=== PATIENT | male | born 1960 | race Caucasian/White ===

== ENCOUNTER 2023-04-26 12:12 | Outpatient (OUT) | payer OTHER, MEDICARE, SELFPAY ==
--- NOTE | 2023-04-26 12:19 | PM.CN ---
Consult Note: HPI Data of Consult Patient: known to practice within the last 3 years Consult date: 04/26/23 Primary Care Provider: HERB CHOWDARY Consult Narrative Reason for consult: back pain Narrative: Tariq is here for f/u of back pain. Pain is located left lower back. worse with standing and walking. He had second dx MBB left L4/5, L5/S1 on 04/10/23. He received 100% relief of pain for several hours after procedure. No radiculopathy . No new sensorimotor sx or new bowel or bladder issues. He would like to proceed with RFA. Procedure discussed in detail. He prefers no sedation. He also has right knee pain. He has had steroid injectiond without relief. He states orthopedics told him the gel injection would not work for him. We did discuss the GNB procedure and educational material was given. He would like to possibly proceed with this in several weeks. cc:: CC: AKILA RIVERA NP Review of Systems ROS Status of ROS 10 or more systems reviewed and unremarkable except as noted in history and below Musculoskeletal Reports: back pain and extremity pain Exam Constitutional Documenting provider has reviewed patient's vital signs: yes Common normals: no apparent distress, oriented x3, no limitations, healthy appearing, alert and well nourished General appearance: cooperative, comfortable and well developed Orientation/consciousness: Yes awake, Yes oriented to person, Yes oriented to place and Yes oriented to time HENDE Common normals: normocephalic, nasal mucous membranes and turbinates normal and moist oral mucous membranes Respiratory Common normals: normal respiratory effort, no retractions and no use of accessory muscles Effort & inspection: able to speak in complete sentences and symmetric chest movement Back & Pelvis Lumbar spine/lower back: normal to inspection, ROM limited, lumbar spinal tenderness, paraspinal muscle tenderness, paraspinal muscle spasm, straight leg raise negative bilaterally and other soft tissue findings (positive facet loading left) Other lumbar soft tissue findings laterality: left Other: muscle strength 5/5 bilat with intact sensation bilat LE Extremity Common normals: normal capillary refill and no pedal edema Right lower extremity: knee joint (right medial knee pain worse with ROM) Assessment and Plan Assessment and Plan (1) Knee osteoarthritis: (2) Lumbar spondylosis: Plan thermal RFA lumbar L4/5, L5/S1 left under fluoroscopy without sedation may benefit from future right GNB
== END 2023-04-26 12:13 ==
PROVIDERS: PCP Internal Medicine; Visit Provider Nurse Practitioner
DX: M47.816 Spondylosis without myelopathy or radiculopathy, lumbar region (principal); M17.11 Unilateral primary osteoarthritis, right knee
CPT/HCPCS: G0463

== ENCOUNTER 2023-05-29 11:02 | Outpatient (OUT) | payer OTHER, MEDICARE, SELFPAY ==
[2023-05-30 05:08] LABS: PSA, Free 2.68 ng/mL; Prostate Specific Ag 11.3 ng/mL (0.0-4.0)
== END 2023-05-29 11:03 | disposition home or self-care (01) ==
LOC: LAB 11:04
PROVIDERS: PCP Internal Medicine; Visit Provider Urology
DX: R97.20 Elevated prostate specific antigen [PSA] (principal)
CPT/HCPCS: 36415; 84153; 84154

== ENCOUNTER 2023-06-05 08:26 | Day surgery (SDC) | payer OTHER, MEDICARE, SELFPAY ==
[2023-06-05 08:39] VITALS: BP 158/107; PULSE 74; RESP 16; TEMP 36.8; O2SAT 97
[2023-06-05] MEDS: 0.9 % SODIUM CHLORIDE 500 ML 50 ML IV (08:53)
[2023-06-05] MEDS: METHYLPREDNISOLONE ACETATE 40 MG/ML VIAL INJ (09:37)
[2023-06-05] MEDS: BUPIVACAINE HCL 0.25% PF 25 MG/10 ML VIAL 4 ML INJ (09:37)
[2023-06-05] MEDS: LIDOCAINE HCL 2% 400 MG/20 ML MDV 8 ML INJ (09:37)
[2023-06-05 09:46] VITALS: BP 105/61; PULSE 75; RESP 17; O2SAT 94
[2023-06-05 09:49] VITALS: BP 105/66; PULSE 77; RESP 14; O2SAT 94
--- NOTE | 2023-06-05 10:15 | W.PM.PROCNOT ---
Date of procedure: 06/05/23 Pre-op diagnosis: Lumbar Spondylosis Post-op diagnosis: same Procedure: Left Lumbar 4/5 and 5/S1 Radiofrequency ablation Under fluoroscopic guidance Rhizotomy was created using radio frequency ablation at 80?C for 90 seconds 1 to 2 lesions created at each site. Post lesioning injection of 2 mL each of 0.25% Marcaine and 2% lidocaine with Depo-Medrol 40mg. 0.5 to 1 mL injected at each site IV in place Intravenous fluids: NS at KVO Anesthesia local 2% lidocaine Anesthesia Other: MAC Timeout process compliant After informed consent obtained.Patient brought to the procedure room placed in the prone position skin overlying the area was prepped and draped in a sterile fashion using betadine. 25 gauge needle was used to create a skin wheal over each of the targeted areas utilizing 2% lidocaine. A rhizotomy needle with a 10 mm active tip was inserted over each of the anesthetized areas and directed towards each of the medial branches accomplished under fluoroscopic guidance. after encountering the same we had positive sensory stimulation, negative motor stimulation was noted. lesions were then created. Post lesioning, steroid solution was injected needles removed. Patient was transferred to recovery room in stable condition to be discharged home after meeting criteria. Anesthesia: MAC Surgeon: Svetlana Blount Condition: stable
== END 2023-06-05 10:08 | disposition home or self-care (01) ==
PROVIDERS: PCP Internal Medicine; Visit Provider Anesthesiology Pain Medicine
DX: M47.816 Spondylosis without myelopathy or radiculopathy, lumbar region (principal)
CPT/HCPCS: 64635; 64636; J1030; J2704

== ENCOUNTER 2023-07-04 10:29 | Outpatient (OUT) | payer OTHER, MEDICARE, SELFPAY ==
--- NOTE | 2023-07-04 11:21 | P.CN_ITS ---
Consult Note: HPI Data of Consult Patient: known to practice within the last 3 years Requesting Physician: Michell Kennedy NP Primary Care Provider: Sp Washington DO Consult Narrative Reason for consult: f/u on left L4/5 L5/S1 RFA Narrative: Tariq Real a pleasant 63 year old male presents for follow up on low back pain and right knee pain. Patient had a left sided L4/5 L5/S1 RFA on 06/05/23 and is reporting 90% ongoing pain relief with increase in ROM, ability to stand for longer time, ability to walk further without intense pain since ablation. Patient continues to have right thigh and knee pain, has a history of femur surgery with hardware and has followed with Orthopedics in the past for knee injections without pain relief. Patient was told he is not a candidate for gel injections in that knee and would like to avoid surgery. cc:: CC: Michell Kennedy NP Review of Systems ROS Status of ROS 10 or more systems reviewed and unremarkable except as noted in history and below Musculoskeletal Reports: extremity pain PFSH PFSH Medical History (Updated 05/24/23 @ 13:58 by Herlinda Caba) Surgical History Meds Home Medications and Allergies Home Medications Medication Instructions Recorded Confirmed Type amlodipine 5 mg tablet 5 mg PO DAILY 04/27/23 06/05/23 History baclofen 10 mg tablet 10 mg PO BID 04/27/23 06/05/23 History coQ10 (liposomal ubiquinol) 100 100 mg PO QDAY 04/27/23 06/05/23 History mg/mL oral liquid gabapentin 100 mg capsule 100 mg PO DAILY 04/27/23 06/05/23 History insulin aspart U-100 100 unit/mL 16 unit subcut TID 04/27/23 06/05/23 History (3 mL) subcutaneous pen (Novolog FlexPen U-100 Insulin aspart) insulin glargine 100 unit/mL (3 60 unit subcut QPM 04/27/23 06/05/23 History mL) subcutaneous pen (Basaglar KwikPen U-100 Insulin) losartan 100 mg tablet 100 mg PO DAILY 04/27/23 06/05/23 History melatonin 10 mg tablet 15 mg PO DAILY 04/27/23 06/05/23 History metformin 1,000 mg tablet 1,000 mg PO BID 04/27/23 06/05/23 History multivitamin 1 tab PO DAILY 04/27/23 06/05/23 History pyridostigmine bromide 60 mg tablet 60 mg PO BID 04/27/23 06/05/23 History sertraline 100 mg tablet 100 mg PO DAILY 04/27/23 06/05/23 History tadalafil 10 mg tablet 10 mg PO DAILY PRN sexual activity 04/27/23 06/05/23 H istory Allergies Allergy/AdvReac Type Severity Reaction Status Date / Time morphine Allergy Unknown ITCHING Verified 04/27/23 08:29 pioglitazone [From Actos] Allergy Unknown Rash Verified 04/27/23 08:29 exenatide [From Byetta] AdvReac Intermediate Vomiting Verified 04/27/23 08:29 diazepam [From Valium] AdvReac Vomiting Verified 04/27/23 08:29 Exam Constitutional Documenting provider has reviewed patient's vital signs: yes Common normals: no apparent distress, oriented x3, healthy appearing, alert and well nourished General appearance: cooperative Nutritional appearance: overweight HENMT Common normals: normocephalic Head and scalp: normocephalic Mouth: oral and palatal mucosa normal Eye Common normals: PERRL Pupil: PERRL Neck & C-Spine Common normals: full ROM General: normal visual inspection Chest Common normals: inspection of chest normal Respiratory Common normals: normal respiratory effort, no retractions and no use of accessory muscles Back & Pelvis Thoracic spine/upper back: normal to inspection and thoracic ROM normal Lumbar spine/lower back: normal to inspection, lumbar ROM normal and pain with ROM (mild pain with facet loading manuever) Extremity Common normals: normal to inspection Right lower extremity: knee joint (limited ROM, pain with ROM and weight bearing 5/5 strength) Neuro Common normals: oriented x3, CN's II-XII intact bilaterally, moves all extremities, no focal motor deficits, no sensory deficits noted, deep tendon reflexes 2+ bilaterally and gait normal Sensorium/orientation: alert Motor exam: strength 5/5 throughout and no movement abnormalities noted Psych Common normals: mental status grossly normal, thought process normal, cooperative, affect normal, speech normal and activity/motor behavior normal Speech: normal speech Thought process: normal thought process Assessment and Plan Assessment and Plan (1) Knee osteoarthritis: Assessment and Plan: chronic right knee pain The patient has had over 3 months of moderate to severe right knee pain with functional impairment and inadequate response to conservative care including NSAIDS (unless there are contraindication such as concurrent blood thinners), multiple oral or topical pain medications, and home exercise program/physical therapy.?Patient has completed >6 weeks of guided home exercise program and/or formal physical therapy program without relief of their symptoms.? proceed with right genicular nerve block (2) Lumbar spondylosis: Assessment and Plan: Patient had a left sided L4/5 L5/S1 RFA on 06/05/23 and is reporting 90% ongoing pain relief with increase in ROM, ability to stand for longer time, ability to walk further without intense pain since ablation. -can repeat if beneficial >6 months as discussed with pt
== END 2023-07-04 10:30 | disposition home or self-care (01) ==
LOC: PM 10:30
PROVIDERS: PCP Internal Medicine; Visit Provider Nurse Practitioner
DX: M17.11 Unilateral primary osteoarthritis, right knee (principal); M25.561 Pain in right knee
CPT/HCPCS: G0463

== ENCOUNTER 2023-10-24 11:34 | Outpatient (OUT) | payer OTHER, MEDICARE, SELFPAY | END 2023-10-24 11:35 | disposition home or self-care (01) | LOC: PST 11:35 | PROVIDERS: PCP Internal Medicine; Visit Provider Surgery | DX: Z01.818 Encounter for other preprocedural examination (principal); Z86.010 Personal history of colon polyps; D64.9 Anemia, unspecified; R14.0 Abdominal distension (gaseous) ==

== ENCOUNTER 2023-10-31 07:00 | Day surgery (SDC) | payer OTHER, MEDICARE, SELFPAY ==
--- NOTE | 2023-10-31 | OP_ITS ---
OPERATION DATE: 10/31/2023 PREOPERATIVE DIAGNOSIS: Iron deficiency anemia, personal history of colon polyps. POSTOPERATIVE DIAGNOSIS: Small antral ulceration, as well as polyp at GE junction and ascending colon polyp, 4 mm. PROCEDURE: EGD with biopsy of polyp at GE junction. Colonoscopy to cecum with cold snare polypectomy x1 for a 4 mm ascending colon polyp. SURGEON: Duran Franklin M.D. ANESTHESIA: Monitored anesthesia care. ESTIMATED BLOOD LOSS: Less than 1 mL. INDICATIONS AND CONSENT: Patient is a 63-year-old male with a personal history of colon polyps as well as mild anemia. Indications, risks, benefits, alternatives of proceeding with EGD and colonoscopy were explained extensively to the patient, including the risks of bleeding, aspiration, esophageal/gastric/duodenal or colonic perforation or anesthetic complications. All of his questions were answered. Informed consent was obtained. PROCEDURE: Patient brought to the operating room, placed in the left lateral decubitus position. Monitored anesthesia care was provided. Bite block was placed in the patient?s mouth. Scope was inserted into the oropharynx. Under direct visualization, it was advanced into the esophagus, past the cricopharyngeus, down to the stomach. The stomach was insufflated with air. The pylorus was traversed down to the descending portion of the duodenum. There was no evidence of duodenitis or ulceration. There was no scarring within the pyloric channel. Scope was pulled back into the stomach and retroflexed. There was no significant hiatal hernia. Within the antrum, there was noted to be a small, superficial ulceration with no active bleeding or old blood. The GE junction was noted at approximately 40 cm. There was a polypoid area right at the GE junction. No evidence of Kimbrough?s changes or esophagitis. Biopsy of this was obtained with cold biopsy forceps with good hemostasis. The remainder of the esophagus was unremarkable. The scope was then withdrawn. Patient tolerated procedure well, was then positioned for colonoscopy. Rectal exam was performed, which showed no masses or blood. The scope was then inserted into the anal canal. Under direct visualization, it was advanced. With the aid of abdominal compression, it was advanced to the cecum where cecal markings were clearly identified. There was noted to be a good prep. Upon withdrawal of the scope, mucosal surfaces were carefully examined. Within the ascending colon, there was noted to be a 4 mm sessile polyp that was removed with cold snare with good hemostasis. There were no other mass lesions or polyps. No significant diverticulosis. The scope was retroflexed in the anal canal. There were noted to be some prominent rectal veins, no significant hemorrhoidal disease. The scope was then withdrawn. The patient tolerated procedure well, was sent to recovery room in good condition. Follow up colonoscopy likely in five years, due to the polyp and history of polyps. CC: Dr. Mp SEARS
[2023-10-31 07:05] VITALS: BP 154/99; PULSE 89; RESP 20; TEMP 35.8; O2SAT 98; BMI 32.1
[2023-10-31] MEDS: LACTATED RINGER'S SOLUTION 1,000 ML 50 ML IV (07:30)
[2023-10-31 09:07] VITALS: BP 87/46; PULSE 78; RESP 16; O2SAT 95
[2023-10-31 09:22] VITALS: BP 123/80; PULSE 87; RESP 16; O2SAT 97
[2023-10-31 09:37] VITALS: BP 128/85; PULSE 84; RESP 16; O2SAT 100
== END 2023-10-31 09:37 | disposition home or self-care (01) ==
PROVIDERS: PCP Internal Medicine; Visit Provider Surgery
PROC: (CPT 43239; principal; 2023-10-31 08:25)
DX: Z86.010 Personal history of colon polyps (principal); R14.0 Abdominal distension (gaseous); D50.9 Iron deficiency anemia, unspecified; K25.9 Gastric ulcer, unspecified as acute or chronic, without hemorrhage or perforation; K63.5 Polyp of colon; Z85.51 Personal history of malignant neoplasm of bladder; N40.1 Benign prostatic hyperplasia with lower urinary tract symptoms; N18.9 Chronic kidney disease, unspecified; E11.22 Type 2 diabetes mellitus with diabetic chronic kidney disease; R97.20 Elevated prostate specific antigen [PSA]; N52.9 Male erectile dysfunction, unspecified; R31.0 Gross hematuria; Z87.442 Personal history of urinary calculi; E78.5 Hyperlipidemia, unspecified; G20.A1 Parkinson's disease without dyskinesia, without mention of fluctuations; G47.33 Obstructive sleep apnea (adult) (pediatric); M47.816 Spondylosis without myelopathy or radiculopathy, lumbar region; E66.9 Obesity, unspecified; E11.42 Type 2 diabetes mellitus with diabetic polyneuropathy; R33.9 Retention of urine, unspecified; Z68.33 Body mass index [BMI] 33.0-33.9, adult; Z79.84 Long term (current) use of oral hypoglycemic drugs; Z79.899 Other long term (current) drug therapy; Z79.4 Long term (current) use of insulin
CPT/HCPCS: 43239; 45385; 88305; J2704

== ENCOUNTER 2024-01-26 09:15 | Outpatient (OUT) | payer OTHER, MEDICARE, SELFPAY ==
--- OUTSIDE RECORDS SUMMARY | 2024-01-26 09:19 | XMS_ITS | CCD ---
Author Name Unknown Address [address] [place] [address] Organization [facility] Care Team Providers Care 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 Name Role Phone PROVIDER, UNKNOWN Attending Unavailable PROVIDER, UNKNOWN Admitting Unavailable CARTER GODFREY Referring Unavailable SP CHOWDARY Primary Care Physician Unavailable Primary Care Provider Unavailrigoberto salmon Unavailable Primary Care Provider UnavailNOELLE Montero Attending Unavailable PELON COLES Referring Unavailable Sp Chowdary DO Primary Care Provider NOELLE VEGA Attending Unavailable ROBERTAINI, NOELLE Admitting Unavailable ZAMPINI, NOELLE Referring Unavailable ZAMPINI, NOELLE Referring Unavailable ZAMPINI, NOELLE Referring Unavailable SILVIA, NOELLE Attending Unavailable SP CHOWDARY Primary Care Unavailable Unavailable Primary Care Provider UnavailAlfonzo Read II Unavailable Sp Chowdary Unavailable MITCHSHMIPATHY ., LIANA Attending Britni vanatible ELLIE ., LIANA Admitting Britni DR SP Benítez Primary Care Unavailable Gema Otto Consulting Unavailable LUPEMIPATHY ., LIANA Consulting Britni vanatible EPI, DR SNOWDEN Primary Care Unavailable PAY ., DR WASHINGTON Admitting Unavailable PAY ., DR WASHINGTON Attending Unavailable PAY ., DR WASHINGTON Consulting Unavailable COLES ., DR BRID Admitting Unavailable COLES ., DR BIRD Attending Unavailable EPI, DR SNOWDEN Primary Care Unavailable EPI, DR SNOWDEN Primary Care Unavailable COLES ., DR BIRD Admitting Unavailable COLES ., DR BIRD Attending Unavailable COLES ., DR BIRD Consulting Unavailable WEST, DR JI Smallwood Consulting Unavailable COLES ., DR BIRD Consulting Unavailable COLES ., DR BIRD Attending Unavailable COLES ., DR BIRD Admitting Unavailable EPI, DR SNOWDEN Primary Care Unavailable HALKER ., RADHA Attending Unavailable HALKER ., RADHA Admitting Unavailable BALL, DR SNOWDEN Primary Care Unavailable COLES ., DR BIRD Consulting Unavailable COLES ., DR BIRD Attending Unavailable COLES ., DR BIRD Admtulio Unavailable BALL, DR SNOWDEN Primary Care Unavailable GARCIATAY Consulting Unavailable MCCORNACKGEMA Consulting Unavailable COLES ., DR BIRD Consulting Unavailable MISC, DR WILLIAMSON Admitting Unavailable RUELAS, DR RADHA Salmon Primary Care Unavailable MISC, DR WILLIAMSON Attending Unavailable MISC, DR WILLIAMSON Consulting Unavailable ZiebGema dallas Consulting Unavailable BALL, DR SNOWDEN Primary Care Unavailable COLES ., DR BIRD Consulting Unavailable COLES ., DR BIRD Admitting Unavailable COLES ., DR BIRD Attending Unavailable ZiebGema dallas Consulting Unavailable COLES ., DR BIRD Consulting Unavailable COLES ., DR BIRD Attending Unavailable COLES ., DR BIRD Admitting Unavailable BALL, DR SNOWDEN Primary Care Unavailable ZiebGema dallas Consulting Unavailable BALL, DR SNOWDEN Admitting Unavailable BALL, DR SNOWDEN Attending Unavailable BALL, DR SNOWDEN Consulting Unavailable BALL, DR SNOWDEN Primary Care Unavailable COLES ., DR BIRD Attending Unavailable COLES ., DR BIRD Consulting Unavailable COLES ., DR BIRD Admtulio Unavailable BALL, DR SNOWDEN Primary Care Unavailable JEFFERSON, DR JI Smallwood Consulting Unavailable HALKER ., RADHA Attending Unavailable HALKER ., RADHA Consulting Unavailable BALL, DR SNOWDEN Primary Care Unavailable HALKER ., RADHA Admitting Unavailable LAKSHMIPATHY ., NARENDPARVEEN Attending Britni vailable LAKSHMIPATHY ., NARENDRANATH Consulting Britni vailable LAKSHMIPATHY ., LIANA Admitting Britni vailable BALL, DR SNOWDEN Primary Care Unavailable LAKSHMIPATHY ., NARENDRANATH Attending Britni vailable LAKSHMIPATHY ., NARENDRANATH Consulting Britni vailable LAKSHMIPATHY ., NARENDDANAYATH Admitting Britni vailable BALL, DR SNOWDEN Primary Care Unavailable COLES ., DR BIRD Attending Unavailable COLES ., DR BIRD Consulting Unavailable COLES ., DR BIRD Admtulio Unavailable BALL, DR SNOWDEN Primary Care Unavailable Gema Otto Consulting Unavailable RUELAS, DR RADHA Salmon Admitting Unavailable RUELAS, DR RADHA Salmon Attending Unavailable RUELAS, DR RADHA Salmon Primary Care Unavailable ZiebGema dallas Consulting Unavailable RUELAS, DR RADHA Salmon Consulting Unavailable BALL, DR SNOWDEN Primary Care Unavailable COLES ., DR BIRD Admitting Unavailable COLES ., DR BIRD Attending Unavailable COLES ., DR BIRD Consulting Unavailable WEST, DR JI Smallwood Consulting Unavailable AGUBOSIM, DAT Consulting Unavailable DORKOSKIE, CATRINA Consulting Unavailable BALL, DR SNOWDEN Primary Care Unavailable COLES ., DR BIRD Consulting Unavailable COLES ., DR BIRD Admitting Unavailable COLES ., DR BIRD Attending Unavailable Zieber, Gema Consulting Unavailable DORKOSKIE, CATRINA Consulting Unavailable LANGENBERG, REYNALDO Consulting Unavailable MCCORNACK, GEMA Consulting Unavailable BALL, DR SNOWDEN Primary Care Unavailable COLES ., DR BIRD Consulting Unavailable COLES ., DR BIRD Admtulio Unavailable COLES ., DR BIRD Attending Unavailable WEST, DR JI Smallwood Consulting Unavailable LAKSHMIPATHY ., NARENDRANATH Attending Britni vailable LAKSHMIPATHY ., NARENDRANATH Consulting Britni vailable LAKSHMIPATHY ., NARENDDANAYATH Admitting Britni vailable BALL, DR SNOWDEN Primary Care Unavailable Epi, DO Snowden Primary Care Provider MD Pelon Coles Attending Provider [phone] Sp Chowdary Primary Care Unavailable [place], Alfonzo Adrian Attending Unavailabl e [place], Alfonzo Adrian Admitting Unavailabl e Ball, Sp Primary Care Unavailable [place], Alfonzo Adrian Attending Unavailabl e [place], Alfonzo Adrian Admitting Unavailabl e Coles, Pelon Attending Unavailable Coles, Pelon Admitting Unavailable Ball, Sp Primary Care Unavailable COLES, Pelon Mujica Attending Unavailable COLES, Pelon Mujica Referring Unavailable COLES, Pelon Mujica Admitting Unavailable COLES, Pelon Mujica Attending Unavailable COLES, Pelon Mujica Admitting Unavailable NILL, Duran Mujica Attending Unavailable NILL, Duran Mujica Attending Unavailable NILL, Duran Mujica Attending Unavailable COLES, Pelon Mujica Attending Unavailable COLES, Pelon Mujica Attending Unavailable COLES, Pelon Mujica Attending Unavailable COLES, Pelon Mujica Attending Unavailable COLES, Pelon Mujica Attending Unavailable COLES, Pelon Mujica Attending Unavailable COLES, Pelon R Attending Unavailable COLES, Pelon R Attending Unavailable COLES, Pelon R Attending Unavailable Allergies Allergy Classification Reported Allergen(s) Allergy Type Date of Onset Reaction(s) Facility (20 sources) diazePAM; Translations: [DIAZEPAM] Drug Allergy 7 Vomiting, [facility] ([facility] sources) exenatide; Translations: [BYETTA] Drug Allergy 7 Vomiting [facility] Repository (20 sources) pioglitazone; Translations: [PIOGLITAZONE] Drug Allergy 7 Eruption of skin (disorder), Other, Swelling [facility] Repository (20 sources) exenatide; Translations: [exenatide] Drug Allergy 3 Vomiting [facility] (12 sources) Morphine; Translations: [morphine] Drug Allergy 4 Other (qualifier value), Itching (finding) [facility] (2 sources) diazePAM; Translations: [Valium] Drug Allergy [facility] Repository (1 source) Morphine Drug Allergy [facility] Repository (2 sources) pioglitazone; Translations: [Actos] Drug Allergy [facility] Repository (7 sources) Vancomycin Drug Allergy 4 Unknown, Unknown Reaction [facility] (3 sources) patient allergy list reviewed by nurse or physicia Propensity to adverse reactions 9 Comment:Done [facility] Other (1 source) Unable to Assess Drug allergy (disorder) 2 [facility] Repository (1 source) Byetta Prefilled Pen; Translations: [Byetta Prefilled Pen] Propensity to adverse reactions (disorder) [facility] Repository Medications Current Medications Medication Drug Class(es) Dates Sig (Normalized) Sig (Original) 0.25 MG, 0.5 MG Dose 3 ML semaglutide 0.68 MG/ML Pen Injector [Ozempic] (8 sources) Start: 12-17-2023 Ozempic 2 mg/3 mL (0.25 mg or 0.5 mg dose) subcutaneous solution Refills(s) 0 Start Date: 12/17/23 Status: Ordered Start: 04-24-2023 inject 0.5 mg by sub cutaneous injection every week Ozempic (0.25 or 0.5 MG/DOSE) 2 MG/3ML 0.5mg Subcutaneous weekly for 28 days Apr, Not-Taking Start: 04-24-2023 inject 0.5 mg by sub cutaneous injection every week Ozempic (0.25 or 0.5 MG/DOSE) 2 MG/3ML 0.5mg Subcutaneous weekly for 28 days Apr, Active Start: 04-24-2023 Start: 04-24-2023 Ozempic (0.25 or 0.5 MG/DOSE) 2 MG/3ML 0.25 MG Subcutaneous weekly for 28 days Apr, Active amLODIPine 5 mg oral tablet (20 sources) Dihydropyridine Calcium Channel Nicolasa Start: 01-08-2024 take 5 mg by mouth once daily Amlodipine Active 5 MG PO Daily January 08, 2024 12:00am Start: 11-01-2017 End: 09-26-2022 take 5 mg by mouth once daily amlodipine 5 mg, Oral, D aily, Refills(s) 0, High blood pressure Start Date: 11/01/17 Status: Ordered Start: 11-01-2017 take 2.5 mg by mouth once sade y amlodipine 2.5 mg, Oral, Daily, Refills(s) 0, High blood pressure Start Date: 11/01/17 Status: Ordered Comment on above: Take 5 mg by mouth. Take 5 mg by mouth o nce daily. AMLODIPINE BESYLATE-VALSARTAN ORAL (2 sources) AMLODIPINE BESYLATE-VALSARTAN ORAL Take 2.5 mg by mouth. 0 Active Basaglar KwikPen (8 sources) Start: 12-11-19 Basaglar KwikPen Refills(s) 0 Start Date: 12/11/22 Status: Ordered cephalexin 500 mg oral capsule (1 source) Cephalosporin Antibacterial Start: 09-11-20 End: 09-14-20 take 1 capsule by mouth three times daily cephALEXin (KEFLEX) 500 mg capsule Take 1 capsule by mouth three times daily for 3 days. 9 capsule 0 09/11/2022 09/14/2022 Active Comment on above: Take 1 capsule by [facility] three times daily for 3 days. ciprofloxacin 500 mg oral tablet (4 sources) Quinolone Antimicrobial Start: 10-02-20 End: 10-09-20 Cipro 500 mg Tab 500 mg = 1 tab(s), Oral, q12hr, Start 3 days prior to procedure, X 7 day(s), # 14 tab(s), Refills(s) 0, Pharmacy: [facility]/pharmacy #[id number], 177, cm, 06/12/23 16:16:00 EDT, Height/Length Dosing, 111, kg, 12/18/22 15:22:00 EST, Weight Dosing Start Date: 10/02/23 Stop Date: 10/09/23 Status: Ordered Start: 03-13-2022 take 1 tablet by martha once daily Cipro 500 mg Tab 500 mg = 1 tab(s), Oral, Daily, take 1 day prior to procedure and 1 tab after procedure, # 2 tab(s), Refills(s) 0, Pharmacy: [facility]/pharmacy #[id number], 177, cm, 03/13/22 15:23:00 EDT, Height/Length Dosing, 112, kg, 03/13/22 15:23:00 EDT, Weight Dosing Start Date: 03/13/22 Status: Ordered gabapentin 100 mg oral capsule (20 sources) Anti-epileptic Agent Start: 01-08-2024 take 100 mg by mouth once daily Gabapentin Active 100 MG PO Daily January 08, 2024 12:00am Start: 11-01-2017 take 100 mg by mouth three times daily gabapentin 100 mg, Oral, TID, Refills(s) 0, Pain Start Date: 11/01/17 Status: Ordered take 1 capsule by mo [facility] once daily at bedtime Gabapentin 100 MG TAKE 1 CAPSULE AT BEDTIME Orally Once a day for 90 days Active Comment on above: Take 100 mg by mouth three times daily. 3 ml insulin aspart, human 100 unt/ml pen injector (20 sources) Insulin Analog Start: 01-08-2024 inject 10 [IU] by subcutaneous injection three times daily before mealtime Insulin Aspart (Niacinamide) (Fiasp Flextouch U-100 Insulin) 100 unit/mL (3 mL) insulin pen Active 10 UNIT SUBCUT Three times daily January 08, 2024 12:00am before meals Start: 10-01-2023 NovoLog as dir ected, Refills(s) 0 Start Date: 10/01/23 Status: Ordered Start: 07-20-2023 inject 10 [IU] by torres bcutaneous injection three times daily before mealtime Fiasp FlexTouch 100 UNIT/ML 10 units Subcutaneous AC, three times daily for 90 days Jul, Active Start: 08-14-2022 NOVOLOG FLEXPE N U-100 INSULIN 100 unit/mL (3 mL) Inject 18 Units subcutaneously as directed. 0 08/14/2022 Active NovoLOG Active Comment on above: Inject 18 Units subc utaneously as directed. 3 ml insulin glargine 100 unt/ml pen injector (20 sources) Insulin Analog Start: 01-08-2024 Insulin Glargine (Lantus Solostar U-100 Insulin) 100 unit/mL (3 mL) insulin pen Active 50 UNIT SUBCUT Daily January 08, 2024 12:00am Start: 11-23-2023 Lantus SoloSta r 100 UNIT/ML 50 units Subcutaneous daily for 30 days Nov, Active Start: 08-05-2022 BASAGLAR KWIKP EN U-100 INSULIN 100 unit/mL (3 mL) INJECT 50 UNITS SUBCUTANEOUSLY ONCE A DAY 0 08/05/2022 Active Basaglar KwikPen 100 UNIT/ML as directed Subcutaneous Active insulin glargine (LANTUS SOLOSTAR, BASAGLAR KWIKPEN) 100 unit/mL (3 mL) Basaglar KwikPen U-100 Insulin 100 unit/mL (3 mL) subcutaneous INJECT 55 UNITS SUBCUTANEOUSLY ONCE A DAY 0 Active Comment on above: Basaglar KwikPen U-1 00 Insulin 100 unit/mL (3 mL) subcutaneous INJECT 55 UNITS SUBCUTANEOUSLY ONCE A DAY INJECT 50 UNITS SUBC UTANEOUSLY ONCE A DAY Humalog (7 sources) Insulin Analog Start: 11-01-2017 Humalog SubCutaneous, TIDAC, Refills(s) 0, High blood sugar Start Date: 11/01/17 Status: Ordered Insulin Lispro ( HUMALOG) 100 UNIT/ML SOCT Inject under the skin See admin instructions. Sliding scale 0 Active losartan potassium 100 mg oral tablet (20 sources) Angiotensin 2 Receptor Nicolasa Start: 01-08-2024 take 100 mg by mouth once daily Losartan Active 100 MG PO Daily January 08, 2024 12:00am Start: 11-01-2017 take 100 mg by mouth once sade y losartan 100 mg, Oral, Daily, Refills(s) 0, High blood pressure Start Date: 11/01/17 Status: Ordered Comment on above: Take 100 mg by mouth once daily. Melatonin (20 sources) Start: 03-13-2022 Melatonin Once a day (at bedtime), Refills(s) 0 Start Date: 03/13/22 Status: Ordered Melatonin 10 MG as directed Orally Not-Taking/PRN Melatonin 10 MG as directed Orally Not-Taking melatonin 10 mg tab Take 20 mg by mouth. 0 Active Comment on above: Take 20 mg by mouth. metFORMIN hydrochloride 1000 mg oral tablet (20 sources) Biguanide Start: 01-08-2024 take 1000 mg by mouth twice daily Metformin Active 1000 MG PO Twice daily January 08, 2024 12:00am Start: 11-01-2017 take 1000 mg by mout h once daily metformin 1,000 mg, Oral, Daily, Refills(s) 0, High blood sugar Start Date: 11/01/17 Status: Ordered Start: 11-01-2017 take 1000 mg by mout h twice daily metformin 1,000 mg, Oral, BID, Refills(s) 0, High blood sugar Start Date: 11/01/17 Status: Ordered Comment on above: Take 1,000 mg by martha th twice daily. 24 hr metoprolol succinate 50 mg extended release oral tablet (20 sources) beta-Adrenergic Nicolasa Start: 01-08-2024 take 50 mg by mouth once daily Metoprolol Succinate Active 50 MG PO Daily January 08, 2024 12:00am Start: 12-11-2022 take 1 tablet by martha th once daily metoprolol 50 mg ER Tab 50 mg = 1 tab(s), Oral, Daily, Refills(s) 0 Start Date: 12/11/22 Status: Ordered Start: 11-01-2017 take 25 mg by mouth once daily Lopressor 25 mg, Oral, Daily, Refills(s) 0, High blood pressure Start Date: 11/01/17 Status: Ordered take 1 capsule by mo uth once daily Metoprolol Succinate 50 MG 1 capsule Orally Once a day Active Comment on above: Take 50 mg by mouth once daily. morphine sulfate 15 mg extended release oral tablet (5 sources) Opioid Agonist Start: 11-02-2017 take 1 tablet by mouth every twelve hours morphine 15 mg ER Tab 15 mg = 1 tab(s), Oral, q12hr, Refills(s) 0, Pain Start Date: 11/02/17 Status: Ordered take 1 tablet by martha th every four hours as needed for pain morphine 15 MG tablet Take 15 mg by mout h every 4 hours as needed for Pain. 0 Active Multivitamin (Daily Multi-Vitamin) tablet (1 source) Start: 01-08-2024 take 1 tablet by mouth once daily Multivitamin (Daily Multi-Vitamin) tablet Active 1 TAB PO Daily January 08, 2024 12:00am Multivitamins and Minerals (11 sources) Start: 11-02-2017 take 1 tablet by mouth once daily Multivitamins and Minerals 1 tablet, Oral, Daily, Refill(s) 0, Prophylaxis Start Date: 11/02/17 Status: Ordered pantoprazole 40 mg delayed release oral tablet (4 sources) Proton Pump Inhibitor Start: 11-14-2023 take 1 tablet by mouth once daily Pantoprazole [address] Tab 40 mg = 1 tab(s), Oral, Daily, FOR 8 WEEKS, Refills(s) 0 Start Date: 11/14/23 Status: Ordered phenazopyridine hydrochloride 200 mg oral tablet (1 source) Start: 09-11-2022 End: 09-14-2022 take 1 tablet by mouth every eight hours as needed phenazopyridine (PYRIDIUM) 200 mg tablet Take 1 tablet by mouth three times daily as needed for up to 3 days. 9 tablet 0 09/11/2022 09/14/2022 Active Comment on above: Take 1 tablet by martha three times daily as needed for up to 3 days. pravastatin sodium 40 mg oral tablet (20 sources) HMG-CoA Reductase Inhibitor Start: 01-08-2024 take 40 mg by mouth once daily Pravastatin Active 40 MG PO Daily January 08, 2024 12:00am Start: 11-01-2017 take 40 mg by mouth once daily pravastatin 40 mg, Oral, Daily, Refills(s) 0, High cholesterol Start Date: 11/01/17 Status: Ordered Comment on above: Take 40 mg by mouth once daily. Mestinon (10 sources) Start: 05-02-2021 Mestinon 60 mg , Daily, Refills(s) 0 Start Date: 05/02/21 Status: Ordered Start: 11-01-2017 take 60 mg by mouth three times daily pyridostigmine 60 mg, Oral, TID, myasthenia gravis, Refills(s) 0 Start Date: 11/01/17 Status: Ordered sertraline 100 mg oral tablet (20 sources) Serotonin Reuptake Inhibitor Start: 01-08-2024 take 100 mg by mouth once daily Sertraline Active 100 MG PO Daily January 08, 2024 12:00am Start: 11-01-2017 take 100 mg by mouth twice daily sertraline 100 mg, Oral, BID, Refills(s) 0, Depression Start Date: 11/01/17 Status: Ordered Start: 11-01-2017 take 100 mg by mouth once sade y sertraline 100 mg, Oral, Daily, Refills(s) 0, Depression Start Date: 11/01/17 Status: Ordered Sertraline HCl 1 00 MG TAKE 1 TABLET AT BEDTIME for 90 Active Comment on above: Take 100 mg by mouth once daily. sildenafil 100 mg oral tablet (1 source) Phosphodiesterase 5 Inhibitor Start: 4 Viagra 100 mg Tab 100 mg = 1 tab(s), Oral, As Directed, PRN erectily dysfunction, Take on tab 1 hour before sexual activity, # 30 tab(s), Refills(s) 3, Pharmacy: [facility]/pharmacy #[id number], 177, cm, 12/17/23 11:33:00 EST, Height/Length Dosing, 104, kg, 12/17/23 11:33:00 EST, Weight Dosing Start Date: 12/17/23 Status: Ordered tadalafil 10 mg oral tablet (20 sources) Phosphodiesterase 5 Inhibitor Start: 4 take 10 mg by mouth once daily Tadalafil Active 10 MG PO Daily January 08, 2024 12:00am Start: 08-17-2023 take 1 tablet by martha th every twenty-four hours Cialis 20 mg Tab 20 mg = 1 tab(s), Oral, As Directed, Take 1 tab 1 hour as directed prior to sexual activity. Don't exceed 1 tab in a 24 hour period., # 30 tab(s), Refills(s) 11, Pharmacy: [facility] [id number], 177, cm, 06/12/23 16:16:00 EDT, Height/Length Dosing, 111, kg, 12/18/22 15:22:00 EST, Weight Dosing Start Date: 08/17/23 Status: Ordered Start: 03-13-2022 take 1 tablet by martha th every twenty-four hours Cialis 20 mg Tab 20 mg = 1 tab(s), Oral, As Directed, Take 1 tab 1 hour as directed prior to sexual activity. Don't exceed 1 tab in a 24 hour period., # 30 tab(s), Refills(s) 3, Pharmacy: [facility] [id number], 177, cm, 03/13/22 15:23:00 EDT, Height/Length Dosing,... Start Date: 11/15/22 Status: Ordered Start: 03-13-2022 take 0.5 tablet by m outh once daily Tadalafil (CIALIS) 20 mg tab(s) Take 10 mg by mouth once daily. Patient takes 0.5 tablet once a day 0 03/13/2022 Active Start: 03-23-2017 End: 09-26-2022 take 2 tablets by mouth once daily Tadalafil 5 mg tablet Take 10 mg by mouth once daily. 0 03/23/2017 09/26/2022 Discontinued Start: 03-23-2017 take 1 tablet by mouth once da maria guadalupe Tadalafil 5 mg tablet Take 1 tablet by mouth once daily. 0 03/23/2017 Active take 1 tablet by martha every twenty-four hours Tadalafil 10 MG 1 tablet as needed Orally Once a day Active Comment on above: Take 1 tablet by martha th once daily. Take 10 mg by mouth once daily. Take 10 mg by mouth once daily. Patient takes 0.5 tablet once a day tamsulosin hydrochloride 0.4 mg oral capsule (3 sources) alpha-Adrenergic Nicolasa Start: 12-11-2022 take 1 capsule by mouth once daily Flomax 0.4 mg Cap 0.4 mg = 1 cap(s), Oral, Daily, Refills(s) 0 Start Date: 12/11/22 Status: Ordered Start: 09-11-2022 End: 09-26-2022 take 1 capsule by mouth once daily at bedtime tamsulosin (FLOMAX) 0.4 mg Take 1 capsule by mouth daily at bedtime. 30 capsule 0 09/11/2022 09/26/2022 Discontinued Comment on above: Take 1 capsule by mo [facility] daily at bedtime. Completed/Discontinued Medications Medication Drug Class(es) Dates Sig (Normalized) Sig (Original) acetaminophen 325 mg / oxyCODONE hydrochloride 5 mg oral tablet (2 sources) Opioid Agonist Start: 09-11-2022 End: 09-26-2022 take 1 tablet by mouth every six hours as needed for pain oxyCODONE-acetamin ophen (PERCOCET) 5-325 mg tablet Indications: Acute post-operative pain Take 1 tablet by mouth every 6 hours as needed for pain (for severe pain). This medication can cause constipation. 5 tablet 0 09/11/2022 09/26/2022 Discontinued Comment on above: Take 1 tablet by martha every 6 hours as needed for pain (for severe pain). This medication can cause constipation. CoQ-10 100 MG (2 sources) CoQ-10 100 MG as directed Orally Not-Taking docusate sodium 100 mg oral capsule (2 sources) Start: 09-11-2022 End: 09-26-2022 take 1 capsule by mouth twice daily docusate sodium (COLACE) 100 mg capsule Take 1 capsule by mouth twice daily. 28 capsule 0 09/11/2022 09/26/2022 Discontinued Comment on above: Take 1 capsule by mo [facility] twice daily. K-Effervescent 25 mEq oral tablet, effervescent (6 sources) Start: 12-18-2022 End: 12-13-2023 take 1 tablet by mouth twice daily K-Effervescent 25 mEq oral tablet, effervescent 25 mEq = 1 tab(s), Oral, BID, X 90 day(s), # 180 tab(s), Refills(s) 3, Pharmacy: [facility]/pharmacy #[id number], 177, cm, 12/18/22 15:22:00 EST, Height/Length Dosing, 111, kg, 12/18/22 15:22:00 EST, Weight Dosing Start Date: 12/18/22 Stop Date: 12/13/23 Status: Ordered lidocaine hydrochloride 0.02 mg/mg topical gel (1 source) Antiarrhythmic, Amide Local Anesthetic Start: 09-26-2022 End: 09-26-2022 lidocaine urojet 2 % 11 mL topical gel (XYLOCAINE, GLYDO) meloxicam 15 mg oral tablet (15 sources) Nonsteroidal Anti-inflammatory Drug Start: 12-14-2022 take 1 tablet by mouth every twenty-four hours Meloxicam 15 MG 1 tablet Orally Once a day Nov, Not-Taking/PRN Multi Complete - (14 sources) Multi Complete - as directed Orally Active Multivitamin preparation (8 sources) multivitamin (MULTI-DAY ORAL) Take by mouth. 0 Active Comment on above: Take by mouth. ozempic (0.25 or 0.5 mg/dose) 2 mg/3ml solution pen-injector (2 sources) Start: 04-24-20 inject 0.5 mg by subcutaneous injection every week as needed Ozempic (0.25 or 0.5 MG/DOSE) 2 MG/3ML 0.5mg Subcutaneous weekly for 28 days Apr, Not-Taking/PRN solifenacin succinate 10 mg oral tablet (4 sources) Cholinergic Muscarinic Antagonist Start: 12-11-19 take 1 tablet by mouth once daily solifenacin 10 mg Tab 30 EA, TAKE 1 TABLET BY MOUTH EVERY DAY, Refills(s) 0 Start Date: 12/11/22 Status: Ordered Start: 09-22-2022 solifenacin 10 mg tablet sulfamethoxazole 800 mg / trimethoprim 160 mg oral tablet (1 source) Dihydrofolate Reductase Inhibitor Antibacterial, Sulfonamide Antimicrobial Start: 09-26-2022 End: 09-26-2022 sulfamethoxazole-trimethopri m 800-160 mg 1 tablet (BACTRIM DS,SEPTRA DS) Start: 09-26-2022 End: 09-26-2022 sulfamethoxazole-trimethopri m 800-160 mg 1 tablet (BACTRIM DS,SEPTRA DS) triamcinolone acetonide 40 mg/ml injectable suspension (20 sources) Corticosteroid Start: 12-14-2022 Kenalog-40 Nov, 120 mg Start: 12-14-2022 Start: 09-10-2019 Start: 09-10-2019 Kenalog -40 mg Aug, 40 mg ubidecarenone 100 mg oral ca psule (20 sources) CoQ-10 100 MG as directed Orally Not-Taking/PRN CoQ-10 100 MG as directed Orally Not-Taking Comment on above: Take 100 mg by mouth once daily. Problems Active Problems Problem Classification Problem Date Documented Date Episodic/Chronic Calculus of urinary tract (20 sources) Kidney stone; Translations: [Calculus of kidney and ureter ] Onset: 2 10-29-2019 Episodic Cancer of bladder (20 sources) Malignant neoplasm, overlapping lesion of bladder; Translations: [Malignant tumor of urinary bladder] Onset: 2 10-29-2019 Chronic Cancer of bladder (5 sources) History of malignant neoplasm of bladder; Translations: [Personal history of malignant neoplasm of bladder] Onset: 2 Episodic Cancer of other urinary organs (1 source) Malignant neoplasm of urinary organ; Translations: [Malignant neoplasm of urinary organ, unspecified] Chronic Cancer; other and unspecified primary (11 sources) H/O: malignant neoplasm 08-24-2020 Episodic Cardiac dysrhythmias (6 sources) Postural orthostatic tachycardia syndrome ; Translations: [POTS (postural orthostatic tachycardia syndrome)] Onset: 2 08-24-2022 Chronic Chronic kidney disease (6 sources) Chronic kidney disease 10-01-2023 Chronic Deficiency and other anemia (17 sources) Anemia; Translations: [Anemia, unspecified] Onset: 3 Episodic Diabetes mellitus with complications (20 sources) Polyneuropathy due to type 2 diabetes mellitus; Translations: [Type 2 diabetes mellitus with diabetic polyneuropathy] Onset: 4 Chronic Diabetes mellitus without complication (20 sources) Type 2 diabetes mellitus; Translations: [Type 2 diabetes mellitus without complication] Onset: 7 08-21-2019 Chronic Disorders of lipid metabolism (20 sources) Hyperlipidemia; Translations: [Hyperlipidemia, unspecified] Onset: 8 08-24-2022 Chronic Esophageal disorders (5 sources) Gastro-esophageal reflux disease with esophagitis; Translations: [Gastro-esophageal reflux disease with esophagitis, without bleeding] Onset: 3 Chronic Essential hypertension (20 sources) Hypertensive disorder; Translations: [Essential (primary) hypertension] Onset: 2 10-29-2019 Chronic Fluid and electrolyte disorders (3 sources) Hyperkalemia; Translations: [Hyperkalemia] Onset: 2 Episodic Fracture of lower limb (1 source) Closed fracture of ankle; Translations: [Unspecified closed fracture of ankle] Episodic Gastroduodenal ulcer (except hemorrhage) (5 sources) Gastric ulcer; Translations: [Gastric ulcer, unspecified as acute or chronic, without hemorrhage or perforation] Onset: 3 Chronic Genitourinary symptoms and ill-defined conditions (20 sources) Blood in urine; Translations: [Gross hematuria] Onset: 2 Episodic Hyperplasia of prostate (20 sources) Benign prostatic hypertrophy with outflow obstruction; Translations: [Benign prostatic hyperplasia with lower urinary tract symptoms] Onset: 8 Chronic Immunizations and screening for infectious disease (1 source) Vaccination given; Translations: [Encounter for immunization] Episodic Mood disorders (20 sources) Depressive disorder; Translations: [Recurrent major depression in full remission] Onset: 6 12-11-2022 Chronic Open wounds of extremities (3 sources) Open wound of hand except fingers without complication; Translations: [Puncture wound without foreign body of right hand, initial encounter] Episodic Osteoarthritis (20 sources) Arthritis; Translations: [Arthritis of right knee] Onset: 2 10-29-2019 Chronic Other aftercare (3 sources) intermediate project manager (current) use of insulin; Translations: [Type 2 diabetes mellitus without complication, with long-term current use of insulin (HCC)] Onset: 2 Episodic Other aftercare (1 source) Long-term current use of drug therapy; Translations: [Other remote computer terminal 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 (current) drug therapy] Episodic Other aftercare (3 sources) High risk drug monitoring status; Translations: [intermediate project manager (current) use of opiate analgesic] Episodic Other aftercare (6 sources) Long-term current use of insulin; Translations: [intermediate project manager (current) use of insulin] 01-08-2024 Episodic Other and unspecified benign neoplasm (14 sources) Polyp of descending colon; Translations: [Benign neoplasm of descending colon] Episodic Other and unspecified benign neoplasm (5 sources) Benign neoplasm of colon; Translations: [Polyp of colon] Episodic Other and unspecified benign neoplasm (12 sources) Polyp of colon; Translations: [Polyp of colon] Episodic Other and unspecified benign neoplasm (2 sources) Benign neoplasm of ascending colon Episodic Other and unspecified benign neoplasm (2 sources) Benign neoplasm of descending colon Episodic Other and unspecified benign neoplasm (3 sources) Benign neoplasm of long bones of lower limb; Translations: [Benign neoplasm of long bones of right lower limb] Episodic Other and unspecified benign neoplasm (3 sources) Benign neoplasm of descending colon; Translations: [Benign neoplasm of descending colon] Episodic Other and unspecified benign neoplasm (13 sources) History of polyp of colon; Translations: [Personal history of colonic polyps] Onset: 3 Episodic Other and unspecified benign neoplasm (5 sources) Benign neoplasm of ascending colon; Translations: [Benign neoplasm of ascending colon] Onset: 3 Episodic Other circulatory disease (8 sources) Postural orthostatic tachycardia syndrome 12-11-2022 Episodic Other congenital anomalies (1 source) Congenital anomaly of cartilage; 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 Other connective tissue disease (10 sources) Lateral epicondylitis; Translations: [Lateral epicondylitis, left elbow] Episodic Other connective tissue disease (1 source) Other muscle spasm; Translations: [OTHER MUSCLE SPASM] Onset: 3 Episodic Other diseases of kidney and ureters (1 source) Hyperparathyroidism due to renal insufficiency; Translations: [Secondary hyperparathyroidism of renal origin] Chronic Other diseases of kidney and ureters (1 source) Secondary hyperparathyroidism of renal origin; Translations: [Secondary hyperparathyroidism of renal origin (HCC)] Onset: 2 Chronic Other disorders of stomach and duodenum (17 sources) Gastroparesis syndrome; Translations: [Gastroparesis] Episodic Other endocrine disorders (8 sources) Hyperparathyroidism 12-11-2022 Chronic Other endocrine disorders (1 source) Disorder of adrenal gland; Translations: [Other specified disorders of adrenal gland] Onset: 2 Chronic Other gastrointestinal disorders (1 source) Swollen abdomen; Translations: [Abdominal distension (gaseous)] Onset: 3 Episodic Other gastrointestinal disorders (6 sources) Abdominal bloating 10-05-2023 Episodic Other injuries and conditions due to external causes (1 source) History of fall; Translations: [History of falling] Episodic Other male genital disorders (16 sources) Male erectile dysfunction, unspecified; Translations: [Erectile dysfunction] Onset: 2 Chronic Other nervous system disorders (1 source) Other chronic pain; Translations: [OTHER CHRONIC PAIN] Onset: 3 Chronic Other nervous system disorders (1 source) Other acute postprocedural pain; Translations: [Acute post-operative pain] Onset: 2 Episodic Other non-traumatic joint disorders (11 sources) Arthralgia of the pelvic region and thigh; Translations: [Pain in left hip] Onset: 8 Episodic Other non-traumatic joint disorders (1 source) Shoulder joint pain; Translations: [Pain in left shoulder] Episodic Other nutritional; endocrine; and metabolic disorders (20 sources) Body mass index 30+ - obesity; Translations: [Body mass index (BMI) 34.0-34.9, adult] Onset: 2 Chronic Other nutritional; endocrine; and metabolic disorders (4 sources) Body mass index (BMI) 34.0-34.9, adult; Translations: [BMI 34.0-34.9,adult] Onset: 2 Chronic Other nutritional; endocrine; and metabolic disorders (16 sources) Obesity; Translations: [Other obesity due to excess calories] Onset: 5 10-05-2023 Chronic Other nutritional; endocrine; and metabolic disorders (3 sources) Other obesity due to excess calories Chronic Other nutritional; endocrine; and metabolic disorders (1 source) Morbid obesity; Translations: [Morbid (severe) obesity due to excess calories] Onset: 5 Chronic Other nutritional; endocrine; and metabolic disorders (1 source) Obese class II; Translations: [Body mass index 35.0-35.9, adult] Onset: 5 Chronic Other nutritional; endocrine; and metabolic disorders (4 sources) Obese class I; Translations: [Body mass index 34.0-34.9, adult] Onset: 5 Chronic Other nutritional; endocrine; and metabolic disorders (1 source) Simple obesity ; Translations: [Other obesity due to excess calories] Onset: 5 Chronic Other nutritional; endocrine; and metabolic disorders (1 source) Abnormal weight loss; Translations: [Abnormal weight loss] Episodic Other screening for suspected conditions (not mental disorders or infectious disease) (20 sources) Raised prostate specific antigen; Translations: [Elevated prostate specific antigen [PSA]] Onset: 7 Episodic Parkinson`s disease (9 sources) Parkinson's disease; Translations: [Parkinson's disease] Onset: 7 10-01-2023 Chronic Residual codes; unclassified (20 sources) Obstructive sleep apnea syndrome; Translations: [Obstructive sleep apnea (adult) (pediatric)] Onset: 2 Chronic Residual codes; unclassified (6 sources) Obstructive sleep apnea (adult) (pediatric); Translations: [KUNAL (obstructive sleep apnea)] Onset: 2 Chronic Spondylosis; intervertebral disc disorders; other back problems (20 sources) Lumbar spondylosis; Translations: [Spondylosis without myelopathy or radiculopathy, lumbar region] Onset: 3 Chronic Spondylosis; intervertebral disc disorders; other back problems (2 sources) Low back pain; Translations: [Low back pain, unspecified] Onset: 5 Episodic Sprains and strains (2 sources) Strain of muscle, fascia and tendon of left hip, initial encounter Episodic Superficial injury; contusion (2 sources) Contusion of shoulder region; Translations: [Contusion of shoulder region] Episodic Syncope (1 source) Syncope and collapse; Translations: [Syncope and collapse] Episodic Unclassified (1 source) POTS (postural orthostatic tachycardia syndrome); Translations: [POTS (postural orthostatic tachycardia syndrome)] Onset: 2 Unclassified (1 source) LOW BACK PAIN, UNSPECIFIED; Translations: [LOW BACK PAIN, UNSPECIFIED] Onset: 2 Unclassified (1 source) Long-term current use of drug therapy; Translations: [Long-term (current) use of other medications] Onset: 8 Unclassified (1 source) Unilateral post-traumatic osteoarthritis, right knee; Translations: [Unilateral post-traumatic osteoarthritis, right knee] Onset: 3 Unclassified (1 source) Pain in left hip; Translations: [Pain in left hip] Onset: 3 Past or Other Problems Problem Classification Problem Date Documented Da te Episodic/Chronic Allergic reactions (1 source) Urticaria; Translations: [Unspecified urticaria] Onset: 05-04-2014 Episodic Headache; including migraine (1 source) Headache; Translations: [Headache, unspecified] Onset: 02-25-2014 Episodic Malaise and fatigue (1 source) Malaise and fatigue; Translations: [Other malaise and fatigue] Onset: 11-24-2017 Episodic Mycoses (1 source) Candidal balanitis; Translations: [Candidal balanitis] Resolved: 10-13-2020 Episodic Nausea and vomiting (5 sources) Nausea with vomiting, unspecified; Translations: [Nausea and vomiting] Onset: 06-22-2016 Episodic Neoplasms of unspecified nature or uncertain behavior (1 source) Neoplasm of uncertain behavior of skin; Translations: [Neoplasm of uncertain behavior of skin] Onset: 04-09-2019 Episodic Nonspecific chest pain (2 sources) Chest pain; Translations: [Chest pain, unspecified] Onset: 11-03-2015 Episodic Other aftercare (1 source) Other usp (current) drug therapy; Translations: [OTH PLATE GAUGER CURRENT DRUG THERAPY] Onset: 05-29-2022 Episodic Other aftercare (1 source) prison (current) use of oral hypoglycemic drugs; Translations: [[facility] USE ORAL HYPOGLYCEMIC DX] Onset: 05-08-2022 Episodic Other connective tissue disease (1 source) Trochanteric bursitis of left hip; Translations: [Trochanteric bursitis, left hip] Onset: 04-08-2018 Episodic Other connective tissue disease (1 source) Pain in limb; Translations: [Pain in right upper arm] Onset: 11-03-2015 Episodic Other connective tissue disease (1 source) Pain in right lower limb; Translations: [Pain in right leg] Onset: 07-28-2013 Episodic Other connective tissue disease (1 source) Pain in left lower limb; Translations: [Pain in left leg] Onset: 07-28-2013 Episodic Other diseases of kidney and ureters (1 source) Hydroureter; Translations: [HYDROURETER] Onset: 10-02-2022 Episodic Other nervous system disorders (1 source) Ataxia; Translations: [Ataxia, unspecified] Onset: 02-25-2014 Episodic Other non-traumatic joint disorders (6 sources) Pain in left hip; Translations: [PAIN IN LEFT HIP] Onset: 07-26-2022 Episodic Other non-traumatic joint disorders (3 sources) Pain in right knee; Translations: [Pain in right knee] Onset: 12-14-2022 Episodic Other non-traumatic joint disorders (1 source) Arthralgia of the lower leg; Translations: [Pain in right knee] Onset: 04-10-2016 Episodic Other skin disorders (1 source) Atrophoderma; Translations: [Unspecified hypertrophic and atrophic condition of skin] Onset: 10-31-2018 Episodic Residual codes; unclassified (1 source) Requires influenza virus vaccination; Translations: [Need for prophylactic vaccination and inoculation, Influenza] Onset: 08-31-2017 Episodic Results Test Name Value Interpretation Reference Range Facil ity Ambulatory Visit Summaryon 0 12-17-2023 Ambulatory Visit Summary DAT LOPEZ :1960 [id number] Visit Date:12/17/2023 Ambulatory Visit Instructions Your Diagnosis Elevated PSA BPH with obstruction/lower urinary tract symptoms Kidney stones History of kidney stones Erectile dysfunction History of bladder cancer Tests Performed XR Abdomen 1 View -- Results Pending -- Please visit your patient portal for your results or contact your primary care physician. Your Care Team Attending Physician - Pelon COLES MD Primary Care Physician - SP CHOWDARY DO This Is Your Medications List sildenafil (Viagra 100 mg Tab) Contact prescribing physician if questions or concerns amlodipine gabapentin insulin aspart (NovoLog) insulin glargine (Basaglar KwikPen) losartan metformin metoprolol (metoprolol 50 mg ER Tab) multivitamin with minerals (Multivitamins and Minerals) pantoprazole (Pantoprazole [address] Tab) pravastatin semaglutide (Ozempic 2 mg/3 mL (0.25 mg or 0.5 mg dose) subcutaneous solution) sertraline [Image Removed: STOP]Stop taking these medications tadalafil (Cialis 20 mg Tab) Procedures Performed Transrectal biopsy of prostate using ultrasound guidance (11/27/2023), Colonoscopy (10/31/2023), EGD - esophagogastroduodenoscop y (10/31/2023), Cystoscopy (08/30/2021), Cystoscopy (08/24/2020), Cystoscopy (12/16/2019), Colonoscopy (09/2019), Colonoscopy (10/2017), Biopsy of prostate (2016), bladder tumor (2006), right leg bone tumor (2001), ankle surgery, Lithotripsy, Transurethral water vapour ablation of prostate. Discharge Vitals Heart Rate (Peripheral) 70 Respiratory Rate 16 Blood Pressure 151/100 Height 177 cm Height 70 in Weight 104 kg Weight 228.8 lb BMI 33.2 What to do next Scheduled Follow-Up Appointments Sunday 10:30 AM EST With: Pelon COLES MD Where: [facility] Patient Educationon 12-17-19 24 Patient Education Urology Erectile Dysfunction Erectile dysfunction (ED) is the inability to get or keep an erection in order to have sexual intercourse. ED is considered a symptom of an underlying disorder and is not considered a disease. ED may include: ? Inability to get an erection. ? Lack of enough hardness of the erection to allow penetration. ? Loss of erection before sex is finished. What are the causes? This condition may be caused by: ? Physical causes, such as: ? Artery problems. This may include heart disease, high blood pressure, atherosclerosis, and diabetes. ? Hormonal problems, such as low testosterone. ? Obesity. ? Nerve problems. This may include back or pelvic injuries, multiple sclerosis, Parkinson's disease, spinal cord injury, and stroke. ? Certain medicines, such as: ? Pain relievers. ? Antidepressants. ? Blood pressure medicines and water pills (diuretics). ? Cancer medicines. ? Antihistamines. ? Muscle relaxants. ? Lifestyle factors, such as: ? Use of drugs such as marijuana, cocaine, or opioids. ? Excessive use of alcohol. ? Smoking. ? Lack of physical activity or exercise. ? Psychological causes, such as: ? Anxiety or stress. ? Sadness or depression. ? Exhaustion. ? Fear about sexual performance. ? Guilt. What are the signs or symptoms? Symptoms of this condition include: ? Inability to get an erection. ? Lack of enough hardness of the erection to allow penetration. ? Loss of the erection before sex is finished. ? Sometimes having normal erections, but with frequent unsatisfactory episodes. ? Low sexual satisfaction in either partner due to erection problems. ? A curved penis occurring with erection. The curve may cause pain, or the penis may be too curved to allow for intercourse. ? Never having nighttime or morning erections. How is this diagnosed? This condition is often diagnosed by: ? Performing a physical exam to find other diseases or specific problems with the penis. ? Asking you detailed questions about the problem. ? Doing tests, such as: ? Blood tests to check for diabetes mellitus or high cholesterol, or to measure hormone levels. ? Other tests to check for underlying health conditions. ? An ultrasound exam to check for scarring. ? A test to check blood flow to the penis. ? Doing a sleep study at home to measure nighttime erections. How is this treated? This condition may be treated by: ? Medicines, such as: ? Medicine taken by mouth to help you achieve an erection (oral medicine). ? Hormone replacement therapy to replace low testosterone levels. ? Medicine that is injected into the penis. Your health care provider may instruct you how to give yourself these injections at home. ? Medicine that is delivered with a short applicator tube. The tube is inserted into the opening at the tip of the penis, which is the opening of the urethra. A tiny pellet of medicine is put in the urethra. The pellet dissolves and enhances erectile function. This is also called MUSE (medicated urethral system for erections) therapy. ? Vacuum pump. This is a pump with a ring on it. The pump and ring are placed on the penis and used to create pressure that helps the penis become erect. ? Penile implant surgery. In this procedure, you may receive: ? An inflatable implant. This consists of cylinders, a pump, and a reservoir. The cylinders can be inflated with a fluid that helps to create an erection, and they can be deflated after intercourse. ? A semi-rigid implant. This consists of two silicone rubber rods. The rods provide some rigidity. They are also flexible, so the penis can both curve downward in its normal position and become straight for sexual intercourse. ? Blood vessel surgery to improve blood flow to the penis. During this procedure, a blood vessel from a different part of the body is placed into the penis to allow blood to flow around (bypass) damaged or blocked blood vessels. ? Lifestyle changes, such as exercising more, losing weight, and quitting smoking. Follow these instructions at home: Medicines ? Take [id number] and prescription medicines only as told by your health care provider. Do not increase the dosage without first discussing it with your health care provider. ? If you are using self-injections, do injections as directed by your health care provider. Make sure you avoid any veins that are on the surface of the penis. After giving an injection, apply pressure to the injection site for 5 minutes. ? Talk to your health care provider about how to prevent headaches while taking ED medicines. These medicines may cause a sudden headache due to the increase in blood flow in your body. General instructions ? Exercise regularly, as directed by your health care provider. Work with your health care provider to lose weight, if needed. ? Do not use any products that contain nicotine or tobacco. These products include cig (more content not included)... Normal [facility] Urology Office/Clinic Noteon 12-17-2023 Urology Office/Clinic Note Chief Complaint S/P TRUS/Bx HPI Staff S/P TRUS/Bx 11/27/23 Pt is here today to review results. DX: Elevated PSA, Prostate Nodule, Hx of Kidney Stones, BPH, Hx of Bladder Cancer & ED *Effer-K 25 mEq bid therapy-stopped taking a couple months ago due to interaction w/Ozempic. & Cialis 20mg PRN Denies post op complications. States he passed a kidney stone 1-2wks ago. Denies current flank pain. History of Present Illness Tests reviewed: reviewed path report I have reviewed the previous health record information and history for this patient from Dr. Coles. I have reviewed and verified the staff HPI to be accurate for this encounter. Review of Systems PHQ Score Initial Depression Screen Score: 0 SCORE ROS - Provider Constitutional: denies weight loss, denies hot flashes. Eyes: denies eye problems. Gastrointestinal: denies nausea, denies vomiting. Cardiovascular: denies chest pain or angina. Integumentary: no dryness Musculoskeletal: denies musculoskeletal symptoms. ENMT: denies otolaryngeal symptoms. Respiratory: no shortness of breath. Heme/Lymph: denies easy bleeding tendency, denies easy bruising tendency. Psychiatric: no confusion, no anxiety. Genitourinary: See HPI. Physical Exam Vitals & Measurements HR: 70(Peripheral) RR: 16 BP: 151/100 HT: 70 in HT: 177 cm WT: 104 kg WT: 228.8 lb BMI: 33.2 General Appearance: alert, no distress, well nourished, well developed male. Genitourinary: normal scrotum, normal testes, normal urethra, normal epididymis, normal vas deferens/spermatic cord. Flank Pain: none. Bladder: nonpalpable. Assessment/Plan Pt here with his today. 1. Elevated PSA (R97.20: Elevated prostate specific antigen [PSA]) PSA: 04/15/21 - 12.82 02/18/22 - 13.80 12/05/22 - 10.5 & 28.4%. Neg TRUS/bx 2016. Had neg MRI done 2018 and 04/20/22. JANE 03/13/22: nodule at R mid base MRI of Prostate 09/11/23 - PI-RADS 4, focal area involving the posterior lateral aspect of the Rt peripheral zone at the level of the base measuring 9x4mm, no gross extracapsular extension seen. Prostate volume 140mL. S/p TRUS/bx 11/27/23 - benign. The pathology report was reviewed with the patient in detail today. There is no evidence of malignancy and no further evaluation of the tissue removed is planned. All questions were answered and the report discussed in terms that the patient could understand. Discussed we will continue to monitor PSA level annually. -PSA and JANE in 1 yr 2. BPH with obstruction/lower urinary tract symptoms (N40.1: Benign prostatic hyperplasia with lower urinary tract symptoms) S/p Rezum 12/2019. S/p Cysto 06/12/23 - Moderate prostatic hypertrophy with long lateral lobes. Visually enlarged and nearly touching each other. Part of median lobe protrudes into the bladder. Not currently taking any BPH meds. 3. Kidney stones (N20.0: Calculus of kidney) KUB 02/22/23 - a few tiny stones in the Lt kidney. Was taking Effer-K 25 mEq bid, stopped this a few months ago due to Ozempic likely causing stomach ulcer. States he can restart Effer-K in 1 month. Admits he passed a stone a few weeks ago. Denies current flank pain. Will continue to monitor for stones. -KUB in 1 yr 4. History of kidney stones (Z87.442: Personal history of urinary calculi) S/p cysto/L UD/L ureteroscopy/Holmium laser litho of L ureteral calculus and mult renal calculus/stone basket extraction/stent change done 06/08/22. Perc neph done also. 24 hr urine done 10/19/22: low citric acid, slightly elevated ox, slightly elevated urine Na. 5. Erectile dysfunction (N52.9: Male erectile dysfunction, unspecified) Taking Cialis 20mg PRN. Does not feel this works well. Discussed options for ED, including switching to Viagra, erection pumps, MUSE intraurethral pellet, intracorporal injection therapy, and surgical options. Pt states he would like to try switching to Viagra first. -D/c Cialis -Begin Viagra 100mg prn. Discussed the medication side effects, and the patient will monitor closely for these, as well as for symptom improvement. If severe side effects occur, the medication should be stopped and the office notified. 6. History of bladder cancer (Z85.51: Personal history of malignant neoplasm of bladder) Last TURBT was in 2006. [1] Most recent Cysto/Cytol 06/12/23 - neg. Follow-up With When Contact Information Pelon COLES MD, URL [facility] [address] [place] [address] [phone] Additional Instructions: 1 yr w/ PSA and KUB Patient Education Erectile Dysfunction I, Sahra Daugherty, personally scribed for Dr. Coles on 12/17/2023 12:55:15. . Documentation recorded by the scribe, Sahra Daugherty, accurately reflects the services(s) I performed and decisions made by me. Authenticated by Dr. Coles on 12/17/2023 12:57:24. Problem List/Past Medical History Ongoing Abdominal bloating Anemia Antral ulcer Arthritis Benign n (more content not included)... Normal [facility] Comment on above: Result Comment: Elec tronically Signed By: Pelon COLES MD\.br\Date and Time Signed: 12/17/23 12:57 EST\.br\Electronically Co-Signed By: Sahra Daugherty\.br\Date and Time Co-Signed: 12/17/23 12:55 EST Prostate Histology ([facility]) on 12-07-2023 Prostate Histology Diagnosis Info Invalid Interpretation Code [facility] Comment on above: Result Comment: A:Pr ostate,Left Lateral Base:Needle Biopsy Interpretation - - Benign prostatic tissue (see comment). MicroScopic Description - B:Prostate,Left Lateral Mid:Needle Biopsy Interpretation - - Benign prostatic tissue. MicroScopic Description - C:Prostate,Left Lateral [place]:Needle Biopsy Interpretation - - Benign prostatic tissue. MicroScopic Description - D:Prostate,Left Base:Needle Biopsy Interpretation - - Benign prostatic tissue (see comment). MicroScopic Description - E:Prostate,Left Mid:Needle Biopsy Interpretation - - Benign prostatic tissue (see comment). MicroScopic Description - F:Prostate,Left [place]:Needle Biopsy Interpretation - - Benign prostatic tissue. MicroScopic Description - G:Prostate,Right Base:Needle Biopsy Interpretation - - Benign prostatic tissue with patchy chronic inflammation. MicroScopic Description - H:Prostate,Right Mid:Needle Biopsy Interpretation - - Benign prostatic tissue. MicroScopic Description - I:Prostate,Right [place]:Needle Biopsy Interpretation - - Benign prostatic tissue. MicroScopic Description - J:Prostate,Right Lateral Base:Needle Biopsy Interpretation - - Benign prostatic tissue (see comment). MicroScopic Description - K:Prostate,Right Lateral Mid:Needle Biopsy Interpretation - - Benign prostatic tissue (see comment). MicroScopic Description - L:Prostate,Right Lateral [place]:Needle Biopsy Interpretation - - Benign prostatic tissue. MicroScopic Description - Gross Description Site ID:A color trammell-white fixative Formalin cores 1 units cm Site ID:B color trammell-white fixative Formalin cores 1 units cm Site ID:C color trammell-white fixative Formalin cores 1 units cm Site ID:D color trammell-white fixative Formalin cores 1 units cm Site ID:E color trammell-white fixative Formalin cores 1 units cm Site ID:F color trammell-white fixative Formalin cores 1 units cm Site ID:G color trammell-white fixative Formalin cores 3 units cm Site ID:H color trammell-white fixative Formalin cores 1 units cm Site ID:I color trammell-white fixative Formalin cores 1 units cm Site ID:J color trammell-white fixative Formalin cores 3 units cm Site ID:K color trammell-white fixative Formalin cores 2 units cm Site ID:L color trammell-white fixative Formalin cores 1 units cm A, D, E, J and K: PIN4 reviewed. CPT code: 52196 x 12 26875 x 5 Electronically signed by : on: 12/07/2023 13:49:50 Performed By: #### 1 [id number] ####[id number] [place] [address] Consent for Procedure/Surger yon 11-29-2023 Consent for Procedure/Surgery [id number] Normal [facility] Prostate Histology ([facility]) on 11-28-2023 PH Method of Extraction Needle Biopsy Normal [facility] Comment on above: Performed By: #### 1 [id number] ####[facility] [address] [place] [address] PH Number of Jars 2 Invalid Interpretation Code [facility] Comment on above: Performed By: #### 1 [id number] ####[facility] [address] [place] [address] PH Specimen 1 R Base Prostate Normal [facility] Comment on above: Performed By: #### 1 [id number] ####[facility] [address] [place] [address] PH Specimen 10 L Lat Mid Prost Normal [facility] Comment on above: Performed By: #### 1 [id number] ####[facility] [address] [place] [address] PH Specimen 11 L Apx Prostate Normal [facility] Comment on above: Performed By: #### 1 [id number] ####[facility] [address] [place] [address] PH Specimen 12 L Lat Apx Prost Normal [facility] Comment on above: Performed By: #### 1 [id number] ####[facility] [address] [place] [address] PH Specimen 2 R Lat Bse Prost Normal [facility] Comment on above: Performed By: #### 1 [id number] ####[facility] [address] [place] [address] PH Specimen 3 R Mid Prostate Normal [facility] Comment on above: Performed By: #### 1 [id number] ####[facility] [address] [place] [address] PH Specimen 4 R Lat Mid Prost Normal [facility] Comment on above: Performed By: #### 1 [id number] ####[facility] [address] [place] [address] PH Specimen 5 R Apx Prostate Normal [facility] Comment on above: Performed By: #### 1 [id number] ####[facility] [address] [place] [address] PH Specimen 6 R Lat Apx Prost Normal [facility] Comment on above: Performed By: #### 1 [id number] ####[facility] [address] [place] [address] PH Specimen 7 L Base Prostate Normal [facility] Comment on above: Performed By: #### 1 [id number] ####[facility] [address] [place] [address] PH Specimen 8 L Lat Bse Prost Normal [facility] Comment on above: Performed By: #### 1 [id number] ####[facility] [address] [place] [address] PH Specimen 9 L Mid Prostate Normal [facility] Comment on above: Performed By: #### 1 [id number] ####[facility] [address] [place] [address] PH Type of Service Technical Only Normal [facility] Comment on above: Performed By: #### 1 [id number] ####[facility] [address] [place] [address] Ambulatory Visit Summaryon 0 11-27-2023 Ambulatory Visit Summary DAT LOPEZ :1960 Visit Date:11/27/2023 Ambulatory Visit Instructions Your Diagnosis Elevated PSA Prostate nodule History of kidney stones BPH with obstruction/lower urinary tract symptoms History of bladder cancer Erectile dysfunction Your Care Team Attending Physician - Pelon COLES MD Primary Care Physician - SP CHOWDARY DO This Is Your Medications List potassium bicarbonate (K-Effervescent 25 mEq oral tablet, effervescent) Contact prescribing physician if questions or concerns amlodipine gabapentin insulin aspart (NovoLog) insulin glargine (Basaglar KwikPen) losartan metformin metoprolol (metoprolol 50 mg ER Tab) multivitamin with minerals (Multivitamins and Minerals) pantoprazole (Pantoprazole [address] Tab) pravastatin sertraline tadalafil (Cialis 20 mg Tab) Procedures Performed Transurethral insertion of prostatic urethral lift implant (11/27/2023), Colonoscopy (10/31/2023), EGD - esophagogastroduodenoscop y (10/31/2023), Cystoscopy (08/30/2021), Cystoscopy (08/24/2020), Cystoscopy (12/16/2019), Colonoscopy (09/2019), Colonoscopy (10/2017), Biopsy of prostate (2016), bladder tumor (2006), right leg bone tumor (2002), ankle surgery, Lithotripsy, Transurethral water vapour ablation of prostate. Discharge Vitals Heart Rate (Peripheral) 73 Blood Pressure 149/79 Height 177 cm Height 70 in Weight 104 kg Weight 228.8 lb BMI 33.2 What to do next Scheduled Follow-Up Appointments Sunday 10:30 AM EST With: SANKET PRECIADO, Pelon Mujica Where: [facility] Ciro Normal [facility] Patient Educationon 11-27-19 Patient Education Oncology Transrectal Ultrasound-Guided Prostate Biopsy, Care After The following information offers guidance on how to care for yourself after your procedure. Your health care provider may also give you more specific instructions. If you have problems or questions, contact your health care provider. What can I expect after the procedure? After the procedure, it is common to have: ? Pain and discomfort near your rectum, especially while sitting. ? [place]-colored urine due to small amounts of blood in your urine. ? A burning feeling while urinating. ? Blood in your stool (feces) or bleeding from your rectum. ? Blood in your semen. Follow these instructions at home: Medicines ? Take mlus-ylh-wvbtccf and prescription medicines only as told by your health care provider. ? If you were given a sedative during your procedure, it can affect you for several hours. Do not drive or operate machinery until your health care provider says that it is safe. ? If you were prescribed an antibiotic medicine, take it as told by your health care provider. Do not stop using the antibiotic even if you start to feel better. Activity ? Return to your normal activities as told by your health care provider. Ask your health care provider what activities are safe for you. ? Ask your health care provider when it is okay for you to resume sexual activity. ? You may have to avoid lifting. Ask your health care provider how much you can safely lift. General instructions ? Drink enough fluid to keep your urine pale yellow. ? Watch your urine, stool, and semen for new or increased bleeding. ? Keep all follow-up visits. This is important. Contact a health care provider if: ? You have any of the following: ? Blood clots in your urine or stool. ? Blood in your urine more than 2 weeks after the procedure. ? Blood in your semen more than 2 months after the procedure. ? New or increased bleeding in your urine, stool, or semen. ? Severe pain in your abdomen. ? Your urine smells bad or unusual. ? You have trouble urinating. ? Your lower abdomen feels firm. ? You have problems getting an erection. ? You have nausea or you vomit. Get help right away if: ? You have a fever or chills. This could be a sign of infection. ? You have bright red urine. ? You have severe pain that does not get better with medicine. ? You cannot urinate. Summary ? After this procedure, it is common to have pain and discomfort around your rectum, especially while sitting. ? You may have blood in your urine and stool after the procedure. ? It is common to have blood in your semen after this procedure. ? Get help right away if you have a fever or chills. This could be a sign of infection. This information is not intended to replace advice given to you by your health care provider. Make sure you discuss any questions you have with your health care provider. Document Revised: 05/01/2022 Document Reviewed: 05/01/2022 FREECULTR Patient Education ? 2022 [employer]. [facility] Office/Clinic Noteon 11-27-2023 Urology Office/Clinic Note Chief Complaint TRUS/ bx HPI Staff Trus/bx MRI of prostate 09/11/23 History of Present Illness Tests reviewed: none I have reviewed the previous health record information and history for this patient from Dr. Coles. I have reviewed and verified the staff HPI to be accurate for this encounter. Review of Systems PHQ Score Initial Depression Screen Score: 0 SCORE ROS - Provider Constitutional: denies weight loss, denies hot flashes. Eyes: denies eye problems. Gastrointestinal: denies nausea, denies vomiting. Cardiovascular: denies chest pain or angina. Integumentary: no dryness Musculoskeletal: denies musculoskeletal symptoms. ENMT: denies otolaryngeal symptoms. Respiratory: no shortness of breath. Heme/Lymph: denies easy bleeding tendency, denies easy bruising tendency. Psychiatric: no confusion, no anxiety. Genitourinary: See HPI. Physical Exam Vitals & Measurements HR: 73(Peripheral) BP: 149/79 HT: 70 in HT: 177 cm WT: 104 kg WT: 228.8 lb BMI: 33.2 General Appearance: alert, no distress, well nourished, well developed male. Genitourinary: normal scrotum, normal testes, normal urethra, normal epididymis, normal vas deferens/spermatic cord. Flank Pain: none. Bladder: nonpalpable. Procedure Operative Information Anesthesia Type: Local Procedure: Transrectal Ultrasound and Transrectal Ultrasound-Guided Biopsy of the Prostate Complications: None Surgical risks, benefits, details of the procedure have been explained to the patient. Full informed consent has been obtained. Intraoperative Information Prepped: The patient was brought into the office suite and placed in the modified left lateral [place] position. The patient was draped appropriately. 80 mg Gentamicin IM injection administered. Procedure: Then 2% Xylocaine jelly was used for intrarectal anesthesia. After waiting several minutes, a well lubricated ultrasound probe was introduced per rectum. The prostate was carefully evaluated in the AP and Sagittal views. Volume: 96.3mL Specimens Removed: A total of 16 biopsies were taken, 6 biopsies taken from R base, and sent to pathology. Postoperative Information The patient tolerated the procedure well and was discharged home in satisfactory condition. The patient was instructed to finish antibiotics, avoid strenuous activity, and go to the emergency room for gross bleeding, fever, or chills. Radiology Report Procedure: Transrectal US guided needle biopsy of the prostate Narrative: Ultrasound probe is introduced and performed in the longitudinal and transverse plains. The prostatic capsule and seminal vesicles appear to be within normal limits. Ultrasound guidance was then utilized to obtain 12 biopsies. These were sent to pathology for evaluation. The gland measures: 63.2 MM Length, 65.6 MM Width, 44.4 MM Depth, with a calculated volume of 96.3 CC. The peripheral zone demonstrates: No abnormalities Rest of the prostate demonstrates: No abnormalities Assessment/Plan 1. Elevated PSA (R97.20: Elevated prostate specific antigen [PSA]) PSA: 04/15/21 - 12.82 02/18/22 - 13.80 12/05/22 - 10.5 & 28.4%. Neg TRUS/bx 2016. Had neg MRI done 2018 and 04/20/22. MRI of Prostate 09/11/23 - PI-RADS 4, focal area involving the posterior lateral aspect of the Rt peripheral zone at the level of the base measuring 9x4mm, no gross extracapsular extension seen. Prostate volume 140mL. Pt had IO TRUS/bx today wo complications. Abx taken prior. -F/u scheduled 12/14/23 to review path report 2. Prostate nodule (N40.2: Nodular prostate without lower urinary tract symptoms) Rt mid base per JANE 03/13/22. -See #1 3. History of kidney stones (Z87.442: Personal history of urinary calculi) S/p cysto/L UD/L ureteroscopy/Holmium laser litho of L ureteral calculus and mult renal calculus/stone basket extraction/stent change done 06/08/22. he had perc neph done also. 24 hr urine done 10/19/22: low citric acid, slightly elevated ox, slightly elevated urine Na. KUB 02/22/23 - a few tiny stones in the Lt kidney Taking Effer-K 25 mEq bid. 4. BPH with obstruction/lower urinary tract symptoms (N40.1: Benign prostatic hyperplasia with lower urinary tract symptoms) S/p Rezum 12/2019. S/p Cysto 06/12/23 - Moderate prostatic hypertrophy with long lateral lobes. Visually enlarged and nearly touching each other. Part of median lobe protrudes into the bladder. Not currently taking any BPH meds. 5. History of bladder cancer (Z85.51: Personal history of malignant neoplasm of bladder) Last TURBT was in 2006. 6. Erectile dysfunction (N52.9: Male erectile dysfunction, unspecified) Cialis 10mg PRN. Follow-up With When Contact Information Pelon COLES MD, URL [facility] [address], [place] [address] [phone] Additional Instructions: review path on 12/14/23 Patient Education Transrectal Ultrasound-Guided Prostate Biopsy, Care After ISahra, personally scribed for Dr. Coles on (more content not included)... Normal [facility] Comment on above: Result Comment: Elec tronically Signed By: Pelon COLES MD\.br\Date and Time Signed: 11/27/23 16:43 EST\.br\Electronically Co-Signed By: Sahra Daugherty\.br\Date and Time Co-Signed: 11/27/23 16:39 EST Insurance Correspondenceon 0 11-26-2023 Insurance Correspondence [id number] F [facility] Visit Summaryon 1 01-15-2023 Ambulatory Visit Summary DAT LOPEZ :1960 Visit Date:11/14/2023 Ambulatory Visit Instructions Your Diagnosis Benign neoplasm of ascending colon Antral ulcer GERD with esophagitis Your Care Team Attending Physician - KARLEY PRECIADO, Duran Mujica Primary Care Physician - SP CHOWDARY DO This Is Your Medications List Contact prescribing physician if questions or concerns amlodipine gabapentin insulin aspart (NovoLog) insulin glargine (Basaglar KwikPen) losartan metformin metoprolol (metoprolol 50 mg ER Tab) multivitamin with minerals (Multivitamins and Minerals) pantoprazole (Pantoprazole [address] Tab) potassium bicarbonate (K-Effervescent 25 mEq oral tablet, effervescent) pravastatin sertraline tadalafil (Cialis 20 mg Tab) Procedures Performed Colonoscopy (10/31/2023), EGD - esophagogastroduodenoscop y (10/31/2023), Cystoscopy (08/30/2021), Cystoscopy (08/24/2020), Cystoscopy (12/16/2019), Colonoscopy (09/2019), Colonoscopy (10/2017), Biopsy of prostate (2016), bladder tumor (2006), right leg bone tumor (2001), ankle surgery, Lithotripsy, Transurethral water vapour ablation of prostate. What to do next Scheduled Follow-Up Appointments Sunday 3:30 PM EST With: SANKET PRECIADO, Pelon Mujica Where: [facility] [address] [place] [id number]- \.br\ Medications\.br \ What How Much When Instructions\.b r\ Unchanged amlodipine 5 Milligram By Mouth Every day Contact prescribing physician if questions or concerns \.br\ Unchanged gabapentin 100 Milligram By Mouth 3 times a day Contact prescribing physician if questions or concerns \.br\ Unchanged insulin aspart (NovoLog) as directed Contact prescribing physician if questions or concerns \.br\ Unchanged insulin glargine (Basaglar KwikPen) Contact prescribing physician if questions or concerns \.br\ Unchanged losartan 100 Milligram By Mouth Every day Contact prescribing physician if questions or concerns \.br\ Unchanged metformin 1,000 Milligram By Mouth Every day Contact prescribing physician if questions or concerns \.br\ Unchanged metoprolol (metoprolol 50 mg ER Tab) 1 Tablets By Mouth Every day Contact prescribing physician if questions or concerns \.br\ Unchanged multivitamin with minerals (Multivitamins and Minerals) 1 tablet By Mouth Every day Contact prescribing physician if questions or concerns \.br\ Unchanged pantoprazole (Pantoprazole [address] Tab) 1 Tablets By Mouth Every day FOR 8 WEEKS Contact prescribing physician if questions or concerns \.br\ Unchanged potassium bicarbonate (K-Effervescent 25 mEq oral tablet, effervescent) 1 Tablets By Mouth 2 times a day Duration: 90 Days Contact prescribing physician if questions or concerns \.br\ Unchanged pravastatin 40 Milligram By Mouth Every day Contact prescribing physician if questions or concerns \.br\ Unchanged sertraline 100 Milligram By Mouth 2 times a day Contact prescribing physician if questions or concerns \.br\ Unchanged tadalafil (Cialis 20 mg Tab) 1 Tablets By Mouth As Directed Take 1 tab 1 hour as directed prior to sexual activity. Don't exceed 1 tab in a 24 hour period. Contact prescribing physician if questions or concerns \.br\ Allergies\.br\ Actos (Rash)\.br\ Byetta Prefilled Pen (Nausea and vomiting)\.br\ Valium (Nausea and vomiting)\.br\ morphine (Itchy)\.br\ Problems\.br\ Ongoing - Any problem that you are currently receiving treatment for.\.br\ Abdominal bloating\.br\ Anemia\.br\ Antral ulcer\.br\ Arthritis\.br\ Benign neoplasm of ascending colon\.br\ Bladder cancer\.br\ BMI 33.0-33.9,adult \.br\ BPH with obstruction/low er urinary tract symptoms\.br\ Chronic kidney disease\.br\ Depression\.br\ Diabetes mellitus, type 2\.br\ Elevated PSA\.br\ Erectile dysfunction\.br \ GERD with esophagitis\.br \ Gross hematuria\.br\ History of bladder cancer\.br\ History of colon polyps\.br\ History of kidney stones\.br\ Hyperlipidemia\ .br\ Hyperparathyroi dism\.br\ Hypertension\.b r\ Kidney stones\.br\ Lumbar spondylosis\.br \ Obesity\.br\ KUNAL (obstructive sleep apnea)\.br\ Parkinson's disease\.br\ Personal history of colonic polyps\.br\ Polyneuropathy due to type 2 diabetes mellitus\.br\ POTS (postural orthostatic tachycardia syndrome)\.br\ Prostate nodule\.br\ Urine retention\.br\ Patient Survey\.br\ You may receive a survey via text or e-mail asking about your office visit. Please share your experience with us by completing your survey. We appreciate your feedback and thank you for choosing us for your care.\.br\ \.br\ [facility] General Surgery Office/Clini c Noteon 11-14-2023 General Surgery Office/Clinic Note Chief Complaint post operative follow up HPI Staff 14 day post operative follow up post EGD with esophagus biopsy and colonoscopy with ascending polypectomy. Taking Protonix as prescribed. History of Present Illness 63 yo male s/p EGD and colonoscopy due to mild anemia, personal h/o colon polyps; had small antral ulcer, inflammation at distal esophagus; 4 mm ascending colon polyp, not retrieved; patient placed on Protonix daily; denies abd pain or blood in stools. Review of Systems ROS - Provider Constitutional: no fever, no sweats, no weight loss. Eyes: no glasses, no blurred vision, no visual loss. ENMT: no dentures, no hoarseness, no swallowing difficulties, no hearing loss, no ear infection(s), no nose bleeds. Cardiovascular: normal blood pressure, no chest pain, regular heartbeat, no heart murmur. Respiratory: no shortness of breath, no cough, no asthma, no wheezing. Gastrointestinal: no nausea, no vomiting, no diarrhea, no constipation, no blood in stool, no change in bowel habits, no abdominal pain, no hepatitis. Genitourinary: no kidney stones, no urine infection, no dysuria. Musculoskeletal: no pain, no weakness. Skin: no changing moles, no rash, no skin lumps. Neurologic: no seizures, no epilepsy, no headache. Psychiatric: no emotional or psychiatric problem. Heme/Lymph: no bleeding problems, no anemia, no blood clots, no transfusions. Allergy/Immunologic: no swollen lymph nodes/glands, no IV drug abuse. Other: Additional ROS info: Except as noted in the above Review of Systems and in the History of Present Illness, all other systems have been reviewed and are negative or noncontributory. Assessment/Plan 1. Benign neoplasm of ascending colon (D12.2: Benign neoplasm of ascending colon) not retrieved; recommend surveillance colonoscopy in 5 years, call sooner if problems/questions. 2. Antral ulcer (K25.9: Gastric ulcer, unspecified as acute or chronic, without hemorrhage or perforation) continue PPI 3. GERD with esophagitis (K21.00: Gastro-esophageal reflux disease with esophagitis, without bleeding) see # 2 Follow-up No qualifying data available Problem List/Past Medical History Ongoing Abdominal bloating Anemia Antral ulcer Arthritis Benign neoplasm of ascending colon Bladder cancer BMI 33.0-33.9,adult BPH with obstruction/lower urinary tract symptoms Chronic kidney disease Depression Diabetes mellitus, type 2 Elevated PSA Erectile dysfunction GERD with esophagitis Gross hematuria History of bladder cancer History of colon polyps History of kidney stones Hyperlipidemia Hyperparathyroidism Hypertension Kidney stones Lumbar spondylosis Obesity KUNAL (obstructive sleep apnea) Parkinson's disease Personal history of colonic polyps Polyneuropathy due to type 2 diabetes mellitus POTS (postural orthostatic tachycardia syndrome) Prostate nodule Urine retention Historical No qualifying data Procedure/Surgical History Colonoscopy (10/31/2023), EGD - esophagogastroduodenoscop y (10/31/2023), Cystoscopy (08/30/2021), Cystoscopy (08/24/2020), Cystoscopy (12/16/2019), Colonoscopy (09/2019), Colonoscopy (10/2017), Biopsy of prostate (2016), bladder tumor (2006), right leg bone tumor (2001), ankle surgery, Lithotripsy, Transurethral water vapour ablation of prostate. Medications amlodipine, 5 mg, Oral, Daily Basaglar KwikPen Cialis 20 mg Tab, 20 mg= 1 tab(s), Oral, As Directed, 11 refills gabapentin, 100 mg, Oral, TID K-Effervescent 25 mEq oral tablet, effervescent, 25 mEq= 1 tab(s), Oral, BID, 3 refills losartan, 100 mg, Oral, Daily metformin, 1000 mg, Oral, Daily metoprolol 50 mg ER Tab, 50 mg= 1 tab(s), Oral, Daily Multivitamins and Minerals, 1 tablet, Oral, Daily NovoLog Pantoprazole [address] Tab, 40 mg= 1 tab(s), Oral, Daily pravastatin, 40 mg, Oral, Daily sertraline, 100 mg, Oral, BID Allergies Actos (Rash) Byetta Prefilled Pen (Nausea and vomiting) Valium (Nausea and vomiting) morphine (Itchy) Social History Alcohol - Denies Alcohol Use, 09/19/2019 Substance Abuse - Denies Substance Abuse, 09/19/2019 Tobacco - Denies Tobacco Use, 09/19/2019 Never (less than 100 in lifetime) Tobacco Use:. Never Smokeless Tobacco Use:., 10/05/2023 Family History Arthritis: Father. Hypertension: Mother. Stroke: Father. Immunizations Vaccine Date Status influenza virus vaccine, inactivated 07/2023 Recorded SARS-CoV-2 (COVID-19) [id number] 08/13/2022 Recorded influenza virus vaccine, inactivated 07/26/2022 Recorded SARS-CoV-2 (COVID-19) mRNA BNT-162b2 vax 10/23/2021 Recorded influenza virus vaccine, inactivated 08/10/2021 Recorded SARS-CoV-2 (COVID-19) Ad26 vaccine 04/15/2021 Recorded SARS-CoV-2 (COVID-19) Ad26 vaccine 03/25/2021 Recorded SARS-CoV-2 (COVID-19) mRNA BNT-162b2 vax 02/15/2021 Recorded SARS-CoV-2 (COVID-19) mRNA BNT-162b2 vax 01/25/2021 Recorded influenza virus vaccine, live, trivalent 07/2019 Re (more content not included)... Normal [facility] Comment on above: Result Comment: Elec tronically Signed By: KARLEY PRECIADO, Duran Quiñones\Date and Time Signed: 11/14/23 14:57 EST Reminderson 11-14-2023 Reminders - From: Ifrah Ritter LPN To: N - Clinical; Sent: 11/14/2023 14:53:21 EST Show up: 10/01/2028 07:00:00 EST Subject: colonoscopy recall Due Date/Time: 10/31/2028 07:00:00 EST Reminder/Recall Patient due for surveillance colonoscopy 10/31/2028 due to polyp not retrieved (2022)/history of colon polyps. Normal [facility] Outside Colonoscopyon 2022 Outside Colonoscopy [id number]#[id number] Normal [facility] Pathology Noteon 11-06-2023 Pathology Note [id number]#1.00TIFF Normal [facility] Ambulatory Visit Summaryon 1 12-30-2022 Ambulatory Visit Summary DAT LOPEZ :1960 Visit Date:10/29/2023 Ambulatory Visit Instructions Your Diagnosis History of kidney stones Elevated PSA BPH with obstruction/lower urinary tract symptoms Prostate nodule History of bladder cancer Erectile dysfunction Tests Performed Urnls Dip Stick Auto w/o Microscopy POC 17910 Your Care Team Attending Physician - Pelon COLES MD Primary Care Physician - SP CHOWDARY DO This Is Your Medications List potassium bicarbonate (K-Effervescent 25 mEq oral tablet, effervescent) tadalafil (Cialis 20 mg Tab) Contact prescribing physician if questions or concerns amlodipine gabapentin insulin aspart (NovoLog) insulin glargine (Basaglar KwikPen) losartan metformin metoprolol (metoprolol 50 mg ER Tab) multivitamin with minerals (Multivitamins and Minerals) pravastatin sertraline Procedures Performed Cystoscopy (08/30/2021), Cystoscopy (08/24/2020), Cystoscopy (12/16/2019), Colonoscopy (09/2019), Colonoscopy (10/2017), Biopsy of prostate (2016), bladder tumor (2006), right leg bone tumor (2001), ankle surgery, Lithotripsy, Transurethral water vapour ablation of prostate. Discharge Vitals Heart Rate (Peripheral) 87 Respiratory Rate 16 Blood Pressure 138/88 Height 177 cm Height 70 in Weight 104 kg Weight 228.8 lb BMI 33.2 What to do next Scheduled Follow-Up Appointments Sunday 3:30 PM EST With: SANKET PRECIADO, Pelon Mujica Where: [facility] [address] [facility] [place] [address]- \.br\ You Need to Schedule the Following Appointments\.b r\ Follow Up with SANKET PRECIADO, Pelon Mujica, URL When: \.br\ Comments:\.br\ Scheduled for TRUS/bx on 11/27/23.\.br\ Where:\.br\ [facility] [address]br\ [place] [address]-\.br\ Medications\.br \ What How Much When Instructions\.b r\ Unchanged potassium bicarbonate (K-Effervescent 25 mEq oral tablet, effervescent) 1 Tablets By Mouth 2 times a day Duration: 90 Days\.br\ Unchanged tadalafil (Cialis 20 mg Tab) 1 Tablets By Mouth As Directed Take 1 tab 1 hour as directed prior to sexual activity. Don't exceed 1 tab in a 24 hour period. \.br\ Unchanged amlodipine 5 Milligram By Mouth Every day Contact prescribing physician if questions or concerns \.br\ Unchanged gabapentin 100 Milligram By Mouth 3 times a day Contact prescribing physician if questions or concerns \.br\ Unchanged insulin aspart (NovoLog) as directed Contact prescribing physician if questions or concerns \.br\ Unchanged insulin glargine (Basaglar KwikPen) Contact prescribing physician if questions or concerns \.br\ Unchanged losartan 100 Milligram By Mouth Every day Contact prescribing physician if questions or concerns \.br\ Unchanged metformin 1,000 Milligram By Mouth Every day Contact prescribing physician if questions or concerns \.br\ Unchanged metoprolol (metoprolol 50 mg ER Tab) 1 Tablets By Mouth Every day Contact prescribing physician if questions or concerns \.br\ Unchanged multivitamin with minerals (Multivitamins and Minerals) 1 tablet By Mouth Every day Contact prescribing physician if questions or concerns \.br\ Unchanged pravastatin 40 Milligram By Mouth Every day Contact prescribing physician if questions or concerns \.br\ Unchanged sertraline 100 Milligram By Mouth 2 times a day Contact prescribing physician if questions or concerns \.br\ Test Results\.br\ Urnls Dip Stick Auto w/o Microscopy POC 88519 (10/29/2023)\.b r\ Bilirubin Urine Dipstick - Negative\.br\ Blood Urine Dipstick - Negative\.br\ Glucose Urine Dipstick - Negative\.br\ Ketones Urine Dipstick - Negative\.br\ Leukocytes Urine Dipstick - Negative\.br\ Nitrite Urine Dipstick - Negative\.br\ Protein Urine Dipstick - Trace\.br\ Specific [place] Urine Dipstick - 1.020\.br\ Urine Appearance Urine Dipstick - Clear\.br\ Urine Color Urine Dipstick - Yellow\.br\ Urobilinogen Urine Dipstick - Normal 0.2-1 EU/dl\.br\ pH Urine Dipstick - 6\.br\ Allergies\.br\ Actos (Rash)\.br\ Byetta Prefilled Pen (Nausea and vomiting)\.br\ Valium (Nausea and vomiting)\.br\ morphine (Itchy)\.br\ Problems\.br\ Ongoing - Any problem that you are currently receiving treatment for.\.br\ Abdominal bloating\.br\ Anemia\.br\ Arthritis\.br\ Bladder cancer\.br\ BMI 33.0-33.9,adult \.br\ BPH with obstruction/low er urinary tract symptoms\.br\ Chronic kidney disease\.br\ Depression\.br\ Diabetes mellitus, type 2\.br\ Elevated PSA\.br\ Erectile dysfunction\.br \ Gross hematuria\.br\ History of bladder cancer\.br\ History of colon polyps\.br\ History of kidney stones\.br\ Hyperlipidemia\ .br\ Hyperparathyroi dism\.br\ Hypertension\.b r\ Kidney stones\.br\ Lumbar spondylosis\.br \ Obesity\.br\ KUNAL (obstructive sleep apnea)\.br\ Parkinson's disease\.br\ Personal history of colonic polyps\.br\ Polyneuropathy due to type 2 diabetes mellitus\.br\ POTS (postural orthostatic tachycardia syndrome)\.br\ Prostate nodule\.br\ Urine retention\.br\ Patient Survey\.br\ You may receive a survey via text or e-mail asking about your office visit. Please share your experience with us by completing your survey. We appreciate your feedback and thank you for choosing us for your care.\.br\ \.br\ [facility] Urology Office/Clinic Noteon 10-29-2023 Urology Office/Clinic Note Chief Complaint prostate nodule HPI Staff Pt is here today with questions concerning TRUS Bx vs Fusion Bx. Previous dx of hx of kidney stones, elevated PSA, BPH with obstruction/LUTS (Rezum 12/2019), prostate nodule, hx of bladder cancer (last TURBT 2006) and ED. Effer-k 25mEq BID and Cialis 20mg PRN. Dysuria: no Incomplete bladder emptying: no Hematuria: no Frequency: no Urgency: no Nocturia: no Stream: good steady Leaking: no Post void dripping: no Wearing pads/ Depends: no Urge incontinence: no Stress incontinence: no Incontinence without Sensory Awareness: no Abdominal pain: no Flank pain: no Sexual complaints: no History of Present Illness Tests reviewed: reviewed MRI. I have reviewed the previous health record information and history for this patient from . I have reviewed and verified the staff HPI to be accurate for this encounter. There have been no associated fever, chills, flank pain, or blood in the urine. Denies any urinary infections since last encounter. Review of Systems PHQ Score Initial Depression Screen Score: 0 SCORE ROS - Provider Constitutional: denies weight loss, denies hot flashes. Eyes: denies eye problems. Gastrointestinal: denies nausea, denies vomiting. Cardiovascular: denies chest pain or angina. Integumentary: no dryness Musculoskeletal: denies musculoskeletal symptoms. ENMT: denies otolaryngeal symptoms. Respiratory: no shortness of breath. Heme/Lymph: denies easy bleeding tendency, denies easy bruising tendency. Psychiatric: no confusion, no anxiety. Genitourinary: See HPI. Physical Exam Vitals & Measurements HR: 87(Peripheral) RR: 16 BP: 138/88 HT: 70 in HT: 177 cm WT: 104 kg WT: 228.8 lb BMI: 33.2 General Appearance: alert, no distress, well nourished, well developed male. Assessment/Plan 1. History of kidney stones (Z87.442: Personal history of urinary calculi) S/p cysto/L UD/L ureteroscopy/Holmium laser litho of L ureteral calculus and mult renal calculus/stone basket extraction/stent change done 06/08/22. he had perc neph done also. 24 hr urine done 10/19/22: low citric acid, slightly elevated ox, slightly elevated urine Na. KUB 02/22/23 - a few tiny stones in the Lt kidney Pt is currently taking Effer-K 25 mEq BID. Continue with this med. Pt will call for refills. 2. Elevated PSA (R97.20: Elevated prostate specific antigen [PSA]) PSA: 04/15/21 - 12.82 02/18/22 - 13.80 12/05/22 - 10.5 & 28.4%. neg trus bx and mri. Had neg MRI done 04/20/22. Cysto 06/12/23 - The Prostatic Urethra is: Moderate Hypertrophy, Long lateral lobes. Visually enlarged and nearly touching each other. The Bladder is: Abnormal, Trabeculated (Moderate (2), Diffuse diverticuli. No bladder tumors. Part of median lobe protrudes into the bladder.). MRI of Prostate 09/11/23 - PI-RADS 4, focal area involving the posterior lateral aspect of the Rt peripheral zone at the level of the base measuring 9x4mm, no gross extracapsular extension seen Discussed the difference, risks and benefits between the TP Fusion bx and TRUS/bx. Advised pt and that if he would prefer to get a TP Fusion bx done, we can refer him out to get it done. Pt states that he would like to continue with his scheduled TRUS/bx. Counseled pt and of data of both biopsies. Advised pt that the MRI is not always 100% accurate with showing malignancy. Follow up w/TRUS/bx scheduled on 11/27/23. All questions/concerns were discussed. Pt to call the office if he encounters any issues prior. Pt acknowledges understanding. 3. BPH with obstruction/lower urinary tract symptoms (N40.1: Benign prostatic hyperplasia with lower urinary tract symptoms) S/p Rezum done 12/2019. Patient is not on any BPH meds. Had Negative MRI done 2018 and 04/2022. UA today negative for blood and infection. 4. Prostate nodule (N40.2: Nodular prostate without lower urinary tract symptoms) Rt mid base found at prior OV on 03/13/22. Had neg MRI done 04/20/22. -See #2 5. History of bladder cancer (Z85.51: Personal history of malignant neoplasm of bladder) Last TURBT was in 2006. 6. Erectile dysfunction (N52.9: Male erectile dysfunction, unspecified) Cialis 10mg PRN. Continue medication. Pt will call for refills. Follow-up With When Contact Information Pelon COLES MD, URL [facility] [address], [place] [address]- Additional Instructions: Scheduled for TRUS/bx on 11/27/23. Patient Education I, Va Rivers , personally scribed for Dr. Coles on 10/29/2023 15:42:01. . Documentation recorded by the scribe, Va Rivers, accurately reflects the services(s) I performed and decisions made by me. Problem List/Past Medical History Ongoing Abdominal bloating Anemia Arthritis Bladder cancer BMI 33.0-33.9,adult BPH with obstruction/lower urinary tract symptoms Chronic kidney disease Depression Diabetes (more content not included)... [place] Comment on above: Result Comment: Elec tronically Signed By: Pelon COLES MD\.br\Date and Time Signed: 10/29/23 15:44 EST\.br\Electronically Co-Signed By: Va Rivers\.br\Date and Time Co-Signed: 10/29/23 15:42 EST Consent for Procedure/Surger yon 10-09-2023 Consent for Procedure/Surgery [id number]#1.00TIFF [place] Insurance Correspondenceon 1 12-08-2022 Insurance Correspondence [id number]#1.00TIFF [place] Ambulatory Visit Summaryon 1 12-05-2022 Ambulatory Visit Summary JOHNJOSHUADAT L :1960 Visit Date:10/05/2023 Ambulatory Visit Instructions Your Diagnosis Personal history of colonic polyps Anemia Abdominal bloating Your Care Team Attending Physician - KARLEY PRECIADO, Duran Mujica Primary Care Physician - SP CHOWDARY DO This Is Your Medications List Contact prescribing physician if questions or concerns amlodipine ciprofloxacin (Cipro 500 mg Tab) gabapentin insulin aspart (NovoLog) insulin glargine (Basaglar KwikPen) losartan metformin metoprolol (metoprolol 50 mg ER Tab) multivitamin with minerals (Multivitamins and Minerals) potassium bicarbonate (K-Effervescent 25 mEq oral tablet, effervescent) pravastatin sertraline solifenacin (solifenacin 10 mg Tab) tadalafil (Cialis 20 mg Tab) Procedures Performed Cystoscopy (08/30/2021), Cystoscopy (08/24/2020), Cystoscopy (12/16/2019), Colonoscopy (09/2019), Colonoscopy (10/2017), Biopsy of prostate (2016), bladder tumor (2006), right leg bone tumor (2001), ankle surgery, Lithotripsy, Transurethral water vapour ablation of prostate. Discharge Vitals Heart Rate (Peripheral) 80 Respiratory Rate 16 Blood Pressure 144/82 Height 177 cm Height 70 in Weight 103.6 kg Weight 227.92 lb BMI 33.07 What to do next Scheduled Follow-Up Appointments Sunday 3:30 PM EST With: SANKET PRECIADO, Pelon Mujica Where: [facility] [address] [place] [address] \.br\ Medications\.br \ What How Much When Instructions\.b r\ Unchanged amlodipine 5 Milligram By Mouth Every day Contact prescribing physician if questions or concerns \.br\ Unchanged ciprofloxacin (Cipro 500 mg Tab) 1 Tablets By Mouth Every 12 hours Duration: 7 Days Start 3 days prior to procedure Contact prescribing physician if questions or concerns \.br\ Unchanged gabapentin 100 Milligram By Mouth 3 times a day Contact prescribing physician if questions or concerns \.br\ Unchanged insulin aspart (NovoLog) as directed Contact prescribing physician if questions or concerns \.br\ Unchanged insulin glargine (Basaglar KwikPen) Contact prescribing physician if questions or concerns \.br\ Unchanged losartan 100 Milligram By Mouth Every day Contact prescribing physician if questions or concerns \.br\ Unchanged metformin 1,000 Milligram By Mouth Every day Contact prescribing physician if questions or concerns \.br\ Unchanged metoprolol (metoprolol 50 mg ER Tab) 1 Tablets By Mouth Every day Contact prescribing physician if questions or concerns \.br\ Unchanged multivitamin with minerals (Multivitamins and Minerals) 1 tablet By Mouth Every day Contact prescribing physician if questions or concerns \.br\ Unchanged potassium bicarbonate (K-Effervescent 25 mEq oral tablet, effervescent) 1 Tablets By Mouth 2 times a day Duration: 90 Days Contact prescribing physician if questions or concerns \.br\ Unchanged pravastatin 40 Milligram By Mouth Every day Contact prescribing physician if questions or concerns \.br\ Unchanged sertraline 100 Milligram By Mouth 2 times a day Contact prescribing physician if questions or concerns \.br\ Unchanged solifenacin (solifenacin 10 mg Tab) 30 EA, TAKE 1 TABLET BY MOUTH EVERY DAY Contact prescribing physician if questions or concerns \.br\ Unchanged tadalafil (Cialis 20 mg Tab) 1 Tablets By Mouth As Directed Take 1 tab 1 hour as directed prior to sexual activity. Don't exceed 1 tab in a 24 hour period. Contact prescribing physician if questions or concerns \.br\ Allergies\.br\ Actos (Rash)\.br\ Byetta Prefilled Pen (Nausea and vomiting)\.br\ Valium (Nausea and vomiting)\.br\ morphine (Itchy)\.br\ Problems\.br\ Ongoing - Any problem that you are currently receiving treatment for.\.br\ Abdominal bloating\.br\ Anemia\.br\ Arthritis\.br\ Bladder cancer\.br\ BMI 33.0-33.9,adult \.br\ BPH with obstruction/low er urinary tract symptoms\.br\ Chronic kidney disease\.br\ Depression\.br\ Diabetes mellitus, type 2\.br\ Elevated PSA\.br\ Erectile dysfunction\.br \ Gross hematuria\.br\ History of bladder cancer\.br\ History of colon polyps\.br\ History of kidney stones\.br\ Hyperlipidemia\ .br\ Hyperparathyroi dism\.br\ Hypertension\.b r\ Kidney stones\.br\ Lumbar spondylosis\.br \ Obesity\.br\ KUNAL (obstructive sleep apnea)\.br\ Parkinson's disease\.br\ Personal history of colonic polyps\.br\ Polyneuropathy due to type 2 diabetes mellitus\.br\ POTS (postural orthostatic tachycardia syndrome)\.br\ Prostate nodule\.br\ Urine retention\.br\ Patient Survey\.br\ You may receive a survey via text or e-mail asking about your office visit. Please share your experience with us by completing your survey. We appreciate your feedback and thank you for choosing us for your care.\.br\ \.br\ [facility] RAD - MRI Reporton RAD - MRI Report [id number]#1.00TIFF Normal [facility] Reminderson 09-14-2023 Reminders - From: Nelida Ortiz To: [facility] - Recalls Sanket; Cc: Nelida Ortiz; Sent: 08/09/2023 16:23:35 EDT Show up: 02/18/2024 16:23:00 EDT Subject: MRI of prostate Due Date/Time: 03/10/2024 16:23:00 EDT Reminder/Recall Pt is due for MRI of prostate w/wo in March 2024. pt ended up having it done Aug 2023. see message re: results for PRW plan. Normal [facility] MR prostate wo/w conon 09-11 MR prostate wo/w con [facility] [place] [address] MRI Report Signed Patient: Dat Lopez JR MR#: [id number] : 1960 Acct:[id number] Age/Sex: 63 / M ADM Date: 09/11/23 Loc: Room: Type: [facility] Attending Dr: Pelon Coles MD Copies to: Pelon Coles MD Ordering Provider: Pelon Coles MD Date of Service: 09/11/23 MR/MR prostate wo/w con: R97.20 EXAMINATION: MR prostate wo/w con HISTORY: Elevated PSA COMPARISON: Prostate MRI 04/10/2022 TECHNIQUE: Multiparametric imaging of the prostate gland was performed with IV contrast. FINDINGS: Prostate Dimensions: 5.8 x 5.8 x 8.0 cm Prostate Volume: 140 mL Peripheral Zone: Heterogenous inT2 signal suggestive of prior prostatitis. A focal area of T2 hypointensity is identified involving the posterior lateral aspect of the right peripheral zone at the level of the base measuring 9 x 4 mm with associated restricted diffusion and low ADC value. No gross extracapsular extension is seen. Please see series 4 image 23, series 650 image 23 and series 600 image 23. Central/Transitional Zone: BPH changes. Seminal Vesicles: Unremarkable Neurovascular bundles: Unremarkable. Lymphadenopathy: No evidence of lymphadenopathy. Bladder: No focal lesion. Bowel: Diverticulosis. Peritoneal Cavity: Trace fluid. Bones: No suspicious bony lesion. MR/MR prostate wo/w con IMPRESSION: A focal area of T2 hypointensity is identified involving the posterior lateral aspect of the right peripheral zone at the level of the base measuring 9 x 4 mm with associated restricted diffusion and low ADC value. No gross extracapsular extension is seen. Please see series 4 image 23, series 650 image 23 and series 600 image 23. PI-RADS 4. Targeting of this area on biopsy is recommended. Finding is more conspicuous when compared to the prior study from 04/10/2022. Impression dictated by: Mitul Boston Jr., D.O.09/11/2023 4:28 PM Dictation Location: [place] [address] Transcribed By: [facility] 09/11/23 1628 Dictated By: Mitul Boston Jr, DO 09/11/23 1621 Signed By: 09/11/23 1628 [facility] Insurance Correspondenceon 0 06-26-2023 Insurance Correspondence [id number]#[id number]:1 27 Normal [facility] UroVysion Fish and Urine Cyt o ([facility])on 06-25-2023 UVFISH & UC Diagnosis Info Invalid Interpretation Code [facility] Comment on above: Result Comment: A:Ur ine,Urine:Voided Diagnosis Summary - No evidence of high grade urothelial carcinoma identified. Adequate cellularity for evaluation. Diagnosis Summary - The UroVysion FISH product insert calls for at least 25 urothelial cells to be scored before a result can be rendered. This sample of urine is hypocellular and as such an appropriate UroVyion FISH result can not be reported on this sample. If clinically indicated a repeat UroVysion FISH test, correlation with urine cytology, and continued follow-up are recommended.* CPT 61120, 87254. Microscopic Notes - Microscopic Notes - Abnormal cells 9p21 deletions: Abnormal cells aneploid events: Total cells analyzed: 3 Hematuria: Gross Description Site ID:A color Yellow fixative Alcohol Received 80 mls of clear yellow fluid with the patient's name and, Urine on the vial. Electronically signed by : on: 06/25/2023 10:51:09 Performed By: #### 1 [id number] #### [facility] Laboratory [address] [place] [address] Consent for Procedure/Surger yon 06-12-2023 Consent for Procedure/Surgery [id number]#1.00CD:12 7 Normal [facility] Consent for Treatmenton -2 Consent for Treatment [id number]#1.00CD:12 7 Normal [facility] IntraOperative Documentson 0 06-12-2023 IntraOperative Documents [id number]#1.00CD:12 7 Normal [facility] Main [place] Intraoperative Recor don 06-12-2023 Main OR Intraoperative Record IntraOp Document Type FTURO Summary Primary Physician: Pelon COLES MD Finalized Date/Time: 06/12/23 12:24:53 Pt. Name: JOHN DATWILBER Butterfield./Sex: 1960 Male Med Rec #: [id number] Physician: Pelon COLES MD Financial #: [id number] Pt. Type: O Room/Bed: / Admit/Disch: 06/12/23 11:49:37 - Institution: Case Times FTURO Entry 1 Patient Times In Room 06/12/23 12:10:00 Out Room 06/12/23 12:30:00 Procedure Times Start 06/12/23 12:17:00 Stop 06/12/23 12:25:00 Anesthesia Times Last Modified By: Sandra WHALEY, Jazmyne ZHU 06/12/23 12:23:16 Case Attendance FTURO Entry 1 Entry 2 Entry 3 Case Attendee Pelon COLES MD RN, ALIREZAOR, Tomas KEYES, Malena Samano Role Performed Surgeon - Primary Rewriter - Primary Scrub - Primary Time In 06/12/23 12:10:00 06/12/23 12:10:00 06/12/23 12:10:00 Time Out 06/12/23 12:30:00 06/12/23 12:30:00 06/12/23 12:30:00 Procedure CYSTOSCOPY LOCAL(.) CYSTOSCOPY LOCAL(.) CYSTOSCOPY LOCAL(.) Comments Last Modified By: Sandra WHALEY, CNOR, Sandra WHALEY, ALIREZAOR, Sandra WHALEY, ALIREZAOR, Jazmyne 06/12/23 Jazmyne 06/12/23 Jazmyne 06/12/23 12:23:17 12:23:17 12:23:17 General Comments: a [employer] laboratory technician observing in room Surgical Procedures FTURO Entry 1 Procedure Description Procedure CYSTOSCOPY LOCAL Modifiers . Surgeon Description CYSTO Primary Procedure Yes Primary Surgeon Pelon COLES MD Start 06/12/23 12:17:00 Stop 06/12/23 12:25:00 Anesthesia Type Local Surgical Service Urology Wound Class 2 - Clean-Contaminated Last Modified By: Sandra WHALEY, AUDRA, Jazmyne 06/12/23 12:23:18 General Case Data FTURO Pre-Care Text: Classifies surgical wound, implements aseptic technique, initiates traffic control Entry 1 Case Information OR URO 1 FT Case Level None Wound Class 2 - Clean-Contaminated Specialty Urology Preop Diagnosis HISTORY OF BLADDER Postop Same As Preop No CANCER Postop Diagnosis HISTORY OF BLADDER Outcomes Met? Yes CANCER, clear bladder, elevated PSA, bladder stone Last Modified By: Sandra WHALEY, ALIREZAOR, Jazmyne 06/12/23 12:21:44 Post-Care Text: The patient is free from signs and symptoms of infection EU IntraOp - FTURO Pre-Care Text: Implements protective measures prior to operative or invasive procedure, confirms identity before the operative or invasive procedure, verifies operative procedure, surgical site, and laterality Entry 1 EU Perioperative Protocols Procedure(s) CYSTOSCOPY LOCAL(.) Patient Identity Birthday, ID Band Verified (select at Check, Patient least 2): Participation Consents / H and P HandP, Surgery/Procedure Operative Site N/A Verified Consent Marking Verified Surgical Site Yes Laterality Verified n/a Verified Procedure Verified Yes Correct Patient Yes Position Verified Availability Implant, Medication Time Out Pelon COLES MD, Verified (If Participants Sandra WHALEY, ALIREZAOR, Applicable) Tomas Samano CST, Kimberly A Time Out Complete 06/12/23 12:14:00 Allergies Reviewed? Yes Allergies Reviewed Self/Patient With Body Position Supine Prep Area penis Prep Agents Betadine Solution Skin. Condition Unable to Visualize Additional None Specimens Comment fish done pre-op Specimens Collected Vitals - EU Blood Pressure /150/90 Pulse 77 bpm Respirations 20 br/min SPO2 EBL 0 IandO - EU Total Intake 0 mL Total Output 0 mL Outcomes Met? Yes Last Modified By: AUDRA Flores RN, Ruthann 06/12/23 12:24:49 Post-Care Text: The patient is free from signs and symptoms of injury caused by extraneous objects Sign Out FTURO Entry 1 Before Patient Leaves OR Nurse verbally Yes Nurse verbally n/a confirms with the confirms with the team the name of team that the procedure(s) instrument, sponge, recorded and needle counts are correct (or N/A) Nurse verbally n/a Nurse verbally n/a confirms with the confirms with the team how the team whether there specimen is labeled are any equipment (including patient problems to be name), if applicable addressed Sign Out Complete 06/12/23 12:26:00 Last Modified By: AUDRA Flores RN, Ruthann 06/12/23 12:23:25 Case Comments Finalized By: AUDRA Flores RN, Ruthann Document Signatures Signed By: AUDRA Flores RN, Ruthann 06/12/23 12:24 Normal [facility] Main OR Preoperative Recordo n 06-12-2023 Main OR Preoperative Record Holding Area Document Type FTURO Summary Primary Physician: Pelon COLES MD Finalized Date/Time: 06/12/23 12:21:21 Pt. Name: DAT LOPEZ/Sex: 1960 Male Med Rec #: [id number] Physician: Pelon COLES MD Financial #: [id number] Pt. Type: O Room/Bed: / Admit/Disch: 06/12/23 11:49:37 - Institution: Case Times Holding FTURO Pre-Care Text: Verifies consent for planned procedure, identifies individual values and wishes concerning care, includes family members in perioperative teaching Secures patient's records' belongings, and valuables, maintains patient's dignity and privacy, and maintains patient confidentiality Entry 1 In Holding 06/12/23 12:03:00 Outcomes Met? Yes Last Modified By: Fauzia De Los Santos LPN 06/12/23 12:02:27 Post-Care Text: The patient participates in decisions affecting his or her perioperative plan of care The patient's right to privacy is maintained Surgery Checklist FTURO Entry 1 Patient Birthday, ID Band Procedure Surgical Consent, With Identification: Check, Patient Verification: Patient Participation NPO after Midnight: n/a Date/Time: 06/12/23 12:02:00 Personal Items: Dentures, Glasses, Personal Items glasses, partial plate, Jewelry Comment: watch Limitations: users cane for Complaints of Pain: No ambulation Skin Integrity Intact, [place], Warm, & Dry Vitals - EU Blood Pressure 150/90 Pulse 77 bpm Respirations 20 br/min SPO2 95 % Additional GIN WHALEY Reviewed Yes Specimens Collected Last Modified By: AUDRA Flores RN, Ruthann 06/12/23 12:13:44 General Comments: Temp 37.0 Finalized By: AUDRA Flores RN, Ruthann Document Signatures Signed By: AUDRA Flores RN, Ruthann 06/12/23 12:13 Fauzia De Los Santos LPN 06/12/23 12:08 AUDRA Flores RN, Ruthann 06/12/23 12:21 Normal [facility] Operative Reporton Operative Report Patient: SAMANTHA LOPEZ Age: 63 years Sex: Male : 1960 Associated Diagnoses: None Author: Pelon COLES MD Procedure Operative Information Details: Date/ Time: 06/12/2023 12:28:00. Pre-Op Dx: Hx of Bladder CA - Z85.51, BPH w/ LUTS - N40.1. Post-Op Dx: Same, Tiny bladder calculus. Anesthesia Type: Local. Procedure: Local Cystoscopy. Complications: None. Risks/Benefits/Informed Consent: Surgical risks, benefits, details of the procedure have been explained to the patient, Full informed consent has been obtained. Intraoperative Information Prepped: Patient is brought back to the endoscopy suite, Patient is placed in supine position, Patient prepped in the usual fashion with Betadine solution, 2% Xylocaine Jelly is placed per Urethra, After waiting several minutes the Cystoscope is introduced. The Urethra is: Normal. The Prostatic Urethra is: Moderate Hypertrophy, Long lateral lobes. Visually enlarged and nearly touching each other. The Bladder is: Abnormal, Trabeculated (Moderate (2), Diffuse diverticuli. No bladder tumors. Part of median lobe protrudes into the bladder.). The ureteral orifices: Show efflux of clear urine. Devices Implanted: None. Removal: Cystoscope is removed, The patient tolerated it well. Postoperative Information Discharge: Patient is discharged home with antibiotic coverage, Follow up arranged. Normal [facility] Comment on above: Result Comment: Elec tronically Signed By: SANKET PRECIADO, Pelon Quiñones\Date and Time Signed: 06/12/23 12:31 EDT Outpatient Surgery Discharge Instructionon 06-12-2023 Outpatient Surgery Discharge Instruction [id number]#1.00CD:12 7 Normal [facility] UroVysion Fish and Urine Cyt o ([facility])on 06-12-2023 [facility] Method of Extraction Voided Normal [facility] Comment on above: Performed By: #### 1 [id number] #### [facility] Laboratory [address] [place] [address] [facility] Number of Jars 1 Invalid Interpretation Code [facility] Comment on above: Performed By: #### 1 [id number] #### [facility] Laboratory [address] [place] [address] [facility] Specimen Urine Normal [facility] Comment on above: Performed By: #### 1 [id number] #### [facility] Laboratory [address] [place] [address] [facility] Type of Service Technical Only [place] Comment on above: Performed By: #### 1 [id number] #### [facility] Laboratory [address] [place] [id number] Lab Reportson 06-11-2023 Lab Reports [id number]#1.00CD:12 7 Normal [facility] Reminderson 05-29-2023 Reminders - From: Nelida Ortiz To: EU - Recalls Coles; Cc: Nelida Ortiz; Sent: 05/29/2023 13:20:11 EDT Show up: 04/19/2024 13:20:00 EDT Subject: Cysto/fish/cytol/psa Due Date/Time: 05/05/2024 13:20:00 EDT Reminder/Recall Patient is due in May 2024 for 1 year cysto/fish/cytol/PSA (bt ck) Normal [facility] Pre-Certification Formon Pre-Certification Form [id number]#1.00CD:1 27 Normal [facility] RAD - MISCon 03-05-2023 RAD - MISC [id number]#1.00CD:12 7 Normal [facility] Physician Referralon 023 Physician Referral [id number]#1.00CD:12 7 Normal [facility] XR KUB 1 VIEWon 02-23-2023 XR KUB 1 VIEW EXAMINATION: XR KUB 1 VIEW HISTORY: H/O: urinary stone COMPARISON: XR KUB 07/19/2022 FINDINGS: KIDNEY/URETER - RIGHT: No visible renal or ureteral calcifications. KIDNEY/URETER - LEFT: A few tiny calcifications projecting over left kidney. PELVIS: Stable appearance of a few small pelvic calcifications favoring phleboliths or atherosclerotic disease. BOWEL: No abnormal dilation or deviation. BONES: No acute abnormality. OTHER: Negative. No abnormal gaseous collections. IMPRESSION: 1. Mild left nephrolithiasis. Significant change compared to prior study. Electronically authenticated by: GEMA OTTO Date: 2023-02-23 06:58 Normal [facility] XR LSPINE 2_3 VIEWSon 2022 XR LSPINE 2_3 VIEWS EXAMINATION: XR LSPINE 2_3 VIEWS HISTORY: Lumbar spondylosis COMPARISON: No relevant comparison available. FINDINGS: BONES: Mild grade 1 retrolisthesis of L2 on 3 and of L3 on 4. Mild grade 1 anterior listhesis of L4 on 5. Moderate-marked degenerative facet arthropathy L3-L4 through L5-S1 resulting in bone encroachment on the neural foramen and likely central canal narrowing. DISC SPACES: Mild disc height reduction L2-L3 through L5-S1. PARASPINOUS: Negative. No paraspinous abnormality is seen. OTHER: Negative. IMPRESSION: 1. Multilevel listhesis, degenerative facet arthropathy, and degenerative disc disease. Suspect narrowing of the central canal and foramen. Consider MRI for further evaluation. Electronically authenticated by: GEMA OTTO Date: 2023-02-23 07:03 Normal [facility] CBC AUTO DIFFon 02-22-2023 BASO # 0.0 103/ul Normal 0.0-0.1 [facility] Comment on above: Performed By: #### C BC #### [facility] [address] [place] [address] Dr. Nikky Man Basophils/100 WBC (Bld) 0.3 % Normal 0.2-2.0 [facility] Comment on above: Performed By: #### C BC #### [facility] [address] [address] [address] Nikky Man EO # 0.2 103/ul Normal 0.0-0.7 [facility] Comment on above: Performed By: #### C BC #### [facility] [address] [place] [address] Dr. Nikky Man Eosinophils/100 WBC (Bld) 3.0 % Normal 0.9-7.0 [facility] Comment on above: Performed By: #### C BC #### [facility] [address] [place] [address] Dr. Nikky Man Erythrocyte distribution width (RBC) [Ratio] 14.1 % Normal 11.0-15.0 [facility] Comment on above: Performed By: #### C BC #### [facility] [address] [place] [address] Dr. Nikky Man Hematocrit (Bld) [Volume fraction] 40.4 % Critically low 42.0-54.0 [facility] Comment on above: Performed By: #### C BC #### [facility] [address] [place] [address] Dr. Nikky Man Hemoglobin (Bld) [Mass/Vol] 13.3 g/dL Critically low 14.0-18.0 [facility] Comment on above: Performed By: #### C BC #### [facility] [address] [place] [address] Dr. Nikky Man IG # 0.02 10e3/ul Normal 0.00-0.03 [facility] Comment on above: Performed By: #### C BC #### [facility] [address] [place] [address] Dr. Nikky Man IG % 0.3 % Normal 0.0-0.5 [facility] Comment on above: Performed By: #### C BC #### [facility] [address] [place] [address] Dr. Nikky Man LYMPH # 1.6 103/ul Normal 1.2-3.8 [facility] Comment on above: Performed By: #### C BC #### [facility] [address] [place] [address] Dr. Nikky Man Lymphocytes/100 WBC (Bld) 23.3 % Normal 20.5-60.0 [facility] Comment on above: Performed By: #### C BC #### [facility] [address] [place] [address] Dr. Nikky Man MANUAL DIFF REQ NO Normal [facility] Comment on above: Performed By: #### C BC #### [facility] [address] [place] [address] Dr. Nikky Man MCH (RBC) [Entitic mass] 26.3 pg Normal 25.9-34.0 [facility] Comment on above: Performed By: #### C BC #### [facility] [address] [place] [address] Dr. Nikky Man MCHC (RBC) [Mass/Vol] 32.9 g/dL Normal 29.9-35.2 [facility] Comment on above: Performed By: #### C BC #### [facility] [id number] Nikky Man MCV (RBC) [Entitic vol] 80.0 fL Normal 80.0-94.0 [facility] Comment on above: Performed By: #### C BC #### [facility] [address] [address] [address] Nikky Man MONO # 0.4 103/ul Normal 0.3-0.8 [facility] Comment on above: Performed By: #### C BC #### [facility] [address] [place] [address] Dr. Nikky Man Monocytes/100 WBC (Bld) 5.8 % Normal 1.7-12.0 [facility] Comment on above: Performed By: #### C BC #### [facility] [address] [place] [address] Dr. Nikky Man NEUT # 4.7 103/ul Normal 1.4-6.5 [facility] Comment on above: Performed By: #### C BC #### [facility] [address] [place] [address] Dr. Nikky Man Neutrophils/100 WBC (Bld) 67.3 % Normal 43.0-75.0 [facility] Comment on above: Performed By: #### C BC #### [facility] [address] [place] [address] Dr. Nikky Man Platelet mean volume (Bld) [Entitic vol] 9.0 fL Critically low 9.5-13.5 [facility] Comment on above: Performed By: #### C BC #### [facility] [address] [place] [address] Dr. Nikky Man PLT 154 103/ul Normal 150-450 [facility] Comment on above: Performed By: #### C BC #### [facility] [address] [place] [address] Dr. Nikky Man RBC 5.05 106/ul Normal 4.70-6.10 [facility] Comment on above: Performed By: #### C BC #### [facility] [address] [place] [address] Dr. Nikky Man WBC 6.9 103/ul Normal 4.0-11.0 [facility] Comment on above: Performed By: #### C BC #### [facility] [address] [place] [address] Dr. Nikky Man GLYCOHEMOGLOBIN A1Con 2022 ADA RECOMMENDATION SEE BELOW Normal [facility] Comment on above: Result Comment: ADA RECOMMENDED LIMIT 4.0 - 6.0 ADA THERAPEUTIC TARGET < 7.0 ACTION SUGGESTED > 7.0 Performed By: #### A 1C #### [facility] [address] [place] [address] Dr. Nikky Man Glucose [Mass/Vol] 137 mg/dL Normal [facility] Comment on above: Performed By: #### A 1C #### [facility] [address] [place] [address] Dr. Nikky Man HbA1c (Bld) [Mass fraction] 6.4 % Critically high 4.5-6.2 [facility] Comment on above: Performed By: #### A 1C #### [facility] [address] [place] [address] Dr. Nikky Man LIPID PROFILEon 02-22-2023 CHOL-HDL RATIO NORM SEE BELOW Normal [facility] Comment on above: Result Comment: 3.3 - 4.4 LOW RISK 4.4 - 7.1 AVERAGE RISK 7.1 - 11.0 MODERATE RISK >11.0 HIGH RISK Performed By: #### C MP, LIPID #### [facility] [address] [place] [address] Dr. Nikky Man Cholesterol [Mass/Vol] 135 mg/dL Normal <=200 [facility] Comment on above: Performed By: #### C MP, LIPID #### [facility] [address] [place] [address] Dr. Nikky Man Cholesterol in HDL [Mass/Vol] 30 mg/dL Critically low 40-60 [facility] Comment on above: Performed By: #### C MP, LIPID #### [facility] [address] [place] [address] Dr. Nikky Man Cholesterol in LDL [Mass/Vol] 50.6 mg/dL Normal [facility] Comment on above: Performed By: #### C MP, LIPID #### [facility] [address] [address] [address] Nikky Man Cholesterol.total /Cholesterol in HDL [Mass ratio] 4.5 {ratio} Normal [facility] Comment on above: Performed By: #### C MP, LIPID #### [facility] [address] [place] [address] Dr. Nikky Man HDL NORMAL > or = 60 mg/dl - LO W CARDIOVASCULAR RISK <40 mg/dl - HIGH CARDIOVASCULAR RISK Normal [facility] Comment on above: Performed By: #### C MP, LIPID #### [facility] [address] [place] [address] Dr. Nikky Man LDL CALC NORMAL SEE BELOW Normal [facility] Comment on above: Result Comment: <100 mg/dl OPTIMAL 100 - 129 mg/dl NEAR OR ABOVE OPTIMAL 130 - 159 mg/dl BORDERLINE HIGH 160 - 189 mg/dl HIGH >190 mg/dl VERY HIGH Performed By: #### C MP, LIPID #### [facility] [address] [place] [address] Dr. Nikky Man Triglyceride [Mass/Vol] 272 mg/dL Critically high <=150 [facility] Comment on above: Performed By: #### C MP, LIPID #### [facility] [address] [place] [address] Dr. Nikky Man VLDL CALC 54.4 mg/dL Normal [facility] Comment on above: Performed By: #### C MP, LIPID #### [facility] [address] [place] [address] Dr. Nikky Man MICROALBUMIN, RAND URon 04-0 mALB 13.2 mg/L Normal <=30.0 [facility] Comment on above: Performed By: #### M ALBR #### [facility] [address] [place] [address] Dr. Nikky Man PROF 14(COMP METB)on 023 Albumin [Mass/Vol] 3.9 g/dL Normal 3.4-5.0 [facility] Comment on above: Performed By: #### C MP, LIPID #### [facility] [address] [address] [address] Nikky Man Albumin/Globulin [Mass ratio] 1.2 {ratio} Normal [facility] Comment on above: Performed By: #### C MP, LIPID #### [facility] [address] [address] [address] Nikky Man ALP [Catalytic activity/Vol] 87 U/L Normal 46-116 [facility] Comment on above: Performed By: #### C MP, LIPID #### [facility] [address] [address] [address] Nikky Man ALT [Catalytic activity/Vol] 29 U/L Normal 16-63 [facility] Comment on above: Performed By: #### C MP, LIPID #### [facility] [address] [place] [address] Dr. Nikky Man Anion gap [Moles/Vol] 13.2 mmol/L Normal [facility] Comment on above: Performed By: #### C MP, LIPID #### [facility] [address] [place] [address] Dr. Nikky Man AST [Catalytic activity/Vol] 19 U/L Normal 15-37 [facility] Comment on above: Performed By: #### C MP, LIPID #### [facility] [address] [place] [address] Dr. Nikky Man Bilirubin [Mass/Vol] 0.4 mg/dL Normal 0.2-1.0 [facility] Comment on above: Performed By: #### C MP, LIPID #### [facility] [address] [place] [address] Dr. Nikky Man Calcium [Mass/Vol] 9.3 mg/dL Normal 8.5-10.1 [facility] Comment on above: Performed By: #### C MP, LIPID #### [facility] [address] [place] [address] Dr. Nikky Man Chloride [Moles/Vol] 103 mmol/L Normal 98-107 [facility] Comment on above: Performed By: #### C MP, LIPID #### [facility] [address] [address] [address] Nikky Man CO2 [Moles/Vol] 28.7 mmol/L Normal 21.0-32.0 [facility] Comment on above: Performed By: #### C MP, LIPID #### [facility] [address] [address] [address] Nikky Man Creatinine [Mass/Vol] 1.54 mg/dL Critically high 0.70-1.30 [facility] Comment on above: Performed By: #### C MP, LIPID #### [facility] [address] [address] [address] Nikky Man EGFR-AF NIGERIEN 56 mL/min/1.73m2 Critically low >=60 [facility] Comment on above: Performed By: #### C MP, LIPID #### [facility] [address] [place] [address] Dr. Nikky Man EGFR-NON AF NIGERIEN 46 mL/min/1.73m2 Critically low >=60 [facility] Comment on above: Performed By: #### C MP, LIPID #### [facility] [address] [address] [address] Nikky Man Globulin (S) [Mass/Vol] 3.2 g/dL Normal [facility] Comment on above: Performed By: #### C MP, LIPID #### [facility] [address] [place] [address] Dr. Nikky Man Glucose [Mass/Vol] 179 mg/dL Critically high 74-106 [facility] Comment on above: Performed By: #### C MP, LIPID #### [facility] [address] [address] [address] Nikky Man Potassium [Moles/Vol] 4.9 mmol/L Normal 3.5-5.1 [facility] Comment on above: Performed By: #### C MP, LIPID #### [facility] [address] [address] [address] Nikky Man Protein [Mass/Vol] 7.1 g/dL Normal 6.4-8.2 [facility] Comment on above: Performed By: #### C MP, LIPID #### [facility] [address] [place], [place] [address] Dr. Nkiky Man Sodium [Moles/Vol] 140 mmol/L Normal 136-145 [facility] Comment on above: Performed By: #### C MP, LIPID #### [facility] [address] [place], [place] [address] Dr. Nikky Man Urea nitrogen [Mass/Vol] 20.0 mg/dL Critically high 7.0-18.0 [facility] Comment on above: Performed By: #### C MP, LIPID #### [facility] [address] [place], [place] [address] Dr. Nikky Man Urea nitrogen/Creatini ne [Mass ratio] 13.0 mg/mg Normal [facility] Comment on above: Performed By: #### C MP, LIPID #### [facility] [address] [place], [place] [address] Dr. Nikky Man XR femur RT 2V*on 02-14-2023 XR femur RT 2V* [facility] Main [place] [address] [place] [address] XRay Report Signed Patient: Dat Lopez JR MR#: [id number] : 1960 Acct:[id number] Age/Sex: 62 / M ADM Date: 02/14/23 Loc: [facility] Room: Type: [facility] Attending Dr: Alfonzo Ashford II, MD Copies to: Alfonzo Ashford MD Ordering Provider: Alfonzo Ashford MD Date of Service: 02/14/23 XR/XR femur RT 2V*: Post-traumatic osteoarthritis of right knee Right femur 2 views. Reason for exam: Follow-up ORIF right femur fracture. COMPARISON: Right knee series 12/14/2022 FINDINGS: Hardware fixation is seen involving the mid to distal femur without evidence of hardware complication. No acute fracture line is noted. Residual deformity seen from a prior fracture involving the mid femur. Visualized knee joint demonstrates degenerative change. Right hip joint demonstrates minimal degenerative change. XR/XR femur RT 2V* IMPRESSION: No evidence of hardware complication. No acute fracture line is seen. Impression dictated by: Mitul Boston Jr., D.ODheeraj02/14/2023 4:22 PM Dictation Location: RADIO-PC-12 Transcribed By: [facility] 02/14/23 162 Dictated By: Mitul Boston Jr, DO 02/14/23 162 Signed By: 02/14/23 1622 Normal [place] [facility] XR femur RT 2V* [facility] [employer] Other XR femur RT 2V* [facility] [employer] Other XR femur RT 2V* [address] [place] [address] No [facility] [employer] Other XR femur RT 2V* [place] [address] [address] [facility] [employer] Other XR femur RT 2V* XRay Report [employer] [place] [employer] Other XR femur RT 2V* Signed [employer] Other XR femur RT 2V* Patient: Tk Lopez MR#: [id number] [place] [employer] Other XR femur RT 2V* [id number] [employer] Other XR femur RT 2V* : 1960 Acct:[id number] [place] [employer] Other XR femur RT 2V* Age/Sex: 62 / M ADM Date: 02/14/23 [place] [employer] Other XR femur RT 2V* Loc: SOXD Room: Type : [facility] Other XR femur RT 2V* Attending Dr: Alfonzo Ashford II, MD [facility] Other XR femur RT 2V* Copies to: Alfonzo Ashford MD [facility] Other XR femur RT 2V* Ordering Provider: Sil Ashford MD [facility] Other XR femur RT 2V* Date of Service: 02/14/23 [facility] Other XR femur RT 2V* XR/XR femur RT 2V*: Post-traumatic osteoarthritis of right knee [facility] Other XR femur RT 2V* Right femur 2 views. [facility] Other XR femur RT 2V* Reason for exam: Follow-up ORIF right femur fracture. [facility] Other XR femur RT 2V* COMPARISON: Right kn ee series 12/14/2022 [facility] Other XR femur RT 2V* FINDINGS: Hardware fixation is seen involving the mid to distal femur without evidence of hardware [facility] Other XR femur RT 2V* complication. No acu te fracture line is noted. Residual deformity seen from a prior fracture [facility] Other XR femur RT 2V* involving the mid fe mur. Visualized knee joint demonstrates degenerative change. Right hip joint [facility] Other XR femur RT 2V* demonstrates minimal degenerative change. [facility] Other XR femur RT 2V* X R/XR femur RT 2V* [facility] Other XR femur RT 2V* IMPRESSION: No evide nce of hardware complication. No acute fracture line is seen. [facility] Other XR femur RT 2V* Impression dictated by: Mitul Boston Jr., D.ODheeraj02/14/2023 4:22 PM [facility] Other XR femur RT 2V* Dictation Location: [facility]--12 [facility] Other XR femur RT 2V* Transcribed By: KI 02/14/23 [facility] Other XR femur RT 2V* Dictated By: Mitul Boston Jr, DO 02/14/23 [facility] Other XR femur RT 2V* Signed By: [employer] [facility] [employer] Other XR femur RT 2V* 02/14/23 1622 [facility] Other Ambulatory Visit Summaryon 0 12-18-2022 Ambulatory Visit Summary DAT LOPEZ :1960 Visit Date:12/18/2022 Ambulatory Visit Instructions Your Diagnosis History of kidney stones Elevated PSA BPH with obstruction/lower urinary tract symptoms Prostate nodule History of bladder cancer Erectile dysfunction Tests Performed Urnls Dip Stick Auto w/o Microscopy POC 29199 XR Abdomen 1 View -- Results Pending -- Please visit your patient portal for your results or contact your primary care physician. Your Care Team Attending Physician - Pelon COLES MD Primary Care Physician - SP CHOWDARY DO This Is Your Medications List potassium bicarbonate (K-Effervescent 25 mEq oral tablet, effervescent) tadalafil (Cialis 20 mg Tab) Contact prescribing physician if questions or concerns amlodipine gabapentin insulin glargine (Basaglar KwikPen) insulin lispro (Humalog) losartan melatonin (Melatonin) meloxicam (meloxicam 15 mg Tab) metformin metoprolol (metoprolol 50 mg ER Tab) multivitamin with minerals (Multivitamins and Minerals) pravastatin pyridostigmine sertraline solifenacin (solifenacin 10 mg Tab) Procedures Performed Cystoscopy (08/30/2021), Cystoscopy (08/24/2020), Cystoscopy (12/16/2019), Biopsy of prostate (2016), bladder tumor (2006), right leg bone tumor (2001), ankle surgery, Colonoscopy, Transurethral water vapour ablation of prostate. Discharge Vitals Heart Rate (Peripheral) 68 Respiratory Rate 16 Blood Pressure 127/72 Height 177 cm Height 70 in Weight 111 kg Weight 244.2 lb BMI 35.43 What to do next Scheduled Follow-Up Appointments Sunday 9:45 AM EDT With: Pelon COLES MD Where: [facility] Ciro Normal [facility] Patient Educationon 12-18-19 Patient Education Urology Benign Prostatic Hyperplasia Benign prostatic hyperplasia (BPH) is an enlarged prostate gland that is caused by the normal aging process and not by cancer. The prostate is a walnut-sized gland that is involved in the production of semen. It is located in front of the rectum and below the bladder. The bladder stores urine and the urethra is the tube that carries the urine out of the body. The prostate may get bigger as a man gets older. An enlarged prostate can press on the urethra. This can make it harder to pass urine. The build-up of urine in the bladder can cause infection. Back pressure and infection may progress to bladder damage and kidney (renal) failure. What are the causes? This condition is part of a normal aging process. However, not all men develop problems from this condition. If the prostate enlarges away from the urethra, urine flow will not be blocked. If it enlarges toward the urethra and compresses it, there will be problems passing urine. What increases the risk? This condition is more likely to develop in men over the age of 50 years. What are the signs or symptoms? Symptoms of this condition include: ? Getting up often during the night to urinate. ? Needing to urinate frequently during the day. ? Difficulty starting urine flow. ? Decrease in size and strength of your urine stream. ? Leaking (dribbling) after urinating. ? Inability to pass urine. This needs immediate treatment. ? Inability to completely empty your bladder. ? Pain when you pass urine. This is more common if there is also an infection. ? Urinary tract infection (UTI). How is this diagnosed? This condition is diagnosed based on your medical history, a physical exam, and your symptoms. Tests will also be done, such as: ? A post-void bladder scan. This measures any amount of urine that may remain in your bladder after you finish urinating. ? A digital rectal exam. In a rectal exam, your health care provider checks your prostate by putting a lubricated, gloved finger into your rectum to feel the back of your prostate gland. This exam detects the size of your gland and any abnormal lumps or growths. ? An exam of your urine (urinalysis). ? A prostate specific antigen (PSA) screening. This is a blood test used to screen for prostate cancer. ? An ultrasound. This test uses sound waves to electronically produce a picture of your prostate gland. Your health care provider may refer you to a specialist in kidney and prostate diseases (urologist). How is this treated? Once symptoms begin, your health care provider will monitor your condition (active surveillance or watchful waiting). Treatment for this condition will depend on the severity of your condition. Treatment may include: ? Observation and yearly exams. This may be the only treatment needed if your condition and symptoms are mild. ? Medicines to relieve your symptoms, including: ? Medicines to shrink the prostate. ? Medicines to relax the muscle of the prostate. ? Surgery in severe cases. Surgery may include: ? Prostatectomy. In this procedure, the prostate tissue is removed completely through an open incision or with a laparoscope or robotics. ? Transurethral resection of the prostate (TURP). In this procedure, a tool is inserted through the opening at the tip of the penis (urethra). It is used to cut away tissue of the inner core of the prostate. The pieces are removed through the same opening of the penis. This removes the blockage. ? Transurethral incision (TUIP). In this procedure, small cuts are made in the prostate. This lessens the prostate's pressure on the urethra. ? Transurethral microwave thermotherapy (TUMT). This procedure uses microwaves to create heat. The heat destroys and removes a small amount of prostate tissue. ? Transurethral needle ablation (TUNA). This procedure uses radio frequencies to destroy and remove a small amount of prostate tissue. ? Interstitial laser coagulation (ILC). This procedure uses a laser to destroy and remove a small amount of prostate tissue. ? Transurethral electrovaporization (TUVP). This procedure uses electrodes to destroy and remove a small amount of prostate tissue. ? Prostatic urethral lift. This procedure inserts an implant to push the lobes of the prostate away from the urethra. Follow these instructions at home: ? Take vxjj-yag-[id number] and prescription medicines only as told by your health care provider. ? Monitor your symptoms for any changes. Contact your health care provider with any changes. ? Avoid drinking large amounts of liquid before going to bed or out in public. ? Avoid or reduce how much caffeine or alcohol you drink. ? Give yourself time when you urinate. ? Keep all follow-up visits as told by your health care provider. This is important. Contact a health care provider if: ? You have unexplained back pain. ? Your symptoms do not get better with treatment. ? You d (more content not included)... Normal [facility] Urology Office/Clinic Noteon 12-18-2022 Urology Office/Clinic Note Chief Complaint f/u with metabolic w/u and PSA HPI Staff Pt is here for f/u with metabolic work up and PSA. Previous dx of gross hematuria, elevated PSA, BPH with obstruction/LUTS (Rezum 12/2019), prostate nodule and erectile dysfunction. PSA done 12/05/2022 is 10.5 and 28.4%. Previous PSA done 02/18/22 was 13.80. Dysuria: no Incomplete bladder emptying: no Hematuria: no Frequency: no Urgency: no Nocturia: pt doesn't usually get up Stream: good steady Leaking: no Post void dripping: no Wearing pads/ Depends: no Urge incontinence: no Stress incontinence: no Incontinence without Sensory Awareness: no Abdominal pain: no Flank pain: no Sexual complaints: no History of Present Illness Tests reviewed: reviewed UA, metabolic workup, PSA. I have reviewed the previous health record information and history for this patient from Dr. Coles. I have reviewed and verified the staff HPI to be accurate for this encounter. There have been no associated fever, chills, flank pain, or blood in the urine. Denies any urinary infections since last encounter. Review of Systems PHQ Score Initial Depression Screen Score: 0 ROS - Provider Constitutional: denies weight loss, denies hot flashes. Eyes: denies eye problems. Gastrointestinal: denies nausea, denies vomiting. Cardiovascular: denies chest pain or angina. Integumentary: no dryness Musculoskeletal: denies musculoskeletal symptoms. ENMT: denies otolaryngeal symptoms. Respiratory: no shortness of breath. Heme/Lymph: denies easy bleeding tendency, denies easy bruising tendency. Psychiatric: no confusion, no anxiety. Genitourinary: See HPI. Physical Exam Vitals & Measurements HR: 68(Peripheral) RR: 16 BP: 127/72 HT: 70 in HT: 177 cm WT: 111 kg WT: 244.2 lb BMI: 35.43 General Appearance: alert, no distress, well nourished, well developed male. Genitourinary: normal scrotum, normal testes, normal urethra, normal epididymis, normal vas deferens/spermatic cord. Flank Pain: none. Bladder: nonpalpable. Assessment/Plan 1. History of kidney stones (Z87.442: Personal history of urinary calculi) S/p cysto/L UD/L ureteroscopy/Holmium laser litho of L ureteral calculus and mult renal calculus/stone basket extraction/stent change done 06/08/22. he had perc neph done also. 24 hr urine done 10/19/22: low citric acid, slightly elevated ox, slightly elevated urine Na. Discussed results from 24 hour urine. Oxalate dietary sheet given. Recommended pt. to increase fluid intake to ten to twelve 16oz bottles a day; preferably water, clear pop, and sugar free lemonade. Pt to start Effer-K 25 mEq BID. Rx sent to [facility]. Follow up in 6 mos with KUB or sooner if needed. Pt understands and agrees with plan. -start Effer-K 25 mEq BID 2. Elevated PSA (R97.20: Elevated prostate specific antigen [PSA]) PSA: 04/15/21 - 12.82 02/18/22 - 13.80 12/05/22 - 10.5 & 28.4%. neg trus bx and mri. Had neg MRI done 04/20/22. PSA decreased from prior, hx of fluctuating PSA. 3. BPH with obstruction/lower urinary tract symptoms (N40.1: Benign prostatic hyperplasia with lower urinary tract symptoms) S/p Rezum done 12/2019. Patient is not on any BPH meds. Had Negative MRI done 2018 and 04/2022. UA today negative for blood and infection. 4. Prostate nodule (N40.2: Nodular prostate without lower urinary tract symptoms) Rt mid base found at prior OV on 03/13/22. Had neg MRI done 04/20/22. 5. History of bladder cancer (Z85.51: Personal history of malignant neoplasm of bladder) Last TURBT was in 2006. 6. Erectile dysfunction (N52.9: Male erectile dysfunction, unspecified) Cialis 10mg PRN. Continue medication. Follow-up With When Contact Information SANKET PRECIADO, Pelon Mujica, URL [facility] [address], [place] [address]- Additional Instructions: f/u 6 mos w/KUB Patient Education Benign Prostatic Hyperplasia I, Jocelyne Moore, personally scribed for Dr. Coles on 12/18/2022 16:01:03. . Documentation recorded by the scribe, Jocelyne Moore, accurately reflects the services(s) I performed and decisions made by me. Authenticated by Dr. Coles on 12/18/2022 16:05:03. Problem List/Past Medical History Ongoing Arthritis Bladder cancer BPH with obstruction/lower urinary tract symptoms Depression Diabetes mellitus, type 2 Elevated PSA Erectile dysfunction Gross hematuria History of bladder cancer History of kidney stones Hyperlipidemia Hyperparathyroidism Hypertension Kidney stones KUNAL (obstructive sleep apnea) POTS (postural orthostatic tachycardia syndrome) Prostate nodule Urine retention Historical No qualifying data Procedure/Surgical History Cystoscopy (08/30/2021), Cystoscopy (08/24/2020), Cystoscopy (12/16/2019), Biopsy of prostate (2016), bladder tumor (2006), right leg bone tumor (2001), ankle surgery, Colonoscopy, Transurethral water vapour ablation of pro (more content not included)... Normal [facility] Comment on above: Result Comment: Elec tronically Signed By: Pelon COLES MD\.br\Date and Time Signed: 12/18/22 16:05 EST\.br\Electronically Co-Signed By: Jocelyne Moore\.br\Date and Time Co-Signed: 12/18/22 16:01 EST XR knee RT 4V*on 12-14-2022 XR knee RT 4V* [facility] [address] [place] [address] XRay Report Signed Patient: Dat Lopez JR MR#: [id number] : 1960 Acct:[id number] Age/Sex: 62 / M ADM Date: 12/14/22 Loc: [facility] Room: Type: [facility] Attending Dr: Alfonzo Ashford II, MD Copies to: Alfonzo Ashford MD Ordering Provider: Alfonzo Ashford MD Date of Service: 12/14/22 XR/XR hip LT min 2V(w/wo pelvis)*: Left hip pain ([id number]) XR/XR knee RT 4V*: Acute pain of right knee LEFT HIP - 2 views: Right knee 4 views CLINICAL HISTORY: Left hip pain for months. Groin pain. COMPARISON: None FINDINGS: Left hip: No acute bony process or significant degenerative change of the hips. Right knee: Partially visualized hardware is seen involving the distal femur without evidence of hardware complication. No acute bony process is seen. Small knee joint effusion. Mild Degenerative changes with weightbearing and patellofemoral joint space narrowing. XR/XR hip LT min 2V(w/wo pelvis)* IMPRESSION: MILD DEGENERATIVE CHANGES OF THE RIGHT KNEE WITHOUT ACUTE BONY PROCESS.. Impression dictated by: Mitul Boston Jr., D.ODheeraj12/14/2022 3:37 PM Dictation Location: RADIO-PC-14 Transcribed By: [facility] 12/14/22 1537 Dictated By: Mitul Boston Jr, DO 12/14/22 153 Signed By: 12/14/22 153 [facility] XR knee RT 4V* [facility] [employer] Other XR knee RT 4V* [facility] [employer] Other XR knee RT 4V* [address] [place] [address] [employer] Other XR knee RT 4V* [place] [address] No rt [employer] Other XR knee RT 4V* XRay Report [employer] Other XR knee RT 4V* Signed [employer] Other XR knee RT 4V* Patient: Tk Lopez MR#: [id number] [facility] Other XR knee RT 4V* [id number] [employer] Other XR knee RT 4V* : 1960 Acct:[id number] [facility] Other XR knee RT 4V* Age/Sex: 62 / M ADM Date: 12/14/22 [facility] Other XR knee RT 4V* Loc: SOXD Room: Type : [facility] Other XR knee RT 4V* Attending Dr: Alfonzo Ashford II, MD [facility] Other XR knee RT 4V* Copies to: Alfonzo Ashford MD [facility] Other XR knee RT 4V* Ordering Provider: Sil Ashford MD [facility] Other XR knee RT 4V* Date of Service: 12/14/22 [facility] Other XR knee RT 4V* XR/XR hip LT min 2V(w/wo pelvis)*: Left hip pain [facility] Other XR knee RT 4V* ([id number]) XR/XR knee RT 4V*: Acute pain of right knee [facility] Other XR knee RT 4V* LEFT HIP - 2 views: Right knee 4 views [facility] Other XR knee RT 4V* CLINICAL HISTORY: Le ft hip pain for months. Groin pain. [facility] Other XR knee RT 4V* COMPARISON: None [employer] Other XR knee RT 4V* FINDINGS: Left hip: No acute bony process or significant degenerative change of the hips. [facility] Other XR knee RT 4V* Right knee: Partiall y visualized hardware is seen involving the distal femur without evidence of [facility] Other XR knee RT 4V* hardware complicatio n. No acute bony process is seen. Small knee joint effusion. Mild [facility] Other XR knee RT 4V* Degenerative changes with weightbearing and patellofemoral joint space narrowing. [facility] Other XR knee RT 4V* X R/XR hip LT min 2V(w/wo pelvis)* [facility] Other XR knee RT 4V* IMPRESSION: [employer] Other XR knee RT 4V* MILD DEGENERATIVE CH ANGES OF THE RIGHT KNEE WITHOUT ACUTE BONY PROCESS.. [facility] Other XR knee RT 4V* Impression dictated by: Mitul Boston Jr., D.ODheeraj12/14/2022 3:37 PM [facility] Other XR knee RT 4V* Dictation Location: RADIO-PC-14 [facility] Other XR knee RT 4V* Transcribed By: PWS 12/14/22 1537 [facility] Other XR knee RT 4V* Dictated By: Mitul Boston Jr, DO 12/14/22 1534 [facility] Other XR knee RT 4V* Signed By: [employer] Other XR knee RT 4V* 12/14/22 1537 [employer] Other PSA, FREE AND TOTAL RATIOon 12-06-2022 % Free PSA 28.4 % Normal [facility] Comment on above: Result Comment: The table below lists the probability of prostate cancer for men with non-suspicious JANE results and total PSA between 4 and 10 ng/mL, by patient age (Shahram et al, MAL 1998, 279:1542). % Free PSA 50-64 yr 65-75 yr 0.00-10.00% 56% 55% 10.01-15.00% 24% 35% 15.01-20.00% 17% 23% 20.01-25.00% 10% 20% >25.00% 5% 9% Please note: Shahram et al did not make specific recommendations regarding the use of percent free PSA for any other population of men. Performed By: #### P SAFREE #### [facility] [address] [place] [address] Dr. Nikky Man Prostate specific Ag [Mass/Vol] 10.5 ng/mL Critically high 0.0-4.0 [facility] Comment on above: Result Comment: Roch e ECLIA methodology. . According to the [place] [employer], Serum PSA should decrease and remain at undetectable levels after radical prostatectomy. The AUA defines biochemical recurrence as an initial PSA value 0.2 ng/mL or greater followed by a subsequent confirmatory PSA value 0.2 ng/mL or greater. Values obtained with different assay methods or kits cannot be used interchangeably. Results cannot be interpreted as absolute evidence of the presence or absence of malignant disease. Performed By: #### P SAFREE #### [facility] [address] [place], [place] [address] Dr. Nikky Man PSA, Free 2.98 ng/mL Normal N/A [facility] Comment on above: Result Comment: Inderjit salmon ECLIA methodology. Performed By: #### P SAFREE #### [facility] [address] [place], [place] [address] ABD/PELVIS WO CONon 09-27 CT ABD/PELVIS WO CON EXAMINATION: CT ABD/PELVIS WO CON HISTORY: Kidney stone COMPARISON: CT abdomen pelvis 03/21/2022 TECHNIQUE: Axial, Coronal, and Sagittal images were obtained without and/or with IV contrast as indicated by examination type. Dose reduction techniques were achieved by using automated exposure control and/or adjustment of mA and/or kV according to patient size and/or use of iterative reconstruction technique. FINDINGS: LUNG BASES: No visible pulmonary or pleural disease. LIVER: No enlargement, atrophy, suspicious density, or significant focal lesion. BILIARY: No dilatation or calcification. PANCREAS: No lesion, fluid collection, or abnormal duct dilatation. SPLEEN: No enlargement or focal lesion. ADRENALS: 1.2 cm right adrenal nodule with areas of fat density compatible with a benign adenoma. KIDNEYS: Right kidney contains a nonobstructing 2 mm stone and multiple round hypodensities suspected to represent cysts. Left kidney contains several calcifications, largest is 7 mm likely representing fragmentation of previously seen large stone. Mildly dilated left upper collecting system and ureter with a nonobstructing 3 mm stone proximally and a partially obstructing 6 mm stone at the ureterovesical junction. BOWEL/MESENTERY: No visible mass, obstruction, or bowel wall thickening. Normal appendix. AORTA/VASCULAR: No aneurysm or dissection. RETROPERITONEUM: No mass or adenopathy. LYMPH NODES: No adenopathy. URINARY BLADDER: Contains approximately 5 stones measuring up to 4 mm in diameter. No focal wall thickening or appreciable mass. PELVIC ORGANS: Enlarged prostate markedly protruding into base of bladder. ABDOMINAL WALL: No mass or hernia. BONES: Reversal of normal lordotic curvature of upper lumbar spine. Mild grade 1 retrolisthesis of L3 on 4 and multilevel moderate degenerative facet arthropathy. OTHER: Negative. IMPRESSION: 1. Mild left hydronephrosis and hydroureter secondary to a partially obstructing 6 mm stone at ureterovesical junction. 2. Nonobstructing stones within right and left kidney. Multiple right renal cysts. Complex cyst or mass cannot be completely excluded on this noncontrast study. 3. Multiple stones within urinary bladder. Enlarged prostate markedly protruding into base of bladder. Electronically authenticated by: GEMA OTTO Date: 2022-09-27 15:14 [facility] (URFMOB ) ----- DAT LOPEZ ([id number]) 1960 M Date Time Provider Department 09/26/22 2:30 PM NOELLE VEGA URDENNIS During your visit today, we recorded the following information about you: Noelle Vega MD 09/26/2022 3:57 PM Signed CYSTOSCOPY WITH URETERAL STENT REMOVAL PROCEDURE NOTE: Dat Lopez is a 62 year old male who presents for cystoscopy and stent removal. 09/11/22 S/P LEFT PCNL, Ureteroscopy, laser lithotripsy with stent placement Stone analysis 70% COM and 20% COD Pt ID verified with patient: Yes Procedure verified with patient: Yes Procedure confirmed with physician and shipping support: Yes Sign In: History and Physical Exam reviewed and is unchanged. Primary Diagnosis: Nephrolithiasis Informed Consent Discussed: Yes Sign in Communication: Completed Time Out: Team Confirms the Correct Patient, Correct Procedure; Stent Extraction, Correct Site and Site Marking, Correct Position (if applicable). Affirmation of Time Out: YES Sign Out: Sign Out Discussion: Completed Physician: Noelle Vega MD The benefits, risks, alternatives of the cystoscopy procedure and personnel were discussed with the patient. The verbal consent was obtained and the patient agrees to proceed. Prophylaxis with Bactrim DS was given to the patient prior to the procedure. Procedure: The patient was placed on the procedure table in the supine position and prepped and draped in the usual sterile fashion. 2% Lidocaine Jelly was placed per urethra as an anesthetic in the standard fashion. Once adequate local anesthesia was achieved, the tip of the flexible cystoscope was carefully placed into the urethra under direct visual guidance. The scope was negotiated per urethra with no evidence of stricture into the bladder. The stent was grasped with endoscopic graspers and removed intact At the conclusion of the procedure, the flexible cystoscope was removed atraumatically. The patient tolerated the procedure without complications. Patient was given standard post-procedure instructions ASSESSMENT/PLAN: The patient has been instructed to return to the office in approximately 6 weeks for follow-up imaging, 24 hr urine metabolic studies if indicated. MD Arlene Amaya Ma 09/26/2022 3:01 PM Signed UNIVERSAL PROTOCOL / SAFETY CHECKLIST Procedure to be Performed: stent extractor Sign In: A Moment of CARE was completed. Personnel directly involved with the procedure wore the appropriate PPE (Personal Protective Equipment). Special equipment: cystoscope AND stent extractor Patient/Surrogate Stated/Verified: PATIENT VERIFIED(optional for EMERGENT procedures): Patient name, Date of , Relevant allergies, and The intended procedure Time Out Communication: Intended patient and procedure match the source documents. Consent documented and matches the intended procedure. Relevant labs, photos, and/or imaging studies have been reviewed. Correct side/site marked and visible. Medications required for procedure verified. Fire risk assessed and interventions discussed. No implant(s) inserted. Sign Out: SIGN OUT (optional for EMERGENT procedures): No specimen collected. All instruments, equipment, possible retained foreign bodies accounted for. Post-procedure follow-up management communicated and Plan of Care Visit completed when applicable. Arlene Miguel Ma PRE PROCEDURE ASSESSMENT- Cysto/Stent Extraction Procedure Indication: Stent Extraction Latex Allergy: No Allergies reviewed and updated. Yes Pre-Procedure Vital Signs: BP: 156/86 Pulse: 88 Heart valve replacement: No Joint replacement: No Back Office UA otained: yes PROCEDURE PREP-Cysto Patient ID with two(2)identifiers verified by: Arlene Miguel Ma Pre-Procedure Antibiotics: Bactrim DS 160mg-800mg orally, given during visit @ 1428 , by Arlene Miguel Ma Patient Prep: Betadine Scrub to perineum and placement of Sterile Drape. COMPLETED Anesthetic Given:10 cc 2% Lidocaine jelly and Administered by MD - see Procedure Physician Note. Arlene Miguel Ma UNIVERSAL PROTOCOL / SAFETY CHECKLIST Procedure to be performed: Stent Extraction Sign in Communication: Completed Time Out: Team Confirms the Correct Patient, Correct Procedure, Correct Site and Site Marking, Correct Position (if applicable). Sign Out Discussion: Completed Arlene Miguel Ma POST PROCEDURE NURSE ASSESSMENT Present along with physician during procedure exam. Arlene Miguel Ma Instruction sheet given and reviewed and patient verbalizes understanding: yes Post Procedure Antibiotic: none Current pain intensity is 0 on a 0-10 pain scale. Arlene Miguel Ma AMBULATORY PATIENT EDUCATION THE FOLLOWING WAS EVALUATED Motivation To Learn: Interested Family/Significant Other Support: High - Very involved in pt care C (more content not included)... Normal [facility] UA DIP, URINE (POC)on 2021 BILIRUBIN UA (POCT) Negative Negative [facility] CLARITY UA (POCT) Cloudy [facility] COLOR UA (POCT) Yellow [facility] GLUCOSE UA (POCT) Negative Negative mg/dL [facility] HEMOGLOBIN/BLOOD UA (POCT) Large Abnormal Negative [facility] KETONE UA (POCT) Negative Negative mg/dL [facility] LEUKOCYTES UA (POCT) Small Abnormal Negative [facility] NITRITE UA (POCT) Negative Negative [facility] PH UA (POCT) 5.5 4.5 - 8.0 [facility] Protein Ql (U) 30 mg/dL Abnormal Negative mg/dL [facility] SPECIFIC GRAVITY UA (POCT) 1.020 1.005 - 1.030 [facility] UROBILINOGEN UA (POCT) 0.2 E.U./dL Normal E.U./dL [facility] Basic metabolic 2000 panelon 09-12-2022 Anion gap [Moles/Vol] 9 mmol/L Normal 9-18 [facility] Comment on above: Order Comment: Speci men Type: BLOOD SPECIMENOrdering Facility: [facility] Address: [address] Performed By: #### 2 4321-2 ####[facility] LABORATORYCLIA [id number] [place] [address] [place] Calcium [Mass/Vol] 8.6 mg/dL Normal 8.5-10.2 [facility] Comment on above: Order Comment: Speci men Type: BLOOD SPECIMENOrdering Facility: [facility] Address: [address] [place] [address] Performed By: #### 2 4321-2 ####[facility] LABORATORYCLIA [id number] [place] [address] [place] Chloride [Moles/Vol] 106 mmol/L High 97-105 [facility] Comment on above: Order Comment: Speci men Type: BLOOD SPECIMENOrdering Facility: [facility] Address: [address] [place] [address] Performed By: #### 2 4321-2 ####[facility] LABORATORYIA [id number] [place] [address] [place] CO2 [Moles/Vol] 24 mmol/L Normal 22-30 [facility] ital Comment on above: Order Comment: Speci men Type: BLOOD SPECIMENOrdering Facility: [facility] Address: [address] [place] [address] Performed By: #### 2 4321-2 ####[facility] LABORATORYIA [id number] [place] [id number] [place] Creatinine [Mass/Vol] 1.75 mg/dL High 0.73-1.22 [facility] Comment on above: Order Comment: Speci men Type: BLOOD SPECIMENOrdering Facility: [facility] Address: [address] [place], [place] [address] Performed By: #### 2 4321-2 ####[facility] LABORATORYIA [id number] [place] [address] [place] ESTIMATED GLOMERULAR FILTRATION RATE 44 mL/min/1.73m??? Low >=60 [facility] Comment on above: Order Comment: Speci men Type: BLOOD SPECIMENOrdering Facility: [facility] Address: [address] [place] [address] Result Comment: Carole mated Glomerular Filtration Rate (eGFR) is calculated using the 2020 CKD-EPI creatinine equation. This equation utilizes serum creatinine, sex, and age as parameters. The creatinine assay has traceable calibration to isotope dilution-mass spectrometry. Refer to KDIGO guidelines for clinical interpretation. In patients with unstable renal function, e.g. those with acute kidney injury, the eGFR may not accurately reflect actual GFR. Performed By: #### 2 4321-2 ####[facility] LABORATORYCLIA [id number] [place] [address] [place] Glucose [Mass/Vol] 169 mg/dL High 74-99 [facility] Comment on above: Order Comment: Demar arrington Type: BLOOD SPECIMENOrdering Facility: [facility] Address: [address] [place] [id number] Result Comment: The [place] [employer] (ADA) provides guidance for cutoff values for fasting glucose and random glucose. The ADA defines fasting as no caloric intake for at least 8 hours. Fasting plasma glucose results between 100 to 125 mg/dL indicate increased risk for diabetes (prediabetes). Fasting plasma glucose results greater than or equal to 126 mg/dL meet the criteria for diagnosis of diabetes. In the absence of unequivocal hyperglycemia, results should be confirmed by repeat testing. In a patient with classic symptoms of hyperglycemia or hyperglycemic crisis, random plasma glucose results greater than or equal to 200 mg/dL meet the criteria for diagnosis of diabetes. Reference: Standards of Medical Care in Diabetes 2016, [place] [employer]. Diabetes Care. 2016.39(Suppl 1). Performed By: #### 2 4321-2 ####[facility] LABORATORYCLIA [id number] [place] [address] [place] Potassium [Moles/Vol] 4.7 mmol/L Normal 3.7-5.1 [facility] Comment on above: Order Comment: Demar [facility] Type: BLOOD SPECIMENOrdering Facility: [facility] Address: [address] [place] [address] Performed By: #### 2 4321-2 ####[facility]PITALCLIA [id number] [place] [address] [place] Sodium [Moles/Vol] 139 mmol/L Normal 136-144 [facility] Comment on above: Order Comment: Speci men Type: BLOOD SPECIMENOrdering Facility: [facility] Address: [address] [place] [address] Performed By: #### 2 4321-2 ####[facility] LABORATORYCLIA [id number] [place] [address] [place] Urea nitrogen [Mass/Vol] 26 mg/dL High 9-24 [facility] Comment on above: Order Comment: Speci men Type: BLOOD SPECIMENOrdering Facility: [facility] Address: [address] [place] [address] Performed By: #### 2 4321-2 ####[facility] LABORATORYIA [id number] [address] [place] CBC panel Auto (Bld)on 09-12 Erythrocyte distribution width (RBC) [Ratio] 13.4 % Normal 11.5-15.0 [facility] Comment on above: Order Comment: Speci men Type: BLOOD SPECIMEN [facility] Address: [address] [place] [address] Performed By: #### 5 8410-2 #### [facility] CLIA [id number] [address] [place] [address] [place] Hematocrit (Bld) [Volume fraction] 35.7 % Low 39.0-51.0 [facility] Comment on above: Order Comment: Speci men Type: BLOOD SPECIMEN [facility] Address: [address] [place] [address] Performed By: #### 5 8410-2 #### [facility] CLIA [id number] [address] [place] [address] [place] Hemoglobin (Bld) [Mass/Vol] 11.5 g/dL Low 13.0-17.0 [facility] Comment on above: Order Comment: Speci men Type: BLOOD SPECIMEN [facility] Address: [address] [place] [address] Performed By: #### 5 8410-2 #### [facility] [place] [id number] OF [facility] MCH (RBC) [Entitic mass] 26.2 pg Normal 26.0-34.0 [facility] Comment on above: Order Comment: Speci men Type: BLOOD SPECIMEN [facility] Address: [address] [place] [address] Performed By: #### 5 8410-2 #### [facility] [place] [id number] [address] [place] [address] [place] MCHC (RBC) [Mass/Vol] 32.2 g/dL Normal 30.5-36.0 [facility] Comment on above: Order Comment: Speci men Type: BLOOD SPECIMEN [facility] Address: [address] [place] [address] Performed By: #### 5 8410-2 #### [facility] [place] [id number] [address] [place] [address] [place] MCV (RBC) [Entitic vol] 81.3 fL Normal 80.0-100.0 [facility] Comment on above: Order Comment: Speci men Type: BLOOD SPECIMEN [facility] Address: [address] [place] [address] Performed By: #### 5 8410-2 #### [facility] [place] [id number] [place] Nucleated RBC (Bld) [#/Vol] 10*3/uL Normal <0.01 [facility] Comment on above: Order Comment: Speci men Type: BLOOD SPECIMEN [facility] Address: [address] [place] [address] Performed By: #### 5 8410-2 #### [facility] [place] [id number] [address] [place] [address] [place] [address] [place] Platelet mean volume (Bld) [Entitic vol] 9.3 fL Normal 9.0-12.7 [facility] Comment on above: Order Comment: Speci men Type: BLOOD SPECIMEN [facility] Address: [address] [place] [address] Performed By: #### 5 8410-2 #### [facility] CLIA [id number] [address] [place] [address] [place] Platelets (Bld) [#/Vol] 134 10*3/uL Low 150-400 [facility] Comment on above: Order Comment: Speci men Type: BLOOD SPECIMEN [facility] Address: [address] [place] [address] Performed By: #### 5 8410-2 #### [facility] CLIA [id number] [address] [place] [address] [place] RBC (Bld) [#/Vol] 4.39 10*6/uL Normal 4.20-6.00 [facility] Comment on above: Order Comment: Speci men Type: BLOOD SPECIMEN [facility] Address: [address] [place], [place] [address] Performed By: #### 5 8410-2 #### [facility] CLIA [id number] [address] [place] [id number] [place] WBC (Bld) [#/Vol] 9.95 10*3/uL Normal 3.70-11.00 [facility] Comment on above: Order Comment: Speci men Type: BLOOD SPECIMEN [facility] Address: [address] [place], [place] [address] Performed By: #### 5 8410-2 #### [facility] CLIA [id number] [address] [place] [id number] [facility] CNDSon 09-12-2022 CNDS HNO ID: [id number] Author: Noelle Vega MD Service: Urology Author Type: Physician Type: Discharge Summary Filed: 09/13/2022 1:41 PM Note Text: [facility] [place] [phone] or [phone] [facility] DISCHARGE SUMMARY Patient Name: Dat Lopez Patient Admission Date: 09/11/2022 Discharge Date: 09/12/2022 Attending Physician: Noelle Vega MD Principal Diagnosis: Left nephrolithiasis Secondary Diagnoses Patient Active Hospital Problem List: Kidney stone on left side (09/12/2022) Bladder cancer (HCC) (08/24/2022) Hypertension (08/24/2022) Hyperlipidemia (08/24/2022) Type 2 diabetes mellitus without complication, with long-term current use of insulin (HCC) (08/24/2022) KUNAL (obstructive sleep apnea) (08/28/2022) Left ureteral stone (09/12/2022) Hyperkalemia (09/12/2022) BPH (benign prostatic hyperplasia) () Operations During Hospitalization 1. Left percutaneous nephrolithotomy - mini 2. Cystoscopy Procedures Performed While Hospitalized: Intubation General anesthesia Reason for Hospitalization: The patient is a 62 year old male with PMHx significant for HLD, DM2, KUNAL, BPH, HTN found to have a large branching left kidney stone who was admitted for surgical stone management. Hospital Course: The patient was admitted and underwent the above procedure without complications and postoperatively was taken to the recovery area and subsequently to the regular nursing floor. Pain control was achieved via oral pain medications. Patient had hyperkalemia on post-operative labs for which medicine team was consulted. Patient was given Kayexalate 15 g and losartan was held. On follow up labs the potassium normalized and on day of discharge potassium was noted to be 4.7. The Caputo catheter was bloody on POD#1 but cleared in the morning with gentle traction and increased fluid intake. He also has a history of BPH with a very large prostate and the hematuria was likely in part secondary to the BPH rather than the kidney. The catheter was removed on POD#1 and the patient was able to urinate with low PVR. On postoperative day 1, the patient was tolerating a diet, ambulating, and had good pain control. The patient was discharged in stable condition to home with instructions to follow up as scheduled. Patient Condition at Discharge: Stable Discharge Disposition: Home Information Provided to the Patient: Patient was given a copy of Discharge Instructions Discharge Medications: Current Discharge Medication List START taking these medications oxyCODONE-acetaminophen (PERCOCET) 1 tablet Take 1 tablet by mouth every 6 hours as needed for pain (for severe pain). This medication can cause constipation. Qty: 5 tablet Refills: 0 Associated Diagnoses:Acute post-operative pain docusate sodium (COLACE) 100 mg Take 100 mg by mouth twice daily. Qty: 28 capsule Refills: 0 tamsulosin (FLOMAX) 0.4 mg Take 0.4 mg by mouth daily at bedtime. Qty: 30 capsule Refills: 0 phenazopyridine (PYRIDIUM, GERIDIUM) 200 mg Take 200 mg by mouth three times daily as needed. Qty: 9 tablet Refills: 0 cephALEXin (KEFLEX) 500 mg Take 500 mg by mouth three times daily. Qty: 9 capsule Refills: 0 CONTINUE these medications which have NOT CHANGED metFORMIN (GLUCOPHAGE) 1,000 mg Take 1,000 mg by mouth twice daily. pravastatin (PRAVACHOL) 40 mg Take 40 mg by mouth once daily. metoprolol succinate ER (TOPROL XL) 50 mg Take 50 mg by mouth once daily. amlodipine besylate (AMLODIPINE ORAL) 5 mg Take 5 mg by mouth. gabapentin (NEURONTIN) 100 mg Take 100 mg by mouth three times daily. sertraline (ZOLOFT) 100 mg Take 100 mg by mouth once daily. losartan (COZAAR) 100 mg Take 100 mg by mouth once daily. AMOR MICHELLE U-100 INSULIN 100 unit/mL (3 mL) INJECT 50 UNITS SUBCUTANEOUSLY ONCE A DAY Tadalafil 10 mg Take 10 mg by mouth once daily. coenzyme Q10 (COENZYME Q-10) 100 mg Take 100 mg by mouth once daily. multivitamin (MULTI-DAY ORAL) Take by mouth. melatonin 20 mg Take 20 mg by mouth. No future appointments. Valdo Mcghee MD PGY-5, Urology Pager: [phone] [facility] STAFF PHYSICIAN NOTE OF PERSONAL INVOLVEMENT IN CARE I have reviewed the progress note obtained and documented by the resident and I personally participated in the barnett components. I have discussed the case and management of the patient's care. The following comments revise or confirm relevant barnett components of the note. VSS, no physical signs of active bleeding. Plan for DC with follow up for stent removal in 2 weeks, KIM/KUB ~ 1 month following Noelle Vega MD Associate Staff - Urology September 13, 2022 Normal [facility] HISTORY PHYSICALon HISTORY PHYSICAL HNO ID: [id number] Author: Fani Vallejo APRN.CNP Service: Hospital Medicine Author Type: Nurse Practitioner Type: HANDP Filed: 09/12/2022 2:57 AM Note Text: ----- Attestation signed by Constantine Hutchins MD at 09/12/2022 6:02 AM chart reviewed denies ibd/sbo K 5.7 during perioperative period, ekg no peaked t waves compared to prior hold arb kayexalate resume home dose insulin Constantine Hutchins MD September 12, 2022 6:02 AM ----- [facility] MEDICINE INITIAL CONSULT SERVICE DATE: 09/11/2022 SERVICE TIME: 7:50 PM Primary Care Physician: Sp Chowdary, DO NIGHT AND WEEKEND COVERAGE: JAKE COVERAGE: Days: [phone], please contact via [employer] Nights: [phone] - 3rd floor: please page CC Hospitalist night cover [phone] - 4th floor: please page CC Hospitalist night cover [phone] - 5th floor: please page CC Hospitalist night cover [phone] REASON FOR CONSULT: Hyperkalemia REQUESTING PHYSICIAN: Carmella Rae PA-C Subjective CHIEF COMPLAINT: S/P left mini PCNL and ureteroscopy with stent placement HPI: This is a 62 year old male with past medical history of HTN, KUNAL, bladder cancer, DM II, BPH, and POTS who had a left mini percutaneous nephrolithotomy and ureteroscopy with stent placement done today by Dr. Roman Ornelas. Patient is resting in bed in no apparent distress. He denies pain or discomfort and is anticipating discharge tomorrow. Caputo catheter is draining bloody urine. Reason for consult and plan of care discussed with patient. All questions answered. Denies any chest pain, shortness of breath, palpitations, nausea, or vomiting. Travel Screening Question Response In the last 10 days, have you been in contact with someone who was confirmed or suspected to have Coronavirus/COVID-19? No / Unsure Have you had a COVID-19 viral test in the last 10 days? No Do you have any of the following new or worsening symptoms? None of these Have you traveled internationally or domestically in the last month? No Travel History Travel since 08/13/22 No documented travel since 08/13/22 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 Gross hematuria Nephrolithiasis POTS (postural orthostatic tachycardia syndrome) PAST SURGICAL HISTORY Procedure Laterality Date COLONOSCOPY SCREENING x2 CT CRYOABLATION BONE TUMOR Right 2001 rigth femur CYSTOSCOPY,URETEROSCOPY,L ITHOTRIPSY Left multiple in 2021 CYSTOSCOPY,URETEROSCOPY,L ITHOTRIPSY Right 2003 ESWL Left PAST SURGICAL HISTORY OF Left multiple ankle surgeries FAMILY HISTORY Problem Relation Age of Onset Ovarian cancer Mother Diabetes Mother Prostate Cancer Father other (atrial fibrillation) Father Breast Cancer Sister Social History Tobacco Use Smoking status: Never Passive exposure: Past Smokeless tobacco: Never Vaping Use Vaping Use: Never used Substance Use Topics Alcohol use: Not Currently Drug use: Never PRIOR TO ADMISSION MEDICATIONS: metFORMIN (GLUCOPHAGE) 1,000 mg tablet, Take 1,000 mg by mouth twice daily., Disp: , Rfl: , 09/10/2022 pravastatin (PRAVACHOL) 40 mg tablet, Take 40 mg by mouth once daily., Disp: , Rfl: , 09/10/2022 metoprolol succinate ER (TOPROL XL) 50 mg 24 hr tablet, Take 50 mg by mouth once daily., Disp: , Rfl: , 09/10/2022 amlodipine besylate (AMLODIPINE ORAL), Take 5 mg by mouth., Disp: , Rfl: , 09/10/2022 gabapentin (NEURONTIN) 100 mg capsule, Take 100 mg by mouth three times daily., Disp: , Rfl: , 09/10/2022 sertraline (ZOLOFT) 100 mg tablet, Take 100 mg by mouth once daily., Disp: , Rfl: , 09/10/2022 losartan (COZAAR) 100 mg tablet, Take 100 mg by mouth once daily., Disp: , Rfl: , 09/10/2022 AMOR MICHELLE U-100 INSULIN 100 unit/mL (3 mL), INJECT 50 UNITS SUBCUTANEOUSLY ONCE A DAY, Disp: , Rfl: , 09/10/2022 Tadalafil 5 mg tablet, Take 10 mg by mouth once daily., Disp: , Rfl: , 09/10/2022 coenzyme Q10 (COENZYME Q-10) 100 mg cap capsule, Take 100 mg by mouth once daily., Disp: , Rfl: , 09/10/2022 multivitamin (MULTI-DAY ORAL), Take by mouth., Disp: , Rfl: , 09/10/2022 melatonin 10 mg tab, Take 20 mg by mouth., Disp: , Rfl: , Unknown Current Facility-Administered Medications Medication Dose Route Frequency gabapentin 100 mg cap(s) (NEURONTIN) 100 mg ORAL TID pravastatin 40 mg tab(s) (PRAVACHOL) 40 mg ORAL DAILY metoprolol succinate ER 50 mg tab(s) (TOPROL XL) 50 mg ORAL DAILY amLODIPine 5 mg tab(s) (NORVASC) 5 mg ORAL DAILY sertraline 100 mg tab(s) (ZOLOFT) 100 mg ORAL DAILY sodium chloride 0.9 % (flush) 3-5 mL (BD POSIFLUSH) 3-5 mL INTRAVENOUS q 12 H NaCl 0.9% iv flush bag 20 mL INTRAVENOUS PRN acetaminophen 650 mg tab(s) (TYLENOL) 650 mg ORAL q 4 H P (more content not included)... Normal [facility] NURSING PROGon 09-12-2022 NURSING PROG HNO ID: [id number] Author: Taylor Barr, RN Service: Nursing Author Type: Registered Nurse Type: Nursing Progress Note Filed: 09/12/2022 10:37 PM Note Text: Caputo catheter draining bloody urine with few small clots noted. Fluids encouraged. Abdomen soft, hypoactive bowel sounds x4 quadrants. Left flank dressing with small dime sized old drainage, no new drainage noted. Dry dressing applied. Steri strips intact. 1153-Caputo catheter removed per order,pt aware of bladder scan after each void. 1600-Discharged to home with family, all discharge orders reviewed with pt understanding. Normal [facility] POTASSIUM BLDon 09-12-2022 Potassium [Moles/Vol] 4.9 mmol/L Normal 3.7-5.1 [facility] Comment on above: Order Comment: Speci men Type: BLOOD SPECIMENOrdering Facility: [facility] Address: [address] [place] [address] Performed By: #### K 1 ####[facility] LABORATORYCLIA [id number] [facility] [id number] [place] [facility] ANES POSTPROC EVALon 022 ANES POSTPROC EVAL HNO ID: [id number] Author: Melisa Rangel MD Service: Anesthesiology Author Type: Anesthesiologist Type: Anesthesia Postprocedure Evaluation Filed: 09/11/2022 1:00 PM Note Text: POST ANESTHESIA EVALUATION NOTE : 1960 Procedure Summary Date: 09/11/22 Room / Location: OR01 / AV OR Anesthesia Start: 0732 Anesthesia Stop: 1134 Procedure: PERCUTANEOUS NEPHROLITHOTOMY (Left: Kidney) Diagnosis: Nephrolithiasis (Nephrolithiasis [N20.0]) Surgeons: Noelle Vega MD Responsible Provider: Melisa Rangel MD Anesthesia Type: general ASA Status: 3 Anesthesia Type: general Airway Type: ETT Last Vitals Vitals Value Taken Time BP 137/61 09/11/22 1250 Temp 36.6 ?C (97.9 ?F) 09/11/22 1250 HR SpO2 76 09/11/22 1131 Resp 17 09/11/22 1250 SpO2 96 % 09/11/22 1250 Post Anesthesia Patient Status Patient Evaluation: PACU. PACU/ICU Patient Condition: stable. Anticipated Disposition: phase 2 then home. Neurological Status: aware and responsive. Pulmonary Status: breathing comfortably on room air Airway Control: returned to baseline unsupported. Cardiovascular Status: stable. Pain Management: clinically adequate Postoperative Hydration: acceptable. Intraoperative Events: no significant anesthesia events Post Operative Nausea/Vomiting Status: no significant post operative nausea or vomiting Anesthetic Observations: Recommendation: continue current plan of care. Anesthesia Observations No Documentation SIGNATURE: Melisa Rangel MD PATIENT NAME: Dat Lopez DATE: September 11, 2022 TIME: 1:00 PM CSN: [id number] [facility] ANES PRE-OPon 09-11-2022 ANES PRE-OP HNO ID: [id number] Author: Melisa Rangel MD Service: Anesthesiology Author Type: Anesthesiologist Type: Anesthesia Preprocedure Evaluation Filed: 09/11/2022 7:16 AM Note Text: ANESTHESIOLOGY DAY OF SURGERY NOTE : 1960 Procedure Information Date/Time: 09/11/22729 Procedure: PERCUTANEOUS NEPHROLITHOTOMY (Left: Kidney) Location: AV OR01 / AV OR Surgeons: Noelle Vega MD Estimated body mass index is 34.26 kg/m? as calculated from the following: Height as of 08/28/22: 175.3 cm (5' 9 ). Weight as of 08/28/22: 105.2 kg (232 lb). Most recent hematocrit and potassium results: Hematocrit 40.0 08/28/2022 Potassium 4.7 08/28/2022 Relevant Problems ANESTHESIA (+) KUNAL (obstructive sleep apnea) CARDIO (+) Hypertension ENDO (+) Type 2 diabetes mellitus without complication, with long-term current use of insulin (HCC) PULMONARY (+) KUNAL (obstructive sleep apnea) I - PHYSICAL EVALUATION AIRWAY Patient intubated: No. Tracheostomy tube not present Mallampati: III. TM distance: >3 FB. Neck ROM: full ROM without neurological symptoms. Mouth opening: adequate. Short neck: no. Thick neck: no DENTAL Dental findings: missing tooth/teeth. Additional exam findings: yes. CARDIOVASCULAR Normal cardiovascular observations. Rhythm: regular Rate: normal PULMONARY Normal pulmonary observations. Breath sounds clear to auscultation. II - ANESTHESIA PLAN ASA Score: 3 Anesthetic Plan: general Airway type: ETT NPO Status: adequate Monitoring plan: standard ASA. Postoperative analgesic plan: parenteral or oral opioids. Informed Consent Anesthetic risks, benefits, alternatives, personnel and consent discussed: yes. Patient / Responsible Republican agrees to proceed: yes Patient / Surrogate agrees to blood products: Yes Significant changes in the patient condition since the History and Physical, not otherwise documented in primary service progress note: no. Potential Anesthesia issues that may suggest increased risk of complications or contraindication to planned procedure: none. Vitals Value Taken Time BP 176/86 09/11/22642 Pulse 65 09/11/22642 Resp 16 09/11/22642 Temp 36.3 ?C (97.3 ?F) 09/11/22642 SpO2 97 % 09/11/22642 Facility-Administered Medications as of 09/11/2022 Medication Dose Route Frequency - lidocaine 10 mg/mL (1 %) 1-2 mg injection (XYLOCAINE) 0.1-0.2 mL INTRADERMAL PRN - lactated ringers iv infusion 5-30 mL/hr INTRAVENOUS CONTINUOUS - ceFAZolin iv piggyback 2 g in D5W (iso-osmotic) 100 mL (ANCEF) 2 g INTRAVENOUS Pre-Op Once - acetaminophen 1,000 mg tab(s) (TYLENOL) 1,000 mg ORAL ONCE Outpatient Medications as of 09/11/2022 Medication Sig - metFORMIN (GLUCOPHAGE) 1,000 mg tablet Take 1,000 mg by mouth twice daily. - BASAGLAR KWIKPEN U-100 INSULIN 100 unit/mL (3 mL) INJECT 50 UNITS SUBCUTANEOUSLY ONCE A DAY - Tadalafil 5 mg tablet Take 10 mg by mouth once daily. I have interviewed and examined the patient. I have reviewed the medical record and/or the pre-anesthesia evaluation, pertinent labs, and test results. This contains updated information obtained within 48 hours of Surgery/Procedure. SIGNATURE: Melisa Rangel MD PATIENT NAME: Dat Lopez DATE: September 11, 2022 TIME: 7:15 AM CSN: [id number] [facility]EF OP NOT HNO ID: [id number] Author: Roman Ornelas MD Service: Urology Author Type: Fellow Type: Brief Op Note Filed: 09/11/2022 11:27 AM Note Text: UROLOGY SERVICE BRIEF OPERATIVE NOTE LOG ID: [id number] Surgery/Procedure Date: 09/11/2022 Incision/Procedure Start Time: 8:06 AM Incision Close/Procedure End Time: 11:12 AM Patient Age: [age] year old Surgeon(s)/Proceduralist( s) and Merchant Patroller(s): Surgeon(s) and Role: * Noelle Vega MD - Primary No Additional Staff Anesthesia: General Preop Diagnosis: Left renal and ureteral stones Postop Diagnosis: Same as preoperative diagnosis Procedure: Laterality: left Left stent removal Cystoscopy, left ureteral catheterization Retrograde pyelogram Percutaneous renal access Dilation of access tract Percutaneous nephrolithotomy, > 2 cm Flexible nephroscopy Antegrade flexible ureteroscopy Stone basket extraction Retrograde stent placement, 6F x 26cm Physician time for fluoroscopic imaging and interpretation <1hr Estimated Blood Loss: 50 mls Accidental punctures or Lacerations: None Drains: Indwelling 6F x 26cm JJ left ureteral stent [address] Cultures: None Findings: Bifid collecting system. Large stone burden in upper pole. Upper pole access. Mini PCNL with 18F ClearPetra. Large ureteral stone burden as well. No remaining ureteral stone, no upper pole stones visible on flexible nephroscopy, but some small stone burden potentially remaining on fluoroscopy. Stent placed retrograde. Large prostate. Specimens: ID Type Source Tests Collected by Time Destination 1 : Left Kidney Stones Calculus CALCULI/CALCULUS CALCULI ANALYSIS Noelle Vega MD 09/11/2022 10:02 AM Complications: None SIGNATURE: Roman Ornelas MD PATIENT NAME: Dat Lopez DATE: September 11, 2022 TIME: 11:21 AM PAGER/CONTACT #: [phone] Normal [facility] Basic metabolic 2000 panelon 09-11-2022 Anion gap [Moles/Vol] 9 mmol/L Normal -18 [facility] Comment on above: Order Comment: Speci men Type: BLOOD SPECIMEN Ordering Facility: [facility] Address: [address] [place] [address] [place] [id number] Performed By: #### 5 8410-2 #### [facility] CLIA [id number] [address] [place] [address] [place] Calcium [Mass/Vol] 8.6 mg/dL Normal 8.5-10.2 [facility] Comment on above: Order Comment: Speci men Type: BLOOD SPECIMEN Ordering Facility: [facility] Address: [address] [place] [address] Performed By: #### 5 8410-2 #### [facility] CLIA [id number] [place] [address] [place] Chloride [Moles/Vol] 105 mmol/L Normal 97-105 [facility] Comment on above: Order Comment: Speci men Type: BLOOD SPECIMEN Ordering Facility: [facility] Address: [address] [place] [address] Performed By: #### 5 8410-2 #### [facility] [place] [id number] [address] [place] [address] [place] CO2 [Moles/Vol] 22 mmol/L Normal 22-30 [facility] Comment on above: Order Comment: Speci men Type: BLOOD SPECIMEN Ordering Facility: [facility] Address: [address] [place] [address] Performed By: #### 5 8410-2 #### [facility] IA [id number] [address] [place] [address] [place] Creatinine [Mass/Vol] 1.67 mg/dL High 0.73-1.22 [facility] Comment on above: Order Comment: Speci men Type: BLOOD SPECIMEN Ordering Facility: [facility] Address: [address] [place], [place] [address] Performed By: #### 5 8410-2 #### [facility] [place] [id number] [address] [place] [id number] [place] [address] [place] ESTIMATED GLOMERULAR FILTRATION RATE 47 mL/min/1.73m??? Low >=60 [facility] Comment on above: Order Comment: Speci men Type: BLOOD SPECIMEN Ordering Facility: [facility] Address: [address] [place] [phone] Result Comment: Carole mated Glomerular Filtration Rate (eGFR) is calculated using the 2020 CKD-EPI creatinine equation. This equation utilizes serum creatinine, sex, and age as parameters. The creatinine assay has traceable calibration to isotope dilution-mass spectrometry. Refer to KDIGO guidelines for clinical interpretation. In patients with unstable renal function, e.g. those with acute kidney injury, the eGFR may not accurately reflect actual GFR. Performed By: #### 5 8410-2 #### [facility] CLIA [id number] [address] [place] [address] [place] Glucose [Mass/Vol] 214 mg/dL High 74-99 [facility] Comment on above: Order Comment: Demar arrington Type: BLOOD SPECIMEN Ordering Facility: [facility] Address: [address] [place], [place] [id number] Result Comment: The [place] Diabetes [employer] (ADA) provides guidance for cutoff values for fasting glucose and random glucose. The ADA defines fasting as no caloric intake for at least 8 hours. Fasting plasma glucose results between 100 to 125 mg/dL indicate increased risk for diabetes (prediabetes). Fasting plasma glucose results greater than or equal to 126 mg/dL meet the criteria for diagnosis of diabetes. In the absence of unequivocal hyperglycemia, results should be confirmed by repeat testing. In a patient with classic symptoms of hyperglycemia or hyperglycemic crisis, random plasma glucose results greater than or equal to 200 mg/dL meet the criteria for diagnosis of diabetes. Reference: Standards of Medical Care in Diabetes 2016, [place] [employer]. Diabetes Care. 2016.39(Suppl 1). Performed By: #### 5 8410-2 #### [facility] CLIA [id number] [address] [place] [address] [place] Potassium [Moles/Vol] 5.7 mmol/L High 3.7-5.1 [facility] Comment on above: Order Comment: Demar arrington Type: BLOOD SPECIMEN Ordering Facility: [facility] Address: [address] [place] [phone] Performed By: #### 5 8410-2 #### [facility] CLIA [id number] [address] [place] [address] [place] Sodium [Moles/Vol] 136 mmol/L Normal 136-144 [facility] Comment on above: Order Comment: Speci men Type: BLOOD SPECIMEN Ordering Facility: [facility] Address: [address] [place], [place] [address] Performed By: #### 5 8410-2 #### [facility] CLIA [id number] [address] [place] [address] [place] Urea nitrogen [Mass/Vol] 20 mg/dL Normal 9-24 [facility] Comment on above: Order Comment: Speci men Type: BLOOD SPECIMEN Ordering Facility: [facility] Address: [address] [place], [place] [address] Performed By: #### 5 8410-2 #### [facility] CLIA [id number] [address] [place] [address] [place] CALCULI ANALYSISon 2 Calculus analysis [Interp] Normal [facility] Comment on above: Order Comment: Speci men Type: CALCULUS SPECIMENOrdering Facility: [facility] Address: [address] [place], [place] [address] Result Comment: This test was developed and its performance characteristics determined by [facility]'s Alfonzo JDheeraj [facility] Pathology and Laboratory Medicine [place] (-[facility]). It has not been cleared or approved by the FDA. -[facility] is regulated under CLIA as qualified to perform high-complexity testing. This test is used for clinical purposes. It should not be regarded as investigational or for research. Performed By: #### C SA ####[facility] [id number] [place] [address] [place] CALCULUS COLOR BROWN Normal [facility] Comment on above: Order Comment: Speci men Type: CALCULUS SPECIMENOrdering Facility: [facility] Address: [address] [place], [place] [address] Performed By: #### C SA ####[facility] [id number] [address] [place] CALCULUS COMPOSITION 1 70% Calcium Oxalate Monohydrate Normal [facility] Comment on above: Order Comment: Speci men Type: CALCULUS SPECIMENOrdering Facility: [facility] Address: [address] [place] [address] Performed By: #### C SA ####[facility] [id number] [address] [place] CALCULUS COMPOSITION 2 20% Calcium Oxalate Dihydrate Normal [facility] Comment on above: Order Comment: Speci men Type: CALCULUS SPECIMENOrdering Facility: [facility] Address: [address] [place] [phone] Performed By: #### C SA ####[facility] [id number] [address] [place] CALCULUS COMPOSITION 3 10% Minor Components [facility] Comment on above: Order Comment: Speci men Type: CALCULUS SPECIMENOrdering Facility: [facility] Address: [address] [place] [phone] Performed By: #### C SA ####[facility] [id number] [address] [place] CALCULUS SIZE AND WT Multiple pieces. 2.8188 GRAMS Normal [facility] Comment on above: Order Comment: Speci men Type: CALCULUS SPECIMENOrdering Facility: [facility] Address: [address] [place] [phone] Performed By: #### C SA ####[facility] [id number] [address] [place] CALCULUS TYPE CALCULI/CALCULUS Normal [facility] Comment on above: Order Comment: Speci men Type: CALCULUS SPECIMENOrdering Facility: [facility] Address: [address] [place] [phone] Performed By: #### C SA ####[facility] [id number] [place] [id number] [place] CBC panel Auto (Bld)on 09-11 Erythrocyte distribution width (RBC) [Ratio] 13.8 % Normal 11.5-15.0 [facility] Comment on above: Order Comment: Speci men Type: BLOOD SPECIMEN Ordering Facility: [facility] Address: [address] [place] [address] Performed By: #### 5 8410-2 #### [facility] CLIA [id number] Hematocrit (Bld) [Volume fraction] 40.1 % Normal 39.0-51.0 [facility] Comment on above: Order Comment: Speci men Type: BLOOD SPECIMEN Ordering Facility: [facility] Address: [address] [place] [address] Performed By: #### 5 8410-2 #### [facility] IA [id number] [address] [place] [address] [place] Hemoglobin (Bld) [Mass/Vol] 12.3 g/dL Low 13.0-17.0 [facility] Comment on above: Order Comment: Speci men Type: BLOOD SPECIMEN Ordering Facility: [facility] Address: [address] [place] [address] Performed By: #### 5 8410-2 #### [facility] [place] [id number] [address] [place] MCH (RBC) [Entitic mass] 25.6 pg Low 26.0-34.0 [facility] Comment on above: Order Comment: Speci men Type: BLOOD SPECIMEN Ordering Facility: [facility] Address: [address] [place] [address] Performed By: #### 5 8410-2 #### [facility] CLIA [id number] [address] [place] MCHC (RBC) [Mass/Vol] 30.7 g/dL Normal 30.5-36.0 [facility] Comment on above: Order Comment: Speci men Type: BLOOD SPECIMEN Ordering Facility: [facility] Address: [address] Performed By: #### 5 8410-2 #### [facility] [place] [id number] [place] MCV (RBC) [Entitic vol] 83.5 fL Normal 80.0-100.0 [facility] Comment on above: Order Comment: Speci men Type: BLOOD SPECIMEN Ordering Facility: [facility] Address: [address] [place], [place] [address] Performed By: #### 5 8410-2 #### [facility] [place] [id number] [address] [place] Nucleated RBC (Bld) [#/Vol] 10*3/uL Normal <0.01 [facility] Comment on above: Order Comment: Speci men Type: BLOOD SPECIMEN Ordering Facility: [facility] Address: [address] [place], [place] [address] Performed By: #### 5 8410-2 #### [facility] IA [id number] [address] [place] [address] [place] Platelet mean volume (Bld) [Entitic vol] 9.5 fL Normal 9.0-12.7 [facility] Comment on above: Order Comment: Speci men Type: BLOOD SPECIMEN Ordering Facility: [facility] Address: [address] [place], [place] [address] Performed By: #### 5 8410-2 #### [facility] IA [id number] [address] [place] Platelets (Bld) [#/Vol] 137 10*3/uL Low 150-400 [facility] Comment on above: Order Comment: Speci men Type: BLOOD SPECIMEN Ordering Facility: [facility] Address: [address] [place], [place] [address] Performed By: #### 5 8410-2 #### [facility] IA [id number] [address] [place] RBC (Bld) [#/Vol] 4.80 10*6/uL Normal 4.20-6.00 [facility] Comment on above: Order Comment: Speci men Type: BLOOD SPECIMEN Ordering Facility: [facility] Address: [address] [place], [place] [phone] Performed By: #### 5 8410-2 #### [facility] CLIA [id number] [address] [place] [id number] [facility] WBC (Bld) [#/Vol] 7.34 10*3/uL Normal 3.70-11.00 [facility] Comment on above: Order Comment: Speci men Type: BLOOD SPECIMEN Ordering Facility: [facility] Address: [address] [place] [address] Performed By: #### 5 8410-2 #### [facility] CLIA [id number] [address] ECG COMPLETEon 09-11-2022 ECG COMPLETE Ventricular Rate : 9 0 BPM Atrial Rate : 90 BPM P-R Interval : 175 ms QRS Duration : 92 ms Q-T Interval : 360 ms QTC Calculation(Bazett) : 441 ms Calculated P [place] : 42 degrees Calculated R [place] : -16 degrees Calculated T [place] : 29 degrees Sinus rhythm Borderline left axis deviation Abnormal R-wave progression, early transition Otherwise Normal ECG Confirmed by Rubén CURRIE RAVISANKAR ([id number]) on 09/15/2022 2:00:08 PM NAME : DAT OLPEZ PID : [id number] : 1960 Gender : Male Race : ORD : [id number] Procedure Date : Sep 11 2022 20:12:04 Edit Date : Sep 15 2022 14:00:15 Diagnosis: Sinus rhythm Borderline left axis deviation Abnormal R-wave progression, early transition Otherwise Normal ECG Confirmed by Rubén CURRIE RAVISANKAR ([id number]) on 09/15/2022 2:00:08 PM Test Reason : Other - Specify Location : 300 : EKG 534 Overread By : Rubén CURRIE RAVISANKAR Edited By : Rubén CURRIE RAVISANKAR Referred By : , Acquired by : [id number], [facility] HISTORY PHYSICALon HISTORY PHYSICAL HNO ID: [id number] Author: Noelle Vega MD Service: Urology Author Type: Physician Type: HANDP Filed: 09/11/2022 7:27 AM Note Text: Preoperative HANDP Chief complaint: Patient is here today for management of left kidney and ureter stone burden History, update from last visit: Previous notes, reviewed, no significant new changes, patient is doing well, denies fever, abdominal pain, nausea or vomiting, no new voiding symptoms or constipation. Has seen numerous stones pass. Often with clot. Hx includes, KUNAL, HTN, T2DM, POTS. Hx of UCC, obesity, Ehlos Danlos Negative UCx Examination: Patient is awake and alert , oriented to time, person, place. Chest: unlabored breathing, equal on both sides. Heart: regular rate and rhythm, normal peripheral pulsations. Abdomen: Soft, non tender, non distended All lab results, imaging reviewed and there was no change. Assessment and plan of management: Patient is here today for management of left kidney and ureter stone burden Plan for left PCNL and URS All patient's questions were discussed in details, outline of procedure and recovery discussed. Surgical site : left kidney, ureter and bladder Noelle Vega MD September 11, 2022 7:23 AM [facility] NURSING PROGon 09-11-2022 NURSING PROG HNO ID: [id number] Author: Oanh Mc RN Service: Nursing Author Type: Registered Nurse Type: Nursing Progress Note Filed: 09/11/2022 5:34 PM Note Text: Other: Page sent to surgical pager. K noted to be 5.8. Will await further instructions. LOPEZ 534- Potassium is 5.8 Thanks Oanh [id number] [facility] NURSING PROG HNO ID: [id number] Author: Malena Salvador RN Service: Nursing Author Type: Registered Nurse Type: Nursing Progress Note Filed: 09/11/2022 12:55 PM Note Text: Transfer Note: Patient transferred into room/unit 534 in stable condition. Actions taken: No futher actions taken at this time. Will continue to monitor and check with patient. [facility] NURSING PROG HNO ID: [id number] Author: Radha Rae, JOVANA Service: ? Author Type: Registered Nurse Type: Nursing Progress Note Filed: 09/11/2022 12:30 PM Note Text: Report from Kaushal Norton for coverage. Pt denies pain at this time. VSS. 1210 - Pt tolerating ice chips. 1225 - Pt continues to deny pain. Report called to [address] [place] [address] OPERATIVE NOon 09-11-2022 OPERATIVE NO HNO ID: [id number] Author: Noelle Vega MD Service: Urology Author Type: Physician Type: Operative Report Filed: 09/11/2022 12:07 PM Note Text: OPERATIVE/PROCEDURE REPORT LOG ID: [id number] SURGERY/PROCEDURE DATE: 09/11/2022 INCISION/PROCEDURE START TIME: 8:06 AM INCISION CLOSE/PROCEDURE END TIME: 11:12 AM SURGEON(S)/PROCEDURALIST( S) AND HEDDLER(S): Surgeon(s) and Role: * Noelle Vega MD - Primary * Roman Ornelas MD - Fellow No Additional Staff SURGERY/PROCEDURE(S): Laterality: left Cystoscopy, left ureteral catheterization Left ureteral stent removal Retrograde pyelogram Percutaneous renal access (ultrasound and fluoroscopic) Dilation of access tract 18Fr Percutaneous nephrolithotomy, > 2 cm Flexible nephroscopy Antegrade Flexible ureteroscopy Laser lithotripsy - holmium Stone basket extraction Retrograde stent placement, 6F x 26cm Physician time for fluoroscopic imaging and interpretation <1hr ANESTHESIA: General OPERATIVE FINDINGS: Multiple left ureteral stones Bifid collecting system Large upper pole stone burden No remaining stone visualized in upper pole or ureter endoscopically, but stone fragments seen on fluoroscopy Large prostate Total stone burden is 30-40 mm Anticipated SFR: 50% FOLLOWUP PLAN: Admit for observation. PACU labs/CXR. Plan for TOV in AM. Plan for outpatient CT Flank on day of stent removal (1-2 weeks) to plan follow up (observation vs 2nd look URS). CLINICAL PREAMBLE: Dat Lopez is a 62 year old patient with a PMHx of Ehler's Danlos, UCC, BPH, enchondroma, POTS, HTN, T2DM, and nephrolithiasis. He presents with left renal stone(s), and previously underwent left ESWL and URS, but still has a very large stone burden as well as numerous stones within his ureter. He elected to undergo PCNL after discussion of all surgical options. Stones were located in upper pole an dureter with a preoperative stone burden of 3-4 cm. Signed informed consent was obtained prior to the procedure after a thorough discussion of the risks, benefits and alternatives. Pre-operative urine culture was obtained to rule out UTI.. I discussed specific risks and complications of the procedure in detail including but not limited to: hemorrhage with the potential need for blood transfusion or angiogram, UTI, urosepsis, injury to adjacent structures including pleural violation requiring a chest tube, or colonic injury. I also discussed the post operative nephrotomy tube, and possibility of residual fragments with the need for secondary PCNL or ureteroscopy. SURGERY/PROCEDURE DETAILS: The patient was brought into the operating room and a surgical huddle was performed. General anesthesia was administered via ETT and appropriate perioperative IV antibiotics (Ancef) were given. DVT prophylaxis with SCD and ALLEN stockings was provided. The patient was then positioned in the prone split leg position with all pressure points carefully padded and protected. The back and genitalia was thoroughly prepped and draped. A 17F flexible Olympic cystoscope was introduced per urethra and into the bladder. The left ureteral orifice was identified with a stent in place and a 0.038 Hybrid wire was advanced into the renal pelvis under fluoroscopic guidance. Graspers were then used to remove the indwelling stent on the left. A 8/10 coaxial dilator was used to advance a second 0.038 Glidewire to the renal pelvis to serve as the safety wire. A 16fr. coude catheter was then placed to straight drainage with 10 cc of sterile water in the balloon. A 5fr open ended catheter was advanced over the hybrid wire into the renal pelvis, then contrast was injected to opacify the renal pelvis. On fluoroscopy, it was noted that there were multiple opacities overlying the course of the ureter and in the kidney. Retrograde pyelogram demonstrated a bifid collecting system, and long infundibula with the larger stone burden in the upper pole. Banking Officer images were obtained in 2 planes using the c-arm. A retrograde pyelogram was performed contrast, and an appropriate upper pole, posterior calyx was selected. The BK ultrasound with the curved transducer was used to assess the renal anatomy and identify an upper pole calyx. An 18F Chiba needle was used to gain access into this calyx under ultrasound guidance. On inspection of fluoroscopy, this did not appear to be the ideal calyx with the larger stone burden. We then used multi-plane fluoroscopy to fluoroscopically guide the needle to the posterior desired calyx. At this point, urine was noted to efflux from the needle. A 0.038 Hybrid wire was then used to establish access into the renal collecting system. The wire was then guided into the ureter and down into the bladder, under fluoroscopic guidance. An 8/10 coaxial dilator was placed over the wire, and used to place a second Amplatz super stiff, which was to serve as a working wi (more content not included)... Normal [facility] POTASSIUM [facility] 09-11-2022 Potassium [Moles/Vol] 5.7 mmol/L High 3.7-5.1 [facility] Comment on above: Order Comment: Demar arrington Type: BLOOD SPECIMEN [facility]ing Facility: [facility] Address: [address] [place] [address] Performed By: #### 5 8410-2 #### [facility] CLIA [id number] [address] [place] [address] [place] Potassium [Moles/Vol] 5.8 mmol/L High 3.7-5.1 [facility] Comment on above: Order Comment: Demar arrington Type: BLOOD SPECIMEN Ordering Facility: [facility] Address: [address] [place] [address] Performed By: #### 5 8410-2 #### [facility] CLIA [id number] [address] [place] [address] [place] XR CHEST 1V FRONTAL PORTon 1 XR CHEST 1V FRONTAL PORT * * *Final Report* * * DATE OF EXAM: Sep 11 2022 11:53AM VHX [id number] - XR CHEST 1V FRONTAL PORT / PROCEDURE REASON: Post-operative / post-procedure assessment, asymptomatic * * * * Physician Interpretation * * * * FRONTAL CHEST RADIOGRAPH HISTORY: Post-operative / post-procedure assessment, asymptomatic. TECHNIQUE: Frontal view of the chest was obtained. COMPARISON: No available comparisons. RESULT: Cardiomediastinal silhouette is normal. Bibasilar atelectasis left greater than right. No pleural effusion or pneumothorax. Pulmonary vasculature is unremarkable. IMPRESSION: Bibasilar atelectasis. Associate Professor Of Biology: VITOR Transcribe Date/Time: Sep 11 2022 12:00P Dictated by : CECE GALVIN MD This examination was interpreted and the report reviewed and electronically signed by: CECE GALVIN MD on Sep 11 2022 12:01PM EST [id number] Normal [facility] 25(OH)D3 SerPl-mCncon 2021 25-hydroxyvitamin D3 [Mass/Vol] 42.6 ng/mL Normal 31.0-80.0 [facility] Comment on above: Order Comment: Speci men Type: BLOOD SPECIMENOrdering Facility: [facility] Address: [address] [place], [place] [address] Result Comment: Clas sification of 25 [place] Vitamin D status: Deficiency/Insufficiency: < or = 30 ng/ml. Sufficiency/Optimal Levels: 31-80 ng/mL Toxicity: > 100 ng/mL. Test performed by chemiluminescent immunoassay. Performed By: #### 1 989-3 ####[facility] [id number] [place] [address] [place] Bacteria Ur Culton 2 Bacteria identified Cx Nom (U) CULTURE, URINE: No growth (<1,000 CFU/ml) Normal [facility] Comment on above: Performed By: #### 6 30-4 ####[facility] [id number] [place] [address] [place] CBC W Auto Differential pane l (Bld)on 08-28-2022 Basophils (Bld) [#/Vol] 0.03 10*3/uL Normal <0.11 [facility] Comment on above: Order Comment: Speci men Type: BLOOD SPECIMENOrdering Facility: [facility] Address: [address] [phone] Performed By: #### 5 7021-8 ####[facility] [id number] [place] [address] [place] Basophils/100 WBC (Bld) 0.4 % Normal [facility] Comment on above: Order Comment: Speci men Type: BLOOD SPECIMENOrdering Facility: [facility] Address: [address] [place] [address] Performed By: #### 5 7021-8 ####[facility] [id number] [place] [address] [place] Differential cell count method Nom (Bld) Auto Normal [facility] Comment on above: Order Comment: Speci men Type: BLOOD SPECIMENOrdering Facility: [facility] Address: [address] [place] [address] Performed By: #### 5 7021-8 ####[facility] [id number] [place] [address] [place] Eosinophils (Bld) [#/Vol] 0.31 10*3/uL Normal <0.46 [facility] Comment on above: Order Comment: Speci men Type: BLOOD SPECIMENOrdering Facility: [facility] Address: [address] [place] [address] Performed By: #### 5 7021-8 ####[facility] [id number] [address] [place] Eosinophils/100 WBC (Bld) 4.4 % Normal [facility] Comment on above: Order Comment: Speci men Type: BLOOD SPECIMENOrdering Facility: [facility] Address: [address] [place], [place] [address] Performed By: #### 5 7021-8 ####[facility] [id number] [address] [place] Erythrocyte distribution width (RBC) [Ratio] 13.9 % Normal 11.5-15.0 [facility] Comment on above: Order Comment: Speci men Type: BLOOD SPECIMENOrdering Facility: [facility] Address: [address] [place], [place] [address] Performed By: #### 5 7021-8 ####[facility] [id number] [place], [place] [id number] [place] [address] [place] Hematocrit (Bld) [Volume fraction] 40.0 % Normal 39.0-51.0 [facility] Comment on above: Order Comment: Speci men Type: BLOOD SPECIMENOrdering Facility: [facility] Address: [address] [place] [address] Performed By: #### 5 7021-8 ####[facility] [id number] [place] [address] [place] Hemoglobin (Bld) [Mass/Vol] 13.0 g/dL Normal 13.0-17.0 [facility] Comment on above: Order Comment: Speci men Type: BLOOD SPECIMENOrdering Facility: [facility] Address: [address] [place] [address] Performed By: #### 5 7021-8 ####[facility] [id number] [address] [place] IMMATURE GRAN % 0.4 % Normal [facility] ital Comment on above: Order Comment: Speci men Type: BLOOD SPECIMENOrdering Facility: [facility] Address: [address] [place] [address] Performed By: #### 5 7021-8 ####[facility] [id number] [place] [address] [place] IMMATURE GRAN ABS 0.03 k/uL Normal <0.10 [facility] Comment on above: Order Comment: Speci men Type: BLOOD SPECIMENOrdering Facility: [facility] Address: [address] [place] [address] Performed By: #### 5 7021-8 ####[facility] [id number] [place] [id number] [place] Lymphocytes (Bld) [#/Vol] 2.20 10*3/uL Normal 1.00-4.00 [facility] Comment on above: Order Comment: Speci men Type: BLOOD SPECIMENOrdering Facility: [facility] Address: [address] [place] [address] Performed By: #### 5 7021-8 ####[facility] [id number] [address] [place] Lymphocytes/100 WBC (Bld) 31.2 % Normal [facility] Comment on above: Order Comment: Speci men Type: BLOOD SPECIMENOrdering Facility: [facility] Address: [address] [place] [address] Performed By: #### 5 7021-8 ####[facility] [id number] [address] [place] MCH (RBC) [Entitic mass] 26.5 pg Normal 26.0-34.0 [facility] Comment on above: Order Comment: Speci men Type: BLOOD SPECIMENOrdering Facility: [facility] Address: [address] [place] [address] Performed By: #### 5 7021-8 ####[facility] [id number] [address] [place] MCHC (RBC) [Mass/Vol] 32.5 g/dL Normal 30.5-36.0 [facility] Comment on above: Order Comment: Speci men Type: BLOOD SPECIMENOrdering Facility: [facility] Address: [address] [place], [place] [address] Performed By: #### 5 7021-8 ####[facility] [id number] [address] [place] MCV (RBC) [Entitic vol] 81.5 fL Normal 80.0-100.0 [facility] Comment on above: Order Comment: Speci men Type: BLOOD SPECIMENOrdering Facility: [facility] Address: [address] [place], [place] [address] Performed By: #### 5 7021-8 ####[facility] [id number] [place] [address] [place] Monocytes (Bld) [#/Vol] 0.44 10*3/uL Normal <0.87 [facility] Comment on above: Order Comment: Speci men Type: BLOOD SPECIMENOrdering Facility: [facility] Address: [address] [place] [address] Performed By: #### 5 7021-8 ####[facility]ORYCLIA [id number] [place] [address] [place] Monocytes/100 WBC (Bld) 6.2 % Normal [facility] Comment on above: Order Comment: Speci men Type: BLOOD SPECIMENOrdering Facility: [facility] Address: [address] [place], [place] [address] Performed By: #### 5 7021-8 ####[facility]ORYCLIA [id number] [place] [address] [place] Neutrophils (Bld) [#/Vol] 4.05 10*3/uL Normal 1.45-7.50 [facility] Comment on above: Order Comment: Speci men Type: BLOOD SPECIMENOrdering Facility: [facility] Address: [address] [place], [place] [address] Performed By: #### 5 7021-8 ####[facility] [id number] [place] [address] [place] Neutrophils/100 WBC (Bld) 57.4 % Normal [facility] Comment on above: Order Comment: Speci men Type: BLOOD SPECIMENOrdering Facility: [facility] Address: [address] [place], [place] [address] Performed By: #### 5 7021-8 ####[facility] [id number] [place] [address] [place] Nucleated RBC (Bld) [#/Vol] 10*3/uL Normal <0.01 [facility] Comment on above: Order Comment: Speci men Type: BLOOD SPECIMENOrdering Facility: [facility] Address: [address] [place], [place] [address] Performed By: #### 5 7021-8 ####[facility] [id number] [place] [address] [place] Nucleated RBC/100 WBC (Bld) [Ratio] 0.0 /100 WBC Normal [facility] Comment on above: Order Comment: Speci men Type: BLOOD SPECIMENOrdering Facility: [facility] Address: [address] [place], [place] [address] Performed By: #### 5 7021-8 ####[facility] [id number] [place] [address] [place] Platelet mean volume (Bld) [Entitic vol] 9.7 fL Normal 9.0-12.7 [facility] Comment on above: Order Comment: Speci men Type: BLOOD SPECIMENOrdering Facility: [facility] Address: [address] [place] [address] Performed By: #### 5 7021-8 ####[facility] [id number] [place] [address] [place] Platelets (Bld) [#/Vol] 169 10*3/uL Normal 150-400 [facility] Comment on above: Order Comment: Speci men Type: BLOOD SPECIMENOrdering Facility: [facility] Address: [address] [place], [place] [address] Performed By: #### 5 7021-8 ####[facility] [id number] [place] [id number] [place] RBC (Bld) [#/Vol] 4.91 10*6/uL Normal 4.20-6.00 [facility] Comment on above: Order Comment: Speci men Type: BLOOD SPECIMENOrdering Facility: [facility] Address: [address] [place], [place] [address] Performed By: #### 5 7021-8 ####[facility] [id number] [place] [address] [place] WBC (Bld) [#/Vol] 7.06 10*3/uL Normal 3.70-11.00 [facility] Comment on above: Order Comment: Speci men Type: BLOOD SPECIMENOrdering Facility: [facility] Address: [address] [place] [address] Performed By: #### 5 7021-8 ####[facility]ORYCLIA [id number] [facility] [place] [address] [place] CT FLANK WO IVCONon 08-28-[address] FLANK WO IVCON * * *Final Report* * * DATE OF EXAM: Aug 28 2022 7:10AM [facility] 0529 - CT FLANK WO IVCON / PROCEDURE REASON: Calculus of kidney with calculus of ureter * * * * Physician Interpretation * * * * EXAMINATION: CT ABDOMEN AND PELVIS WITHOUT IV CONTRAST (Renal stone protocol) CLINICAL HISTORY: Calculus of kidney with calculus of ureter TECHNIQUE: Non-contrast imaging of the abdomen and pelvis was performed through the urinary tract. Study performed without intravenous or oral contrast to evaluate for urinary tract calculus. MQ: [id number] Contrast: IV contrast: None Oral contrast: None CT Radiation dose: Integrated dose-length product (DLP) for this visit = 849 mGy*cm. CT Dose Reduction Employed: Automated exposure control (AEC) COMPARISON: Outside hospital radiograph 07/19/2022 RESULT: Urinary Tract: Right kidney and ureter: No hydronephrosis or urolithiasis. 3.4 cm cystic structure upper pole right kidney. Left kidney and ureter: Left-sided double-J ureteral stent in place. Extensive amount of calculi throughout the left ureter. Difficult to accurately measure but at least measuring up to 6 mm. Left intrarenal calculi also present including the largest measuring 1.2 cm. Left-sided perinephric fat stranding and fullness of the left ureter is noted. Bladder: 3 mm layering calculus along the posterior left bladder wall. Abdomen / Pelvis: Liver: No focal hepatic lesions. Spleen: No focal splenic lesion. Pancreas: No focal pancreatic lesions. Adrenals: No mass. Biliary: No bile duct dilation. No gallbladder wall thickening. Vasculature: Abdominal aorta is normal in caliber. GI tract: No bowel obstruction. Colonic diverticulosis without acute diverticulitis. Normal appendix. Small hiatal hernia. Lymph nodes: No lymphadenopathy by CT size criteria. Mesentery/Peritoneum: No ascites, fluid collection, or mass. Pelvis: Prostate gland is enlarged and impresses on the urinary bladder base. Bones/Soft Tissues: No aggressive osseous lesions. Lower thorax: Lower lungs are clear. Banking Officer (topogram) images: Unremarkable. IMPRESSION: Extensive amount of left-sided urolithiasis with left-sided double-J ureteral stent in place. Associate Professor Of Biology: PSCGurpreet Transcribe Date/Time: Aug 28 2022 10:17A Dictated by : CECE GALVIN MD This examination was interpreted and the report reviewed and electronically signed by: CECE GALVIN MD on Aug 28 2022 10:31AM EST [id number] Normal [facility] Comprehensive metabolic 2000 panelon 08-28-2022 Albumin [Mass/Vol] 4.5 g/dL Normal 3.9-4.9 [facility] Comment on above: Order Comment: Speci men Type: BLOOD SPECIMENOrdering Facility: [facility] Address: [address] [place] [address] Performed By: #### 2 4323-8 ####[facility] [id number] [place] [address] [place] ALP [Catalytic activity/Vol] 99 U/L Normal 38-113 [facility] Comment on above: Order Comment: Speci men Type: BLOOD SPECIMENOrdering Facility: [facility] Address: [address] [place] [address] Performed By: #### 2 4323-8 ####[facility] [id number] [place] [address] [place] ALT [Catalytic activity/Vol] 17 U/L Normal 10-54 [facility] Comment on above: Order Comment: Speci men Type: BLOOD SPECIMENOrdering Facility: [facility] Address: [address] [address] Performed By: #### 2 4323-8 ####[facility] [id number] [place] [address] [place] Anion gap [Moles/Vol] 9 mmol/L Normal 9-18 [facility] Comment on above: Order Comment: Speci men Type: BLOOD SPECIMENOrdering Facility: [facility] Address: [address] [place], [place] [address] Performed By: #### 2 4323-8 ####[facility]ORY[facility]IA [id number] [place] [address] [place] AST [Catalytic activity/Vol] 20 U/L Normal 14-40 [facility] Comment on above: Order Comment: Speci men Type: BLOOD SPECIMENOrdering Facility: [facility] Address: [address] [place], [place] [address] Performed By: #### 2 4323-8 ####[facility]ORY[facility]IA [id number] [place] [address] [place] Bilirubin [Mass/Vol] 0.2 mg/dL Normal 0.2-1.3 [facility] Comment on above: Order Comment: Speci men Type: BLOOD SPECIMENOrdering Facility: [facility] Address: [address] [place], [place] [address] Performed By: #### 2 4323-8 ####[facility] [id number] [place] [address] [place] Calcium [Mass/Vol] 9.5 mg/dL Normal 8.5-10.2 [facility] Comment on above: Order Comment: Speci men Type: BLOOD SPECIMENOrdering Facility: [facility] Address: [address] [place], [place] [address] Performed By: #### 2 4323-8 ####[facility]ORYCLIA [id number] [place] [address] [place] Chloride [Moles/Vol] 106 mmol/L High 97-105 [facility] Comment on above: Order Comment: Speci men Type: BLOOD SPECIMENOrdering Facility: [facility] Address: [address] [place], [place] [address] Performed By: #### 2 4323-8 ####[facility]ORY[facility]IA [id number] [place] [address] [place] CO2 [Moles/Vol] 25 mmol/L Normal 22-30 [facility] Comment on above: Order Comment: Speci men Type: BLOOD SPECIMENOrdering Facility: [facility] Address: [address] [place] [address] Performed By: #### 2 4323-8 ####[facility] [id number] [address] [place] Creatinine [Mass/Vol] 1.22 mg/dL Normal 0.73-1.22 [facility] Comment on above: Order Comment: Speci men Type: BLOOD SPECIMENOrdering Facility: [facility] Address: [address] [place] [address] Performed By: #### 2 4323-8 ####[facility] [id number] [address] ESTIMATED GLOMERULAR FILTRATION RATE 68 mL/min/1.73m??? Normal >=60 [facility] Comment on above: Order Comment: Speci men Type: BLOOD SPECIMENOrdering Facility: [facility] Address: [address] [place] [address] Result Comment: Carole mated Glomerular Filtration Rate (eGFR) is calculated using the 2020 CKD-EPI creatinine equation. This equation utilizes serum creatinine, sex, and age as parameters. The creatinine assay has traceable calibration to isotope dilution-mass spectrometry. Refer to KDIGO guidelines for clinical interpretation. In patients with unstable renal function, e.g. those with acute kidney injury, the eGFR may not accurately reflect actual GFR. Performed By: #### 2 4323-8 ####[facility] [id number] [address] [place] Glucose [Mass/Vol] 158 mg/dL High 74-99 [facility] Comment on above: Order Comment: Speci men Type: BLOOD SPECIMENOrdering Facility: [facility] Address: [address] [place] [address] Result Comment: The [place] [employer] (ADA) provides guidance for cutoff values for fasting glucose and random glucose. The ADA defines fasting as no caloric intake for at least 8 hours. Fasting plasma glucose results between 100 to 125 mg/dL indicate increased risk for diabetes (prediabetes). Fasting plasma glucose results greater than or equal to 126 mg/dL meet the criteria for diagnosis of diabetes. In the absence of unequivocal hyperglycemia, results should be confirmed by repeat testing. In a patient with classic symptoms of hyperglycemia or hyperglycemic crisis, random plasma glucose results greater than or equal to 200 mg/dL meet the criteria for diagnosis of diabetes. Reference: Standards of Medical Care in Diabetes 2016, [place] [employer]. Diabetes Care. 2016.39(Suppl 1). Performed By: #### 2 4323-8 ####[facility]ORYCLIA [id number] [place] [address] [place] Potassium [Moles/Vol] 4.7 mmol/L Normal 3.7-5.1 [facility] Comment on above: Order Comment: Shereeni men Type: BLOOD SPECIMENOrdering Facility: [facility] Address: [address] [place] [address] Performed By: #### 2 4323-8 ####[facility] [id number] [place] [address] [place] Protein [Mass/Vol] 6.7 g/dL Normal 6.3-8.0 [facility] Comment on above: Order Comment: Shereeni murphy Type: BLOOD SPECIMENOrdering Facility: [facility] Address: [address] [place] [address] Performed By: #### 2 4323-8 ####[facility]ATORYCLIA [id number] [place] [address] [place] Sodium [Moles/Vol] 140 mmol/L Normal 136-144 [facility] Comment on above: Order Comment: Shereeni men Type: BLOOD SPECIMENOrdering Facility: [facility] Address: [address] [address] Performed By: #### 2 4323-8 ####[facility]ATORYCLIA [id number] [place] [address] [place] Urea nitrogen [Mass/Vol] 23 mg/dL Normal 9-24 [facility] Comment on above: Order Comment: Speci men Type: BLOOD SPECIMENOrdering Facility: [facility] Address: [address] [place] [address] Performed By: #### 2 4323-8 ####[facility]ORATORYCLIA [id number] [facility] [address] [facility] HISTORY PHYSICALon HISTORY PHYSICAL HNO ID: [id number] Author: Mechelle Burnett PA-C Service: ? Author Type: Physician Merchant Patroller Type: HANDP Filed: 08/29/2022 9:43 AM Note Text: HISTORY AND PHYSICAL EXAMINATION SERVICE DATE: 08/28/2022 SERVICE TIME: 9:10 AM PRIMARY CARE PHYSICIAN: No primary care provider on file. REASON FOR VISIT: Dat Lopez is a 62 year old male who is scheduled for LEFT percutaneous nephrolithotomy at the request of Dr. Noelle Vega for consultation. My final recommendation will be communicated back to the requesting physician by way of shared medical record or letter. The patient has the following: ACTIVE PROBLEM LIST Bladder Cancer (Hcc) Hypertension Hyperlipidemia Type 2 Diabetes Mellitus Without Complication, With Long-Term Current Use of Insulin (Hcc) Pots (Postural Orthostatic Tachycardia Syndrome) Kunal (Obstructive Sleep Apnea) Bmi 34.0-34.9,Adult Subjective CHIEF COMPLAINT: Nephrolithiasis HPI: Patient is a 62 year old male presenting to pre-anesthesia consultation. Patient fell in March 2022. Afterwards he noticed hematuria. After further work-up it was found he had many left kidney stones. He has undergone multiple lithotripsies and laser procedures. He continues to have hematuria, but denies any dysuria or increased frequency. He has a history of right kidney stones in 2003 which required lithotripsy, but has not had any issues until now. He has been diagnosed with nephrolithiasis and has been recommended for the above surgery. 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 Gross hematuria Nephrolithiasis POTS (postural orthostatic tachycardia syndrome) PAST SURGICAL HISTORY Procedure Laterality Date COLONOSCOPY SCREENING x2 CT CRYOABLATION BONE TUMOR Right 2001 rigth femur CYSTOSCOPY,URETEROSCOPY,L ITHOTRIPSY Left multiple in 2021 CYSTOSCOPY,URETEROSCOPY,L ITHOTRIPSY Right 2003 ESWL Left PAST SURGICAL HISTORY OF Left multiple ankle surgeries FAMILY HISTORY Problem Relation Age of Onset Ovarian cancer Mother Diabetes Mother Prostate Cancer Father other (atrial fibrillation) Father Breast Cancer Sister SOCIAL HISTORY: Social History Tobacco Use Smoking status: Never Passive exposure: Past Smokeless tobacco: Never Substance Use Topics Alcohol use: Not Currently Drug use: Never MEDICATIONS: Prior to Admission medications as of 08/28/22 0992 Medication Sig Last Dose Taking metFORMIN (GLUCOPHAGE) 1,000 mg tablet Take 1,000 mg by mouth twice daily. Taking Yes pravastatin (PRAVACHOL) 40 mg tablet Take 40 mg by mouth once daily. Taking Yes metoprolol succinate ER (TOPROL XL) 50 mg 24 hr tablet Take 50 mg by mouth once daily. Taking Yes amlodipine besylate (AMLODIPINE ORAL) Take 5 mg by mouth. Taking Yes gabapentin (NEURONTIN) 100 mg capsule Take 100 mg by mouth three times daily. Taking Yes sertraline (ZOLOFT) 100 mg tablet Take 100 mg by mouth once daily. Taking Yes losartan (COZAAR) 100 mg tablet Take 100 mg by mouth once daily. Taking Yes insulin glargine (LANTUS SOLOSTAR, BASAGLAR KWIKPEN) 100 unit/mL (3 mL) Basaglar KwikPen U-100 Insulin 100 unit/mL (3 mL) subcutaneous INJECT 55 UNITS SUBCUTANEOUSLY ONCE A DAY Taking Yes BASAGLAR KWIKPEN U-100 INSULIN 100 unit/mL (3 mL) INJECT 50 UNITS SUBCUTANEOUSLY ONCE A DAY Taking Yes Tadalafil 5 mg tablet Take 10 mg by mouth once daily. Taking Differently Yes coenzyme Q10 (COENZYME Q-10) 100 mg cap capsule Take 100 mg by mouth once daily. Taking Yes multivitamin (MULTI-DAY ORAL) Take by mouth. Taking Yes melatonin 10 mg tab Take 20 mg by mouth. Taking Yes No medication comments found. CURRENT ALLERGIES: ALLERGIES Allergen Reactions Actose [Pioglitazon* Swelling Petechiae Byetta [Exenatide] Vomiting Valium [Diazepam] GI Upset COVID VACCINATION STATUS: Fully vaccinated REVIEW OF SYSTEMS: PAIN ASSESSMENT: General: No weight loss, malaise or fevers. Neuro: No history of TIA's, stroke, DRIER tumor, impaired sensorium, hemiplegia, paraplegia or quadraplegia. No neurological symptoms or problems. Respiratory: No history of current cough or dyspnea, or pneumonia in the past 6 weeks. No history of respiratory/pulmonary symptoms or problems. Cardiovascular: +HTN, HLD, POTS- no recent episodes Negative for Recent NC, Angina, Chest Pain, CHF, DVT/PE GI: No history of GI symptoms or problems. No history of esophageal varices, recent ascites, or ETOH greater than 2 drinks per day. : +BPH See HPI Endocrine: +DMII Denies any history of other endocrine symptoms/problems. Hematology: No history of bleeding or clotting disorder. Pt is not taking anti-coagulation or platelet medications. No history of hematological symptoms or problems. Oncology: +bladder cancer- no chemo or radiation Psych: No history of psychiatric symptoms or problems. Musc (more content not included)... Normal [facility] HbA1c (Bld)on 08-28-2022 Average glucose Estimated from glycated hemoglobin (Bld) [Mass/Vol] 131 mg/dL Normal [facility] Comment on above: Order Comment: Demar arrington Type: BLOOD SPECIMEN [facility] Address: [address] [address] Result Comment: eAG: (Estimated average glucose) is a calculated value from HgbA1c and is inbound call center representative of the average blood glucose level in the last 2-3 month period. Performed By: #### 5 8410-2 #### [facility] CLIA [id number] STATES OF [facility] HbA1c (Bld) [Mass fraction] 6.2 % High 4.3-5.6 [facility] Comment on above: Order Comment: Demar arrington Type: BLOOD SPECIMEN [facility] Address: [address] [address] Result Comment: [place] Diabetes Association guidelines indicate that patients with HgbA1c in the range 5.7-6.4% are at increased risk for development of diabetes, and intervention by lifestyle modification may be beneficial. HgbA1c greater or equal to 6.5% is considered diagnostic of diabetes. Performed By: #### 5 8410-2 #### [facility] CLIA [id number] [place] [address] [place] PT panel Coag (PPP)on 2021 INR Coag (PPP) [Relative time] 1.0 {INR} Normal 0.9-1.3 [facility] Comment on above: Order Comment: Demar arrington Type: BLOOD SPECIMEN [facility] Address: [address] [id number] Result Comment: No min K Antagonist (VKA) Therapeutic Range: INR 2 to 3 (Target INR of 2.5) Note: For patients treated with VKA drugs, such as warfarin, the [place] [employer] 2012 Guideline recommends a therapeutic INR range of 2 to 3 (target INR of 2.5). This recommendation includes high-risk patients with antiphospholipid syndrome with previous arterial or venous thromboembolism, current-generation mechanical or bioprosthetic aortic heart valve replacement. Note: Patients with mechanical aortic valve replacement and additional risk factors for thromboembolic events (atrial fibrillation, previous thromboembolism, LV dysfunction, hypercoagulable conditions) or an older generation mechanical AVR (i.e., ball in-Cage) or any mechanical MVR should have a INR therapeutic range of 2.5 to 3.5 (target INR of 3). Gina GH, et al. Chest 2012, 141:7S-47S Soo RA, et al. [facility] 2017, 70: 252-289 Performed By: #### 5 8410-2 #### [facility] CLIA [id number] [place] [address] [place] PT Coag (PPP) [Time] 10.3 s Normal 9.7-13.0 [facility] Comment on above: Order Comment: Demar arrington Type: BLOOD SPECIMEN [facility] Address: [address] [place] [address] Performed By: #### 5 8410-2 #### [facility] CLIA [id number] [address] [place] [address] [place] PTH-Intact SerPl-ncon 08-19 Parathyrin.intact [Mass/Vol] 26 pg/mL Normal 15-65 [facility] Comment on above: Order Comment: Demar arrington Type: BLOOD SPECIMEN [facility] Address: [address] [place] [address] Performed By: #### 5 8410-2 #### [facility] CLIA [id number] [address] [id number] [facility] TYPE AND SCREEN,30 DAYon ABO O Normal [facility] Comment on above: Order Comment: Speci men Type: BLOOD SPECIMENOrdering Facility: [facility] Address: [address] [place] [address] Performed By: #### T SCR30 ####[facility] [id number] [address] [place] HISTORICAL AB SCR STATUS Negative Normal [facility] Comment on above: Order Comment: Speci men Type: BLOOD SPECIMENOrdering Facility: [facility] Address: [address] [place] [address] Performed By: #### T SCR30 ####[facility] [id number] [place] [address] [place] Rh Nom (Bld) Positive Normal [facility] Comment on above: Order Comment: Speci men Type: BLOOD SPECIMENOrdering Facility: [facility] Address: [address] [place] [address] Performed By: #### T SCR30 ####[place] [facility] [id number] [address] [place] Urinalysis complete panel (U )on 08-28-2022 Bilirubin Ql (U) Negative Normal Negative [facility] Comment on above: Order Comment: Speci men Type: BLOOD SPECIMEN [facility] Address: [address] [place] [address] Performed By: #### 5 8410-2 #### [facility] CLIA [id number] [address] [place] [address] [place] Clarity (Unsp spec) Cloudy Abnormal Clear [facility] Comment on above: Order Comment: Speci men Type: BLOOD SPECIMEN [facility] Address: [address] [place] [address] Performed By: #### 5 8410-2 #### [facility] [place] [id number] [address] [place] [address] [place] Color (U) [employer] Abnormal Yellow [facility] Comment on above: Order Comment: Speci men Type: BLOOD SPECIMEN [facility] Address: [address] [place] [address] Performed By: #### 5 8410-2 #### [facility] [place] [id number] [address] [place] [address] [place] Glucose Test strip (U) [Mass/Vol] Negative Normal Negative [facility] Comment on above: Order Comment: Speci men Type: BLOOD SPECIMEN [facility] Address: [address] [place] [address] Performed By: #### 5 8410-2 #### [facility] [place] [id number] [address] [place] [address] [place] Hemoglobin Ql (U) 3+ Abnormal Negative [facility] Comment on above: Order Comment: Speci men Type: BLOOD SPECIMEN [facility] Address: [address] [place] [address] Performed By: #### 5 8410-2 #### [facility] [place] [id number] [address] [place] [address] [place] Ketones Ql (U) Negative Normal Negative [facility] Comment on above: Order Comment: Speci men Type: BLOOD SPECIMEN [facility] Address: [address] [place] [address] Performed By: #### 5 8410-2 #### [facility] IA [id number] [address] [place] [address] [place] Leukocyte esterase Test strip Ql (U) 1+ Abnormal Negative [facility] Comment on above: Order Comment: Speci men Type: BLOOD SPECIMEN [facility] Address: [address] [address] Performed By: #### 5 8410-2 #### [facility] [place] [id number] [address] [place] [address] [place] Nitrite Ql (U) Negative Normal Negative [facility] Comment on above: Order Comment: Speci men Type: BLOOD SPECIMEN [facility] Address: [address] [place] [address] Performed By: #### 5 8410-2 #### [facility] IA [id number] [address] [place] [address] [place] pH (U) 5.5 [pH] Normal 5.0-8.0 [facility] Comment on above: Order Comment: Speci men Type: BLOOD SPECIMEN [facility] Address: [address] [place] [address] Performed By: #### 5 8410-2 #### [facility] [id number] [address] [place] [address] [place] Protein (U) [Mass/Vol] Normal [facility] Comment on above: Order Comment: Speci men Type: BLOOD SPECIMEN [facility] Address: [address] [place] [address] Result Comment: Visi ble blood causes falsely elevated results for analyte Protein. Due to this limitation, Protein will not be reported for patients whose urine contains visible blood. Performed By: #### 5 8410-2 #### [facility] IA [id number] [address] [place] [address] [place] RBC LM.HPF (Urine sed) [#/Area] 11-25 /HPF Abnormal 0-3 /HPF [facility] Comment on above: Order Comment: Speci men Type: BLOOD SPECIMEN [facility] Address: [address] [place] [address] Performed By: #### 5 8410-2 #### [facility] IA [id number] [address] [place] [address] [place] Specific gravity (U) [Rel density] 1.014 Normal 1.005-1.030 [facility] Comment on above: Order Comment: Speci men Type: BLOOD SPECIMEN [facility] Address: [address] [place] [address] Performed By: #### 5 8410-2 #### [facility] [place] [id number] Urobilinogen Ql (U) 0.2 EU/dL Normal 0.2-1.0 EU/dL [facility] Comment on above: Order Comment: Speci men Type: BLOOD SPECIMEN [facility] Address: [address] [place] [address] Performed By: #### 5 8410-2 #### [facility] IA [id number] [address] [place] [address] WBC LM.HPF (Urine sed) [#/Area] 6-10 /HPF Abnormal 0-5 /HPF [facility] Comment on above: Order Comment: Speci men Type: BLOOD SPECIMEN [facility] Address: [address] [place] [address] Performed By: #### 5 8410-2 #### [facility] [place] [id number] [address] [place] [address] aPTT PPPon 08-28-2022 aPTT Coag (PPP) [Time] 27.0 s Normal 23.0-32.4 [facility] Comment on above: Order Comment: Speci men Type: BLOOD SPECIMEN [facility] Address: [address] [place] [address] Performed By: #### 5 8410-2 #### [facility] IA [id number] [address] [place] [address] CNPAnali 08-25-2022 CNPN Telephone (URFMOB) ----- DAT LOPEZ ([id number]) 1960 M Date Time Provider Department 08/25/22 NOELLE VEGA During your visit today, we recorded the following information about you: Eddie Adam Freed Pss 08/25/2022 4:43 PM Signed Patient is inquiring on the consult to cardiology request for cardiac clearance. Patient states that he does not have a cardiac condition and only sees Dr. Raymond because they have him on medication that makes his blood pressure a little higher because his condition only makes his blood pressure drop when he sits up or gets up. He states he would be would like to discuss with nurse or Dr. Vega to determine what cardiac clearance is needed prior to procedure. Please call. Evelyn Hicks RN 08/28/2022 9:00 AM Signed Called patient and spoke with . Did inform that per Dr. Vega, cardiac clearance is most likely not needed and the PACC appointment should do. Patient currently at his pre-op scheduled appointments, and will call if he has any further questions. Office phone number provided to . Understanding verbalized. Evelyn Hicks RN August 28, 2022 9:00 AM Allergies As of Date: 08/25/2022 Noted Allergy Reaction ACTOSE (PIOGLITAZONE) 11/18/2019 7 - Swelling Comments: Petechiae BYETTA (EXENATIDE) 11/18/2019 11 - Vomiting VALIUM (DIAZEPAM) 11/18/2019 8 - GI Upset Date Reviewed: 08/11/2022 Reviewed by: Noelle Vega MD - Fully Assessed Reason for Visit: Patient Question [8294] Prescriptions as of 08/28/2022 - metFORMIN (GLUCOPHAGE) 1,000 mg tablet Take 1,000 mg by mouth twice daily. - pravastatin (PRAVACHOL) 40 mg tablet Take 40 mg by mouth once daily. - metoprolol succinate ER (TOPROL XL) 50 mg 24 hr tablet Take 50 mg by mouth once daily. - amlodipine besylate (AMLODIPINE ORAL) Take 5 mg by mouth. - gabapentin (NEURONTIN) 100 mg capsule Take 100 mg by mouth three times daily. - sertraline (ZOLOFT) 100 mg tablet Take 100 mg by mouth once daily. - losartan (COZAAR) 100 mg tablet Take 100 mg by mouth once daily. - insulin glargine (LANTUS SOLOSTAR, BASAGLAR KWIKPEN) 100 unit/mL (3 mL) Basaglar KwikPen U-100 Insulin 100 unit/mL (3 mL) subcutaneous INJECT 55 UNITS SUBCUTANEOUSLY ONCE A DAY - BASAGLAR KWIKPEN U-100 INSULIN 100 unit/mL (3 mL) INJECT 50 UNITS SUBCUTANEOUSLY ONCE A DAY - Tadalafil 5 mg tablet Take 1 tablet by mouth once daily. - coenzyme Q10 (COENZYME Q-10) 100 mg cap capsule Take 100 mg by mouth once daily. - multivitamin (MULTI-DAY ORAL) Take by mouth. - melatonin 10 mg tab Take 20 mg by mouth. Problem List As Of Date 08/25/2022 Noted Resolved Bladder cancer (HCC) [C67.9] 08/24/2022 Hypertension [I10] 08/24/2022 Hyperlipidemia [E78.5] 08/24/2022 Type 2 diabetes mellitus without complication, *08/24/2022 POTS (postural orthostatic tachycardia syndrome*08/24/2022 Encounter Status:Closed by EVELYN HICKS on 08/28/22 [facility] Telephone (URThe Pratley CompanyOB) ----- DAT LOPEZ ([id number]) 1960 M Date Time Provider Department 08/24/22 NOELLE VEGA During your visit today, we recorded the following information about you: Eddie Freed [facility] 08/24/2022 3:53 PM Signed Called patient to review preop appts and instructions. Unable to leave message, no vm available. Eddie Freed Pss 08/25/2022 4:36 PM Signed Patient scheduled for surgery on 09/11 at [facility] for PERCUTANEOUS NEPHROLITHOTOMY [0247] - Kidney - Left. Patient will be informed of surgery time the day before surgery between 1pm-4pm. PAT is scheduled for 08/28. Was Urine Culture ordered or done: Yes Does patient have catheter or nephrostomy tube:No If yes was Urology nurse appointment made: No Was lab appointment made: Yes: Date: 08/28/22 Date range patient was told to go to lab: NA Preop instructions provided. Patient verbalized understanding. Allergies As of Date: 08/24/2022 Noted Allergy Reaction ACTOSE (PIOGLITAZONE) 11/18/2019 7 - Swelling Comments: Petechiae BYETTA (EXENATIDE) 11/18/2019 11 - Vomiting VALIUM (DIAZEPAM) 11/18/2019 8 - GI Upset Date Reviewed: 08/11/2022 Reviewed by: Noelle Vega MD - Fully Assessed Reason for Visit: Schedule Surgery [1330] Prescriptions as of 08/25/2022 - metFORMIN (GLUCOPHAGE) 1,000 mg tablet Take 1,000 mg by mouth twice daily. - pravastatin (PRAVACHOL) 40 mg tablet Take 40 mg by mouth once daily. - metoprolol succinate ER (TOPROL XL) 50 mg 24 hr tablet Take 50 mg by mouth once daily. - amlodipine besylate (AMLODIPINE ORAL) Take 5 mg by mouth. - gabapentin (NEURONTIN) 100 mg capsule Take 100 mg by mouth three times daily. - sertraline (ZOLOFT) 100 mg tablet Take 100 mg by mouth once daily. - losartan (COZAAR) 100 mg tablet Take 100 mg by mouth once daily. - insulin glargine (LANTUS SOLOSTAR, BASAGLAR KWIKPEN) 100 unit/mL (3 mL) Basaglar KwikPen U-100 Insulin 100 unit/mL (3 mL) subcutaneous INJECT 55 UNITS SUBCUTANEOUSLY ONCE A DAY - BASAGLAR KWIKPEN U-100 INSULIN 100 unit/mL (3 mL) INJECT 50 UNITS SUBCUTANEOUSLY ONCE A DAY - Tadalafil 5 mg tablet Take 1 tablet by mouth once daily. - coenzyme Q10 (COENZYME Q-10) 100 mg cap capsule Take 100 mg by mouth once daily. - multivitamin (MULTI-DAY ORAL) Take by mouth. - melatonin 10 mg tab Take 20 mg by mouth. Problem List As Of Date 08/24/2022 Noted Resolved Bladder cancer (HCC) [C67.9] 08/24/2022 Hypertension [I10] 08/24/2022 Hyperlipidemia [E78.5] 08/24/2022 Type 2 diabetes mellitus without complication, *08/24/2022 POTS (postural orthostatic tachycardia syndrome*08/24/2022 Encounter Status:Closed by EDDIE MORENO on 08/25/22 [facility] 08-16-2022 CNPN Telephone (UROLAV) ----- DAT LOPEZ ([id number]) 1960 M Date Time Provider Department 08/16/22 NOELLE VEGA During your visit today, we recorded the following information about you: Bienvenido Nehemias Venegas 08/16/2022 5:26 PM Signed Images from cd have been uploaded into patient's chart. I spoke with patient and he does not need the cd back. I am putting it in the admin office to be destroyed. Allergies As of Date: 08/16/2022 Noted Allergy Reaction ACTOSE (PIOGLITAZONE) 11/18/2019 7 - Swelling Comments: Petechiae BYETTA (EXENATIDE) 11/18/2019 11 - Vomiting VALIUM (DIAZEPAM) 11/18/2019 8 - GI Upset Date Reviewed: 08/11/2022 Reviewed by: Noelle Vega MD - Fully Assessed Reason for Visit: Other [Other] Cmt: CD from [facility] XR KUB Prescriptions as of 08/16/2022 - metFORMIN (GLUCOPHAGE) 1,000 mg tablet Take 1,000 mg by mouth twice daily. - pravastatin (PRAVACHOL) 40 mg tablet Take 40 mg by mouth once daily. - metoprolol succinate ER (TOPROL XL) 50 mg 24 hr tablet Take 50 mg by mouth once daily. - amlodipine besylate (AMLODIPINE ORAL) Take 5 mg by mouth. - gabapentin (NEURONTIN) 100 mg capsule Take 100 mg by mouth three times daily. - sertraline (ZOLOFT) 100 mg tablet Take 100 mg by mouth once daily. - losartan (COZAAR) 100 mg tablet Take 100 mg by mouth once daily. - insulin glargine (LANTUS SOLOSTAR, BASAGLAR KWIKPEN) 100 unit/mL (3 mL) Basaglar KwikPen U-100 Insulin 100 unit/mL (3 mL) subcutaneous INJECT 55 UNITS SUBCUTANEOUSLY ONCE A DAY - BASAGLAR KWIKPEN U-100 INSULIN 100 unit/mL (3 mL) INJECT 50 UNITS SUBCUTANEOUSLY ONCE A DAY - Tadalafil 5 mg tablet Take 1 tablet by mouth once daily. - coenzyme Q10 (COENZYME Q-10) 100 mg cap capsule Take 100 mg by mouth once daily. - multivitamin (MULTI-DAY ORAL) Take by mouth. - melatonin 10 mg tab Take 20 mg by mouth. Problem List As Of Date: 08/16/2022 (None) Encounter Status:Closed by BIENVENIDO DEL CID MA on 08/16/22 [facility] [place] 08-11-2022 CNOV Office Visit (UROLAV ) ----- DAT LOPEZ James ([id number]) 1960 M Date Time Provider Department 08/11/22 11:00 AM NOELLE VEGA During your visit today, we recorded the following information about you: Pulse Blood pressure Weight 66/minute 176/89 99.8 kg Noelle Vega MD 08/11/2022 11:28 AM Signed [facility] NEW PATIENT HISTORY AND PHYSICAL EXAM PATIENT INFO: Dat Lopez 62 year old REFERRING M.D.: Pelon Coles [address] [place] [address] PCP: No primary care provider on file. Date of Service: August 11, [address] Lee for an opinion regarding kidney stones and my final recommendations will be communicated back to the requesting physician by way of shared Medical record or letter via [place] mail. CHIEF COMPLAINT: Nephrolithiasis HPI: This is a 62 year old male BPH with LUTS s/p Rezum, prostate nodule, ED, gross hematuria, bladder cancer, T1HG in 2007. . Patient describes falling on his deck in March 2022. Developed tea colored urine. CT was ordered and demonstrated Left NL, multiple stones. ESWL was performed. [facility]. Then URS x 2 and ureteral stent placement. Last procedure and stent placement was in June. Outside CT A/P 07/20/22 demonstrates left NL. KUB 07/20/22, left stones visible on KUB. Left double J stent in place. MRI prostate 07/20/22, not concerning for malignancy. PSA in 2017: 7.62 The patient denies flank pain, fever, shaking chills, gross hematuria, urgency, frequency, dysuria, incontinence, nausea, vomiting, and pain at this time. Passing stone fragments. Unknown if they were analyzed. 1-Duration: 2021 2-Location: urine, kidney 3-Severity: N/A 4-Quality: NA 5-Context: Imaging 6-Timing: intermittently 7-Modifying factors: No treatment prior to referral Hx of Rezum. 8-Associated signs AND symptoms: no additional symptoms LUTS: No Dysuria:No Gross Hematuria: occasional Frequency:No Nocturnal Frequency 1 x/ night Urgency:No Personal or family hx of malignancy. Father with prostate ca. Patient with bladder Ca. Personal hx of stones: yes, prior right NL Family Hx of stones: no. PATHOLOGY: Stone Analysis: none to review Urine Culture None to review LABS: No results found for: CREAT No results found for: PSA URINALYSIS: No results found for: PH, SPGR, UGLUC, UBILI, UKET, UHB, UPROT, UROBIL, NITRITES, UWBC, SSA IMAGING: Imaging Reviewed. Radiology report may be copied below for ease of reference. 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 pravastatin (PRAVACHOL) 40 mg tablet Take 40 mg by mouth once daily. metoprolol succinate ER (TOPROL XL) 50 mg 24 hr tablet Take 50 mg by mouth once daily. amlodipine besylate (AMLODIPINE ORAL) Take 5 mg by mouth. gabapentin (NEURONTIN) 100 mg capsule Take 100 mg by mouth three times daily. sertraline (ZOLOFT) 100 mg tablet Take 100 mg by mouth once daily. losartan (COZAAR) 100 mg tablet Take 100 mg by mouth once daily. insulin glargine (LANTUS SOLOSTAR, BASAGLAR KWIKPEN) 100 unit/mL (3 mL) Basaglar KwikPen U-100 Insulin 100 unit/mL (3 mL) subcutaneous INJECT 55 UNITS SUBCUTANEOUSLY ONCE A DAY BASAGLAR KWIKPEN U-100 INSULIN 100 unit/mL (3 mL) INJECT 50 UNITS SUBCUTANEOUSLY ONCE A DAY Tadalafil 5 mg tablet Take 1 tablet by mouth once daily. coenzyme Q10 (COENZYME Q-10) 100 mg cap capsule Take 100 mg by mouth once daily. multivitamin (MULTI-DAY ORAL) Take by mouth. melatonin 10 mg tab Take 20 mg by mouth. No current facility-administered medications for this visit. REVIEW OF SYSTEMS General: No weight loss, malaise or fevers., SEE HPI ENMT: No earaches, No hearing loss, No nose, sinus problems or snoring, No dry mouth, mouth ulcers or sore throat, No thrush Endocrine: (DM, thyroid) - b Eyes: Not Significant Respiratory: Negative for cough, wheezing or shortness of breath. Cardiovascular: Negative for chest pain, leg swelling or palpitations. Anticoagulation meds - No Gastrointestinal: Negative for abdominal discomfort, blood in stools or black stools or change in bowel habits Cruger (more content not included)... Normal [facility] UA DIP, URINE (POC)on 2021 BILIRUBIN UA (POCT) Negative Negative [facility] CLARITY UA (POCT) Slightly Cloudy [facility] COLOR UA (POCT) Yellow [facility] GLUCOSE UA (POCT) Negative Negative mg/dL [facility] HEMOGLOBIN/BLOOD UA (POCT) Large Abnormal Negative [facility] KETONE UA (POCT) Negative Negative [facility] (POCT) Small Abnormal Negative [facility] NITRITE UA (POCT) Negative [facility] PH UA (POCT) 5.5 4.5 - 8.0 [facility] Protein Ql (U) 30 mg/dL Abnormal Negative mg/dL [facility] SPECIFIC GRAVITY UA (POCT) 1.015 1.005 - 1.030 [facility] UROBILINOGEN UA (POCT) 0.2 E.U./dL Normal E.U./dL [facility] XR KUB 1 VIEWon 07-19-2022 XR KUB 1 VIEW EXAMINATION: XR KUB 1 VIEW HISTORY: Kidney stone COMPARISON: XR KUB 06/28/2022 FINDINGS: KIDNEY/URETER - RIGHT: No visible renal or ureteral calcifications. KIDNEY/URETER - LEFT: Numerous calcifications within the kidney up to 13 mm in size. Numerous calcifications within the proximal and mid ureter up to 6 mm. Left ureteral stent. PELVIS: Incidental phleboliths. BOWEL: No abnormal dilation or deviation. BONES: No acute abnormality. OTHER: Negative. No abnormal gaseous collections. IMPRESSION: 1. Grossly stable marked left nephrolithiasis and numerous left ureteral stones. 2. Stable left ureteral stent. Electronically authenticated by: GEMA OTTO Date: 2022-07-19 11:50 Normal [facility] XR KUB 1 VIEWon 06-29-2022 XR KUB 1 VIEW EXAMINATION: XR KUB 1 VIEW HISTORY: Kidney stone COMPARISON: No relevant comparison available. FINDINGS: KIDNEY/URETER - RIGHT: No visible renal or ureteral calcifications. KIDNEY/URETER - LEFT: Left double-J ureteral stent in normal position. Extensive nephrolithiasis and ureterolithiasis PELVIS: No visible ureteral calcifications. Any visible calcifications favor phleboliths. BOWEL: No abnormal dilation or deviation. BONES: Mild degenerative changes OTHER: Negative. No abnormal gaseous collections. IMPRESSION: Extensive left nephrolithiasis and ureterolithiasis with stable ureteral stent Electronically authenticated by: JI CULLEN Date: 2022-06-29 07:43 Normal [facility] CALCULI, URINARYon 2 2,8 Dihydroxyadenine Normal [facility] Comment on above: Performed By: #### C ALCULI #### [facility] [address] [address] [address] Nikky Man Ammonium Acid Urate Normal [facility] Comment on above: Performed By: #### C ALCULI #### [facility] [address] [address] [address] Nikky Man Bilirubin [facility]l ([facility] Comment on above: Performed By: #### C ALCULI #### [facility] [address] [address] [address] Nikky Man Ca Oxalate Dihydrate 10 % [facility] Comment on above: Performed By: #### C ALCULI #### [facility] [address] [place] [address] Dr. Nikky Man CaHPO4 (Brushite) [facility] Comment on above: Performed By: #### C ALCULI #### [facility] [address] [address] [address] Nikky Man Calcium Bilirubinate [facility] Comment on above: Performed By: #### C ALCULI #### [facility] [address] [place] [address] Dr. Nikky Man Calcium Carbonate [place] [facility] Comment on above: Performed By: #### C ALCULI #### [facility] [address] [address] [address] Nikky Man Calcium Oxalate Monohydrate 90 % [facility] Comment on above: Performed By: #### C ALCULI #### [facility] [address] [place] [address] Dr. Nikky Man Calcium Palmitate [place] [facility] Comment on above: Performed By: #### C ALCULI #### [facility] [address] [place] [address] Dr. Nikky Man Calcium Phosphate [place] [facility] Comment on above: Performed By: #### C ALCULI #### [facility] [address] [address] [address] Nikky Man Calcium Stearate Normal [facility] Comment on above: Performed By: #### C ALCULI #### [facility] [address] [address] [address] Nikky Man Carbonate Apatite Normal [facility] Comment on above: Performed By: #### C ALCULI #### [facility] [address] [address] [address] Nikky Man Cellular Material Normal [facility] Comment on above: Performed By: #### C ALCULI #### [facility] [address] [address] [address] Nikky Man Cholesterol [facility] Comment on above: Performed By: #### C ALCULI #### [facility] [address] [place] [address] Dr. Nikky Man Color (U) Trammell Normal [facility] Comment on above: Performed By: #### C ALCULI #### [facility] [address] [place] [address] Dr. Nikky Man Comment [facility] Comment on above: Performed By: #### C ALCULI #### [facility] [address] [address] [address] Nikky Man Comment Comment Normal [facility] Comment on above: Result Comment: Calc ulus received in liquid. Wet calculi must be dried before analysis, which delays reporting of results. Leaving calculi in liquid (such as water, saline, blood, urine) may lead to changes in composition. Performed By: #### C ALCULI #### [facility] [address] [place] [address] Dr. Nikky Man Comment: Comment Normal [facility] Comment on above: Result Comment: Kaycee valenzuela questions regarding Calculi Analysis contact [facility] at: [phone]. Performed By: #### C ALCULI #### [facility] [address] [place] [address] Dr. Nikky Man Composition Comment Normal [facility] Comment on above: Result Comment: Perc entage (Represents the % composition) Performed By: #### C ALCULI #### [facility] [address] [address] [address] Nikky Man Cystine [facility] Comment on above: Performed By: #### C ALCULI #### [facility] [address] [address] [address] Nikky Man Disclaimer: Comment Normal [facility] Comment on above: Result Comment: This test was developed and its performance characteristics determined by [employer]. It has not been cleared or approved by the Food and Drug Administration. Performed By: #### C ALCULI #### [facility] [address] [address] [address] Nikky Man Dried Blood [facility] Comment on above: Performed By: #### C ALCULI #### [facility] [address] [place] [address] Dr. Nikky Man Drug or Metabolite Normal [facility] Comment on above: Performed By: #### C ALCULI #### [facility] [address] [place] [address] Dr. Nikky Man Hydroxyapatite Normal [facility] Comment on above: Performed By: #### C ALCULI #### [facility] [address] [place] [address] Dr. Nikky Man Mg NH4 PO4 (Struvite) [facility] Comment on above: Performed By: #### C ALCULI #### [facility] [address] [place] [address] Dr. Nikky Man MgHPO4 (Newberyite) [facility] Comment on above: Performed By: #### C ALCULI #### [facility] [address] [address] [address] Nikky Man Other component(s) Normal [facility] Comment on above: Performed By: #### C ALCULI #### [facility] [address] [place] [address] Dr. Nikky Man PDF . Normal [facility] Comment on above: Performed By: #### C ALCULI #### [facility] [address] [place], [place] [id number] Dr. Nikky Man Photo Comment Normal [facility] Comment on above: Result Comment: Phot ograph will follow under a separate cover Performed By: #### C ALCULI #### [facility] [address] [address] [address] Nikky Man Please note: Comment Normal [facility] Comment on above: Result Comment: Calc aishwarya report will follow via computer, mail or reroller hand delivery. Performed By: #### C ALCULI #### [facility] [address] [address] [address] Nikky Man Size 3x2 Normal [facility] Comment on above: Result Comment: Mult iple pieces received. Dimensions of the largest piece reported. Performed By: #### C ALCULI #### [facility] [address] [place] [address] Dr. Nikky Man Sodium Acid Urate Normal [facility] Comment on above: Performed By: #### C ALCULI #### [facility] [address] [address] [address] Nikky Man Source Comment Normal [facility] Comment on above: Result Comment: Left Ureter Performed By: #### C ALCULI #### [facility] [address] [address] [address] Nikky Man Triamterene [facility] Comment on above: Performed By: #### C ALCULI #### [facility] [address] [address] [address] Nikky Man Uric Acid Normal [facility] Comment on above: Performed By: #### C ALCULI #### [facility] [address] [address] [address] Nikky Man Uric Acid Dihydrate Normal [facility] Comment on above: Performed By: #### C ALCULI #### [facility] [address] [address] [address] Nikky Man Weight 4 mg [facility] Comment on above: Performed By: #### C ALCULI #### [facility] [address] [address] [address] Nikky Man Xanthine Normal [facility] Comment on above: Performed By: #### C ALCULI #### [facility] [address] [address] [address] Nikky Man XR KUB 1 VIEWon 06-08-2022 XR KUB 1 VIEW EXAMINATION: XR KUB 1 VIEW HISTORY: Urolithiasis COMPARISON: No relevant comparison available. FINDINGS: KIDNEY/URETER - RIGHT: No visible renal or ureteral calcifications. KIDNEY/URETER - LEFT: Left double-J ureteral stent in normal position. Stable extensive nephrolithiasis and proximal ureterolithiasis PELVIS: No visible ureteral calcifications. Any visible calcifications favor phleboliths. BOWEL: No abnormal dilation or deviation. BONES: No acute abnormality. OTHER: Negative. No abnormal gaseous collections. IMPRESSION: Stable left ureteral stent and nephroureterolithiasis Electronically authenticated by: JI CULLEN Date: 2022-06-08 16:30 Normal [facility] XR KUB 1 VIEWon 06-01-2022 XR KUB 1 VIEW EXAMINATION: XR KUB 1 VIEW HISTORY: Kidney stone COMPARISON: 05/25/2022 FINDINGS: KIDNEY/URETER - RIGHT: No visible renal or ureteral calcifications. KIDNEY/URETER - LEFT: Interval change in extensive left nephrolithiasis consistent with interval lithotripsy. Interval increase in proximal ureterolithiasis. Left double-J ureteral stent PELVIS: No visible ureteral calcifications. Any visible calcifications favor phleboliths. BOWEL: No abnormal dilation or deviation. Moderate stool in the right colon BONES: No acute abnormality. OTHER: Negative. No abnormal gaseous collections. IMPRESSION: Interval lithotripsy with extensive left nephrolithiasis, ureterolithiasis and ureteral stent Electronically authenticated by: JI CULLEN Date: 2022-06-01 21:58 Normal [facility] PROTIMEon 05-25-2022 INR Coag (PPP) [Relative time] 1.01 {INR} Normal [facility] Comment on above: Performed By: #### P TT, PT #### [facility] [address] [place] [address] Dr. Nikky Man INR GUIDELINES SEE BELOW Normal [facility] Comment on above: Result Comment: ELFEGO RED INR: 2.0 - 3.0 CONDITIONS NOT LISTED BELOW 2.5 - 3.5 FOR PROSTHETIC HEART VALVE REPLACEMENT 2.5 - 3.5 RECURRENT THROMBOSIS Performed By: #### P TT, PT #### [facility] [address] [place], [place] [address] Dr. Nikky Man PT Coag (PPP) [Time] 10.9 s Normal 9.0-11.6 [facility] Comment on above: Performed By: #### P TT, PT #### [facility] [address] [place], [place] [address] Dr. Nikky Man PTTon 05-25-2022 aPTT Coag (Bld) [Time] 27.9 s Normal 22.3-36.2 [facility] Comment on above: Performed By: #### P TT, PT #### [facility] [address] [place], [place] [address] Dr. Nikky Man XR KUB 1 VIEWon 05-25-2022 XR KUB 1 VIEW EXAMINATION: XR KUB 1 VIEW HISTORY: Kidney stone COMPARISON: XR KUB 05/16/2022 FINDINGS: KIDNEY/URETER - RIGHT: No visible renal or ureteral calcifications. KIDNEY/URETER - LEFT: Several large stones within kidney. 7 x 5 mm stone projecting over proximal ureter, likely at the ureteropelvic junction. Left ureteral stent appears to be in good position. PELVIS: No visible ureteral calcifications. Any visible calcifications favor phleboliths. BOWEL: No abnormal dilation or deviation. BONES: No acute abnormality. OTHER: Negative. No abnormal gaseous collections. IMPRESSION: 1. Left ureteral stent appearing to be in good position. 2. Marked left nephrolithiasis with persistent stone in proximal ureter. Electronically authenticated by: GEMA OTTO Date: 2022-05-25 17:12 Normal [facility] XR KUB 1 VIEWon 05-17-2022 XR KUB 1 VIEW EXAMINATION: XR KUB 1 VIEW HISTORY: Kidney stone COMPARISON: 05/01/2022 FINDINGS: KIDNEY/URETER - RIGHT: No visible renal or ureteral calcifications. KIDNEY/URETER - LEFT: Interval placement of a double-J ureteral stent in normal position. Multiple left nephrolithiasis and proximal ureterolithiasis PELVIS: No visible ureteral calcifications. Any visible calcifications favor phleboliths. BOWEL: No abnormal dilation or deviation. BONES: No acute abnormality. OTHER: Negative. No abnormal gaseous collections. IMPRESSION: Interval placement of a left ureteral stent with stable urinary tract stones Electronically authenticated by: JI CULLEN Date: 2022-05-17 07:32 Normal [facility] CALCULI, URINARYon 2 2,8 Dihydroxyadenine Normal [facility] Comment on above: Performed By: #### C BC #### [facility] [address] [address] [address] Nikky Man Ammonium Acid Urate Normal [facility] Comment on above: Performed By: #### C BC #### [facility] [address] [address] [address] Nikky Man Bilirubin Ql (U) Normal [facility] Comment on above: Performed By: #### C BC #### [facility] [address] [address] [address] Nikky Man Ca Oxalate Dihydrate 10 % [facility] Comment on above: Performed By: #### C BC #### [facility] [address] [address] [address] Nikky Man CaHPO4 (Brushite) [place] [facility] Comment on above: Performed By: #### C BC #### [facility] [address] [address] [address] Nikky Man Calcium Bilirubinate [facility] Comment on above: Performed By: #### C BC #### [facility] [address] [address] [address] Nikky Man Calcium Carbonate [facility] Comment on above: Performed By: #### C BC #### [facility] [address] [address] [address] Nikky Man Calcium Oxalate Monohydrate 90 % [facility] Comment on above: Performed By: #### C BC #### [facility] [address] [address] [address] Nikky Man Calcium Palmitate [place] [facility] Comment on above: Performed By: #### C BC #### [facility] [address] [address] [address] Nikky Man Calcium Phosphate Normal [facility] Comment on above: Performed By: #### C BC #### [facility] [address] [address] [address] Nikky Man Calcium Stearate Normal [facility] Comment on above: Performed By: #### C BC #### [facility] [address] [address] [address] Nikky Man Carbonate Apatite Normal [facility] Comment on above: Performed By: #### C BC #### [facility] [address] [address] [address] Nikky Man Cellular Material Normal [facility] Comment on above: Performed By: #### C BC #### [facility] [address] [address] [address] Nikky Man Cholesterol [facility] Comment on above: Performed By: #### C BC #### [facility] [address] [address] [address] Nikky Man Color (U) Trammell [facility] Comment on above: Performed By: #### C BC #### [facility] [address] [address] [address] Nikky Man Comment [facility] Comment on above: Performed By: #### C BC #### [facility] [address] [address] [address] Nikky Man Comment Comment [facility] Comment on above: Result Comment: Calc ulus received in liquid. Wet calculi must be dried before analysis, which delays reporting of results. Leaving calculi in liquid (such as water, saline, blood, urine) may lead to changes in composition. Performed By: #### C BC #### [facility] [address] [address] [address] Nikky Man Comment: Comment [facility] Comment on above: Result Comment: Kaycee valenzuela questions regarding Calculi Analysis contact [facility] at: [phone]. Performed By: #### C BC #### [facility] [address] [address] [address] Nikky Man Composition Comment [facility] Comment on above: Result Comment: Perc entage (Represents the % composition) Performed By: #### C BC #### [facility] [address] [address] [address] Nikky Man Cystine [facility] Comment on above: Performed By: #### C BC #### [facility] [address] [address] [address] Nikky Man Disclaimer: Comment Normal [facility] Comment on above: Result Comment: This test was developed and its performance characteristics determined by [facility]. It has not been cleared or approved by the Food and Drug Administration. Performed By: #### C BC #### [facility] [address] [place] [address] Dr. Nikky Man Dried Blood [facility] Comment on above: Performed By: #### C BC #### [facility] [address] [place] [address] Dr. Nikky Man Drug or Metabolite [facility] Comment on above: Performed By: #### C BC #### [facility] [address] [place] [address] Dr. Nikky Man Hydroxyapatite [facility] Comment on above: Performed By: #### C BC #### [facility] [address] [place] [address] Dr. Nikky Man Mg NH4 PO4 (Struvite) [facility] Comment on above: Performed By: #### C BC #### [facility] [address] [place] [address] Dr. Nikky Man MgHPO4 (Newberyite) [facility] Comment on above: Performed By: #### C BC #### [facility] [address] [place] [address] Dr. Nikky Man Other component(s) [facility] Comment on above: Performed By: #### C BC #### [facility] [address] [place] [address] Dr. Nikky Man PDF . Normal [facility] Comment on above: Performed By: #### C BC #### [facility] [address] [place] [address] Dr. Nikky Man Photo Comment [facility] Comment on above: Result Comment: Phot ograph will follow under a separate cover Performed By: #### C BC #### [facility] [address] [address] [address] Nikky Man Please note: Comment Normal [facility] Comment on above: Result Comment: Calc aishwarya report will follow via computer, mail or reroller hand delivery. Performed By: #### C BC #### [facility] [address] [address] [address] Nikky Man Size 4x4 [facility] Comment on above: Result Comment: Mult iple pieces received. Dimensions of the largest piece reported. Performed By: #### C BC #### [facility] [address] [address] [address] Nikky Man Sodium Acid Urate [facility] Comment on above: Performed By: #### C BC #### [facility] [address] [address] [address] Nikky Man Source Comment [facility] Comment on above: Result Comment: Left Ureter Performed By: #### C BC #### [facility] [address] [address] [address] Nikky Man Triamterene [facility] Comment on above: Performed By: #### C BC #### [facility] [address] [address] [address] Nikky Man Uric Acid [facility] Comment on above: Performed By: #### C BC #### [facility] [address] [address] [address] Nikky Man Uric Acid Dihydrate [facility] Comment on above: Performed By: #### C BC #### [facility] [address] [address] [address] Nikky Man Weight 156 mg [facility] Comment on above: Performed By: #### C BC #### [facility] [address] [address] [address] Nikky Man Xanthine [facility] Comment on above: Performed By: #### C BC #### [facility] [address] [address] [address] Nikky Man POINT OF CARE GLUCOSEon 04-19 Glucose [Mass/Vol] 131 mg/dL Critically high 74-106 [facility] Comment on above: Performed By: #### C BC #### [facility] [address] [place] [address] Dr. Nikky Man CBC AUTO DIFFon 05-04-2022 BASO # 0.0 103/ul Normal 0.0-0.1 [facility] Comment on above: Performed By: #### C BC #### [facility] [address] [place] [address] Dr. Nikky Man Basophils/100 WBC (Bld) 0.2 % Normal 0.2-2.0 [facility] Comment on above: Performed By: #### C BC #### [facility] [address] [place] [address] Dr. Nikky Man EO # 0.4 103/ul Normal 0.0-0.7 [facility] Comment on above: Performed By: #### C BC #### [facility] [address] [place] [address] Dr. Nikky Man Eosinophils/100 WBC (Bld) 4.8 % Normal 0.9-7.0 [facility] Comment on above: Performed By: #### C BC #### [facility] [address] [place] [address] Dr. Nikky Man Erythrocyte distribution width (RBC) [Ratio] 13.4 % Normal 11.0-15.0 [facility] Comment on above: Performed By: #### C BC #### [facility] [address] [place] [address] Dr. Nikky Man Hematocrit (Bld) [Volume fraction] 36.9 % Critically low 42.0-54.0 [facility] Comment on above: Performed By: #### C BC #### [facility] [address] [place] [address] Dr. Nikky Man Hemoglobin (Bld) [Mass/Vol] 12.2 g/dL Critically low 14.0-18.0 [facility] Comment on above: Performed By: #### C BC #### [facility] [address] [address] [address] Nikky Man IG # 0.05 10e3/ul Critically high 0.00-0.03 [facility] Comment on above: Performed By: #### C BC #### [facility] [address] [address] [address] Nikky Man IG % 0.6 % Critically high 0.0-0.5 [facility] Comment on above: Performed By: #### C BC #### [facility] [address] [address] [address] Nikky Man LYMPH # 1.8 103/ul Normal 1.2-3.8 [facility] Comment on above: Performed By: #### C BC #### [facility] [address] [place] [address] Dr. Nikky Man Lymphocytes/100 WBC (Bld) 20.3 % Critically low 20.5-60.0 [facility] Comment on above: Performed By: #### C BC #### [facility] [address] [place] [address] Dr. Nikky Man MANUAL DIFF REQ NO Normal [facility] Comment on above: Performed By: #### C BC #### [facility] [address] [place] [address] Dr. Nikky Man MCH (RBC) [Entitic mass] 26.6 pg Normal 25.9-34.0 [facility] Comment on above: Performed By: #### C BC #### [facility] [address] [place] [address] Dr. Nikky Man MCHC (RBC) [Mass/Vol] 33.1 g/dL Normal 29.9-35.2 [facility] Comment on above: Performed By: #### C BC #### [facility] [address] [place] [address] Dr. Nikky Man MCV (RBC) [Entitic vol] 80.6 fL Normal 80.0-94.0 [facility] Comment on above: Performed By: #### C BC #### [facility] [address] [place] [address] Dr. Nikky Man MONO # 0.5 103/ul Normal 0.3-0.8 [facility] Comment on above: Performed By: #### C BC #### [facility] [address] [place] [address] Dr. Nikky Man Monocytes/100 WBC (Bld) 5.2 % Normal 1.7-12.0 [facility] Comment on above: Performed By: #### C BC #### [facility] [address] [place] [address] Dr. Nikky Man NEUT # 6.1 103/ul Normal 1.4-6.5 [facility] Comment on above: Performed By: #### C BC #### [facility] [address] [place] [address] Dr. Nikky Man Neutrophils/100 WBC (Bld) 68.9 % Normal 43.0-75.0 [facility] Comment on above: Performed By: #### C BC #### [facility] [address] [place] [address] Dr. Nikky Man Platelet mean volume (Bld) [Entitic vol] 8.9 fL Critically low 9.5-13.5 [facility] Comment on above: Performed By: #### C BC #### [facility] [address] [place] [address] Dr. Nikky Man PLT 201 103/ul Normal 150-450 [facility] Comment on above: Performed By: #### C BC #### [facility] [address] [place] [address] Dr. Nikky Man RBC 4.58 106/ul Critically low 4.70-6.10 [facility] Comment on above: Performed By: #### C BC #### [facility] [address] [place], [place] [id number] Dr. Nikky Man WBC 8.8 103/ul Normal 4.0-11.0 [facility] Comment on above: Performed By: #### C BC #### [facility] [address] [place] [address] Dr. Nikky Man PROF CHEM 8 (BAS METB)on Anion gap [Moles/Vol] 17.6 mmol/L Normal [facility] Comment on above: Performed By: #### C BC #### [facility] [address] [place] [address] Dr. Nikky Man Calcium [Mass/Vol] 9.0 mg/dL Normal 8.5-10.1 [facility] Comment on above: Performed By: #### C BC #### [facility] [address] [address] [address] Nikky Man Chloride [Moles/Vol] 106 mmol/L Normal 98-107 [facility] Comment on above: Performed By: #### C BC #### [facility] [address] [place] [address] Dr. Nikky Man CO2 [Moles/Vol] 22.5 mmol/L Normal 21.0-32.0 [facility] Comment on above: Performed By: #### C BC #### [facility] [address] [place] [address] Dr. Nikky Man Creatinine [Mass/Vol] 2.34 mg/dL Critically high 0.70-1.30 [facility] Comment on above: Performed By: #### C BC #### [facility] [address] [place] [address] Dr. Nikky Man EGFR-AF NIGERIEN 35 mL/min/1.73m2 Critically low >=60 [facility] Comment on above: Performed By: #### C BC #### [facility] [address] [place] [address] Dr. Nikky Man EGFR-NON AF NIGERIEN 29 mL/min/1.73m2 Critically low >=60 [facility] Comment on above: Performed By: #### C BC #### [facility] [address] [place] [address] Dr. Nikky Man Glucose [Mass/Vol] 123 mg/dL Critically high 74-106 [facility] Comment on above: Performed By: #### C BC #### [facility] [address] [place] [address] Dr. Nikky Man Potassium [Moles/Vol] 5.1 mmol/L Normal 3.5-5.1 [facility] Comment on above: Performed By: #### C BC #### [facility] [address] [address] [address] Nikky Man Sodium [Moles/Vol] 141 mmol/L Normal 136-145 [facility] Comment on above: Performed By: #### C BC #### [facility] [address] [address] [address] Nikky Man Urea nitrogen [Mass/Vol] 27.0 mg/dL Critically high 7.0-18.0 [facility] Comment on above: Performed By: #### C BC #### [facility] [address] [place] [address] Dr. Nikky Man Urea nitrogen/Creatini ne [Mass ratio] 11.5 mg/mg Normal [facility] Comment on above: Performed By: #### C BC #### [facility] [address] [place] [address] Dr. Nikky Man XR KUB 1 VIEWon 05-01-2022 XR KUB 1 VIEW EXAMINATION: XR KUB 1 VIEW HISTORY: Kidney stone COMPARISON: CT abdomen pelvis 03/21/2022 FINDINGS: KIDNEY/URETER - RIGHT: No visible renal or ureteral calcifications. KIDNEY/URETER - LEFT: Numerous large and small calcifications within kidney, renal pelvis, and proximal ureter. PELVIS: Several calcifications within the urinary bladder. BOWEL: No abnormal dilation or deviation. BONES: No acute abnormality. OTHER: Negative. No abnormal gaseous collections. IMPRESSION: 1. Marked left nephrolithiasis and suspected stones within the proximal ureter. 2. Bladder calcifications. Electronically authenticated by: GEMA OTTO Date: 2022-05-01 17:19 Normal [facility] URINE PROFILEon 2 Bilirubin Ql (U) Negative Normal NEGATIVE [facility] Comment on above: Performed By: #### C BC #### [facility] [address] [place], [place] [id number] Dr. Nikky Man Clarity (U) CLEAR Normal CLEAR [facility] Comment on above: Performed By: #### C BC #### [facility] [address] [place] [address] Dr. Nikky Man Color (U) LT. YELLOW Normal YELLOW [facility] Comment on above: Performed By: #### C BC #### [facility] [address] [place] [address] Dr. Nikky WEN A micrscopic examina tion will be performed if indicated. Normal [facility] Comment on above: Performed By: #### C BC #### [facility] [address] [place] [address] Dr. Nikky Man Glucose Ql (U) Negative Normal NEGATIVE [facility] Comment on above: Performed By: #### C BC #### [facility] [address] [place] [address] Dr. Nikky Man Hemoglobin Ql (U) LARGE Abnormal NEGATIVE [facility] Comment on above: Performed By: #### C BC #### [facility] [address] [place] [address] Dr. Nikky Man Ketones Ql (U) Negative Normal NEGATIVE [facility] Comment on above: Performed By: #### C BC #### [facility] [address] [place] [address] Dr. Nikky Man LEUKOCYTES Negative Normal NEGATIVE [facility] Comment on above: Performed By: #### C BC #### [facility] [address] [place] [address] Dr. Nikky Man Nitrite Ql (U) Negative Normal NEGATIVE [facility] Comment on above: Performed By: #### C BC #### [facility] [address] [place] [address] Dr. Nikky Man pH (U) 6.0 [pH] Normal 5-9 [facility] Comment on above: Performed By: #### C BC #### [facility] [address] [place] [address] Dr. Nikky Man SPEC GRAVITY 1.015 Normal 1.005-<=1.025 [facility] Comment on above: Performed By: #### C BC #### [facility] [address] [place] [address] Dr. Nikky Man UA PROTEIN TRACE Normal NEGATIVE/ TRACE [facility] Comment on above: Performed By: #### C BC #### [facility] [address] [place] [address] Dr. Nikky Man UR MICRO IND INDICATED Normal [facility] Comment on above: Performed By: #### C BC #### [facility] [address] [place] [address] Dr. Nikky Man Urobilinogen Qn (U) 0.2 {Chandni'U}/dL Normal 0.2 - 1.0 [facility] Comment on above: Performed By: #### C BC #### [facility] [address] [place] [address] Dr. Nikky Man URINE MICROSCOPIC ONLYon BACTERIA NONE SEEN Normal NONE SEEN [facility] Comment on above: Performed By: #### C BC #### [facility] [address] [place] [address] Dr. Nikky Man Bacteria identified Cx Nom (U) NOT INDICATED Normal [facility] Comment on above: Performed By: #### C BC #### [facility] [address] [place] [address] Dr. Nikky Man CAST NONE SEEN Normal NONE SEEN [facility] Comment on above: Performed By: #### C BC #### [facility] [address] [place] [address] Dr. Nikky Man Crystals LM Nom (Urine sed) NONE SEEN Normal NONE SEEN [facility] Comment on above: Performed By: #### C BC #### [facility] [address] [place] [address] Dr. Nikky Man Epithelial cells LM Ql (Urine sed) RARE Normal NONE SEEN /RARE [facility] Comment on above: Performed By: #### C BC #### [facility] [address] [place] [address] Dr. Nikky Man MUCOUS NONE SEEN Normal NONE SEEN [facility] Comment on above: Performed By: #### C BC #### [facility] [address] [place] [address] Dr. Nikky Man RBC 20-50 Abnormal 0-2 [facility] Comment on above: Performed By: #### C BC #### [facility] [address] [place], [place] [address] Dr. Nikky Mna WBC 0-2 Abnormal NONE SEEN [facility] Comment on above: Performed By: #### C BC #### [facility] [address] [place], [place] [address] Dr. Nikky CORRALES Miscellaneous test 1on 06-05-2019 Miscellaneous Test 1 SEE NOTE Normal [facility] Comment on above: Result Comment: Test name Result Flag Units RefIntvl ---- PCA3 by TMA - Score 5 0-24 PCA3 by TMA - Result Negative A negative result is associated with decreased likelihood of a positive biopsy for prostate cancer. INTERPRETIVE DATA: PCA3 by TMA [employer] PCA3 assay is an in vitro nucleic acid amplification test utilizing target capture, organic chemistry professor-mediated amplification, and a hybridization-protection assay for amplicon detection. PCA3 Score is calculated as the ratio of PCA3 RNA copies to PSA RNA copies, multiplied by 1000. Sensitivity and Specificity: 77.5 percent and 57.1 percent respectively (relative to prostate biopsy outcome), based on a PCA3 score cutoff value of 25. Limitations: This test should not be used for men with a result of Atypical Small Acinar Proliferation (SARA) on their most recent biopsy. Performance has not been established in men who undergo a repeat biopsy less than 3 months or more than 7 years after their most recent negative biopsy. The effect of medications known to influence serum PSA levels or therapeutic and/or diagnostic procedures such as prostatectomy, radiation, or prostate biopsy that may impact the viability of prostatic tissue and PCA3 Score have not been evaluated. Values obtained with different assay methods or kits cannot be used interchangeably. Results should be interpreted in correlation with clinical history and other relevant data. Performed by [facility], [address] [place] [id number] [email or web address], Jae Marquez MD - Lab. Director Performed By: #### [id number] #### [facility] [address] [place] [address] [place] Miscellaneous test 1on 05-29-2019 [employer] Prompt [id number] Normal [facility] Comment on above: Result Comment: Ca ected result; previously reported as pca3 [id number] on 05/28/2019 at 19:45 by V/AUT Performed By: #### [id number] #### [facility] [address] [place] [address] Urinalysis, reflex to micros copicon 11-28-2018 Bilirubin Ql (U) Negative Normal Negative [facility] Clarity (U) Clear Normal Clear [facility] Color (U) Yellow Normal Straw[facility] Glucose Ql (U) >=1000 Abnormal Negative [facility] Hemoglobin Ql (U) Negative Normal Negative [facility] Ketones Ql (U) Negative Normal Negative [facility] Leukocyte esterase Test strip Ql (U) Negative Normal Negative [facility] Nitrite Ql (U) Negative Normal Negative [facility] pH (U) 5.5 [pH] Normal 5.0-9.0 [facility] Protein Ql (U) Negative Normal Negative [facility] Specific gravity (U) [Rel density] 1.031 Normal 1.005-1.03 [facility] Urobilinogen Qn (U) 0.2 {Chandni'U}/dL Normal < 2.0 [facility] Vital Signs Date Time Vital Sign Value Performing Clinician Facility 01-10-2024 08:43-0500 Body height 177.8 cm [facility] 01-10-2024 08:43-0500 Body mass index (BMI) [Ratio] 34.2 kg/m2 [facility] 01-10-2024 08:43-0500 Body weight 108.12 kg [facility] 01-10-2024 08:43-0500 Diastolic blood pressure 76 mm[Hg] [facility] 01-10-2024 08:43-0500 Heart rate 75 /min [facility] 01-10-2024 08:43-0500 Respiratory rate 12 /min [facility] 01-10-2024 08:43-0500 Systolic blood pressure 173 mm[Hg] [facility] 12-17-2023 11:31-0500 Blood Pressure Location Pelon COLES [facility] 12-17-2023 11:31-0500 Diastolic blood pressure 100 mm[Hg] [facility] 12-17-2023 11:31-0500 Heart rate 70 /min [facility] 12-17-2023 11:31-0500 Respiratory rate 16 /min [facility] 12-17-2023 11:31-0500 Systolic blood pressure 151 mm[Hg] [facility] 10-29-2023 14:25-0500 Blood Pressure Location [facility]on COL[facility] 10-29-2023 14:25-0500 Diastolic blood pressure 88 mm[Hg] [facility] 10-29-2023 14:25-0500 Heart rate 87 /min [facility] 10-29-2023 14:25-0500 Respiratory rate 16 /min [facility] 10-29-2023 14:25-0500 Systolic blood pressure 138 mm[Hg] [facility] 10-23-2023 11:30-0500 Body height 177.8 cm Sp Ball Other [facility] 10-23-2023 11:30-0500 Body mass index (BMI) [Ratio] 32.77 kg/m2 Sp Ball Other [facility] [employer] Other 10-23-2023 11:30-0500 Body weight 103.6 kg Sp Ball Other [facility] 10-23-2023 11:30-0500 Diastolic blood pressure 89 mm[Hg] Sp Ball Other [facility] 10-23-2023 11:30-0500 Systolic blood pressure 162 mm[Hg] Sp Ball Other [facility] 10-05-2023 14:15-0500 Blood Pressure Location [facility] [employer] [facility] 10-05-2023 14:15-0500 Diastolic blood pressure 82 mm[Hg] [facility] 10-05-2023 14:15-0500 Heart rate 80 /min Duran NILL [facility] 10-05-2023 14:15-0500 Respiratory rate 16 /min Duran NILL [facility] 10-05-2023 14:15-0500 Systolic blood pressure 144 mm[Hg] [facility]an N[facility] 04-24-2023 11:00-0400 Body height 177.8 cm Sp Ball Other [facility] [employer] Other 04-24-2023 11:00-0400 Body mass index (BMI) [Ratio] 34.38 kg/m2 Sp Ball Other [facility] [employer] Other 04-24-2023 11:00-0400 Body weight 108.68 kg Sp Ball Other [employer] Other 04-24-2023 11:00-0400 Diastolic blood pressure 80 mm[Hg] Sp Ball Other [facility] Other 04-24-2023 11:00-0400 Respiratory rate 12 /min Sp Ball Other [facility] Other 04-24-2023 11:00-0400 Systolic blood pressure 138 mm[Hg] Sp Ball Other [facility] Other 02-14-2023 15:15-0400 Body height 177.8 cm [employer] Other [facility] Other 02-14-2023 15:15-0400 Body mass index (BMI) [Ratio] 35.15 kg/m2 [employer] Other [facility] Other 02-14-2023 15:15-0400 Body weight 111.13 kg [employer] Other [facility] Other 01-22-2023 11:00-0500 Body height 177.8 cm Sp Ball Other [facility] Other 01-22-2023 11:00-0500 Body mass index (BMI) [Ratio] 35.44 kg/m2 Sp Ball Other [facility] Other 01-22-2023 11:00-0500 Body weight 112.04 kg Sp Ball Other [facility] Other 01-22-2023 11:00-0500 Diastolic blood pressure 84 mm[Hg] Sp Ball Other [facility] Other 01-22-2023 11:00-0500 Respiratory rate 12 /min Sp Ball Other [employer] [facility] [employer] Other 01-22-2023 11:00-0500 Systolic blood pressure 136 mm[Hg] Sp Chowdary Other [facility] Other 12-18-2022 15:12-0500 Blood Pressure Location [facility] 12-18-2022 15:12-0500 Diastolic blood pressure 72 mm[Hg] [facility] 12-18-2022 15:12-0500 Heart rate 68 /min [facility] 12-18-2022 15:12-0500 Respiratory rate 16 /min Pelon COL[facility] 12-18-2022 15:12-0500 Systolic blood pressure 127 mm[Hg] [facility] 12-14-2022 15:30-0500 Body height 177.8 cm Alfonzo [place] [employer] Other [employer] [facility] [employer] Other 12-14-2022 15:30-0500 Body mass index (BMI) [Ratio] 34.29 kg/m2 Alfonzo Toussaintle II Other [employer] [facility] [employer] Other 12-14-2022 15:30-0500 Body weight 108.41 kg Alfonzo Becerraisle II Other [facility] Other 08-28-2022 09:20-0400 Diastolic blood pressure 84 mm[Hg] Pacc 2 Work Phone: [facility] 08-28-2022 09:20-0400 Heart rate 72 /min Pacc 2 Work Phone: [facility] 08-28-2022 09:20-0400 Systolic blood pressure 152 mm[Hg] Pacc 2 Work Phone: [facility] 08-28-2022 09:16-0400 Body height 175.3 cm P[employer] 2 Work Phone: [facility] 08-28-2022 09:16-0400 Body temperature 98.49 [degF] Pacc 2 Work Phone: [facility] 08-28-2022 09:16-0400 Body weight 105.23 kg Pacc 2 Work Phone: [facility] 08-28-2022 09:16-0400 Respiratory rate 16 /min Pacc 2 Work Phone: [facility] 08-28-2022 09:16-0400 SaO2% (BldA) [Mass fraction] 98 % Pacc 2 Work Phone: [facility] 08-11-2022 10:49-0400 Body weight 99.79 kg Noelle Vega MD Work Phone: [facility] 08-11-2022 10:49-0400 Diastolic blood pressure 89 mm[Hg] Noelle Vega MD Work Phone: [facility] 08-11-2022 10:49-0400 Heart rate 66 /min Noelle Vega MD Work Phone: [facility] 08-11-2022 10:49-0400 Systolic blood pressure 176 mm[Hg] Noelle Vega MD Work Phone: [facility] 03-13-2022 15:03-0400 Blood Pressure Location [facility] 03-13-2022 15:03-0400 Diastolic blood pressure 87 mm[Hg] [facility] 03-13-2022 15:03-0400 Heart rate 78 /min [facility] 03-13-2022 15:03-0400 Systolic blood pressure 164 mm[Hg] Pelonneela COLES [facility] Encounters Encounter Date Encounter Type Care Provider Facility Start: 12-19-2024 ambulatory Pelon COLES Facili ty:[facility] Start: 01-10-2024 End: 01-10-2024 ambulatory [facility] Work Phone: Start: 01-10-2024 End: 01-10-2024 Patient encounter procedure [facility] Work Phone: Start: 12-19-2023 ambulatory Pelon COLES Facili ty:[facility] [place] Start: 12-17-2023 End: 12-18-2023 ambulatory Pelonneela COLES Facility:[facility] Start: 12-17-2023 End: 12-17-2023 Patient encounter procedure [facility] Start: 12-14-2023 ambulatory Pelon COLES Facili ty:[facility] Start: 11-28-2023 End: 11-29-2023 ambulatory Pelonneela COLES Facility[place] Start: 11-28-2023 End: 11-28-2023 Lab Drop off Pelon COLES [facility] Start: 11-27-2023 End: 11-28-2023 ambulatory Pelon COLES Facility:[facility] [place] Start: 11-27-2023 End: 11-27-2023 Patient encounter procedure Pelon COLES [facility] Meghann Start: 11-23-2023 End: 11-23-2023 ambulatory Sp Chowdary Other [facility] Other Start: 11-23-2023 Telephone encounter Sp JOHNSON [facility] Start: 11-14-2023 End: 11-15-2023 ambulatory Duran R NILL Facility: [facility] Start: 11-14-2023 End: 11-14-2023 Patient encounter procedure Duran R NILL General Surgery Nill/Said [facility] Start: 11-05-2023 ambulatory Pelon COLES Facility : [facility] Start: 11-01-2023 End: 11-01-2023 ambulatory Sp Chowdary Other [facility] Other Start: 11-01-2023 Telephone encounter Sp JOHNSON [facility] Start: 10-31-2023 End: 11-01-2023 ambulatory Duran R DONOVANL Facility:CD:[id number] Start: 10-29-2023 End: 10-30-2023 ambulatory Pelon COLES Facility: [facility] Start: 10-29-2023 End: 10-29-2023 Patient encounter procedure Pelon COLES [facility] Levan Start: 10-23-2023 End: 10-23-2023 ambulatory Sp Chowdary Other [facility] Other Start: 10-23-2023 Office outpatient vi sit 25 minutes Sp Chowdary [facility] Start: 10-23-2023 End: 10-23-2023 Patient encounter procedure [facility] Work Phone: Start: 10-05-2023 End: 10-06-2023 ambulatory Duran R NILL Facility: [facility] Start: 10-05-2023 End: 10-05-2023 Patient encounter procedure Duran R NILL General Surgery Nill/Said [facility] Start: 09-11-2023 End: 09-11-2023 ambulatory Pelon Coles Facility:[facility] Start: 09-11-2023 End: 09-11-2023 ambulatory DO Sp Chowdary Work Phone: [facility] Work Phone: Start: 09-11-2023 End: 09-11-2023 Patient encounter procedure DO Sp Chowdary Work Phone: [facility] [place] Work Phone: Start: 09-02-2023 End: 09-02-2023 ambulatory Sp Chowdary Other [facility] Other Start: 09-02-2023 Telephone encounter Sp Chowdary [facility] Start: 08-08-2023 End: 08-08-2023 ambulatory Sp Chowdary Other [facility] Other Start: 08-08-2023 Nursing evaluation o f patient and report Sp Chowdary [facility] Start: 07-20-2023 End: 07-20-2023 ambulatory Sp Chowdary Other [facility] Other Start: 07-20-2023 Telephone encounter Sp Chowdary ALEX [facility] Start: 06-18-2023 ambulatory Pelon COLES Facili ty:[facility] Start: 06-12-2023 End: 06-13-2023 ambulatory Pelon COLES Facility:[facility] Start: 05-15-2023 End: 05-15-2023 ambulatory Sp Chowdary Other [facility] Other Start: 05-15-2023 Telephone encounter Sp JOHNSON [facility] Start: 04-26-2023 ambulatory RADHA Esqueda Facili ty:[facility] Start: 04-24-2023 End: 04-24-2023 ambulatory Sp Chowdary Other [facility] Other Start: 04-24-2023 Office outpatient vi sit 25 minutes Sp GARCIA [facility] Start: 04-10-2023 ambulatory NARENDRANATH LAKSHMIPATHY . Facility:[facility] Start: 03-23-2023 End: 03-24-2023 ambulatory RADHA RIVERA . Facility:[facility] Start: 03-08-2023 End: 03-08-2023 ambulatory Sp Chowdary Other [facility] Other Start: 03-08-2023 Telephone encounter Sp Marino [employer] Start: 03-06-2023 End: 03-06-2023 ambulatory NARENDRANATH LAKSHMIPATHY . Facility:[facility] Start: 02-26-2023 Encounter for genera l adult medical examination without abnormal findings NARENDRANATH LAKSHMIPATHY . [facility] Start: 02-22-2023 End: 02-23-[address] SP CHOWDARY Facility:[facility] Start: 02-22-2023 End: 02-23-2023 ambulatory NARENDRANATH LAKSHMIPATHY . Facility:[facility] Start: 02-22-2023 End: 02-23-2023 ambulatory NARENDRANATH LAKSHMIPATHY . Facility:[facility] Start: 02-22-2023 End: 02-23-2023 Encounter for general adult medical examination without abnormal findings NARENDRANATH LAKSHMIPATHY . Facility:[facility] Start: 02-14-2023 End: 02-14-2023 ambulatory Sp Chowdary [facility] Other Start: 02-14-2023 Office outpatient vi sit 25 minutes Alfonzo Ashford II [facility] Start: 02-05-2023 End: 02-05-2023 ambulatory Sp Chowdary Other [facility] Other Start: 02-05-2023 Telephone encounter Sp [facility] Start: 01-22-2023 End: 01-22-2023 ambulatory Sp Chowdary Other [facility] Other Start: 01-22-2023 Encounter for genera l adult medical examination without abnormal findings Sp Ball [facility] Start: 01-22-2023 Periodic preventive med est patient 40-64yrs Sp Chowdary [facility] Start: 12-18-2022 End: 12-19-2022 ambulatory Pelon COLES [facility] Start: 12-18-2022 End: 12-18-2022 Patient encounter procedure Pelon COLES [facility] Levan Start: 12-14-2022 End: 12-14-2022 ambulatory Sp Chowdary [facility] [employer] Other Start: 12-14-2022 FQHC visit new patient Alfonzo boo II [facility] Start: 12-12-2022 End: 12-12-2022 Patient encounter procedure Duran CRANDALL General Surgery Nill/Said [facility] Start: 12-05-2022 End: 12-06-[address] PELON COLES . Facility: Start: 11-28-2022 Letter encounter Sarah markel Start: 09-27-2022 End: 09-28-[address] PELON COLES . Facility: Start: 09-26-2022 End: 09-26-2022 ambulatory NOELLE VEGA Facility:[facility] Start: 09-26-2022 End: 09-26-2022 Patient encounter procedure Noelle Vega MD Work Phone: Urology Comment on above: Nephrolithiasis (Estefania jeannie Dx); Calculus of kidney with calculus of ureter Start: 09-12-2022 Orders Only Noelle Matthew Work Phone: Urology Comment on above: Hyperkalemia (Primar y Dx) Start: 09-11-2022 End: 09-12-2022 ambulatory NOELLE VEGA Facility:[facility] Start: 08-28-2022 End: 08-28-2022 ambulatory NOELLE VEGA Facility:[facility] Start: 08-28-2022 End: 08-28-2022 Admission to establishment Pacc Av 2 Work Phone: [facility] Start: 08-28-2022 End: 08-28-2022 Preprocedural examination done [facility] 2 Work Phone: Pre Anesthesia Start: 08-28-2022 Encounter for other [facility]procedural examination [facility] Start: 08-28-2022 End: 08-29-2022 ambulatory NOELLE VEGA Pre Anesthesia Comment on above: Pre-op evaluation (P rimary Dx); Hypertension, unspecified type; POTS (postural orthostatic tachycardia syndrome); Hyperlipidemia, unspecified hyperlipidemia type; Type 2 diabetes mellitus without complication, with long-term current use of insulin (HCC); Malignant neoplasm of urinary bladder, unspecified site (HCC); KUNAL (obstructive sleep apnea); BMI 34.0-34.9,adult Start: 08-28-2022 End: 08-28-2022 Subsequent hospital visit by physician [facility]) Work Phone: [facility] Radiology CT Scan Comment on above: Calculus of kidney w ith calculus of ureter [N20.2] Start: 08-24-2022 Telephone encounter Noelle banuelos MD Work Phone: Urology Comment on above: Schedule Surgery Start: 08-16-2022 Telephone encounter Noelle banuelos MD Work Phone: Urology Comment on above: Other (CD from [facility]) Start: 08-11-2022 End: 08-11-2022 ambulatory Jennifer Singleton RN Urology Start: 08-11-2022 End: 08-11-2022 Patient encounter procedure Noelle Vega MD Work Phone: Urology Comment on above: Screening for genito urinary condition (Primary Dx); Calculus of kidney with calculus of ureter; Staghorn calculus Start: 07-26-2022 End: 07-27-[address] RADHA RUELAS Facility:[facility] Start: 07-19-2022 End: 07-20-[address] PELON COLES . Facility:[facility] Start: 06-28-2022 End: 06-29-[address] PELON COLES . Facility:[facility] Start: 06-08-2022 End: 06-08-[address] SP CHOWDARY Facility:[facility] Start: 06-05-2022 Letter encounter Sarah matos Start: 06-01-2022 End: 06-02-[address] SP CHOWDARY Facility:[facility] Start: 05-25-2022 End: 05-25-[address] SP CHOWDARY Facility:[facility] Start: 05-16-2022 End: 05-17-[address] SP CHOWDARY Facility:[facility] Start: 05-08-2022 Encounter for other preprocedural examination DR PELON COLES . [facility] Start: 05-05-2022 End: 05-05-[address] PELON COLES . Facility:[facility] Start: 05-05-2022 End: 05-05-2022 Patient encounter procedure Pelon COLES [facility] Start: 05-04-2022 End: 05-05-[address] PELON COLES . Facility:[facility] Start: 05-04-2022 End: 05-05-2022 Encounter for other preprocedural examination DR PELON COLES . Facility:[facility] Start: 05-01-2022 End: 05-02-[address] SP CHOWDARY Facility:[facility] Start: 04-21-2022 End: 04-21-[address] SP CHOWDARY Facility:[facility] Start: 03-14-2022 End: 03-14-2022 Patient encounter procedure Pelon COLES [facility] Start: 03-13-2022 End: 03-13-2022 Patient encounter procedure Pelon COLES [facility] Start: 01-19-2022 Adult health examination Rohan Chowdary Other [facility] Other Start: 02-26-2017 End: 02-27-2017 ambulatory UNKNOWN PROVIDER Facility:[facility] Procedures Date Procedure Procedure Detail Performing Clinician Start: 11-27-2023 Transrectal biopsy of prostate using ultrasound guidance Pelon COLES Start: 11-27-2023 Transurethral insertion of prostatic urethral lift implant Pelon SANKET Start: 10-31-2023 Colonoscopy Duran CRANDALL Start: 10-31-2023 Esophagogastroduodenoscopy Duran CRANDALL Start: 09-11-2023 MR prostate wo/w con DO Sp Chowdary Work Phone: Start: 09-26-2022 Urnls dip stick/tablet rgnt auto w/o microscopy Noelle eVga MD Work Phone: Start: 08-28-2022 Antibody screen NOELLE VEGA Comment on above: Order Comment: Specimen Type: BLOOD SPEC IMENOrdering Facility: [facility] Address: [address] [place] [address] Performed By: #### T [id number] ####JAKE BLOOD BANKCLIA [id number] [address] OF [facility] Start: 08-28-2022 Ct abdomen & pelvis w/o contrast material Noelle Vega MD Work Phone: Start: 08-11-2022 Urnls dip stick/tablet rgnt auto w/o microscopy Noelle Vega MD Work Phone: Start: 08-30-2021 Cystoscopy Pelon COLES Start: 08-24-2020 Cystoscopy Pelonneela COLES Start: 12-16-2019 Cystoscopy Pelonneela COLES Start: 09-19-2019 Colonoscopy Duran CRANDALL Start: 10-19-2017 Colonoscopy Duran RCANDALL Start: 02-26-2017 *SPECIMEN FOR SURGICAL PATHOLOGY UNKNOWN PROVIDER Start: 02-12-2017 Pre-surgery evaluation Sp Chowdary Other Start: 02-12-2017 Preoperative cardiovascular examination Sp Chowdary Other Start: 11-19-2016 Biopsy of prostate Pelon COLES Start: 10-02-2016 Screening for malignant neoplasm of colon Sp Chowdary Other Start: 10-02-2016 Screening for malignant neoplasm of prostate Sp Chowdary Other Start: 11-19-2006 bladder tumor Pelon COLES 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 Pelon COLES ankle surgery 1 Pelonneela AYALA Comment on above: x4 (1993, 1996, 1997, 1999) Colonoscopy Pelon COLES Lithotripsy Duran CRANDALL Screening for malign ant neoplasm of prostate Sp Chowdary Other Transurethral water vapor ablation of prostate Pelon COLES Plan of Treatment Date Care Activity Detail Author Start: 02-18-2027 PROSTATE CANCER SCREENING DISCUSSION PROSTATE CANCER SCREENING DISCUSSION [facility] Start: 02-26-2023 Hemoglobin A1c/Hemoglobin.total in Blood HBA1C [facility] Start: 09-19-2022 End: 11-19-2022 Basic metabolic 2000 panel - Serum or Plasma BASIC METABOLIC PNL Lab Routine Hyperkalemia Expected: 09/19/2022 (Approximate), Expires: 11/19/2022 [facility] Work Phone: Comment on above: Expected: 09/19/2022 (Approximate), Expi res: 11/19/2022 Start: 08-28-2022 End: 10-28-2022 aPTT in Platelet poor plasma by Coagulation assay ACTIVATED PTT Lab Routine Nephrolithiasis Gross hematuria Expected: 08/28/2022, Expires: 10/28/2022 [facility] Work Phone: Comment on above: Expected: 08/28/2022, Expires: Start: 08-28-2022 End: 10-28-2022 Bacteria identified in Urine by Culture URINE CULTURE Microbiology Routine Nephrolithiasis Expected: 08/28/2022, Expires: 10/28/2022 [facility] Work Phone: Comment on above: Expected: 08/28/2022, Expires: 2 Start: 08-28-2022 End: 10-28-2022 CBC W Auto Differential panel - Blood CBC + DIFF Lab Routine Nephrolithiasis Expected: 08/28/2022, Expires: 10/28/2022 [facility] Work Phone: Comment on above: Expected: 08/28/2022, Expires: 2 Start: 08-28-2022 End: 10-28-2022 Comprehensive metabolic 2000 panel - Serum or Plasma COMP METABOLIC PANEL Lab Routine Nephrolithiasis Expected: 08/28/2022, Expires: 10/28/2022 [facility] Work Phone: Comment on above: Expected: 08/28/2022, Expires: 2 Start: 08-28-2022 End: 10-28-2022 CONFIRM BLOOD TYPE CONFIRM BLOOD TYPE Blood Bank Routine Pre-op evaluation Expected: 08/28/2022, Expires: 10/28/2022 [facility] Work Phone: Comment on above: Expected: 08/28/2022, Expires: 2 Start: 08-28-2022 End: 10-28-2022 Hemoglobin A1c in Blood [facility] Work Phone: Comment on above: Expected: 08/28/2022, Expires: 2 Start: 08-28-2022 End: 10-28-2022 PT panel - Platelet poor plasma by Coagulation assay PROTHROMBIN TIME/PT Lab Routine Nephrolithiasis Gross hematuria Expected: 08/28/2022, Expires: 10/28/2022 [facility] Work Phone: Comment on above: Expected: 08/28/2022, Expires: 2 Start: 08-28-2022 End: 10-28-2022 TYPE AND SCREEN,30 DAY TYPE AND SCREEN,30 DAY Blood Bank Routine Nephrolithiasis Expected: 08/28/2022, Expires: 10/28/2022 [facility] Work Phone: Comment on above: Expected: 08/28/2022, Expires: 2 Start: 08-19-2022 Influenza vaccination Influenza Vaccine (#1) [facility] Start: 08-11-2022 End: 10-11-2022 25-hydroxyvitamin D3 [Mass/volume] in Serum or Plasma VITAMIN D 25 HYDROXY Lab Routine Nephrolithiasis Secondary hyperparathyroidism of renal origin (HCC) Expected: 08/11/2022, Expires: 10/11/2022 [facility] Work Phone: Comment on above: Expected: 08/11/2022, Expires: 2 Start: 08-11-2022 End: 10-11-2022 Parathyrin.intact [Mass/volume] in Serum or Plasma PTH INTACT BLD Lab Routine Nephrolithiasis Expected: 08/11/2022, Expires: 10/11/2022 [facility] Work Phone: Comment on above: Expected: 08/11/2022, Expires: 2 Start: 08-11-2022 End: 10-11-2022 Urinalysis complete panel - Urine URINALYSIS, WITH MICROSCOPIC Lab Routine Nephrolithiasis Expected: 08/11/2022, Expires: 10/11/2022 [facility] Work Phone: Comment on above: Expected: 08/11/2022, Expires: 2 Start: 11-19-2021 DEPRESSION ASSESSMENT DEPRESSION ASSESSMENT [facility] Start: 11-19-2017 Annual wellness visit Annual Wellness Visit ([id number]) [facility] Start: 2017 PROSTATE CANCER SCREENING DISCUSSION PROSTATE CANCER SCREENING DISCUSSION [facility] Start: 02-22-2012 Measurement of occult blood in single stool specimen [facility] Start: 02-22-2012 Screening for malignant neoplasm of colon [facility] Start: 02-22-2012 Shingles (RZV) Vaccine (1 of 2) Shingles (RZV) Vaccine (1 of 2) [facility] Start: 02-22-2012 SHINGRIX VACCINE (1 of 2) SHINGRIX VACCINE (1 of 2) [facility] Start: 2007 COLOGUARD (FIT-DNA) COLOGUARD (FIT-DNA) [facility] Start: 2007 Colonoscopy COLONOSCOPY [facility] Start: 2007 COLORECTAL CANCER SCREENING COLORECTAL CANCER SCREENING [facility] Start: [address] COLONOGRAPHY [facility] Start: 2007 DIABETES SCREEN DIABETES SCREEN [facility] Start: 2007 FECAL OCCULT BLOOD FECAL OCCULT BLOOD [facility] Start: 2007 SIGMOIDOSCOPY SIGMOIDOSCOPY [facility] Start: 1997 Lipid panel Cholesterol [facility] Start: 1997 LIPID SCREEN LIPID SCREEN [facility] Start: 1981 Urine microalbumin profile DTAP,TDAP,TD (1 - Tdap) [facility] Start: 02-22-1980 ANNUAL PCP TEAM CHRONIC DISEASE VISIT ANNUAL PCP TEAM CHRONIC DISEASE VISIT [facility] Start: 02-22-1980 BP CONTROLLED (<130/80) BP CONTROLLED (<130/80) [facility] Start: 02-22-1980 Hepatitis B surface antibody level LDL CHOLESTEROL [facility] Start: 02-22-1980 Hepatitis C screening Hepatitis C Antibody [facility] Start: 02-22-1980 HEPATITIS C SCREENING HEPATITIS C SCREENING [facility] Start: 02-22-1980 HIV SCREENING HIV SCREENING [facility] Start: 02-22-1980 Tetanus + diphtheria + acellular pertussis vaccine (product) Tdap Booster [facility] Start: 1977 HIV screening HIV Test [facility] Start: 1974 Adult depression screening assessment DEPRESSION SCREENING [facility] Start: 02-22-1972 3 comp foot exam completed DIABETIC FOOT EXAM [facility] Start: 02-22-1972 Hepatitis B screening URINE ALBUMIN:CREATININE RATIO [facility] Start: 02-22-1972 Hepatitis C antibody, confirmatory test DILATED RETINAL EXAM [facility] Start: 02-22-1968 PNEUMOCOCCAL (1 - PCV) PNEUMOCOCCAL (1 - PCV) [facility] Start: 1967 Hemoglobin A1c/Hemoglobin.total in Blood HBA1C [facility] Start: 1962 COVID-19 Vaccine (#1) COVID-19 Vaccine (#1) [facility] Start: 1962 Screening for malignant neoplasm of colon Colonoscopy [facility] End: 09-10-2023 Ct abdomen & pelvis w/o contrast material CT FLANK WO IVCON Radiology Routine Calculus of kidney with calculus of ureter 1 Occurrences starting 08/11/2022 until 09/10/2023 [facility] Work Phone: Comment on above: 1 Occurrences starting 08/11/2022 until 09/10/2023 [facility] Immunizations Immunization Date Immunization Notes Care Provider Fa cility 08-08-2023 influenza, injectabl e, quadrivalent, preservative free Sp Chowdary Other [facility] 07-20-2023 influenza virus vaccine, unspecified formulation Duran CRANDALL [facility] 08-13-2022 SARS-CoV-2 (COVID-19 ) [id number] Duran CRANDALL [facility] 07-26-2022 influenza virus vaccine, split virus (incl. purified surface antigen) Sp Chowdary Other [facility] Other 07-26-2022 influenza virus vaccine, unspecified formulation Duran MANJames [facility] 10-23-2021 COVID-19 Vaccine Pfi zer - Documentation Purposes Only Sp Chowdary Other [facility] 08-11-2021 influenza virus vaccine, split virus (incl. purified surface antigen) Sp Chowdary Other [facility] Other 08-11-2021 influenza virus vaccine, unspecified formulation [facility] 08-10-2021 influenza virus vaccine, unspecified formulation Pelon COLES [facility] 04-15-2021 SARS-CoV-2 (COVID-19 ) Ad26 vaccine, recombinant Pelon COLES [facility] 03-25-2021 SARS-CoV-2 (COVID-19 ) Ad26 vaccine, recombinant Pelon COLES [facility] 02-15-2021 SARS-CoV-2 (COVID-19 ) mRNA BNT-162b2 vax Duran [employer] [facility] [employer] 01-25-2021 SARS-CoV-2 (COVID-19 ) mRNA BNT-162b2 vax Duran [employer] [facility] 01-13-2021 tetanus and diphther ia toxoids, adsorbed, preservative free, for adult use (5 Lf of tetanus toxoid and 2 Lf of diphtheria toxoid) Sp Chowdary Other [facility] 07-20-2020 influenza virus vaccine, split virus (incl. purified surface antigen) Sp Chowdary Other [employer] [facility] [employer] Other 07-20-2020 influenza virus vaccine, unspecified formulation [facility] 08-18-2019 influenza virus vaccine, split virus (incl. purified surface antigen) Sp Chowdary Other [facility] [employer] Other 08-18-2019 influenza virus vaccine, unspecified formulation [facility] 07-20-2019 influenza virus vaccine, live, attenuated, for intranasal use Pelon COLES [facility] 08-26-2018 influenza virus vaccine, split virus (incl. purified surface antigen) Sp Chowdary Other [facility] Other 08-26-2018 influenza virus vaccine, unspecified formulation Pelon COLES [facility] 08-31-2017 influenza virus vaccine, unspecified formulation Pelon COLES [facility] 08-31-2017 tetanus and diphther ia toxoids, adsorbed, preservative free, for adult use (5 Lf of tetanus toxoid and 2 Lf of diphtheria toxoid) Sp Chowdary Other [facility] 10-02-2016 pneumococcal conjuga te vaccine, 13 valent Sp Chowdary Other [facility] 10-02-2016 pneumococcal Conjuga te, unspecified formulation; Translations: [Need for prophylactic vaccination against Streptococcus pneumoniae (pneumococcus)] Sp Chowdary Other [facility] [employer] Other 07-25-2016 tetanus and diphther ia toxoids, adsorbed, preservative free, for adult use (5 Lf of tetanus toxoid and 2 Lf of diphtheria toxoid) Sp Chowdary Other [facility] 07-21-2015 tetanus and diphther ia toxoids, adsorbed, preservative free, for adult use (5 Lf of tetanus toxoid and 2 Lf of diphtheria toxoid) Sp Chowdary Other [facility] 06-21-2015 pneumococcal polysaccharide vaccine, 23 valent Sp Chowdary Other [facility] 07-30-2013 tetanus and diphther ia toxoids, adsorbed, preservative free, for adult use (5 Lf of tetanus toxoid and 2 Lf of diphtheria toxoid) Sp Chowdary Other [facility] 08-01-2012 tetanus and diphther ia toxoids, adsorbed, preservative free, for adult use (5 Lf of tetanus toxoid and 2 Lf of diphtheria toxoid) Sp Chowdary Other [facility] 07-30-2008 diphtheria, tetanus toxoids and acellular pertussis vaccine, unspecified formulation Sp Chowdary Other [facility] 10-02-2001 Td(adult) unspecifie d formulation Pelon COLES [facility] [place] Payers Date Payer Category Payer Self-pay [id number] 2019 Private Health Insurance [facility] CHOICE PLUS [id number] 2019-Present [phone] [address] [place] [address] HMO [id number] 2016 Medicare [id number] 2001 Medicare [id number] 1962 Unknown [id number] 2.16.840.1.981746.3.579. 2.732 1962 Unknown [id number] 2.16.840.1.695935.3.579. 2.593 1962 Unknown [id number] 2.16.840.1.753589.3.579. 2.593 1962 Unknown [id number] 2.16.840.1.889489.3.579. 2.593 1962 Unknown [id number] 2.16.840.1.509168.3.579. 2.593 1962 Unknown [id number] 2.16.840.1.540718.3.579. 2.593 1962 Unknown [id number] 2.16.840.1.737331.3.579. 2.593 1962 Unknown [id number] 2.16.840.1.330295.3.579. 2.593 1962 Unknown [id number] 2.16.840.1.214528.3.579. 2.593 1962 Unknown [id number] 2.16.840.1.401941.3.579. 2.593 1962 Unknown [id number] 2.16.840.1.628866.3.579. 2.593 1962 Unknown [id number] 2.16.840.1.941132.3.579. 2.593 1962 Unknown [id number] 2.16.840.1.636408.3.579. 2.593 1962 Unknown [id number] 2.16.840.1.453368.3.579. 2.593 1962 Unknown [id number] 2.16.840.1.440780.3.579. 2.593 1962 Unknown [id number] 2.16.840.1.481569.3.579. 2.593 1962 Unknown [id number] 2.16.840.1.264794.3.579. 2.593 1962 Unknown [id number] 2.16.840.1.873456.3.579. 2.593 1962 Unknown [id number] 2.16.840.1.356206.3.579. 2.593 1962 Unknown [id number] 2.16.840.1.771937.3.579. 2.593 1962 Unknown [id number] 2.16.840.1.164989.3.579. 2.593 1960 Unknown [id number] 2.16.840.1.091771.3.579. 2.593 1960 Unknown [id number] 2.16.840.1.787594.3.579. 2.727 1960 Unknown [id number] 2.16.840.1.286892.3.579. 2.727 1960 Unknown [id number] 2.16.840.1.816451.3.579. 2.727 1960 Unknown [id number] 2.16.840.1.422542.3.579. 2.7 1960 Unknown [id number] 2.16.840.1.178824.3.579. 2. 1960 Unknown [id number] 2.16.840.1.638466.3.579. 2. 1960 Unknown [id number] 2.16.840.1.573912.3.579. 2. 1960 Unknown [id number] 2.16.840.1.223978.3.579. 2. 1960 Unknown [id number] 2.16.840.1.977675.3.579. 2. 1960 Unknown [id number] 2.16.840.1.693798.3.579. 2. 1960 Unknown [id number] 2.16.840.1.125498.3.579. 2. 1960 Unknown [id number] 2.16.840.1.281815.3.579. 2. 1960 Unknown [id number] 2.16.840.1.612788.3.579. 2. 1960 Unknown [id number] 2.16.840.1.620763.3.579. 2.727 1957 Medicare [id number] 1957 Unknown [id number] Private Health Insurance [facility] [id number] Unknown [employer] [id number] Unknown [id number] 2.16.840.1.432717.3.579. 2.531 Unknown [id number] 2.16.840.1.661998.3.579. 2.531 Unknown [id number] 2.16.840.1.085872.3.579. 2.531 Social History Date Type Detail Facility Start: 03-13-2022 End: 12-17-2023 Tobacco smoking status Never smoked tobacco (finding) [facility] Tobacco smoking status Never [facility] Sex Assigned At Male [facility] Tobacco smoking status NHIS Tobacco smoking consumption unknown [facility] Start: 1960 Sex Assigned At Not on file [facility] Start: 08-04-2022 End: 09-26-2022 Exposure to SARS-CoV-2 (event) Not sure [facility] History of tobacco use Passive smoker [facility] Start: 08-28-2022 Tobacco use and exposure Smokeless tobacco non-user [facility] Start: 08-28-2022 End: 09-11-2022 Alcohol intake Ex-drinker (finding) [facility] Start: 1960 Sex Assigned At Male [facility] Medical Equipment Procedure Code Equipment Code Equipment Origin al Text Equipment Identifier Dates Stent Inlay Opti ma 7r 26cm [id number] Start: 09-11-2022 Insulin U-500 Syringe-Needle (Bd Insulin Syringe U-500) 1/2 mL 31 gauge x 15/64 syringe Start: 01-08-2024 Functional Status Date Assessment Result Facility 12-17-2023 Functional Status N/A [facility] 10-29-2023 Functional Status N/A [facility] 10-05-2023 Functional Status N/A [facility] 12-18-2022 Functional Status N/A [facility] Clinical Notes 03-13-2022 to 12-17-2023 Note Date & Type Note Facility 12-17-2023 Hospital Discharg e instructions Patient Education 12/17/2023 12:45:04 Erectile Dysfunction Erectile Dysfunction Erectile dysfunction (ED) is the inability to get or keep an erection in order to have sexual intercourse. ED is considered a symptom of an underlying disorder and is not considered a disease. ED may include: Inability to get an erection. Lack of enough hardness of the erection to allow penetration. Loss of erection before sex is finished. What are the causes? This condition may be caused by: Physical causes, such as: ?Artery problems. This may include heart disease, high blood pressure, atherosclerosis, and diabetes. ?Hormonal problems, such as low testosterone. ?Obesity. ?Nerve problems. This may include back or pelvic injuries, multiple sclerosis, Parkinson's disease, spinal cord injury, and stroke. Certain medicines, such as: ?Pain relievers. ?Antidepressants. ?Blood pressure medicines and water pills (diuretics). ?Cancer medicines. ?Antihistamines. ?Muscle relaxants. Lifestyle factors, such as: ?Use of drugs such as marijuana, cocaine, or opioids. ?Excessive use of alcohol. ?Smoking. ?Lack of physical activity or exercise. Psychological causes, such as: ?Anxiety or stress. ?Sadness or depression. ?Exhaustion. ?Fear about sexual performance. ?Guilt. What are the signs or symptoms? Symptoms of this condition include: Inability to get an erection. Lack of enough hardness of the erection to allow penetration. Loss of the erection before sex is finished. Sometimes having normal erections, but with frequent unsatisfactory episodes. Low sexual satisfaction in either partner due to erection problems. A curved penis occurring with erection. The curve may cause pain, or the penis may be too curved to allow for intercourse. Never having nighttime or morning erections. How is this diagnosed? This condition is often diagnosed by: Performing a physical exam to find other diseases or specific problems with the penis. Asking you detailed questions about the problem. Doing tests, such as: ?Blood tests to check for diabetes mellitus or high cholesterol, or to measure hormone levels. ?Other tests to check for underlying health conditions. ?An ultrasound exam to check for scarring. ?A test to check blood flow to the penis. Doing a sleep study at home to measure nighttime erections. How is this treated? This condition may be treated by: Medicines, such as: ?Medicine taken by mouth to help you achieve an erection (oral medicine). ?Hormone replacement therapy to replace low testosterone levels. ?Medicine that is injected into the penis. Your health care provider may instruct you how to give yourself these injections at home. ?Medicine that is delivered with a short applicator tube. The tube is inserted into the opening at the tip of the penis, which is the opening of the urethra. A tiny pellet of medicine is put in the urethra. The pellet dissolves and enhances erectile function. This is also called MUSE (medicated urethral system for erections) therapy. Vacuum pump. This is a pump with a ring on it. The pump and ring are placed on the penis and used to create pressure that helps the penis become erect. Penile implant surgery. In this procedure, you may receive: ?An inflatable implant. This consists of cylinders, a pump, and a reservoir. The cylinders can be inflated with a fluid that helps to create an erection, and they can be deflated after intercourse. ?A semi-rigid implant. This consists of two silicone rubber rods. The rods provide some rigidity. They are also flexible, so the penis can both curve downward in its normal position and become straight for sexual intercourse. Blood vessel surgery to improve blood flow to the penis. During this procedure, a blood vessel from a different part of the body is placed into the penis to allow blood to flow around (bypass) damaged or blocked blood vessels. Lifestyle changes, such as exercising more, losing weight, and quitting smoking. Follow these instructions at home: Medicines Take [id number] and prescription medicines only as told by your health care provider. Do not increase the dosage without first discussing it with your health care provider. If you are using self-injections, do injections as directed by your health care provider. Make sure you avoid any veins that are on the surface of the penis. After giving an injection, apply pressure to the injection site for 5 minutes. Talk to your health care provider about how to prevent headaches while taking ED medicines. These medicines may cause a sudden headache due to the increase in blood flow in your body. General instructions Exercise regularly, as directed by your health care provider. Work with your health care provider to lose weight, if needed. Do not use any products that contain nicotine or tobacco. These products include cigarettes, chewing tobacco, and vaping devices, such as e-cigarettes. If you need help quitting, ask your health care provider. Before using a vacuum pump, read the instructions that come with the pump and discuss any questions with your health care provider. Keep all follow-up visits. This is important. Contact a health care provider if: You feel nauseous. You are vomiting. You get sudden headaches while taking ED medicines. You have any concerns about your sexual health. Get help right away if: You are taking oral or injectable medicines and you have an erection that lasts longer than 4 hours. If your health care provider is unavailable, go to the nearest emergency room for evaluation. An erection that lasts much longer than 4 hours can result in permanent damage to your penis. You have severe pain in your groin or abdomen. You develop redness or severe swelling of your penis. You have redness spreading at your groin or lower abdomen. You are unable to urinate. You experience chest pain or a rapid heartbeat (palpitations) after taking oral medicines. These symptoms may represent a serious problem that is an emergency. Do not wait to see if the symptoms will go away. Get medical help right away. Call your local emergency services (911 in the [place] Do not drive yourself to the hospital. Summary Erectile dysfunction (ED) is the inability to get or keep an erection during sexual intercourse. This condition is diagnosed based on a physical exam, your symptoms, and tests to determine the cause. Treatment varies depending on the cause and may include medicines, hormone therapy, surgery, or a vacuum pump. You may need follow-up visits to make sure that you are using your medicines or devices correctly. Get help right away if you are taking or injecting medicines and you have an erection that lasts longer than 4 hours. This information is not intended to replace advice given to you by your health care provider. Make sure you discuss any questions you have with your health care provider. Document Revised: 02/01/2022 Document Reviewed: 02/01/2022 [employer] Patient Education 2022 [employer]. Follow Up Care 12/13/2023 11:10:14 With:SANKET PRECIADO, Pelon Mujica, URL Address: [facility] [address], [place] [address]- [phone] When: Unknown Comments:1 yr w/ PSA and KUB [facility] Ciro 11-23-2023 Evaluation note Encounter Date Diagnosis Assessment Notes Nov, Type 2 diabetes mellitus with hyperglycemia (ICD-10 - E11.65) This patient is following a comprehensive diabetic treatment plan. They are checking their feet daily and scheduling a dilated eye exam yearly. Goals: SBP<130, LDL<100, BS<140 AC, A1C<7% They are checking their BS 3x daily, alternating times. Decreasing Basaglar w/ goal FBS 130 Decrease ISS to avoid hypoglycemic episodes [employer] [facility] [employer] Other 12-14-2023 Evaluation note* Encounter Date Diagnosis Assessment Notes Treatment Notes Treatment Clinical Notes Oct, Type 2 diabetes mellitus with hyperglycemia (ICD-10 - E11.65) [facility] [employer] Other 12-11-2023 Hospital Discharge instructions Follow Up Care 10/29/2023 11:16:58 With:SANKET PRECIADO, Pelon Mujica, URL Address: [facility] [address] , [place] [address]- When: Unknown Comments:Scheduled for TRUS/bx on 11/27/23. [facility] 12-05-2023 Evaluation note* Encounter Date Diagnosis Assessment Notes Treatment Notes Treatment Clinical Notes Oct, Primary hypertension (ICD-10 - I10) This patient is instructed to consume a healthy, low-fat, low-salt diet. They are also encouraged to continue exercise to achieve/maintain a normal BMI. Oct, Hyperlipidemia, mixed (ICD-10 - E78.2) Instructed on diet and exercise with continued statin therapy.Discussed the beneficial effects of lowering cholesterol in reducing the risk for cerebrovascular and cardiovascular disease. Oct, Type 2 diabetes mellitus with hyperglycemia (ICD-10 - E11.65) This patient is following a comprehensive diabetic treatment plan. They are checking their feet daily for calluses and nonhealing ulcers. They are being seen for yearly dilated eye examinations. Goals: SBP less than 130, LDL less than 100, FBS less than 140, A1C less than 7%. They are checking their BS daily, will which are reviewed at the office visit. Continue regular routine monitoring of A1C,] Microalbumin, Dilated eye exam and Foot exam Oct, Type 2 diabetes mellitus with diabetic polyneuropathy (ICD-10 - E11.42) Inspect feet daily for cuts and calluses.Recommend diabetic shoes and inserts to prevent callus formation.Fall precautions. Oct, Obstructive sleep apnea (ICD-10 - G47.33) This patient is aware of the benefits associated with KUNAL: With continued use, the patient reduces the risk for NC, CVA, HTN, cardiac dysrhythmias and sudden cardiac deaths.The patient is also aware of the association between KUNAL and morning headaches, daytime somnolence, fatigue and obesity, which also has been improved with continued use.The patient is compliant with treatment, wearing the equipment every night for greater than 4 hours.The patient is instructed to continue use of the CPAP for KUNAL treatment. Oct, Lumbar spondylosis (ICD-10 - M47.816) The patient is instructed to avoid bending, twisting or lifting. They are to use intermittent heat and ice as needed. They may schedule a massage or gentle manipulation. They may safely use Tylenol as needed. f/u pain clinic Oct, Other obesity due to excess calories (ICD-10 - E66.09) This patient has been instructed on a low-fat, high-fiber diet. They are instructed to reduce calories, portion sizes and snacks. It is recommended that they exercise for 30 minutes, 3-5 times weekly. Oct, Body mass index [BMI] 34.0-34.9, adult (ICD-10 - Z68.34) Oct, Recurrent major depressive disorder, in full remission (ICD-10 - F33.42) Healthy diet, exercise, keep active. 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 Chowdary for anemia/history of colon polyps. Last colonoscopy completed 09/2019 with tubular adenoma x 4. H/H- 13.3/40.4. Reports several week history of abdominal pain and nausea for which he contributes to use of Ozempic. Denies vomiting. No rectal pain or bleeding. Denies change in bowel habits. No unexplained weight loss. No known family history of colon cancer. History of Present Illness 63 yo male with h/o htn, DMII, hyperlipidemia, Parkinson's disease, POTS, CKD, KUNAL, lumbar spondylosis, bph, referred for surveillance colonoscopy and mild anemia, gastroparesis; patient had last colonoscopy 09/2019 with removal of 4 tubular adenomas; had 7 tubular adenomas removed at time of colonoscopy in 2017; no previous abd operations; intermittent bloating and epigastric pain; chronic mild anemia; denies change in bms or blood in stools, no melena; no dysphagia or early satiety; no asa orNSAID use, no SBE prophylaxis; no fmhx of GI malignancy or IBD; no tobacco use. Review of Systems PHQ Score Initial Depression Screen Score: 0 SCORE ROS - Provider Constitutional: no fever, no sweats, no weight loss. Eyes: yes glasses, no blurred vision, no visual loss. ENMT: no dentures, no hoarseness, no swallowing difficulties, no hearing loss, no ear infection(s),no nose bleeds. Cardiovascular: normal blood pressure, no chest pain, regular heartbeat, no heart murmur. Respiratory: no shortness of breath, no cough, no asthma, no wheezing. Gastrointestinal: no nausea, no vomiting, no diarrhea, no constipation, no blood in stool, no change in bowel habits, no abdominal pain, no hepatitis. Genitourinary: no kidney stones, no urine infection, no dysuria. Musculoskeletal: no pain, no weakness. Skin: no changing moles, no rash, no skin lumps. Neurologic: no seizures, no epilepsy, no headache. Psychiatric: no emotional or psychiatric problem. Heme/Lymph: no bleeding problems, no anemia, no blood clots, no transfusions. Allergy/Immunologic: no swollen lymph nodes/glands, no IV drug abuse. Other: Additional ROS info: Except as noted in the above Review of Systems and in the History of Present Illness, all other systems have been reviewed and are negative or noncontributory. Physical Exam Vitals & Measurements HR: 80(Peripheral) RR: 16 BP: 144/82 HT: 70 in HT: 177 cm WT: 103.6 kg WT: 227.92 lb BMI: 33.07 HEENT: normal conjunctiva, sclera clear, no scleral icterus, EOM intact, PERRLA, oral mucosa moist without lesions. Neck: trachea midline, no mass, symmetric, no thyromegaly or nodules, no adenopathy Respiratory: lungs CTA, respirations non labored. Cardiovascular: regular rate and rhythm, no murmur, no pedal edema or varicosities. Gastrointestinal: soft, non distended, no tenderness, no masses, no palpable hernias, diastasis recti no, no hepatosplenomegaly; normal bs Lymphatic: no cervical adenopathy, no supraclavicular adenopathy. Musculoskeletal: normal gait, digits and nails without infection, nodes, cyanosis, clubbing. Skin: no rashes, no lesions, no ulcers, no subcutaneous nodules, induration. Psychiatric/Neuro: oriented to time, place, person, judgement normal, affect appropriate for age, insight intact, no focal deficits. Tests: labs reviewed,review of old records completed , Discussed surgical options, risks, and possible complications with patient. Assessment/Plan 1. Personal history of colonic polyps (Z86.010: Personal history of colonic polyps) plan EGD and colonoscopy under anesthesia, informed consent obtained. 2. Anemia (D64.9: Anemia, unspecified) see # 1 3. Abdominal bloating (R14.0: Abdominal distension (gaseous)) see # 1 Follow-up No qualifying data available Problem List/Past Medical History Ongoing Abdominal bloating Anemia Arthritis Bladder cancer BMI 33.0-33.9,adult BPH with obstruction/lower urinary tract symptoms Chronic kidney disease Depression Diabetes mellitus, type 2 Elevated PSA Erectile dysfunction Gross hematuria History of bladder cancer History of colon polyps History of kidney stones Hyperlipidemia Hyperparathyroidism Hypertension Kidney stones Lumbar spondylosis Obesity KUNAL (obstructive sleep apnea) Parkinson's disease Personal history of colonic polyps Polyneuropathy due to type 2 diabetes mellitus POTS (postural orthostatic tachycardia syndrome) Prostate nodule Urine retention Historical No qualifying data Procedure/Surgical History Cystoscopy (08/30/2021), Cystoscopy (08/24/2020), Cystoscopy (12/16/2019), Colonoscopy (09/2019), Colonoscopy (10/2017), Biopsy of prostate (2016), bladder tumor (2006), right leg bone tumor (2001), ankle surgery, Lithotripsy, Transurethral water vapour ablation of prostate. Medications amlodipine, 5 mg, Oral, Daily Basaglar KwikPen Cialis 20 mg Tab, 20 mg= 1 tab(s), Oral, As Direct (more content not included)...[facility]:Result Comment: Electronically Signed By: KARLEY PRECIADO, Duran Mujica\.maria e\Date and Time Signed: 10/05/23 14:45 [id number] Hospital Discharge instructions Follow Up Care 10/02/2023 11:36:47 With:SANKET PRECIADO, Pelon Mujica, URL Address: [facility] [address] , [place] [address]- [phone] When: Unknown [facility] Meghann 09-01-2023 Evaluation note* Encounter Date Diagnosis Assessment Notes Treatment Notes Treatment Clinical Notes Jul, Controlled type 2 diabetes mellitus with hyperglycemia, without long-term current use of insulin (ICD-10 - E11.65) [facility] Other 07-25-2023 Note [id number] 06-12-2023 NoteCustom Cystoscopy ? Voiding after the procedure: there may be some pain, burning, urgency, frequency and blood tingedurine following the procedure. These symptoms usually resolve within 2-5 days. Drink the amount of fluid it takes to keep the urine pink to yellow or clear in color. Drinking enough water and fluids will help to ease any discomfort after your procedure. ? If you are having problems that seem out of the ordinary, please call. ? If unable to contact your physician and you feel it is an emergency, go to the nearest emergency room or call 911 ? Diet ? you may resume your normal diet. ? Activity ? you may resume your normal activities ? Call if you have a fever over 100 degrees.[facility] 04-24-2023 Evaluation note* Encounter Date Diagnosis Assessment Notes Treatment Notes Treatment Clinical Notes Apr, Primary hypertension (ICD-10 - I10) This patient is instructed to consume a healthy, low-fat, low-salt diet. They are also encouraged to continue exercise to achieve/maintain a normal BMI. Apr, Obstructive sleep apnea (ICD-10 - G47.33) This patient is aware of the benefits associated with KUNAL: With continued use, the patient reduces the risk for NC, CVA, HTN, cardiac dysrhythmias and sudden cardiac deaths.The patient is also aware of the association between KUNAL and morning headaches, daytime somnolence, fatigue and obesity, which also has been improved with continued use.The patient is compliant with treatment, wearing the equipment every night for greater than 4 hours.The patient is instructed to continue use of the CPAP for KUNAL treatment. Apr, Controlled type 2 diabetes mellitus with hyperglycemia, without long-term current use of insulin (ICD-10 - E11.65) This patient is following a comprehensive diabetic treatment plan. They are checking their feet daily for calluses and nonhealing ulcers. They are being seen for yearly dilated eye examinations. Goals: SBP less than 130, LDL less than 100, FBS less than 140, AC and A1C less than 7%. They are checking their BS daily, will which are reviewed at the office visit. Continue regular routine monitoring of A1C,] Microalbumin, Dilated eye exam and Foot exam Apr, Type 2 diabetes mellitus with diabetic polyneuropathy, without long-term current use of insulin (ICD-10 - E11.42) Inspect feet daily for cuts and calluses.Recommend diabetic shoes and inserts to prevent callus formation.Fall precautions. 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 Apr, Lumbar spondylosis (ICD-10 - M47.816) The patient is instructed to avoid bending, twisting or lifting. They are to use intermittent heat and ice as needed. They may schedule a massage or gentle manipulation. They may safely use Tylenol as needed. f/u Pain management Apr, Adenomatous polyp of ascending colon (ICD-10 - D12.2) 3 polypectomy - 2019 Due for colonoscopy this year. Mild anemia present, would add EGD for completeness. Apr, Adenomatous polyp of descending colon (ICD-10 - D12.4) 1 polypectomy - 2019 Apr, Other obesity due to excess calories (ICD-10 - E66.09) This patient has been instructed on a low-fat, high-fiber diet. They are instructed to reduce calories, portion sizes and snacks. It is recommended that they exercise for 30 minutes, 3-5 times weekly. Apr, Body mass index [BMI ] 34.0-34.9, adult (ICD-10 - Z68.34) [facility] Other 04-06-2023 NoteCONSULTATION CONSULTATION DATE: 02/22/2023 TO: Dr. Maya CHIEF COMPLAINT: Includes severe lower back pain on the left side. HISTORY OF PRESENT ILLNESS: Review of systems, past medical/surgical history were obtained and documented on the health questionnaire and is available upon request. He is a 63-year-old male, reports having had sustained a fall approximately one year, falling on his buttock and having pain starting almost immediately in his lower back, on the left side, with burning pain in his left hip and buttock area. He reports the pain generally increased with activities such as standing, walking and performing transitioning maneuvers. He feels most comfortable in the semi-recumbent position. He denied any change in bowel and bladder habits or new sensorimotor changes in his lower extremities. EXAM: Notable for patient having no clinical radiculopathy or myelopathy involving his lower extremities. He had severe pain with lumbar facet loading maneuvers on the left side from L4 through S1 with associated myofascial spasm of the lumbar paravertebral muscles. IMPRESSION: Our impression is patient with chronic pain secondary to lumbosacral spondylosis with facet loading pain clinically and myofascial spasm. RECOMMENDATIONS: I have asked him to trial baclofen 10 mg pills, half to one b. i.d.; aquatic therapy and proceed with a left sided L4-5, L5-S1 facet injection under fluoroscopic guidance. We will also obtain lumbar spine films, PA and lateral views. As part of providing excellent, safe, comprehensive care, the following was completed at our patient's visit: 1. A medication reconciliation and review to ensure accurate knowledge of current/active medications, including asking our patients to inform us about any jlto-esc-lqgyvwb medications or herbal remedies/nutritional supplements/alternative remedies. 2. A review to specifically ensure our patients have had annual screening for: elevated body mass index (BMI, see intake chart for exact total), tobacco use, screening for depression, and screening for unhealthy alcohol use. When screening is concerning, patients are provided with education and the specific recommendation to discuss the concerning health issue and treatment options with their primary care provider.[id number] Evaluation note * Encounter Date Diagnosis Assessment Notes Treatment Notes Treatment Clinical Notes Jan, Post-traumatic osteoarthritis of right knee (ICD-10 - M17.31) Jan, Muscle strain of left gluteal region, initial encounter (ICD-10 - S76.012A) Jan, Left hip pain (ICD-10 - M25.552) Jan, Acute pain of right knee (ICD-10 - M25.561) Jan, Other We had a very l colby conversation regarding his right knee. I explained to him that since he has tried all the conservative options including injections the only other treatment options would be considering a total knee replacement or radiofrequency nerve ablations for further pain management. In regards to the total knee replacement I did discuss this patient in depth with one of my colleagues, Dr. Velazquez, regarding the removal of hardware. We both came to the same conclusion, one that I shared with the patient, all of the hardware would need to be removed to ensure that an appropriate total knee replacement could be performed. As I explained to the patient we may be able to get away with using a CR femur but in the event that we had to go to a PS femur we would have to remove the hardware. I would feel more comfortable making sure the hardware was out completely so that all options would be available to us and arthroplasty surgery. Patient appreciated the honesty and information. At this point time we will think about it and call if he wants to move forward with anything in the future. [facility] Other 03-06-2023 Evaluation note* Encounter Date Diagnosis Assessment Notes Treatment Notes Treatment Clinical Notes Jan, Controlled type 2 diabetes mellitus with hyperglycemia, without long-term current use of insulin (ICD-10 - E11.65) This patient is following a comprehensive diabetic treatment plan. They are checking their feet daily for calluses and nonhealing ulcers. They are being seen for yearly dilated eye examinations. Goals: SBP less than 130, LDL less than 100, FBS less than 140, AC and A1C less than 7%. They are checking their BS daily, will which are reviewed at the office visit. Jan, Wellness examination (ICD-10 - Z00.00) Jan, Type 2 diabetes mellitus with diabetic polyneuropathy, without long-term current use of insulin (ICD-10 - E11.42) Inspect feet daily for cuts and calluses.Recommend diabetic shoes and inserts to prevent callus formation.Fall precautions. Jan, Primary hypertension (ICD-10 - I10) Jan, Hyperlipidemia, mixed (ICD-10 - E78.2) Diet and exercise Jan, Obstructive sleep apnea (ICD-10 - G47.33) Noncompliant Jan, Lumbar spondylosis (ICD-10 - M47.816) The patient is instructed to avoid bending, twisting or lifting. They are to use intermittent heat and ice as needed. They may schedule a massage or gentle manipulation. They may safely use Tylenol as needed. Jan, Frequency of micturition (ICD-10 - R35.0) Jan, Benign prostatic hyperplasia with lower urinary tract symptoms (ICD-10 - N40.1) Symptoms tolerable Continue Cialis daily Jan, Prostate nodule (ICD-10 - N40.2) Active Surveillance - last PSA 10, which is down from 13 - f/u Urology [facility] Other 01-30-2023 Hospital Discharge instructions Patient Education 12/18/2022 08:42:16 Benign Prostatic Hyperplasia Benign Prostatic Hyperplasia Benign prostatic hyperplasia (BPH) is an enlarged prostate gland that is caused by the normal agingprocess and not by cancer. The prostate is a walnut-sized gland that is involved in the production of semen. It is located in front of the rectum and below the bladder. The bladder stores urine and the urethra is the tube that carries the urine out of the body. The prostate may get bigger as a man gets older. An enlarged prostate can press on the urethra. This can make it harder to pass urine. The build-up of urine in the bladder can cause infection. Back pressure and infection may progress to bladder damage and kidney (renal) failure. What are the causes? This condition is part of a normal aging process. However, not all men develop problems from this condition. If the prostate enlarges away from the urethra, urine flow will not be blocked. If it enlarges toward the urethra and compresses it, there will be problems passing urine. What increases the risk? This condition is more likely to develop in men over the age of 50 years. What are the signs or symptoms? Symptoms of this condition include: Getting up often during the night to urinate. Needing to urinate frequently during the day. Difficulty starting urine flow. Decrease in size and strength of your urine stream. Leaking (dribbling) after urinating. Inability to pass urine. This needs immediate treatment. Inability to completely empty your bladder. Pain when you pass urine. This is more common if there is also an infection. Urinary tract infection (UTI). How is this diagnosed? This condition is diagnosed based on your medical history, a physical exam, and your symptoms. Tests will also be done, such as: A post-void bladder scan. This measures any amount of urine that may remain in your bladder after you finish urinating. A digital rectal exam. In a rectal exam, your health care provider checks your prostate by putting a lubricated, gloved finger into your rectum to feel the back of your prostate gland. This exam detects the size of your gland and any abnormal lumps or growths. An exam of your urine (urinalysis). A prostate specific antigen (PSA) screening. This is a blood test used to screen for prostate cancer. An ultrasound. This test uses sound waves to electronically produce a picture of your prostate gland. Your health care provider may refer you to a specialist in kidney and prostate diseases (urologist). How is this treated? Once symptoms begin, your health care provider will monitor your condition (active surveillance or watchful waiting). Treatment for this condition will depend on the severity of your condition. Treatment may include: Observation and yearly exams. This may be the only treatment needed if your condition and symptoms are mild. Medicines to relieve your symptoms, including: ?Medicines to shrink the prostate. ?Medicines to relax the muscle of the prostate. Surgery in severe cases. Surgery may include: ?Prostatectomy. In this procedure, the prostate tissue is removed completely through an open incision or with a laparoscope or robotics. ?Transurethral resection of the prostate (TURP). In this procedure, a tool is inserted through the opening at the tip of the penis (urethra). It is used to cut away tissue of the inner core of the prostate. The pieces are removed through the same opening of the penis. This removes the blockage. ?Transurethral incision (TUIP). In this procedure, small cuts are made in the prostate. This lessens the prostate's pressure on the urethra. ?Transurethral microwave thermotherapy (TUMT). This procedure uses microwaves to create heat. The heat destroys and removes a small amount of prostate tissue. ?Transurethral needle ablation (TUNA). This procedure uses radio frequencies to destroy and remove a small amount of prostate tissue. ?Interstitial laser coagulation (ILC). This procedure uses a laser to destroy and remove a small amount of prostate tissue. ?Transurethral electrovaporization (TUVP). This procedure uses electrodes to destroy and remove a small amount of prostate tissue. ?Prostatic urethral lift. This procedure inserts an implant to push the lobes of the prostate away from the urethra. Follow these instructions at home: Take fgjn-bxu-hkwgxdo and prescription medicines only as told by your health care provider. Monitor your symptoms for any changes. Contact your health care provider with any changes. Avoid drinking large amounts of liquid before going to bed or out in public. Avoid or reduce how much caffeine or alcohol you drink. Give yourself time when you urinate. Keep all follow-up visits as told by your health care provider. This is important. Contact a health care provider if: You have unexplained back pain. Your symptoms do not get better with treatment. You develop side effects from the medicine you are taking. Your urine becomes very dark or has a bad smell. Your lower abdomen becomes distended and you have trouble passing your urine. Get help right away if: You have a fever or chills. You suddenly cannot urinate. You feel lightheaded, or very dizzy, or you faint. There are large amounts of blood or clots in the urine. Your urinary problems become hard to manage. You develop moderate to severe low back or flank pain. The flank is the side of your body between the ribs and the hip. These symptoms may represent a serious problem that is an emergency. Do not wait to see if the symptoms will go away. Get medical help right away. Call your local emergency services (911 in the [place] Do not drive yourself to the hospital. Summary Benign prostatic hyperplasia (BPH) is an enlarged prostate that is caused by the normal aging process and not by cancer. An enlarged prostate can press on the urethra. This can make it hard to pass urine. This condition is part of a normal aging process and is more likely to develop in men over the age of 50 years. Get help right away if you suddenly cannot urinate. This information is not intended to replace advice given to you by your health care provider. Make sure you discuss any questions you have with your health care provider. Document Released: 11/05/2006 Document Revised: 09/30/2019 Document Reviewed: 12/10/2017 [employer] Patient Education 2020 [employer]. Follow Up Care 11/30/2022 15:02:18 With:SANKET PRECIADO, Pelon Mujica, URL Address: [facility] [address], [place] [address]- When: Unknown [facility] 01-26-2023 Evaluation note* Encounter Date Diagnosis Assessment Notes Treatment Notes Treatment Clinical Notes Nov, Post-traumatic osteoarthritis of right knee (ICD-10 - M17.31) Nov, Muscle strain of left gluteal region, initial encounter (ICD-10 - S76.012A) Nov, Left hip pain (ICD-10 - M25.552) Nov, Acute pain of right knee (ICD-10 - M25.561) Nov, Other In regards to t he left hip, I explained to him that overall his x-rays look really good. The way he describes his pain and points to this area to me seems more muscular. As a result, we will get him into physical therapy. In regards to the right knee, I explained to him that he does have some posttraumatic osteoarthritis and is ttpf-mk-pzbj in the medial compartment. He has had good success with steroids in the past and as result I recommended another steroid injection today. I informed the patient that the combination of the medication with their diabetes diagnosis could elevate their blood sugar levels temporarily. If they noticed any elevation of their blood sugar levels over the next several days, I recommended they call their PCP for further blood sugar management guidance. Patient understood and still wished to proceed with the injection. After consent was obtained, the right knee was injected with 3cc Kenalog and 7cc bupivicaine using sterile technique. Patient tolerated the injection well. In addition to the injection, Kay start him on 50 mg of meloxicam daily which hopefully would help his hip as well as the knee. I will plan to see him back in 2 to 3 months to check on his progress. [facility] Other 11-08-2022 NoteHNO ID: [id number] Author: Noelle Vega MD Service: ? Author Type: Physician Type: Progress Notes Filed: 09/26/2022 3:57 PM Note Text: CYSTOSCOPY WITH URETERAL STENT REMOVAL PROCEDURE NOTE: Dat Lopez is a 62 year old male who presents for cystoscopy and stent removal. 09/11/22 S/P LEFT PCNL, Ureteroscopy, laser lithotripsy with stent placement Stone analysis 70% COM and 20% COD Pt ID verified with patient: Yes Procedure verified with patient: Yes Procedure confirmed with physician and shipping support: Yes Sign In: History and Physical Exam reviewed and is unchanged. Primary Diagnosis: Nephrolithiasis Informed Consent Discussed: Yes Sign in Communication: Completed Time Out: Team Confirms the Correct Patient, Correct Procedure; Stent Extraction, Correct Site and Site Marking, Correct Position (if applicable). Affirmation of Time Out: YES Sign Out: Sign Out Discussion: Completed Physician: Noelle Vega MD The benefits, risks, alternatives of the cystoscopy procedure and personnel were discussed with the patient. The verbal consent was obtained and the patient agrees to proceed. Prophylaxis with Bactrim DS was given to the patient prior to the procedure. Procedure: The patient was placed on the procedure table in the supine position and prepped and draped in the usual sterile fashion. 2% Lidocaine Jelly was placed per urethra as an anesthetic in the standard fashion. Once adequate local anesthesia was achieved, the tip of the flexible cystoscope was carefully placed into the urethra under direct visual guidance. The scope was negotiated per urethra with no evidence of stricture into the bladder. The stent was grasped with endoscopic graspers and removed intact At the conclusion of the procedure, the flexible cystoscope was removed atraumatically. The patient tolerated the procedure without complications. Patient was given standard post-procedure instructions ASSESSMENT/PLAN: The patient has been instructed to return to the office in approximately 6 weeks for follow-up imaging, 24 hr urine metabolic studies if indicated. Noelle Vega MDGrover Memorial [id number] Nurse Note* Arlene Miguel Ma - 09/26/2022 2:58 PM EST UNIVERSAL PROTOCOL / SAFETY CHECKLIST Procedure to be Performed: stent extractor Sign In: A Moment of CARE was completed. Personnel directly involved with the procedure wore the appropriate PPE (Personal Protective Equipment). Special equipment: cystoscope & stent extractor Patient/Surrogate Stated/Verified: PATIENT VERIFIED(optional for EMERGENT procedures): Patient name, Date of , Relevant allergies, and The intended procedure Time Out Communication: Intended patient and procedure match the source documents. Consent documented and matches the intended procedure. Relevant labs, photos, and/or imaging studies have been reviewed. Correct side/site marked and visible. Medications required for procedure verified. Fire risk assessed and interventions discussed. No implant(s) inserted. Sign Out: SIGN OUT (optional for EMERGENT procedures): No specimen collected. All instruments, equipment, possible retained foreign bodies accounted for. Post-procedure follow-up management communicated and Plan of Care Visit completed when applicable. Arlene iMguel Ma PRE PROCEDURE ASSESSMENT- Cysto/Stent Extraction Procedure Indication: Stent Extraction Latex Allergy: No Allergies reviewed and updated. Yes Pre-Procedure Vital Signs: BP: 156/86 Pulse: 88 Heart valve replacement: No Joint replacement: No Back Office UA otained: yes PROCEDURE PREP-Cysto Patient ID with two(2)identifiers verified by: Arlene Miguel Ma Pre-Procedure Antibiotics: Bactrim DS 160mg-800mg orally, given during visit @ 1428 , by Arlene Miguel Ma Patient Prep: Betadine Scrub to perineum and placement of Sterile Drape. COMPLETED Anesthetic Given:10 cc 2% Lidocaine jelly and Administered by MD - see Procedure Physician Note. Arlene Miguel Ma UNIVERSAL PROTOCOL / SAFETY CHECKLIST Procedure to be performed: Stent Extraction Sign in Communication: Completed Time Out: Team Confirms the Correct Patient, Correct Procedure, Correct Site and Site Marking, Correct Position (if applicable). Sign Out Discussion: Completed Arlene Miguel Ma POST PROCEDURE NURSE ASSESSMENT Present along with physician during procedure exam. Arlene Miguel Ma Instruction sheet given and reviewed and patient verbalizes understanding: yes Post Procedure Antibiotic: none Current pain intensity is 0 on a 0-10 pain scale. 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 [facility] in [facility]The [facility] History of Present illness Narrative* Noelle Vega MD - 09/26/2022 2:14 PM EST CYSTOSCOPY WITH URETERAL STENT REMOVAL PROCEDURE NOTE: Dat Lopez is a 62 year old male who presents for cystoscopy and stent removal. 09/11/22 S/P LEFT PCNL, Ureteroscopy, laser lithotripsy with stent placement Stone analysis 70% COM and 20% COD Pt ID verified with patient: Yes Procedure verified with patient: Yes Procedure confirmed with physician and shipping support: Yes Sign In: History and Physical Exam reviewed and is unchanged. Primary Diagnosis: Nephrolithiasis Informed Consent Discussed: Yes Sign in Communication: Completed Time Out: Team Confirms the Correct Patient, Correct Procedure; Stent Extraction, Correct Site and Site Marking, Correct Position (if applicable). Affirmation of Time Out: YES Sign Out: Sign Out Discussion: Completed Physician: Noelle Vega MD The benefits, risks, alternatives of the cystoscopy procedure and personnel were discussed with thepatient. The verbal consent was obtained and the patient agrees to proceed. Prophylaxis with Bactrim DS was given to the patient prior to the procedure. Procedure: The patient was placed on the procedure table in the supine position and prepped and draped in the usual sterile fashion. 2% Lidocaine Jelly was placed per urethra as an anesthetic in the standard fashion. Once adequate local anesthesia was achieved, the tip of the flexible cystoscope was carefully placed into the urethra under direct visual guidance. The scope was negotiated per urethra with no evidence of stricture into the bladder. The stent was grasped with endoscopic graspers and removed intact At the conclusion of the procedure, the flexible cystoscope was removed atraumatically. The patienttolerated the procedure without complications. Patient was given standard post-procedure instructions ASSESSMENT/PLAN: The patient has been instructed to return to the office in approximately 6 weeks for follow-up imaging, 24 hr urine metabolic studies if indicated. Noelle Vega MD documented in this encounterThe [facility]10-25-[facility]22 NoteHNO ID: [id number] Author: Flor Sahu PA-C Service: Hospital Medicine Author Type: Physician Merchant Patroller Type: Plan of Care Filed: 09/12/2022 12:58 PM Note Text: Plan of Care: Patient assessed by medicine team this morning for concerns for hyperkalemia s/p stent placement. Repeat potassium on am labs improved to 4.7. Patient medically cleared for discharge. Would recommended follow up BMP on discharge if concern for recurrent hyperkalemia. SIGNATURE: Flor Sahu PA-C PATIENT NAME: Dat Lopez DATE: September 12, 2022 TIME: 12:57 [facility] [id number] NoteHNO ID: [id number] Author: GUERA Granados Service: Care Management Author Type: Neurology Nurse Type: Care Mgt Initial Assessment Filed: 09/12/2022 11:00 AM Note Text: 10:58 AM CARE MANAGEMENT: ASSESSMENT AND DISCHARGE PLAN SERVICE DATE: September 12, 2022 SERVICE TIME: 10:59 AM PRIMARY CARE PHYSICIAN: Sp Chowdary DO Primary Contact: Extended Emergency Contact Information Primary Emergency Contact: Svitlana Lopez [place] Mobile Relation: Spouse ADMISSION STATUS: Extended Recovery Insurance Provider: [facility] CHOICE PLUS NEEDS PRIOR TO DISCHARGE Needs Prior to Discharge: To Be Determined;Pharmacy Bedside Delivery;Discharge Transportation POTENTIAL TRANSITION PLANS Home Based on clinical judgement, Care Management will address the following needs: No transitional/discharge planning needs at this time Patient's perception of need for this admission: kidney stone ADVANCE DIRECTIVES Current Advance Directive: None Ax Survey Worker Attempted to Assist with AD Completion: Yes Action: Patient Unwilling MS/BEHAVIOR Baseline Mental Status Prior to this Illness what was the patient's Baseline Mental Status?: Alert AND Oriented Prior to this illness, has anyone described the patient having any of the following behaviors?: Not Applicable Relationship of the informant to the patient:: Self READMISSION Last Discharge Date: N/A Is this Within the Past 30 days? 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 scores in the EMR?: No Any potential risks related to substance abuse and/or behavioral health?: No Based on clinical judgement, Care Management will address the following needs: No transitional/discharge planning needs at this time CAREGIVER ASSESSMENT Caregiver is ready, willing and able to meet the patient's needs as recommended by the inter-professional team:: No Caregiver needed No medical discharge barriers identified at this time. No social discharge barriers identified at this time. No behavioral/cognitive discharge barriers identified at this time. No functional discharge barriers identified at this time. FREEDOM OF CHOICE EXPLAINED: [place] of Choice Given: No Reason Not Given: No placements necessary Are you interested in bedside delivery of your medications? Yes ASSESSMENT AND PLAN: Mr Lopez reports his will transport him home to [facility] at discharge. He has no anticipated transitional care needs for discharge. SIGNATURE: GUERA Granados PATIENT NAME: Dat Lopez DATE: September 12, 2022 TIME: 10:58 AM CONTACT #: [id number] [id number] NoteHNO ID: [id number] Author: Valdo Mcghee MD Service: Urology Author Type: Resident Type: Progress Notes Filed: 09/12/2022 10:45 AM Note Text: [facility] UROLOGY PROGRESS NOTE Name: Dta Lopez Bed: [id number] Date: 09/12/2022 ASSESSMENT AND PLAN Dat Lopez is a 62 year old male with PMHx of HLD, DM2, KUNAL, BPH, HTN, and nephrolithiasis now POD#1 s/p left miniPCNL w/ stent placement. Update: labs stable, hyperkalemia resolved. Urine cleared significantly w/ traction, can TOV now. Plan for d/c after w/o caputo catheter if patient is emptying well. Please document post void residual in the chart. Discussed w/ Dr. Vega. Valdo Mcghee MD PGY-5, Urology Pager: [phone] 10:45 AM 09/12/2022 Interval/daily plan: Doing well. Denies pain or discomfort. Has been ambulating. Urine bloody this morning, hold off on catheter removal for now, will consider later today if urine starts to clear. Follow up morning labs specifically potassium as patient was hyperkalemic yesterday evening. Plan for discharge later today. #Neuro - Pain control with PO/IV analgesia #CV/Resp - -HDS -Encourage IS #GI - -Diet: CC -Colace, Zofran # - -Scr: stable -UOP: Continue to monitor -Caputo: in place #Activity - OOB to chair and Ambulate with assistance. Stressed importance of getting out of bed #DVT prophylaxis - SCDs, no heparin SQ #ID/Antibiotics - Perioperative antibiotics - Ancef #Secondary Dx/Complications- See active problems below #Discharge teaching - routine #Disposition - d/c today, will check on urine again in later morning to determine with or without catheter. To be discussed with Dr. Vega. Valdo Mcghee MD PGY-5, Urology Pager: [phone] After 1800 and on weekends please page [phone] for assistance. SUBJECTIVE -Patient doing well -Pain: Controlled -N/V: No -Ambulating: Yes Objective Vital Signs BP 156/70 Pulse 84 Temp 36.5 ?C (97.7 ?F) (Oral) Resp 18 SpO2 97% There is no height or weight on file to calculate BMI. Input and Output Intake/Output Summary (Last 24 hours) at 09/12/2022 0644 Last data filed at 09/12/2022 0601 Gross per 24 hour Intake 5530 ml Output 2425 ml Net 3105 ml Urine output 2375cc bloody Drains NA Physical Exam General: Well-appearing, no acute distress CV: Warm and well perfused Lungs: No increased work of breathing on RA Abdomen: soft, non-tender, non-distended Wound: Incision clean, dry, and intact : Caputo catheter present and Urine bloody Extremities: Normal. No cyanosis, clubbing, or edema Recent Labs 09/12/22 0032 09/11/22 1957 09/11/22 1622 09/11/22 1147 WBC -- -- -- 7.34 HB -- -- -- 12.3* HCT -- -- -- 40.1 PLT -- -- -- 137* NA -- -- -- 136 K 4.9 5.7* 5.8* 5.7* CHLOR -- -- -- 105 CO2 -- -- -- 22 BUN -- -- -- 20 CREAT -- -- -- 1.67* GLUC -- -- -- 214* [facility]10-24-2022 NoteHNO ID: [id number] Author: Noelle Vega MD Service: Urology Author Type: Physician Type: Progress Notes Filed: 09/11/2022 4:25 PM Note Text: UROLOGY SERVICE POST OP NOTE PATIENT INFO: Dat Lopez 62 year old DATE: 09/11/2022 Interval History: Feels ok. Pain controlled. 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 Gross hematuria Nephrolithiasis POTS (postural orthostatic tachycardia syndrome) Exam: Patient Vitals for the past 8 hrs: BP Temp Temp src Pulse Resp SpO2 09/11/22 1551 129/58 36.8 ?C (98.2 ?F) Oral 77 18 92 % 09/11/22 1250 137/61 36.6 ?C (97.9 ?F) Axillary 72 17 96 % 09/11/22 1230 141/72 -- -- 63 -- 93 % 09/11/22 1220 147/69 -- -- 67 -- 95 % 09/11/22 1210 147/74 -- -- 69 -- 94 % 09/11/22 1200 144/78 -- -- 69 -- 93 % 09/11/22 1150 110/99 -- -- 68 16 96 % 09/11/22 1140 -- -- -- -- 16 -- 09/11/22 1131 155/75 36.2 ?C (97.1 ?F) Temporal 76 20 98 % Tmax: Temp (24hrs), Av.4 ?C (97.6 ?F), Min:36.2 ?C (97.1 ?F), Max:36.8 ?C (98.2 ?F) Intake/Output Summary (Last 24 hours) at 09/11/2022 1619 Last data filed at 09/11/2022 1551 Gross per 24 hour Intake 2980 ml Output 625 ml Net 2355 ml General: NAD. Well-appearing, Cardiac: RR, Hemodynamically stable Pulm: non labored on RA Abdomen: Soft, non distended : Caputo catheter present and draining clear red urine. Extremities: No edema. Symmetric. SCDs on Labs: Recent Labs 09/11/22 1147 WBC 7.34 HB 12.3* HCT 40.1 PLT 137* NA 136 K 5.7* CHLOR 105 CO2 22 BUN 20 CREAT 1.67* GLUC 214* Current Facility-Administered Medications Medication Dose Route Frequency gabapentin 100 mg cap(s) (NEURONTIN) 100 mg ORAL TID pravastatin 40 mg tab(s) (PRAVACHOL) 40 mg ORAL DAILY losartan 100 mg tab(s) (COZAAR) 100 mg ORAL DAILY [START ON 09/12/2022] metoprolol succinate ER 50 mg tab(s) (TOPROL XL) 50 mg ORAL DAILY [START ON 09/12/2022] amLODIPine 5 mg tab(s) (NORVASC) 5 mg ORAL DAILY sertraline 100 mg tab(s) (ZOLOFT) 100 mg ORAL DAILY sodium chloride 0.9 % (flush) 3-5 mL (BD POSIFLUSH) 3-5 mL INTRAVENOUS q 12 H NaCl 0.9% iv flush bag 20 mL INTRAVENOUS PRN acetaminophen 650 mg tab(s) (TYLENOL) 650 mg ORAL q 4 H PRN HYDROmorphone 0.2 mg injection (DILAUDID) 0.2 mg INTRAVENOUS q 2 H PRN ondansetron (PF) 4 mg injection (ZOFRAN) 4 mg INTRAVENOUS q 6 H PRN docusate sodium 100 mg cap(s) (COLACE) 100 mg ORAL BID ceFAZolin iv piggyback 1 g in D5W (iso-osmotic) 50 mL (ANCEF) 1 g INTRAVENOUS q 8 H keTORolac 30 mg injection (TORADOL) 30 mg INTRAVENOUS q 6 H oxyCODONE IR 5 mg tab(s) (ROXICODONE) 5 mg ORAL q 6 H PRN dextrose 15 gram/32 mL 15 g (TRUEPLUS) 15 g ORAL PRN Or glucagon 1 mg injection 1 mg INTRAMUSCULAR PRN Or dextrose 10% iv bolus 12.5 g INTRAVENOUS PRN insulin lispro injection (rapid acting) (ADMELOG) SUBCUTANEOUS w MEALS insulin lispro injection (rapid acting) (ADMELOG) SUBCUTANEOUS AT BEDTIME NaCl 0.9% iv infusion 100 mL/hr INTRAVENOUS CONTINUOUS phenol 1 [place] (CHLORASEPTIC) 1 [place] MUCOUS MEMBRANE (TOPICAL MOUTH AND THROAT) q 2 H PRN Imaging: CXR Cardiomediastinal silhouette is normal. Bibasilar atelectasis left greater than right. No pleural effusion or pneumothorax. Pulmonary vasculature is unremarkable Imp/Plan: 62 year old POD# 0 s/p left mini PCNL and ureteroscopy with stent placement - CV: HDS, acute post surgical blood loss anemia/ Will monitor - Renal: Good UOP. SCr stable. Will monitor. - Pulm: ISS, ambulate - GI: Diet - GI Soft/regular diet, bowel regimen - : maintain caputo until AM. If urine clearer ok for TOV. And PVR. If PVR is elevated, reinsert coude catheter and discharge with catheter - Activity - Ambulate with assistance - DVT prophylaxis - SCDs, Pharmacologic DVT prophylaxis contraindicated due to bleeding risk - Antibiotics - Perioperative antibiotics - Ancef - Secondary Dx and Complications - HTN - cw/ home meds - HLD - c/w home meds - T2DM - insulin while inpatient - POTS - monitor - KUNAL - home regimen. - Ehrupa's Danlos - careful movement - Discharge teaching - routine teaching - hyperkalemia - repeat potassium and change IVF to NS from LR - elevated SCr - monitor - Disposition - Home pending clinical course and anticipate tomorrow Disease Specificity: Acuity: Acute Anatomic Site: Kidney, Laterality: Left Underlying Condition/Causal Agent: Primary Associated Conditions/Manifestations: N/A Signature: Noelle Vega MD Urology Staff September 11, 2022 4:19 PM PLEASE CONTACT OPERATIONS SCHEDULER OVERNIGHT IF ANY QUESTIONSJordan [facility] [id number] NoteHNO ID: [id number] Author: RT Anisha(Sil) Service: Radiology Author Type: Technologist Type: Progress Notes Filed: 09/11/2022 11:55 AM Note Text: Radiology Service Progress Note PATIENT NAME: Dat Lopez DATE OF SERVICE: September 11, 2022 TIME: 11:55 AM PATIENT IDENTITY VERIFICATION COMPLETED USING TWO (2) IDENTIFIERS: Name and Date of confirmed by patient verbally and Name and Date of confirmed by identification band. FALL SCREENING: Has the patient had 2 falls in the last year or 1 fall with injury or currently using an Ambulatory Assistive Device (Walker, Cane, Wheelchair, Crutches, etc.)? Inpatient: Screened on floor PATIENT GENDER DATA: Male PATIENT RELEVANT IMPLANT DATA REVIEWED: Not Applicable RADIOLOGY DEPARTMENT: General X-ray: Exam(s) Completed: Chest X-Ray PERIPHERAL IV DATA: Not applicable SIGNED BY: MICHELLE Lancaster) September 11, 2022 11:55 [id number] NoteHNO ID: [id number] Author: Caroline Larios APRN.AIRPORT SCREENER Service: ? Author Type: Nurse Circuit Board Repair Technician Type: Anesthesia Procedure Notes Filed: 09/11/2022 7:58 AM Note Text: ANESTHESIOLOGY PROCEDURE NOTE Airway General Information Procedure Start Time/Medication Administration: 09/11/2022 7:40 AM Patient location during procedure: OR Staffing Anesthesiologist: Melisa Rangel MD AIRPORT SCREENER: Caroline Larios APRN.AIRPORT SCREENER Performed by: AIRPORT SCREENER Indications and Patient Condition Indications for airway management: anesthesia Preoxygenated: yes anesthesia circuit Patient position: sniffing Method: asleep Difficult Mask: No Airway Accessory: oral airway Final Airway Details Final airway type: endotracheal airway Final Endotracheal Airway: ETT Cuffed: yes Successful intubation technique: video laryngoscopy Devices used: Kypha Endotracheal tube insertion site: oral Blade size: #4 ETT size (mm): 7.5 Measured from: lips Measurement (cm): 22 Placement verified by: chest auscultation and capnometry Cormack-Lehane Classification: grade I - full view of glottis Number of attempts at approach: 1 Airway not difficult SIGNATURE: Caroline Larios APRN.AIRPORT SCREENER PATIENT NAME: Dat Lopez DATE: September 11, 2022 TIME: 7:57 AM CSN: [id number] NoteHNO ID: [id number] Author: ANASTASIIA Rodriguez Service: Radiology Author Type: Technologist Type: Progress Notes Filed: 08/28/2022 7:11 AM Note Text: Radiology Service Progress Note PATIENT NAME: Dat Lopez DATE OF SERVICE: August 28, 2022 TIME: 7:11 AM PATIENT IDENTITY VERIFICATION COMPLETED USING TWO (2) IDENTIFIERS: Name and Date of confirmed by patient verbally. FALL SCREENING: Has the patient had 2 falls in the last year or 1 fall with injury or currently using an Ambulatory Assistive Device (Walker, Cane, Wheelchair, Crutches, etc.)? No PATIENT GENDER DATA: Male PATIENT RELEVANT IMPLANT DATA REVIEWED: Not Applicable RADIOLOGY DEPARTMENT: CT; Exam(s) Completed: Abdomen/Pelvis PERIPHERAL IV DATA: Not applicable SIGNED BY: ANASTASIIA RODRIGUEZ August 28, 2022 7:11 AMJordan Valley Medical Center [facility] Valley [id number] History and physical note* Mechelle Burnett PA-C - 08/28/2022 8:42 AM EDT Images from the original note were not included. HISTORY AND PHYSICAL EXAMINATION SERVICE DATE: 08/28/2022 SERVICE TIME: 9:10 AM PRIMARY CARE PHYSICIAN: No primary care provider on file. REASON FOR VISIT: Dat Lopez is a 62 year old male who is scheduled for LEFT percutaneous nephrolithotomy at the request of Dr. Noelle Vega for consultation. My final recommendation will be communicated back to the requesting physician by way of shared medical record or letter. The patient has the following: ACTIVE PROBLEM LIST Bladder Cancer (Hcc) Hypertension Hyperlipidemia Type 2 Diabetes Mellitus Without Complication, With Long-Term Current Use of Insulin (Hcc) Pots (Postural Orthostatic Tachycardia Syndrome) Kunal (Obstructive Sleep Apnea) Bmi 34.0-34.9,Adult Subjective CHIEF COMPLAINT: Nephrolithiasis HPI: Patient is a 62 year old male presenting to pre-anesthesia consultation. Patient fell in March 2022. Afterwards he noticed hematuria. After further work-up it was found he had many left kidney stones. He has undergone multiple lithotripsies and laser procedures. He continues to have hematuria, but denies any dysuria or increased frequency. He has a history of right kidney stones in 2003 which required lithotripsy, but has not had any issues until now. He has been diagnosed with nephrolithiasis and has been recommended for the above surgery. 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 Gross hematuria Nephrolithiasis POTS (postural orthostatic tachycardia syndrome) PAST SURGICAL HISTORY Procedure Laterality Date COLONOSCOPY SCREENING x2 CT CRYOABLATION BONE TUMOR Right 2001 rigth femur CYSTOSCOPY,URETEROSCOPY,LITHOTRIPSY Left multiple in 2021 CYSTOSCOPY,URETEROSCOPY,LITHOTRIPSY Right 2003 ESWL Left PAST SURGICAL HISTORY OF Left multiple ankle surgeries FAMILY HISTORY Problem Relation Age of Onset Ovarian cancer Mother Diabetes Mother Prostate Cancer Father other (atrial fibrillation) Father Breast Cancer Sister SOCIAL HISTORY: Social History Tobacco Use Smoking status: Never Passive exposure: Past Smokeless tobacco: Never Substance Use Topics Alcohol use: Not Currently Drug use: Never MEDICATIONS: Prior to Admission medications as of 08/28/22 2087 Medication Sig Last Dose Taking metFORMIN (GLUCOPHAGE) 1,000 mg tablet Take 1,000 mg by mouth twice daily. Taking Yes pravastatin (PRAVACHOL) 40 mg tablet Take 40 mg by mouth once daily. Taking Yes metoprolol succinate ER (TOPROL XL) 50 mg 24 hr tablet Take 50 mg by mouth once daily. Taking Yes amlodipine besylate (AMLODIPINE ORAL) Take 5 mg by mouth. Taking Yes gabapentin (NEURONTIN) 100 mg capsule Take 100 mg by mouth three times daily. Taking Yes sertraline (ZOLOFT) 100 mg tablet Take 100 mg by mouth once daily. Taking Yes losartan (COZAAR) 100 mg tablet Take 100 mg by mouth once daily. Taking Yes insulin glargine (LANTUS SOLOSTAR, BASAGLAR KWIKPEN) 100 unit/mL (3 mL) Basaglar KwikPen U-100 Insulin 100 unit/mL (3 mL) subcutaneous INJECT 55 UNITS SUBCUTANEOUSLY ONCE A DAY Taking Yes BASAGLAR KWIKPEN U-100 INSULIN 100 unit/mL (3 mL) INJECT 50 UNITS SUBCUTANEOUSLY ONCE A DAY Taking Yes Tadalafil 5 mg tablet Take 10 mg by mouth once daily. Taking Differently Yes coenzyme Q10 (COENZYME Q-10) 100 mg cap capsule Take 100 mg by mouth once daily. Taking Yes multivitamin (MULTI-DAY ORAL) Take by mouth. Taking Yes melatonin 10 mg tab Take 20 mg by mouth. Taking Yes No medication comments found. CURRENT ALLERGIES: ALLERGIES Allergen Reactions Actose [Pioglitazon* Swelling Petechiae [place] [Exenatide] Vomiting Valium [Diazepam] GI Upset COVID VACCINATION STATUS: Fully vaccinated REVIEW OF SYSTEMS: PAIN ASSESSMENT: General: No weight loss, malaise or fevers. Neuro: No history of TIA's, stroke, DRIER tumor, impaired sensorium, hemiplegia, paraplegia or quadraplegia. No neurological symptoms or problems. Respiratory: No history of current cough or dyspnea, or pneumonia in the past 6 weeks. No history of respiratory/pulmonary symptoms or problems. Cardiovascular: +HTN, HLD, POTS- no recent episodes Negative for Recent NC, Angina, Chest Pain, CHF, DVT/PE GI: No history of GI symptoms or problems. No history of esophageal varices, recent ascites, or ETOH greater than 2 drinks per day. : +BPH See HPI Endocrine: +DMII Denies any history of other endocrine symptoms/problems. Hematology: No history of bleeding or clotting disorder. Pt is not taking anti- coagulation or platelet medications. No history of hematological symptoms or problems. Oncology: +bladder cancer- no chemo or radiation Psych: No history of psychiatric symptoms or problems. Musculoskeletal: +knee, hip, and back pain. Hx of Ehler's Danlos syndrome Skin: Negative for lesions, rash and itching. Objective PHYSICAL EXAM: VITALS: BP 152/84 Pulse 72 Temp (Src) 98.5 (Oral) Resp 16 Ht 5' 9 (1.75m) Wt 232 lb (105.2kg) SpO2 98% BMI 34.24 kg/(m^2). General: Alert and oriented Skin: Normal color, no rash, no lesions. HEENT: EOM, pupils equal, round and reactive. Cardiovascular: Normal S1 & S2, no rubs, murmurs or gallops. No JVD. Pulse regular. Lungs: Normal breath sounds, no wheezes or crackles. Abdomen: Soft, non-tender, no rigidity. Extremities: No deformity, no edema or tenderness, no joint swelling or clubbing. Neurological: Normal cognition and motor skills. Pulses: Carotid and radial pulses normal +2. Diagnostic tests reviewed for today's visit: Lab Value Units Date High Low HB 13.0 g/dL 08/28/2022 17.0 13.0 HCT 40.0 % 08/28/2022 51.0 39.0 WBC 7.06 k/uL 08/28/2022 11.00 3.70 PLT 169 k/uL 08/28/2022 400 150 NA 140 mmol/L 08/28/2022 144 136 K 4.7 mmol/L 08/28/2022 5.1 3.7 GLUC 158 mg/dL 08/28/2022 99 74 BUN 23 mg/dL 08/28/2022 24 9 CREAT 1.22 mg/dL 08/28/2022 1.22 0.73 PTSEC 10.3 sec 08/28/2022 13.0 9.7 INR 1.0 no uni* 08/28/2022 1.3 0.9 APTT 27.0 sec 08/28/2022 32.4 23.0 ALT 17 U/L 08/28/2022 54 10 AST 20 U/L 08/28/2022 40 14 TBILI 0.2 mg/dL 08/28/2022 1.3 0.2 TSH No results within date range. Lab Value Units Date High Low HCGQT No results within date range. UHCG No results within date range. HCG, BODY* No results within date range. Lab Value Units Date High Low ABORHD No results within date range. ABSCREEN No results within date range. No results found for: HBA1C EKG- 05/04/22- Scanned into Epic Assessment/Plan 1. Pre-op evaluation - CONFIRM BLOOD TYPE; Future - HGB A1C; Future 2. Hypertension, unspecified type 3. POTS (postural orthostatic tachycardia syndrome) BP 152/84. Taking metoprolol (Toprol), amlodipine (Norvasc), and losartan (Cozaar). Denies any CP, dizziness, double vision, or REID. Last POTS episode was years ago. PCP monitoring. 4. Hyperlipidemia, unspecified hyperlipidemia type Taking pravastatin (Pravachol) 5. Type 2 diabetes mellitus without complication, with long-term current use of insulin (HCC) Taking Metformin and Lantus insulin. Fasting BS run in the 130s patient states. Will get A1c today. - HGB A1C; Future 6. Malignant neoplasm of urinary bladder, unspecified site (HCC) S/p surgical resection of tumor during his lithotripsy surgery in 2003. No chemo or radiation. 7. KUNAL (obstructive sleep apnea) Non-compliant with CPAP 8. BMI 34.0-34.9,adult BMI 34.26 METS: Uses cane for ambulation due to imbalance Climb a flight of stairs or walk up a hill (5.50 METs) Patient denies any chest pain or undue shortness of breath with the above physical activity. ASA Class: 3 ANESTHESIA FINDINGS: Intubation History: No history of difficult intubation Significant Anesthesia Considerations: Post op nausea and vomiting with Valium Airway Exam: General: Normal appearance; obese; robin and mustache Mallampati Score is CLASS II ULBT: Class I - Lower incisors can bite the upper lip above the nola line Neck: Normal appearance and function, Distance from hyoid to mentum during neck extension is at least 3 finger breaths Mouth: Large tongue size and Mouth opening greater than 2 finger breaths Dentition: Upper Partial Airway History: No abnormal airway history STOP BANG Score: KUNAL does not use CPAP/BiPAP PLAN This patient is optimally prepared for surgery pending LABS. CONSULTS: Patient does not require consults for optimization at this time. The Following Tests/Procedures Have Been Initiated: Orders Placed This Encounter HGB A1C Standing Status: Future Number of Occurrences: 1 Standing Expiration Date: 10/28/2022 Confirm Blood Type Standing Status: Future Number of Occurrences: 1 Standing Expiration Date: 10/28/2022 Order Specific Question: Did Blood Bank direct you to place this order: Answer: No - Presurgical Workflow, EKG not indicated per [facility] protocol CBC, CMP, PTH, Vit D, PT, PTT, T&S, urine cx ordered by surgeon Planned Anesthetic: General Instructions Given to Patient: Instructions located in the after visit summary. Patient given verbal and written preop instructions and voices comprehension and compliance. SIGNATURE: Mechelle Burnett PA-C PATIENT NAME: Dat Lopez DATE: August 28, 2022 TIME: 9:57 AM documented in this encounterThe [facility]10-10-[facility]22 History of Present illness Narrative* ANASTASIIA Rodriguez - 08/28/2022 7:15 AM EDT Radiology Service Progress Note PATIENT NAME: Dat Lopez DATE OF SERVICE: August 28, 2022 TIME: 7:11 AM PATIENT IDENTITY VERIFICATION COMPLETED USING TWO (2) IDENTIFIERS: Name and Date of confirmedby patient verbally. FALL SCREENING: Has the patient had 2 falls in the last year or 1 fall with injury or currently using an Ambulatory Assistive Device (Walker, Cane, Wheelchair, Crutches, etc.)? No PATIENT GENDER DATA: Male PATIENT RELEVANT IMPLANT DATA REVIEWED: Not Applicable RADIOLOGY DEPARTMENT: CT; Exam(s) Completed: Abdomen/Pelvis PERIPHERAL IV DATA: Not applicable SIGNED BY: ANASTASIIA RODRIGUEZ August 28, 2022 7:11 AM documented in this encounterThe [facility]10-07-2022 Miscellaneous Notes* Telephone Encounter - Eddie Freed [facility] - 08/25/2022 4:35 PM EDT Patient scheduled for [facility] on 09/[facility] at [facility] for PERCUTANEOUS NEPHROLITHOTOMY [2747] - Kidney - Left. Patient will be informed of surgery time the day before surgery between 1pm-4pm. PAT is scheduled for 08/28. Was Urine Culture ordered or done: Yes Does patient have catheter or nephrostomy tube:No If yes was Urology nurse appointment made: No Was lab appointment made: Yes: Date: 08/28/22 Date range patient was told to go to lab: NA Preop instructions provided. Patient verbalized understanding. * Telephone Encounter - Eddie Madrigal - 08/24/2022 3:52 PM EDT Called patient to review preop appts and instructions. Unable to leave message, no vm available. documented in this encounterThe [facility]10-06-2022 Instructions* Patient Instructions* Mechelle Burnett PA-C - 08/24/2022 12:52 PM EDT PATIENT PREOPERATIVE INSTRUCTIONS Noelle Vega MD has scheduled you for your procedure at this surgery center: [facility]: [phone] --[id number] [place] [address]. Please enter through the entrance closest to [facility]. - Your surgeon ordered lab work which should be completed today from Arrival Time for Surgery: - The Surgery Center or hospital where you are having surgery will call the afternoon before surgery (or Sunday for Sunday surgery) with a scheduled arrival time. - If you have not heard by 4 pm, please contact the surgery center above. Please be aware that emergency situations arise, which may delay or change your surgical time. If this happens, we will notify you as soon as possible and regret any inconvenience. Please read below carefully for your personalized instructions. Dietary Restrictions: - No solid food after midnight. - You may have 12 ounces of clear liquids (water, clear juices such as apple juice or gatorade, carbonated beverages, clear tea, black coffee, jello) until 2 hours before scheduled arrival at facility. Medications: Unless instructed differently below, stay on all of your medications until your surgery. Approved medications to take the morning of surgery with a sip of water: pravastatin (Pravachol), metoprolol (Toprol), amlodipine (Norvasc), Gabapentin (Neurontin), Sertraline (Zoloft) DO NOT TAKE YOUR losartan (Cozaar) THE NIGHT BEFORE OR MORNING OF SURGERY - Accucheck day of surgery. - Take full dose of insulin the day before surgery. - Take half dose of long acting insulin (Lantus, NPH) the day of surgery. If you take any medications for erectile dysfunction-Cialis (Tadalafil), Levitra, Staxyn (Vardenafil) Viagra (Sildenenafil please do not take these for 48 hours before surgery. If you start any new medications after today's visit, please contact the surgeon's office. Blood Thinning Medications: - Stop NSAIDS (Ibuprofen, Advil, Aleve, Motrin, Celebrex, Mobic, etc.) 7 days before surgery, as directed by your surgeon. - Stop Aspirin 7 days before surgery, as directed by your surgeon. - Stop Vitamin E, ALL multi-vitamins, herbals and dietary supplements 7 days before surgery. - You may take Tylenol (Acetaminophen) or any of your pain medications that do not contain aspirin or NSAIDS as needed. Important Reminders: - Candy, mints, and tobacco products are NOT permitted the morning of surgery. - Hearing aids, dentures and glasses may be worn the morning of surgery. - NO jewelry, body piercings, makeup, hairpins or contacts are to be worn the day of surgery. If you develop symptoms such as a fever, cold, or flu, or have other changes to your health within TWO DAYS of scheduled surgery or the morning of surgery, please contact the surgery center above. Personal Belongings: -Please have photo ID and insurance cards. -If you do not have a copy of advance directives on file with us, please bring a copy with you on the day of surgery. - Leave ALL valuables and money at home or with family members. For Outpatient Procedures: - YOU MUST HAVE A RESPONSIBLE LOGISTICS PLANNING MANAGER TAKE YOU HOME. A FIRE BEHAVIOR ANALYST OR AMPOULE EXAMINER CANNOT BE MADE A RESPONSIBLE LOGISTICS PLANNING MANAGER. - We recommend that a responsible person stays with you overnight to take care of you. - You cannot stay in a hotel alone after outpatient surgery. You will not be permitted to have yoursurgery, if you do not have someone to take care of you. If you already have an Advance Directive, please fax a copy to [phone] or email to for it to be added to your chart. If you do not have an Advance Directive, you can find the appropriate form and more information at [email or web address]. We recommend that youcomplete the Advance Directive form found on the website and bring it with you the day of your surgery. It can be witnessed and scanned into your chart that day. Mechelle Burnett PA-C documented in this encounterThe [facility]09-28-2022 Miscellaneous Notes* Telephone Encounter - Bienvenido Del Cid Ma - 08/16/2022 5:19 PM EDT Images from cd have been uploaded into patient's chart. I spoke with patient and he does not need the cd back. I am putting it in the admin office to be destroyed. documented in this encounterThe [facility] Of [facility]09-23-2022 NoteHNO ID: [id number] Author: Noelle Vega MD Service: ? Author Type: Physician Type: Progress Notes Filed: 08/11/2022 11:28 AM Note Text: [facility] NEW PATIENT HISTORY AND PHYSICAL EXAM PATIENT INFO: Dat Lopez 62 year old REFERRING M.D.: Pelon Coles [address] [place] [address] PCP: No primary care provider on file. Date of Service: August 11, [address] Lee for an opinion regarding kidney stones and my final recommendations will be communicated back to the requesting physician by way of shared Medical record or letter via US mail. CHIEF COMPLAINT: Nephrolithiasis HPI: This is a 62 year old male BPH with LUTS s/p Rezum, prostate nodule, ED, gross hematuria, bladder cancer, T1HG in 2007. . Patient describes falling on his deck in March 2022. Developed tea colored urine. CT was ordered and demonstrated Left NL, multiple stones. ESWL was performed. [facility]. Then URS x 2 and ureteral stent placement. Last procedure and stent placement was in June. Outside CT A/P 07/20/22 demonstrates left NL. KUB 07/20/22, left stones visible on KUB. Left double J stent in place. MRI prostate 07/20/22, not concerning for malignancy. PSA in 2017: 7.62 The patient denies flank pain, fever, shaking chills, gross hematuria, urgency, frequency, dysuria, incontinence, nausea, vomiting, and pain at this time. Passing stone fragments. Unknown if they were analyzed. 1-Duration: 2021 2-Location: urine, kidney 3-Severity: N/A 4-Quality: NA 5-Context: Imaging 6-Timing: intermittently 7-Modifying factors: No treatment prior to referral Hx of Rezum. 8-Associated signs AND symptoms: no additional symptoms LUTS: No Dysuria:No Gross Hematuria: occasional Frequency:No Nocturnal Frequency 1 x/ night Urgency:No Personal or family hx of malignancy. Father with prostate ca. Patient with bladder Ca. Personal hx of stones: yes, prior right NL Family Hx of stones: no. PATHOLOGY: Stone Analysis: none to review Urine Culture None to review LABS: No results found for: CREAT No results found for: PSA URINALYSIS: No results found for: PH, SPGR, UGLUC, UBILI, UKET, UHB, UPROT, UROBIL, NITRITES, UWBC, SSA IMAGING: Imaging Reviewed. Radiology report may be copied below for ease of reference. 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 pravastatin (PRAVACHOL) 40 mg tablet Take 40 mg by mouth once daily. metoprolol succinate ER (TOPROL XL) 50 mg 24 hr tablet Take 50 mg by mouth once daily. amlodipine besylate (AMLODIPINE ORAL) Take 5 mg by mouth. gabapentin (NEURONTIN) 100 mg capsule Take 100 mg by mouth three times daily. sertraline (ZOLOFT) 100 mg tablet Take 100 mg by mouth once daily. losartan (COZAAR) 100 mg tablet Take 100 mg by mouth once daily. insulin glargine (LANTUS SOLOSTAR, BASAGLAR KWIKPEN) 100 unit/mL (3 mL) Basaglar KwikPen U-100 Insulin 100 unit/mL (3 mL) subcutaneous INJECT 55 UNITS SUBCUTANEOUSLY ONCE A DAY BASAGLAR KWIKPEN U-100 INSULIN 100 unit/mL (3 mL) INJECT 50 UNITS SUBCUTANEOUSLY ONCE A DAY Tadalafil 5 mg tablet Take 1 tablet by mouth once daily. coenzyme Q10 (COENZYME Q-10) 100 mg cap capsule Take 100 mg by mouth once daily. multivitamin (MULTI-DAY ORAL) Take by mouth. melatonin 10 mg tab Take 20 mg by mouth. No current facility-administered medications for this visit. REVIEW OF SYSTEMS General: No weight loss, malaise or fevers., SEE HPI ENMT: No earaches, No hearing loss, No nose, sinus problems or snoring, No dry mouth, mouth ulcers or sore throat, No thrush Endocrine: (DM, thyroid) - b Eyes: Not Significant Respiratory: Negative for cough, wheezing or shortness of breath. Cardiovascular: Negative for chest pain, leg swelling or palpitations. Anticoagulation meds - No Gastrointestinal: Negative for abdominal discomfort, blood in stools or black stools or change in bowel habits Bowel surgery No, IBS No Genitourinary: see HPI Musculoskeletal: Negative for joint pain or swelling, back pain or muscle pain. History of gout No Skin: Negative for lesions, rash, and itching. Neuro: No history of headaches, syncope (more content not included)...[facility]09-23-2022 Instructions* Patient Instructions* Noelle Vega MD - 08/11/2022 11:28 AM EDT Images from the original note were not included. Percutaneous Nephrolithotomy (PCNL) is the best treatment for large stones in the kidney. General anesthesia is needed to do a PCNL. PCNL involves making a half-inch incision (cut) in the back or side, just large enough to allow a rigid telescope (nephroscope) to be passed into the hollow center part of the kidney where the stone is located. Ultrasound lithotripsy is the most common technology utilized to fragment the stones. An instrument passes through the nephroscope breaks up the stone and suctions out the pieces. The ability to suction pieces makes PCNL the best treatment choice for large stones. The procedure is typically a ONE-day inpatient procedure. The PCNL procedure requires general anesthesia and takes approximately 3 hours. Patients are transferred to the logan after awakeningin the recovery room. A ureteral stent is typically placed during the procedure to prevent post operative flank pain. Youwill return to the clinic after about 7 days for suture and stent removal. Alternatively, a tube can be left in the kidney to drain urine into a bag outside of the body. This will allow for drainage of urine and stop any bleeding. The tube is left in overnight or for a few days. Post operative pain is variable and oral medications along with antibiotics will be given prior to discharge. Post-operative pain usually disappears in two weeks. Patients can usually return to work after the back suture is removed. ---A ureteral stent is a temporary, small plastic tube that is placed in your ureter that helps drain urine from your kidney into your bladder by a urologist. A stent may be placed to help unblock your kidney if a stone or obstruction is present. Here is a video with more information on ureteral stents: https://youtu.be/[email or web address] Video on PCNL: [email or web address] If you have any additional questions regarding this procedure, please reach out to our team. Warm regards, Your [facility] documented in this encounterThe [facility]09-23-2022 History of Present illness Narrative* Noelle Vega MD - 08/11/2022 11:00 AM EDT Images from the original note were not included. [facility] NEW PATIENT HISTORY AND PHYSICAL EXAM PATIENT INFO: Dat Lopez 62 year old REFERRING M.D.: Pelon Coles [address] [place] [address] PCP: No primary care provider on file. Date of Service: August 11, [address] Lee for an opinion regarding kidney stones and my final recommendations will be communicated back to the requesting physician by way of shared Medical record or lettervia US mail. CHIEF COMPLAINT: Nephrolithiasis HPI: This is a 62 year old male BPH with LUTS s/p Rezum, prostate nodule, ED, gross hematuria, bladder cancer, T1HG in 2007. . Patient describes falling on his deck in March 2022. Developed tea colored urine. CT was ordered and demonstrated Left NL, multiple stones. ESWL was performed. [facility]. Then URS x 2 and ureteral stent placement. Last procedure and stent placement was in June. Outside CT A/P 07/20/22 demonstrates left NL. KUB 07/20/22, left stones visible on KUB. Left double J stent in place. MRI prostate 07/20/22, not concerning for malignancy. PSA in 2017: 7.62 The patient denies flank pain, fever, shaking chills, gross hematuria, urgency, frequency, dysuria,incontinence, nausea, vomiting, and pain at this time. Passing stone fragments. Unknown if they were analyzed. 1-Duration: 2021 2-Location: urine, kidney 3-Severity: N/A 4-Quality: NA 5-Context: Imaging 6-Timing: intermittently 7-Modifying factors: No treatment prior to referral Hx of Rezum. 8-Associated signs & symptoms: no additional symptoms LUTS: No Dysuria:No Gross Hematuria: occasional Frequency:No Nocturnal Frequency 1 x/ night Urgency:No Personal or family hx of malignancy. Father with prostate ca. Patient with bladder Ca. Personal hx of stones: yes, prior right NL Family Hx of stones: no. PATHOLOGY: Stone Analysis: none to review Urine Culture None to review LABS: No results found for: CREAT No results found for: PSA URINALYSIS: No results found for: PH, SPGR, UGLUC, UBILI, UKET, UHB, UPROT, UROBIL, NITRITES, UWBC, SSA IMAGING: Imaging Reviewed. Radiology report may be copied below for ease of reference. 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 pravastatin (PRAVACHOL) 40 mg tablet Take 40 mg by mouth once daily. metoprolol succinate ER (TOPROL XL) 50 mg 24 hr tablet Take 50 mg by mouth once daily. amlodipine besylate (AMLODIPINE ORAL) Take 5 mg by mouth. gabapentin (NEURONTIN) 100 mg capsule Take 100 mg by mouth three times daily. sertraline (ZOLOFT) 100 mg tablet Take 100 mg by mouth once daily. losartan (COZAAR) 100 mg tablet Take 100 mg by mouth once daily. insulin glargine (LANTUS SOLOSTAR, BASAGLAR KWIKPEN) 100 unit/mL (3 mL) Basaglar KwikPen U-100 Insulin 100 unit/mL (3 mL) subcutaneous INJECT 55 UNITS SUBCUTANEOUSLY ONCE A DAY BASAGLAR KWIKPEN U-100 INSULIN 100 unit/mL (3 mL) INJECT 50 UNITS SUBCUTANEOUSLY ONCE A DAY Tadalafil 5 mg tablet Take 1 tablet by mouth once daily. coenzyme Q10 (COENZYME Q-10) 100 mg cap capsule Take 100 mg by mouth once daily. multivitamin (MULTI-DAY ORAL) Take by mouth. melatonin 10 mg tab Take 20 mg by mouth. No current facility-administered medications for this visit. REVIEW OF SYSTEMS General: No weight loss, malaise or fevers., SEE HPI ENMT: No earaches, No hearing loss, No nose, sinus problems or snoring, No dry mouth, mouth ulcers or sore throat, No thrush Endocrine: (DM, thyroid) - b Eyes: Not Significant Respiratory: Negative for cough, wheezing or shortness of breath. Cardiovascular: Negative for chest pain, leg swelling or palpitations. Anticoagulation meds - No Gastrointestinal: Negative for abdominal discomfort, blood in stools or black stools or change in bowel habits Bowel surgery No, IBS No Genitourinary: see HPI Musculoskeletal: Negative for joint pain or swelling, back pain or muscle pain. History of gout No Skin: Negative for lesions, rash, and itching. Neuro: No history of headaches, syncope, paralysis, seizures or tremors History of CVA -No The remainder of the ROS was reviewed and was negative. PHYSICAL EXAMINATION BP 176/89 Pulse 66 Wt 99.8 kg (220 lb) There is no height or weight on file to calculate BMI. General: No acute distress Eyes: Eyes: Scleral icterus - No, Skin: No obvious suspicious rashes or lesions. Back: No CVA tenderness to palpation/percussion. Visible Spinal anomaly -No ENMT: no masses, lesions. Lymphatic: Neck supple, no lymphadenopathy. Cardiovascular: No Cyanosis, No edema. Respiratory: Non labored breathing, no cough, no use of accessory muscles. Gastrointestinal: Abdomen is Non-distended, soft, nontender. 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 Neurologic: Normal gait. Sensation grossly intact. Alert and Oriented Genitourinary: MALE EXAM: Exam NOT Indicated PROBLEMS & PLAN: 1. Screening for genitourinary condition - ICD9: V81.6, ICD10: Z13.89 (primary diagnosis) 2. Calculus of kidney with calculus of ureter - ICD9: 592.0, 592.1, ICD10: N20.2 3. Staghorn calculus - ICD9: 592.0, ICD10: N20.0 Has a complicated stone history on the left s/p ESWL and URS x 2 with continued stone burden, numerous fragments and ureteral stent placement Needs preop CT since he has had URS since the last CT on Jul 20 Has Ehler's Danlos and enchrondroma of the bone as well as POTS. Would need cardiac clearance and will need post op 24 hour urine test. The bone tumor while benign may be driving excess urinary calcium and stone formation. Hx of BPH s/p Rezum and is asymptomatic Hx of bladder cancer - T1 in 2007 and recurrence free- continue with surveillance. Discussed with the patient possible treatment options for kidney stones. ESWL: Benefits: least invasive, Drawbacks: may need more than one procedure for stone clearance. Additional procedures, risk of bleeding, hematoma, infection.sepsis, steinstrasse, failure to clear the stone. Ureteroscopy: May need multiple procedures for stone clearance, prolonged stent placement, risk of infection and sepsis. Injury to the ureter, stricture formation,.Residual stone and fragments. PCNL: best chance of stone free from one procedure. Risks are : Bleeding, blood transfusion risk approximately 5%. If arterial injury may need angio-embolization by IR. Pneumothorax risk approximately 1%, may need chest tube placed in the OR or postoperatively. Injury to the bowel, adjacent structures. Need to hospitalization, additional procedure, 2nd look, prolonged drainage from nephrostomy tube or ureteral stent. Will review the CT but anticipate left PCNL. Mini vs standard dependent on imaging and will likely be combined with URS. Plan for Sep 11 at [place] The patient decided to proceed with the above plan. The patient was given the opportunity to have all questions answered and appeared to be satisfied with our discussion. Some elements of this note may be copied from previous versions, however, all data and information has been reviewed and verified and is accurate for today August 11, 2022 Noelle Vega MD Associate Staff documented in this encounterThe [facility]09-07-2022 NotePROCEDURE: XR HIP LT 2 3V W PELVIS HISTORY: Pain of left hip joint ; chronic COMPARISON: None. FINDINGS: BONES:Minimal degenerative changes of the hip joints. Femoral leopoldo within the distal right femur. SOFT TISSUES:No visible soft tissue swelling. EFFUSION:None visible. OTHER: Left ureteral stent with 2 stones within the mid ureter. IMPRESSION: 1. No acute bone abnormality. Minimal degenerative joint disease of the left hip. 2. Left ureteral stones and ureteral stent. Electronically authenticated by: GEMA OTTO Date: 2022-07-26 21:53[facility]04-26-2022 Hospital Discharge instructions Patient Education 03/14/2022 10:23:05 EU - Cystoscopy Discharge Instructions (CUSTOM) Cystoscopy Voiding after the procedure: there may be some pain, burning, urgency, frequency and blood tinged urine following the procedure. These symptoms usually resolve within 2-5 days. Drink the amount of fluid it takes to keep the urine pink to yellow or clear in color. Drinking enough water and fluids will help to ease any discomfort after your procedure. If you are having problems that seem out of the ordinary, please call. If unable to contact your physician and you feel it is an emergency, go to the nearest emergency room or call 911 Diet you may resume your normal diet. Activity you may resume your normal activities Call if you have a fever over 100 degrees. Follow Up Care 03/13/2022 16:42:59 With:Pelon COLES Address: [facility] [address], [place] [address]- [facility] (1) When: Unknown Comments:Office will call to schedule follow up [facility]04-25-2022 Hospital Discharge instructions Patient Education 03/13/2022 16:08:43 Hematuria, Adult Hematuria, Adult Hematuria is blood in the urine. Blood may be visible in the urine, or it may be identified with a test. This condition can be caused by infections of the bladder, urethra, kidney, or prostate. Otherpossible causes include: Kidney stones. Cancer of the urinary tract. Too much calcium in the urine. Conditions that are passed from parent to child (inherited conditions). Exercise that requires a lot of energy. Infections can usually be treated with medicine, and a kidney stone usually will pass through your urine. If neither of these is the cause of your hematuria, more tests may be needed to identify the cause of your symptoms. It is very important to tell your health care provider about any blood in your urine, even if it ispainless or the blood stops without treatment. Blood in the urine, when it happens and then stops and then happens again, can be a symptom of a very serious condition, including cancer. There is no pain in the initial stages of many urinary cancers. Follow these instructions at home: Medicines Take wgrh-azz-[id number] and prescription medicines only as told by your health care provider. If you were prescribed an antibiotic medicine, take it as told by your health care provider. Do notstop taking the antibiotic even if you start to feel better. Eating and drinking Drink enough fluid to keep your urine clear or pale yellow. It is recommended that you drink 3 4 quarts (2.8 3.8 L) a day. If you have been diagnosed with an infection, it is recommended that you drink cranberry juice in addition to large amounts of water. Avoid caffeine, tea, and carbonated beverages. These tend to irritate the bladder. Avoid alcohol because it may irritate the prostate (men). General instructions If you have been diagnosed with a kidney stone, follow your health care provider's instructions about straining your urine to catch the stone. Empty your bladder often. Avoid holding urine for long periods of time. If you are female: ?After a bowel movement, wipe from front to back and use each piece of toilet paper only once. ?Empty your bladder before and after sex. Pay attention to any changes in your symptoms. Tell your health care provider about any changes or any new symptoms. It is your responsibility to get your test results. Ask your health care provider, or the department performing the test, when your results will be ready. Keep all follow-up visits as told by your health care provider. This is important. Contact a health care provider if: You develop back pain. You have a fever. You have nausea or vomiting. Your symptoms do not improve after 3 days. Your symptoms get worse. Get help right away if: You develop severe vomiting and are unable take medicine without vomiting. You develop severe pain in your back or abdomen even though you are taking medicine. You pass a large amount of blood in your urine. You pass blood clots in your urine. You feel very weak or like you might faint. You faint. Summary Hematuria is blood in the urine. It has many possible causes. It is very important that you tell your health care provider about any blood in your urine, even ifit is painless or the blood stops without treatment. Take mdyu-avd-uimlcyy and prescription medicines only as told by your health care provider. Drink enough fluid to keep your urine clear or pale yellow. This information is not intended to replace advice given to you by your health care provider. Make sure you discuss any questions you have with your health care provider. Document Released: 11/05/2006 Document Revised: 03/31/2020 Document Reviewed: 12/08/2017 [employer] Patient Education 2020 [employer]. Follow Up Care 03/13/2022 08:09:52 With:Pelon COLES MD, URL Address: [facility] [address], [place] [address]- [phone] When: Unknown [facility] evaluation + Plan note Future Appointments Appointment Date:03/14/2022 10:00:00 AM Scheduled Provider: Location:[facility] Appointment Type:Urology FT Appointment Date:05/05/2022 09:30:00 AM Scheduled Provider:Pelon COLES MD Location:[facility] Appointment Type:URO Office Visit [facility] [place] evaluation + Plan note Future Appointments Appointment Date:05/05/2022 09:30:00 AM Scheduled Provider:Pelon COLES MD Location:[facility] Appointment Type:URO Office Visit Diagnostic Tests Pending * UroVysion Fish and Urine Cyto ([facility]) [facility]ments Appointment Date:12/18/2022 02:30:00 PM Scheduled Provider:Pelon COLES MD Location:[facility] Appointment Type:URO Office Visit General Surgery [facility] Evaluation + Plan note Future Appointments Appointment Date:06/18/2023 09:45:00 AM Scheduled Provider:Pelon COLES MD Location:[facility] Appointment Type:URO Office Visit [facility] evaluation + Plan note Future Appointments Appointment Date:11/27/2023 03:30:00 PM Scheduled Provider:Pelon COLES MD Location:[facility] Appointment Type:URO Procedure 30 min Appointment Date:12/14/2023 10:30:00 AM Scheduled Provider:Pelon COLES MD Location:[facility] Appointment Type:URO Office Visit General Surgery [facility] evaluation + Plan note Future Appointments Appointment Date:12/14/2023 10:30:00 AM Scheduled Provider:Pelon COLES MD Location:[facility] Appointment Type:URO Office Visit [facility] Evaluation + Plan note Future Appointments Appointment Date:12/14/2023 10:30:00 AM Scheduled Provider:Pelon COLES MD Location:[facility] Appointment Type:URO Office Visit Diagnostic Tests Pending * Prostate Histology ([facility]) [facility]ments Appointment Date:12/19/2024 10:30:00 AM Scheduled Provider:Pelon COLES MD Location:[facility] Appointment Type:URO Office Visit Diagnostic Tests Pending * PSA Total 12/17/23 [facility] [place] evaluation note* Diagnosis Screening for genitourinary condition- Primary Screening for other and unspecified genitourinary condition Calculus of kidney with calculus of ureter Calculus of kidney Staghorn calculus Calculus of kidney documented in this encounter [facility] note* Diagnosis Nephrolithiasis- Primary Calculus of kidney Secondary hyperparathyroidism of renal origin (HCC) Secondary hyperparathyroidism (of renal origin) Gross hematuria Gross hematuria Nephrolithiasis Calculus of kidney documented in this encounter [facility] note* Diagnosis Pre-op evaluation- Primary Preoperative examination, unspecified Hypertension, unspecified type POTS (postural orthostatic tachycardia syndrome) Tachycardia, unspecified Hyperlipidemia, unspecified hyperlipidemia type Type 2 diabetes mellitus without complication, with long-term current use of insulin (HCC) Malignant neoplasm of urinary bladder, unspecified site (HCC) KUNAL (obstructive sleep apnea) Obstructive sleep apnea (adult) (pediatric) BMI 34.0-34.9,adult Body Mass Index 34.0-34.9, adult Nephrolithiasis Calculus of kidney documented in this encounter [facility] note* Diagnosis Calculus of kidney with calculus of ureter Calculus of kidney Nephrolithiasis Calculus of kidney documented in this encounter [facility] note* Diagnosis Hyperkalemia- Primary Hyperpotassemia documented in this encounter [facility] note* Diagnosis Nephrolithiasis- Primary Calculus of kidney Calculus of kidney with calculus of ureter Calculus of kidney documented in this encounter [facility] noteNo InformationNort [employer] Other Evaluation note[employer] Other Evaluation noteNo assessment information available [facility] Work Phone: Evaluation note* Diagnosis Onset Date Resolution Status [id number] acute Primary hypertension acute [id number] acute [facility] Work Phone: History general Narrative - Reported* Type Description Date Medical History Diabetes Medical History HTN Medical History MACK Medical History Hypermobility syndrome Medical History Bladder cancer Medical History Osteoenchondromal right femur Medical History ED Medical History Bone spurs neck/degenerative dis c disease Medical History Fused left ankle Medical History OA Right knee Medical History Kidney stones Medical History Dislocated left elbow Surgical History Reconstruction x 4 then fusion left ankle Surgical History Bone tumor removal right femur Surgical History Bladder tumor removal Surgical History Lithotripsy Surgical History polyps removed during colonosco py Surgical History kidney stone Surgical History rezum procedure on prostate Surgical History COLONOSCOPY Hospitalization History see surgeries [facility] Other History general Narrative - Reported* Type Description Date Medical History Diabetes Medical History HTN Medical History MACK Medical History Hypermobility syndrome Medical History Bladder cancer Medical History Osteoenchondromal right femur Medical History ED Medical History Bone spurs neck/degenerative dis c disease Medical History Fused left ankle Medical History OA Right knee Medical History Kidney stones Medical History Dislocated left elbow Medical History Controlled type 2 di abetes mellitus with hyperglycemia, without long-term current use of insulin Medical History Obstructive sleep apnea Medical History Polyp of descending colon Medical History Prostate nodule Medical History Hyperlipidemia, mixed Medical History Recurrent major depressive disor valentine, in full remission Medical History Lumbar spondylosis Medical History Type 2 diabetes patrice itus with diabetic polyneuropathy, without long-term current use of insulin Medical History Left hip pain Medical History Colon polyps Medical History Anemia Medical History Gross hematuria Medical History Epicondylitis, lateral, left Medical History Type 2 diabetes patrice 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, without long-term current use of insulin, macular edema presence unspecified Medical History Elevated PSA, between 10 and les s than 20 ng/ml Medical History TRANSITIONAL CELL CARCINOMA OF B LADDER Surgical History Reconstruction x 4 then fusion left ankle Surgical History Bone tumor removal right femur Surgical History Bladder tumor removal Surgical History Lithotripsy Surgical History polyps removed during colonosco py Surgical History kidney stone Surgical History rezum procedure on prostate Surgical History COLONOSCOPY Hospitalization History see surgeries [facility] Other History general Narrative - ReportedNort [employer] Other Hospital course Narrative No data available for this section [facility] [employer] [facility] Discharge instructions No data available for this section [facility] progress note No data available for this section [facility] [employer] reason for referral (narrative)* Reason *FU 02/13 Referral for low back pain Diagnosis 1 Lumbar spondylosis ( M47.816) Referral Organization [facility] alfred Referring Provider First Name Sp Referring Provider Last Name Epi Referring Provider Specialty Internal Me dicine Referred Organization [facility] Referred Provider Vandana Blount Referred Address [address], [place],[address] Referred Provider Specialty Pain Medicin e Referral Priority Routine General Notes Patient requesting r jazmine for pain management. He had seen pain management for years but his provider moved. He would like to become established with local pain clinic Smita Prasad 02/06/2023 01:53:36 PM >received today Smita Prasad 02/06/2023 01:55:11 PM >attachments made, notes locked, referral faxed Clinical Notes This patient has chr onic low back pain. He has received benefit from previous injections. P: [phone] F: [id number] [facility] Other Summary Purpose Family History Relationship Condition Age at Onset Recorded Date/T jackie father Unknown Not Specified Unknown Advance Directives Advance Directive Response Recorded Date/ Time Advance Directives No July 03, 2019 6:13am Advance Directive Response Recorded Date/ Time Advance Directives No July 03, 2019 5:13am Reason for Referral Specialty Diagnoses / Procedures Referred By Contac t Referred To Contact Cardiology Diagnoses Nephrolithiasis Procedures CONSULT TO CARDIOLOGY OFFICE/OUTPATIENT [facility] 60-[place] [address] [place] [address] Referral ID Status Reason Start Date Expiration Date Visits Requested Visits Authorized [id number] Pending Review PCP Requested Referral 08/11/2022 08/11/2023 1 1 Specialty Diagnoses / Procedures Referred By Contac t Referred To Contact Diagnoses Nephrolithiasis Procedures REFER TO PACC - PRE ANESTHESIA CONSULTATION CLINIC OFFICE/OUTPATIENT [facility] 60-[place] [address] [place] [address] Referral ID Status Reason Start Date Expiration Date Visits Requested Visits Authorized [id number] Pending Review PCP Requested Referral 08/11/2022 08/11/2023 1 1 Specialty Diagnoses / Procedures Referred By Contac t Referred To Contact CT IMAGING Diagnoses Calculus of kidney with calculus of ureter Procedures CT FLANK WO IVCON CT ABD & PEL[place] [address] [place] [address] Ct Imaging Referral ID Status Reason Start Date Expiration Date Visits Requested Visits Authorized [id number] Authorized Auto-Generat ed Referral 08/11/2022 09/10/2023 1 1 Medications Administered Section Inactive Administered Medications - up to 3 most recent administrations Medication Order MAR Action Action Date Dose Rate Site lidocaine urojet 2 % 11 mL topical gel (XYLOCAINE, GLYDO) 11 mL, URETHRAL, ONCE (UP TO 30 DAYS AMB), 1 dose, On Sun09/26/22 at 1430, FOR EXTERNAL USE ONLY APPLY TO: Urethra Given by LIP 09/26/2022 2:38 PM EST 11 mL sulfamethoxazole-trimethoprim 800-160 mg 1 tablet (BACTRIM DS,SEPTRA DS) 1 tablet, ORAL, ONCE, 1 dose, On Sun09/26/22 at 1430, Please document the antimicrobial indication: Empiric Given 09/26/2022 2:28 PM EST 1 tablet Chief Complaint and Reason for Visit Chief Complaint R97.20 Chief Complaint Check Up worsening neuropathy Reason for Visit [id number] Primary hypertension [id number] Additional Source Comments (unrecognized sect ion and content) No Status Records FoundNo Status Records FoundNo Status Records FoundNo Status Records FoundNo Status Records FoundNo Status Records FoundNo Status Records FoundNo Status Records Found INFORMATION SOURCE (unrecogn ized section and content) DATE CREATED AUTHOR 06/05/2019 [facility] DATE CREATED AUTHOR AUTHOR'S ORGANIZ ATION 01/03/2022 [employer] [facility] DATE CREATED AUTHOR AUTHOR'S ORGANIZ ATION 08/21/2022 [facility] DATE CREATED AUTHOR AUTHOR'S ORGANIZ ATION 09/16/2022 [facility] DATE CREATED AUTHOR AUTHOR'S ORGANIZ ATION 09/27/2022 [facility] DATE CREATED AUTHOR AUTHOR'S ORGANIZ ATION 04/04/2023 [facility] DATE CREATED AUTHOR AUTHOR'S ORGANIZ ATION 09/19/2023 [facility] DATE CREATED AUTHOR AUTHOR'S ORGANIZ ATION 12/18/2023 [facility] Care Team (unrecognized sect ion and content) 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 Relationship Specialty Start Date End Date Sp Chowdary, DO [address] [place] [address] PCP - General Internal Medicine 09/07/22 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 Relationship Specialty Start Date End Date Sp Chowdary, DO [address] [facility] [address] PCP - General Internal Medicine 09/07/22 Team Status: Active Member Role Status Dates Sp Chowdary , Primary Care Provider Active Team Status: Inactive Member Role Status Dates Sp Chowdary , Primary Care Provider Active Pelon Coles MD Attending Provider Active Team Status: Inactive Member Role Status Dates Sp Chowdary , Attending Provider Active Sta rt: October 23, 2023 End: October 23, 2023 Team Status: Inactive Member Role Status Dates Sp Chowdary , Primary Care Provide r, Attending Provider Active Start: January 10, 2024 End: January 10, 2024 Source Comments (unrecognize d section and content) In the event this informatio n is protected by the Federal Confidentiality of Alcohol and Drug Abuse Patient Records regulations: The Federal rules restrict any use of the information to criminally investigate or prosecute any alcohol or drug abuse patient.[facility] Center[facility] the event this information is protected by the Federal Confidentiality of Alcohol and Drug Abuse Patient Records regulations: The Federal rules restrict any use of the information to criminally investigate or prosecute any alcohol or drug abuse patient.[facility] the event this information is protected by the Federal Confidentiality of Alcohol and Drug Abuse Patient Records regulations: The Federal rules restrict any use of the information to criminally investigate or prosecute any alcohol or drug abuse patient.[facility] the event this information is protected by the Federal Confidentiality of Alcohol and Drug Abuse Patient Records regulations: The Federal rules restrict any use of the information to criminally investigate or prosecute any alcohol or drug abuse patient.[facility] Center[facility] the event this information is protected by the Federal Confidentiality of Alcohol and Drug Abuse Patient Records regulations: The Federal rules restrict any use of the information to criminally investigate or prosecute any alcohol or drug abuse patient.[facility] the event this information is protected by the Federal Confidentiality of Alcohol and Drug Abuse Patient Records regulations: The Federal rules restrict any use of the information to criminally investigate or prosecute any alcohol or drug abuse patient.[facility] Center[facility] the event this information is protected by the Federal Confidentiality of Alcohol and Drug Abuse Patient Records regulations: The Federal rules restrict any use of the information to criminally investigate or prosecute any alcohol or drug abuse patient.[facility] Center[facility] the event this information is protected by the Federal Confidentiality of Alcohol and Drug Abuse Patient Records regulations: The Federal rules restrict any use of the information to criminally investigate or prosecute any alcohol or drug abuse patient.[facility] Reason for Visit (unrecogniz ed section and content) Reason Comments New Patient Kidney stones Reason Comments Other CD from [facility] XR KUB Reason Comments Schedule Surgery Specialty Diagnoses / Procedures Referred By Elena apple Referred To Contact Diagnoses Nephrolithiasis Procedures REFER TO PACC - PRE ANESTHESIA CONSULTATION CLINIC OFFICE/OUTPATIENT NEW HIGH MDM 60-[place] [address] [place] [address] Referral ID Status Reason Start Date Expiration Date Visits Requested Visits Authorized [id number] Pending Review PCP Requested Referral 08/11/2022 08/11/2023 1 1 Specialty Diagnoses / Procedures Referred By Elena apple Referred To Contact CT IMAGING Diagnoses Calculus of kidney with calculus of ureter Procedures CT FLANK WO IVCON CT ABD & PEL[place] [address] [place] [address] Ct Imaging Referral ID Status Reason Start Date Expiration Date V isits Requested Visits Authorized [id number] Closed Auto-Generate d Referral 08/11/2022 09/10/2023 1 1 Reason Comments Cystoscopy-1 Stent Extraction Goals (unrecognized section and content) Goals may be documented in a n alternate section FOR RECORDS PERTAINING TO PATIENTS WHO ARE OR HAVE BEEN ENROLLED IN A CHEMICAL DEPENDENCY/SUBSTANCEABUSE PROGRAM, SOME INFORMATION MAY BE OMITTED. This clinical summary was aggregated from multiple sources. Caution should be exercised in using it in the provision of clinical care. This summary normalizes information from multiple sources, and as a consequence, information in this document may materially change the coding, format and clinical context of patient data. In addition, data may be omitted in some cases. CLINICAL DECISIONS SHOULD BE BASED ON THE PRIMARY CLINICAL RECORDS. [employer] [facility]. provides no warranty or guarantee of the accuracy or completeness of information in this document.
[2024-01-26 09:55] LABS: Basophils Percent Auto 0.4 % (0.2-2.0); Eosinophils Absolute Auto 0.4 10^3/uL (0.0-0.7); Eosinophils Percent Auto 5.1 % (0.9-7.0); Hematocrit 43.6 % (42.0-54.0); Immature Granulocytes Abs Auto 0.03 10^3/uL (0.00-0.03); Immature Granulocytes Pct Auto 0.4 % (0.0-0.5); Lymphocytes Percent Auto 28.9 % (20.5-60.0); Mean Corpuscular HGB Conc 32.1 g/dL (29.9-35.2); Mean Corpuscular Hemoglobin 26.9 pg (25.9-34.0); Mean Corpuscular Volume 83.7 fL (80.0-94.0); Monocytes Absolute Auto 0.5 10^3/uL (0.3-0.8); Monocytes Percent Auto 7.2 % (1.7-12.0); Platelet Count 175 10^3/uL (150-450); Red Blood Count 5.21 10^6/uL (4.70-6.10); Red Cell Distribution Width 13.6 % (11.0-15.0); White Blood Count 6.8 10^3/uL (4.0-11.0)
[2024-01-26 09:56] LABS: Microalbumin Urine Random 7.8 mg/dL (<=30.0)
[2024-01-26 10:22] LABS: Alanine Aminotransferase 48 U/L (16-63); Albumin Globulin Ratio 1.1; Albumin Level 3.9 g/dL (3.4-5.0); Alkaline Phosphatase 92 U/L (46-116); Anion Gap 14.5; Aspartate Amino Transferase 35 U/L (15-37); BUN Creatinine Ratio 14.1; Bilirubin Total 0.5 mg/dL (0.2-1.0); Calcium 8.9 mg/dL (8.5-10.1); Chloride 104 mmol/L (98-107); Chol HDL Ratio 3.8; Cholesterol 135 mg/dL (<=200); Estimated GFR (African America >60 (>=60); Estimated GFR (Non-African Ame 51 (>=60); Globulin 3.4 g/dL; Glucose 134 mg/dL (74-106); HDL Cholesterol 36 mg/dL (40-60); Potassium 4.5 mmol/L (3.5-5.1); Sodium 139 mmol/L (136-145); Total Protein 7.3 g/dL (6.4-8.2); Triglycerides 139 mg/dL (<=150); VLDL CHOLESTEROL 27.8 mg/dL
[2024-01-26 11:03] LABS: Estimated Average Glucose 131 mg/dL; Glycohemoglobin A1C 6.2 % (4.5-6.2)
== END 2024-01-26 09:16 | disposition home or self-care (01) ==
LOC: LAB 09:15
PROVIDERS: PCP Internal Medicine; Visit Provider Internal Medicine
DX: Z00.00 Encounter for general adult medical examination without abnormal findings (principal)
CPT/HCPCS: 36415; 80053; 80061; 82043; 83036; 85025

== ENCOUNTER 2024-02-22 07:56 | Outpatient (OUT) | payer OTHER, MEDICARE, SELFPAY ==
--- OUTSIDE RECORDS SUMMARY | 2024-02-22 08:13 | XMS_ITS | CCD ---
Author Organization [facility] Care Team Providers Care Fish Boning Machine Feeder Name Role Phone PROVIDER, UNKNOWN Attending Unavailable PROVIDER, UNKNOWN Admitting Unavailable CARTER GODFREY Referring Unavailable SP CHOWDARY Primary Care Physician [phone] Unavailable Primary Care Provider Unavailrigoberto e Unavailable Primary Care Provider NOELLE Mejia Attending Unavailable PELON COLES Referring Unavailable Sp Chowdary DO Primary Care Provider NOELLE VEGA Attending Unavailable SILVIA, NOELLE Admitting Unavailable ZAMPINI, NOELLE Referring Unavailable ZAMPINI, NOELLE Referring Unavailable ZAKRISSYINI, NOELLE Referring Unavailable SILVIA, NOELLE Attending Unavailable SP CHOWDARY Primary Care Unavailable Unavailable Primary Care Provider UnavailAlfonzo Read II Unavailable [phone] Sp Chowdary Unavailable LUPEMIPATHNico ., LIANA Attending Britni vailable ELLIE ., LIANA Admitting Britni vailable EPI, DR SNOWDEN Primary Care Unavailable Gema Otto Consulting Unavailable ELLIE ., LIANA Consulting Britni barbarable EPI, DR SNOWDEN Primary Care Unavailable PAY ., DR WASHINGTON Admitting Unavailable PAY ., DR WASHINGTON Attending Unavailable PAY ., DR WASHINGTON Consulting Unavailable COLES ., DR BIRD Admitting [...] EPI, DR SNOWDEN Primary Care Unavailable HALKER .RADHA Attending Unavailable HALKER ., RADHA Admitting Unavailable EPI, DR SNOWDEN Primary Care Unavailable COLES ., DR BIRD Consulting Unavailable COLES ., DR BIRD Attending Unavailable COLES ., DR BIRD Admtulio Unavailable BALL, DR SNOWDEN Primary Care Unavailable GARCIATAY HONEYCUTT Consulting Unavailable MCCORNACKGEMA Consulting Unavailable COLES ., DR BIRD Consulting Unavailable MISC, DR WILLIAMSON Admitting Unavailable RUELAS, DR RADHA Salmon Primary Care Unavailable MISC, DR WILLIAMSON Attending Unavailable MISC, DR WILLIAMSON Consulting Unavailable Gema Otto Consulting Unavailable BALL, DR SNOWDEN Primary Care Unavailable COLES ., DR BIRD Consulting Unavailable COLES ., DR BIRD Admitting Unavailable COLES ., DR BIRD Attending Unavailable ZieberGema Consulting Unavailable COLES ., DR BIRD Consulting Unavailable COLES ., DR BIRD Attending Unavailable COLES ., DR BIRD Admtulio Unavailable BALL, DR SNOWDEN Primary Care Unavailable Gema Otto Consulting Unavailable BALL, DR SNOWDEN Admitting Unavailable BALL, DR SNOWDEN Attending Unavailable BALL, DR SNOWDEN Consulting Unavailable BALL, DR SNOWDEN Primary Care Unavailable COLES ., DR BIRD Attending Unavailable COLES ., DR BIRD Consulting Unavailable COLES ., DR BIRD Admtulio Unavailable BALL, DR SNOWDEN Primary Care Unavailable MANISTEE, DR IJ Smallwood Consulting Unavailable HALKER ., RADHA Attending Unavailable HALKER ., RADHA Consulting Unavailable BALL, DR SNOWDEN Primary Care Unavailable HALKER ., RADHA Admitting Unavailable LAKSHMIPATHY ., LIANA Attending Britni vailable LAKSHMIPATHY ., CLARARANATH Consulting Britni vailable LAKSHMIPATHY ., YUEATH Admitting Britni vailable EPI, DR SNOWDEN Primary Care Unavailable LAKSHMIPATHY ., LIANA Attending Britni vailable LAKSHMIPATHY ., LIANA Consulting Britni vailable LAKSHMIPATHY ., LIANA Admitting Britni vailable EPI, DR SNOWDEN Primary Care Unavailable COLES ., DR BIRD Attending Unavailable COLES ., DR BIRD Consulting Unavailable COLES ., DR BIRD Admtulio Unavailable BALL, DR SNOWDEN Primary Care Unavailable Gema Otto Consulting Unavailable RUELAS, DR RADHA Salmon Admitting Unavailable RUELAS, DR RADHA Salmon Attending Unavailable RUELAS, DR RADHA Salmon Primary Care Unavailable Gema Otto Consulting Unavailable RUELAS, DR RADHA Salmon Consulting Unavailable BALL, DR SNOWDEN Primary Care Unavailable COLES ., DR BIRD Admtulio Unavailable [...] ., NARENDRANATH Consulting Britni vailable LAKSHMIPATHY ., NARENDRANATH Admitting Britni vailable BALL, DR SNOWDEN Primary Care Unavailable Epi, DO Snowden Primary Care Provider MD Pelon Coles Attending Provider Sp Chowdary Primary Care Unavailable Brule II, Alfonzo Adrian Attending Unavailabl e Brule II, Alfonzo Adrian Admitting Unavailabl e BallSp Primary Care Unavailable Brule II, Alfonzo Adrian Attending Unavailabl e Brule II, Alfonzo Adrian Admitting Unavailabl e Coles, Pelon Attending Unavailable Coles, Pelon Coombsitting Unavailable Ball, Sp Primary Care Unavailable COLES, [...] Drug Allergy 7 Vomiting, GI Upset [facility] Repository (4 sources) exenatide; Translations: [BYETTA] Drug Allergy 7 Vomiting [facility] (20 sources) pioglitazone; Translations: [PIOGLITAZONE] Drug Allergy 7 Eruption of skin (disorder), Other, Swelling [facility] [employer] [facility] Repository (20 sources) exenatide; Translations: [exenatide] Drug Allergy 3 Vomiting [facility] (12 sources) Morphine; Translations: [morphine] Drug Allergy 4 Other (qualifier value), Itching (finding) [facility] (2 sources) diazePAM; Translations: [Valium] Drug Allergy [facility] Repository (1 source) Morphine Drug Allergy [facility] Repository (2 sources) pioglitazone; Translations: [Actos] Drug Allergy [facility] Repository (7 sources) Vancomycin Drug Allergy 4 Unknown, Unknown Reaction [facility] (3 sources) patient allergy list reviewed by nurse or physicia Propensity to adverse reactions 9 Comment:Done [employer] Other (1 source) Unable to Assess Drug allergy (disorder) 2 [facility] Repository (1 source) Byetta Prefilled Pen; Translations: [Byetta Prefilled Pen] Propensity to adverse reactions (disorder) [facility] Repository Medications Current Medications Medication Drug Class(es) [...] Comment on above: Take 1 capsule by [facility] three times daily for 3 days. ciprofloxacin 500 mg oral tablet (4 sources) Quinolone Antimicrobial Start: 10-02-20 End: 10-09-20 Cipro 500 mg Tab 500 mg = 1 tab(s), Oral, q12hr, Start 3 days prior to procedure, X 7 day(s), # 14 tab(s), Refills(s) 0, Pharmacy: [facility]/pharmacy #[id number], 177, cm, 06/12/23 16:16:00 EDT, Height/Length Dosing, 111, kg, 12/18/22 15:22:00 EST, Weight Dosing Start Date: 10/02/23 Stop Date: 10/09/23 Status: Ordered Start: 03-13-2022 take 1 tablet by martha once daily Cipro 500 mg Tab 500 mg = 1 tab(s), Oral, Daily, take 1 day prior to procedure and 1 tab after procedure, # 2 tab(s), Refills(s) 0, Pharmacy: [facility]/pharmacy #[id number], 177, cm, 03/13/22 15:23:00 EDT, [...] Status: Ordered take 1 capsule by [facility] once daily at bedtime Gabapentin 100 [...] Status: Ordered take 1 capsule by [facility] once daily Metoprolol Succinate 50 MG 1 [...] Comment on above: Take 1 tablet by [facility] three times daily as needed for up [...] activity, # 30 tab(s), Refills(s) 3, Pharmacy: [facility]/pharmacy #[id number], 177, cm, 12/17/23 11:33:00 EST, [...] period., # 30 tab(s), Refills(s) 11, Pharmacy: [facility] [id number], 177, cm, 06/12/23 16:16:00 EDT, Height/Length Dosing, [...] period., # 30 tab(s), Refills(s) 3, Pharmacy: [facility] [id number], 177, cm, 03/13/22 15:23:00 EDT, Height/Length Dosing,... [...] 03/23/2017 Active take 1 tablet by martha th every twenty-four hours Tadalafil 10 MG 1 [...] on above: Take 1 capsule by [facility] daily at bedtime. Completed/Discontinued Medications Medication [...] Comment on above: [facility] hours as needed for pain [...] on above: Take 1 capsule by [facility] twice daily. 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; Translations: [Type 2 diabetes mellitus without complication, with long-term current use of insulin (HCC)] Onset: 2 Episodic Other aftercare (1 source) Long-term current use of drug therapy; Translations: [Other prison (current) drug therapy] Episodic Other aftercare (3 sources) High risk drug monitoring status; Translations: [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) use of opiate analgesic] Episodic Other aftercare (6 sources) Long-term current use of insulin; Translations: [FCI (current) use of insulin] 01-08-2024 Episodic Other [...] 11-03-2015 Episodic Other aftercare (1 source) Other prison (current) drug therapy; Translations: [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 Take yvqv-hut-lxvlokq and prescription medicines only as told by [...] include cig (more content not included)... Normal [facility] Urology Office/Clinic Noteon 12-17-2023 Urology Office/Clinic Note [...] 12/05/22 - 10.5 & 28.4%. Neg TRUS/bx 2017. Had neg MRI done 2018 and 04/20/22. [...] URL [facility] [address], [place] [address] [id number] Additional Instructions: 1 yr w/ PSA and KUB Patient Education Erectile Dysfunction Sahra Weems, personally scribed for Dr. Coles on 12/17/2023 12:55:15. . Documentation recorded by the scribe, Sahra Daugherty, accurately reflects the services(s) I performed and decisions made by me. Authenticated by Dr. Coles on 12/17/2023 12:57:24. Problem List/Past Medical History Ongoing Abdominal bloating Anemia Antral ulcer Arthritis Benign n (more content not included)... Normal [facility] Comment on above: Result Comment: Elec tronically Signed By: Pelon COLES MD\.br\Date and Time Signed: 12/17/23 12:57 EST\.br\Electronically Co-Signed By: Sahra Daugherty\.br\Date and Time Co-Signed: 12/17/23 12:55 EST Prostate Histology ([facility]) on 12-07-2023 Prostate Histology Diagnosis Info Invalid Interpretation Code [facility] Comment on above: Result Comment: A:Pr ostate,Left Lateral Base:Needle Biopsy Interpretation - - Benign prostatic tissue (see comment). MicroScopic Description - B:Prostate,Left Lateral Mid:Needle Biopsy Interpretation - - Benign prostatic tissue. MicroScopic Description - C:Prostate,Left Lateral [place]:Needle Biopsy Interpretation - - Benign prostatic tissue. MicroScopic Description - D:Prostate,Left Base:Needle Biopsy Interpretation - - Benign prostatic tissue (see comment). MicroScopic Description - E:Prostate,Left Mid:Needle Biopsy Interpretation - - Benign prostatic tissue (see comment). MicroScopic Description - F:Prostate,Left [place]:Needle Biopsy Interpretation - - Benign prostatic tissue. MicroScopic Description - G:Prostate,Right Base:Needle Biopsy Interpretation - - Benign prostatic tissue with patchy chronic inflammation. MicroScopic Description - H:Prostate,Right Mid:Needle Biopsy Interpretation - - Benign prostatic tissue. MicroScopic Description - I:Prostate,Right [place]:Needle Biopsy Interpretation - - Benign prostatic tissue. MicroScopic Description - J:Prostate,Right Lateral Base:Needle Biopsy Interpretation - - Benign prostatic tissue (see comment). MicroScopic Description - K:Prostate,Right Lateral Mid:Needle Biopsy Interpretation - - Benign prostatic tissue (see comment). MicroScopic Description - L:Prostate,Right Lateral [place]:Needle Biopsy Interpretation - - Benign prostatic tissue. [...] J and K: PIN4 reviewed. CPT code: 04601 x 12 08426 x 5 Electronically signed by : on: 12/07/2023 13:49:50 Performed By: #### 1 [id number] ####[place] [address] [place] [address] Consent for Procedure/Surger yon 11-29-2023 Consent for Procedure/Surgery [id number]#1.00TIFF Normal [facility] Prostate Histology ( Labs) on 11-28-2023 PH Method of Extraction Needle Biopsy Normal [facility] Comment on above: Performed By: #### 1 [id number] ####[facility] [address] [place] [address] PH Number of Jars 2 Invalid Interpretation Code [facility] Comment on above: Performed By: #### 1 [id number] ####[facility] [address] [place] [address] PH Specimen 1 R Base Prostate Normal [facility] Comment on above: Performed By: #### 1 [id number] ####[facility] [address] [place] [address] PH Specimen 10 L Lat Mid Prost Normal [facility] Comment on above: Performed By: #### 1 [id number] ####[facility] [address] [place] [address] PH Specimen 11 L Apx Prostate Normal [facility] Comment on above: Performed By: #### 1 [id number] ####[facility] [address] [place] [address] PH Specimen 12 L Lat Apx Prost Normal [facility] Comment on above: Performed By: #### 1 [id number] ####[facility] [address] [place] [address] PH Specimen 2 R Lat Bse Prost Normal [facility] Comment on above: Performed By: #### 1 [id number] ####[facility] [address] [place] [address] PH Specimen 3 R Mid Prostate Normal [facility] Comment on above: Performed By: #### 1 [id number] ####[facility] [address] [place] [address] PH Specimen 4 R Lat Mid Prost Normal [facility] Comment on above: Performed By: #### 1 [id number] ####[facility] [address] [place] [address] PH Specimen 5 R Apx Prostate Normal [facility] Comment on above: Performed By: #### 1 [id number] ####[facility] [address] [place] [address] PH Specimen 6 R Lat Apx Prost Normal [facility] Comment on above: Performed By: #### 1 [id number] ####[facility] [address] [place] [address] PH Specimen 7 L Base Prostate Normal [facility] Comment on above: Performed By: #### 1 [id number] ####[facility] [address] [place] [address] PH Specimen 8 L Lat Bse Prost Normal [facility] Comment on above: Performed By: #### 1 [id number] ####[facility] [address] [place] [address] PH Specimen 9 L Mid Prostate Normal [facility] Comment on above: Performed By: #### 1 [id number] ####[facility] [address] [place] [address] PH Type of Service Technical Only Normal [facility] Comment on above: Performed By: #### 1 [id number] ####[facility] [address] [place] [address] Ambulatory Visit Summaryon 0 11-27-2023 Ambulatory Visit [...] PRECIADO, Pelon Mujica Where: [facility] [place] [facility] Patient Educationon 11-27-19 Patient Education Oncology Transrectal [...] near your rectum, especially while sitting. ? Keo-colored urine due to small amounts of blood in your urine. ? A burning feeling while urinating. ? Blood in your stool (feces) or bleeding from your rectum. ? Blood in your semen. Follow these instructions at home: Medicines ? Take nleh-smn-fvdpqkh and prescription medicines only as told by [...] provider. Document Revised: 05/01/2022 Document Reviewed: 05/01/2022 [employer] Patient Education ? 2022 [employer] [facility] Urology Office/Clinic Noteon 11-27-2023 Urology Office/Clinic Note [...] 12/05/22 - 10.5 & 28.4%. Neg TRUS/bx 2017. Had neg MRI done 2018 and 04/20/22. [...] 10mg PRN. Follow-up With When Contact Information SANKET PRECIADO, Pelon Mujica, URL [facility] [address] [place] [address] [phone] Additional Instructions: review path on 12/14/23 Patient Education Transrectal Ultrasound-Guided Prostate Biopsy, Care After ISahra, personally scribed for Dr. Coles on (more content not included)... Normal [facility] Comment on above: Result Comment: Elec tronically Signed By: Pelon COLES MD\.br\Date and Time Signed: 11/27/23 16:43 EST\.br\Electronically Co-Signed By: Sahra Daugherty\.br\Date and Time Co-Signed: 11/27/23 16:39 EST Insurance Correspondenceon 0 11-26-2023 Insurance Correspondence [id number]#1.00TIF F [facility] Ambulatory Visit Summaryon 1 01-15-2023 Ambulatory Visit [...] PRECIADO, Pelon Mujica Where: [facility] [place] [id number] \.br\ Medications\.br \ What How Much When [...] for choosing us for your care.\.br\ \.br\ [facility] General Surgery Office/Clini c Noteon 11-14-2023 General [...] virus vaccine, inactivated 07/2023 Recorded SARS-CoV-2 (COVID-19) mRNAMUL.ORD![id number] 08/13/2022 Recorded influenza virus vaccine, inactivated 07/26/2022 Recorded SARS-CoV-2 (COVID-19) mRNA BNT-162b2 vax 10/23/2021 Recorded influenza virus vaccine, inactivated 08/10/2021 Recorded SARS-CoV-2 (COVID-19) Ad26 vaccine 04/15/2021 Recorded SARS-CoV-2 (COVID-19) Ad26 vaccine 03/25/2021 Recorded SARS-CoV-2 (COVID-19) mRNA BNT-162b2 vax 02/15/2021 Recorded SARS-CoV-2 (COVID-19) mRNA BNT-162b2 vax 01/25/2021 Recorded influenza virus vaccine, live, trivalent 07/2019 Re (more content not included)... Normal [facility] Comment on above: Result Comment: Elec tronically [...] not retrieved (2022)/history of colon polyps. Normal [facility] Outside Colonoscopyon 2022 Outside Colonoscopy [id number]#1.00TIFF Normal [facility] Pathology Noteon 11-06-2023 Pathology Note [id number]#1.00TIFF Normal [facility] Ambulatory Visit Summaryon 1 12-30-2022 Ambulatory Visit Summary DAT LOPEZ :1960 Visit Date:10/29/2023 Ambulatory Visit Instructions Your Diagnosis History of kidney stones Elevated PSA BPH with obstruction/lower urinary tract symptoms Prostate nodule History of bladder cancer Erectile dysfunction Tests Performed Urnls Dip Stick Auto w/o Microscopy POC 28125 Your Care Team Attending Physician - Pelon [...] Follow-Up Appointments Sunday 3:30 PM EST With: Pelon COLES MD Where: [facility] [address] [place] [id number]- \.br\ You Need to Schedule the Following Appointments\.b r\ Follow Up with SANKET PRECIADO, Pelon Mujica, URL When: \.br\ Comments:\.br\ Scheduled for TRUS/bx on 11/27/23.\.br\ Where:\.br\ [facility] [address] [place]br\ [place] [address]-\.br\ Medications\.br \ What How Much When Instructions\.b [...] Urnls Dip Stick Auto w/o Microscopy POC 13812 (10/29/2023)\.b r\ Bilirubin Urine Dipstick - Negative\.br\ Blood Urine Dipstick - Negative\.br\ Glucose Urine Dipstick - Negative\.br\ Ketones Urine Dipstick - Negative\.br\ Leukocytes Urine Dipstick - Negative\.br\ Nitrite Urine Dipstick - Negative\.br\ Protein Urine Dipstick - Trace\.br\ Specific [place] Urine Dipstick - 1.020\.br\ Urine Appearance Urine [...] for choosing us for your care.\.br\ \.br\ [facility] Urology Office/Clinic Noteon 10-29-2023 Urology Office/Clinic Note [...] for refills. Follow-up With When Contact Information SANKET PRECIADO, Pelon Mujica, URL [facility] [address], [place] [address]- Additional Instructions: Scheduled for TRUS/bx on 11/27/23. [...] disease Depression Diabetes (more content not included)... [facility] Comment on above: Result Comment: Elec tronically Signed By: Pelon COLES MD\.br\Date and Time Signed: 10/29/23 15:44 EST\.br\Electronically Co-Signed By: Va Rivers\.br\Date and Time Co-Signed: 10/29/23 15:42 EST Consent for Procedure/Surger yon 10-09-2023 Consent for Procedure/Surgery [id number]#1.00TIFF [facility] Insurance Correspondenceon 1 12-08-2022 Insurance Correspondence [id number]#1.00TIFF [facility] Ambulatory Visit Summaryon 1 12-05-2022 Ambulatory Visit Summary JOHN DAT L :1960 Visit Date:10/05/2023 Ambulatory Visit Instructions [...] PRECIADO, Pelon Mujica Where: [facility] [address] [place] [address]- \.br\ Medications\.br \ What How Much When [...] for choosing us for your care.\.br\ \.br\ [facility] RAD - MRI Reporton 3 RAD - MRI Report [id number]#1.00TIFF Normal [facility] Reminderson 09-14-2023 Reminders - From: Nelida Ortiz To: [facility] - Recalls Coles; Cc: Nelida Ortiz; Sent: 08/09/2023 16:23:35 EDT Show up: 02/18/2024 16:23:00 EDT Subject: MRI of prostate Due Date/Time: 03/10/2024 16:23:00 EDT Reminder/Recall Pt is due for MRI of prostate w/wo in March 2024. pt ended up having it done Aug 2023. see message re: results for PRW plan. Normal [facility] MR prostate wo/w conon 09-11 MR prostate wo/w con [facility] [place] [address] MRI Report Signed Patient: Dat Lopez JR MR#: [id number] : 1960 Acct:[id number] Age/Sex: 63 / M ADM Date: 09/11/23 Loc: Room: Type: [facility] Attending Dr: Pelon Coles MD Copies to: [...] Boston Jr., D.O.09/11/2023 4:28 PM Dictation Location: [place] [address] Transcribed By: [facility] 09/11/238 Dictated By: Mitul Boston Jr, DO 09/11/231620 Signed By: 09/11/231627 [facility] Insurance Correspondenceon 0 06-26-2023 Insurance Correspondence [id number]#1.00CD:1 27 Normal [facility] UroVysion Fish and Urine Cyt o ([facility])on 06-25-2023 UVFISH & UC Diagnosis Info Invalid Interpretation Code [facility] Comment on above: Result Comment: A:Ur ine,Urine:Voided [...] cytology, and continued follow-up are recommended.* CPT 04091, 27909. Microscopic Notes - Microscopic Notes - Abnormal cells 9p21 deletions: Abnormal cells aneploid events: Total cells analyzed: 3 Hematuria: Gross Description Site ID:A color Yellow fixative Alcohol Received 80 mls of clear yellow fluid with the patient's name and, Urine on the vial. Electronically signed by : on: 06/25/2023 10:51:09 Performed By: #### 1 [id number] #### [facility] [address] [place] [address] Consent for Procedure/Surger yon 06-12-2023 Consent for Procedure/Surgery [id number]#1.00CD:12 7 Normal [facility] Consent for Treatmenton 05-20 Consent for Treatment [id number]#1.00CD:12 7 Normal [facility] IntraOperative Documentson 0 06-12-2023 IntraOperative Documents [id number]#1.00CD:[address] [facility] Main [place] Intraoperative Recor don 06-12-2023 Main OR Intraoperative Record IntraOp Document Type FTURO Summary Primary Physician: Pelon COLES MD Finalized Date/Time: 06/12/23 12:24:53 Pt. Name: DAT LOPEZ D.O.B./Sex: 1960 Male Med Rec #: [id number] Physician: Pelon COLES MD Financial #: [id number] Pt. 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 Surgeon Description CYSTO Primary Procedure Yes Primary Surgeon Pelon COLES MD Start 06/12/23 12:17:00 Stop 06/12/23 12:25:00 Anesthesia Type Local Surgical Service Urology Wound Class 2 - Clean-Contaminated Last Modified By: Sandra WHALEY, ALIREZAOR, Jazmyne 06/12/23 12:23:18 General Case Data FTURO [...] COLES MD, Verified (If Participants Sandra WHALEY, CNOR, Applicable) Tomas Samano CST, Kimberly A Time [...] By: AUDRA Flores RN, Ruthann 06/12/23 12:[address] [facility] Main OR Preoperative Recordo n 06-12-2023 Main OR Preoperative Record Holding Area Document Type FTURO Summary Primary Physician: Pelon COLES MD Finalized Date/Time: 06/12/23 12:21:21 Pt. Name: DAT LOPEZ/Sex: 1960 Male Med Rec #: [id number] Physician: Pelon COLES MD Financial #: [id number] Pt. Type: O Room/Bed: / Admit/Disch: 06/12/23 [...] of Pain: No ambulation Skin Integrity Intact, Keo, Warm, & Dry Vitals - EU Blood Pressure 150/90 Pulse 77 bpm Respirations 20 br/min SPO2 95 % Additional GIN RN Reviewed Yes Specimens Collected Last Modified By: AUDRA Flores RN, Ruthann 06/12/23 12:13:44 General Comments: Temp 37.0 Finalized By: AUDRA Flores RN, Ruthann Document Signatures Signed By: AUDRA Flores RN, Ruthann 06/12/23 12:13 Fauzia De Los Santos LPN 06/12/23 12:08 AUDRA Flores RN, Ruthann 06/12/23 12:21 Normal [facility] Operative Reporton Operative Report Patient: SAMANTHA LOPEZ [...] with antibiotic coverage, Follow up arranged. Normal [facility] Comment on above: Result Comment: Elec tronically Signed By: SANKET PRECIADO, Pelon Quiñones\Date and Time Signed: 06/12/23 12:31 EDT Outpatient Surgery Discharge Instructionon 06-12-2023 Outpatient Surgery Discharge Instruction [id number]#[id number]:12 7 Normal [facility]roVys[facility] Fish and Urine Cyt o ([facility])on 06-12-2023 [facility] Method of Extraction Voided Normal [facility] Comment on above: Performed By: #### 1 [id number] #### [facility] [address] [place] [address] [facility] Number of Jars 1 Invalid Interpretation Code [facility] Comment on above: Performed By: #### 1 [id number] #### [facility] [address] [place] [address] [facility] Specimen Urine Normal [facility] Comment on above: Performed By: #### 1 [id number] #### [facility] [address] [place] [address] [facility] Type of Service Technical Only Normal [facility] Comment on above: Performed By: #### 1 [id number] #### [facility] [address] [place] [address] Lab Reportson 06-11-2023 Lab Reports [id number]#1.00CD:12 7 Normal [facility] Reminderson 05-29-2023 Reminders - From: Nelida Ortiz To: EU - Recalls Coles; Cc: Nelida Ortiz; Sent: 05/29/2023 13:20:11 EDT Show up: 04/19/2024 13:20:00 EDT Subject: Cysto/fish/cytol/psa Due Date/Time: 05/05/2024 13:20:00 EDT Reminder/Recall Patient is due in May 2024 for 1 year cysto/fish/cytol/PSA (bt ck) Normal [facility] Pre-Certification Formon Pre-Certification Form [id number]#1.00CD:1 27 Normal [facility] RAD - MISCon 03-05-2023 RAD - MISC [id number]#1.00CD:12 7 Normal [facility] Physician Referralon 023 Physician Referral [id number]#1.00CD:12 7 Normal [facility] XR KUB 1 VIEWon 02-23-2023 XR KUB [...] by: GEMA OTTO Date: 2023-02-23 06:58 Normal [facility] XR LSPINE 2_3 VIEWSon 2022 XR LSPINE [...] GEMA OTTO Date: 2023-02-23 07:03 Normal [facility] CBC AUTO DIFFon 02-22-2023 BASO # 0.0 103/ul Normal 0.0-0.1 [facility] Comment on above: Performed By: #### C BC #### [facility] [address] [place] [address] Dr. Nikky Man Basophils/100 WBC (Bld) 0.3 % Normal 0.2-2.0 [facility] Comment on above: Performed By: #### C BC #### [facility] [address] [place] [address] Dr. Nikky Man EO # 0.2 103/ul Normal 0.0-0.7 [facility] Comment on above: Performed By: #### C BC #### [facility] [address] [place] [address] Dr. Nikky Man Eosinophils/100 WBC (Bld) 3.0 % Normal 0.9-7.0 [facility] Comment on above: Performed By: #### C BC #### [facility] [address] [place] [address] Dr. Nikky Man Erythrocyte distribution width (RBC) [Ratio] 14.1 % Normal 11.0-15.0 [facility] Comment on above: Performed By: #### C BC #### [facility] [address] [place] [address] Dr. Nikky Man Hematocrit (Bld) [Volume fraction] 40.4 % Critically low 42.0-54.0 [facility] Comment on above: Performed By: #### C BC #### [facility] [address] [place] [address] Dr. Nikky Man Hemoglobin (Bld) [Mass/Vol] 13.3 g/dL Critically low 14.0-18.0 [facility] Comment on above: Performed By: #### C BC #### [facility] [address] [place] [address] Dr. Nikky Man IG # 0.02 10e3/ul Normal 0.00-0.03 [facility] Comment on above: Performed By: #### C BC #### [facility] [address] [place] [address] Dr. Nikky Man IG % 0.3 % Normal 0.0-0.5 [facility] Comment on above: Performed By: #### C BC #### [facility] [address] [place] [address] Dr. Nikky Man LYMPH # 1.6 103/ul Normal 1.2-3.8 [facility] Comment on above: Performed By: #### C BC #### [facility] [address] [place] [address] Dr. Nikky Man Lymphocytes/100 WBC (Bld) 23.3 % Normal 20.5-60.0 [facility] Comment on above: Performed By: #### C BC #### [facility] [address] [place] [address] Dr. Nikky Man MANUAL DIFF REQ NO Normal [facility] Comment on above: Performed By: #### C BC #### [facility] [address] [place] [address] Dr. Nikky Man MCH (RBC) [Entitic mass] 26.3 pg Normal 25.9-34.0 [facility] Comment on above: Performed By: #### C BC #### [facility] [address] [place] [address] Dr. Nikky Man MCHC (RBC) [Mass/Vol] 32.9 g/dL Normal 29.9-35.2 [facility] Comment on above: Performed By: #### C BC #### [facility] [address] [place] [address] Dr. Nikky Man MCV (RBC) [Entitic vol] 80.0 fL Normal 80.0-94.0 [facility] Comment on above: Performed By: #### C BC #### [facility] [address] [place] [address] Dr. Nikky Man MONO # 0.4 103/ul Normal 0.3-0.8 [facility] Comment on above: Performed By: #### C BC #### [facility] [address] [place] [address] Dr. Nikky Man Monocytes/100 WBC (Bld) 5.8 % Normal 1.7-12.0 [facility] Comment on above: Performed By: #### C BC #### [facility] [address] [place] [address] Dr. Nikky Man NEUT # 4.7 103/ul Normal 1.4-6.5 [facility] Comment on above: Performed By: #### C BC #### [facility] [address] [place] [address] Dr. Nikky Man Neutrophils/100 WBC (Bld) 67.3 % Normal 43.0-75.0 [facility] Comment on above: Performed By: #### C BC #### [facility] [address] [place] [address] Dr. Nikky Man Platelet mean volume (Bld) [Entitic vol] 9.0 fL Critically low 9.5-13.5 [facility] Comment on above: Performed By: #### C BC #### [facility] [address] [place] [address] Dr. Nikky Man PLT 154 103/ul Normal 150-450 [facility] Comment on above: Performed By: #### C BC #### [facility] [address] [place] [address] Dr. Nikky Man RBC 5.05 106/ul Normal 4.70-6.10 [facility] Comment on above: Performed By: #### C BC #### [facility] [address] [place] [address] Dr. Nikky Man WBC 6.9 103/ul Normal 4.0-11.0 [facility] Comment on above: Performed By: #### C BC #### [facility] [address] [place] [address] Dr. Nikky Man GLYCOHEMOGLOBIN A1Con 2022 ADA RECOMMENDATION SEE BELOW Normal [facility] Comment on above: Result Comment: ADA RECOMMENDED LIMIT 4.0 - 6.0 ADA THERAPEUTIC TARGET < 7.0 ACTION SUGGESTED > 7.0 Performed By: #### A 1C #### [facility] [address] [place] [address] Dr. Nikky Man Glucose [Mass/Vol] 137 mg/dL Normal [facility] Comment on above: Performed By: #### A 1C #### [facility] [address] [place] [address] Dr. Nikky Man HbA1c (Bld) [Mass fraction] 6.4 % Critically high 4.5-6.2 [facility] Comment on above: Performed By: #### A 1C #### [facility] [address] [place] [address] Dr. Nikky Man LIPID PROFILEon 02-22-2023 CHOL-HDL RATIO NORM SEE BELOW Normal [facility] Comment on above: Result Comment: 3.3 - 4.4 LOW RISK 4.4 - 7.1 AVERAGE RISK 7.1 - 11.0 MODERATE RISK >11.0 HIGH RISK Performed By: #### C MP, LIPID #### [facility] [address] [place] [address] Dr. Nikky Man Cholesterol [Mass/Vol] 135 mg/dL Normal <=200 [facility] Comment on above: Performed By: #### C MP, LIPID #### [facility] [address] [place] [address] Dr. Nikky Man Cholesterol in HDL [Mass/Vol] 30 mg/dL Critically low 40-60 [facility] Comment on above: Performed By: #### C MP, LIPID #### [facility] [address] [place] [address] Dr. Nikky Man Cholesterol in LDL [Mass/Vol] 50.6 mg/dL Normal [facility] Comment on above: Performed By: #### C MP, LIPID #### [facility] [address] [place] [address] Dr. Nikky Man Cholesterol.total /Cholesterol in HDL [Mass ratio] 4.5 {ratio} Normal [facility] Comment on above: Performed By: #### C MP, LIPID #### [facility] [address] [place] [address] Dr. Nikky Man HDL NORMAL > or = 60 mg/dl - LO W CARDIOVASCULAR RISK <40 mg/dl - HIGH CARDIOVASCULAR RISK Normal [facility] Comment on above: Performed By: #### C MP, LIPID #### [facility] [address] [place] [address] Dr. Nikky Man LDL CALC NORMAL SEE BELOW Normal [facility] Comment on above: Result Comment: <100 mg/dl OPTIMAL 100 - 129 mg/dl NEAR OR ABOVE OPTIMAL 130 - 159 mg/dl BORDERLINE HIGH 160 - 189 mg/dl HIGH >190 mg/dl VERY HIGH Performed By: #### C MP, LIPID #### [facility] [address] [place] [address] Dr. Nikky Man Triglyceride [Mass/Vol] 272 mg/dL Critically high <=150 [facility] Comment on above: Performed By: #### C MP, LIPID #### [facility] [address] [place] [address] Dr. Nikky Man VLDL CALC 54.4 mg/dL Normal [facility] Comment on above: Performed By: #### C MP, LIPID #### [facility] [address] [place] [address] Dr. Nikky Man MICROALBUMIN, RAND URon 04-0 mALB 13.2 mg/L Normal <=30.0 [facility] Comment on above: Performed By: #### M ALBR #### [facility] [address] [place] [address] Dr. Nikky Man PROF 14(COMP METB)on 023 Albumin [Mass/Vol] 3.9 g/dL Normal 3.4-5.0 [facility] Comment on above: Performed By: #### C MP, LIPID #### [facility] [address] [place], [place] [id number] Dr. Nikky Man Albumin/Globulin [Mass ratio] 1.2 {ratio} Normal [facility] Comment on above: Performed By: #### C MP, LIPID #### [facility] [address] [place] [address] Dr. Nikky Man ALP [Catalytic activity/Vol] 87 U/L Normal 46-116 [facility] Comment on above: Performed By: #### C MP, LIPID #### [facility] [address] [place] [address] Dr. Nikky Man ALT [Catalytic activity/Vol] 29 U/L Normal 16-63 [facility] Comment on above: Performed By: #### C MP, LIPID #### [facility] [address] [place] [address] Dr. Nikky Man Anion gap [Moles/Vol] 13.2 mmol/L Normal [facility] Comment on above: Performed By: #### C MP, LIPID #### [facility] [address] [place] [address] Dr. Nikky Man AST [Catalytic activity/Vol] 19 U/L Normal 15-37 [facility] Comment on above: Performed By: #### C MP, LIPID #### [facility] [address] [place] [address] Dr. Nikky Man Bilirubin [Mass/Vol] 0.4 mg/dL Normal 0.2-1.0 [facility] Comment on above: Performed By: #### C MP, LIPID #### [facility] [address] [place] [address] Dr. Nikky Man Calcium [Mass/Vol] 9.3 mg/dL Normal 8.5-10.1 [facility] Comment on above: Performed By: #### C MP, LIPID #### [facility] [address] [place] [address] Dr. Nikky Man Chloride [Moles/Vol] 103 mmol/L Normal 98-107 [facility] Comment on above: Performed By: #### C MP, LIPID #### [facility] [address] [place] [address] Dr. Nikky Man CO2 [Moles/Vol] 28.7 mmol/L Normal 21.0-32.[address] [facility] Comment on above: Performed By: #### C MP, LIPID #### [facility] [address] [address] [address] Nikky Man Creatinine [Mass/Vol] 1.54 mg/dL Critically high 0.70-1.30 [facility] Comment on above: Performed By: #### C MP, LIPID #### [facility] [address] [address] [address] Nikky Man EGFR-AF TAIWANESE 56 mL/min/1.73m2 Critically low >=60 [facility] Comment on above: Performed By: #### C MP, LIPID #### [facility] [address] [place] [address] Dr. Nikky Man EGFR-NON AF TAIWANESE 46 mL/min/1.73m2 Critically low >=60 [facility] Comment on above: Performed By: #### C MP, LIPID #### [facility] [address] [place] [address] Dr. Nikky Man Globulin (S) [Mass/Vol] 3.2 g/dL Normal [facility] Comment on above: Performed By: #### C MP, LIPID #### [facility] [address] [place] [address] Dr. Nikky Man Glucose [Mass/Vol] 179 mg/dL Critically high 74-106 [facility] Comment on above: Performed By: #### C MP, LIPID #### [facility] [address] [place] [address] Dr. Nikky Man Potassium [Moles/Vol] 4.9 mmol/L Normal 3.5-5.1 [facility] Comment on above: Performed By: #### C MP, LIPID #### [facility] [address] [place] [address] Dr. Nikky Man Protein [Mass/Vol] 7.1 g/dL Normal 6.4-8.2 [facility] Comment on above: Performed By: #### C MP, LIPID #### [facility] [address] [place], [place] [id number] Dr. Nikky Man Sodium [Moles/Vol] 140 mmol/L Normal 136-145 [facility] Comment on above: Performed By: #### C MP, LIPID #### [facility] [address] [address] [address] Nikky Man Urea nitrogen [Mass/Vol] 20.0 mg/dL Critically high 7.0-18.0 [facility] Comment on above: Performed By: #### C MP, LIPID #### [facility] [address] [address] [address] Nikky Man Urea nitrogen/Creatini ne [Mass ratio] 13.0 mg/mg Normal [facility] Comment on above: Performed By: #### C MP, LIPID #### [facility] [address] [address] [address] Nikky Man XR femur RT 2V*on 02-14-2023 XR femur RT 2V* [facility] [place] [address] [place] [address] XRay Report Signed Patient: Dat Lopez JR MR#: [id number] : 1960 Acct:[id number] Age/Sex: 62 / M ADM Date: 02/14/23 Loc: [facility] Room: Type: [facility] Attending Dr: Alfonzo Ashford II, MD Copies [...] 4:22 PM Dictation Location: RADIO-PC-12 Transcribed By: PWS 02/14/23 162 Dictated By: Mitul Boston Jr, DO 02/14/23 162 Signed By: 02/14/23 162 Normal [facility] XR femur RT 2V* [facility] [employer] Other XR femur RT 2V* [facility] [place] [facility] [employer] Other XR femur RT 2V* [address] [place] [address] No [facility] [employer] Other XR femur RT 2V* [place] [address] [address] [facility] [employer] Other XR femur RT 2V* XRay Report [facility] [employer] Other XR femur RT 2V* Signed [employer] Other XR femur RT 2V* Patient: Tk Lopez MR#: [id number] [place] [employer] Other XR femur RT 2V* [id number] [place] [employer] Other XR femur RT 2V* : 1960 Acct:[id number] [place] [employer] Other XR femur RT 2V* Age/Sex: 62 / M ADM Date: 02/14/23 [place] [employer] Other XR femur RT 2V* Loc: [facility] Room: Type : [facility] [employer] Other XR femur RT 2V* Attending Dr: Alfonzo Ashford II, MD [employer] Other XR femur RT 2V* Copies to: Alfonzo Ashford MD [employer] Other XR femur RT 2V* Ordering Provider: Sil Ashford MD [employer] Other XR femur RT 2V* Date of Service: 02/14/23 [employer] Other XR femur RT 2V* XR/XR femur RT 2V*: Post-traumatic osteoarthritis of right knee [employer] Other XR femur RT 2V* Right femur 2 views. [employer] Other XR femur RT 2V* Reason for exam: Follow-up ORIF right femur fracture. [employer] Other XR femur RT 2V* COMPARISON: Right kn ee series 12/14/2022 [employer] Other XR femur RT 2V* FINDINGS: Hardware fixation is seen involving the mid to distal femur without evidence of hardware [employer] Other XR femur RT 2V* complication. No acu te fracture line is noted. Residual deformity seen from a prior fracture [employer] Other XR femur RT 2V* involving the mid fe mur. Visualized knee joint demonstrates degenerative change. Right hip joint [employer] Other XR femur RT 2V* demonstrates minimal degenerative change. [employer] Other XR femur RT 2V* X R/XR femur RT 2V* [employer] Other XR femur RT 2V* IMPRESSION: No evide nce of hardware complication. No acute fracture line is seen. [employer] Other XR femur RT 2V* Impression dictated by: Mitul Boston Jr., D.ODheeraj02/14/2023 4:22 PM [employer] Other XR femur RT 2V* Dictation Location: [place] [address] [employer] Other XR femur RT 2V* Transcribed By: KI 02/14/23 [facility] [employer] Other XR femur RT 2V* Dictated By: Mitul Boston Jr, DO 02/14/23 [facility] [employer] Other XR femur RT 2V* Signed By: [employer] [employer] Other XR femur RT 2V* 02/14/23 1622 [employer] Other Ambulatory Visit Summaryon 0 12-18-2022 Ambulatory Visit Summary DAT LOPEZ :1960 Visit Date:12/18/2022 Ambulatory Visit Instructions Your Diagnosis History of kidney stones Elevated PSA BPH with obstruction/lower urinary tract symptoms Prostate nodule History of bladder cancer Erectile dysfunction Tests Performed Urnls Dip Stick Auto w/o Microscopy POC 11092 XR Abdomen 1 View -- Results Pending [...] Pelon COLES MD Where: [facility] Patient Educationon 12-18-19 23 Patient Education Urology Benign Prostatic Hyperplasia Benign [...] Follow these instructions at home: ? Take ifer-nqh-dbufqhx and prescription medicines only as told by [...] You d (more content not included)... Normal [facility] Urology Office/Clinic Noteon 12-18-2022 Urology Office/Clinic Note [...] Effer-K 25 mEq BID. Rx sent to [facility]. Follow up in 6 mos with KUB [...] Pelon Mujica, URL [facility] [address] [place] [address]- Additional Instructions: f/u 6 mos w/KUB Patient [...] of pro (more content not included)... Normal [facility] Comment on above: Result Comment: Elec tronically Signed By: SANKET PRECIADO, Pelon R\.br\Date and Time Signed: 12/18/22 16:05 EST\.br\Electronically Co-Signed By: Jocelyne Moore\.br\Date and Time Co-Signed: 12/18/22 16:01 EST XR knee RT 4V*on 12-14-2022 XR knee RT 4V* [facility] [place] [address] [place] [address] XRay Report Signed Patient: Dat Lopez JR MR#: [id number] : 1960 Acct:[id number] Age/Sex: 62 / M ADM Date: 12/14/22 Loc: [facility] Room: Type: [facility] Attending Dr: Alfonzo Ashford II, MD Copies to: Alfonzo Ashford MD Ordering Provider: Alfonzo Ashford MD Date of Service: 12/14/22 XR/XR hip LT min 2V(w/wo pelvis)*: Left hip pain ([id number]) XR/XR knee RT 4V*: Acute pain of [...] PROCESS.. Impression dictated by: Mitul Boston Jr., D.O.12/14/2022 3:37 PM Dictation Location: RADIO-PC-14 Transcribed By: [facility] 12/14/22 1537 Dictated By: Mitul Boston Jr, DO 12/14/22 1534 Signed By: 12/14/22 1537 Normal [facility] XR knee RT 4V* [facility] [employer] Other XR knee RT 4V* [facility] [employer] Other XR knee RT 4V* [address] [place] [address] [employer] Other XR knee RT 4V* [place] [address] No rt [employer] Other XR knee RT 4V* XRay Report [place] Other XR knee RT 4V* Signed [employer] Other XR knee RT 4V* Patient: Tk Lopez MR#: [id number] [place] [employer] Other XR knee RT 4V* [address] [employer] Other XR knee RT 4V* : 1960 Acct:[id number] [employer] Other XR knee RT 4V* Age/Sex: 62 / M ADM Date: 12/14/22 [employer] Other XR knee RT 4V* Loc: [facility] Room: Type : [facility] [employer] Other XR knee RT 4V* Attending Dr: Alfonzo Ashford II, MD [employer] Other XR knee RT 4V* Copies to: Alfonzo Ashford MD [employer] Other XR knee RT 4V* Ordering Provider: Sil Ashford MD [place] [employer] Other XR knee RT 4V* Date of Service: 12/14/22 [employer] Other XR knee RT 4V* XR/XR hip LT min 2V(w/wo pelvis)*: Left hip pain [employer] Other XR knee RT 4V* ([id number]) XR/XR knee RT 4V*: Acute pain of right knee [employer] Other XR knee RT 4V* LEFT HIP - 2 views: Right knee 4 views [employer] Other XR knee RT 4V* CLINICAL HISTORY: Le ft hip pain for months. Groin pain. [employer] Other XR knee RT 4V* COMPARISON: None [facility] [employer] Other XR knee RT 4V* FINDINGS: Left hip: No acute bony process or significant degenerative change of the hips. [employer] Other XR knee RT 4V* Right knee: Partiall y visualized hardware is seen involving the distal femur without evidence of [employer] Other XR knee RT 4V* hardware complicatio n. No acute bony process is seen. Small knee joint effusion. Mild [employer] Other XR knee RT 4V* Degenerative changes with weightbearing and patellofemoral joint space narrowing. [employer] Other XR knee RT 4V* X R/XR hip LT min 2V(w/wo pelvis)* [employer] Other XR knee RT 4V* IMPRESSION: [facility] [employer] Other XR knee RT 4V* MILD DEGENERATIVE CH ANGES OF THE RIGHT KNEE WITHOUT ACUTE BONY PROCESS.. [employer] Other XR knee RT 4V* Impression dictated by: Mitul Boston Jr., Nadia12/14/2022 3:37 PM [employer] Other XR knee RT 4V* Dictation Location: [facility]- [employer] Other XR knee RT 4V* Transcribed By: PWS 12/14/22 1537 [employer] Other XR knee RT 4V* Dictated By: Mitul Boston Jr, DO 12/14/22 1534 [employer] Other XR knee RT 4V* Signed By: [employer] Other XR knee RT 4V* 12/14/22 1537 [employer] Other PSA, FREE AND TOTAL RATIOon 12-06-2022 % Free PSA 28.4 % Normal [facility] Comment on above: Result Comment: The table [...] men. Performed By: #### P SAFREE #### [facility] [address] [place] [address] Dr. Nikky Man Prostate specific Ag [Mass/Vol] 10.5 ng/mL Critically high 0.0-4.0 [facility] Comment on above: Result Comment: Inderjit LO methodology. . According to the [employer] [employer], Serum PSA should decrease and [...] disease. Performed By: #### P SAFREE #### [facility] [address], [place] [address] Dr. Nikky Man PSA, Free 2.98 ng/mL Normal N/A [facility] Comment on above: Result Comment: Inderjit LO methodology. Performed By: #### P SAFREE #### [facility] [address], [place] [address] ABD/PELVIS WO CONon [...] by: GEMA OTTO Date: 2022-09-27 15:14 Normal [facility] CNOVon 09-26-2022 CNOV Office Visit (URFMOB ) ----- DAT LOPEZ ([id number]) 1960 M Date Time Provider Department 09/26/22 2:30 PM NOELLE VEGA During your visit today, we [...] patient: Yes Procedure confirmed with physician and support analyst: Yes Sign In: History and Physical Exam [...] care C (more content not included)... Normal [facility] UA DIP, URINE (POC)on 2021 BILIRUBIN UA (POCT) Negative Negative [facility] CLARITY UA (POCT) Cloudy [facility] COLOR UA (POCT) Yellow [facility] GLUCOSE UA (POCT) Negative Negative mg/dL [facility] HEMOGLOBIN/BLOOD UA (POCT) Large Abnormal Negative [facility] KETONE UA (POCT) Negative Negative mg/dL [facility] LEUKOCYTES UA (POCT) Small Abnormal Negative [facility] NITRITE UA (POCT) Negative Negative [facility] PH UA (POCT) 5.5 4.5 - 8.[address] [facility] Protein Ql (U) 30 mg/dL Abnormal Negative mg/dL [facility] SPECIFIC GRAVITY UA (POCT) 1.020 1.005 - 1.[address] [facility] UROBILINOGEN UA (POCT) 0.2 E.U./dL Normal E.U./dL [facility] Basic metabolic 2000 panelon 09-12-2022 Anion gap [Moles/Vol] 9 mmol/L Normal - [facility] Comment on above: Order Comment: Speci men Type: BLOOD SPECIMENOrdering Facility: [facility] Address: [address] [place] [address] [place] [address] Performed By: #### 2 4321-2 ####[facility]ORY[facility] [id number] [place] [address] [place] Calcium [Mass/Vol] 8.6 mg/dL Normal 8.5-10.2 [facility] Comment on above: Order Comment: Speci men Type: BLOOD SPECIMENOrdering Facility: [facility] Address: [address] [place] [address] Performed By: #### 2 4321-2 ####[facility]ORYCLIA [id number] [place] [address] [place] Chloride [Moles/Vol] 106 mmol/L High 97-105 [facility] Comment on above: Order Comment: Speci men Type: BLOOD SPECIMENOrdering Facility: [facility] Address: [address] [place] [address] Performed By: #### 2 4321-2 ####[facility] [id number] [place] [address] [place] CO2 [Moles/Vol] 24 mmol/L Normal 22-30 [facility] ital Comment on above: Order Comment: Speci men Type: BLOOD SPECIMENOrdering Facility: [facility] Address: [address] [place] [address] Performed By: #### 2 4321-2 ####[facility] [id number] [place] [address] [place] Creatinine [Mass/Vol] 1.75 mg/dL High 0.73-1.22 [facility] Comment on above: Order Comment: Speci men Type: BLOOD SPECIMENOrdering Facility: [facility] Address: [address] [place] [address] Performed By: #### 2 4321-2 ####[facility] [id number] [place] [address] [place] ESTIMATED GLOMERULAR FILTRATION RATE 44 mL/min/1.73m??? Low >=60 [facility] Comment on above: Order Comment: Speci men Type: BLOOD SPECIMENOrdering Facility: [facility] Address: [address] [phone] Result Comment: Carole mated Glomerular Filtration Rate [...] actual GFR. Performed By: #### 2 4321-2 ####[facility]ATORYCLIA [id number] [place] [address] [place] Glucose [Mass/Vol] 169 mg/dL High 74-99 [facility] Comment on above: Order Comment: Specmarco a arrington Type: BLOOD SPECIMENOrdering Facility: [facility] Address: [address] [address] Result Comment: The [place] Diabetes Association (ADA) provides guidance for cutoff [...] Standards of Medical Care in Diabetes 2016, [place] [employer]. Diabetes Care. 2016.39(Suppl 1). Performed By: #### 2 4321-2 ####[facility]ATORYCLIA [id number] [place] [address] [place] Potassium [Moles/Vol] 4.7 mmol/L Normal 3.7-5.1 [facility] Comment on above: Order Comment: Demar arrington Type: BLOOD SPECIMENOrdering Facility: [facility] Address: [address] [phone] Performed By: #### 2 4321-2 ####[facility]ORATORYCLIA [id number] [place] [address] [facility] [place] Sodium [Moles/Vol] 139 mmol/L Normal 136-144 [facility] Comment on above: Order Comment: Speci men Type: BLOOD SPECIMENOrdering Facility: [facility] Address: [address] [place], [place] [address] Performed By: #### 2 4321-2 ####[facility]ORYCLIA [id number] [place] [address] [place] Urea nitrogen [Mass/Vol] 26 mg/dL High 9-24 [facility] Comment on above: Order Comment: Speci men Type: BLOOD SPECIMENOrdering Facility: [facility] Address: [address] [place], [place] [address] Performed By: #### 2 4321-2 ####[facility]ORATORYCLIA [id number] [address] [place] CBC panel Auto (Bld)on 09-12 Erythrocyte distribution width (RBC) [Ratio] 13.4 % Normal 11.5-15.0 [facility] Comment on above: Order Comment: Speci men Type: BLOOD SPECIMEN [facility] Address: [address] [place], [place] [address] Performed By: #### 5 8410-2 #### [facility] CLIA [id number] [place] Hematocrit (Bld) [Volume fraction] 35.7 % Low 39.0-51.0 [facility] Comment on above: Order Comment: Speci men Type: BLOOD SPECIMEN [facility] Address: [address] [place], [place] [address] Performed By: #### 5 8410-2 #### [facility] CLIA [id number] [place] Hemoglobin (Bld) [Mass/Vol] 11.5 g/dL Low 13.0-17.0 [facility] Comment on above: Order Comment: Speci men Type: BLOOD SPECIMEN [facility] Address: [address] [place], [place] [phone] Performed By: #### 5 8410-2 #### [facility] [place] [id number] MCH (RBC) [Entitic mass] 26.2 pg Normal 26.0-34.0 [facility] Comment on above: Order Comment: Speci men Type: BLOOD SPECIMEN [facility] Address: [address] [place] [address] Performed By: #### 5 8410-2 #### [facility] [place] [id number] [place] MCHC (RBC) [Mass/Vol] 32.2 g/dL Normal 30.5-36.0 [facility] Comment on above: Order Comment: Speci men Type: BLOOD SPECIMEN [facility] Address: [address] [place] [address] Performed By: #### 5 8410-2 #### [facility] [place] [id number] [place] MCV (RBC) [Entitic vol] 81.3 fL Normal 80.0-100.0 [facility] Comment on above: Order Comment: Speci men Type: BLOOD SPECIMEN [facility] Address: [address] [place] [address] Performed By: #### 5 8410-2 #### [facility] [place] [id number] Nucleated RBC (Bld) [#/Vol] 10*3/uL Normal <0.01 [facility] Comment on above: Order Comment: Speci men Type: BLOOD SPECIMEN [facility] Address: [address] [place] [address] Performed By: #### 5 8410-2 #### [facility] [place] [id number] [place] Platelet mean volume (Bld) [Entitic vol] 9.3 fL Normal 9.0-12.7 [facility] Comment on above: Order Comment: Speci men Type: BLOOD SPECIMEN [facility] Address: [address] [place], [place] [address] Performed By: #### 5 8410-2 #### [facility] CLIA [id number] [place] [address] [place] Platelets (Bld) [#/Vol] 134 10*3/uL Low 150-400 [facility] Comment on above: Order Comment: Speci men Type: BLOOD SPECIMEN [facility] Address: [address] [place], [place] [address] Performed By: #### 5 8410-2 #### [facility] CLIA [id number] [place] [address] [place] RBC (Bld) [#/Vol] 4.39 10*6/uL Normal 4.20-6.00 [facility] Comment on above: Order Comment: Speci men Type: BLOOD SPECIMEN [facility] Address: [address] [place], [place] [address] Performed By: #### 5 8410-2 #### [facility] [place] [id number] [id number] [place] WBC (Bld) [#/Vol] 9.95 10*3/uL Normal 3.70-11.00 [facility] Comment on above: Order Comment: Speci men Type: BLOOD SPECIMEN [facility] Address: [address] [place], [place] [address] Performed By: #### 5 8410-2 #### [facility] CLIA [id number] CNDSon 09-12-2022 CNDS HNO ID: [id number] Author: Noelle Vega MD Service: Urology Author Type: Physician Type: Discharge Summary Filed: 09/13/2022 1:41 PM Note Text: [facility] [place] [id number] or ([phone]) [facility] DISCHARGE SUMMARY Patient Name: Dat Lopez Patient [...] Take 100 mg by mouth once daily. BASAGLAR MIGUEL ANGEL U-100 INSULIN 100 unit/mL (3 mL) INJECT 50 UNITS SUBCUTANEOUSLY ONCE A DAY Tadalafil 10 mg Take 10 mg by mouth once daily. coenzyme Q10 (COENZYME Q-10) 100 mg Take 100 mg by mouth once daily. multivitamin (MULTI-DAY ORAL) Take by mouth. melatonin 20 mg Take 20 mg by mouth. No future appointments. Valdo Mcghee MD PGY-5, Urology Pager: [phone] [facility] STAFF PHYSICIAN NOTE OF PERSONAL INVOLVEMENT IN [...] Staff - Urology September 13, 2022 Normal [facility] HISTORY PHYSICALon HISTORY PHYSICAL HNO ID: [id number] Author: Fani Vallejo APRN.CNP Service: Hospital Medicine [...] 12, 2022 6:02 AM ----- DEPARTMENT OF HOSPITAL MEDICINE INITIAL CONSULT SERVICE DATE: 09/11/2022 SERVICE TIME: 7:50 PM Primary Care Physician: Sp Chowdary, NIGHT AND WEEKEND COVERAGE: [place] COVERAGE: Days: [phone], please contact via [employer] Nights: [phone] - 3rd floor: please page Hospitalist night cover [phone] - 4th floor: please page Hospitalist night cover [phone] - 5th floor: please page Hospitalist night cover [phone] REASON FOR CONSULT: Hyperkalemia REQUESTING PHYSICIAN: Carmella [...] once daily., Disp: , Rfl: , 09/10/2022 BASAGLAR KWIKPEN U-100 INSULIN 100 unit/mL (3 mL), INJECT [...] H P (more content not included)... Normal [facility] NURSING PROGon 09-12-2022 NURSING PROG HNO ID: [id number] Author: Taylor Barr RN Service: Nursing Author Type: Registered Nurse [...] discharge orders reviewed with pt understanding. Normal [facility] POTASSIUM BLDon 09-12-2022 Potassium [Moles/Vol] 4.9 mmol/L Normal 3.7-5.1 [facility] Comment on above: Order Comment: Speci men Type: BLOOD SPECIMENOrdering Facility: [facility] Address: [address] [place] [address] Performed By: #### K 1 ####[facility]ORATORYCLIA [id number] [facility] [place] [address] [facility] ANES POSTPROC EVALon 022 ANES POSTPROC EVAL HNO ID: [id number] Author: Melisa Rangel MD Service: Anesthesiology Author [...] September 11, 2022 TIME: 1:00 PM CSN: [id number] [facility] ANES PRE-OPon 09-11-2022 ANES PRE-OP HNO ID: [id number] Author: Melisa Rangel MD Service: Anesthesiology Author [...] and consent discussed: yes. Patient / Responsible [employer] agrees to proceed: yes Patient / Surrogate [...] September 11, 2022 TIME: 7:15 AM CSN: [id number] [facility] BRIEF OP NOTon 09-11-2022 BRIEF OP NOT HNO ID: [id number] Author: Roman Ornelas MD Service: Urology Author Type: Fellow Type: Brief Op Note Filed: 09/11/2022 11:27 AM Note Text: UROLOGY SERVICE BRIEF OPERATIVE NOTE LOG ID: [id number] Surgery/Procedure Date: 09/11/2022 Incision/Procedure Start Time: 8:06 AM Incision Close/Procedure End Time: 11:12 AM Patient Age: [age] year old Surgeon(s)/Proceduralist( s) and Flight Control Specialist(s): Surgeon(s) and Role: * Noelle Vega MD [...] x 26cm JJ left ureteral stent [address] Cultures: None Findings: [...] 11, 2022 TIME: 11:21 AM PAGER/CONTACT #: [phone] Normal [facility] Basic metabolic 2000 panelon 09-11-2022 Anion gap [Moles/Vol] 9 mmol/L Normal -18 [facility] Comment on above: Order Comment: Speci men Type: BLOOD SPECIMEN [facility] Address: [address] [place] [address] Performed By: #### 5 8410-2 #### [facility] CLIA [id number] [address] [place] [address] [place] Calcium [Mass/Vol] 8.6 mg/dL Normal 8.5-10.2 [facility] Comment on above: Order Comment: Speci men Type: BLOOD SPECIMEN [facility] Address: [address] [place], [place] [address] Performed By: #### 5 8410-2 #### [facility] CLIA [id number] [address] [place] [address] [place] Chloride [Moles/Vol] 105 mmol/L Normal 97-105 [facility] Comment on above: Order Comment: Speci men Type: BLOOD SPECIMEN [facility] Address: [address] [place], [place] [address] Performed By: #### 5 8410-2 #### [facility] CLIA [id number] [address] [place] [address] [place] CO2 [Moles/Vol] 22 mmol/L Normal 22-30 [facility] ital Comment on above: Order Comment: Speci men Type: BLOOD SPECIMEN [facility] Address: [address] [place], [place] [address] Performed By: #### 5 8410-2 #### [facility] CLIA [id number] [address] [place] [address] [place] Creatinine [Mass/Vol] 1.67 mg/dL High 0.73-1.22 [facility] Comment on above: Order Comment: Speci men Type: BLOOD SPECIMEN [facility] Address: [address] [place], [place] [address] Performed By: #### 5 8410-2 #### [facility] CLIA [id number] [address] [place] [address] [place] ESTIMATED GLOMERULAR FILTRATION RATE 47 mL/min/1.73m??? Low >=60 [facility] Comment on above: Order Comment: Speci men Type: BLOOD SPECIMEN [facility] Address: [address] [place], [place] [address] Result Comment: Carole mated Glomerular Filtration Rate [...] GFR. Performed By: #### 5 8410-2 #### [facility] CLIA [id number] [address] [place] [address] [place] Glucose [Mass/Vol] 214 mg/dL High 74-99 [facility] Comment on above: Order Comment: Demar arrington Type: BLOOD SPECIMEN [facility] Address: [address] [address] Result Comment: The [place] Diabetes Association (ADA) provides guidance for cutoff [...] Standards of Medical Care in Diabetes 2016, [place] [employer]. Diabetes Care. 2016.39(Suppl 1). Performed By: #### 5 8410-2 #### [facility] CLIA [id number] [place] [address] [place] Potassium [Moles/Vol] 5.7 mmol/L High 3.7-5.1 [facility] Comment on above: Order Comment: Demar arrington Type: BLOOD SPECIMEN [facility] Address: [address] [facility] [phone] Performed By: #### 5 8410-2 #### [facility] CLIA [id number] [address] [place] [address] [place] Sodium [Moles/Vol] 136 mmol/L Normal 136-144 [facility] Comment on above: Order Comment: Speci men Type: BLOOD SPECIMEN [facility] Address: [address] [place], [place] [address] Performed By: #### 5 8410-2 #### [facility] CLIA [id number] [address] [place] [address] [place] Urea nitrogen [Mass/Vol] 20 mg/dL Normal 9-24 [facility] Comment on above: Order Comment: Speci men Type: BLOOD SPECIMEN [facility] Address: [address] [place], [place] [address] Performed By: #### 5 8410-2 #### [facility] CLIA [id number] [address] [place] [address] [facility] [place] CALCULI ANALYSISon 2 Calculus analysis [Interp] Normal [facility] Comment on above: Order Comment: Speci men Type: CALCULUS SPECIMENOrdering Facility: [facility] Address: [address] [place], [place] [address] Result Comment: This test was developed and its performance characteristics determined by [facility]'s [facility] [place] (-[facility]). It has not been cleared or approved by the FDA. -[facility] is regulated under CLIA as qualified to perform high-complexity testing. This test is used for clinical purposes. It should not be regarded as investigational or for research. Performed By: #### C SA ####[facility] LAB[facility] [id number] [place] [address] [place] CALCULUS COLOR BROWN Normal [facility] Comment on above: Order Comment: Speci men Type: CALCULUS SPECIMENOrdering Facility: [facility] Address: [address] [place], [place] [address] Performed By: #### C SA ####[facility] LABCLIA [id number] [address] [place] CALCULUS COMPOSITION 1 70% Calcium Oxalate Monohydrate Normal [facility] Comment on above: Order Comment: Speci men Type: CALCULUS SPECIMENOrdering Facility: [facility] Address: [address] [place], [place] [address] Performed By: #### C SA ####[facility] LAB[facility] [id number] [address] [place] CALCULUS COMPOSITION 2 20% Calcium Oxalate Dihydrate Normal [facility] Comment on above: Order Comment: Speci men Type: CALCULUS SPECIMENOrdering Facility: [facility] Address: [address] [place], [place] [address] Performed By: #### C SA ####[facility] LAB[facility] [id number] [address] [place] CALCULUS COMPOSITION 3 10% Minor Components [facility] Comment on above: Order Comment: Speci men Type: CALCULUS SPECIMENOrdering Facility: [facility] Address: [address] [place], [place] [address] Performed By: #### C SA ####[facility] LAB[facility] [id number] [address] [place] CALCULUS SIZE AND WT Multiple pieces. 2.8188 GRAMS Normal [facility] Comment on above: Order Comment: Speci men Type: CALCULUS SPECIMENOrdering Facility: [facility] Address: [address] [place], [place] [address] Performed By: #### C SA ####[facility] LABCL[facility] [id number] [address] [place] CALCULUS TYPE CALCULI/CALCULUS Normal [facility] Comment on above: Order Comment: Speci men Type: CALCULUS SPECIMENOrdering Facility: [facility] Address: [address] [place] [address] Performed By: #### C SA ####[facility] LABCLIA [id number] [address] [place] CBC panel Auto (Bld)on 09-11 Erythrocyte distribution width (RBC) [Ratio] 13.8 % Normal 11.5-15.0 [facility] Comment on above: Order Comment: Speci men Type: BLOOD SPECIMEN [facility] Address: [address] [place] [address] Performed By: #### 5 8410-2 #### [facility] [place] [id number] [address] [place] Hematocrit (Bld) [Volume fraction] 40.1 % Normal 39.0-51.0 [facility] Comment on above: Order Comment: Speci men Type: BLOOD SPECIMEN [facility] Address: [address] [place] [address] Performed By: #### 5 8410-2 #### [facility] [place] [id number] [address] [place] [address] [place] Hemoglobin (Bld) [Mass/Vol] 12.3 g/dL Low 13.0-17.0 [facility] Comment on above: Order Comment: Speci men Type: BLOOD SPECIMEN [facility] Address: [address] [place] [address] Performed By: #### 5 8410-2 #### [facility] [place] [id number] [address] [place] [address] [place] MCH (RBC) [Entitic mass] 25.6 pg Low 26.0-34.0 [facility] Comment on above: Order Comment: Speci men Type: BLOOD SPECIMEN [facility] Address: [address] [place], [place] [address] Performed By: #### 5 8410-2 #### [facility] [place] [id number] [place] MCHC (RBC) [Mass/Vol] 30.7 g/dL Normal 30.5-36.0 [facility] Comment on above: Order Comment: Speci men Type: BLOOD SPECIMEN [facility] Address: [address] [place] [address] Performed By: #### 5 8410-2 #### [facility] CLIA [id number] OF [facility] MCV (RBC) [Entitic vol] 83.5 fL Normal 80.0-100.0 [facility] Comment on above: Order Comment: Speci men Type: BLOOD SPECIMEN [facility] Address: [address] [place], [place] [address] Performed By: #### 5 8410-2 #### [facility] [place] [id number] [address] [place] Nucleated RBC (Bld) [#/Vol] 10*3/uL Normal <0.01 [facility] Comment on above: Order Comment: Speci men Type: BLOOD SPECIMEN [facility] Address: [address] [place] [address] Performed By: #### 5 8410-2 #### [facility] IA [id number] [address] [place] [address] [place] Platelet mean volume (Bld) [Entitic vol] 9.5 fL Normal 9.0-12.7 [facility] Comment on above: Order Comment: Speci men Type: BLOOD SPECIMEN [facility] Address: [address] [place], [place] [address] Performed By: #### 5 8410-2 #### [facility] [place] [id number] [address] [place] [address] [place] Platelets (Bld) [#/Vol] 137 10*3/uL Low 150-400 [facility] Comment on above: Order Comment: Speci men Type: BLOOD SPECIMEN Ordering Facility: [facility] Address: [address] [place], [place] [address] Performed By: #### 5 8410-2 #### [facility] [place] [id number] [address] [place] [address] [place] RBC (Bld) [#/Vol] 4.80 10*6/uL Normal 4.20-6.00 [facility] Comment on above: Order Comment: Speci men Type: BLOOD SPECIMEN Ordering Facility: [facility] Address: [address] [place] [address] Performed By: #### 5 8410-2 #### [facility] CLIA [id number] [facility] [place], [place] [address] [place] [address] OF [facility] WBC (Bld) [#/Vol] 7.34 10*3/uL Normal 3.70-11.00 [facility] Comment on above: Order Comment: Speci men Type: BLOOD SPECIMEN Ordering Facility: [facility] Address: [address] [place] [address] Performed By: #### 5 8410-2 #### [facility] IA [id number] [address] [place] [address] [facility] ECG COMPLETEon 09-11-2022 ECG COMPLETE Ventricular Rate : 9 0 BPM Atrial Rate : 90 BPM P-R Interval : 175 ms QRS Duration : 92 ms Q-T Interval : 360 ms QTC Calculation(Bazett) : 441 ms Calculated P Wapella : 42 degrees Calculated R Wapella : -16 degrees Calculated T Wapella : 29 degrees Sinus rhythm Borderline left axis deviation Abnormal R-wave progression, early transition Otherwise Normal ECG Confirmed by Rubén CURRIE RAVISANKAR ([id number]) on 09/15/2022 2:00:08 PM NAME : DAT LOPEZ PID : [id number] : 1960 Gender : Male Race : ORD : [id number] Procedure Date : Sep 11 2022 20:12:04 [...] Referred By : , Acquired by : [id number], Normal [facility] HISTORY PHYSICALon HISTORY PHYSICAL HNO ID: [id number] Author: Noelle Vega MD Service: Urology Author [...] Vega MD September 11, 2022 7:23 AM [facility] NURSING PROGon 09-11-2022 NURSING PROG HNO ID: [id number] Author: Oanh Mc RN Service: Nursing Author Type: Registered Nurse Type: Nursing Progress Note Filed: 09/11/2022 5:34 PM Note Text: Other: Page sent to surgical pager. K noted to be 5.8. Will await further instructions. LOPEZ 534- Potassium is 5.8 Thanks Oanh 5570 [facility] NURSING PROG HNO ID: [id number] Author: Malena Salvador RN Service: Nursing Author Type: Registered Nurse Type: Nursing Progress Note Filed: 09/11/2022 12:55 PM Note Text: Transfer Note: Patient transferred into room/unit 534 in stable condition. Actions taken: No futher actions taken at this time. Will continue to monitor and check with patient. [facility] NURSING PROG HNO ID: [id number] Author: Radha Rae RN Service: ? Author Type: Registered Nurse Type: Nursing Progress Note Filed: 09/11/2022 12:30 PM Note Text: Report from Kaushal Norton for coverage. Pt denies pain at this time. VSS. 1210 - Pt tolerating ice chips. 1225 - Pt continues to deny pain. Report called to [address] [place] [address] OPERATIVE NOon 09-11-2022 OPERATIVE NO HNO ID: [id number] Author: Noelle Vega MD Service: Urology Author Type: Physician Type: Operative Report Filed: 09/11/2022 12:07 PM Note Text: OPERATIVE/PROCEDURE REPORT LOG ID: [id number] SURGERY/PROCEDURE DATE: 09/11/2022 INCISION/PROCEDURE START TIME: 8:06 AM INCISION CLOSE/PROCEDURE END TIME: 11:12 AM SURGEON(S)/PROCEDURALIST( S) AND MEDICAL CARE ADMINISTRATOR(S): Surgeon(s) and Role: * Noelle Vega MD [...] larger stone burden in the upper pole. Automatic Equipment Technician images were obtained in 2 planes using [...] working wi (more content not included)... Normal [facility] 09-11-2022 Potassium [Moles/Vol] 5.7 mmol/L High 3.7-5.1 [facility] Comment on above: Order Comment: Speci men Type: BLOOD SPECIMEN Ordering Facility: [facility] Address: [address] [place] [address] Performed By: #### 5 8410-2 #### [facility] CLIA [id number] OF [facility] Potassium [Moles/Vol] 5.8 mmol/L High 3.7-5.1 [facility] Comment on above: Order Comment: Speci men Type: BLOOD SPECIMEN Ordering Facility: [facility] Address: [address] [place] [address] Performed By: #### 5 8410-2 #### [facility] CLIA [id number] STATES OF [facility] XR CHEST 1V FRONTAL PORTon 1 XR [...] Pulmonary vasculature is unremarkable. IMPRESSION: Bibasilar atelectasis. Engine Lathe Tender: PSCGurpreet Transcribe Date/Time: Sep 11 2022 12:00P Dictated by : CECE GALVIN MD This examination was interpreted and the report reviewed and electronically signed by: CECE GALVIN MD on Sep 11 2022 12:01PM EST [id number] Normal [facility] 25(OH)D3 SerPl-mCncon 2021 25-hydroxyvitamin D3 [Mass/Vol] 42.6 ng/mL Normal 31.0-80.0 [facility] Comment on above: Order Comment: Speci men Type: BLOOD SPECIMENOrdering Facility: [facility] Address: [address] [id number] Result Comment: Clas sification of 25 [place] Vitamin D status: Deficiency/Insufficiency: < or = 30 ng/ml. Sufficiency/Optimal Levels: 31-80 ng/mL Toxicity: > 100 ng/mL. Test performed by chemiluminescent immunoassay. Performed By: #### 1 989-3 ####[facility] [id number] [place] [address] [place] Bacteria Ur Culton 2 Bacteria identified Cx Nom (U) CULTURE, URINE: No growth (<1,000 CFU/ml) Normal [facility] Comment on above: Performed By: #### 6 30-4 ####[facility] [id number] [place] [address] [place] CBC W Auto Differential pane l (Bld)on 08-28-2022 Basophils (Bld) [#/Vol] 0.03 10*3/uL Normal <0.11 [facility] Comment on above: Order Comment: Speci men Type: BLOOD SPECIMENOrdering Facility: [facility] Address: [address] [phone] Performed By: #### 5 7021-8 ####[facility] [id number] [facility] [place] [place] [address] [place] Basophils/100 WBC (Bld) 0.4 % Normal [facility] Comment on above: Order Comment: Speci men Type: BLOOD SPECIMENOrdering Facility: [facility] Address: [address] [place] [address] Performed By: #### 5 7021-8 ####[facility] [id number] [place] [address] [place] Differential cell count method Nom (Bld) Auto Normal [facility] Comment on above: Order Comment: Speci men Type: BLOOD SPECIMENOrdering Facility: [facility] Address: [address] [place] [address] Performed By: #### 5 7021-8 ####[facility] [id number] [place] [address] [place] Eosinophils (Bld) [#/Vol] 0.31 10*3/uL Normal <0.46 [facility] Comment on above: Order Comment: Speci men Type: BLOOD SPECIMENOrdering Facility: [facility] Address: [address] [place] [address] Performed By: #### 5 7021-8 ####[facility] [id number] [place] [address] [place] Eosinophils/100 WBC (Bld) 4.4 % Normal [facility] Comment on above: Order Comment: Speci men Type: BLOOD SPECIMENOrdering Facility: [facility] Address: [address] [place] [address] Performed By: #### 5 7021-8 ####[facility] [id number] [place] [address] [place] Erythrocyte distribution width (RBC) [Ratio] 13.9 % Normal 11.5-15.0 [facility] Comment on above: Order Comment: Speci men Type: BLOOD SPECIMENOrdering Facility: [facility] Address: [address] [place] [address] Performed By: #### 5 7021-8 ####[facility] [id number] [address] [place] Hematocrit (Bld) [Volume fraction] 40.0 % Normal 39.0-51.0 [facility] Comment on above: Order Comment: Speci men Type: BLOOD SPECIMENOrdering Facility: [facility] Address: [address] [place] [address] Performed By: #### 5 7021-8 ####[facility] [id number] [address] [place] Hemoglobin (Bld) [Mass/Vol] 13.0 g/dL Normal 13.0-17.0 [facility] Comment on above: Order Comment: Speci men Type: BLOOD SPECIMENOrdering Facility: [facility] Address: [address] [place] [address] Performed By: #### 5 7021-8 ####[facility] [id number] [address] [place] IMMATURE GRAN % 0.4 % Normal [facility] Comment on above: Order Comment: Speci men Type: BLOOD SPECIMENOrdering Facility: [facility] Address: [address] [place] [address] Performed By: #### 5 7021-8 ####[facility] [id number] [address] [place] IMMATURE GRAN ABS 0.03 k/uL Normal <0.10 [facility] Comment on above: Order Comment: Speci men Type: BLOOD SPECIMENOrdering Facility: [facility] Address: [address] [place] [address] Performed By: #### 5 7021-8 ####[facility] [id number] [address] [place] Lymphocytes (Bld) [#/Vol] 2.20 10*3/uL Normal 1.00-4.00 [facility] Comment on above: Order Comment: Speci men Type: BLOOD SPECIMENOrdering Facility: [facility] Address: [address] [place], [place] [id number] Performed By: #### 5 7021-8 ####[facility] [id number] [address] [place] Lymphocytes/100 WBC (Bld) 31.2 % Normal [facility] Comment on above: Order Comment: Speci men Type: BLOOD SPECIMENOrdering Facility: [facility] Address: [address] [place] [address] Performed By: #### 5 7021-8 ####[facility] [id number] [place] [address] [place] MCH (RBC) [Entitic mass] 26.5 pg Normal 26.0-34.0 [facility] Comment on above: Order Comment: Speci men Type: BLOOD SPECIMENOrdering Facility: [facility] Address: [address] [place] [address] Performed By: #### 5 7021-8 ####[facility] [id number] [address] [place] MCHC (RBC) [Mass/Vol] 32.5 g/dL Normal 30.5-36.0 [facility] Comment on above: Order Comment: Speci men Type: BLOOD SPECIMENOrdering Facility: [facility] Address: [address] [place] [address] Performed By: #### 5 7021-8 ####[facility] [id number] [address] [place] MCV (RBC) [Entitic vol] 81.5 fL Normal 80.0-100.0 [facility] Comment on above: Order Comment: Speci men Type: BLOOD SPECIMENOrdering Facility: [facility] Address: [address] [place], [place] [address] Performed By: #### 5 7021-8 ####[facility] [id number] [address] [place] Monocytes (Bld) [#/Vol] 0.44 10*3/uL Normal <0.87 [facility] Comment on above: Order Comment: Speci men Type: BLOOD SPECIMENOrdering Facility: [facility] Address: [address] [place], [place] [address] Performed By: #### 5 7021-8 ####[facility]ORYCLIA [id number] [facility] [place] [place] [address] [place] Monocytes/100 WBC (Bld) 6.2 % Normal [facility] Comment on above: Order Comment: Speci men Type: BLOOD SPECIMENOrdering Facility: [facility] Address: [address] [place], [place] [address] Performed By: #### 5 7021-8 ####[facility]ORYCLIA [id number] [facility] [place] [address] [place] Neutrophils (Bld) [#/Vol] 4.05 10*3/uL Normal 1.45-7.50 [facility] Comment on above: Order Comment: Speci men Type: BLOOD SPECIMENOrdering Facility: [facility] Address: [address] [place] [address] Performed By: #### 5 7021-8 ####[facility] [id number] [facility] [place] [address] [place] Neutrophils/100 WBC (Bld) 57.4 % Normal [facility] Comment on above: Order Comment: Speci men Type: BLOOD SPECIMENOrdering Facility: [facility] Address: [address] [place], [place] [address] Performed By: #### 5 7021-8 ####[facility]ORYCL[facility] [id number] [facility] [place] [place] [address] [place] Nucleated RBC (Bld) [#/Vol] 10*3/uL Normal <0.01 [facility] Comment on above: Order Comment: Speci men Type: BLOOD SPECIMENOrdering Facility: [facility] Address: [address] [place], [place] [address] Performed By: #### 5 7021-8 ####[facility]ORYCLIA [id number] [facility] [place] [address] [place] Nucleated RBC/100 WBC (Bld) [Ratio] 0.0 /100 WBC Normal [facility] Comment on above: Order Comment: Speci men Type: BLOOD SPECIMENOrdering Facility: [facility] Address: [address] [place] [address] Performed By: #### 5 7021-8 ####[facility] [id number] [place] [address] [place] Platelet mean volume (Bld) [Entitic vol] 9.7 fL Normal 9.0-12.7 [facility] Comment on above: Order Comment: Speci men Type: BLOOD SPECIMENOrdering Facility: [facility] Address: [address] [place] [address] Performed By: #### 5 7021-8 ####[facility] [id number] [place] [address] [place] Platelets (Bld) [#/Vol] 169 10*3/uL Normal 150-400 [facility] Comment on above: Order Comment: Speci men Type: BLOOD SPECIMENOrdering Facility: [facility] Address: [address] [place] [address] Performed By: #### 5 7021-8 ####[facility] [id number] [place] [id number] [place] RBC (Bld) [#/Vol] 4.91 10*6/uL Normal 4.20-6.00 [facility] Comment on above: Order Comment: Speci men Type: BLOOD SPECIMENOrdering Facility: [facility] Address: [address] [place] [address] Performed By: #### 5 7021-8 ####[facility] [id number] [place] [address] [place] WBC (Bld) [#/Vol] 7.06 10*3/uL Normal 3.70-11.00 [facility] Comment on above: Order Comment: Speci men Type: BLOOD SPECIMENOrdering Facility: [facility] Address: [address] [place] [address] Performed By: #### 5 7021-8 ####[facility]ORYCLIA [id number] [facility] [place] [address] [place] CT FLANK WO IVCONon 08-28-[address] FLANK WO IVCON * * *Final Report* * * DATE OF EXAM: Aug 28 2022 7:10AM [facility] 0529 - CT FLANK WO IVCON [...] lesions. Lower thorax: Lower lungs are clear. Automatic Equipment Technician (topogram) images: Unremarkable. IMPRESSION: Extensive amount of left-sided urolithiasis with left-sided double-J ureteral stent in place. Engine Lathe Tender: VITOR Transcribe Date/Time: Aug 28 2022 10:17A Dictated by : CECE GALVIN MD This examination was interpreted and the report reviewed and electronically signed by: CECE GALVIN MD on Aug 28 2022 10:31AM EST [id number] Normal [facility] Comprehensive metabolic 2000 panelon 08-28-2022 Albumin [Mass/Vol] 4.5 g/dL Normal 3.9-4.9 [facility] Comment on above: Order Comment: Speci men Type: BLOOD SPECIMENOrdering Facility: [facility] Address: [address] [place] [address] Performed By: #### 2 4323-8 ####[facility]ORYCLIA [id number] [place] [address] [place] ALP [Catalytic activity/Vol] 99 U/L Normal 38-113 [facility] Comment on above: Order Comment: Speci men Type: BLOOD SPECIMENOrdering Facility: [facility] Address: [address] [place] [address] Performed By: #### 2 4323-8 ####[facility]ORYCLIA [id number] [place] [address] [place] ALT [Catalytic activity/Vol] 17 U/L Normal 10-54 [facility] Comment on above: Order Comment: Speci men Type: BLOOD SPECIMENOrdering Facility: [facility] Address: [address] [place] [address] Performed By: #### 2 4323-8 ####[facility]ORYCLIA [id number] [place] [address] [place] Anion gap [Moles/Vol] 9 mmol/L Normal 9-18 [facility] Comment on above: Order Comment: Speci men Type: BLOOD SPECIMENOrdering Facility: [facility] Address: [address] [place] [address] Performed By: #### 2 4323-8 ####[facility] [id number] [place] [address] [place] AST [Catalytic activity/Vol] 20 U/L Normal 14-40 [facility] Comment on above: Order Comment: Speci men Type: BLOOD SPECIMENOrdering Facility: [facility] Address: [address] [place] [address] Performed By: #### 2 4323-8 ####[facility] [id number] [place] [address] [place] Bilirubin [Mass/Vol] 0.2 mg/dL Normal 0.2-1.3 [facility] Comment on above: Order Comment: Speci men Type: BLOOD SPECIMENOrdering Facility: [facility] Address: [address] [place] [address] Performed By: #### 2 4323-8 ####[facility] [id number] [place] [address] [place] Calcium [Mass/Vol] 9.5 mg/dL Normal 8.5-10.2 [facility] Comment on above: Order Comment: Speci men Type: BLOOD SPECIMENOrdering Facility: [facility] Address: [address] [place] [address] Performed By: #### 2 4323-8 ####[facility]ATORYIA [id number] [place] [address] [place] Chloride [Moles/Vol] 106 mmol/L High 97-105 [facility] Comment on above: Order Comment: Speci men Type: BLOOD SPECIMENOrdering Facility: [facility] Address: [address] [place] [address] Performed By: #### 2 4323-8 ####[facility]ORYIA [id number] [place] [address] [place] CO2 [Moles/Vol] 25 mmol/L Normal 22-30 [facility] Comment on above: Order Comment: Speci men Type: BLOOD SPECIMENOrdering Facility: [facility] Address: [address] Performed By: #### 2 4323-8 ####[facility]ATORYCLIA [id number] [place] [address] [place] Creatinine [Mass/Vol] 1.22 mg/dL Normal 0.73-1.22 [facility] Comment on above: Order Comment: Speci men Type: BLOOD SPECIMENOrdering Facility: [facility] Address: [address] Performed By: #### 2 4323-8 ####[facility]ATORYCLIA [id number] [place], [place] [address] [place] [address] OF [facility] ESTIMATED GLOMERULAR FILTRATION RATE 68 mL/min/1.73m??? Normal >=60 [facility] Comment on above: Order Comment: Speci men Type: BLOOD SPECIMENOrdering Facility: [facility] Address: [address] [place] [address] Result Comment: Carole mated Glomerular Filtration Rate [...] actual GFR. Performed By: #### 2 4323-8 ####[facility]ATORYCLIA [id number] [place] [address] [place] Glucose [Mass/Vol] 158 mg/dL High 74-99 [facility] Comment on above: Order Comment: Speci [facility] Type: BLOOD SPECIMENOrdering Facility: [facility] Address: [address] [address] Result Comment: The [place] Diabetes Association (ADA) provides guidance for cutoff [...] Standards of Medical Care in Diabetes 2016, [place] Diabetes Association. Diabetes Care. 2016.39(Suppl 1). Performed By: #### 2 4323-8 ####[facility]ATORYCLIA [id number] [place] [address] [place] Potassium [Moles/Vol] 4.7 mmol/L Normal 3.7-5.1 [facility] Comment on above: Order Comment: Demar arrington Type: BLOOD SPECIMENOrdering Facility: [facility] Address: [address] [place] [address] Performed By: #### 2 4323-8 ####[facility] [id number] [place] [address] [place] Protein [Mass/Vol] 6.7 g/dL Normal 6.3-8.0 [facility] Comment on above: Order Comment: Demar arrington Type: BLOOD SPECIMENOrdering Facility: [facility] Address: [address] [place] [address] Performed By: #### 2 4323-8 ####[facility]ORYCLIA [id number] [place] [address] [place] Sodium [Moles/Vol] 140 mmol/L Normal 136-144 [facility] Comment on above: Order Comment: Demar arrington Type: BLOOD SPECIMENOrdering Facility: [facility] Address: [address] [place] [address] Performed By: #### 2 4323-8 ####[facility]ORYCLIA [id number] [place] [address] [place] Urea nitrogen [Mass/Vol] 23 mg/dL Normal 9-24 [facility] Comment on above: Order Comment: Speci men Type: BLOOD SPECIMENOrdering Facility: [facility] Address: [address], [place] [address] Performed By: #### 2 4323-8 ####[facility]ORATORYCLIA [id number] [facility] [place] [address] [place] HISTORY PHYSICALon HISTORY PHYSICAL HNO ID: [id number] Author: Mechelle Burnett PA-C Service: ? Author Type: Physician Flight Control Specialist Type: HANDP Filed: 08/29/2022 9:43 AM Note [...] Prior to Admission medications as of 08/28/22 0933 Medication Sig Last Dose Taking metFORMIN (GLUCOPHAGE) [...] fevers. Neuro: No history of TIA's, stroke, REMEDIAL PROJECT MANAGER tumor, impaired sensorium, hemiplegia, paraplegia or quadraplegia. No neurological symptoms or problems. Respiratory: No history of current cough or dyspnea, or pneumonia in the past 6 weeks. No history of respiratory/pulmonary symptoms or problems. Cardiovascular: +HTN, HLD, POTS- no recent episodes Negative for Recent AK, Angina, Chest Pain, CHF, DVT/PE GI: No [...] problems. Musc (more content not included)... Normal [facility] HbA1c (Bld)on 08-28-2022 Average glucose Estimated from glycated hemoglobin (Bld) [Mass/Vol] 131 mg/dL Normal [facility] Comment on above: Order Comment: Demar arrington Type: BLOOD SPECIMEN [facility] Address: [address] [place] [address] Result Comment: eAG: (Estimated average glucose) is a calculated value from HgbA1c and is retail service representative of the average blood glucose level in the last 2-3 month period. Performed By: #### 5 8410-2 #### [facility] CLIA [id number] [place] [address] [place] HbA1c (Bld) [Mass fraction] 6.2 % High 4.3-5.6 [facility] Comment on above: Order Comment: Demar arrington Type: BLOOD SPECIMEN [facility] Address: [address] [address] Result Comment: Amer [place] Diabetes Association guidelines indicate that patients with HgbA1c in the range 5.7-6.4% are at increased risk for development of diabetes, and intervention by lifestyle modification may be beneficial. HgbA1c greater or equal to 6.5% is considered diagnostic of diabetes. Performed By: #### 5 8410-2 #### [facility] CLIA [id number] [place] [address] [place] PT panel Coag (PPP)on 2021 INR Coag (PPP) [Relative time] 1.0 {INR} Normal 0.9-1.3 [facility] Comment on above: Order Comment: Demar arrington Type: BLOOD SPECIMEN [facility] Address: [address] [place], [place] [address] Result Comment: No min K Antagonist (VKA) Therapeutic Range: INR 2 to 3 (Target INR of 2.5) Note: For patients treated with VKA drugs, such as warfarin, the [place] [employer] 2012 Guideline recommends [...] to 3.5 (target INR of 3). Gina UP, et al. Chest 2012, 141:7S-47S Soo RA, et al. [facility] 2017, 70: 252-289 Performed By: #### 5 8410-2 #### [facility] CLIA [id number] [place] [address] [place] PT Coag (PPP) [Time] 10.3 s Normal 9.7-13.0 [facility] Comment on above: Order Comment: Demar arrington Type: BLOOD SPECIMEN Ordering Facility: [facility] Address: [address] Performed By: #### 5 8410-2 #### [facility] CLIA [id number] [address] [place] [address] [place] PTH-Intact SerPl-mCncon 10- Parathyrin.intact [Mass/Vol] 26 pg/mL Normal 15-65 [facility] Comment on above: Order Comment: Demar arrington Type: BLOOD SPECIMEN Ordering Facility: [facility] Address: [address] [place] [address] Performed By: #### 5 8410-2 #### [facility] CLIA [id number] [place], [place] [id number] [place] [address] OF [place] TYPE AND SCREEN,30 DAYon ABO O Normal [facility] Comment on above: Order Comment: Speci men Type: BLOOD SPECIMENOrdering Facility: [facility] Address: [address] [place] [address] Performed By: #### T SCR30 ####JOELLE BLOOD BANKIA [id number] [address] [place] HISTORICAL AB SCR STATUS Negative [facility] Comment on above: Order Comment: Speci men Type: BLOOD SPECIMENOrdering Facility: [facility] Address: [address] [place] [address] Performed By: #### T SCR30 ####[facility] [id number] [address] [place] Rh Nom (Bld) Positive Normal [facility] Comment on above: Order Comment: Speci men Type: BLOOD SPECIMENOrdering Facility: [facility] Address: [address] [place] [address] Performed By: #### T SCR30 ####JOELLE BLOOD [facility] [id number] [address] Urinalysis complete panel (U )on 08-28-2022 Bilirubin Ql (U) Negative Normal Negative [facility] Comment on above: Order Comment: Speci men Type: BLOOD SPECIMEN Ordering Facility: [facility] Address: [address] [place] [address] Performed By: #### 5 8410-2 #### [facility] [place] [id number] [place] [address] [place] Clarity (Unsp spec) Cloudy Abnormal Clear [facility] Comment on above: Order Comment: Speci men Type: BLOOD SPECIMEN Ordering Facility: [facility] Address: [address] [place] [address] Performed By: #### 5 8410-2 #### [facility] IA [id number] [address] [place] [address] [place] Color (U) [place] Abnormal Yellow [facility] Comment on above: Order Comment: Speci men Type: BLOOD SPECIMEN Ordering Facility: [facility] Address: [address] [address] Performed By: #### 5 8410-2 #### [facility] IA [id number] [address] [place] [id number] [place] [address] [place] Glucose Test strip (U) [Mass/Vol] Negative Normal Negative [facility] Comment on above: Order Comment: Speci men Type: BLOOD SPECIMEN Ordering Facility: [facility] Address: [address] [place] [address] Performed By: #### 5 8410-2 #### [facility] [id number] [address] [place] [address] [place] Hemoglobin Ql (U) 3+ Abnormal Negative [facility] Comment on above: Order Comment: Speci men Type: BLOOD SPECIMEN Ordering Facility: [facility] Address: [address] [place] [address] Performed By: #### 5 8410-2 #### [facility] [id number] [address] [place] [id number] [place] [address] [place] Ketones Ql (U) Negative Normal Negative [facility] Comment on above: Order Comment: Speci men Type: BLOOD SPECIMEN Ordering Facility: [facility] Address: [address] Performed By: #### 5 8410-2 #### [facility] IA [id number] [address] [place] [address] [place] Leukocyte esterase Test strip Ql (U) 1+ Abnormal Negative [facility] Comment on above: Order Comment: Speci men Type: BLOOD SPECIMEN Ordering Facility: [facility] Address: [address] Performed By: #### 5 8410-2 #### [facility] IA [id number] [address] [place] [address] [place] Nitrite Ql (U) Negative Normal Negative [facility] Comment on above: Order Comment: Speci men Type: BLOOD SPECIMEN Ordering Facility: [facility] Address: [address] [place] [address] Performed By: #### 5 8410-2 #### [facility] IA [id number] [place] [address] [place] pH (U) 5.5 [pH] Normal 5.0-8.0 [facility] Comment on above: Order Comment: Speci men Type: BLOOD SPECIMEN Ordering Facility: [facility] Address: [address] [place] [address] Performed By: #### 5 8410-2 #### [facility] IA [id number] [address] [place] [address] [place] Protein (U) [Mass/Vol] Normal [facility] Comment on above: Order Comment: Speci men Type: BLOOD SPECIMEN Ordering Facility: [facility] Address: [address] [place] [address] Result Comment: Visi ble blood causes falsely elevated results for analyte Protein. Due to this limitation, Protein will not be reported for patients whose urine contains visible blood. Performed By: #### 5 8410-2 #### [facility] IA [id number] [address] [place] [address] [place] RBC LM.HPF (Urine sed) [#/Area] 11-25 /HPF Abnormal 0-3 /HPF [facility] Comment on above: Order Comment: Speci men Type: BLOOD SPECIMEN Ordering Facility: [facility] Address: [address] [place] [address] Performed By: #### 5 8410-2 #### [facility] IA [id number] [place] [address] [place] Specific gravity (U) [Rel density] 1.014 Normal 1.005-1.030 [facility] Comment on above: Order Comment: Speci men Type: BLOOD SPECIMEN Ordering Facility: [facility] Address: [address] [place] [address] Performed By: #### 5 8410-2 #### [facility] IA [id number] [address] Urobilinogen Ql (U) 0.2 EU/dL Normal 0.2-1.0 EU/dL [facility] Comment on above: Order Comment: Speci men Type: BLOOD SPECIMEN Ordering Facility: [facility] Address: [address] [place] [address] Performed By: #### 5 8410-2 #### [facility] IA [id number] WBC LM.HPF (Urine sed) [#/Area] 6-10 /HPF Abnormal 0-5 /HPF [facility] Comment on above: Order Comment: Speci men Type: BLOOD SPECIMEN Ordering Facility: [facility] Address: [address] [place] [address] Performed By: #### 5 8410-2 #### [facility] IA [id number] OF [place] aPTT PPPon 08-28-2022 aPTT Coag (PPP) [Time] 27.0 s Normal 23.0-32.4 [facility] Comment on above: Order Comment: Speci men Type: BLOOD SPECIMEN Ordering Facility: [facility] Address: [address] [place] [address] Performed By: #### 5 8410-2 #### [facility] IA [id number] OF [facility] CNPAnali 08-25-2022 CNPN Telephone (UROB) ----- DAT LOPEZ ([id number]) 1960 M Date Time Provider Department 08/25/22 NOELLE VEGA During your visit today, we recorded the following information about you: Eddie Freed Pss 08/25/2022 4:43 PM Signed Patient [...] Fully Assessed Reason for Visit: Patient Question [8937] Prescriptions as of 08/28/2022 - metFORMIN (GLUCOPHAGE) [...] Encounter Status:Closed by EVELYN HICKS on 08/28/22 [facility] 08-24-2022 [facility] Telephone (URCozyOB) ----- DAT LOPEZ ([id number]) 1960 M Date Time Provider Department 08/24/22 NOELLE VEGAANGELITO During your visit today, we recorded the following information about you: Eddie Freed Pss 08/24/2022 3:53 PM Signed Called patient to review preop appts and instructions. Unable to leave message, no vm available. Eddie Freed Pss 08/25/2022 4:36 PM Signed Patient scheduled for surgery on 09/11 at [facility] for PERCUTANEOUS NEPHROLITHOTOMY [9187] - Kidney - Left. Patient will be [...] (postural orthostatic tachycardia syndrome*08/24/2022 Encounter Status:Closed by TONYA CLANCYEDDIE on 08/25/22 [facility] 08-16-2022 CNPN Telephone (UROLAV) ----- DAT LOPEZ ([id number]) 1960 M Date Time Provider Department 08/16/22 NOELLE VEGA During your visit today, we recorded the following information about you: Bienvenido Del Cid Ma 08/16/2022 5:26 PM Signed Images from cd [...] Visit: Other [Other] Cmt: CD from [facility] XR KUB Prescriptions as of 08/16/2022 [...] by BIENVENIDO DEL CID MA on 08/16/22 [facility] CNOVon 08-11-2022 CNOV Office Visit (UROLAV ) ----- LOPEZDAT Ramirez ([id number]) 1960 M Date Time Provider Department 08/11/22 11:00 AM NOELLE VEGA During your visit today, we recorded the following information about you: Pulse Blood pressure Weight 66/minute 176/89 99.8 kg Noelle Vega MD 08/11/2022 11:28 AM Signed [facility] NEW PATIENT HISTORY AND PHYSICAL EXAM PATIENT INFO: Dat Lopez 62 year old REFERRING M.D.: Pelon Coles [address] [place] [address] PCP: No primary care provider on file. [...] Left NL, multiple stones. ESWL was performed. [facility] Then URS x 2 and ureteral stent [...] black stools or change in bowel habits [place] (more content not included)... [facility] DIP, URINE (POC)on 2021 BILIRUBIN UA (POCT) Negative Negative [facility] CLARITY UA (POCT) Slightly Cloudy Cl [facility] COLOR UA (POCT) Yellow [facility] GLUCOSE UA (POCT) Negative Negative mg/dL [facility] HEMOGLOBIN/BLOOD UA (POCT) Large Abnormal Negative [facility] KETONE UA (POCT) Negative Negative mg/dL [facility] (POCT) Small Abnormal Negative [facility] NITRITE UA (POCT) Negative Negative [facility] PH UA (POCT) 5.5 4.5 - 8.[address] [facility] Protein Ql (U) 30 mg/dL Abnormal Negative mg/dL [facility] SPECIFIC GRAVITY UA (POCT) 1.015 1.005 - 1.[address] [facility] UROBILINOGEN UA (POCT) 0.2 E.U./dL Normal E.U./dL [facility] XR KUB 1 VIEWon 07-19-2022 XR KUB [...] by: GEMA OTTO Date: 2022-07-19 11:50 Normal [facility] XR KUB 1 VIEWon 06-29-2022 XR KUB [...] by: JI CULLEN Date: 2022-06-29 07:43 Normal [facility] CALCULI, URINARYon 2 2,8 Dihydroxyadenine Normal [facility] Comment on above: Performed By: #### C ALCULI #### [facility] [address] [address] [address] Nikky aMn Ammonium Acid Urate Normal [facility] Comment on above: Performed By: #### C ALCULI #### [facility] [address] [address] [address] Nikky Man Bilirubin Ql (U) Normal [facility] Comment on above: Performed By: #### C ALCULI #### [facility] [address] [address] [address] Nikky Man Ca Oxalate Dihydrate 10 % [facility] Comment on above: Performed By: #### C ALCULI #### [facility] [address] [address] [address] Nikky Man CaHPO4 (Brushite) [place] [facility] Comment on above: Performed By: #### C ALCULI #### [facility] [address] [address] [address] Nikky Man Calcium Bilirubinate Normal [facility] Comment on above: Performed By: #### C ALCULI #### [facility] [address] [address] [address] Nikky Man Calcium Carbonate Normal [facility] Comment on above: Performed By: #### C ALCULI #### [facility] [address] [address] [address] Nikky Man Calcium Oxalate Monohydrate 90 % [facility] Comment on above: Performed By: #### C ALCULI #### [facility] [address] [address] [address] Nikky Man Calcium Palmitate Normal [facility] Comment on above: Performed By: #### C ALCULI #### [facility] [address] [place] [address] Dr. Nikky Man Calcium Phosphate [place] [facility] Comment on above: Performed By: #### C ALCULI #### [facility] [address] [address] [address] Nikky Man Calcium Stearate Normal [facility] Comment on above: Performed By: #### C ALCULI #### [facility] [address] [address] [address] Nikky Man Carbonate Apatite Normal [facility] Comment on above: Performed By: #### C ALCULI #### [facility] [address] [address] [address] Nikky Man Cellular Material Normal [facility] Comment on above: Performed By: #### C ALCULI #### [facility] [address] [address] [address] Nikky Man Cholesterol [facility] Comment on above: Performed By: #### C ALCULI #### [facility] [address] [address] [address] Nikky Man Color (U) [place] [facility] Comment on above: Performed By: #### C ALCULI #### [facility] [address] [place] [address] Dr. Nikky Man Comment [facility] Comment on above: Performed By: #### C ALCULI #### [facility] [address] [address] [address] Nikky Man Comment Comment [facility] Comment on above: Result Comment: Calc ulus received in liquid. Wet calculi must be dried before analysis, which delays reporting of results. Leaving calculi in liquid (such as water, saline, blood, urine) may lead to changes in composition. Performed By: #### C ALCULI #### [facility] [address] [place] [address] Dr. Nikky Man Comment: Comment Normal [facility] Comment on above: Result Comment: Phys nicolas questions regarding Calculi Analysis contact [facility] at: [phone]. Performed By: #### C ALCULI #### [facility] [address] [place] [address] Dr. Nikky Man Composition Comment [facility] Comment on above: Result Comment: Perc entage (Represents the % composition) Performed By: #### C ALCULI #### [facility] [address] [address] [address] Nikky Man Cystine Normal [facility] Comment on above: Performed By: #### C ALCULI #### [facility] [address] [address] [address] Nikky Man Disclaimer: Comment Normal [facility] Comment on above: Result Comment: This test was developed and its performance characteristics determined by [facility]. It has not been cleared or approved by the Food and Drug Administration. Performed By: #### C ALCULI #### [facility] [address] [place] [address] Dr. Nikky Man Dried Blood [facility] Comment on above: Performed By: #### C ALCULI #### [facility] [address] [place] [address] Dr. Nikky Man Drug or Metabolite Normal [facility] Comment on above: Performed By: #### C ALCULI #### [facility] [address] [place] [address] Dr. Nikky Man Hydroxyapatite [facility] Comment on above: Performed By: #### C ALCULI #### [facility] [address] [place] [address] Dr. Nikky Man Mg NH4 PO4 (Struvite) [facility] Comment on above: Performed By: #### C ALCULI #### [facility] [address] [place] [address] Dr. Nikky Man MgHPO4 ([place]ite) [facility] Comment on above: Performed By: #### C ALCULI #### [facility] [address] [place] [address] Dr. Nikky Man Other component(s) [facility] Comment on above: Performed By: #### C ALCULI #### [facility] [address] [place] [address] Dr. Nikky Man PDF . Normal [facility] Comment on above: Performed By: #### C ALCULI #### [facility] [address] [place] [address] Dr. Nikky Man Photo Comment Normal [facility] Comment on above: Result Comment: Phot ograph will follow under a separate cover Performed By: #### C ALCULI #### [facility] [address] [address] [address] Nikky Man Please note: Comment Normal [facility] Comment on above: Result Comment: Calc aishwarya report will follow via computer, mail or vaccinator delivery. Performed By: #### C ALCULI #### [facility] [address] [address] [address] Nikky Man Size 3x2 Normal [facility] Comment on above: Result Comment: Mult iple pieces received. Dimensions of the largest piece reported. Performed By: #### C ALCULI #### [facility] [address] [address] [address] Nikky Man Sodium Acid Urate Normal [facility] Comment on above: Performed By: #### C ALCULI #### [facility] [address] [address] [address] Nikky Man Source Comment Normal [facility] Comment on above: Result Comment: Left Ureter Performed By: #### C ALCULI #### [facility] [address] [address] [address] Nikky Man Triamterene [facility] Comment on above: Performed By: #### C ALCULI #### [facility] [address] [address] [address] Nikky Man Uric Acid [facility] Comment on above: Performed By: #### C ALCULI #### [facility] [address] [address] [address] Nikky Man Uric Acid Dihydrate [facility] Comment on above: Performed By: #### C ALCULI #### [facility] [address] [address] [address] Nikky Man Weight 4 mg Normal [facility] Comment on above: Performed By: #### C ALCULI #### [facility] [address] [address] [address] Nikky Man Xanthine [facility] Comment on above: Performed By: #### C ALCULI #### [facility] [address] [address] [address] Nikky Man XR KUB 1 VIEWon [...] by: JI CULLEN Date: 2022-06-08 16:30 Normal [facility] XR KUB 1 VIEWon 06-01-2022 XR KUB [...] by: JI CULLEN Date: 2022-06-01 21:58 Normal [facility] PROTIMEon 05-25-2022 INR Coag (PPP) [Relative time] 1.01 {INR} Normal [facility] Comment on above: Performed By: #### P TT, PT #### [facility] [address] [address] [address] Nikky Man INR GUIDELINES SEE BELOW Normal [facility] Comment on above: Result Comment: ELFEGO RED INR: 2.0 - 3.0 CONDITIONS NOT LISTED BELOW 2.5 - 3.5 FOR PROSTHETIC HEART VALVE REPLACEMENT 2.5 - 3.5 RECURRENT THROMBOSIS Performed By: #### P TT, PT #### [facility] [address] [address] [address] Nikky Man PT Coag (PPP) [Time] 10.9 s Normal 9.0-11.6 [facility] Comment on above: Performed By: #### P TT, PT #### [facility] [address] [place] [address] Dr. Nikky Man PTTon 05-25-2022 aPTT Coag (Bld) [Time] 27.9 s Normal 22.3-36.2 [facility] Comment on above: Performed By: #### P TT, PT #### [facility] [address] [address] [address] Nikky Man XR KUB 1 VIEWon [...] GEMA OTTO Date: 2022-05-25 17:12 Normal [facility] XR KUB 1 VIEWon 05-17-2022 XR [...] by: JI CULLEN Date: 2022-05-17 07:32 Normal [facility] CALCULI, URINARYon 2 2,8 Dihydroxyadenine Normal [facility] Comment on above: Performed By: #### C BC #### [facility] [address] [address] [address] Nikky Man Ammonium Acid Urate Normal [facility] Comment on above: Performed By: #### C BC #### [facility] [address] [address] [address] Nikky Man Bilirubin Ql (U) Normal [facility] Comment on above: Performed By: #### C BC #### [facility] [address] [address] [address] Nikky Man Ca Oxalate Dihydrate 10 % [facility] Comment on above: Performed By: #### C BC #### [facility] [address] [address] [address] Nikky Man CaHPO4 (Brushite) Normal [facility] Comment on above: Performed By: #### C BC #### [facility] [address] [address] [address] Nikky Man Calcium Bilirubinate Normal [facility] Comment on above: Performed By: #### C BC #### [facility] [address] [address] [address] Nikky Man Calcium Carbonate Normal [facility] Comment on above: Performed By: #### C BC #### [facility] [address] [address] [address] Nikky Man Calcium Oxalate Monohydrate 90 % [facility] Comment on above: Performed By: #### C BC #### [facility] [address] [address] [address] Nikky Man Calcium Palmitate Normal [facility] Comment on above: Performed By: #### C BC #### [facility] [address] [address] [address] Nikky Man Calcium Phosphate Normal [facility] Comment on above: Performed By: #### C BC #### [facility] [address] [address] [address] Nikky Man Calcium Stearate [place] [facility] Comment on above: Performed By: #### C BC #### [facility] [address] [address] [address] Nikky Man Carbonate Apatite Normal [facility] Comment on above: Performed By: #### C BC #### [facility] [address] [address] [address] Nikky Man Cellular Material [facility] Comment on above: Performed By: #### C BC #### [facility] [address] [address] [address] Nikky Man Cholesterol [facility] Comment on above: Performed By: #### C BC #### [facility] [address] [address] [address] Nikky Man Color (U) [place] [facility] Comment on above: Performed By: #### C BC #### [facility] [address] [address] [address] Nikky Man Comment [facility] Comment on above: Performed By: #### C BC #### [facility] [address] [place] [address] Dr. Nikky Man Comment Comment [facility] Comment on above: Result Comment: Calc ulus received in liquid. Wet calculi must be dried before analysis, which delays reporting of results. Leaving calculi in liquid (such as water, saline, blood, urine) may lead to changes in composition. Performed By: #### C BC #### [facility] [address] [place] [address] Dr. Nikky Man Comment: Comment Normal [facility] Comment on above: Result Comment: Phys jean-paulan questions regarding Calculi Analysis contact [facility] at: [phone]. Performed By: #### C BC #### [facility] [address] [place] [address] Dr. Nikky Man Composition Comment [facility] Comment on above: Result Comment: Perc entage (Represents the % composition) Performed By: #### C BC #### [facility] [address] [place] [address] Dr. Nikky Man Cystine [facility] Comment on above: Performed By: #### C BC #### [facility] [address] [address] [address] Nikky Man Disclaimer: Comment Normal [facility] Comment on above: Result Comment: This test was developed and its performance characteristics determined by [facility]. It has not been cleared or approved by the Food and Drug Administration. Performed By: #### C BC #### [facility] [address] [place] [address] Dr. Nikky Man Dried Blood [facility] Comment on above: Performed By: #### C BC #### [facility] [address] [place] [address] Dr. Nikky Man Drug or Metabolite [facility] Comment on above: Performed By: #### C BC #### [facility] [address] [place] [address] Dr. Nikky Man Hydroxyapatite Normal [facility] Comment on above: Performed By: #### C BC #### [facility] [address] [place] [address] Dr. Nikky Man Mg NH4 PO4 (Struvite) [facility] Comment on above: Performed By: #### C BC #### [facility] [address] [place] [address] Dr. Nikky Man MgHPO4 (Newberyite) [facility] Comment on above: Performed By: #### C BC #### [facility] [address] [place] [address] Dr. Nikky Man Other component(s) [facility] Comment on above: Performed By: #### C BC #### [facility] [address] [place] [address] Dr. Nikky Man PDF . Normal [facility] Comment on above: Performed By: #### C BC #### [facility] [address] [place] [address] Dr. Nikky Man Photo Comment [facility] Comment on above: Result Comment: Phot ograph will follow under a separate cover Performed By: #### C BC #### [facility] [address] [address] [address] Nikky Man Please note: Comment Normal [facility] Comment on above: Result Comment: Calc aishwarya report will follow via computer, mail or vaccinator delivery. Performed By: #### C BC #### [facility] [address] [address] [address] Nikky Man Size 4x4 Normal [facility] Comment on above: Result Comment: Mult iple pieces received. Dimensions of the largest piece reported. Performed By: #### C BC #### [facility] [address] [address] [address] Nikky Man Sodium Acid Urate [facility] Comment on above: Performed By: #### C BC #### [facility] [address] [address] [address] Nikky Man Source Comment [facility] Comment on above: Result Comment: Left Ureter Performed By: #### C BC #### [facility] [address] [address] [address] Nikky Man Triamterene [facility] Comment on above: Performed By: #### C BC #### [facility] [address] [address] [address] Nikky Man Uric Acid [facility] Comment on above: Performed By: #### C BC #### [facility] [address] [address] [address] Nikky Man Uric Acid Dihydrate [facility] Comment on above: Performed By: #### C BC #### [facility] [address] [address] [address] Nikky Man Weight 156 mg [facility] Comment on above: Performed By: #### C BC #### [facility] [address] [address] [address] Nikky Man Xanthine [facility] Comment on above: Performed By: #### C BC #### [facility] [address] [address] [address] Nikky Man POINT OF CARE GLUCOSEon 04-19 Glucose [Mass/Vol] 131 mg/dL Critically high 74-106 [facility] Comment on above: Performed By: #### C BC #### [facility] [address] [place] [address] Dr. Nikky Man CBC AUTO DIFFon 05-04-2022 BASO # 0.0 103/ul Normal 0.0-0.1 [facility] Comment on above: Performed By: #### C BC #### [facility] [address] [place] [address] Dr. Nikky Man Basophils/100 WBC (Bld) 0.2 % Normal 0.2-2.0 [facility] Comment on above: Performed By: #### C BC #### [facility] [address] [place] [address] Dr. Nikky Man EO # 0.4 103/ul Normal 0.0-0.7 [facility] Comment on above: Performed By: #### C BC #### [facility] [address] [place] [address] Dr. Nikky Man Eosinophils/100 WBC (Bld) 4.8 % Normal 0.9-7.0 [facility] Comment on above: Performed By: #### C BC #### [facility] [address] [place] [address] Dr. Nikky Man Erythrocyte distribution width (RBC) [Ratio] 13.4 % Normal 11.0-15.0 [facility] Comment on above: Performed By: #### C BC #### [facility] [address] [place] [address] Dr. Nikky Man Hematocrit (Bld) [Volume fraction] 36.9 % Critically low 42.0-54.0 [facility] Comment on above: Performed By: #### C BC #### [facility] [address] [place] [address] Dr. Nikky Man Hemoglobin (Bld) [Mass/Vol] 12.2 g/dL Critically low 14.0-18.0 [facility] Comment on above: Performed By: #### C BC #### [facility] [address] [place] [address] Dr. Nikky Man IG # 0.05 10e3/ul Critically high 0.00-0.03 [facility] Comment on above: Performed By: #### C BC #### [facility] [address] [place] [address] Dr. Nikky Man IG % 0.6 % Critically high 0.0-0.5 [facility] Comment on above: Performed By: #### C BC #### [facility] [address] [place] [address] Dr. Nikky Man LYMPH # 1.8 103/ul Normal 1.2-3.8 [facility] Comment on above: Performed By: #### C BC #### [facility] [address] [place] [address] Dr. Nikky Man Lymphocytes/100 WBC (Bld) 20.3 % Critically low 20.5-60.0 [facility] Comment on above: Performed By: #### C BC #### [facility] [address] [place] [address] Dr. Nikky Man MANUAL DIFF REQ NO Normal [facility] Comment on above: Performed By: #### C BC #### [facility] [address] [place] [address] Dr. Nikky Man MCH (RBC) [Entitic mass] 26.6 pg Normal 25.9-34.0 [facility] Comment on above: Performed By: #### C BC #### [facility] [address] [place] [address] Dr. Nikky Man MCHC (RBC) [Mass/Vol] 33.1 g/dL Normal 29.9-35.2 [facility] Comment on above: Performed By: #### C BC #### [facility] [address] [place] [address] Dr. Nikky Man MCV (RBC) [Entitic vol] 80.6 fL Normal 80.0-94.0 [facility] Comment on above: Performed By: #### C BC #### [facility] [address] [place] [address] Dr. Nikky Man MONO # 0.5 103/ul Normal 0.3-0.8 [facility] Comment on above: Performed By: #### C BC #### [facility] [address] [place] [address] Dr. Nikky Man Monocytes/100 WBC (Bld) 5.2 % Normal 1.7-12.0 [facility] Comment on above: Performed By: #### C BC #### [facility] [address] [place] [address] Dr. Nikky Man NEUT # 6.1 103/ul Normal 1.4-6.5 [facility] Comment on above: Performed By: #### C BC #### [facility] [address] [place] [address] Dr. Nikky Man Neutrophils/100 WBC (Bld) 68.9 % Normal 43.0-75.0 [facility] Comment on above: Performed By: #### C BC #### [facility] [address] [place] [address] Dr. Nikky Man Platelet mean volume (Bld) [Entitic vol] 8.9 fL Critically low 9.5-13.5 [facility] Comment on above: Performed By: #### C BC #### [facility] [address] [place] [address] Dr. Nikky Man PLT 201 103/ul Normal 150-450 [facility] Comment on above: Performed By: #### C BC #### [facility] [address] [place] [address] Dr. Nikky Man RBC 4.58 106/ul Critically low 4.70-6.10 [facility] Comment on above: Performed By: #### C BC #### [facility] [address] [place] [address] Dr. Nikky Man WBC 8.8 103/ul Normal 4.0-11.0 [facility] Comment on above: Performed By: #### C BC #### [facility] [address] [place] [address] Dr. Nikky Man PROF CHEM 8 (BAS METB)on Anion gap [Moles/Vol] 17.6 mmol/L Normal [facility] Comment on above: Performed By: #### C BC #### [facility] [address] [address] [address] Nikky Man Calcium [Mass/Vol] 9.0 mg/dL Normal 8.5-10.1 [facility] Comment on above: Performed By: #### C BC #### [facility] [address] [address] [address] Nikky Man Chloride [Moles/Vol] 106 mmol/L Normal 98-107 [facility] Comment on above: Performed By: #### C BC #### [facility] [address] [address] [address] Nikky Man CO2 [Moles/Vol] 22.5 mmol/L Normal 21.0-32.[address] [facility] Comment on above: Performed By: #### C BC #### [facility] [address] [address] [address] Nikky Man Creatinine [Mass/Vol] 2.34 mg/dL Critically high 0.70-1.30 [facility] Comment on above: Performed By: #### C BC #### [facility] [address] [address] [address] Nikky Man EGFR-AF TAIWANESE 35 mL/min/1.73m2 Critically low >=60 [facility] Comment on above: Performed By: #### C BC #### [facility] [address] [address] [address] Nikky Man EGFR-NON AF TAIWANESE 29 mL/min/1.73m2 Critically low >=60 [facility] Comment on above: Performed By: #### C BC #### [facility] [address] [address] [address] Nikky Man Glucose [Mass/Vol] 123 mg/dL Critically high 74-106 [facility] Comment on above: Performed By: #### C BC #### [facility] [address] [place] [address] Dr. Nikky Man Potassium [Moles/Vol] 5.1 mmol/L Normal 3.5-5.1 [facility] Comment on above: Performed By: #### C BC #### [facility] [address] [address] [address] Nikky Man Sodium [Moles/Vol] 141 mmol/L Normal 136-145 [facility] Comment on above: Performed By: #### C BC #### [facility] [address] [place], [place] [address] Dr. Nikky Man Urea nitrogen [Mass/Vol] 27.0 mg/dL Critically high 7.0-18.0 [facility] Comment on above: Performed By: #### C BC #### [facility] [address] [address] [address] Nikky Man Urea nitrogen/Creatini ne [Mass ratio] 11.5 mg/mg Normal [facility] Comment on above: Performed By: #### C BC #### [facility] [address] [address] [address] Nikky Man XR KUB 1 VIEWon [...] GEMA OTTO Date: 2022-05-01 17:19 Normal [facility] URINE PROFILEon 2 Bilirubin Ql (U) Negative Normal NEGATIVE [facility] Comment on above: Performed By: #### C BC #### [facility] [address] [id number] Nikky Man Clarity (U) CLEAR Normal CLEAR [facility] Comment on above: Performed By: #### C BC #### [facility] [address] [address] [address] Nikky Man Color (U) LT. YELLOW Normal YELLOW [facility] Comment on above: Performed By: #### C BC #### [facility] [address] [address] [address] Nikky WEN A micrscopic examina tion will be performed if indicated. Normal [facility] Comment on above: Performed By: #### C BC #### [facility] [address] [address] [address] Nikky Man Glucose Ql (U) Negative Normal NEGATIVE [facility] Comment on above: Performed By: #### C BC #### [facility] [address] [place] [address] Dr. Nikky Man Hemoglobin Ql (U) LARGE Abnormal NEGATIVE [facility] Comment on above: Performed By: #### C BC #### [facility] [address] [place] [address] Dr. Nikky Man Ketones Ql (U) Negative Normal NEGATIVE [facility] Comment on above: Performed By: #### C BC #### [facility] [address] [place] [address] Dr. Nikky Man LEUKOCYTES Negative Normal NEGATIVE [facility] Comment on above: Performed By: #### C BC #### [facility] [address] [address] [address] Nikky Man Nitrite Ql (U) Negative Normal NEGATIVE [facility] Comment on above: Performed By: #### C BC #### [facility] [address] [place] [address] Dr. Nikky Man pH (U) 6.0 [pH] Normal 5-9 [facility] Comment on above: Performed By: #### C BC #### [facility] [address] [address] [address] Nikky Man SPEC GRAVITY 1.015 Normal 1.005-<=1.025 [facility] Comment on above: Performed By: #### C BC #### [facility] [address] [place] [address] Dr. Nikky Man UA PROTEIN TRACE Normal NEGATIVE/ TRACE [facility] Comment on above: Performed By: #### C BC #### [facility] [address] [place] [address] Dr. Nikky Man UR MICRO IND INDICATED Normal [facility] Comment on above: Performed By: #### C BC #### [facility] [address] [place] [address] Dr. Nikky Man Urobilinogen Qn (U) 0.2 {Chandni'U}/dL Normal 0.2 - 1.0 [facility] Comment on above: Performed By: #### C BC #### [facility] [address] [place] [address] Dr. Nikky Man URINE MICROSCOPIC ONLYon BACTERIA NONE SEEN Normal NONE SEEN [facility] Comment on above: Performed By: #### C BC #### [facility] [address] [place] [address] Dr. Nikky Man Bacteria identified Cx Nom (U) NOT INDICATED Normal [facility] Comment on above: Performed By: #### C BC #### [facility] [address] [place] [address] Dr. Nikky Man CAST NONE SEEN Normal NONE SEEN [facility] Comment on above: Performed By: #### C BC #### [facility] [address] [place] [address] Dr. Nikky Man Crystals LM Nom (Urine sed) NONE SEEN Normal NONE SEEN [facility] Comment on above: Performed By: #### C BC #### [facility] [address] [place] [address] Dr. Nikky Man Epithelial cells LM Ql (Urine sed) RARE Normal NONE SEEN /RARE [facility] Comment on above: Performed By: #### C BC #### [facility] [address] [place] [address] Dr. Nikky Man MUCOUS NONE SEEN Normal NONE SEEN [facility] Comment on above: Performed By: #### C BC #### [facility] [address] [place] [address] Dr. Nikky Man RBC 20-50 Abnormal 0-2 [facility] Comment on above: Performed By: #### C BC #### [facility] [address] [place], [place] [address] Dr. Nikky Man WBC 0-2 Abnormal NONE SEEN [facility] Comment on above: Performed By: #### C #### [facility] [address] [place], [place] [address] Dr. Nikky SANON Miscellaneous test 1on 06-05-2019 Miscellaneous Test [address] [facility] Comment on above: Result Comment: Test name Result Flag Units RefIntvl ---- PCA3 by TMA - Score 5 0-24 PCA3 by TMA - Result Negative A negative result is associated with decreased likelihood of a positive biopsy for prostate cancer. INTERPRETIVE DATA: PCA3 by TMA The [employer] PCA3 assay is an in vitro nucleic acid amplification test utilizing target capture, tobacco sorter-mediated amplification, and a hybridization-protection assay for amplicon [...] history and other relevant data. Performed by [facility], [address] [place] [id number] [email or web address], Jae Marquez MD - Lab. Director Performed By: #### [id number] #### [facility] [address] [place] [address] [facility] Miscellaneous test 1on 05-29-2019 [facility] Prompt [id number] Normal [facility] Comment on above: Result Comment: Ca ected result; previously reported as pca3 [id number] on 05/28/2019 at 19:45 by V/AUT Performed By: #### [id number] #### [facility] [address] [place] [address] Urinalysis, reflex to micros copicon 11-28-2018 Bilirubin Ql (U) Negative Normal Negative [facility] Clarity (U) Clear Normal Clear [facility] Color (U) Yellow Normal Straw/[place]idal[facility] Glucose Ql (U) >=[address] [facility] Hemoglobin Ql (U) Negative Normal Negative [facility] Ketones Ql (U) Negative Normal Negative [facility] Leukocyte esterase Test strip Ql (U) Negative Normal Negative [facility] Nitrite Ql (U) Negative Normal Negative [facility] pH (U) 5.5 [pH] Normal 5.0-9.0 [facility] Protein Ql (U) Negative Normal Negative [facility] Specific gravity (U) [Rel density] 1.031 Normal 1.005-1.03 [facility] Urobilinogen Qn (U) 0.2 {Chandni'U}/dL Normal < 2.0 [facility] Vital Signs Date Time Vital Sign Value Performing Clinician Facility 01-10-2024 08:43-0500 Body height 177.8 cm [facility] 01-10-2024 08:43-0500 Body mass index (BMI) [Ratio] 34.2 kg/m2 [facility] 01-10-2024 08:43-0500 Body weight 108.12 kg [facility] 01-10-2024 08:43-0500 Diastolic blood pressure 76 mm[Hg] [facility] 01-10-2024 08:43-0500 Heart rate 75 /min [facility] 01-10-2024 08:43-0500 Respiratory rate 12 /min [facility] 01-10-2024 08:43-0500 Systolic blood pressure 173 mm[Hg] [facility] 12-17-2023 11:31-0500 Blood Pressure Location [facility] 12-17-2023 11:31-0500 Diastolic blood pressure 100 mm[Hg] [facility] 12-17-2023 11:31-0500 Heart rate 70 /min [facility] 12-17-2023 11:31-0500 Respiratory rate 16 /min [facility] 12-17-2023 11:31-0500 Systolic blood pressure 151 mm[Hg] [facility] 10-29-2023 14:25-0500 Blood Pressure Location [facility] 10-29-2023 14:25-0500 Diastolic blood pressure 88 mm[Hg] [facility] 10-29-2023 14:25-0500 Heart rate 87 /min [facility] 10-29-2023 14:25-0500 Respiratory rate 16 /min [facility] 10-29-2023 14:25-0500 Systolic blood pressure 138 mm[Hg] [facility] 10-23-2023 11:30-0500 Body height 177.8 cm Sp Ball Other [facility] 10-23-2023 11:30-0500 Body mass index (BMI) [Ratio] 32.77 kg/m2 Sp [facility] Other [facility] [employer] Other 10-23-2023 11:30-0500 Body weight 103.6 kg Sp Ball Other [facility] 10-23-2023 11:30-0500 Diastolic blood pressure 89 mm[Hg] Sp Ball Other [facility] 10-23-2023 11:30-0500 Systolic blood pressure 162 mm[Hg] Sp Ball Other [facility] 10-05-2023 14:15-0500 Blood Pressure Location [facility] 10-05-2023 14:15-0500 Diastolic blood pressure 82 mm[Hg] [facility] 10-05-2023 14:15-0500 Heart rate 80 /min [facility] 10-05-2023 14:15-0500 Respiratory rate 16 /min [employer] [employer] [facility] 10-05-2023 14:15-0500 Systolic blood pressure 144 mm[Hg] Duran NILL [facility] 04-24-2023 11:00-0400 Body height 177.8 cm Sp Ball Other [facility] [employer] Other 04-24-2023 11:00-0400 Body mass index (BMI) [Ratio] 34.38 kg/m2 Sp Ball Other [employer] Other 04-24-2023 11:00-0400 Body weight 108.68 kg Sp Ball Other [employer] Other 04-24-2023 11:00-0400 Diastolic blood pressure 80 mm[Hg] Sp Ball Other [employer] Other 04-24-2023 11:00-0400 Respiratory rate 12 /min Sp Ball Other [employer] Other 04-24-2023 11:00-0400 Systolic blood pressure 138 mm[Hg] Sp Ball Other [employer] Other 02-14-2023 15:15-0400 Body height 177.8 cm [employer] Other [employer] Other 02-14-2023 15:15-0400 Body mass index (BMI) [Ratio] 35.15 kg/m2 [facility] [employer] Other [employer] Other 02-14-2023 15:15-0400 Body weight 111.13 kg [facility] Other [employer] Other 01-22-2023 11:00-0500 Body height 177.8 cm Sp Ball Other [employer] Other 01-22-2023 11:00-0500 Body mass index (BMI) [Ratio] 35.44 kg/m2 Sp Ball Other [employer] Other 01-22-2023 11:00-0500 Body weight 112.04 kg Sp Ball Other [employer] Other 01-22-2023 11:00-0500 Diastolic blood pressure 84 mm[Hg] Sp Ball Other [employer] Other 01-22-2023 11:00-0500 Respiratory rate 12 /min Sp Ball Other [employer] Other 01-22-2023 11:00-0500 Systolic blood pressure 136 mm[Hg] Sp Chowdary Other [employer] Other 12-18-2022 15:12-0500 Blood Pressure Location [facility] 12-18-2022 15:12-0500 Diastolic blood pressure 72 mm[Hg] Pelon COLES [facility] 12-18-2022 15:12-0500 Heart rate 68 /min Pelon COLES [facility] 12-18-2022 15:12-0500 Respiratory rate 16 /min Pelon COLES [facility] 12-18-2022 15:12-0500 Systolic blood pressure 127 mm[Hg] Pelon COLES [facility] 12-14-2022 15:30-0500 Body height 177.8 cm Alfonzo Ashford II Other [employer] Other 12-14-2022 15:30-0500 Body mass index (BMI) [Ratio] 34.29 kg/m2 Alfonzo Ashford II Other [employer] Other 12-14-2022 15:30-0500 Body weight 108.41 kg Alfonzo Toussaintle II Other [employer] Other 08-28-2022 09:20-0400 Diastolic blood pressure 84 mm[Hg] Pacc 2 Work Phone: [facility] 08-28-2022 09:20-0400 Heart rate 72 /min Pacc 2 Work Phone: [facility] 08-28-2022 09:20-0400 Systolic blood pressure 152 mm[Hg] Pacc 2 Work Phone: [facility] 08-28-2022 09:16-0400 Body height 175.3 cm Pacc 2 Work Phone: [facility] 08-28-2022 09:16-0400 Body temperature 98.49 [degF] Pacc 2 Work Phone: [facility] 08-28-2022 09:16-0400 Body weight 105.23 kg Pacc 2 Work Phone: [facility] 08-28-2022 09:16-0400 Respiratory rate 16 /min Pacc 2 Work Phone: [facility] 08-28-2022 09:16-0400 SaO2% (BldA) [Mass fraction] 98 % Pacc 2 Work Phone: [facility] 08-11-2022 10:49-0400 Body weight 99.79 kg Noelle Vega MD Work Phone: [facility] 08-11-2022 10:49-0400 Diastolic blood pressure 89 mm[Hg] Noelle Vega MD Work Phone: [facility] 08-11-2022 10:49-0400 Heart rate 66 /min Noelle Vega MD Work Phone: [facility] 08-11-2022 10:49-0400 Systolic blood pressure 176 mm[Hg] Noelle Vega MD Work Phone: [facility] 03-13-2022 15:03-0400 Blood Pressure Location Pelon COLES [facility] 03-13-2022 15:03-0400 Diastolic blood pressure 87 mm[Hg] Pelon COLES [facility] 03-13-2022 15:03-0400 Heart rate 78 /min Pelon COLES [facility] 03-13-2022 15:03-0400 Systolic blood pressure 164 mm[Hg] Pelon COLES [facility] Encounters Encounter Date Encounter Type Care Provider Facility Start: 12-19-2024 ambulatory Pelon COLES Facili ty:[facility] [place] Start: 01-10-2024 End: 01-10-2024 ambulatory [facility] Work Phone: Start: 01-10-2024 End: 01-10-2024 Patient encounter procedure [facility] Work Phone: Start: 12-19-2023 ambulatory Pelon COLES Facili ty:[facility] [place] Start: 12-17-2023 End: 12-18-2023 ambulatory Pelon COLES Facility:[facility] [place] Start: 12-17-2023 End: 12-17-2023 Patient encounter procedure Pelon COLES [facility] Start: 12-14-2023 ambulatory Pelon COLES Facili ty:[facility] [place] Start: 11-28-2023 End: 11-29-2023 ambulatory Pelon COLES Facility[facility] Start: 11-28-2023 End: 11-28-2023 Lab Drop off Pelon COLES [facility] Start: 11-27-2023 End: 11-28-2023 ambulatory Pelon COLES Facility:[facility] [place] Start: 11-27-2023 End: 11-27-2023 Patient encounter procedure Pelon COLES [facility] Start: 11-23-2023 End: 11-23-2023 ambulatory pS Chowdary Other [employer] Other Start: 11-23-2023 Telephone encounter Sp JOHNSON [facility] Start: 11-14-2023 End: 11-15-2023 ambulatory Duran R NILL Facility: [place] Start: 11-14-2023 End: 11-14-2023 Patient encounter procedure Duran R NILL General Surgery Nill/Said [place] Start: 11-05-2023 ambulatory Pelon COLES Facility : [place] Start: 11-01-2023 End: 11-01-2023 ambulatory Sp Chowdary Other [employer] Other Start: 11-01-2023 Telephone encounter Sp JOHNSON [facility] Start: 10-31-2023 End: 11-01-2023 ambulatory Duran R DONOVANL Facility:CD:[id number] Start: 10-29-2023 End: 10-30-2023 ambulatory Pelon COLES Facility: [place] Start: 10-29-2023 End: 10-29-2023 Patient encounter procedure Pelon COLES [facility] Start: 10-23-2023 End: 10-23-2023 ambulatory Sp Chowdary Other [employer] Other Start: 10-23-2023 Office outpatient vi sit 25 minutes Sp Chowdary [facility] Start: 10-23-2023 End: 10-23-2023 Patient encounter procedure [facility] Work Phone: Start: 10-05-2023 End: 10-06-2023 ambulatory Duran R NILL Facility: [place] Start: 10-05-2023 End: 10-05-2023 Patient encounter procedure Duran R NILL General Surgery [facility] [place] Start: 09-11-2023 End: 09-11-2023 ambulatory Pelon Coles Facility:[facility] Start: 09-11-2023 End: 09-11-2023 ambulatory DO Sp Chowdary Work Phone: [facility] Work Phone: Start: 09-11-2023 End: 09-11-2023 Patient encounter procedure DO Sp Chowdary Work Phone: [facility] [place] Work Phone: Start: 09-02-2023 End: 09-02-2023 ambulatory Sp Chowdary Other [employer] Other Start: 09-02-2023 Telephone encounter Sp Chowdary [facility] Start: 08-08-2023 End: 08-08-2023 ambulatory Sp Chowdary Other [employer] Other Start: 08-08-2023 Nursing evaluation o f patient and report Sp Chowdary [facility] Start: 07-20-2023 End: 07-20-2023 ambulatory Sp Chowdary Other [employer] Other Start: 07-20-2023 Telephone encounter Sp Chowdary [facility] Start: 06-18-2023 ambulatory Pelon R COLES Facili ty:[facility] [place] Start: 06-12-2023 End: 06-13-2023 ambulatory Pelonneela COLES Facility[facility] Start: 05-15-2023 End: 05-15-2023 ambulatory Sp Chowdary Other [employer] Other Start: 05-15-2023 Telephone encounter Sp Chowdary [facility] Start: 04-26-2023 ambulatory RADHA RIVERA . Facili ty:[facility] Start: 04-24-2023 End: 04-24-2023 ambulatory Sp Chowdary Other [employer] Other Start: 04-24-2023 Office outpatient vi sit 25 minutes Sp Chowdary [facility] Start: 04-10-2023 ambulatory NARENDRANATH LAKSHMIPATHY . Facility:[facility] Start: 03-23-2023 End: 03-24-2023 ambulatory RADHA RIVERA . Facility:[facility] Start: 03-08-2023 End: 03-08-2023 ambulatory Sp Chowdary Other [employer] Other Start: 03-08-2023 Telephone encounter Sp [facility] Start: 03-06-2023 End: 03-06-2023 ambulatory NARENDRANATH LAKSHMIPATHY . Facility:[facility] Start: 02-26-2023 Encounter for genera l adult medical examination without abnormal findings NARENDRANATH LAKSHMIPATHY . [facility] Start: 02-22-2023 End: 02-23-[address] SP CHOWDARY Facility:[facility] Start: 02-22-2023 End: 02-23-2023 ambulatory NARENDRANATH LAKSHMIPATHY . Facility:[facility] Start: 02-22-2023 End: 02-23-2023 ambulatory NARENDRANATH LAKSHMIPATHY . Facility:[facility] Start: 02-22-2023 End: 02-23-2023 Encounter for general adult medical examination without abnormal findings NARENDRANATH LAKSHMIPATHY . Facility:[facility] Start: 02-14-2023 End: 02-14-2023 ambulatory Sp Chowdary [facility] [employer] Other Start: 02-14-2023 Office outpatient vi sit 25 minutes Alfonzo Ashford II [facility] Start: 02-05-2023 End: 02-05-2023 ambulatory Sp Chowdary Other [employer] Other Start: 02-05-2023 Telephone encounter Sp [facility] Start: 01-22-2023 End: 01-22-2023 ambulatory Sp Chowdary Other [employer] Other Start: 01-22-2023 Encounter for genera l adult medical examination without abnormal findings Sp Chowdary [facility] Start: 01-22-2023 Periodic preventive med est patient 40-64yrs Sp Chowdary [facility] Start: 12-18-2022 End: 12-19-2022 ambulatory Pelon COLES Facility:[facility] Start: 12-18-2022 End: 12-18-2022 Patient encounter procedure ePlon COLES [facility] Start: 12-14-2022 End: 12-14-2022 ambulatory Sp Chowdary [facility] [employer] Other Start: 12-14-2022 FQHC visit new patient Alfonzo boo II [facility] Start: 12-12-2022 End: 12-12-2022 Patient encounter procedure Duran CRANDALL General [facility] [place] Start: 12-05-2022 End: 12-06-[address] PELON COLES . Facility: Start: 11-28-2022 Letter encounter Sarah matos Start: 09-27-2022 End: 09-28-[address] PELON COLES . Facility: Start: 09-26-2022 End: 09-26-2022 ambulatory NOELLE VEGA Facility:[facility] Start: 09-26-2022 End: 09-26-2022 Patient encounter procedure Noelle Vega MD Work Phone: Urology Comment on above: Nephrolithiasis (Estefania jeannie Dx); Calculus of kidney with calculus of ureter Start: 09-12-2022 Orders Only Noelle Matthew Work Phone: Urology Comment on above: Hyperkalemia (Primar y Dx) Start: 09-11-2022 End: 09-12-2022 ambulatory NOELLE VEGA Facility:[facility] Start: 08-28-2022 End: 08-28-2022 ambulatory NOELLE VEGA Facility:[facility] Start: 08-28-2022 End: 08-28-2022 Admission to [facility] [address] Work Phone: [facility] Start: 08-28-2022 End: 08-28-2022 Preprocedural examination done Pac 2 Work Phone: Pre Anesthesia Start: 08-28-2022 Encounter for other preprocedural examination [facility] Start: 08-28-2022 End: 08-29-2022 ambulatory NOELLE [...] End: 08-28-2022 Subsequent hospital visit by physician [facility] ([facility]) Work Phone: [facility] Radiology CT Scan Comment on above: Calculus of kidney w ith calculus of ureter [N20.2] Start: 08-24-2022 Telephone encounter Noelle banuelos MD Work Phone: Urology Comment on above: Schedule Surgery Start: 08-16-2022 Telephone encounter Noelle banuelos MD Work Phone: Urology Comment on above: Other (CD from [facility]) Start: 08-11-2022 End: 08-11-2022 ambulatory Jennifer Singleton [...] CHOWDARY Facility:[facility] Start: 06-05-2022 Letter encounter Sarah ealt Start: 06-01-2022 End: 06-02-[address] SP CHOWDARY Facility:[facility] Start: 05-25-2022 End: 05-25-[address] SP CHOWDARY Facility:[facility] Start: 05-16-2022 End: 05-17-[address] SP CHOWDARY Facility:[facility] Start: 05-08-2022 Encounter for other preprocedural examination DR PELON COLES . [facility] Start: 05-05-2022 End: 05-05-[address] PELON COLES . Facility:[facility] Start: 05-05-2022 End: 05-05-2022 Patient encounter procedure Pelon COLES [facility] Start: 05-04-2022 End: 05-05-[address] PELON COLES . Facility:[facility] Start: 05-04-2022 End: 05-05-2022 Encounter for other preprocedural examination DR PELON COLES . Facility:[facility] Start: 05-01-2022 End: 05-02-[address] SP CHOWDARY Facility:[facility] Start: 04-21-2022 End: 04-21-[address] SP CHOWDARY Facility:[facility] Start: 03-14-2022 End: 03-14-2022 Patient encounter procedure Pelon COLES [facility] Start: 03-13-2022 End: 03-13-2022 Patient encounter procedure Pelon COLES [facility] Start: 01-19-2022 Adult health examination Rohan Chowdary Other [place] Other Start: 02-26-2017 End: 02-27-2017 ambulatory UNKNOWN PROVIDER Facility:[facility] Procedures Date Procedure Procedure Detail Performing Clinician Start: 11-27-2023 Transrectal biopsy of prostate using ultrasound guidance Pelon COLES Start: 11-27-2023 Transurethral insertion of prostatic urethral lift implant Pelon COLES Start: 10-31-2023 Colonoscopy Duran MANJames Start: 10-31-2023 Esophagogastroduodenoscopy Duran CRANDALL Start: 09-11-2023 MR prostate wo/w con DO Sp Chowdary Work Phone: Start: 09-26-2022 Urnls dip stick/tablet rgnt auto w/o microscopy Noelle Vega MD Work Phone: Start: 08-28-2022 Antibody screen NOELLE VEGA Comment on above: Order Comment: Specimen Type: BLOOD SPEC IMENOrdering Facility: [facility] Address: [address] [place] [address] Performed By: #### T [id number] ####JOELLE BLOOD BANKCLIA [id number] [address] [place] Start: 08-28-2022 Ct abdomen & pelvis w/o contrast material Noelle Vega MD Work Phone: Start: 08-11-2022 Urnls dip stick/tablet rgnt auto w/o microscopy Noelle Vega MD Work Phone: Start: 08-30-2021 Cystoscopy Pelon COLES Start: 08-24-2020 Cystoscopy Pelon COLES Start: 12-16-2019 Cystoscopy Pelon COLES Start: 09-19-2019 Colonoscopy Duran DONOVANJames Start: 10-19-2017 Colonoscopy Duran CRANDALL Start: 02-26-2017 *SPECIMEN FOR SURGICAL PATHOLOGY UNKNOWN [...] bone tumor Pelon COLES ankle surgery 1 Pelon AYALA Comment on above: x4 (1993, 1996, 1997, 1999) Colonoscopy Pelon COLES Lithotripsy Duran CRANDALL Screening for malign ant neoplasm of prostate Sp Chowdary Other Transurethral water vapor ablation of prostate Pelon COLES Plan of Treatment Date Care Activity Detail Author Start: 02-18-2027 PROSTATE CANCER SCREENING DISCUSSION PROSTATE CANCER SCREENING DISCUSSION [facility] Start: 02-26-2023 Hemoglobin A1c/Hemoglobin.total in Blood HBA1C [facility] Start: 09-19-2022 End: 11-19-2022 Basic metabolic 2000 panel - Serum or Plasma BASIC METABOLIC PNL Lab Routine Hyperkalemia Expected: 09/19/2022 (Approximate), Expires: 11/19/2022 [facility] Work Phone: Comment on above: Expected: 09/19/2022 (Approximate), Expi res: 11/19/2022 Start: 08-28-2022 End: 10-28-2022 aPTT in Platelet poor plasma by Coagulation assay ACTIVATED PTT Lab Routine Nephrolithiasis Gross hematuria Expected: 08/28/2022, Expires: 10/28/2022 [facility] Work Phone: Comment on above: Expected: 08/28/2022, Expires: Start: 08-28-2022 End: 10-28-2022 Bacteria identified in Urine by Culture URINE CULTURE Microbiology Routine Nephrolithiasis Expected: 08/28/2022, Expires: 10/28/2022 [facility] Work Phone: Comment on above: Expected: 08/28/2022, Expires: 2 Start: 08-28-2022 End: 10-28-2022 CBC W Auto Differential panel - Blood CBC + DIFF Lab Routine Nephrolithiasis Expected: 08/28/2022, Expires: 10/28/2022 [facility] Work Phone: Comment on above: Expected: 08/28/2022, Expires: 2 Start: 08-28-2022 End: 10-28-2022 Comprehensive metabolic 2000 panel - Serum or Plasma COMP METABOLIC PANEL Lab Routine Nephrolithiasis Expected: 08/28/2022, Expires: 10/28/2022 [facility] Work Phone: Comment on above: Expected: 08/28/2022, Expires: 2 Start: 08-28-2022 End: 10-28-2022 CONFIRM BLOOD TYPE CONFIRM BLOOD TYPE Blood Bank Routine Pre-op evaluation Expected: 08/28/2022, Expires: 10/28/2022 [facility] Work Phone: Comment on above: Expected: 08/28/2022, Expires: 2 Start: 08-28-2022 End: 10-28-2022 Hemoglobin A1c in Blood [facility] Work Phone: Comment on above: Expected: 08/28/2022, Expires: 2 Start: 08-28-2022 End: 10-28-2022 PT panel - Platelet poor plasma by Coagulation assay PROTHROMBIN TIME/PT Lab Routine Nephrolithiasis Gross hematuria Expected: 08/28/2022, Expires: 10/28/2022 [facility] Work Phone: Comment on above: Expected: 08/28/2022, Expires: 2 Start: 08-28-2022 End: 10-28-2022 TYPE AND SCREEN,30 DAY TYPE AND SCREEN,30 DAY Blood Bank Routine Nephrolithiasis Expected: 08/28/2022, Expires: 10/28/2022 [facility] Work Phone: Comment on above: Expected: 08/28/2022, Expires: 2 Start: 08-19-2022 Influenza vaccination Influenza Vaccine (#1) [facility] Start: 08-11-2022 End: 10-11-2022 25-hydroxyvitamin D3 [Mass/volume] in Serum or Plasma VITAMIN D 25 HYDROXY Lab Routine Nephrolithiasis Secondary hyperparathyroidism of renal origin (HCC) Expected: 08/11/2022, Expires: 10/11/2022 [facility] Work Phone: Comment on above: Expected: 08/11/2022, Expires: 2 Start: 08-11-2022 End: 10-11-2022 Parathyrin.intact [Mass/volume] in Serum or Plasma PTH INTACT BLD Lab Routine Nephrolithiasis Expected: 08/11/2022, Expires: 10/11/2022 [facility] Work Phone: Comment on above: Expected: 08/11/2022, Expires: 2 Start: 08-11-2022 End: 10-11-2022 Urinalysis complete panel - Urine URINALYSIS, WITH MICROSCOPIC Lab Routine Nephrolithiasis Expected: 08/11/2022, Expires: 10/11/2022 [facility] Work Phone: Comment on above: Expected: 08/11/2022, Expires: 2 Start: 11-19-2021 DEPRESSION ASSESSMENT DEPRESSION ASSESSMENT [facility] Start: 11-19-2017 Annual wellness visit Annual Wellness Visit ([id number]) [facility] Start: 2017 PROSTATE CANCER SCREENING DISCUSSION PROSTATE CANCER SCREENING DISCUSSION [facility] Start: 02-22-2012 Measurement of occult blood in single stool specimen FIT [facility] Start: 02-22-2012 Screening for malignant neoplasm of colon CRC Screening [facility] Start: 02-22-2012 Shingles (RZV) Vaccine (1 of 2) Shingles (RZV) Vaccine (1 of 2) [facility] Start: 02-22-2012 SHINGRIX VACCINE (1 of 2) SHINGRIX VACCINE (1 of 2) [facility] Start: 2007 COLOGUARD (FIT-DNA) COLOGUARD (FIT-DNA) [facility] Start: [address] [facility] Start: 2007 COLORECTAL CANCER SCREENING COLORECTAL CANCER SCREENING [facility] Start: [address] COLONOGRAPHY [facility] Start: 2007 DIABETES SCREEN DIABETES SCREEN [facility] Start: 2007 FECAL OCCULT BLOOD FECAL OCCULT BLOOD [facility] Start: [address] [facility] Start: 1997 Lipid panel Cholesterol [facility] Start: 1997 LIPID SCREEN LIPID SCREEN [facility] Start: 1981 Urine microalbumin profile DTAP,TDAP,TD (1 - Tdap) [facility] Start: 02-22-1980 ANNUAL PCP TEAM CHRONIC DISEASE VISIT ANNUAL PCP TEAM CHRONIC DISEASE VISIT [facility] Start: 02-22-1980 BP CONTROLLED (<130/80) BP CONTROLLED (<130/80) [facility] Start: 02-22-1980 Hepatitis B surface antibody level LDL CHOLESTEROL [facility] Start: 02-22-1980 Hepatitis C screening Hepatitis C Antibody [facility] Start: 02-22-1980 HEPATITIS C SCREENING HEPATITIS C SCREENING [facility] Start: 02-22-1980 HIV SCREENING HIV SCREENING [facility] Start: 02-22-1980 Tetanus + diphtheria + acellular pertussis vaccine (product) Tdap Booster [facility] Start: 1977 HIV screening HIV Test [facility] Start: 1974 Adult depression screening assessment DEPRESSION SCREENING [facility] Start: 02-22-1972 3 comp foot exam completed DIABETIC FOOT EXAM [facility] Start: 02-22-1972 Hepatitis B screening URINE ALBUMIN:CREATININE RATIO [facility] Start: 02-22-1972 Hepatitis C antibody, confirmatory test DILATED RETINAL EXAM [facility] Start: 02-22-1968 PNEUMOCOCCAL (1 - PCV) PNEUMOCOCCAL (1 - PCV) [facility] Start: 1967 Hemoglobin A1c/Hemoglobin.total in Blood HBA1C [facility] Start: 1962 COVID-19 Vaccine (#1) COVID-19 Vaccine (#1) [facility] Start: 1962 Screening for malignant neoplasm of colon Colonoscopy [facility] End: 09-10-2023 Ct abdomen & pelvis w/o contrast material CT FLANK WO [facility] Radiology Routine Calculus of kidney with calculus of ureter 1 Occurrences starting 08/11/2022 until 09/10/2023 [facility] Work Phone: Comment on above: 1 Occurrences starting 08/11/2022 until 09/10/2023 [facility] Immunizations Immunization Date Immunization Notes Care Provider Fa cili 08-08-2023 influenza, injectabl e, quadrivalent, preservative free Sp Chowdary Other [facility] 07-20-2023 influenza virus vaccine, unspecified formulation Duran CRANDALL [facility] 08-13-2022 SARS-CoV-2 (COVID-19 ) [id number] Duran CRANDALL [facility] 07-26-2022 influenza virus vaccine, split virus (incl. purified surface antigen) Sp Chowdary Other [employer] Other 07-26-2022 influenza virus vaccine, unspecified formulation Druan CRANDALL [facility] 10-23-2021 COVID-19 Vaccine Pfi zer - Documentation Purposes Only Sp Chowdary Other [facility] 08-11-2021 influenza virus vaccine, split virus (incl. purified surface antigen) Sp Chowdary Other [employer] Other 08-11-2021 influenza virus vaccine, unspecified formulation [facility] 08-10-2021 influenza virus vaccine, unspecified formulation Pelon COLES [facility] 04-15-2021 SARS-CoV-2 (COVID-19 ) Ad26 vaccine, recombinant Pelon COLES [facility] 03-25-2021 SARS-CoV-2 (COVID-19 ) Ad26 vaccine, recombinant Pelon COLES [facility] 02-15-2021 SARS-CoV-2 (COVID-19 ) mRNA BNT-162b2 vax Duran CRANDALL [facility] 01-25-2021 SARS-CoV-2 (COVID-19 ) mRNA BNT-162b2 vax Duran T2 SystemsJames [facility] 01-13-2021 tetanus and diphther ia toxoids, adsorbed, preservative free, for adult use (5 Lf of tetanus toxoid and 2 Lf of diphtheria toxoid) Sp Chowdary Other [facility] 07-20-2020 influenza virus vaccine, split virus (incl. purified surface antigen) Sp Chowdary Other [employer] Other 07-20-2020 influenza virus vaccine, unspecified formulation [facility] 08-18-2019 influenza virus vaccine, split virus (incl. purified surface antigen) Sp Chowdary Other [employer] Other 08-18-2019 influenza virus vaccine, unspecified formulation [facility] 07-20-2019 influenza virus vaccine, live, attenuated, for intranasal use Pelon COLES [facility] 08-26-2018 influenza virus vaccine, split virus (incl. purified surface antigen) Sp Chowdary Other [employer] Other 08-26-2018 influenza virus vaccine, unspecified formulation Pelon COLES [facility] 08-31-2017 influenza virus vaccine, unspecified formulation Pelon COLES [facility] 08-31-2017 tetanus and diphther ia toxoids, adsorbed, preservative free, for adult use (5 Lf of tetanus toxoid and 2 Lf of diphtheria toxoid) Sp Chowdary Other [facility] 10-02-2016 pneumococcal conjuga te vaccine, 13 valent Sp Chowdary Other [facility] 10-02-2016 pneumococcal Conjuga te, unspecified formulation; Translations: [Need for prophylactic vaccination against Streptococcus pneumoniae (pneumococcus)] Sp Chowdary Other [place] [employer] Other 07-25-2016 tetanus and diphther ia toxoids, adsorbed, preservative free, for adult use (5 Lf of tetanus toxoid and 2 Lf of diphtheria toxoid) Sp Chowdary Other [facility] 07-21-2015 tetanus and diphther ia toxoids, adsorbed, preservative free, for adult use (5 Lf of tetanus toxoid and 2 Lf of diphtheria toxoid) Sp Chowdary Other [facility] 06-21-2015 pneumococcal polysaccharide vaccine, 23 valent Sp Chowdary Other [facility] 07-30-2013 tetanus and diphther ia toxoids, adsorbed, preservative free, for adult use (5 Lf of tetanus toxoid and 2 Lf of diphtheria toxoid) Sp Chowdary Other [facility] 08-01-2012 tetanus and diphther ia toxoids, adsorbed, preservative free, for adult use (5 Lf of tetanus toxoid and 2 Lf of diphtheria toxoid) Sp Chowdary Other [facility] 07-30-2008 diphtheria, tetanus toxoids and acellular pertussis vaccine, unspecified formulation Sp Chowdary Other [facility] 10-02-2001 Td(adult) unspecifie d formulation Pelon COLES [facility] Payers Date Payer Category Payer Self-pay [id number] 2019 Private Health Insurance [facility] CHOICE PLUS [id number] 2019-Present [phone] [address] [place] [address] HMO [id number]. [id number] 2016 Medicare [id number] 2001 Medicare [id number]. 1.13.56.2 .7.3.123949.315 1962 Unknown [id number] 2.16.840.1.552582.3.579. 2.732 1962 Unknown [id number] 2.16.840.1.384946.3.579. 2.593 1962 Unknown [id number] 2.16.840.1.228987.3.579. 2.593 1962 Unknown [id number] 2.16.840.1.457878.3.579. 2.593 1962 Unknown [id number] 2.16.840.1.074570.3.579. 2.593 1962 Unknown [id number] 2.16.840.1.821889.3.579. 2.593 1962 Unknown [id number] 2.16.840.1.328203.3.579. 2.593 1962 Unknown [id number] 2.16.840.1.927936.3.579. 2.593 1962 Unknown [id number] 2.16.840.1.890966.3.579. 2.593 1962 Unknown [id number] 2.16.840.1.898812.3.579. 2.593 1962 Unknown [id number] 2.16.840.1.246435.3.579. 2.593 1962 Unknown [id number] 2.16.840.1.919260.3.579. 2.593 1962 Unknown [id number] 2.16.840.1.710367.3.579. 2.593 1962 Unknown [id number] 2.16.840.1.023816.3.579. 2.593 1962 Unknown [id number] 2.16.840.1.391677.3.579. 2.593 1962 Unknown [id number] 2.16.840.1.214927.3.579. 2.593 1962 Unknown [id number] 2.16.840.1.437424.3.579. 2.593 1962 Unknown [id number] 2.16.840.1.462719.3.579. 2.593 1962 Unknown [id number] 2.16.840.1.585550.3.579. 2.593 1962 Unknown [id number] 2.16.840.1.377360.3.579. 2.593 1962 Unknown [id number] 2.16.840.1.652011.3.579. 2.593 1962 Unknown [id number] 2.16.840.1.610272.3.579. 2.593 1962 Unknown [id number] 2.16.840.1.130065.3.579. 2.727 1962 Unknown [id number] 2.16.840.1.444384.3.579. 2.727 1962 Unknown [id number] 2.16.840.1.864930.3.579. 2.727 1962 Unknown [id number] 2.16.840.1.715811.3.579. 2.727 1962 Unknown [id number] 2.16.840.1.998268.3.579. 2. 1962 Unknown [id number] 2.16.840.1.131487.3.579. 2.72 1962 Unknown [id number] 2.16.840.1.954665.3.579. 2. 1962 Unknown [id number] 2.16.840.1.766010.3.579. 2. 1962 Unknown [id number] 2.16.840.1.759008.3.579. 2. 1962 Unknown [id number] 2.16.840.1.836589.3.579. 2. 1962 Unknown [id number] 2.16.840.1.504432.3.579. 2. 1962 Unknown [id number] 2.16.840.1.139669.3.579. 2. 1962 Unknown [id number] 2.16.840.1.711849.3.579. 2. 1962 Unknown [id number] 2.16.840.1.042633.3.579. 2.727 1959 Medicare [id number] 1959 Unknown [id number] Private Health Insurance [facility] [id number] Unknown [employer] [id number] Unknown [id number] 2.16.840.1.957026.3.579. 2.531 Unknown [id number] 2.16.840.1.981453.3.579. 2.531 Unknown [id number] 2.16.840.1.029609.3.579. 2.531 Social History Date Type Detail Facility Start: 03-13-2022 End: 12-17-2023 Tobacco smoking status Never smoked tobacco (finding) [facility] Tobacco smoking status Never [facility] Sex Assigned At Male [facility] Tobacco smoking status NHIS Tobacco smoking consumption unknown [facility] Start: 1960 Sex Assigned At Not on file [facility] Start: 08-04-2022 End: 09-26-2022 Exposure to SARS-CoV-2 (event) Not sure [facility] History of tobacco use Passive smoker [facility] Start: 08-28-2022 Tobacco use and exposure Smokeless tobacco non-user [facility] Start: 08-28-2022 End: 09-11-2022 Alcohol intake Ex-drinker (finding) [facility] Start: 1960 Sex Assigned At Male F [facility] Medical Equipment Procedure Code Equipment Code Equipment Origin al Text Equipment Identifier Dates Stent Inlay Opti ma 7r 26cm [id number] Start: 09-11-2022 Insulin U-500 Syringe-Needle (Bd Insulin Syringe U-500) 1/2 mL 31 gauge x 15/64 syringe Start: 01-08-2024 Functional Status Date Assessment Result Facility 12-17-2023 Functional Status N/A [facility] 10-29-2023 Functional Status N/A [facility] 10-05-2023 Functional Status N/A [facility] Functional Status N/A [facility] Clinical Notes 03-13-2022 to 12-17-2023 Note Date [...] Follow these instructions at home: Medicines Take jtmz-tfw-cjrmsan and prescription medicines only as told by [...] provider. Document Revised: 02/01/2022 Document Reviewed: 02/01/2022 [employer] Patient Education 2022 [employer]. Follow Up Care 12/13/2023 11:10:14 With:SANKET PRECIADO, Pelon Mujica, URL Address: [facility] [address], [place] [phone] When: Unknown Comments:1 yr w/ PSA and JYOTI [facility] 11-23-2023 Evaluation note Encounter Date Diagnosis Assessment [...] 130 Decrease ISS to avoid hypoglycemic episodes [facility] Other 12-14-2023 Evaluation note* Encounter Date Diagnosis Assessment Notes Treatment Notes Treatment Clinical Notes Oct, Type 2 diabetes mellitus with hyperglycemia (ICD-10 - E11.65) [facility] Other 12-11-2023 Hospital Discharge instructions Follow Up Care 10/29/2023 11:16:58 With:SANKET PRECIADO, Pelon Mujica, URL Address: [facility] [address], [place] [address]- When: Unknown Comments:Scheduled for TRUS/bx on 11/27/23. [facility] [place] 12-05-2023 Evaluation note* Encounter Date Diagnosis Assessment [...] use, the patient reduces the risk for AK, CVA, HTN, cardiac dysrhythmias and sudden cardiac [...] active. No change in medical therapy Oct, [facility] (current) use of insulin (ICD-10 - Z79.4) [facility] [facility] Other 11-17-2023 NoteChief Complaint consultation for anemia [...] tab(s), Oral, As Direct (more content not included)...[facility]:Result Comment: Electronically Signed By: KARLEY PRECIADO, Duran Quiñones\Date and Time Signed: 10/05/23 14:45 [id number] Hospital Discharge instructions Follow Up Care 10/02/2023 11:36:47 With:SANKET PRECIADO, Pelon Mujica, URL Address: [facility] [address], [place] [phone] When: Unknown [facility] 09-01-2023 Evaluation note* Encounter Date Diagnosis Assessment Notes Treatment Notes Treatment Clinical Notes Jul, Controlled type 2 diabetes mellitus with hyperglycemia, without long-term current use of insulin (ICD-10 - E11.65) [facility] Other 07-25-2023 Note [id number]:127[facility] 06-12-2023 NoteCustom Cystoscopy ? Voiding after the [...] if you have a fever over 100 degrees.[facility] 04-24-2023 Evaluation note* Encounter Date Diagnosis Assessment [...] use, the patient reduces the risk for AK, CVA, HTN, cardiac dysrhythmias and sudden cardiac [...] E11.3393) Control BS and close f/u w/ blind eyeletter Apr, Hyperlipidemia, mixe d (ICD-10 - E78.2) [...] [BMI ] 34.0-34.9, adult (ICD-10 - Z68.34) [facility] Other 04-06-2023 NoteCONSULTATION CONSULTATION DATE: 02/22/2023 TO: [...] our patients to inform us about any zitu-xtz-ivgnyxi medications or herbal remedies/nutritional supplements/alternative remedies. 2. [...] treatment options with their primary care provider.[facility] HospitalBihngzsj46-57-0098 Evaluation note * Encounter Date Diagnosis Assessment [...] move forward with anything in the future. [facility] [facility] Other 03-06-2023 Evaluation note* Encounter Date Diagnosis [...] is down from 13 - f/u Urology [facility] [facility] Other 01-30-2023 Hospital Discharge instructions Patient Education [...] urethra. Follow these instructions at home: Take ryqy-dst-tllvydh and prescription medicines only as told by [...] 11/05/2006 Document Revised: 09/30/2019 Document Reviewed: 12/10/2017 [employer] Patient Education 2019 [employer]. Follow Up Care 11/30/2022 15:02:18 With:SANKET PRECIADO, Pelon Mujica, URL Address: [facility] [address], [place] [address]- When: Unknown [facility] 01-26-2023 Evaluation note* Encounter Date Diagnosis Assessment [...] does have some posttraumatic osteoarthritis and is xnwz-uo-crob in the medial compartment. He has had [...] 3 months to check on his progress. [employer] Other 11-08-2022 NoteHNO ID: [id number] Author: Noelle Vega MD Service: ? Author [...] patient: Yes Procedure confirmed with physician and support analyst: Yes Sign In: History and Physical Exam [...] urine metabolic studies if indicated. 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 documented in [facility] History of Present illness Narrative* Noelle Vega [...] patient: Yes Procedure confirmed with physician and support analyst: Yes Sign In: History and Physical Exam [...] indicated. Noelle Vega MD documented in this encounterWilson [facility]10-25-2022 NoteHNO ID: [id number] Author: Flor Sahu PA-C Service: Hospital Medicine Author Type: Physician Flight Control Specialist Type: Plan of Care Filed: 09/12/2022 12:58 [...] Lopez DATE: September 12, 2022 TIME: 12:57 [facility] HospitalPbdcbpsj97-79-6638 NoteHNO ID: [id number] Author: GUERA Granados Service: Care Management Author Type: Grease Renderer Type: Care Mgt Initial Assessment Filed: 09/12/2022 11:00 AM Note Text: 10:58 AM CARE MANAGEMENT: ASSESSMENT AND DISCHARGE PLAN SERVICE DATE: September 12, 2022 SERVICE TIME: 10:59 AM PRIMARY CARE PHYSICIAN: Sp Chowdary DO Primary Contact: Extended Emergency Contact Information Primary Emergency Contact: Ayala L[place] [employer] Relation: Spouse ADMISSION STATUS: Extended Recovery Insurance Provider: [facility] CHOICE PLUS NEEDS PRIOR TO DISCHARGE Needs Prior to Discharge: To Be Determined;Pharmacy Bedside Delivery;Discharge Transportation POTENTIAL TRANSITION PLANS Home Based on clinical judgement, Care Management will address the following needs: No transitional/discharge planning needs at this time Patient's perception of need for this admission: kidney stone ADVANCE DIRECTIVES Current Advance Directive: None Health Director Attempted to Assist with AD Completion: Yes [...] discharge within 30 days: No PATIENT SCREEN Patient/Edger Liner Stated Goals: To have reduction in pain;To [...] at this time. FREEDOM OF CHOICE EXPLAINED: [place] of Choice Given: No Reason Not Given: No placements necessary Are you interested in bedside delivery of your medications? Yes ASSESSMENT AND PLAN: Mr Lopez reports his will transport him home to [facility] at discharge. He has no anticipated transitional care needs for discharge. SIGNATURE: GUERA Granados PATIENT NAME: Dat Lopez DATE: September 12, 2022 TIME: 10:58 AM CONTACT #: [id number] [id number] NoteHNO ID: [id number] Author: Valdo Mcghee MD Service: Urology Author Type: Resident Type: Progress Notes Filed: 09/12/2022 10:45 AM Note Text: [facility] UROLOGY PROGRESS NOTE Name: Dat Lopez Bed: AV-5E-534/AV-5E-534 Date: 09/12/2022 ASSESSMENT AND PLAN Dat Lopez is a 62 year old male with PMHx of HLD, DM2, KUNAL, BPH, HTN, and nephrolithiasis now POD#1 s/p left miniPCNL w/ stent placement. Update: labs stable, hyperkalemia resolved. Urine cleared significantly w/ traction, can TOV now. Plan for d/c after w/o captuo catheter if patient is emptying well. Please document post void residual in the chart. Discussed w/ Dr. Vega. Valdo Mcghee MD PGY-5, Urology Pager: [phone] 10:45 AM 09/12/2022 Interval/daily plan: Doing well. [...] Vega. Valdo Mcghee MD PGY-5, Urology Pager: [phone] After 1800 and on weekends please page [phone] for assistance. SUBJECTIVE -Patient doing well -Pain: [...] -- 1.67* GLUC -- -- -- 214* [facility]10-24-2022 NoteHNO ID: [id number] Author: Noelle Vega MD Service: Urology Author [...] infusion 100 mL/hr INTRAVENOUS CONTINUOUS phenol 1 [place] (CHLORASEPTIC) 1 [place] MUCOUS MEMBRANE (TOPICAL MOUTH AND THROAT) q [...] September 11, 2022 4:19 PM PLEASE CONTACT GLYCERIN SUPERVISOR OVERNIGHT IF ANY QUESTIONSLogan Regional HospitalBhzoeszj46-95-2165 NoteHNO ID: [id number] Author: RT Anisha(R) Service: Radiology Author Type: Technologist Type: Progress [...] PERIPHERAL IV DATA: Not applicable SIGNED BY: RT Anisha(Sil) September 11, 2022 11:55 [facility] HospitalUgdgmflz51-04-1631 NoteHNO ID: [id number] Author: Caroline Larios APRN.EDUCATIONAL TECHNOLOGY COORDINATOR Service: ? Author Type: Nurse Court Transcriber Type: Anesthesia Procedure Notes Filed: 09/11/2022 7:58 AM Note Text: ANESTHESIOLOGY PROCEDURE NOTE Airway General Information Procedure Start Time/Medication Administration: 09/11/2022 7:40 AM Patient location during procedure: OR Staffing Anesthesiologist: Melisa Rangel MD EDUCATIONAL TECHNOLOGY COORDINATOR: Caroline Larios APRN.EDUCATIONAL TECHNOLOGY COORDINATOR Performed by: VIJAY Indications and Patient Condition Indications for airway management: anesthesia Preoxygenated: yes anesthesia circuit Patient position: sniffing Method: asleep Difficult Mask: No Airway Accessory: oral airway Final Airway Details Final airway type: endotracheal airway Final Endotracheal Airway: ETT Cuffed: yes Successful intubation technique: video laryngoscopy Devices used: Wynne Endotracheal tube insertion site: oral Blade size: #4 ETT size (mm): 7.5 Measured from: lips Measurement (cm): 22 Placement verified by: chest auscultation and capnometry Cormack-Lehane Classification: grade I - full view of glottis Number of attempts at approach: 1 Airway not difficult SIGNATURE: Caroline Larios APRN.EDUCATIONAL TECHNOLOGY COORDINATOR PATIENT NAME: Dat Lopez DATE: September 11, 2022 TIME: 7:57 AM CSN: [id number] [id number] NoteHNO ID: [id number] Author: ANASTASIIA Rodriguez Service: Radiology Author Type: [...] BY: ANASTASIIA RODRIGUEZ August 28, 2022 7:11 AMLogan [facility] HospitalTsigehae31-71-0732 History and physical note* Mechelle Burnett PA-C [...] Prior to Admission medications as of 08/28/22 0933 Medication Sig Last Dose Taking metFORMIN (GLUCOPHAGE) [...] fevers. Neuro: No history of TIA's, stroke, REMEDIAL PROJECT MANAGER tumor, impaired sensorium, hemiplegia, paraplegia or quadraplegia. No neurological symptoms or problems. Respiratory: No history of current cough or dyspnea, or pneumonia in the past 6 weeks. No history of respiratory/pulmonary symptoms or problems. Cardiovascular: +HTN, HLD, POTS- no recent episodes Negative for Recent AK, Angina, Chest Pain, CHF, DVT/PE GI: No [...] 2022 TIME: 9:57 AM documented in this encounterWilson [facility] Hospital10-10-2022 History of Present illness Narrative* ANASTASIIA Rodriguez - 08/28/2022 7:15 AM EDT Radiology Service Progress Note PATIENT NAME: Dat BUSHN: [id number] DATE OF SERVICE: August 28, 2022 TIME: [...] 28, 2022 7:11 AM documented in [address] encounterWilson [address] Hospital10-07-2022 Miscellaneous Notes* Telephone Encounter - Eddie Freed [facility] - 08/25/2022 4:35 PM EDT Patient scheduled for surgery on 09/11 at [facility] for PERCUTANEOUS NEPHROLITHOTOMY [2747] - Kidney - [...] verbalized understanding. * Telephone Encounter - Eddie Freed [facility] - 08/24/2022 3:52 PM EDT Called patient to review preop appts and instructions. Unable to leave message, no vm available. documented in this encounterWilson Street Hospital10-06-2022 Instructions* Patient Instructions* Mechelle Burnett PA-C - 08/24/2022 12:52 PM EDT PATIENT PREOPERATIVE INSTRUCTIONS Noelle Vega MD has scheduled you for your procedure at this surgery center: [facility]: [phone] --[address] [place] [address]. Please enter through the entrance closest to [...] Procedures: - YOU MUST HAVE A RESPONSIBLE ROLLER HELPER TAKE YOU HOME. A MIX HOUSE OPERATOR OR ACCOUNTING BOOKKEEPER CANNOT BE MADE A RESPONSIBLE ROLLER HELPER. - We recommend that a responsible person stays with you overnight to take care of you. - You cannot stay in a hotel alone after outpatient surgery. You will not be permitted to have yoursurgery, if you do not have someone to take care of you. If you already have an Advance Directive, please fax a copy to [phone] or email to for it to be [...] day. Mechelle Burnett PA-C documented in this encounterWilson Street Hospital09-28-2022 Miscellaneous Notes* Telephone Encounter - Bienvenido Del Cid Ma - 08/16/2022 5:19 PM EDT Images from cd have been uploaded into patient's chart. I spoke with patient and he does not need the cd back. I am putting it in the admin office to be destroyed. documented in this encounterWilson [address] Hospital09-23-2022 NoteHNO ID: [id number] Author: Noelle Vega MD Service: ? Author Type: Physician Type: Progress Notes Filed: 08/11/2022 11:28 AM Note Text: [facility] NEW PATIENT HISTORY AND PHYSICAL EXAM PATIENT INFO: Dat Lopez 62 year old REFERRING M.D.: Pelon Coles [address] [place] [address] PCP: No primary care provider on file. [...] Left NL, multiple stones. ESWL was performed. [facility] Then URS x 2 and ureteral stent [...] history of headaches, syncope (more content not included)...[facility]09-23-2022 Instructions* Patient Instructions* Noelle Vega MD - [...] procedure to prevent post operative flank pain. Yougabriellall return to the clinic after about 7 [...] video with more information on ureteral stents: [email or web address] Video on PCNL: [email or web address] If you have any additional questions regarding this procedure, please reach out to our team. Warm regards, Your [facility] Kidney Stone Team documented in this encounterWilson Street Hospital09-23-2022 History of Present illness Narrative* Noelle Vega MD - 08/11/2022 11:00 AM EDT Images from the original note were not included. [facility] NEW PATIENT HISTORY AND PHYSICAL EXAM PATIENT INFO: Dat Lopez 62 year old REFERRING M.D.: Pelon Coles [address] [place] [address] PCP: No primary care provider on file. [...] Left NL, multiple stones. ESWL was performed. [facility] Then URS x 2 and ureteral stent [...] Abdomen is Non-distended, soft, nontender. Musculoskeletal: Good quarter backer strength. Neurologic: Normal gait. Sensation grossly intact. [...] with URS. Plan for Sep 11 at [place] The patient decided to proceed with the [...] Vega MD Associate Staff documented in this encounterWilson [address] Hospital09-07-2022 NotePROCEDURE: XR HIP LT 2 3V W [...] Electronically authenticated by: GEMA OTTO Date: 2022-07-26 21:53[facility]04-26-2022 Hospital Discharge instructions Patient Education 03/14/2022 10:23:05 [...] With:Pelon COLES Address: [facility] [address] [place] [address]- Business (1) When: Unknown Comments:Office will call to schedule follow up [facility]04-25-2022 Hospital Discharge instructions Patient Education 03/13/2022 16:08:43 [...] Follow these instructions at home: Medicines Take ueet-fkk-elwydsu and prescription medicines only as told by [...] or the blood stops without treatment. Take tgij-gzg-ytfopcf and prescription medicines only as told by your health care provider. Drink enough fluid to keep your urine clear or pale yellow. This information is not intended to replace advice given to you by your health care provider. Make sure you discuss any questions you have with your health care provider. Document Released: 11/05/2006 Document Revised: 03/31/2020 Document Reviewed: 12/08/2017 [employer] Patient Education 2020 [employer]. Follow Up Care 03/13/2022 08:09:52 With:Pelon COLES MD, URL Address: [facility] [address], [place] [phone] When: Unknown [facility] evaluation + Plan note Future Appointments Appointment Date:03/14/2022 10:00:00 AM Scheduled Provider: Location:[facility] Appointment Type:Urology FT Appointment Date:05/05/2022 09:30:00 AM Scheduled Provider:Pelon COLES MD Location:[facility] Appointment Type:URO Office Visit [facility] evaluation + Plan note Future Appointments Appointment Date:05/05/2022 09:30:00 AM Scheduled Provider:Pelon COLES MD [facility] Office Visit Diagnostic Tests Pending * UroVysion Fish and Urine Cyto ([facility]) 03/14/22 [facility] Future Appointments Appointment Date:12/18/2022 02:30:00 PM Scheduled Provider:Pelon COLES MD Location:[facility] Appointment Type:URO Office Visit General Surgery [place] evaluation + Plan note Future Appointments Appointment Date:06/18/2023 09:45:00 AM Scheduled Provider:Pelon COLES MD Location:[facility] Appointment Type:URO Office Visit [facility] evaluation + Plan note Future Appointments Appointment Date:11/27/2023 03:30:00 PM Scheduled Provider:Pelon COLES MD Location:[facility] Appointment Type:URO Procedure 30 min Appointment Date:12/14/2023 10:30:00 AM Scheduled Provider:Pelon COLES MD [facility] Type:[facility]O Office Visit General Surgery [place] evaluation + Plan note Future Appointments Appointment Date:12/14/2023 10:30:00 AM Scheduled Provider:Pelon COLES MD Location:[facility] Appointment Type:URO Office Visit [facility] Evaluation + Plan note Future Appointments Appointment Date:12/14/2023 10:30:00 AM Scheduled Provider:Pelon COLES MD Location:[facility] Appointment Type:URO Office Visit Diagnostic Tests Pending * Prostate Histology ([facility]) 11/28/23 [facility] Future Appointments Appointment Date:12/19/2024 10:30:00 AM Scheduled Provider:Pelon COLES MD Location:[facility] Appointment Type:URO Office Visit Diagnostic Tests Pending * PSA Total 12/17/23 [facility] evaluation note* Diagnosis Screening for genitourinary condition- Primary Screening for other and unspecified genitourinary condition Calculus of kidney with calculus of ureter Calculus of kidney Staghorn calculus Calculus of kidney [facility] this encounter [facility] Diagnosis Nephrolithiasis- Primary Calculus of kidney Secondary hyperparathyroidism of renal origin (HCC) Secondary hyperparathyroidism (of renal origin) Gross hematuria Gross hematuria Nephrolithiasis Calculus of kidney documented in this encounter [facility] note* Diagnosis Pre-op evaluation- Primary Preoperative [...] Calculus of kidney documented in this encounter [facility] note* Diagnosis Calculus of kidney with calculus of ureter Calculus of kidney Nephrolithiasis Calculus of kidney documented in this encounter [facility] note* Diagnosis Hyperkalemia- Primary Hyperpotassemia documented in this encounter [facility] note* Diagnosis Nephrolithiasis- Primary Calculus of kidney Calculus of kidney with calculus of ureter Calculus of kidney documented in this encounter [facility] noteNo InformationNortAskforTask Other Evaluation noteNortAskforTask Other Evaluation noteNo assessment information available [facility] Work Phone: Evalucyfuf note* Diagnosis Onset Date Resolution Status [id number] acute Primary hypertension acute [id number] acute [facility] Work Phone: Hisokjj general Narrative - Reported* Type Description Date [...] Surgical History COLONOSCOPY Hospitalization History see surgeries [employer] Other [facility] general Narrative - Reported* Type Description Date [...] Surgical History COLONOSCOPY Hospitalization History see surgeries [facility] [employer] Other History [facility] - [facility] [employer] Other Hospital course Narrative No data available for this section [facility] Hospital Discharge instructions No data available for this section [facility] progress note No data available for this section [facility] reason for referral (narrative)* Reason *FU 02/13 Referral for low back pain Diagnosis 1 Lumbar spondylosis ( M47.816) Referral Organization [facility] alfred Referring Provider First Name Sp Referring Provider Last Name Epi Referring Provider Specialty Internal Me dicine Referred Organization [facility] Referred Provider Vandana Blount Referred Address [address], [place],[address] Referred Provider Specialty Pain Medicin e Referral Priority Routine General Notes Patient requesting r jazmine for pain management. He had seen pain management for years but his provider moved. He would like to become established with local pain clinic PeterJp dallasya 02/06/2023 01:53:36 PM >received today Johndu Smita 02/06/2023 01:55:11 PM >attachments made, notes locked, referral faxed Clinical Notes This patient has chr onic low back pain. He has received benefit from previous injections. P: [phone] F: [phone] [employer] Other Summary Purpose Family History Relationship Condition Age at Onset Recorded Date/T jackie father Unknown Not Specified Unknown Advance Directives Advance Directive Response Recorded Date/ Time Advance Directives No July 03, 2019 6:13am Advance Directive Response Recorded Date/ Time Advance Directives No July 03, 2019 5:13am Reason for Referral Specialty Diagnoses / Procedures Referred By Elena t Referred To Contact Cardiology Diagnoses Nephrolithiasis Procedures CONSULT TO CARDIOLOGY OFFICE/OUTPATIENT [facility] 60-74 MINUTES [place] [id number] [place] [address] Referral ID Status Reason Start Date Expiration Date Visits Requested Visits Authorized [id number] Pending Review PCP Requested Referral 08/11/2022 08/11/2023 1 1 Specialty Diagnoses / Procedures Referred By Contac t Referred To Contact Diagnoses Nephrolithiasis Procedures REFER TO PACC - PRE ANESTHESIA CONSULTATION CLINIC OFFICE/OUTPATIENT [facility] 60-74 MINUTES [place]elle V[place] [id number] [place] [address] Referral ID Status Reason Start Date Expiration Date Visits Requested Visits Authorized [id number] Pending Review PCP Requested Referral 08/11/2022 08/11/2023 1 1 Specialty Diagnoses / Procedures Referred By Contac t Referred To Contact CT IMAGING Diagnoses Calculus of kidney with calculus of ureter Procedures CT FLANK WO IVCON CT ABD & PELVIS W/O CONTRAST [place]elle Vega [place] [id number] [place] [address] Imaging Referral ID Status Reason Start Date Expiration Date Visits Requested Visits Authorized [id number] Authorized Auto-Generat ed Referral 08/11/2022 09/10/2023 1 [...] Check Up worsening neuropathy Reason for Visit [id number] Primary hypertension [id number] Additional Source Comments (unrecognized sect ion and content) No Status Records FoundNo Status Records FoundNo Status Records FoundNo Status Records FoundNo Status Records FoundNo Status Records FoundNo Status Records FoundNo Status Records Found INFORMATION SOURCE (unrecogn ized section and content) DATE CREATED AUTHOR 06/05/2019 [facility] DATE CREATED AUTHOR AUTHOR'S ORGANIZ ATION 01/03/2022 [facility] DATE CREATED AUTHOR AUTHOR'S ORGANIZ ATION 08/21/2022 [facility] DATE CREATED AUTHOR AUTHOR'S ORGANIZ ATION 09/16/2022 [facility] DATE CREATED AUTHOR AUTHOR'S ORGANIZ ATION 09/27/2022 [facility] DATE CREATED AUTHOR AUTHOR'S ORGANIZ ATION 04/04/2023 [facility] DATE CREATED AUTHOR AUTHOR'S ORGANIZ ATION 09/19/2023 [facility] DATE CREATED AUTHOR AUTHOR'S ORGANIZ ATION 12/18/2023 [facility] Team (unrecognized sect ion and content) [employer] Relationship Specialty Start Date End Date Sp Chowdary, DO [address] [facility] [place] [address] PCP - General Internal Medicine 09/07/22 [employer] Relationship Specialty Start Date End Date Sp Chowdary, [address] [facility] [place] [address] PCP - General Internal Medicine 09/07/22 Team Status: Active Member Role Status Dates Sp Chowdary DO Primary Care Provider Active Team Status: Inactive Member Role Status Dates Sp Chowdary DO Primary Care Provider Active Pelon Coles MD Attending Provider Active Team Status: Inactive Member Role Status Dates Sp Chowdary DO Attending Provider Active Sta rt: October 23, 2023 End: October 23, 2023 Team Status: Inactive Member Role Status Dates Sp Chowdary DO Primary Care Provide r, Attending Provider Active Start: January 10, 2024 End: January 10, 2024 Source Comments (unrecognize d section and content) In the event this informatio n is protected by the Federal Confidentiality of Alcohol and Drug Abuse Patient Records regulations: The Federal rules restrict any use of the information to criminally investigate or prosecute any alcohol or drug abuse patient.[facility] Hospital[facility] the event this information is protected by the Federal Confidentiality of Alcohol and Drug Abuse Patient Records regulations: The Federal rules restrict any use of the information to criminally investigate or prosecute any alcohol or drug abuse patient.[facility] HospitalIn the event this information is protected by the Federal Confidentiality of Alcohol and Drug Abuse Patient Records regulations: The Federal rules restrict any use of the information to criminally investigate or prosecute any alcohol or drug abuse patient.[facility] HospitalIn the event this information is protected by the Federal Confidentiality of Alcohol and Drug Abuse Patient Records regulations: The Federal rules restrict any use of the information to criminally investigate or prosecute any alcohol or drug abuse patient.[facility] HospitalIn the event this information is protected by the Federal Confidentiality of Alcohol and Drug Abuse Patient Records regulations: The Federal rules restrict any use of the information to criminally investigate or prosecute any alcohol or drug abuse patient.[facility] HospitalIn the event this information is protected by the Federal Confidentiality of Alcohol and Drug Abuse Patient Records regulations: The Federal rules restrict any use of the information to criminally investigate or prosecute any alcohol or drug abuse patient.[facility] HospitalIn the event this information is protected by the Federal Confidentiality of Alcohol and Drug Abuse Patient Records regulations: The Federal rules restrict any use of the information to criminally investigate or prosecute any alcohol or drug abuse patient.[facility] HospitalIn the event this information is protected by the Federal Confidentiality of Alcohol and Drug Abuse Patient Records regulations: The Federal rules restrict any use of the information to criminally investigate or prosecute any alcohol or drug abuse patient.[facility] Reason for Visit (unrecogniz ed section and content) Reason Comments New Patient Kidney stones Reason Comments Other CD from [facility] XR KUB Reason Comments Schedule Surgery Specialty Diagnoses / Procedures Referred By Elena apple Referred To Contact Diagnoses Nephrolithiasis Procedures REFER TO PACC - PRE ANESTHESIA CONSULTATION CLINIC OFFICE/OUTPATIENT NEW HIGH MDM 60-[place] [address] [place] [address] Referral ID Status Reason Start Date Expiration Date Visits Requested Visits Authorized [id number] Pending Review PCP Requested Referral 08/11/2022 08/11/2023 1 1 Specialty Diagnoses / Procedures Referred By Elena apple Referred To Contact CT IMAGING Diagnoses Calculus of kidney with calculus of ureter Procedures CT FLANK WO IVCON CT ABD & [place]EL[place] [address] [place] [address] Ct Imaging Referral ID Status Reason Start Date Expiration Date V isits Requested Visits Authorized [id number] Closed Auto-Generate d Referral 08/11/2022 09/10/2023 1 [...] BE BASED ON THE PRIMARY CLINICAL RECORDS. [facility]. provides no warranty or guarantee of the accuracy or completeness of information in this document.
[2024-02-22 08:56] LABS: Anion Gap 14.1; BUN Creatinine Ratio 14.5; Calcium 9.4 mg/dL (8.5-10.1); Chloride 103 mmol/L (98-107); Estimated GFR (African America 49 (>=60); Estimated GFR (Non-African Ame 40 (>=60); Glucose 192 mg/dL (74-106); Potassium 4.1 mmol/L (3.5-5.1); Sodium 140 mmol/L (136-145)
== END 2024-02-22 07:57 | disposition home or self-care (01) ==
LOC: LAB 07:57
PROVIDERS: PCP Internal Medicine; Visit Provider Internal Medicine
DX: I10 Essential (primary) hypertension (principal)
CPT/HCPCS: 36415; 80048

== ENCOUNTER 2024-05-06 07:01 | Outpatient (OUT) | payer OTHER, MEDICARE, SELFPAY | END 2024-05-06 07:02 | disposition home or self-care (01) | LOC: PST 07:02 | PROVIDERS: PCP Internal Medicine; Visit Provider Urology | DX: Z01.818 Encounter for other preprocedural examination (principal); R31.0 Gross hematuria; Z85.51 Personal history of malignant neoplasm of bladder ==

== ENCOUNTER 2024-05-06 10:49 | Day surgery (SDC) | payer OTHER, MEDICARE, SELFPAY ==
[2024-05-06] MEDS: LIDOCAINE 2% JELLY 10 ML UR (11:41)
[2024-05-06 11:48] VITALS: BP 150/85; BP 152/89; PULSE 89; PULSE 93; O2SAT 98; O2SAT 99
--- NOTE | 2024-05-06 12:06 | PM.URSON ---
Urology Surgery Operative Note Operative Note Procedure Date: 05/06/24 Time Out Performed: yes Pre-op Diagnosis: Gross hematuria and clot retention Post-op Diagnosis: same as pre-op Procedures performed: 1. Cystoscopy. 2. Clot evacuation. 3. Placement of 18 Albanian Caputo catheter Anesthesia: local Primary Surgeon: Jono Fish Complications: None Estimated blood loss (mL): 20 Findings: 1. No bladder tumors. 2. Friable prostate #3. Clots within the bladder Specimens: None Drains: 18 Albanian Caputo catheter Indications for Procedures: This gentleman developed gross hematuria and clot retention. A Caputo catheter was placed yesterday. He now presents for cystoscopy and Caputo catheter change. Detailed description of Procedure: The patient was kept on the gurosseo bed and brought to the endoscopy suite. He was in the supine position. Timeout was done by all parties in the room. We all agreed upon the patient's identification and the planned procedures for this patient.2% Xylocaine jelly was passed per urethra after the genitalia were sterilely prepped and draped in the usual fashion. I started by passing a flexible cystoscope per urethra.The anterior urethra was normal. The prostatic urethra was long and near the bladder neck it seemed to be oozing a little bit. There was visual obstruction to the prostate.The patient did have a Rezum done years ago. Panendoscopy in the bladder showed clots. I used a 60 cc syringe and did clot evacuation through the scope. I then could inspect the mucosa. There was no evidence of any tumors or stones.The scope was brought back to the prostatic urethra and I verified 2 areas that were oozing a little bit. The scope was then removed. I then placed a 18 Albanian Caputo catheter in the bladder. 10 cc of fluid was placed in the balloon. I then irrigated through the Caputo numerous times and extracted remaining clots. He was then discharged to home.
== END 2024-05-06 12:13 | disposition home or self-care (01) ==
LOC: SURGOUT 10:50
PROVIDERS: PCP Internal Medicine; Visit Provider Urology
PROC: (CPT 52001; principal; 2024-05-06 09:30)
DX: R31.0 Gross hematuria (principal); R33.8 Other retention of urine; N40.0 Benign prostatic hyperplasia without lower urinary tract symptoms; Z79.899 Other long term (current) drug therapy
CPT/HCPCS: 52001

== ENCOUNTER 2024-05-12 08:44 | Outpatient (OUT) | payer OTHER, MEDICARE, SELFPAY ==
--- OUTSIDE RECORDS SUMMARY | 2024-05-12 08:49 | XMS_ITS | CCD ---
Author Organization [facility] CliniSynj Care Team Providers Care Library Services Assistant Name Role Phone PROVIDER, UNKNOWN Attending Unavailable PROVIDER, UNKNOWN Admitting Unavailable CARTER GODFREY Referring Unavailable SP CHOWDARY Primary Care Physician Unavailable Primary Care Provider Unavailrigoberto e Unavailable Primary Care Provider UnavailNOELLE Montero Attending Unavailable PELON COLES Referring Unavailable Sp Chowdary DO Primary Care Provider NOELLE VEGA Attending Unavailable SILVIA, NOELLE Admitting Unavailable ZAMPINI, NOELLE Referring Unavailable ZAMPINI, NOELLE Referring Unavailable ZAMPINI, NOELLE Referring Unavailable SILVIA, NOELLE Attending Unavailable SP CHOWDARY Primary Care Unavailable Unavailable Primary Care Provider Unavailrigoberto e Alfonzo Ashford II Unavailable Sp Chowdary Unavailable LAKSHMIPATHY ., LIANA Attending Britni vailable LUPEMIJOJO ., LIANA Admitting Britni vailable EPI, DR ESTEVEZ Primary Care Unavailable Gema Otto Consulting Unavailable LUPEMIPATHNico ., LIANA Consulting Britni agueda CHOWDARY, DR ESTEVEZ Primary Care Unavailable PAY ., DR WASHINGTON Admitting Unavailable PAY ., DR WASHINGTON Attending Unavailable PAY ., DR WASHINGTON Consulting Unavailable COLES ., DR BIRD Admitting Unavailable COLES ., DR BIRD Attending Unavailable EPI, DR ESTEVEZ Primary Care Unavailable EPI, DR ESTEVEZ Primary Care Unavailable COLES ., DR BIRD Admitting Unavailable COLES ., DR BIRD Attending Unavailable COLES ., DR BIRD Consulting Unavailable WEST, DR JI Smallwood Consulting Unavailable COLES ., DR BIRD Consulting Unavailable COLES ., DR BIRD Attending Unavailable COLES ., DR BIRD Admitting Unavailable EPI, DR ESTEVEZ Primary Care Unavailable HALKER ., RADHA Attending Unavailable HALKER .RADHA Admitting Unavailable EPI, DR ESTEVEZ Primary Care Unavailable COLES ., DR BIRD Consulting Unavailable COLES ., DR BIRD Attending Unavailable COLES ., DR BIRD Admitting Unavailable BALL, DR ESTEVEZ Primary Care Unavailable GARCIA, TAY Consulting Unavailable MCCORNACK, GEMA Consulting Unavailable COLES ., DR BIRD Consulting Unavailable MISC, DR WILLIAMSON Admitting Unavailable RUELAS, DR RADHA Salmon Primary Care Unavailable MISC, DR WILLIAMSON Attending Unavailable MISC, DR WILLIAMSON Consulting Unavailable ZiGema caicedo Consulting Unavailable BALL, DR ESTEVEZ Primary Care Unavailable COLES ., DR BIRD Consulting Unavailable COLES ., DR BIRD Admitting Unavailable COLES ., DR BIRD Attending Unavailable Zieber, Gema Consulting Unavailable COLES ., DR BIRD Consulting Unavailable COLES ., DR BIRD Attending Unavailable COLES ., DR BIRD Admitting Unavailable BALL, DR ESTEVEZ Primary Care Unavailable ZiebGema dallas Consulting Unavailable BALL, DR ESTEVEZ Admitting Unavailable BALL, DR ESTEVEZ Attending Unavailable BALL, DR ESTEVEZ Consulting Unavailable BALL, DR ESTEVEZ Primary Care Unavailable COLES ., DR BIRD Attending Unavailable COLES ., DR BIRD Consulting Unavailable COLES ., DR BIRD Admtulio Unavailable BALL, DR ESTEVEZ Primary Care Unavailable WEST, DR JI Smallwood Consulting Unavailable HALKER ., RADHA Attending Unavailable HALKER ., RADHA Consulting Unavailable BALL, DR ESTEVEZ Primary Care Unavailable HALKER ., RADHA Admitting Unavailable LAKSHMIPATHY ., NARSANDRAATH Attending Britni vailable LAKSHMIPATHY ., NARENDRANATH Consulting Britni vailable LAKSHMIPATHY ., NARENDDANAYATH Admitting Britni vailable BALL, DR ESTEVEZ Primary Care Unavailable LAKSHMIPATHY ., LIANA Attending Britni vailable LAKSHMIPATHY ., LIANA Consulting Britni vailable LAKSHMIPATHY ., LIANA Admitting Britni vailable BALL, DR ESTEVEZ Primary Care Unavailable COLES ., DR BIRD Attending Unavailable COLES ., DR BIRD Consulting Unavailable COLES ., DR BIRD Admitting Unavailable BALL, DR ESTEVEZ Primary Care Unavailable Gema Otto Consulting Unavailable RUELAS, DR RADHA Salmon Admitting Unavailable RUELAS, DR RADHA Salmon Attending Unavailable RUELAS, DR RADHA Salmon Primary Care Unavailable ZiebGema dallas Consulting Unavailable RUELAS, DR RADHA Salmon Consulting Unavailable BALL, DR ESTEVEZ Primary Care Unavailable COLES ., DR BIRD Admitting Unavailable COLES ., DR BIRD Attending Unavailable COLES ., DR BIRD Consulting Unavailable WEST, DR JI Smallwood Consulting Unavailable AGUBOSIM, DAT Consulting Unavailable DORKOSKIE, CATRINA Consulting Unavailable EPI, DR ESTEVEZ Primary Care Unavailable COLES ., DR BIRD Consulting Unavailable COLES ., DR BIRD Admitting Unavailable COLES ., DR BIRD Attending Unavailable Fabian, Gema Consulting Unavailable DORKOSKIE, CATRINA Consulting Unavailable LANGENBERG, REYNALDO Consulting Unavailable MCCORNACK, GEMA Consulting Unavailable EPI, DR ESTEVEZ Primary Care Unavailable COLES ., DR BIRD Consulting Unavailable COLES ., DR BIRD Admitting Unavailable COLES ., DR BRID Attending Unavailable WEST, DR JI Smallwood Consulting Unavailable LAKSHMIPATHY ., NARENDRANATH Attending Britni vailable LAKSHMIPATHY ., NARENDRANATH Consulting Britni vailable LAKSHMIPATHY ., NARENDRANATH Admitting Britni vailable BALL, DR ESTEVEZ Primary Care Unavailable DO Sp Chowdary Primary Care Provider MD Pelon Coles Attending Provider [phone] Sp Chowdary Primary Care Unavailable Dejon WARNER, Alfonzo Adrian Attending Unavailabl e Dejon II, Alfonzo Adrian Admitting Unavailabl e BallSp Primary Care Unavailable Dejon II, Alfonzo Adrian Attending Unavailabl e Sargent II, Alfonzo Adrian Admitting Unavailabl e Coles, Pelon Attending Unavailable Coles, Pelon Admitting Unavailable BallSp Primary Care Unavailable COLES, Pelon Mujica Attending Unavailable NILL, Duran Mujica Attending Unavailable COLES, Pelon Mujica Attending Unavailable NILL, Duran Mujica Attending Unavailable COLES, Pelon Mujica Attending Unavailable COLES, Pelon Mujica Attending Unavailable COLES, Pelon Mujica Attending Unavailable COLES, Pelon Mujica Attending Unavailable COLES, Pelon Mujica Attending Unavailable COLES, Pelon Mujica Attending Unavailable COLES, Pelon Mujica Attending Unavailable COLES, Pelon Mujica Attending Unavailable COLES, Pelon Mujica Attending Unavailable COLES, Pelon Mujica Attending Unavailable COLES, Pelon R Referring Unavailable COLES, Pelon Mujica Admitting Unavailable COLES, Pelon Mujica Admitting Unavailable COLES, Pelon Mujica Attending Unavailable COLES, Pelon Mujica Attending Unavailable COLES, Pelon Mujica Admitting Unavailable NILL, Duran Mujica Attending Unavailable Allergies Allergy Classification Reported Allergen(s) Allergy Type Date of Onset Reaction(s) Facility Benzodiazepines (1 source) diazePAM; Translations: [diazepam] Drug Allergy Nausea and vomiting [facility] exenatide (1 source) exenatide; Translations: [exenatide] Drug Allergy Nausea and vomiting [facility] Opioid Agonists (1 source) Morphine; Translations: [morphine] Drug Allergy 11-05-20 14 Itching (finding) [facility] Thiazolidinediones (glitazones) (1 source) pioglitazone; Translations: [pioglitazone] Drug Allergy Eruption of skin (disorder) [facility] (20 sources) diazePAM; Translations: [DIAZEPAM] Drug Allergy 02-26-20 17 Vomiting, GI Upset [facility] (4 sources) exenatide; Translations: [BYETTA] Drug Allergy 02-27-[address] [facility] (20 sources) pioglitazone; Translations: [PIOGLITAZONE] Drug Allergy 02-27-20 17 Eruption of skin (disorder), Other, Swelling [facility] (20 sources) exenatide; Translations: [exenatide] Drug Allergy 10-22-20 13 Vomiting [facility] (14 sources) Morphine; Translations: [morphine] Drug Allergy 11-05-20 14 Other (qualifier value), Itching (finding) [facility] (3 sources) diazePAM; Translations: [Valium] Drug Allergy [facility] Repository (1 source) Morphine Drug Allergy [facility] (3 sources) pioglitazone; Translations: [Actos] Drug Allergy [facility] (8 sources) Vancomycin Drug Allergy 01-10-20 24 Unknown, Unknown Reaction [facility] (3 sources) patient allergy list reviewed by nurse or physicia Propensity to adverse reactions 07-08-20 Comment:Done [employer] Other (1 source) Unable to Assess Drug allergy (disorder) 04-10-20 [facility] Repository (2 sources) Byetta Prefilled Pen; Translations: [Byetta Prefilled Pen] Propensity to adverse reactions (disorder) [facility] Repository Medications Current Medications Medication Drug Class(es) [...] Subcutaneous weekly for 28 days Apr, Active 0.5 ML tirzepatide 5 MG/ML Auto-Injector [Mounjaro] (2 sources) Start: 05-05-2024 Mounjaro 2.5 mg/0.5 mL subcutaneous solution Refills(s) 0 Start Date: 05/05/24 Status: Ordered amLODIPine 5 mg oral tablet (20 sources) Dihydropyridine Calcium Channel Nicolasa Start: 01-29-2024 End: 02-26-2024 take 5 mg by mouth twice daily Amlodipine Active 5 MG PO Twice daily 180 90 February 26, 2024 6:08pm Start: 11-01-2017 take 2.5 mg by mouth once daily amlodipine 2.5 mg, Oral, Daily, Refills(s) 0, High blood pressure Start Date: 11/01/17 Status: Ordered Start: 11-01-2017 End: 01-29-2024 take 5 mg by mouth once daily Amlodipine Discontinued 5 MG PO Daily January 08, 2024 1:00am January 29, 2024 8:26pm Comment on above: Take 5 mg by mouth. Take 5 mg by mouth o nce daily. AMLODIPINE BESYLATE-VALSARTAN ORAL (2 sources) AMLODIPINE BESYLATE-VALSARTAN ORAL Take 2.5 mg by mouth. 0 Active Basaglar KwikPen (10 sources) Start: 12-11-19 23 Basaglar KwikPen Refills(s) 0 Start Date: 12/11/22 Status: Ordered carvedilol 6.25 mg oral tablet (3 sources) alpha-Adrenergic Nicolasa, beta-Adrenergic Nicolasa Start: 02-05-20 End: 02-26-20 take 6.25 mg by mouth every twelve hours at mealtime Carvedilol Active 6.25 MG PO Every 12 hours 180 90 February 26, 2024 6:08pm must administer with a meal/food cephalexin 500 mg oral capsule (1 source) Cephalosporin Antibacterial Start: 09-11-20 End: 09-14-20 take 1 capsule by mouth three times daily cephALEXin (KEFLEX) 500 mg capsule Take 1 capsule by mouth three times daily for 3 days. 9 capsule 0 09/11/2022 09/14/2022 Active Comment on above: Take 1 capsule by mo [facility] three times daily for 3 days. ciprofloxacin 500 mg oral tablet (6 sources) Quinolone Antimicrobial Start: 05-05-20 End: 05-19-20 take 1 tablet by mouth every twelve hours Cipro 500 mg Tab 500 mg = 1 tab(s), Oral, q12hr, X 14 day(s), # 28 tab(s), Refills(s) 0, Pharmacy: [facility]/pharmacy #[id number], 177, cm, 05/05/24 11:12:00 EDT, Height/Length Dosing, 102, kg, 05/05/24 11:12:00 EDT, Weight Dosing Start Date: 05/05/24 Stop Date: 05/19/24 Status: Ordered Start: 10-02-2023 End: 10-09-2023 Cipro 500 mg Tab 500 mg = 1 tab(s), Oral, q12hr, Start 3 days prior to procedure, X 7 day(s), # 14 tab(s), Refills(s) 0, Pharmacy: [facility]/pharmacy #[id number], 177, cm, 06/12/23 16:16:00 EDT, Height/Length Dosing, 111, kg, 12/18/22 15:22:00 EST, Weight Dosing Start Date: 10/02/23 Stop Date: 10/09/23 Status: Ordered Start: 03-13-2022 [facility] Cipro 500 mg Tab 500 mg = 1 tab(s), Oral, Daily, take 1 day prior to procedure and 1 tab after procedure, # 2 tab(s), Refills(s) 0, Pharmacy: [facility]/pharmacy #[id number], 177, cm, 03/13/22 15:23:00 EDT, Height/Length Dosing, 112, kg, 03/13/22 15:23:00 EDT, Weight Dosing Start Date: 03/13/22 Status: Ordered gabapentin 100 mg oral capsule (20 sources) Anti-epileptic Agent Start: 01-22-2024 take 100 mg by mouth twice daily Gabapentin Active 100 MG PO Twice daily 180 90 January 22, 2024 12:51pm Start: 01-08-2024 End: 01-22-2024 take 100 mg by mouth once daily Gabapentin Discontinue d 100 MG PO Daily January 08, 2024 1:00am January 22, 2024 12:53pm Start: 11-01-2017 take 100 mg by mouth three times daily gabapentin 100 mg, Oral, TID, Refills(s) 0, Pain Start Date: 11/01/17 Status: Ordered take 1 capsule by [facility] once daily at bedtime Gabapentin 100 MG [...] SUBCUT Three times daily January 08, 2024 1:00am before meals Start: 10-01-2023 NovoLog as dir [...] 50 UNIT SUBCUT Daily January 08, 2024 1:00am Start: 11-23-2023 Lantus SoloSta r 100 UNIT/ML [...] instructions. Sliding scale 0 Active losartan potassium 50 mg oral tablet (20 sources) Angiotensin 2 Receptor Nicolasa Start: 02-05-2024 End: 02-26-2024 take 50 mg by mouth twice daily Losartan Active 50 MG PO Twice daily 180 90 February 26, 2024 6:09pm Start: 11-01-2017 End: 02-26-2024 take 100 mg by mouth once daily Losartan Discontinued 100 MG PO Daily January 08, 2024 1:00am February 26, 2024 6:03pm Comment on above: Take 100 mg by [...] oral tablet (20 sources) Biguanide Start: 01-08-2024 End: 01-22-2024 take 1000 mg by mouth twice daily Metformin Active 1000 MG PO Twice daily 180 90 January 22, 2024 12:51pm Start: 11-01-2017 take 1000 mg by mout h once daily metformin 1,000 mg, Oral, Daily, Refills(s) 0, High blood sugar Start Date: 11/01/17 Status: Ordered Start: 11-01-2017 take 1000 mg by mout h twice daily metformin 1,000 mg, Oral, BID, Refills(s) 0, High blood sugar Start Date: 11/01/17 Status: Ordered Comment on above: Take 1,000 mg by martha th twice daily. morphine sulfate 15 mg extended release [...] Pain. 0 Active Multivitamin (Daily Multi-Vitamin) tablet (2 sources) Start: 01-08-2024 take 1 tablet by mouth once daily Multivitamin (Daily Multi-Vitamin) tablet Active 1 TAB PO Daily January 08, 2024 1:00am Start: 01-08-2024 take 1 tablet by martha th once daily Multivitamin (Daily Multi-Vitamin) tablet Active 1 TAB PO Daily January 08, 2024 12:00am Multivitamins and Minerals (13 sources) Start: 11-02-2017 take 1 tablet by mouth once daily Multivitamins and Minerals 1 tablet, Oral, Daily, Refill(s) 0, Prophylaxis Start Date: 11/02/17 Status: Ordered pantoprazole 40 mg delayed release oral tablet (6 sources) Proton Pump Inhibitor Start: 11-14-2023 take [...] tablet (20 sources) HMG-CoA Reductase Inhibitor Start: 11-01-2017 take 40 mg by mouth once daily Pravastatin Active 40 MG PO Daily January 08, 2024 1:00am Comment on above: Take 40 mg by mouth once daily. Mestinon (10 sources) Start: 05-02-2021 Mestinon 60 mg, Daily, Refills(s) 0 Start Date: 05/02/21 Status: Ordered Start: 11-01-2017 take 60 mg by mouth three times daily pyridostigmine 60 mg, Oral, TID, myasthenia gravis, Refills(s) 0 Start Date: 11/01/17 Status: Ordered sertraline 100 mg oral tablet (20 sources) Serotonin Reuptake Inhibitor Start: 01-08-2024 take 100 mg by mouth once daily Sertraline Active 100 MG PO Daily January 08, 2024 1:00am Start: 11-01-2017 take 100 mg by mouth [...] once daily. sildenafil 100 mg oral tablet (3 sources) Phosphodiesterase 5 Inhibitor Start: 12-17-19 Viagra 100 mg Tab 100 mg = 1 tab(s), Oral, As Directed, PRN erectily dysfunction, Take on tab 1 hour before sexual activity, # 30 tab(s), Refills(s) 3, Pharmacy: [facility]/pharmacy #[id number], 177, cm, 12/17/23 11:33:00 EST, Height/Length Dosing, 104, kg, 12/17/23 11:33:00 EST, Weight Dosing Start Date: 12/17/23 Status: Ordered tamsulosin hydrochloride 0.4 mg oral capsule (3 sources) alpha-Adrenergic Nicolasa Start: 12-11-19 take 1 capsule by mouth once daily [...] on above: Take 1 capsule by mo [facility] daily at bedtime. Tirzepatide (1 source) Start: 03-25-20 Tirzepatide (Mounjaro) 2.5 mg/0.5 mL pen injector Active 2.5 MG SUBCUT every week 01 16March 25, 2024 12:00am vardenafil 10 mg oral tablet (1 source) Phosphodiesterase 5 Inhibitor Start: 01-10-20 take 10 mg by mouth once daily Vardenafil Active 10 MG PO Daily January 10, 2024 1:00am Completed/Discontinued Medications Medication Drug Class(es) Dates Sig (Normalized) Sig (Original) acetaminophen 325 mg / oxyCODONE hydrochloride 5 mg oral tablet (2 sources) Opioid Agonist Start: 2 End: 2 take 1 tablet by mouth every six hours as needed for pain oxyCODONE-acetaminophe n (PERCOCET) 5-325 mg tablet Indications: Acute post-operative pain Take 1 tablet by mouth every 6 hours as needed for pain (for severe pain). This medication can cause constipation. 5 tablet 0 09/11/2022 09/26/2022 Discontinued Comment on above: Take 1 tablet by martha th every 6 hours as needed for pain (for severe pain). This medication can cause constipation. CoQ-10 100 MG (2 sources) CoQ-10 100 MG as directed Orally Not-Taking docusate sodium 100 mg oral capsule (2 sources) Start: 2 End: 2 take 1 capsule by mouth twice daily docusate sodium (COLACE) 100 mg capsule Take 1 capsule by mouth twice daily. 28 capsule 0 09/11/2022 09/26/2022 Discontinued Comment on above: Take 1 capsule by [facility] twice daily. hydrALAZINE hydrochloride 10 mg oral tablet (2 sources) Arteriolar Vasodilator Start: 4 End: 4 take 10 mg by mouth twice daily Hydralazine Discontinued 10 MG PO Twice daily February 26, 2024 6:01pm March 25, 2024 9:17am hydroCHLOROthiazide 25 mg oral tablet (2 sources) Thiazide Diuretic Start: 4 End: 4 take 25 mg by mouth once daily Hydrochlorothiazide Discontinued 25 MG PO Daily February 05, 2024 4:36pm February 26, 2024 6:00pm K-Effervescent 25 mEq oral tablet, effervescent (6 sources) Start: 3 End: 4 take 1 tablet by mouth twice daily K-Effervescent 25 mEq oral tablet, effervescent 25 mEq = 1 tab(s), Oral, BID, X 90 day(s), # 180 tab(s), Refills(s) 3, Pharmacy: [facility]/pharmacy #[id number], 177, cm, 12/18/22 15:22:00 EST, Height/Length Dosing, 111, kg, 12/18/22 15:22:00 EST, Weight Dosing Start Date: 12/18/22 Stop Date: 12/13/23 Status: Ordered lidocaine hydrochloride 0.02 mg/mg topical gel (1 source) Antiarrhythmic, Amide Local Anesthetic Start: 2 End: 2 lidocaine urojet 2 % 11 mL topical gel (XYLOCAINE, GLYDO) meloxicam 15 mg oral tablet (15 sources) Nonsteroidal Anti-inflammator y Drug Start: 3 take 1 tablet by mouth every twenty-four hours Meloxicam 15 MG 1 tablet Orally Once a day Nov, Not-Taking/PRN 24 hr metoprolol succinate 50 mg extended release oral tablet (20 sources) beta-Adrenergic Nicolasa Start: 3 End: 4 take 50 mg by mouth once daily Metoprolol Succinate Discontinued 50 MG PO Daily January 08, 2024 1:00am February 05, 2024 4:07pm Start: 11-01-2017 take 25 mg by mouth once daily Lopressor 25 mg, Oral, Daily, Refills(s) 0, High blood pressure Start Date: 11/01/17 Status: Ordered take 1 capsule by [facility] once daily Metoprolol Succinate 50 MG 1 capsule Orally Once a day Active Comment on above: Take 50 mg by mouth once daily. Multi Complete - (14 sources) Multi Complete [...] 800-160 mg 1 tablet (BACTRIM DS,SEPTRA DS) tadalafil 10 mg oral tablet (20 sources) Phosphodiesterase 5 Inhibitor Start: 01-08-2024 End: 01-10-2024 take 10 mg by mouth once daily Tadalafil Discontinued 10 MG PO Daily January 08, 2024 1:00am January 10, 2024 11:06am Start: 08-17-2023 take 1 tablet by martha th every twenty-four hours Cialis 20 mg Tab 20 mg = 1 tab(s), Oral, As Directed, Take 1 tab 1 hour as directed prior to sexual activity. Don't exceed 1 tab in a 24 hour period., # 30 tab(s), Refills(s) 11, Pharmacy: [facility] [id number], 177, cm, 06/12/23 16:16:00 EDT, Height/Length Dosing, [...] period., # 30 tab(s), Refills(s) 3, Pharmacy: [facility] [id number], 177, cm, 03/13/22 15:23:00 EDT, Height/Length Dosing,... Start Date: 11/15/22 Status: Ordered Start: 03-13-2022 take 0.5 tablet by m out once daily Tadalafil (CIALIS) 20 mg tab(s) [...] Patient takes 0.5 tablet once a day triamcinolone acetonide 40 mg/ml injectable suspension (20 [...] Onset: 2 10-29-2019 Chronic Cancer of bladder (6 sources) History of malignant neoplasm of bladder; Translations: [Personal history of malignant neoplasm of bladder] Onset: 2 Episodic Cancer of other urinary organs (1 source) Malignant neoplasm of urinary organ; Translations: [Malignant neoplasm of urinary organ, unspecified] Chronic Cancer; other and unspecified primary (13 sources) H/O: malignant neoplasm 08-24-2020 Episodic Cardiac dysrhythmias (6 sources) Postural orthostatic tachycardia syndrome ; Translations: [POTS (postural orthostatic tachycardia syndrome)] Onset: 2 08-24-2022 Chronic Chronic kidney disease (10 sources) Chronic kidney disease; Translations: [Chronic kidney disease, unspecified] 10-01-2023 Chronic Deficiency and other anemia (20 sources) Anemia; Translations: [Anemia, unspecified] Onset: 3 Episodic Deficiency and other anemia (1 source) Anemia, unspecified; Translations: [Anemia, unspecified] 01-10-2024 Episodic Diabetes mellitus with complications (20 sources) Polyneuropathy due to type 2 diabetes mellitus; Translations: [Type 2 diabetes mellitus with diabetic polyneuropathy] Onset: 4 Chronic Diabetes mellitus without complication (20 sources) Type 2 diabetes mellitus; Translations: [Type 2 diabetes mellitus without complication] Onset: 7 08-21-2019 Chronic Disorders of lipid metabolism (20 sources) Hyperlipidemia; Translations: [Hyperlipidemia, unspecified] Onset: 8 08-24-2022 Chronic Esophageal disorders (7 sources) Gastro-esophageal reflux disease with esophagitis; Translations: [...] of ankle] Episodic Gastroduodenal ulcer (except hemorrhage) (7 sources) Gastric ulcer; Translations: [Gastric ulcer, unspecified [...] Vaccination given; Translations: [Encounter for immunization] Episodic Inflammatory conditions of male genital organs (3 sources) Acute prostatitis; Translations: [Acute prostatitis] Onset: 4 05-05-2024 Episodic Mood disorders (20 sources) Depressive disorder; Translations: [Recurrent major depression in full remission] Onset: 6 12-11-2022 Chronic Open wounds of extremities (3 sources) Open wound of hand except fingers without complication; Translations: [Puncture wound without foreign body of right hand, initial encounter] Episodic Osteoarthritis (20 sources) Arthritis; Translations: [Arthritis of right knee] Onset: 2 10-29-2019 Chronic Other aftercare (3 sources) nursing home (current) use of insulin; Translations: [Type 2 diabetes mellitus without complication, with long-term current use of insulin (HCC)] Onset: 2 Episodic Other aftercare (1 source) Long-term current use of drug therapy; Translations: [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] Episodic Other aftercare (3 sources) High risk drug monitoring status; Translations: [nursing home (current) use of opiate analgesic] Episodic Other aftercare (7 sources) Long-term current use of insulin; Translations: [nursing home (current) use of insulin] 01-08-2024 Episodic Other [...] colon] Episodic Other and unspecified benign neoplasm (17 sources) History of polyp of colon; Translations: [Personal history of colonic polyps] Onset: 3 Episodic Other and unspecified benign neoplasm (7 sources) Benign neoplasm of ascending colon; Translations: [Benign neoplasm of ascending colon] Onset: 3 Episodic Other circulatory disease (10 sources) Postural orthostatic tachycardia syndrome 12-11-2022 Episodic [...] renal origin (HCC)] Onset: 2 Chronic Other diseases of kidney and ureters (2 sources) Clot retention of urine 05-05-2024 Episodic Other disorders of stomach and duodenum (17 sources) Gastroparesis syndrome; Translations: [Gastroparesis] Episodic Other endocrine disorders (10 sources) Hyperparathyroidism 12-11-2022 Chronic Other endocrine disorders (1 source) Disorder of adrenal gland; Translations: [Other specified disorders of adrenal gland] Onset: 2 Chronic Other gastrointestinal disorders (1 source) Swollen abdomen; Translations: [Abdominal distension (gaseous)] Onset: 3 Episodic Other gastrointestinal disorders (8 sources) Abdominal bloating 10-05-2023 Episodic Other injuries and conditions due to external causes (1 source) History of fall; Translations: [History of falling] Episodic Other male genital disorders (19 sources) Male erectile dysfunction, unspecified; Translations: [Erectile dysfunction] Onset: 2 Chronic Other nervous system disorders (1 source) Other chronic pain; Translations: [OTHER CHRONIC PAIN] Onset: 3 Chronic Other nervous system disorders (1 source) Neuropathy of lower limb; Translations: [Unspecified mononeuropathy of right lower limb] 01-10-2024 Chronic Other nervous system disorders (1 source) Unspecified mononeuropathy of right lower limb; Translations: [Mononeuritis of lower limb, unspecified] 01-10-2024 Chronic Other nervous system disorders (1 source) [...] Chronic Other nutritional; endocrine; and metabolic disorders (18 sources) Obesity; Translations: [Other obesity due to [...] 11-03-2015 Episodic Other aftercare (1 source) Other nursing home (current) drug therapy; Translations: [OTH DETENTION CURRENT DRUG THERAPY] Onset: 05-29-2022 Episodic Other aftercare (1 source) nursing home (current) use of oral hypoglycemic drugs; Translations: [[employer]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] Onset: 05-08-2022 Episodic [...] Name Value Interpretation Reference Range Facil ity Insurance Correspondenceon 0 05-08-2024 Insurance Correspondence [id number] Normal [facility] C Urineon 05-07-2024 Bacteria identified Cx Nom (U) Microbiology PROCEDURE: Urine Culture [R1] SOURCE: U CleanCatch BODY SITE: COLLECTED DATE/TIME: 05/05/2024 12:28 EDT RECEIVED DATE/TIME: 05/05/2024 17:54 EDT START DATE/TIME: 05/05/2024 17:54 EDT FREE TEXT SOURCE: SANKET PRECIADO, Pelon COLES MD, Pelon Mujica FINAL REPORTS Final Report [] Verified Date/Time: 05/07/2024 09:59 EDT 1,000 cfu/ml Mixed skin contaminants Performing Locations R1: This test was performed at: [facility], [address] [place] [address], [id number] , [place], Normal [facility] Comment on above: Performed By: #### 2 [id number] #### [facility] [address] [place] [id number] Consent for Procedure/Surger yon 05-06-2024 Consent for Procedure/Surgery [id number] Normal [facility] Ambulatory Visit Summaryon 0 05-05-2024 Ambulatory Visit Summary DAT LOPEZ :1960 Visit Date:05/05/2024 Ambulatory Visit Instructions Your Diagnosis Clot retention of urine Acute prostatitis with hematuria Elevated PSA BPH with obstruction/lower urinary tract symptoms Kidney stones History of kidney stones Erectile dysfunction History of bladder cancer Tests Performed CT Urogram -- Results Pending -- Please visit your patient portal for your results or contact your primary care physician. Your Care Team Attending Physician - SANKET PRECIADO, Pelon Mujica Primary Care Physician - SP CHOWDARY DO This Is Your Medications List ciprofloxacin (Cipro 500 mg Tab) sildenafil (Viagra 100 mg Tab) Contact prescribing physician if questions or concerns amlodipine gabapentin insulin aspart (NovoLog) insulin glargine (Basaglar KwikPen) losartan metformin metoprolol (metoprolol 50 mg ER Tab) multivitamin with minerals (Multivitamins and Minerals) pantoprazole (Pantoprazole [address] Tab) pravastatin sertraline tirzepatide (Mounjaro 2.5 mg/0.5 mL subcutaneous solution) Procedures Performed Transrectal biopsy of prostate using ultrasound guidance (11/27/2023), Colonoscopy (10/31/2023), EGD - esophagogastroduodenoscop y (10/31/2023), Cystoscopy (08/30/2021), Cystoscopy (08/24/2020), Cystoscopy (12/16/2019), Colonoscopy (09/2019), Colonoscopy (10/2017), Biopsy of prostate (2017), bladder tumor (2006), right leg bone tumor (2001), ankle surgery, Lithotripsy, Transurethral water vapour ablation of prostate. Discharge Vitals Temperature (Temporal Artery) 37 ?C Heart Rate (Peripheral) 85 Respiratory Rate 16 Blood Pressure 139/86 Height 177 cm Height 70 in Weight 102 kg Weight 224.4 lb BMI 32.56 What to do next Scheduled Follow-Up Appointments Sunday 10:30 AM EST With: Pelon COLES MD Where: [facility] Patient Educationon 05-05-20 Patient Education Infectious Disease Prostatitis Prostatitis is swelling or inflammation of the prostate gland, also called the prostate. This gland is about 1.5 inches wide and 1 inch high, and it is involved in making semen. The prostate is located below a man's bladder, in front of the rectum. There are four types of prostatitis: ? Chronic prostatitis (CP), also called chronic pelvic pain syndrome (CPPS). This is the most common type of prostatitis. It is associated with increased muscle tone in the area between the hip bones (pelvic area), around the prostate. This type is also known as a pelvic floor disorder. ? Chronic bacterial prostatitis. This type usually results from an acute bacterial infection in the prostate gland that keeps coming back or has not been treated properly. The symptoms are less severe than those caused by acute bacterial prostatitis, which lasts a shorter time. ? Asymptomatic inflammatory prostatitis. This type does not have symptoms and does not need treatment. This is diagnosed when tests are done for other disorders of the urinary tract or reproductive tract. ? Acute bacterial prostatitis. This type starts quickly and results from an acute bacterial infection in the prostate gland. It is usually associated with a bladder infection, high fever, and chills. This is the least common type of prostatitis. What are the causes? Bacterial prostatitis is caused by an infection from bacteria. Chronic nonbacterial prostatitis may be caused by: ? Factors related to the nervous system. This system includes thebrain, spinal cord, and nerves. ? An autoimmune response. This happens when the body's disease-fighting system attacks healthy tissue in the body by mistake. ? Psychological factors. These have to do with how the mind works. The causes of the other types of prostatitis are usually not known. What are the signs or symptoms? Symptoms of this condition depend on the type of prostatitis you have. Acute bacterial prostatitis Symptoms may include: ? Pain or burning during urination. ? Frequent and sudden urges to urinate. ? Trouble starting to urinate. ? Fever. ? Chills. ? Pain in your muscles or joints, lower back, or lower abdomen. Other types of prostatitis Symptoms may include: ? Sudden urges to urinate, or urinating often. ? Trouble starting to urinate. ? Weak urine stream. ? Dribbling after urination. ? Discharge coming from the penis. ? Pain in the testicles, the penis, or the tip of the penis. ? Pain in the area in front of the rectum and below the scrotum (perineum). ? Pain when ejaculating. How is this diagnosed? This condition may be diagnosed based on: ? A physical and medical exam. ? A digital rectal exam. For this, the health care provider may use a finger to feel the prostate. ? A urine test to check for bacteria. ? A semen sample or blood tests. ? Ultrasound. ? Urodynamic tests to check how your body handles urine. ? Cystoscopy to look inside your bladder or inside the part of your body that drains urine from the bladder (urethra). How is this treated? Treatment for this condition depends on the type of prostatitis. Treatment may involve: ? Medicines to relieve pain or inflammation, or to help relax your muscles. ? Physical therapy. ? Heat therapy. ? Biofeedback. These techniques help you control certain body functions. ? Relaxation exercises. ? Antibiotic medicine, if your condition is caused by bacteria. ? Sitz baths. These warm water baths help to relax your pelvic floor muscles, which helps to relieve pressure on the prostate. Follow these instructions at home: Medicines ? Take imnm-tse-urviodu and prescription medicines only as told by your health care provider. ? If you were prescribed an antibiotic medicine, take it as told by your health care provider. Do not stop using the antibiotic even if you start to feel better. Managing pain and swelling ? Take sitz baths as directed by your health care provider. For a sitz bath, sit in warm water that is deep enough to cover your hips and buttocks. ? If directed, apply heat to the affected area as often as told by your health care provider. Use the heat source that your health care provider recommends, such as a moist heat pack or a heating pad. ? Place a towel between your skin and the heat source. ? Leave the heat on for 20?30 minutes. ? Remove the heat if your skin turns bright red. This is especially important if you are unable to feel pain, heat, or cold. You may have a greater risk of getting burned. General instructions ? Do exercises as told by your health care provider, if you were prescribed physical therapy, biofeedback, or relaxation exercises. ? Keep all follow-up visits as told by your health care provider. This is important. Where to find more information ? [employer]: (more content not included)... Normal [facility] Urology Office/Clinic Noteon 05-05-2024 Urology Office/Clinic Note Chief Complaint gross hematuria HPI Staff Pt is here due to gross hematuria that started this past Sunday evening. States that he was fine and working on a project at home and the next time he urinated it was very dark red. States that he started passing blood clots as well. His PVR today is 532ml. He is not having any pain with this but states that last night he started feeling like his bladder was cramping so he took an Oxybutynin that he had on hand and it seemed to give him relief. Dysuria: no Incomplete bladder emptying: PVR today is 532ml Hematuria: yes since Sunday evening Frequency: yes states that he has to void every 5 -10 minutes Urgency: he states right now he constantly feels he has to void Nocturia: 1x last night Stream: states that he is straining a little and his stream is very weak Leaking: yes Post void dripping: yes Wearing pads/ Depends: no Urge incontinence: no Stress incontinence: no Incontinence without Sensory Awareness: no Abdominal pain: some bladder cramping last night Flank pain: no Sexual complaints: no History of Present Illness Tests reviewed: reviewed UA I have reviewed the previous health record [...] See HPI. Physical Exam Vitals & Measurements T: 37 ?C(Temporal Artery) HR: 85(Peripheral) RR: 16 BP: 139/86 HT: 70 in HT: 177 cm WT: 102 kg WT: 224.4 lb BMI: 32.56 General Appearance: alert, no distress, well nourished, well developed male. Genitourinary: normal scrotum, normal testes, normal urethra, normal epididymis, normal vas deferens/spermatic cord. Flank Pain: none. Bladder: nonpalpable. Assessment/Plan 1. Clot retention of urine (R33.8: Other retention of urine) PVR 532 cc. UA shows large blood and large leuks. Gross hematuria started last Sunday evening, very dark red urine. Was working on a projection at home but wasn't lifting anything very heavy. Then starting passing clots as well. Pt shares he does not have Parkinson's (was on problem list but has been removed) or MS. Pt does have a huge prostate per MRI. Discussed placing cath IO today then cysto tomorrow. -Send urine for cx today. -Schedule CTU. -Start Cipro 500 mg bid x 2 wk. SEs discussed. Rx sent to [facility]. -Will schedule cysto. The risks and benefits for cystoscopy have been discussed. The risks include bleeding, infection, and irritation of the bladder and urinary channel, among others. The patient, after being informed of procedural details and after questions have been answered, wishes to proceed. Full informed consent has been obtained. Will order Local anesthesia. 2. Acute prostatitis with hematuria (N41.0: Acute prostatitis) See #1. 3. Elevated PSA (R97.20: Elevated prostate specific antigen [...] no gross extracapsular extension seen. Prostate volume 140 mL. S/p TRUS/bx 11/27/23 - benign. -PSA and JANE due 11/2024. 4. BPH with obstruction/lower urinary tract symptoms (N40.1: Benign prostatic hyperplasia with lower urinary tract symptoms) S/p Rezum 12/2019. S/p Cysto 06/12/23 - Moderate prostatic hypertrophy with long lateral lobes. Visually enlarged and nearly touching each other. Part of median lobe protrudes into the bladder. Not currently taking any BPH meds. 5. Kidney stones (N20.0: Calculus of kidney) KUB 02/22/23 - A few tiny stones in the L kidney. 6. History of kidney stones (Z87.442: Personal history of urinary calculi) S/p cysto/L UD/L ureteroscopy/Holmium laser litho of L ureteral calculus and mult renal calculus/stone basket extraction/stent change done 06/08/22. Perc neph done also. 24 hr urine done 10/19/22: low citric acid, slightly elevated ox, slightly elevated urine Na. 7. Erectile dysfunction (N52.9: Male erectile dysfunction, unspecified) Stopped Cialis and started Viagra 100 mg prn at prior OV. 8. History of bladder cancer (Z85.51: (more content not included)... Normal [facility] Comment on above: Result Comment: Elec tronically Signed By: Pelon COLES MD\.br\Date and Time Signed: 05/05/24 12:21 EDT\.br\Electronically Co-Signed By: Jocelyne Moore\.br\Date and Time Co-Signed: 05/05/24 12:20 EDT Estimated glomerular filtrat ion rate (GFR) non- Americanon 02-22-2024 GFR/1.73 sq M.predicted among non-blacks MDRD (S/P/Bld) [Vol rate/Area] 40 mL/min/{1.73_m2} >=60 [facility] Laboratory - Chemistry and C hemistry - challengeon 02-22-2024 Calcium [Mass/Vol] 9.4 mg/dL 8.5-10.1 [facility] Chloride [Moles/Vol] 103 mmol/L 98-107 [facility] CO2 [Moles/Vol] 27.0 mmol/L 21.0-32.0 [facility] Creatinine [Mass/Vol] 1.73 mg/dL 0.70-1.30 [facility] GFR/1.73 sq M.predicted MDRD (S/P/Bld) [Vol rate/Area] 49 mL/min/{1.73_m2} >=60 [facility] Glucose [Mass/Vol] 192 mg/dL 74-106 [facility] Potassium [Moles/Vol] 4.1 mmol/L 3.5-5.1 [facility] Sodium [Moles/Vol] 140 mmol/L 136-145 [facility] Urea nitrogen [Mass/Vol] 25.0 mg/dL 7.0-18.0 [facility] Urea nitrogen/Creatini ne [Mass ratio] 14.5 mg/mg [facility] Serum or plasma anion gap de terminationon 02-22-2024 Anion gap [Moles/Vol] 14.1 mmol/L [facility] Basophils Auto (Bld) [#/Vol] on 01-26-2024 Basophils (Bld) [#/Vol] 0.0 10 3/uL 0.0-0.1 [facility] Basophils/100 WBC Auto (Bld) on 01-26-2024 Basophils/100 WBC (Bld) 0.4 % 0.2-2.0 [facility] Cholesterol in LDL Calc [Mas s/Vol]on 01-26-2024 Cholesterol in LDL [Mass/Vol] 72.0 mg/dL [facility] Comment on above: <100 mg/dl [id number] 0-129 mg/dl NEAR OR ABOVE [id number] mg/dl BORDERLINE [id number] mg/dl HIGH>190 mg/dl VERY HIGH Cholesterol in VLDL Calc [Ma ss/Vol]on 01-26-2024 Cholesterol in VLDL [Mass/Vol] 27.8 mg/dL [facility] Eosinophils/100 WBC Auto (Bl d)on 01-26-2024 Eosinophils/100 WBC (Bld) 5.1 % 0.9-7.0 [facility] Erythrocyte distribution wid th Auto (RBC) [Ratio]on 01-26-2024 Erythrocyte distribution width (RBC) [Ratio] 13.6 % 11.0-15.0 [facility] Estimated glomerular filtrat ion rate (GFR) non- Americanon 01-26-2024 GFR/1.73 sq M.predicted among non-blacks MDRD (S/P/Bld) [Vol rate/Area] 51 mL/min/{1.73_m2} >=60 [facility] Globulin Calc (S) [Mass/Vol] on 01-26-2024 Globulin (S) [Mass/Vol] 3.4 g/dL [facility] Glucose mean value [Mass/vol ume] in Blood Estimated from glycated hemoglobinon 01-26-2024 Average glucose Estimated from glycated hemoglobin (Bld) [Mass/Vol] 131 mg/dL [facility] Hematocrit Auto (Bld) [Volum e fraction]on 01-26-2024 Hematocrit (Bld) [Volume fraction] 43.6 % 42.0-54.0 [facility] Hemoglobin [Mass/volume] in Bloodon 01-26-2024 Hemoglobin (Bld) [Mass/Vol] 14.0 g/dL 14.0-18.0 [facility] Laboratory - Chemistry and C hemistry - challengeon 01-26-2024 Albumin [Mass/Vol] 3.9 g/dL 3.4-5.0 [facility] ALP [Catalytic activity/Vol] 92 U/L 46-116 [facility] ALT [Catalytic activity/Vol] 48 U/L 16-63 [facility] AST [Catalytic activity/Vol] 35 U/L 15-37 [facility] Bilirubin [Mass/Vol] 0.5 mg/dL 0.2-1.0 [facility] Calcium [Mass/Vol] 8.9 mg/dL 8.5-10.1 [facility] Chloride [Moles/Vol] 104 mmol/L 98-107 [facility] Cholesterol [Mass/Vol] 135 mg/dL <=200 [facility] Cholesterol in HDL [Mass/Vol] 36 mg/dL 40-60 [facility] Comment on above: > or =60 mg/dl - LOW CARDIOVASCULAR RISK<40 mg/dl - HIGH CARDIOVASCULAR RISK CO2 [Moles/Vol] 25.0 mmol/L 21.0-32.0 [facility] Creatinine [Mass/Vol] 1.42 mg/dL 0.70-1.30 [facility] GFR/1.73 sq M.predicted MDRD (S/P/Bld) [Vol rate/Area] mL/min/{1.73_m2} >=60 [facility] Glucose [Mass/Vol] 134 mg/dL 74-106 [facility] Potassium [Moles/Vol] 4.5 mmol/L 3.5-5.1 [facility] Protein [Mass/Vol] 7.3 g/dL 6.4-8.2 [facility] Sodium [Moles/Vol] 139 mmol/L 136-145 [facility] Triglyceride [Mass/Vol] 139 mg/dL <=150 [facility] Urea nitrogen [Mass/Vol] 20.0 mg/dL 7.0-18.0 [facility] Urea nitrogen/Creatini ne [Mass ratio] 14.1 mg/mg [facility] Laboratory - Hematology and Cell countson 01-26-2024 HbA1c (Bld) [Mass fraction] 6.2 % 4.5-6.2 [facility] Comment on above: ADA RECOMMENDED LIMI T 4.0 - 6.0ADA THERAPEUTIC TARGET < 7.0ACTION SUGGESTED> 7.0 Immature granulocytes/100 WBC (Bld) 0.4 % 0.0-0.5 [facility] Leukocytes [#/volume] correc bhanu for nucleated erythrocytes in Blood by Automated counon 01-26-2024 WBC corrected for nucl RBC Auto (Bld) [#/Vol] 6.8 10 3/uL 4.0-11.0 [facility] Lymphocytes Auto (Bld) [#/Vo l]on 01-26-2024 Lymphocytes (Bld) [#/Vol] 2.0 10 3/uL 1.2-3.8 [facility] Lymphocytes/100 WBC Auto (Bl d)on 01-26-2024 Lymphocytes/100 WBC (Bld) 28.9 % 20.5-60.0 [facility] MCH Auto (RBC) [Entitic mass ]on 01-26-2024 MCH (RBC) [Entitic mass] 26.9 pg 25.9-34.0 [facility] MCHC Auto (RBC) [Mass/Vol]on 01-26-2024 MCHC (RBC) [Mass/Vol] 32.1 g/dL 29.9-35.2 [facility] MCV Auto (RBC) [Entitic vol] on 01-26-2024 MCV (RBC) [Entitic vol] 83.7 fL 80.0-94.0 [facility] Microalbumin [Mass/volume] i n Urineon 01-26-2024 Albumin DL <= 20 mg/L (U) [Mass/Vol] 7.8 mg/dL <=30.0 [facility] Monocytes Auto (Bld) [#/Vol] on 01-26-2024 Monocytes (Bld) [#/Vol] 0.5 10 3/uL 0.3-0.8 [facility] Monocytes/100 WBC Auto (Bld) on 01-26-2024 Monocytes/100 WBC (Bld) 7.2 % 1.7-12.0 [facility] Neutrophils Auto (Bld) [#/Vo l]on 01-26-2024 Neutrophils (Bld) [#/Vol] 4.0 10 3/uL 1.4-6.5 [facility] Neutrophils/100 WBC Auto (Bl d)on 01-26-2024 Neutrophils/100 WBC (Bld) 58.0 % 43.0-75.0 [facility] No Panel Informationon 01-25 Eosinophils # (Auto) 0.4 10 3/uL 0.0-0.7 [facility] Immature Granulocyte # (Auto) 0.03 10 3/uL 0.00-0.03 [facility] Platelet mean volume Auto (B ld) [Entitic vol]on 01-26-2024 Platelet mean volume (Bld) [Entitic vol] 10.0 fL 9.5-13.5 [facility] Platelets Auto (Bld) [#/Vol] on 01-26-2024 Platelets (Bld) [#/Vol] 175 10 3/uL 150-450 [facility] RBC Auto (Bld) [#/Vol]on RBC (Bld) [#/Vol] 5.21 10 6/uL 4.70-6.10 [facility] Serum or plasma albumin/glob ulin mass ratioon 01-26-2024 Albumin/Globulin [Mass ratio] 1.1 {ratio} [facility] Serum or plasma anion gap de terminationon 01-26-2024 Anion gap [Moles/Vol] 14.5 mmol/L [facility] Serum or plasma total choles terol/high density lipoprotein (HDL) cholesterol mass pebbles 01-26-2024 Cholesterol.total /Cholesterol in HDL [Mass ratio] 3.8 {ratio} [facility] Comment on above: 3.3 - 4.4 LOW RISK4. 4 - 7.1 AVERAGE RISK7.1 - 11.0 MODERATE RISK>11.0 HIGH RISK Ambulatory Visit Summaryon 0 12-17-2023 Ambulatory Visit Summary DAT LOPEZ :1960 Visit Date:12/17/2023 Ambulatory Visit Instructions Your Diagnosis Elevated PSA BPH with obstruction/lower urinary tract symptoms Kidney stones History of kidney stones Erectile dysfunction History of bladder cancer Tests Performed XR Abdomen 1 View -- Results Pending -- Please visit your patient portal for your results or contact your primary care physician. Your Care Team Attending Physician - SANKET PRECIADO, Pelon Mujica Primary Care Physician - SP CHOWDARY [...] PRECIADO, Pelon Mujica Where: [facility] Patient Educationon 12-17-19 Patient Education Urology Erectile Dysfunction Erectile dysfunction [...] these instructions at home: Medicines ? Take liid-mqt-amimbha and prescription medicines only as told by [...] include cig (more content not included)... Normal [facility] Urology Office/Clinic Noteon 12-17-2023 Urology Office/Clinic Note [...] - neg. Follow-up With When Contact Information SANKET PRECIADO, Pelon Mujica, URL [facility] [address] [place] [phone] Additional Instructions: 1 yr w/ PSA and [...] Benign n (more content not included)... Normal [facility] Comment on above: Result Comment: Elec tronically Signed By: Pelon COLES MD\.br\Date and Time Signed: 12/17/23 12:57 EST\.br\Electronically Co-Signed By: Sahra Daugherty\.br\Date and Time Co-Signed: 12/17/23 12:55 EST Prostate Histology ([facility]) on 12-07-2023 Prostate Histology Diagnosis Info Invalid Interpretation Code [facility] Comment on above: Result Comment: A:Pr ostate,Left Lateral Base:Needle Biopsy Interpretation - - Benign prostatic tissue (see comment). MicroScopic Description - B:Prostate,Left Lateral Mid:Needle Biopsy Interpretation - - Benign prostatic tissue. MicroScopic Description - C:Prostate,Left Lateral Misenheimer:Needle Biopsy Interpretation - - Benign prostatic tissue. MicroScopic Description - D:Prostate,Left Base:Needle Biopsy Interpretation - - Benign prostatic tissue (see comment). MicroScopic Description - E:Prostate,Left Mid:Needle Biopsy Interpretation - - Benign prostatic tissue (see comment). MicroScopic Description - F:Prostate,Left Misenheimer:Needle Biopsy Interpretation - - Benign prostatic tissue. MicroScopic Description - G:Prostate,Right Base:Needle Biopsy Interpretation - - Benign prostatic tissue with patchy chronic inflammation. MicroScopic Description - H:Prostate,Right Mid:Needle Biopsy Interpretation - - Benign prostatic tissue. MicroScopic Description - I:Prostate,Right Misenheimer:Needle Biopsy Interpretation - - Benign prostatic tissue. MicroScopic Description - J:Prostate,Right Lateral Base:Needle Biopsy Interpretation - - Benign prostatic tissue (see comment). MicroScopic Description - K:Prostate,Right Lateral Mid:Needle Biopsy Interpretation - - Benign prostatic tissue (see comment). MicroScopic Description - L:Prostate,Right Lateral [place]:Needle Biopsy Interpretation - - Benign prostatic tissue. [...] J and K: PIN4 reviewed. CPT code: 31055 x 12 53094 x 5 Electronically signed by : on: 12/07/2023 13:49:50 Performed By: #### 1 [id number] ####[facility] [address] [place] [address] Consent for Procedure/Surger yon 11-29-2023 Consent for Procedure/Surgery [id number]#1.00TIFF Normal [facility] Prostate Histology ([facility]) on 11-28-2023 PH Method of Extraction Needle Biopsy Normal [facility] Comment on above: Performed By: #### 1 [id number] ####[facility] [address] [place] [address] PH Number of Jars 2 Invalid Interpretation Code [facility] Comment on above: Performed By: #### 1 [id number] ####[facility] [address] [place] [address] PH Specimen 1 R Base Prostate Normal [facility] Comment on above: Performed By: #### 1 [id number] ####[facility] [address] [place] [address] PH Specimen 10 L Lat Mid Prost Normal [facility] Comment on above: Performed By: #### 1 [id number] ####[facility] [address] [place] [address] PH Specimen 11 L Apx Prostate Normal [facility] Comment on above: Performed By: #### 1 [id number] ####[facility] [address] [facility] [place] [address] PH Specimen 12 L Lat Apx Prost Normal [facility] Comment on above: Performed By: #### 1 [id number] ####[facility] [address] [place] [address] PH Specimen 2 R Lat Bse Prost Normal [facility] Comment on above: Performed By: #### 1 [id number] ####[facility] [address] [place] [address] PH Specimen 3 R Mid Prostate Normal [facility] Comment on above: Performed By: #### 1 [id number] ####[facility] [address] [place] [address] PH Specimen 4 R Lat Mid Prost Normal [facility] Comment on above: Performed By: #### 1 [id number] ####[facility] [address] [place] [address] PH Specimen 5 R Apx Prostate Normal [facility] Comment on above: Performed By: #### 1 [id number] ####[facility] [address] [place] [address] PH Specimen 6 R Lat Apx Prost Normal [facility] Comment on above: Performed By: #### 1 [id number] ####[facility] [address] [place] [address] PH Specimen 7 L Base Prostate Normal [facility] Comment on above: Performed By: #### 1 [id number] ####[facility] [address] [place] [address] PH Specimen 8 L Lat Bse Prost Normal [facility] Comment on above: Performed By: #### 1 [id number] ####[facility] [address] [place] [address] PH Specimen 9 L Mid Prostate Normal [facility] Comment on above: Performed By: #### 1 [id number] ####[facility] [address] [place] [address] PH Type of Service Technical Only Normal [facility] Comment on above: Performed By: #### 1 [id number] ####[facility] [address] [place] [address] Ambulatory Visit Summaryon 0 11-27-2023 Ambulatory Visit [...] Pelon COLES MD Where: [facility] Patient Educationon 11-27-19 24 Patient Education Oncology Transrectal Ultrasound-Guided Prostate Biopsy, [...] near your rectum, especially while sitting. ? [place]-colored urine due to small amounts of blood in your urine. ? A burning feeling while urinating. ? Blood in your stool (feces) or bleeding from your rectum. ? Blood in your semen. Follow these instructions at home: Medicines ? Take ormf-ruz-igefsfg and prescription medicines only as told by [...] provider. Document Revised: 05/01/2022 Document Reviewed: 05/01/2022 [employer] Patient Education ? 2022 [employer]. Kenneth Novak [facility] Urology Office/Clinic Noteon 11-27-2023 Urology Office/Clinic Note [...] Mujica, URL [facility] [address] [place] [id number] Additional Instructions: review path on 12/14/23 Patient Education Transrectal Ultrasound-Guided Prostate Biopsy, Care After ISahra, personally scribed for Dr. Coles on (more content not included)... [facility] Comment on above: Result Comment: Elec tronically Signed By: Pelon COLES MD\.br\Date and Time Signed: 11/27/23 16:43 EST\.br\Electronically Co-Signed By: Sahra Daugherty\.br\Date and Time Co-Signed: 11/27/23 16:39 EST Insurance Correspondenceon 0 11-26-2023 Insurance Correspondence [id number]#1.00TIF F [facility] Ambulatory Visit Summaryon 1 01-15-2023 Ambulatory [...] PRECIADO, Pelon Mujica Where: [facility] [address] [place] [address] \.br\ Medications\.br \ What How Much When [...] for choosing us for your care.\.br\ \.br\ [facility] General Surgery Office/Clini c Noteon 11-14-2023 [...] virus vaccine, inactivated 07/2023 Recorded SARS-CoV-2 (COVID-19) mRNAMUL.ORD![id number] 08/13/2022 Recorded influenza virus vaccine, inactivated 07/26/2022 Recorded SARS-CoV-2 (COVID-19) mRNA BNT-162b2 vax 10/23/2021 Recorded influenza virus vaccine, inactivated 08/10/2021 Recorded SARS-CoV-2 (COVID-19) Ad26 vaccine 04/15/2021 Recorded SARS-CoV-2 (COVID-19) Ad26 vaccine 03/25/2021 Recorded SARS-CoV-2 (COVID-19) mRNA BNT-162b2 vax 02/15/2021 Recorded SARS-CoV-2 (COVID-19) mRNA BNT-162b2 vax 01/25/2021 Recorded influenza virus vaccine, live, trivalent 07/2019 Re (more content not included)... Normal [facility] Comment on above: Result Comment: Elec [...] not retrieved (2022)/history of colon polyps. Normal [facility] Outside Colonoscopyon 2022 Outside Colonoscopy [id number]#1.00TIFF [facility] Pathology Noteon 11-06-2023 Pathology Note [id number]#1.00TIFF [facility] Ambulatory Visit Summaryon 1 12-30-2022 Ambulatory Visit Summary DAT LOPEZ :1960 Visit Date:10/29/2023 Ambulatory Visit Instructions Your Diagnosis History of kidney stones Elevated PSA BPH with obstruction/lower urinary tract symptoms Prostate nodule History of bladder cancer Erectile dysfunction Tests Performed Urnls Dip Stick Auto w/o Microscopy POC 06415 Your Care Team Attending Physician - Pelon [...] Pelon COLES MD Where: [facility] [address] [facility] [place] [address]- \.br\ You Need to Schedule the Following Appointments\.b r\ Follow Up with Pelon COLES MD, URL When: \.br\ Comments:\.br\ Scheduled for TRUS/bx on 11/27/23.\.br\ Where:\.br\ [facility] [address]br\ [place] [address]-\.br\ Medications\.br \ What How Much When Instructions\.b [...] Urnls Dip Stick Auto w/o Microscopy POC 01691 (10/29/2023)\.b r\ Bilirubin Urine Dipstick - Negative\.br\ Blood Urine Dipstick - Negative\.br\ Glucose Urine Dipstick - Negative\.br\ Ketones Urine Dipstick - Negative\.br\ Leukocytes Urine Dipstick - Negative\.br\ Nitrite Urine Dipstick - Negative\.br\ Protein Urine Dipstick - Trace\.br\ Specific [place] Urine Dipstick - 1.020\.br\ Urine Appearance Urine [...] for choosing us for your care.\.br\ \.br\ [facility] Urology Office/Clinic Noteon 10-29-2023 Urology Office/Clinic Note [...] [facility] [address] [place] [address]- Additional Instructions: Scheduled for TRUS/bx on 11/27/23. [...] disease Depression Diabetes (more content not included)... Normal [facility] Comment on above: Result Comment: Elec tronically Signed By: Pelon COLES MD\.br\Date and Time Signed: 10/29/23 15:44 EST\.br\Electronically Co-Signed By: Va Rivers\.br\Date and Time Co-Signed: 10/29/23 15:42 EST Consent for Procedure/Surger yon 10-09-2023 Consent for Procedure/Surgery [id number]#1.00TIFF [facility] Insurance Correspondenceon 1 12-08-2022 Insurance Correspondence [id number]#1.00TIFF [facility] Ambulatory Visit Summaryon 1 12-05-2022 Ambulatory Visit Summary DAT LOPEZ :1960 Visit Date:10/05/2023 Ambulatory Visit Instructions Your [...] PRECIADO, Pelon Mujica Where: [facility] [address] [place] [address]- \.br\ Medications\.br \ What How Much When [...] for choosing us for your care.\.br\ \.br\ [facility] RAD - MRI Reporton 3 RAD - MRI Report [id number]#1.00TIFF Normal [facility] Reminderson 09-14-2023 Reminders - From: Nelida Ortiz To: EU - Recalls Sanket; Cc: Nelida Ortiz; Sent: 08/09/2023 16:23:35 EDT Show up: 02/18/2024 16:23:00 EDT Subject: MRI of prostate Due Date/Time: 03/10/2024 16:23:00 EDT Reminder/Recall Pt is due for MRI of prostate w/wo in March 2024. pt ended up having it done Aug 2023. see message re: results for PRW plan. Normal [facility] MR prostate wo/w conon 09-11 MR prostate wo/w con [facility] Main [place] [address] [place] [id number] MRI Report Signed Patient: Dat Lopez JR MR#: [id number] : 1960 Acct:[id number] Age/Sex: 63 / M ADM Date: 09/11/23 Loc: MR Room: Type: [facility] Attending Dr: Pelon Coles MD Copies to: [...] Boston Jr., D.O.09/11/2023 4:28 PM Dictation Location: [facility]-14 Transcribed By: [facility] 09/11/231627 Dictated By: Mitul Boston Jr, DO 09/11/231620 Signed By: 09/11/238 Normal [facility] Insurance Correspondenceon 0 06-26-2023 Insurance Correspondence [id number]#1.00CD:1 27 Normal [facility] UroVysion Fish and Urine Cyt o ([facility])on 06-25-2023 UVFISH & UC Diagnosis Info Invalid Interpretation Code [facility] Comment on above: Result Comment: A:Ur ine,Urine:Voided [...] cytology, and continued follow-up are recommended.* CPT 26998, 58369. Microscopic Notes - Microscopic Notes - Abnormal cells 9p21 deletions: Abnormal cells aneploid events: Total cells analyzed: 3 Hematuria: Gross Description Site ID:A color Yellow fixative Alcohol Received 80 mls of clear yellow fluid with the patient's name and, Urine on the vial. Electronically signed by : on: 06/25/2023 10:51:09 Performed By: #### 1 [id number] #### [facility] [address] [place] [address] Consent for Procedure/Surger yon 06-12-2023 Consent for Procedure/Surgery [id number]#1.00CD:12 7 Normal [facility] Consent for Treatmenton 07-2 Consent for Treatment [id number]#1.00CD:12 7 Normal [facility] IntraOperative Documentson 0 06-12-2023 IntraOperative Documents [id number]#1.00CD:12 7 Normal [facility] Main OR Intraoperative Recor don 06-12-2023 Main OR Intraoperative Record IntraOp Document Type FTURO Summary Primary Physician: Pelon COLES MD Finalized Date/Time: 06/12/23 12:24:53 Pt. Name: DAT LOPEZ James Guzman/Sex: 1960 Male Med Rec #: [id number] Physician: Pelon COLES MD Financial #: [id number] Pt. Type: O Room/Bed: / Admit/Disch: 06/12/23 11:49:37 - Institution: Case Times FTURO Entry 1 Patient Times In Room 06/12/23 12:10:00 Out Room 06/12/23 12:30:00 Procedure Times Start 06/12/23 12:17:00 Stop 06/12/23 12:25:00 Anesthesia Times Last Modified By: Sandra WHALEY, AUDRA, Jazmyne 06/12/23 12:23:16 Case Attendance FTURO Entry 1 Entry 2 Entry 3 Case Attendee SANKET PRECIADO, Pelon Flores RN, CNOR, Tomas KEYES, Malena Samano Role Performed Surgeon - Primary Saturator - Primary Scrub - Primary Time In 06/12/23 12:10:00 06/12/23 12:10:00 06/12/23 12:10:00 Time Out 06/12/23 12:30:00 06/12/23 12:30:00 06/12/23 12:30:00 Procedure CYSTOSCOPY LOCAL(.) CYSTOSCOPY LOCAL(.) CYSTOSCOPY LOCAL(.) Comments Last Modified By: Sandra RN, CNOR, Sandra RN, CNOR, Sadnra RN, ALIREZAOR, Jazmyne 06/12/23 Jazmyne 06/12/23 Jazmyne 06/12/23 12:23:17 12:23:17 12:23:17 General Comments: 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 Surgeon Description CYSTO Primary Procedure Yes Primary Surgeon Pelon COLES MD 06/12/23 12:17:00 Stop 06/12/23 12:25:00 Anesthesia Type Local Surgical Service Urology Wound Class 2 - Clean-Contaminated Last Modified By: AUDRA Flores RN, Ruthann 06/12/23 12:23:18 General Case Data FTURO Pre-Care [...] elevated PSA, bladder stone Last Modified By: AUDRA Flores RN, Ruthann 06/12/23 12:21:44 Post-Care Text: The patient is [...] Out Pelon COLES MD, Verified (If Participants ALIREZA Flores RNOR, Applicable) Tomas Samano CST, Kimberly A Time [...] AUDRA Flores RN, Ruthann 06/12/23 12:24 Normal [facility] Main OR Preoperative Recordo n 06-12-2023 Main OR Preoperative Record Holding Area Document Type FTURO Summary Primary Physician: Pelon COLES MD Finalized Date/Time: 06/12/23 12:21:21 Pt. Name: DAT LOPEZ D.O.B./Sex: 1960 Male Med Rec #: [id number] Physician: Pelon COLES MD Financial #: [id number] Pt. Type: O Room/Bed: / Admit/Disch: 06/12/23 [...] of Pain: No ambulation Skin Integrity Intact, [place], Warm, & Dry Vitals - EU Blood Pressure 150/90 Pulse 77 bpm Respirations 20 br/min SPO2 95 % Additional GIN WHALEY Reviewed Yes Specimens Collected Last Modified By: AUDRA Flores RN, Ruthann 06/12/23 12:13:44 General Comments: Temp 37.0 Finalized By: AUDRA Flores RN, Ruthann Document Signatures Signed By: AUDRA Flores RN, Ruthann 06/12/23 12:13 Kluding FILLER SHREDDER HELPER, Fauzia 06/12/23 12:08 AUDRA Flores RN, Ruthann 06/12/23 12:21 Normal [facility] Operative Reporton Operative Report Patient: SAMANTHA LOPEZ [...] with antibiotic coverage, Follow up arranged. Normal [facility] Comment on above: Result Comment: Elec tronically Signed By: Pelon COLES MD\.br\Date and Time Signed: 06/12/23 12:31 EDT Outpatient Surgery Discharge Instructionon 06-12-2023 Outpatient Surgery Discharge Instruction [id number]#1.00CD:12 7 Normal [facility] UroVysion Fish and Urine Cyt o ([facility])on 06-12-2023 [facility] Method of Extraction Voided Normal [facility] Comment on above: Performed By: #### 1 [id number] #### [facility] [address] [place] [address] [facility] Number of Jars 1 Invalid Interpretation Code [facility] Comment on above: Performed By: #### 1 [id number] #### [facility] [address] [place] [address] [facility] Specimen Urine Normal [facility] Comment on above: Performed By: #### 1 [id number] #### [facility] [address] [place] [address] [facility] Type of Service Technical Only Normal [facility] Comment on above: Performed By: #### 1 [id number] #### [facility] [address] [id number] Lab Reportson 06-11-2023 Lab Reports [id number]#1.00CD:12 7 Normal [facility] Reminderson 05-29-2023 Reminders - From: Nelida Ortiz To: EU - Recalls Coles; Cc: Nelida Ortiz; Sent: 05/29/2023 13:20:11 EDT Show up: 04/19/2024 13:20:00 EDT Subject: Cysto/fish/cytol/psa Due Date/Time: 05/05/2024 13:20:00 EDT Reminder/Recall Patient is due in May 2024 for 1 year cysto/fish/cytol/PSA (bt ck) Normal [facility] Pre-Certification Formon Pre-Certification Form [id number]#1.00CD:1 27 Normal [facility] XR KUB 1 VIEWon 02-23-2023 XR KUB [...] by: GEMA OTTO Date: 2023-02-23 06:[address] [facility] XR LSPINE 2_3 VIEWSon 2022 XR [...] GEMA OTTO Date: 2023-02-23 07:03 Normal [facility] CBC AUTO DIFFon 02-22-2023 BASO # 0.0 103/ul Normal 0.0-0.[address] [facility] Comment on above: Performed By: #### C BC #### [facility] [address] [address] [address] Nikky Man Basophils/100 WBC (Bld) 0.3 % Normal 0.2-2.[address] [facility] Comment on above: Performed By: #### C BC #### [facility] [address] [place] [address] Dr. Nikky Man EO # 0.2 103/ul Normal 0.0-0.7 [facility] Comment on above: Performed By: #### C BC #### [facility] [address] [place] [address] Dr. Nikky Man Eosinophils/100 WBC (Bld) 3.0 % Normal 0.9-7.0 [facility] Comment on above: Performed By: #### C BC #### [facility] [address] [place] [address] Dr. Nikky Man Erythrocyte distribution width (RBC) [Ratio] 14.1 % Normal 11.0-15.0 [facility] Comment on above: Performed By: #### C BC #### [facility] [address] [place] [address] Dr. Nikky Man Hematocrit (Bld) [Volume fraction] 40.4 % Critically low 42.0-54.0 [facility] Comment on above: Performed By: #### C BC #### [facility] [address] [place] [address] Dr. Nikky Man Hemoglobin (Bld) [Mass/Vol] 13.3 g/dL Critically low 14.0-18.0 [facility] Comment on above: Performed By: #### C BC #### [facility] [address] [place] [address] Dr. Nikky Man IG # 0.02 10e3/ul Normal 0.00-0.03 [facility] Comment on above: Performed By: #### C BC #### [facility] [address] [place] [address] Dr. Nikky Man IG % 0.3 % Normal 0.0-0.5 [facility] Comment on above: Performed By: #### C BC #### [facility] [address] [place] [address] Dr. Nikky Man LYMPH # 1.6 103/ul Normal 1.2-3.8 [facility] Comment on above: Performed By: #### C BC #### [facility] [address] [place] [address] Dr. Nikky Man Lymphocytes/100 WBC (Bld) 23.3 % Normal 20.5-60.0 [facility] Comment on above: Performed By: #### C BC #### [facility] [address] [place] [address] Dr. Nikky Man MANUAL DIFF REQ NO Normal [facility] Comment on above: Performed By: #### C BC #### [facility] [address] [place] [address] Dr. Nikky Man MCH (RBC) [Entitic mass] 26.3 pg Normal 25.9-34.0 [facility] Comment on above: Performed By: #### C BC #### [facility] [address] [place] [address] Dr. Nikky Man MCHC (RBC) [Mass/Vol] 32.9 g/dL Normal 29.9-35.2 [facility] Comment on above: Performed By: #### C BC #### [facility] [address] [place] [address] Dr. Nikky Man MCV (RBC) [Entitic vol] 80.0 fL Normal 80.0-94.0 [facility] Comment on above: Performed By: #### C BC #### [facility] [address] [place] [address] Dr. Nikky Man MONO # 0.4 103/ul Normal 0.3-0.8 [facility] Comment on above: Performed By: #### C BC #### [facility] [address] [place] [address] Dr. Nikky Man Monocytes/100 WBC (Bld) 5.8 % Normal 1.7-12.0 [facility] Comment on above: Performed By: #### C BC #### [facility] [address] [place] [address] Dr. Nikky Man NEUT # 4.7 103/ul Normal 1.4-6.5 [facility] Comment on above: Performed By: #### C BC #### [facility] [address] [place] [address] Dr. Nikky Man Neutrophils/100 WBC (Bld) 67.3 % Normal 43.0-75.[address] [facility] Comment on above: Performed By: #### C BC #### [facility] [address] [place] [address] Dr. Nikky Man Platelet mean volume (Bld) [Entitic vol] 9.0 fL Critically low 9.5-13.[address] [facility] Comment on above: Performed By: #### C BC #### [facility] [address] [place] [address] Dr. Nikky Man PLT 154 103/ul Normal 150-450 [facility] Comment on above: Performed By: #### C BC #### [facility] [address] [place] [address] Dr. Nikky Man RBC 5.05 106/ul Normal 4.70-6.10 [facility] Comment on above: Performed By: #### C BC #### [facility] [address] [place] [address] Dr. Nikky Man WBC 6.9 103/ul Normal 4.0-11.0 [facility] Comment on above: Performed By: #### C BC #### [facility] [address] [place] [address] Dr. Nikky Man GLYCOHEMOGLOBIN A1Con 2022 ADA RECOMMENDATION SEE BELOW Normal [facility] Comment on above: Result Comment: ADA RECOMMENDED LIMIT 4.0 - 6.0 ADA THERAPEUTIC TARGET < 7.0 ACTION SUGGESTED > 7.0 Performed By: #### A 1C #### [facility] [address] [place] [address] Dr. Nikky Man Glucose [Mass/Vol] 137 mg/dL Normal [facility] Comment on above: Performed By: #### A 1C #### [facility] [address] [place] [address] Dr. Nikky Man HbA1c (Bld) [Mass fraction] 6.4 % Critically high 4.5-6.[address] [facility] Comment on above: Performed By: #### A 1C #### [facility] [address] [place] [address] Dr. Nikky Man LIPID PROFILEon 02-22-2023 CHOL-HDL RATIO NORM SEE BELOW Normal [facility] Comment on above: Result Comment: 3.3 - 4.4 LOW RISK 4.4 - 7.1 AVERAGE RISK 7.1 - 11.0 MODERATE RISK >11.0 HIGH RISK Performed By: #### C MP, LIPID #### [facility] [address] [address] [address] Nikky Man Cholesterol [Mass/Vol] 135 mg/dL Normal <=[address] [facility] Comment on above: Performed By: #### C MP, LIPID #### [facility] [address] [address] [address] Nikky Man Cholesterol in HDL [Mass/Vol] 30 mg/dL Critically low 40-[address] [facility] Comment on above: Performed By: #### C MP, LIPID #### [facility] [address] [address] [address] Nikky Man Cholesterol in LDL [Mass/Vol] 50.6 mg/dL Normal [facility] Comment on above: Performed By: #### C MP, LIPID #### [facility] [address] [address] [address] Nikky Man Cholesterol.total /Cholesterol in HDL [Mass ratio] 4.5 {ratio} Normal [facility] Comment on above: Performed By: #### C MP, LIPID #### [facility] [address] [address] [address] Nikky Man HDL NORMAL > or = 60 mg/dl - LO W CARDIOVASCULAR RISK <40 mg/dl - HIGH CARDIOVASCULAR RISK Normal [facility] Comment on above: Performed By: #### C MP, LIPID #### [facility] [address] [address] [address] Nikky Man LDL CALC NORMAL SEE BELOW Normal [facility] Comment on above: Result Comment: <100 mg/dl OPTIMAL 100 - 129 mg/dl NEAR OR ABOVE OPTIMAL 130 - 159 mg/dl BORDERLINE HIGH 160 - 189 mg/dl HIGH >190 mg/dl VERY HIGH Performed By: #### C MP, LIPID #### [facility] [address] [address] [address] Nikky Man Triglyceride [Mass/Vol] 272 mg/dL Critically high <=150 [facility] Comment on above: Performed By: #### C MP, LIPID #### [facility] [address] [place] [address] Dr. Nikky Man VLDL CALC 54.4 mg/dL Normal [facility] Comment on above: Performed By: #### C MP, LIPID #### [facility] [address] [place] [address] Dr. Nikky Man MICROALBUMIN, RAND URon 04-0 mALB 13.2 mg/L Normal <=30.0 [facility] Comment on above: Performed By: #### M ALBR #### [facility] [address] [place], [place] [address] Dr. Nikky Man PROF 14(COMP METB)on 023 Albumin [Mass/Vol] 3.9 g/dL Normal 3.4-5.[address] [facility] Comment on above: Performed By: #### C MP, LIPID #### [facility] [address] [place] [address] Dr. Nikky Man Albumin/Globulin [Mass ratio] 1.2 {ratio} Normal [facility] Comment on above: Performed By: #### C MP, LIPID #### [facility] [address] [place] [address] Dr. Nikky Man ALP [Catalytic activity/Vol] 87 U/L Normal 46-116 [facility] Comment on above: Performed By: #### C MP, LIPID #### [facility] [address] [place] [address] Dr. Nikky Man ALT [Catalytic activity/Vol] 29 U/L Normal 16-63 [facility] Comment on above: Performed By: #### C MP, LIPID #### [facility] [address] [place] [address] Dr. Nikky Man Anion gap [Moles/Vol] 13.2 mmol/L Normal [facility] Comment on above: Performed By: #### C MP, LIPID #### [facility] [address] [address] [address] Nikky Man AST [Catalytic activity/Vol] 19 U/L Normal 15-37 [facility] Comment on above: Performed By: #### C MP, LIPID #### [facility] [address] [address] [address] Nikky Man Bilirubin [Mass/Vol] 0.4 mg/dL Normal 0.2-1.[address] [facility] Comment on above: Performed By: #### C MP, LIPID #### [facility] [address] [place] [address] Dr. Nikky Man Calcium [Mass/Vol] 9.3 mg/dL Normal 8.5-10.1 [facility] Comment on above: Performed By: #### C MP, LIPID #### [facility] [address] [place] [address] Dr. Nikky Man Chloride [Moles/Vol] 103 mmol/L Normal 98-107 [facility] Comment on above: Performed By: #### C MP, LIPID #### [facility] [address] [place] [address] Dr. Nikky Man CO2 [Moles/Vol] 28.7 mmol/L Normal 21.0-32.0 [facility] Comment on above: Performed By: #### C MP, LIPID #### [facility] [address] [place] [address] Dr. Nikky Man Creatinine [Mass/Vol] 1.54 mg/dL Critically high 0.70-1.30 [facility] Comment on above: Performed By: #### C MP, LIPID #### [facility] [address] [place] [address] Dr. Nikky Man EGFR-AF TANZANIAN 56 mL/min/1.73m2 Critically low >=60 [facility] Comment on above: Performed By: #### C MP, LIPID #### [facility] [address] [place] [address] Dr. Nikky Man EGFR-NON AF TANZANIAN 46 mL/min/1.73m2 Critically low >=60 [facility] Comment on above: Performed By: #### C MP, LIPID #### [facility] [address] [address] [address] Nikky Man Globulin (S) [Mass/Vol] 3.2 g/dL Normal [facility] Comment on above: Performed By: #### C MP, LIPID #### [facility] [address] [address] [address] Nikky Man Glucose [Mass/Vol] 179 mg/dL Critically high 74-[address] [facility] Comment on above: Performed By: #### C MP, LIPID #### [facility] [address] [address] [address] Nikky Man Potassium [Moles/Vol] 4.9 mmol/L Normal 3.5-5.[address] [facility] Comment on above: Performed By: #### C MP, LIPID #### [facility] [address] [address] [address] Nikky Man Protein [Mass/Vol] 7.1 g/dL Normal 6.4-8.2 [facility] Comment on above: Performed By: #### C MP, LIPID #### [facility] [address] [address] [address] Nikky Man Sodium [Moles/Vol] 140 mmol/L Normal 136-[address] [facility] Comment on above: Performed By: #### C MP, LIPID #### [facility] [address] [address] [address] Nikky Man Urea nitrogen [Mass/Vol] 20.0 mg/dL Critically high 7.0-18.[address] [facility] Comment on above: Performed By: #### C MP, LIPID #### [facility] [address] [address] [address] Nikky Man Urea nitrogen/Creatini ne [Mass ratio] 13.0 mg/mg Normal [facility] Comment on above: Performed By: #### C MP, LIPID #### [facility] [address] [address] [address] Nikky Man XR femur RT 2V*on 02-14-2023 XR femur RT 2V* [facility] [place] [address] XRay Report Signed Patient: Dat Lopez JR MR#: [id number] : 1960 Acct:[id number] Age/Sex: 62 / M ADM Date: 02/14/23 Loc: [facility] [place]: Type: [facility] Attending Dr: Alfonzo Ashford II, MD Copies [...] Boston Jr., D.ODheeraj02/14/2023 4:22 PM Dictation Location: [facility]12 Transcribed By: [facility] 02/14/23 1622 Dictated By: Mitul Boston Jr, DO 02/14/23 1621 Signed By: 02/14/23 1622 [facility] XR femur RT 2V* [facility] [employer] Other XR femur RT 2V* [facility] [employer] Other XR femur RT 2V* [address] [place] [address] [email or web address] Other XR femur RT 2V* [place] [address] [facility] [employer] Other XR femur RT 2V* XRay Report [facility] [employer] Other XR femur RT 2V* Signed [facility] [employer] Other XR femur RT 2V* Patient: Tk Lopez JR MR#: [id number] [facility] [employer] Other XR femur RT 2V* [address] [facility] [employer] Other XR femur RT 2V* : 1960 Acct:[id number] [employer] Other XR femur RT 2V* Age/Sex: 62 / M ADM Date: 02/14/23 [employer] Other XR femur RT 2V* Loc: [facility] Room: Type : REG CLI [employer] Other XR femur RT 2V* Attending Dr: Alfonzo Ashford II, MD [employer] Other XR femur RT 2V* Copies to: Alfonzo Ashford MD [employer] Other XR femur RT 2V* Ordering Provider: Sil Ashford MD [employer] Other XR femur RT 2V* Date of Service: 02/14/23 [employer] Other XR femur RT 2V* XR/XR femur RT 2V*: Post-traumatic osteoarthritis of right knee [employer] Other XR femur RT 2V* Right femur 2 views. [employer] Other XR femur RT 2V* Reason for exam: Follow-up ORIF right femur fracture. [employer] Other XR femur RT 2V* COMPARISON: Right kn ee series 12/14/2022 [employer] Other XR femur RT 2V* FINDINGS: Hardware fixation is seen involving the mid to distal femur without evidence of hardware [employer] Other XR femur RT 2V* complication. No acu te fracture line is noted. Residual deformity seen from a prior fracture [employer] Other XR femur RT 2V* involving the mid fe mur. Visualized knee joint demonstrates degenerative change. Right hip joint [employer] Other XR femur RT 2V* demonstrates minimal degenerative change. [employer] Other XR femur RT 2V* X R/XR femur RT 2V* [employer] Other XR femur RT 2V* IMPRESSION: No evide nce of hardware complication. No acute fracture line is seen. [employer] Other XR femur RT 2V* Impression dictated by: Mitul Boston Jr., D.ODheeraj02/14/2023 4:22 PM [employer] Other XR femur RT 2V* Dictation Location: [facility]--12 [employer] Other XR femur RT 2V* Transcribed By: [facility] 02/14/23 [facility] [employer] Other XR femur RT 2V* Dictated By: Mitul Boston Jr, DO 02/14/23 [facility] [employer] Other XR femur RT 2V* Signed By: [facility] [employer] Other XR femur RT 2V* 02/14/23 [facility] [employer] Other XR knee RT 4V*on 12-14-2022 XR knee RT 4V* [facility] [place] [address] [place] [address] XRay Report Signed Patient: Dat Lopez JR MR#: [id number] : 1960 Acct:[id number] Age/Sex: 62 / M ADM Date: 12/14/22 Loc: [facility] [place]: Type: [facility] Attending Dr: Alfonzo Ashford II, MD Copies to: Alfonzo Ashford MD Ordering Provider: Alfonzo Ashford MD Date of Service: 12/14/22 XR/XR hip LT min 2V(w/wo pelvis)*: Left hip pain ([id number]) XR/XR knee RT 4V*: Acute pain of [...] Boston Jr., D.O.12/14/2022 3:37 PM Dictation Location: [facility] Transcribed By: [facility] 12/14/22 153 Dictated By: Mitul Boston Jr DO 12/14/22 153 Signed By: 12/14/22 153 [facility] XR knee RT 4V* [facility] [employer] Other XR knee RT 4V* [facility] [employer] Other XR knee RT 4V* [address] [place] [address] [employer] Other XR knee RT 4V* [place] [address] No rt [email or web address] Other XR knee RT 4V* XRay Report [employer] Other XR knee RT 4V* Signed [employer] Other XR knee RT 4V* Patient: Tk Lopez MR#: [id number] [employer] Other XR knee RT 4V* [address] [employer] Other XR knee RT 4V* : 1960 Acct:[id number] [employer] Other XR knee RT 4V* Age/Sex: 62 / M ADM Date: 12/14/22 [employer] Other XR knee RT 4V* Loc: [facility] [place] Room: Type : [facility] [employer] Other XR knee RT 4V* Attending Dr: Alfonzo Ashford II, MD [place] [email or web address] Other XR knee RT 4V* Copies to: Alfonzo Ashford MD [place] [email or web address] Other XR knee RT 4V* Ordering Provider: Sil Ashford MD [place] [email or web address] Other XR knee RT 4V* Date of Service: 12/14/22 [place] [email or web address] Other XR knee RT 4V* XR/XR hip LT min 2V(w/wo pelvis)*: Left hip pain [employer] Other XR knee RT 4V* ([id number]) XR/XR knee RT 4V*: Acute pain of right knee [employer] Other XR knee RT 4V* LEFT HIP - 2 views: Right knee 4 views [employer] Other XR knee RT 4V* CLINICAL HISTORY: Le ft hip pain for months. Groin pain. [employer] Other XR knee RT 4V* COMPARISON: None [place] [email or web address] Other XR knee RT 4V* FINDINGS: Left hip: No acute bony process or significant degenerative change of the hips. [employer] Other XR knee RT 4V* Right knee: Partiall y visualized hardware is seen involving the distal femur without evidence of [employer] Other XR knee RT 4V* hardware complicatio n. No acute bony process is seen. Small knee joint effusion. Mild [employer] Other XR knee RT 4V* Degenerative changes with weightbearing and patellofemoral joint space narrowing. [employer] Other XR knee RT 4V* X R/XR hip LT min 2V(w/wo pelvis)* [employer] Other XR knee RT 4V* IMPRESSION: [employer] Other XR knee RT 4V* MILD DEGENERATIVE CH ANGES OF THE RIGHT KNEE WITHOUT ACUTE BONY PROCESS.. [employer] Other XR knee RT 4V* Impression dictated by: Mitul Boston Jr., D.ODheeraj12/14/2022 3:37 PM [employer] Other XR knee RT 4V* Dictation Location: [facility]--14 [employer] Other XR knee RT 4V* Transcribed By: [facility] 12/14/22 1537 [employer] Other XR knee RT 4V* Dictated By: Mitul Boston Jr, DO 12/14/22 1534 [employer] Other XR knee RT 4V* Signed By: [employer] Other XR knee RT 4V* 12/14/22 1537 [employer] Other PSA, FREE AND TOTAL RATIOon 12-06-2022 % Free PSA 28.4 % Normal [facility] Comment on above: Result Comment: The [...] men. Performed By: #### P SAFREE #### [facility] [address] [place] [address] Dr. Nikky Man Prostate specific Ag [Mass/Vol] 10.5 ng/mL Critically high 0.0-4.0 [facility] Comment on above: Result Comment: Inderjit LO methodology. . According to the [place] [employer], Serum PSA should decrease and [...] disease. Performed By: #### P SAFREE #### [facility] [address], [place] [address] Dr. Nikky Man PSA, Free 2.98 ng/mL Normal N/A [facility] Comment on above: Result Comment: Inderjit LO methodology. Performed By: #### P SAFREE #### [facility] [address], [place] [address] ABD/PELVIS WO CONon [...] OTTO Date: 2022-09-27 15:14 [facility] [facility] Office Visit (URFMOB ) ----- DAT LOPEZ ([id number]) 1960 M Date Time Provider Department 09/26/22 2:30 PM NOELLE VEGA URFMANGELITO During your visit today, we recorded the [...] patient: Yes Procedure confirmed with physician and logistics support: Yes Sign In: History and Physical [...] care C (more content not included)... Normal [facility] UA DIP, URINE (POC)on 2021 BILIRUBIN UA (POCT) Negative Negative [facility] CLARITY UA (POCT) Cloudy [facility] COLOR UA (POCT) Yellow [facility] GLUCOSE UA (POCT) Negative Negative mg/dL [facility] HEMOGLOBIN/BLOOD UA (POCT) Large Abnormal Negative [facility] KETONE UA (POCT) Negative Negative mg/dL [facility] LEUKOCYTES UA (POCT) Small Abnormal Negative [facility] NITRITE UA (POCT) Negative Negative [facility] PH UA (POCT) 5.5 4.5 - 8.0 [facility] Protein Ql (U) 30 mg/dL Abnormal Negative mg/dL [facility] SPECIFIC GRAVITY UA (POCT) 1.020 1.005 - 1.030 [facility] UROBILINOGEN UA (POCT) 0.2 E.U./dL Normal E.U./dL [facility] Basic metabolic 2000 panelon 09-12-2022 Anion gap [Moles/Vol] 9 mmol/L Normal 9-18 [facility] Comment on above: Order Comment: Speci men Type: BLOOD SPECIMENOrdering Facility: [facility] Address: [address] [place] [address] [place] [address] Performed By: #### 2 4321-2 ####[facility] LABORATORYCLIA [id number] [place] [address] [place] Calcium [Mass/Vol] 8.6 mg/dL Normal 8.5-10.2 [facility] Comment on above: Order Comment: Speci men Type: BLOOD SPECIMENOrdering Facility: [facility] Address: [address] [place] [address] Performed By: #### 2 4321-2 ####[facility]ORATORYCLIA [id number] [place] [address] [place] Chloride [Moles/Vol] 106 mmol/L High 97-105 [facility] Comment on above: Order Comment: Speci men Type: BLOOD SPECIMENOrdering Facility: [facility] Address: [address] [place] [address] Performed By: #### 2 4321-2 ####[facility] LABORATORYIA [id number] [place] [address] [place] CO2 [Moles/Vol] 24 mmol/L Normal 22-30 [facility] ital Comment on above: Order Comment: Speci men Type: BLOOD SPECIMENOrdering Facility: [facility] Address: [address] [place] [address] Performed By: #### 2 4321-2 ####[facility] LABORATORYIA [id number] [place] [address] [place] Creatinine [Mass/Vol] 1.75 mg/dL High 0.73-1.22 [facility] Comment on above: Order Comment: Speci men Type: BLOOD SPECIMENOrdering Facility: [facility] Address: [address] [place] [address] Performed By: #### 2 4321-2 ####[facility] LABORATORYIA [id number] [place] [address] [place] ESTIMATED GLOMERULAR FILTRATION RATE 44 mL/min/1.73m??? Low >=60 [facility] Comment on above: Order Comment: Speci men Type: BLOOD SPECIMENOrdering Facility: [facility] Address: [address] [id number] Result Comment: Carole mated Glomerular Filtration Rate [...] actual GFR. Performed By: #### 2 4321-2 ####[facility] LABORATORYCLIA [id number] [facility] [place] [address] [place] Glucose [Mass/Vol] 169 mg/dL High 74-99 [facility] Comment on above: Order Comment: Demar arrington Type: BLOOD SPECIMENOrdering Facility: [facility] Address: [address] [place], [place] [id number] Result Comment: The [place] Diabetes Association (ADA) provides guidance for cutoff [...] Standards of Medical Care in Diabetes 2016, [place] [employer] Association. Diabetes Care. 2016.39(Suppl 1). Performed By: #### 2 4321-2 ####[facility] LABORATORYCLIA [id number] [facility] [place] [address] [place] Potassium [Moles/Vol] 4.7 mmol/L Normal 3.7-5.1 [facility] Comment on above: Order Comment: Demar arrington Type: BLOOD SPECIMENOrdering Facility: [facility] Address: [address] [phone] Performed By: #### 2 4321-2 ####[facility] LABORATORYCLIA [id number] [place] [address] [place] Sodium [Moles/Vol] 139 mmol/L Normal 136-144 [facility] Comment on above: Order Comment: Speci men Type: BLOOD SPECIMENOrdering Facility: [facility] Address: [address] [place] [address] Performed By: #### 2 4321-2 ####[facility] LABORATORYCLIA [id number] [place] [address] [place] Urea nitrogen [Mass/Vol] 26 mg/dL High 9-24 [facility] Comment on above: Order Comment: Speci men Type: BLOOD SPECIMENOrdering Facility: [facility] Address: [address] [place] [address] Performed By: #### 2 4321-2 ####[facility] LABORATORYIA [id number] [address] [place] CBC panel Auto (Bld)on 09-12 Erythrocyte distribution width (RBC) [Ratio] 13.4 % Normal 11.5-15.0 [facility] Comment on above: Order Comment: Speci men Type: BLOOD SPECIMEN [facility] Address: [address] [place] [address] Performed By: #### 5 8410-2 #### [facility] [place] [id number] [place] [address] [place] Hematocrit (Bld) [Volume fraction] 35.7 % Low 39.0-51.0 [facility] Comment on above: Order Comment: Speci men Type: BLOOD SPECIMEN [facility] Address: [address] [place] [address] Performed By: #### 5 8410-2 #### [facility] [place] [id number] [place] [address] [place] Hemoglobin (Bld) [Mass/Vol] 11.5 g/dL Low 13.0-17.0 [facility] Comment on above: Order Comment: Speci men Type: BLOOD SPECIMEN [facility] Address: [address] [place], [place] [address] Performed By: #### 5 8410-2 #### [facility] [place] [id number] MCH (RBC) [Entitic mass] 26.2 pg Normal 26.0-34.0 [facility] Comment on above: Order Comment: Speci men Type: BLOOD SPECIMEN [facility] Address: [address] [place] [address] Performed By: #### 5 8410-2 #### [facility] [place] [id number] [address] [place] [address] MCHC (RBC) [Mass/Vol] 32.2 g/dL Normal 30.5-36.0 [facility] Comment on above: Order Comment: Speci men Type: BLOOD SPECIMEN [facility] Address: [address] [place] [address] Performed By: #### 5 8410-2 #### [facility] [place] [id number] [address] [place] [address] MCV (RBC) [Entitic vol] 81.3 fL Normal 80.0-100.0 [facility] Comment on above: Order Comment: Speci men Type: BLOOD SPECIMEN [facility] Address: [address] [place], [place] [address] Performed By: #### 5 8410-2 #### [facility] [place] [id number] Nucleated RBC (Bld) [#/Vol] 10*3/uL Normal <0.01 [facility] Comment on above: Order Comment: Speci men Type: BLOOD SPECIMEN [facility] Address: [address] [place] [address] Performed By: #### 5 8410-2 #### [facility] [place] [id number] [address] [place] [address] [place] Platelet mean volume (Bld) [Entitic vol] 9.3 fL Normal 9.0-12.7 [facility] Comment on above: Order Comment: Speci men Type: BLOOD SPECIMEN [facility] Address: [address] [place] [address] Performed By: #### 5 8410-2 #### [facility] CLIA [id number] [address] [place] [address] [place] Platelets (Bld) [#/Vol] 134 10*3/uL Low 150-400 [facility] Comment on above: Order Comment: Speci men Type: BLOOD SPECIMEN [facility] Address: [address] [place], [place] [address] Performed By: #### 5 8410-2 #### [facility] CLIA [id number] [address] [place] [address] [place] RBC (Bld) [#/Vol] 4.39 10*6/uL Normal 4.20-6.00 [facility] Comment on above: Order Comment: Speci men Type: BLOOD SPECIMEN [facility] Address: [address] [place], [place] [address] Performed By: #### 5 8410-2 #### [facility] [place] [id number] [address] [id number] [place] WBC (Bld) [#/Vol] 9.95 10*3/uL Normal 3.70-11.00 [facility] Comment on above: Order Comment: Speci men Type: BLOOD SPECIMEN [facility] Address: [address] [place], [place] [address] Performed By: #### 5 8410-2 #### [facility] [place] [id number] [address] [id number] [facility] CNDSon 09-12-2022 CNDS HNO ID: [id number] Author: Noelle Vega MD Service: Urology Author Type: Physician Type: Discharge Summary Filed: 09/13/2022 1:41 PM Note Text: The [address] [address] or ([phone]) [facility] DISCHARGE SUMMARY Patient Name: Dat Lopez Patient [...] Take 100 mg by mouth once daily. ELIOTAGLSAVANNA MICHELLE U-100 INSULIN 100 unit/mL (3 mL) INJECT 50 UNITS SUBCUTANEOUSLY ONCE A DAY Tadalafil 10 mg Take 10 mg by mouth once daily. coenzyme Q10 (COENZYME Q-10) 100 mg Take 100 mg by mouth once daily. multivitamin (MULTI-DAY ORAL) Take by mouth. melatonin 20 mg Take 20 mg by mouth. No future appointments. Valdo Mcghee MD PGY-5, Urology Pager: [phone] [facility] STAFF PHYSICIAN NOTE OF PERSONAL INVOLVEMENT [...] Staff - Urology September 13, 2022 Normal [facility] HISTORY PHYSICALon HISTORY PHYSICAL HNO ID: [id number] Author: Fani Vallejo APRN.CNP Service: Hospital Medicine [...] 12, 2022 6:02 AM ----- [facility] OF [facility] MEDICINE INITIAL CONSULT SERVICE DATE: 09/11/2022 SERVICE TIME: 7:50 PM Primary Care Physician: Sp Chowdary DO NIGHT AND WEEKEND COVERAGE: JOELLE COVERAGE: Days: [phone], please contact via [employer] Nights: - 3rd floor: please page [facility] Hospitalist night cover [phone] - 4th floor: please page CC Hospitalist night cover [phone] - 5th floor: please page CC Hospitalist night cover [phone] REASON FOR CONSULT: Hyperkalemia REQUESTING PHYSICIAN: Carmella [...] once daily., Disp: , Rfl: , 09/10/2022 BASSTACIA MICHELLE U-100 INSULIN 100 unit/mL (3 mL), [...] H P (more content not included)... Normal [facility] NURSING PROGon 09-12-2022 NURSING PROG HNO ID: [id number] Author: Taylor Barr RN Service: Nursing Author [...] discharge orders reviewed with pt understanding. Normal [facility] POTASSIUM BLDon 09-12-2022 Potassium [Moles/Vol] 4.9 mmol/L Normal 3.7-5.1 [facility] Comment on above: Order Comment: Speci men Type: BLOOD SPECIMENOrdering Facility: [facility] Address: [address] [place] [address] Performed By: #### K 1 ####[facility] LABORATORYCLIA [id number] [facility] [place] [address] [place] ANES POSTPROC EVALon 022 ANES POSTPROC EVAL HNO ID: [id number] Author: Melisa Rangel MD Service: Anesthesiology Author Type: Anesthesiologist Type: Anesthesia Postprocedure Evaluation Filed: 09/11/2022 1:00 PM Note Text: POST ANESTHESIA EVALUATION NOTE : 1960 Procedure Summary Date: 09/11/22 Room / Location: OR01 / AV OR Anesthesia Start: 0732 Anesthesia Stop: 1133 Procedure: PERCUTANEOUS NEPHROLITHOTOMY (Left: Kidney) Diagnosis: Nephrolithiasis [...] September 11, 2022 TIME: 1:00 PM CSN: [id number] [facility] ANES PRE-OPon 09-11-2022 ANES PRE-OP HNO ID: [id number] Author: Melisa Rangel MD Service: Anesthesiology Author [...] and consent discussed: yes. 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 Teacher(s): Surgeon(s) and Role: * Noelle Vega MD [...] x 26cm JJ left ureteral stent [address] Cultures: None Findings: [...] 11, 2022 TIME: 11:21 AM PAGER/CONTACT #: [phone] Normal [facility] Basic metabolic 2000 panelon 09-11-2022 Anion gap [Moles/Vol] 9 mmol/L Normal -18 [facility] Comment on above: Order Comment: Speci men Type: BLOOD SPECIMEN Ordering Facility: [facility] Address: [address] [place], [place] [address] Performed By: #### 5 8410-2 #### [facility] CLIA [id number] [address] [place] [address] [place] Calcium [Mass/Vol] 8.6 mg/dL Normal 8.5-10.2 [facility] Comment on above: Order Comment: Speci men Type: BLOOD SPECIMEN Ordering Facility: [facility] Address: [address] [place] [address] Performed By: #### 5 8410-2 #### [facility] CLIA [id number] [address] [place] [address] [place] Chloride [Moles/Vol] 105 mmol/L Normal 97-105 [facility] Comment on above: Order Comment: Speci men Type: BLOOD SPECIMEN Ordering Facility: [facility] Address: [address] [place] [address] Performed By: #### 5 8410-2 #### [facility] [place] [id number] [address] [place] [address] [place] CO2 [Moles/Vol] 22 mmol/L Normal 22-30 [facility] Comment on above: Order Comment: Speci men Type: BLOOD SPECIMEN Ordering Facility: [facility] Address: [address] [place] [address] Performed By: #### 5 8410-2 #### [facility] IA [id number] [address] [place] [address] [place] Creatinine [Mass/Vol] 1.67 mg/dL High 0.73-1.22 [facility] Comment on above: Order Comment: Speci men Type: BLOOD SPECIMEN Ordering Facility: [facility] Address: [address] [place] [address] Performed By: #### 5 8410-2 #### [facility] IA [id number] [address] [place] [address] [place] ESTIMATED GLOMERULAR FILTRATION RATE 47 mL/min/1.73m??? Low >=60 [facility] Comment on above: Order Comment: Speci men Type: BLOOD SPECIMEN Ordering Facility: [facility] Address: [address] [place] [address] Result Comment: Carole mated Glomerular Filtration Rate [...] GFR. Performed By: #### 5 8410-2 #### [facility] CLIA [id number] [address] [place] [address] [place] Glucose [Mass/Vol] 214 mg/dL High 74-99 [facility] Comment on above: Order Comment: Demar arrington Type: BLOOD SPECIMEN Ordering Facility: [facility] Address: [address] [place] [address] Result Comment: The [place] Diabetes [employer] (ADA) provides guidance for cutoff [...] Standards of Medical Care in Diabetes 2016, [place] [employer]. Diabetes Care. 2016.39(Suppl 1). Performed By: #### 5 8410-2 #### [facility] CLIA [id number] [address] [place] [address] [place] Potassium [Moles/Vol] 5.7 mmol/L High 3.7-5.1 [facility] Comment on above: Order Comment: Demar arrington Type: BLOOD SPECIMEN Ordering Facility: [facility] Address: [address] [place] [address] Performed By: #### 5 8410-2 #### [facility] CLIA [id number] [address] [place] [address] [place] Sodium [Moles/Vol] 136 mmol/L Normal 136-144 [facility] Comment on above: Order Comment: Speci men Type: BLOOD SPECIMEN Ordering Facility: [facility] Address: [address] [place], [place] [address] Performed By: #### 5 8410-2 #### [facility] CLIA [id number] [address] [place] [address] [place] Urea nitrogen [Mass/Vol] 20 mg/dL Normal 9-24 [facility] Comment on above: Order Comment: Speci men Type: BLOOD SPECIMEN Ordering Facility: [facility] Address: [address] [place], [place] [address] Performed By: #### 5 8410-2 #### [facility] CLIA [id number] [address] [place] [address] [facility] [place] CALCULI ANALYSISon 2 Calculus analysis [Interp] Normal [facility] Comment on above: Order Comment: Speci men Type: CALCULUS SPECIMENOrdering Facility: [facility] Address: [address] [place], [place] [address] Result Comment: This test was developed and its performance characteristics determined by [facility] (-PL[facility]). It has not been cleared or approved by the FDA. -[facility] is regulated under CLIA as qualified to perform high-complexity testing. This test is used for clinical purposes. It should not be regarded as investigational or for research. Performed By: #### C SA ####[facility] [id number] [address] [place] CALCULUS COLOR BROWN Normal [facility] Comment on above: Order Comment: Speci men Type: CALCULUS SPECIMENOrdering Facility: [facility] Address: [address] [place], [place] [address] Performed By: #### C SA ####[facility] [id number] [address] [place] CALCULUS COMPOSITION 1 70% Calcium Oxalate Monohydrate Normal [facility] Comment on above: Order Comment: Speci men Type: CALCULUS SPECIMENOrdering Facility: [facility] Address: [facility] [place] [address] Performed By: #### C SA ####[facility] [id number] [place] [address] [place] CALCULUS COMPOSITION 2 20% Calcium Oxalate Dihydrate Normal [facility] Comment on above: Order Comment: Speci men Type: CALCULUS SPECIMENOrdering Facility: [facility] Address: [address] [place], [place] [address] Performed By: #### C SA ####[facility] [id number] [address] [place] CALCULUS COMPOSITION 3 10% Minor Components [facility] Comment on above: Order Comment: Speci men Type: CALCULUS SPECIMENOrdering Facility: [facility] Address: [address] [place] [address] Performed By: #### C SA ####[facility] [id number] [place] [address] [place] CALCULUS SIZE AND WT Multiple pieces. 2.8188 GRAMS Normal [facility] Comment on above: Order Comment: Speci men Type: CALCULUS SPECIMENOrdering Facility: [facility] Address: [address] [place] [address] Performed By: #### C SA ####[facility] [id number] [place] [address] [place] CALCULUS TYPE CALCULI/CALCULUS Normal [facility] Comment on above: Order Comment: Speci men Type: CALCULUS SPECIMENOrdering Facility: [facility] Address: [address] [place] [address] Performed By: #### C SA ####[facility] [id number] [place] AVENUEDESK [id number] CBC panel Auto (Bld)on 09-11 Erythrocyte distribution width (RBC) [Ratio] 13.8 % Normal 11.5-15.0 [facility] Comment on above: Order Comment: Speci men Type: BLOOD SPECIMEN Ordering Facility: [facility] Address: [address] [place] [address] Performed By: #### 5 8410-2 #### [facility] CLIA [id number] Hematocrit (Bld) [Volume fraction] 40.1 % Normal 39.0-51.0 [facility] Comment on above: Order Comment: Speci men Type: BLOOD SPECIMEN Ordering Facility: [facility] Address: [address] [place] [address] Performed By: #### 5 8410-2 #### [facility] CLIA [id number] [place] Hemoglobin (Bld) [Mass/Vol] 12.3 g/dL Low 13.0-17.0 [facility] Comment on above: Order Comment: Speci men Type: BLOOD SPECIMEN Ordering Facility: [facility] Address: [address] [place] [address] Performed By: #### 5 8410-2 #### [facility] CLIA [id number] MCH (RBC) [Entitic mass] 25.6 pg Low 26.0-34.0 [facility] Comment on above: Order Comment: Speci men Type: BLOOD SPECIMEN Ordering Facility: [facility] Address: [address] [place] [address] Performed By: #### 5 8410-2 #### [facility] CLIA [id number] MCHC (RBC) [Mass/Vol] 30.7 g/dL Normal 30.5-36.0 [facility] Comment on above: Order Comment: Speci men Type: BLOOD SPECIMEN Ordering Facility: [facility] Address: [address] [place], [place] [address] Performed By: #### 5 8410-2 #### [facility] IA [id number] [address] [place] [address] [place] MCV (RBC) [Entitic vol] 83.5 fL Normal 80.0-100.0 [facility] Comment on above: Order Comment: Speci men Type: BLOOD SPECIMEN Ordering Facility: [facility] Address: [address] [place], [place] [address] Performed By: #### 5 8410-2 #### [facility] IA [id number] [address] [place] [address] [place] Nucleated RBC (Bld) [#/Vol] 10*3/uL Normal <0.01 [facility] Comment on above: Order Comment: Speci men Type: BLOOD SPECIMEN Ordering Facility: [facility] Address: [address] [place], [place] [address] Performed By: #### 5 8410-2 #### [facility] IA [id number] [address] [place] [address] [place] Platelet mean volume (Bld) [Entitic vol] 9.5 fL Normal 9.0-12.7 [facility] Comment on above: Order Comment: Speci men Type: BLOOD SPECIMEN Ordering Facility: [facility] Address: [address] [place] [address] Performed By: #### 5 8410-2 #### [facility] IA [id number] [address] [place] [address] [place] Platelets (Bld) [#/Vol] 137 10*3/uL Low 150-400 [facility] Comment on above: Order Comment: Speci men Type: BLOOD SPECIMEN Ordering Facility: [facility] Address: [address] [place], [place] [address] Performed By: #### 5 8410-2 #### [facility] IA [id number] [address] [place] [address] [place] RBC (Bld) [#/Vol] 4.80 10*6/uL Normal 4.20-6.00 [facility] Comment on above: Order Comment: Speci men Type: BLOOD SPECIMEN Ordering Facility: [facility] Address: [address] [place] [address] Performed By: #### 5 8410-2 #### [facility] CLIA [id number] WBC (Bld) [#/Vol] 7.34 10*3/uL Normal 3.70-11.00 [facility] Comment on above: Order Comment: Speci men Type: BLOOD SPECIMEN Ordering Facility: [facility] Address: [address] [place] [address] Performed By: #### 5 8410-2 #### [facility] CLIA [id number] ECG COMPLETEon 09-11-2022 ECG COMPLETE Ventricular Rate : 9 0 BPM Atrial Rate : 90 BPM P-R Interval : 175 ms QRS Duration : 92 ms Q-T Interval : 360 ms QTC Calculation(Bazett) : 441 ms Calculated P Mcconnell : 42 degrees Calculated R Mcconnell : -16 degrees Calculated T Mcconnell : 29 degrees Sinus rhythm Borderline left axis deviation Abnormal R-wave progression, early transition Otherwise Normal ECG Confirmed by Rubén CURRIE RAVISANKAR ([id number]) on 09/15/2022 2:00:08 PM NAME : DAT LOPEZ PID : [id number] : 1960 Gender : Male Race : ORD : [id number] Procedure Date : Sep 11 2022 20:12:04 Edit Date : Sep 15 2022 14:00:15 Diagnosis: Sinus rhythm Borderline left axis deviation Abnormal R-wave progression, early transition Otherwise Normal ECG Confirmed by Rubén CURRIE RAVISANKAR ([id number]) on 09/15/2022 2:00:08 PM Test Reason : Other - Specify Location : 300 : EKG 534 Overread By : Rubén CURRIE RAVISANKAR Edited By : BOLLA, M.D.,RAVISANKAR Referred By : , Acquired by : [id number], [facility] HISTORY PHYSICALon HISTORY PHYSICAL HNO ID: [id number] Author: Noelle Vega MD Service: Urology Author [...] Vega MD September 11, 2022 7:23 AM [facility] NURSING PROGon 09-11-2022 NURSING PROG HNO ID: [id number] Author: Oanh Mc RN Service: Nursing Author Type: Registered Nurse Type: Nursing Progress Note Filed: 09/11/2022 5:34 PM Note Text: Other: Page sent to surgical pager. K noted to be 5.8. Will await further instructions. LOPEZ 534- Potassium is 5.8 Thanks Oanh 5570 [facility] NURSING PROG HNO ID: [id number] Author: Malena Salvador RN Service: Nursing Author Type: Registered Nurse Type: Nursing Progress Note Filed: 09/11/2022 12:55 PM Note Text: Transfer Note: Patient transferred into room/unit 534 in stable condition. Actions taken: No futher actions taken at this time. Will continue to monitor and check with patient. [facility] NURSING PROG HNO ID: [id number] Author: Radha Rae RN Service: ? Author Type: Registered Nurse Type: Nursing Progress Note Filed: 09/11/2022 12:30 PM Note Text: Report from Kaushal Norton for coverage. Pt denies pain at this time. VSS. 1210 - Pt tolerating ice chips. 1225 - Pt continues to deny pain. Report called to [address] [place] [address] OPERATIVE NOon 09-11-2022 OPERATIVE NO HNO ID: [id number] Author: Noelle Vega MD Service: Urology Author Type: Physician Type: Operative Report Filed: 09/11/2022 12:07 PM Note Text: OPERATIVE/PROCEDURE REPORT LOG ID: [id number] SURGERY/PROCEDURE DATE: 09/11/2022 INCISION/PROCEDURE START TIME: 8:06 AM INCISION CLOSE/PROCEDURE END TIME: 11:12 AM SURGEON(S)/PROCEDURALIST( S) AND BARMAID(S): Surgeon(s) and Role: * Noelle Vega MD [...] were given. DVT prophylaxis with SCD and BHANU stockings was provided. The patient was then [...] larger stone burden in the upper pole. Crime Data Specialist images were obtained in 2 planes using [...] working wi (more content not included)... Normal [facility] POTASSIUM [facility] 09-11-2022 Potassium [Moles/Vol] 5.7 mmol/L High 3.7-5.1 [facility] Comment on above: Order Comment: Speci men Type: BLOOD SPECIMEN Ordering Facility: [facility] Address: [address] [place] [address] Performed By: #### 5 8410-2 #### [facility] CLIA [id number] STATES OF [facility] Potassium [Moles/Vol] 5.8 mmol/L High 3.7-5.1 [facility] Comment on above: Order Comment: Speci men Type: BLOOD SPECIMEN Ordering Facility: [facility] Address: [address] [place] [address] Performed By: #### 5 8410-2 #### [facility] CLIA [id number] [address] [place] [address] [place] XR CHEST 1V [...] Pulmonary vasculature is unremarkable. IMPRESSION: Bibasilar atelectasis. Principal Examiner: VITOR Transcribe Date/Time: Sep 11 2022 12:00P Dictated by : CECE GALVIN MD This examination was interpreted and the report reviewed and electronically signed by: CECE GALVIN MD on Sep 11 2022 12:01PM EST [id number] Normal [facility] 25(OH)D3 SerPl-mCncon 2021 25-hydroxyvitamin D3 [Mass/Vol] 42.6 ng/mL Normal 31.0-80.0 [facility] Comment on above: Order Comment: Speci men Type: BLOOD SPECIMENOrdering Facility: [facility] Address: [address] [place] [address] Result Comment: Clas sification of 25 [place] Vitamin D status: Deficiency/Insufficiency: < or = 30 ng/ml. Sufficiency/Optimal Levels: 31-80 ng/mL Toxicity: > 100 ng/mL. Test performed by chemiluminescent immunoassay. Performed By: #### 1 989-3 ####[facility] [id number] [place] [address] [place] Bacteria Ur Culton 2 Bacteria identified Cx Nom (U) CULTURE, URINE: No growth (<1,000 CFU/ml) Normal [facility] Comment on above: Performed By: #### 6 30-4 ####[facility] [id number] [place] [address] [place] CBC W Auto Differential pane l (Bld)on 08-28-2022 Basophils (Bld) [#/Vol] 0.03 10*3/uL Normal <0.11 [facility] Comment on above: Order Comment: Speci men Type: BLOOD SPECIMENOrdering Facility: [facility] Address: [address] [place], [place] [address] Performed By: #### 5 7021-8 ####[facility]ORY[facility]IA [id number] [facility] [place] [address] [place] Basophils/100 WBC (Bld) 0.4 % Normal [facility] Comment on above: Order Comment: Speci men Type: BLOOD SPECIMENOrdering Facility: [facility] Address: [address] [place] [address] Performed By: #### 5 7021-8 ####[facility]ORY[facility] [id number] [place] [address] [place] Differential cell count method Nom (Bld) Auto Normal [facility] Comment on above: Order Comment: Speci men Type: BLOOD SPECIMENOrdering Facility: [facility] Address: [address] [place] [address] Performed By: #### 5 7021-8 ####[facility]ORY[facility]IA [id number] [place] [address] [place] Eosinophils (Bld) [#/Vol] 0.31 10*3/uL Normal <0.46 [facility] Comment on above: Order Comment: Speci men Type: BLOOD SPECIMENOrdering Facility: [facility] Address: [address] [place] [address] Performed By: #### 5 7021-8 ####[facility] [id number] [place] [address] [place] Eosinophils/100 WBC (Bld) 4.4 % Normal [facility] Comment on above: Order Comment: Speci men Type: BLOOD SPECIMENOrdering Facility: [facility] Address: [address] [place] [address] Performed By: #### 5 7021-8 ####[facility] [id number] [address] STATES [place] Erythrocyte distribution width (RBC) [Ratio] 13.9 % Normal 11.5-15.0 [facility] Comment on above: Order Comment: Speci men Type: BLOOD SPECIMENOrdering Facility: [facility] Address: [address] [place] [address] Performed By: #### 5 7021-8 ####[facility] [id number] [address] [place] Hematocrit (Bld) [Volume fraction] 40.0 % Normal 39.0-51.0 [facility] Comment on above: Order Comment: Speci men Type: BLOOD SPECIMENOrdering Facility: [facility] Address: [address] [place] [address] Performed By: #### 5 7021-8 ####[facility] [id number] [place] [address] [place] Hemoglobin (Bld) [Mass/Vol] 13.0 g/dL Normal 13.0-17.0 [facility] Comment on above: Order Comment: Speci men Type: BLOOD SPECIMENOrdering Facility: [facility] Address: [address] [place] [address] Performed By: #### 5 7021-8 ####[facility] [id number] [address] [place] IMMATURE GRAN % 0.4 % Normal [facility] Comment on above: Order Comment: Speci men Type: BLOOD SPECIMENOrdering Facility: [facility] Address: [address] [place] [address] Performed By: #### 5 7021-8 ####[facility] [id number] [address] [place] IMMATURE GRAN ABS 0.03 k/uL Normal <0.10 [facility] Comment on above: Order Comment: Speci men Type: BLOOD SPECIMENOrdering Facility: [facility] Address: [address] [place] [address] Performed By: #### 5 7021-8 ####[facility] [id number] [address] [place] Lymphocytes (Bld) [#/Vol] 2.20 10*3/uL Normal 1.00-4.00 [facility] Comment on above: Order Comment: Speci men Type: BLOOD SPECIMENOrdering Facility: [facility] Address: [address] [place] [address] Performed By: #### 5 7021-8 ####[facility] [id number] [address] STATES [facility] Lymphocytes/100 WBC (Bld) 31.2 % Normal [facility] Comment on above: Order Comment: Speci men Type: BLOOD SPECIMENOrdering Facility: [facility] Address: [address] [place] [address] Performed By: #### 5 7021-8 ####[facility] [id number] [place] [address] [place] MCH (RBC) [Entitic mass] 26.5 pg Normal 26.0-34.0 [facility] Comment on above: Order Comment: Speci men Type: BLOOD SPECIMENOrdering Facility: [facility] Address: [address] [place] [address] Performed By: #### 5 7021-8 ####[facility] [id number] [address] [place] MCHC (RBC) [Mass/Vol] 32.5 g/dL Normal 30.5-36.0 [facility] Comment on above: Order Comment: Speci men Type: BLOOD SPECIMENOrdering Facility: [facility] Address: [address] [place] [address] Performed By: #### 5 7021-8 ####[facility] [id number] [address] [place] MCV (RBC) [Entitic vol] 81.5 fL Normal 80.0-100.0 [facility] Comment on above: Order Comment: Speci men Type: BLOOD SPECIMENOrdering Facility: [facility] Address: [address] [place], [place] [address] Performed By: #### 5 7021-8 ####[facility] [id number] [place] [address] [place] Monocytes (Bld) [#/Vol] 0.44 10*3/uL Normal <0.87 [facility] Comment on above: Order Comment: Speci men Type: BLOOD SPECIMENOrdering Facility: [facility] Address: [address] [place], [place] [address] Performed By: #### 5 7021-8 ####[facility]ATORYCLIA [id number] [place] [address] [place] Monocytes/100 WBC (Bld) 6.2 % Normal [facility] Comment on above: Order Comment: Speci men Type: BLOOD SPECIMENOrdering Facility: [facility] Address: [address] [place], [place] [address] Performed By: #### 5 7021-8 ####[facility]ORATORYCLIA [id number] [place] [address] [place] Neutrophils (Bld) [#/Vol] 4.05 10*3/uL Normal 1.45-7.50 [facility] Comment on above: Order Comment: Speci men Type: BLOOD SPECIMENOrdering Facility: [facility] Address: [address] [place] [address] Performed By: #### 5 7021-8 ####[facility] LAB[facility]ATORYIA [id number] [place] [address] [place] Neutrophils/100 WBC (Bld) 57.4 % Normal [facility] Comment on above: Order Comment: Speci men Type: BLOOD SPECIMENOrdering Facility: [facility] Address: [address] [place], [place] [address] Performed By: #### 5 7021-8 ####[facility] LAB[facility]ATORYIA [id number] [place] [address] [place] Nucleated RBC (Bld) [#/Vol] 10*3/uL Normal <0.01 [facility] Comment on above: Order Comment: Speci men Type: BLOOD SPECIMENOrdering Facility: [facility] Address: [address] [place] [address] Performed By: #### 5 7021-8 ####[facility] LABORATORYIA [id number] [place] [address] [place] Nucleated RBC/100 WBC (Bld) [Ratio] 0.0 /100 WBC Normal [facility] Comment on above: Order Comment: Speci men Type: BLOOD SPECIMENOrdering Facility: [facility] Address: [address] [place] [address] Performed By: #### 5 7021-8 ####[facility]ENTER[facility] [id number] [place] [address] [place] Platelet mean volume (Bld) [Entitic vol] 9.7 fL Normal 9.0-12.7 [facility] Comment on above: Order Comment: Speci men Type: BLOOD SPECIMENOrdering Facility: [facility] Address: [address] [place] [address] Performed By: #### 5 7021-8 ####[facility] [id number] [place] [address] [place] Platelets (Bld) [#/Vol] 169 10*3/uL Normal 150-400 [facility] Comment on above: Order Comment: Speci men Type: BLOOD SPECIMENOrdering Facility: [facility] Address: [address] [place] [address] Performed By: #### 5 7021-8 ####[facility] [id number] [place] [address] [place] RBC (Bld) [#/Vol] 4.91 10*6/uL Normal 4.20-6.00 [facility] Comment on above: Order Comment: Speci men Type: BLOOD SPECIMENOrdering Facility: [facility] Address: [address] [place], [place] [address] Performed By: #### 5 7021-8 ####[facility]ATORYIA [id number] [place] [address] [place] WBC (Bld) [#/Vol] 7.06 10*3/uL Normal 3.70-11.00 [facility] Comment on above: Order Comment: Speci men Type: BLOOD SPECIMENOrdering Facility: [facility] Address: [address] [place] [address] Performed By: #### 5 7021-8 ####[facility]ORATORYCLIA [id number] [place] [address] [place] CT FLANK WO IVCONon 08-28-20 CT FLANK WO IVCON * * *Final Report* * * DATE OF EXAM: Aug 28 2022 7:10AM [facility] [id number] - CT FLANK WO IVCON / [...] lesions. Lower thorax: Lower lungs are clear. Crime Data Specialist (topogram) images: Unremarkable. IMPRESSION: Extensive amount of left-sided urolithiasis with left-sided double-J ureteral stent in place. Principal Examiner: PSCB Transcribe Date/Time: Aug 28 2022 10:17A Dictated by : CECE GALVIN MD This examination was interpreted and the report reviewed and electronically signed by: CECE GALVIN MD on Aug 28 2022 10:31AM EST [id number] Normal [facility] Comprehensive metabolic 2000 panelon 08-28-2022 Albumin [Mass/Vol] 4.5 g/dL Normal 3.9-4.9 [facility] Comment on above: Order Comment: Speci men Type: BLOOD SPECIMENOrdering Facility: [facility] Address: [address] [place] [address] Performed By: #### 2 4323-8 ####[facility] [id number] [place] [address] [place] ALP [Catalytic activity/Vol] 99 U/L Normal 38-113 [facility] Comment on above: Order Comment: Speci men Type: BLOOD SPECIMENOrdering Facility: [facility] Address: [address] [address] Performed By: #### 2 4323-8 ####[facility]ORY[facility] [id number] [place] [address] [place] ALT [Catalytic activity/Vol] 17 U/L Normal 10-54 [facility] Comment on above: Order Comment: Speci men Type: BLOOD SPECIMENOrdering Facility: [facility] Address: [address] [address] Performed By: #### 2 4323-8 ####[facility]ORATORYCLIA [id number] [place] [address] [place] Anion gap [Moles/Vol] 9 mmol/L Normal 9-18 [facility] Comment on above: Order Comment: Speci men Type: BLOOD SPECIMENOrdering Facility: [facility] Address: [address] [place], [place] [address] Performed By: #### 2 4323-8 ####[facility]ORYIA [id number] [place] [address] [place] AST [Catalytic activity/Vol] 20 U/L Normal 14-40 [facility] Comment on above: Order Comment: Speci men Type: BLOOD SPECIMENOrdering Facility: [facility] Address: [address] [place], [place] [address] Performed By: #### 2 4323-8 ####[facility] [id number] [place] [address] [place] Bilirubin [Mass/Vol] 0.2 mg/dL Normal 0.2-1.3 [facility] Comment on above: Order Comment: Speci men Type: BLOOD SPECIMENOrdering Facility: [facility] Address: [address] [place], [place] [address] Performed By: #### 2 4323-8 ####[facility] [id number] [place] [address] [place] Calcium [Mass/Vol] 9.5 mg/dL Normal 8.5-10.2 [facility] Comment on above: Order Comment: Speci men Type: BLOOD SPECIMENOrdering Facility: [facility] Address: [address] [place] [address] Performed By: #### 2 4323-8 ####[facility]ORYIA [id number] [place] [address] [place] Chloride [Moles/Vol] 106 mmol/L High 97-105 [facility] Comment on above: Order Comment: Speci men Type: BLOOD SPECIMENOrdering Facility: [facility] Address: [address] [place] [address] Performed By: #### 2 4323-8 ####[facility]ORYIA [id number] [place] [address] [place] CO2 [Moles/Vol] 25 mmol/L Normal 22-30 [facility] Comment on above: Order Comment: Speci men Type: BLOOD SPECIMENOrdering Facility: [facility] Address: [address] [address] Performed By: #### 2 4323-8 ####[facility]ORATORYCLIA [id number] [address] [place] Creatinine [Mass/Vol] 1.22 mg/dL Normal 0.73-1.22 [facility] Comment on above: Order Comment: Speci men Type: BLOOD SPECIMENOrdering Facility: [facility] Address: [address] [place] [address] Performed By: #### 2 4323-8 ####[facility]ORATORYCLIA [id number] [address] OF [facility] ESTIMATED GLOMERULAR FILTRATION RATE 68 mL/min/1.73m??? Normal >=60 [facility] Comment on above: Order Comment: Speci men Type: BLOOD SPECIMENOrdering Facility: [facility] Address: [address] [place] [address] Result Comment: Carole mated Glomerular Filtration Rate [...] actual GFR. Performed By: #### 2 4323-8 ####[facility]ORATORYCLIA [id number] [address] [place] Glucose [Mass/Vol] 158 mg/dL High 74-99 [facility] Comment on above: Order Comment: Speci men Type: BLOOD SPECIMENOrdering Facility: [facility] Address: [address] [place] [address] Result Comment: The [place] Diabetes Association (ADA) provides guidance for cutoff [...] Standards of Medical Care in Diabetes 2016, [place] Diabetes Association. Diabetes Care. 2016.39(Suppl 1). Performed By: #### 2 4323-8 ####[facility]ORYIA [id number] [place] [address] [place] Potassium [Moles/Vol] 4.7 mmol/L Normal 3.7-5.1 [facility] Comment on above: Order Comment: Speci men Type: BLOOD SPECIMENOrdering Facility: [facility] Address: [address] [place] [address] Performed By: #### 2 4323-8 ####[facility] [id number] [address] [address] [place] Protein [Mass/Vol] 6.7 g/dL Normal 6.3-8.0 [facility] Comment on above: Order Comment: Speci men Type: BLOOD SPECIMENOrdering Facility: [facility] Address: [address] [place] [address] Performed By: #### 2 4323-8 ####[facility]ORYIA [id number] [place] [address] [place] Sodium [Moles/Vol] 140 mmol/L Normal 136-144 [facility] Comment on above: Order Comment: Speci men Type: BLOOD SPECIMENOrdering Facility: [facility] Address: [address] [address] Performed By: #### 2 4323-8 ####[facility]ORYIA [id number] [place] [address] [place] Urea nitrogen [Mass/Vol] 23 mg/dL Normal 9-24 [facility] Comment on above: Order Comment: Speci men Type: BLOOD SPECIMENOrdering Facility: [facility] Address: [address] [place] [address] Performed By: #### 2 4323-8 ####[facility]ORATORYCLIA [id number] [facility] [address] [place] [facility] HISTORY PHYSICALon HISTORY PHYSICAL HNO ID: [id number] Author: Mechelle Burnett PA-C Service: ? Author Type: Physician Recreation Therapy Aides Teacher Type: HANDP Filed: 08/29/2022 9:43 AM Note [...] Prior to Admission medications as of 08/28/22 0966 Medication Sig Last Dose Taking metFORMIN (GLUCOPHAGE) [...] fevers. Neuro: No history of TIA's, stroke, PERFORMANCE IMPROVEMENT COORDINATOR tumor, impaired sensorium, hemiplegia, paraplegia or quadraplegia. No neurological symptoms or problems. Respiratory: No history of current cough or dyspnea, or pneumonia in the past 6 weeks. No history of respiratory/pulmonary symptoms or problems. Cardiovascular: +HTN, HLD, POTS- no recent episodes Negative for Recent MS, Angina, Chest Pain, CHF, DVT/PE GI: No [...] problems. Musc (more content not included)... Normal [facility] HbA1c (Bld)on 08-28-2022 Average glucose Estimated from glycated hemoglobin (Bld) [Mass/Vol] 131 mg/dL Normal [facility] Comment on above: Order Comment: Demar arrington Type: BLOOD SPECIMEN [facility] Address: [address] [place] [address] Result Comment: eAG: (Estimated average glucose) is a calculated value from HgbA1c and is in store representative of the average blood glucose level in the last 2-3 month period. Performed By: #### 5 8410-2 #### [facility] CLIA [id number] [facility] OF [facility] HbA1c (Bld) [Mass fraction] 6.2 % High 4.3-5.6 [facility] Comment on above: Order Comment: Demar arrington Type: BLOOD SPECIMEN [facility] Address: [address] [address] Result Comment: [place] Diabetes Association guidelines indicate that patients with HgbA1c in the range 5.7-6.4% are at increased risk for development of diabetes, and intervention by lifestyle modification may be beneficial. HgbA1c greater or equal to 6.5% is considered diagnostic of diabetes. Performed By: #### 5 8410-2 #### [facility] CLIA [id number] [facility]. [address] [place] PT panel Coag (PPP)on 2021 INR Coag (PPP) [Relative time] 1.0 {INR} Normal 0.9-1.3 [facility] Comment on above: Order Comment: Demar arrington Type: BLOOD SPECIMEN [facility] Address: [address] [place] [address] Result Comment: No min K Antagonist (VKA) Therapeutic Range: INR 2 to 3 (Target INR of 2.5) Note: For patients treated with VKA drugs, such as warfarin, the [place] [employer]icians 2012 Guideline recommends [...] Chest 2012, 141:7S-47S Soo RA, et al. [facility] 2017, 70: 252-289 Performed By: #### 5 8410-2 #### [facility] CLIA [id number] [address] [place] [address] [place] PT Coag (PPP) [Time] 10.3 s Normal 9.7-13.0 [facility] Comment on above: Order Comment: Demar arrington Type: BLOOD SPECIMEN [facility] Address: [address] [place] [address] Performed By: #### 5 8410-2 #### [facility] CLIA [id number] [address] [place] [address] [place] PTH-Intact SerPl-ncon 08-19 Parathyrin.intact [Mass/Vol] 26 pg/mL Normal 15-65 [facility] Comment on above: Order Comment: Demar arrington Type: BLOOD SPECIMEN [facility] Address: [address] [place] [address] Performed By: #### 5 8410-2 #### [facility] CLIA [id number] [address] [place], [place] [address] [place] [address] TYPE AND SCREEN,30 DAYon ABO O Normal [facility] Comment on above: Order Comment: Speci men Type: BLOOD SPECIMENOrdering Facility: [facility] Address: [address] [place] [address] Performed By: #### T SCR30 ####[facility] [id number] [address] [place] HISTORICAL AB SCR STATUS Negative [facility] Comment on above: Order Comment: Speci men Type: BLOOD SPECIMENOrdering Facility: [facility] Address: [address] [place] [address] Performed By: #### T SCR30 ####[facility] [id number] [address] [place] Rh Nom (Bld) Positive Normal [facility] Comment on above: Order Comment: Speci men Type: BLOOD SPECIMENOrdering Facility: [facility] Address: [address] [place] [address] Performed By: #### T SCR30 ####[facility] [id number] [address] [place] Urinalysis complete panel (U )on 08-28-2022 Bilirubin Ql (U) Negative Normal Negative [facility] Comment on above: Order Comment: Speci men Type: BLOOD SPECIMEN [facility] Address: [address] [place] [address] Performed By: #### 5 8410-2 #### [facility] CLIA [id number] [address] [place] [address] [place] Clarity (Unsp spec) Cloudy Abnormal Clear [facility] Comment on above: Order Comment: Speci men Type: BLOOD SPECIMEN [facility] Address: [address] [place] [address] Performed By: #### 5 8410-2 #### [facility] IA [id number] [address] [place] [address] [place] Color (U) Marion Abnormal Yellow [facility] Comment on above: Order Comment: Speci men Type: BLOOD SPECIMEN [facility] Address: [address] [place] [address] Performed By: #### 5 8410-2 #### [facility] IA [id number] [place] [address] [place] Glucose Test strip (U) [Mass/Vol] Negative Normal Negative [facility] Comment on above: Order Comment: Speci men Type: BLOOD SPECIMEN [facility] Address: [address] [place] [address] Performed By: #### 5 8410-2 #### [facility] IA [id number] [address] [place] [address] [place] Hemoglobin Ql (U) 3+ Abnormal Negative [facility] Comment on above: Order Comment: Speci men Type: BLOOD SPECIMEN [facility] Address: [address] [place] [address] Performed By: #### 5 8410-2 #### [facility] [id number] [address] [place] [address] [place] Ketones Ql (U) Negative Normal Negative [facility] Comment on above: Order Comment: Speci men Type: BLOOD SPECIMEN [facility] Address: [address] [place] [address] Performed By: #### 5 8410-2 #### [facility] IA [id number] [address] [place] [address] [place] Leukocyte esterase Test strip Ql (U) 1+ Abnormal Negative [facility] Comment on above: Order Comment: Speci men Type: BLOOD SPECIMEN [facility] Address: [address] [place] [address] Performed By: #### 5 8410-2 #### [facility] IA [id number] [address] [place] [address] [place] Nitrite Ql (U) Negative Normal Negative [facility] Comment on above: Order Comment: Speci men Type: BLOOD SPECIMEN [facility] Address: [address] [place] [address] Performed By: #### 5 8410-2 #### [facility] IA [id number] [address] [place] [address] [place] pH (U) 5.5 [pH] Normal 5.0-8.0 [facility] Comment on above: Order Comment: Speci men Type: BLOOD SPECIMEN [facility] Address: [address] [place] [address] Performed By: #### 5 8410-2 #### [facility] [id number] [address] [place] [address] [place] Protein (U) [Mass/Vol] Normal [facility] Comment on above: Order Comment: Speci men Type: BLOOD SPECIMEN [facility] Address: [address] [place] [address] Result Comment: Visi ble blood causes falsely elevated results for analyte Protein. Due to this limitation, Protein will not be reported for patients whose urine contains visible blood. Performed By: #### 5 8410-2 #### [facility] IA [id number] [address] [place] [address] [place] RBC LM.HPF (Urine sed) [#/Area] 11-25 /HPF Abnormal 0-3 /HPF [facility] Comment on above: Order Comment: Speci men Type: BLOOD SPECIMEN [facility] Address: [address] [place] [address] Performed By: #### 5 8410-2 #### [facility] IA [id number] [address] [place] [address] [place] Specific gravity (U) [Rel density] 1.014 Normal 1.005-1.030 [facility] Comment on above: Order Comment: Speci men Type: BLOOD SPECIMEN [facility] Address: [address] [place] [address] Performed By: #### 5 8410-2 #### [facility] IA [id number] [address] [place] [address] Urobilinogen Ql (U) 0.2 EU/dL Normal 0.2-1.0 EU/dL [facility] Comment on above: Order Comment: Speci men Type: BLOOD SPECIMEN [facility] Address: [address] [place] [address] Performed By: #### 5 8410-2 #### [facility] [id number] [address] [place] [address] WBC LM.HPF (Urine sed) [#/Area] 6-10 /HPF Abnormal 0-5 /HPF [facility] Comment on above: Order Comment: Speci men Type: BLOOD SPECIMEN [facility] Address: [address] [place] [address] Performed By: #### 5 8410-2 #### [facility] IA [id number] [address] [place] [address] aPTT PPPon 08-28-2022 aPTT Coag (PPP) [Time] 27.0 s Normal 23.0-32.4 [facility] Comment on above: Order Comment: Speci men Type: BLOOD SPECIMEN [facility] Address: [address] [place] [address] Performed By: #### 5 8410-2 #### [facility] IA [id number] [address] [place] [address] CNPAnali 08-25-2022 CNPN Telephone (URFMOB) ----- DAT LOPEZ ([id number]) 1960 M Date Time Provider Department 08/25/22 [...] Fully Assessed Reason for Visit: Patient Question [6424] Prescriptions as of 08/28/2022 - metFORMIN (GLUCOPHAGE) [...] Encounter Status:Closed by EVELYN HICKS on 08/28/22 [facility] 08-24-2022 BANNER Telephone (URGlobal BioDiagnosticsOB) ----- DAT LOPEZ ([id number]) 1960 M Date Time Provider Department 08/24/22 NOELLE VEGA During your visit today, we recorded the following information about you: Eddie Freed [facility] 08/24/2022 3:53 PM Signed Called patient to review preop appts and instructions. Unable to leave message, no vm available. Eddie Freed Pss 08/25/2022 4:36 PM Signed Patient scheduled for surgery on 09/11 at [facility] for PERCUTANEOUS NEPHROLITHOTOMY [6007] - Kidney - Left. Patient will be [...] Encounter Status:Closed by EDDIE MORENO on 08/25/22 [facility] 08-16-2022 CNPN Telephone (UROLAV) ----- DAT LOPEZ ([id number]) 1960 M Date Time Provider Department 08/16/22 NEOLLE VEGA During your visit today, we recorded [...] Visit: Other [Other] Cmt: CD from [facility] XR KUB Prescriptions as of 08/16/2022 [...] by BIENVENIDO DEL CID MA on 08/16/22 [facility] CNOV[facility] 08-11-2022 CNOV Office Visit (UROLAV ) ----- DAT LOPEZ James ([id number]) 1960 M Date Time Provider Department 08/11/22 11:00 AM NOELLE VEGA During your visit today, we recorded the following information about you: Pulse Blood pressure Weight 66/minute 176/89 99.8 kg Noelle Vega MD 08/11/2022 11:28 AM Signed [facility] NEW PATIENT HISTORY AND PHYSICAL EXAM PATIENT INFO: Dat Lopez 62 year old REFERRING M.D.: Pelon Coles [address] [place] [address] PCP: No primary care provider on file. [...] Left NL, multiple stones. ESWL was performed. [facility]. Then URS x 2 and ureteral stent [...] black stools or change in bowel habits [place] (more content not included)... Normal [facility] UA DIP, URINE (POC)on 2021 BILIRUBIN UA (POCT) Negative Negative [facility] CLARITY UA (POCT) Slightly Cloudy Cl [facility] COLOR UA (POCT) Yellow [facility] GLUCOSE UA (POCT) Negative Negative mg/dL [facility] HEMOGLOBIN/BLOOD UA (POCT) Large Abnormal Negative [facility] KETONE UA (POCT) Negative Negative mg/dL [facility] [place] LEUKOCYTES UA (POCT) Small Abnormal Negative [facility] NITRITE UA (POCT) Negative [facility] ([facility]CT) 5.5 4.5 - 8.0 [facility] Protein Ql (U) 30 mg/dL Abnormal Negative mg/dL [facility] SPECIFIC GRAVITY UA (POCT) 1.015 1.005 - 1.030 [facility] UROBILINOGEN UA (POCT) 0.2 E.U./dL Normal E.U./dL [facility] XR KUB 1 VIEWon 07-19-2022 XR [...] by: GEMA OTTO Date: 2022-07-19 11:[address] [facility] XR KUB 1 VIEWon 06-29-2022 XR [...] JI CULLEN Date: 2022-06-29 07:43 Normal [facility] CALCULI, URINARYon 2 2,8 Dihydroxyadenine Normal [facility] Comment on above: Performed By: #### C ALCULI #### [facility] [address] [place] [address] Dr. Nikky Man Ammonium Acid Urate Normal [facility] Comment on above: Performed By: #### C ALCULI #### [facility] [address] [address] [address] Nikky Man Bilirubin Ql (U) Normal [facility] Comment on above: Performed By: #### C ALCULI #### [facility] [address] [address] [address] Nikky Man Ca Oxalate Dihydrate 10 % [facility] Comment on above: Performed By: #### C ALCULI #### [facility] [address] [address] [address] Nikky Man CaHPO4 (Brushite) [place] [facility] Comment on above: Performed By: #### C ALCULI #### [facility] [address] [address] [address] Nikky Man Calcium Bilirubinate Normal [facility] Comment on above: Performed By: #### C ALCULI #### [facility] [address] [address] [address] Nikky Man Calcium Carbonate Normal [facility] Comment on above: Performed By: #### C ALCULI #### [facility] [address] [address] [address] Nikky Man Calcium Oxalate Monohydrate 90 % Normal [facility] Comment on above: Performed By: #### C ALCULI #### [facility] [address] [address] [address] Nikky Man Calcium Palmitate Normal [facility] Comment on above: Performed By: #### C ALCULI #### [facility] [address] [address] [address] Nikky Man Calcium Phosphate Normal [facility] Comment on above: Performed By: #### C ALCULI #### [facility] [address] [address] [address] Nikky Man Calcium Stearate Normal [facility] Comment on above: Performed By: #### C ALCULI #### [facility] [address] [address] [address] Nikky Man Carbonate Apatite Normal [facility] Comment on above: Performed By: #### C ALCULI #### [facility] [address] [address] [address] Nikky Man Cellular Material Normal [facility] Comment on above: Performed By: #### C ALCULI #### [facility] [address] [address] [address] Nikky Man Cholesterol [facility] Comment on above: Performed By: #### C ALCULI #### [facility] [address] [place] [place] [address] Dr. Nikky Man Color (U) Trammell Normal [facility] Comment on above: Performed By: #### C ALCULI #### [facility] [address] [place] [address] Dr. Nikky Man Comment [facility] Comment on above: Performed By: #### C ALCULI #### [facility] [address] [address] [address] Nikky Man Comment Comment [facility] Comment on above: Result Comment: Calc ulus received in liquid. Wet calculi must be dried before analysis, which delays reporting of results. Leaving calculi in liquid (such as water, saline, blood, urine) may lead to changes in composition. Performed By: #### C ALCULI #### [facility] [address] [address] [address] Nikky Man Comment: Comment Normal [facility] Comment on above: Result Comment: Kaycee valenzuela questions regarding Calculi Analysis contact [facility] at: [phone]. Performed By: #### C ALCULI #### [facility] [address] [place] [address] Dr. Nikky Man Composition Comment [facility] Comment on above: Result Comment: Perc entage (Represents the % composition) Performed By: #### C ALCULI #### [facility] [address] [place] [address] Dr. Nikky Man Cystine [facility] Comment on above: Performed By: #### C ALCULI #### [facility] [address] [place] [address] Dr. Nikky Man Disclaimer: Comment Normal [facility] Comment on above: Result Comment: This test was developed and its performance characteristics determined by [employer]. It has not been cleared or approved by the Food and Drug Administration. Performed By: #### C ALCULI #### [facility] [address] [place] [address] Dr. Nikky Man Dried Blood [facility] Comment on above: Performed By: #### C ALCULI #### [facility] [address] [place] [address] Dr. Nikky Man Drug or Metabolite Normal [facility] Comment on above: Performed By: #### C ALCULI #### [facility] [address] [place] [address] Dr. Nikky Man Hydroxyapatite Normal [facility] Comment on above: Performed By: #### C ALCULI #### [facility] [address] [place] [address] Dr. Nikky Man Mg NH4 PO4 (Struvite) [facility] Comment on above: Performed By: #### C ALCULI #### [facility] [address] [place] [address] Dr. Nikky Man MgHPO4 (Newberyite) [facility] Comment on above: Performed By: #### C ALCULI #### [facility] [address] [place] [address] Dr. Nikky Man Other component(s) [facility] Comment on above: Performed By: #### C ALCULI #### [facility] [address] [place] [address] Dr. Nikky Man PDF . [facility] Comment on above: Performed By: #### C ALCULI #### [facility] [address] [place] [address] Dr. Nikky Man Photo Comment Normal [facility] Comment on above: Result Comment: Phot ograph will follow under a separate cover Performed By: #### C ALCULI #### [facility] [address] [address] [address] Nikky Man Please note: Comment Normal [facility] Comment on above: Result Comment: Calc aishwarya report will follow via computer, mail or release of information clerk delivery. Performed By: #### C ALCULI #### [facility] [address] [address] [address] Nikky Man Size 3x2 [facility] Comment on above: Result Comment: Mult iple pieces received. Dimensions of the largest piece reported. Performed By: #### C ALCULI #### [facility] [address] [place] [address] Dr. Nikky Man Sodium Acid Urate Normal [facility] Comment on above: Performed By: #### C ALCULI #### [facility] [address] [address] [address] Nikky Man Source Comment [facility] Comment on above: Result Comment: Left Ureter Performed By: #### C ALCULI #### [facility] [address] [address] [address] Nikky Man Triamterene [facility] Comment on above: Performed By: #### C ALCULI #### [facility] [address] [address] [address] Nikky Man Uric Acid [facility] Comment on above: Performed By: #### C ALCULI #### [facility] [address] [address] [address] Nikky Man Uric Acid Dihydrate [facility] Comment on above: Performed By: #### C ALCULI #### [facility] [address] [address] [address] Nikky Man Weight 4 mg [facility] Comment on above: Performed By: #### C ALCULI #### [facility] [address] [address] [address] Nikky Man Xanthine [facility] Comment on above: Performed By: #### C ALCULI #### [facility] [address] [address] [address] Nikky Man XR KUB 1 VIEWon [...] by: JI CULLEN Date: 2022-06-08 16:[address] [facility] XR KUB 1 VIEWon 06-01-2022 XR [...] by: JI CULLEN Date: 2022-06-01 21:58 Normal [facility] PROTIMEon 05-25-2022 INR Coag (PPP) [Relative time] 1.01 {INR} Normal [facility] Comment on above: Performed By: #### P TT, PT #### [facility] [address] [address] [address] Nikky Man INR GUIDELINES SEE BELOW Normal [facility] Comment on above: Result Comment: ELFEGO RED INR: 2.0 - 3.0 CONDITIONS NOT LISTED BELOW 2.5 - 3.5 FOR PROSTHETIC HEART VALVE REPLACEMENT 2.5 - 3.5 RECURRENT THROMBOSIS Performed By: #### P TT, PT #### [facility] [address] [place], [place] [address] Dr. Nikky Man PT Coag (PPP) [Time] 10.9 s Normal 9.0-11.[address] [facility] Comment on above: Performed By: #### P TT, PT #### [facility] [address] [place], [place] [address] Dr. Nikky Man PTTon 05-25-2022 aPTT Coag (Bld) [Time] 27.9 s Normal 22.3-36.[address] [facility] Comment on above: Performed By: #### P TT, PT #### [facility] [address] [place], [place] [address] Dr[address] Nikky Man XR KUB 1 VIEWon [...] GEMA OTTO Date: 2022-05-25 17:12 Normal [facility] XR KUB 1 VIEWon 05-17-2022 XR [...] JI CULLEN Date: 2022-05-17 07:32 Normal [facility] CALCULI, URINARYon 2 2,8 Dihydroxyadenine Normal [facility] Comment on above: Performed By: #### C BC #### [facility] [address] [place] [address] Dr. Nikky Man Ammonium Acid Urate Normal [facility] Comment on above: Performed By: #### C BC #### [facility] [address] [address] [address] Nikky Man Bilirubin Ql (U) [facility] Comment on above: Performed By: #### C BC #### [facility] [address] [address] [address] Nikky Man Ca Oxalate Dihydrate 10 % [facility] Comment on above: Performed By: #### C BC #### [facility] [address] [address] [address] Nikky Man CaHPO4 (Brushite) [facility] Comment on above: Performed By: #### C BC #### [facility] [address] [address] [address] Nikky Man Calcium Bilirubinate [facility] Comment on above: Performed By: #### C BC #### [facility] [address] [place] [address] Dr. Nikky Man Calcium Carbonate [facility] Comment on above: Performed By: #### C BC #### [facility] [address] [address] [address] Nikky Man Calcium Oxalate Monohydrate 90 % [facility] Comment on above: Performed By: #### C BC #### [facility] [address] [address] [address] Nikky Man Calcium Palmitate [place] [facility] Comment on above: Performed By: #### C BC #### [facility] [address] [place] [address] Dr. Nikky Man Calcium Phosphate [facility] Comment on above: Performed By: #### C BC #### [facility] [address] [place] [address] Dr. Nikky Man Calcium Stearate Normal [facility] Comment on above: Performed By: #### C BC #### [facility] [address] [place] [address] Dr. Nikky Man Carbonate Apatite Normal [facility] Comment on above: Performed By: #### C BC #### [facility] [address] [address] [address] Nikky Man Cellular Material Normal [facility] Comment on above: Performed By: #### C BC #### [facility] [address] [place] [address] Dr. Nikky Man Cholesterol [facility] Comment on above: Performed By: #### C BC #### [facility] [address] [place] [address] Dr. Nikky Man Color (U) Trammell [facility] Comment on above: Performed By: #### C BC #### [facility] [address] [place] [address] Dr. Nikky Man Comment [facility] Comment on above: Performed By: #### C BC #### [facility] [address] [place] [address] Dr. Nikky Man Comment Comment [facility] Comment on above: Result Comment: Calc ulus received in liquid. Wet calculi must be dried before analysis, which delays reporting of results. Leaving calculi in liquid (such as water, saline, blood, urine) may lead to changes in composition. Performed By: #### C BC #### [facility] [address] [place] [address] Dr. Nikky Man Comment: Comment Normal [facility] Comment on above: Result Comment: Phys nicolas questions regarding Calculi Analysis contact [facility] at: [phone]. Performed By: #### C BC #### [facility] [address] [place] [address] Dr. Nikky Man Composition Comment [facility] Comment on above: Result Comment: Perc entage (Represents the % composition) Performed By: #### C BC #### [facility] [address] [place] [address] Dr. Nikky Man Cystine Normal [facility] Comment on above: Performed By: #### C BC #### [facility] [address] [place] [address] Dr. Nikky Man Disclaimer: Comment Normal [facility] Comment on above: Result Comment: This test was developed and its performance characteristics determined by [facility]. It has not been cleared or approved by the Food and Drug Administration. Performed By: #### C BC #### [facility] [address] [place] [address] Dr. Nikky Man Dried Blood [facility] Comment on above: Performed By: #### C BC #### [facility] [address] [place] [address] Dr. Nikky Man Drug or Metabolite [facility] Comment on above: Performed By: #### C BC #### [facility] [address] [place] [address] Dr. Nikky Man Hydroxyapatite [facility] Comment on above: Performed By: #### C BC #### [facility] [address] [place] [address] Dr. Nikky Man Mg NH4 PO4 (Struvite) [facility] Comment on above: Performed By: #### C BC #### [facility] [address] [place] [address] Dr. Nikky Man MgHPO4 (Newberyite) [facility] Comment on above: Performed By: #### C BC #### [facility] [address] [place] [address] Dr. Nikky Man Other component(s) [facility] Comment on above: Performed By: #### C BC #### [facility] [address] [place] [address] Dr. Nikky Man PDF . Normal [facility] Comment on above: Performed By: #### C BC #### [facility] [address] [place] [address] Dr. Nikky Man Photo Comment Normal [facility] Comment on above: Result Comment: Phot ograph will follow under a separate cover Performed By: #### C BC #### [facility] [address] [address] [address] Nikky Man Please note: Comment Normal [facility] Comment on above: Result Comment: Calc aishwarya report will follow via computer, mail or release of information clerk delivery. Performed By: #### C BC #### [facility] [address] [address] [address] Nikky Man Size 4x[address] [facility] Comment on above: Result Comment: Mult iple pieces received. Dimensions of the largest piece reported. Performed By: #### C BC #### [facility] [address] [address] [address] Nikky Man Sodium Acid Urate Normal [facility] Comment on above: Performed By: #### C BC #### [facility] [address] [address] [address] Nikky Man Source Comment [facility] Comment on above: Result Comment: Left Ureter Performed By: #### C BC #### [facility] [address] [address] [address] Nikky Man Triamterene [facility] Comment on above: Performed By: #### C BC #### [facility] [address] [address] [address] Nikky Man Uric Acid [facility] Comment on above: Performed By: #### C BC #### [facility] [address] [address] [address] Nikky Man Uric Acid Dihydrate [facility] Comment on above: Performed By: #### C BC #### [facility] [address] [address] [address] Nikky Man Weight 156 mg [facility] Comment on above: Performed By: #### C BC #### [facility] [address] [address] [address] Nikky Man Xanthine [facility] Comment on above: Performed By: #### C BC #### [facility] [address] [address] [address] Nikky Man POINT OF CARE GLUCOSEon 04-19 Glucose [Mass/Vol] 131 mg/dL Critically high 74-106 [facility] Comment on above: Performed By: #### C BC #### [facility] [address] [place] [address] Dr. Nikky Man CBC AUTO DIFFon 05-04-2022 BASO # 0.0 103/ul Normal 0.0-0.1 [facility] Comment on above: Performed By: #### C BC #### [facility] [address] [place] [address] Dr. Nikky Man Basophils/100 WBC (Bld) 0.2 % Normal 0.2-2.[address] [facility] Comment on above: Performed By: #### C BC #### [facility] [address] [place] [address] Dr. Nikky Man EO # 0.4 103/ul Normal 0.0-0.7 [facility] Comment on above: Performed By: #### C BC #### [facility] [address] [place] [address] Dr. Nikky Man Eosinophils/100 WBC (Bld) 4.8 % Normal 0.9-7.0 [facility] Comment on above: Performed By: #### C BC #### [facility] [address] [place] [address] Dr. Nikky Man Erythrocyte distribution width (RBC) [Ratio] 13.4 % Normal 11.0-15.0 [facility] Comment on above: Performed By: #### C BC #### [facility] [address] [place] [address] Dr. Nikky Man Hematocrit (Bld) [Volume fraction] 36.9 % Critically low 42.0-54.0 [facility] Comment on above: Performed By: #### C BC #### [facility] [address] [place] [address] Dr. Nikky Man Hemoglobin (Bld) [Mass/Vol] 12.2 g/dL Critically low 14.0-18.0 [facility] Comment on above: Performed By: #### C BC #### [facility] [address] [address] [address] Nikky Man IG # 0.05 10e3/ul Critically high 0.00-0.03 [facility] Comment on above: Performed By: #### C BC #### [facility] [address] [address] [address] Nikky Man IG % 0.6 % Critically high 0.0-0.5 [facility] Comment on above: Performed By: #### C BC #### [facility] [address] [address] [address] Nikky Man LYMPH # 1.8 103/ul Normal 1.2-3.[address] [facility] Comment on above: Performed By: #### C BC #### [facility] [address] [place] [address] Dr. Nikky Man Lymphocytes/100 WBC (Bld) 20.3 % Critically low 20.5-60.[address] [facility] Comment on above: Performed By: #### C BC #### [facility] [address] [place] [address] Dr. Nikky Man MANUAL DIFF REQ NO Normal [facility] Comment on above: Performed By: #### C BC #### [facility] [address] [place] [address] Dr. Nikky Man MCH (RBC) [Entitic mass] 26.6 pg Normal 25.9-34.[address] [facility] Comment on above: Performed By: #### C BC #### [facility] [address] [address] [address] Nikky Man MCHC (RBC) [Mass/Vol] 33.1 g/dL Normal 29.9-35.[address] [facility] Comment on above: Performed By: #### C BC #### [facility] [address] [place] [address] Dr. Nikky Man MCV (RBC) [Entitic vol] 80.6 fL Normal 80.0-94.[address] [facility] Comment on above: Performed By: #### C BC #### [facility] [address] [address] [address] Nikky Man MONO # 0.5 103/ul Normal 0.3-0.[address] [facility] Comment on above: Performed By: #### C BC #### [facility] [address] [place] [address] Dr. Nikky Man Monocytes/100 WBC (Bld) 5.2 % Normal 1.7-12.[address] [facility] Comment on above: Performed By: #### C BC #### [facility] [address] [place] [address] Dr. Nikky Man NEUT # 6.1 103/ul Normal 1.4-6.[address] [facility] Comment on above: Performed By: #### C BC #### [facility] [address] [place] [address] Dr. Nikky Man Neutrophils/100 WBC (Bld) 68.9 % Normal 43.0-75.[address] [facility] Comment on above: Performed By: #### C BC #### [facility] [address] [place] [address] Dr. Nikky Man Platelet mean volume (Bld) [Entitic vol] 8.9 fL Critically low 9.5-13.[address] [facility] Comment on above: Performed By: #### C BC #### [facility] [address] [place] [address] Dr. Nikky Man PLT 201 103/ul Normal 150-450 [facility] Comment on above: Performed By: #### C BC #### [facility] [address] [place] [address] Dr. Nikky Man RBC 4.58 106/ul Critically low 4.70-6.10 [facility] Comment on above: Performed By: #### C BC #### [facility] [address] [place] [address] Dr. Nikky Man WBC 8.8 103/ul Normal 4.0-11.[address] [facility] Comment on above: Performed By: #### C BC #### [facility] [address] [place] [address] Dr. Nikky Man PROF CHEM 8 (BAS METB)on Anion gap [Moles/Vol] 17.6 mmol/L Normal [facility] Comment on above: Performed By: #### C BC #### [facility] [address] [address] [address] Nikky Man Calcium [Mass/Vol] 9.0 mg/dL Normal 8.5-10.[address] [facility] Comment on above: Performed By: #### C BC #### [facility] [address] [address] [address] Nikky Man Chloride [Moles/Vol] 106 mmol/L Normal 98-107 [facility] Comment on above: Performed By: #### C BC #### [facility] [address] [place] [address] Dr. Nikky Man CO2 [Moles/Vol] 22.5 mmol/L Normal 21.0-32.0 [facility] Comment on above: Performed By: #### C BC #### [facility] [address] [address] [address] Nikky Man Creatinine [Mass/Vol] 2.34 mg/dL Critically high 0.70-1.[address] [facility] Comment on above: Performed By: #### C BC #### [facility] [address] [place] [address] Dr. Nikky Man EGFR-AF TANZANIAN 35 mL/min/1.73m2 Critically low >=60 [facility] Comment on above: Performed By: #### C BC #### [facility] [address] [address] [address] Nikky Man EGFR-NON AF TANZANIAN 29 mL/min/1.73m2 Critically low >=60 [facility] Comment on above: Performed By: #### C BC #### [facility] [address] [place] [address] Dr. Nikky Man Glucose [Mass/Vol] 123 mg/dL Critically high 74-106 [facility] Comment on above: Performed By: #### C BC #### [facility] [address] [place] [address] Dr. Nikky Man Potassium [Moles/Vol] 5.1 mmol/L Normal 3.5-5.[address] [facility] Comment on above: Performed By: #### C BC #### [facility] [address] [place] [address] Dr. Nikky Man Sodium [Moles/Vol] 141 mmol/L Normal 136-145 [facility] Comment on above: Performed By: #### C BC #### [facility] [address] [id number] [address] Nikky Man Urea nitrogen [Mass/Vol] 27.0 mg/dL Critically high 7.0-18.[address] [facility] Comment on above: Performed By: #### C BC #### [facility] [address] [place] [address] Dr. Nikky Man Urea nitrogen/Creatini ne [Mass ratio] 11.5 mg/mg Normal [facility] Comment on above: Performed By: #### C BC #### [facility] [address] [place], [place] [id number] Dr. Nikky Man XR KUB 1 VIEWon [...] GEMA OTTO Date: 2022-05-01 17:19 Normal [facility] ER URINE PROFILEon 2 Bilirubin Ql (U) Negative Normal NEGATIVE [facility] Comment on above: Performed By: #### C BC #### [facility] [address] [place], [place] [id number] Dr. Nikky Man Clarity (U) CLEAR Normal CLEAR [facility] Comment on above: Performed By: #### C BC #### [facility] [address] [address] [address] Nikky Man Color (U) LT. YELLOW Normal YELLOW [facility] Comment on above: Performed By: #### C BC #### [facility] [address] [place] [address] Dr. Nikky WEN A micrscopic examina tion will be performed if indicated. Normal [facility] Comment on above: Performed By: #### C BC #### [facility] [address] [place] [address] Dr. Nikky Man Glucose Ql (U) Negative Normal NEGATIVE [facility] Comment on above: Performed By: #### C BC #### [facility] [address] [place] [address] Dr. Nikky Man Hemoglobin Ql (U) LARGE Abnormal NEGATIVE [facility] Comment on above: Performed By: #### C BC #### [facility] [address] [place] [address] Dr. Nikky Man Ketones Ql (U) Negative Normal NEGATIVE [facility] Comment on above: Performed By: #### C BC #### [facility] [address] [place] [address] Dr. Nikky Man LEUKOCYTES Negative Normal NEGATIVE [facility] Comment on above: Performed By: #### C BC #### [facility] [address] [place] [address] Dr. Nikky Man Nitrite Ql (U) Negative Normal NEGATIVE [facility] Comment on above: Performed By: #### C BC #### [facility] [address] [place] [address] Dr. Nikky Man pH (U) 6.0 [pH] Normal 5-9 [facility] Comment on above: Performed By: #### C BC #### [facility] [address] [place] [address] Dr. Nikky Man SPEC GRAVITY 1.015 Normal 1.005-<=1.025 [facility] Comment on above: Performed By: #### C BC #### [facility] [address] [place] [address] Dr. Nikky Man UA PROTEIN TRACE Normal NEGATIVE/ TRACE [facility] Comment on above: Performed By: #### C BC #### [facility] [address] [place] [address] Dr. Nikky Man UR MICRO IND INDICATED Normal [facility] Comment on above: Performed By: #### C BC #### [facility] [address] [place] [address] Dr. Nikky Man Urobilinogen Qn (U) 0.2 {Chandni'U}/dL Normal 0.2 - 1.[address] [facility] Comment on above: Performed By: #### C BC #### [facility] [address] [place] [address] Dr. Nikky Man URINE MICROSCOPIC ONLYon BACTERIA NONE SEEN Normal NONE SEEN [facility] Comment on above: Performed By: #### C BC #### [facility] [address] [place] [address] Dr. Nikky Man Bacteria identified Cx Nom (U) NOT INDICATED Normal [facility] Comment on above: Performed By: #### C BC #### [facility] [address] [place] [address] Dr. Nikky Man CAST NONE SEEN Normal NONE SEEN [facility] Comment on above: Performed By: #### C BC #### [facility] [address] [place] [address] Dr. Nikky Man Crystals LM Nom (Urine sed) NONE SEEN Normal NONE SEEN [facility] Comment on above: Performed By: #### C BC #### [facility] [address] [place] [address] Dr. Nikky Man Epithelial cells LM Ql (Urine sed) RARE Normal NONE SEEN /RARE [facility] Comment on above: Performed By: #### C BC #### [facility] [address] [place] [address] Dr. Nikky Man MUCOUS NONE SEEN Normal NONE SEEN [facility] Comment on above: Performed By: #### C BC #### [facility] [address] [place] [address] Dr. Nikky Man RBC 20-50 Abnormal 0-2 [facility] Comment on above: Performed By: #### C BC #### [facility] [address], [place] [address] Dr. Nikky Man WBC 0-2 Abnormal NONE SEEN [facility] Comment on above: Performed By: #### C BC #### [facility] [address], [place] [address] Dr. Nikky CORRALES Miscellaneous test 1on 06-05-2019 Miscellaneous Test 1 SEE NOTE Normal [facility] Comment on above: Result Comment: Test name Result Flag Units RefIntvl ---- PCA3 by TMA - Score 5 0-24 PCA3 by TMA - Result Negative A negative result is associated with decreased likelihood of a positive biopsy for prostate cancer. INTERPRETIVE DATA: PCA3 by TMA The [employer] PCA3 assay is an in vitro nucleic acid amplification test utilizing target capture, through operator-mediated amplification, and a hybridization-protection assay for amplicon [...] history and other relevant data. Performed by [facility], [address] [place] [id number] [email or web address], Jae Marquez MD - Lab. Director Performed By: #### [id number] #### [facility] [address] [place] [address] ARUP Miscellaneous test 1on 05-29-2019 Whopper Prompt [id number] Normal [facility] Comment on above: Result Comment: Ca ected result; previously reported as pca3 [id number] on 05/28/2019 at 19:45 by V/AUT Performed By: #### [id number] #### [facility] [address] [place] [address] Urinalysis, reflex to micros copicon 11-28-2018 Bilirubin Ql (U) Negative Normal Negative [facility] Clarity (U) Clear Normal Clear [facility] Color (U) Yellow Normal Straw/[place] [facility] Glucose Ql (U) >=1000 Abnormal Negative [facility] Hemoglobin Ql (U) Negative Normal Negative [facility] Ketones Ql (U) Negative Normal Negative [facility] Leukocyte esterase Test strip Ql (U) Negative Normal Negative [facility] Nitrite Ql (U) Negative Normal Negative [facility] pH (U) 5.5 [pH] Normal 5.0-9.0 [facility] Protein Ql (U) Negative Normal Negative [facility] Specific gravity (U) [Rel density] 1.031 Normal 1.005-1.03 [facility] Urobilinogen Qn (U) 0.2 {Chandni'U}/dL Normal < 2.0 [facility] Vital Signs Date Time Vital Sign Value Performing Clinician Facility 05-05-2024 11:07-0400 Blood Pressure Location Pelon COLES [facility] 05-05-2024 11:07-0400 Body temperature 98.6 [degF] Pelon COLES [facility] 05-05-2024 11:07-0400 Diastolic blood pressure 86 mm[Hg] Pelon COLES [facility] 05-05-2024 11:07-0400 Heart rate 85 /min Pelon COLES [facility] 05-05-2024 11:07-0400 Respiratory rate 16 /min Pelon COLES [facility] 05-05-2024 11:07-0400 Systolic blood pressure 139 mm[Hg] Pelon COLES [facility] 03-25-2024 09:00-0400 Body height 177.8 cm [facility] 03-25-2024 09:00-0400 Body mass index (BMI) [Ratio] 34.1 kg/m2 [facility] 03-25-2024 09:00-0400 Body weight 107.95 kg [facility] 03-25-2024 09:00-0400 Diastolic blood pressure 84 mm[Hg] [facility] 03-25-2024 09:00-0400 Heart rate 81 /min [facility] 03-25-2024 09:00-0400 Respiratory rate 12 /min [facility] 03-25-2024 09:00-0400 Systolic blood pressure 158 mm[Hg] [facility] 01-22-2024 11:26-0500 Body height 177.8 cm [facility] 01-22-2024 11:26-0500 Body mass index (BMI) [Ratio] 34.8 kg/m2 [facility] 01-22-2024 11:26-0500 Body weight 110.22 kg [facility] 01-22-2024 11:26-0500 Diastolic blood pressure 77 mm[Hg] [facility] 01-22-2024 11:26-0500 Heart rate 78 /min [facility] 01-22-2024 11:26-0500 Respiratory rate 16 /min [facility] 01-22-2024 11:26-0500 Systolic blood pressure 160 mm[Hg] [facility] 01-10-2024 08:43-0500 Body height 177.8 cm [facility] 01-10-2024 08:43-0500 Body mass index (BMI) [Ratio] 34.2 kg/m2 [facility] 01-10-2024 08:43-0500 Body weight 108.12 kg [facility] 01-10-2024 08:43-0500 Diastolic blood pressure 76 mm[Hg] [facility] 01-10-2024 08:43-0500 Heart rate 75 /min [facility] 01-10-2024 08:43-0500 Respiratory rate 12 /min [facility] 01-10-2024 08:43-0500 Systolic blood pressure 173 mm[Hg] [facility] 12-17-2023 11:31-0500 Blood Pressure Location Pelonneela COLES [facility] 12-17-2023 11:31-0500 Diastolic blood pressure 100 mm[Hg] Pelon COLES [facility] 12-17-2023 11:31-0500 Heart rate 70 /min Pelon COLES [facility] 12-17-2023 11:31-0500 Respiratory rate 16 /min Pelon COLES [facility] 12-17-2023 11:31-0500 Systolic blood pressure 151 mm[Hg] Pelon COLES [facility] 10-29-2023 14:25-0500 Blood Pressure Location Pelon COLES [facility] 10-29-2023 14:25-0500 Diastolic blood pressure 88 mm[Hg] Pelon COLES [facility] 10-29-2023 14:25-0500 Heart rate 87 /min Pelon COLES [facility] 10-29-2023 14:25-0500 Respiratory rate 16 /min Pelon SANKET [facility] 10-29-2023 14:25-0500 Systolic blood pressure 138 mm[Hg] Pelon COLES [facility] 10-23-2023 11:30-0500 Body height 177.8 cm Sp [employer] Other [facility] 10-23-2023 11:30-0500 Body mass index (BMI) [Ratio] 32.77 kg/m2 Sp Ball Other [facility] [employer] Other 10-23-2023 11:30-0500 Body weight 103.6 kg Sp Ball Other [facility] 10-23-2023 11:30-0500 Diastolic blood pressure 89 mm[Hg] Sp Ball Other [facility] 10-23-2023 11:30-0500 Systolic blood pressure 162 mm[Hg] Sp Ball Other [facility] 10-05-2023 14:15-0500 Blood Pressure Location Duran MANL [facility] 10-05-2023 14:15-0500 Diastolic blood pressure 82 mm[Hg] Duran NILL [facility] 10-05-2023 14:15-0500 Heart rate 80 /min Duran NILL [facility] [place] 10-05-2023 14:15-0500 Respiratory rate 16 /min Duran NILL [facility] 10-05-2023 14:15-0500 Systolic blood pressure 144 mm[Hg] Duran MANL [facility] 04-24-2023 11:00-0400 Body height 177.8 cm Sp Ball Other [employer] Other 04-24-2023 11:00-0400 Body mass index (BMI) [Ratio] 34.38 kg/m2 Sp Ball Other [employer] Other 04-24-2023 11:00-0400 Body weight 108.68 kg Sp Ball Other [employer] Other 04-24-2023 11:00-0400 Diastolic blood pressure 80 mm[Hg] Sp Ball Other [employer] Other 04-24-2023 11:00-0400 Respiratory rate 12 /min Sp Ball Other [employer] Other 04-24-2023 11:00-0400 Systolic blood pressure 138 mm[Hg] Sp Ball Other [employer] Other 02-14-2023 15:15-0400 Body height 177.8 cm Alfonzo Sargent II Other [employer] Other 02-14-2023 15:15-0400 Body mass index (BMI) [Ratio] 35.15 kg/m2 Alfonzo Dejon II Other [employer] Other 02-14-2023 15:15-0400 Body weight 111.13 kg Alfonzo Sargent II Other [employer] Other 01-22-2023 11:00-0500 Body height 177.8 cm Sp Ball Other [employer] Other 01-22-2023 11:00-0500 Body mass index (BMI) [Ratio] 35.44 kg/m2 Sp Ball Other [employer] Other 01-22-2023 11:00-0500 Body weight 112.04 kg Sp Ball Other [employer] Other 01-22-2023 11:00-0500 Diastolic blood pressure 84 mm[Hg] Sp Ball Other [employer] Other 01-22-2023 11:00-0500 Respiratory rate 12 /min Sp Ball Other [employer] Other 01-22-2023 11:00-0500 Systolic blood pressure 136 mm[Hg] Sp Ball Other [employer] Other 12-18-2022 15:12-0500 Blood Pressure Location Pelon COLES [facility] 12-18-2022 15:12-0500 Diastolic blood pressure 72 mm[Hg] Pelon COLES [facility] 12-18-2022 15:12-0500 Heart rate 68 /min Pelon COLES [facility] 12-18-2022 15:12-0500 Respiratory rate 16 /min Pelon COLES [facility] 12-18-2022 15:12-0500 Systolic blood pressure 127 mm[Hg] Pelon COLES [facility] 12-14-2022 15:30-0500 Body height 177.8 cm Alfonzo Ashford II Other [employer] Other 12-14-2022 15:30-0500 Body mass index (BMI) [Ratio] 34.29 kg/m2 Alfonzo Ashford II Other [employer] Other 12-14-2022 15:30-0500 Body weight 108.41 kg Alfonzo Ashford II Other [employer] Other 08-28-2022 09:20-0400 Diastolic blood pressure 84 mm[Hg] Pacc 2 Work Phone: [facility] 08-28-2022 09:20-0400 Heart rate 72 /min Pacc 2 Work Phone: [facility] 08-28-2022 09:20-0400 Systolic blood pressure 152 mm[Hg] Pacc 2 Work Phone: [facility] 08-28-2022 09:16-0400 Body height 175.3 cm Pacc 2 Work Phone: [facility] 08-28-2022 09:16-0400 Body temperature 98.49 [degF] Pacc 2 Work Phone: [facility] 08-28-2022 09:16-0400 Body weight 105.23 kg Pacc 2 Work Phone: [facility] 08-28-2022 09:16-0400 Respiratory rate 16 /min Pacc 2 Work Phone: [facility] 08-28-2022 09:16-0400 SaO2% (BldA) [Mass fraction] 98 % Pacc 2 Work Phone: [facility] 08-11-2022 10:49-0400 Body weight 99.79 kg Noelle Vega MD Work Phone: [facility] 08-11-2022 10:49-0400 Diastolic blood pressure 89 mm[Hg] Noelle Vega MD Work Phone: [facility] 08-11-2022 10:49-0400 Heart rate 66 /min Noelle Vega MD Work Phone: [facility] 08-11-2022 10:49-0400 Systolic blood pressure 176 mm[Hg] Noelle Vega MD Work Phone: [facility] 03-13-2022 15:03-0400 Blood Pressure Location Pelon COLES [facility] 03-13-2022 15:03-0400 Diastolic blood pressure 87 mm[Hg] [facility] 03-13-2022 15:03-0400 Heart rate 78 /min Pelonneela COLES [facility] 03-13-2022 15:03-0400 Systolic blood pressure 164 mm[Hg] [facility] COLES [facility] En[facility] Encounter Date Encounter Type Care Provider Facility Start: 12-19-2024 ambulatory Pelon COLES Facili ty:[facility] [place] Start: 05-20-2024 ambulatory Pelon COLES Facili ty:[facility] Start: 05-05-2024 End: 05-05-2024 Lab Drop off Pelon COLES [facility] Start: 05-05-2024 End: 05-05-2024 ambulatory Pelon COLES Facility:CD:[id number] Start: 05-05-2024 End: 05-05-2024 Patient encounter procedure Pelon COLES [facility] Start: 03-25-2024 End: 03-25-2024 ambulatory [facility] Work Phone: Start: 03-25-2024 End: 03-25-2024 [facility] Work Phone: Start: 02-22-2024 Non-patient / Non-visit [facility] Work Phone: Start: 02-01-2024 Non-patient / Non-visit [facility] Work Phone: Start: 01-26-2024 Non-patient / Non-visit [facility] Work Phone: Start: 01-22-2024 End: 01-22-2024 Encounter for general adult medical examination without abnormal findings [facility] Start: 01-22-2024 End: 01-22-2024 Patient encounter procedure [facility] Work Phone: Start: 01-10-2024 End: 01-10-2024 ambulatory [facility] Work Phone: Start: 01-10-2024 End: 01-10-2024 Patient encounter procedure [facility] Work Phone: Start: 12-19-2023 ambulatory Pelon COLES Facili ty:[facility] Start: 12-17-2023 End: 12-17-2023 ambulatory Pelon COLES Facility: [place] Start: 12-17-2023 End: 12-17-2023 Patient encounter procedure Pelon COLES [facility] Start: 12-14-2023 ambulatory Pelon COLES Facili ty:[facility] Start: 11-28-2023 End: 11-28-2023 ambulatory Pelon COLES Facility:[facility] Start: 11-28-2023 End: 11-28-2023 Lab Drop off Pelon COLES [facility] Start: 11-27-2023 End: 11-27-2023 Patient encounter procedure Pelon COLES [facility] Start: 11-27-2023 End: 11-27-2023 ambulatory Pelon COLES Facility:[facility] Start: 11-23-2023 End: 11-23-2023 ambulatory Sp Chowdary Other [employer] Other Start: 11-23-2023 Telephone encounter Sp Chowdary [facility] Start: 11-14-2023 End: 11-14-2023 ambulatory Duran R NILL Facility: [facility] Start: 11-14-2023 End: 11-14-2023 Patient encounter procedure Duran R NILL General Surgery Nill/Said [place] Start: 11-05-2023 ambulatory Duran NILL Facility:[facility] [place] Start: 11-01-2023 End: 11-01-2023 ambulatory Sp Chowdary Other [employer] Other Start: 11-01-2023 Telephone encounter Sp Chowdary [facility] Start: 10-31-2023 End: 10-31-2023 ambulatory Duran R NILL Facility:[id number] Start: 10-29-2023 End: 10-29-2023 ambulatory Pelon COLES Facility:[facility] Start: 10-29-2023 End: 10-29-2023 Patient encounter procedure Pelon COLES [facility] Start: 10-23-2023 End: 10-23-2023 ambulatory Sp Chowdary Other [employer] Other Start: 10-23-2023 Office outpatient vi sit 25 minutes Sp Epi [facility] Start: 10-23-2023 End: 10-23-2023 Patient encounter procedure [facility] Work Phone: Start: 10-05-2023 End: 10-05-2023 ambulatory Duran R NILL Facility:[facility] Start: 10-05-2023 End: 10-05-2023 Patient encounter procedure Duran R NILL General Surgery Nill/[facility] Start: 09-11-2023 End: 09-11-2023 ambulatory Pelon Coles Facility:[facility] Start: 09-11-2023 End: 09-11-2023 ambulatory DO Sp Chowdary Work Phone: [facility] Work Phone: Start: 09-11-2023 End: 09-11-2023 Patient encounter procedure DO Sp Chowdary Work Phone: [facility] [place] Work Phone: Start: 09-02-2023 End: 09-02-2023 ambulatory pS Chowdary Other [employer] Other Start: 09-02-2023 Telephone encounter Sp Chowdary ALEX [facility] Start: 08-08-2023 End: 08-08-2023 ambulatory Sp Chowdary Other [employer] Other Start: 08-08-2023 Nursing evaluation o f patient and report Sp Chowdary [facility] Start: 07-20-2023 End: 07-20-2023 ambulatory Sp Chowdary Other [employer] Other Start: 07-20-2023 Telephone encounter Sp Chowdary FP [facility] Start: 06-18-2023 ambulatory Pelon R COLES Facili ty:[facility] Start: 06-12-2023 End: 06-12-2023 ambulatory Pelonneela COLES Facility:[facility] Start: 05-15-2023 End: 05-15-2023 ambulatory Sp Chowdary Other [employer] Other Start: 05-15-2023 Telephone encounter Sp Chowdary [facility] Start: 04-26-2023 ambulatory RADHA RIVERA . Facili ty:[facility] Start: 04-24-2023 End: 04-24-2023 ambulatory Sp Chowdary Other [employer] Other Start: 04-24-2023 Office outpatient vi sit 25 minutes Sp GARCIA [facility] Start: 04-10-2023 ambulatory NARENDRANATH LAKSHMIPATHY . Facility:[facility] Start: 03-23-2023 End: 03-24-2023 ambulatory RADHA RIVERA . Facility:[facility] Start: 03-08-2023 End: 03-08-2023 ambulatory Sp Chowdary Other [employer] Other Start: 03-08-2023 Telephone encounter Sp Marino [employer] Start: 03-06-2023 End: 03-06-2023 ambulatory NARENDRANATH LAKSHMIPATHY . Facility:[facility] Start: 02-26-2023 Encounter for genera l adult medical examination without abnormal findings NARENDRANATH LAKSHMIPATHY . [facility] Start: 02-22-2023 End: 02-23-[address] SP CHOWDARY Facility:[facility] Start: 02-22-2023 End: 02-23-2023 ambulatory NARENDRANATH LAKSHMIPATHY . Facility:[facility] Start: 02-22-2023 End: 02-23-2023 ambulatory NARENDRANATH LAKSHMIPATHY . Facility:[facility] Start: 02-22-2023 End: 02-23-2023 Encounter for general adult medical examination without abnormal findings NARENDRANATH LAKSHMIPATHY . Facility:[facility] Start: 02-14-2023 End: 02-14-2023 ambulatory Sp Chowdary [email or web address] Other Start: 02-14-2023 Office outpatient vi sit 25 minutes Alfonzo Ashford II [facility] Start: 02-05-2023 End: 02-05-2023 ambulatory Sp Chowdary Other [employer] Other Start: 02-05-2023 Telephone encounter Sp Marino [facility] Start: 01-22-2023 End: 01-22-2023 ambulatory Sp Chowdary Other [employer] Other Start: 01-22-2023 Encounter for genera l adult medical examination without abnormal findings Sp Chowdary [facility] Start: 01-22-2023 Periodic preventive med est patient 40-64yrs Sp Chowdary [facility] Start: 12-18-2022 End: 12-18-2022 Patient encounter procedure Pelon COLES [facility] [place] Start: 12-14-2022 End: 12-14-2022 ambulatory Sp Chowdary [facility] [employer] Other Start: 12-14-2022 FQHC visit new patient Alfonzo boo II [facility] Start: 12-12-2022 End: 12-12-2022 Patient encounter procedure Duran CRANDALL General Surgery Nill/S[facility] Start: 12-05-2022 End: 12-06-[address] PELON COLES . Facility: Start: 11-28-2022 Letter encounter [facility] Start: 09-27-2022 End: 09-28-[address] PELON COLES . Facility: Start: 09-26-2022 End: 09-26-2022 ambulatory NOELLE VEGA Facility:[facility] Start: 09-26-2022 End: 09-26-2022 Patient encounter procedure Noelle Vega MD Work Phone: Urology Comment on above: Nephrolithiasis (Estefania jeannie Dx); Calculus of kidney with calculus of ureter Start: 09-12-2022 Orders Only Noelle Matthew Work Phone: Urology Comment on above: Hyperkalemia (Primar y Dx) Start: 09-11-2022 End: 09-12-2022 ambulatory NOELLE VEGA Facility:[facility] Start: 08-28-2022 End: 08-28-2022 ambulatory NOELLE VEGA Facility:[facility] Start: 08-28-2022 End: 08-28-2022 Admission to establishment Pacc Av 2 Work Phone: [facility] Start: 08-28-2022 End: 08-28-2022 Preprocedural examination done [facility] 2 Work Phone: Pre Anesthesia Start: 08-28-2022 Encounter for other preprocedural examination NOELLE VEGA [facility] Start: 08-28-2022 End: 08-29-2022 ambulatory NOELLE [...] 08-28-2022 Subsequent hospital visit by physician [facility] ([facility]) Work Phone: [facility] Radiology CT Scan Comment on above: Calculus of kidney w ith calculus of ureter [N20.2] Start: 08-24-2022 Telephone encounter Noelle banuelos MD Work Phone: Urology Comment on above: Schedule Surgery Start: 08-16-2022 Telephone encounter Noelle banuelos MD Work Phone: Urology Comment on above: Other (CD from [facility] XR KUB) Start: 08-11-2022 End: 08-11-2022 ambulatory 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 [facility] Start: 05-05-2022 End: 05-05-[address] PELON COLES . Facility:[facility] Start: 05-05-2022 End: 05-05-2022 Patient encounter procedure Pelon COLES [facility] Start: 05-04-2022 End: 05-05-[address] PELON COLES . Facility:[facility] Start: 05-04-2022 End: 05-05-2022 Encounter for other preprocedural examination DR PELON COLES . Facility:[facility] Start: 05-01-2022 End: 05-02-[address] SP CHOWDARY Facility:[facility] Start: 04-21-2022 End: 04-21-[address] SP CHOWDARY Facility:[facility] Start: 03-14-2022 End: 03-14-2022 Patient encounter procedure Pelon COLES [facility] Start: 03-13-2022 End: 03-13-2022 Patient encounter procedure Pelon COLES [facility] Start: 01-19-2022 Adult health examination Rohan Chowdary Other [employer] Other Start: 02-26-2017 End: 02-27-2017 ambulatory UNKNOWN PROVIDER Facility:[facility] Procedures Date Procedure Procedure Detail Performing Clinician Start: 11-27-2023 Transrectal biopsy of prostate using ultrasound guidance Pelon SANKET Start: 11-27-2023 Transurethral insertion of prostatic urethral [...] SPEC IMENOrdering Facility: [facility] Address: [address] [place] [address] Performed By: #### T [id number] ####[facility] [id number] [address] OF [facility] Start: 08-28-2022 Ct abdomen & pelvis w/o contrast material Noelle Vega MD Work Phone: Start: 08-11-2022 Urnls dip stick/tablet rgnt auto w/o microscopy Noelle Vega MD Work Phone: Start: 08-30-2021 [facility] Pelonneela COLES Start: 08-24-2020 Cystoscopy [facility]onne[facility] COLES Start: 12-16-2019 Cystoscopy [facility]onne[facility] COLES Start: 09-19-2019 Colonoscopy Duran CRANDALL Start: 10-19-2017 Colonoscopy Duran CRANDALL Start: 02-26-2017 [...] CANCER SCREENING DISCUSSION PROSTATE CANCER SCREENING DISCUSSION [facility] Start: 02-26-2023 Hemoglobin A1c/Hemoglobin.total in Blood HBA1C [facility] Start: 09-19-2022 End: 11-19-2022 Basic metabolic 2000 panel - Serum or Plasma BASIC METABOLIC PNL Lab Routine Hyperkalemia Expected: 09/19/2022 (Approximate), Expires: 11/19/2022 [facility] Work Phone: Comment on above: Expected: 09/19/2022 (Approximate), Expi res: 11/19/2022 Start: 08-28-2022 End: 10-28-2022 aPTT in Platelet poor plasma by Coagulation assay ACTIVATED PTT Lab Routine Nephrolithiasis Gross hematuria Expected: 08/28/2022, Expires: 10/28/2022 [facility] Work Phone: Comment on above: Expected: 08/28/2022, Expires: Start: 08-28-2022 End: 10-28-2022 Bacteria identified in Urine by Culture URINE CULTURE Microbiology Routine Nephrolithiasis Expected: 08/28/2022, Expires: 10/28/2022 [facility] Work Phone: Comment on above: Expected: 08/28/2022, Expires: 2 Start: 08-28-2022 End: 10-28-2022 CBC W Auto Differential panel - Blood CBC + DIFF Lab Routine Nephrolithiasis Expected: 08/28/2022, Expires: 10/28/2022 [facility] Work Phone: Comment on above: Expected: 08/28/2022, Expires: 2 Start: 08-28-2022 End: 10-28-2022 Comprehensive metabolic 2000 panel - Serum or Plasma COMP METABOLIC PANEL Lab Routine Nephrolithiasis Expected: 08/28/2022, Expires: 10/28/2022 [facility] Work Phone: Comment on above: Expected: 08/28/2022, Expires: 2 Start: 08-28-2022 End: 10-28-2022 CONFIRM BLOOD TYPE CONFIRM BLOOD TYPE Blood Bank Routine Pre-op evaluation Expected: 08/28/2022, Expires: 10/28/2022 [facility] Work Phone: Comment on above: Expected: 08/28/2022, Expires: 2 Start: 08-28-2022 End: 10-28-2022 Hemoglobin A1c in Blood [facility] Work Phone: Comment on above: Expected: 08/28/2022, Expires: 2 Start: 08-28-2022 End: 10-28-2022 PT panel - Platelet poor plasma by Coagulation assay PROTHROMBIN TIME/PT Lab Routine Nephrolithiasis Gross hematuria Expected: 08/28/2022, Expires: 10/28/2022 [facility] Work Phone: Comment on above: Expected: 08/28/2022, Expires: 2 Start: 08-28-2022 End: 10-28-2022 TYPE AND SCREEN,30 DAY TYPE AND SCREEN,30 DAY Blood Bank Routine Nephrolithiasis Expected: 08/28/2022, Expires: 10/28/2022 [facility] Work Phone: Comment on above: Expected: 08/28/2022, Expires: 2 Start: 08-19-2022 Influenza vaccination Influenza Vaccine (#1) [facility] Start: 08-11-2022 End: 10-11-2022 25-hydroxyvitamin D3 [Mass/volume] in Serum or Plasma VITAMIN D 25 HYDROXY Lab Routine Nephrolithiasis Secondary hyperparathyroidism of renal origin (HCC) Expected: 08/11/2022, Expires: 10/11/2022 [facility] Work Phone: Comment on above: Expected: 08/11/2022, Expires: 2 Start: 08-11-2022 End: 10-11-2022 Parathyrin.intact [Mass/volume] in Serum or Plasma PTH INTACT BLD Lab Routine Nephrolithiasis Expected: 08/11/2022, Expires: 10/11/2022 [facility] Work Phone: Comment on above: Expected: 08/11/2022, Expires: 2 Start: 08-11-2022 End: 10-11-2022 Urinalysis complete panel - Urine URINALYSIS, WITH MICROSCOPIC Lab Routine Nephrolithiasis Expected: 08/11/2022, Expires: 10/11/2022 [facility] Work Phone: Comment on above: Expected: 08/11/2022, Expires: 2 Start: 11-19-2021 DEPRESSION ASSESSMENT DEPRESSION ASSESSMENT [facility] Start: 11-19-2017 Annual wellness visit Annual Wellness Visit ([id number]) [facility] Start: 2017 PROSTATE CANCER SCREENING DISCUSSION PROSTATE CANCER SCREENING DISCUSSION [facility] Start: 02-22-2012 Measurement of occult blood in single stool specimen [facility] Start: 02-22-2012 Screening for malignant neoplasm of colon [facility] Start: 02-22-2012 Shingles (RZV) Vaccine (1 of 2) Shingles (RZV) Vaccine (1 of 2) [facility] Start: 02-22-2012 SHINGRIX VACCINE (1 of 2) SHINGRIX VACCINE (1 of 2) [facility] Start: 2007 COLOGUARD (FIT-DNA) COLOGUARD (FIT-DNA) [facility] Start: 2007 Colonoscopy COLONOSCOPY [facility] Start: 2007 COLORECTAL CANCER SCREENING COLORECTAL CANCER SCREENING [facility] Start: [address] COLONOGRAPHY [facility] Start: 2007 DIABETES SCREEN DIABETES SCREEN [facility] Start: 2007 FECAL OCCULT BLOOD FECAL OCCULT BLOOD [facility] Start: 2007 SIGMOIDOSCOPY SIGMOIDOSCOPY [facility] Start: 1997 Lipid panel Cholesterol [facility] Start: 1997 LIPID SCREEN LIPID SCREEN [facility] Start: 1981 Urine microalbumin profile DTAP,TDAP,TD (1 - Tdap) [facility] Start: 02-22-1980 ANNUAL PCP TEAM CHRONIC DISEASE VISIT ANNUAL PCP TEAM CHRONIC DISEASE VISIT [facility] Start: 02-22-1980 BP CONTROLLED (<130/80) BP CONTROLLED (<130/80) [facility] Start: 02-22-1980 Hepatitis B surface antibody level LDL CHOLESTEROL [facility] Start: 02-22-1980 Hepatitis C screening Hepatitis C Antibody [facility] Start: 02-22-1980 HEPATITIS C SCREENING HEPATITIS C SCREENING [facility] Start: 02-22-1980 HIV SCREENING HIV SCREENING [facility] Start: 02-22-1980 Tetanus + diphtheria + acellular pertussis vaccine (product) Tdap Booster [facility] Start: 1977 HIV screening HIV Test [facility] Start: 1974 Adult depression screening assessment DEPRESSION SCREENING [facility] Start: 02-22-1972 3 comp foot exam completed DIABETIC FOOT EXAM [facility] Start: 02-22-1972 Hepatitis B screening URINE ALBUMIN:CREATININE RATIO [facility] Start: 02-22-1972 Hepatitis C antibody, confirmatory test DILATED RETINAL EXAM [facility] Start: 02-22-1968 PNEUMOCOCCAL (1 - PCV) PNEUMOCOCCAL (1 - PCV) [facility] Start: 1967 Hemoglobin A1c/Hemoglobin.total in Blood HBA1C [facility] Start: 1962 COVID-19 Vaccine (#1) COVID-19 Vaccine (#1) [facility] Start: 1962 Screening for malignant neoplasm of colon Colonoscopy [facility] 2000 panel - Serum or Plasma [facility] End: 09-10-2023 Ct abdomen & pelvis w/o contrast material CT FLANK WO IVCON Radiology Routine Calculus of kidney with calculus of ureter 1 Occurrences starting 08/11/2022 until 09/10/2023 [facility] Work Phone: Comment on above: 1 Occurrences starting 08/11/2022 until 09/10/2023 [facility] Immunizations Immunization Date Immunization Notes Care Provider Fa cility 08-08-2023 influenza, injectabl e, quadrivalent, preservative free Sp Chowdary Other [facility] 07-20-2023 influenza virus vaccine, unspecified formulation Duran CRANDALL [facility] 08-13-2022 SARS-CoV-2 (COVID-19 ) [id number] Duran CRANDALL [facility] 07-26-2022 influenza virus vaccine, split virus (incl. purified surface antigen) Sp Chowdary Other [employer] Other 07-26-2022 influenza virus vaccine, unspecified formulation Duran CRANDALL [facility] 10-23-2021 COVID-19 Vaccine Pfi zer - Documentation Purposes Only Sp Chowdary Other [facility] 08-11-2021 influenza virus vaccine, split virus (incl. purified surface antigen) Sp Chowdary Other [employer] Other 08-11-2021 influenza virus vaccine, unspecified formulation [facility] 08-10-2021 influenza virus vaccine, unspecified formulation Pelon COLES [facility] 04-15-2021 SARS-CoV-2 (COVID-19 ) Ad26 vaccine, recombinant Pelon COLES [facility] 03-25-2021 SARS-CoV-2 (COVID-19 ) Ad26 vaccine, recombinant Pelon COLES [facility] 02-15-2021 SARS-CoV-2 (COVID-19 ) mRNA BNT-162b2 vax [employer] [facility] 01-25-2021 SARS-CoV-2 (COVID-19 ) mRNA BNT-162b2 vax [facility] 01-13-2021 tetanus and diphther ia toxoids, adsorbed, preservative free, for adult use (5 Lf of tetanus toxoid and 2 Lf of diphtheria toxoid) Sp Chowdary Other [facility] 07-20-2020 influenza virus vaccine, split virus (incl. purified surface antigen) Sp Chowdary Other [employer] Other 07-20-2020 influenza virus vaccine, unspecified formulation [facility] 08-18-2019 influenza virus vaccine, split virus (incl. purified surface antigen) Sp Chowdary Other [email or web address] Other 08-18-2019 influenza virus vaccine, unspecified formulation [facility] 07-20-2019 influenza virus vaccine, live, attenuated, for intranasal use Pelon COLES [facility] 08-26-2018 influenza virus vaccine, split virus (incl. purified surface antigen) Sp Chowdary Other [employer] Other 08-26-2018 influenza virus vaccine, unspecified formulation Pelon COLES [facility] 08-31-2017 influenza virus vaccine, unspecified formulation Pelon COLES [facility] 08-31-2017 tetanus and diphther ia toxoids, adsorbed, preservative free, for adult use (5 Lf of tetanus toxoid and 2 Lf of diphtheria toxoid) Sp Chowdary Other [facility] 10-02-2016 pneumococcal conjuga te vaccine, 13 valent Sp Chowdary Other [facility] 10-02-2016 pneumococcal Conjuga te, unspecified formulation; Translations: [Need for prophylactic vaccination against Streptococcus pneumoniae (pneumococcus)] Sp Chowdary Other [facility] [employer] Other 07-25-2016 tetanus and diphther ia toxoids, adsorbed, preservative free, for adult use (5 Lf of tetanus toxoid and 2 Lf of diphtheria toxoid) Sp Chowdary Other [facility] 07-21-2015 tetanus and diphther ia toxoids, adsorbed, preservative free, for adult use (5 Lf of tetanus toxoid and 2 Lf of diphtheria toxoid) Sp Chowdary Other [facility] 06-21-2015 pneumococcal polysaccharide vaccine, 23 valent Sp Chowdary Other [facility] 07-30-2013 tetanus and diphther ia toxoids, adsorbed, preservative free, for adult use (5 Lf of tetanus toxoid and 2 Lf of diphtheria toxoid) Sp Chowdary Other [facility] 08-01-2012 tetanus and diphther ia toxoids, adsorbed, preservative free, for adult use (5 Lf of tetanus toxoid and 2 Lf of diphtheria toxoid) Sp Chowdary Other [facility] 07-30-2008 diphtheria, tetanus toxoids and acellular pertussis vaccine, unspecified formulation Sp Chowdary Other [facility] 10-02-2001 Td(adult) unspecifie d formulation Pelon COLES [facility] Payers Date Payer Category Payer Self-pay [id number] 2019 Private Health Insurance [facility] CHOICE PLUS [id number] 2019-Present [phone] [address] [place] [address] HMO [id number] 2016 Medicare [id number] 2001 Medicare [id number] [id number] 1962 Unknown [id number] 2.16.840.1.023848.3.579. 2.732 1962 Unknown [id number] 2.16.840.1.944208.3.579. 2.593 1962 Unknown [id number] 2.16.840.1.463479.3.579. 2.593 1962 Unknown [id number] 2.16.840.1.812747.3.579. 2.593 1962 Unknown [id number] 2.16.840.1.944047.3.579. 2.593 1962 Unknown [id number] 2.16.840.1.294314.3.579. 2.593 1962 Unknown [id number] 2.16.840.1.566047.3.579. 2.593 1962 Unknown [id number] 2.16.840.1.857951.3.579. 2.593 1962 Unknown [id number] 2.16.840.1.637296.3.579. 2.593 1962 Unknown [id number] 2.16.840.1.813381.3.579. 2.593 1962 Unknown [id number] 2.16.840.1.645321.3.579. 2.593 1962 Unknown [id number] 2.16.840.1.526504.3.579. 2.593 1962 Unknown [id number] 2.16.840.1.619047.3.579. 2.593 1962 Unknown [id number] 2.16.840.1.279586.3.579. 2.593 1962 Unknown [id number] 2.16.840.1.805262.3.579. 2.593 1962 Unknown [id number] 2.16.840.1.768742.3.579. 2.593 1962 Unknown [id number] 2.16.840.1.508919.3.579. 2.593 1962 Unknown [id number] 2.16.840.1.714685.3.579. 2.593 1962 Unknown [id number] 2.16.840.1.870752.3.579. 2.593 1962 Unknown [id number] 2.16.840.1.853861.3.579. 2.593 1962 Unknown [id number] 2.16.840.1.915050.3.579. 2.593 1962 Unknown [id number] 2.16.840.1.029689.3.579. 2.593 1962 Unknown [id number] 2.16.840.1.163843.3.579. 2.727 1962 Unknown [id number] 2.16.840.1.865290.3.579. 2.727 1962 Unknown [id number] 2.16.840.1.469169.3.579. 2.727 1962 Unknown [id number] 2.16.840.1.430563.3.579. 2. 1962 Unknown [id number] 2.16.840.1.919633.3.579. 2. 1962 Unknown [id number] 2.16.840.1.412554.3.579. 2. 1962 Unknown [id number] 2.16.840.1.061580.3.579. 2. 1962 Unknown [id number] 2.16.840.1.647161.3.579. 2. 1962 Unknown [id number] 2.16.840.1.667748.3.579. 2. 1962 Unknown [id number] 2.16.840.1.432621.3.579. 2. 1962 Unknown [id number] 2.16.840.1.494050.3.579. 2. 1962 Unknown [id number] 2.16.840.1.017515.3.579. 2. 1962 Unknown [id number] 2.16.840.1.085817.3.579. 2 1962 Unknown [id number] 2.16.840.1.244828.3.579. 2. 1962 Unknown [id number] 2.16.840.1.592945.3.579. 2. 1962 Unknown [id number] 2.16.840.1.943611.3.579. 2.727 1959 Medicare [id number] 1959 Unknown [id number] Private Health Insurance [facility] [id number] Unknown [employer] [id number] Unknown [id number] 2.16.840.1.483457.3.579. 2.531 Unknown [id number] 2.16.840.1.143563.3.579. 2.531 Unknown [id number] 2.16.840.1.732326.3.579. 2.531 Social History Date Type Detail Facility Start: 03-13-2022 End: 05-05-2024 Tobacco smoking status Never smoked tobacco (finding) [facility] Tobacco smoking status Never [facility] Sex Assigned At Male [facility] Tobacco smoking status AKIS Tobacco smoking consumption unknown [facility] Start: 1960 Sex Assigned At [facility] Start: 08-04-2022 End: 09-26-2022 Exposure to SARS-CoV-2 (event) Not sure [facility] History of tobacco use Passive smoker [facility] Start: 08-28-2022 Tobacco use and exposure Smokeless tobacco non-user [facility] Start: 08-28-2022 End: 09-11-2022 Alcohol intake Ex-drinker (finding) [facility] Start: 1960 Sex Assigned At Male F [facility] Medical Equipment Procedure Code Equipment Code Equipment Origin al Text Equipment Identifier Dates Stent Inlay Opti ma 7r [id number] Start: 09-11-2022 Insulin U-500 Syringe-Needle (Bd Insulin Syringe U-500) 1/2 mL 31 gauge x 15/64 syringe Start: 01-08-2024 Insulin U-500 Syringe-Needle (Bd Insulin Syringe U-500) 1/2 mL 31 gauge x 15/64 syringe Start: 01-08-2024 End: 01-10-2024 Insulin U-500 Syringe-Needle (Bd Insulin Syringe U-500) 1/2 mL 31 gauge x 15/64 syringe Start: 01-10-2024 End: 03-25-2024 Functional Status Date Assessment Result Facility 05-05-2024 Functional Status N/A [facility] 12-17-2023 Functional Status N/A [facility] 10-29-2023 Functional Status N/A [facility] 10-05-2023 Functional Status N/A [facility] [place] 12-18-2022 Functional Status N/A [facility] Clinical Notes 03-13-2022 to 05-05-2024 Note Date & Type Note Facility 05-05-2024 Hospital Discharg e instructions Patient Education 05/05/2024 12:19:41 Prostatitis Prostatitis Prostatitis is swelling or inflammation of the prostate gland, also called the prostate. This gland is about 1.5 inches wide and 1 inch high, and it is involved in making semen. The prostate is located below a man's bladder, in front of the rectum. There are four types of prostatitis: Chronic prostatitis (CP), also called chronic pelvic pain syndrome (CPPS). This is the most common type of prostatitis. It is associated with increased muscle tone in the area between the hip bones (pelvic area), around the prostate. This type is also known as a pelvic floor disorder. Chronic bacterial prostatitis. This type usually results from an acute bacterial infection in the prostate gland that keeps coming back or has not been treated properly. The symptoms are less severe than those caused by acute bacterial prostatitis, which lasts a shorter time. Asymptomatic inflammatory prostatitis. This type does not have symptoms and does not need treatment. This is diagnosed when tests are done for other disorders of the urinary tract or reproductive tract. Acute bacterial prostatitis. This type starts quickly and results from an acute bacterial infection in the prostate gland. It is usually associated with a bladder infection, high fever, and chills. This is the least common type of prostatitis. What are the causes? Bacterial prostatitis is caused by an infection from bacteria. Chronic nonbacterial prostatitis may be caused by: Factors related to the nervous system. This system includes thebrain, spinal cord, and nerves. An autoimmune response. This happens when the body's disease-fighting system attacks healthy tissue in the body by mistake. Psychological factors. These have to do with how the mind works. The causes of the other types of prostatitis are usually not known. What are the signs or symptoms? Symptoms of this condition depend on the type of prostatitis you have. Acute bacterial prostatitis Symptoms may include: Pain or burning during urination. Frequent and sudden urges to urinate. Trouble starting to urinate. Fever. Chills. Pain in your muscles or joints, lower back, or lower abdomen. Other types of prostatitis Symptoms may include: Sudden urges to urinate, or urinating often. Trouble starting to urinate. Weak urine stream. Dribbling after urination. Discharge coming from the penis. Pain in the testicles, the penis, or the tip of the penis. Pain in the area in front of the rectum and below the scrotum (perineum). Pain when ejaculating. How is this diagnosed? This condition may be diagnosed based on: A physical and medical exam. A digital rectal exam. For this, the health care provider may use a finger to feel the prostate. A urine test to check for bacteria. A semen sample or blood tests. Ultrasound. Urodynamic tests to check how your body handles urine. Cystoscopy to look inside your bladder or inside the part of your body that drains urine from the bladder (urethra). How is this treated? Treatment for this condition depends on the type of prostatitis. Treatment may involve: Medicines to relieve pain or inflammation, or to help relax your muscles. Physical therapy. Heat therapy. Biofeedback. These techniques help you control certain body functions. Relaxation exercises. Antibiotic medicine, if your condition is caused by bacteria. Sitz baths. These warm water baths help to relax your pelvic floor muscles, which helps to relieve pressure on the prostate. Follow these instructions at home: Medicines Take iloi-flp-amuhtwl and prescription medicines only as told by your health care provider. If you were prescribed an antibiotic medicine, take it as told by your health care provider. Do not stop using the antibiotic even if you start to feel better. Managing pain and swelling Take sitz baths as directed by your health care provider. For a sitz bath, sit in warm water that is deep enough to cover your hips and buttocks. If directed, apply heat to the affected area as often as told by your health care provider. Use the heat source that your health care provider recommends, such as a moist heat pack or a heating pad. ?Place a towel between your skin and the heat source. ?Leave the heat on for 20 30 minutes. ?Remove the heat if your skin turns bright red. This is especially important if you are unable to feel pain, heat, or cold. You may have a greater risk of getting burned. General instructions Do exercises as told by your health care provider, if you were prescribed physical therapy, biofeedback, or relaxation exercises. Keep all follow-up visits as told by your health care provider. This is important. Where to find more information National [employer] of [employer]est[employer] Kid[employer]: https://www.niddk.nih.gov Contact a health care provider if: Your symptoms get worse. You have a fever. Get help right away if: You have chills. You feel light-headed or feel like you may faint. You cannot urinate. You have blood or blood clots in your urine. Summary Prostatitis is swelling or inflammation of the prostate gland. Treatment for this condition depends on the type of prostatitis. Take dqpy-vmk-iazomqb and prescription medicines only as told by your health care provider. Get help right away of you have chills, feel light-headed, feel like you may faint, cannot urinate, or have blood or blood clots in your urine. This information is not intended to replace advice given to you by your health care provider. Make sure you discuss any questions you have with your health care provider. Document Revised: 12/10/2020 Document Reviewed: 12/10/2020 Elsevier Patient Education 2022 [employer]. Follow Up Care 05/05/2024 10:36:21 With:SANKET PRECIADO, Pelon Mujica, URL Address: [facility] [address] , [place] [address]- When: Unknown [facility] 12-17-2023 Hospital Discharg e instructions Patient Education [...] Follow these instructions at home: Medicines Take ykxj-llr-lihvviv and prescription medicines only as told by [...] provider. Document Revised: 02/01/2022 Document Reviewed: 02/01/2022 [employer] Patient Education 2022 [employer]. Follow Up Care 12/13/2023 11:10:14 With:SANKET PRECIADO, Pelon Mujica, URL Address: [facility] [address] , [place] [address] [phone] When: Unknown Comments:1 yr w/ PSA and KUB [facility] 11-23-2023 Evaluation note Encounter Date Diagnosis Assessment [...] 130 Decrease ISS to avoid hypoglycemic episodes [employer] Other 12-14-2023 Evaluation note* Encounter Date Diagnosis Assessment Notes Treatment Notes Treatment Clinical Notes Oct, Type 2 diabetes mellitus with hyperglycemia (ICD-10 - E11.65) [facility] [employer] Other 12-11-2023 Hospital Discharge instructions Follow Up Care 10/29/2023 11:16:58 With:SANKET PRECIADO, Pelon Mujica, URL Address: [facility] [address], [place] [address]- When: Unknown Comments:Scheduled for TRUS/bx on 11/27/23. [facility] 12-05-2023 Evaluation note* Encounter Date Diagnosis [...] use, the patient reduces the risk for MS, CVA, HTN, cardiac dysrhythmias and sudden cardiac [...] active. No change in medical therapy Oct, nursing home (current) use of insulin (ICD-10 - Z79.4) [employer] Other 11-17-2023 NoteChief Complaint consultation for anemia [...] tab(s), Oral, As Direct (more content not included)...[facility] Comment: Electronically Signed By: KARLEY PRECIADO, Duran Quiñones\Date and Time Signed: 10/05/23 14:45 [id number] Hospital Discharge instructions Follow Up Care 10/02/2023 11:36:47 With:SANKET PRECIADO, Pelon Mujica, URL Address: [facility] [address], [place] [address]- [phone] When: Unknown [facility] Meghann 09-01-2023 Evaluation note* Encounter Date Diagnosis Assessment Notes Treatment Notes Treatment Clinical Notes Jul, Controlled type 2 diabetes mellitus with hyperglycemia, without long-term current use of insulin (ICD-10 - E11.65) [employer] Other 07-25-2023 Note [id number]:127[facility] 06-12-2023 NoteCustom Cystoscopy ? Voiding after the [...] if you have a fever over 100 degrees.[facility] 04-24-2023 Evaluation note* Encounter Date Diagnosis Assessment [...] use, the patient reduces the risk for MS, CVA, HTN, cardiac dysrhythmias and sudden cardiac [...] E11.3393) Control BS and close f/u w/ web application dev specialist Apr, Hyperlipidemia, mixe d (ICD-10 - [...] [BMI ] 34.0-34.9, adult (ICD-10 - Z68.34) [employer] Other 04-06-2023 NoteCONSULTATION CONSULTATION DATE: 02/22/2023 TO: [...] our patients to inform us about any tgcg-ril-zbhqqra medications or herbal remedies/nutritional supplements/alternative remedies. 2. [...] treatment options with their primary care provider.[facility] Evaluation note * Encounter Date Diagnosis Assessment [...] move forward with anything in the future. [employer] Other 03-06-2023 Evaluation note* Encounter Date Diagnosis [...] is down from 13 - f/u Urology [employer] Other 01-30-2023 Hospital Discharge instructions Patient Education [...] urethra. Follow these instructions at home: Take uutu-qtd-uvqgidj and prescription medicines only as told by [...] 11/05/2006 Document Revised: 09/30/2019 Document Reviewed: 12/10/2017 iCreate Patient Education 2020 [employer]. Follow Up Care 11/30/2022 15:02:18 With:SANKET PRECIADO, SMITH Newsome Address: [facility] [address], [place] [address]- [facility]: [facility]* Encounter Date Diagnosis [...] does have some posttraumatic osteoarthritis and is gtig-sc-ejuf in the medial compartment. He has had [...] 3 months to check on his progress. [employer] Other 11-08-2022 NoteHNO ID: [id number] Author: Noelle Vega MD Service: ? Author [...] patient: Yes Procedure confirmed with physician and logistics support: Yes Sign In: History and Physical [...] urine metabolic studies if indicated. Noelle Vega MDMedical Center Of Western [id number] Nurse Note* Arlene Miguel Ma - 09/26/2022 [...] Education Session: None Instruction Provided To: Patient Junior Administrative Assistant Present: not applicable Discipline: Nursing Learning Topic: SURVIVAL SKILLS: Complication Prevention Symptom Management Patient Evaluation: Verbalizes understanding: Yes Supplemental Material Given: Written Material Instructed By Arlene Miguel Ma In Department Urology . documented in this encounterPaulding [facility] Hospital11-08-2022 History of Present illness Narrative* Noelle [...] patient: Yes Procedure confirmed with physician and logistics support: Yes Sign In: History and Physical [...] indicated. Noelle Vega MD documented in this encounterPaulding County Hospital10-25-2022 NoteHNO ID: [id number] Author: Flor Sahu PA-C Service: Hospital Medicine Author Type: Physician Recreation Therapy Aides Teacher Type: Plan of Care Filed: 09/12/2022 12:58 [...] Lopez DATE: September 12, 2022 TIME: 12:57 [facility] [id number] NoteHNO ID: [id number] Author: GUERA Granados Service: Care Management Author Type: Time Study Analyst Type: Care Mgt Initial Assessment Filed: 09/12/2022 11:00 AM Note Text: 10:58 AM CARE MANAGEMENT: ASSESSMENT AND DISCHARGE PLAN SERVICE DATE: September 12, 2022 SERVICE TIME: 10:59 AM PRIMARY CARE PHYSICIAN: Sp Chowdary DO Primary Contact: Extended Emergency Contact Information Primary Emergency Contact: Svitlana Lpoez [place] Mobile Relation: Spouse ADMISSION STATUS: Extended Recovery Insurance Provider: [facility] CHOICE PLUS NEEDS PRIOR TO DISCHARGE Needs Prior to Discharge: To Be Determined;Pharmacy Bedside Delivery;Discharge Transportation POTENTIAL TRANSITION PLANS Home Based on clinical judgement, Care Management will address the following needs: No transitional/discharge planning needs at this time Patient's perception of need for this admission: kidney stone ADVANCE DIRECTIVES Current Advance Directive: None Roll Off Driver Attempted to Assist with AD Completion: Yes [...] discharge within 30 days: No PATIENT SCREEN Patient/Financial Services Agent Stated Goals: To have reduction in pain;To [...] at this time. FREEDOM OF CHOICE EXPLAINED: [place] of Choice Given: No Reason Not Given: No placements necessary Are you interested in bedside delivery of your medications? Yes ASSESSMENT AND PLAN: Mr Lopez reports his will transport him home to [facility] at discharge. He has no anticipated transitional care needs for discharge. SIGNATURE: GUERA Granados PATIENT NAME: Dat Lopez DATE: September 12, 2022 TIME: 10:58 AM CONTACT #: [id number] [id number] NoteHNO ID: [id number] Author: Valdo Mcghee MD Service: Urology Author Type: Resident Type: Progress Notes Filed: 09/12/2022 10:45 AM Note Text: [facility] UROLOGY PROGRESS NOTE [...] Vega. Valdo Mcghee MD PGY-5, Urology Pager: [phone] 10:45 AM 09/12/2022 Interval/daily plan: Doing well. [...] Vega. Valdo Mcghee MD PGY-5, Urology Pager: [phone] After 1800 and on weekends please page [phone] for assistance. SUBJECTIVE -Patient doing well -Pain: [...] -- 1.67* GLUC -- -- -- 214* [facility]10-24-2022 NoteHNO ID: [id number] Author: Noelle Vega MD Service: Urology Author [...] infusion 100 mL/hr INTRAVENOUS CONTINUOUS phenol 1 Dawn (CHLORASEPTIC) 1 Dawn MUCOUS MEMBRANE (TOPICAL MOUTH AND THROAT) q [...] monitor - KUNAL - home regimen. - Cali's Danlos - careful movement - Discharge teaching [...] September 11, 2022 4:19 PM PLEASE CONTACT SPANISH SPEAKING NANNY OVERNIGHT IF ANY QUESTIONSCastleview HospitalLhtjgnmb42-09-4376 NoteHNO ID: [id number] Author: RT Anisha(R) Service: Radiology Author Type: [...] IV DATA: Not applicable SIGNED BY: RT Anisha(R) September 11, 2022 11:55 AMCastleview HospitalZhtuucfu08-01-8814 NoteHNO ID: [id number] Author: Caroline Larios APRN.AUTO BODY BUILDER APPRENTICE Service: ? Author Type: Nurse Mate Ship Type: Anesthesia Procedure Notes Filed: 09/11/2022 7:58 AM Note Text: ANESTHESIOLOGY PROCEDURE NOTE Airway General Information Procedure Start Time/Medication Administration: 09/11/2022 7:40 AM Patient location during procedure: OR Staffing Anesthesiologist: Melisa Rangel MD AUTO BODY BUILDER APPRENTICE: Caroline Larios APRN.AUTO BODY BUILDER APPRENTICE Performed by: VIJAY Indications and Patient Condition [...] 1 Airway not difficult SIGNATURE: Caroline Larios APRN.AUTO BODY BUILDER APPRENTICE PATIENT NAME: Dat Lopez DATE: September 11, 2022 TIME: 7:57 AM CSN: [id number] NoteHNO ID: [id number] Author: ANASTASIIA Rodriguez Service: Radiology Author Type: [...] BY: ANASTASIIA RODRIGUEZ August 28, 2022 7:11 AMCastleview HospitalMreczdlr15-21-8795 History and physical note* Mechelle Burnett PA-C [...] Prior to Admission medications as of 08/28/22 0974 Medication Sig Last Dose Taking metFORMIN (GLUCOPHAGE) [...] fevers. Neuro: No history of TIA's, stroke, PERFORMANCE IMPROVEMENT COORDINATOR tumor, impaired sensorium, hemiplegia, paraplegia or quadraplegia. No neurological symptoms or problems. Respiratory: No history of current cough or dyspnea, or pneumonia in the past 6 weeks. No history of respiratory/pulmonary symptoms or problems. Cardiovascular: +HTN, HLD, POTS- no recent episodes Negative for Recent MS, Angina, Chest Pain, CHF, DVT/PE GI: No [...] 2022 TIME: 9:57 AM documented in this encounterPaulding County Hospital10-10-2022 History of Present illness Narrative* ANASTASIIA [...] 28, 2022 7:11 AM documented in this encounterPaulding County Hospital10-07-2022 Miscellaneous Notes* Telephone Encounter - Eddie Freed [facility] - 08/25/2022 4:35 PM EDT Patient scheduled for [facility] for PERCUTANEOUS NEPHROLITHOTOMY [2747] - Kidney [...] understanding. * Telephone Encounter - Eddie Freed [facility] - 08/24/2022 3:52 PM EDT Called patient to review preop appts and instructions. Unable to leave message, no vm available. documented in this [facility]10-06-2022 Instructions* Patient Instructions* Mechelle Burnett PA-C - 08/24/2022 12:52 PM EDT PATIENT PREOPERATIVE INSTRUCTIONS Noelle Vega MD has scheduled you for your procedure at this surgery center: [facility]: [phone] --[address] [place] [address]. Please enter through the entrance closest to [...] Procedures: - YOU MUST HAVE A RESPONSIBLE PLASTIC SURGEON TAKE YOU HOME. A PRODUCT DESIGNER OR WEB CONSULTANT CANNOT BE MADE A RESPONSIBLE PLASTIC SURGEON. - We recommend that a responsible person stays with you overnight to take care of you. - You cannot stay in a hotel alone after outpatient surgery. You will not be permitted to have yoursurgery, if you do not have someone to take care of you. If you already have an Advance Directive, please fax a copy to [phone] or email to for it to be [...] day. Mechelle Burnett PA-C documented in this encounterPaulding County Hospital09-28-2022 Miscellaneous Notes* Telephone Encounter - Bienvenido Del Cid Ma - 08/16/2022 5:19 PM EDT Images from cd have been uploaded into patient's chart. I spoke with patient and he does not need the cd back. I am putting it in the admin office to be destroyed. documented in this encounterPaulding County Hospital09-23-2022 NoteHNO ID: [id number] Author: Noelle Vega MD Service: ? Author Type: Physician Type: Progress Notes Filed: 08/11/2022 11:28 AM Note Text: [facility] KIDNEY STONE CENTER NEW PATIENT HISTORY AND PHYSICAL EXAM PATIENT INFO: Dat Lopez 62 year old REFERRING M.D.: Pelon Coles [address] [place] [address] PCP: No primary care provider on file. [...] Left NL, multiple stones. ESWL was performed. [facility]. Then URS x 2 and ureteral stent [...] history of headaches, syncope (more content not included)...[facility]09-23-2022 Instructions* Patient Instructions* Noelle Vega MD - [...] video with more information on ureteral stents: [email or web address]://[email or web address] Video on PCNL: [email or web address] If you have any additional questions regarding this procedure, please reach out to our team. Warm regards, Your [facility] Team documented in this encounterPaulding County Hospital09-23-2022 History of Present illness Narrative* Noelle Vega MD - 08/11/2022 11:00 AM EDT Images from the original note were not included. [facility] NEW PATIENT HISTORY AND PHYSICAL EXAM PATIENT INFO: Dat Lopez 62 year old REFERRING M.D.: Pelon Coles [address] [place] [address] PCP: No primary care provider on file. [...] Left NL, multiple stones. ESWL was performed. [facility]. Then URS x 2 and ureteral stent [...] Abdomen is Non-distended, soft, nontender. 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 Neurologic: Normal gait. Sensation grossly intact. [...] with URS. Plan for Sep 11 at [place] The patient decided to proceed with the [...] Vega MD Associate Staff documented in this encounterPaulding County Hospital09-07-2022 NotePROCEDURE: XR HIP LT 2 3V [...] Electronically authenticated by: GEMA OTTO Date: 2022-07-26 21:53[facility]04-26-2022 Hospital Discharge instructions Patient Education 03/14/2022 [...] COLES Address: [facility] [address], [place] [address]- Business (1) When: Unknown Comments:Office will call to schedule follow up [facility]04-25-2022 Hospital Discharge instructions Patient Education 03/13/2022 16:08:43 [...] Follow these instructions at home: Medicines Take vzmr-hpk-pcfpjwb and prescription medicines only as told by [...] or the blood stops without treatment. Take hefi-lbt-tzfvrju and prescription medicines only as told by your health care provider. Drink enough fluid to keep your urine clear or pale yellow. This information is not intended to replace advice given to you by your health care provider. Make sure you discuss any questions you have with your health care provider. Document Released: 11/05/2006 Document Revised: 03/31/2020 Document Reviewed: 12/08/2017 iCreate Patient Education 2020 ActiveEon. Follow Up Care 03/13/2022 08:09:52 With:Pelon COLES MD, URL Address: [facility] [address], [place] [phone] When: Unknown [facility] evaluation + Plan note Future Appointments Appointment Date:03/14/2022 10:00:00 AM Scheduled Provider: Location:[facility] Appointment Type:Urology FT Appointment Date:05/05/2022 09:30:00 AM Scheduled Provider:Pelon COLES MD Location:[facility] Appointment Type:URO Office Visit [facility] evaluation + Plan note Future Appointments Appointment Date:05/05/2022 09:30:00 AM Scheduled Provider:Pelon COLES MD Location:[facility] Appointment Type:URO Office Visit Diagnostic Tests Pending * UroVysion Fish and Urine Cyto ([facility]) [facility] App[facility]ments Appointment Date:12/18/2022 02:30:00 PM Scheduled Provider:Pelon COLES MD Location:[facility] Appointment Type:URO Office Visit General Surgery [place] Evaluation + Plan note Future Appointments Appointment Date:06/18/2023 09:45:00 AM Scheduled Provider:Pelon COLES MD Location:[facility] Appointment Type:URO Office Visit [facility] evaluation + Plan note Future Appointments Appointment Date:11/27/2023 03:30:00 PM Scheduled Provider:Pelon COLES MD Location:[facility] Appointment Type:URO Procedure 30 min Appointment Date:12/14/2023 10:30:00 AM Scheduled Provider:Pelon COLES MD Location:[facility] Appointment Type:URO Office Visit General Surgery [place] Evaluation + Plan note Future Appointments Appointment Date:12/14/2023 10:30:00 AM Scheduled Provider:Pelon COLES MD Location:[facility] Appointment Type:URO Office Visit [facility] Evaluation + Plan note Future Appointments Appointment Date:12/14/2023 10:30:00 AM Scheduled Provider:Pelon COLES MD Location:[facility] Appointment Type:URO Office Visit Diagnostic Tests Pending * Prostate Histology ([facility]) [facility]23 [facility] Future App[facility]ments Appointment Date:12/19/2024 10:30:00 AM Scheduled Provider:Pelon COLES MD [facility] Appoint[facility] Type:URO Office Visit Diagnostic Tests Pending * PSA Total 12/17/23 [facility] evaluation + Plan note Future Appointments Appointment Date:12/19/2024 10:30:00 AM Scheduled Provider:Pelon COLES MD [facility] Appointment Type:URO Office Visit Diagnostic Tests Pending * Urine Culture [facility] Future Appointments Appointment Date:12/19/2024 10:30:00 AM Scheduled Provider:Pelon COLES MD Location:[facility] Appointment Type:URO Office Visit Diagnostic Tests Pending * Creatinine 05/05/24 [facility] evaluation note* Diagnosis Screening for genitourinary condition- Primary Screening for other and unspecified genitourinary condition Calculus of kidney with calculus of ureter Calculus of kidney Staghorn calculus Calculus of kidney [facility] Diagnosis Nephrolithiasis- Primary Calculus of kidney Secondary hyperparathyroidism of renal origin (HCC) Secondary hyperparathyroidism (of renal origin) Gross hematuria Gross hematuria Nephrolithiasis Calculus of kidney documented in this encounter [facility]* Diagnosis Pre-op evaluation- Primary Preoperative examination, [...] Calculus of kidney documented in this encounter [facility]* Diagnosis Calculus of kidney with calculus of ureter Calculus of kidney Nephrolithiasis Calculus of kidney documented in this encounter [facility]* Diagnosis Hyperkalemia- Primary Hyperpotassemia documented in this encounter [facility]* Diagnosis Nephrolithiasis- Primary Calculus of kidney Calculus of kidney with calculus of ureter Calculus of kidney documented in this encounter [facility] HospitalEvaluation noteNo InformationNort [email or web address] Other evaluation [email or web address] [email or web address] Other Evaluation noteNo assessment information available [facility] Work Phone: Evaluation note* Diagnosis Onset Date Resolution Status [id number] acute Primary hypertension acute [id number] acute [facility] Work Phone: Evaluation note* Diagnosis Onset Date Resolution Status Anemia acute Neuritis of right lower extremity acute Primary hypertension acute Benign prostatic hyperplasia with lower urinary tract symptoms acute Hyperlipidemia, mixed acute Lumbar spondylosis acute Primary hypertension acute Type 2 diabetes mellitus wit h diabetic polyneuropathy acute Type 2 diabetes mellitus with hyperglycemia acute Wellness examination noneact gilbert Chronic kidney disease acute Lumbar spondylosis acute Primary hypertension acute [facility] Work Phone: History general Narrative - [...] Surgical History COLONOSCOPY Hospitalization History see surgeries [employer] Other Hiscqby general Narrative - Reported* Type Description Date [...] Surgical History COLONOSCOPY Hospitalization History see surgeries [employer] Other History general Narrative - ReportedNortTheDigitel Other Hospital course Narrative No data available for this section [facility] Hospital Discharge instructions No data available for this section [facility] progress note No data available for this section [facility] reason for referral (narrative)* Reason * 02/13 Referral for low back pain Diagnosis 1 Lumbar spondylosis ( M47.816) Referral Organization [facility] Referring Provider First Name Sp Referring Provider Last Name Epi Referring Provider Specialty Internal Me dicine Referred Organization [facility] Referred Provider Vandana Blount Referred Address [address] [place], [place],[address] Referred Provider Specialty Pain Medicin e Referral Priority Routine General Notes Patient requesting r efdamional for pain management. He had seen pain management for years but his provider moved. He would like to become established with local pain clinic Smita Prasad 02/06/2023 01:53:36 PM >received today Smita Prasad 02/06/2023 01:55:11 PM >attachments made, notes locked, referral faxed Clinical Notes This patient has chr onic low back pain. He has received benefit from previous injections. P: [phone] F: [id number] [employer] Other Summary Purpose Family History No Family History Records Found Relationship Condition Age at Onset Recorded Date/T jackie father Unknown Not Specified Unknown Advance Directives No Advanced Directives Records Found Advance Directive Response Recorded Date/ Time Advance Directives No July 03, 2019 6:13am Advance Directive Response Recorded Date/ Time Advance Directives No July 03, 2019 5:13am Reason for Referral Specialty Diagnoses / Procedures Referred By Contac t Referred To Contact Cardiology Diagnoses Nephrolithiasis Procedures CONSULT TO CARDIOLOGY OFFICE[facility] 60-[place] [address] [place] [address] Referral ID Status Reason Start Date Expiration Date Visits Requested Visits Authorized [id number] Pending Review PCP Requested Referral 08/11/2022 08/11/2023 1 1 Specialty Diagnoses / Procedures Referred By Elena t Referred To Contact Diagnoses Nephrolithiasis Procedures REFER TO PACC - PRE ANESTHESIA CONSULTATION CLINIC OFFICE/[facility] 60-[place] [address] [place] [address] Referral ID Status Reason Start Date Expiration Date Visits Requested Visits Authorized [id number] Pending Review PCP Requested Referral 08/11/2022 08/11/2023 1 1 Specialty Diagnoses / Procedures Referred By Elena apple Referred To Contact CT IMAGING Diagnoses Calculus of kidney with calculus of ureter Procedures CT FLANK WO IVCON CT ABD & PELVIS [place] [address] [place] [address] Ct Imaging Referral ID Status Reason Start Date Expiration Date Visits Requested Visits Authorized [id number] Authorized Auto-Generat ed Referral 08/11/2022 09/10/2023 1 [...] Check Up worsening neuropathy Reason for Visit [id number] Primary hypertension [id number] Chief Complaint worsening neuropathy Wellness Amb Documentation 1 month Reason for Visit Anemia Neuritis of right lower extremity Primary hypertension Benign prostatic hyperplasia with lower urinary tract symptoms Hyperlipidemia, mixed Lumbar spondylosis Primary hypertension Type 2 diabetes mellitus with diabetic polyneuropathy Type 2 diabetes mellitus with hyperglycemia Wellness examination Chronic kidney disease Lumbar spondylosis Primary hypertension Additional Source Comments (unrecognized sect ion and content) No Status Records FoundNo Status Records FoundNo Status Records FoundNo Status Records FoundNo Status Records FoundNo Status Records FoundNo Status Records FoundNo Status Records FoundNo Status Records FoundNo Status Records Found INFORMATION SOURCE (unrecogn ized section and content) DATE CREATED AUTHOR 06/05/2019 [facility] DATE CREATED AUTHOR AUTHOR'S ORGANIZ ATION 01/03/2022 [facility] DATE CREATED AUTHOR AUTHOR'S ORGANIZ ATION 08/21/2022 [facility] DATE CREATED AUTHOR AUTHOR'S ORGANIZ ATION 09/16/2022 [facility] DATE CREATED AUTHOR AUTHOR'S ORGANIZ ATION 09/27/2022 [facility] DATE CREATED AUTHOR AUTHOR'S ORGANIZ ATION 04/04/2023 [facility] DATE CREATED AUTHOR AUTHOR'S ORGANIZ ATION 09/19/2023 [facility] DATE CREATED AUTHOR AUTHOR'S ORGANIZ ATION 05/08/2024 [facility] DATE CREATED AUTHOR AUTHOR'S ORGANIZ ATION 05/09/2024 [facility] Care Team (unrecognized sect ion and content) Library Services Assistant Relationship Specialty Start Date End Date Sp Chowdary DO [address] [place] [address] PCP - General Internal Medicine 09/07/22 Library Services Assistant Relationship Specialty Start Date End Date Sp Chowdary DO [address] [id number] PCP - General Internal Medicine 09/07/22 Team [...] Member Role Status Dates Sp Chowdary , DO Primary Care Provide r, Attending Provider Active Start: January 10, 2024 End: January 10, 2024 Team Status: Inactive Member Role Status Dates Sp Chowdary , DO Primary Care Provide r, Attending Provider Active Start: January 22, 2024 End: January 22, 2024 Team Status: Active Member Role Status Dates Sp Chowdary , DO Primary Care Provide r, Attending Provider Active Start: January 26, 2024 Team Status: Active Member Role Status Dates Sp Chowdary , DO Primary Care Provider Active Start: February 01, 2024 YVETTE García Attending Provider Active St art: February 01, 2024 Team Status: Active Member Role Status Dates Sp Chowdary , DO Primary Care Provide r, Attending Provider Active Start: February 22, 2024 Team Status: Inactive Member Role Status Dates Sp Chowdary , DO Primary Care Provide r, Attending Provider Active Start: March 25, 2024 End: March 25, 2024 Source Comments (unrecognize d section and content) In the event this informatio n is protected by the Federal Confidentiality of Alcohol and Drug Abuse Patient Records regulations: The Federal rules restrict any use of the information to criminally investigate or prosecute any alcohol or drug abuse patient.[facility] the event this information is protected by the Federal Confidentiality of Alcohol and Drug Abuse Patient Records regulations: The Federal rules restrict any use of the information to criminally investigate or prosecute any alcohol or drug abuse patient.[facility] the event this information is protected by the Federal Confidentiality of Alcohol and Drug Abuse Patient Records regulations: The Federal rules restrict any use of the information to criminally investigate or prosecute any alcohol or drug abuse patient.[facility] the event this information is protected by the Federal Confidentiality of Alcohol and Drug Abuse Patient Records regulations: The Federal rules restrict any use of the information to criminally investigate or prosecute any alcohol or drug abuse patient.[facility] the event this information is protected by the Federal Confidentiality of Alcohol and Drug Abuse Patient Records regulations: The Federal rules restrict any use of the information to criminally investigate or prosecute any alcohol or drug abuse patient.[facility] the event this information is protected by the Federal Confidentiality of Alcohol and Drug Abuse Patient Records regulations: The Federal rules restrict any use of the information to criminally investigate or prosecute any alcohol or drug abuse patient.[facility] the event this information is protected by the Federal Confidentiality of Alcohol and Drug Abuse Patient Records regulations: The Federal rules restrict any use of the information to criminally investigate or prosecute any alcohol or drug abuse patient.[facility] the event this information is protected by the Federal Confidentiality of Alcohol and Drug Abuse Patient Records regulations: The Federal rules restrict any use of the information to criminally investigate or prosecute any alcohol or drug abuse patient.[facility] Reason for Visit (unrecogniz ed section and content) Reason Comments New Patient Kidney stones Reason Comments Other CD from [facility] XR KUB Reason Comments Schedule Surgery Specialty Diagnoses / Procedures Referred By Elena apple Referred To Contact Diagnoses Nephrolithiasis Procedures REFER TO PACC - PRE ANESTHESIA CONSULTATION CLINIC OFFICE/OUTPATIENT NEW HIGH MDM 60-[place] [address] [place] [address] Referral ID Status Reason Start Date Expiration Date Visits Requested Visits Authorized [id number] Pending Review PCP Requested Referral 08/11/2022 08/11/2023 1 1 Specialty Diagnoses / Procedures Referred By Elena apple Referred To Contact CT IMAGING Diagnoses Calculus of kidney with calculus of ureter Procedures CT FLANK WO IVCON CT ABD & PEL[place] [id number] [place] [address] Ct Imaging Referral ID Status Reason Start Date Expiration Date V isits Requested Visits Authorized [id number] Closed Auto-Generate d Referral 08/11/2022 09/10/2023 1 [...] BE BASED ON THE PRIMARY CLINICAL RECORDS. [employer] provides no warranty or guarantee of the accuracy or completeness of information in this document.
--- NOTE | 2024-05-12 08:55 | CT_ITS ---
[address] [address] Patient Name: DAT LOPEZ MRN: [id number] date: 1960 Sex: M Assigned Patient Location: LAB Current Patient Location: LAB Accession/Order Number: [id number] Exam Date: 05/12/2024 09:50 Report Date: 05/12/2024 13:14 At the request of: PELON COLES Procedure: CT abdomen pelvis wo/w con EXAMINATION: CT abdomen pelvis wo/w con HISTORY: clot retention of urine, history of bladder cancer, N20.0 COMPARISON: 09/27/2022 TECHNIQUE: Axial, Coronal, and Sagittal images were created without and with non-ionic intravenous contrast material. Dose reduction techniques were achieved by using automated exposure control and/or adjustment of mA and/or kV according to patient size and/or use of iterative reconstruction technique. FINDINGS: LUNG BASES: No visible pulmonary or pleural disease. LIVER: No enlargement, atrophy, abnormal density, or significant focal lesion. BILIARY: No dilatation or calcification. PANCREAS: No lesion, fluid collection, ductal dilatation, or atrophy. SPLEEN: No enlargement or focal lesion. ADRENALS: 1.6 cm right adrenal nodule. Normal left KIDNEYS: Multiple bilateral nonenhancing hypodensities likely cysts. Left nephrolithiasis. 3 mm proximal left ureterolith, axial image 71 BOWEL/MESENTERY: Colonic diverticulosis without evidence of acute diverticulitis. Nonobstructive bowel gas pattern. Normal appendix AORTA/VASCULAR: No aortic aneurysm. Mild to moderate atherosclerosis RETROPERITONEUM: No mass or adenopathy. LYMPH NODES: No adenopathy. URINARY BLADDER: Presence of a balloon catheter, normally positioned. Thickened urinary bladder wall measuring up to 9.8 mm PELVIC ORGANS: Enlarged lobular heterogeneous prostate gland deforming the urinary bladder. The prostate gland measures 6.8 x 6.8 cm axial image 140 ABDOMINAL WALL: No mass or hernia. BONES: No bony lesion or fracture. OTHER: Negative. CT/CT abdomen pelvis wo/w con IMPRESSION: Enlarged lobular heterogeneous prostate gland deforming and inseparable from the urinary bladder Urinary bladder wall thickening with no focal mass Electronically authenticated by: JI CULLEN Date: 05/12/2024 13:14
[2024-05-12 09:08] LABS: Estimated GFR (African America >60 (>=60); Estimated GFR (Non-African Ame 55 (>=60)
== END 2024-05-12 08:45 | disposition home or self-care (01) ==
LOC: LAB 08:44
PROVIDERS: PCP Internal Medicine; Visit Provider Urology
DX: N41.0 Acute prostatitis (principal); R33.8 Other retention of urine; Z85.51 Personal history of malignant neoplasm of bladder; N20.0 Calculus of kidney
CPT/HCPCS: 36415; 74178; 82565; Q9967

== ENCOUNTER 2024-05-23 15:13 | Emergency (ER) | payer OTHER, MEDICARE, SELFPAY ==
[2024-05-23 15:16] VITALS: BP 184/98; PULSE 77; TEMP 36.8; O2SAT 100; BMI 32.3
--- OUTSIDE RECORDS SUMMARY | 2024-05-23 15:29 | XMS_ITS | CCD ---
Author Organization [facility] Team Providers Care Anatomical Embalmer Name Role Phone PROVIDER, UNKNOWN Attending Unavailable PROVIDER, UNKNOWN Admitting Unavailable CARTER GODFREY Referring Unavailable SP CHOWDARY Primary Care Physician [phone] Unavailable Primary Care Provider Unavailrigoberto e Unavailable Primary Care Provider UnavailNOELLE Montero Attending Unavailable PELON COLES Referring Unavailable Sp Chowdary DO Primary Care Provider NOELLE VEGA Attending Unavailable SILVIA, NOELLE Admitting Unavailable ZAMPINI, NOELLE Referring Unavailable ZAMPINI, NOELLE Referring Unavailable ROBERTAINI, NOELLE Referring Unavailable NOELLE VEGA Attending Unavailable SP CHOWDARY Primary Care Unavailable Unavailable Primary Care Provider Unavailrigoberto e Alfonzo Ashford II Unavailable Sp Chowdary Unavailable LUPEMIPATHY ., LIANA Attending Britni vailable ELLIE ., LIANA Admitting Britni vailable EPI, DR SNOWDEN Primary Care Unavailable Gema Otto Consulting Unavailable JESUSPATHNico ., LIANA Consulting Britni vailable EPI, DR SNOWDEN Primary Care Unavailable PAY [...] Unavailable ZiGema caicedo Consulting Unavailable BALL, DR SNOWDEN Primary Care [...] Unavailable BALL, DR SNOWDEN Primary Care Unavailable WEST, DR JI Smallwood Consulting Unavailable HALKER ., RADHA Attending Unavailable HALKER ., RADHA Consulting Unavailable BALL, DR SNOWDEN Primary Care Unavailable HALKER ., RADHA Admitting Unavailable LAKSHMIPATHY ., NARENDRANATH Attending Britni vailable LAKSHMIPATHY ., NARENDRANATH Consulting Britni vailable LAKSHMIPATHY ., NARENDRANATH Admitting Britni vailable BALL, DR SNOWDEN Primary Care Unavailable LAKSHMIPATHY ., LIANA Attending Britni vailable LAKSHMIPATHY ., LIANA Consulting Britni vailable LAKSHMIPATHY ., NARENDDANAYATH Admitting [...] Unavailable DORKOSKIE, CATRINA Consulting Unavailable EPI, DR SNOWDEN Primary Care Unavailable [...] Care Provider MD Pelon Coles Attending Provider [phone] Sp Chowdary Primary Care Unavailable Ringgold II, Alfonzo Adrian Attending Unavailabl e Ringgold II, Alfonzo Adrian Admitting Unavailabl e BallSp Primary Care Unavailable Dejon II, Alfonzo Adrian Attending Unavailabl e Ringgold II, Alfonzo Adrian Admitting Unavailabl e Coles, [...] Pelon R Attending Unavailable COLES, Pelon R Admitting Unavailable COLES, Pelon Mujica Referring Unavailable COLES, Pelon Mujica Attending Unavailable COLES, Pelon R Attending Unavailable COLES, Pelon R Admitting Unavailable COLES, Pelon R Admitting Unavailable COLES, Pelon Mujica Attending Unavailable NILL, Duran Mujica Attending Unavailable Allergies Allergy Classification Reported Allergen(s) Allergy Type Date of Onset Reaction(s) Facility Benzodiazepines (3 sources) diazePAM; Translations: [diazepam] Drug Allergy 02-26-20 17 Nausea and vomiting [facility] exenatide (2 sources) exenatide; Translations: [exenatide] Drug Allergy 02-26-20 17 Nausea and vomiting [facility] Opioid Agonists (2 sources) Morphine; Translations: [morphine] Drug Allergy 11-05-20 14 Itching (finding) [facility] Thiazolidinediones (glitazones) (3 sources) pioglitazone; Translations: [pioglitazone] Drug Allergy Eruption of skin (disorder) [facility] Unclassified (2 sources) Byetta Prefilled Pen; Translations: [Byetta Prefilled Pen] Propensity to adverse reactions (disorder) [facility] Repository (20 sources) diazePAM; Translations: [DIAZEPAM] Drug Allergy 02-27-20 17 Vomiting, GI Upset [facility] (4 sources) exenatide; Translations: [BYETTA] Drug Allergy 02-27-20 17 Vomiting [facility] Repository (20 sources) pioglitazone; Translations: [PIOGLITAZONE] Drug Allergy 02-27-20 17 Eruption of skin (disorder), Other, Swelling [facility] (20 sources) exenatide; Translations: [exenatide] Drug Allergy 10-22-20 13 Vomiting [facility] (14 sources) Morphine; Translations: [morphine] Drug Allergy 11-05-20 14 Other (qualifier value), Itching (finding) [facility] (2 sources) diazePAM; Translations: [Valium] Drug Allergy [facility] Repository (1 source) Morphine Drug Allergy [facility] Rep[facility] (2 sources) pioglitazone; Translations: [Actos] Drug Allergy [facility] Repository (8 sources) Vancomycin Drug Allergy 01-10-20 24 Unknown, Unknown Reaction [facility] (3 sources) patient allergy list reviewed by nurse or physicia Propensity to adverse reactions 07-08-20 19 Comment:Done [employer] Other (1 source) Unable to Assess Drug allergy (disorder) 04-10-20 [facility] Repository Medications Current Medications Medication Drug [...] 0.5 ML tirzepatide 5 MG/ML Auto-Injector [Mounjaro] (3 sources) Start: 05-05-2024 Mounjaro 2.5 mg/0.5 mL subcutaneous solution Refills(s) 0 Start Date: 05/05/24 Status: Ordered amLODIPine 5 mg oral tablet (20 sources) Dihydropyridine Calcium Channel Nicolasa Start: 01-29-2024 End: 02-26-2024 take 5 mg by mouth twice daily Amlodipine Active 5 MG PO Twice daily 180 90 February 26, 2024 6:08pm Start: 11-01-2017 End: 01-29-2024 take 5 mg [...] Take 2.5 mg by mouth. 0 Active Basaglnatacha De La CruzPen (11 sources) Start: 12-11-19 Basaglar KwikPen Refills(s) 0 [...] on above: Take 1 capsule by mo [facility] three times daily for 3 days. ciprofloxacin 500 mg oral tablet (6 sources) Quinolone Antimicrobial Start: 05-05-20 End: 05-19-20 take 1 tablet by mouth every twelve hours Cipro 500 mg Tab 500 mg = 1 tab(s), Oral, q12hr, X 14 day(s), # 28 tab(s), Refills(s) 0, Pharmacy: [facility]/pharmacy #[id number], 177, cm, 05/05/24 11:12:00 EDT, Height/Length Dosing, 102, kg, 05/05/24 11:12:00 EDT, Weight Dosing Start Date: 05/05/24 Stop Date: 05/19/24 Status: Ordered Start: 10-02-2023 End: 10-09-2023 Cipro 500 mg Tab 500 mg = 1 tab(s), Oral, q12hr, Start 3 days prior to procedure, X 7 day(s), # 14 tab(s), Refills(s) 0, Pharmacy: [facility]/pharmacy #[id number], 177, cm, 06/12/23 16:16:00 EDT, Height/Length Dosing, 111, kg, 12/18/22 15:22:00 EST, Weight Dosing Start Date: 10/02/23 Stop Date: 10/09/23 Status: Ordered Start: 03-13-2022 take 1 tablet by martha once daily Cipro 500 mg Tab 500 mg = 1 tab(s), Oral, Daily, take 1 day prior to procedure and 1 tab after procedure, # 2 tab(s), Refills(s) 0, Pharmacy: [facility]/pharmacy #[id number], 177, cm, 03/13/22 15:23:00 [...] Status: Ordered take 1 capsule by mo [facility] once daily at bedtime Gabapentin 100 [...] take 100 mg by mouth once daily losartan 100 mg, Oral, Daily, Refills(s) 0, [...] oral tablet (20 sources) beta-Adrenergic Nicolasa Start: 12-11-2022 End: 02-05-2024 take 1 tablet by mouth once daily metoprolol 50 mg ER Tab 50 mg = 1 tab(s), Oral, Daily, Refills(s) 0 Start Date: 12/11/22 Status: Ordered Start: 11-01-2017 take 25 mg by mouth once daily Lopressor 25 mg, Oral, Daily, Refills(s) 0, High blood pressure Start Date: 11/01/17 Status: Ordered take 1 capsule by mo [facility] once daily Metoprolol Succinate 50 MG 1 [...] January 08, 2024 12:00am Multivitamins and Minerals (14 sources) Start: 11-02-2017 take 1 tablet by mouth once daily Multivitamins and Minerals 1 tablet, Oral, Daily, Refill(s) 0, Prophylaxis Start Date: 11/02/17 Status: Ordered pantoprazole 40 mg delayed release oral tablet (7 sources) Proton Pump Inhibitor Start: 11-14-2023 take [...] above: Take 1 tablet by martha th three times daily as needed for up [...] once daily. sildenafil 100 mg oral tablet (4 sources) Phosphodiesterase 5 Inhibitor Start: 12-17-19 Viagra 100 mg Tab 100 mg = 1 tab(s), Oral, As Directed, PRN erectily dysfunction, Take on tab 1 hour before sexual activity, # 30 tab(s), Refills(s) 3, Pharmacy: [facility]/pharmacy #[id number], 177, cm, 12/17/23 11:33:00 [...] on above: Take 1 capsule by mo [facility] daily at bedtime. Tirzepatide (1 source) Start: 03-25-20 Tirzepatide (Mounjaro) 2.5 mg/0.5 mL pen injector Active 2.5 MG SUBCUT every week 2 March 25, 2024 12:00am vardenafil 10 mg oral tablet (1 source) Phosphodiesterase 5 Inhibitor Start: 01-10-20 24 take 10 mg by mouth once daily Vardenafil Active 10 MG PO Daily 18 90 January 10, 2024 1:00am Completed/Discontinued Medications Medication [...] on above: Take 1 capsule by mo [facility] twice daily. hydrALAZINE hydrochloride 10 mg oral tablet (2 sources) Arteriolar Vasodilator Start: 4 End: 4 take 10 mg by mouth twice daily Hydralazine Discontinued 10 MG PO Twice daily 60 February 26, 2024 6:01pm March 25, 2024 [...] # 180 tab(s), Refills(s) 3, Pharmacy: [facility]/pharmacy #[id number], 177, cm, 12/18/22 15:22:00 [...] period., # 30 tab(s), Refills(s) 11, Pharmacy: [facility] [id number], 177, cm, 06/12/23 16:16:00 EDT, Height/Length Dosing, [...] period., # 30 tab(s), Refills(s) 3, Pharmacy: [facility] [id number], 177, cm, 03/13/22 15:23:00 EDT, Height/Length Dosing,... Start Date: 11/15/22 Status: Ordered Start: 03-13-2022 take 0.5 tablet by [facility] once daily Tadalafil (CIALIS) 20 mg tab(s) [...] unspecified] Chronic Cancer; other and unspecified primary (14 sources) H/O: malignant neoplasm 08-24-2020 Episodic Cardiac dysrhythmias (6 sources) Postural orthostatic tachycardia syndrome ; Translations: [POTS (postural orthostatic tachycardia syndrome)] Onset: 2 08-24-2022 Chronic Chronic kidney disease (11 sources) Chronic kidney disease; Translations: [Chronic kidney [...] unspecified] Onset: 8 08-24-2022 Chronic Esophageal disorders (8 sources) Gastro-esophageal reflux disease with esophagitis; Translations: [...] of ankle] Episodic Gastroduodenal ulcer (except hemorrhage) (8 sources) Gastric ulcer; Translations: [Gastric ulcer, unspecified [...] Episodic Inflammatory conditions of male genital organs (4 sources) Acute prostatitis; Translations: [Acute prostatitis] Onset: [...] 2 10-29-2019 Chronic Other aftercare (3 sources) correction (current) use of insulin; Translations: [Type 2 diabetes mellitus without complication, with long-term current use of insulin (HCC)] Onset: 2 Episodic Other aftercare (1 source) Long-term current use of drug therapy; Translations: [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] Episodic Other aftercare (3 sources) High risk drug monitoring status; Translations: [correction (current) use of opiate analgesic] Episodic Other aftercare (7 sources) Long-term current use of insulin; Translations: [correction (current) use of insulin] 01-08-2024 Episodic Other [...] colon] Episodic Other and unspecified benign neoplasm (19 sources) History of polyp of colon; Translations: [Personal history of colonic polyps] Onset: 3 Episodic Other and unspecified benign neoplasm (8 sources) Benign neoplasm of ascending colon; Translations: [Benign neoplasm of ascending colon] Onset: 3 Episodic Other circulatory disease (11 sources) Postural orthostatic tachycardia syndrome 12-11-2022 Episodic [...] Chronic Other diseases of kidney and ureters (3 sources) Clot retention of urine 05-05-2024 Episodic Other disorders of stomach and duodenum (17 sources) Gastroparesis syndrome; Translations: [Gastroparesis] Episodic Other endocrine disorders (11 sources) Hyperparathyroidism 12-11-2022 Chronic Other endocrine disorders (1 source) Disorder of adrenal gland; Translations: [Other specified disorders of adrenal gland] Onset: 2 Chronic Other gastrointestinal disorders (1 source) Swollen abdomen; Translations: [Abdominal distension (gaseous)] Onset: 3 Episodic Other gastrointestinal disorders (9 sources) Abdominal bloating 10-05-2023 Episodic Other injuries and conditions due to external causes (1 source) History of fall; Translations: [History of falling] Episodic Other male genital disorders (20 sources) Male erectile dysfunction, unspecified; Translations: [Erectile [...] Chronic Other nutritional; endocrine; and metabolic disorders (19 sources) Obesity; Translations: [Other obesity due to [...] 11-03-2015 Episodic Other aftercare (1 source) Other intermediate (current) drug therapy; Translations: [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 DRUG 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] Onset: 05-29-2022 Episodic Other aftercare (1 source) correction (current) use of oral hypoglycemic drugs; Translations: [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 USE ORAL HYPOGLYCEMIC DX] Onset: 05-08-2022 Episodic [...] Range Facil ity Ambulatory Visit Summaryon 0 05-20-2024 Ambulatory Visit Summary Ambulatory Visit Summary DAT LOPEZ :1960 Visit Date:05/20/2024 Ambulatory Visit Instructions Your Care Team Attending Physician - SANKET PRECIADO, Pelon Mujica Primary Care Physician - SP CHOWDARY DO This Is Your Medications List amlodipine gabapentin insulin aspart (NovoLog) insulin glargine (Basaglar KwikPen) losartan metformin metoprolol (metoprolol 50 mg ER Tab) multivitamin with minerals (Multivitamins and Minerals) pantoprazole (Pantoprazole [address] Tab) pravastatin sertraline sildenafil (Viagra 100 mg Tab) tirzepatide (Mounjaro 2.5 mg/0.5 mL subcutaneous solution) Procedures Performed Transrectal biopsy of prostate using ultrasound guidance (11/27/2023), Colonoscopy (10/31/2023), EGD - esophagogastroduodenoscop y (10/31/2023), Cystoscopy (08/30/2021), Cystoscopy (08/24/2020), Cystoscopy (12/16/2019), Colonoscopy (09/2019), Colonoscopy (10/2017), Biopsy of prostate (2016), bladder tumor (2006), right leg bone tumor (2001), ankle surgery, Lithotripsy, Transurethral water vapour ablation of prostate. What to do next Scheduled Follow-Up Appointments Sunday 9:00 AM EDT With: Where: [facility] Invalid Interpretation Code [address] [place] [address]- \.br\ Sunday 10:30 AM EST \.br\ With: Pelon COLES MD\.br\ Where: [facility] Coding Summary.on 05-13-2024 Coding Summary. [id number]+PG hlYWQ +HQ7GTGCsH38csOJyrW4mO2TG TElOSywgQVBQTElOSyIgbmFtZ T8iqLZxDGAj IC8+TB7kIQYnHfhugKTyn7X3o DM4K53txn9fQLuprTY5EPEdPf Zcccgzw3piyTd8LJqcCicmNhG t SFEuuR07DVO3tF91Jg47eVHsn KRnt6wjeAd6QwKjEBMwUJY8bI zgZPhaj9FpMHDlE83fiHSqg9I 6 AGRybXckpUPfIiPxeBM3sN9xW Nlcbwpef4whmvkjJri4mm99jO Ijg9C5sBV4Q4XiteF1IRLxwPY g BxhmaYHOhN5pavwka9uzjwqkU xLqJLRaSBa0WEm0TMVobKaxWs FxNR23UNR4WNWyaeInZ0ChCOH s uLstJsE4b4H3Jy6OY5DNSfnqL 1VNTUFSWTwvdGQ+QC55px41O7 TnWzaoLlx2VXAyIGF0eUV0pU0 n FBQhMCjtw4X9oUP4Q9PyhdGho r7ec7gtRVZxEXapN31yfHCdz0 L2DIMvdBB9LGYhlCmbEoKocF9 3 Oyc+YWAehPzev7NaWthfm0rhc 5rzwZr8NsylTOTmqgUrkPcfOZ G1k9AyAg3gGYMtgMI0mGZ2xN9 i ZcEeMuI2MMucB091AlZpiCCkS csyR54dV0XaqSX+QNBsUjo3BT SkqPamZZ8zT9OzQETlmnbjqHK m pBxlUP9lVLBhgxnqTTUetW1kJ VGxZ6t2LiHaJaS2YSfrT1IkGF DfsgijFz68dG6wXgStOrX4NOb u Z9FfolC0SDEztEFgLCfrKQH9H 11yg8R5DWSnJSVzPOD8pKY7kQ 1hbGlnbjogbGVmdDsgdmVydGl j YTmpTPfeJ204RUOcaJxpFkAfY GluZyBEYXRlOiAgMDYvMjUvMj AyNDwvdGQ+URBgTUE0kQzuPRL n sJLiUHumNn0geLysaTluSI8sB LZcfvisYXFqcJ5oKPBggZCzsA moCG5eSVNxegkrs213KhByHXA 0 TODeaQCmA8RksZ4rJxXhZIXaX FUuF3QhyHXuYUjbN556UUpvWa D0IKEmkjLtO6HsUYGnsIhyTwZ 0 s2B1Mm3So1ChkddpD6GmuWAfF yUwIbjhPJs1X3QrTlacxOA+PC 16ZVElTM55EFt8IQF4oXxpGOw i PIXaA5OhvJ1kPqImWLOcMHJjX yc+PHRhYmxlIHdpZHRoPScxMD IlWfTtqNdpNN8oEt3hWGGoGNO v zNqckKMbIzHwe4jfJELvHPyoO R5yiTmsS9CquMU0JBNew7m2Ds 22S31aX7OrvQQ+WVQqxWI5uTC 0 qV0iKyByApV0NQupG883HbYtl WTbOeyri1yxm4bsxRw7OwI2XQ VvnsHzjGbcFTE2e1OcKq91G57 s IHdpZHRoPSIxNSUiIHZhbGlnb u1saX6dLo9+HZDgdSW7uBM2mB 5lJrTfSaK2UDqcC967RuFutUW v Qkbwk9ppd5zehGa9MqVdXIPqs qLnvPosZHI0j8HaMs35B8KaoM jwj3OaWnr9qk68tSYvk1P5xMY 9 M6TsXJVaphmdjDCbdFduQQ0bF YZevsgaQPGncI7fWVEcR9k5Kt MgJkY5BWnpO3JfjiE1VYQifDD g EOJxzLNWfN5pouuvm8gwrlqnX rMnRADzITs0NOm7PIPijMfsMz WfLVO8YeU5RWI8pDBhdN9ijZa n thaalB8jOjh+WXZ4dWJnrCLWL M6kSjvqtLH+QEHfHFZ3rQptOM gtDYVlbI1gXBOmE1n2XgNpZpD 1 NSccS7LptlR8AOCcaJFkSODuw RXUcD5ofutba9jrpjpmQfHhZU TeVRq9IBc4VJQztSdxJcWbCKX 0 UjB3PHE8yUZrsD9uuGndopokq G9wOyc+TkbeiHxjKEX3NRh6U2 QlXly2AURtaQyiTQ9cxFKmLZt u Nz8znMwmwJcxJN9wQKQvyiaka 937TjJlq8fgAIUzoPDxQFubUR Y5G51gv7Y3RJIuDZRlYWH3zEU 4 vG0chLdylgotjQEvcLxrpfNiz UtmRXscPRiwK843NXMwiPasLo PwIEr7J7AsDrl8XZPvlYmbFH9 n nXLdMUxjAf8qoJiuwCzvXG9kD CRbzdzrj532SlSuu4npZVHbtS SsKVdfOWY4E04va2R6EVZfLPI w DSR0oMX5mO9ouMrkbymfmILcq HyhwtQpoMubGJvyEDekH757QO OirSncGdOukZg3E6ZeMnk7MUQ z aHroTZ1nuILwCZoqVd2ntZrvy JgqAY2zUNFynydtk032QeIre3 ueDLUiiBHeTZlhYMA8Y25vv5Q 6 PBAbLKKtNHX7nZV8xC7neZgtp jogbGVmdDsgdmVydGljYWwtYW wlT011DFQnqUjgLfVmeVbnxcK g LHmjPVe1Z9AeIkvyuQP+PC90Y WLlXP66qMUgrVPft5vskMu4Yi IeKBXnMRV7dOcuOVqja9VkLZE t S20qvJVoh5P7TDYbjVzkzUAfN xIjfHT5vF8fBFrskwxkp5wobr dcGheud5xgcc27aI37G16vMLn p TWHjAEHrGVEuCBCqtZhbnb6jr G9wIi8+OQLfsEK6eCX8eM1bAN YoNzQ3QWymE882ChYvcOWoHuh j m1eho9xniGh7SzZ7FXCcchUcz MjaUVF3s2HxRk38B90pAZwdHS VnVZDrUOZiZYZgeHzfxn6xlK7 w Ii8+ZNSrbPH7pYU3oB8jTlUrK bS8FClzO605PyKxbDPuApkdH0 6tN0UtlXM+RCBhBza3ARDsuRc s JR6owCIfAZtsBr4pZEY5XeEoA lQbQJkeU3MmJSEzlkabpenuhI U7VXTyHEGkmP70Mz1ryHjbFKV w nEJSjV7fnoxfw1urjsbgFjHzV CSlIPu8IMb2IDRvyKamAaWlSJ O9QlF5FPU8zTGztK2snXgloyy g gF8xJ5ZqLHEppktyOi00uX6bM sCmUuA4QGqzQhs+QURBTVMsIF EAIDBYFASBNP55QU84oVMjw4L 5 jED8B3KfJXUxeoexyhfmmZS3J PJfNGDmuS44oHFeXHfwJd4mg5 F5d854ZLIkZZByqK43Sd4nmVt g DMRvyEQUmK1njnuuk0upibidT sUiRSFnLTj5ILa3LWHeoWnxKs VbLQJ9KwE4UAY9xNEixU8rgNf n cdsdcT3bThx+MJTnKKAjIIm8Z jwvdGQ+BCQuHPY0zQqqAMdoCI BtqQ3vPPRnX2w7NmPaHaA8NCw u J4GsBGRfelloTv79cB1pWdLoA jY6BSetM6BuhyQ0OJDlhZItHU ohUWH9V15yv4U1UTMpABBfTYW 7 sOB8xF4oaExvjgkezOLspNbgs hSflPgwXZbtWXioU422WFWkhY xbRnRnZLlpDRZoOO57HU77pTN g l3G1tKW4Y7HsCJEqwlqgbmzce GH2TSIlXSDujI02dIHgZYvpDl 5zz2R8z789KXKbBSOosN78Ry2 u eFclUOVzqFMGlE3xvuqss0mlx mouPjCzXBVwWGk2YIf6ZIUoyV xlArOyIRB1FcQ1FYC4nOKnhK4 h kTtvwpjxpB2aOzr+TWFsZTwvd GQ+JGOuILT2cTacJZpoNRTdsY 9tRJZsY6n3ZaGbZeW2EYjgI6C h TBLbpfvcUy24eW4mBkKfUkF3Z PynT2JuvwJ0QQQecHOkARnkYB C6L41hl8A2QYFjNACoTNK6oGF 4 aT0zaJsyeeawySGikMgseoUcx PfoBTtsZSgkW740NDUqrKefRj bbHkANvo8gIE6pTxtijEI+PC9 0 gb12X5AeYdngZft6CZZdYAC2p KF7wB9cULLlQCcke7L1kOL3I2 AzgeMdiq5ce9cjMGJxKWieX76 s dFCjs0K7TJDirPX4DEYnjDxsT jYoeZ35Oyn+QERfnWqes2SdBk zag5tod9wziSz6JhCcOSLewnT s yMmnWWK1h8RvWi21N53hPEwnX MYqHESdGYVmDSFnnEmwuq3ibX 9wIi8+JDOvrGC8sYW8sU7lCqX l XsZ2ITleH539XwBueVUdFzzij 0nsq8kakXr4NfWcYFChhwSczW zrHEL9j7OgBn32P7LahHmyz1P w Ybx3ea65bUTdt6N5dOU3D2QbV ZCzjvzypZLbbJvaDV4lVUTtxl vtMQGzvC8bFLEcN1v7ZkSaAkA 1 QYpuA6BpwaA6HFBykSJdSAPmw ZONxO8vgtphg9wohbjwNbCaUI FcBLr6BEr8OFAfrVeiTrCjBZW 0 PqR4NHX7aXHrbJ5phTpkyfpaf G9wOyc+PKa0y1rycZDcDQ6igU N9HC92WU83iIUnp9G5ePS2F7A h KOIkizbnsmcblER3HFJeGMMso O29Rz9glYiyTv0zTOFrAZP0FK ZwmACmN2CwjM5vZsJxEJByWLT w E7GzcYDoDViyE957CGifGoL7W THniaHrG7DfZBKhkXpxIzY9v9 H1Rf7EXI87BC65JA74zQYvo5J 5 oDH5E0UvCPSevgwnshuduXI1V ZXcPFFwgX50Pc6ocYnkRl8bAC AiAPD2GHCfpZHqL2YthN8ySlZ j CYMeKYDiA8OhzZXgCOruO888M NysVhT2EDJlpqApI3KfOWDqdK sxGkU9d3J6Ld9UOa04BD23ET0 8 eYNry1B2gQY7F7EqHNVlwmfjb eevrYL3WGUpCVHeuB17Zl2grT sgGx0mXEDlNWE7JGBudXYrC5D v gH3wDqJzZQQdMEFaI3XgzPIqW CzhG334EHjbZrQ9BGZygmWuZ9 UeXQRlqEwyUmV4w1N4Qz8DVLb l yqs5G5IyTktnaQR+PQ13IEGvD A13sBQscSJdv1eiiRq2YuJtDQ TgVRK0jWauYWlhi3BcMDElU26 s qGNao4W0EOYku (more content not included)... Normal [facility] RAD - CT Reporton 05-13-2024 RAD - CT Report [id number] [facility] Reminderson 05-12-2024 Reminders - From: Nelida Ortiz To: EU - Recalls Sanket; Cc: Nelida Ortiz; Sent: 05/29/2023 13:20:11 EDT Show up: 04/19/2024 13:20:00 EDT Subject: Cysto/fish/cytol/psa Due Date/Time: 05/05/2024 13:20:00 EDT Reminder/Recall Patient is due in May 2024 for 1 year cysto/fish/cytol/PSA (bt ck) Patient had Cysto on 05/06/24. He is sched for TURP 06/19/24. He will be due in 06/2025 for 1 year cysto/fish/cytol (bt ck) [facility] Insurance Correspondenceon 0 05-08-2024 Insurance Correspondence [id number] [facility] C Urineon 05-07-2024 Bacteria identified Cx [...] Locations R1: This test was performed at: [facility], [address] [place] [address], [address] , , [facility] Comment on above: Performed By: #### 2 [id number] #### [facility] [address] [place] [address] Consent for Procedure/Surger yon 05-06-2024 Consent for Procedure/Surgery [id number]#[id number] [facility] Ambulatory Visit Summaryon 0 05-05-2024 Ambulatory [...] Pelon COLES MD Where: [facility] Patient Educationon 05-05-20 24 Patient Education Infectious Disease Prostatitis Prostatitis is [...] these instructions at home: Medicines ? Take [id number] and prescription medicines only as told by [...] Where to find more information ? [employer] and [employer]estive and Kidney Diseases: (more content not included)... Normal [facility] Urology Office/Clinic Noteon 05-05-2024 Urology Office/Clinic [...] 2 wk. SEs discussed. Rx sent to [facility]. -Will schedule cysto. The risks and benefits [...] cancer (Z85.51: (more content not included)... Normal [facility] Comment on above: Result Comment: Elec tronically Signed By: Pelon COLES MD\.br\Date and Time Signed: 05/05/24 12:21 EDT\.br\Electronically Co-Signed By: Jocelyne Moore\.br\Date and Time Co-Signed: 05/05/24 12:20 EDT Estimated glomerular filtrat ion rate (GFR) non- Americanon 02-22-2024 GFR/1.73 sq M.predicted among non-blacks MDRD (S/P/Bld) [Vol rate/Area] 40 mL/min/{1.73_m2} >=60 [facility] - Chemistry and C hemistry - challengeon 02-22-2024 Calcium [Mass/Vol] 9.4 mg/dL 8.5-10.1 [facility] Chloride [Moles/Vol] 103 mmol/L 98-107 [facility] CO2 [Moles/Vol] 27.0 mmol/L 21.0-32.0 [facility] Creatinine [Mass/Vol] 1.73 mg/dL 0.70-1.30 [facility] GFR/1.73 sq M.predicted MDRD (S/P/Bld) [Vol rate/Area] 49 mL/min/{1.73_m2} >=60 [facility] Glucose [Mass/Vol] 192 mg/dL 74-106 [facility] Potassium [Moles/Vol] 4.1 mmol/L 3.5-5.1 [facility] Sodium [Moles/Vol] 140 mmol/L 136-145 [facility] Urea nitrogen [Mass/Vol] 25.0 mg/dL 7.0-18.0 [facility] Urea nitrogen/Creatini ne [Mass ratio] 14.5 mg/mg [facility] Serum or plasma anion gap de terminationon 02-22-2024 Anion gap [Moles/Vol] 14.1 mmol/L [facility] Basophils Auto (Bld) [#/Vol] on 01-26-2024 Basophils (Bld) [#/Vol] 0.0 10 3/uL 0.0-0.1 [facility] Basophils/100 WBC Auto (Bld) on 01-26-2024 Basophils/100 WBC (Bld) 0.4 % 0.2-2.0 [facility] Cholesterol in LDL Calc [Mas s/Vol]on 01-26-2024 Cholesterol in LDL [Mass/Vol] 72.0 mg/dL [facility] Comment on above: <100 mg/dl [id number] 0-129 mg/dl NEAR OR ABOVE [id number] mg/dl BORDERLINE [id number] mg/dl HIGH>190 mg/dl VERY HIGH Cholesterol in VLDL Calc [Ma ss/Vol]on 01-26-2024 Cholesterol in VLDL [Mass/Vol] 27.8 mg/dL [facility] Eosinophils/100 WBC Auto (Bl d)on 01-26-2024 Eosinophils/100 WBC (Bld) 5.1 % 0.9-7.0 [facility] Erythrocyte distribution wid th Auto (RBC) [Ratio]on 01-26-2024 Erythrocyte distribution width (RBC) [Ratio] 13.6 % 11.0-15.0 [facility] Estimated glomerular filtrat ion rate (GFR) non- Americanon 01-26-2024 GFR/1.73 sq M.predicted among non-blacks MDRD (S/P/Bld) [Vol rate/Area] 51 mL/min/{1.73_m2} >=60 [facility] Globulin Calc (S) [Mass/Vol] on 01-26-2024 Globulin (S) [Mass/Vol] 3.4 g/dL [facility] Glucose mean value [Mass/vol ume] in Blood Estimated from glycated hemoglobinon 01-26-2024 Average glucose Estimated from glycated hemoglobin (Bld) [Mass/Vol] 131 mg/dL [facility] Hematocrit Auto (Bld) [Volum e fraction]on 01-26-2024 Hematocrit (Bld) [Volume fraction] 43.6 % 42.0-54.0 [facility] Hemoglobin [Mass/volume] in Bloodon 01-26-2024 Hemoglobin (Bld) [Mass/Vol] 14.0 g/dL 14.0-18.0 [facility] Laboratory - Chemistry and C hemistry - challengeon 01-26-2024 Albumin [Mass/Vol] 3.9 g/dL 3.4-5.0 [facility] ALP [Catalytic activity/Vol] 92 U/L 46-116 [facility] ALT [Catalytic activity/Vol] 48 U/L 16-63 [facility] AST [Catalytic activity/Vol] 35 U/L 15-37 [facility] Bilirubin [Mass/Vol] 0.5 mg/dL 0.2-1.0 [facility] Calcium [Mass/Vol] 8.9 mg/dL 8.5-10.1 [facility] Chloride [Moles/Vol] 104 mmol/L 98-107 [facility] Cholesterol [Mass/Vol] 135 mg/dL <=200 [facility] Cholesterol in HDL [Mass/Vol] 36 mg/dL 40-60 [facility] Comment on above: > or =60 mg/dl - LOW CARDIOVASCULAR RISK<40 mg/dl - HIGH CARDIOVASCULAR RISK CO2 [Moles/Vol] 25.0 mmol/L 21.0-32.0 [facility] Creatinine [Mass/Vol] 1.42 mg/dL 0.70-1.30 [facility] GFR/1.73 sq M.predicted MDRD (S/P/Bld) [Vol rate/Area] mL/min/{1.73_m2} >=60 [facility] Glucose [Mass/Vol] 134 mg/dL 74-106 [facility] Potassium [Moles/Vol] 4.5 mmol/L 3.5-5.1 [facility] Protein [Mass/Vol] 7.3 g/dL 6.4-8.2 [facility] Sodium [Moles/Vol] 139 mmol/L 136-145 [facility] Triglyceride [Mass/Vol] 139 mg/dL <=150 [facility] Urea nitrogen [Mass/Vol] 20.0 mg/dL 7.0-18.0 [facility] Urea nitrogen/Creatini ne [Mass ratio] 14.1 mg/mg [facility] Laboratory - Hematology and Cell countson 01-26-2024 HbA1c (Bld) [Mass fraction] 6.2 % 4.5-6.2 [facility] Comment on above: ADA RECOMMENDED LIMI T 4.0 - 6.0ADA THERAPEUTIC TARGET < 7.0ACTION SUGGESTED> 7.0 Immature granulocytes/100 WBC (Bld) 0.4 % 0.0-0.5 [facility] Leukocytes [#/volume] correc bhanu for nucleated erythrocytes in Blood by Automated counon 01-26-2024 WBC corrected for nucl RBC Auto (Bld) [#/Vol] 6.8 10 3/uL 4.0-11.0 [facility] Lymphocytes Auto (Bld) [#/Vo l]on 01-26-2024 Lymphocytes (Bld) [#/Vol] 2.0 10 3/uL 1.2-3.8 [facility] Lymphocytes/100 WBC Auto (Bl d)on 01-26-2024 Lymphocytes/100 WBC (Bld) 28.9 % 20.5-60.0 [facility] MCH Auto (RBC) [Entitic mass ]on 01-26-2024 MCH (RBC) [Entitic mass] 26.9 pg 25.9-34.0 [facility] MCHC Auto (RBC) [Mass/Vol]on 01-26-2024 MCHC (RBC) [Mass/Vol] 32.1 g/dL 29.9-35.2 [facility] MCV Auto (RBC) [Entitic vol] on 01-26-2024 MCV (RBC) [Entitic vol] 83.7 fL 80.0-94.0 [facility] Microalbumin [Mass/volume] i n Urineon 01-26-2024 Albumin DL <= 20 mg/L (U) [Mass/Vol] 7.8 mg/dL <=30.0 [facility] Monocytes Auto (Bld) [#/Vol] on 01-26-2024 Monocytes (Bld) [#/Vol] 0.5 10 3/uL 0.3-0.8 [facility] Monocytes/100 WBC Auto (Bld) on 01-26-2024 Monocytes/100 WBC (Bld) 7.2 % 1.7-12.0 [facility] Neutrophils Auto (Bld) [#/Vo l]on 01-26-2024 Neutrophils (Bld) [#/Vol] 4.0 10 3/uL 1.4-6.5 [facility] Neutrophils/100 WBC Auto (Bl d)on 01-26-2024 Neutrophils/100 WBC (Bld) 58.0 % 43.0-75.0 [facility] No Panel Informationon 01-25 Eosinophils # (Auto) 0.4 10 3/uL 0.0-0.7 [facility] Immature Granulocyte # (Auto) 0.03 10 3/uL 0.00-0.03 [facility] Platelet mean volume Auto (B ld) [Entitic vol]on 01-26-2024 Platelet mean volume (Bld) [Entitic vol] 10.0 fL 9.5-13.5 [facility] Platelets Auto (Bld) [#/Vol] on 01-26-2024 Platelets (Bld) [#/Vol] 175 10 3/uL 150-450 [facility] RBC Auto (Bld) [#/Vol]on RBC (Bld) [#/Vol] 5.21 10 6/uL 4.70-6.10 [facility] Serum or plasma albumin/glob ulin mass ratioon 01-26-2024 Albumin/Globulin [Mass ratio] 1.1 {ratio} [facility] Serum or plasma anion gap de terminationon 01-26-2024 Anion gap [Moles/Vol] 14.5 mmol/L [facility] Serum or plasma total choles terol/high density lipoprotein (HDL) cholesterol mass pebbles 01-26-2024 Cholesterol.total /Cholesterol in HDL [Mass ratio] 3.8 {ratio} [facility] Comment on above: 3.3 - 4.4 LOW [...] PRECIADO, Pelon Mujica Primary Care Physician - EPI LAO SP This Is Your Medications List sildenafil (Viagra [...] PRECIADO, Pelon Mujica Where: [facility] Patient Educationon 12-17-19 Patient Education Urology Erectile [...] these instructions at home: Medicines ? Take crfz-zic-mgtnypy and prescription medicines only as told by [...] include cig (more content not included)... Normal [facility] Urology Office/Clinic Noteon 12-17-2023 Urology Office/Clinic [...] URL [facility] [address], [place] [address] [phone] Additional Instructions: 1 yr w/ PSA and [...] Benign n (more content not included)... Normal [facility] Comment on above: Result Comment: Elec tronically Signed By: Pelon COLES MD\.br\Date and Time Signed: 12/17/23 12:57 EST\.br\Electronically Co-Signed By: Sahra Daugherty\.br\Date and Time Co-Signed: 12/17/23 12:55 EST Prostate Histology ([facility]) on 12-07-2023 Prostate Histology Diagnosis Info Invalid Interpretation Code [facility] Comment on above: Result Comment: A:Pr ostate,Left Lateral Base:Needle Biopsy Interpretation - - Benign prostatic tissue (see comment). MicroScopic Description - B:Prostate,Left Lateral Mid:Needle Biopsy Interpretation - - Benign prostatic tissue. MicroScopic Description - C:Prostate,Left Lateral [place]:Needle Biopsy Interpretation - - Benign prostatic tissue. MicroScopic Description - D:Prostate,Left Base:Needle Biopsy Interpretation - - Benign prostatic tissue (see comment). MicroScopic Description - E:Prostate,Left Mid:Needle Biopsy Interpretation - - Benign prostatic tissue (see comment). MicroScopic Description - F:Prostate,Left [place]:Needle Biopsy Interpretation - - Benign prostatic tissue. MicroScopic Description - G:Prostate,Right Base:Needle Biopsy Interpretation - - Benign prostatic tissue with patchy chronic inflammation. MicroScopic Description - H:Prostate,Right Mid:Needle Biopsy Interpretation - - Benign prostatic tissue. MicroScopic Description - I:Prostate,Right [place]:Needle Biopsy Interpretation - - Benign prostatic tissue. MicroScopic Description - J:Prostate,Right Lateral Base:Needle Biopsy Interpretation - - Benign prostatic tissue (see comment). MicroScopic Description - K:Prostate,Right Lateral Mid:Needle Biopsy Interpretation - - Benign prostatic tissue (see comment). MicroScopic Description - L:Prostate,Right Lateral [place]:Needle Biopsy Interpretation - - Benign prostatic tissue. [...] cores 2 units cm Site ID:L color tramemll-white fixative Formalin cores 1 units cm A, D, E, J and K: PIN4 reviewed. CPT code: 94536 x 12 73582 x 5 Electronically signed by : on: 12/07/2023 13:49:50 Performed By: #### 1 [id number] ####[facility] [address] [facility] [place] [address] Consent for Procedure/Surger yon 11-29-2023 Consent for Procedure/Surgery [id number]#1.00TIFF Normal [facility] Prostate Histology ([facility]) on 11-28-2023 PH Method of Extraction Needle Biopsy Normal [facility] Comment on above: Performed By: #### 1 [id number] ####[facility] [address] [place] [address] PH Number of Jars 2 Invalid Interpretation Code [facility] Comment on above: Performed By: #### 1 [id number] ####[facility] [address] [place] [address] PH Specimen 1 R Base Prostate Normal [facility] Comment on above: Performed By: #### 1 [id number] ####[facility] [address] [facility] [place] [address] PH Specimen 10 L Lat Mid Prost Normal [facility] Comment on above: Performed By: #### 1 [id number] ####[facility] [address] [place] [address] PH Specimen 11 L Apx Prostate Normal [facility] Comment on above: Performed By: #### 1 [id number] ####[facility] [address] [place] [address] PH Specimen 12 L Lat Apx Prost Normal [facility] Comment on above: Performed By: #### 1 [id number] ####[facility] [address] [place] [address] PH Specimen 2 R Lat Bse Prost Normal [facility] Comment on above: Performed By: #### 1 [id number] ####[facility] [address] [place] [address] PH Specimen 3 R Mid Prostate Normal [facility] Comment on above: Performed By: #### 1 [id number] ####[facility] [address] [place] [address] PH Specimen 4 R Lat Mid Prost Normal [facility] Comment on above: Performed By: #### 1 [id number] ####[facility] [address] [place] [address] PH Specimen 5 R Apx Prostate Normal [facility] Comment on above: Performed By: #### 1 [id number] ####[facility] [address] [place] [address] PH Specimen 6 R Lat Apx Prost Normal [facility] Comment on above: Performed By: #### 1 [id number] ####[facility] [address] [place] [address] PH Specimen 7 L Base Prostate Normal [facility] Comment on above: Performed By: #### 1 [id number] ####[facility] [address] [place] [address] PH Specimen 8 L Lat Bse Prost Normal [facility] Comment on above: Performed By: #### 1 [id number] ####[facility] [address] [place] [address] PH Specimen 9 L Mid Prostate Normal [facility] Comment on above: Performed By: #### 1 [id number] ####[facility] [address] [place] [address] PH Type of Service Technical Only Normal [facility] Comment on above: Performed By: #### 1 [id number] ####[facility] [address] [place] [address] Ambulatory Visit Summaryon 0 11-27-2023 Ambulatory Visit Summary DAT LOPEZ :1960 Visit Date:11/27/2023 Ambulatory Visit Instructions Your Diagnosis Elevated PSA Prostate nodule History of kidney stones BPH with obstruction/lower urinary tract symptoms History of bladder cancer Erectile dysfunction Your Care Team Attending Physician - SANKET [...] PRECIADO, Pelon Mujica Where: [facility] Patient Educationon 11-27-19 Patient Education Oncology Transrectal [...] near your rectum, especially while sitting. ? [place]-colored urine due to small amounts of blood in your urine. ? A burning feeling while urinating. ? Blood in your stool (feces) or bleeding from your rectum. ? Blood in your semen. Follow these instructions at home: Medicines ? Take pfdo-dmd-fbohmdj and prescription medicines only as told by [...] provider. Document Revised: 05/01/2022 Document Reviewed: 05/01/2022 [employer] Patient Education ? 2022 [employer] Kenneth [facility] Urology Office/Clinic Noteon 11-27-2023 Urology Office/Clinic Note [...] When Contact Information SANKET PRECIADO, Pelon Mujica, URJames [facility] [address], [place] [phone] Additional Instructions: review path on 12/14/23 Patient Education Transrectal Ultrasound-Guided Prostate Biopsy, Care After ISahra, personally scribed for Dr. Coles on (more content not included)... [facility] Comment on above: Result Comment: Elec tronically Signed By: Pelon COLES MD\.br\Date and Time Signed: 11/27/23 16:43 EST\.br\Electronically Co-Signed By: Sahra Daugherty\.br\Date and Time Co-Signed: 11/27/23 16:39 EST Insurance Correspondenceon 0 11-26-2023 Insurance Correspondence [id number]#1.00TIF F [facility] Ambulatory Visit Summaryon 1 01-15-2023 Ambulatory Visit Summary DAT LOPEZ James :1960 Visit Date:11/14/2023 Ambulatory Visit Instructions Your [...] Mujica Where: [facility] [employer] [address] [place] [address] [place] [address]- \.br\ Medications\.br \ What How Much When [...] choosing us for your care.\.br\ \.br\ Kishore [facility] General Surgery Office/Clini c Noteon [...] virus vaccine, inactivated 07/2023 Recorded SARS-CoV-2 (COVID-19) mRNAMUL.ORD![id number] 08/13/2022 Recorded influenza virus vaccine, inactivated 07/26/2022 Recorded SARS-CoV-2 (COVID-19) mRNA BNT-162b2 vax 10/23/2021 Recorded influenza virus vaccine, inactivated 08/10/2021 Recorded SARS-CoV-2 (COVID-19) Ad26 vaccine 04/15/2021 Recorded SARS-CoV-2 (COVID-19) Ad26 vaccine 03/25/2021 Recorded SARS-CoV-2 (COVID-19) mRNA BNT-162b2 vax 02/15/2021 Recorded SARS-CoV-2 (COVID-19) mRNA BNT-162b2 vax 01/25/2021 Recorded influenza virus vaccine, live, trivalent 07/2019 Re (more content not included)... [facility] Comment on above: Result Comment: Elec tronically Signed By: KARLEY PRECIADO, Duran Mujica\andreina\Date and Time Signed: 11/14/23 14:57 EST Reminderson 11-14-2023 Reminders - From: Ifrah Ritter LPN To: N - Clinical; Sent: 11/14/2023 14:53:21 EST Show up: 10/01/2028 07:00:00 EST Subject: colonoscopy recall Due Date/Time: 10/31/2028 07:00:00 EST Reminder/Recall Patient due for surveillance colonoscopy 10/31/2028 due to polyp not retrieved (2022)/history of colon polyps. [facility] Outside Colonoscopyon 2022 Outside Colonoscopy [id number]#1.00TIFF [facility] Pathology Noteon 11-06-2023 Pathology Note [id number]#1.00TIFF [facility] Ambulatory Visit Summaryon 1 12-30-2022 Ambulatory Visit Summary DAT LOPEZ :1960 Visit Date:10/29/2023 Ambulatory Visit Instructions Your Diagnosis History of kidney stones Elevated PSA BPH with obstruction/lower urinary tract symptoms Prostate nodule History of bladder cancer Erectile dysfunction Tests Performed Urnls Dip Stick Auto w/o Microscopy POC 13382 Your Care Team Attending Physician - SANKET [...] Pelon COLES MD Where: [facility] [address] [place] [address] [place] [address]- \.br\ You Need to Schedule the Following Appointments\.b r\ Follow Up with Pelon COLES MD, URL When: \.br\ Comments:\.br\ Scheduled for TRUS/bx on 11/27/23.\.br\ Where:\.br\ [facility] [address]br\ [place] [address]-\.br\ Medications\.br \ What How Much When Instructions\.b [...] Urnls Dip Stick Auto w/o Microscopy POC 95033 (10/29/2023)\.b r\ Bilirubin Urine Dipstick - Negative\.br\ Blood Urine Dipstick - Negative\.br\ Glucose Urine Dipstick - Negative\.br\ Ketones Urine Dipstick - Negative\.br\ Leukocytes Urine Dipstick - Negative\.br\ Nitrite Urine Dipstick - Negative\.br\ Protein Urine Dipstick - Trace\.br\ Specific [place] Urine Dipstick - 1.020\.br\ Urine Appearance Urine [...] for choosing us for your care.\.br\ \.br\ [facility] Urology Office/Clinic Noteon 10-29-2023 Urology Office/Clinic Note Chief Complaint prostate nodule HPI Staff Pt is here today with questions concerning TRUS Bx vs Fusion Bx. Previous dx of hx of kidney stones, elevated PSA, BPH with obstruction/LUTS (Rezu 12/2019), prostate nodule, hx of bladder cancer [...] URL [facility] [address], [place] [address]- Additional Instructions: Scheduled for TRUS/bx on 11/27/23. [...] Depression Diabetes (more content not included)... Normal [facility] Comment on above: Result Comment: Elec tronically Signed By: Pelon COLES MD\.br\Date and Time Signed: 10/29/23 15:44 EST\.br\Electronically Co-Signed By: Va Rivers.br\Date and Time Co-Signed: 10/29/23 15:42 EST Consent for Procedure/Surger yon 10-09-2023 Consent for Procedure/Surgery [id number]#1.00TIFF [facility] Insurance Correspondenceon 1 12-08-2022 Insurance Correspondence [id number]#1.00TIFF [facility] Ambulatory Visit Summaryon 1 12-05-2022 Ambulatory [...] Mujica Where: [facility] [address] [place] [id number]- \.br\ Medications\.br \ What How Much When [...] for choosing us for your care.\.br\ \.br\ [facility] RAD - MRI Reporton RAD - MRI Report [id number]#1.00TIFF Normal [facility] Reminderson 09-14-2023 Reminders - From: Nelida Ortiz To: RUCHI - Johnie Coles; Cc: Nelida Ortiz; Sent: 08/09/2023 16:23:35 EDT Show up: 02/18/2024 16:23:00 EDT Subject: MRI of prostate Due Date/Time: 03/10/2024 16:23:00 EDT Reminder/Recall Pt is due for MRI of prostate w/wo in March 2024. pt ended up having it done Aug 2023. see message re: results for PRW plan. Normal [facility] MR prostate wo/w conon 09-11 MR prostate wo/w con [facility] Main [address] [address] MRI Report Signed Patient: Dat Lopez JR MR#: [id number] : 1960 Acct:[id number] Age/Sex: 63 / M ADM Date: 09/11/23 Loc: MR Room: Type: REG CLI Attending Dr: Pelon Coles MD Copies to: [...] Boston Jr., D.O.09/11/2023 4:28 PM Dictation Location: RADIO-PC-14 Transcribed By: [facility] 09/11/231627 Dictated By: Mitul Boston Jr, DO 09/11/231620 Signed By: 09/11/231627 [facility] Insurance Correspondenceon 0 06-26-2023 Insurance Correspondence [id number]#1.00CD:1 27 [facility] UroVysion Fish and Urine Cyt o ([facility])on 06-25-2023 UVFISH & UC Diagnosis Info Invalid Interpretation Code [facility] Comment on above: Result Comment: A:Ur [...] cytology, and continued follow-up are recommended.* CPT 72415, 49864. Microscopic Notes - Microscopic Notes - Abnormal cells 9p21 deletions: Abnormal cells aneploid events: Total cells analyzed: 3 Hematuria: Gross Description Site ID:A color Yellow fixative Alcohol Received 80 mls of clear yellow fluid with the patient's name and, Urine on the vial. Electronically signed by : on: 06/25/2023 10:51:09 Performed By: #### 1 [id number] ####[facility] [address] [place] [address] Consent for Procedure/Surger yon 06-12-2023 Consent for Procedure/Surgery [id number]#1.00CD:12 7 Normal [facility] Consent for Treatmenton - Consent for Treatment [id number]#1.00CD:12 7 Normal [facility] IntraOperative Documentson 0 06-12-2023 IntraOperative Documents [id number]#1.00CD:12 7 [facility] Main OR Intraoperative Recor don 06-12-2023 Main OR Intraoperative Record IntraOp Document Type FTURO Summary Primary Physician: Pelon COLES MD Finalized Date/Time: 06/12/23 12:24:53 Pt. Name: JOHN DATWILBER Ramirez D.O.B./Sex: 1960 Male Med Rec #: [id number] Physician: Pelon COLES MD Financial #: [id number] Pt. Type: O Room/Bed: / Admit/Disch: 06/12/23 11:49:37 - Institution: Case Times FTURO Entry 1 Patient Times In Room 06/12/23 12:10:00 Out Room 06/12/23 12:30:00 Procedure Times Start 06/12/23 12:17:00 Stop 06/12/23 12:25:00 Anesthesia Times Last Modified By: Sandra WHALEY, ALIREZAOR, Jazmyne 06/12/23 12:23:16 Case Attendance FTURO Entry 1 Entry 2 Entry 3 Case Attendee SANKET PRECIADO, Pelon Flores RN, CNOR, Tomas KEYES, Malena Samano Role Performed Surgeon - Primary Bakery Sales Clerk - Primary Scrub - Primary Time In 06/12/23 12:10:00 06/12/23 12:10:00 06/12/23 12:10:00 Time Out 06/12/23 12:30:00 06/12/23 12:30:00 06/12/23 12:30:00 Procedure CYSTOSCOPY LOCAL(.) CYSTOSCOPY LOCAL(.) CYSTOSCOPY LOCAL(.) Comments Last Modified By: Sandra RN, CNOR, Sandra WHALEY, CNOR, Sandra WHALEY, CNOR, Jazmyne 06/12/23 Jazmyne 06/12/23 Jazmyne 06/12/23 12:23:17 12:23:17 12:23:17 General Comments: a votino radiologic technologist chief observing in room Surgical Procedures FTURO Entry [...] Position Verified Availability Implant, Medication Time Out SANKET PRECIADO, ePlon Mujica, Verified (If Participants AUDRA Flores RN, Applicable) Tomas Samano CST, Malena Partida Time Out Complete 06/12/23 12:14:00 Allergies Reviewed? [...] By: AUDRA Flores RN, Ruthann 06/12/23 12:24 [facility] Main OR Preoperative Recordo n 07-25-2023 Main OR Preoperative Record Holding Area Document Type FTURO Summary Primary Physician: Pelon COLES MD Finalized Date/Time: 06/12/23 12:21:21 Pt. Name: DAT LOPEZ /Sex: 1960 Male Med Rec #: [id number] Physician: Pelon COLES MD Financial #: [id number] Pt. Type: O Room/Bed: / Admit/Disch: 06/12/23 [...] of Pain: No ambulation Skin Integrity Intact, [place]s, Warm, & Dry Vitals - EU Blood [...] AUDRA Flores RN, Ruthann 06/12/23 12:21 Normal [facility] Operative Reporton Operative Report Patient: SAMANTHA [...] with antibiotic coverage, Follow up arranged. Normal [facility] Comment on above: Result Comment: Elec tronically Signed By: Pelon COLES MD\.br\Date and Time Signed: 06/12/23 12:31 EDT Outpatient Surgery Discharge Instructionon 06-12-2023 Outpatient Surgery Discharge Instruction [id number]#1.00CD:12 7 Normal [facility] UroVysion Fish and Urine Cyt o ([facility])on 06-12-2023 [facility] Method of Extraction Voided Normal [facility] Comment on above: Performed By: #### 1 [id number] ####[facility] [address] [place] [address] [facility] Number of Jars 1 Invalid Interpretation Code [facility] Comment on above: Performed By: #### 1 [id number] ####[facility] [address] [place] [address] [facility] Specimen Urine Normal [facility] Comment on above: Performed By: #### 1 [id number] ####[facility] [address] [place] [address] [facility] Type of Service Technical Only Normal [facility] Comment on above: Performed By: #### 1 [id number] ####[facility] [address] [place] [address] Lab Reportson 06-11-2023 Lab Reports [id number]#1.00CD:12 7 Normal [facility] XR KUB 1 VIEWon 02-23-2023 XR [...] by: GEMA OTTO Date: 2023-02-23 06:58 Normal [facility] XR LSPINE 2_3 VIEWSon 2022 [...] for further evaluation. Electronically authenticated by: GEMA PASTORBOBBYSTEF Date: 2023-02-23 07:[address] [facility] CBC AUTO DIFFon 02-22-2023 BASO # 0.0 103/ul Normal 0.0-0.1 [facility] Comment on above: Performed By: #### C BC #### [facility] [address] [address] [address] Nikky Man Basophils/100 WBC (Bld) 0.3 % Normal 0.2-2.0 [facility] Comment on above: Performed By: #### C BC #### [facility] [address] [address] [address] Nikky Man EO # 0.2 103/ul Normal 0.0-0.7 [facility] Comment on above: Performed By: #### C BC #### [facility] [address] [address] [address] Nikky Man Eosinophils/100 WBC (Bld) 3.0 % Normal 0.9-7.0 [facility] Comment on above: Performed By: #### C BC #### [facility] [address] [address] [address] Nikky Man Erythrocyte distribution width (RBC) [Ratio] 14.1 % Normal 11.0-15.0 [facility] Comment on above: Performed By: #### C BC #### [facility] [address] [address] [address] Nikky Man Hematocrit (Bld) [Volume fraction] 40.4 % Critically low 42.0-54.0 [facility] Comment on above: Performed By: #### C BC #### [facility] [address] [address] [address] Nikky Man Hemoglobin (Bld) [Mass/Vol] 13.3 g/dL Critically low 14.0-18.0 [facility] Comment on above: Performed By: #### C BC #### [facility] [address] [address] [address] Nikky Man IG # 0.02 10e3/ul Normal 0.00-0.03 [facility] Comment on above: Performed By: #### C BC #### [facility] [address] [place] [address] Dr. Nikky Man IG % 0.3 % Normal 0.0-0.5 [facility] Comment on above: Performed By: #### C BC #### [facility] [address] [place] [address] Dr. Nikky Man LYMPH # 1.6 103/ul Normal 1.2-3.8 [facility] Comment on above: Performed By: #### C BC #### [facility] [address] [place] [address] Dr. Nikky Man Lymphocytes/100 WBC (Bld) 23.3 % Normal 20.5-60.0 [facility] Comment on above: Performed By: #### C BC #### [facility] [address] [place] [address] Dr. Nikky Man MANUAL DIFF REQ NO Normal [facility] Comment on above: Performed By: #### C BC #### [facility] [address] [place] [address] Dr. Nikky Man MCH (RBC) [Entitic mass] 26.3 pg Normal 25.9-34.0 [facility] Comment on above: Performed By: #### C BC #### [facility] [address] [place] [address] Dr. Nikky Man MCHC (RBC) [Mass/Vol] 32.9 g/dL Normal 29.9-35.2 [facility] Comment on above: Performed By: #### C BC #### [facility] [address] [place] [address] Dr. Nikky Man MCV (RBC) [Entitic vol] 80.0 fL Normal 80.0-94.0 [facility] Comment on above: Performed By: #### C BC #### [facility] [address] [place] [address] Dr. Nikky Man MONO # 0.4 103/ul Normal 0.3-0.8 [facility] Comment on above: Performed By: #### C BC #### [facility] [address] [address] [address] Nikky Man Monocytes/100 WBC (Bld) 5.8 % Normal 1.7-12.0 [facility] Comment on above: Performed By: #### C BC #### [facility] [address] [address] [address] Nikky Man NEUT # 4.7 103/ul Normal 1.4-6.5 [facility] Comment on above: Performed By: #### C BC #### [facility] [address] [place] [address] Dr. Nikky Man Neutrophils/100 WBC (Bld) 67.3 % Normal 43.0-75.0 [facility] Comment on above: Performed By: #### C BC #### [facility] [address] [place] [address] Dr. Nikky Man Platelet mean volume (Bld) [Entitic vol] 9.0 fL Critically low 9.5-13.5 [facility] Comment on above: Performed By: #### C BC #### [facility] [address] [place] [address] Dr. Nikky Man PLT 154 103/ul Normal 150-[address] [facility] Comment on above: Performed By: #### C BC #### [facility] [address] [place] [address] Dr. Nikky Man RBC 5.05 106/ul Normal 4.70-6.[address] [facility] Comment on above: Performed By: #### C BC #### [facility] [address] [place] [address] Dr. Nikky Man WBC 6.9 103/ul Normal 4.0-11.[address] [facility] Comment on above: Performed By: #### C BC #### [facility] [address] [place] [address] Dr. Nikky Man GLYCOHEMOGLOBIN A1Con 2022 ADA RECOMMENDATION SEE BELOW Normal [facility] Comment on above: Result Comment: ADA RECOMMENDED LIMIT 4.0 - 6.0 ADA THERAPEUTIC TARGET < 7.0 ACTION SUGGESTED > 7.0 Performed By: #### A 1C #### [facility] [address] [address] [address] Nikky Mna Glucose [Mass/Vol] 137 mg/dL Normal [facility] Comment on above: Performed By: #### A 1C #### [facility] [address] [place] [address] Dr. Nikky Man HbA1c (Bld) [Mass fraction] 6.4 % Critically high 4.5-6.2 [facility] Comment on above: Performed By: #### A 1C #### [facility] [address] [place] [address] Dr. Nikky Man LIPID PROFILEon 02-22-2023 CHOL-HDL RATIO NORM SEE BELOW Normal [facility] Comment on above: Result Comment: 3.3 - 4.4 LOW RISK 4.4 - 7.1 AVERAGE RISK 7.1 - 11.0 MODERATE RISK >11.0 HIGH RISK Performed By: #### C MP, LIPID #### [facility] [address] [place] [address] Dr. Nikky Man Cholesterol [Mass/Vol] 135 mg/dL Normal <=[address] [facility] Comment on above: Performed By: #### C MP, LIPID #### [facility] [address] [place] [address] Dr. Nikky Man Cholesterol in HDL [Mass/Vol] 30 mg/dL Critically low 40-60 [facility] Comment on above: Performed By: #### C MP, LIPID #### [facility] [address] [place] [address] Dr. Nikky Man Cholesterol in LDL [Mass/Vol] 50.6 mg/dL Normal [facility] Comment on above: Performed By: #### C MP, LIPID #### [facility] [address] [place] [address] Dr. Nikky Man Cholesterol.total /Cholesterol in HDL [Mass ratio] 4.5 {ratio} Normal [facility] Comment on above: Performed By: #### C MP, LIPID #### [facility] [address] [place] [address] Dr. Nikky Man HDL NORMAL > or = 60 mg/dl - LO W CARDIOVASCULAR RISK <40 mg/dl - HIGH CARDIOVASCULAR RISK Normal [facility] Comment on above: Performed By: #### C MP, LIPID #### [facility] [address] [place], [place] [address] Dr. Nikky Man LDL CALC NORMAL SEE BELOW Normal [facility] Comment on above: Result Comment: <100 mg/dl OPTIMAL 100 - 129 mg/dl NEAR OR ABOVE OPTIMAL 130 - 159 mg/dl BORDERLINE HIGH 160 - 189 mg/dl HIGH >190 mg/dl VERY HIGH Performed By: #### C MP, LIPID #### [facility] [address] [place], [place] [address] Dr. Nikky Man Triglyceride [Mass/Vol] 272 mg/dL Critically high <=[address] [facility] Comment on above: Performed By: #### C MP, LIPID #### [facility] [address] [address] [address] Nikky Man VLDL CALC 54.4 mg/dL Normal [facility] Comment on above: Performed By: #### C MP, LIPID #### [facility] [address] [place], [place] [address] Dr. Nikky Man MICROALBUMIN, RAND URon 04-0 mALB 13.2 mg/L Normal <=30.[address] [facility] Comment on above: Performed By: #### M ALBR #### [facility] [address] [place], [place] [address] Dr. Nikky Man PROF 14(COMP METB)on 023 Albumin [Mass/Vol] 3.9 g/dL Normal 3.4-5.0 [facility] Comment on above: Performed By: #### C MP, LIPID #### [facility] [address] [id number] Nikky Man Albumin/Globulin [Mass ratio] 1.2 {ratio} Normal [facility] Comment on above: Performed By: #### C MP, LIPID #### [facility] [address] [place], [place] [address] Dr. Nikky Man ALP [Catalytic activity/Vol] 87 U/L Normal 46-[address] [facility] Comment on above: Performed By: #### C MP, LIPID #### [facility] [address] [address] [address] Nikky Man ALT [Catalytic activity/Vol] 29 U/L Normal 16-63 [facility] Comment on above: Performed By: #### C MP, LIPID #### [facility] [address] [address] [address] Nikky Man Anion gap [Moles/Vol] 13.2 mmol/L Normal [facility] Comment on above: Performed By: #### C MP, LIPID #### [facility] [address] [address] [address] Nikky Man AST [Catalytic activity/Vol] 19 U/L Normal 15-37 [facility] Comment on above: Performed By: #### C MP, LIPID #### [facility] [address] [address] [address] Nikky Man Bilirubin [Mass/Vol] 0.4 mg/dL Normal 0.2-1.0 [facility] Comment on above: Performed By: #### C MP, LIPID #### [facility] [address] [address] [address] Nikky Man Calcium [Mass/Vol] 9.3 mg/dL Normal 8.5-10.[address] [facility] Comment on above: Performed By: #### C MP, LIPID #### [facility] [address] [address] [address] Nikky Man Chloride [Moles/Vol] 103 mmol/L Normal 98-[address] [facility] Comment on above: Performed By: #### C MP, LIPID #### [facility] [address] [address] [address] Nikky Man CO2 [Moles/Vol] 28.7 mmol/L Normal 21.0-32.0 [facility] Comment on above: Performed By: #### C MP, LIPID #### [facility] [address] [address] [address] Nikky Man Creatinine [Mass/Vol] 1.54 mg/dL Critically high 0.70-1.30 [facility] Comment on above: Performed By: #### C MP, LIPID #### [facility] [address] [address] [address] Nikky Man EGFR-AF PALESTINIAN 56 mL/min/1.73m2 Critically low >=60 [facility] Comment on above: Performed By: #### C MP, LIPID #### [facility] [address] [address] [address] Nikky Man EGFR-NON AF PALESTINIAN 46 mL/min/1.73m2 Critically low >=60 [facility] Comment on above: Performed By: #### C MP, LIPID #### [facility] [address] [address] [address] Nikky Man Globulin (S) [Mass/Vol] 3.2 g/dL Normal [facility] Comment on above: Performed By: #### C MP, LIPID #### [facility] [address] [address] [address] Nikky Man Glucose [Mass/Vol] 179 mg/dL Critically high 74-106 [facility] Comment on above: Performed By: #### C MP, LIPID #### [facility] [address] [address] [address] Nikky Man Potassium [Moles/Vol] 4.9 mmol/L Normal 3.5-5.1 [facility] Comment on above: Performed By: #### C MP, LIPID #### [facility] [address] [address] [address] Nikky Man Protein [Mass/Vol] 7.1 g/dL Normal 6.4-8.[address] [facility] Comment on above: Performed By: #### C MP, LIPID #### [facility] [address] [address] [address] Nikky Man Sodium [Moles/Vol] 140 mmol/L Normal 136-[address] [facility] Comment on above: Performed By: #### C MP, LIPID #### [facility] [address] [address] [address] Nikky Man Urea nitrogen [Mass/Vol] 20.0 mg/dL Critically high 7.0-18.0 [facility] Comment on above: Performed By: #### C MP, LIPID #### [facility] [address] [id number] Nikky Man Urea nitrogen/Creatini ne [Mass ratio] 13.0 mg/mg Normal [facility] Comment on above: Performed By: #### C MP, LIPID #### [facility] [address] [address] Nikky Man XR femur RT 2V*on 02-14-2023 XR femur RT 2V* [facility] [place] [address] [place] [address] XRay Report Signed Patient: Dat Lopez JR MR#: [id number] : 1960 Acct:[id number] Age/Sex: 62 / M ADM Date: 02/14/23 Loc: [facility] Room: Type: [facility] Attending Dr: Alfonzo Ashford II, MD Copies [...] seen. Impression dictated by: Mitul Boston Jr., D.O.02/14/2023 4:22 PM Dictation Location: [address] [place] [address] Transcribed By: [facility] 02/14/231621 Dictated By: Mitul Boston Jr, DO 02/14/23 162 Signed By: 02/14/23 162 Normal [facility] XR femur RT 2V* [facility] [employer] Other XR femur RT 2V* [facility] [place] [employer] Other XR femur RT 2V* [address] [facility] No rt [employer] Other XR femur RT 2V* [place] [address] N [facility] [employer] Other XR femur RT 2V* XRay Report [employer] Other XR femur RT 2V* Signed [employer] Other XR femur RT 2V* Patient: Tk Lopez JR MR#: [id number] [employer] Other XR femur RT 2V* [address] [employer] Other XR femur RT 2V* : 1960 Acct:[id number] [employer] Other XR femur RT 2V* Age/Sex: 62 / M ADM Date: 02/14/23 [employer] Other XR femur RT 2V* Loc: [facility] Room: Type : [facility] [employer] Other XR femur RT 2V* Attending Dr: Alfonzo Ashford II, MD [employer] Other XR femur RT 2V* Copies to: Alfonzo Ashford MD [employer] Other XR femur RT 2V* Ordering Provider: Sil Ashford MD [employer] Other XR femur RT 2V* Date of Service: 02/14/23 [employer] Other XR femur RT 2V* XR/XR femur RT 2V*: Post-traumatic osteoarthritis of right knee [employer] Other XR femur RT 2V* Right femur 2 views. [employer] Other XR femur RT 2V* Reason for exam: Follow-up ORIF right femur fracture. [employer] Other XR femur RT 2V* COMPARISON: Right kn ee series 12/14/2022 [employer] Other XR femur RT 2V* FINDINGS: Hardware fixation is seen involving the mid to distal femur without evidence of hardware [employer] Other XR femur RT 2V* complication. No acu te fracture line is noted. Residual deformity seen from a prior fracture [employer] Other XR femur RT 2V* involving the mid fe mur. Visualized knee joint demonstrates degenerative change. Right hip joint [employer] Other XR femur RT 2V* demonstrates minimal degenerative change. [employer] Other XR femur RT 2V* X R/XR femur RT 2V* [employer] Other XR femur RT 2V* IMPRESSION: No evide nce of hardware complication. No acute fracture line is seen. [employer] Other XR femur RT 2V* Impression dictated by: Mitul Boston Jr., D.O.02/14/2023 4:22 PM [employer] Other XR femur RT 2V* Dictation Location: [place] [address] [employer] Other XR femur RT 2V* Transcribed By: PWS 02/14/23 [facility] [employer] Other XR femur RT 2V* Dictated By: Mitul Boston Jr, DO 02/14/23 [facility] [employer] Other XR femur RT 2V* Signed By: [employer] [facility] [place] [employer] Other XR femur RT 2V* 02/14/23 [facility]7 [employer] Other XR knee RT 4V*on 12-14-2022 XR knee RT 4V* [facility] [place] [address] [place] [address] XRay Report Signed Patient: Dat Lopez JR MR#: [id number] : 1960 Acct:[id number] Age/Sex: 62 / M ADM Date: 12/14/22 Loc: [facility] Room: Type: [facility] Attending Dr: Alfonzo Ashford II, MD Copies to: Alfonzo Ashford MD Ordering Provider: Alfonzo Ashford MD Date of Service: 12/14/22 XR/XR hip LT min 2V(w/wo pelvis)*: Left hip pain ([id number]) XR/XR knee RT 4V*: Acute pain of [...] Boston Jr., D.O.12/14/2022 3:37 PM Dictation Location: [place] [address] Transcribed By: [facility] 12/14/22 1537 Dictated By: Mitul Boston Jr, DO 12/14/22 1534 Signed By: 12/14/22 153 [facility] XR knee RT 4V* [facility] [employer] [place] Other XR knee RT 4V* [facility] Main [facility] [employer] Other XR knee RT 4V* [address] [facility] [employer] Other XR knee RT 4V* [place] [address] rt [employer] Other XR knee RT 4V* XRay Report [employer] Other XR knee RT 4V* Signed [employer] Other XR knee RT 4V* Patient: Tk Lopez JR MR#: [id number] [employer] Other XR knee RT 4V* [address] [employer] Other XR knee RT 4V* : 1960 Acct:[id number] [employer] Other XR knee RT 4V* Age/Sex: 62 / M ADM Date: 12/14/22 [employer] Other XR knee RT 4V* Loc: [facility] Room: Type : [facility] [employer] Other XR knee RT 4V* Attending Dr: Alfonzo Ashford II, MD [employer] Other XR knee RT 4V* Copies to: Alfonzo Ashford MD [employer] Other XR knee RT 4V* Ordering Provider: Sil Ashford MD [employer] Other XR knee RT 4V* Date of Service: 12/14/22 [employer] Other XR knee RT 4V* XR/XR hip LT min 2V(w/wo pelvis)*: Left hip pain [employer] Other XR knee RT 4V* ([id number]) XR/XR knee RT 4V*: Acute pain of right knee [employer] Other XR knee RT 4V* LEFT HIP - 2 views: Right knee 4 views [employer] Other XR knee RT 4V* CLINICAL HISTORY: Le ft hip pain for months. Groin pain. [employer] Other XR knee RT 4V* COMPARISON: None [employer] Other XR knee RT 4V* FINDINGS: Left hip: No acute bony process or significant degenerative change of the hips. [employer] Other XR knee RT 4V* Right knee: Partiall y visualized hardware is seen involving the distal femur without evidence of [employer] Other XR knee RT 4V* hardware complicatio n. No acute bony process is seen. Small knee joint effusion. Mild [employer] Other XR knee RT 4V* Degenerative changes with weightbearing and patellofemoral joint space narrowing. [employer] Other XR knee RT 4V* X R/XR hip LT min 2V(w/wo pelvis)* [employer] Other XR knee RT 4V* IMPRESSION: [employer] Other XR knee RT 4V* MILD DEGENERATIVE CH ANGES OF THE RIGHT KNEE WITHOUT ACUTE BONY PROCESS.. [employer] Other XR knee RT 4V* Impression dictated by: Mitul Boston Jr., D.O.12/14/2022 3:37 PM [employer] Other XR knee RT 4V* Dictation Location: [facility] [employer] Other XR knee RT 4V* Transcribed By: KI 12/14/22 [facility] [employer] Other XR knee RT 4V* Dictated By: Mitul Boston Jr DO 12/14/22 [facility] [employer] Other XR knee RT 4V* Signed By: [employer] Other XR knee RT 4V* 12/14/22 1537 [employer] Other PSA, FREE AND TOTAL RATIOon 12-06-2022 % Free PSA 28.4 % Normal [facility] Comment on above: Result Comment: The [...] men. Performed By: #### P SAFREE #### [facility] [address] [address] [address] Nikky Man Prostate specific Ag [Mass/Vol] 10.5 ng/mL Critically high 0.0-4.0 [facility] Comment on above: Result Comment: Inderjit LO methodology. . According to the [place] [employer], Serum PSA should decrease and [...] disease. Performed By: #### P SAFREE #### [facility] [address] [address] [address] Nikky Man PSA, Free 2.98 ng/mL Normal N/A [facility] Comment on above: Result Comment: Inderjit LO methodology. Performed By: #### P SAFREE #### [facility] [address] ABD/PELVIS WO CONon [...] by: GEMA OTTO Date: 2022-09-27 15:14 [facility] Office Visit (URFMOB ) ----- DAT LOPEZ ([id number]) 1960 M Date Time Provider Department 09/26/22 [...] patient: Yes Procedure confirmed with physician and field support specialist: Yes Sign In: History and Physical Exam [...] care C (more content not included)... Normal [facility] UA DIP, URINE (POC)on 2021 BILIRUBIN UA (POCT) Negative Negative [facility] CLARITY UA (POCT) Cloudy [facility] COLOR UA (POCT) Yellow [facility] GLUCOSE UA (POCT) Negative Negative mg/dL [facility] HEMOGLOBIN/BLOOD UA (POCT) Large Abnormal Negative [facility] KETONE UA (POCT) Negative Negative mg/dL [facility] LEUKOCYTES UA (POCT) Small Abnormal Negative [facility] NITRITE UA (POCT) Negative Negative [facility] PH UA (POCT) 5.5 4.5 - 8.0 [facility] Protein Ql (U) 30 mg/dL Abnormal Negative mg/dL [facility] SPECIFIC GRAVITY UA (POCT) 1.020 1.005 - 1.030 [facility] UROBILINOGEN UA (POCT) 0.2 E.U./dL Normal E.U./dL [facility] Basic metabolic 2000 panelon 09-12-2022 Anion gap [Moles/Vol] 9 mmol/L Normal 9-18 [facility] Comment on above: Order Comment: Speci men Type: BLOOD SPECIMENOrdering Facility: [facility] Address: [address] [place] [address] Performed By: #### 2 4321-2 ####[facility] [id number] [place] [address] [place] Calcium [Mass/Vol] 8.6 mg/dL Normal 8.5-10.2 [facility] Comment on above: Order Comment: Speci men Type: BLOOD SPECIMENOrdering Facility: [facility] Address: [address] [place] [address] Performed By: #### 2 4321-2 ####[facility] [id number] [place] [address] [place] Chloride [Moles/Vol] 106 mmol/L High 97-105 [facility] Comment on above: Order Comment: Speci men Type: BLOOD SPECIMENOrdering Facility: [facility] Address: [address] [place], [place] [id number] Performed By: #### 2 4321-2 ####[facility] [id number] [place] [address] [place] CO2 [Moles/Vol] 24 mmol/L Normal 22-30 [facility] Comment on above: Order Comment: Speci men Type: BLOOD SPECIMENOrdering Facility: [facility] Address: [address] [place], [place] [id number] Performed By: #### 2 4321-2 ####[facility] LAB[facility]ATORY[facility] [id number] [place] [address] [place] Creatinine [Mass/Vol] 1.75 mg/dL High 0.73-1.22 [facility] Comment on above: Order Comment: Demar arrington Type: BLOOD SPECIMENOrdering Facility: [facility] Address: [address] [address] Performed By: #### 2 4321-2 ####[facility]ATORYCLIA [id number] [address] [place] ESTIMATED GLOMERULAR FILTRATION RATE 44 mL/min/1.73m??? Low >=60 [facility] Comment on above: Order Comment: Demar arrington Type: BLOOD SPECIMENOrdering Facility: [facility] Address: [address] [place] [address] Result Comment: Carole mated Glomerular Filtration Rate [...] actual GFR. Performed By: #### 2 4321-2 ####[facility]ATORYCLIA [id number] [place] [address] [place] Glucose [Mass/Vol] 169 mg/dL High 74-99 [facility] Comment on above: Order Comment: Demar arrington Type: BLOOD SPECIMENOrdering Facility: [facility] Address: [address] [place] [address] Result Comment: The [place] Diabetes Association (ADA) provides guidance for cutoff [...] Standards of Medical Care in Diabetes 2016, [place] Diabetes Association. Diabetes Care. 2016.39(Suppl 1). Performed By: #### 2 4321-2 ####[facility]ORATORYCLIA [id number] [place] [address] [place] Potassium [Moles/Vol] 4.7 mmol/L Normal 3.7-5.1 [facility] Comment on above: Order Comment: Speci men Type: BLOOD SPECIMENOrdering Facility: [facility] Address: [address] [place] [address] Performed By: #### 2 4321-2 ####[facility] LABORATORYCLIA [id number] [address] [place] Sodium [Moles/Vol] 139 mmol/L Normal 136-144 [facility] Comment on above: Order Comment: Speci men Type: BLOOD SPECIMENOrdering Facility: [facility] Address: [address] [place] [address] Performed By: #### 2 4321-2 ####[facility] LABORATORYCLIA [id number] [place] [address] [place] Urea nitrogen [Mass/Vol] 26 mg/dL High 9-24 [facility] Comment on above: Order Comment: Speci men Type: BLOOD SPECIMENOrdering Facility: [facility] Address: [address] [place] [address] Performed By: #### 2 4321-2 ####[facility] LABORATORYCLIA [id number] [place] [address] [place] CBC panel Auto (Bld)on 09-12 Erythrocyte distribution width (RBC) [Ratio] 13.4 % Normal 11.5-15.0 [facility] Comment on above: Order Comment: Speci men Type: BLOOD SPECIMEN [facility]ing Facility[facility] Address: [address] [place] [address] Performed By: #### 5 8410-2 #### [facility] CLIA [id number] [address] [facility] [address] OF [facility] Hematocrit (Bld) [Volume fraction] 35.7 % Low 39.0-51.0 [facility] Comment on above: Order Comment: Speci men Type: BLOOD SPECIMEN Ordering Facility: [facility] Address: [address] [place] [address] Performed By: #### 5 8410-2 #### [facility] CLIA [id number] [place] Hemoglobin (Bld) [Mass/Vol] 11.5 g/dL Low 13.0-17.0 [facility] Comment on above: Order Comment: Speci men Type: BLOOD SPECIMEN Ordering Facility: [facility] Address: [address] [place] [address] Performed By: #### 5 8410-2 #### [facility] CLIA [id number] [place] [address] [place] OF [facility] MCH (RBC) [Entitic mass] 26.2 pg Normal 26.0-34.0 [facility] Comment on above: Order Comment: Speci men Type: BLOOD SPECIMEN [facility]ing Facility: [facility] Address: [address] [place] [address] Performed By: #### 5 8410-2 #### [facility] CLIA [id number] [place] MCHC (RBC) [Mass/Vol] 32.2 g/dL Normal 30.5-36.0 [facility] Comment on above: Order Comment: Speci men Type: BLOOD SPECIMEN Ordering Facility: [facility] Address: [address] [place] [address] Performed By: #### 5 8410-2 #### [facility] CLIA [id number] OF [facility] MCV (RBC) [Entitic vol] 81.3 fL Normal 80.0-100.0 [facility] Comment on above: Order Comment: Speci men Type: BLOOD SPECIMEN Ordering Facility: [facility] Address: [address] Performed By: #### 5 8410-2 #### [facility] CLIA [id number] [address] [place] [address] [place] Nucleated RBC (Bld) [#/Vol] 10*3/uL Normal <0.01 [facility] Comment on above: Order Comment: Speci men Type: BLOOD SPECIMEN [facility]ing Facility: [facility] Address: [address] [place], [place] [address] Performed By: #### 5 8410-2 #### [facility] CLIA [id number] [address] [place] [address] [place] Platelet mean volume (Bld) [Entitic vol] 9.3 fL Normal 9.0-12.7 [facility] Comment on above: Order Comment: Speci men Type: BLOOD SPECIMEN [facility]ing Facility: [facility] Address: [address] [place], [place] [address] Performed By: #### 5 8410-2 #### [facility] CLIA [id number] [address] [place] [address] [place] Platelets (Bld) [#/Vol] 134 10*3/uL Low 150-400 [facility] Comment on above: Order Comment: Speci men Type: BLOOD SPECIMEN [facility]ing Facility: [facility] Address: [address] [place], [place] [address] Performed By: #### 5 8410-2 #### [facility] CLIA [id number] [address] [place] [address] [place] RBC (Bld) [#/Vol] 4.39 10*6/uL Normal 4.20-6.00 [facility] Comment on above: Order Comment: Speci men Type: BLOOD SPECIMEN [facility]ing Facility: [facility] Address: [address] [place], [place] [address] Performed By: #### 5 8410-2 #### [facility] CLIA [id number] [address] [place] [address] [place] WBC (Bld) [#/Vol] 9.95 10*3/uL Normal 3.70-11.00 [facility] Comment on above: Order Comment: Speci men Type: BLOOD SPECIMEN Ordering Facility: [facility] Address: [address] [place] [address] Performed By: #### 5 8410-2 #### [facility] CLIA [id number] [facility] [place] [address] [facility] CNDSon 09-12-2022 CNDS HNO ID: [id number] Author: Noelle Vega MD Service: Urology Author Type: Physician Type: Discharge Summary Filed: 09/13/2022 1:41 PM Note Text: [facility] [place] [phone] CC-CARE DISCHARGE SUMMARY Patient Name: Dat Lopez Patient [...] appointments. Valdo Mcghee MD PGY-5, Urology Pager: [phone] [facility] STAFF PHYSICIAN NOTE OF PERSONAL INVOLVEMENT [...] Associate Staff - Urology September 13, 2022 [facility] HISTORY PHYSICALon HISTORY PHYSICAL HNO ID: [id number] Author: Fani Vallejo APRN.SALES SERVICE REPRESENTATIVE Service: Hospital Medicine Author Type: Nurse Practitioner Type: HANDP Filed: 09/12/2022 2:57 AM Note Text: ----- Attestation signed by Constantine Hutchins MD at 09/12/2022 6:02 AM chart reviewed denies ibd/sbo K 5.7 during perioperative period, ekg no peaked t waves compared to prior hold arb kayexalate resume home dose insulin Constantine Hutchnis MD September 12, 2022 6:02 AM ----- DEPARTMENT OF HOSPITAL MEDICINE INITIAL CONSULT SERVICE DATE: 09/11/2022 SERVICE TIME: 7:50 PM Primary Care Physician: Sp Chowdary, DO NIGHT AND WEEKEND COVERAGE: [employer] COVERAGE: Days: [phone], please contact via Monaeo Nights: - floor: please page CC Hospitalist night cover [phone] - 4th floor: please page CC Hospitalist night cover [phone] - 5th floor: please page CC Hospitalist night cover [phone] REASON FOR CONSULT: Hyperkalemia REQUESTING PHYSICIAN: Carmella [...] H P (more content not included)... Normal [facility] NURSING PROGon 09-12-2022 NURSING PROG HNO ID: [id number] Author: Taylor Barr RN Service: Nursing Author [...] discharge orders reviewed with pt understanding. Normal [facility] POTASSIUM BLDon 09-12-2022 Potassium [Moles/Vol] 4.9 mmol/L Normal 3.7-5.1 [facility] Comment on above: Order Comment: Speci men Type: BLOOD SPECIMENOrdering Facility: [facility] Address: [address] [place] [address] Performed By: #### K 1 ####[facility] [id number] [facility] [place] [address] [place] ANES POSTPROC EVALon 022 ANES POSTPROC EVAL HNO ID: [id number] Author: Melisa Rangel MD Service: Anesthesiology Author Type: Anesthesiologist Type: Anesthesia Postprocedure Evaluation Filed: 09/11/2022 1:00 PM Note Text: POST ANESTHESIA EVALUATION NOTE : 1960 Procedure Summary Date: 09/11/22 Room / Location: OR01 / AV OR Anesthesia Start: 731 Anesthesia Stop: 4 Procedure: PERCUTANEOUS NEPHROLITHOTOMY (Left: Kidney) Diagnosis: Nephrolithiasis [...] September 11, 2022 TIME: 1:00 PM CSN: [id number] [facility] ANES PRE-OPon 09-11-2022 ANES PRE-OP HNO ID: [id number] Author: Melisa Rangel MD Service: Anesthesiology Author Type: Anesthesiologist Type: Anesthesia Preprocedure Evaluation Filed: 09/11/2022 7:16 AM Note Text: ANESTHESIOLOGY DAY OF SURGERY NOTE : 1960 Procedure Information Date/Time: 09/11/22729 Procedure: PERCUTANEOUS NEPHROLITHOTOMY (Left: Kidney) Location: OR01 / AV OR Surgeons: Noelle Vega [...] and consent discussed: yes. Patient / Responsible Libertarian agrees to proceed: yes Patient / Surrogate agrees to blood products: Yes Significant changes in the patient condition since the History and Physical, not otherwise documented in primary service progress note: no. Potential Anesthesia issues that may suggest increased risk of complications or contraindication to planned procedure: none. Vitals Value Taken Time BP 176/86 09/11/22 0643 Pulse 65 09/11/22 0643 Resp 16 09/11/22642 Temp 36.3 ?C (97.3 ?F) 09/11/22 06 SpO2 97 % 09/11/22 0643 Facility-Administered Medications as of 09/11/2022 Medication Dose [...] September 11, 2022 TIME: 7:15 AM CSN: [id number] [facility] BRIEF OP NOTon 09-11-2022 BRIEF OP NOT HNO ID: [id number] Author: Roman Ornelas MD Service: Urology Author Type: Fellow Type: Brief Op Note Filed: 09/11/2022 11:27 AM Note Text: UROLOGY SERVICE BRIEF OPERATIVE NOTE LOG ID: [id number] Surgery/Procedure Date: 09/11/2022 Incision/Procedure Start Time: 8:06 AM Incision Close/Procedure End Time: 11:12 AM Patient Age: [age] year old Surgeon(s)/Proceduralist( s) and Manager It Training(s): Surgeon(s) and Role: * Noelle Vega MD [...] x 26cm JJ left ureteral stent [address] Cultures: None Findings: [...] 11, 2022 TIME: 11:21 AM PAGER/CONTACT #: [phone] Normal [facility] Basic metabolic 2000 panelon 09-11-2022 Anion gap [Moles/Vol] 9 mmol/L Normal 9-18 [facility] Comment on above: Order Comment: Speci men Type: BLOOD SPECIMEN [facility] Address: [address] [place] [address] Performed By: #### 5 8410-2 #### [facility] CLIA [id number] [address] [place] [address] [place] Calcium [Mass/Vol] 8.6 mg/dL Normal 8.5-10.2 [facility] Comment on above: Order Comment: Speci men Type: BLOOD SPECIMEN Ordering Facility: [facility] Address: [address] [place] [address] Performed By: #### 5 8410-2 #### [facility] CLIA [id number] [address] [place] [address] [place] Chloride [Moles/Vol] 105 mmol/L Normal 97-105 [facility] Comment on above: Order Comment: Speci men Type: BLOOD SPECIMEN Ordering [facility]: [facility] Address: [address] [place] [address] Performed By: #### 5 8410-2 #### [facility] CLIA [id number] [address] [place] [address] [place] CO2 [Moles/Vol] 22 mmol/L Normal 22-30 [facility] Comment on above: Order Comment: Speci men Type: BLOOD SPECIMEN [facility]: [facility] Address: [address] [place] [address] Performed By: #### 5 8410-2 #### [facility] CLIA [id number] [address] [place] [address] [place] Creatinine [Mass/Vol] 1.67 mg/dL High 0.73-1.22 [facility] Comment on above: Order Comment: Demar arrington Type: BLOOD SPECIMEN Order[facility] Facility: [facility] Address: [address] [id number] Performed By: #### 5 8410-2 #### [facility] CLIA [id number] [address] [place] [address] [place] ESTIMATED GLOMERULAR FILTRATION RATE 47 mL/min/1.73m??? Low >=60 [facility] Comment on above: Order Comment: Demar arrington Type: BLOOD SPECIMEN Ordering Facility: [facility] Address: [address] [place], [place] [address] Result Comment: Carole mated Glomerular Filtration Rate [...] GFR. Performed By: #### 5 8410-2 #### [facility] CLIA [id number] [address] [place] [address] [place] Glucose [Mass/Vol] 214 mg/dL High 74-99 [facility] Comment on above: Order Comment: Demar arrington Type: BLOOD SPECIMEN Ordering Facility: [facility] Address: [address] [place] [address] Result Comment: The [place] Diabetes Association (ADA) provides guidance for cutoff [...] Standards of Medical Care in Diabetes 2016, [place] Diabetes Association. Diabetes Care. 2016.39(Suppl 1). Performed By: #### 5 8410-2 #### [facility] CLIA [id number] [address] [place] [address] [place] Potassium [Moles/Vol] 5.7 mmol/L High 3.7-5.1 [facility] Comment on above: Order Comment: Speci men Type: BLOOD SPECIMEN [facility] Address: [address] [place] [address] Performed By: #### 5 8410-2 #### [facility] CLIA [id number] [address] [place] [address] [place] Sodium [Moles/Vol] 136 mmol/L Normal 136-144 [facility] Comment on above: Order Comment: Speci men Type: BLOOD SPECIMEN [facility] Address: [address] [place] [address] Performed By: #### 5 8410-2 #### [facility] CLIA [id number] [address] [place] [address] [place] Urea nitrogen [Mass/Vol] 20 mg/dL Normal 9-24 [facility] Comment on above: Order Comment: Speci men Type: BLOOD SPECIMEN [facility] Address: [address] [place] [address] Performed By: #### 5 8410-2 #### [facility] [place] [id number] [address] [place] [id number] [place] CALCULI ANALYSISon 2 Calculus analysis [Interp] Normal [facility] Comment on above: Order Comment: Speci men Type: CALCULUS SPECIMENOrdering Facility: [facility] Address: [address] [place] [address] Result Comment: This test was developed and its performance characteristics determined by [facility]'s Alfonzo Mindi [facility] Pathology and Laboratory Medicine [place] ([facility]). It has not been cleared or approved by the FDA. -[facility] is regulated under CLIA as qualified to perform high-complexity testing. This test is used for clinical purposes. It should not be regarded as investigational or for research. Performed By: #### C SA ####[facility] [id number] [address] [place] CALCULUS COLOR BROWN Normal [facility] Comment on above: Order Comment: Speci men Type: CALCULUS SPECIMENOrdering Facility: [facility] Address: [address] [place] [address] Performed By: #### C SA ####[facility] [id number] [address] [place] CALCULUS COMPOSITION 1 70% Calcium Oxalate Monohydrate Normal [facility] Comment on above: Order Comment: Speci men Type: CALCULUS SPECIMENOrdering Facility: [facility] Address: [address] [place] [address] Performed By: #### C SA ####[facility] [id number] [address] [place] CALCULUS COMPOSITION 2 20% Calcium Oxalate Dihydrate Normal [facility] Comment on above: Order Comment: Speci men Type: CALCULUS SPECIMENOrdering Facility: [facility] Address: [address] [place] [address] Performed By: #### C SA ####[facility] [id number] [address] CALCULUS COMPOSITION 3 10% Minor Components Normal [facility] Comment on above: Order Comment: Speci men Type: CALCULUS SPECIMENOrdering Facility: [facility] Address: [address] [place], [place] [address] Performed By: #### C SA ####[facility] [id number] [address] [place] CALCULUS SIZE AND WT Multiple pieces. 2.8188 GRAMS Normal [facility] Comment on above: Order Comment: Speci men Type: CALCULUS SPECIMENOrdering Facility: [facility] Address: [address] [place], [place] [address] Performed By: #### C SA ####[facility] [id number] [address] [place] CALCULUS TYPE CALCULI/CALCULUS Normal [facility] Comment on above: Order Comment: Speci men Type: CALCULUS SPECIMENOrdering Facility: [facility] Address: [address] [place], [place] [address] Performed By: #### C SA ####[facility] [id number] [address] [place] CBC panel Auto (Bld)on 09-11 Erythrocyte distribution width (RBC) [Ratio] 13.8 % Normal 11.5-15.0 [facility] Comment on above: Order Comment: Speci men Type: BLOOD SPECIMEN [facility] Address: [address] [place], [place] [address] Performed By: #### 5 8410-2 #### [facility] IA [id number] [address] [place] [address] [place] Hematocrit (Bld) [Volume fraction] 40.1 % Normal 39.0-51.0 [facility] Comment on above: Order Comment: Speci men Type: BLOOD SPECIMEN [facility] Address: [address] [place], [place] [address] Performed By: #### 5 8410-2 #### [facility] CLIA [id number] [address] [place] [address] [place] Hemoglobin (Bld) [Mass/Vol] 12.3 g/dL Low 13.0-17.0 [facility] Comment on above: Order Comment: Speci men Type: BLOOD SPECIMEN [facility] Address: [address] [place], [place] [address] Performed By: #### 5 8410-2 #### [facility] CLIA [id number] [address] [place] [address] [place] MCH (RBC) [Entitic mass] 25.6 pg Low 26.0-34.0 [facility] Comment on above: Order Comment: Speci men Type: BLOOD SPECIMEN [facility] Address: [address] [place] [address] Performed By: #### 5 8410-2 #### [facility] CLIA [id number] [place] MCHC (RBC) [Mass/Vol] 30.7 g/dL Normal 30.5-36.0 [facility] Comment on above: Order Comment: Speci men Type: BLOOD SPECIMEN [facility] Address: [address] [place] [address] Performed By: #### 5 8410-2 #### [facility] IA [id number] [address] [place] [address] [place] MCV (RBC) [Entitic vol] 83.5 fL Normal 80.0-100.0 [facility] Comment on above: Order Comment: Speci men Type: BLOOD SPECIMEN [facility] Address: [address] [place] [address] Performed By: #### 5 8410-2 #### [facility] IA [id number] [address] [place] [address] OF [facility] Nucleated RBC (Bld) [#/Vol] 10*3/uL Normal <0.01 [facility] Comment on above: Order Comment: Speci men Type: BLOOD SPECIMEN [facility] Address: [address] [place], [place] [address] Performed By: #### 5 8410-2 #### [facility] CLIA [id number] [address] [place] [address] [place] Platelet mean volume (Bld) [Entitic vol] 9.5 fL Normal 9.0-12.7 [facility] Comment on above: Order Comment: Speci men Type: BLOOD SPECIMEN [facility] Address: [address] [place] [address] Performed By: #### 5 8410-2 #### [facility] CLIA [id number] [address] [place], [place] [address] [place] [address] OF [facility] Platelets (Bld) [#/Vol] 137 10*3/uL Low 150-400 [facility] Comment on above: Order Comment: Speci men Type: BLOOD SPECIMEN [facility] Address: [address] [place], [place] [address] Performed By: #### 5 8410-2 #### [facility] CLIA [id number] [address] [place] [address] [place] RBC (Bld) [#/Vol] 4.80 10*6/uL Normal 4.20-6.00 [facility] Comment on above: Order Comment: Speci men Type: BLOOD SPECIMEN [facility] Address: [address] [place], [place] [address] Performed By: #### 5 8410-2 #### [facility] CLIA [id number] [address] STATES OF [facility] WBC (Bld) [#/Vol] 7.34 10*3/uL Normal 3.70-11.00 [facility] Comment on above: Order Comment: Speci men Type: BLOOD SPECIMEN [facility] Address: [address] [place], [place] [address] Performed By: #### 5 8410-2 #### [facility] IA [id number] [place] ECG COMPLETEon 09-11-2022 ECG COMPLETE Ventricular Rate : 9 0 BPM Atrial Rate : 90 BPM P-R Interval : 175 ms QRS Duration : 92 ms Q-T Interval : 360 ms QTC Calculation(Bazett) : 441 ms Calculated P [place] : 42 degrees Calculated R [place] : -16 degrees Calculated T [place] : 29 degrees Sinus rhythm Borderline left axis deviation Abnormal R-wave progression, early transition Otherwise Normal ECG Confirmed by Rubén CURRIE RAVISANKAR ([id number]) on 09/15/2022 2:00:08 PM NAME : DAT LOPEZ : [id number] : 1960 Gender : Male Race : ORD : [id number] Procedure Date : Sep 11 2022 20:12:04 [...] Referred By : , Acquired by : [id number], Normal [facility] HISTORY PHYSICALon HISTORY PHYSICAL HNO ID: [id number] Author: Noelle Vega MD Service: Urology Author [...] Vega MD September 11, 2022 7:23 AM [facility] NURSING PROGon 09-11-2022 NURSING PROG HNO ID: [id number] Author: Oanh Mc RN Service: Nursing Author Type: Registered Nurse Type: Nursing Progress Note Filed: 09/11/2022 5:34 PM Note Text: Other: Page sent to surgical pager. K noted to be 5.8. Will await further instructions. JOHN Adames- Potassium is 5.8 Thanks Oanh 8470 [facility] NURSING PROG HNO ID: [id number] Author: Malena Salvador RN Service: Nursing Author Type: Registered Nurse Type: Nursing Progress Note Filed: 09/11/2022 12:55 PM Note Text: Transfer Note: Patient transferred into room/unit 534 in stable condition. Actions taken: No futher actions taken at this time. Will continue to monitor and check with patient. [facility] NURSING PROG HNO ID: [id number] Author: Radha Rae RN Service: ? Author Type: Registered Nurse Type: Nursing Progress Note Filed: 09/11/2022 12:30 PM Note Text: Report from Kaushal Norton for coverage. Pt denies pain at this time. VSS. 1210 - Pt tolerating ice chips. 1225 - Pt continues to deny pain. Report called to 5E [facility] OPERATIVE NOon 09-11-2022 OPERATIVE NO HNO ID: [id number] Author: Noelle Vega MD Service: Urology Author Type: Physician Type: Operative Report Filed: 09/11/2022 12:07 PM Note Text: OPERATIVE/PROCEDURE REPORT LOG ID: [id number] SURGERY/PROCEDURE DATE: 09/11/2022 INCISION/PROCEDURE START TIME: 8:06 AM INCISION CLOSE/PROCEDURE END TIME: 11:12 AM SURGEON(S)/PROCEDURALIST( S) AND SLIP FILLER(S): Surgeon(s) and Role: * Noelle Vega MD [...] larger stone burden in the upper pole. [place] images were obtained in 2 planes using the c-arm. A retrograde pyelogram was performed contrast, and an appropriate upper pole, posterior calyx was selected. The ultrasound with the curved transducer was used [...] working wi (more content not included)... Normal [facility] POTASSIUM Don 09-11-2022 Potassium [Moles/Vol] 5.7 mmol/L High 3.7-5.1 [facility] Comment on above: Order Comment: Speci men Type: BLOOD SPECIMEN [facility] Address: [address] [phone] Performed By: #### 5 8410-2 #### [facility] CLIA [id number] [address] [facility] [place] [address] [place] Potassium [Moles/Vol] 5.8 mmol/L High 3.7-5.1 [facility] Comment on above: Order Comment: Speci men Type: BLOOD SPECIMEN [facility] Address: [address] [place] [address] Performed By: #### 5 8410-2 #### [facility] CLIA [id number] [address] [facility] [place] [place] [address] [place] XR CHEST 1V [...] Pulmonary vasculature is unremarkable. IMPRESSION: Bibasilar atelectasis. Land Leasing Examiner: VITOR Transcribe Date/Time: Sep 11 2022 12:00P Dictated by : CECE GALVIN MD This examination was interpreted and the report reviewed and electronically signed by: CECE GALVIN MD on Sep 11 2022 12:01PM EST [id number] Normal [facility] 25([place])D3 [facility] 25-hydroxyvitamin D3 [Mass/Vol] 42.6 ng/mL Normal 31.0-80.0 [facility] Comment on above: Order Comment: Speci men Type: BLOOD SPECIMENOrdering Facility: [facility] Address: [address] [place] [address] Result Comment: Clas sification of 25 [place] Vitamin D status: Deficiency/Insufficiency: < or = 30 ng/ml. Sufficiency/Optimal Levels: 31-80 ng/mL Toxicity: > 100 ng/mL. Test performed by chemiluminescent immunoassay. Performed By: #### 1 989-3 ####[facility] [id number] [facility] [id number] [address] [place] Bacteria Ur Culton 2 Bacteria identified Cx Nom (U) CULTURE, URINE: No growth (<1,000 CFU/ml) Normal [facility] Comment on above: Performed By: #### 6 30-4 ####[facility] [id number] [id number] [id number] [place] CBC W Auto Differential pane l (Bld)on 08-28-2022 Basophils (Bld) [#/Vol] 0.03 10*3/uL Normal <0.11 [facility] Comment on above: Order Comment: Speci men Type: BLOOD SPECIMENOrdering Facility: [facility] Address: [address] [place] [address] Performed By: #### 5 7021-8 ####[facility] LABORATORYCLIA [id number] [address] [place] Basophils/100 WBC (Bld) 0.4 % Normal [facility] Comment on above: Order Comment: Speci men Type: BLOOD SPECIMENOrdering Facility: [facility] Address: [address] [place] [address] Performed By: #### 5 7021-8 ####[facility] BAKERSFIELDIA [id number] [address] [place] Differential cell count method Nom (Bld) Auto Normal [facility] Comment on above: Order Comment: Speci men Type: BLOOD SPECIMENOrdering Facility: [facility] Address: [address] [place] [address] Performed By: #### 5 7021-8 ####[facility] - BAKERSFIELDIA [id number] [place] [address] [place] Eosinophils (Bld) [#/Vol] 0.31 10*3/uL Normal <0.46 [facility] Comment on above: Order Comment: Speci men Type: BLOOD SPECIMENOrdering Facility: [facility] Address: [address] [place] [address] Performed By: #### 5 7021-8 ####[facility] LABORATORYIA [id number] [place] [address] [place] Eosinophils/100 WBC (Bld) 4.4 % Normal [facility] Comment on above: Order Comment: Speci men Type: BLOOD SPECIMENOrdering Facility: [facility] Address: [address] [place] [address] Performed By: #### 5 7021-8 ####[facility] [id number] [place], [place] [id number] [place] [address] [place] Erythrocyte distribution width (RBC) [Ratio] 13.9 % Normal 11.5-15.0 [facility] Comment on above: Order Comment: Speci men Type: BLOOD SPECIMENOrdering Facility: [facility] Address: [address] [place], [place] [address] Performed By: #### 5 7021-8 ####[facility] [id number] [address] [place] Hematocrit (Bld) [Volume fraction] 40.0 % Normal 39.0-51.0 [facility] Comment on above: Order Comment: Speci men Type: BLOOD SPECIMENOrdering Facility: [facility] Address: [address] [place] [address] Performed By: #### 5 7021-8 ####[facility] [id number] [place] [address] [place] Hemoglobin (Bld) [Mass/Vol] 13.0 g/dL Normal 13.0-17.0 [facility] Comment on above: Order Comment: Speci men Type: BLOOD SPECIMENOrdering Facility: [facility] Address: [address] [place], [place] [address] Performed By: #### 5 7021-8 ####[facility] [id number] [place], [place] [address] [place] [address] [place] IMMATURE GRAN % 0.4 % Normal [facility] Comment on above: Order Comment: Speci men Type: BLOOD SPECIMENOrdering Facility: [facility] Address: [address] [place], [place] [address] Performed By: #### 5 7021-8 ####[facility] LABORATORYIA [id number] [place] [address] [place] IMMATURE GRAN ABS 0.03 k/uL Normal <0.10 [facility] Comment on above: Order Comment: Speci men Type: BLOOD SPECIMENOrdering Facility: [facility] Address: [address] [place] [address] Performed By: #### 5 7021-8 ####[facility] LABORATORYCLIA [id number] [address] [place] Lymphocytes (Bld) [#/Vol] 2.20 10*3/uL Normal 1.00-4.00 [facility] Comment on above: Order Comment: Speci men Type: BLOOD SPECIMENOrdering Facility: [facility] Address: [address] [place] [address] Performed By: #### 5 7021-8 ####[facility]ORATORYCLIA [id number] [address] [place] Lymphocytes/100 WBC (Bld) 31.2 % Normal [facility] Comment on above: Order Comment: Speci men Type: BLOOD SPECIMENOrdering Facility: [facility] Address: [address] [place] [address] Performed By: #### 5 7021-8 ####[facility] LABORATORYIA [id number] [address] [place] MCH (RBC) [Entitic mass] 26.5 pg Normal 26.0-34.0 [facility] Comment on above: Order Comment: Speci men Type: BLOOD SPECIMENOrdering Facility: [facility] Address: [address] [place], [place] [address] Performed By: #### 5 7021-8 ####[facility]ORATORYIA [id number] [address] [place] MCHC (RBC) [Mass/Vol] 32.5 g/dL Normal 30.5-36.0 [facility] Comment on above: Order Comment: Speci men Type: BLOOD SPECIMENOrdering Facility: [facility] Address: [address] [place], [place] [address] Performed By: #### 5 7021-8 ####[facility]ATORYIA [id number] [place] [address] [place] MCV (RBC) [Entitic vol] 81.5 fL Normal 80.0-100.0 [facility] Comment on above: Order Comment: Speci men Type: BLOOD SPECIMENOrdering Facility: [facility] Address: [address] [place] [address] Performed By: #### 5 7021-8 ####[facility] [id number] [place] [address] [place] Monocytes (Bld) [#/Vol] 0.44 10*3/uL Normal <0.87 [facility] Comment on above: Order Comment: Speci men Type: BLOOD SPECIMENOrdering Facility: [facility] Address: [address] [place] [address] Performed By: #### 5 7021-8 ####[facility] [id number] [place] [address] [place] Monocytes/100 WBC (Bld) 6.2 % Normal [facility] Comment on above: Order Comment: Speci men Type: BLOOD SPECIMENOrdering Facility: [facility] Address: [address] [place], [place] [address] Performed By: #### 5 7021-8 ####[facility] [id number] [place] [address] [place] Neutrophils (Bld) [#/Vol] 4.05 10*3/uL Normal 1.45-7.50 [facility] Comment on above: Order Comment: Speci men Type: BLOOD SPECIMENOrdering Facility: [facility] Address: [address] [place], [place] [address] Performed By: #### 5 7021-8 ####[facility] LABORATORYIA [id number] [place] [address] [place] Neutrophils/100 WBC (Bld) 57.4 % Normal [facility] Comment on above: Order Comment: Speci men Type: BLOOD SPECIMENOrdering Facility: [facility] Address: [address] [place], [place] [address] Performed By: #### 5 7021-8 ####[facility]ORATORYIA [id number] [place] [address] [place] Nucleated RBC (Bld) [#/Vol] 10*3/uL Normal <0.01 [facility] Comment on above: Order Comment: Speci men Type: BLOOD SPECIMENOrdering Facility: [facility] Address: [address] [place], [place] [address] Performed By: #### 5 7021-8 ####[facility] [id number] [place] [address] [place] Nucleated RBC/100 WBC (Bld) [Ratio] 0.0 /100 WBC Normal [facility] Comment on above: Order Comment: Speci men Type: BLOOD SPECIMENOrdering Facility: [facility] Address: [address] [place], [place] [address] Performed By: #### 5 7021-8 ####[facility] [id number] [place] [address] [place] Platelet mean volume (Bld) [Entitic vol] 9.7 fL Normal 9.0-12.7 [facility] Comment on above: Order Comment: Speci men Type: BLOOD SPECIMENOrdering Facility: [facility] Address: [address] [place], [place] [address] Performed By: #### 5 7021-8 ####[facility]ATORYIA [id number] [place] [address] [place] Platelets (Bld) [#/Vol] 169 10*3/uL Normal 150-400 [facility] Comment on above: Order Comment: Speci men Type: BLOOD SPECIMENOrdering Facility: [facility] Address: [address] [place], [place] [address] Performed By: #### 5 7021-8 ####[facility]ATORYIA [id number] [place] [address] [place] RBC (Bld) [#/Vol] 4.91 10*6/uL Normal 4.20-6.00 [facility] Comment on above: Order Comment: Speci men Type: BLOOD SPECIMENOrdering Facility: [facility] Address: [address] [place] [address] Performed By: #### 5 7021-8 ####[facility] [id number] [place] [address] [facility] WBC (Bld) [#/Vol] 7.06 10*3/uL Normal 3.70-11.00 [facility] Comment on above: Order Comment: Speci men Type: BLOOD SPECIMENOrdering Facility: [facility] Address: [address] [place] [address] Performed By: #### 5 7021-8 ####[facility] [id number] [place] [address] [facility] CT FLANK WO IVCONon 08-28-[address] FLANK WO IVCON * * *Final Report* * * DATE OF EXAM: Aug 28 2022 7:10AM [facility] 0529 - CT FLANK WO IVCON [...] lesions. Lower thorax: Lower lungs are clear. [place] (topogram) images: Unremarkable. IMPRESSION: Extensive amount of left-sided urolithiasis with left-sided double-J ureteral stent in place. Land Leasing Examiner: VITOR Transcribe Date/Time: Aug 28 2022 10:17A Dictated by : CECE GALVIN MD This examination was interpreted and the report reviewed and electronically signed by: CECE GALVIN MD on Aug 28 2022 10:31AM EST [id number] Normal [facility] Comprehensive metabolic 2000 panelon 08-28-2022 Albumin [Mass/Vol] 4.5 g/dL Normal 3.9-4.9 [facility] Comment on above: Order Comment: Speci men Type: BLOOD SPECIMENOrdering Facility: [facility] Address: [address] [place] [address] Performed By: #### 2 4323-8 ####[facility] LABORATORYCLIA [id number] [facility] [place] [address] [place] ALP [Catalytic activity/Vol] 99 U/L Normal 38-113 [facility] Comment on above: Order Comment: Speci men Type: BLOOD SPECIMENOrdering Facility: [facility] Address: [address] Performed By: #### 2 4323-8 ####[facility]ORATORYCLIA [id number] [place] [address] [place] ALT [Catalytic activity/Vol] 17 U/L Normal 10-54 [facility] Comment on above: Order Comment: Speci men Type: BLOOD SPECIMENOrdering Facility: [facility] Address: [address] [place] [address] Performed By: #### 2 4323-8 ####[facility] LABORATORYCLIA [id number] [place] [address] [place] Anion gap [Moles/Vol] 9 mmol/L Normal 9-18 [facility] Comment on above: Order Comment: Speci men Type: BLOOD SPECIMENOrdering Facility: [facility] Address: [address] [place] [address] Performed By: #### 2 4323-8 ####[facility]ORATORYIA [id number] [address] [place] AST [Catalytic activity/Vol] 20 U/L Normal 14-40 [facility] Comment on above: Order Comment: Speci men Type: BLOOD SPECIMENOrdering Facility: [facility] Address: [address] [place] [address] Performed By: #### 2 4323-8 ####[facility]ATORYIA [id number] [place] [address] [place] Bilirubin [Mass/Vol] 0.2 mg/dL Normal 0.2-1.3 [facility] Comment on above: Order Comment: Speci men Type: BLOOD SPECIMENOrdering Facility: [facility] Address: [address] [place], [place] [address] Performed By: #### 2 4323-8 ####[facility]ATORYIA [id number] [place] [address] [place] Calcium [Mass/Vol] 9.5 mg/dL Normal 8.5-10.2 [facility] Comment on above: Order Comment: Speci men Type: BLOOD SPECIMENOrdering Facility: [facility] Address: [address] [place] [address] Performed By: #### 2 4323-8 ####[facility]ORATORYCLIA [id number] [place] [address] [place] Chloride [Moles/Vol] 106 mmol/L High 97-105 [facility] Comment on above: Order Comment: Speci men Type: BLOOD SPECIMENOrdering Facility: [facility] Address: [address] [place] [address] Performed By: #### 2 4323-8 ####[facility]ORATORYCLIA [id number] [place] [address] [place] CO2 [Moles/Vol] 25 mmol/L Normal 22-30 [facility] Comment on above: Order Comment: Speci men Type: BLOOD SPECIMENOrdering Facility: [facility] Address: [address] [place] [address] Performed By: #### 2 4323-8 ####[facility] [id number] [place] [address] [place] Creatinine [Mass/Vol] 1.22 mg/dL Normal 0.73-1.22 [facility] Comment on above: Order Comment: Speci men Type: BLOOD SPECIMENOrdering Facility: [facility] Address: [address] [place] [address] Performed By: #### 2 4323-8 ####[facility]ATORYIA [id number] [place] [address] [place] ESTIMATED GLOMERULAR FILTRATION RATE 68 mL/min/1.73m??? Normal >=60 [facility] Comment on above: Order Comment: Speci men Type: BLOOD SPECIMENOrdering Facility: [facility] Address: [address] [place] [address] Result Comment: Carloe mated Glomerular Filtration Rate (eGFR) is calculated [...] actual GFR. Performed By: #### 2 4323-8 ####[facility]ORATORYCLIA [id number] [place] [address] [place] Glucose [Mass/Vol] 158 mg/dL High 74-99 [facility] Comment on above: Order Comment: Demar arrington Type: BLOOD SPECIMENOrdering Facility: [facility] Address: [address] [place] [address] Result Comment: The [place] Diabetes Association (ADA) provides guidance for cutoff [...] Standards of Medical Care in Diabetes 2016, [place] Diabetes Association. Diabetes Care. 2016.39(Suppl 1). Performed By: #### 2 4323-8 ####[facility] LABORATORYCLIA [id number] [place] [address] [place] Potassium [Moles/Vol] 4.7 mmol/L Normal 3.7-5.1 [facility] Comment on above: Order Comment: Deamr arrington Type: BLOOD SPECIMENOrdering Facility: [facility] Address: [address] [place] [address] Performed By: #### 2 4323-8 ####[facility]ORATORYCLIA [id number] [place] [address] [place] Protein [Mass/Vol] 6.7 g/dL Normal 6.3-8.0 [facility] Comment on above: Order Comment: Demar arrington Type: BLOOD SPECIMENOrdering Facility: [facility] Address: [address] Performed By: #### 2 4323-8 ####[facility]ORATORYCLIA [id number] [place] [address] [place] Sodium [Moles/Vol] 140 mmol/L Normal 136-144 [facility] Comment on above: Order Comment: Speci men Type: BLOOD SPECIMENOrdering Facility: [facility] Address: [address] [place] [address] Performed By: #### 2 4323-8 ####[facility]ORATORYCLIA [id number] [address] [place] Urea nitrogen [Mass/Vol] 23 mg/dL Normal 9-24 [facility] Comment on above: Order Comment: Speci men Type: BLOOD SPECIMENOrdering Facility: [facility] Address: [address] [place] [address] Performed By: #### 2 4323-8 ####[facility]ATORYIA [id number] [place] [address] [place] HISTORY PHYSICALon HISTORY PHYSICAL HNO ID: [id number] Author: Mechelle Burnett PA-C Service: ? Author Type: Physician Manager It Training Type: HANDP Filed: 08/29/2022 9:43 AM Note [...] fevers. Neuro: No history of TIA's, stroke, QUEBRACHO TANNER tumor, impaired sensorium, hemiplegia, paraplegia or quadraplegia. No neurological symptoms or problems. Respiratory: No history of current cough or dyspnea, or pneumonia in the past 6 weeks. No history of respiratory/pulmonary symptoms or problems. Cardiovascular: +HTN, HLD, POTS- no recent episodes Negative for Recent VT, Angina, Chest Pain, CHF, DVT/PE GI: No [...] problems. Musc (more content not included)... Normal [facility] HbA1c (Bld)on 08-28-2022 Average glucose Estimated from glycated hemoglobin (Bld) [Mass/Vol] 131 mg/dL Normal [facility] Comment on above: Order Comment: Speci men Type: BLOOD SPECIMEN [facility] Address: [address] [place] [address] Result Comment: eAG: (Estimated average glucose) is a calculated value from HgbA1c and is employee representative of the average blood glucose level in the last 2-3 month period. Performed By: #### 5 8410-2 #### [facility] CLIA [id number] [facility] [place] [address] [place] HbA1c (Bld) [Mass fraction] 6.2 % High 4.3-5.6 [facility] Comment on above: Order Comment: Demar murphy Type: BLOOD SPECIMEN [facility] Address: [address] [place] [address] Result Comment: Salvatore ican Diabetes Association guidelines indicate that patients with HgbA1c in the range 5.7-6.4% are at increased risk for development of diabetes, and intervention by lifestyle modification may be beneficial. HgbA1c greater or equal to 6.5% is considered diagnostic of diabetes. Performed By: #### 5 8410-2 #### [facility] CLIA [id number] [facility] [place] [address] [place] PT panel Coag (PPP)on 2021 INR Coag (PPP) [Relative time] 1.0 {INR} Normal 0.9-1.3 [facility] Comment on above: Order Comment: Demar arrington Type: BLOOD SPECIMEN [facility] Address: [address] [place] [address] Result Comment: No min K Antagonist (VKA) Therapeutic Range: INR 2 to 3 (Target INR of 2.5) Note: For patients treated with VKA drugs, such as warfarin, the [place] [employer] 2012 Guideline recommends [...] Chest 2012, 141:7S-47S Soo RA, et al. [facility] 2017, 70: 252-289 Performed By: #### 5 8410-2 #### [facility] CLIA [id number] [facility] [place] [address] [place] PT Coag (PPP) [Time] 10.3 s Normal 9.7-13.0 [facility] Comment on above: Order Comment: Speci men Type: BLOOD SPECIMEN [facility] Address: [address] [place], [place] [address] Performed By: #### 5 8410-2 #### [facility] CLIA [id number] [facility] [place] [address] [place] PTH-Intact SerPl-mCncon 10- Parathyrin.intact [Mass/Vol] 26 pg/mL Normal 15-65 [facility] Comment on above: Order Comment: Speci men Type: BLOOD SPECIMEN [facility] Address: [address] [place], [place] [address] Performed By: #### 5 8410-2 #### [facility] CLIA [id number] [place] [address] [place] TYPE AND SCREEN,30 DAYon ABO O Normal [facility] Comment on above: Order Comment: Speci men Type: BLOOD SPECIMENOrdering Facility: [facility] Address: [address] [place] [address] Performed By: #### T SCR30 ####[place] [facility] [id number] [place] [address] [place] HISTORICAL AB SCR STATUS Negative Normal [facility] Comment on above: Order Comment: Speci men Type: BLOOD SPECIMENOrdering Facility: [facility] Address: [address] [place], [place] [address] Performed By: #### T SCR30 ####[facility] BANKCLIA [id number] [place] [address] [place] Rh Nom (Bld) Positive Normal [facility] Comment on above: Order Comment: Speci men Type: BLOOD SPECIMENOrdering Facility: [facility] Address: [address] [place], [place] [address] Performed By: #### T SCR30 ####[facility] BLOOD BANKCLIA [id number] [facility] [address] [place] Urinalysis complete panel (U )on 08-28-2022 Bilirubin Ql (U) Negative Normal Negative [facility] Comment on above: Order Comment: Speci men Type: BLOOD SPECIMEN [facility] Address: [address] [place] [address] Performed By: #### 5 8410-2 #### [facility] [place] [id number] [address] [place] [address] [place] Clarity (Unsp spec) Cloudy Abnormal Clear [facility] Comment on above: Order Comment: Speci men Type: BLOOD SPECIMEN [facility] Address: [address] [place] [address] Performed By: #### 5 8410-2 #### [facility] [place] [id number] [address] [place] [address] Color (U) Weston Abnormal Yellow [facility] Comment on above: Order Comment: Speci men Type: BLOOD SPECIMEN [facility] Address: [address] [place] [address] Performed By: #### 5 8410-2 #### [facility] [place] [id number] [address] [place] [address] [place] Glucose Test strip (U) [Mass/Vol] Negative Normal Negative [facility] Comment on above: Order Comment: Speci men Type: BLOOD SPECIMEN [facility] Address: [address] [place] [address] Performed By: #### 5 8410-2 #### [facility] [place] [id number] [address] [place] [address] [place] Hemoglobin Ql (U) 3+ Abnormal Negative [facility] Comment on above: Order Comment: Speci men Type: BLOOD SPECIMEN [facility] Address: [address] [place] [address] Performed By: #### 5 8410-2 #### [facility] [place] [id number] [address] [place] [id number] [place] [address] Ketones Ql (U) Negative Normal Negative [facility] Comment on above: Order Comment: Speci men Type: BLOOD SPECIMEN [facility] Address: [address] [place] [address] Performed By: #### 5 8410-2 #### [facility] CLIA [id number] Leukocyte esterase Test strip Ql (U) 1+ Abnormal Negative [facility] Comment on above: Order Comment: Speci men Type: BLOOD SPECIMEN [facility] Address: [address] [place] [address] Performed By: #### 5 8410-2 #### [facility] CLIA [id number] STATES OF [facility] Nitrite Ql (U) Negative Normal Negative [facility] Comment on above: Order Comment: Speci men Type: BLOOD SPECIMEN [facility] Address: [address] [place] [address] Performed By: #### 5 8410-2 #### [facility] CLIA [id number] [place] [address] [place] pH (U) 5.5 [pH] Normal 5.0-8.0 [facility] Comment on above: Order Comment: Speci men Type: BLOOD SPECIMEN Ordering Facility: [facility] Address: [address] [place] [address] Performed By: #### 5 8410-2 #### [facility] CLIA [id number] [place] Protein (U) [Mass/Vol] Normal [facility] Comment on above: Order Comment: Speci men Type: BLOOD SPECIMEN Ordering Facility: [facility] Address: [address] [place] [address] Result Comment: Visi ble blood causes falsely elevated results for analyte Protein. Due to this limitation, Protein will not be reported for patients whose urine contains visible blood. Performed By: #### 5 8410-2 #### [facility] [place] [id number] [place] RBC LM.HPF (Urine sed) [#/Area] 11-25 /HPF Abnormal 0-3 /HPF [facility] Comment on above: Order Comment: Speci men Type: BLOOD SPECIMEN Ordering Facility: [facility] Address: [address] [place] [address] Performed By: #### 5 8410-2 #### [facility] [place] [id number] [address] [place] [address] [place] Specific gravity (U) [Rel density] 1.014 Normal 1.005-1.030 [facility] Comment on above: Order Comment: Speci men Type: BLOOD SPECIMEN Ordering Facility: [facility] Address: [address] [place] [address] Performed By: #### 5 8410-2 #### [facility] [id number] [address] [place] [address] OF [place] Urobilinogen Ql (U) 0.2 EU/dL Normal 0.2-1.0 EU/dL [facility] Comment on above: Order Comment: Speci men Type: BLOOD SPECIMEN Ordering Facility: [facility] Address: [address] [place] [address] Performed By: #### 5 8410-2 #### [facility] [id number] [address] [place] [address] [place] WBC LM.HPF (Urine sed) [#/Area] 6-10 /HPF Abnormal 0-5 /HPF [facility] Comment on above: Order Comment: Speci men Type: BLOOD SPECIMEN Ordering Facility: [facility] Address: [address] [place] [address] Performed By: #### 5 8410-2 #### [facility] [place] [id number] [place] [address] [place] aPTT PPPon 08-28-2022 aPTT Coag (PPP) [Time] 27.0 s Normal 23.0-32.4 [facility] Comment on above: Order Comment: Speci men Type: BLOOD SPECIMEN Ordering Facility: [facility] Address: [address] [place] [address] Performed By: #### 5 8410-2 #### [facility] CLIA [id number] [place] [address] [facility] CNPNon 08-25-2022 CNPN Telephone (URFMOB) ----- DAT LOPEZ ([id number]) 1960 M Date Time Provider Department 08/25/22 [...] Fully Assessed Reason for Visit: Patient Question [9077] Prescriptions as of 08/28/2022 - metFORMIN (GLUCOPHAGE) [...] Encounter Status:Closed by EVELYN HICKS on 08/28/22 [facility] 08-24-[address] [facility] Telephone (URFMOB) ----- DAT LOPEZ ([id number]) 1960 M Date Time Provider Department 08/24/22 NOELLE VEGA During your visit today, we recorded the following information about you: Eddie Freed Pss 08/24/2022 3:53 PM Signed Called patient to review preop appts and instructions. Unable to leave message, no vm available. Eddie Freed Pss 08/25/2022 4:36 PM Signed Patient scheduled for surgery on 09/11 at [facility] for PERCUTANEOUS NEPHROLITHOTOMY [2747] - Kidney - [...] Fully Assessed Reason for Visit: Schedule Surgery [6340] Prescriptions as of 08/25/2022 - metFORMIN (GLUCOPHAGE) [...] Encounter Status:Closed by EDDIE MORENO on 08/25/22 [facility] 08-16-2022 CNPN Telephone (UROLAV) ----- DAT LOPEZ ([id number]) 1960 M Date Time Provider Department 08/16/22 [...] Visit: Other [Other] Cmt: CD from [facility] XR KUB Prescriptions as of 08/16/2022 [...] by BIENVENIDO DEL CID MA on 08/16/[address] [facility] CNOVon 08-11-2022 CNOV Office Visit (UROLAV ) ----- DAT LOPEZ ([id number]) 1960 M Date Time Provider Department 08/11/22 11:00 AM NOELLE VEGA During your visit today, we recorded the following information about you: Pulse Blood pressure Weight 66/minute 176/89 99.8 kg Noelle Vega MD 08/11/2022 11:28 AM Signed [facility] NEW PATIENT HISTORY AND PHYSICAL EXAM PATIENT INFO: Dat Lopez 62 year old REFERRING M.D.: Pelon Coles [address] [place] [address] PCP: No primary care provider on file. [...] Left NL, multiple stones. ESWL was performed. [facility]. Then URS x 2 and ureteral stent [...] black stools or change in bowel habits Dora (more content not included)... Normal [facility] UA DIP, URINE (POC)on 2021 BILIRUBIN UA (POCT) Negative Negative [facility] CLARITY UA (POCT) Slightly Cloudy Cl [facility] COLOR UA (POCT) Yellow [facility] GLUCOSE UA (POCT) Negative Negative mg/dL [facility] HEMOGLOBIN/BLOOD UA (POCT) Large Abnormal Negative [facility] KETONE UA (POCT) Negative Negative mg/dL [facility] LEUKOCYTES UA (POCT) Small Abnormal Negative [facility] NITRITE UA (POCT) Negative Negative [facility] PH UA (POCT) 5.5 4.5 - 8.0 [facility] Protein Ql (U) 30 mg/dL Abnormal Negative mg/dL [facility] SPECIFIC GRAVITY UA (POCT) 1.015 1.005 - 1.030 [facility] UROBILINOGEN UA (POCT) 0.2 E.U./dL Normal E.U./dL [facility] XR KUB 1 VIEWon 07-19-2022 XR KUB [...] left ureteral stent. Electronically authenticated by: GEMA Byers: 2022-07-19 11:[address] [facility] XR KUB 1 VIEWon 06-29-2022 XR [...] JI CULLEN Date: 2022-06-29 07:[address] [facility] CALCULI, URINARYon 2 2,8 Dihydroxyadenine Normal [facility] Comment on above: Performed By: #### C ALCULI #### [facility] [address] [place] [address] Dr. Nikky Man Ammonium Acid Urate Normal [facility] Comment on above: Performed By: #### C ALCULI #### [facility] [address] [address] [address] Nikky Man Bilirubin Ql (U) Normal [facility] Comment on above: Performed By: #### C ALCULI #### [facility] [address] [place] [address] Dr. Nikky Man Ca Oxalate Dihydrate 10 % Normal [facility] Comment on above: Performed By: #### C ALCULI #### [facility] [address] [address] [address] Nikky Man CaHPO4 (Brushite) Normal [facility] Comment on above: Performed By: #### C ALCULI #### [facility] [address] [address] [address] Nikky Man Calcium Bilirubinate Normal [facility] Comment on above: Performed By: #### C ALCULI #### [facility] [address] [place] [address] Dr. Nikky Man Calcium Carbonate Normal [facility] Comment on above: Performed By: #### C ALCULI #### [facility] [address] [address] [address] Nikky Man Calcium Oxalate Monohydrate 90 % Normal [facility] Comment on above: Performed By: #### C ALCULI #### [facility] [address] [address] [address] Nikky Man Calcium Palmitate Normal [facility] Comment on above: Performed By: #### C ALCULI #### [facility] [address] [address] [address] Nikky Man Calcium Phosphate Normal [facility] Comment on above: Performed By: #### C ALCULI #### [facility] [address] [address] [address] Nikky Man Calcium Stearate [facility] Comment on above: Performed By: #### C ALCULI #### [facility] [address] [address] [address] Nikky Man Carbonate Apatite Normal [facility] Comment on above: Performed By: #### C ALCULI #### [facility] [address] [address] [address] Nikky Man Cellular Material Normal [facility] Comment on above: Performed By: #### C ALCULI #### [facility] [address] [address] [address] Nikky Man Cholesterol [facility] Comment on above: Performed By: #### C ALCULI #### [facility] [address] [address] [address] Nikky Man Color (U) Trammell Normal [facility] Comment on above: Performed By: #### C ALCULI #### [facility] [address] [address] [address] Nikky Man Comment [facility] Comment on above: Performed By: #### C ALCULI #### [facility] [address] [address] [address] Nikky Man Comment Comment [facility] Comment on above: Result Comment: Calc ulus received in liquid. Wet calculi must be dried before analysis, which delays reporting of results. Leaving calculi in liquid (such as water, saline, blood, urine) may lead to changes in composition. Performed By: #### C ALCULI #### [facility] [address] [place] [address] Dr. Nikky Man Comment: Comment Normal [facility] Comment on above: Result Comment: Kaycee valenzuela questions regarding Calculi Analysis contact [facility] at: [phone]. Performed By: #### C ALCULI #### [facility] [address] [place] [address] Dr. Nikky Man Composition Comment Normal [facility] Comment on above: Result Comment: Perc entage (Represents the % composition) Performed By: #### C ALCULI #### [facility] [address] [place] [address] Dr. Nikky Man Cystine Normal [facility] Comment on above: Performed By: #### C ALCULI #### [facility] [address] [place] [address] Dr. Nikky Man Disclaimer: Comment Normal [facility] Comment on above: Result Comment: This test was developed and its performance characteristics determined by [facility]. It has not been cleared or approved by the Food and Drug Administration. Performed By: #### C ALCULI #### [facility] [address] [place] [address] Dr. Nikky Man Dried Blood Normal [facility] Comment on above: Performed By: #### C ALCULI #### [facility] [address] [place] [address] Dr. Nikky Man Drug or Metabolite [facility] Comment on above: Performed By: #### C ALCULI #### [facility] [address] [place] [address] Dr. Nikky Man Hydroxyapatite [facility] Comment on above: Performed By: #### C ALCULI #### [facility] [address] [place] [address] Dr. Nikky Man Mg NH4 PO4 (Struvite) [facility] Comment on above: Performed By: #### C ALCULI #### [facility] [address] [place], [place] [id number] Dr. Nikky Man MgHPO4 (Newberyite) [facility] Comment on above: Performed By: #### C ALCULI #### [facility] [address] [address] [address] Nikky Man Other component(s) [facility] Comment on above: Performed By: #### C ALCULI #### [facility] [address] [address] [address] Nikky Man PDF . Normal [facility] Comment on above: Performed By: #### C ALCULI #### [facility] [address] [address] [address] Nikky Man Photo Comment [facility] Comment on above: Result Comment: Phot ograph will follow under a separate cover Performed By: #### C ALCULI #### [facility] [address] [place] [address] Dr. Nikky Man Please note: Comment Normal [facility] Comment on above: Result Comment: Calc aishwarya report will follow via computer, mail or botany professor delivery. Performed By: #### C ALCULI #### [facility] [address] [address] [address] Nikky Man Size 3x2 [facility] Comment on above: Result Comment: Mult iple pieces received. Dimensions of the largest piece reported. Performed By: #### C ALCULI #### [facility] [address] [address] [address] Nikky Man Sodium Acid Urate Normal [facility] Comment on above: Performed By: #### C ALCULI #### [facility] [address] [address] [address] Nikky Man Source Comment [facility] Comment on above: Result Comment: Left Ureter Performed By: #### C ALCULI #### [facility] [address] [address] [address] Nikky Man Triamterene [facility] Comment on above: Performed By: #### C ALCULI #### [facility] [address] [address] [address] Nikky Man Uric Acid Normal [facility] Comment on above: Performed By: #### C ALCULI #### [facility] [address] [address] [address] Nikky Man Uric Acid Dihydrate Normal [facility] Comment on above: Performed By: #### C ALCULI #### [facility] [address] [address] [address] Nikky Man Weight 4 mg Normal [facility] Comment on above: Performed By: #### C ALCULI #### [facility] [address] [address] [address] Nikky Man Xanthine Normal [facility] Comment on above: Performed By: #### C ALCULI #### [facility] [address] [address] [address] Nikky Man XR KUB 1 VIEWon [...] by: JI CULLEN Date: 2022-06-08 16:30 Normal [facility] XR KUB 1 VIEWon 06-01-2022 [...] JI CULLEN Date: 2022-06-01 21:[address] [facility] PROTIMEon 05-25-2022 INR Coag (PPP) [Relative time] 1.01 {INR} Normal [facility] Comment on above: Performed By: #### P TT, PT #### [facility] [address] [place] [address] Dr. Nikky Man INR GUIDELINES SEE BELOW Normal [facility] Comment on above: Result Comment: ELFEGO RED INR: 2.0 - 3.0 CONDITIONS NOT LISTED BELOW 2.5 - 3.5 FOR PROSTHETIC HEART VALVE REPLACEMENT 2.5 - 3.5 RECURRENT THROMBOSIS Performed By: #### P TT, PT #### [facility] [address] [place] [address] Dr. Nikky Man PT Coag (PPP) [Time] 10.9 s Normal 9.0-11.[address] [facility] Comment on above: Performed By: #### P TT, PT #### [facility] [address] [place] [address] Dr. Nikky Man PTTon 05-25-2022 aPTT Coag (Bld) [Time] 27.9 s Normal 22.3-36.[address] [facility] Comment on above: Performed By: #### P TT, PT #### [facility] [address] [place] [address] Dr. Nikky Man XR KUB 1 VIEWon [...] GEMA OTTO Date: 2022-05-25 17:[address] [facility] XR KUB 1 VIEWon 05-17-2022 XR [...] JI CULLEN Date: 2022-05-17 07:[address] [facility] CALCULI, URINARYon 2 2,[address] [facility] Comment on above: Performed By: #### C BC #### [facility] [address] [place] [address] Dr. Nikky Man Ammonium Acid Urate Normal [facility] Comment on above: Performed By: #### C BC #### [facility] [address] [place] [address] Dr. Nikky Man Bilirubin Ql (U) Normal [facility] Comment on above: Performed By: #### C BC #### [facility] [address] [place] [address] Dr. Nikky Man Ca Oxalate Dihydrate 10 % Normal [facility] Comment on above: Performed By: #### C BC #### [facility] [address] [place] [address] Dr. Nikky Man CaHPO4 (Brushite) Normal [facility] Comment on above: Performed By: #### C BC #### [facility] [address] [place] [address] Dr. Nikky Man Calcium Bilirubinate Normal [facility] Comment on above: Performed By: #### C BC #### [facility] [address] [place] [address] Dr. Nikky Man Calcium Carbonate Normal [facility] Comment on above: Performed By: #### C BC #### [facility] [address] [address] [address] Nikky Man Calcium Oxalate Monohydrate 90 % Normal [facility] Comment on above: Performed By: #### C BC #### [facility] [address] [place] [address] Dr. Nikky Man Calcium Palmitate Normal [facility] Comment on above: Performed By: #### C BC #### [facility] [address] [place] [address] Dr. Nikky Man Calcium Phosphate Normal [facility] Comment on above: Performed By: #### C BC #### [facility] [address] [place] [address] Dr. Nikky Man Calcium Stearate [facility] Comment on above: Performed By: #### C BC #### [facility] [address] [place] [address] Dr. Nikyk Man Carbonate Apatite Normal [facility] Comment on above: Performed By: #### C BC #### [facility] [address] [place] [address] Dr. Nikky Man Cellular Material [facility] Comment on above: Performed By: #### C BC #### [facility] [address] [place] [address] Dr. Nikky Man Cholesterol [facility] Comment on above: Performed By: #### C BC #### [facility] [address] [place] [address] Dr. Nikky Man Color (U) Trammell Normal [facility] Comment on above: Performed By: #### C BC #### [facility] [address] [place] [address] Dr. Nikky Man Comment [facility] Comment on above: Performed By: #### C BC #### [facility] [address] [place] [address] Dr. Nikky Man Comment Comment [facility] Comment on above: Result Comment: Calc ulus received in liquid. Wet calculi must be dried before analysis, which delays reporting of results. Leaving calculi in liquid (such as water, saline, blood, urine) may lead to changes in composition. Performed By: #### C BC #### [facility] [address] [address] [address] Nikky Man Comment: Comment Normal [facility] Comment on above: Result Comment: Kaycee valenzuela questions regarding Calculi Analysis contact [facility] at: [phone]. Performed By: #### C BC #### [facility] [address] [place] [address] Dr. Nikky Man Composition Comment Normal [facility] Comment on above: Result Comment: Perc entage (Represents the % composition) Performed By: #### C BC #### [facility] [address] [place] [address] Dr. Nikky Man Cystine [facility] Comment on above: Performed By: #### C BC #### [facility] [address] [place] [address] Dr. Nikky Man Disclaimer: Comment Normal [facility] Comment on above: Result Comment: This test was developed and its performance characteristics [facility]. It has not been cleared or approved by the Food and Drug Administration. Performed By: #### C BC #### [facility] [address] [place] [address] Dr. Nikky Mna Dried Blood [facility] Comment on above: Performed By: #### C BC #### [facility] [address] [place] [address] Dr. Nikky Man Drug or Metabolite [facility] Comment on above: Performed By: #### C BC #### [facility] [address] [place] [address] Dr. Nikky Man Hydroxyapatite [facility] Comment on above: Performed By: #### C BC #### [facility] [address] [place] [address] Dr. Nikky Man Mg NH4 PO4 (Struvite) [facility] Comment on above: Performed By: #### C BC #### [facility] [address] [place] [address] Dr. Nikky Man MgHPO4 (Newberyite) [facility] Comment on above: Performed By: #### C BC #### [facility] [address] [address] [address] Nikky Man Other component(s) [facility] Comment on above: Performed By: #### C BC #### [facility] [address] [address] [address] Nikky Man PDF . Normal [facility] Comment on above: Performed By: #### C BC #### [facility] [address] [address] [address] Nikky Man Photo Comment [facility] Comment on above: Result Comment: Phot ograph will follow under a separate cover Performed By: #### C BC #### [facility] [address] [address] [address] Nikky Man Please note: Comment [facility] Comment on above: Result Comment: Calc aishwarya report will follow via computer, mail or botany professor delivery. Performed By: #### C BC #### [facility] [address] [address] [address] Nikky Man Size 4x4 [facility] Comment on above: Result Comment: Mult iple pieces received. Dimensions of the largest piece reported. Performed By: #### C BC #### [facility] [address] [address] [address] Nikky Man Sodium Acid Urate Normal [facility] Comment on above: Performed By: #### C BC #### [facility] [address] [address] [address] Nikky Man Source Comment [facility] Comment on above: Result Comment: Left Ureter Performed By: #### C BC #### [facility] [address] [address] [address] Nikky Man Triamterene [facility] Comment on above: Performed By: #### C BC #### [facility] [address] [address] [address] Nikky Man Uric Acid [facility] Comment on above: Performed By: #### C BC #### [facility] [address] [place] [address] Dr. Nikky Man Uric Acid Dihydrate Normal [facility] Comment on above: Performed By: #### C BC #### [facility] [address] [place] [address] Dr. Nikky Man Weight 156 mg Normal [facility] Comment on above: Performed By: #### C BC #### [facility] [address] [place] [address] Dr. Nikky Man Xanthine Normal [facility] Comment on above: Performed By: #### C BC #### [facility] [address] [place] [address] Dr. Nikky Man POINT OF CARE GLUCOSEon 04-19 Glucose [Mass/Vol] 131 mg/dL Critically high 74-106 [facility] Comment on above: Performed By: #### C BC #### [facility] [address] [place] [address] Dr. Nikky Man CBC AUTO DIFFon 05-04-2022 BASO # 0.0 103/ul Normal 0.0-0.1 [facility] Comment on above: Performed By: #### C BC #### [facility] [address] [place] [address] Dr. Nikky Man Basophils/100 WBC (Bld) 0.2 % Normal 0.2-2.0 [facility] Comment on above: Performed By: #### C BC #### [facility] [address] [place] [address] Dr. Nikky Man EO # 0.4 103/ul Normal 0.0-0.7 [facility] Comment on above: Performed By: #### C BC #### [facility] [address] [place] [address] Dr. Nikky Man Eosinophils/100 WBC (Bld) 4.8 % Normal 0.9-7.0 [facility] Comment on above: Performed By: #### C BC #### [facility] [address] [place] [address] Dr. Nikky Man Erythrocyte distribution width (RBC) [Ratio] 13.4 % Normal 11.0-15.0 [facility] Comment on above: Performed By: #### C BC #### [facility] [address] [place] [address] Dr. Nikky Man Hematocrit (Bld) [Volume fraction] 36.9 % Critically low 42.0-54.0 [facility] Comment on above: Performed By: #### C BC #### [facility] [address] [place] [address] Dr. Nikky Man Hemoglobin (Bld) [Mass/Vol] 12.2 g/dL Critically low 14.0-18.0 [facility] Comment on above: Performed By: #### C BC #### [facility] [address] [place] [address] Dr. Nikky Man IG # 0.05 10e3/ul Critically high 0.00-0.03 [facility] Comment on above: Performed By: #### C BC #### [facility] [address] [place] [address] Dr. Nikky Man IG % 0.6 % Critically high 0.0-0.5 [facility] Comment on above: Performed By: #### C BC #### [facility] [address] [place] [address] Dr. Nikky Man LYMPH # 1.8 103/ul Normal 1.2-3.8 [facility] Comment on above: Performed By: #### C BC #### [facility] [address] [place] [address] Dr. Nikky Man Lymphocytes/100 WBC (Bld) 20.3 % Critically low 20.5-60.0 [facility] Comment on above: Performed By: #### C BC #### [facility] [address] [place] [address] Dr. Nikky Man MANUAL DIFF REQ NO Normal [facility] Comment on above: Performed By: #### C BC #### [facility] [address] [place] [address] Dr. Nikky Man MCH (RBC) [Entitic mass] 26.6 pg Normal 25.9-34.0 [facility] Comment on above: Performed By: #### C BC #### [facility] [address] [address] [address] Nikky Man MCHC (RBC) [Mass/Vol] 33.1 g/dL Normal 29.9-35.2 [facility] Comment on above: Performed By: #### C BC #### [facility] [address] [address] [address] Nikky Man MCV (RBC) [Entitic vol] 80.6 fL Normal 80.0-94.0 [facility] Comment on above: Performed By: #### C BC #### [facility] [address] [address] [address] Nikky Man MONO # 0.5 103/ul Normal 0.3-0.8 [facility] Comment on above: Performed By: #### C BC #### [facility] [address] [place] [address] Dr. Nikky Man Monocytes/100 WBC (Bld) 5.2 % Normal 1.7-12.0 [facility] Comment on above: Performed By: #### C BC #### [facility] [address] [address] [address] Nikky Man NEUT # 6.1 103/ul Normal 1.4-6.5 [facility] Comment on above: Performed By: #### C BC #### [facility] [address] [place] [address] Dr. Nikky Man Neutrophils/100 WBC (Bld) 68.9 % Normal 43.0-75.[address] [facility] Comment on above: Performed By: #### C BC #### [facility] [address] [address] [address] Nikky Man Platelet mean volume (Bld) [Entitic vol] 8.9 fL Critically low 9.5-13.5 [facility] Comment on above: Performed By: #### C BC #### [facility] [address] [address] [address] Nikky Man PLT 201 103/ul Normal 150-[address] [facility] Comment on above: Performed By: #### C BC #### [facility] [address] [address] [address] Nikky Man RBC 4.58 106/ul Critically low 4.70-6.10 [facility] Comment on above: Performed By: #### C BC #### [facility] [address] [address] [address] Nikky Man WBC 8.8 103/ul Normal 4.0-11.[address] [facility] Comment on above: Performed By: #### C BC #### [facility] [address] [address] [address] Nikky Man PROF CHEM 8 (BAS METB)on Anion gap [Moles/Vol] 17.6 mmol/L Normal [facility] Comment on above: Performed By: #### C BC #### [facility] [address] [place] [address] Dr. Nikky Man Calcium [Mass/Vol] 9.0 mg/dL Normal 8.5-10.1 [facility] Comment on above: Performed By: #### C BC #### [facility] [address] [address] [address] Nikky Man Chloride [Moles/Vol] 106 mmol/L Normal 98-107 [facility] Comment on above: Performed By: #### C BC #### [facility] [address] [place] [address] Dr. Nikky Man CO2 [Moles/Vol] 22.5 mmol/L Normal 21.0-32.0 [facility] Comment on above: Performed By: #### C BC #### [facility] [address] [place] [address] Dr. Nikky Man Creatinine [Mass/Vol] 2.34 mg/dL Critically high 0.70-1.30 [facility] Comment on above: Performed By: #### C BC #### [facility] [address] [address] [address] Nikky Man EGFR-AF PALESTINIAN 35 mL/min/1.73m2 Critically low >=[address] [facility] Comment on above: Performed By: #### C BC #### [facility] [address] [address] [address] Nikky Man EGFR-NON AF PALESTINIAN 29 mL/min/1.73m2 Critically low >=60 [facility] Comment on above: Performed By: #### C BC #### [facility] [address] [address] [address] Nikky Man Glucose [Mass/Vol] 123 mg/dL Critically high 74-106 [facility] Comment on above: Performed By: #### C BC #### [facility] [address] [address] [address] Nikky Man Potassium [Moles/Vol] 5.1 mmol/L Normal 3.5-5.1 [facility] Comment on above: Performed By: #### C BC #### [facility] [address] [address] [address] Nikky Man Sodium [Moles/Vol] 141 mmol/L Normal 136-[address] [facility] Comment on above: Performed By: #### C BC #### [facility] [address] [address] [address] Nikky Man Urea nitrogen [Mass/Vol] 27.0 mg/dL Critically high 7.0-18.0 [facility] Comment on above: Performed By: #### C BC #### [facility] [address] [address] [address] Nikky Man Urea nitrogen/Creatini ne [Mass ratio] 11.5 mg/mg Normal [facility] Comment on above: Performed By: #### C BC #### [facility] [address] [address] [address] Nikky Man XR KUB 1 VIEWon [...] GEMA OTTO Date: 2022-05-01 17:[address] [facility] URINE PROFILEon 2 Bilirubin Ql (U) Negative Normal NEGATIVE [facility] Comment on above: Performed By: #### C BC #### [facility] [address] [place] [address] Dr. Nikky Man Clarity (U) CLEAR Normal CLEAR [facility] Comment on above: Performed By: #### C BC #### [facility] [address] [place] [address] Dr. Nikky Man Color (U) LT. YELLOW Normal YELLOW [facility] Comment on above: Performed By: #### C BC #### [facility] [address] [place] [address] Dr. Nikky Man ERUAHD A micrscopic examina tion will be performed if indicated. Normal [facility] Comment on above: Performed By: #### C BC #### [facility] [address] [place] [address] Dr. Nikky Man Glucose Ql (U) Negative Normal NEGATIVE [facility] Comment on above: Performed By: #### C BC #### [facility] [address] [place] [address] Dr. Nikky Man Hemoglobin Ql (U) LARGE Abnormal NEGATIVE [facility] Comment on above: Performed By: #### C BC #### [facility] [address] [place] [address] Dr. Nikky Man Ketones Ql (U) Negative Normal NEGATIVE [facility] Comment on above: Performed By: #### C BC #### [facility] [address] [place] [address] Dr. Nikky Man LEUKOCYTES Negative Normal NEGATIVE [facility] Comment on above: Performed By: #### C BC #### [facility] [address] [place] [address] Dr. Nikky Man Nitrite Ql (U) Negative Normal NEGATIVE [facility] Comment on above: Performed By: #### C BC #### [facility] [address] [place] [address] Dr. Nikky Man pH (U) 6.0 [pH] Normal 5-[address] [facility] Comment on above: Performed By: #### C BC #### [facility] [address] [place] [address] Dr. Nikky Man SPEC GRAVITY 1.015 Normal 1.005-<=1.025 [facility] Comment on above: Performed By: #### C BC #### [facility] [address] [place] [address] Dr. Nikky Man UA PROTEIN TRACE Normal NEGATIVE/ TRACE [facility] Comment on above: Performed By: #### C BC #### [facility] [address] [place] [address] Dr. Nikky Man UR MICRO IND INDICATED Normal [facility] Comment on above: Performed By: #### C BC #### [facility] [address] [place] [address] Dr. Nikky Man Urobilinogen Qn (U) 0.2 {Chandni'U}/dL Normal 0.2 - 1.0 [facility] Comment on above: Performed By: #### C BC #### [facility] [address] [place] [address] Dr. Nikky Man URINE MICROSCOPIC ONLYon BACTERIA NONE SEEN Normal NONE SEEN [facility] Comment on above: Performed By: #### C BC #### [facility] [address] [place] [address] Dr. Nikky Man Bacteria identified Cx Nom (U) NOT INDICATED Normal [facility] Comment on above: Performed By: #### C BC #### [facility] [address] [place] [address] Dr. Nikky Man CAST NONE SEEN Normal NONE SEEN [facility] Comment on above: Performed By: #### C BC #### [facility] [address] [place] [address] Dr. iNkky Man Crystals LM Nom (Urine sed) NONE SEEN Normal NONE SEEN [facility] Comment on above: Performed By: #### C BC #### [facility] [address] [address] [address] Nikky Man Epithelial cells LM Ql (Urine sed) RARE Normal NONE SEEN /RARE [facility] Comment on above: Performed By: #### C BC #### [facility] [address] [place] [address] Dr. Nikky Man MUCOUS NONE SEEN Normal NONE SEEN [facility] Comment on above: Performed By: #### C BC #### [facility] [address] [place] [address] Dr. Nikky Man RBC 20-50 Abnormal 0-2 [facility] Comment on above: Performed By: #### C BC #### [facility] [address] [place] [address] Dr. Nikky Man WBC 0-2 Abnormal NONE SEEN [facility] Comment on above: Performed By: #### C BC #### [facility] [address] [place] [address] Dr. Nikky Man ARUP Miscellaneous test 1on 06-05-2019 Miscellaneous Test 1 SEE NOTE Normal [facility] Comment on above: Result Comment: Test name Result Flag Units RefIntvl ---- PCA3 by TMA - Score 5 0-24 PCA3 by TMA - Result Negative A negative result is associated with decreased likelihood of a positive biopsy for prostate cancer. INTERPRETIVE DATA: PCA3 by TMA The [employer] PCA3 assay is an in vitro nucleic acid amplification test utilizing target capture, mill beam fitter-mediated amplification, and a hybridization-protection assay for amplicon [...] history and other relevant data. Performed by [employer], [address] [place] [id number] [email or web address], Jae Marquez MD - Lab. Director Performed By: #### [id number] #### [facility] [address] [place] [address] [place] [facility] [place] 1on 05-29-2019 [employer] [id number] Normal [facility] Comment on above: Result Comment: Ca ected result; previously reported as pca3 [id number] on 05/28/2019 at 19:45 by V/AUT Performed By: #### [id number] #### [facility] [address] [place] [address] Urinalysis, reflex to micros copicon 11-28-2018 Bilirubin Ql (U) Negative Normal Negative [facility] Clarity (U) Clear Normal Clear [facility] Color (U) Yellow Normal Straw/Traverse [facility] Glucose Ql (U) >=1000 Abnormal Negative [facility] Hemoglobin Ql (U) Negative Normal Negative [facility] Ketones Ql (U) Negative Normal Negative [facility] Leukocyte esterase Test strip Ql (U) Negative Normal Negative [facility] Nitrite Ql (U) Negative Normal Negative [facility] pH (U) 5.5 [pH] Normal 5.0-9.0 [facility] Protein Ql (U) Negative Normal Negative [facility] Specific gravity (U) [Rel density] 1.031 Normal 1.005-1.03 [facility] Urobilinogen Qn (U) 0.2 {Chandni'U}/dL Normal < 2.0 [facility] Vital Signs Date Time Vital Sign Value Performing Clinician Facility 05-05-2024 11:07-0400 Blood Pressure Location Pelon COLES [facility] 05-05-2024 11:07-0400 Body temperature 98.6 [degF] Pelonneela COLES [facility] 05-05-2024 11:07-0400 Diastolic blood pressure 86 mm[Hg] Pelon COLES [facility] 05-05-2024 11:07-0400 Heart rate 85 /min Pelon COLES [facility] 05-05-2024 11:07-0400 Respiratory rate 16 /min Pelon COLES [facility] 05-05-2024 11:07-0400 Systolic blood pressure 139 mm[Hg] Pelon COLES [facility] 03-25-2024 09:00-0400 Body height 177.8 cm [facility] 03-25-2024 09:00-0400 Body mass index (BMI) [Ratio] 34.1 kg/m2 [facility] 03-25-2024 09:00-0400 Body weight 107.95 kg [facility] 03-25-2024 09:00-0400 Diastolic blood pressure 84 mm[Hg] [facility] 03-25-2024 09:00-0400 Heart rate 81 /min [facility] 03-25-2024 09:00-0400 Respiratory rate 12 /min [facility] 03-25-2024 09:00-0400 Systolic blood pressure 158 mm[Hg] [facility] 01-22-2024 11:26-0500 Body height 177.8 cm [facility] 01-22-2024 11:26-0500 Body mass index (BMI) [Ratio] 34.8 kg/m2 [facility] 01-22-2024 11:26-0500 Body weight 110.22 kg [facility] 01-22-2024 11:26-0500 Diastolic blood pressure 77 mm[Hg] [facility] 01-22-2024 11:26-0500 Heart rate 78 /min [facility] 01-22-2024 11:26-0500 Respiratory rate 16 /min [facility] 01-22-2024 11:26-0500 Systolic blood pressure 160 mm[Hg] [facility] 01-10-2024 08:43-0500 Body height 177.8 cm [facility] 01-10-2024 08:43-0500 Body mass index (BMI) [Ratio] 34.2 kg/m2 [facility] 01-10-2024 08:43-0500 Body weight 108.12 kg [facility] 01-10-2024 08:43-0500 Diastolic blood pressure 76 mm[Hg] [facility] 01-10-2024 08:43-0500 Heart rate 75 /min [facility] 01-10-2024 08:43-0500 Respiratory rate 12 /min [facility] 01-10-2024 08:43-0500 Systolic blood pressure 173 mm[Hg] [facility] 12-17-2023 11:31-0500 Blood Pressure Location Pelon COLES [facility] 12-17-2023 11:31-0500 Diastolic blood pressure 100 mm[Hg] Pelon COLES [facility] 12-17-2023 11:31-0500 Heart rate 70 /min Pelon COLES [facility] 12-17-2023 11:31-0500 Respiratory rate 16 /min Pelon COLES [facility] 12-17-2023 11:31-0500 Systolic blood pressure 151 mm[Hg] Pelon COLES [facility] 10-29-2023 14:25-0500 Blood Pressure Location Pelon COLES [facility] 10-29-2023 14:25-0500 Diastolic blood pressure 88 mm[Hg] Pelon COLES [facility] 10-29-2023 14:25-0500 Heart rate 87 /min Pelon COLES [facility] 10-29-2023 14:25-0500 Respiratory rate 16 /min Pelon COLES [facility] 10-29-2023 14:25-0500 Systolic blood pressure 138 mm[Hg] Pelon COLES [facility] 10-23-2023 11:30-0500 Body height 177.8 cm Sp Ball Other [facility] 10-23-2023 11:30-0500 Body mass index (BMI) [Ratio] 32.77 kg/m2 Sp Ball Other [employer] Other 10-23-2023 11:30-0500 Body weight 103.6 kg Sp Ball Other [facility] 10-23-2023 11:30-0500 Diastolic blood pressure 89 mm[Hg] Sp Ball Other [facility] 10-23-2023 11:30-0500 Systolic blood pressure 162 mm[Hg] Sp Ball Other [facility] 10-05-2023 14:15-0500 Blood Pressure Location Duran CRANDALL [facility] 10-05-2023 14:15-0500 Diastolic blood pressure 82 mm[Hg] Duran MANL [facility] [place] 10-05-2023 14:15-0500 Heart rate 80 /min Duran NILL [facility] 10-05-2023 14:15-0500 Respiratory rate 16 /min Duran NILL [facility] [place] 10-05-2023 14:15-0500 Systolic blood pressure 144 mm[Hg] Duran NILL [facility] [place] 04-24-2023 11:00-0400 Body height 177.8 cm Sp Ball Other [employer] Other 04-24-2023 11:00-0400 Body mass index (BMI) [Ratio] 34.38 kg/m2 Sp Ball Other [employer] Other 04-24-2023 11:00-0400 Body weight 108.68 kg Sp Ball Other [employer] Other 04-24-2023 11:00-0400 Diastolic blood pressure 80 mm[Hg] Sp Ball Other [employer] Other 04-24-2023 11:00-0400 Respiratory rate 12 /min Sp Ball Other [employer] Other 04-24-2023 11:00-0400 Systolic blood pressure 138 mm[Hg] Sp Ball Other [employer] Other 02-14-2023 15:15-0400 Body height 177.8 cm Alfonzo Ashford II Other [employer] Other 02-14-2023 15:15-0400 Body mass index (BMI) [Ratio] 35.15 kg/m2 Alfonzo Toussaintle II Other [facility] Other 02-14-2023 15:15-0400 Body weight 111.13 kg Alfonzo Becerraisle II Other [facility] Other 01-22-2023 11:00-0500 Body height 177.8 cm Sp Ball Other [employer] Other 01-22-2023 11:00-0500 Body mass index (BMI) [Ratio] 35.44 kg/m2 Sp Ball Other [employer] Other 01-22-2023 11:00-0500 Body weight 112.04 kg Sp Ball Other [employer] Other 01-22-2023 11:00-0500 Diastolic blood pressure 84 mm[Hg] Sp Ball Other [employer] Other 01-22-2023 11:00-0500 Respiratory rate 12 /min Sp Ball Other [employer] Other 01-22-2023 11:00-0500 Systolic blood pressure 136 mm[Hg] Sp Ball Other [employer] Other 12-18-2022 15:12-0500 Blood Pressure Location Pelon COLES [facility] 12-18-2022 15:12-0500 Diastolic blood pressure 72 mm[Hg] Pelon COLES [facility] 12-18-2022 15:12-0500 Heart rate 68 /min Pelon COLES [facility] 12-18-2022 15:12-0500 Respiratory rate 16 /min Pelon COLES [facility] 12-18-2022 15:12-0500 Systolic blood pressure 127 mm[Hg] Pelon COLES [facility] 12-14-2022 15:30-0500 Body height 177.8 cm [employer] Other [facility] Other 12-14-2022 15:30-0500 Body mass index (BMI) [Ratio] 34.29 kg/m2 [employer] Other [facility] Other 12-14-2022 15:30-0500 Body weight 108.41 kg [employer] Other [facility] Other 08-28-2022 09:20-0400 Diastolic blood pressure 84 mm[Hg] Pacc 2 Work Phone: [facility] 08-28-2022 09:20-0400 Heart rate 72 /min Pacc 2 Work Phone: [facility] 08-28-2022 09:20-0400 Systolic blood pressure 152 mm[Hg] Pacc 2 Work Phone: [facility] 08-28-2022 09:16-0400 Body height 175.3 cm Pacc 2 Work Phone: [facility] 08-28-2022 09:16-0400 Body temperature 98.49 [degF] Pacc 2 Work Phone: [facility] 08-28-2022 09:16-0400 Body weight 105.23 kg P[facility] 2 Work Phone: [facility] 08-28-2022 09:16-0400 Respiratory rate 16 /min Pacc 2 Work Phone: [facility] 08-28-2022 09:16-0400 SaO2% (BldA) [Mass fraction] 98 % Pacc 2 Work Phone: [facility] 08-11-2022 10:49-0400 Body weight 99.79 kg Noelle Vega MD Work Phone: [facility] 08-11-2022 10:49-0400 Diastolic blood pressure 89 mm[Hg] Noelle Vega MD Work Phone: [facility] 08-11-2022 10:49-0400 Heart rate 66 /min Noelle Vega MD Work Phone: [facility] 08-11-2022 10:49-0400 Systolic blood pressure 176 mm[Hg] Noelle Vega MD Work Phone: [facility] 03-13-2022 15:03-0400 Blood Pressure Location Pelon COLES [facility] 03-13-2022 15:03-0400 Diastolic blood pressure 87 mm[Hg] Pelon COLES [facility] 03-13-2022 15:03-0400 Heart rate 78 /min Pelon COLES [facility] 03-13-2022 15:03-0400 Systolic blood pressure 164 mm[Hg] Pelon COLES [facility] Encounters Encounter Date Encounter Type Care Provider Facility Start: 12-19-2024 ambulatory Pelon Escalonai ty:[facility] Start: 07-07-2024 ambulatory Pelon COLES Facili ty:[facility] Start: 06-26-2024 ambulatory Pelon Escalonai ty:[id number] Start: 06-23-2024 ambulatory Pelon Escalonai ty:[facility] Start: 05-20-2024 End: 05-20-2024 ambulatory Pelon Sil SANKET Facility:[facility] Start: 05-20-2024 End: 05-20-2024 Patient encounter procedure [facility] Start: 05-05-2024 End: 05-05-2024 Lab Drop off Pelon COLES [facility] Start: 05-05-2024 End: 05-05-2024 ambulatory Pelonneela COLES Facility:[id number] Start: 05-05-2024 End: 05-05-2024 Patient encounter procedure Pelon COLES [facility] Start: 03-25-2024 End: 03-25-2024 ambulatory [facility] Work Phone: Start: 03-25-2024 End: 03-25-2024 Patient encounter procedure [facility] Work Phone: Start: 02-22-2024 Non-patient / Non-visit [facility] Work Phone: Start: 02-01-2024 Non-patient / Non-visit [facility] Work Phone: Start: 01-26-2024 Non-patient / Non-visit [facility] Work Phone: Start: 01-22-2024 End: 01-22-2024 Encounter for general adult medical examination without abnormal findings [facility] Start: 01-22-2024 End: 01-22-2024 Patient encounter procedure [facility] Work Phone: Start: 01-10-2024 End: 01-10-2024 ambulatory [facility] Work Phone: Start: 01-10-2024 End: 01-10-2024 Patient encounter procedure [facility] Work Phone: Start: 12-19-2023 ambulatory Pelon COLES Facili ty:[facility] Start: 12-17-2023 End: 12-17-2023 ambulatory Pelon COLES Facility:[facility] [place] Start: 12-17-2023 End: 12-17-2023 Patient encounter procedure Pelon COLES [facility] [place] Start: 12-14-2023 ambulatory Pelon COLES Facili ty:[facility] Start: 11-28-2023 End: 11-28-2023 ambulatory Pelon COLES Facility:[facility] Start: 11-28-2023 End: 11-28-2023 Lab Drop off Pelon COLES [facility] Start: 11-27-2023 End: 11-27-2023 Patient encounter procedure Pelon COLES [facility] Start: 11-27-2023 End: 11-27-2023 ambulatory Pelon COLES Facility:[facility] Start: 11-23-2023 End: 11-23-2023 ambulatory Sp Chowdary Other [facility] [employer] [facility] Other Start: 11-23-2023 Telephone encounter Sp Chowdary [facility] Start: 11-14-2023 End: 11-14-2023 ambulatory Duran R NILL Facility: [facility] Start: 11-14-2023 End: 11-14-2023 Patient encounter procedure Duran R NILL General Surgery Nill/[facility] [place] Start: 11-05-2023 ambulatory Duran NILL Facility:[facility] Start: 11-01-2023 End: 11-01-2023 ambulatory Sp Chowdary Other [employer] Other Start: 11-01-2023 Telephone encounter Sp Chowdary [facility] Start: 10-31-2023 End: 10-31-2023 ambulatory Duran R DONOVANL Facility:CD:[id number] Start: 10-29-2023 End: 10-29-2023 ambulatory Pelon COLES Facility: [facility] Start: 10-29-2023 End: 10-29-2023 Patient encounter procedure Pelon COLES [facility] Start: 10-23-2023 End: 10-23-2023 ambulatory Sp Chowdary Other [facility] [employer] Other Start: 10-23-2023 Office outpatient vi sit 25 minutes Sp Chowdary [facility] Start: 10-23-2023 End: 10-23-2023 Patient encounter procedure [facility] Work Phone: Start: 10-05-2023 End: 10-05-2023 ambulatory Duran R DONOAVNL Facility: [facility] Start: 10-05-2023 End: 10-05-2023 Patient encounter procedure Duran R DONOVANL General Surgery [facility] [place] Start: 09-11-2023 End: 09-11-2023 ambulatory Pelon Coles Facility:[facility] Start: 09-11-2023 End: 09-11-2023 ambulatory DO Sp Chowdary Work Phone: [facility] Work Phone: Start: 09-11-2023 End: 09-11-2023 Patient encounter procedure DO Sp Chowdary Work Phone: [facility] [place] Work Phone: Start: 09-02-2023 End: 09-02-2023 ambulatory Sp Chowdary Other [employer] Other Start: 09-02-2023 Telephone encounter Sp JOHNSON [facility] Start: 08-08-2023 End: 08-08-2023 ambulatory Sp Chowdary Other [employer] Other Start: 08-08-2023 Nursing evaluation o f patient and report Sp Chowdary [facility] Start: 07-20-2023 End: 07-20-2023 ambulatory Sp Chowdary Other [employer] Other Start: 07-20-2023 Telephone encounter Sp JOHNSON [facility] Start: 06-18-2023 ambulatory Pelon COLES Facili ty:[facility] [place] Start: 06-12-2023 End: 06-12-2023 ambulatory Pelon COLES Facility:[facility] Start: 05-15-2023 End: 05-15-2023 ambulatory Sp Chowdary Other [employer] Other Start: 05-15-2023 Telephone encounter Sp JOHNSON [facility] Start: 04-26-2023 ambulatory RADHA RIVERA . Facili ty:[facility] Start: 04-24-2023 End: 04-24-2023 ambulatory Sp Chowdary Other [employer] Other Start: 04-24-2023 Office outpatient vi sit 25 minutes Sp Chowdary [facility] Start: 04-10-2023 ambulatory NARENDRANATH LAKSHMIPATHY . Facility: Start: 03-23-2023 End: 03-24-2023 ambulatory RADHA HALKER . Facility:[facility] Start: 03-08-2023 End: 03-08-2023 ambulatory Sp Chowdary Other [employer] Other Start: 03-08-2023 Telephone encounter Sp JOHNSON [facility] Start: 03-06-2023 End: 03-06-2023 ambulatory NARENDRANATH LAKSHMIPATHY . Facility:[facility] Start: 02-26-2023 Encounter for genera l adult medical examination without abnormal findings NARENDRANATH LAKSHMIPATHY . [facility] Start: 02-22-2023 End: 02-23-[address] SP CHOWDARY Facility:[facility] Start: 02-22-2023 End: 02-23-2023 ambulatory NARENDRANATH LAKSHMIPATHY . Facility:[facility] Start: 02-22-2023 End: 02-23-2023 ambulatory NARENDRANATH LAKSHMIPATHY . Facility:[facility] Start: 02-22-2023 End: 02-23-2023 Encounter for general adult medical examination without abnormal findings NARENDRANATH LAKSHMIPATHY . Facility:[facility] Start: 02-14-2023 End: 02-14-2023 ambulatory Sp Chowdary [employer] Other Start: 02-14-2023 Office outpatient vi sit 25 minutes Alfonzo Becerraisle II [facility] Start: 02-05-2023 End: 02-05-2023 ambulatory Sp Chowdary Other [employer] Other Start: 02-05-2023 Telephone encounter Sp Chowdary FP [facility] Start: 01-22-2023 End: 01-22-2023 ambulatory Sp Chowdary Other [employer] Other Start: 01-22-2023 Encounter for genera l adult medical examination without abnormal findings Sp Chowdary [facility] Start: 01-22-2023 Periodic preventive med est patient 40-64yrs Sp Chowdary [facility] Start: 12-18-2022 End: 12-18-2022 Patient encounter procedure Pelon COLES [facility] Start: 12-14-2022 End: 12-14-2022 ambulatory Sp Chowdary [facility] [employer] Other Start: 12-14-2022 FQ visit new patient Alfonzo Becerrarachael boo II [facility] Start: 12-12-2022 End: 12-12-2022 Patient encounter procedure Duran CRANDALL General Surgery [facility]ill[facility] Start: 12-05-2022 End: 12-06-[address] PELON COLES . Facility: Start: 11-28-2022 Letter encounter Sarah matos Start: 09-27-2022 End: 09-28-[address] PELON COLES . Facility: Start: 09-26-2022 End: 09-26-2022 ambulatory NOELLE VEGA Facility:[facility] Start: 09-26-2022 End: 09-26-2022 Patient encounter procedure Noelle Vega MD Work Phone: Urology Comment on above: Nephrolithiasis (Estefania jeannie Dx); Calculus of kidney with calculus of ureter Start: 09-12-2022 Orders Only Noelle Matthew Work Phone: Urology Comment on above: Hyperkalemia (Primar y Dx) Start: 09-11-2022 End: 09-12-2022 ambulatory NOELLE VEGA Facility:[facility] Start: 08-28-2022 End: 08-28-2022 ambulatory [facility] Facility:[facility] Start: 08-28-2022 End: 08-28-2022 Admission to establishment Pac Av 2 Work Phone: [facility] Start: 08-28-2022 End: 08-28-2022 Preprocedural examination done Pac 2 Work Phone: Pre Anesthesia Start: 08-28-2022 Encounter for other preprocedural examination [facility] Start: 08-28-2022 End: 08-29-2022 ambulatory NOELLE VEGA [...] End: 08-28-2022 Subsequent hospital visit by physician [facility] Work Phone: [facility] Radiology CT Scan Comment on above: Calculus of kidney w ith calculus of ureter [N20.2] Start: 08-24-2022 Telephone encounter Noelle banuelos MD Work Phone: Urology Comment on above: Schedule Surgery Start: 08-16-2022 Telephone encounter Noelle banuelos MD Work Phone: Urology Comment on above: Other (CD from [facility] XR KUB) Start: 08-11-2022 End: 08-11-2022 ambulatory [...] CHOWDARY Facility:[facility] Start: 06-05-2022 Letter encounter Sarah jean baptiste Start: 06-01-2022 End: 06-02-[address] SP CHOWDARY Facility:[facility] Start: 05-25-2022 End: 05-25-[address] SP CHOWDARY Facility:[facility] Start: 05-16-2022 End: 05-17-[address] SP CHOWDARY Facility:[facility] Start: 05-08-2022 Encounter for other preprocedural examination DR PELON COLES . [facility] Start: 05-05-2022 End: 05-05-[address] PELON COLES . Facility:[facility] Start: 05-05-2022 End: 05-05-2022 Patient encounter procedure Pelon COLES [facility] Start: 05-04-2022 End: 05-05-[address] PELON COLES . Facility:[facility] Start: 05-04-2022 End: 05-05-2022 Encounter for other preprocedural examination DR PELON COLES . Facility:[facility] Start: 05-01-2022 End: 05-02-[address] SP CHOWDARY Facility:[facility] Start: 04-21-2022 End: 04-21-[address] SP CHOWDARY Facility:[facility] Start: 03-14-2022 End: 03-14-2022 Patient encounter procedure Pelon COLES [facility] Start: 03-13-2022 End: 03-13-2022 Patient encounter procedure Pelon COLES [facility] Start: 01-19-2022 Adult health examination Rohan Chowdary Other [employer] Other Start: 02-26-2017 End: 02-27-2017 ambulatory UNKNOWN PROVIDER [facility] Procedures Date Procedure Procedure Detail Performing Clinician Start: 11-27-2023 Transrectal biopsy of prostate using ultrasound guidance Pelon COLES Start: 11-27-2023 Transurethral insertion of prostatic urethral lift implant Pelon COLES Start: 10-31-2023 Colonoscopy Duran CRANDALL Start: 10-31-2023 Esophagogastroduodenoscopy Duran CRANDALL Start: 09-11-2023 MR prostate wo/w con DO Sp Chowdary Work Phone: Start: 09-26-2022 Urnls dip stick/tablet rgnt auto w/o microscopy Noelle Vega MD Work Phone: Start: 08-28-2022 Antibody screen NOELLE VEGA Comment on above: Order Comment: Specimen Type: BLOOD SPEC IMENOrdering Facility: [facility] Address: [address] [place] [address] Performed By: #### T [id number] ####JOELLE BLOOD BANKIA [id number] [place] [address] [place] Start: 08-28-2022 Ct abdomen & pelvis w/o contrast material Noelle Vega MD Work Phone: Start: 08-11-2022 Urnls dip stick/tablet rgnt auto w/o microscopy Noelle Vega MD Work Phone: Start: 08-30-2021 Cystoscopy Pelon COLES Start: 08-24-2020 Cystoscopy Pelon COLES Start: 12-16-2019 Cystoscopy Pelon COLES Start: 09-19-2019 Colonoscopy Duran CRANDALL Start: [...] CANCER SCREENING DISCUSSION PROSTATE CANCER SCREENING DISCUSSION [facility] Start: 02-26-2023 Hemoglobin A1c/Hemoglobin.total in Blood HBA1C [facility] Start: 09-19-2022 End: 11-19-2022 Basic metabolic 2000 panel - Serum or Plasma BASIC METABOLIC PNL Lab Routine Hyperkalemia Expected: 09/19/2022 (Approximate), Expires: 11/19/2022 [facility] Work Phone: Comment on above: Expected: 09/19/2022 (Approximate), Expi res: 11/19/2022 Start: 08-28-2022 End: 10-28-2022 aPTT in Platelet poor plasma by Coagulation assay ACTIVATED PTT Lab Routine Nephrolithiasis Gross hematuria Expected: 08/28/2022, Expires: 10/28/2022 [facility] Work Phone: Comment on above: Expected: 08/28/2022, Expires: 2 Start: 08-28-2022 End: 10-28-2022 Bacteria identified in Urine by Culture URINE CULTURE Microbiology Routine Nephrolithiasis Expected: 08/28/2022, Expires: 10/28/2022 [facility] Work Phone: Comment on above: Expected: 08/28/2022, Expires: 2 Start: 08-28-2022 End: 10-28-2022 CBC W Auto Differential panel - Blood CBC + DIFF Lab Routine Nephrolithiasis Expected: 08/28/2022, Expires: 10/28/2022 [facility] Work Phone: Comment on above: Expected: 08/28/2022, Expires: 2 Start: 08-28-2022 End: 10-28-2022 Comprehensive metabolic 2000 panel - Serum or Plasma COMP METABOLIC PANEL Lab Routine Nephrolithiasis Expected: 08/28/2022, Expires: 10/28/2022 [facility] Work Phone: Comment on above: Expected: 08/28/2022, Expires: 2 Start: 08-28-2022 End: 10-28-2022 CONFIRM BLOOD TYPE CONFIRM BLOOD TYPE Blood Bank Routine Pre-op evaluation Expected: 08/28/2022, Expires: 10/28/2022 [facility] Work Phone: Comment on above: Expected: 08/28/2022, Expires: 2 Start: 08-28-2022 End: 10-28-2022 Hemoglobin A1c in Blood [facility] Work Phone: Comment on above: Expected: 08/28/2022, Expires: 2 Start: 08-28-2022 End: 10-28-2022 PT panel - Platelet poor plasma by Coagulation assay PROTHROMBIN TIME/PT Lab Routine Nephrolithiasis Gross hematuria Expected: 08/28/2022, Expires: 10/28/2022 [facility] Work Phone: Comment on above: Expected: 08/28/2022, Expires: 2 Start: 08-28-2022 End: 10-28-2022 TYPE AND SCREEN,30 DAY TYPE AND SCREEN,30 DAY Blood Bank Routine Nephrolithiasis Expected: 08/28/2022, Expires: 10/28/2022 [facility] Work Phone: Comment on above: Expected: 08/28/2022, Expires: 2 Start: 08-19-2022 Influenza vaccination Influenza Vaccine (#[facility]) [facility] Start: 08-11-2022 End: 10-11-2022 25-hydroxyvitamin D3 [Mass/volume] in Serum or Plasma VITAMIN D 25 HYDROXY Lab Routine Nephrolithiasis Secondary hyperparathyroidism of renal origin (HCC) Expected: 08/11/2022, Expires: 10/11/2022 [facility] Work Phone: Comment on above: Expected: 08/11/2022, Expires: 2 Start: 08-11-2022 End: 10-11-2022 Parathyrin.intact [Mass/volume] in Serum or Plasma PTH INTACT BLD Lab Routine Nephrolithiasis Expected: 08/11/2022, Expires: 10/11/2022 [facility] Work Phone: Comment on above: Expected: 08/11/2022, Expires: 2 Start: 08-11-2022 End: 10-11-2022 Urinalysis complete panel - Urine URINALYSIS, WITH MICROSCOPIC Lab Routine Nephrolithiasis Expected: 08/11/2022, Expires: 10/11/2022 [facility] Work Phone: Comment on above: Expected: 08/11/2022, Expires: 2 Start: 11-19-2021 DEPRESSION ASSESSMENT DEPRESSION ASSESSMENT [facility] Start: 11-19-2017 Annual wellness visit Annual Wellness Visit (G0438) [facility] Start: 2017 PROSTATE CANCER SCREENING DISCUSSION PROSTATE CANCER SCREENING DISCUSSION [facility] Start: 02-22-2012 Measurement of occult blood in single stool specimen FIT [facility] Start: 02-22-2012 Screening for malignant neoplasm of colon CRC Screening [facility] Start: 02-22-2012 Shingles (RZV) Vaccine (1 of 2) Shingles (RZV) Vaccine (1 of 2) [facility] Start: 02-22-2012 SHINGRIX VACCINE (1 of 2) SHINGRIX VACCINE (1 of 2) [facility] Start: 2007 COLOGUARD (FIT-DNA) COLOGUARD (FIT-DNA) [facility] Start: 2007 Colonoscopy COLONOSCOPY [facility] Start: 2007 COLORECTAL CANCER SCREENING COLORECTAL CANCER SCREENING [facility] Start: [address] COLONOGRAPHY [facility] Start: 2007 DIABETES SCREEN DIABETES SCREEN [facility] Start: 2007 FECAL OCCULT BLOOD FECAL OCCULT BLOOD [facility] Start: 2007 SIGMOIDOSCOPY SIGMOIDOSCOPY [facility] Start: 1997 Lipid panel Cholesterol [facility] Start: 1997 LIPID SCREEN LIPID SCREEN [facility] Start: 1981 Urine microalbumin profile DTAP,TDAP,TD (1 - Tdap) [facility] Start: 02-22-1980 ANNUAL PCP TEAM CHRONIC DISEASE VISIT ANNUAL PCP TEAM CHRONIC DISEASE VISIT [facility] Start: 02-22-1980 BP CONTROLLED (<130/80) BP CONTROLLED (<130/80) [facility] Start: 02-22-1980 Hepatitis B surface antibody level LDL CHOLESTEROL [facility] Start: 02-22-1980 Hepatitis C screening Hepatitis C Antibody [facility] Start: 02-22-1980 HEPATITIS C SCREENING HEPATITIS C SCREENING [facility] Start: 02-22-1980 HIV SCREENING HIV SCREENING [facility] Start: 02-22-1980 Tetanus + diphtheria + acellular pertussis vaccine (product) Tdap Booster [facility] Start: 1977 HIV screening HIV Test [facility] Start: 1974 Adult depression screening assessment DEPRESSION SCREENING [facility] Start: 02-22-1972 3 comp foot exam completed DIABETIC FOOT EXAM [facility] Start: 02-22-1972 Hepatitis B screening URINE ALBUMIN:CREATININE RATIO [facility] Start: 02-22-1972 Hepatitis C antibody, confirmatory test DILATED RETINAL EXAM [facility] Start: 02-22-1968 PNEUMOCOCCAL (1 - PCV) PNEUMOCOCCAL (1 - PCV) [facility] Start: 1967 Hemoglobin A1c/Hemoglobin.total in Blood HBA1C [facility] Start: 1962 COVID-19 Vaccine (#1) COVID-19 Vaccine (#1) [facility] Start: 1962 Screening for malignant neoplasm of colon Colonoscopy [facility] Comprehensive metabolic 2000 panel - Serum or Plasma [facility] End: 09-10-2023 Ct abdomen & pelvis w/o contrast material CT FLANK WO IVCON Radiology Routine Calculus of kidney with calculus of ureter 1 Occurrences starting 08/11/2022 until 09/10/2023 [facility] Work Phone: Comment on above: 1 Occurrences starting 08/11/2022 until 09[facility]10[facility] Immunizations Immunization Date Immunization Notes Care Provider Kendra garcia 08-08-2023 influenza, injectabl e, quadrivalent, preservative free Sp Chowdary Other [facility] 07-20-2023 influenza virus vaccine, unspecified formulation Duran CRANDALL [facility] [place] 08-13-2022 SARS-CoV-2 (COVID-19 ) [id number] Duran MANJames [facility] 07-26-2022 influenza virus vaccine, split virus (incl. purified surface antigen) Sp Chowdary Other [employer] Other 07-26-2022 influenza virus vaccine, unspecified formulation Duran CRANDALL [facility] 10-23-2021 COVID-19 Vaccine Pfi zer - Documentation Purposes Only Sp Chowdary Other [facility] 08-11-2021 influenza virus vaccine, split virus (incl. purified surface antigen) Sp Chowdary Other [employer] Other 08-11-2021 influenza virus vaccine, unspecified formulation [facility] 08-10-2021 influenza virus vaccine, unspecified formulation [facility]on [employer] [facility] 04-15-2021 SARS-CoV-2 (COVID-19 ) Ad26 vaccine, recombinant Pelon COLES [facility] 03-25-2021 SARS-CoV-2 (COVID-19 ) Ad26 vaccine, recombinant Pelon COLES [facility] 02-15-2021 SARS-CoV-2 (COVID-19 ) mRNA BNT-162b2 vax Duran CRANDALL [facility] 01-25-2021 SARS-CoV-2 (COVID-19 ) mRNA BNT-162b2 vax Duran MANL [facility] 01-13-2021 tetanus and diphther ia toxoids, adsorbed, preservative free, for adult use (5 Lf of tetanus toxoid and 2 Lf of diphtheria toxoid) Sp Chowdary Other [facility] 07-20-2020 influenza virus vaccine, split virus (incl. purified surface antigen) Sp Chowdary Other [facility] [employer] [place] Other 07-20-2020 influenza virus vaccine, unspecified formulation [facility] 08-18-2019 influenza virus vaccine, split virus (incl. purified surface antigen) Sp Chowdary Other [facility] [employer] [place] Other 08-18-2019 influenza virus vaccine, unspecified formulation [facility] 07-20-2019 influenza virus vaccine, live, attenuated, for intranasal use [facility] 08-26-2018 influenza virus vaccine, split virus (incl. purified surface antigen) Sp Chowdary Other [facility] [employer] [place] Other 08-26-2018 influenza virus vaccine, unspecified formulation [facility] [employer] [facility] 08-31-2017 influenza virus vaccine, unspecified formulation [facility] [employer] [facility] 08-31-2017 tetanus and diphther ia toxoids, adsorbed, preservative free, for adult use (5 Lf of tetanus toxoid and 2 Lf of diphtheria toxoid) Sp Chowdary Other [facility] 10-02-2016 pneumococcal conjuga te vaccine, 13 valent Sp Chowdary Other [facility] 10-02-2016 pneumococcal Conjuga te, unspecified formulation; Translations: [Need for prophylactic vaccination against Streptococcus pneumoniae (pneumococcus)] Sp Chowdary Other [facility] [employer] [place] Other 07-25-2016 tetanus and diphther ia toxoids, adsorbed, preservative free, for adult use (5 Lf of tetanus toxoid and 2 Lf of diphtheria toxoid) Sp Chowdary Other [facility] 07-21-2015 tetanus and diphther ia toxoids, adsorbed, preservative free, for adult use (5 Lf of tetanus toxoid and 2 Lf of diphtheria toxoid) Sp Chowdary Other [facility] 06-21-2015 pneumococcal polysaccharide vaccine, 23 valent Sp Epi Other [facility] 07-30-2013 tetanus and diphther ia toxoids, adsorbed, preservative free, for adult use (5 Lf of tetanus toxoid and 2 Lf of diphtheria toxoid) Sp Chowdary Other [facility] 08-01-2012 tetanus and diphther ia toxoids, adsorbed, preservative free, for adult use (5 Lf of tetanus toxoid and 2 Lf of diphtheria toxoid) Sp Chowdary Other [facility] 07-30-2008 diphtheria, tetanus toxoids and acellular pertussis vaccine, unspecified formulation Sp Epi Other [facility] 10-02-2001 Td(adult) unspecifie d formulation Pelon [employer] [facility] Payers Date Payer Category Payer Self-pay [id number] 2019 Private Health Insurance [facility] CHOICE PLUS [id number] 2019-Present [phone] [address] [place] [address] HMO [id number] 2016 Medicare [id number] 2001 Medicare [id number] 1962 Unknown [id number] 2.16.840.1.428219.3.579. 2.732 1962 Unknown [id number] 2.16.840.1.532063.3.579. 2.593 1962 Unknown [id number] 2.16.840.1.708775.3.579. 2.593 1962 Unknown [id number] 2.16.840.1.243211.3.579. 2.593 1962 Unknown [id number] 2.16.840.1.412450.3.579. 2.593 1962 Unknown [id number] 2.16.840.1.706215.3.579. 2.593 1962 Unknown [id number] 2.16.840.1.158038.3.579. 2.593 1962 Unknown [id number] 2.16.840.1.398173.3.579. 2.593 1962 Unknown [id number] 2.16.840.1.882254.3.579. 2.593 1962 Unknown [id number] 2.16.840.1.653589.3.579. 2.593 1962 Unknown [id number] 2.16.840.1.614777.3.579. 2.593 1962 Unknown [id number] 2.16.840.1.992116.3.579. 2.593 1962 Unknown [id number] 2.16.840.1.223922.3.579. 2.593 1962 Unknown [id number] 2.16.840.1.665273.3.579. 2.593 1962 Unknown [id number] 2.16.840.1.748873.3.579. 2.593 1962 Unknown [id number] 2.16.840.1.276006.3.579. 2.593 1962 Unknown [id number] 2.16.840.1.479395.3.579. 2.593 1962 Unknown [id number] 2.16.840.1.792201.3.579. 2.593 1962 Unknown [id number] 2.16.840.1.850522.3.579. 2.593 1962 Unknown [id number] 2.16.840.1.925551.3.579. 2.593 1962 Unknown [id number] 2.16.840.1.318253.3.579. 2.593 1962 Unknown [id number] 2.16.840.1.951431.3.579. 2.593 1962 Unknown [id number] 2.16.840.1.353258.3.579. 2.727 1962 Unknown [id number] 2.16.840.1.327701.3.579. 2.727 1962 Unknown [id number] 2.16.840.1.572936.3.579. 2.727 1962 Unknown [id number] 2.16.840.1.250575.3.579. 2.727 1960 Unknown [id number] 2.16.840.1.422640.3.579. 2.727 1960 Unknown [id number] 2.16.840.1.020924.3.579. 2.727 1962 Unknown [id number] 2.16.840.1.966964.3.579. 2.727 1962 Unknown [id number] 2.16.840.1.460610.3.579. 2.727 1962 Unknown [id number] 2.16.840.1.926562.3.579. 2.727 1962 Unknown [id number] 2.16.840.1.520790.3.579. 2.727 1962 Unknown [id number] 2.16.840.1.332523.3.579. 2.727 1962 Unknown [id number] 2.16.840.1.738172.3.579. 2.727 1962 Unknown [id number] 2.16.840.1.691584.3.579. 2.727 1962 Unknown [id number] 2.16.840.1.007174.3.579. 2.727 1962 Unknown [id number] 2.16.840.1.731019.3.579. 2.727 1962 Unknown [id number] 2.16.840.1.568649.3.579. 2. 1962 Unknown [id number] 2.16.840.1.023259.3.579. 2.727 1962 Unknown [id number] 2.16.840.1.749896.3.579. 2.727 1957 Medicare [id number] 1959 Unknown [id number] Private Health Insurance [facility] [id number] Unknown [employer] [id number] Unknown [id number] 2.16.840.1.310443.3.579. 2.531 Unknown [id number] 2.16.840.1.319794.3.579. 2.531 Unknown [id number] 2.16.840.1.105267.3.579. 2.531 Social History Date Type Detail Facility Start: 03-13-2022 End: 05-05-2024 Tobacco smoking status Never smoked tobacco (finding) [facility] Tobacco smoking status Never [facility] Sex Assigned At Male [facility] Tobacco smoking status NHIS Tobacco smoking consumption unknown [facility] Start: 1960 Sex Assigned At Not on file [facility] Start: 08-04-2022 End: 09-26-2022 Exposure to SARS-CoV-2 (event) Not sure [facility] History of tobacco use Passive smoker [facility] Start: 08-28-2022 Tobacco use and exposure Smokeless tobacco non-user [facility] Start: 08-28-2022 End: 09-11-2022 Alcohol intake Ex-drinker (finding) [facility] Start: 1960 Sex Assigned At Male F [facility] Medical Equipment Procedure Code Equipment Code [...] Facility 05-05-2024 Functional Status N/A [facility] 12-17-2023 Functional Status N/A [facility] 10-29-2023 Functional Status N/A [facility] 10-05-2023 Functional Status N/A [facility] Functional Status N/A [facility] Clinical Notes 03-13-2022 to 05-05-2024 Note [...] Follow these instructions at home: Medicines Take uuev-dkk-okrxjle and prescription medicines only as told by [...] important. Where to find more information National [place] of Diabetes and Digestive and Kidney Diseases: [...] depends on the type of prostatitis. Take fiix-quy-wbkbtvw and prescription medicines only as told by [...] provider. Document Revised: 12/10/2020 Document Reviewed: 12/10/2020 [employer] Patient Education 2022 QponDirect. Follow Up Care 05/05/2024 10:36:21 With:SANKET PRECIADO, Pelon Mujica, URL Address: [facility] [address] , [place] [address]- When: Unknown [facility] 12-17-2023 Hospital Discharg e instructions [...] Follow these instructions at home: Medicines Take zrnj-gwg-hzjfxub and prescription medicines only as told by [...] provider. Document Revised: 02/01/2022 Document Reviewed: 02/01/2022 [employer] Patient Education 2022 QponDirect. Follow Up Care 12/13/2023 11:10:14 With:Pelon COLES MD, URL Address: [facility] [address], [place] [phone] When: Unknown Comments:1 yr w/ PSA and KUB [facility] 11-23-2023 Evaluation note Encounter Date [...] 130 Decrease ISS to avoid hypoglycemic episodes [facility] Other 12-14-2023 Evaluation note* Encounter Date Diagnosis Assessment Notes Treatment Notes Treatment Clinical Notes Oct, Type 2 diabetes mellitus with hyperglycemia (ICD-10 - E11.65) [facility] Other 12-11-2023 Hospital Discharge instructions Follow Up Care 10/29/2023 11:16:58 With:Pelon COLES MD, URL Address: [facility] [address] [place] [address]- When: Unknown Comments:Scheduled for TRUS/bx on 11/27/23. [facility] [place] 12-05-2023 Evaluation note* Encounter [...] use, the patient reduces the risk for VT, CVA, HTN, cardiac dysrhythmias and sudden cardiac [...] active. 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 (ICD-10 - Z79.4) [facility] Other 11-17-2023 NoteChief Complaint consultation for anemia [...] tab(s), Oral, As Direct (more content not included)...[facility] HospitalComment on above:Result Comment: Electronically Signed By: KARLEY PRECIADO, Duran Mujica\.br\Date and Time Signed: 10/05/23 14:45 [id number] Hospital Discharge instructions Follow Up Care 10/02/2023 11:36:47 With:SANKET PRECIADO, Pelon Mujica, URL Address: [facility] [address] , [place] [address]- [phone] When: Unknown [facility] Meghann 09-01-2023 Evaluation note* Encounter Date Diagnosis Assessment Notes Treatment Notes Treatment Clinical Notes Jul, Controlled type 2 diabetes mellitus with hyperglycemia, without long-term current use of insulin (ICD-10 - E11.65) [facility] Other 07-25-2023 Note [id number]:127Kishore [facility] 06-12-2023 NoteCustom Cystoscopy ? Voiding after the [...] if you have a fever over 100 degrees.[facility] 04-24-2023 Evaluation note* Encounter Date Diagnosis [...] use, the patient reduces the risk for VT, CVA, HTN, cardiac dysrhythmias and sudden cardiac [...] E11.3393) Control BS and close f/u w/ recreation specialist Apr, Hyperlipidemia, mixe d (ICD-10 - [...] colon (ICD-10 - D12.2) 3 polypectomy - 2018 Due for colonoscopy this year. Mild anemia [...] [BMI ] 34.0-34.9, adult (ICD-10 - Z68.34) [facility] Other 04-06-2023 NoteCONSULTATION CONSULTATION DATE: 02/22/2023 TO: [...] our patients to inform us about any wfdb-wpk-gsphrbs medications or herbal remedies/nutritional supplements/alternative remedies. 2. [...] treatment options with their primary care provider.[facility]Fcbljvkj81-13-1442 Evaluation note * Encounter Date Diagnosis Assessment [...] move forward with anything in the future. [facility] Other 03-06-2023 Evaluation note* Encounter Date Diagnosis [...] is down from 13 - f/u Urology [facility] Other 01-30-2023 Hospital Discharge instructions Patient Education [...] urethra. Follow these instructions at home: Take ptfm-uwb-ylqkuyf and prescription medicines only as told by [...] 11/05/2006 Document Revised: 09/30/2019 Document Reviewed: 12/10/2017 [employer] Patient Education 2020 QponDirect. Follow Up Care 11/30/2022 15:02:18 With:SANKET PRECIADO, SMITH Newsome Address: [facility] [address] , [place] [address]- When: Unknown [facility]-26-[facility] Evaluation note* Encounter Date Diagnosis Assessment [...] does have some posttraumatic osteoarthritis and is iyhk-wp-lecy in the medial compartment. He has had [...] 3 months to check on his progress. [facility] Other 11-08-2022 NoteHNO ID: [id number] Author: Noelle Vega MD Service: ? Author [...] patient: Yes Procedure confirmed with physician and field support specialist: Yes Sign In: History and Physical Exam [...] urine metabolic studies if indicated. Noelle Vega MDGuardian [id number] Nurse Note* Arlene Miguel Or - 09/26/2022 2:58 PM EST UNIVERSAL PROTOCOL [...] Education Session: None Instruction Provided To: Patient Global Sales Manager Present: not applicable Discipline: Nursing Learning Topic: SURVIVAL SKILLS: Complication Prevention Symptom Management Patient Evaluation: Verbalizes understanding: Yes Supplemental Material Given: Written Material Instructed By Arlene Miguel Ma In Department Urology . documented in this encounterC[facility]11-08-2022 History of Present illness Narrative* Noelle Vega MD - 09/26/2022 2:14 PM EST CYSTOSCOPY WITH URETERAL STENT REMOVAL PROCEDURE NOTE: Dta Lopez is a 62 year old male who presents for cystoscopy and stent removal. 09/11/22 S/P LEFT PCNL, Ureteroscopy, laser lithotripsy with stent placement Stone analysis 70% COM and 20% COD Pt ID verified with patient: Yes Procedure verified with patient: Yes Procedure confirmed with physician and field support specialist: Yes Sign In: History and Physical Exam [...] indicated. Noelle Vega MD documented in this encounterCleveland Clinic [facility]10-25-2022 NoteHNO ID: [id number] Author: Flor Sahu PA-C Service: Hospital Medicine Author Type: Physician Manager It Training Type: Plan of Care Filed: 09/12/2022 12:58 [...] Lopez DATE: September 12, 2022 TIME: 12:57 [facility] CenterEfdggoma78-40-3625 NoteHNO ID: [id number] Author: GUERA Granados Service: Care Management Author Type: Inspector Eyeglass Frames Type: Care Mgt Initial Assessment Filed: 09/12/2022 11:00 AM Note Text: 10:58 AM CARE MANAGEMENT: ASSESSMENT AND DISCHARGE PLAN SERVICE DATE: September 12, 2022 SERVICE TIME: 10:59 AM PRIMARY CARE PHYSICIAN: Sp Chowdary DO Primary Contact: Extended Emergency Contact Information Primary Emergency Contact: JohnSvitlanamarco a [employer] Relation: Spouse ADMISSION STATUS: Extended Recovery Insurance Provider: [facility] CHOICE PLUS NEEDS PRIOR TO DISCHARGE Needs Prior to Discharge: To Be Determined;Pharmacy Bedside Delivery;Discharge Transportation POTENTIAL TRANSITION PLANS Home Based on clinical judgement, Care Management will address the following needs: No transitional/discharge planning needs at this time Patient's perception of need for this admission: kidney stone ADVANCE DIRECTIVES Current Advance Directive: None Grade Teacher Attempted to Assist with AD Completion: Yes [...] discharge within 30 days: No PATIENT SCREEN Patient/Band Manager Stated Goals: To have reduction in pain;To [...] at this time. FREEDOM OF CHOICE EXPLAINED: Mallard of Choice Given: No Reason Not Given: No placements necessary Are you interested in bedside delivery of your medications? Yes ASSESSMENT AND PLAN: Mr Lopez reports his will transport him home to [facility] at discharge. He has no anticipated transitional care needs for discharge. SIGNATURE: GUERA Granados PATIENT NAME: Dat Lopez DATE: September 12, 2022 TIME: 10:58 AM CONTACT #: [id number] [id number] NoteHNO ID: [id number] Author: Valdo Mcghee MD Service: Urology Author Type: Resident Type: Progress Notes Filed: 09/12/2022 10:45 AM Note Text: [facility] UROLOGY PROGRESS NOTE [...] Vega. Valdo Mcghee MD PGY-5, Urology Pager: [phone] 10:45 AM 09/12/2022 Interval/daily plan: Doing well. [...] Vega. Valdo Mcghee MD PGY-5, Urology Pager: [phone] After 1800 and on weekends please page [phone] for assistance. SUBJECTIVE -Patient doing well -Pain: [...] -- 1.67* GLUC -- -- -- 214* [facility]10-24-2022 NoteHNO ID: [id number] Author: Noelle Vega MD Service: Urology Author [...] infusion 100 mL/hr INTRAVENOUS CONTINUOUS phenol 1 [place] (CHLORASEPTIC) 1 [place] MUCOUS MEMBRANE (TOPICAL MOUTH AND THROAT) q [...] monitor - KUNAL - home regimen. - Ehler's Danlos - careful movement - Discharge teaching [...] September 11, 2022 4:19 PM PLEASE CONTACT VICE PROVOST OVERNIGHT IF ANY QUESTIONSMckay-Dee Hospital CenterQeunjgpt50-68-8290 NoteHNO ID: [id number] Author: RT Anisha(R) Service: Radiology Author Type: [...] BY: RT Anisha(R) September 11, 2022 11:55 [facility]ighDmzompdp14-51-1727 NoteHNO ID: [id number] Author: Caroline Larios APRN.SCIENTIFIC DATABASE CURATOR Service: ? Author Type: Nurse General Manager Food Type: Anesthesia Procedure Notes Filed: 09/11/2022 7:58 AM Note Text: ANESTHESIOLOGY PROCEDURE NOTE Airway General Information Procedure Start Time/Medication Administration: 09/11/2022 7:40 AM Patient location during procedure: OR Staffing Anesthesiologist: Melisa Rangel MD SCIENTIFIC DATABASE CURATOR: Caroline Larios APRN.SCIENTIFIC DATABASE CURATOR Performed by: SCIENTIFIC DATABASE CURATOR Indications and Patient Condition Indications for airway [...] 1 Airway not difficult SIGNATURE: Caroline Larios APRN.SCIENTIFIC DATABASE CURATOR PATIENT NAME: Dat Lopez DATE: September 11, 2022 TIME: 7:57 AM CSN: [id number] [id number] NoteHNO ID: [id number] Author: ANASTASIIA Rodriguez Service: Radiology Author Type: [...] BY: ANASTASIIA RODRIGUEZ August 28, 2022 7:11 [facility]ighXbsthfjd31-69-6189 History and physical note* Mechelle Burnett PA-C [...] fevers. Neuro: No history of TIA's, stroke, QUEBRACHO TANNER tumor, impaired sensorium, hemiplegia, paraplegia or quadraplegia. No neurological symptoms or problems. Respiratory: No history of current cough or dyspnea, or pneumonia in the past 6 weeks. No history of respiratory/pulmonary symptoms or problems. Cardiovascular: +HTN, HLD, POTS- no recent episodes Negative for Recent VT, Angina, Chest Pain, CHF, DVT/PE GI: No [...] 2022 TIME: 9:57 AM documented in this encounterC[facility]10-10-2022 History of Present illness Narrative* ANASTASIIA Rodriguez [...] 28, 2022 7:11 AM documented in this encounterCleveland Clinic [facility]10-07-2022 Miscellaneous Notes* Telephone Encounter - Eddie Freed Pss - 08/25/2022 4:35 PM EDT Patient scheduled for [facility] 09[facility] for PERCUTANEOUS NEPHROLITHOTOMY [[id number]] - Kidney - [...] understanding. * Telephone Encounter - Eddie Freed Pss - 08/24/2022 3:52 PM EDT Called patient to review preop appts and instructions. Unable to leave message, no vm available. documented in this encounterCleveland Clinic [facility]10-06-2022 Instructions* Patient Instructions* Mechelle Burnett PA-C - 08/24/2022 12:52 PM EDT PATIENT PREOPERATIVE INSTRUCTIONS Noelle Vega MD has scheduled you for your procedure at this surgery center: [facility]: [phone] --[phone] [place] [address]. Please enter through the entrance closest to [...] Procedures: - YOU MUST HAVE A RESPONSIBLE CENTRIFUGAL STATION OPERATOR TAKE YOU HOME. A PAPER SPOOLER OR COUNSELOR MANAGER CANNOT BE MADE A RESPONSIBLE CENTRIFUGAL STATION OPERATOR. - We recommend that a responsible person stays with you overnight to take care of you. - You cannot stay in a hotel alone after outpatient surgery. You will not be permitted to have yoursurgery, if you do not have someone to take care of you. If you already have an Advance Directive, please fax a copy to [phone] or email to for it to be [...] day. Mechelle Burnett PA-C documented in this encounterCleveland Clinic [facility]09-28-2022 Miscellaneous Notes* Telephone Encounter - Bienvenido Del Cid Ma - 08/16/2022 5:19 PM EDT Images from cd have been uploaded into patient's chart. I spoke with patient and he does not need the cd back. I am putting it in the admin office to be destroyed. documented in this encounterCleveland Clinic [facility]09-23-2022 NoteHNO ID: [id number] Author: Noelle Vega MD Service: ? Author Type: Physician Type: Progress Notes Filed: 08/11/2022 11:28 AM Note Text: [facility] NEW PATIENT HISTORY AND PHYSICAL EXAM PATIENT INFO: Dat Lopez 62 year old REFERRING M.D.: Pelon Coles [address] [place] [address] PCP: No primary care provider on file. [...] Left NL, multiple stones. ESWL was performed. [facility]. Then URS x 2 and ureteral stent [...] history of headaches, syncope (more content not included)...[facility]09-23-[facility] Instructions* Patient Instructions* Noelle Vega [...] video with more information on ureteral stents: [email or web address] Video on PCNL: [email or web address] If you have any additional questions regarding this procedure, please reach out to our team. Warm regards, Your [facility] Kidney Stone Team documented in this encounterCleveland Clinic [facility]09-23-2022 History of Present illness Narrative* Noelle Vega MD - 08/11/2022 11:00 AM EDT Images from the original note were not included. [facility] NEW PATIENT HISTORY AND PHYSICAL EXAM PATIENT INFO: Dat Lopez 62 year old REFERRING M.D.: Pelon Coles [address] [place] [address] PCP: No primary care provider on file. [...] Left NL, multiple stones. ESWL was performed. [facility]. Then URS x 2 and ureteral stent [...] Abdomen is Non-distended, soft, nontender. Musculoskeletal: Good chain splitter strength. Neurologic: Normal gait. Sensation grossly intact. [...] with URS. Plan for Sep 11 at [facility] The patient decided to proceed with the [...] Vega MD Associate Staff documented in this encounterCleveland Clinic [facility]09-07-2022 NotePROCEDURE: XR HIP LT 2 3V W [...] Electronically authenticated by: GEMA OTTO Date: 2022-07-26 21:53[facility]04-26-2022 Hospital Discharge instructions Patient Education [...] COLES Address: [facility] [address] [facility] [place] [address]- Business (1) When: Unknown Comments:Office will call to schedule follow up [facility]04-25-2022 Hospital Discharge instructions Patient Education 03/13/2022 16:08:43 [...] Follow these instructions at home: Medicines Take bswl-win-toirjwa and prescription medicines only as told by [...] or the blood stops without treatment. Take dbge-czo-wxgeote and prescription medicines only as told by your health care provider. Drink enough fluid to keep your urine clear or pale yellow. This information is not intended to replace advice given to you by your health care provider. Make sure you discuss any questions you have with your health care provider. Document Released: 11/05/2006 Document Revised: 03/31/2020 Document Reviewed: 12/08/2017 [employer] Patient Education 2020 QponDirect. Follow Up Care 03/13/2022 08:09:52 With:Pelon COLES MD, URL Address: [facility] [address], [place] [address]- [phone] When: Unknown [facility] evaluation + Plan note Future Appointments Appointment Date:03/14/2022 10:00:00 AM Scheduled Provider: Location:[facility] Appointment Type:Urology FT Appointment Date:05/05/2022 09:30:00 AM Scheduled Provider:Pelon COLES MD Location:[facility] Appointment Type:URO Office Visit [facility] evaluation + Plan note Future Appointments Appointment Date:05/05/2022 09:30:00 AM Scheduled Provider:Pelon COLES MD Location:[facility] Appointment Type:URO Office Visit Diagnostic Tests Pending * UroVysion Fish and Urine Cyto ([facility]) [facility] App[facility]ments Appointment Date:12/18/2022 02:30:00 PM Scheduled Provider:Pelon COLES MD Location:[facility] Appointment Type:URO Office Visit General Surgery [place] Evaluation + Plan note Future Appointments Appointment Date:06/18/2023 09:45:00 AM Scheduled Provider:Pelon COLES MD Location:[facility] Appointment Type:URO Office Visit [facility] evaluation + Plan note Future Appointments Appointment Date:11/27/2023 03:30:00 PM Scheduled Provider:Pelon COLES MD Location:[facility] Appointment Type:URO Procedure 30 min Appointment Date:12/14/2023 10:30:00 AM Scheduled Provider:Pelon COLES MD Location:[facility] Appointment Type:URO Office Visit General Surgery [place] Evaluation + Plan note Future Appointments Appointment Date:12/14/2023 10:30:00 AM Scheduled Provider:Pelon COLES MD Location:[facility] Appointment Type:URO Office Visit [facility] Evaluation + Plan note Future Appointments Appointment Date:12/14/2023 10:30:00 AM Scheduled Provider:Pelon COLES MD Location:[facility] Appointment Type:URO Office Visit Diagnostic Tests Pending * Prostate Histology ([facility]) [facility] App[facility]ments Appointment Date:12/19/2024 10:30:00 AM Scheduled Provider:Pelon COLES MD Location:[facility] Appointment Type:URO Office Visit Diagnostic Tests Pending * PSA Total 12/17/23 [facility] evaluation + Plan note Future Appointments Appointment Date:12/19/2024 10:30:00 AM Scheduled Provider:[facility] Office Visit Diagnostic Tests Pending * Urine Culture [facility] Future Appointments Appointment Date:12/19/2024 10:30:00 AM Scheduled Provider:Pelon COLES MD Location:[facility] Appointment Type:URO Office Visit Diagnostic Tests Pending * Creatinine 05/05/24 [facility] evaluation + Plan note Future Appointments Appointment Date:06/23/2024 09:00:00 AM Scheduled Provider: Location:[facility] Appointment Type:URO Nurse Visit Appointment Date:07/07/2024 12:30:00 PM Scheduled Provider:Pelon COLES MD [facility] Type:URO Office Visit Appointment Date:12/19/2024 10:30:00 AM Scheduled Provider:Pelon COLES MD Location:[facility] Appointment Type:URO Office Visit [facility] evaluation note* Diagnosis Screening for genitourinary condition- Primary Screening for other and unspecified genitourinary condition Calculus of kidney with calculus of ureter Calculus of kidney Staghorn calculus Calculus of kidney documented in this encounter [facility]* Diagnosis Nephrolithiasis- Primary Calculus of kidney Secondary hyperparathyroidism of renal origin (HCC) Secondary hyperparathyroidism (of renal origin) Gross hematuria Gross hematuria Nephrolithiasis Calculus of kidney documented in this encounter [facility]* Diagnosis Pre-op evaluation- Primary Preoperative examination, [...] Calculus of kidney documented in this encounter [facility]* Diagnosis Calculus of kidney with calculus of ureter Calculus of kidney Nephrolithiasis Calculus of kidney documented in this encounter [facility]* Diagnosis Hyperkalemia- Primary Hyperpotassemia documented in this encounter [facility]* Diagnosis Nephrolithiasis- Primary Calculus of kidney Calculus of kidney with calculus of ureter Calculus of kidney documented in this encounter [facility] noteNo InformationNort [employer] Other Evaluation noteNoCrowdWorks Other Evaluation noteNo assessment information available [facility] Work Phone: Evaluation note* Diagnosis Onset Date Resolution Status [id number] acute Primary hypertension acute [id number] acute [facility] Work Phone: Evaluation note* Diagnosis Onset [...] acute Lumbar spondylosis acute Primary hypertension acute [facility] Work Phone: [facility] general Narrative - Reported* Type Description Date [...] prostate Surgical History COLONOSCOPY Hospitalization History see [facility] Other [facility] general Narrative - Reported* Type Description Date [...] prostate Surgical History COLONOSCOPY Hospitalization History see [facility] Other [facility] [employer] [place] Other Hospital course Narrative No data available for this section [facility] [employer] [facility] Discharge instructions No data available for this section [facility] progress note No data available for this section [facility] reason for referral (narrative)* Reason * 02/13 Referral for low back pain Diagnosis 1 Lumbar spondylosis ( M47.816) Referral Organization [facility] alfred Referring Provider First Name Sp Referring Provider Last Name Epi Referring Provider Specialty Internal Me dicine Referred Organization [facility] Referred Provider Vandana Blount Referred Address [address] [place] [id number] Referred Provider Specialty Pain Medicin e Referral Priority Routine General Notes Patient requesting r bradfordmatt for pain management. He had seen pain management for years but his provider moved. He would like to become established with local pain clinic Smita Prasad 02/06/2023 01:53:36 PM >received today Smita Prasad 02/06/2023 01:55:11 PM >attachments made, notes locked, referral faxed Clinical Notes This patient has chr onic low back pain. He has received benefit from previous injections. P: [phone] F: [phone] [facility] [employer] [place] Other Summary Purpose Family History No Family [...] Referred By Elena apple Referred To Contact Cardiology Diagnoses Nephrolithiasis Procedures CONSULT TO CARDIOLOGY OFFICE/OUTPATIENT [facility] 60-[place] [address] [place] [address] Referral ID Status Reason Start Date Expiration Date Visits Requested Visits Authorized [id number] Pending Review PCP Requested Referral 08/11/2022 08/11/2023 1 1 Specialty Diagnoses / Procedures Referred By Elena t Referred To Contact Diagnoses Nephrolithiasis Procedures REFER TO PACC - PRE ANESTHESIA CONSULTATION CLINIC OFFICE/OUTPATIENT [facility] HIGH MDM 60-[place] [address] [place] [address] Referral ID Status Reason Start Date Expiration Date Visits Requested Visits Authorized [id number] Pending Review PCP Requested Referral 08/11/2022 08/11/2023 1 1 Specialty Diagnoses / Procedures Referred By Elena apple Referred To Contact CT IMAGING Diagnoses Calculus of kidney with calculus of ureter Procedures CT FLANK WO IVCON CT ABD & PEL[place] [address] [place] [address] Ct Imaging Referral ID Status Reason Start Date Expiration Date Visits Requested Visits Authorized [id number] Authorized Auto-Generat ed Referral 08/11/2022 09/10/2023 1 [...] Check Up worsening neuropathy Reason for Visit [id number] Primary hypertension [id number] Chief Complaint worsening neuropathy Wellness Amb Documentation [...] CREATED AUTHOR AUTHOR'S ORGANIZ ATION 01/03/2022 [facility] DATE CREATED AUTHOR AUTHOR'S ORGANIZ ATION 08/21/2022 [facility] DATE CREATED AUTHOR AUTHOR'S ORGANIZ ATION 09/16/2022 [facility] DATE CREATED AUTHOR AUTHOR'S ORGANIZ ATION 09/27/2022 [facility] DATE CREATED AUTHOR AUTHOR'S ORGANIZ ATION 04/04/2023 [facility] DATE CREATED AUTHOR AUTHOR'S ORGANIZ ATION 09/19/2023 [facility] DATE CREATED AUTHOR AUTHOR'S ORGANIZ ATION 05/08/2024 [facility] DATE CREATED AUTHOR AUTHOR'S ORGANIZ ATION 05/21/2024 [facility] Care Team (unrecognized sect ion and content) Anatomical Embalmer Relationship Specialty Start Date End Date Sp Chowdary DO [address] [id number] PCP - General Internal Medicine 09/07/22 Anatomical Embalmer Relationship Specialty Start Date End Date Sp Chowdary DO [address] [place] [address] PCP - General Internal Medicine 09/07/22 Team [...] or prosecute any alcohol or drug abuse patient.[facility] RehabilitationIn the event this information is protected by the Federal Confidentiality of Alcohol and Drug Abuse Patient Records regulations: The Federal rules restrict any use of the information to criminally investigate or prosecute any alcohol or drug abuse patient.[facility] RehabilitationIn the event this information is protected by the Federal Confidentiality of Alcohol and Drug Abuse Patient Records regulations: The Federal rules restrict any use of the information to criminally investigate or prosecute any alcohol or drug abuse patient.[facility] RehabilitationIn the event this information is protected by the Federal Confidentiality of Alcohol and Drug Abuse Patient Records regulations: The Federal rules restrict any use of the information to criminally investigate or prosecute any alcohol or drug abuse patient.[facility] RehabilitationIn the event this information is protected by the Federal Confidentiality of Alcohol and Drug Abuse Patient Records regulations: The Federal rules restrict any use of the information to criminally investigate or prosecute any alcohol or drug abuse patient.[facility] RehabilitationIn the event this information is protected by the Federal Confidentiality of Alcohol and Drug Abuse Patient Records regulations: The Federal rules restrict any use of the information to criminally investigate or prosecute any alcohol or drug abuse patient.[facility] RehabilitationIn the event this information is protected by the Federal Confidentiality of Alcohol and Drug Abuse Patient Records regulations: The Federal rules restrict any use of the information to criminally investigate or prosecute any alcohol or drug abuse patient.[facility] RehabilitationIn the event this information is protected by the Federal Confidentiality of Alcohol and Drug Abuse Patient Records regulations: The Federal rules restrict any use of the information to criminally investigate or prosecute any alcohol or drug abuse patient.[facility] Reason for Visit (unrecogniz ed section and content) Reason Comments New Patient Kidney stones Reason Comments Other CD from [facility] XR KUB Reason Comments Schedule Surgery Specialty Diagnoses / Procedures Referred By Elena apple Referred To Contact Diagnoses Nephrolithiasis Procedures REFER TO PACC - PRE ANESTHESIA CONSULTATION CLINIC OFFICE/OUTPATIENT NEW HIGH MDM 60-[place] [address] [place] [address] Referral ID Status Reason Start Date Expiration Date Visits Requested Visits Authorized [id number] Pending Review PCP Requested Referral 08/11/2022 08/11/2023 1 1 Specialty Diagnoses / Procedures Referred By Elena t Referred To Contact CT IMAGING Diagnoses Calculus of kidney with calculus of ureter Procedures CT FLANK WO IVCON CT ABD & PELVIS W/[place] [address] [place] [address] Ct Imaging Referral ID Status Reason Start Date Expiration Date V isits Requested Visits Authorized [id number] Closed Auto-Generate d Referral 08/11/2022 09/10/2023 1 [...] BE BASED ON THE PRIMARY CLINICAL RECORDS. [facility] [employer] [facility]. provides no warranty or guarantee of the accuracy or completeness of information in this document.
--- NOTE | 2024-05-23 15:36 | ED.GENADUL1 ---
HPI HPI - General Adult General Chief complaint: Urogenital-Male Stated complaint: HEMATURIA Time Seen by Provider: 05/23/24 15:17 Source: patient Mode of arrival: walk-in Limitations: no limitations History of Present Illness HPI narrative: Patient is a 64-year-old male who presents to the emergency department for the evaluation of hematuria that began today. He had cystoscopy with Caputo catheter placement for gross hematuria on 05/06/2024. Caputo catheter was removed 2 days ago. He states he has been urinating well until today when he had a return of hematuria. He has no abdominal pain, flank pain, fevers or chills. He states he was told on the cystoscopy that he had an infection in his prostate. He took 2 weeks of antibiotics. He denies any burning with urination. No medications taken prior to arrival. He is not anticoagulated. He tried to call Dr. Fish office and they were not in today due to the holiday weekend, his PCP Dr. Washington referred him to the ER. He does feel as though he is able to pass urine without difficulty, he has not seen any blood clots in his urine. Related Data Home Medications ?Medication ?Instructions ?Recorded ?Confirmed amlodipine 5 mg tablet 5 mg PO BID 04/27/23 05/06/24 coQ10 (liposomal ubiquinol) 100 100 mg PO QDAY 04/27/23 05/06/24 mg/mL oral liquid gabapentin 100 mg capsule 100 mg PO Q12H 04/27/23 05/06/24 losartan 100 mg tablet 50 mg PO BID 04/27/23 05/06/24 melatonin 10 mg tablet 15 mg PO DAILY 04/27/23 05/06/24 metformin 1,000 mg tablet 1,000 mg PO BID 04/27/23 05/06/24 multivitamin 1 tab PO DAILY 04/27/23 05/06/24 pyridostigmine bromide 60 mg tablet 60 mg PO BID 04/27/23 05/05/24 sertraline 100 mg tablet 100 mg PO BID 04/27/23 05/06/24 tadalafil 10 mg tablet 20 mg PO DAILY PRN sexual activity 04/27/23 05/05/24 metoprolol succinate 50 mg 50 mg PO DAILY 10/19/23 05/06/24 tablet,extended release 24 hr potassium bicarbonate-citric acid 25 meq PO TID 10/19/23 05/06/24 25 mEq effervescent tablet (Effer-K) pravastatin 40 mg tablet 40 mg PO DAILY 10/19/23 05/06/24 insulin aspart 1 sliding scale dose subcut 05/05/24 05/05/24 (niacinamide)(U-100) 100 unit/mL(3 USEASDIRECTD mL) subcutaneous pen (Fiasp FlexTouch U-100 Insulin) tirzepatide 2.5 mg/0.5 mL 2.5 mg subcut QWEEK 05/05/24 05/06/24 subcutaneous pen injector (Mounjaro) Allergies Allergy/AdvReac Type Severity Reaction Status Date / Time morphine Allergy Unknown ITCHING Verified 04/27/23 08:29 pioglitazone [From Actos] Allergy Unknown Rash Verified 04/27/23 08:29 exenatide [From Byetta] AdvReac Intermediate Vomiting Verified 04/27/23 08:29 diazepam [From Valium] AdvReac Vomiting Verified 04/27/23 08:29 Opioid HPI Opioid Management Most Recent Opioid Data: No Data to Display Review of Systems ROS Constitutional Denies: fever or chills Ears, nose, mouth, and throat Denies: throat pain or nasal congestion Cardiovascular Denies: chest pain Respiratory Denies: shortness of breath or cough Gastrointestinal Denies: abdominal pain, nausea or vomiting Genitourinary Reports: blood in urine Integumentary/Breast Denies: rash Neurological Denies: headache Hematologic/Lymphatic Denies: easy bruising or easy bleeding PFSH PFS Medical History (Updated 05/23/24 @ 18:07 by SUSAN Avila) Bone tumor ?D49.2 - Neoplasm of unspecified behavior of bone, soft tissue, and skin (ICD-10) Colonoscopy planned Urine retention ?R33.9 - Retention of urine, unspecified (ICD-10) Prostate nodule ?N40.2 - Nodular prostate without lower urinary tract symptoms (ICD-10) Polyneuropathy ?G62.9 - Polyneuropathy, unspecified (ICD-10) Hyperparathyroidism ?E21.3 - Hyperparathyroidism, unspecified (ICD-10) Kidney stones ?N20.0 - Calculus of kidney (ICD-10) Colon polyps ?K63.5 - Polyp of colon (ICD-10) Gross hematuria ?R31.0 - Gross hematuria (ICD-10) Erectile dysfunction ?N52.9 - Male erectile dysfunction, unspecified (ICD-10) Elevated PSA ?R97.20 - Elevated prostate specific antigen [PSA] (ICD-10) Chronic kidney disease ?N18.9 - Chronic kidney disease, unspecified (ICD-10) BPH with obstruction/lower urinary tract symptoms ?N40.1 - Benign prostatic hyperplasia with lower urinary tract symptoms (ICD-10) ?N13.8 - Other obstructive and reflux uropathy (ICD-10) Adult BMI 33.0-33.9 kg/sq m ?Z68.33 - Body mass index [BMI] 33.0-33.9, adult (ICD-10) Arthritis ?M19.90 - Unspecified osteoarthritis, unspecified site (ICD-10) Anemia ?D64.9 - Anemia, unspecified (ICD-10) Abdominal bloating ?R14.0 - Abdominal distension (gaseous) (ICD-10) Bladder cancer ?C67.9 - Malignant neoplasm of bladder, unspecified (ICD-10) Hx of nephrolithotomy with removal of calculi ?Z98.890 - Other specified postprocedural states (ICD-10) ?Z87.442 - Personal history of urinary calculi (ICD-10) Low back pain ?M54.50 - Low back pain, unspecified (ICD-10) Osteoarthritis ?M19.90 - Unspecified osteoarthritis, unspecified site (ICD-10) Numbness and tingling ?R20.0 - Anesthesia of skin (ICD-10) ?R20.2 - Paresthesia of skin (ICD-10) Depression ?F32.A - Depression, unspecified (ICD-10) Hearing deficit ?H91.90 - Unspecified hearing loss, unspecified ear (ICD-10) Anxiety ?F41.9 - Anxiety disorder, unspecified (ICD-10) Obesity ?E66.9 - Obesity, unspecified (ICD-10) Diabetes ?E11.9 - Type 2 diabetes mellitus without complications (ICD-10) H/O renal calculi ?Z87.442 - Personal history of urinary calculi (ICD-10) Enlarged prostate ?N40.0 - Benign prostatic hyperplasia without lower urinary tract symptoms (ICD-10) Sleep apnea ?G47.30 - Sleep apnea, unspecified (ICD-10) 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) Hypertension ?I10 - Essential (primary) hypertension (ICD-10) High cholesterol ?E78.00 - Pure hypercholesterolemia, unspecified (ICD-10) Surgical History (Updated 10/19/23 @ 15:17 by Heather Solis) H/O lithotripsy ?Z98.890 - Other specified postprocedural states (ICD-10) History of cystoscopy ?Z98.890 - Other specified postprocedural states (ICD-10) H/O rectal polypectomy ?Z98.890 - Other specified postprocedural states (ICD-10) ?Z87.19 - Personal history of other diseases of the digestive system (ICD-10) H/O transurethral resection of bladder tumor (TURBT) ?Z98.890 - Other specified postprocedural states (ICD-10) ?Z86.03 - Personal history of neoplasm of uncertain behavior (ICD-10) H/O ankle fusion ?Z98.1 - Arthrodesis status (ICD-10) History of cryosurgery ?Z98.890 - Other specified postprocedural states (ICD-10) Family History (Updated 10/19/23 @ 15:30 by Heather Solis) Father Arthritis Family history of stroke Mother Family history of hypertension Social History Within the past year, how often did you have a drink containing alcohol: never Score interpretation: A score less than 4 is consistent with normal alcohol consumption. Smoking status: Never smoker Second hand tobacco smoke exposure: No Non-prescribed substance use: denies use Previous occupational history: Disability Known occupational exposures/hazards: No Highest level of school completed/degree received: some college, no degree Exam Narrative Exam Narrative: Gen.: Awake, alert, in no distress Head: Normocephalic, atraumatic ENT: Moist mucous membranes Respiratory: No respiratory distress Gastrointestinal: Abdomen is soft, nondistended and nontender to palpation Extremities: Moves extremities equally Psych: Normal mood and affect Neuro: No focal neuro deficit Skin: Warm, dry, intact Constitutional Vital Signs, click to edit/add: Last Vital Signs Temp 98.2 F 05/23/24 15:16 Pulse 77 05/23/24 15:16 Resp 18 05/23/24 15:16 BP 184/98 H 05/23/24 15:16 Pulse Ox 100 05/23/24 15:16 O2 Del Method Room Air 05/23/24 15:16 Course Vital Signs Vital signs: Vital Signs Temperature 98.2 F 05/23/24 15:16 Pulse Rate 77 05/23/24 15:16 Respiratory Rate 18 05/23/24 15:16 Blood Pressure 184/98 H 05/23/24 15:16 Pulse Oximetry 100 05/23/24 15:16 Oxygen Delivery Method Room Air 05/23/24 15:16 Temperature 98.2 F 05/23/24 15:16 Pulse Rate 77 05/23/24 15:16 Respiratory Rate 18 05/23/24 15:16 Blood Pressure 184/98 H 05/23/24 15:16 Pulse Oximetry 100 05/23/24 15:16 Oxygen Delivery Method Room Air 05/23/24 15:16 Medical Decision Making MDM Narrative Medical decision making narrative: Urine specimen was obtained without difficulty, patient with 84 mL in the bladder on bladder scan. CT scan was performed on 05/12/24. Urine specimen shows the patient has hematuria with no urinary tract infection. The remainder of the labs are unremarkable, bladder scan shows no significant postvoid residual. I discussed the case with Dr. Ann for urology. She recommended three-way Caputo catheter placement for bladder irrigation, if the patient's urine clears, he can be discharged home. If he continues to have hematuria, he should be admitted for CBI. Patient is agreeable to treatment plan. Three-way Caputo catheter was placed by nursing staff. Patient was irrigated with 3000 mL, urine is now clear and he is appropriate for discharge home. He should follow-up closely with urology. Return to the emergency department if symptoms change or worsen. SUPERVISED APC VISIT, PHYSICIAN ATTESTATION: Based on the medical record the care appears appropriate. ? Medical Records Medical records reviewed: Yes I reviewed the patient's medical records Lab Data Lab results reviewed: Yes I reviewed the patient's lab results Labs: Lab Results 05/23/24 05/23/24 Range/Units 15:25 15:46 WBC 7.0 (4.0-11.0) 10^3/uL RBC 4.68 L (4.70-6.10) 10^6/uL Hgb 12.6 L (14.0-18.0) g/dL Hct 38.2 L (42.0-54.0) % MCV 81.6 (80.0-94.0) fL MCH 26.9 (25.9-34.0) pg MCHC 33.0 (29.9-35.2) g/dL RDW 13.7 (11.0-15.0) % Plt Count 198 (150-450) 10^3/uL MPV 9.5 (9.5-13.5) fL Neut % (Auto) 61.0 (43.0-75.0) % Lymph % (Auto) 26.7 (20.5-60.0) % [place] % (Auto) 5.7 (1.7-12.0) % Eos % (Auto) 5.9 (0.9-7.0) % Baso % (Auto) 0.4 (0.2-2.0) % Neut # (Auto) 4.3 (1.4-6.5) 10^3/uL Lymph # (Auto) 1.9 (1.2-3.8) 10^3/uL [place] # (Auto) 0.4 (0.3-0.8) 10^3/uL Eos # (Auto) 0.4 (0.0-0.7) 10^3/uL Baso # (Auto) 0.0 (0.0-0.1) 10^3/uL Abs Immat Gran (auto) 0.02 (0.00-0.03) 10^3/uL Imm/Tot Granulo (auto) 0.3 (0.0-0.5) % PT 10.8 (9.0-11.6) sec INR 1.02 Sodium 137 (136-145) mmol/L Potassium 4.3 (3.5-5.1) mmol/L Chloride 101 (98-107) mmol/L Carbon Dioxide 24.0 (21.0-32.0) mmol/L Anion Gap 16.3 BUN 26.0 H (7.0-18.0) mg/dL Creatinine 1.49 H (0.70-1.30) mg/dL Est GFR ( Amer) 58 L (>=60) Est GFR (Non-Af Amer) 48 L (>=60) BUN/Creatinine Ratio 17.4 Glucose 243 H (74-106) mg/dL Calcium 8.5 (8.5-10.1) mg/dL Urine Color Dk. red (YELLOW) Urine Clarity Turbid A (CLEAR) Urine pH Color interference A (5.0-9.0) Ur Specific [place] >=1.030 A (1.005-1.025) Urine Protein Color interference A (NEG/TRACE) mg/dL Urine Glucose (UA) Color interference A (NEGATIVE) mg/dL Urine Ketones Color interference A (NEGATIVE) mg/dL Urine Occult Blood Color interference A (NEGATIVE) Urine Nitrite Color interference A (NEGATIVE) Urine Bilirubin Color interference A (NEGATIVE) Urine Urobilinogen Color interference A (0.2-1.0) EU/dL Ur Leukocyte Esterase Color interference A (NEGATIVE) Urine RBC >100 A (0-2) #/HPF Urine WBC 0-2 A (NONE SEEN) #/HPF Ur Squamous Epith Cells None seen (NONE/RARE) #/LPF Urine Crystals None seen (None Seen) #/HPF Urine Bacteria None seen (NONE SEEN) #/HPF Urine Casts None seen (NONE SEEN) #/LPF Urine Mucus None seen (NONE SEEN) Ur Culture Indicated? No Discharge Plan Discharge Stand Alone Forms: Portal Instructions Chief Complaint: Urogenital-Male Clinical Impression: Hematuria Patient Disposition: Home, Self-Care Time of Disposition Decision: 18:06 Condition: Good Prescriptions / Home Meds: No Action gabapentin 100 mg capsule 100 mg PO Q12H losartan 100 mg tablet 50 mg PO BID melatonin 10 mg tablet 15 mg PO DAILY multivitamin Tablet 1 tab PO DAILY pyridostigmine bromide 60 mg tablet 60 mg PO BID coQ10 (liposomal ubiquinol) 100 mg/mL liquid 100 mg PO QDAY amlodipine 5 mg tablet 5 mg PO BID metformin 1,000 mg tablet 1,000 mg PO BID sertraline 100 mg tablet 100 mg PO BID tadalafil 10 mg tablet 20 mg PO DAILY PRN (Reason: sexual activity) Rx Instructions: administer approximately 30min before sexual activity; do not use more than 1 dose per 24hrs Effer-K 25 mEq tablet, effervescent 25 meq PO TID metoprolol succinate 50 mg tablet extended release 24 hr 50 mg PO DAILY pravastatin 40 mg tablet 40 mg PO DAILY Mounjaro 2.5 mg/0.5 mL pen injector 2.5 mg subcut QWEEK Fiasp FlexTouch U-100 Insulin 100 unit/mL (3 mL) insulin pen 1 sliding scale dose subcut USEASDIRECTD Print Language: Romanian Instructions: Hematuria (ED) Additional Instructions: Contact urology office on Sunday for follow up Referrals: Sp Washington DO [Primary Care Provider] - 1 week
[2024-05-23 15:53] LABS: Basophils Percent Auto 0.4 % (0.2-2.0); Eosinophils Absolute Auto 0.4 10^3/uL (0.0-0.7); Eosinophils Percent Auto 5.9 % (0.9-7.0); Hematocrit 38.2 % (42.0-54.0); Hemoglobin 12.6 g/dL (14.0-18.0); Immature Granulocytes Abs Auto 0.02 10^3/uL (0.00-0.03); Immature Granulocytes Pct Auto 0.3 % (0.0-0.5); Lymphocytes Absolute Auto 1.9 10^3/uL (1.2-3.8); Lymphocytes Percent Auto 26.7 % (20.5-60.0); Mean Corpuscular Hemoglobin 26.9 pg (25.9-34.0); Mean Corpuscular Volume 81.6 fL (80.0-94.0); Mean Platelet Volume 9.5 fL (9.5-13.5); Monocytes Absolute Auto 0.4 10^3/uL (0.3-0.8); Monocytes Percent Auto 5.7 % (1.7-12.0); Neutrophils Absolute Auto 4.3 10^3/uL (1.4-6.5); Platelet Count 198 10^3/uL (150-450); Red Blood Count 4.68 10^6/uL (4.70-6.10); Red Cell Distribution Width 13.7 % (11.0-15.0)
[2024-05-23 16:07] LABS: INR 1.02; Prothrombin Time 10.8 sec (9.0-11.6)
[2024-05-23 16:16] LABS: Anion Gap 16.3; BUN Creatinine Ratio 17.4; Calcium 8.5 mg/dL (8.5-10.1); Chloride 101 mmol/L (98-107); Estimated GFR (African America 58 (>=60); Estimated GFR (Non-African Ame 48 (>=60); Glucose 243 mg/dL (74-106); Potassium 4.3 mmol/L (3.5-5.1); Sodium 137 mmol/L (136-145)
[2024-05-23 16:26] LABS: Color Urine DK. RED (YELLOW); Specific Gravity Urine >=1.030 (1.005-1.025)
[2024-05-23 16:31] LABS: Bilirubin Urine COLOR INTERFERENCE (NEGATIVE); Blood Urine COLOR INTERFERENCE (NEGATIVE); Glucose Urine UA COLOR INTERFERENCE mg/dL (NEGATIVE); Ketones Urine COLOR INTERFERENCE mg/dL (NEGATIVE); Leukocyte Esterase Urine COLOR INTERFERENCE (NEGATIVE); Nitrite Urine COLOR INTERFERENCE (NEGATIVE); Protein Urine COLOR INTERFERENCE mg/dL (NEG/TRACE); Urine Microscopic Indicated YES; Urobilinogen Urine COLOR INTERFERENCE EU/dL (0.2-1.0); pH Urine COLOR INTERFERENCE (5.0-9.0)
[2024-05-23 16:32] LABS: Clarity Urine TURBID (CLEAR)
[2024-05-23 16:33] LABS: Bacteria Urine NONE SEEN #/HPF (NONE SEEN); RBC Urine >100 #/HPF (0-2); WBC Urine 0-2 #/HPF (NONE SEEN)
[2024-05-23 16:35] LABS: Cast Seen? NONE SEEN #/LPF (NONE SEEN); Crystals Seen? None Seen #/HPF (None Seen); Mucus Urine NONE SEEN (NONE SEEN); Squamous Epithelial Cell Urine NONE SEEN #/LPF (NONE/RARE); Urine Culture Indicated NO
[2024-05-23] MEDS: SODIUM CHLORIDE 0.9% IRRIG SOLUTION 1,000 ML BOTTLE 3000 ML IRR (17:15)
[2024-05-23 18:41] VITALS: BP 140/80; PULSE 72; O2SAT 98
== END 2024-05-23 18:43 | disposition home or self-care (01) ==
PROVIDERS: Physician Assistant; Emergency Provider Emergency Medicine Emergency Medical Services; PCP Internal Medicine
DX: F31.9 Bipolar disorder, unspecified (principal)
CPT/HCPCS: 36415; 51702; 51798; 80048; 81001; 85025; 85610; 99284

== ENCOUNTER 2024-06-10 12:13 | Outpatient (OUT) | payer OTHER, MEDICARE, SELFPAY ==
--- NOTE | 2024-06-10 12:22 | ECG_ITS ---
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
--- OUTSIDE RECORDS SUMMARY | 2024-06-10 12:23 | XMS_ITS | CCD ---
Author Organization [facility] Care Team Providers Care Order Taker Name Role Phone PROVIDER, UNKNOWN Attending Unavailable PROVIDER, UNKNOWN Admitting Unavailable CARTER GODFREY Referring Unavailable SP CHOWDARY Primary Care Physician [phone] Unavailable Primary Care Provider Unavailrigoberto e Unavailable Primary Care Provider NOELLE Mejia Attending Unavailable PELON COLES Referring Unavailable Sp Chowdary DO Primary Care Provider NOELLE VEGA Attending Unavailable SILIVA, NOELLE Admitting Unavailable ZAMPINI, NOELLE Referring Unavailable ZAKRISSYINI, NOELLE Referring Unavailable ZAKRISSYINI, NOELLE Referring Unavailable NOELLE VEGA Attending Unavailable SP CHOWDARY Primary Care Unavailable Unavailable Primary Care Provider UnavailAlfonzo Read II Unavailable Sp Chowdary Unavailable LUPEMIPATHY ., LIANA Attending Britni vailable ELLIE ., LIANA Admitting Britni vailable EPI, DR ESTEVEZ Primary Care Unavailable eGma Otto Consulting Unavailable LUPEMIPATHNico ., LIANA Consulting [...] Unavailable BALL, DR ESTEVEZ Primary Care Unavailable GARCIATAY HONEYCUTT Consulting Unavailable MCCORNACKGEMA Consulting Unavailable COLES ., DR BIRD Consulting Unavailable MISC, DR WILLIAMSON Admitting Unavailable RUELAS, DR RADHA Salmon Primary Care Unavailable MISC, DR WILLIAMSON Attending Unavailable MISC, DR WILLIAMSON Consulting Unavailable Gema Otto Consulting Unavailable BALL, DR ESTEVEZ Primary Care [...] HALKER ., RADHA Admitting Unavailable LAKSHMIPATHY ., CLARARANATH Attending Britni vailable LAKSHMIPATHY ., CLARARANANNIE Consulting Britni vailable LAKSHMIPATHY ., NARSANDRAATH Admitting Britni vailable BALL, DR ESTEVEZ Primary [...] RUELAS, DR RADHA Salmon Primary Care Unavailable Ziebcelena, Gema Consulting Unavailable RUELAS, DR RADHA Salmon Consulting [...] Attending Provider Sp Chowdary Primary Care Unavailable Dejon WARNER, Alfonzo Adrian Attending Unavailabl e Dejon II, Alfonzo Adrian Admitting Unavailabl e BallSp Primary Care Unavailable Dejon II, Alfonzo Adrian Attending Unavailabl e Dejon II, Alfonzo Adrian Admitting Unavailabl e Coles, Pelon Attending Unavailable Coles, Pelon Admitting Unavailable BallSp Primary Care Unavailable NILL, Duran Mujica Attending Unavailable COLES, [...] Pelon R Admitting Unavailable COLES, Pelon R Referring Unavailable COLES, Pelon Mujica Attending Unavailable COLES, Pelon R Attending Unavailable COLES, Pelon R Admitting Unavailable COLES, Pelon Mujica Admitting Unavailable COLES, Pelon Mujica Attending Unavailable NILL, Duran Mujica Attending Unavailable COLES, Pelon Mujica Attending Unavailable COLES, Pelon R Attending Unavailable COLES, Pelon R Attending Unavailable COLES, Pelon R Attending Unavailable Allergies Allergy Classification Reported Allergen(s) Allergy Type Date of Onset Reaction(s) Facility Benzodiazepines (1 source) diazePAM; Translations: [diazepam] Drug Allergy Nausea and vomiting [facility] exenatide (1 source) exenatide; Translations: [exenatide] Drug Allergy Nausea and vomiting [facility] Opioid Agonists (1 source) Morphine; Translations: [morphine] Drug Allergy 11-05-20 14 Itching (finding) [facility] Thiazolidinediones (glitazones) (1 source) pioglitazone; Translations: [pioglitazone] Drug Allergy Eruption of skin (disorder) [facility] (20 sources) diazePAM; Translations: [DIAZEPAM] Drug Allergy 02-26-20 17 Vomiting, GI Upset [facility] (4 sources) exenatide; Translations: [BYETTA] Drug Allergy 02-27-20 17 Vomiting [facility] Rep[facility] (20 sources) pioglitazone; Translations: [PIOGLITAZONE] Drug Allergy 02-27-20 17 Eruption of skin (disorder), Other, Swelling [facility] Rep[facility] (20 sources) exenatide; Translations: [exenatide] Drug Allergy 10-22-20 13 Vomiting [facility] (15 sources) Morphine; Translations: [morphine] Drug Allergy 11-05-20 14 Other (qualifier value), Itching (finding) [facility] (3 sources) diazePAM; Translations: [Valium] Drug Allergy [facility] Rep[facility] (1 source) Morphine Drug Allergy [facility] (3 sources) pioglitazone; Translations: [Actos] Drug Allergy [facility] (9 sources) Vancomycin Drug Allergy 01-10-20 24 Unknown, Unknown Reaction [facility] (3 sources) patient allergy list reviewed by nurse or physicia Propensity to adverse reactions 07-08-20 Comment:Done Validity Sensors Other (1 source) Unable to Assess Drug allergy (disorder) 04-10-20 [facility] Repository (2 sources) Byetta Prefilled Pen; Translations: [Byetta Prefilled Pen] Propensity to adverse reactions (disorder) [facility] Repository Medications Current Medications Medication Drug Class(es) [...] mg by mouth. 0 Active Basaglar KwikPen (11 sources) Start: 12-11-19 Basaglar KwikPen Refills(s) [...] on above: Take 1 capsule by mo [facility] three times daily for 3 days. ciprofloxacin 500 mg oral tablet (6 sources) Quinolone Antimicrobial Start: 05-05-20 End: 05-19-20 take 1 tablet by mouth every twelve hours Cipro 500 mg Tab 500 mg = 1 tab(s), Oral, q12hr, X 14 day(s), # 28 tab(s), Refills(s) 0, Pharmacy: [facility]/pharmacy #[id number], 177, cm, 05/05/24 11:12:00 EDT, Height/Length Dosing, 102, kg, 05/05/24 11:12:00 EDT, Weight Dosing Start Date: 05/05/24 Stop Date: 05/19/24 Status: Ordered Start: 10-02-2023 End: 10-09-2023 Cipro 500 mg Tab 500 mg = 1 tab(s), Oral, q12hr, Start 3 days prior to procedure, X 7 day(s), # 14 tab(s), Refills(s) 0, Pharmacy: [facility]/pharmacy #[id number], 177, cm, 06/12/23 16:16:00 EDT, Height/Length Dosing, 111, kg, 12/18/22 15:22:00 EST, Weight Dosing Start Date: 10/02/23 Stop Date: 10/09/23 Status: Ordered Start: 03-13-2022 take 1 tablet by [facility] once daily Cipro 500 mg Tab 500 mg = 1 tab(s), Oral, Daily, take 1 day prior to procedure and 1 tab after procedure, # 2 tab(s), Refills(s) 0, Pharmacy: [facility]/pharmacy #[id number], 177, cm, 03/13/22 15:23:00 EDT, Height/Length [...] 11/01/17 Status: Ordered take 1 capsule by [facility] once daily at [...] See admin instructions. Sliding scale 0 Active Melatonin (20 sources) Start: 03-13-2022 Melatonin Once [...] Pain. 0 Active Multivitamin (Daily Multi-Vitamin) tablet (3 sources) Start: 01-08-2024 take 1 tablet by [...] tablet (20 sources) Serotonin Reuptake Inhibitor Start: 05-04-2024 Sertraline Active 0 .ROUTE .COMPLEX 90 May 04, 2024 6:22pm TAKE 1 TABLET ONCE DAILY ATBEDTIME Start: 01-08-2024 End: 05-04-2024 take 100 mg by mouth once daily Sertraline Discontinued 100 MG PO Daily January 08, 2024 1:00am May 04, 2024 6:22pm Start: 11-01-2017 take 100 mg by mouth twice daily sertraline 100 mg, Oral, BID, Refills(s) 0, Depression Start Date: 11/01/17 Status: Ordered Start: 11-01-2017 take 100 mg by mouth once daily sertraline 100 mg, Oral, Daily, Refills(s) 0, [...] activity, # 30 tab(s), Refills(s) 3, Pharmacy: [facility]/pharmacy #[id number], 177, cm, 12/17/23 11:33:00 EST, Height/Length [...] on above: Take 1 capsule by mo [facility] daily at bedtime. Tirzepatide (3 sources) Start: inject 5 mg by subcutaneous injection every week Tirzepatide Active 5 MG SUBCUT every week 01 16May 27, 2024 11:52am Start: 04-21-2024 End: 04-29-2024 inject 5 mg by subcutaneous injection every week Tirzepatide Discontinued 5 MG SUBCUT every week 2 April 21, 2024 3:51pm April 29, 2024 12:47pm Start: 04-20-2024 End: 04-21-2024 inject 5 mg by subcutaneous injection every week Tirzepatide Discontinued 5 MG SUBCUT every week 01 16April 20, 2024 8:35am April 21, 2024 3:51pm vardenafil 10 mg oral tablet (2 sources) Phosphodiesterase 5 Inhibitor Start: 01-10-2024 take 10 mg by mouth once [...] severe pain). This medication can cause constipation. carvedilol 6.25 mg oral tablet (6 sources) alpha-Adrenergi c Nicolasa, beta-Adrenergic Nicolasa Start: 4 End: 4 take 6.25 mg by mouth every twelve hours at mealtime Carvedilol Discontinued 6.25 MG PO Every 12 hours 60 February 05, 2024 4:36pm February 26, 2024 6:09pm must administer with a meal/food cloNIDine hydrochloride 0.1 mg oral tablet (2 sources) Central alpha-2 Adrenergic Agonist Start: 4 End: 4 take 0.1 mg by mouth twice daily Clonidine Hcl Discontinued 0.1 MG PO Twice daily 60 April 15, 2024 11:45am May 27, 2024 11:47am CoQ-10 100 MG (2 sources) CoQ-10 100 MG as directed Orally Not-Taking docusate sodium 100 mg oral capsule (2 sources) Start: 2 End: 2 take 1 capsule by mouth twice daily docusate sodium (COLACE) 100 mg capsule Take 1 capsule by mouth twice daily. 28 capsule 0 09/11/2022 09/26/2022 Discontinued Comment on above: Take 1 capsule by [facility] twice daily. hydrALAZINE hydrochloride 10 mg oral tablet (4 sources) Arteriolar Vasodilator Start: 4 End: 4 take 10 mg by mouth twice daily Hydralazine Discontinued 10 MG PO Twice daily 60 February 26, 2024 6:01pm March 25, 2024 9:17am hydroCHLOROthiazide 25 mg oral tablet (4 sources) Thiazide Diuretic Start: 4 End: 4 take 25 mg by mouth once daily Hydrochlorothiazide Discontinued 25 MG PO Daily 30 February 05, 2024 4:36pm February 26, 2024 6:00pm K-Effervescent 25 mEq oral tablet, effervescent (6 sources) Start: 3 End: 4 take 1 tablet by mouth twice daily K-Effervescent 25 mEq oral tablet, effervescent 25 mEq = 1 tab(s), Oral, BID, X 90 day(s), # 180 tab(s), Refills(s) 3, Pharmacy: [facility]/pharmacy #[id number], 177, cm, 12/18/22 15:22:00 EST, Height/Length Dosing, 111, kg, 12/18/22 15:22:00 EST, Weight Dosing Start Date: 12/18/22 Stop Date: 12/13/23 Status: Ordered lidocaine hydrochloride 0.02 mg/mg topical gel (1 source) Antiarrhythmic, Amide Local Anesthetic Start: 2 End: 2 lidocaine urojet 2 % 11 mL topical gel (XYLOCAINE, GLYDO) losartan potassium 50 mg oral tablet (20 sources) Angiotensin 2 Receptor Nicolasa Start: 4 End: 4 take 50 mg by mouth twice daily Losartan Discontinued 50 MG PO Twice daily 60 30 February 05, 2024 4:36pm February 26, 2024 6:09pm Start: 11-01-2017 End: 02-26-2024 take 100 mg by mouth once daily Losartan Discontinued 100 MG PO Daily January 08, 2024 1:00am February 26, 2024 6:03pm Comment on above: Take 100 mg by mouth once daily. meloxicam 15 mg oral tablet (15 sources) Nonsteroidal Anti-inflammatory Drug Start: 3 take 1 tablet by [...] 11/01/17 Status: Ordered take 1 capsule by [facility] once daily Metoprolol Succinate 50 MG [...] # 30 tab(s), Refills(s) 11, Pharmacy: [facility] [id number], 177, cm, 06/12/23 16:16:00 EDT, Height/Length Dosing, [...] # 30 tab(s), Refills(s) 3, Pharmacy: [facility] [id number], 177, cm, 03/13/22 15:23:00 EDT, Height/Length Dosing,... [...] 1 tablet by mouth once da maria ugadalupe Tadalafil 5 mg tablet Take 1 tablet [...] Patient takes 0.5 tablet once a day Tirzepatide (3 sources) Start: 4 End: 4 inject 2.5 mg by subcutaneous injection every week Tirzepatide Discontinued 2.5 MG SUBCUT every week 01 16April 29, 2024 12:47pm May 27, 2024 11:53am Start: 03-25-2024 End: 04-20-2024 Tirzepatide (Mounjaro) 2.5 m g/0.5 mL pen injector Discontinued 2.5 MG SUBCUT every week 01 16March 25, 2024 12:00am April 20, 2024 8:35am Start: 03-25-2024 Tirzepatide (M ounjaro) 2.5 mg/0.5 mL pen injector Active 2.5 MG SUBCUT every week 01 16March 25, 2024 12:00am triamcinolone acetonide 40 mg/ml injectable suspension (20 [...] Onset: 2 08-24-2022 Chronic Chronic kidney disease (14 sources) Chronic kidney disease; Translations: [Chronic kidney disease, unspecified] 10-01-2023 Chronic Deficiency and other anemia (20 sources) Anemia; Translations: [Anemia, unspecified] Onset: 3 Episodic Deficiency and other anemia (2 sources) Anemia, unspecified; Translations: [Anemia, unspecified] 01-10-2024 Episodic [...] 2 10-29-2019 Chronic Other aftercare (3 sources) senior care (current) use of insulin; Translations: [Type 2 diabetes mellitus without complication, with long-term current use of insulin (HCC)] Onset: 2 Episodic Other aftercare (1 source) Long-term current use of drug therapy; Translations: [Other penitentiary (current) drug therapy] Episodic Other aftercare (3 sources) High risk drug monitoring status; Translations: [senior care (current) use of opiate analgesic] Episodic Other aftercare (8 sources) Long-term current use of insulin; Translations: [senior care (current) use of insulin] 01-08-2024 Episodic Other [...] Onset: 3 Chronic Other nervous system disorders (2 sources) Neuropathy of lower limb; Translations: [Unspecified mononeuropathy [...] 11-03-2015 Episodic Other aftercare (1 source) Other corporate recruiter (current) drug therapy; Translations: [OTH RESIDENTIAL CURRENT DRUG THERAPY] Onset: 05-29-2022 Episodic Other aftercare (1 source) television parts tester (current) use of oral hypoglycemic drugs; Translations: [MANAGER ENTERPRISE CONTENT MANAGEMENT USE ORAL HYPOGLYCEMIC DX] Onset: 05-08-2022 Episodic [...] Name Value Interpretation Reference Range Facil ity Basophils Auto (Bld) [#/Vol] on 05-23-2024 Basophils (Bld) [#/Vol] 0.0 10 3/uL 0.0-0.1 [facility] Basophils/100 WBC Auto (Bld) on 05-23-2024 Basophils/100 WBC (Bld) 0.4 % 0.2-2.0 [facility] Eosinophils/100 WBC Auto (Bl d)on 05-23-2024 Eosinophils/100 WBC (Bld) 5.9 % 0.9-7.0 [facility] Erythrocyte distribution wid th Auto (RBC) [Ratio]on 05-23-2024 Erythrocyte distribution width (RBC) [Ratio] 13.7 % 11.0-15.0 [facility] Estimated glomerular filtrat ion rate (GFR) non- Americanon 05-23-2024 GFR/1.73 sq M.predicted among non-blacks MDRD (S/P/Bld) [Vol rate/Area] 48 mL/min/{1.73_m2} Low >=60 [facility] Hematocrit Auto (Bld) [Volum e fraction]on 05-23-2024 Hematocrit (Bld) [Volume fraction] 38.2 % Low 42.0-54.0 [facility] Hemoglobin [Mass/volume] in Bloodon 05-23-2024 Hemoglobin (Bld) [Mass/Vol] 12.6 g/dL Low 14.0-18.0 [facility] INR in Platelet poor plasma by Coagulation assayon 05-23-2024 INR Coag (PPP) [Relative time] 1.02 {INR} [facility] Comment on above: DESIRED INR:2.0-3.0 CONDITIONS NOT LISTED BELOW2.5-3.5 FOR PROSTHETIC HEART VALVE REPLACEMENT2.5-3.5 RECURRENT THROMBOSIS Laboratory - Chemistry and C hemistry - challengeon 05-23-2024 Calcium [Mass/Vol] 8.5 mg/dL 8.5-10.1 [facility] Chloride [Moles/Vol] 101 mmol/L 98-107 [facility] CO2 [Moles/Vol] 24.0 mmol/L 21.0-32.0 [facility] Creatinine [Mass/Vol] 1.49 mg/dL High 0.70-1.30 [facility] GFR/1.73 sq M.predicted MDRD (S/P/Bld) [Vol rate/Area] 58 mL/min/{1.73_m2} Low >=60 [facility] Glucose [Mass/Vol] 243 mg/dL High 74-106 [facility] Potassium [Moles/Vol] 4.3 mmol/L 3.5-5.1 [facility] Sodium [Moles/Vol] 137 mmol/L 136-145 [facility] Urea nitrogen [Mass/Vol] 26.0 mg/dL High 7.0-18.0 [facility] Urea nitrogen/Creatini ne [Mass ratio] 17.4 mg/mg [facility] Bilirubin Ql (U) COLOR INTERFERENCE Abnormal NEGATIVE [facility] Ketones Ql (U) COLOR INTERFERENCE mg/dL Abnormal NEGATIV E [facility] Specific gravity (U) [Rel density] >=1.030 Abnormal 1.005-1.025 [facility] Laboratory - Hematology and Cell countson 05-23-2024 Immature granulocytes/100 WBC (Bld) 0.3 % 0.0-0.5 [facility] Laboratory - Specimen inform ationon 05-23-2024 Appearance (U) TURBID Abnormal CLEAR [facility] Comment on above: Clotted Color (U) DK. RED YELLOW [facility] Laboratory - Urinalysison Leukocyte esterase Test strip Ql (U) COLOR INTERFERENCE Abnormal NEGATIVE [facility] Mucus Ql (Urine sed) NONE SEEN NONE SEEN [facility] Nitrite Ql (U) COLOR INTERFERENCE [facility] Protein Ql (U) COLOR INTERFERENCE mg/dL Abnormal NEG/TRA CE [facility] Leukocytes [#/volume] correc bhanu for nucleated erythrocytes in Blood by Automated counon 05-23-2024 WBC corrected for nucl RBC Auto (Bld) [#/Vol] 7.0 10 3/uL 4.0-11.0 [facility] Lymphocytes Auto (Bld) [#/Vo l]on 05-23-2024 Lymphocytes (Bld) [#/Vol] 1.9 10 3/uL 1.2-3.8 [facility] Lymphocytes/100 WBC Auto (Bl d)on 05-23-2024 Lymphocytes/100 WBC (Bld) 26.7 % 20.5-60.0 [facility] MCH Auto (RBC) [Entitic mass ]on 05-23-2024 MCH (RBC) [Entitic mass] 26.9 pg 25.9-34.0 [facility] MCHC Auto (RBC) [Mass/Vol]on 05-23-2024 MCHC (RBC) [Mass/Vol] 33.0 g/dL 29.9-35.2 [facility] MCV Auto (RBC) [Entitic vol] on 05-23-2024 MCV (RBC) [Entitic vol] 81.6 fL 80.0-94.0 [facility] Monocytes Auto (Bld) [#/Vol] on 05-23-2024 Monocytes (Bld) [#/Vol] 0.4 10 3/uL 0.3-0.8 [facility] Monocytes/100 WBC Auto (Bld) on 05-23-2024 Monocytes/100 WBC (Bld) 5.7 % 1.7-12.0 [facility] Neutrophils Auto (Bld) [#/Vo l]on 05-23-2024 Neutrophils (Bld) [#/Vol] 4.3 10 3/uL 1.4-6.5 [facility] Neutrophils/100 WBC Auto (Bl d)on 05-23-2024 Neutrophils/100 WBC (Bld) 61.0 % 43.0-75.0 [facility] No Panel Informationon 05-23 Eosinophils # (Auto) 0.4 10 3/uL 0.0-0.7 [facility] Immature Granulocyte # (Auto) 0.02 10 3/uL 0.00-0.03 [facility] Urine Bacteria NONE SEEN #/HPF NONE SEEN [facility] Urine Culture Reflexed NO [facility] Urine Glucose (UA) COLOR INTERFERENCE mg/dL Abnormal NEGATIVE [facility] Urine Microscopic Review YES [facility] Urine Occult Blood COLOR INTERFERENCE Abnormal NEGATIVE [facility] Urine Other Casts NONE SEEN #/LPF NONE SEEN [facility] Urine Other Crystals None Seen #/HPF None Seen [facility] Urine pH COLOR INTERFERENCE Abnormal 5.0-9.0 [facility] Urine RBC >100 #/HPF Abnormal 0-2 [facility] Urine Squamous Epithelial Cells NONE SEEN #/LPF NONE/RARE [facility] Urine Urobilinogen COLOR INTERFERENCE EU/dL Abnormal 0.2-1.0 [facility] Urine WBC 0-2 #/HPF Abnormal NONE SEEN [facility] Platelet mean volume Auto (B ld) [Entitic vol]on 05-23-2024 Platelet mean volume (Bld) [Entitic vol] 9.5 fL 9.5-13.5 [facility] Platelets Auto (Bld) [#/Vol] on 05-23-2024 Platelets (Bld) [#/Vol] 198 10 3/uL 150-450 [facility] Prothrombin time (PT)on PT Coag (PPP) [Time] 10.8 s 9.0-11.6 [facility] RBC Auto (Bld) [#/Vol]on RBC (Bld) [#/Vol] 4.68 10 6/uL Low 4.70-6.10 [facility] Serum or plasma anion gap de terminationon 05-23-2024 Anion gap [Moles/Vol] 16.3 mmol/L [facility] Ambulatory Visit Summaryon 0 05-20-2024 Ambulatory Visit [...] AM EDT With: Where: [facility] Invalid Interpretation Code [address] [place] [address] [place] [address]- \.br\ Sunday 10:30 AM EST \.br\ With: SANKET PRECIADO, Pelon Mujica\.br\ Where: [facility] Coding Summary.on 05-13-2024 Coding Summary. [id number]+PG hlYWQ +[id number] TElOSywgQVBQTElOSyIgbmFtZ O2yqSXdEWVs IC8+FK6jYILnMdzhmWMbr5S2c KW4W80mhn2gJImmyGQ4UKUbOk Aqinvjs0sarAl5TKkuJgmqWgN t DUDpzF14BLI9mS25Db25jMPen MAom5niyBz6MvSmHYZqZEO2tI arDZvzh7XtZRGaP97hxVPhw2U 6 AXIdoEcrqYRtXiYtoZZ2zE8wT Ntbfgtdx3ivjvclDah7bj07wC Ywq6B1zHV8C8LvovE9GROrmBC g VcitbJCHgW4zgmzit4irjuwyU cCmUMHxGTr7IPe3GOTjkVfjGu OmCC49FPC9HLQogaDoA2WfIYK s dWyzBnB5p7P3Uc4MS0AEHllvJ 1VNTUFSWTwvdGQ+AE93xr37H8 BiLwaxQux1XVXqCUP6iBW8dG5 n VNFnWBonn5G7dTY7S8FieuHxp g5ql5ttWITzWQglD23aqWArz2 M6BETmhYD9DVYseHakZrGycI6 3 Oyc+HXSfeIdlz8MtEdywi0bug 2gylOy7RoddMFSsviVihGhmMP M4m9QjYo2fUFLalVR1fNW5wF4 i OgNdDpN1DEipD923XhLodJOsL ftxS32fW6XmmUR+VMUlKxn3RF PifZrvJU5jV8VmVFOrcrmzfVY m nBkzUD1pAHMdzurzUIZrtI5qU XQjA9o5SaCgDaG7FRbcR3BgVX RiebydNf77mS5wRxOpPxP4HQt u M2JuruC5IXQbpKCoSHsaRXY3W 36hp1V0CHPyYYScMAM5fNN9yD 1hbGlnbjogbGVmdDsgdmVydGl j NJlgVChjI124FBUerYqkQrUmW GluZyBEYXRlOiAgMDYvMjUvMj AyNDwvdGQ+QNLfRNX5vYjqAXG n nKMoYPthIy1qgHmlpOxtSZ2hL KRxpefpALAgmD6hIHBztORajZ kyNC6xJASoghjwi891PcJnMFI 0 IGUtgHCiU3PdoO3ySuJwTTUrS GYeX2MooIZxADkeB522NYmlPj C7QXRigwLaF7OoIWChsNtrUbO 0 i7R4At9Ld0QsaswjK2WnhJOmH nXlMlvdDDq7K6PhDwhikWR+PC 46TEZuLT36BKo2WCV7uGcfDMx i PUXdF5IekE9wDcQcNGCcJCYvP yc+PHRhYmxlIHdpZHRoPScxMD RwKbNzxJviVX7tKh3cVJCaMKR v wKfxbAYuMvDaz5tnIONdPKtiY T1doUrsI4MycTS1NWAgz0q9Dr 14G82kC8OrcLW+VKDpdNQ2gXX 0 eU2jMwOqKcN9LMhvE108OmKvg UJtAqcyr2kxi8nmzMk3WkM5UB LxtoMeuBbvMOJ9u8CjTl32U65 s IHdpZHRoPSIxNSUiIHZhbGlnb e4uoU5nJi0+DBWghHR3gXV0eI 7hReGkJeX9PUzjG496QpUzwDB v Jqxqk3vcf0pfbWj8BjHwVDCwh rDcvNhiSOA5w3OtIy79V3KheB sfq0EzOee2zy49vKTdq4G5iFM 9 T2UlHNYwxzmxlWKtpOcnOJ7yO MSqiwwhEKDycK0oPPFdC3l9Em AlEqO3QHbjY5YhwdX2MKTjnJI g UMDlwLQWyY9itohxu7kduquuE uHjDOCsAOb5VPo7TTLinNtoPm AyOKD2FaO1VIF6jZKsxZ7vdKs n fjmcvP7iRse+WXE4oMHchAYYZ G5iGyomqBL+NQNsUFQ3hKlpXL stKCFljM6lVEHaT7a7FfCmYuC 1 NIydQ2SipnV6YQLseDDqBKFrh KJHeV5dwrpom8mqqyxiOlMsPY HfUQz3ASw0PDGphYpzSfTjFIX 0 NoX0VLI2fCCqpQ7wqFyvxigfr G9wOyc+ZtrclDktIHH3QUz2Q8 RdOyy5HKHgcUqdTX4laHTlSUg u Az7zmYtogBhnMO2vOOBbcqmuk 594UzRvu6jaURGcoVXnBUxnNQ D8Q32rq7N8QAZiPEQeTEM0qKP 4 iM5txOuqrheqoWIcqAepsgSul IfqSUszDUawH673CMEtoNlnYk DoVVz2K1YtHsx5YCJrkAmnVE1 n sDAgJTqvNb0wfRfxyPtgEY8mE DLkvwglj074IfGfk3dlWEPtbM RhLSdkZAK6P75bg3Y1KABrULX w NZP6eNS0bT4otWafzbyddSEaj DrbgyQouZsiRUqaEDbrK835GJ UkuImrCjPsxRd3J0VfJqj6ZDH z xPrkHM6fnAHkEYlmSu0chWfcr JveIM4yAQIzyyfea906TsFwr9 bkCBLguBEiTUhpFIR4Z22ke4R 6 JNBpWBDvHLX8bLI8wP8xgXryc jogbGVmdDsgdmVydGljYWwtYW szJ031VZXkaRdrFyTsjPqbwgA g RUydEUy1X2UkTquspTL+PC90Y OItNN87uLKlaJNth3mokUd6Dg PlLQIoHIO1dJktAVemu5PkHZK t T22nlYVja8E7UVFbgWxskERtX wNwoJZ3xM0cDFqxiscvo2nwkq rkYryvu2tims62eR16E66wREj p ULNkQHXxWJKqHWOwtEbtqm6vv G9wIi8+DLAovZN5zUZ2yL6zKA ZjRnU6EPelJ491WpTemWBlVdw j p1wuo1altNe0OfQ4CUGchmAmv AlfGTL8l8XnOf29I93nDOsjKO FrTSTbGTPhOPLkuNnwfv7kcL4 w Ii8+FAIcxAQ9jRU0bS6nBfNoV yU7XPujB192CrHboHAtBnmxT6 3iA1YjoTY+AFNoMpp3JUCpaAz s LI8ttTGwBSriXs0qFYW8ScWaO mIwUGhmH4FdZIOqaclcnxjjqI L9PALhVUSwfN77Kt4hdEhzEFI w aQHEuF0rowcgt7ysmegoVoZuW FFuFYd7ETx0OYXsiPifIyAyTZ L0PaX7NPS2mEUkfQ5voAshlel g yX2gC4WcPOAjuvpeUj02gF1xJ jUyGzG9KGysZvh+QURBTVMsIF ENFREGTYYPMY42AG41hTFts5G 5 kER7Z5NhJJAfkfbxhwcnaSV0Q BPeTZXznB87hWGiKUofKe3ib9 H2e127MXMdDEPoiV03Uu9noDu g NLGmnOKLsV7qzbvoc1bkkqcaQ zYtUNTuHSf0FJk9DPFjiDeiAb FmXYE7IuK7XOV2iPJfwF1vzTj n pavtfS3nEaz+YGAmTYFhZVg1A jwvdGQ+SAYtZHZ1lRbgQFmhYD XoqS7hVZCwW2p3UwLhWgD8TJe u M2XtBARbkffsPm32gA8eTlDqM aP0IIpvV9UpshJ6GRCtzFWfKZ uoMNR2N88is7H6SMHcRQAiCVP 7 pCA5kT6ekOtwqgiunQUgfMqys cRolNwyRKvqHThiK489VUTveH caPiKpSFboLBMxWQ60ZW01qCC g s9Z0gEI4Q4SwBKGeordijnjir LJ8CKUyIHKwqD66vWOtYGesHl 6bf7S1q357OQYjAJPvxY37Hs7 u qTgaATKgpCIVqS0lqmpor0fdx dibJmIpUAIeRQr9UVy9MSWgjH tnXhWwTUL4YhP2CWL8hKWrfK6 h iLtrvbshxS9dCac+TWFsZTwvd GQ+EOVgFIT8kRorCNhaEYSuoI 8dPKNeS7n0CbKsRtZ1DKseK4U h KQBgcmiiLs55nQ9lEwLiYeS8Q EziP2UymmY6QFEolNFgOWucYN Z2O12vv1Z2DVJpVVQzJUC3rBR 4 lF1fkOysbnilgKZsfNmdcoLqq JxeYUtnQVztL113BOXqzDwmSa zwMpPSig1nPV0yNilqaRL+PC9 0 vo16I9QmStgiSjx0GLZlCRL7w BM5uM9cGXVbXOani4W0iLM1A2 LimlHujd5lw9vyTXYwJDmiG42 s eMFwc7M8XLNxgWL9WLWxzPvvC gYloS21Rrt+JDLzqZmte0YnKw lmk9lss4okfYy3InImGPDzpvZ s rMajFMP2p2GiKo54Y75bGZmfI ZVgHKHyGTEwUYMfwRibos4olY 9wIi8+BAPleBJ2oLG7tU1iTmK l RvQ9TZkpR851HxKqgIJfEvfoq 3wxw6nvpXp9YaLvTXAoxfTazR bnUCW8n8QaHl81G4ZvnScsh8B w Tmy5dp00yIJwg3W3bJZ5R1GxB FUnyviigWQysLtoTP0nODEpkx fuABBxlV0vUTHpO4p2FsHzYeE 1 KSinK0LxozQ1XILdrZToGHYxe BLPzV6omjpmw0maygbqWlFnQC FgNZr7FHo6EFCpxSozMfCxFRT 0 MqY3NDB4zOAxsQ3opSjnkjdiq G9wOyc+CSn7b3utvMGhOA9wbB F3NQ02NM86wOGhq7R1fOZ8L2B h HMEychsnshskhTK7AHMsEXIse B14Rs3lpTwrXr5bJMQvLUU2XN SstSBqU4JxjD5rGyNtQZBmXZM w P4SrcANcOOcbB985WAdcLfP0D XKrtaScP8ZwYPDydHtfVgS3a5 V6Nj4JIF31OA11FW69tYHxr8D 5 pQJ0W6QxVREsxjozsjhxqKM5Z ERvSMCywJ33Ys7udRyvKm8gPY TePDN7JLUulUVpL2MscB1nVcS j YUAhMTAoC6BjyGNrUUxsI033A CwfLoS3JVNixyVeL5MdQGYybE fuQmF2s9O7Dp0YYd46IR13QS5 8 kBRge8P6fOR2A1IvJPUsexfvb lvnmGH9PREgLSIveY60Wv4klI paQt8oGRLaJFZ7NHOvbJMvQ4T v yC0gUkDrAEVwOKObS3VplLCsS RdgJ863CLceEsF2VJKjioMtU1 WbUHAloZjdSrN6z9F4Mg3KMBj l dcc8G9PbKxraeWK+IZ76SONkO S80pBJejWJvv7htkKt0TnJnKG IuXUM2iAgzRTuff8TqDWRsG80 s vXIlz2C9OOPvn (more content not included)... Normal [facility] RAD - CT Reporton 05-13-2024 RAD - CT Report [id number]#1.00TIFF Normal [facility] Estimated glomerular filtrat ion rate (GFR) non- Americanon 05-12-2024 GFR/1.73 sq M.predicted among non-blacks MDRD (S/P/Bld) [Vol rate/Area] 55 mL/min/{1.73_m2} Low >=60 [facility] Laboratory - Chemistry and C hemistry - challengeon 05-12-2024 Creatinine [Mass/Vol] 1.32 mg/dL High 0.70-1.30 [facility] GFR/1.73 sq M.predicted MDRD (S/P/Bld) [Vol rate/Area] mL/min/{1.73_m2} >=60 [facility] Reminderson 05-12-2024 Reminders - From: Nelida [...] 06/2025 for 1 year cysto/fish/cytol (bt ck) Normal [facility] Insurance Correspondenceon 0 05-08-2024 Insurance Correspondence [id number]#1.00TIFF [facility] C Urineon 05-07-2024 Bacteria identified [...] Locations R1: This test was performed at: [facility], [address] [place] [address], [facility] , , [facility] Comment on above: Performed By: #### 2 [id number] #### [facility] [address] [place] [address] Consent for Procedure/Surger yon 05-06-2024 Consent for Procedure/Surgery [id number]#1.00TIFF [facility] Ambulatory Visit Summaryon 0 05-05-2024 Ambulatory Visit Summary DAT LOPEZ James :1960 Visit Date:05/05/2024 Ambulatory Visit Instructions Your [...] COLES MD Where: [facility] Patient Educationon 05-05-20 24 Patient [...] these instructions at home: Medicines ? Take nbgf-syw-luseibu and prescription medicines only as told by [...] Where to find more information ? National [place] [employer] Diabetes and Digestive and Kidney Diseases: (more content not included)... Normal [facility] Urology Office/Clinic Noteon 05-05-2024 Urology Office/Clinic Note [...] 2 wk. SEs discussed. Rx sent to [facility]. -Will schedule cysto. The risks [...] cancer (Z85.51: (more content not included)... Normal [facility] Comment on above: Result Comment: Elec tronically Signed By: SANKET PRECIADO, Pelon Mujica\.br\Date and Time Signed: 05/05/24 12:21 EDT\.br\Electronically Co-Signed By: Jocelyne Moore\.br\Date and Time Co-Signed: 05/05/24 12:20 EDT Estimated glomerular filtrat ion rate (GFR) non- Americanon 02-22-2024 GFR/1.73 sq M.predicted among non-blacks MDRD (S/P/Bld) [Vol rate/Area] 40 mL/min/{1.73_m2} >=60 [facility] Laboratory - Chemistry and C hemistry - challengeon 02-22-2024 Calcium [Mass/Vol] 9.4 mg/dL 8.5-10.1 [facility] Chloride [Moles/Vol] 103 mmol/L 98-107 [facility] CO2 [Moles/Vol] 27.0 mmol/L 21.0-32.0 [facility] Creatinine [Mass/Vol] 1.73 mg/dL 0.70-1.30 [facility] GFR/1.73 sq M.predicted MDRD (S/P/Bld) [Vol rate/Area] 49 mL/min/{1.73_m2} >=60 [facility] Glucose [Mass/Vol] 192 mg/dL 74-106 [facility] Potassium [Moles/Vol] 4.1 mmol/L 3.5-5.1 [facility] Sodium [Moles/Vol] 140 mmol/L 136-145 [facility] Urea nitrogen [Mass/Vol] 25.0 mg/dL 7.0-18.0 [facility] Urea nitrogen/Creatini ne [Mass ratio] 14.5 mg/mg [facility] Serum or plasma anion gap de terminationon 02-22-2024 Anion gap [Moles/Vol] 14.1 mmol/L [facility] Basophils Auto (Bld) [#/Vol] on 01-26-2024 Basophils (Bld) [#/Vol] 0.0 10 3/uL 0.0-0.1 [facility] Basophils/100 WBC Auto (Bld) on 01-26-2024 Basophils/100 WBC (Bld) 0.4 % 0.2-2.0 [facility] Cholesterol in LDL Calc [Mas s/Vol]on 01-26-2024 Cholesterol in LDL [Mass/Vol] 72.0 mg/dL [facility] Comment on above: <100 mg/dl QZDNBFU97 0-129 mg/dl NEAR OR ABOVE PWTNITB709-862 mg/dl BORDERLINE PNRC809-356 mg/dl HIGH>190 mg/dl VERY HIGH Cholesterol in VLDL Calc [Ma ss/Vol]on 01-26-2024 Cholesterol in VLDL [Mass/Vol] 27.8 mg/dL [facility] Eosinophils/100 WBC Auto (Bl d)on 01-26-2024 Eosinophils/100 WBC (Bld) 5.1 % 0.9-7.0 [facility] Erythrocyte distribution wid th Auto (RBC) [Ratio]on 01-26-2024 Erythrocyte distribution width (RBC) [Ratio] 13.6 % 11.0-15.0 [facility] Estimated glomerular filtrat ion rate (GFR) non- Americanon 01-26-2024 GFR/1.73 sq M.predicted among non-blacks MDRD (S/P/Bld) [Vol rate/Area] 51 mL/min/{1.73_m2} >=60 [facility] Globulin Calc (S) [Mass/Vol] on 01-26-2024 Globulin (S) [Mass/Vol] 3.4 g/dL [facility] Glucose mean value [Mass/vol ume] in Blood Estimated from glycated hemoglobinon 01-26-2024 Average glucose Estimated from glycated hemoglobin (Bld) [Mass/Vol] 131 mg/dL [facility] Hematocrit Auto (Bld) [Volum e fraction]on 01-26-2024 Hematocrit (Bld) [Volume fraction] 43.6 % 42.0-54.0 [facility] Hemoglobin [Mass/volume] in Bloodon 01-26-2024 Hemoglobin (Bld) [Mass/Vol] 14.0 g/dL 14.0-18.0 [facility] Laboratory - Chemistry and C hemistry - challengeon 01-26-2024 Albumin [Mass/Vol] 3.9 g/dL 3.4-5.0 [facility] ALP [Catalytic activity/Vol] 92 U/L 46-116 [facility] ALT [Catalytic activity/Vol] 48 U/L 16-63 [facility] AST [Catalytic activity/Vol] 35 U/L 15-37 [facility] Bilirubin [Mass/Vol] 0.5 mg/dL 0.2-1.0 [facility] Calcium [Mass/Vol] 8.9 mg/dL 8.5-10.1 [facility] Chloride [Moles/Vol] 104 mmol/L 98-107 [facility] Cholesterol [Mass/Vol] 135 mg/dL <=200 [facility] Cholesterol in HDL [Mass/Vol] 36 mg/dL 40-60 [facility] Comment on above: > or =60 mg/dl - LOW CARDIOVASCULAR RISK<40 mg/dl - HIGH CARDIOVASCULAR RISK CO2 [Moles/Vol] 25.0 mmol/L 21.0-32.0 [facility] Creatinine [Mass/Vol] 1.42 mg/dL 0.70-1.30 [facility] GFR/1.73 sq M.predicted MDRD (S/P/Bld) [Vol rate/Area] mL/min/{1.73_m2} >=60 [facility] Glucose [Mass/Vol] 134 mg/dL 74-106 [facility] Potassium [Moles/Vol] 4.5 mmol/L 3.5-5.1 [facility] Protein [Mass/Vol] 7.3 g/dL 6.4-8.2 [facility] Sodium [Moles/Vol] 139 mmol/L 136-145 [facility] Triglyceride [Mass/Vol] 139 mg/dL <=150 [facility] Urea nitrogen [Mass/Vol] 20.0 mg/dL 7.0-18.0 [facility] Urea nitrogen/Creatini ne [Mass ratio] 14.1 mg/mg [facility] Laboratory - Hematology and Cell countson 01-26-2024 HbA1c (Bld) [Mass fraction] 6.2 % 4.5-6.2 [facility] Comment on above: ADA RECOMMENDED LIMI T 4.0 - 6.0ADA THERAPEUTIC TARGET < 7.0ACTION SUGGESTED> 7.0 Immature granulocytes/100 WBC (Bld) 0.4 % 0.0-0.5 [facility] Leukocytes [#/volume] correc bhanu for nucleated erythrocytes in Blood by Automated counon 01-26-2024 WBC corrected for nucl RBC Auto (Bld) [#/Vol] 6.8 10 3/uL 4.0-11.0 [facility] Lymphocytes Auto (Bld) [#/Vo l]on 01-26-2024 Lymphocytes (Bld) [#/Vol] 2.0 10 3/uL 1.2-3.8 [facility] Lymphocytes/100 WBC Auto (Bl d)on 01-26-2024 Lymphocytes/100 WBC (Bld) 28.9 % 20.5-60.0 [facility] MCH Auto (RBC) [Entitic mass ]on 01-26-2024 MCH (RBC) [Entitic mass] 26.9 pg 25.9-34.0 [facility] MCHC Auto (RBC) [Mass/Vol]on 01-26-2024 MCHC (RBC) [Mass/Vol] 32.1 g/dL 29.9-35.2 [facility] MCV Auto (RBC) [Entitic vol] on 01-26-2024 MCV (RBC) [Entitic vol] 83.7 fL 80.0-94.0 [facility] Microalbumin [Mass/volume] i n Urineon 01-26-2024 Albumin DL <= 20 mg/L (U) [Mass/Vol] 7.8 mg/dL <=30.0 [facility] Monocytes Auto (Bld) [#/Vol] on 01-26-2024 Monocytes (Bld) [#/Vol] 0.5 10 3/uL 0.3-0.8 [facility] Monocytes/100 WBC Auto (Bld) on 01-26-2024 Monocytes/100 WBC (Bld) 7.2 % 1.7-12.0 [facility] Neutrophils Auto (Bld) [#/Vo l]on 01-26-2024 Neutrophils (Bld) [#/Vol] 4.0 10 3/uL 1.4-6.5 [facility] Neutrophils/100 WBC Auto (Bl d)on 01-26-2024 Neutrophils/100 WBC (Bld) 58.0 % 43.0-75.0 [facility] No Panel Informationon 01-25 Eosinophils # (Auto) 0.4 10 3/uL 0.0-0.7 [facility] Immature Granulocyte # (Auto) 0.03 10 3/uL 0.00-0.03 [facility] Platelet mean volume Auto (B ld) [Entitic vol]on 01-26-2024 Platelet mean volume (Bld) [Entitic vol] 10.0 fL 9.5-13.5 [facility] Platelets Auto (Bld) [#/Vol] on 01-26-2024 Platelets (Bld) [#/Vol] 175 10 3/uL 150-450 [facility] RBC Auto (Bld) [#/Vol]on RBC (Bld) [#/Vol] 5.21 10 6/uL 4.70-6.10 [facility] Serum or plasma albumin/glob ulin mass ratioon 01-26-2024 Albumin/Globulin [Mass ratio] 1.1 {ratio} [facility] Serum or plasma anion gap de terminationon 01-26-2024 Anion gap [Moles/Vol] 14.5 mmol/L [facility] Serum or plasma total choles terol/high density lipoprotein (HDL) cholesterol mass pebbles 01-26-2024 Cholesterol.total /Cholesterol in HDL [Mass ratio] 3.8 {ratio} [facility] Comment on above: 3.3 - 4.4 LOW RISK4. 4 - 7.1 AVERAGE RISK7.1 - 11.0 MODERATE RISK>11.0 HIGH RISK Ambulatory Visit Summaryon 0 1-29-2024 Ambulatory Visit Summary DAT LOPEZ :1960 Visit [...] COLES MD Where: [facility] Patient Educationon 12-17-19 24 Patient Education Urology [...] these instructions at home: Medicines ? Take azdg-hif-xxucptu and prescription medicines only as told by [...] include cig (more content not included)... Normal [facility] Urology Office/Clinic Noteon 12-17-2023 Urology Office/Clinic Note [...] COLES MD, URL [facility] [address] [place] [address]- [phone] Additional Instructions: 1 yr w/ PSA and KUB Patient Education Erectile Dysfunction I, Sahra Daugherty, personally scribed for Dr. Coles on 12/17/2023 12:55:15. . Documentation recorded by the scribeSahra, accurately reflects the services(s) I performed and decisions made by me. Authenticated by Dr. Coles on 12/17/2023 12:57:24. Problem List/Past Medical History Ongoing Abdominal bloating Anemia Antral ulcer Arthritis Benign n (more content not included)... Normal [facility] Comment on above: Result Comment: Elec tronically Signed By: Pelon COLES MD\.br\Date and Time Signed: 12/17/23 12:57 EST\.br\Electronically Co-Signed By: Sahra Daugherty\.br\Date and Time Co-Signed: 12/17/23 12:55 EST Prostate Histology ([facility]) on 12-07-2023 Prostate Histology Diagnosis Info Invalid Interpretation Code [facility] Comment on above: Result Comment: A:Pr ostate,Left Lateral Base:Needle Biopsy Interpretation - - Benign prostatic tissue (see comment). MicroScopic Description - B:Prostate,Left Lateral Mid:Needle Biopsy Interpretation - - Benign prostatic tissue. MicroScopic Description - C:Prostate,Left Lateral Trevor:Needle Biopsy Interpretation - - Benign prostatic tissue. MicroScopic Description - D:Prostate,Left Base:Needle Biopsy Interpretation - - Benign prostatic tissue (see comment). MicroScopic Description - E:Prostate,Left Mid:Needle Biopsy Interpretation - - Benign prostatic tissue (see comment). MicroScopic Description - F:Prostate,Left Trevor:Needle Biopsy Interpretation - - Benign prostatic tissue. MicroScopic Description - G:Prostate,Right Base:Needle Biopsy Interpretation - - Benign prostatic tissue with patchy chronic inflammation. MicroScopic Description - H:Prostate,Right Mid:Needle Biopsy Interpretation - - Benign prostatic tissue. MicroScopic Description - I:Prostate,Right Trevor:Needle Biopsy Interpretation - - Benign prostatic tissue. MicroScopic Description - J:Prostate,Right Lateral Base:Needle Biopsy Interpretation - - Benign prostatic tissue (see comment). MicroScopic Description - K:Prostate,Right Lateral Mid:Needle Biopsy Interpretation - - Benign prostatic tissue (see comment). MicroScopic Description - L:Prostate,Right Lateral Trevor:Needle Biopsy Interpretation - - Benign prostatic tissue. [...] J and K: PIN4 reviewed. CPT code: 63434 x 12 68956 x 5 Electronically signed by : on: 12/07/2023 13:49:50 Performed By: #### 1 [id number] ####[facility] [address] [place] [address] Consent for Procedure/Surger yon 11-29-2023 Consent for Procedure/Surgery [id number]#1.00TIFF Normal [facility] Prostate Histology ([facility]) on 11-28-2023 PH Method of Extraction Needle Biopsy Normal [facility] Comment on above: Performed By: #### 1 [id number] ####[facility] [address] [place] [address] PH Number of Jars 2 Invalid Interpretation Code [facility] Comment on above: Performed By: #### 1 [id number] ####[facility] [address] [place] [address] PH Specimen 1 R Base Prostate Normal [facility] Comment on above: Performed By: #### 1 [id number] ####[facility] [address] [place] [address] PH Specimen 10 L Lat Mid Prost Normal [facility] Comment on above: Performed By: #### 1 [id number] ####[facility] [address] [place] [address] PH Specimen 11 L Apx Prostate Normal [facility] Comment on above: Performed By: #### 1 [id number] ####[facility] [address] [place] [address] PH Specimen 12 L Lat Apx Prost Normal [facility] Comment on above: Performed By: #### 1 [id number] ####[facility] [address] [place] [address] PH Specimen 2 R Lat Bse Prost Normal [facility] Comment on above: Performed By: #### 1 [id number] ####[facility] [address] [place] [address] PH Specimen 3 R Mid Prostate Normal [facility] Comment on above: Performed By: #### 1 [id number] ####[facility] [address] [place] [address] PH Specimen 4 R Lat Mid Prost Normal [facility] Comment on above: Performed By: #### 1 [id number] ####[facility] [address] [place] [address] PH Specimen 5 R Apx Prostate Normal [facility] Comment on above: Performed By: #### 1 [id number] ####[facility] [address] [place] [address] PH Specimen 6 R Lat Apx Prost Normal [facility] Comment on above: Performed By: #### 1 [id number] ####[facility] [address] [place] [address] PH Specimen 7 L Base Prostate Normal [facility] Comment on above: Performed By: #### 1 [id number] ####[facility] [address] [place] [address] PH Specimen 8 L Lat Bse Prost Normal [facility] Comment on above: Performed By: #### 1 [id number] ####[facility] [address] [place] [address] PH Specimen 9 L Mid Prostate Normal [facility] Comment on above: Performed By: #### 1 [id number] ####[facility] [address] [place] [address] PH Type of Service Technical Only Normal [facility] Comment on above: Performed By: #### 1 [id number] ####[facility] [address] [place] [address] Ambulatory Visit Summaryon 0 11-27-2023 Ambulatory Visit Summary DAT LOPEZ James :1960 Visit Date:11/27/2023 Ambulatory Visit Instructions Your [...] (10/2017), Biopsy of prostate (2017), bladder tumor (2007), right leg bone tumor (2001), ankle surgery, Lithotripsy, Transurethral water vapour ablation of prostate. Discharge Vitals Heart Rate (Peripheral) 73 Blood Pressure 149/79 Height 177 cm Height 70 in Weight 104 kg Weight 228.8 lb BMI 33.2 What to do next Scheduled Follow-Up Appointments Sunday 10:30 AM EST With: SANKET PRECIADO, Pelon Mujica Where: [facility] Patient Educationon 11-27-19 Patient Education [...] near your rectum, especially while sitting. ? [place]-colored urine due to small amounts of blood in your urine. ? A burning feeling while urinating. ? Blood in your stool (feces) or bleeding from your rectum. ? Blood in your semen. Follow these instructions at home: Medicines ? Take rjrz-oko-aohkone and prescription medicines only as told by [...] provider. Document Revised: 05/01/2022 Document Reviewed: 05/01/2022 [employer] Patient Education ? 2022 [email or web address]. [facility] Urology Office/Clinic Noteon 11-27-2023 Urology Office/Clinic Note [...] COLES MD, URL [facility] [address] [place] [phone] Additional Instructions: review path on 12/14/23 Patient Education Transrectal Ultrasound-Guided Prostate Biopsy, Care After ISahra, personally scribed for Dr. Coles on (more content not included)... Normal [facility] Comment on above: Result Comment: Elec tronically Signed By: Pelon COLES MD\.br\Date and Time Signed: 11/27/23 16:43 EST\.br\Electronically Co-Signed By: Sahra Daugherty\.br\Date and Time Co-Signed: 11/27/23 16:39 EST Insurance Correspondenceon 0 11-26-2023 Insurance Correspondence [id number]#1.00TIF Frankie Cooper [facility] Ambulatory Visit Summaryon 1 01-15-2023 Ambulatory Visit [...] PRECIADO, Pelon Mujica Where: [facility] [address] [place] [address]- \.br\ Medications\.br \ What How Much When [...] for choosing us for your care.\.br\ \.br\ [facility] General Surgery Office/Clini c Noteon 11-14-2023 General [...] virus vaccine, inactivated 07/2023 Recorded SARS-CoV-2 (COVID-19) mRNAMUL.ORD!k87963 08/13/2022 Recorded influenza virus vaccine, inactivated 07/26/2022 Recorded SARS-CoV-2 (COVID-19) mRNA BNT-162b2 vax 10/23/2021 Recorded influenza virus vaccine, inactivated 08/10/2021 Recorded SARS-CoV-2 (COVID-19) Ad26 vaccine 04/15/2021 Recorded SARS-CoV-2 (COVID-19) Ad26 vaccine 03/25/2021 Recorded SARS-CoV-2 (COVID-19) mRNA BNT-162b2 vax 02/15/2021 Recorded SARS-CoV-2 (COVID-19) mRNA BNT-162b2 vax 01/25/2021 Recorded influenza virus vaccine, live, trivalent 07/2019 Re (more content not included)... Normal [facility] Comment on above: Result Comment: Elec tronically [...] not retrieved (2022)/history of colon polyps. Normal [facility] Outside Colonoscopyon 2022 Outside Colonoscopy [id number]#1.00TIFF Normal [facility] Pathology Noteon 11-06-2023 Pathology Note [id number]#1.00TIFF Normal [facility] Ambulatory Visit Summaryon 1 12-30-2022 Ambulatory Visit Summary DAT LOPEZ :1960 Visit Date:10/29/2023 Ambulatory Visit Instructions Your Diagnosis History of kidney stones Elevated PSA BPH with obstruction/lower urinary tract symptoms Prostate nodule History of bladder cancer Erectile dysfunction Tests Performed Urnls Dip Stick Auto w/o Microscopy POC 27621 Your Care Team Attending Physician - SANKET [...] Pelon COLES MD Where: [facility] Meghann Normal [address] [place] [address]- \.br\ You Need to Schedule the Following Appointments\.b r\ Follow Up with Pelon COLES MD, URL When: \.br\ Comments:\.br\ Scheduled for TRUS/bx on 11/27/23.\.br\ Where:\.br\ [facility] [address], [place]\.br\ [place] [address].br\ Medications\.br \ What How Much When Instructions\.b [...] Urnls Dip Stick Auto w/o Microscopy POC 96786 (10/29/2023)\.b r\ Bilirubin Urine Dipstick - Negative\.br\ Blood Urine Dipstick - Negative\.br\ Glucose Urine Dipstick - Negative\.br\ Ketones Urine Dipstick - Negative\.br\ Leukocytes Urine Dipstick - Negative\.br\ Nitrite Urine Dipstick - Negative\.br\ Protein Urine Dipstick - Trace\.br\ Specific [place] Urine Dipstick - 1.020\.br\ Urine Appearance Urine [...] for choosing us for your care.\.br\ \.br\ [facility] Urology Office/Clinic Noteon 10-29-2023 Urology Office/Clinic Note [...] refills. Follow-up With When Contact Information Pelon CLOES MD, URL [facility] [address], [place] [address]- Additional Instructions: Scheduled for TRUS/bx on 11/27/23. [...] disease Depression Diabetes (more content not included)... [facility] Comment on above: Result Comment: Elec tronically Signed By: Pelon COLES MD\.br\Date and Time Signed: 10/29/23 15:44 EST\.br\Electronically Co-Signed By: Va Rivers\.br\Date and Time Co-Signed: 10/29/23 15:42 EST Consent for Procedure/Surger yon 10-09-2023 Consent for Procedure/Surgery [id number]#1.00TIFF [facility] Insurance Correspondenceon 1 12-08-2022 Insurance Correspondence [id number]#1.00TIFF [facility] Ambulatory Visit Summaryon 1 12-05-2022 Ambulatory Visit Summary DAT LOPEZ James :1960 Visit Date:10/05/2023 Ambulatory Visit Instructions Your [...] PRECIADO, Pelon Mujica Where: [facility] [place] [address] [place] [id number] \.br\ Medications\.br \ What How Much When [...] for choosing us for your care.\.br\ \.br\ [facility] RAD - MRI Reporton RAD - MRI Report [id number]#1.00TIFF Normal [facility] Reminderson 09-14-2023 Reminders - From: Nelida Ortiz To: [facility] - Recalls Sanket; Cc: Nelida Ortiz; Sent: 08/09/2023 16:23:35 EDT Show up: 02/18/2024 16:23:00 EDT Subject: MRI of prostate Due Date/Time: 03/10/2024 16:23:00 EDT Reminder/Recall Pt is due for MRI of prostate w/wo in March 2024. pt ended up having it done Aug 2023. see message re: results for PRW plan. Normal [facility] MR prostate wo/w conon 09-11 MR prostate wo/w con [facility] [place] [address] MRI Report Signed Patient: Dat Lopez JR MR#: [id number] : 1960 Acct:[id number] Age/Sex: 63 / M ADM Date: 09/11/23 Loc: Room: Type: [facility] Attending Dr: Pelon Coles MD [...] Boston Jr., D.O.09/11/2023 4:28 PM Dictation Location: [place] [address] Transcribed By: [facility] 09/11/23 1628 Dictated By: Mitul Boston Jr, DO 09/11/23 1621 Signed By: 09/11/23 1628 [employer] Insurance Correspondenceon 0 06-26-2023 Insurance Correspondence [id number]#1.00CD:1 27 Normal [facility] [employer] Fish and Urine Cyt o ([facility])on 06-25-2023 [facility] UC Diagnosis Info Invalid Interpretation Code [facility] [facility] Comment on above: Result Comment: A:Ur ine,Urine:Voided [...] cytology, and continued follow-up are recommended.* CPT 47671, 36000. Microscopic Notes - Microscopic Notes - Abnormal cells 9p21 deletions: Abnormal cells aneploid events: Total cells analyzed: 3 Hematuria: Gross Description Site ID:A color Yellow fixative Alcohol Received 80 mls of clear yellow fluid with the patient's name and, Urine on the vial. Electronically signed by : on: 06/25/2023 10:51:09 Performed By: #### 1 [id number] ####[facility] [id number] [place] [address] Consent for Procedure/Surger yon 06-12-2023 Consent for Procedure/Surgery [id number]#[id number]:12 7 Normal [facility] Consent for Treatmenton 05-20 Consent for Treatment [id number]#1.00CD:12 7 Normal [facility] IntraOperative Documentson 0 06-12-2023 IntraOperative Documents [id number]#1.00CD:12 7 Normal [facility] Main OR Intraoperative Recor don 06-12-2023 Main OR Intraoperative Record IntraOp Document Type FTURO Summary Primary Physician: Pelon COLES MD Finalized Date/Time: 06/12/23 12:24:53 Pt. Name: DAT LOPEZ James Guzman/Sex: 1960 Male Med Rec #: [id number] Physician: Pelon COLES MD Financial #: [id number] Pt. 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 Name: DAT LOPEZ/Sex: 1960 Male Med Rec #: [id number] Physician: Pelon COLES MD Financial #: [id number] Pt. Type: O Room/Bed: / Admit/Disch: 06/12/23 [...] of Pain: No ambulation Skin Integrity Intact, [place], Warm, & Dry Vitals - EU Blood [...] AUDRA Flores RN, Ruthann 06/12/23 12:21 Normal [facility] Operative Reporton Operative Report Patient: SAMANTHA LOPEZ [...] with antibiotic coverage, Follow up arranged. Normal [facility] Comment on above: Result Comment: Elec tronically Signed By: SANKET PRECIADO, Pelon Heller.br\Date and Time Signed: 06/12/23 12:31 EDT Outpatient Surgery Discharge Instructionon 06-12-2023 Outpatient Surgery Discharge Instruction [id number]#[id number]:12 7 Normal [facility] UroVysion Fish and Urine Cyt o ([facility])on 06-12-2023 [facility] Method of Extraction Voided Normal [facility] Comment on above: Performed By: #### 1 [id number] ####[facility] [address] [place] [address] [facility] Number of Jars 1 Invalid Interpretation Code [facility] Comment on above: Performed By: #### 1 [id number] ####[facility] [id number] [place] [address] [facility] Specimen Urine Normal [facility] Comment on above: Performed By: #### 1 [id number] ####[facility] [address] [place] [address] [facility] Type of Service Technical Only Normal [facility] Comment on above: Performed By: #### 1 [id number] ####[facility] [id number] [place] [address] Lab Reportson 06-11-2023 Lab Reports [id number]:12 7 Normal [facility] XR KUB 1 VIEWon 02-23-2023 XR KUB [...] by: GEMA OTTO Date: 2023-02-23 06:58 Normal [facility] XR LSPINE 2_3 VIEWSon 2022 XR [...] GEMA OTTO Date: 2023-02-23 07:03 Normal [facility] CBC AUTO DIFFon 02-22-2023 BASO # 0.0 103/ul Normal 0.0-0.1 [facility] Comment on above: Performed By: #### C BC #### [facility] [address] [address] [address] Nikky Man Basophils/100 WBC (Bld) 0.3 % Normal 0.2-2.0 [facility] Comment on above: Performed By: #### C BC #### [facility] [address] [place] [address] Dr. Nikky Man EO # 0.2 103/ul Normal 0.0-0.7 [facility] Comment on above: Performed By: #### C BC #### [facility] [address] [place] [address] Dr. Nikky Man Eosinophils/100 WBC (Bld) 3.0 % Normal 0.9-7.0 [facility] Comment on above: Performed By: #### C BC #### [facility] [address] [place] [address] Dr. Nikky Man Erythrocyte distribution width (RBC) [Ratio] 14.1 % Normal 11.0-15.0 [facility] Comment on above: Performed By: #### C BC #### [facility] [address] [place] [address] Dr. Nikky Man Hematocrit (Bld) [Volume fraction] 40.4 % Critically low 42.0-54.0 [facility] Comment on above: Performed By: #### C BC #### [facility] [address] [place] [address] Dr. Nikky Man Hemoglobin (Bld) [Mass/Vol] 13.3 g/dL Critically low 14.0-18.0 [facility] Comment on above: Performed By: #### C BC #### [facility] [address] [place] [address] Dr. Nikky Man IG # 0.02 10e3/ul Normal 0.00-0.03 [facility] Comment on above: Performed By: #### C BC #### [facility] [address] [place] [address] Dr. Nikky Man IG % 0.3 % Normal 0.0-0.5 [facility] Comment on above: Performed By: #### C BC #### [facility] [address] [place] [address] Dr. Nikky Man LYMPH # 1.6 103/ul Normal 1.2-3.8 [facility] Comment on above: Performed By: #### C BC #### [facility] [address] [place] [address] Dr. Nikky Man Lymphocytes/100 WBC (Bld) 23.3 % Normal 20.5-60.0 [facility] Comment on above: Performed By: #### C BC #### [facility] [address] [place] [address] Dr. Nikky Man MANUAL DIFF REQ NO Normal [facility] Comment on above: Performed By: #### C BC #### [facility] [address] [place] [address] Dr. Nikky Man MCH (RBC) [Entitic mass] 26.3 pg Normal 25.9-34.0 [facility] Comment on above: Performed By: #### C BC #### [facility] [address] [place] [address] Dr. Nikky Man MCHC (RBC) [Mass/Vol] 32.9 g/dL Normal 29.9-35.2 [facility] Comment on above: Performed By: #### C BC #### [facility] [address] [place] [address] Dr. Nikky Man MCV (RBC) [Entitic vol] 80.0 fL Normal 80.0-94.0 [facility] Comment on above: Performed By: #### C BC #### [facility] [address] [place] [address] Dr. Nikky Man MONO # 0.4 103/ul Normal 0.3-0.8 [facility] Comment on above: Performed By: #### C BC #### [facility] [address] [place] [address] Dr. Nikky Man Monocytes/100 WBC (Bld) 5.8 % Normal 1.7-12.0 [facility] Comment on above: Performed By: #### C BC #### [facility] [address] [place] [address] Dr. Nikky Man NEUT # 4.7 103/ul Normal 1.4-6.5 [facility] Comment on above: Performed By: #### C BC #### [facility] [address] [place] [address] Dr. Nikky Man Neutrophils/100 WBC (Bld) 67.3 % Normal 43.0-75.0 [facility] Comment on above: Performed By: #### C BC #### [facility] [address] [place] [address] Dr. Nikky Man Platelet mean volume (Bld) [Entitic vol] 9.0 fL Critically low 9.5-13.5 [facility] Comment on above: Performed By: #### C BC #### [facility] [address] [place] [address] Dr. Nikky Man PLT 154 103/ul Normal 150-450 [facility] Comment on above: Performed By: #### C BC #### [facility] [address] [place] [address] Dr. Nikky Man RBC 5.05 106/ul Normal 4.70-6.10 [facility] Comment on above: Performed By: #### C BC #### [facility] [address] [place] [address] Dr. Nikky Man WBC 6.9 103/ul Normal 4.0-11.0 [facility] Comment on above: Performed By: #### C BC #### [facility] [address] [place] [address] Dr. Nikky Man GLYCOHEMOGLOBIN A1Con 2022 ADA RECOMMENDATION SEE BELOW Normal [facility] Comment on above: Result Comment: ADA RECOMMENDED LIMIT 4.0 - 6.0 ADA THERAPEUTIC TARGET < 7.0 ACTION SUGGESTED > 7.0 Performed By: #### A 1C #### [facility] [address] [place] [address] Dr. Nikky Man Glucose [Mass/Vol] 137 mg/dL Normal [facility] Comment on above: Performed By: #### A 1C #### [facility] [address] [place] [address] Dr. Nikky Man HbA1c (Bld) [Mass fraction] 6.4 % Critically high 4.5-6.2 [facility] Comment on above: Performed By: #### A 1C #### [facility] [address] [place] [address] Dr. Nikky Man LIPID PROFILEon 02-22-2023 CHOL-HDL RATIO NORM SEE BELOW Normal [facility] Comment on above: Result Comment: 3.3 - 4.4 LOW RISK 4.4 - 7.1 AVERAGE RISK 7.1 - 11.0 MODERATE RISK >11.0 HIGH RISK Performed By: #### C MP, LIPID #### [facility] [address] [address] [address] Nikky Man Cholesterol [Mass/Vol] 135 mg/dL Normal <=200 [facility] Comment on above: Performed By: #### C MP, LIPID #### [facility] [address] [address] [address] Nikky Man Cholesterol in HDL [Mass/Vol] 30 mg/dL Critically low 40-60 [facility] Comment on above: Performed By: #### C MP, LIPID #### [facility] [address] [address] [address] Nikky Man Cholesterol in LDL [Mass/Vol] 50.6 mg/dL Normal [facility] Comment on above: Performed By: #### C MP, LIPID #### [facility] [address] [address] [address] Nikky Man Cholesterol.total /Cholesterol in HDL [Mass ratio] 4.5 {ratio} Normal [facility] Comment on above: Performed By: #### C MP, LIPID #### [facility] [address] [address] [address] Nikky Man HDL NORMAL > or = 60 mg/dl - LO W CARDIOVASCULAR RISK <40 mg/dl - HIGH CARDIOVASCULAR RISK Normal [facility] Comment on above: Performed By: #### C MP, LIPID #### [facility] [address] [address] [address] Nikky Man LDL CALC NORMAL SEE BELOW Normal [facility] Comment on above: Result Comment: <100 mg/dl OPTIMAL 100 - 129 mg/dl NEAR OR ABOVE OPTIMAL 130 - 159 mg/dl BORDERLINE HIGH 160 - 189 mg/dl HIGH >190 mg/dl VERY HIGH Performed By: #### C MP, LIPID #### [facility] [address] [place] [address] Dr. Nikky Man Triglyceride [Mass/Vol] 272 mg/dL Critically high <=150 [facility] Comment on above: Performed By: #### C MP, LIPID #### [facility] [address] [place] [address] Dr. Nikky Man VLDL CALC 54.4 mg/dL Normal [facility] Comment on above: Performed By: #### C MP, LIPID #### [facility] [address] [place] [address] Dr. Nikky Man MICROALBUMIN, RAND URon 04-0 mALB 13.2 mg/L Normal <=30.0 [facility] Comment on above: Performed By: #### M ALBR #### [facility] [address] [place] [address] Dr. Nikky Man PROF 14(COMP METB)on 023 Albumin [Mass/Vol] 3.9 g/dL Normal 3.4-5.0 [facility] Comment on above: Performed By: #### C MP, LIPID #### [facility] [address] [place] [address] Dr. Nikky Man Albumin/Globulin [Mass ratio] 1.2 {ratio} Normal [facility] Comment on above: Performed By: #### C MP, LIPID #### [facility] [address] [place] [address] Dr. Nikky Man ALP [Catalytic activity/Vol] 87 U/L Normal 46-116 [facility] Comment on above: Performed By: #### C MP, LIPID #### [facility] [address] [place] [address] Dr. Nikky Man ALT [Catalytic activity/Vol] 29 U/L Normal 16-63 [facility] Comment on above: Performed By: #### C MP, LIPID #### [facility] [address] [place] [address] Dr. Nikky Man Anion gap [Moles/Vol] 13.2 mmol/L Normal [facility] Comment on above: Performed By: #### C MP, LIPID #### [facility] [address] [address] [address] Nikky Man AST [Catalytic activity/Vol] 19 U/L Normal 15-37 [facility] Comment on above: Performed By: #### C MP, LIPID #### [facility] [address] [address] [address] Nikky Man Bilirubin [Mass/Vol] 0.4 mg/dL Normal 0.2-1.0 [facility] Comment on above: Performed By: #### C MP, LIPID #### [facility] [address] [address] [address] Nikky Man Calcium [Mass/Vol] 9.3 mg/dL Normal 8.5-10.1 [facility] Comment on above: Performed By: #### C MP, LIPID #### [facility] [address] [place] [address] Dr. Nikky Man Chloride [Moles/Vol] 103 mmol/L Normal 98-107 [facility] Comment on above: Performed By: #### C MP, LIPID #### [facility] [address] [place] [address] Dr. Nikky Man CO2 [Moles/Vol] 28.7 mmol/L Normal 21.0-32.0 [facility] Comment on above: Performed By: #### C MP, LIPID #### [facility] [address] [place] [address] Dr. Nikky Man Creatinine [Mass/Vol] 1.54 mg/dL Critically high 0.70-1.30 [facility] Comment on above: Performed By: #### C MP, LIPID #### [facility] [address] [place] [address] Dr. Nikky Man EGFR-AF VENEZUELAN 56 mL/min/1.73m2 Critically low >=60 [facility] Comment on above: Performed By: #### C MP, LIPID #### [facility] [address] [address] [address] Nikky Man EGFR-NON AF VENEZUELAN 46 mL/min/1.73m2 Critically low >=60 [facility] Comment on above: Performed By: #### C MP, LIPID #### [facility] [address] [address] [address] Nikky Man Globulin (S) [Mass/Vol] 3.2 g/dL Normal [facility] Comment on above: Performed By: #### C MP, LIPID #### [facility] [address] [address] [address] Nikky Man Glucose [Mass/Vol] 179 mg/dL Critically high 74-106 [facility] Comment on above: Performed By: #### C MP, LIPID #### [facility] [address] [address] [address] Nikky Man Potassium [Moles/Vol] 4.9 mmol/L Normal 3.5-5.1 [facility] Comment on above: Performed By: #### C MP, LIPID #### [facility] [address] [address] [address] Nikky Man Protein [Mass/Vol] 7.1 g/dL Normal 6.4-8.2 [facility] Comment on above: Performed By: #### C MP, LIPID #### [facility] [address] [address] [address] Nikky Man Sodium [Moles/Vol] 140 mmol/L Normal 136-145 [facility] Comment on above: Performed By: #### C MP, LIPID #### [facility] [address] [address] [address] Nikky Man Urea nitrogen [Mass/Vol] 20.0 mg/dL Critically high 7.0-18.0 [facility] Comment on above: Performed By: #### C MP, LIPID #### [facility] [address] [address] [address] Nikky Man Urea nitrogen/Creatini ne [Mass ratio] 13.0 mg/mg Normal [facility] Comment on above: Performed By: #### C MP, LIPID #### [facility] [address] [address] [address] Nikky Man XR femur RT 2V*on 02-14-2023 XR femur RT 2V* [place] [address] XRay Report Signed Patient: Dat Lopez JR MR#: [id number] : 1960 Acct:[id number] Age/Sex: 62 / M ADM Date: 02/14/23 Loc: [facility] Room: Type: [facility] Attending Dr: Alfonzo Ashford II, [...] Boston Jr., D.O.02/14/2023 4:22 PM Dictation Location: [facility]--12 Transcribed By: [facility] 02/14/23 1622 Dictated By: Mitul Boston Jr, DO 02/14/23 1621 Signed By: 02/14/23 1622 Normal [facility] XR femur RT 2V* [facility] [employer] Other XR femur RT 2V* [facility] [employer] Other XR femur RT 2V* [address] [place] [address] [employer] Other XR femur RT 2V* [place] [address] [facility] [employer] Other XR femur RT 2V* XRay Report [facility] [employer] Other XR femur RT 2V* Signed [facility] [employer] Other XR femur RT 2V* Patient: Tk Lopez JR MR#: [id number] [facility] [employer] Other XR femur RT 2V* [id number] [employer] [facility] [employer] Other XR femur RT 2V* : 1960 Acct:[id number] [employer] Other XR femur RT 2V* Age/Sex: 62 / M ADM Date: 02/14/23 [employer] Other XR femur RT 2V* Loc: SOXD Room: Type : REG CLI [employer] Other XR femur RT 2V* Attending Dr: Alfonzo Ashford II, MD [employer] Other XR femur RT 2V* Copies to: Alfonzo Ashford MD [employer] Other XR femur RT 2V* Ordering Provider: Sil Ashford MD [employer] Other XR femur RT 2V* Date of Service: 02/14/23 [employer] Other XR femur RT 2V* XR/XR femur RT 2V*: Post-traumatic osteoarthritis of right knee [employer] Other XR femur RT 2V* Right femur 2 views. [employer] Other XR femur RT 2V* Reason for exam: Follow-up ORIF right femur fracture. [employer] Other XR femur RT 2V* COMPARISON: Right kn ee series 12/14/2022 [employer] Other XR femur RT 2V* FINDINGS: Hardware fixation is seen involving the mid to distal femur without evidence of hardware [employer] Other XR femur RT 2V* complication. No acu te fracture line is noted. Residual deformity seen from a prior fracture [employer] Other XR femur RT 2V* involving the mid fe mur. Visualized knee joint demonstrates degenerative change. Right hip joint [employer] Other XR femur RT 2V* demonstrates minimal degenerative change. [employer] Other XR femur RT 2V* X R/XR femur RT 2V* [employer] Other XR femur RT 2V* IMPRESSION: No evide nce of hardware complication. No acute fracture line is seen. [employer] Other XR femur RT 2V* Impression dictated by: Mitul Boston Jr., D.ODheeraj02/14/2023 4:22 PM [employer] Other XR femur RT 2V* Dictation Location: [facility]-- [employer] Other XR femur RT 2V* Transcribed By: [facility] 02/14/23 [facility] [employer] Other XR femur RT 2V* Dictated By: Mitul Boston Jr, DO 02/14/23 [facility] [employer] Other XR femur RT 2V* Signed By: [facility] [employer] Other XR femur RT 2V* 02/14/23 [facility] [employer] Other XR knee RT 4V*on 12-14-2022 XR knee RT 4V* [facility] Main [place] [address] [place] [address] XRay Report Signed Patient: Dat Lopez JR MR#: [id number] : 1960 Acct:[id number] Age/Sex: 62 / M ADM Date: 12/14/22 Loc: [facility] Room: Type: [facility] Attending Dr: Alfonzo Ashford II, MD Copies to: Alfonzo Ashford MD Ordering Provider: Alfonzo Ashford MD Date of Service: 12/14/22 XR/XR hip LT min 2V(w/wo pelvis)*: Left hip pain ([id number]) XR/XR knee RT 4V*: Acute pain of [...] 3:37 PM Dictation Location: [facility]-14 Transcribed By: [facility] 12/14/22 153 Dictated By: Mitul Boston Jr, DO 12/14/22 153 Signed By: 12/14/22 153 [facility] XR knee RT 4V* [facility] [employer] Other XR knee RT 4V* [facility] [employer] Other XR knee RT 4V* [address] [place] [address] [employer] Other XR knee RT 4V* [place] [address] No rt [employer] Other XR knee RT 4V* XRay Report [employer] Other XR knee RT 4V* Signed [employer] Other XR knee RT 4V* Patient: Tk Lopez MR#: [id number] [employer] Other XR knee RT 4V* [id number] [employer] Other XR knee RT 4V* : 1960 Acct:[id number] [employer] Other XR knee RT 4V* Age/Sex: 62 / M ADM Date: 12/14/22 [employer] Other XR knee RT 4V* Loc: SOXD Room: Type : [facility] [employer] Other XR knee RT 4V* Attending Dr: Alfonzo Ashford II, MD [employer] Other XR knee RT 4V* Copies to: Alfonzo Ashford MD [employer] Other XR knee RT 4V* Ordering Provider: Sil Ashford MD [employer] Other XR knee RT 4V* Date of Service: 12/14/22 [employer] Other XR knee RT 4V* XR/XR hip LT min 2V(w/wo pelvis)*: Left hip pain [employer] Other XR knee RT 4V* ([id number]) XR/XR knee RT 4V*: Acute pain of right knee [employer] Other XR knee RT 4V* LEFT HIP - 2 views: Right knee 4 views [employer] Other XR knee RT 4V* CLINICAL HISTORY: Le ft hip pain for months. Groin pain. [employer] Other XR knee RT 4V* COMPARISON: None [employer] Other XR knee RT 4V* FINDINGS: Left hip: No acute bony process or significant degenerative change of the hips. [employer] Other XR knee RT 4V* Right knee: Partiall y visualized hardware is seen involving the distal femur without evidence of [employer] Other XR knee RT 4V* hardware complicatio n. No acute bony process is seen. Small knee joint effusion. Mild [employer] Other XR knee RT 4V* Degenerative changes with weightbearing and patellofemoral joint space narrowing. [employer] Other XR knee RT 4V* X R/XR hip LT min 2V(w/wo pelvis)* [employer] Other XR knee RT 4V* IMPRESSION: [employer] Other XR knee RT 4V* MILD DEGENERATIVE CH ANGES OF THE RIGHT KNEE WITHOUT ACUTE BONY PROCESS.. [employer] Other XR knee RT 4V* Impression dictated by: Mitul Boston Jr., DDheerajODheeraj12/14/2022 3:37 PM [employer] Other XR knee RT 4V* Dictation Location: RADIO-PC-14 [employer] Sensors Other XR knee RT 4V* Transcribed By: PWS 12/14/22 1537 [employer] Other XR knee RT 4V* Dictated By: Mitul Boston Jr, DO 12/14/22 1534 [employer] Other XR knee RT 4V* Signed By: Switchboard Other XR knee RT 4V* 12/14/22 1537 TeamPatent Other PSA, FREE AND TOTAL RATIOon 12-06-2022 % Free PSA 28.4 % Normal [facility] Comment on above: Result Comment: The [...] men. Performed By: #### P SAFREE #### [facility] [address] [place] [address] Dr. Nikky Man Prostate specific Ag [Mass/Vol] 10.5 ng/mL Critically high 0.0-4.0 [facility] Comment on above: Result Comment: Roch e ECLIA methodology. . According to the [employer] U[employer] Association, Serum PSA should decrease and [...] disease. Performed By: #### P SAFREE #### [facility] [address] [place], [place] [address] Dr. Nikky Man PSA, Free 2.98 ng/mL Normal N/A [facility] Comment on above: Result Comment: Inderjit salmon ECLRANDOLPH methodology. Performed By: #### P SAFREE #### [facility] [address] [place], [place] [address] ABD/PELVIS WO CONon [...] by: GEMA OTTO Date: 2022-09-27 15:14 [facility] Office Visit (URFMOB ) ----- DAT LOPEZ ([id number]) 1960 M Date Time Provider Department 09/26/22 [...] patient: Yes Procedure confirmed with physician and student support advisor: Yes Sign In: History and Physical Exam [...] care C (more content not included)... Normal [facility] UA DIP, URINE (POC)on 2021 BILIRUBIN UA (POCT) Negative Negative [facility] CLARITY UA (POCT) Cloudy [facility] COLOR UA (POCT) Yellow [facility] GLUCOSE UA (POCT) Negative Negative mg/dL [facility] HEMOGLOBIN/BLOOD UA (POCT) Large Abnormal Negative [facility] KETONE UA (POCT) Negative Negative mg/dL [facility] LEUKOCYTES UA (POCT) Small Abnormal Negative [facility] NITRITE UA (POCT) Negative Negative [facility] PH UA (POCT) 5.5 4.5 - 8.0 [facility] Protein Ql (U) 30 mg/dL Abnormal Negative mg/dL [facility] SPECIFIC GRAVITY UA (POCT) 1.020 1.005 - 1.030 [facility] UROBILINOGEN UA (POCT) 0.2 E.U./dL Normal E.U./dL [facility] Basic metabolic 2000 panelon 09-12-2022 Anion gap [Moles/Vol] 9 mmol/L Normal 9-18 [facility] Comment on above: Order Comment: Speci men Type: BLOOD SPECIMENOrdering Facility: [facility] Address: [address], [place] [address] Performed By: #### 2 4321-2 ####[facility]ORYCLIA [id number] [place] [address] [place] Calcium [Mass/Vol] 8.6 mg/dL Normal 8.5-10.2 [facility] Comment on above: Order Comment: Speci men Type: BLOOD SPECIMENOrdering Facility: [facility] Address: [address] [place] [address] Performed By: #### 2 4321-2 ####[facility]ORYCLIA [id number] [place] [address] [place] Chloride [Moles/Vol] 106 mmol/L High 97-105 [facility] Comment on above: Order Comment: Speci men Type: BLOOD SPECIMENOrdering Facility: [facility] Address: [address] [place] [address] Performed By: #### 2 4321-2 ####[facility] LABORATORYIA [id number] [place] [address] [place] CO2 [Moles/Vol] 24 mmol/L Normal 22-30 [facility] ital Comment on above: Order Comment: Speci men Type: BLOOD SPECIMENOrdering Facility: [facility] Address: [address] [place] [address] Performed By: #### 2 4321-2 ####[facility] LABORATORYIA [id number] [place] [address] [place] Creatinine [Mass/Vol] 1.75 mg/dL High 0.73-1.22 [facility] Comment on above: Order Comment: Speci men Type: BLOOD SPECIMENOrdering Facility: [facility] Address: [address] [place], [place] [address] Performed By: #### 2 4321-2 ####[facility]ATORYIA [id number] [place] [address] [place] ESTIMATED GLOMERULAR FILTRATION RATE 44 mL/min/1.73m??? Low >=60 [facility] Comment on above: Order Comment: Speci men Type: BLOOD SPECIMENOrdering Facility: [facility] Address: [address] [place] [address] Result Comment: Carole mated Glomerular Filtration Rate [...] actual GFR. Performed By: #### 2 4321-2 ####[facility]ATORYCLIA [id number] [facility] [place] [address] [place] Glucose [Mass/Vol] 169 mg/dL High 74-99 [facility] Comment on above: Order Comment: Demar arrington Type: BLOOD SPECIMENOrdering Facility: [facility] Address: [address] [place] [phone] Result Comment: The [place] Diabetes Association (ADA) provides guidance for cutoff [...] Standards of Medical Care in Diabetes 2016, [place] Diabetes Association. Diabetes Care. 2016.39(Suppl 1). Performed By: #### 2 4321-2 ####[facility]ORYCLIA [id number] [facility] [place] [address] [place] Potassium [Moles/Vol] 4.7 mmol/L Normal 3.7-5.1 [facility] Comment on above: Order Comment: Demar arrington Type: BLOOD SPECIMENOrdering Facility: [facility] Address: [address] [place] [address] Performed By: #### 2 4321-2 ####[facility]ATORYCLIA [id number] [place] [address] [place] Sodium [Moles/Vol] 139 mmol/L Normal 136-144 [facility] Comment on above: Order Comment: Speci men Type: BLOOD SPECIMENOrdering Facility: [facility] Address: [address] [place] [address] Performed By: #### 2 4321-2 ####[facility]ORATORYCLIA [id number] [place] [address] [place] Urea nitrogen [Mass/Vol] 26 mg/dL High 9-24 [facility] Comment on above: Order Comment: Speci men Type: BLOOD SPECIMENOrdering Facility: [facility] Address: [address] [place] [address] Performed By: #### 2 4321-2 ####[facility] LABORATORYIA [id number] [address] [place] CBC panel Auto (Bld)on 09-12 Erythrocyte distribution width (RBC) [Ratio] 13.4 % Normal 11.5-15.0 [facility] Comment on above: Order Comment: Speci men Type: BLOOD SPECIMEN Ordering Facility: [facility] Address: [address] [place] [address] Performed By: #### 5 8410-2 #### [facility] CLIA [id number] [place] Hematocrit (Bld) [Volume fraction] 35.7 % Low 39.0-51.0 [facility] Comment on above: Order Comment: Speci men Type: BLOOD SPECIMEN Ordering Facility: [facility] Address: [address] [place] [address] Performed By: #### 5 8410-2 #### [facility] CLIA [id number] [place] [address] [place] Hemoglobin (Bld) [Mass/Vol] 11.5 g/dL Low 13.0-17.0 [facility] Comment on above: Order Comment: Speci men Type: BLOOD SPECIMEN Ordering Facility: [facility] Address: [address] [place] [address] Performed By: #### 5 8410-2 #### [facility] [place] [id number] [address] MCH (RBC) [Entitic mass] 26.2 pg Normal 26.0-34.0 [facility] Comment on above: Order Comment: Speci men Type: BLOOD SPECIMEN Ordering Facility: [facility] Address: [address] [place] [address] Performed By: #### 5 8410-2 #### [facility] [place] [id number] [address] [place] [address] [place] MCHC (RBC) [Mass/Vol] 32.2 g/dL Normal 30.5-36.0 [facility] Comment on above: Order Comment: Speci men Type: BLOOD SPECIMEN Ordering Facility: [facility] Address: [address] [place] [address] Performed By: #### 5 8410-2 #### [facility] [place] [id number] [address] [place] [address] [place] MCV (RBC) [Entitic vol] 81.3 fL Normal 80.0-100.0 [facility] Comment on above: Order Comment: Speci men Type: BLOOD SPECIMEN Ordering Facility: [facility] Address: [address] [place] [address] Performed By: #### 5 8410-2 #### [facility] [place] [id number] [place] Nucleated RBC (Bld) [#/Vol] 10*3/uL Normal <0.01 [facility] Comment on above: Order Comment: Speci men Type: BLOOD SPECIMEN Ordering Facility: [facility] Address: [address] [place] [address] Performed By: #### 5 8410-2 #### [facility] [place] [id number] [address] [place] [address] [place] Platelet mean volume (Bld) [Entitic vol] 9.3 fL Normal 9.0-12.7 [facility] Comment on above: Order Comment: Speci men Type: BLOOD SPECIMEN Ordering Facility: [facility] Address: [address] [place] [address] Performed By: #### 5 8410-2 #### [facility] CLIA [id number] [address] [place] [address] [place] Platelets (Bld) [#/Vol] 134 10*3/uL Low 150-400 [facility] Comment on above: Order Comment: Speci men Type: BLOOD SPECIMEN Ordering Facility: [facility] Address: [address] [place] [address] Performed By: #### 5 8410-2 #### [facility] CLIA [id number] [place] [address] [place] RBC (Bld) [#/Vol] 4.39 10*6/uL Normal 4.20-6.00 [facility] Comment on above: Order Comment: Speci men Type: BLOOD SPECIMEN Ordering Facility: [facility] Address: [address] [place], [place] [address] Performed By: #### 5 8410-2 #### [facility] CLIA [id number] [place] [address] [place] WBC (Bld) [#/Vol] 9.95 10*3/uL Normal 3.70-11.00 [facility] Comment on above: Order Comment: Speci men Type: BLOOD SPECIMEN Ordering Facility: [facility] Address: [address] [place], [place] [address] Performed By: #### 5 8410-2 #### [facility] CLIA [id number] [address] [place] [id number] [facility] CNDSon 09-12-2022 CNDS HNO ID: [id number] Author: Noelle Vega MD Service: Urology Author Type: Physician Type: Discharge Summary Filed: 09/13/2022 1:41 PM Note Text: The [place] [phone] or [phone]) [facility] DISCHARGE SUMMARY Patient Name: Dat Lopez [...] appointments. Valdo Mcghee MD PGY-5, Urology Pager: [phone] [facility] STAFF PHYSICIAN NOTE OF PERSONAL INVOLVEMENT [...] Staff - Urology September 13, 2022 Normal [facility] HISTORY PHYSICALon HISTORY PHYSICAL HNO ID: [id number] Author: Fani Vallejo APRN.CNP Service: Hospital Medicine [...] 12, 2022 6:02 AM ----- [facility] MEDICINE INITIAL CONSULT SERVICE DATE: 09/11/2022 SERVICE TIME: 7:50 PM Primary Care Physician: Sp Chowdary, NIGHT AND WEEKEND COVERAGE: JOELLE COVERAGE: Days: [phone], please contact via [employer] Nights: [phone] - 3rd floor: please page CC Hospitalist night cover [phone] - 4th floor: please page CC Hospitalist night cover [phone] - 5th floor: please page CC Hospitalist night cover [phone] REASON FOR CONSULT: Hyperkalemia REQUESTING PHYSICIAN: Carmella [...] H P (more content not included)... Normal [facility] NURSING PROGon 09-12-2022 NURSING PROG HNO ID: [id number] Author: Tayolr Barr, RN Service: Nursing Author Type: Registered [...] discharge orders reviewed with pt understanding. Normal [facility] POTASSIUM BLDon 09-12-2022 Potassium [Moles/Vol] 4.9 mmol/L Normal 3.7-5.1 [facility] Comment on above: Order Comment: Speci men Type: BLOOD SPECIMENOrdering Facility: [facility] Address: [address] [place] [address] Performed By: #### K 1 ####[facility] LABORATORYCLIA [id number] [facility].[address] [place] ANES POSTPROC EVALon 022 ANES POSTPROC EVAL HNO ID: [id number] Author: Melisa Rangel MD Service: Anesthesiology Author Type: Anesthesiologist Type: Anesthesia Postprocedure Evaluation Filed: 09/11/2022 1:00 PM Note Text: POST ANESTHESIA EVALUATION NOTE : 1960 Procedure Summary Date: 09/11/22 Room / Location: OR01 / AV OR Anesthesia Start: 0732 Anesthesia Stop: 4 Procedure: PERCUTANEOUS NEPHROLITHOTOMY (Left: [...] September 11, 2022 TIME: 1:00 PM CSN: [id number] [facility] ANES PRE-OPon 09-11-2022 ANES PRE-OP HNO ID: [id number] Author: Melisa Rangel MD Service: Anesthesiology Author [...] September 11, 2022 TIME: 7:15 AM CSN: [id number] [facility] BRIEF OP NOTon 09-11-2022 BRIEF OP NOT HNO ID: [id number] Author: Roman Ornelas MD Service: Urology Author Type: Fellow Type: Brief Op Note Filed: 09/11/2022 11:27 AM Note Text: UROLOGY SERVICE BRIEF OPERATIVE NOTE LOG ID: [id number] Surgery/Procedure Date: 09/11/2022 Incision/Procedure Start Time: 8:06 AM Incision Close/Procedure End Time: 11:12 AM Patient Age: [age] year old Surgeon(s)/Proceduralist( s) and Nursing Attendant(s): Surgeon(s) and Role: * Noelle Vega MD [...] x 26cm JJ left ureteral stent [address] Cultures: None Findings: [...] 11, 2022 TIME: 11:21 AM PAGER/CONTACT #: [phone] Normal [facility] Basic metabolic 2000 panelon 09-11-2022 Anion gap [Moles/Vol] 9 mmol/L Normal -18 [facility] Comment on above: Order Comment: Speci men Type: BLOOD SPECIMEN Ordering Facility: [facility] Address: [address] [place] [address] [place] [id number] Performed By: #### 5 8410-2 #### [facility] CLIA [id number] [place] [address] [place] Calcium [Mass/Vol] 8.6 mg/dL Normal 8.5-10.2 [facility] Comment on above: Order Comment: Speci men Type: BLOOD SPECIMEN Ordering Facility: [facility] Address: [address] [place] [address] Performed By: #### 5 8410-2 #### [facility] CLIA [id number] [place] [address] [place] Chloride [Moles/Vol] 105 mmol/L Normal 97-105 [facility] Comment on above: Order Comment: Speci men Type: BLOOD SPECIMEN Ordering Facility: [facility] Address: [address] [place] [address] Performed By: #### 5 8410-2 #### [facility] [place] [id number] [address] [place] [address] [place] CO2 [Moles/Vol] 22 mmol/L Normal 22-30 [facility] ital Comment on above: Order Comment: Speci men Type: BLOOD SPECIMEN Ordering Facility: [facility] Address: [address] [place] [address] Performed By: #### 5 8410-2 #### [facility] IA [id number] [address] [place] [address] [place] Creatinine [Mass/Vol] 1.67 mg/dL High 0.73-1.22 [facility] Comment on above: Order Comment: Speci men Type: BLOOD SPECIMEN Ordering Facility: [facility] Address: [address] [place] [address] Performed By: #### 5 8410-2 #### [facility] [place] [id number] [address] [place] [address] [place] ESTIMATED GLOMERULAR FILTRATION RATE 47 mL/min/1.73m??? Low >=60 [facility] Comment on above: Order Comment: Speci men Type: BLOOD SPECIMEN Ordering Facility: [facility] Address: [address] [place] [phone] Result Comment: Carole mated Glomerular Filtration Rate [...] GFR. Performed By: #### 5 8410-2 #### [facility] CLIA [id number] [place] [address] [place] Glucose [Mass/Vol] 214 mg/dL High 74-99 [facility] Comment on above: Order Comment: Demar arrington Type: BLOOD SPECIMEN Ordering Facility: [facility] Address: [address] [place] [address] Result Comment: The [place] Diabetes Association (ADA) provides guidance for cutoff [...] Standards of Medical Care in Diabetes 2016, [place] [employer] Association. Diabetes Care. 2016.39(Suppl 1). Performed By: #### 5 8410-2 #### [facility] CLIA [id number] [address] [place] [address] [place] Potassium [Moles/Vol] 5.7 mmol/L High 3.7-5.1 [facility] Comment on above: Order Comment: Demar arrington Type: BLOOD SPECIMEN Ordering Facility: [facility] Address: [address] [place] [phone] Performed By: #### 5 8410-2 #### [facility] CLIA [id number] [address] [place] [address] [place] Sodium [Moles/Vol] 136 mmol/L Normal 136-144 [facility] Comment on above: Order Comment: Speci men Type: BLOOD SPECIMEN Ordering Facility: [facility] Address: [address] [place], [place] [address] Performed By: #### 5 8410-2 #### [facility] CLIA [id number] [address] [place] [address] [place] Urea nitrogen [Mass/Vol] 20 mg/dL Normal 9-24 [facility] Comment on above: Order Comment: Speci men Type: BLOOD SPECIMEN Ordering Facility: [facility] Address: [address] [place] [address] Performed By: #### 5 8410-2 #### [facility] CLIA [id number] [address] [place] [address] [facility] [place] CALCULI ANALYSISon 2 Calculus analysis [Interp] Normal [facility] Comment on above: Order Comment: Speci men Type: CALCULUS SPECIMENOrdering Facility: [facility] Address: [address] [place] [address] Result Comment: This test was developed and its performance characteristics determined by [facility] Path[facility] [place] (-[facility]). It has not been cleared or approved by the FDA. -[facility] is regulated under CLIA as qualified to perform high-complexity testing. This test is used for clinical purposes. It should not be regarded as investigational or for research. Performed By: #### C SA ####[facility] LABCLIA [id number] [place] [address] [place] CALCULUS COLOR BROWN Normal [facility] Comment on above: Order Comment: Speci men Type: CALCULUS SPECIMENOrdering Facility: [facility] Address: [address] [place], [place] [address] Performed By: #### C SA ####[facility] LABCLIA [id number] [address] [place] CALCULUS COMPOSITION 1 70% Calcium Oxalate Monohydrate Normal [facility] Comment on above: Order Comment: Speci men Type: CALCULUS SPECIMENOrdering Facility: [facility] Address: [address] [place] [address] Performed By: #### C SA ####[facility] LABCLIA [id number] [address] [place] CALCULUS COMPOSITION 2 20% Calcium Oxalate Dihydrate Normal [facility] Comment on above: Order Comment: Speci men Type: CALCULUS SPECIMENOrdering Facility: [facility] Address: [address] [place] [address] Performed By: #### C SA ####[facility] LABCLIA [id number] [address] [place] CALCULUS COMPOSITION 3 10% Minor Components [facility] Comment on above: Order Comment: Speci men Type: CALCULUS SPECIMENOrdering Facility: [facility] Address: [address] [place] [address] Performed By: #### C SA ####[facility] LABCLIA [id number] [address] [place] CALCULUS SIZE AND WT Multiple pieces. 2.8188 GRAMS Normal [facility] Comment on above: Order Comment: Speci men Type: CALCULUS SPECIMENOrdering Facility: [facility] Address: [address] [place] [address] Performed By: #### C SA ####[facility] LABCLIA [id number] [address] [place] CALCULUS TYPE CALCULI/CALCULUS Normal [facility] Comment on above: Order Comment: Speci men Type: CALCULUS SPECIMENOrdering Facility: [facility] Address: [address] [place] [phone] Performed By: #### C SA ####[facility] LABCLIA [id number] [place] [address] [place] CBC panel Auto (Bld)on 09-11 Erythrocyte distribution width (RBC) [Ratio] 13.8 % Normal 11.5-15.0 [facility] Comment on above: Order Comment: Speci men Type: BLOOD SPECIMEN Ordering Facility: [facility] Address: [address] [place] [address] Performed By: #### 5 8410-2 #### [facility] CLIA [id number] Hematocrit (Bld) [Volume fraction] 40.1 % Normal 39.0-51.0 [facility] Comment on above: Order Comment: Speci men Type: BLOOD SPECIMEN Ordering Facility: [facility] Address: [address] [place] [address] Performed By: #### 5 8410-2 #### [facility] CLIA [id number] [place] Hemoglobin (Bld) [Mass/Vol] 12.3 g/dL Low 13.0-17.0 [facility] Comment on above: Order Comment: Speci men Type: BLOOD SPECIMEN Ordering Facility: [facility] Address: [address] [place] [address] Performed By: #### 5 8410-2 #### [facility] [place] [id number] MCH (RBC) [Entitic mass] 25.6 pg Low 26.0-34.0 [facility] Comment on above: Order Comment: Speci men Type: BLOOD SPECIMEN Ordering Facility: [facility] Address: [address] [place] [address] Performed By: #### 5 8410-2 #### [facility] CLIA [id number] [place] MCHC (RBC) [Mass/Vol] 30.7 g/dL Normal 30.5-36.0 [facility] Comment on above: Order Comment: Speci men Type: BLOOD SPECIMEN Ordering Facility: [facility] Address: [address] [place], [place] [address] Performed By: #### 5 8410-2 #### [facility] [place] [id number] [address] OF [facility] MCV (RBC) [Entitic vol] 83.5 fL Normal 80.0-100.0 [facility] Comment on above: Order Comment: Speci men Type: BLOOD SPECIMEN Ordering Facility: [facility] Address: [address] [place], [place] [address] Performed By: #### 5 8410-2 #### [facility] [place] [id number] [place] Nucleated RBC (Bld) [#/Vol] 10*3/uL Normal <0.01 [facility] [facility] Comment on above: Order Comment: Speci men Type: BLOOD SPECIMEN Ordering Facility: [facility] Address: [address] [place], [place] [address] Performed By: #### 5 8410-2 #### [facility] [place] [id number] [place] [address] [place] Platelet mean volume (Bld) [Entitic vol] 9.5 fL Normal 9.0-12.7 [facility] Comment on above: Order Comment: Speci men Type: BLOOD SPECIMEN Ordering Facility: [facility] Address: [address] [place], [place] [address] Performed By: #### 5 8410-2 #### [facility] [place] [id number] [place] Platelets (Bld) [#/Vol] 137 10*3/uL Low 150-400 [facility] Comment on above: Order Comment: Speci men Type: BLOOD SPECIMEN Ordering Facility: [facility] Address: [address] [place] [address] Performed By: #### 5 8410-2 #### [facility] [place] [id number] [address] [place] [address] [place] RBC (Bld) [#/Vol] 4.80 10*6/uL Normal 4.20-6.00 [facility] Comment on above: Order Comment: Speci men Type: BLOOD SPECIMEN Ordering Facility: [facility] Address: [address] [place] [address] Performed By: #### 5 8410-2 #### [facility] CLIA [id number] [id number] [facility] WBC (Bld) [#/Vol] 7.34 10*3/uL Normal 3.70-11.00 [facility] Comment on above: Order Comment: Speci men Type: BLOOD SPECIMEN Ordering Facility: [facility] Address: [address] [place] [address] Performed By: #### 5 8410-2 #### [facility] CLIA [id number] ECG COMPLETEon 09-11-2022 ECG COMPLETE Ventricular Rate : 9 0 BPM Atrial Rate : 90 BPM P-R Interval : 175 ms QRS Duration : 92 ms Q-T Interval : 360 ms QTC Calculation(Bazett) : 441 ms Calculated P [place] : 42 degrees Calculated R [place] : -16 degrees Calculated T [place] : 29 degrees Sinus rhythm Borderline left axis deviation Abnormal R-wave progression, early transition Otherwise Normal ECG Confirmed by Rubén CURRIE RAVISANKAR ([id number]) on 09/15/2022 2:00:08 PM NAME : DAT LOPEZ PID : [id number] : 1960 Gender : Male Race : ORD : [id number] Procedure Date : Sep 11 2022 20:12:04 [...] Referred By : , Acquired by : [id number], [facility] HISTORY PHYSICALon HISTORY PHYSICAL HNO ID: [id number] Author: Noelle Vega MD Service: Urology Author [...] Vega MD September 11, 2022 7:23 AM [facility] NURSING PROGon 09-11-2022 NURSING PROG HNO ID: [id number] Author: Oanh Mc RN Service: Nursing Author Type: Registered Nurse Type: Nursing Progress Note Filed: 09/11/2022 5:34 PM Note Text: Other: Page sent to surgical pager. K noted to be 5.8. Will await further instructions. LOPEZ 534- Potassium is 5.8 Thanks Oanh 5570 [facility] NURSING PROG HNO ID: [id number] Author: Malena Salvador RN Service: Nursing Author Type: Registered Nurse Type: Nursing Progress Note Filed: 09/11/2022 12:55 PM Note Text: Transfer Note: Patient transferred into room/unit 534 in stable condition. Actions taken: No futher actions taken at this time. Will continue to monitor and check with patient. [facility] NURSING PROG HNO ID: [id number] Author: Radha Rae, RN Service: ? Author Type: Registered Nurse Type: Nursing Progress Note Filed: 09/11/2022 12:30 PM Note Text: Report from Kaushal Norton for coverage. Pt denies pain at this time. VSS. 1210 - Pt tolerating ice chips. 1225 - Pt continues to deny pain. Report called to [address] [place] [address] OPERATIVE NOon 09-11-2022 OPERATIVE NO HNO ID: [id number] Author: Noelle Vega MD Service: Urology Author Type: Physician Type: Operative Report Filed: 09/11/2022 12:07 PM Note Text: OPERATIVE/PROCEDURE REPORT LOG ID: [id number] SURGERY/PROCEDURE DATE: 09/11/2022 INCISION/PROCEDURE START TIME: 8:06 AM INCISION CLOSE/PROCEDURE END TIME: 11:12 AM SURGEON(S)/PROCEDURALIST( S) AND DIRECTOR OF ROOMS(S): Surgeon(s) and Role: * Noelle Vega MD [...] larger stone burden in the upper pole. Sales Floor Team Member images were obtained in 2 planes using [...] working wi (more content not included)... Normal [facility] POTASSIUM Don 09-11-2022 Potassium [Moles/Vol] 5.7 mmol/L High 3.7-5.1 [facility] Comment on above: Order Comment: Demar arrington Type: BLOOD SPECIMEN Ordering Facility: [facility] Address: [address] [place] [address] Performed By: #### 5 8410-2 #### [facility] CLIA [id number] [place] [address] [place] Potassium [Moles/Vol] 5.8 mmol/L High 3.7-5.1 [facility] Comment on above: Order Comment: Demar arrington Type: BLOOD SPECIMEN Ordering Facility: [facility] Address: [address] [place] [address] Performed By: #### 5 8410-2 #### [facility] CLIA [id number] [address] [place] [address] [place] XR CHEST 1V [...] Pulmonary vasculature is unremarkable. IMPRESSION: Bibasilar atelectasis. Application Release Manager: VITOR Transcribe Date/Time: Sep 11 2022 12:00P Dictated by : CECE GALVIN MD This examination was interpreted and the report reviewed and electronically signed by: CECE GALVIN MD on Sep 11 2022 12:01PM EST [id number] Normal [facility] 25(OH)D3 SerPl-mCncon 2021 25-hydroxyvitamin D3 [Mass/Vol] 42.6 ng/mL Normal 31.0-80.0 [facility] Comment on above: Order Comment: Speci men Type: BLOOD SPECIMENOrdering Facility: [facility] Address: [address] [place], [place] [address] Result Comment: Clas sification of 25 [place] Vitamin D status: Deficiency/Insufficiency: < or = 30 ng/ml. Sufficiency/Optimal Levels: 31-80 ng/mL Toxicity: > 100 ng/mL. Test performed by chemiluminescent immunoassay. Performed By: #### 1 989-3 ####[facility] [id number] [place] [address] [place] Bacteria Ur Culton 2 Bacteria identified Cx Nom (U) CULTURE, URINE: No growth (<1,000 CFU/ml) Normal [facility] Comment on above: Performed By: #### 6 30-4 ####[facility]CLIA [id number] [place] [address] [place] CBC W Auto Differential pane l (Bld)on 08-28-2022 Basophils (Bld) [#/Vol] 0.03 10*3/uL Normal <0.11 [facility] Comment on above: Order Comment: Speci men Type: BLOOD SPECIMENOrdering Facility: [facility] Address: [address] [id number] Performed By: #### 5 7021-8 ####[facility] [id number] [facility] [place] [address] [place] Basophils/100 WBC (Bld) 0.4 % Normal [facility] Comment on above: Order Comment: Speci men Type: BLOOD SPECIMENOrdering Facility: [facility] Address: [address] [place] [address] Performed By: #### 5 7021-8 ####[facility] [id number] [place] [address] [place] Differential cell count method Nom (Bld) Auto Normal [facility] Comment on above: Order Comment: Speci men Type: BLOOD SPECIMENOrdering Facility: [facility] Address: [address] [place] [address] Performed By: #### 5 7021-8 ####[facility] [id number] [place] [address] [place] Eosinophils (Bld) [#/Vol] 0.31 10*3/uL Normal <0.46 [facility] Comment on above: Order Comment: Speci men Type: BLOOD SPECIMENOrdering Facility: [facility] Address: [address] [place] [address] Performed By: #### 5 7021-8 ####[facility] [id number] [place] [address] [place] Eosinophils/100 WBC (Bld) 4.4 % Normal [facility] Comment on above: Order Comment: Speci men Type: BLOOD SPECIMENOrdering Facility: [facility] Address: [address] [place] [address] Performed By: #### 5 7021-8 ####[facility] [id number] [address] [place] Erythrocyte distribution width (RBC) [Ratio] 13.9 % Normal 11.5-15.0 [facility] Comment on above: Order Comment: Speci men Type: BLOOD SPECIMENOrdering Facility: [facility] Address: [address] [place] [address] Performed By: #### 5 7021-8 ####[facility] [id number] [address] [place] Hematocrit (Bld) [Volume fraction] 40.0 % Normal 39.0-51.0 [facility] Comment on above: Order Comment: Speci men Type: BLOOD SPECIMENOrdering Facility: [facility] Address: [address] [place] [address] Performed By: #### 5 7021-8 ####[facility] [id number] [place] [address] [place] Hemoglobin (Bld) [Mass/Vol] 13.0 g/dL Normal 13.0-17.0 [facility] Comment on above: Order Comment: Speci men Type: BLOOD SPECIMENOrdering Facility: [facility] Address: [address] [place] [address] Performed By: #### 5 7021-8 ####[facility] [id number] [place] [address] [place] IMMATURE GRAN % 0.4 % Normal [facility] Comment on above: Order Comment: Speci men Type: BLOOD SPECIMENOrdering Facility: [facility] Address: [address] [place] [address] Performed By: #### 5 7021-8 ####[facility] [id number] [place] [address] [place] IMMATURE GRAN ABS 0.03 k/uL Normal <0.10 [facility] Comment on above: Order Comment: Speci men Type: BLOOD SPECIMENOrdering Facility: [facility] Address: [address] [place] [address] Performed By: #### 5 7021-8 ####[facility] [id number] [place] [address] [place] Lymphocytes (Bld) [#/Vol] 2.20 10*3/uL Normal 1.00-4.00 [facility] Comment on above: Order Comment: Speci men Type: BLOOD SPECIMENOrdering Facility: [facility] Address: [address] [place] [address] Performed By: #### 5 7021-8 ####[facility] [id number] [address] [place] Lymphocytes/100 WBC (Bld) 31.2 % Normal [facility] Comment on above: Order Comment: Speci men Type: BLOOD SPECIMENOrdering Facility: [facility] Address: [address] [place] [address] Performed By: #### 5 7021-8 ####[facility] [id number] [address] [place] MCH (RBC) [Entitic mass] 26.5 pg Normal 26.0-34.0 [facility] Comment on above: Order Comment: Speci men Type: BLOOD SPECIMENOrdering Facility: [facility] Address: [address] [place] [address] Performed By: #### 5 7021-8 ####[facility] [id number] [address] [place] MCHC (RBC) [Mass/Vol] 32.5 g/dL Normal 30.5-36.0 [facility] Comment on above: Order Comment: Speci men Type: BLOOD SPECIMENOrdering Facility: [facility] Address: [address] [place] [address] Performed By: #### 5 7021-8 ####[facility] [id number] [address] [place] MCV (RBC) [Entitic vol] 81.5 fL Normal 80.0-100.0 [facility] Comment on above: Order Comment: Speci men Type: BLOOD SPECIMENOrdering Facility: [facility] Address: [address] [place] [address] Performed By: #### 5 7021-8 ####[facility] [id number] [place] [address] [place] Monocytes (Bld) [#/Vol] 0.44 10*3/uL Normal <0.87 [facility] Comment on above: Order Comment: Speci men Type: BLOOD SPECIMENOrdering Facility: [facility] Address: [address] [place] [address] Performed By: #### 5 7021-8 ####[facility]ORY[facility] [id number] [place] [address] [place] Monocytes/100 WBC (Bld) 6.2 % Normal [facility] Comment on above: Order Comment: Speci men Type: BLOOD SPECIMENOrdering Facility: [facility] Address: [address] [place] [address] Performed By: #### 5 7021-8 ####[facility] [id number] [place] [address] [place] Neutrophils (Bld) [#/Vol] 4.05 10*3/uL Normal 1.45-7.50 [facility] Comment on above: Order Comment: Speci men Type: BLOOD SPECIMENOrdering Facility: [facility] Address: [address] [place] [address] Performed By: #### 5 7021-8 ####[facility] [id number] [place] [address] [place] Neutrophils/100 WBC (Bld) 57.4 % Normal [facility] Comment on above: Order Comment: Speci men Type: BLOOD SPECIMENOrdering Facility: [facility] Address: [address] [place] [address] Performed By: #### 5 7021-8 ####[facility] [id number] [place] [address] [place] Nucleated RBC (Bld) [#/Vol] 10*3/uL Normal <0.01 [facility] Comment on above: Order Comment: Speci men Type: BLOOD SPECIMENOrdering Facility: [facility] Address: [address] [place] [address] Performed By: #### 5 7021-8 ####[facility] [id number] [place] [address] [place] Nucleated RBC/100 WBC (Bld) [Ratio] 0.0 /100 WBC Normal [facility] Comment on above: Order Comment: Speci men Type: BLOOD SPECIMENOrdering Facility: [facility] Address: [address] [place] [address] Performed By: #### 5 7021-8 ####[facility] [id number] [place] [address] [place] Platelet mean volume (Bld) [Entitic vol] 9.7 fL Normal 9.0-12.7 [facility] Comment on above: Order Comment: Speci men Type: BLOOD SPECIMENOrdering Facility: [facility] Address: [address] [place] [address] Performed By: #### 5 7021-8 ####[facility] [id number] [place] [address] [place] Platelets (Bld) [#/Vol] 169 10*3/uL Normal 150-400 [facility] Comment on above: Order Comment: Speci men Type: BLOOD SPECIMENOrdering Facility: [facility] Address: [address] [place] [address] Performed By: #### 5 7021-8 ####[facility] [id number] [place] [id number] [place] RBC (Bld) [#/Vol] 4.91 10*6/uL Normal 4.20-6.00 [facility] Comment on above: Order Comment: Speci men Type: BLOOD SPECIMENOrdering Facility: [facility] Address: [address] [place] [address] Performed By: #### 5 7021-8 ####[facility] [id number] [place] [address] [place] WBC (Bld) [#/Vol] 7.06 10*3/uL Normal 3.70-11.00 [facility] Comment on above: Order Comment: Speci men Type: BLOOD SPECIMENOrdering Facility: [facility] Address: [address] [place] [address] Performed By: #### 5 7021-8 ####[facility]ORYCLIA [id number] [place] [address] [place] CT FLANK WO IVCONon 08-28-[address] FLANK WO IVCON * * *Final Report* * * DATE OF EXAM: Aug 28 2022 7:10AM [facility] 0529 - CT FLANK WO IVCON / [...] lesions. Lower thorax: Lower lungs are clear. Sales Floor Team Member (topogram) images: Unremarkable. IMPRESSION: Extensive amount of left-sided urolithiasis with left-sided double-J ureteral stent in place. Application Release Manager: PSCGurpreet Transcribe Date/Time: Aug 28 2022 10:17A Dictated by : CECE GALVIN MD This examination was interpreted and the report reviewed and electronically signed by: CECE GALVIN MD on Aug 28 2022 10:31AM EST [id number] Normal [facility] Comprehensive metabolic 2000 panelon 08-28-2022 Albumin [Mass/Vol] 4.5 g/dL Normal 3.9-4.9 [facility] Comment on above: Order Comment: Speci men Type: BLOOD SPECIMENOrdering Facility: [facility] Address: [address] [place] [address] Performed By: #### 2 4323-8 ####[facility] [id number] [place] [address] [place] ALP [Catalytic activity/Vol] 99 U/L Normal 38-113 [facility] Comment on above: Order Comment: Speci men Type: BLOOD SPECIMENOrdering Facility: [facility] Address: [address] [place] [address] Performed By: #### 2 4323-8 ####[facility] [id number] [place] [address] [place] ALT [Catalytic activity/Vol] 17 U/L Normal 10-54 [facility] Comment on above: Order Comment: Speci men Type: BLOOD SPECIMENOrdering Facility: [facility] Address: [address] [address] Performed By: #### 2 4323-8 ####[facility] [id number] [place] [address] [place] Anion gap [Moles/Vol] 9 mmol/L Normal 9-18 [facility] Comment on above: Order Comment: Speci men Type: BLOOD SPECIMENOrdering Facility: [facility] Address: [address] [place] [address] Performed By: #### 2 4323-8 ####[facility]ATORYCLIA [id number] [place] [address] [place] AST [Catalytic activity/Vol] 20 U/L Normal 14-40 [facility] Comment on above: Order Comment: Speci men Type: BLOOD SPECIMENOrdering Facility: [facility] Address: [address] [place] [address] Performed By: #### 2 4323-8 ####[facility]ORYCLIA [id number] [place] [address] [place] Bilirubin [Mass/Vol] 0.2 mg/dL Normal 0.2-1.3 [facility] Comment on above: Order Comment: Speci men Type: BLOOD SPECIMENOrdering Facility: [facility] Address: [address] [place] [address] Performed By: #### 2 4323-8 ####[facility]ORY[facility] [id number] [place] [address] [place] Calcium [Mass/Vol] 9.5 mg/dL Normal 8.5-10.2 [facility] Comment on above: Order Comment: Speci men Type: BLOOD SPECIMENOrdering Facility: [facility] Address: [address] [place] [address] Performed By: #### 2 4323-8 ####[facility]ORYCLIA [id number] [place] [address] [place] Chloride [Moles/Vol] 106 mmol/L High 97-105 [facility] Comment on above: Order Comment: Speci men Type: BLOOD SPECIMENOrdering Facility: [facility] Address: [address] [place] [address] Performed By: #### 2 4323-8 ####[facility]ATORYCLIA [id number] [place] [address] [place] CO2 [Moles/Vol] 25 mmol/L Normal 22-30 [facility] Comment on above: Order Comment: Speci men Type: BLOOD SPECIMENOrdering Facility: [facility] Address: [address] [address] Performed By: #### 2 4323-8 ####[facility]ORY[facility] [id number] [address] [place] Creatinine [Mass/Vol] 1.22 mg/dL Normal 0.73-1.22 [facility] Comment on above: Order Comment: Speci men Type: BLOOD SPECIMENOrdering Facility: [facility] Address: [address] [place] [address] Performed By: #### 2 4323-8 ####[facility] [id number] [address] ESTIMATED GLOMERULAR FILTRATION RATE 68 mL/min/1.73m??? Normal >=60 [facility] Comment on above: Order Comment: Speci men Type: BLOOD SPECIMENOrdering Facility: [facility] Address: [address] [place] [address] Result Comment: Carole mated Glomerular Filtration Rate [...] actual GFR. Performed By: #### 2 4323-8 ####[facility]ORYIA [id number] [address] [place] Glucose [Mass/Vol] 158 mg/dL High 74-99 [facility] Comment on above: Order Comment: Speci men Type: BLOOD SPECIMENOrdering Facility: [facility] Address: [address] [place] [address] Result Comment: The [place] [employer] Association (ADA) provides guidance for cutoff [...] Standards of Medical Care in Diabetes 2016, [place] [employer]. Diabetes Care. 2016.39(Suppl 1). Performed By: #### 2 4323-8 ####[facility]ATORYCLIA [id number] [place] [address] [place] Potassium [Moles/Vol] 4.7 mmol/L Normal 3.7-5.1 [facility] Comment on above: Order Comment: Speci men Type: BLOOD SPECIMENOrdering Facility: [facility] Address: [address] [place] [address] Performed By: #### 2 4323-8 ####[facility] [id number] [place] [address] [place] Protein [Mass/Vol] 6.7 g/dL Normal 6.3-8.0 [facility] Comment on above: Order Comment: Shereeni men Type: BLOOD SPECIMENOrdering Facility: [facility] Address: [address] [place] [address] Performed By: #### 2 4323-8 ####[facility]ORYCLIA [id number] [place] [address] [place] Sodium [Moles/Vol] 140 mmol/L Normal 136-144 [facility] Comment on above: Order Comment: Speci men Type: BLOOD SPECIMENOrdering Facility: [facility] Address: [address] [address] Performed By: #### 2 4323-8 ####[facility]ORYCLIA [id number] [place] [address] [place] Urea nitrogen [Mass/Vol] 23 mg/dL Normal 9-24 [facility] Comment on above: Order Comment: Speci men Type: BLOOD SPECIMENOrdering Facility: [facility] Address: [address] [place] [address] Performed By: #### 2 4323-8 ####[facility]ORATORYCLIA [id number] [facility] [address] [place] [address] [facility] HISTORY PHYSICALon HISTORY PHYSICAL HNO ID: [id number] Author: Mechelle Burnett PA-C Service: ? Author Type: Physician Nursing Attendant Type: HANDP Filed: 08/29/2022 9:43 AM Note [...] Prior to Admission medications as of 08/28/22 0906 Medication Sig Last Dose Taking metFORMIN (GLUCOPHAGE) [...] fevers. 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 No neurological symptoms or problems. Respiratory: No history of current cough or dyspnea, or pneumonia in the past 6 weeks. No history of respiratory/pulmonary symptoms or problems. Cardiovascular: +HTN, HLD, POTS- no recent episodes Negative for Recent NH, Angina, Chest Pain, CHF, DVT/PE GI: No [...] problems. [place] (more content not included)... Normal [facility] HbA1c (Bld)on 08-28-2022 Average glucose Estimated from glycated hemoglobin (Bld) [Mass/Vol] 131 mg/dL Normal [facility] Comment on above: Order Comment: Demar arrington Type: BLOOD SPECIMEN Ordering Facility: [facility] Address: [address] [address] Result Comment: eAG: (Estimated average glucose) is a calculated value from HgbA1c and is education courses sales representative of the average blood glucose level in the last 2-3 month period. Performed By: #### 5 8410-2 #### [facility] CLIA [id number] [address] [facility]. [address] OF [facility] HbA1c (Bld) [Mass fraction] 6.2 % High 4.3-5.6 [facility] Comment on above: Order Comment: Demar arrington Type: BLOOD SPECIMEN Ordering Facility: [facility] Address: [address] [address] Result Comment: Amer ican Diabetes Association guidelines indicate that patients with HgbA1c in the range 5.7-6.4% are at increased risk for development of diabetes, and intervention by lifestyle modification may be beneficial. HgbA1c greater or equal to 6.5% is considered diagnostic of diabetes. Performed By: #### 5 8410-2 #### [facility] CLIA [id number] [address] [facility] [place] [address] [place] PT panel Coag (PPP)on 2021 INR Coag (PPP) [Relative time] 1.0 {INR} Normal 0.9-1.3 [facility] Comment on above: Order Comment: Demar arrington Type: BLOOD SPECIMEN Ordering Facility: [facility] Address: [address] [place] [address] Result Comment: No min K Antagonist (VKA) Therapeutic Range: INR 2 to 3 (Target INR of 2.5) Note: For patients treated with VKA drugs, such as warfarin, the [employer] 2012 Guideline recommends [...] Chest 2012, 141:7S-47S Soo RA, et al. [facility] 2017, 70: 252-289 Performed By: #### 5 8410-2 #### [facility] CLIA [id number] [address] [place] [address] [place] PT Coag (PPP) [Time] 10.3 s Normal 9.7-13.0 [facility] Comment on above: Order Comment: Demar arrington Type: BLOOD SPECIMEN Ordering Facility: [facility] Address: [address] [place] [address] Performed By: #### 5 8410-2 #### [facility] CLIA [id number] [address] [place] [address] [place] PTH-Intact SerPl-ncon 08-19 Parathyrin.intact [Mass/Vol] 26 pg/mL Normal 15-65 [facility] Comment on above: Order Comment: Demar arrington Type: BLOOD SPECIMEN Ordering Facility: [facility] Address: [address] [place] [address] Performed By: #### 5 8410-2 #### [facility] CLIA [id number] [address] TYPE AND SCREEN,30 DAYon ABO O Normal [facility] Comment on above: Order Comment: Speci men Type: BLOOD SPECIMENOrdering Facility: [facility] Address: [address] [place] [address] Performed By: #### T SCR30 ####[facility] [id number] [address] [place] HISTORICAL AB SCR STATUS Negative [facility] Comment on above: Order Comment: Speci men Type: BLOOD SPECIMENOrdering Facility: [facility] Address: [address] [place] [address] Performed By: #### T SCR30 ####[facility] [place] [facility] [id number] [address] [place] Rh Nom (Bld) Positive Normal [facility] Comment on above: Order Comment: Speci men Type: BLOOD SPECIMENOrdering Facility: [facility] Address: [address] [place] [address] Performed By: #### T SCR30 ####[place] [place] [facility] [id number] [address] [place] Urinalysis complete panel (U )on 08-28-2022 Bilirubin Ql (U) Negative Normal Negative [facility] Comment on above: Order Comment: Speci men Type: BLOOD SPECIMEN Ordering Facility: [facility] Address: [address] [place] [address] Performed By: #### 5 8410-2 #### [facility] CLIA [id number] [address] [place] [address] [place] Clarity (Unsp spec) Cloudy Abnormal Clear [facility] Comment on above: Order Comment: Speci men Type: BLOOD SPECIMEN Ordering Facility: [facility] Address: [address] [place] [address] Performed By: #### 5 8410-2 #### [facility] [place] [id number] [address] [place] [address] [place] Color (U) Greer Abnormal Yellow [facility] Comment on above: Order Comment: Speci men Type: BLOOD SPECIMEN Ordering Facility: [facility] Address: [address] [place] [address] Performed By: #### 5 8410-2 #### [facility] IA [id number] [address] [place] [address] [place] Glucose Test strip (U) [Mass/Vol] Negative Normal Negative [facility] Comment on above: Order Comment: Speci men Type: BLOOD SPECIMEN Ordering Facility: [facility] Address: [address] [place] [address] Performed By: #### 5 8410-2 #### [facility] [place] [id number] [address] [place] [address] [place] Hemoglobin Ql (U) 3+ Abnormal Negative [facility] Comment on above: Order Comment: Speci men Type: BLOOD SPECIMEN Ordering Facility: [facility] Address: [address] [place] [address] Performed By: #### 5 8410-2 #### [facility] [place] [id number] [address] [place] [address] [place] Ketones Ql (U) Negative Normal Negative [facility] Comment on above: Order Comment: Speci men Type: BLOOD SPECIMEN Ordering Facility: [facility] Address: [address] [place] [address] Performed By: #### 5 8410-2 #### [facility] IA [id number] [address] [place] [address] [place] Leukocyte esterase Test strip Ql (U) 1+ Abnormal Negative [facility] Comment on above: Order Comment: Speci men Type: BLOOD SPECIMEN Ordering Facility: [facility] Address: [address] [address] Performed By: #### 5 8410-2 #### [facility] IA [id number] [address] [place] [address] [place] Nitrite Ql (U) Negative Normal Negative [facility] Comment on above: Order Comment: Speci men Type: BLOOD SPECIMEN Ordering Facility: [facility] Address: [address] [place] [address] Performed By: #### 5 8410-2 #### [facility] IA [id number] [address] [place] [address] [place] pH (U) 5.5 [pH] Normal 5.0-8.0 [facility] Comment on above: Order Comment: Speci men Type: BLOOD SPECIMEN Ordering Facility: [facility] Address: [address] [place] [address] Performed By: #### 5 8410-2 #### [facility] IA [id number] [address] [place] [address] [place] Protein (U) [Mass/Vol] Normal [facility] Comment on above: Order Comment: Speci men Type: BLOOD SPECIMEN Ordering Facility: [facility] Address: [address] [place] [address] Result Comment: Visi ble blood causes falsely elevated results for analyte Protein. Due to this limitation, Protein will not be reported for patients whose urine contains visible blood. Performed By: #### 5 8410-2 #### [facility] IA [id number] [address] [place] [address] [place] RBC LM.HPF (Urine sed) [#/Area] 11-25 /HPF Abnormal 0-3 /HPF [facility] Comment on above: Order Comment: Speci men Type: BLOOD SPECIMEN Ordering Facility: [facility] Address: [address] [place] [address] Performed By: #### 5 8410-2 #### [facility] IA [id number] [address] [place] [address] [place] Specific gravity (U) [Rel density] 1.014 Normal 1.005-1.030 [facility] Comment on above: Order Comment: Speci men Type: BLOOD SPECIMEN Ordering Facility: [facility] Address: [address] [place] [address] Performed By: #### 5 8410-2 #### [facility] IA [id number] Urobilinogen Ql (U) 0.2 EU/dL Normal 0.2-1.0 EU/dL [facility] Comment on above: Order Comment: Speci men Type: BLOOD SPECIMEN Ordering Facility: [facility] Address: [address] [place] [address] Performed By: #### 5 8410-2 #### [facility] IA [id number] [place] [address] WBC LM.HPF (Urine sed) [#/Area] 6-10 /HPF Abnormal 0-5 /HPF [facility] Comment on above: Order Comment: Speci men Type: BLOOD SPECIMEN Ordering Facility: [facility] Address: [address] [place] [address] Performed By: #### 5 8410-2 #### [facility] IA [id number] [address] [place] [address] aPTT PPPon 08-28-2022 aPTT Coag (PPP) [Time] 27.0 s Normal 23.0-32.4 [facility] Comment on above: Order Comment: Speci men Type: BLOOD SPECIMEN Ordering Facility: [facility] Address: [address] [place] [address] Performed By: #### 5 8410-2 #### [facility] IA [id number] [address] [place] [address] CNPAnali 08-25-2022 CNPN Telephone (URFMOB) ----- DAT LOPEZ ([id number]) 1960 M Date Time Provider Department 08/25/22 [...] Fully Assessed Reason for Visit: Patient Question [1481] Prescriptions as of 08/28/2022 - metFORMIN (GLUCOPHAGE) [...] Encounter Status:Closed by EVELYN HICKS [facility] Telephone (URTonic HealthOB) ----- DAT LOPEZ ([id number]) 1960 M Date Time Provider Department 08/24/22 NOELLE VEGA During your visit today, we recorded the following information about you: Eddie Freed [facility] 08/24/2022 3:53 PM Signed Called patient to review preop appts and instructions. Unable to leave message, no vm available. Eddie Freed Pss 08/25/2022 4:36 PM Signed Patient scheduled for surgery on 09/11 at [facility] for PERCUTANEOUS NEPHROLITHOTOMY [8117] - Kidney - Left. Patient will be [...] Encounter Status:Closed by EDDIE MORENO on 08/25/22 [facility] 08-16-2022 CNPN Telephone (UROLAV) ----- DAT LOPEZ ([id number]) 1960 M Date Time Provider Department 08/16/22 NOELEL VEGA During your visit today, we recorded [...] Visit: Other [Other] Cmt: CD from [facility] XR KUB Prescriptions as of 08/16/2022 [...] DEL CID MA on 08/16/22 [facility] 08-11-2022 CNOV Office Visit (UROLAV ) ----- DAT LOPEZ James ([id number]) 1960 M Date Time Provider Department 08/11/22 11:00 AM NOELLE VEGA During your visit today, we recorded the following information about you: Pulse Blood pressure Weight 66/minute 176/89 99.8 kg Noelle Vega MD 08/11/2022 11:28 AM Signed [facility] NEW PATIENT HISTORY AND PHYSICAL EXAM PATIENT INFO: Dat Lopez 62 year old REFERRING M.D.: Pelon Coles [address] [place] [address] PCP: No primary care provider on file. [...] Left NL, multiple stones. ESWL was performed. [facility]. Then URS x 2 and ureteral [...] black stools or change in bowel habits [place] (more content not included)... Normal [facility] U[facility] DIP, URINE (POC)on 2021 BILIRUBIN UA (POCT) Negative Negative [facility] CLARITY UA (POCT) Slightly Cloudy Cl [facility] COLOR UA (POCT) Yellow [facility] GLUCOSE UA (POCT) Negative Negative mg/dL [facility] HEMOGLOBIN/BLOOD UA (POCT) Large Abnormal Negative [facility] KETONE UA (POCT) Negative Negative mg/dL [facility] LEUKOCYTES UA (POCT) Small Abnormal Negative [facility] NITRITE UA (POCT) Negative [facility] PH UA (POCT) 5.5 4.5 - 8.0 [facility] Protein Ql (U) 30 mg/dL Abnormal Negative mg/dL [facility] SPECIFIC GRAVITY UA (POCT) 1.015 1.005 - 1.030 [facility] UROBILINOGEN UA (POCT) 0.2 E.U./dL Normal E.U./dL [facility] XR KUB 1 VIEWon 07-19-2022 XR [...] by: GEMA OTTO Date: 2022-07-19 11:50 Normal [facility] XR KUB 1 VIEWon 06-29-2022 XR [...] JI CULLEN Date: 2022-06-29 07:43 Normal [facility] CALCULI, URINARYon 2 2,8 Dihydroxyadenine Normal [facility] Comment on above: Performed By: #### C ALCULI #### [facility] [address] [address] [address] Nikky Man Ammonium Acid Urate Normal [facility] Comment on above: Performed By: #### C ALCULI #### [facility] [address] [address] [address] Nikky Man Bilirubin Ql (U) [facility] Comment on above: Performed By: #### C ALCULI #### [facility] [address] [address] [address] Nikky Man Ca Oxalate Dihydrate 10 % [facility] Comment on above: Performed By: #### C ALCULI #### [facility] [address] [address] [address] Nikky Man CaHPO4 (Brushite) [facility] Comment on above: Performed By: #### C ALCULI #### [facility] [address] [address] [address] Nikky Man Calcium Bilirubinate [facility] Comment on above: Performed By: #### C ALCULI #### [facility] [address] [address] [address] Nikky Man Calcium Carbonate [facility] Comment on above: Performed By: #### C ALCULI #### [facility] [address] [address] [address] Nikky Man Calcium Oxalate Monohydrate 90 % [facility] Comment on above: Performed By: #### C ALCULI #### [facility] [address] [address] [address] Nikky Man Calcium Palmitate [place] [facility] Comment on above: Performed By: #### C ALCULI #### [facility] [address] [place] [address] Dr. Nikky Man Calcium Phosphate [place] [facility] Comment on above: Performed By: #### C ALCULI #### [facility] [address] [address] [address] Nikky Man Calcium Stearate Normal [facility] Comment on above: Performed By: #### C ALCULI #### [facility] [address] [address] [address] Nikky Man Carbonate Apatite Normal [facility] Comment on above: Performed By: #### C ALCULI #### [facility] [address] [address] [address] Nikky Man Cellular Material Normal [facility] Comment on above: Performed By: #### C ALCULI #### [facility] [address] [address] [address] Nikky Man Cholesterol [facility] Comment on above: Performed By: #### C ALCULI #### [facility] [address] [place] [address] Dr. Nikky Man Color (U) [place] Normal [facility] Comment on above: Performed By: #### C ALCULI #### [facility] [address] [address] [address] Nikky Man Comment [facility] Comment on above: Performed By: #### C ALCULI #### [facility] [address] [address] [address] Nikky Man Comment Comment Normal [facility] Comment on above: Result Comment: Calc ulus received in liquid. Wet calculi must be dried before analysis, which delays reporting of results. Leaving calculi in liquid (such as water, saline, blood, urine) may lead to changes in composition. Performed By: #### C ALCULI #### [facility] [address] [place] [address] Dr. Nikky Man Comment: Comment Normal [facility] Comment on above: Result Comment: Kaycee valenzuela questions regarding Calculi Analysis contact [facility] at: [phone]. Performed By: #### C ALCULI #### [facility] [address] [place] [address] Dr. Nikky Man Composition Comment Normal [facility] Comment on above: Result Comment: Perc entage (Represents the % composition) Performed By: #### C ALCULI #### [facility] [address] [address] [address] Nikky Man Cystine [facility] Comment on above: Performed By: #### C ALCULI #### [facility] [address] [place] [address] Dr. Nikky Man Disclaimer: Comment Normal [facility] Comment on above: Result Comment: This test was developed and its performance characteristics determined by [facility]. It has not been cleared or approved by the Food and Drug Administration. Performed By: #### C ALCULI #### [facility] [address] [place] [address] Dr. Nikky Man Dried Blood [facility] Comment on above: Performed By: #### C ALCULI #### [facility] [address] [place] [address] Dr. Nikky Man Drug or Metabolite Normal [facility] Comment on above: Performed By: #### C ALCULI #### [facility] [address] [place] [address] Dr. Nikky Man Hydroxyapatite Normal [facility] Comment on above: Performed By: #### C ALCULI #### [facility] [address] [place] [address] Dr. Nikky Man Mg NH4 PO4 (Struvite) [facility] Comment on above: Performed By: #### C ALCULI #### [facility] [address] [place] [address] Dr. Nikky Man MgHPO4 (Newberyite) [facility] Comment on above: Performed By: #### C ALCULI #### [facility] [address] [place] [address] Dr. Nikky Man Other component(s) Normal [facility] Comment on above: Performed By: #### C ALCULI #### [facility] [address] [place] [address] Dr. Nikky Man PDF . Normal [facility] Comment on above: Performed By: #### C ALCULI #### [facility] [address] [place] [address] Dr. Nikky Man Photo Comment Normal [facility] Comment on above: Result Comment: Phot ograph will follow under a separate cover Performed By: #### C ALCULI #### [facility] [address] [address] [address] 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 Performed By: #### C ALCULI #### [facility] [address] [address] [address] Nikky Man Size 3x2 [facility] Comment on above: Result Comment: Mult iple pieces received. Dimensions of the largest piece reported. Performed By: #### C ALCULI #### [facility] [address] [address] [address] Nikky Man Sodium Acid Urate Normal [facility] Comment on above: Performed By: #### C ALCULI #### [facility] [address] [address] [address] Nikky Man Source Comment Normal [facility] Comment on above: Result Comment: Left Ureter Performed By: #### C ALCULI #### [facility] [address] [address] [address] Nikky Man Triamterene [facility] Comment on above: Performed By: #### C ALCULI #### [facility] [address] [address] [address] Nikky Man Uric Acid Normal [facility] Comment on above: Performed By: #### C ALCULI #### [facility] [address] [address] [address] Nikky Man Uric Acid Dihydrate [facility] Comment on above: Performed By: #### C ALCULI #### [facility] [address] [address] [address] Nikky Man Weight 4 mg [facility] Comment on above: Performed By: #### C ALCULI #### [facility] [address] [address] [address] Nikky Man Xanthine [facility] Comment on above: Performed By: #### C ALCULI #### [facility] [address] [address] [address] Nikky Man XR KUB 1 VIEWon [...] by: JI CULLEN Date: 2022-06-08 16:30 Normal [facility] XR KUB 1 VIEWon 06-01-2022 XR [...] by: JI CULLEN Date: 2022-06-01 21:58 Normal [facility] PROTIMEon 05-25-2022 INR Coag (PPP) [Relative time] 1.01 {INR} Normal [facility] Comment on above: Performed By: #### P TT, PT #### [facility] [address] [address] [address] Nikky Man INR GUIDELINES SEE BELOW Normal [facility] Comment on above: Result Comment: ELFEGO RED INR: 2.0 - 3.0 CONDITIONS NOT LISTED BELOW 2.5 - 3.5 FOR PROSTHETIC HEART VALVE REPLACEMENT 2.5 - 3.5 RECURRENT THROMBOSIS Performed By: #### P TT, PT #### [facility] [address] [place], [place] [address] Dr. Nikky Man PT Coag (PPP) [Time] 10.9 s Normal 9.0-11.6 [facility] Comment on above: Performed By: #### P TT, PT #### [facility] [address] [place], [place] [address] Dr[address] Nikky Man PTTon 05-25-2022 aPTT Coag (Bld) [Time] 27.9 s Normal 22.3-36.2 [facility] Comment on above: Performed By: #### P TT, PT #### [facility] [address] [place], [place] [address] Dr. Nikky Man XR KUB 1 VIEWon [...] GEMA OTTO Date: 2022-05-25 17:12 Normal [facility] XR KUB 1 VIEWon 05-17-2022 XR [...] JI CULLEN Date: 2022-05-17 07:32 Normal [facility] CALCULI, URINARYon 2 2,8 Dihydroxyadenine Normal [facility] Comment on above: Performed By: #### C BC #### [facility] [address] [address] [address] Nikky Man Ammonium Acid Urate Normal [facility] Comment on above: Performed By: #### C BC #### [facility] [address] [address] [address] Nikky Man Bilirubin Ql (U) Normal [facility] Comment on above: Performed By: #### C BC #### [facility] [address] [address] [address] Nikky Man Ca Oxalate Dihydrate 10 % [facility] Comment on above: Performed By: #### C BC #### [facility] [address] [address] [address] Nikky Man CaHPO4 (Brushite) [place] [facility] Comment on above: Performed By: #### C BC #### [facility] [address] [address] [address] Nikky Man Calcium Bilirubinate [facility] Comment on above: Performed By: #### C BC #### [facility] [address] [address] [address] Nikky Man Calcium Carbonate Normal [facility] Comment on above: Performed By: #### C BC #### [facility] [address] [address] [address] Nikky Man Calcium Oxalate Monohydrate 90 % [facility] Comment on above: Performed By: #### C BC #### [facility] [address] [address] [address] Nikky Man Calcium Palmitate [place] [facility] Comment on above: Performed By: #### C BC #### [facility] [address] [address] [address] Nikky Man Calcium Phosphate Normal [facility] Comment on above: Performed By: #### C BC #### [facility] [address] [address] [address] Nikky Man Calcium Stearate Normal [facility] Comment on above: Performed By: #### C BC #### [facility] [address] [address] [address] Nikky Man Carbonate Apatite Normal [facility] Comment on above: Performed By: #### C BC #### [facility] [address] [address] [address] Nikky Man Cellular Material [facility] Comment on above: Performed By: #### C BC #### [facility] [address] [address] [address] Nikky Man Cholesterol [facility] Comment on above: Performed By: #### C BC #### [facility] [address] [place] [address] Dr. Nikky Man Color (U) Trammell [facility] Comment on above: Performed By: #### C BC #### [facility] [address] [address] [address] Nikky Man Comment [facility] Comment on above: Performed By: #### C BC #### [facility] [address] [address] [address] Nikky Man Comment Comment [facility] Comment on above: Result Comment: Calc ulus received in liquid. Wet calculi must be dried before analysis, which delays reporting of results. Leaving calculi in liquid (such as water, saline, blood, urine) may lead to changes in composition. Performed By: #### C BC #### [facility] [address] [place] [address] Dr. Nikky Man Comment: Comment [facility] Comment on above: Result Comment: Kaycee valenzuela questions regarding Calculi Analysis contact [facility] at: [phone]. Performed By: #### C BC #### [facility] [address] [place] [address] Dr. Nikky Man Composition Comment [facility] Comment on above: Result Comment: Perc entage (Represents the % composition) Performed By: #### C BC #### [facility] [address] [address] [address] Nikky Man Cystine [facility] Comment on above: Performed By: #### C BC #### [facility] [address] [address] [address] Nikky Man Disclaimer: Comment Normal [facility] Comment on above: Result Comment: This test was developed and its performance characteristics determined by [facility]. It has not been cleared or approved by the Food and Drug Administration. Performed By: #### C BC #### [facility] [address] [place] [address] Dr. Nikky Man Dried Blood [facility] Comment on above: Performed By: #### C BC #### [facility] [address] [place] [address] Dr. Nikky Man Drug or Metabolite [facility] Comment on above: Performed By: #### C BC #### [facility] [address] [place] [address] Dr. Nikky Man Hydroxyapatite [facility] Comment on above: Performed By: #### C BC #### [facility] [address] [place] [address] Dr. Nikky Man Mg NH4 PO4 (Struvite) [facility] Comment on above: Performed By: #### C BC #### [facility] [address] [place] [address] Dr. Nikky Man MgHPO4 (Newberyite) [facility] Comment on above: Performed By: #### C BC #### [facility] [address] [place] [address] Dr. Nikky Man Other component(s) [facility] Comment on above: Performed By: #### C BC #### [facility] [address] [place] [address] Dr. Nikky Man PDF . Normal [facility] Comment on above: Performed By: #### C BC #### [facility] [address] [place] [address] Dr. Nikky Man Photo Comment [facility] Comment on above: Result Comment: Phot ograph will follow under a separate cover Performed By: #### C BC #### [facility] [address] [address] [address] 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 Performed By: #### C BC #### [facility] [address] [address] [address] Nikky Man Size 4x4 Normal [facility] Comment on above: Result Comment: Mult iple pieces received. Dimensions of the largest piece reported. Performed By: #### C BC #### [facility] [address] [address] [address] Nikky Man Sodium Acid Urate [facility] Comment on above: Performed By: #### C BC #### [facility] [address] [address] [address] Nikky Man Source Comment [facility] Comment on above: Result Comment: Left Ureter Performed By: #### C BC #### [facility] [address] [address] [address] Nikky Man Triamterene [facility] Comment on above: Performed By: #### C BC #### [facility] [address] [address] [address] Nikky Man Uric Acid [facility] Comment on above: Performed By: #### C BC #### [facility] [address] [address] [address] Nikky Man Uric Acid Dihydrate [facility] Comment on above: Performed By: #### C BC #### [facility] [address] [address] [address] Nikky Man Weight 156 mg [facility] Comment on above: Performed By: #### C BC #### [facility] [address] [address] [address] Nikky Man Xanthine [facility] Comment on above: Performed By: #### C BC #### [facility] [address] [address] [address] Nikky Man POINT OF CARE GLUCOSEon - Glucose [Mass/Vol] 131 mg/dL Critically high 74-106 [facility] Comment on above: Performed By: #### C BC #### [facility] [address] [place] [address] Dr. Nikky Man CBC AUTO DIFFon 05-04-2022 BASO # 0.0 103/ul Normal 0.0-0.1 [facility] Comment on above: Performed By: #### C BC #### [facility] [address] [place] [address] Dr. Nikky Man Basophils/100 WBC (Bld) 0.2 % Normal 0.2-2.0 [facility] Comment on above: Performed By: #### C BC #### [facility] [address] [place] [address] Dr. Nikky Man EO # 0.4 103/ul Normal 0.0-0.7 [facility] Comment on above: Performed By: #### C BC #### [facility] [address] [place] [address] Dr. Nikky Man Eosinophils/100 WBC (Bld) 4.8 % Normal 0.9-7.0 [facility] Comment on above: Performed By: #### C BC #### [facility] [address] [place] [address] Dr. Nikky Man Erythrocyte distribution width (RBC) [Ratio] 13.4 % Normal 11.0-15.0 [facility] Comment on above: Performed By: #### C BC #### [facility] [address] [place] [address] Dr. Nikky Man Hematocrit (Bld) [Volume fraction] 36.9 % Critically low 42.0-54.0 [facility] Comment on above: Performed By: #### C BC #### [facility] [address] [place] [address] Dr. Nikky Man Hemoglobin (Bld) [Mass/Vol] 12.2 g/dL Critically low 14.0-18.0 [facility] Comment on above: Performed By: #### C BC #### [facility] [address] [address] [address] Nikky Man IG # 0.05 10e3/ul Critically high 0.00-0.03 [facility] Comment on above: Performed By: #### C BC #### [facility] [address] [address] [address] Nikky Man IG % 0.6 % Critically high 0.0-0.5 [facility] Comment on above: Performed By: #### C BC #### [facility] [address] [address] [address] Nikky Man LYMPH # 1.8 103/ul Normal 1.2-3.8 [facility] Comment on above: Performed By: #### C BC #### [facility] [address] [place] [address] Dr. Nikky Man Lymphocytes/100 WBC (Bld) 20.3 % Critically low 20.5-60.0 [facility] Comment on above: Performed By: #### C BC #### [facility] [address] [place] [address] Dr. Nikky Man MANUAL DIFF REQ NO Normal [facility] Comment on above: Performed By: #### C BC #### [facility] [address] [place] [address] Dr. Nikky Man MCH (RBC) [Entitic mass] 26.6 pg Normal 25.9-34.0 [facility] Comment on above: Performed By: #### C BC #### [facility] [address] [place] [address] Dr. Nikky Man MCHC (RBC) [Mass/Vol] 33.1 g/dL Normal 29.9-35.2 [facility] Comment on above: Performed By: #### C BC #### [facility] [address] [place] [address] Dr. Nikky Man MCV (RBC) [Entitic vol] 80.6 fL Normal 80.0-94.0 [facility] Comment on above: Performed By: #### C BC #### [facility] [address] [place] [address] Dr. Nikky Man MONO # 0.5 103/ul Normal 0.3-0.8 [facility] Comment on above: Performed By: #### C BC #### [facility] [address] [place] [address] Dr. Nikky Man Monocytes/100 WBC (Bld) 5.2 % Normal 1.7-12.0 [facility] Comment on above: Performed By: #### C BC #### [facility] [address] [place] [address] Dr. Nikky Man NEUT # 6.1 103/ul Normal 1.4-6.5 [facility] Comment on above: Performed By: #### C BC #### [facility] [address] [place] [address] Dr. Nikky Man Neutrophils/100 WBC (Bld) 68.9 % Normal 43.0-75.0 [facility] Comment on above: Performed By: #### C BC #### [facility] [address] [place] [address] Dr. Nikky Man Platelet mean volume (Bld) [Entitic vol] 8.9 fL Critically low 9.5-13.5 [facility] Comment on above: Performed By: #### C BC #### [facility] [address] [place] [address] Dr. Nikky Man PLT 201 103/ul Normal 150-450 [facility] Comment on above: Performed By: #### C BC #### [facility] [address] [place] [address] Dr. Nikky Man RBC 4.58 106/ul Critically low 4.70-6.10 [facility] Comment on above: Performed By: #### C BC #### [facility] [address] [place] [address] Dr. Nikky Man WBC 8.8 103/ul Normal 4.0-11.0 [facility] Comment on above: Performed By: #### C BC #### [facility] [address] [place] [address] Dr. Nikky Man PROF CHEM 8 (BAS METB)on Anion gap [Moles/Vol] 17.6 mmol/L Normal [facility] Comment on above: Performed By: #### C BC #### [facility] [address] [place] [address] Dr. Nikky Man Calcium [Mass/Vol] 9.0 mg/dL Normal 8.5-10.1 [facility] Comment on above: Performed By: #### C BC #### [facility] [address] [address] [address] Nikky Man Chloride [Moles/Vol] 106 mmol/L Normal 98-107 [facility] Comment on above: Performed By: #### C BC #### [facility] [address] [place] [address] Dr. Nikky Man CO2 [Moles/Vol] 22.5 mmol/L Normal 21.0-32.0 [facility] Comment on above: Performed By: #### C BC #### [facility] [address] [place] [address] Dr. Nikky Man Creatinine [Mass/Vol] 2.34 mg/dL Critically high 0.70-1.30 [facility] Comment on above: Performed By: #### C BC #### [facility] [address] [place] [address] Dr. Nikky Man EGFR-AF VENEZUELAN 35 mL/min/1.73m2 Critically low >=60 [facility] Comment on above: Performed By: #### C BC #### [facility] [address] [place] [address] Dr. Nikky Man EGFR-NON AF VENEZUELAN 29 mL/min/1.73m2 Critically low >=60 [facility] Comment on above: Performed By: #### C BC #### [facility] [address] [place] [address] Dr. Nikky Man Glucose [Mass/Vol] 123 mg/dL Critically high 74-106 [facility] Comment on above: Performed By: #### C BC #### [facility] [address] [place] [address] Dr. Nikky Man Potassium [Moles/Vol] 5.1 mmol/L Normal 3.5-5.1 [facility] Comment on above: Performed By: #### C BC #### [facility] [address] [address] [address] Nikky Man Sodium [Moles/Vol] 141 mmol/L Normal 136-145 [facility] Comment on above: Performed By: #### C BC #### [facility] [address] [address] [address] Nikky Man Urea nitrogen [Mass/Vol] 27.0 mg/dL Critically high 7.0-18.0 [facility] Comment on above: Performed By: #### C BC #### [facility] [address] [place] [address] Dr. Nikky Man Urea nitrogen/Creatini ne [Mass ratio] 11.5 mg/mg Normal [facility] Comment on above: Performed By: #### C BC #### [facility] [address] [place] [address] Dr. Nikky Man XR KUB 1 VIEWon [...] GEMA OTTO Date: 2022-05-01 17:19 Normal [facility] URINE PROFILEon 2 Bilirubin Ql (U) Negative Normal NEGATIVE [facility] Comment on above: Performed By: #### C BC #### [facility] [address] [place], [place] [id number] Dr. Nikky Man Clarity (U) CLEAR Normal CLEAR [facility] Comment on above: Performed By: #### C BC #### [facility] [address] [place] [address] Dr. Nikky Man Color (U) LT. YELLOW Normal YELLOW [facility] Comment on above: Performed By: #### C BC #### [facility] [address] [place] [address] Dr. Nikky WEN A micrscopic examina tion will be performed if indicated. Normal [facility] Comment on above: Performed By: #### C BC #### [facility] [address] [place] [address] Dr. Nikky Man Glucose Ql (U) Negative Normal NEGATIVE [facility] Comment on above: Performed By: #### C BC #### [facility] [address] [place] [address] Dr. Nikky Man Hemoglobin Ql (U) LARGE Abnormal NEGATIVE [facility] Comment on above: Performed By: #### C BC #### [facility] [address] [place] [address] Dr. Nikky Man Ketones Ql (U) Negative Normal NEGATIVE [facility] Comment on above: Performed By: #### C BC #### [facility] [address] [place] [address] Dr. Nikky Man LEUKOCYTES Negative Normal NEGATIVE [facility] Comment on above: Performed By: #### C BC #### [facility] [address] [place] [address] Dr. Nikky Man Nitrite Ql (U) Negative Normal NEGATIVE [facility] Comment on above: Performed By: #### C BC #### [facility] [address] [place] [address] Dr. Nikky Man pH (U) 6.0 [pH] Normal 5-9 [facility] Comment on above: Performed By: #### C BC #### [facility] [address] [place] [address] Dr. Nikky Man SPEC GRAVITY 1.015 Normal 1.005-<=1.025 [facility] Comment on above: Performed By: #### C BC #### [facility] [address] [place] [address] Dr. Nikky Man UA PROTEIN TRACE Normal NEGATIVE/ TRACE [facility] Comment on above: Performed By: #### C BC #### [facility] [address] [place] [address] Dr. Nikky Man UR MICRO IND INDICATED Normal [facility] Comment on above: Performed By: #### C BC #### [facility] [address] [place] [address] Dr. Nikky Man Urobilinogen Qn (U) 0.2 {Chandni'U}/dL Normal 0.2 - 1.0 [facility] Comment on above: Performed By: #### C BC #### [facility] [address] [place] [address] Dr. Nikky Man URINE MICROSCOPIC ONLYon BACTERIA NONE SEEN Normal NONE SEEN [facility] Comment on above: Performed By: #### C BC #### [facility] [address] [place] [address] Dr. Nikky Man Bacteria identified Cx Nom (U) NOT INDICATED Normal [facility] Comment on above: Performed By: #### C BC #### [facility] [address] [place] [address] Dr. Nikky Man CAST NONE SEEN Normal NONE SEEN [facility] Comment on above: Performed By: #### C BC #### [facility] [address] [place] [address] Dr. Nikky Man Crystals LM Nom (Urine sed) NONE SEEN Normal NONE SEEN [facility] Comment on above: Performed By: #### C BC #### [facility] [address] [place] [address] Dr. Nikky Man Epithelial cells LM Ql (Urine sed) RARE Normal NONE SEEN /RARE [facility] Comment on above: Performed By: #### C BC #### [facility] [address] [place] [address] Dr. Nikky Man MUCOUS NONE SEEN Normal NONE SEEN [facility] Comment on above: Performed By: #### C BC #### [facility] [address] [place] [address] Dr. Nikky Man RBC 20-50 Abnormal 0-2 [facility] Comment on above: Performed By: #### C BC #### [facility] [address] [place], [place] [address] Dr. Nikky Man WBC 0-2 Abnormal NONE SEEN [facility] Comment on above: Performed By: #### C BC #### [facility] [address] [place], [place] [address] Dr. Nikky Man [facility] Miscellaneous test 1on 06-05-2019 Miscellaneous Test 1 SEE NOTE Normal [facility] Comment on above: Result Comment: Test name Result Flag Units RefIntvl ---- PCA3 by TMA - Score 5 0-24 PCA3 by TMA - Result Negative A negative result is associated with decreased likelihood of a positive biopsy for prostate cancer. INTERPRETIVE DATA: PCA3 by TMA The [employer] PCA3 assay is an in vitro nucleic acid amplification test utilizing target capture, volunteer patient representative-mediated amplification, and a hybridization-protection assay for amplicon [...] history and other relevant data. Performed by [employer], [address] [place] [id number] [email or web address] MD - Lab. Director Performed By: #### [id number] #### [facility] [address] [place] [address] [facility] Miscellaneous test 1on 05-29-2019 [employer] [id number] Normal [facility] Comment on above: Result Comment: Ca ected result; previously reported as [id number] on 05/28/2019 at 19:45 by V/AUT Performed By: #### [id number] #### [facility] [address] [place] [address] Urinalysis, reflex to micros copicon 11-28-2018 Bilirubin Ql (U) Negative Normal Negative [facility] Clarity (U) Clear Normal Clear [facility] Color (U) Yellow Normal Straw/Snyder [facility] Glucose Ql (U) >=1000 Abnormal Negative [facility] Hemoglobin Ql (U) Negative Normal Negative [facility] Ketones Ql (U) Negative Normal Negative [facility] Leukocyte esterase Test strip Ql (U) Negative Normal Negative [facility] Nitrite Ql (U) Negative Normal Negative [facility] pH (U) 5.5 [pH] Normal 5.0-9.0 [facility] Protein Ql (U) Negative Normal Negative [facility] Specific gravity (U) [Rel density] 1.031 Normal 1.005-1.03 [facility] Urobilinogen Qn (U) 0.2 {Chandni'U}/dL Normal < 2.0 [facility] Vital Signs Date Time Vital Sign Value Performing Clinician Facility 05-27-2024 11:30-0400 Body height 177.8 cm [facility] 05-27-2024 11:30-0400 Body mass index (BMI) [Ratio] 32 kg/m2 [facility] 05-27-2024 11:30-040 Body weight 101.26 kg [facility] 05-27-2024 11:30-0400 Diastolic blood pressure 90 mm[Hg] [facility] 05-27-2024 11:30-0400 Heart rate 65 /min [facility] 05-27-2024 11:30-0400 Respiratory rate 12 /min [facility] 05-27-2024 11:30-0400 Systolic blood pressure 159 mm[Hg] [facility] 05-05-2024 11:07-0400 Blood Pressure Location Pelon COLES [facility] 05-05-2024 11:07-0400 Body temperature 98.6 [degF] Pelonneela COLES [facility] 05-05-2024 11:07-0400 Diastolic blood pressure 86 mm[Hg] Pelon COLES [facility] 05-05-2024 11:07-0400 Heart rate 85 /min Pelonneela COLES [facility] 05-05-2024 11:07-0400 Respiratory rate 16 /min Pelonneela COLES [facility] 05-05-2024 11:07-0400 Systolic blood pressure 139 mm[Hg] Pelonneela COLES [facility] 03-25-2024 09:00-0400 Body height 177.8 cm [facility] 03-25-2024 09:00-0400 Body mass index (BMI) [Ratio] 34.1 kg/m2 [facility] 03-25-2024 09:00-0400 Body weight 107.95 kg [facility] 03-25-2024 09:00-0400 Diastolic blood pressure 84 mm[Hg] [facility] 03-25-2024 09:00-0400 Heart rate 81 /min [facility] 03-25-2024 09:00-0400 Respiratory rate 12 /min [facility] 03-25-2024 09:00-0400 Systolic blood pressure 158 mm[Hg] [facility] 01-22-2024 11:26-0500 Body height 177.8 cm [facility] 01-22-2024 11:26-0500 Body mass index (BMI) [Ratio] 34.8 kg/m2 [facility] 01-22-2024 11:26-0500 Body weight 110.22 kg [facility] 01-22-2024 11:26-0500 Diastolic blood pressure 77 mm[Hg] [facility] 01-22-2024 11:26-0500 Heart rate 78 /min [facility] 01-22-2024 11:26-0500 Respiratory rate 16 /min [facility] 01-22-2024 11:26-0500 Systolic blood pressure 160 mm[Hg] [facility] 01-10-2024 08:43-0500 Body height 177.8 cm [facility] 01-10-2024 08:43-0500 Body mass index (BMI) [Ratio] 34.2 kg/m2 [facility] 01-10-2024 08:43-0500 Body weight 108.12 kg [facility] 01-10-2024 08:43-0500 Diastolic blood pressure 76 mm[Hg] [facility] 01-10-2024 08:43-0500 Heart rate 75 /min [facility] 01-10-2024 08:43-0500 Respiratory rate 12 /min [facility] 01-10-2024 08:43-0500 Systolic blood pressure 173 mm[Hg] [facility] 12-17-2023 11:31-0500 Blood Pressure Location Pelon COLES [facility] 12-17-2023 11:31-0500 Diastolic blood pressure 100 mm[Hg] Pelon COLES [facility] 12-17-2023 11:31-0500 Heart rate 70 /min Pelon COLES [facility] 12-17-2023 11:31-0500 Respiratory rate 16 /min Pelon COLES [facility] 12-17-2023 11:31-0500 Systolic blood pressure 151 mm[Hg] Pelon COLES [facility] 10-29-2023 14:25-0500 Blood Pressure Location Pelon COLES [facility] 10-29-2023 14:25-0500 Diastolic blood pressure 88 mm[Hg] Pelonneela COLES [facility] 10-29-2023 14:25-0500 Heart rate 87 /min Pelon COLES [facility] 10-29-2023 14:25-0500 Respiratory rate 16 /min Pelon COLES [facility] 10-29-2023 14:25-0500 Systolic blood pressure 138 mm[Hg] Pelon COLES [facility] 10-23-2023 11:30-0500 Body height 177.8 cm Sp Ball Other [facility] 10-23-2023 11:30-0500 Body mass index (BMI) [Ratio] 32.77 kg/m2 Sp Ball Other [employer] Other 10-23-2023 11:30-0500 Body weight 103.6 kg Sp Ball Other [facility] 10-23-2023 11:30-0500 Diastolic blood pressure 89 mm[Hg] Sp Ball Other [facility] 10-23-2023 11:30-0500 Systolic blood pressure 162 mm[Hg] Sp Ball Other [facility] 10-05-2023 14:15-0500 Blood Pressure Location Duran CRANDALL [facility] 10-05-2023 14:15-0500 Diastolic blood pressure 82 mm[Hg] Duran CRANDALL [facility] [place] 10-05-2023 14:15-0500 Heart rate 80 /min Duran MANL [facility] 10-05-2023 14:15-0500 Respiratory rate 16 /min Duran MANL [facility] [place] 10-05-2023 14:15-0500 Systolic blood pressure 144 mm[Hg] Duran MANL [facility] 04-24-2023 11:00-0400 Body height 177.8 cm Sp Ball Other [employer] Other 04-24-2023 11:00-0400 Body mass index (BMI) [Ratio] 34.38 kg/m2 Sp Ball Other [employer] Other 04-24-2023 11:00-0400 Body weight 108.68 kg Sp Ball Other [employer] Other 04-24-2023 11:00-0400 Diastolic blood pressure 80 mm[Hg] Sp Ball Other [employer] Other 04-24-2023 11:00-0400 Respiratory rate 12 /min Sp Ball Other [employer] Other 04-24-2023 11:00-0400 Systolic blood pressure 138 mm[Hg] Sp Ball Other [employer] Other 02-14-2023 15:15-0400 Body height 177.8 cm Alfonzo Ashford II Other [employer] Other 02-14-2023 15:15-0400 Body mass index (BMI) [Ratio] 35.15 kg/m2 Alfonzo Toussaintle II Other [employer] [employer] Other 02-14-2023 15:15-0400 Body weight 111.13 kg Alfonzo Toussaintle II Other [employer] Other 01-22-2023 11:00-0500 Body height 177.8 cm Sp Ball Other [employer] Other 01-22-2023 11:00-0500 Body mass index (BMI) [Ratio] 35.44 kg/m2 Sp Ball Other [employer] Other 01-22-2023 11:00-0500 Body weight 112.04 kg Sp Ball Other [employer] Other 01-22-2023 11:00-0500 Diastolic blood pressure 84 mm[Hg] Sp Ball Other [employer] Other 01-22-2023 11:00-0500 Respiratory rate 12 /min Sp Ball Other [employer] Other 01-22-2023 11:00-0500 Systolic blood pressure 136 mm[Hg] Sp Ball Other [employer] Other 12-18-2022 15:12-0500 Blood Pressure Location Pelon COLES [facility] 12-18-2022 15:12-0500 Diastolic blood pressure 72 mm[Hg] Pelon COLES [facility] 12-18-2022 15:12-0500 Heart rate 68 /min Pelon COLES [facility] 12-18-2022 15:12-0500 Respiratory rate 16 /min Pelon COLES [facility] 12-18-2022 15:12-0500 Systolic blood pressure 127 mm[Hg] Pelon COLES [facility] 12-14-2022 15:30-0500 Body height 177.8 cm Alfonzo Becerraisle II Other [employer] Other 12-14-2022 15:30-0500 Body mass index (BMI) [Ratio] 34.29 kg/m2 Alfonzo Toussaintle II Other [employer] Other 12-14-2022 15:30-0500 Body weight 108.41 kg Alfonzo Becerraisle II Other [employer] Other 08-28-2022 09:20-0400 Diastolic blood pressure 84 mm[Hg] Pacc 2 Work Phone: [facility] 08-28-2022 09:20-0400 Heart rate 72 /min Pacc 2 Work Phone: [facility] 08-28-2022 09:20-0400 Systolic blood pressure 152 mm[Hg] Pacc 2 Work Phone: [facility] 08-28-2022 09:16-0400 Body height 175.3 cm Pacc 2 Work Phone: [facility] 08-28-2022 09:16-0400 Body temperature 98.49 [degF] Pacc 2 Work Phone: [facility] 08-28-2022 09:16-0400 Body weight 105.23 kg Pacc 2 Work Phone: [facility] 08-28-2022 09:16-0400 Respiratory rate 16 /min Pacc 2 Work Phone: [facility] 08-28-2022 09:16-0400 SaO2% (BldA) [Mass fraction] 98 % Pac 2 Work Phone: [facility] 08-11-2022 10:49-0400 Body weight 99.79 kg Noelle Vega MD Work Phone: [facility] 08-11-2022 10:49-0400 Diastolic blood pressure 89 mm[Hg] Noelle Vega MD Work Phone: [facility] 08-11-2022 10:49-0400 Heart rate 66 /min Noelle Vega MD Work Phone: [facility] 08-11-2022 10:49-0400 Systolic blood pressure 176 mm[Hg] Noelle Vega MD Work Phone: [facility] 03-13-2022 15:03-0400 Blood Pressure Location Pelon COLES [facility] 03-13-2022 15:03-0400 Diastolic blood pressure 87 mm[Hg] Pelon COLES [facility] 03-13-2022 15:03-0400 Heart rate 78 /min Pelon COLES [facility] 03-13-2022 15:03-0400 Systolic blood pressure 164 mm[Hg] Pelon COLES [facility] Encounters Encounter Date Encounter Type Care Provider Facility Start: 12-19-2024 ambulatory Pelon Escalonai ty:[facility] Start: 07-07-2024 ambulatory Pelon Escalonai ty:[facility] [place] Start: 06-26-2024 ambulatory Pelon Escalonai ty:[id number] Start: 06-24-2024 ambulatory Pelon R COLES Facili ty:[facility] Start: 05-27-2024 End: 05-27-2024 ambulatory [facility] Work Phone: Start: 05-27-2024 End: 05-27-2024 Patient encounter procedure [facility] Work Phone: Start: 05-23-2024 Non-patient / Non-visit [facility] Work Phone: Start: 05-20-2024 End: 05-20-2024 ambulatory Pelon Sil COLES Facility:[facility] [place] Start: 05-20-2024 End: 05-20-2024 Patient encounter procedure Pelon R SANKET [facility] Start: 05-12-2024 Non-patient / Non-visit [facility] Work Phone: Start: 05-05-2024 End: 05-05-2024 Lab Drop off Pelonneela COLES [facility] Start: 05-05-2024 End: 05-05-2024 ambulatory Pelonneela COLES Facility:[id number] Start: 05-05-2024 End: 05-05-2024 Patient encounter procedure Pelon R COLES [facility] Start: 03-25-2024 End: 03-25-2024 ambulatory [facility] Work Phone: Start: 03-25-2024 End: 03-25-2024 Patient encounter procedure [facility] Work Phone: Start: 02-22-2024 Non-patient / Non-visit [facility] Work Phone: Start: 02-01-2024 Non-patient / Non-visit [facility] Work Phone: Start: 01-26-2024 Non-patient / Non-visit [facility] Work Phone: Start: 01-22-2024 End: 01-22-2024 Encounter for general adult medical examination without abnormal findings [facility] Start: 01-22-2024 End: 01-22-2024 Patient encounter procedure [facility] Work Phone: Start: 01-10-2024 End: 01-10-2024 ambulatory [facility] Work Phone: Start: 01-10-2024 End: 01-10-2024 Patient encounter procedure [facility] Work Phone: Start: 12-19-2023 ambulatory Pelon Escalonai ty:RUCHI Zavaleta Start: 12-17-2023 End: 12-17-2023 ambulatory Pelon COLES Facility:RUCH[facility] Start: 12-17-2023 End: 12-17-2023 Patient encounter procedure Pelon COLES [facility] Start: 12-14-2023 ambulatory Pelon Escalonai ty:RUCHI [facility] Start: 11-28-2023 End: 11-28-2023 ambulatory Pelon COLES [facility] Start: 11-28-2023 End: 11-28-2023 Lab Drop off Pelon COLES [facility] Start: 11-27-2023 End: 11-27-2023 Patient encounter procedure [facility] COLES [facility] Start: 11-27-2023 End: 11-27-2023 ambulatory Pelon COLES Facility:[facility] Start: 11-23-2023 End: 11-23-2023 ambulatory Sp Chowdary Other [employer] Other Start: 11-23-2023 Telephone encounter Sp Chowdary ALEX [facility] Start: 11-14-2023 End: 11-14-2023 ambulatory Duran R NILL Facility: [facility] Start: 11-14-2023 End: 11-14-2023 Patient encounter procedure Duran R NILL General Surgery Nill/Said [facility] Start: 11-05-2023 [facility] Start: 11-01-2023 End: 11-01-2023 ambulatory Sp Chowdary Other [employer] Other Start: 11-01-2023 Telephone encounter Sp Chowdary ALEX [facility] Start: 10-31-2023 End: 10-31-2023 ambulatory Duran R NILL Facility:CD:[id number] Start: 10-29-2023 End: 10-29-2023 ambulatory Pelon COLES Facility:[facility] Start: 10-29-2023 End: 10-29-2023 Patient encounter procedure [facility] Start: 10-23-2023 End: 10-23-2023 ambulatory Sp Chowdary Other [employer] Other Start: 10-23-2023 Office outpatient vi sit 25 minutes Sp Chowdary [facility] Start: 10-23-2023 End: 10-23-2023 Patient encounter procedure [facility] Work Phone: Start: 10-05-2023 End: 10-05-2023 ambulatory Duran R NILL Facility: [place] Start: 10-05-2023 End: 10-05-2023 Patient encounter procedure Duran R NILL General Surgery Nill/S[facility] Start: 09-11-2023 End: 09-11-2023 ambulatory Pelonneela Coles Facility:[facility] Start: 09-11-2023 End: 09-11-2023 ambulatory DO Sp Chowdary Work Phone: [facility] Work Phone: Start: 09-11-2023 End: 09-11-2023 Patient encounter procedure DO Sp Chowdary Work Phone: [facility] [place] Work Phone: Start: 09-02-2023 End: 09-02-2023 ambulatory Sp Chowdary Other [employer] Other Start: 09-02-2023 Telephone encounter Sp Chowdary [facility] Start: 08-08-2023 End: 08-08-2023 ambulatory Sp Chowdary Other [employer] Other Start: 08-08-2023 Nursing evaluation o f patient and report Sp Chowdary [facility] Start: 07-20-2023 End: 07-20-2023 ambulatory Sp Chowdary Other [employer] Other Start: 07-20-2023 Telephone encounter Sp Chowdary FP [facility] Start: 06-18-2023 ambulatory Pelon Sil COLES Facili ty:[facility] Start: 06-12-2023 End: 06-12-2023 ambulatory Pelonneela COLES Facility[facility] Start: 05-15-2023 End: 05-15-2023 ambulatory Sp Chowdary Other [employer] Other Start: 05-15-2023 Telephone encounter Sp Chowdary FP [facility] Start: 04-26-2023 ambulatory RADHA Esqueda Facili ty:[facility] Start: 04-24-2023 End: 04-24-2023 ambulatory Sp Chowdary Other [employer] Other Start: 04-24-2023 Office outpatient vi sit 25 minutes Sp GARCIA [facility] Start: 04-10-2023 ambulatory NARENDRANATH LAKSHMIPATHY . Facility:[facility] Start: 03-23-2023 End: 03-24-2023 ambulatory RADHA RIVERA . Facility:[facility] Start: 03-08-2023 End: 03-08-2023 ambulatory Sp Chowdary Other [employer] Other Start: 03-08-2023 Telephone encounter Sp Marino [employer] Start: 03-06-2023 End: 03-06-2023 ambulatory NARENDRANATH LAKSHMIPATHY . Facility:[facility] Start: 02-26-2023 Encounter for genera l adult medical examination without abnormal findings NARENDRANATH LAKSHMIPATHY . [facility] Start: 02-22-2023 End: 02-23-[address] SP CHOWDARY Facility:[facility] Start: 02-22-2023 End: 02-23-2023 ambulatory NARENDRANATH LAKSHMIPATHY . Facility:[facility] Start: 02-22-2023 End: 02-23-2023 ambulatory NARENDRANATH LAKSHMIPATHY . Facility:[facility] Start: 02-22-2023 End: 02-23-2023 Encounter for general adult medical examination without abnormal findings NARENDRANATH LAKSHMIPATHY . Facility:[facility] Start: 02-14-2023 End: 02-14-2023 ambulatory Sp Chowdary [employer] Other Start: 02-14-2023 Office outpatient vi sit 25 minutes Alfonzo Ashford II [facility] Start: 02-05-2023 End: 02-05-2023 ambulatory Sp Chowdary Other [employer] Other Start: 02-05-2023 Telephone encounter Sp [facility] Start: 01-22-2023 End: 01-22-2023 ambulatory Sp Chowdary Other [employer] Other Start: 01-22-2023 Encounter for genera l adult medical examination without abnormal findings Sp Chowdary [facility] Start: 01-22-2023 Periodic preventive med est patient 40-64yrs Sp Chowdary [facility] Start: 12-18-2022 End: 12-18-2022 Patient encounter procedure Pelon COLES [facility] Start: 12-14-2022 End: 12-14-2022 ambulatory Sp Chowdary [facility] Other Start: 12-14-2022 FQHC visit new patient Alfonzo boo II [facility] Start: 12-12-2022 End: 12-12-2022 Patient encounter procedure Duran CRANDALL [facility] N[facility] Start: 12-05-2022 End: 12-06-[address] PELON COLES . Facility: Start: 11-28-2022 Letter encounter Sarah jean baptiste Start: 09-27-2022 End: 09-28-[address] PELON COLES . Facility: Start: 09-26-2022 End: 09-26-2022 ambulatory NOELLE VEGA Facility:[facility] Start: 09-26-2022 End: 09-26-2022 Patient encounter procedure Noelle Vega MD Work Phone: Urology Comment on above: Nephrolithiasis (Estefania jeannie Dx); Calculus of kidney with calculus of ureter Start: 09-12-2022 Orders Only Noelle Matthew Work Phone: Urology Comment on above: Hyperkalemia (Primar y Dx) Start: 09-11-2022 End: 09-12-2022 ambulatory NOELLE VEGA Facility:[facility] Start: 08-28-2022 End: 08-28-2022 ambulatory NOELLE VEGA Facility:[facility] Start: 08-28-2022 End: 08-28-2022 Admission to establishment Pac Av 2 Work Phone: [facility] Start: 08-28-2022 End: 08-28-2022 Preprocedural examination done Pac 2 Work Phone: Pre Anesthesia Start: 08-28-2022 Encounter for other preprocedural examination NOELLE DASANIKA [facility] Start: 08-28-2022 End: 08-29-2022 ambulatory NOELLE [...] End: 08-28-2022 Subsequent hospital visit by physician [facility] Work Phone: [facility] Radiology CT Scan Comment on above: Calculus of kidney w ith calculus of ureter [N20.2] Start: 08-24-2022 Telephone encounter Noelle banuelos MD Work Phone: Urology Comment on above: Schedule Surgery Start: 08-16-2022 Telephone encounter Noelle banuelos MD Work Phone: Urology Comment on above: Other (CD from [facility] XR [facility]) Start: 08-11-2022 End: 08-11-2022 ambulatory Jennifer Singleton [...] other preprocedural examination DR PELON COLES . [facility] Start: 05-05-2022 End: 05-05-[address] PELON COLES . Facility:[facility] Start: 05-05-2022 End: 05-05-2022 Patient encounter procedure Pelon COLES [facility] Start: 05-04-2022 End: 05-05-[address] PELON COLES . Facility:[facility] Start: 05-04-2022 End: 05-05-2022 Encounter for other preprocedural examination DR PELON COLES . Facility:[facility] Start: 05-01-2022 End: 05-02-[address] SP CHOWDARY Facility:[facility] Start: 04-21-2022 End: 04-21-[address] SP CHOWDARY Facility:[facility] Start: 03-14-2022 End: 03-14-2022 Patient encounter procedure Pelon COLES [facility] Start: 03-13-2022 End: 03-13-2022 Patient encounter procedure Pelon COLES [facility] Start: 01-19-2022 Adult health examination Rohan Chowdary Other [employer] Other Start: 02-26-2017 End: 02-27-2017 ambulatory UNKNOWN PROVIDER Facility:[facility] Procedures Date Procedure Procedure Detail Performing Clinician Start: 11-27-2023 Transrectal biopsy of prostate using ultrasound guidance Pelon COLES Start: 11-27-2023 Transurethral insertion of prostatic urethral lift implant Pelon COLES Start: 10-31-2023 Colonoscopy Duran CRANDALL Start: 10-31-2023 Esophagogastroduodenoscopy Duran MANJames Start: 09-11-2023 MR prostate wo/w con DO Sp Chowdary Work Phone: Start: 09-26-2022 Urnls dip stick/tablet rgnt auto w/o microscopy Noelle Vega MD Work Phone: Start: 08-28-2022 Antibody screen NOELLE VEGA Comment on above: Order Comment: Specimen Type: BLOOD SPEC IMENOrdering Facility: [facility] Address: [address] [place], [place] [id number] Performed By: #### T [id number] ####JOELLE BLOOD BANKCLIA [id number] [address] OF [facility] Start: 08-28-2022 Ct abdomen & pelvis w/o contrast material Noelle Vega MD Work Phone: Start: 08-11-2022 Urnls dip stick/tablet rgnt auto w/o microscopy Noelle Vega MD Work Phone: Start: 08-30-2021 Cystoscopy Pelon COLES Start: 08-24-2020 Cystoscopy Pelon COLES Start: 12-16-2019 Cystoscopy Pelon COLES Start: 09-19-2019 Colonoscopy Duran CRANDALL Start: 10-19-2017 Colonoscopy Duran MANJames Start: 02-26-2017 *SPECIMEN FOR SURGICAL PATHOLOGY UNKNOWN [...] CANCER SCREENING DISCUSSION PROSTATE CANCER SCREENING DISCUSSION [facility] Start: 02-26-2023 Hemoglobin A1c/Hemoglobin.total in Blood HBA1C [facility] Start: 09-19-2022 End: 11-19-2022 Basic metabolic 2000 panel - Serum or Plasma BASIC METABOLIC PNL Lab Routine Hyperkalemia Expected: 09/19/2022 (Approximate), Expires: 11/19/2022 [facility] Work Phone: Comment on above: Expected: 09/19/2022 (Approximate), Expi res: 11/19/2022 Start: 08-28-2022 End: 10-28-2022 aPTT in Platelet poor plasma by Coagulation assay ACTIVATED PTT Lab Routine Nephrolithiasis Gross hematuria Expected: 08/28/2022, Expires: 10/28/2022 [facility] Work Phone: Comment on above: Expected: 08/28/2022, Expires: Start: 08-28-2022 End: 10-28-2022 Bacteria identified in Urine by Culture URINE CULTURE Microbiology Routine Nephrolithiasis Expected: 08/28/2022, Expires: 10/28/2022 [facility] Work Phone: Comment on above: Expected: 08/28/2022, Expires: 2 Start: 08-28-2022 End: 10-28-2022 CBC W Auto Differential panel - Blood CBC + DIFF Lab Routine Nephrolithiasis Expected: 08/28/2022, Expires: 10/28/2022 [facility] Work Phone: Comment on above: Expected: 08/28/2022, Expires: 2 Start: 08-28-2022 End: 10-28-2022 Comprehensive metabolic 2000 panel - Serum or Plasma COMP METABOLIC PANEL Lab Routine Nephrolithiasis Expected: 08/28/2022, Expires: 10/28/2022 [facility] Work Phone: Comment on above: Expected: 08/28/2022, Expires: 2 Start: 08-28-2022 End: 10-28-2022 CONFIRM BLOOD TYPE CONFIRM BLOOD TYPE Blood Bank Routine Pre-op evaluation Expected: 08/28/2022, Expires: 10/28/2022 [facility] Work Phone: Comment on above: Expected: 08/28/2022, Expires: 2 Start: 08-28-2022 End: 10-28-2022 Hemoglobin A1c in Blood [facility] Work Phone: Comment on above: Expected: 08/28/2022, Expires: 2 Start: 08-28-2022 End: 10-28-2022 PT panel - Platelet poor plasma by Coagulation assay PROTHROMBIN TIME/PT Lab Routine Nephrolithiasis Gross hematuria Expected: 08/28/2022, Expires: 10/28/2022 [facility] Work Phone: Comment on above: Expected: 08/28/2022, Expires: 2 Start: 08-28-2022 End: 10-28-2022 TYPE AND SCREEN,30 DAY TYPE AND SCREEN,30 DAY Blood Bank Routine Nephrolithiasis Expected: 08/28/2022, Expires: 10/28/2022 [facility] Work Phone: Comment on above: Expected: 08/28/2022, Expires: 2 Start: 08-19-2022 Influenza vaccination Influenza Vaccine (#1) [facility] Start: 08-11-2022 End: 10-11-2022 25-hydroxyvitamin D3 [Mass/volume] in Serum or Plasma VITAMIN D 25 HYDROXY Lab Routine Nephrolithiasis Secondary hyperparathyroidism of renal origin (HCC) Expected: 08/11/2022, Expires: 10/11/2022 [facility] Work Phone: Comment on above: Expected: 08/11/2022, Expires: 2 Start: 08-11-2022 End: 10-11-2022 Parathyrin.intact [Mass/volume] in Serum or Plasma PTH INTACT BLD Lab Routine Nephrolithiasis Expected: 08/11/2022, Expires: 10/11/2022 [facility] Work Phone: Comment on above: Expected: 08/11/2022, Expires: 2 Start: 08-11-2022 End: 10-11-2022 Urinalysis complete panel - Urine URINALYSIS, WITH MICROSCOPIC Lab Routine Nephrolithiasis Expected: 08/11/2022, Expires: 10/11/2022 [facility] Work Phone: Comment on above: Expected: 08/11/2022, Expires: 2 Start: 11-19-2021 DEPRESSION ASSESSMENT DEPRESSION ASSESSMENT [facility] Start: 11-19-2017 Annual wellness visit Annual Wellness Visit ([id number]) [facility] Start: 2017 PROSTATE CANCER SCREENING DISCUSSION PROSTATE CANCER SCREENING DISCUSSION [facility] Start: 02-22-2012 Measurement of occult blood [facility] single [facility] Start: 02-22-2012 Screening for malignant neoplasm of colon CRC Screening [facility] Start: 02-22-2012 Shingles (RZV) Vaccine (1 of 2) Shingles (RZV) Vaccine (1 of 2) [facility] Start: 02-22-2012 SHINGRIX VACCINE (1 of 2) SHINGRIX VACCINE (1 of 2) [facility] Start: 2007 COLOGUARD (FIT-DNA) COLOGUARD (FIT-DNA) [facility] Start: 2007 Colonoscopy COLONOSCOPY [facility] Start: 2007 COLORECTAL CANCER SCREENING COLORECTAL CANCER SCREENING [facility] Start: [address] COLONOGRAPHY [facility] Start: 2007 DIABETES SCREEN DIABETES SCREEN [facility] Start: 2007 FECAL OCCULT BLOOD FECAL OCCULT BLOOD [facility] Start: 2007 SIGMOIDOSCOPY SIGMOIDOSCOPY [facility] Start: 1997 Lipid panel Cholesterol [facility] Start: 1997 LIPID SCREEN LIPID SCREEN [facility] Start: 1981 Urine microalbumin profile DTAP,TDAP,TD (1 - Tdap) [facility] Start: 02-22-1980 ANNUAL PCP TEAM CHRONIC DISEASE VISIT ANNUAL PCP TEAM CHRONIC DISEASE VISIT [facility] Start: 02-22-1980 BP CONTROLLED (<130/80) BP CONTROLLED (<130/80) [facility] Start: 02-22-1980 Hepatitis B surface antibody level LDL CHOLESTEROL [facility] Start: 02-22-1980 Hepatitis C screening Hepatitis C Antibody [facility] Start: 02-22-1980 HEPATITIS C SCREENING HEPATITIS C SCREENING [facility] Start: 02-22-1980 HIV SCREENING HIV SCREENING [facility] Start: 02-22-1980 Tetanus + diphtheria + acellular pertussis vaccine (product) Tdap Booster [facility] Start: 1977 HIV screening HIV Test [facility] Start: 1974 Adult depression screening assessment DEPRESSION SCREENING [facility] Start: 02-22-1972 3 comp foot exam completed DIABETIC FOOT EXAM [facility] Start: 02-22-1972 Hepatitis B screening URINE ALBUMIN:CREATININE RATIO [facility] Start: 02-22-1972 Hepatitis C antibody, confirmatory test DILATED RETINAL EXAM [facility] Start: 02-22-1968 PNEUMOCOCCAL (1 - PCV) PNEUMOCOCCAL (1 - PCV) [facility] Start: 1967 Hemoglobin A1c/Hemoglobin.total in Blood HBA1C [facility] Start: 1962 COVID-19 Vaccine (#1) COVID-19 Vaccine (#1) [facility] Start: 1962 Screening for malignant neoplasm of colon Colonoscopy [facility] Comprehensive metabolic 2000 panel - Serum or Plasma [facility] End: 09-10-2023 Ct abdomen & pelvis w/o contrast material CT FLANK WO IVCON Radiology Routine Calculus of kidney with calculus of ureter 1 Occurrences starting 08/11/2022 until 09/10/2023 [facility] Work Phone: Comment on above: 1 Occurrences starting 08/11/2022 until 09/10/2023 [facility] Immunizations Immunization Date Immunization Notes Care Provider Fa cili 08-08-2023 influenza, injectabl e, quadrivalent, preservative free Sp Chowdary Other [facility] 07-20-2023 influenza virus vaccine, unspecified formulation Duran MANJames [facility] 08-13-2022 SARS-CoV-2 (COVID-19 ) mRNAMUL.[id number] Duran KARLEY [facility] 07-26-2022 influenza virus vaccine, split virus (incl. purified surface antigen) Sp Chowdary Other [employer] Other 07-26-2022 influenza virus vaccine, unspecified formulation Duran CRANDALL [facility] 10-23-2021 COVID-19 Vaccine Pfi zer - Documentation Purposes Only Sp Chowdary Other [facility] 08-11-2021 influenza virus vaccine, split virus (incl. purified surface antigen) Sp Chowdary Other [facility] Other 08-11-2021 influenza virus vaccine, unspecified formulation [facility] 08-10-2021 influenza virus vaccine, unspecified formulation Pelon COLES [facility] 04-15-2021 SARS-CoV-2 (COVID-19 ) Ad26 vaccine, recombinant Pelon COLES [facility] 03-25-2021 SARS-CoV-2 (COVID-19 ) Ad26 vaccine, recombinant Pelon COLES [facility] 02-15-2021 SARS-CoV-2 (COVID-19 ) mRNA BNT-162b2 vax Duran CRANDALL [facility] 01-25-2021 SARS-CoV-2 (COVID-19 ) mRNA BNT-162r6 vax Duran CRANDALL [facility] 01-13-2021 tetanus and diphther ia toxoids, adsorbed, preservative free, for adult use (5 Lf of tetanus toxoid and 2 Lf of diphtheria toxoid) Sp Chowdary Other [facility] 07-20-2020 influenza virus vaccine, split virus (incl. purified surface antigen) Sp Chowdary Other [facility] Other 07-20-2020 influenza virus vaccine, unspecified formulation [facility] 08-18-2019 influenza virus vaccine, split virus (incl. purified surface antigen) Sp Chowdary Other [employer] Other 08-18-2019 influenza virus vaccine, unspecified formulation [facility] 07-20-2019 influenza virus vaccine, live, attenuated, for intranasal use Pelonneela COLES [facility] 08-26-2018 influenza virus vaccine, split virus (incl. purified surface antigen) Sp Chowdary Other [employer] Other 08-26-2018 influenza virus vaccine, unspecified formulation Pelon COLES [facility] 08-31-2017 influenza virus vaccine, unspecified formulation Pelon COLES [facility] 08-31-2017 tetanus and diphther ia toxoids, adsorbed, preservative free, for adult use (5 Lf of tetanus toxoid and 2 Lf of diphtheria toxoid) Sp Chowdary Other [facility] 10-02-2016 pneumococcal conjuga te vaccine, 13 valent Sp Chowdary Other [facility] 10-02-2016 pneumococcal Conjuga te, unspecified formulation; Translations: [Need for prophylactic vaccination against Streptococcus pneumoniae (pneumococcus)] Sp Chowdary Other [facility] [employer] Other 07-25-2016 tetanus and diphther ia toxoids, adsorbed, preservative free, for adult use (5 Lf of tetanus toxoid and 2 Lf of diphtheria toxoid) Sp Chowdary Other [facility] 07-21-2015 tetanus and diphther ia toxoids, adsorbed, preservative free, for adult use (5 Lf of tetanus toxoid and 2 Lf of diphtheria toxoid) Sp Chowdary Other [facility] 06-21-2015 pneumococcal polysaccharide vaccine, 23 valent Sp Epi Other [facility] 07-30-2013 tetanus and diphther ia toxoids, adsorbed, preservative free, for adult use (5 Lf of tetanus toxoid and 2 Lf of diphtheria toxoid) Sp Chowdary Other [facility] 08-01-2012 tetanus and diphther ia toxoids, adsorbed, preservative free, for adult use (5 Lf of tetanus toxoid and 2 Lf of diphtheria toxoid) Sp Chowdary Other [facility] 07-30-2008 diphtheria, tetanus toxoids and acellular pertussis vaccine, unspecified formulation Sp Chowdary Other [facility] 10-02-2001 Td(adult) unspecifie d formulation Pelon COLES [facility] Payers Date Payer Category Payer Self-pay [id number] 2019 Private Health Insurance [facility] CHOICE PLUS [id number] 2019-Present [phone] [address] [place] [address] HMO [id number] 2016 Medicare [id number] 2001 Medicare [id number] [id number] .[id number] 1962 Unknown [id number] 2.16.840.1.839478.3.579. 2.732 1962 Unknown [id number] 2.16.840.1.416537.3.579. 2.593 1962 Unknown [id number] 2.16.840.1.903284.3.579. 2.593 1962 Unknown [id number] 2.16.840.1.954483.3.579. 2.593 1962 Unknown [id number] 2.16.840.1.277215.3.579. 2.593 1962 Unknown [id number] 2.16.840.1.963865.3.579. 2.593 1962 Unknown [id number] 2.16.840.1.486893.3.579. 2.593 1962 Unknown [id number] 2.16.840.1.573868.3.579. 2.593 1962 Unknown [id number] 2.16.840.1.723566.3.579. 2.593 1962 Unknown [id number] 2.16.840.1.507563.3.579. 2.593 1962 Unknown [id number] 2.16.840.1.468611.3.579. 2.593 1962 Unknown [id number] 2.16.840.1.575978.3.579. 2.593 1962 Unknown [id number] 2.16.840.1.854263.3.579. 2.593 1962 Unknown [id number] 2.16.840.1.507433.3.579. 2.593 1962 Unknown [id number] 2.16.840.1.203220.3.579. 2.593 1962 Unknown [id number] 2.16.840.1.843388.3.579. 2.593 1962 Unknown [id number] 2.16.840.1.717073.3.579. 2.593 1962 Unknown [id number] 2.16.840.1.131334.3.579. 2.593 1962 Unknown [id number] 2.16.840.1.731097.3.579. 2.593 1962 Unknown [id number] 2.16.840.1.749951.3.579. 2.593 1962 Unknown [id number] 2.16.840.1.510178.3.579. 2.593 1962 Unknown [id number] 2.16.840.1.436108.3.579. 2.593 1962 Unknown [id number] 2.16.840.1.711343.3.579. 2.727 1962 Unknown [id number] 2.16.840.1.814576.3.579. 2.727 1962 Unknown [id number] 2.16.840.1.263434.3.579. 2.727 1962 Unknown [id number] 2.16.840.1.050823.3.579. 2.727 1962 Unknown [id number] 2.16.840.1.554050.3.579. 2.727 1962 Unknown [id number] 2.16.840.1.635784.3.579. 2.727 1962 Unknown [id number] 2.16.840.1.788295.3.579. 2. 1962 Unknown [id number] 2.16.840.1.468781.3.579. 2.727 1962 Unknown [id number] 2.16.840.1.125568.3.579. 2. 1962 Unknown [id number] 2.16.840.1.873603.3.579. 2. 1962 Unknown [id number] 2.16.840.1.141784.3.579. 2. 1962 Unknown [id number] 2.16.840.1.351463.3.579. 2.72 1962 Unknown [id number] 2.16.840.1.717296.3.579. 2. 1962 Unknown [id number] 2.16.840.1.024322.3.579. 2. 1962 Unknown [id number] 2.16.840.1.981379.3.579. 2. 1962 Unknown [id number] 2.16.840.1.492966.3.579. 2.72 1962 Unknown [id number] 2.16.840.1.042777.3.579. 2.72 1962 Unknown [id number] 2.16.840.1.920579.3.579. 2.727 1959 Medicare [id number] 1959 Unknown [id number] Private Health Insurance [facility] [id number] Unknown [employer] [id number] Unknown [id number] 2.16.840.1.206145.3.579. 2.531 Unknown [id number] 2.16.840.1.378654.3.579. 2.531 Unknown [id number] 2.16.840.1.102411.3.579. 2.531 Social History Date Type Detail Facility Start: 03-13-2022 End: 05-05-2024 Tobacco smoking status Never smoked tobacco (finding) [facility] Tobacco smoking status Never [facility] Sex Assigned At Male [facility] Tobacco smoking status WAIS Tobacco smoking consumption unknown [facility] Start: 1960 Sex Assigned At Not on file [facility] Start: 08-04-2022 End: 09-26-2022 Exposure to SARS-CoV-2 (event) Not sure [facility] History of tobacco use Passive smoker [facility] Start: 08-28-2022 Tobacco use and exposure Smokeless tobacco non-user [facility] Start: 08-28-2022 End: 09-11-2022 Alcohol intake Ex-drinker (finding) [facility] Start: 1960 Sex Assigned At Male [facility] Medical Equipment Procedure Code Equipment [...] x 15/64 syringe Start: 01-10-2024 End: 03-25-2024 Insulin U-500 Syringe-Needle (Bd Insulin Syringe U-500) 1/2 mL 31 gauge x 15/64 syringe Start: 01-08-2024 End: 01-10-2024 Insulin U-500 Syringe-Needle (Bd Insulin Syringe U-500) 1/2 mL 31 gauge x 15/64 syringe Start: 01-10-2024 End: 03-25-2024 Functional Status Date Assessment Result Facility 05-05-2024 Functional Status N/A [facility] 12-17-2023 Functional Status N/A [facility] 10-29-2023 Functional Status N/A [facility] 10-05-2023 Functional Status N/A [facility] Functional Status N/A [facility] Clinical Notes 03-13-2022 to 05-05-2024 Note Date [...] Follow these instructions at home: Medicines Take bdtx-jam-lbjujtx and prescription medicines only as told by [...] important. Where to find more information National [place] of Diabetes and Digestive and Kidney Diseases: [...] depends on the type of prostatitis. Take wvwm-utk-sclehjr and prescription medicines only as told by [...] provider. Document Revised: 12/10/2020 Document Reviewed: 12/10/2020 [employer] Patient Education 2022 [email or web address]. Follow Up Care 05/05/2024 10:36:21 With:SANKET PRECIADO, Pelon Mujica, URL Address: [facility] [address] [place] [address]- When: Unknown [facility] [place] 12-17-2023 Hospital Discharg e instructions Patient Education [...] Follow these instructions at home: Medicines Take jicr-qem-yigtmck and prescription medicines only as told by [...] provider. Document Revised: 02/01/2022 Document Reviewed: 02/01/2022 [employer] Patient Education 2022 [email or web address]. Follow Up Care 12/13/2023 11:10:14 With:SANKET PRECIADO, Pelon Mujica, URL Address: [facility] [address] [place] [address]- [phone] When: Unknown Comments:1 yr w/ PSA and KUB [facility] 11-23-2023 Evaluation note Encounter Date Diagnosis [...] 130 Decrease ISS to avoid hypoglycemic episodes [employer] [facility] Leaky Other 12-14-2023 Evaluation note* Encounter Date Diagnosis Assessment Notes Treatment Notes Treatment Clinical Notes Oct, Type 2 diabetes mellitus with hyperglycemia (ICD-10 - E11.65) [facility] Other 12-11-2023 Hospital Discharge instructions Follow Up Care 10/29/2023 11:16:58 With:SANKET PRECIADO, Pelon Mujica, URL Address: [facility] [address] [place] [address]- When: Unknown Comments:Scheduled for TRUS/bx on 11/27/23. [facility] 12-05-2023 Evaluation note* Encounter Date Diagnosis [...] use, the patient reduces the risk for NH, CVA, HTN, cardiac dysrhythmias and sudden cardiac [...] active. 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) [employer] Other 11-17-2023 NoteChief Complaint consultation for anemia and h/o colon polyps [facility] Staff 63 year old male presents on [...] tab(s), Oral, As Direct (more content not included)...[facility] [place] on above:Result Comment: Electronically Signed By: KARLEY PRECIADO, Duran Mujica\.br\Date and Time Signed: 10/05/23 14:45 [id number] Hospital Discharge instructions Follow Up Care 10/02/2023 11:36:47 With:SANKET PRECIADO, Pelon Mujica, URL Address: [facility] [address], [place] [phone] When: Unknown [facility] Meghann 09-01-2023 Evaluation note* Encounter Date Diagnosis Assessment Notes Treatment Notes Treatment Clinical Notes Jul, Controlled type 2 diabetes mellitus with hyperglycemia, without long-term current use of insulin (ICD-10 - E11.65) [facility] Other 07-25-2023 Note [id number]:127[facility] 06-12-2023 NoteCustom Cystoscopy ? Voiding after the [...] if you have a fever over 100 degrees.[facility] 04-24-2023 Evaluation note* Encounter Date Diagnosis Assessment [...] use, the patient reduces the risk for NH, CVA, HTN, cardiac dysrhythmias and sudden cardiac [...] E11.3393) Control BS and close f/u w/ risk adjustment specialist Apr, Hyperlipidemia, mixe d (ICD-10 - [...] colon (ICD-10 - D12.4) 1 polypectomy - 2018Apr, Other obesity due to excess calories (ICD-10 - E66.09) This patient has been instructed on a low-fat, high-fiber diet. They are instructed to reduce calories, portion sizes and snacks. It is recommended that they exercise for 30 minutes, 3-5 times weekly. Apr, Body mass index [BMI ] 34.0-34.9, adult (ICD-10 - Z68.34) [facility] Other 04-06-2023 NoteCONSULTATION CONSULTATION DATE: 02/22/2023 TO: [...] our patients to inform us about any gaae-wcw-ohcvmxw medications or herbal remedies/nutritional supplements/alternative remedies. 2. [...] treatment options with their primary care provider.[facility] HospitalVnutslup12-58-1854 Evaluation note * Encounter Date Diagnosis Assessment [...] move forward with anything in the future. [facility] Other 03-06-2023 Evaluation note* Encounter Date Diagnosis [...] is down from 13 - f/u Urology [facility] [facility] Other 01-30-2023 Hospital Discharge instructions Patient Education [...] urethra. Follow these instructions at home: Take idhv-plc-ybowlbh and prescription medicines only as told by [...] 11/05/2006 Document Revised: 09/30/2019 Document Reviewed: 12/10/2017 [employer] Patient Education 2020 [email or web address]. Follow Up Care 11/30/2022 15:02:18 With:SANKET PRECIADO, Pelon Mujica, URL Address: [facility] [address] [place] [address]- When: Unknown [facility] 01-26-2023 Evaluation note* Encounter Date Diagnosis [...] does have some posttraumatic osteoarthritis and is nidb-mh-ttvl in the medial compartment. He has had [...] 3 months to check on his progress. [facility] Other 11-08-2022 NoteHNO ID: [id number] Author: Noelle Vega MD Service: ? Author [...] patient: Yes Procedure confirmed with physician and student support advisor: Yes Sign In: History and Physical Exam [...] urine metabolic studies if indicated. Noelle Vega MDBoston [id number] Nurse Note* Arlene Miguel Ma - 09/26/2022 [...] cc 2% Lidocaine jelly and Administered by - see Procedure Physician Note. Arlene Miguel [...] Education Session: None Instruction Provided To: Patient Seo Expert Present: not applicable Discipline: Nursing Learning Topic: SURVIVAL SKILLS: Complication Prevention Symptom Management Patient Evaluation: Verbalizes understanding: Yes Supplemental Material Given: Written Material Instructed By Arlene Miguel Ma In Department Urology . [facility] History of Present illness Narrative* Noelle [...] patient: Yes Procedure confirmed with physician and student support advisor: Yes Sign In: History and Physical Exam [...] indicated. Noelle Vega MD documented in [facility] encounterPark[facility]10-[facility]22 NoteHNO ID: [id number] Author: Flor Sahu PA-C Service: Hospital Medicine Author Type: Physician Nursing Attendant Type: Plan of Care Filed: 09/12/2022 12:58 [...] Lopez DATE: September 12, 2022 TIME: 12:57 [facility] [id number] NoteHNO ID: [id number] Author: GUERA Granados Service: Care Management Author Type: Senior Applications Architect Type: Care Mgt Initial Assessment Filed: 09/12/2022 11:00 AM Note Text: 10:58 AM CARE MANAGEMENT: ASSESSMENT AND DISCHARGE PLAN SERVICE DATE: September 12, 2022 SERVICE TIME: 10:59 AM PRIMARY CARE PHYSICIAN: Sp Chowdary DO Primary Contact: Extended Emergency Contact Information Primary Emergency Contact: Svitlana Lopez Muddy Mobile Relation: Spouse ADMISSION STATUS: Extended Recovery Insurance Provider: [facility] CHOICE PLUS NEEDS PRIOR TO DISCHARGE Needs Prior to Discharge: To Be Determined;Pharmacy Bedside Delivery;Discharge Transportation POTENTIAL TRANSITION PLANS Home Based on clinical judgement, Care Management will address the following needs: No transitional/discharge planning needs at this time Patient's perception of need for this admission: kidney stone ADVANCE DIRECTIVES Current Advance Directive: None Political Science Research Assistant Attempted to Assist with AD Completion: Yes [...] discharge within 30 days: No PATIENT SCREEN 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 FREEDOM OF CHOICE EXPLAINED: [place] of Choice Given: No Reason Not Given: No placements necessary Are you interested in bedside delivery of your medications? Yes ASSESSMENT AND PLAN: Mr Lopez reports his will transport him home to [facility] at discharge. He has no anticipated transitional care needs for discharge. SIGNATURE: GUERA Granados PATIENT NAME: Dat Lopez DATE: September 12, 2022 TIME: 10:58 AM CONTACT #: [id number] [id number] NoteHNO ID: [id number] Author: Valdo Mcghee MD Service: Urology Author Type: Resident Type: Progress Notes Filed: 09/12/2022 10:45 AM Note Text: [facility] UROLOGY [...] Vega. Valdo Mcghee MD PGY-5, Urology Pager: [phone] 10:45 AM 09/12/2022 Interval/daily plan: Doing well. [...] Vega. Valdo Mcghee MD PGY-5, Urology Pager: [phone] After 1800 and on weekends please page [phone] for assistance. SUBJECTIVE -Patient doing well -Pain: [...] -- 1.67* GLUC -- -- -- 214* Imaging [facility]10-24-2022 NoteHNO ID: [id number] Author: Noelle Vega MD Service: Urology Author [...] infusion 100 mL/hr INTRAVENOUS CONTINUOUS phenol 1 [place] (CHLORASEPTIC) 1 [place] MUCOUS MEMBRANE (TOPICAL MOUTH AND THROAT) q [...] monitor - KUNAL - home regimen. - Parminder Portillo - careful movement - Discharge teaching - [...] September 11, 2022 4:19 PM PLEASE CONTACT ELECTRICAL TEST ENGINEER OVERNIGHT IF ANY QUESTIONSSalt Lake Regional Medical CenterAbxlyrje98-67-7643 NoteHNO ID: [id number] Author: RT Anisha(R) Service: Radiology Author Type: [...] BY: RT Anisha(R) September 11, 2022 11:55 AMSalt Lake Regional Medical CenterHnecusoo08-75-3908 NoteHNO ID: [id number] Author: Caroline Larios APRN.FLOWER ARRANGER Service: ? Author Type: Nurse Preparing Box Tender Type: Anesthesia Procedure Notes Filed: 09/11/2022 7:58 AM Note Text: ANESTHESIOLOGY PROCEDURE NOTE Airway General Information Procedure Start Time/Medication Administration: 09/11/2022 7:40 AM Patient location during procedure: OR Staffing Anesthesiologist: Melisa Rangel MD FLOWER ARRANGER: Caroline Larios APRN.FLOWER ARRANGER Performed by: FLOWER ARRANGER Indications and Patient Condition Indications for airway [...] 1 Airway not difficult SIGNATURE: Caroline Larios APRN.CRNA PATIENT NAME: Dat Lopez DATE: September 11, 2022 TIME: 7:57 AM CSN: [id number] NoteHNO ID: [id number] Author: ANASTASIIA Rodriguez Service: Radiology Author Type: [...] BY: ANASTASIIA RODRIGUEZ August 28, 2022 7:11 AMSalt Lake Regional Medical CenterTnrtusef04-96-8717 History and physical note* Mechelle Burnett PA-C [...] Prior to Admission medications as of 08/28/22 0949 Medication Sig Last Dose Taking metFORMIN (GLUCOPHAGE) [...] UNITS SUBCUTANEOUSLY ONCE A DAY Taking Yes BASAGLSAVANNA MEADEPEN U-100 INSULIN 100 unit/mL (3 mL) INJECT [...] fevers. 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 No neurological symptoms or problems. Respiratory: No history of current cough or dyspnea, or pneumonia in the past 6 weeks. No history of respiratory/pulmonary symptoms or problems. Cardiovascular: +HTN, HLD, POTS- no recent episodes Negative for Recent NH, Angina, Chest Pain, CHF, DVT/PE GI: No [...] compliance. SIGNATURE: Mechelle Burnett PA-C PATIENT NAME: aDt Lopez DATE: August 28, 2022 TIME: 9:57 AM documented in this encounterParkwood Hospital10-10-[facility]22 History of Present illness Narrative* ANASTASIIA [...] 28, 2022 7:11 AM documented in this encounterParkwood Hospital10-07-2022 Miscellaneous Notes* Telephone Encounter - Eddie Freed Pss - 08/25/2022 4:35 PM EDT Patient scheduled for surgery on 09/11 at [facility] for PERCUTANEOUS NEPHROLITHOTOMY [2747] - Kidney [...] message, no vm available. documented in this encounterParkwood Hospital10-06-2022 Instructions* Patient Instructions* Mechelle Burnett PA-C - 08/24/2022 12:52 PM EDT PATIENT PREOPERATIVE INSTRUCTIONS Noelle Vega MD has scheduled you for your procedure at this surgery center: [facility]: [phone] --[address] [place] [address]. Please enter through the entrance closest to [...] Procedures: - YOU MUST HAVE A RESPONSIBLE RETAIL SPECIAL EVENT ASSOCIATE TAKE YOU HOME. A EXPERIMENTAL ASSEMBLER OR BEAUTY CULTURIST APPRENTICE CANNOT BE MADE A RESPONSIBLE RETAIL SPECIAL EVENT ASSOCIATE. - We recommend that a responsible person stays with you overnight to take care of you. - You cannot stay in a hotel alone after outpatient surgery. You will not be permitted to have yoursurgery, if you do not have someone to take care of you. If you already have an Advance Directive, please fax a copy to [phone] or email to for it to be [...] day. Mechelle Burnett PA-C documented in this encounterParkwood Hospital09-28-2022 Miscellaneous Notes* Telephone Encounter - Bienvenido Del Cid Ma - 08/16/2022 5:19 PM EDT Images from cd have been uploaded into patient's chart. I spoke with patient and he does not need the cd back. I am putting it in the admin office to be destroyed. documented in this encounterParkwood Hospital09-23-2022 NoteHNO ID: [id number] Author: Noelle Vega MD Service: ? Author Type: Physician Type: Progress Notes Filed: 08/11/2022 11:28 AM Note Text: [facility] NEW PATIENT HISTORY AND PHYSICAL EXAM PATIENT INFO: Dat Lopez 62 year old REFERRING M.D.: Pelon Coles [address] [place] [address] PCP: No primary care provider on file. [...] Left NL, multiple stones. ESWL was performed. [facility]. Then URS x 2 and ureteral [...] INJECT 55 UNITS SUBCUTANEOUSLY ONCE A DAY ELIOTAGLSAVANNA KWIKPEN U-100 INSULIN 100 unit/mL (3 mL) [...] history of headaches, syncope (more content not included)...[facility]09-23-2022 Instructions* Patient Instructions* Noelle Vega MD [...] video with more information on ureteral stents: [email or web address] Video on PCNL: [email or web address] If you have any additional questions regarding this procedure, please reach out to our team. Warm regards, [facility] Team documented [facility] History of Present illness Narrative* Noelle Vega MD - 08/11/2022 11:00 AM EDT Images from the original note were not included. [facility] NEW PATIENT HISTORY AND PHYSICAL EXAM PATIENT INFO: Dat Lopez 62 year old REFERRING M.D.: Pelon Coles [address] [place] [address] PCP: No primary care provider on file. [...] Left NL, multiple stones. ESWL was performed. [facility]. Then URS x 2 and ureteral [...] Abdomen is Non-distended, soft, nontender. 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 Neurologic: Normal gait. Sensation grossly intact. [...] with URS. Plan for Sep 11 at [place] The patient decided to proceed with the [...] Vega MD Associate Staff documented in this encounterPark[facility] NotePROCEDURE: XR HIP LT 2 3V [...] Electronically authenticated by: GEMA OTTO Date: 2022-07-26 21:53[facility]04-26-2022 Hospital Discharge instructions Patient Education 03/14/2022 [...] COLES Address: [facility] [address], [place] [address]- [facility] (1) When: Unknown Comments:Office will call to schedule follow up [facility]04-25-2022 Hospital Discharge instructions Patient Education 03/13/2022 [...] Follow these instructions at home: Medicines Take xhrj-ymz-fzrbply and prescription medicines only as told by [...] or the blood stops without treatment. Take cgzw-hrv-dkeegqo and prescription medicines only as told by your health care provider. Drink enough fluid to keep your urine clear or pale yellow. This information is not intended to replace advice given to you by your health care provider. Make sure you discuss any questions you have with your health care provider. Document Released: 11/05/2006 Document Revised: 03/31/2020 Document Reviewed: 12/08/2017 [employer] Patient Education 2020 [email or web address]. Follow Up Care 03/13/2022 08:09:52 With:Pelon COLES MD, URL Address: [facility] [address] , [place] [address]- [phone] When: Unknown [facility] evaluation + Plan note Future Appointments Appointment Date:03/14/2022 10:00:00 AM Scheduled Provider: Location:[facility] Appointment Type:Urology FT Appointment Date:05/05/2022 09:30:00 AM Scheduled Provider:Pelon COLES MD Location:[facility] Appointment Type:URO Office Visit [facility] evaluation + Plan note Future Appointments Appointment Date:05/05/2022 09:30:00 AM Scheduled Provider:Pelon COLES MD Location:[facility] Appointment Type:URO Office Visit Diagnostic Tests Pending * UroVysion Fish and Urine Cyto ([facility]) [facility] App[facility]ments Appointment Date:12/18/2022 02:30:00 PM Scheduled Provider:Pelon COLES MD Location:[facility] Appointment Type:URO Office Visit General Surgery [place] Evaluation + Plan note Future Appointments Appointment Date:06/18/2023 09:45:00 AM Scheduled Provider:Pelon COLES MD Location:[facility] Appointment Type:URO Office Visit [facility] evaluation + Plan note Future Appointments Appointment Date:11/27/2023 03:30:00 PM Scheduled Provider:Pelon COLES MD Location:[facility]placed by [facility] Appointment Type:URO Procedure 30 min Appointment Date:12/14/2023 10:30:00 AM Scheduled Provider:Pelon COLES MD Location:[facility] Appointment Type:URO Office Visit General Surgery [place] Evaluation + Plan note Future Appointments Appointment Date:12/14/2023 10:30:00 AM Scheduled Provider:Pelon COLES MD Location:[facility] Appointment Type:URO Office Visit [facility] Evaluation + Plan note Future Appointments Appointment Date:12/14/2023 10:30:00 AM Scheduled Provider:Pelon COLES MD Location:[facility] Appointment Type:URO Office Visit Diagnostic Tests Pending * Prostate Histology ([facility]) [facility] App[facility]ments Appointment Date:12/19/2024 10:30:00 AM Scheduled Provider:Pelon COLES MD Location:[facility] Appointment Type:URO Office Visit Diagnostic Tests Pending * PSA Total 12/17/23 [facility] evaluation + Plan note Future Appointments Appointment Date:12/19/2024 10:30:00 AM Scheduled Provider:[facility] Office Visit Diagnostic Tests Pending * Urine Culture [facility] App[facility]ments Appointment Date:12/19/2024 10:30:00 AM Scheduled Provider:P[facility] COLES [facility] Office Visit Diagnostic Tests Pending * Creatinine 05/05/24 [facility] evaluation + Plan note Future Appointments Appointment Date:06/23/2024 09:00:00 AM Scheduled Provider: Location:[facility] Appointment Type:URO Nurse Visit Appointment Date:07/07/2024 12:30:00 PM Scheduled Provider:Pelon COLES MD Location:[facility] Appointment Type:URO Office Visit Appointment Date:12/19/2024 10:30:00 AM Scheduled Provider:Pelon COLES MD Location:[facility] Appointment Type:URO Office Visit [facility] evaluation note* Diagnosis Screening for genitourinary condition- Primary Screening for other and unspecified genitourinary condition Calculus of kidney with calculus of ureter Calculus of kidney Staghorn calculus Calculus of kidney documented in this encounter [facility] note* Diagnosis Nephrolithiasis- Primary Calculus of kidney Secondary hyperparathyroidism of renal origin (HCC) Secondary hyperparathyroidism (of renal origin) Gross hematuria Gross hematuria Nephrolithiasis Calculus of kidney documented in this encounter [facility] note* Diagnosis Pre-op evaluation- Primary Preoperative examination, [...] Calculus of kidney [facility] Diagnosis Calculus of kidney with calculus of ureter Calculus of kidney Nephrolithiasis Calculus of kidney documented in this encounter [facility] note* Diagnosis Hyperkalemia- Primary Hyperpotassemia documented in this encounter [facility] note* Diagnosis Nephrolithiasis- Primary Calculus of kidney Calculus of kidney with calculus of ureter Calculus of kidney documented in this encounter [facility] noteNo InformationNort Single Digits Other Evaluation noteNort Single Digits Other Evaluation noteNo assessment information available [facility] Work Phone: Evaluation note* Diagnosis Onset Date Resolution Status [id number] acute Primary hypertension acute [id number] acute [facility] Work Phone: Evaluation note* Diagnosis Onset Date [...] acute Lumbar spondylosis acute Primary hypertension acute [facility] Work Phone: Evaluation note* Diagnosis Onset Date Resolution Status Chronic kidney disease acute Lumbar spondylosis acute Primary hypertension acute Primary osteoarthritis of knee acute Type 2 diabetes mellitus with hyperglycemia acute Anemia acute Chronic kidney disease acute Lumbar spondylosis acute Primary hypertension acute Primary osteoarthritis of knee acute Type 2 diabetes mellitus with hyperglycemia acute [facility] Work Phone: History general Narrative - Reported* [...] Surgical History COLONOSCOPY Hospitalization History see surgeries [employer] Other History general Narrative - Reported* Type [...] Surgical History COLONOSCOPY Hospitalization History see surgeries [employer] Other History general Narrative - ReportedNort Single Digits Other Hospital course Narrative No data available for this section [facility] Discharge instructions No data available for this section [facility] [employer] progress note No data available for this section [facility] reason for referral (narrative)* Reason *FU 02/13 Referral for low back pain Diagnosis 1 Lumbar spondylosis ( M47.816) Referral Organization [facility] alfred Referring Provider First Name Sp Referring Provider Last Name Epi Referring Provider Specialty Internal Me dicine Referred Organization [facility] Referred Provider Vandana Blount Referred Address [address], [place],[address] Referred Provider Specialty Pain Medicin e Referral Priority Routine General Notes Patient requesting r bonnieal for pain management. He had seen pain management for years but his provider moved. He would like to become established with local pain clinic Smita Prasad 02/06/2023 01:53:36 PM >received today Smita Prasad 02/06/2023 01:55:11 PM >attachments made, notes locked, referral faxed Clinical Notes This patient has chr onic low back pain. He has received benefit from previous injections. P: [phone] F: [id number] [employer] Other Summary Purpose Family History No Family History Records Found Relationship Condition Age at Onset Recorded Date/T jackie father Unknown Not Specified Unknown Relationship Condition Age at Onset Recorded Date/T jackie father Unknown mother Unknown Advance Directives No Advanced Directives Records Found Advance Directive Response Recorded Date/ Time Advance Directives No July 03, 2019 6:13am Advance Directive Response Recorded Date/ Time Advance Directives No July 03, 2019 5:13am Reason for Referral Specialty Diagnoses / Procedures Referred By Elena t Referred To Contact Cardiology Diagnoses Nephrolithiasis Procedures CONSULT TO CARDIOLOGY OFFICE/OUTPATIENT [facility] 60-[place] [address] [place] [address] Referral ID Status Reason Start Date Expiration Date Visits Requested Visits Authorized [id number] Pending Review PCP Requested Referral 08/11/2022 08/11/2023 1 1 Specialty Diagnoses / Procedures Referred By Contac t Referred To Contact Diagnoses Nephrolithiasis Procedures REFER TO PACC - PRE ANESTHESIA CONSULTATION CLINIC OFFICE/OUTPATIENT [facility] MDM 60-[place] [address] [place] [address] Referral ID Status Reason Start Date Expiration Date Visits Requested Visits Authorized [id number] Pending Review PCP Requested Referral 08/11/2022 08/11/2023 1 1 Specialty Diagnoses / Procedures Referred By Elena t Referred To Contact CT IMAGING Diagnoses Calculus of kidney with calculus of ureter Procedures CT FLANK WO IVCON CT ABD & PEL[place] [address] [place] [address] Ct Imaging Referral ID Status Reason Start Date Expiration Date Visits Requested Visits Authorized [id number] Authorized Auto-Generat ed Referral 08/11/2022 09/10/2023 1 [...] Check Up worsening neuropathy Reason for Visit [id number] Primary hypertension [id number] Chief Complaint worsening neuropathy Wellness Amb Documentation 1 month Reason for Visit Anemia Neuritis of right lower extremity Primary hypertension Benign prostatic hyperplasia with lower urinary tract symptoms Hyperlipidemia, mixed Lumbar spondylosis Primary hypertension Type 2 diabetes mellitus with diabetic polyneuropathy Type 2 diabetes mellitus with hyperglycemia Wellness examination Chronic kidney disease Lumbar spondylosis Primary hypertension Chief Complaint 1 month 4 month follow up Reason for Visit Chronic kidney disea se Lumbar spondylosis Primary hypertension Primary osteoarthritis of knee Type 2 diabetes mellitus with hyperglycemia Anemia Chronic kidney disease Lumbar spondylosis Primary hypertension Primary osteoarthritis of knee Type 2 diabetes mellitus with hyperglycemia Additional Source Comments (unrecognized sect ion and content) No Status Records FoundNo Status Records FoundNo Status Records FoundNo Status Records FoundNo Status Records FoundNo Status Records FoundNo Status Records FoundNo Status Records FoundNo Status Records FoundNo Status Records Found INFORMATION SOURCE (unrecogn ized section and content) DATE CREATED AUTHOR 06/05/2019 [facility] DATE CREATED AUTHOR AUTHOR'S ORGANIZ ATION 01/03/2022 [facility] DATE CREATED AUTHOR AUTHOR'S ORGANIZ ATION 08/21/2022 [facility] DATE CREATED AUTHOR AUTHOR'S ORGANIZ ATION 09/16/2022 [facility] DATE CREATED AUTHOR AUTHOR'S ORGANIZ ATION 09/27/2022 [facility] DATE CREATED AUTHOR AUTHOR'S ORGANIZ ATION 04/04/2023 [facility] DATE CREATED AUTHOR AUTHOR'S ORGANIZ ATION 09/19/2023 [facility] DATE CREATED AUTHOR AUTHOR'S ORGANIZ ATION 05/08/2024 [facility] DATE CREATED AUTHOR AUTHOR'S ORGANIZ ATION 05/21/2024 [facility] DATE CREATED AUTHOR AUTHOR'S ORGANIZ ATION 06/07/2024 [facility] Care Team (unrecognized sect ion and content) Order Taker Relationship Specialty Start Date End Date Sp Chowdary, DO [address] [id number] PCP - General Internal Medicine 09/07/22 Order Taker Relationship Specialty Start Date End Date Sp Chowdary, DO [address] [place] [address] PCP - General Internal Medicine 09/07/22 Team [...] Status: Active Member Role Status Dates Sp Ball , DO Primary Care Provide r, Attending [...] March 25, 2024 End: March 25, 2024 Team Status: Active Member Role Status Dates Sp Chowdary , DO Primary Care Provider Active Start: May 12, 2024 Pelon Coles MD Attending Provider Active St art: May 12, 2024 Team Status: Active Member Role Status Dates Sp Chowdary , DO Primary Care Provider Active Start: May 23, 2024 Kandi Cordero PA-C Attending Provider Active Start: May 23, 2024 Team Status: Inactive Member Role Status Dates Sp Chowdary , DO Primary Care Provide r, Attending Provider Active Start: May 27, 2024 End: May 27, 2024 Source Comments (unrecognize d section and content) In the event this informatio n is protected by the Federal Confidentiality of Alcohol and Drug Abuse Patient Records regulations: The Federal rules restrict any use of the information to criminally investigate or prosecute any alcohol or drug abuse patient.[facility] HospitalIn the event this information is protected by the Federal Confidentiality of Alcohol and Drug Abuse Patient Records regulations: The Federal rules restrict any use of the information to criminally investigate or prosecute any alcohol or drug abuse patient.[facility] HospitalIn the event this information is protected by the Federal Confidentiality of Alcohol and Drug Abuse Patient Records regulations: The Federal rules restrict any use of the information to criminally investigate or prosecute any alcohol or drug abuse patient.[facility] HospitalIn the event this information is protected by the Federal Confidentiality of Alcohol and Drug Abuse Patient Records regulations: The Federal rules restrict any use of the information to criminally investigate or prosecute any alcohol or drug abuse patient.[facility] HospitalIn the event this information is protected by the Federal Confidentiality of Alcohol and Drug Abuse Patient Records regulations: The Federal rules restrict any use of the information to criminally investigate or prosecute any alcohol or drug abuse patient.[facility] HospitalIn the event this information is protected by the Federal Confidentiality of Alcohol and Drug Abuse Patient Records regulations: The Federal rules restrict any use of the information to criminally investigate or prosecute any alcohol or drug abuse patient.[facility] HospitalIn the event this information is protected by the Federal Confidentiality of Alcohol and Drug Abuse Patient Records regulations: The Federal rules restrict any use of the information to criminally investigate or prosecute any alcohol or drug abuse patient.[facility] HospitalIn the event this information is protected by the Federal Confidentiality of Alcohol and Drug Abuse Patient Records regulations: The Federal rules restrict any use of the information to criminally investigate or prosecute any alcohol or drug abuse patient.[facility] Reason for Visit (unrecogniz ed section and content) Reason Comments New Patient Kidney stones Reason Comments Other CD from [facility] XR KUB Reason Comments Schedule Surgery Specialty Diagnoses / Procedures Referred By Elena apple Referred To Contact Diagnoses Nephrolithiasis Procedures REFER TO PACC - PRE ANESTHESIA CONSULTATION CLINIC OFFICE/OUTPATIENT NEW HIGH MDM 60-[place] [address] [place] [address] Referral ID Status Reason Start Date Expiration Date Visits Requested Visits Authorized [id number] Pending Review PCP Requested Referral 08/11/2022 08/11/2023 1 1 Specialty Diagnoses / Procedures Referred By Elena apple Referred To Contact CT IMAGING Diagnoses Calculus of kidney with calculus of ureter Procedures CT FLANK WO IVCON CT ABD & PEL[place] [address] [place] [address] Ct Imaging Referral ID Status Reason Start Date Expiration Date V isits Requested Visits Authorized [id number] Closed Auto-Generate d Referral 08/11/2022 09/10/2023 1 [...] BE BASED ON THE PRIMARY CLINICAL RECORDS. [employer] provides no warranty or guarantee of the accuracy or completeness of information in this document.
[2024-06-10 12:58] LABS: Anion Gap 14.9; Basophils Percent Auto 0.2 % (0.2-2.0); Calcium 9.1 mg/dL (8.5-10.1); Carbon Dioxide 26.3 mmol/L (21.0-32.0); Chloride 103 mmol/L (98-107); Eosinophils Absolute Auto 0.2 10^3/uL (0.0-0.7); Eosinophils Percent Auto 2.9 % (0.9-7.0); Estimated GFR (African America >60 (>=60); Estimated GFR (Non-African Ame 56 (>=60); Glucose 99 mg/dL (74-106); Hematocrit 37.2 % (42.0-54.0); Hemoglobin 12.4 g/dL (14.0-18.0); Immature Granulocytes Abs Auto 0.03 10^3/uL (0.00-0.03); Immature Granulocytes Pct Auto 0.4 % (0.0-0.5); Lymphocytes Absolute Auto 1.9 10^3/uL (1.2-3.8); Lymphocytes Percent Auto 23.1 % (20.5-60.0); Mean Corpuscular HGB Conc 33.3 g/dL (29.9-35.2); Mean Corpuscular Hemoglobin 27.4 pg (25.9-34.0); Mean Corpuscular Volume 82.3 fL (80.0-94.0); Mean Platelet Volume 9.5 fL (9.5-13.5); Monocytes Absolute Auto 0.7 10^3/uL (0.3-0.8); Monocytes Percent Auto 8.4 % (1.7-12.0); Neutrophils Absolute Auto 5.4 10^3/uL (1.4-6.5); Platelet Count 162 10^3/uL (150-450); Potassium 4.2 mmol/L (3.5-5.1); Red Blood Count 4.52 10^6/uL (4.70-6.10); Red Cell Distribution Width 13.4 % (11.0-15.0); Sodium 140 mmol/L (136-145); White Blood Count 8.2 10^3/uL (4.0-11.0)
[2024-06-10 13:22] LABS: INR 0.99; Partial Thromboplastin Time 32.2 sec (22.3-36.2); Prothrombin Time 10.5 sec (9.0-11.6)
== END 2024-06-10 12:14 | disposition home or self-care (01) ==
LOC: PST 12:14
PROVIDERS: PCP Internal Medicine; Visit Provider Urology
DX: Z01.810 Encounter for preprocedural cardiovascular examination (principal); Z01.812 Encounter for preprocedural laboratory examination; N40.1 Benign prostatic hyperplasia with lower urinary tract symptoms; D64.9 Anemia, unspecified; M19.90 Unspecified osteoarthritis, unspecified site; F32.A Depression, unspecified; K21.9 Gastro-esophageal reflux disease without esophagitis; E78.5 Hyperlipidemia, unspecified; G47.30 Sleep apnea, unspecified; G90.A Postural orthostatic tachycardia syndrome [POTS]; N18.9 Chronic kidney disease, unspecified; I12.9 Hypertensive chronic kidney disease with stage 1 through stage 4 chronic kidney disease, or unspecified chronic kidney disease; E11.22 Type 2 diabetes mellitus with diabetic chronic kidney disease
CPT/HCPCS: 80048; 85025; 85610; 85730; 93005

== ENCOUNTER 2024-06-11 14:25 | Outpatient (OUT) | payer OTHER, MEDICARE, SELFPAY ==
--- NOTE | 2024-06-11 15:07 | PM.CN ---
Consult Note: HPI Data of Consult Patient: known to practice within the last 3 years Requesting Physician: Michell Kennedy NP Primary Care Provider: Sp Washington, DO Consult Narrative Narrative: Tariq Real a pleasant 63 year old male presents for follow up on chronic left ankle and right knee pain. Patient continues to have right thigh and knee pain, has a history of femur surgery with hardware and has followed with Orthopedics in the past for knee injections without pain relief. Patient was told he is not a candidate for gel injections in that knee and would like to avoid surgery. His insurance will not cover genicular nerve blocks and RFAs and he cannot afford to pay out of pocket. Patient has not seen podiatry, has hx of left ankle pain post fusion in 1998. cc:: CC: Michell Kennedy NP Review of Systems ROS Status of ROS 10 or more systems reviewed and unremarkable except as noted in history and below Musculoskeletal Reports: joint [facility] Medical History (Updated 06/11/24 @ 15:09 by Michell Kennedy NP) Bone tumor ?D49.2 - Neoplasm of unspecified behavior of bone, soft tissue, and skin (ICD-10) Colonoscopy planned Urine retention ?R33.9 - Retention of urine, unspecified (ICD-10) Prostate nodule ?N40.2 - Nodular prostate without lower urinary tract symptoms (ICD-10) Polyneuropathy ?G62.9 - Polyneuropathy, unspecified (ICD-10) Hyperparathyroidism ?E21.3 - Hyperparathyroidism, unspecified (ICD-10) Kidney stones ?N20.0 - Calculus of kidney (ICD-10) Colon polyps ?K63.5 - Polyp of colon (ICD-10) Gross hematuria ?R31.0 - Gross hematuria (ICD-10) Erectile dysfunction ?N52.9 - Male erectile dysfunction, unspecified (ICD-10) Elevated PSA ?R97.20 - Elevated prostate specific antigen [PSA] (ICD-10) Chronic kidney disease ?N18.9 - Chronic kidney disease, unspecified (ICD-10) BPH with obstruction/lower urinary tract symptoms ?N40.1 - Benign prostatic hyperplasia with lower urinary tract symptoms (ICD-10) ?N13.8 - Other obstructive and reflux uropathy (ICD-10) Adult BMI 33.0-33.9 kg/sq m ?Z68.33 - Body mass index [BMI] 33.0-33.9, adult (ICD-10) Arthritis ?M19.90 - Unspecified osteoarthritis, unspecified site (ICD-10) Anemia ?D64.9 - Anemia, unspecified (ICD-10) Abdominal bloating ?R14.0 - Abdominal distension (gaseous) (ICD-10) Bladder cancer ?C67.9 - Malignant neoplasm of bladder, unspecified (ICD-10) Low back pain ?M54.50 - Low back pain, unspecified (ICD-10) Osteoarthritis ?M19.90 - Unspecified osteoarthritis, unspecified site (ICD-10) Numbness and tingling ?R20.0 - Anesthesia of skin (ICD-10) ?R20.2 - Paresthesia of skin (ICD-10) Depression ?F32.A - Depression, unspecified (ICD-10) Hearing deficit ?H91.90 - Unspecified hearing loss, unspecified ear (ICD-10) Anxiety ?F41.9 - Anxiety disorder, unspecified (ICD-10) Obesity ?E66.9 - Obesity, unspecified (ICD-10) Diabetes ?E11.9 - Type 2 diabetes mellitus without complications (ICD-10) H/O renal calculi ?Z87.442 - Personal history of urinary calculi (ICD-10) Enlarged prostate ?N40.0 - Benign prostatic hyperplasia without lower urinary tract symptoms (ICD-10) Sleep apnea ?G47.30 - Sleep apnea, unspecified (ICD-10) 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) Hypertension ?I10 - Essential (primary) hypertension (ICD-10) High cholesterol ?E78.00 - Pure hypercholesterolemia, unspecified (ICD-10) Surgical History H/O lithotripsy ?Z98.890 - Other specified postprocedural states (ICD-10) History of cystoscopy ?Z98.890 - Other specified postprocedural states (ICD-10) H/O rectal polypectomy ?Z98.890 - Other specified postprocedural states (ICD-10) ?Z87.19 - Personal history of other diseases of the digestive system (ICD-10) H/O transurethral resection of bladder tumor (TURBT) ?Z98.890 - Other specified postprocedural states (ICD-10) ?Z86.03 - Personal history of neoplasm of uncertain behavior (ICD-10) H/O ankle fusion ?Z98.1 - Arthrodesis status (ICD-10) History of cryosurgery ?Z98.890 - Other specified postprocedural states (ICD-10) Family History Father Arthritis Family history of stroke Mother Family history of hypertension Social History Within the past year, how often did you have a drink containing alcohol: never Score interpretation: A score less than 4 is consistent with normal alcohol consumption. Smoking status: Never smoker Second hand tobacco smoke exposure: No Non-prescribed substance use: denies use Previous occupational history: Disability Known occupational exposures/hazards: No Highest level of school completed/degree received: some college, no degree Meds Home Medications and Allergies Home Medications ?Medication ?Instructions ?Recorded ?Confirmed ?Type amlodipine 5 mg tablet 5 mg PO BID 04/27/23 06/10/24 History coQ10 (liposomal ubiquinol) 100 100 mg PO QDAY 04/27/23 06/10/24 History mg/mL oral liquid gabapentin 100 mg capsule 100 mg PO Q12H 04/27/23 06/10/24 History losartan 100 mg tablet 50 mg PO BID 04/27/23 06/10/24 History melatonin 10 mg tablet 15 mg PO DAILY 04/27/23 06/10/24 History metformin 1,000 mg tablet 1,000 mg PO BID 04/27/23 06/10/24 History sertraline 100 mg tablet 100 mg PO BID 04/27/23 06/10/24 History tadalafil 10 mg tablet 20 mg PO DAILY PRN sexual activity 04/27/23 06/10/24 History metoprolol succinate 50 mg 50 mg PO DAILY 10/19/23 06/10/24 History tablet,extended release 24 hr pravastatin 40 mg tablet 40 mg PO DAILY 10/19/23 06/10/24 History insulin aspart 1 sliding scale dose subcut 05/05/24 06/10/24 History (niacinamide)(U-100) 100 unit/mL(3 USEASDIRECTD mL) subcutaneous pen (Fiasp FlexTouch U-100 Insulin) tirzepatide 2.5 mg/0.5 mL 2.5 mg subcut QWEEK 05/05/24 06/10/24 History subcutaneous pen injector (Mounjaro) carvedilol 6.25 mg tablet 6.25 mg PO Q12H 06/10/24 06/10/24 History cyanocobalamin (vitamin B-12) 5,000 mcg PO DAILY 06/10/24 06/10/24 History 5,000 mcg capsule insulin glargine 100 unit/mL (3 45 unit subcut BEDTIME 06/10/24 06/10/24 History mL) subcutaneous pen (Lantus Solostar U-100 Insulin) multivitamin 1 tab PO DAILY 06/10/24 06/10/24 History vitamins A,C,L-yenc-uacwsf 4,296 1 cap PO DAILY 06/10/24 06/10/24 History mcg-226 mg-90 mg capsule Allergies Allergy/AdvReac Type Severity Reaction Status Date / Time morphine Allergy Unknown ITCHING Verified 06/10/24 13:17 pioglitazone [From Actos] Allergy Unknown Rash Verified 06/10/24 13:17 ciprofloxacin [From Cipro] AdvReac Severe Joint Pain Verified 06/10/24 13:17 levofloxacin [From Levaquin] AdvReac Severe Unknown Verified 06/10/24 13:17 exenatide [From Byetta] AdvReac Intermediate Vomiting Verified 06/10/24 13:17 diazepam [From Valium] AdvReac Vomiting Verified 06/10/24 13:17 Exam Constitutional Documenting provider has reviewed patient's vital signs: yes Common normals: no apparent distress, oriented x3, healthy appearing, alert and well nourished General appearance: cooperative Nutritional appearance: overweight HENMT Common normals: normocephalic, hearing grossly normal bilaterally and moist oral mucous membranes Head and scalp: normocephalic Mouth: oral and palatal mucosa normal Eye Common normals: PERRL Pupil: PERRL Neck & C-Spine Common normals: full ROM General: normal visual inspection Chest Common normals: inspection of chest normal Respiratory Common normals: normal respiratory effort, no retractions and no use of accessory muscles Extremity Common normals: normal to inspection Right lower extremity: knee joint (limited ROM, pain with ROM and weight bearing 5/5 strength) Left lower extremity: ankle joint Other: left ankle mild edema, limited ROM Neuro Common normals: oriented x3, CN's II-XII intact bilaterally, moves all extremities, no focal motor deficits, no sensory deficits noted and deep tendon reflexes 2+ bilaterally Sensorium/orientation: alert Motor exam: strength 5/5 throughout and no movement abnormalities noted Psych Common normals: mental status grossly normal, thought process normal, cooperative, affect normal, speech normal and activity/motor behavior normal Speech: normal speech Thought process: normal thought process Results Additional Findings Additional findings: If on a controlled substance or opioids, I have checked an [place] report on this patient and there are no aberrancies noted in the prescribing history.??If on a controlled substance or opioid a drug screen was completed and reviewed within the last year, and if there has not been a drug screen completed we ordered one today to monitor higher risk, state monitored pain medication use. As part of providing excellent, safe, comprehensive care, the following was completed at our patient's visit: 1. A medication reconciliation and review to ensure accurate knowledge of current/active medications, including asking our patients to inform us about any geqr-xke-cniibmn medications or herbal remedies/nutritional supplements/alternative remedies. 2. A review to specifically ensure our patients have had annual screening for screening for depression, screening for tobacco use, and screening for unhealthy alcohol use. For concerning screenings had a discussion with the patient, provided patient education, and recommended follow-up with primary care provider when appropriate. If patient noted with a risk of falling, they received education on strength, gait, and balance training to prevent future risk of falling. Assessment and Plan Assessment and Plan (1) Chronic pain of right knee: (2) Osteoarthritis of right knee: (3) Left ankle pain: (4) Chronic pain syndrome: Plan Podiatry referral for chronic left foot/ankle pain crutches per pt request for chronic pain to alleviate pain and discomfort on moderate to severe pain days f/u as needed
== END 2024-06-11 14:26 | disposition home or self-care (01) ==
LOC: PM 14:26
PROVIDERS: PCP Internal Medicine; Visit Provider Nurse Practitioner
DX: M25.561 Pain in right knee (principal); M25.562 Pain in left knee; M89.8X7 Other specified disorders of bone, ankle and foot; G89.4 Chronic pain syndrome
CPT/HCPCS: G0463

== ENCOUNTER 2024-07-09 10:50 | Outpatient (OUT) | payer OTHER, MEDICARE, SELFPAY ==
--- NOTE | 2024-07-09 | XR_ITS ---
The [address] [address] Patient Name: DAT LOPEZ MRN: [id number] date: 1960 Sex: M Assigned Patient Location: Current Patient Location: Accession/Order Number: [id number] Exam Date: 07/09/2024 10:51 Report Date: 07/11/2024 04:43 At the request of: RU MALAGON Procedure: XR foot LT min 3V PROCEDURE: XR ankle LT min 3V, XR foot LT min 3V HISTORY: LEFT ANKLE PAIN COMPARISON: None. FINDINGS: BONES:Prior fusion of the tibiotalar joint and the distal tibia-fibula syndesmosis via multiple lag screws. Prior ligament/tendon attachment via multiple bone anchors. Prior osteotomy of distal fibula diaphysis with posterior offset of distal fragment one full bone width; no osseous fusion. Marked degenerative changes of the posterior talocalcaneal joint. No significant degenerative joint disease of the midfoot and forefoot. No significant loss of plantar arch. SOFT TISSUES:No visible soft tissue swelling. EFFUSION:None visible. OTHER: Negative. XR/XR foot LT min 3V IMPRESSION: 1. Surgical changes as detailed above; no appreciable hardware failure or acute bone abnormality. No comparison studies. Electronically authenticated by: GEMA OTTO Date: 07/11/2024 04:43
--- NOTE | 2024-07-09 | XR_ITS ---
The [address] [address] Patient Name: DAT LOPEZ MRN: [id number] date: 1960 Sex: M Assigned Patient Location: Current Patient Location: Accession/Order Number: [id number] Exam Date: 07/09/2024 10:51 Report Date: 07/11/2024 04:43 At the request of: RU MALAGON Procedure: XR ankle LT min 3V PROCEDURE: XR ankle LT min 3V, XR foot LT min 3V HISTORY: LEFT ANKLE PAIN COMPARISON: None. FINDINGS: BONES:Prior fusion of the tibiotalar joint and the distal tibia-fibula syndesmosis via multiple lag screws. Prior ligament/tendon attachment via multiple bone anchors. Prior osteotomy of distal fibula diaphysis with posterior offset of distal fragment one full bone width; no osseous fusion. Marked degenerative changes of the posterior talocalcaneal joint. No significant degenerative joint disease of the midfoot and forefoot. No significant loss of plantar arch. SOFT TISSUES:No visible soft tissue swelling. EFFUSION:None visible. OTHER: Negative. XR/XR ankle LT min 3V IMPRESSION: 1. Surgical changes as detailed above; no appreciable hardware failure or acute bone abnormality. No comparison studies. Electronically authenticated by: GEMA OTTO Date: 07/11/2024 04:43
--- OUTSIDE RECORDS SUMMARY | 2024-07-09 11:03 | XMS_ITS | CCD ---
Author Organization [facility] Care Team Providers Care Job Placement Specialist Name Role Phone PROVIDER, UNKNOWN Attending Unavailable PROVIDER, UNKNOWN Admitting Unavailable CARTER GODFREY Referring Unavailable SP CHOWDARY Primary Care Physician [phone] Unavailable Primary Care Provider Unavailrigoberto e Unavailable [...] DR JI Smallwood Consulting Unavailable HALKER ., RAHDA Attending Unavailable HALKER ., RADHA Consulting Unavailable [...] Consulting Unavailable DORKOSKIE, CATRINA Consulting Unavailable LANGENBERG, RENYALDO Consulting Unavailable MCCORNACK, GEMA Consulting Unavailable EPI, [...] Unavailable DO Sp Chowdary Primary Care Provider [phone] MD Pelon Coles Attending Provider [phone] Sp hCowdary Primary Care Unavailable Dejon WARNER, Alfonzo Adrian Attending Unavailabl e [place] II, Alfonzo Adrian Admitting Unavailabl e BallSp Primary Care Unavailable [place] II, Alfonzo Adrian Attending Unavailabl e [place], Alfonzo Adrian Admitting Unavailabl e Coles, [...] Translations: [diazepam] Drug Allergy Nausea and vomiting [facility] exenatide (1 source) exenatide; Translations: [exenatide] Drug Allergy Nausea and vomiting [facility] Opioid Agonists (1 source) Morphine; Translations: [morphine] Drug Allergy 11-05-20 14 Itching (finding) [facility] Thiazolidinediones (glitazones) (1 source) pioglitazone; Translations: [pioglitazone] Drug Allergy Eruption of skin (disorder) [facility] (20 sources) diazePAM; Translations: [DIAZEPAM] Drug Allergy 02-26-20 17 Vomiting, GI Upset [facility] (4 sources) exenatide; Translations: [BYETTA] Drug Allergy 02-27-20 17 Vomiting [facility] Repository (20 sources) pioglitazone; Translations: [PIOGLITAZONE] Drug Allergy 02-27-20 17 Eruption of skin (disorder), Other, Swelling [facility] Repository (20 sources) exenatide; Translations: [exenatide] Drug Allergy 10-22-20 13 Vomiting [facility] (15 sources) Morphine; Translations: [morphine] Drug Allergy 11-05-20 14 Other (qualifier value), Itching (finding) [facility] (3 sources) diazePAM; Translations: [Valium] Drug Allergy [facility] Rep[facility] (1 source) Morphine Drug Allergy [facility] (3 sources) pioglitazone; Translations: [Actos] Drug Allergy [facility] (9 sources) Vancomycin Drug Allergy 01-10-20 24 Unknown, Unknown Reaction [facility] (3 sources) patient allergy list reviewed by nurse or physicia Propensity to adverse reactions 07-08-20 Comment:Done [employer] Other (1 source) Unable to Assess Drug allergy (disorder) 04-10-20 [facility] Repository (2 sources) Byetta Prefilled Pen; Translations: [Byetta Prefilled Pen] Propensity to adverse reactions (disorder) [facility] Repository Medications Current Medications Medication Drug [...] on above: Take 1 capsule by mo [facility] three times daily for 3 days. ciprofloxacin 500 mg oral tablet (6 sources) Quinolone Antimicrobial Start: 05-05-20 End: 05-19-20 take 1 tablet by mouth every twelve hours Cipro 500 mg Tab 500 mg = 1 tab(s), Oral, q12hr, X 14 day(s), # 28 tab(s), Refills(s) 0, Pharmacy: [facility]/pharmacy #[id number], 177, cm, 05/05/24 11:12:00 EDT, Height/Length Dosing, 102, kg, 05/05/24 11:12:00 EDT, Weight Dosing Start Date: 05/05/24 Stop Date: 05/19/24 Status: Ordered Start: 10-02-2023 End: 10-09-2023 Cipro 500 mg Tab 500 mg = 1 tab(s), Oral, q12hr, Start 3 days prior to procedure, X 7 day(s), # 14 tab(s), Refills(s) 0, Pharmacy: [facility]/pharmacy #[id number], 177, cm, 06/12/23 16:16:00 EDT, Height/Length Dosing, 111, kg, 12/18/22 15:22:00 EST, Weight Dosing Start Date: 10/02/23 Stop Date: 10/09/23 Status: Ordered Start: 03-13-2022 take 1 tablet by [facility] once daily Cipro 500 mg Tab 500 mg = 1 tab(s), Oral, Daily, take 1 day prior to procedure and 1 tab after procedure, # 2 tab(s), Refills(s) 0, Pharmacy: [facility]/pharmacy #[id number], 177, cm, 03/13/22 15:23:00 [...] 11/01/17 Status: Ordered take [address] [facility] once daily at bedtime Gabapentin 100 [...] activity, # 30 tab(s), Refills(s) 3, Pharmacy: [facility]/pharmacy #[id number], 177, cm, 12/17/23 11:33:00 EST, Height/Length Dosing, 104, kg, 12/17/23 11:33:00 EST, Weight Dosing Start Date: 12/17/23 Status: Ordered tamsulosin hydrochloride 0.4 mg oral capsule (3 sources) alpha-Adrenergic Nciolasa Start: 12-11-19 take 1 capsule by mouth [...] on above: Take 1 capsule by mo [facility] daily at bedtime. Tirzepatide (3 sources) [...] Comment on above: Take [address] [facility] twice daily. hydrALAZINE hydrochloride 10 mg [...] day(s), # 180 tab(s), Refills(s) 3, Pharmacy: [facility]/pharmacy #[id number], 177, cm, 12/18/22 15:22:00 [...] 11/01/17 Status: Ordered take [address] [facility] once daily Metoprolol Succinate 50 MG [...] # 30 tab(s), Refills(s) 11, Pharmacy: [facility] [id number], 177, cm, 06/12/23 16:16:00 EDT, Height/Length Dosing, [...] # 30 tab(s), Refills(s) 3, Pharmacy: [facility] [id number], 177, cm, 03/13/22 15:23:00 EDT, Height/Length Dosing,... 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; Translations: [Type 2 diabetes mellitus without complication, with long-term current use of insulin (HCC)] Onset: 2 Episodic Other aftercare (1 source) Long-term current use of drug therapy; Translations: [Other long term care administrator (current) drug therapy] Episodic Other aftercare (3 sources) High risk drug monitoring status; Translations: [terminal superintendent (current) use of opiate analgesic] Episodic Other aftercare (8 sources) Long-term current use of insulin; Translations: [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] 01-08-2024 Episodic Other [...] 11-03-2015 Episodic Other aftercare (1 source) Other long term care administrator (current) drug therapy; Translations: [OTH [facility] CURRENT DRUG THERAPY] Onset: 05-29-2022 Episodic Other aftercare (1 source) prison (current) use of oral hypoglycemic drugs; Translations: [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 ORAL HYPOGLYCEMIC DX] Onset: 05-08-2022 Episodic [...] Basophils (Bld) [#/Vol] 0.0 10 3/uL 0.0-0.1 [facility] Basophils/100 WBC Auto (Bld) on 05-23-2024 Basophils/100 WBC (Bld) 0.4 % 0.2-2.0 [facility] Eosinophils/100 WBC Auto (Bl d)on 05-23-2024 Eosinophils/100 WBC (Bld) 5.9 % 0.9-7.0 [facility] Erythrocyte distribution wid th Auto (RBC) [Ratio]on 05-23-2024 Erythrocyte distribution width (RBC) [Ratio] 13.7 % 11.0-15.0 [facility] Estimated glomerular filtrat ion rate (GFR) non- Americanon 05-23-2024 GFR/1.73 sq M.predicted among non-blacks MDRD (S/P/Bld) [Vol rate/Area] 48 mL/min/{1.73_m2} Low >=60 [facility] Hematocrit Auto (Bld) [Volum e fraction]on 05-23-2024 Hematocrit (Bld) [Volume fraction] 38.2 % Low 42.0-54.0 [facility] Hemoglobin [Mass/volume] in Bloodon 05-23-2024 Hemoglobin (Bld) [Mass/Vol] 12.6 g/dL Low 14.0-18.0 [facility] INR in Platelet poor plasma by Coagulation assayon 05-23-2024 INR Coag (PPP) [Relative time] 1.02 {INR} [facility] Comment on above: DESIRED INR:2.0-3.0 CONDITIONS NOT LISTED BELOW2.5-3.5 FOR PROSTHETIC HEART VALVE REPLACEMENT2.5-3.5 RECURRENT THROMBOSIS Laboratory - Chemistry and C hemistry - challengeon 05-23-2024 Calcium [Mass/Vol] 8.5 mg/dL 8.5-10.1 [facility] Chloride [Moles/Vol] 101 mmol/L 98-107 [facility] CO2 [Moles/Vol] 24.0 mmol/L 21.0-32.0 [facility] Creatinine [Mass/Vol] 1.49 mg/dL High 0.70-1.30 [facility] GFR/1.73 sq M.predicted MDRD (S/P/Bld) [Vol rate/Area] 58 mL/min/{1.73_m2} Low >=60 [facility] Glucose [Mass/Vol] 243 mg/dL High 74-106 [facility] Potassium [Moles/Vol] 4.3 mmol/L 3.5-5.1 [facility] Sodium [Moles/Vol] 137 mmol/L 136-145 [facility] Urea nitrogen [Mass/Vol] 26.0 mg/dL High 7.0-18.0 [facility] Urea nitrogen/Creatini ne [Mass ratio] 17.4 mg/mg [facility] Bilirubin Ql (U) COLOR INTERFERENCE Abnormal NEGATIVE [facility] Ketones Ql (U) COLOR INTERFERENCE mg/dL Abnormal NEGATIV E [facility] Specific gravity (U) [Rel density] >=1.030 Abnormal 1.005-1.025 [facility] Laboratory - Hematology and Cell countson 05-23-2024 Immature granulocytes/100 WBC (Bld) 0.3 % 0.0-0.5 [facility] Laboratory - Specimen inform ationon 05-23-2024 Appearance (U) TURBID Abnormal CLEAR [facility] Comment on above: Clotted Color (U) DK. RED YELLOW [facility] Laboratory - Urinalysison Leukocyte esterase Test strip Ql (U) COLOR INTERFERENCE Abnormal NEGATIVE [facility] Mucus Ql (Urine sed) NONE SEEN NONE SEEN [facility] Nitrite Ql (U) COLOR INTERFERENCE [facility] Protein Ql (U) COLOR INTERFERENCE mg/dL Abnormal NEG/TRA CE [facility] Leukocytes [#/volume] correc bhanu for nucleated erythrocytes in Blood by Automated counon 05-23-2024 WBC corrected for nucl RBC Auto (Bld) [#/Vol] 7.0 10 3/uL 4.0-11.0 [facility] Lymphocytes Auto (Bld) [#/Vo l]on 05-23-2024 Lymphocytes (Bld) [#/Vol] 1.9 10 3/uL 1.2-3.8 [facility] Lymphocytes/100 WBC Auto (Bl d)on 05-23-2024 Lymphocytes/100 WBC (Bld) 26.7 % 20.5-60.0 [facility] MCH Auto (RBC) [Entitic mass ]on 05-23-2024 MCH (RBC) [Entitic mass] 26.9 pg 25.9-34.0 [facility] MCHC Auto (RBC) [Mass/Vol]on 05-23-2024 MCHC (RBC) [Mass/Vol] 33.0 g/dL 29.9-35.2 [facility] MCV Auto (RBC) [Entitic vol] on 05-23-2024 MCV (RBC) [Entitic vol] 81.6 fL 80.0-94.0 [facility] Monocytes Auto (Bld) [#/Vol] on 05-23-2024 Monocytes (Bld) [#/Vol] 0.4 10 3/uL 0.3-0.8 [facility] Monocytes/100 WBC Auto (Bld) on 05-23-2024 Monocytes/100 WBC (Bld) 5.7 % 1.7-12.0 [facility] Neutrophils Auto (Bld) [#/Vo l]on 05-23-2024 Neutrophils (Bld) [#/Vol] 4.3 10 3/uL 1.4-6.5 [facility] Neutrophils/100 WBC Auto (Bl d)on 05-23-2024 Neutrophils/100 WBC (Bld) 61.0 % 43.0-75.0 [facility] No Panel Informationon 05-23 Eosinophils # (Auto) 0.4 10 3/uL 0.0-0.7 [facility] Immature Granulocyte # (Auto) 0.02 10 3/uL 0.00-0.03 [facility] Urine Bacteria NONE SEEN #/HPF NONE SEEN [facility] Urine Culture Reflexed NO [facility] Urine Glucose (UA) COLOR INTERFERENCE mg/dL Abnormal NEGATIVE [facility] Urine Microscopic Review YES [facility] Urine Occult Blood COLOR INTERFERENCE Abnormal NEGATIVE [facility] Urine Other Casts NONE SEEN #/LPF NONE SEEN [facility] Urine Other Crystals None Seen #/HPF None Seen [facility] Urine pH COLOR INTERFERENCE Abnormal 5.0-9.0 [facility] Urine RBC >100 #/HPF Abnormal 0-2 [facility] Urine Squamous Epithelial Cells NONE SEEN #/LPF NONE/RARE [facility] Urine Urobilinogen COLOR INTERFERENCE EU/dL Abnormal 0.2-1.0 [facility] Urine WBC 0-2 #/HPF Abnormal NONE SEEN [facility] Platelet mean volume Auto (B ld) [Entitic vol]on 05-23-2024 Platelet mean volume (Bld) [Entitic vol] 9.5 fL 9.5-13.5 [facility] Platelets Auto (Bld) [#/Vol] on 05-23-2024 Platelets (Bld) [#/Vol] 198 10 3/uL 150-450 [facility] Prothrombin time (PT)on PT Coag (PPP) [Time] 10.8 s 9.0-11.6 [facility] RBC Auto (Bld) [#/Vol]on RBC (Bld) [#/Vol] 4.68 10 6/uL Low 4.70-6.10 [facility] Serum or plasma anion gap de terminationon 05-23-2024 Anion gap [Moles/Vol] 16.3 mmol/L [facility] Ambulatory Visit Summaryon 0 05-20-2024 Ambulatory [...] AM EDT With: Where: [facility] Invalid Interpretation Code [address] [place] [address]- \.br\ Sunday 10:30 AM EST \.br\ With: SANKET PRECIADO, Pelon Mjuica\.br\ Where: [facility] Coding Summary.on 05-13-2024 Coding Summary. [id number]+PG hlYWQ +[id number] TElOSywgQVBQTElOSyIgbmFtZ L0xfJBeCNSi IC8+AT6kWFHnVkpfpWXhw9H6i ZW9U65xhf7jEYthbYB8RKJwHf Mqvttdf0sgaTo4FBmqDhuvJwM t WHAdlU36TNB9vL87Dq51rVKvj KGco4zavXe7YfYqUZZgGAM2uW dvVUiiu4XnYUMyL26wmHIep2R 6 PEBjdFzecUKsLzFqvEF7kG1lY Qaeyiboh4ilfgptLxw4jv67mJ Lyn3Q6kII4V4AibwY8YGEfpGH g ZrewjUOFlM7avnzqj2nnglgbH hKtQWRyBLn6CAf4OXNidXvtPo JzBU60TEY1LVXegdCsO0ZoAVG s vSrxBnH0f6P7Wa7PT5HYRzcfJ 1VNTUFSWTwvdGQ+CZ24wx91A6 CsLkfkJhz6BDWgUJQ8mWB6zF3 n RDDrVOgab6T6uQD1N7MvusUvl b8im7utRSEvALqhD96zlFQlh6 S8BFPbuRP7CPGheEskUzZnwQ7 3 Oyc+JCWoeNnek6ApJlnov3bga 9djaHq6LmaiKLAhgzRkwImgZW B2a0OaZa2oJKZkxWT2cPY9zU2 i SbSgQiQ3EPojD412VrBqvVUvX aipI66yN3DzqRJ+EQAtKzj2XC UymAbhDR0gD4CfWQDplcztlZV m pQjrRU1iCUDrcjgtFMXcqI5cR ZLvN5k0RsIcDpC4QWvcW8UdEG UjpbjmXk92cE1mWlDoUiX2OXl u H7LfmmY7ZRFhcLCkDHnbODR3B 19fc4U4HFDhBFYyORF3yLE4jX 1hbGlnbjogbGVmdDsgdmVydGl j QDufIYmlX200OOFngBwgZuUuA GluZyBEYXRlOiAgMDYvMjUvMj AyNDwvdGQ+OLWnUQD9hDqvNGI n rMDhSGfhHo0eoVswtHviWE7rY FIvlromTEKjrU4vRPRftKXurE ixEG1qDFXlssglm438KbAaCDQ 0 NQZldYUcK9TttG8hEiHoJKEsS RRyJ2QpqWHdDQvzL428TEciLo A3JJHumaYhH5ZkCYUciRuoCsU 0 b2T9Iw4Wy5LxtswgL8BpnIWdS jOtOllbITd7K3QtDyovnBG+PC 60KTHkIU74OJo3DCE5sXbyBPb i RFYwO6BbxT5kXaIqYWNhIAThO yc+PHRhYmxlIHdpZHRoPScxMD WyWpViqKelAC0zWh1wVQMiJUU v yAgtbCMmNeYgy9gsVYVhEIeyQ A1zvQmaH2NgcUD4RFSag3r8Uq 71G19hI7YpxVS+CDDnxYJ1tJN 0 pP6yKcWnZxW1ZQwvB417MaOqp YFsHfdgi5hnp8udsKx8WqU4YW KargDzxOcqQFZ5m6GiHo58Q62 s IHdpZHRoPSIxNSUiIHZhbGlnb z9pbL5nLe7+ISNviDP1fBG7qH 1wYeBsUpN3CGvxZ657KyNgfSQ v Dwkzf2gon2ivaTh1QkQvMMWuy hEtiLebCUL0l7KgCq92O3CppF yky7TxWlv6jj99yIXef3U5zWV 9 J9ScWPRtnwxiwZEbsRklVI6yP VRznhumUMOpcW7wNKSiE8z9Fd JrFjG8CEohH8WxghN6SKWqjNU g IDOafSBUqE8hgayqc6ylzzjtF aTnYMTyLTm2EMw9HBTjpSbuSj PwLQS2LfA9IXU0eMXbbL8iyXf n asfvhC4jSnn+STM7mDUbtJLSF D4cIlugqXY+GHWvJZV6rEboRH uwCVEegF1vYFNcA2r5QeYzWzX 1 SInsS6OfsuJ4CDWvvZMrKXKru BXNoM1edmvex2mrppwvEwNoAS OvFFc8IDu5KAXedIkvJsNyZIR 0 GgO5LXR2hKLtcN1nsCvhqvkno G9wOyc+XubkxOqdKGW6KSf8G6 XoIyi7WJXyjSzbID1knYPdZHa u Qp4drUfalDylDR9eEJIhfibst 382QrWvi2aiAZWjyDKiTAguBK T7A53vc9W3VKWzIVAlPNL7jQG 4 dM3hyTatlpdruATacWnnnhVog DmiNQpuAPwvL364PXIvqSqlYg TwZUt1H3XyFeq6LGNuhJjjZI6 n sLAlAAbwWd0eiMpxpUsuDE0gD GTzamwcj314CiHix7knDKKacE CxLApvVCH6L02wm8X5AHYiLFU w QXN9wPU8lD4hxCwkvovbpMXny ZhwcbXgaLhqAZwlUWcyO099LW AniNabWtWsdIr6C6DxYvx2PUQ z uAyfXW4zrSNmWBijUh0jiVnmv QjcSC9oNAMcjdxic720KkEpr5 zsFMUulZDuTClmGHB6M54tq6Y 6 MFCaPMXsOQL9pKQ2yU0suPxgs jogbGVmdDsgdmVydGljYWwtYW fsA056ZITkrMmaQkWtnXdgnzU g SRjcQCl5L1WwRhpjmVZ+PC90Y JGpVV59qVOegDZsb1pjzYb7To WsJWQpROT2jJfxGErvx6BiYOF t O92rsKCyh1H7COQkdPhldSVdV lRxyRG7nW5xMNhmvwdgn5fymo fgOqokj5lmby70nT83K21tUYy p QRJhCIDgGUPgEKTzcGvosw7fc G9wIi8+QMAamVF0dPK0dD1tZO PaDsD8WPkcT874AyUwxDJxJtl j l9vuo7aahQy7UhR2ZJNghjSyy DzeNXH0o6PgUa57A19nRUooSP GvGVTsQTCrUCIdwYhcfa0cdQ8 w Ii8+MTUplMR9rQM0fF5kGwPyK eX9BFbvZ472DgFpiZMjCuhvE8 4wP6NbgQO+WQYuFht6CABulJq s YR1uuJBnMJgmQh0qZCK1OeNbV gWuXAyvK2EvILPewnysndcxgM J0PZBmIXJspH44Cg0qcJrwKGX w lJQPyT0ddydgx4cdvhcaQwZfZ PZcXEl1MSz3SKGfwNugNcCsES Q7HcE3NMR2eVIlaU9epEbqxpb g kC2cM8JyLKCaqnfdRr86kU7tT wEqQlN6RFwlCjz+QURBTVMsIF KCVVJWCZSCHS07VF64tOPdo6V 5 eTC9E3TpGGPucaerkzwlzIQ7O JNhUMGzzW83lPKcAZxzKi1or7 D3p329RLNpKYEuoG58Aw0ezHl g BWNjpXRGiC5wpcerg3dwackgR lLaPMLzKHo6QPl9TKSksHgeAa LtAJV1XrG9HCJ2tDDqzI9rdNf n tjdevV8aZcg+PWCuGREhUXd9I jwvdGQ+UVFxOSP6zQnsVHijQK DymW3rEDUaZ2d4NjJbJjT7REt u F2WuFMTwnlzsAt31yE6fIoKuZ fA9AIbrD8DmmtT3SNBmuMRcAX unWRN0B56lx2Z0MBTyUHNaWCP 7 tBY0jL5fcWarofoatVPjcGila vEezGdiQKcdOQnxN189SNIxnT rdPdWvOGqeVZPsCQ28SR73rOO g g4U5vBO6Z1SwHPQkiivoveyyc UZ8DUGoZONmyI12dQCxUSpaDe 8vc6W9z057GZFiPZEhoZ30Ue2 u rRxcZWQniLYEjC3efzmcq3soq uysTeJnFNKsGDa7AGp2YNIrrB ztRyBgRQZ1OkN0LJZ7fHNmhV4 h kPnylsvkaI5mFzx+TWFsZTwvd GQ+FHCgUHI6yXxySGtuDCEgpP 3jKYWlF3x3PoTeZrM2VCfbW2L h WSHmtrxuZw94gP7hCmBtUfM7Q GmoI2GugaD3BWKdySXaSDksSB I0F98di4A9DDKyZDQxBGB2tOL 4 hR3iuSfwbdwuvJPskQgevgHrt SgaIOzzYSoaC081GQCrsYfjJi rjYlXZqt5pBA9wHqzcoQZ+PC9 0 un50U1SyLtloHnr2RRToEOX8p FY5hA3qCSAtSCixw2X7nYE7H3 DsauXvrg6po6lyBGDvBZdmF96 s sJErx5I7LKDehBJ3CQYjcCwrJ nDaeO83Zet+YMEqlSnyz8DaZu wkt5lcp8shmZp4XqUnAUPsssW s yQmyQYN5f1JlIp74Y89kLTfwZ XAkQAWaBJTxSXXueHfzgl0spK 9wIi8+RSDyuYR5oTI1wL2aYpT l EmN2URpcB070HbJjnDYcCdnbe 2oft7pgtKl1KqMhDRUlraYfzM rxQMQ5h6TbDb02E4LtvUvgg9J w Tcr8qa86pSEqi4M1lSL6D2PrK MEuaqjfoAWlpRdnKA2oOSZomw giGAEupI1fLMJrC5f8FoZaLgA 1 VMvwL9RbfjD1TTZxdQYrRFGek VYCxH3bxtuwh8vspuoaPvEnMO ZeDTz0GOy2HMAebRnjTxBoTKJ 0 ZxP6NUO1wRQffB7twArdviewt G9wOyc+FXd4l5itgKVuIR1bbL Y3FK04US10bTZih6R2kKU3M5H h LEPwyngemwpsoIH0WJQgEDAun O59Fl1kpCfzCf0bVFJqVZE5JV CuzBLtU9ZutA7iKiYoSZTpLXK w O7NadVXmWJrdU377EPzyLkW1D ASupdGuF2BtUQCkhEiuEzT8p1 Z2Zt1ISX96RZ07CN81bZFlt3H 5 iCD6U3PdCRZbobgaddeslOA8V RXuDSPzyY90Tw7qiNzaMt7zOM ErHGU8ZREmeEUqV3DrzB4tVxR j OSJjNRVhH1LgrVDjIUxpK736Y VceXrJ5SSJomuPgI6LxEBGuuQ tqNqH8b9P3Oo2XTe62HB12MY6 8 cEAil9R4zVE7G2EfJPFelbkca herhAK8TZQfFWBfdS06Hl4czN umSh6uDRYyCQU6CGFpvPDoJ0W v lT7nStTzBJKvSBMcI7JesCOnD OtsS665JCzzPqS4LIJowwChX0 KxKQBftNgmOuB7m8J1Ka6OQEc l uye8E0CiUljtyCY+CZ60XRLtW D51gXWsoEDbm2rsjVw7AcAlIY ViIIP1tVhcOJcyr8TxACPjY57 s iPBlz7R4MLLyv (more content not included)... Normal [facility] RAD - CT Reporton 05-13-2024 RAD - CT Report [id number] Normal [facility] Estimated glomerular filtrat ion rate (GFR) non- Americanon 05-12-2024 GFR/1.73 sq M.predicted among non-blacks MDRD (S/P/Bld) [Vol rate/Area] 55 mL/min/{1.73_m2} Low >=60 [facility] Laboratory - Chemistry and C hemistry - challengeon 05-12-2024 Creatinine [Mass/Vol] 1.32 mg/dL High 0.70-1.30 [facility] GFR/1.73 sq M.predicted MDRD (S/P/Bld) [Vol rate/Area] mL/min/{1.73_m2} >=60 [facility] Reminderson 05-12-2024 Reminders - From: Nelida [...] for 1 year cysto/fish/cytol (bt ck) Normal [facility] Insurance Correspondenceon 0 05-08-2024 Insurance Correspondence [id number] [facility] C Urineon 05-07-2024 Bacteria identified Cx [...] Locations R1: This test was performed at: [facility], [address] [place] [address], [facility] , , [facility] Comment on above: Performed By: #### [id number] #### [facility] [address] [place] [address] Consent for Procedure/Surger yon 05-06-2024 Consent for Procedure/Surgery [id number] [facility] Ambulatory Visit Summaryon 0 05-05-2024 Ambulatory [...] Pelon COLES MD Where: [facility] Patient Educationon 05-05-20 24 [...] these instructions at home: Medicines ? Take [id number]-bzmkuke and prescription medicines only as told by [...] Where to find more information ? [employer] [place] [employer] and Digestive and Kidney Diseases: (more content not included)... Normal [facility] Office/Clinic Noteon 05-05-2024 Urology Office/Clinic [...] 2 wk. SEs discussed. Rx sent to [facility]. -Will schedule cysto. The risks and benefits [...] cancer (Z85.51: (more content not included)... Normal [facility] Comment on above: Result Comment: Elec tronically Signed By: SANKET PRECIADO, Pelon Mujica\.br\Date and Time Signed: 05/05/24 12:21 EDT\.br\Electronically Co-Signed By: Jocelnye Moore\.br\Date and Time Co-Signed: 05/05/24 12:20 EDT Estimated glomerular filtrat ion rate (GFR) non- Americanon 02-22-2024 GFR/1.73 sq M.predicted among non-blacks MDRD (S/P/Bld) [Vol rate/Area] 40 mL/min/{1.73_m2} >=60 [facility] - Chemistry and C hemistry - challengeon 02-22-2024 Calcium [Mass/Vol] 9.4 mg/dL 8.5-10.1 [facility] Chloride [Moles/Vol] 103 mmol/L 98-107 [facility] CO2 [Moles/Vol] 27.0 mmol/L 21.0-32.0 [facility] Creatinine [Mass/Vol] 1.73 mg/dL 0.70-1.30 [facility] GFR/1.73 sq M.predicted MDRD (S/P/Bld) [Vol rate/Area] 49 mL/min/{1.73_m2} >=60 [facility] Glucose [Mass/Vol] 192 mg/dL 74-106 [facility] Potassium [Moles/Vol] 4.1 mmol/L 3.5-5.1 [facility] Sodium [Moles/Vol] 140 mmol/L 136-145 [facility] Urea nitrogen [Mass/Vol] 25.0 mg/dL 7.0-18.0 [facility] Urea nitrogen/Creatini ne [Mass ratio] 14.5 mg/mg [facility] Serum or plasma anion gap de terminationon 02-22-2024 Anion gap [Moles/Vol] 14.1 mmol/L [facility] Basophils Auto (Bld) [#/Vol] on 01-26-2024 Basophils (Bld) [#/Vol] 0.0 10 3/uL 0.0-0.1 [facility] Basophils/100 WBC Auto (Bld) on 01-26-2024 Basophils/100 WBC (Bld) 0.4 % 0.2-2.0 [facility] Cholesterol in LDL Calc [Mas s/Vol]on 01-26-2024 Cholesterol in LDL [Mass/Vol] 72.0 mg/dL [facility] Comment on above: <100 mg/dl [id number] 0-129 mg/dl NEAR OR ABOVE [id number] mg/dl BORDERLINE PTUA654-643 mg/dl HIGH>190 mg/dl VERY HIGH Cholesterol in VLDL Calc [Ma ss/Vol]on 01-26-2024 Cholesterol in VLDL [Mass/Vol] 27.8 mg/dL [facility] Eosinophils/100 WBC Auto (Bl d)on 01-26-2024 Eosinophils/100 WBC (Bld) 5.1 % 0.9-7.0 [facility] Erythrocyte distribution wid th Auto (RBC) [Ratio]on 01-26-2024 Erythrocyte distribution width (RBC) [Ratio] 13.6 % 11.0-15.0 [facility] Estimated glomerular filtrat ion rate (GFR) non- Americanon 01-26-2024 GFR/1.73 sq M.predicted among non-blacks MDRD (S/P/Bld) [Vol rate/Area] 51 mL/min/{1.73_m2} >=60 [facility] Globulin Calc (S) [Mass/Vol] on 01-26-2024 Globulin (S) [Mass/Vol] 3.4 g/dL [facility] Glucose mean value [Mass/vol ume] in Blood Estimated from glycated hemoglobinon 01-26-2024 Average glucose Estimated from glycated hemoglobin (Bld) [Mass/Vol] 131 mg/dL [facility] Hematocrit Auto (Bld) [Volum e fraction]on 01-26-2024 Hematocrit (Bld) [Volume fraction] 43.6 % 42.0-54.0 [facility] Hemoglobin [Mass/volume] in Bloodon 01-26-2024 Hemoglobin (Bld) [Mass/Vol] 14.0 g/dL 14.0-18.0 [facility] - Chemistry and C hemistry - challengeon 01-26-2024 Albumin [Mass/Vol] 3.9 g/dL 3.4-5.0 [facility] ALP [Catalytic activity/Vol] 92 U/L 46-116 [facility] ALT [Catalytic activity/Vol] 48 U/L 16-63 [facility] AST [Catalytic activity/Vol] 35 U/L 15-37 [facility] Bilirubin [Mass/Vol] 0.5 mg/dL 0.2-1.0 [facility] Calcium [Mass/Vol] 8.9 mg/dL 8.5-10.1 [facility] Chloride [Moles/Vol] 104 mmol/L 98-107 [facility] Cholesterol [Mass/Vol] 135 mg/dL <=200 [facility] Cholesterol in HDL [Mass/Vol] 36 mg/dL 40-60 [facility] Comment on above: > or =60 mg/dl - LOW CARDIOVASCULAR RISK<40 mg/dl - HIGH CARDIOVASCULAR RISK CO2 [Moles/Vol] 25.0 mmol/L 21.0-32.0 [facility] Creatinine [Mass/Vol] 1.42 mg/dL 0.70-1.30 [facility] GFR/1.73 sq M.predicted MDRD (S/P/Bld) [Vol rate/Area] mL/min/{1.73_m2} >=60 [facility] Glucose [Mass/Vol] 134 mg/dL 74-106 [facility] Potassium [Moles/Vol] 4.5 mmol/L 3.5-5.1 [facility] Protein [Mass/Vol] 7.3 g/dL 6.4-8.2 [facility] Sodium [Moles/Vol] 139 mmol/L 136-145 [facility] Triglyceride [Mass/Vol] 139 mg/dL <=150 [facility] Urea nitrogen [Mass/Vol] 20.0 mg/dL 7.0-18.0 [facility] Urea nitrogen/Creatini ne [Mass ratio] 14.1 mg/mg [facility] [facility] - Hematology and Cell countson 01-26-2024 HbA1c (Bld) [Mass fraction] 6.2 % 4.5-6.2 [facility] Comment on above: ADA RECOMMENDED LIMI T 4.0 - 6.0ADA THERAPEUTIC TARGET < 7.0ACTION SUGGESTED> 7.0 Immature granulocytes/100 WBC (Bld) 0.4 % 0.0-0.5 [facility] Leukocytes [#/volume] correc bhanu for nucleated erythrocytes in Blood by Automated counon 01-26-2024 WBC corrected for nucl RBC Auto (Bld) [#/Vol] 6.8 10 3/uL 4.0-11.0 [facility] Lymphocytes Auto (Bld) [#/Vo l]on 01-26-2024 Lymphocytes (Bld) [#/Vol] 2.0 10 3/uL 1.2-3.8 [facility] Lymphocytes/100 WBC Auto (Bl d)on 01-26-2024 Lymphocytes/100 WBC (Bld) 28.9 % 20.5-60.0 [facility] MCH Auto (RBC) [Entitic mass ]on 01-26-2024 MCH (RBC) [Entitic mass] 26.9 pg 25.9-34.0 [facility] MCHC Auto (RBC) [Mass/Vol]on 01-26-2024 MCHC (RBC) [Mass/Vol] 32.1 g/dL 29.9-35.2 [facility] MCV Auto (RBC) [Entitic vol] on 01-26-2024 MCV (RBC) [Entitic vol] 83.7 fL 80.0-94.0 [facility] Microalbumin [Mass/volume] i n Urineon 01-26-2024 Albumin DL <= 20 mg/L (U) [Mass/Vol] 7.8 mg/dL <=30.0 [facility] Monocytes Auto (Bld) [#/Vol] on 01-26-2024 Monocytes (Bld) [#/Vol] 0.5 10 3/uL 0.3-0.8 [facility] Monocytes/100 WBC Auto (Bld) on 01-26-2024 Monocytes/100 WBC (Bld) 7.2 % 1.7-12.0 [facility] Neutrophils Auto (Bld) [#/Vo l]on 01-26-2024 Neutrophils (Bld) [#/Vol] 4.0 10 3/uL 1.4-6.5 [facility] Neutrophils/100 WBC Auto (Bl d)on 01-26-2024 Neutrophils/100 WBC (Bld) 58.0 % 43.0-75.0 [facility] No Panel Informationon 01-25 Eosinophils # (Auto) 0.4 10 3/uL 0.0-0.7 [facility] Immature Granulocyte # (Auto) 0.03 10 3/uL 0.00-0.03 [facility] Platelet mean volume Auto (B ld) [Entitic vol]on 01-26-2024 Platelet mean volume (Bld) [Entitic vol] 10.0 fL 9.5-13.5 [facility] Platelets Auto (Bld) [#/Vol] on 01-26-2024 Platelets (Bld) [#/Vol] 175 10 3/uL 150-450 [facility] RBC Auto (Bld) [#/Vol]on RBC (Bld) [#/Vol] 5.21 10 6/uL 4.70-6.10 [facility] Serum or plasma albumin/glob ulin mass ratioon 01-26-2024 Albumin/Globulin [Mass ratio] 1.1 {ratio} [facility] Serum or plasma anion gap de terminationon 01-26-2024 Anion gap [Moles/Vol] 14.5 mmol/L [facility] Serum or plasma total choles terol/high density lipoprotein (HDL) cholesterol mass pebbles 01-26-2024 Cholesterol.total /Cholesterol in HDL [Mass ratio] 3.8 {ratio} [facility] Comment on above: 3.3 - 4.4 [...] Pelon COLES MD Where: [facility] Patient Educationon 12-17-19 24 Patient [...] these instructions at home: Medicines ? Take kzsy-naf-coowixn and prescription medicines only as told by [...] include cig (more content not included)... Normal [facility] Urology Office/Clinic Noteon 12-17-2023 Urology Office/Clinic [...] [facility] [address] [place] [address]- [phone] Additional Instructions: 1 yr w/ PSA and [...] Benign n (more content not included)... Normal [facility] Comment on above: Result Comment: Elec tronically Signed By: Pelon COLES MD\.br\Date and Time Signed: 12/17/23 12:57 EST\.br\Electronically Co-Signed By: Sahra Daugherty\.br\Date and Time Co-Signed: 12/17/23 12:55 EST Prostate Histology ([facility]) on 12-07-2023 Prostate Histology Diagnosis Info Invalid Interpretation Code [facility] Comment on above: Result Comment: A:Pr ostate,Left Lateral Base:Needle Biopsy Interpretation - - Benign prostatic tissue (see comment). MicroScopic Description - B:Prostate,Left Lateral Mid:Needle Biopsy Interpretation - - Benign prostatic tissue. MicroScopic Description - C:Prostate,Left Lateral Holliday:Needle Biopsy Interpretation - - Benign prostatic tissue. MicroScopic Description - D:Prostate,Left Base:Needle Biopsy Interpretation - - Benign prostatic tissue (see comment). MicroScopic Description - E:Prostate,Left Mid:Needle Biopsy Interpretation - - Benign prostatic tissue (see comment). MicroScopic Description - F:Prostate,Left Holliday:Needle Biopsy Interpretation - - Benign prostatic tissue. MicroScopic Description - G:Prostate,Right Base:Needle Biopsy Interpretation - - Benign prostatic tissue with patchy chronic inflammation. MicroScopic Description - H:Prostate,Right Mid:Needle Biopsy Interpretation - - Benign prostatic tissue. MicroScopic Description - I:Prostate,Right Holliday:Needle Biopsy Interpretation - - Benign prostatic tissue. MicroScopic Description - J:Prostate,Right Lateral Base:Needle Biopsy Interpretation - - Benign prostatic tissue (see comment). MicroScopic Description - K:Prostate,Right Lateral Mid:Needle Biopsy Interpretation - - Benign prostatic tissue (see comment). MicroScopic Description - L:Prostate,Right Lateral Holliday:Needle Biopsy Interpretation - - Benign prostatic tissue. [...] cores 1 units cm Site ID:I color rtammell-white fixative Formalin cores 1 units cm Site ID:J color trammell-white fixative Formalin cores 3 units cm Site ID:K color trammell-white fixative Formalin cores 2 units cm Site ID:L color trammell-white fixative Formalin cores 1 units cm A, D, E, J and K: PIN4 reviewed. CPT code: 51989 x 12 91197 x 5 Electronically signed by : on: 12/07/2023 13:49:50 Performed By: #### 1 [id number] ####[facility] [address] [place] [address] Consent for Procedure/Surger yon 11-29-2023 Consent for Procedure/Surgery [id number]#1.00TIFF Normal [facility] Prostate Histology ([facility]) on 11-28-2023 PH Method of Extraction Needle Biopsy Normal [facility] Comment on above: Performed By: #### 1 [id number] ####[facility] [address] [place] [address] PH Number of Jars 2 Invalid Interpretation Code [facility] Comment on above: Performed By: #### 1 [id number] ####[facility] [address] [place] [address] PH Specimen 1 R Base Prostate Normal [facility] Comment on above: Performed By: #### 1 [id number] ####[facility] [address] [place] [address] PH Specimen 10 L Lat Mid Prost Normal [facility] Comment on above: Performed By: #### 1 [id number] ####[facility] [address] [place] [address] PH Specimen 11 L Apx Prostate Normal [facility] Comment on above: Performed By: #### 1 [id number] ####[facility] [address] [place] [address] PH Specimen 12 L Lat Apx Prost Normal [facility] Comment on above: Performed By: #### 1 [id number] ####[facility] [address] [place] [address] PH Specimen 2 R Lat Bse Prost Normal [facility] Comment on above: Performed By: #### 1 [id number] ####[facility] [address] [place] [address] PH Specimen 3 R Mid Prostate Normal [facility] Comment on above: Performed By: #### 1 [id number] ####[facility] [address] [place] [address] PH Specimen 4 R Lat Mid Prost Normal [facility] Comment on above: Performed By: #### 1 [id number] ####[facility] [address] [place] [address] PH Specimen 5 R Apx Prostate Normal [facility] Comment on above: Performed By: #### 1 [id number] ####[facility] [address] [place] [address] PH Specimen 6 R Lat Apx Prost Normal [facility] Comment on above: Performed By: #### 1 [id number] ####[facility] [address] [place] [address] PH Specimen 7 L Base Prostate Normal [facility] Comment on above: Performed By: #### 1 [id number] ####[facility] [address] [place] [address] PH Specimen 8 L Lat Bse Prost Normal [facility] Comment on above: Performed By: #### 1 [id number] ####[facility] [address] [place] [address] PH Specimen 9 L Mid Prostate Normal [facility] Comment on above: Performed By: #### 1 [id number] ####[facility] [address] [place] [address] PH Type of Service Technical Only Normal [facility] Comment on above: Performed By: #### 1 [id number] ####[facility] [address] [facility] [place] [facility] [place] [address] Ambulatory Visit Summaryon 0 11-27-2023 Ambulatory Visit [...] PRECIADO, Pelon Mujica Where: [facility] Patient Educationon 11-27-19 Patient [...] near your rectum, especially while sitting. ? Brigantine-colored urine due to small amounts of blood in your urine. ? A burning feeling while urinating. ? Blood in your stool (feces) or bleeding from your rectum. ? Blood in your semen. Follow these instructions at home: Medicines ? Take falp-now-bzjsjlr and prescription medicines only as told by [...] provider. Document Revised: 05/01/2022 Document Reviewed: 05/01/2022 [employer] Patient Education ? 2022 [employer]. [facility] Urology Office/Clinic Noteon 11-27-2023 Urology Office/Clinic [...] MD, URL [facility] [address] [place] [phone] Additional Instructions: review path on 12/14/23 Patient Education Transrectal Ultrasound-Guided Prostate Biopsy, Care After ISahra, personally scribed for Dr. Coles on (more content not included)... Normal [facility] Comment on above: Result Comment: Elec tronically Signed By: Pelon COLES MD\.br\Date and Time Signed: 11/27/23 16:43 EST\.br\Electronically Co-Signed By: Sahra Daugherty\.br\Date and Time Co-Signed: 11/27/23 16:39 EST Insurance Correspondenceon 0 11-26-2023 Insurance Correspondence [id number]#1.00TIF Frankie Cooper [facility] Ambulatory Visit Summaryon 1 01-15-2023 Ambulatory [...] PRECIADO, Pelon Mujica Where: [facility] [address] [place] [address]- \.br\ Medications\.br \ What How [...] for choosing us for your care.\.br\ \.br\ [facility] General Surgery Office/Clini c Noteon 11-14-2023 [...] virus vaccine, inactivated 07/2023 Recorded SARS-CoV-2 (COVID-19) mRNAMUL.ORD![id number] 08/13/2022 Recorded influenza virus vaccine, inactivated 07/26/2022 Recorded SARS-CoV-2 (COVID-19) mRNA BNT-162b2 vax 10/23/2021 Recorded influenza virus vaccine, inactivated 08/10/2021 Recorded SARS-CoV-2 (COVID-19) Ad26 vaccine 04/15/2021 Recorded SARS-CoV-2 (COVID-19) Ad26 vaccine 03/25/2021 Recorded SARS-CoV-2 (COVID-19) mRNA BNT-162b2 vax 02/15/2021 Recorded SARS-CoV-2 (COVID-19) mRNA BNT-162b2 vax 01/25/2021 Recorded influenza virus vaccine, live, trivalent 07/2019 Re (more content not included)... Normal [facility] Comment on above: Result Comment: Elec [...] not retrieved (2022)/history of colon polyps. Normal [facility] Outside Colonoscopyon 2022 Outside Colonoscopy [id number]#1.00TIFF Normal [facility] Pathology Noteon 11-06-2023 Pathology Note [id number]#1.00TIFF Normal [facility] Ambulatory Visit Summaryon 1 12-30-2022 Ambulatory Visit Summary DAT LOPEZ :1960 Visit Date:10/29/2023 Ambulatory Visit Instructions Your Diagnosis History of kidney stones Elevated PSA BPH with obstruction/lower urinary tract symptoms Prostate nodule History of bladder cancer Erectile dysfunction Tests Performed Urnls Dip Stick Auto w/o Microscopy POC 62026 Your Care Team Attending Physician - SANKET [...] Pelon COLES MD Where: [facility] Meghann Normal [address] [place] [address]- \.br\ You Need to Schedule the Following Appointments\.b r\ Follow Up with Pelon COLES MD, URL When: \.br\ Comments:\.br\ Scheduled for TRUS/bx on 11/27/23.\.br\ Where:\.br\ [facility] [address], [place]\.br\ [place] [address].br\ Medications\.br \ What How Much When Instructions\.b [...] Urnls Dip Stick Auto w/o Microscopy POC 06329 (10/29/2023)\.b r\ Bilirubin Urine Dipstick - Negative\.br\ Blood Urine Dipstick - Negative\.br\ Glucose Urine Dipstick - Negative\.br\ Ketones Urine Dipstick - Negative\.br\ Leukocytes Urine Dipstick - Negative\.br\ Nitrite Urine Dipstick - Negative\.br\ Protein Urine Dipstick - Trace\.br\ Specific [place] Urine Dipstick - 1.020\.br\ Urine Appearance Urine [...] for choosing us for your care.\.br\ \.br\ [facility] Urology Office/Clinic Noteon 10-29-2023 Urology Office/Clinic [...] [facility] [address], [place] [address]- Additional Instructions: Scheduled for TRUS/bx on 11/27/23. [...] disease Depression Diabetes (more content not included)... [facility] Comment on above: Result Comment: Elec tronically Signed By: Pelon COLES MD\.br\Date and Time Signed: 10/29/23 15:44 EST\.br\Electronically Co-Signed By: Va Rivers\.br\Date and Time Co-Signed: 10/29/23 15:42 EST Consent for Procedure/Surger yon 10-09-2023 Consent for Procedure/Surgery [id number]#1.00TIFF [facility] Insurance Correspondenceon 1 12-08-2022 Insurance Correspondence [id number]#1.00TIFF [facility] Ambulatory Visit Summaryon 1 12-05-2022 [...] PRECIADO, Pelon Mujica Where: [facility] [place] [address] [place] [id number] \.br\ Medications\.br \ What How Much When [...] for choosing us for your care.\.br\ \.br\ [facility] RAD - MRI Reporton RAD - MRI Report [id number]#1.00TIFF Normal [facility] Reminderson 09-14-2023 Reminders - From: Nelida Ortiz To: EU - Recalls Sanket; Cc: Nelida Ortiz; Sent: 08/09/2023 16:23:35 EDT Show up: 02/18/2024 16:23:00 EDT Subject: MRI of prostate Due Date/Time: 03/10/2024 16:23:00 EDT Reminder/Recall Pt is due for MRI of prostate w/wo in March 2024. pt ended up having it done Aug 2023. see message re: results for PRW plan. Normal [facility] MR prostate wo/w conon 09-11 MR prostate wo/w con [facility] [place] [address] MRI Report Signed Patient: Dat Lopez JR MR#: [id number] : 1960 Acct:[id number] Age/Sex: 63 / M ADM Date: 09/11/23 Loc: Room: Type: [facility] Attending Dr: Pelon Coles MD Copies to: [...] Boston Jr., D.O.09/11/2023 4:28 PM Dictation Location: [place] [address] Transcribed By: [facility] 09/11/23 1628 Dictated By: Mitul Boston Jr, DO 09/11/23 1621 Signed By: 09/11/23 1628 [facility] Insurance Correspondenceon 0 06-26-2023 Insurance Correspondence [id number]#1.00CD:1 27 Normal [facility] UroVysion Fish and Urine Cyt o ([facility])on 06-25-2023 UVFISH & UC Diagnosis Info Invalid Interpretation Code [facility] Comment on above: Result Comment: A:Ur [...] cytology, and continued follow-up are recommended.* CPT 86055, 96869. Microscopic Notes - Microscopic Notes - Abnormal cells 9p21 deletions: Abnormal cells aneploid events: Total cells analyzed: 3 Hematuria: Gross Description Site ID:A color Yellow fixative Alcohol Received 80 mls of clear yellow fluid with the patient's name and, Urine on the vial. Electronically signed by : on: 06/25/2023 10:51:09 Performed By: #### 1 [id number] ####[facility] [address] [place] [address] Consent for Procedure/Surger yon 06-12-2023 Consent for Procedure/Surgery [id number]#1.00CD:12 7 Normal [facility] Consent for Treatmenton 05-20 Consent for Treatment [id number]#1.00CD:12 7 Normal [facility] IntraOperative Documentson 0 06-12-2023 IntraOperative Documents [id number]#1.00CD:12 7 Normal [facility] Main OR Intraoperative Recor don 06-12-2023 Main OR Intraoperative Record IntraOp Document Type FTURO Summary Primary Physician: Pelon COLES MD Finalized Date/Time: 06/12/23 12:24:53 Pt. Name: DAT LOPEZ James Guzman/Sex: 1960 Male Med Rec #: [id number] Physician: Pelon COLES MD Financial #: [id number] Pt. Type: O Room/Bed: / Admit/Disch: 06/12/23 [...] Malena Samano Role Performed Surgeon - Primary Career Specialist - Primary Scrub - Primary Time In 06/12/23 12:10:00 06/12/23 12:10:00 06/12/23 12:10:00 Time Out 06/12/23 12:30:00 06/12/23 12:30:00 06/12/23 12:30:00 Procedure CYSTOSCOPY LOCAL(.) CYSTOSCOPY LOCAL(.) CYSTOSCOPY LOCAL(.) Comments Last Modified By: Sandra WHALEY, CNOR, Sandra WHALEY, ALIREZAOR, Sandra WHALEY, ALIREZAOR, Jazmyne 06/12/23 Jazmyne 06/12/23 Jazmyne 06/12/23 12:23:17 12:23:17 12:23:17 General Comments: a morris echocardiography technologist observing in room Surgical Procedures FTURO Entry [...] AUDRA Flores RN, Ruthann 06/12/23 12:24 Normal [facility] Main OR Preoperative Recordo n 06-12-2023 Main OR Preoperative Record Holding Area Document Type FTURO Summary Primary Physician: Pelon COLES MD Finalized Date/Time: 06/12/23 12:21:21 Pt. Name: DAT LOPEZ/Sex: 1960 Male Med Rec #: [id number] Physician: Pelon COLES MD Financial #: [id number] Pt. Type: O Room/Bed: / Admit/Disch: 06/12/23 [...] of Pain: No ambulation Skin Integrity Intact, Brigantine, Warm, & Dry Vitals - EU Blood [...] AUDRA Flores RN, Ruthann 06/12/23 12:21 Normal [facility] Operative Reporton Operative Report Patient: SAMANTHA [...] with antibiotic coverage, Follow up arranged. Normal [facility] Comment on above: Result Comment: Elec tronically Signed By: SANKET PRECIADO, Pelon Heller.br\Date and Time Signed: 06/12/23 12:31 EDT Outpatient Surgery Discharge Instructionon 06-12-2023 Outpatient Surgery Discharge Instruction [id number]#1.00CD:12 7 Normal [facility] UroVysion Fish and Urine Cyt o ([facility])on 06-12-2023 [facility] Method of Extraction Voided Normal [facility] Comment on above: Performed By: #### 1 [id number] ####[facility] [address] [place] [address] [facility] Number of Jars 1 Invalid Interpretation Code [facility] Comment on above: Performed By: #### 1 [id number] ####[facility] [address] [place] [address] [facility] Specimen Urine Normal [facility] Comment on above: Performed By: #### 1 [id number] ####[facility] [address] [place] [address] [facility] Type of Service Technical Only Normal [facility] Comment on above: Performed By: #### 1 [id number] ####[facility] [address] [place] [address] Lab Reportson 06-11-2023 Lab Reports [id number]#1.00CD:12 7 Normal [facility] XR KUB 1 VIEWon 02-23-2023 XR [...] by: GEMA OTTO Date: 2023-02-23 06:58 Normal [facility] XR LSPINE 2_3 VIEWSon 2022 XR LSPINE [...] GEMA OTTO Date: 2023-02-23 07:03 Normal [facility] CBC AUTO DIFFon 02-22-2023 BASO # 0.0 103/ul Normal 0.0-0.1 [facility] Comment on above: Performed By: #### C BC #### [facility] [address] [address] [address] Nikky Man Basophils/100 WBC (Bld) 0.3 % Normal 0.2-2.0 [facility] Comment on above: Performed By: #### C BC #### [facility] [address] [place] [address] Dr. Nikky Man EO # 0.2 103/ul Normal 0.0-0.7 [facility] Comment on above: Performed By: #### C BC #### [facility] [address] [place] [address] Dr. Nikky Man Eosinophils/100 WBC (Bld) 3.0 % Normal 0.9-7.0 [facility] Comment on above: Performed By: #### C BC #### [facility] [address] [place] [address] Dr. Nikky Man Erythrocyte distribution width (RBC) [Ratio] 14.1 % Normal 11.0-15.0 [facility] Comment on above: Performed By: #### C BC #### [facility] [address] [place] [address] Dr. Nikky Man Hematocrit (Bld) [Volume fraction] 40.4 % Critically low 42.0-54.0 [facility] Comment on above: Performed By: #### C BC #### [facility] [address] [place] [address] Dr. Nikky Man Hemoglobin (Bld) [Mass/Vol] 13.3 g/dL Critically low 14.0-18.0 [facility] Comment on above: Performed By: #### C BC #### [facility] [address] [place] [address] Dr. Nikky Man IG # 0.02 10e3/ul Normal 0.00-0.03 [facility] Comment on above: Performed By: #### C BC #### [facility] [address] [place] [address] Dr. Nikky Man IG % 0.3 % Normal 0.0-0.5 [facility] Comment on above: Performed By: #### C BC #### [facility] [address] [place] [address] Dr. Nikky Man LYMPH # 1.6 103/ul Normal 1.2-3.8 [facility] Comment on above: Performed By: #### C BC #### [facility] [address] [place] [address] Dr. Nikky Man Lymphocytes/100 WBC (Bld) 23.3 % Normal 20.5-60.0 [facility] Comment on above: Performed By: #### C BC #### [facility] [address] [place] [address] Dr. Nikky Man MANUAL DIFF REQ NO Normal [facility] Comment on above: Performed By: #### C BC #### [facility] [address] [place] [address] Dr. Nikky Man MCH (RBC) [Entitic mass] 26.3 pg Normal 25.9-34.0 [facility] Comment on above: Performed By: #### C BC #### [facility] [address] [place] [address] Dr. Nikky Man MCHC (RBC) [Mass/Vol] 32.9 g/dL Normal 29.9-35.2 [facility] Comment on above: Performed By: #### C BC #### [facility] [address] [place] [address] Dr. Nikky Man MCV (RBC) [Entitic vol] 80.0 fL Normal 80.0-94.0 [facility] Comment on above: Performed By: #### C BC #### [facility] [address] [place] [address] Dr. Nikky Man MONO # 0.4 103/ul Normal 0.3-0.8 [facility] Comment on above: Performed By: #### C BC #### [facility] [address] [place] [address] Dr. Nikky Man Monocytes/100 WBC (Bld) 5.8 % Normal 1.7-12.0 [facility] Comment on above: Performed By: #### C BC #### [facility] [address] [place] [address] Dr. Nikky Man NEUT # 4.7 103/ul Normal 1.4-6.5 [facility] Comment on above: Performed By: #### C BC #### [facility] [address] [place] [address] Dr. Nikky Man Neutrophils/100 WBC (Bld) 67.3 % Normal 43.0-75.0 [facility] Comment on above: Performed By: #### C BC #### [facility] [address] [place] [address] Dr. Nikky Man Platelet mean volume (Bld) [Entitic vol] 9.0 fL Critically low 9.5-13.5 [facility] Comment on above: Performed By: #### C BC #### [facility] [address] [place] [address] Dr. Nikky Man PLT 154 103/ul Normal 150-450 [facility] Comment on above: Performed By: #### C BC #### [facility] [address] [place] [address] Dr. Nikky Man RBC 5.05 106/ul Normal 4.70-6.10 [facility] Comment on above: Performed By: #### C BC #### [facility] [address] [place] [address] Dr. Nikky Man WBC 6.9 103/ul Normal 4.0-11.0 [facility] Comment on above: Performed By: #### C BC #### [facility] [address] [place] [address] Dr. Nikky Man GLYCOHEMOGLOBIN A1Con 2022 ADA RECOMMENDATION SEE BELOW Normal [facility] Comment on above: Result Comment: ADA RECOMMENDED LIMIT 4.0 - 6.0 ADA THERAPEUTIC TARGET < 7.0 ACTION SUGGESTED > 7.0 Performed By: #### A 1C #### [facility] [address] [place] [address] Dr. Nikky Man Glucose [Mass/Vol] 137 mg/dL Normal [facility] Comment on above: Performed By: #### A 1C #### [facility] [address] [place] [address] Dr. Nikky Man HbA1c (Bld) [Mass fraction] 6.4 % Critically high 4.5-6.2 [facility] Comment on above: Performed By: #### A 1C #### [facility] [address] [place] [address] Dr. Nikky Man LIPID PROFILEon 02-22-2023 CHOL-HDL RATIO NORM SEE BELOW Normal [facility] Comment on above: Result Comment: 3.3 - 4.4 LOW RISK 4.4 - 7.1 AVERAGE RISK 7.1 - 11.0 MODERATE RISK >11.0 HIGH RISK Performed By: #### C MP, LIPID #### [facility] [address] [address] [address] Nikky Man Cholesterol [Mass/Vol] 135 mg/dL Normal <=200 [facility] Comment on above: Performed By: #### C MP, LIPID #### [facility] [address] [address] [address] Nikky Man Cholesterol in HDL [Mass/Vol] 30 mg/dL Critically low 40-60 [facility] Comment on above: Performed By: #### C MP, LIPID #### [facility] [address] [address] [address] Nikky Man Cholesterol in LDL [Mass/Vol] 50.6 mg/dL Normal [facility] Comment on above: Performed By: #### C MP, LIPID #### [facility] [address] [address] [address] Nikky Man Cholesterol.total /Cholesterol in HDL [Mass ratio] 4.5 {ratio} Normal [facility] Comment on above: Performed By: #### C MP, LIPID #### [facility] [address] [address] [address] Nikky Man HDL NORMAL > or = 60 mg/dl - LO W CARDIOVASCULAR RISK <40 mg/dl - HIGH CARDIOVASCULAR RISK Normal [facility] Comment on above: Performed By: #### C MP, LIPID #### [facility] [address] [address] [address] Nikky Man LDL CALC NORMAL SEE BELOW Normal [facility] Comment on above: Result Comment: <100 mg/dl OPTIMAL 100 - 129 mg/dl NEAR OR ABOVE OPTIMAL 130 - 159 mg/dl BORDERLINE HIGH 160 - 189 mg/dl HIGH >190 mg/dl VERY HIGH Performed By: #### C MP, LIPID #### [facility] [address] [place] [address] Dr. Nikky Man Triglyceride [Mass/Vol] 272 mg/dL Critically high <=150 [facility] Comment on above: Performed By: #### C MP, LIPID #### [facility] [address] [place] [address] Dr. Nikky Man VLDL CALC 54.4 mg/dL Normal [facility] Comment on above: Performed By: #### C MP, LIPID #### [facility] [address] [place] [address] Dr. Nikky Man MICROALBUMIN, RAND URon 04-0 mALB 13.2 mg/L Normal <=30.0 [facility] Comment on above: Performed By: #### M ALBR #### [facility] [address] [place] [address] Dr. Nikky Man PROF 14(COMP METB)on 023 Albumin [Mass/Vol] 3.9 g/dL Normal 3.4-5.0 [facility] Comment on above: Performed By: #### C MP, LIPID #### [facility] [address] [place] [address] Dr. Nikky Man Albumin/Globulin [Mass ratio] 1.2 {ratio} Normal [facility] Comment on above: Performed By: #### C MP, LIPID #### [facility] [address] [place] [address] Dr. Nikky Man ALP [Catalytic activity/Vol] 87 U/L Normal 46-116 [facility] Comment on above: Performed By: #### C MP, LIPID #### [facility] [address] [place] [address] Dr. Nikky Man ALT [Catalytic activity/Vol] 29 U/L Normal 16-63 [facility] Comment on above: Performed By: #### C MP, LIPID #### [facility] [address] [place] [address] Dr. Nikky Man Anion gap [Moles/Vol] 13.2 mmol/L Normal [facility] Comment on above: Performed By: #### C MP, LIPID #### [facility] [address] [address] [address] Nikky Man AST [Catalytic activity/Vol] 19 U/L Normal 15-37 [facility] Comment on above: Performed By: #### C MP, LIPID #### [facility] [address] [address] [address] Nikky Man Bilirubin [Mass/Vol] 0.4 mg/dL Normal 0.2-1.0 [facility] Comment on above: Performed By: #### C MP, LIPID #### [facility] [address] [address] [address] Nikky Man Calcium [Mass/Vol] 9.3 mg/dL Normal 8.5-10.1 [facility] Comment on above: Performed By: #### C MP, LIPID #### [facility] [address] [place] [address] Dr. Nikky Man Chloride [Moles/Vol] 103 mmol/L Normal 98-107 [facility] Comment on above: Performed By: #### C MP, LIPID #### [facility] [address] [place] [address] Dr. Nikky Man CO2 [Moles/Vol] 28.7 mmol/L Normal 21.0-32.0 [facility] Comment on above: Performed By: #### C MP, LIPID #### [facility] [address] [place] [address] Dr. Nikky Man Creatinine [Mass/Vol] 1.54 mg/dL Critically high 0.70-1.30 [facility] Comment on above: Performed By: #### C MP, LIPID #### [facility] [address] [place] [address] Dr. Nikky Man EGFR-AF TOGOLESE 56 mL/min/1.73m2 Critically low >=60 [facility] Comment on above: Performed By: #### C MP, LIPID #### [facility] [address] [address] [address] Nikky Man EGFR-NON AF TOGOLESE 46 mL/min/1.73m2 Critically low >=60 [facility] Comment on above: Performed By: #### C MP, LIPID #### [facility] [address] [address] [address] Nikky Man Globulin (S) [Mass/Vol] 3.2 g/dL Normal [facility] Comment on above: Performed By: #### C MP, LIPID #### [facility] [address] [address] [address] Nikky Man Glucose [Mass/Vol] 179 mg/dL Critically high 74-106 [facility] Comment on above: Performed By: #### C MP, LIPID #### [facility] [address] [address] [address] Nikky Man Potassium [Moles/Vol] 4.9 mmol/L Normal 3.5-5.1 [facility] Comment on above: Performed By: #### C MP, LIPID #### [facility] [address] [address] [address] Nikky Man Protein [Mass/Vol] 7.1 g/dL Normal 6.4-8.2 [facility] Comment on above: Performed By: #### C MP, LIPID #### [facility] [address] [address] [address] Nikky Man Sodium [Moles/Vol] 140 mmol/L Normal 136-145 [facility] Comment on above: Performed By: #### C MP, LIPID #### [facility] [address] [address] [address] Nikky Man Urea nitrogen [Mass/Vol] 20.0 mg/dL Critically high 7.0-18.0 [facility] Comment on above: Performed By: #### C MP, LIPID #### [facility] [address] [address] [address] Nikky Man Urea nitrogen/Creatini ne [Mass ratio] 13.0 mg/mg Normal [facility] Comment on above: Performed By: #### C MP, LIPID #### [facility] [address] [address] [address] Nikky Man XR femur RT 2V*on 02-14-2023 XR femur RT 2V* [place] [address] XRay Report Signed Patient: Dat Lopez JR MR#: [id number] : 1960 Acct:[id number] Age/Sex: 62 / M ADM Date: 02/14/23 Loc: SOX Room: Type: [facility] Attending Dr: Alfonzo Ashford II, MD Copies [...] Boston Jr., D.O.02/14/2023 4:22 PM Dictation Location: [facility]--12 Transcribed By: [facility] 02/14/23 1622 Dictated By: Mitul Boston Jr, DO 02/14/23 1621 Signed By: 02/14/23 1622 Normal [facility] XR femur RT 2V* [facility] [employer] Other XR femur RT 2V* [facility] Main [facility] [employer] Other XR femur RT 2V* [address] [place] [address] [employer] Other XR femur RT 2V* [place] [address] [facility] [employer] Other XR femur RT 2V* XRay Report [facility] [employer] Other XR femur RT 2V* Signed [facility] [employer] Other XR femur RT 2V* Patient: Tk Lopez JR MR#: [id number] [facility] [employer] Other XR femur RT 2V* [address] [address] [facility] K121 Other XR femur RT 2V* : 1960 Acct:[id number] [employer] Other XR femur RT 2V* Age/Sex: 62 / M ADM Date: 02/14/23 [employer] Other XR femur RT 2V* Loc: SOXD Room: Type : REG CLI [employer] Other XR femur RT 2V* Attending Dr: Alfonzo Ashford II, MD [employer] Other XR femur RT 2V* Copies to: Alfonzo Ashford MD [employer] Other XR femur RT 2V* Ordering Provider: Sil Ashford MD [employer] Other XR femur RT 2V* Date of Service: 02/14/23 [employer] Other XR femur RT 2V* XR/XR femur RT 2V*: Post-traumatic osteoarthritis of right knee [employer] Other XR femur RT 2V* Right femur 2 views. [employer] Other XR femur RT 2V* Reason for exam: Follow-up ORIF right femur fracture. [employer] Other XR femur RT 2V* COMPARISON: Right kn ee series 12/14/2022 [employer] Other XR femur RT 2V* FINDINGS: Hardware fixation is seen involving the mid to distal femur without evidence of hardware [employer] Other XR femur RT 2V* complication. No acu te fracture line is noted. Residual deformity seen from a prior fracture [employer] Other XR femur RT 2V* involving the mid fe mur. Visualized knee joint demonstrates degenerative change. Right hip joint [employer] Other XR femur RT 2V* demonstrates minimal degenerative change. [employer] Other XR femur RT 2V* X R/XR femur RT 2V* [employer] Other XR femur RT 2V* IMPRESSION: No evide nce of hardware complication. No acute fracture line is seen. [employer] Other XR femur RT 2V* Impression dictated by: Mitul Boston Jr., D.ODheeraj02/14/2023 4:22 PM [employer] Other XR femur RT 2V* Dictation Location: [facility]-- [employer] Other XR femur RT 2V* Transcribed By: [facility] 02/14/23 [facility] [employer] Other XR femur RT 2V* Dictated By: Mitul Boston Jr, DO 02/14/23 [facility] [employer] Other XR femur RT 2V* Signed By: [facility] [employer] Other XR femur RT 2V* 02/14/23 [facility] [employer] Other XR knee RT 4V*on 12-14-2022 XR knee RT 4V* [facility] Main [place] [address] [place] [address] XRay Report Signed Patient: Dat Lopez JR MR#: [id number] : 1960 Acct:[id number] Age/Sex: 62 / M ADM Date: 12/14/22 Loc: [facility] Room: Type: [facility] Attending Dr: Alfonzo Ashford II, MD Copies to: Alfonzo Ashford MD Ordering Provider: Alfonzo Ashford MD Date of Service: 12/14/22 XR/XR hip LT min 2V(w/wo pelvis)*: Left hip pain ([id number]) XR/XR knee RT 4V*: Acute pain of [...] 3:37 PM Dictation Location: [facility]14 Transcribed By: [facility] 12/14/22 153 Dictated By: Mitul Boston Jr, DO 12/14/22 153 Signed By: 12/14/22 153 [facility] XR knee RT 4V* [facility] [employer] Other XR knee RT 4V* [facility] [employer] Other XR knee RT 4V* [address] [place] [address] [employer] Other XR knee RT 4V* [place] [address] No rt [employer] Other XR knee RT 4V* XRay Report [employer] Other XR knee RT 4V* Signed [employer] Other XR knee RT 4V* Patient: Tk Lopez MR#: [id number] [employer] Other XR knee RT 4V* [address] [employer] Other XR knee RT 4V* : 1960 Acct:[id number] [employer] Other XR knee RT 4V* Age/Sex: 62 / M ADM Date: 12/14/22 [employer] Other XR knee RT 4V* Loc: SOXD Room: Type : [facility] [employer] Other XR knee RT 4V* Attending Dr: Alfonzo Ashford II, MD [employer] Other XR knee RT 4V* Copies to: Alfonzo Ashford MD [employer] Other XR knee RT 4V* Ordering Provider: Sil Ashford MD [employer] Other XR knee RT 4V* Date of Service: 12/14/22 [employer] Other XR knee RT 4V* XR/XR hip LT min 2V(w/wo pelvis)*: Left hip pain [employer] Other XR knee RT 4V* ([id number]) XR/XR knee RT 4V*: Acute pain of right knee [employer] Other XR knee RT 4V* LEFT HIP - 2 views: Right knee 4 views [employer] Other XR knee RT 4V* CLINICAL HISTORY: Le ft hip pain for months. Groin pain. [employer] Other XR knee RT 4V* COMPARISON: None [employer] Other XR knee RT 4V* FINDINGS: Left hip: No acute bony process or significant degenerative change of the hips. [employer] Other XR knee RT 4V* Right knee: Partiall y visualized hardware is seen involving the distal femur without evidence of [employer] Other XR knee RT 4V* hardware complicatio n. No acute bony process is seen. Small knee joint effusion. Mild [employer] Other XR knee RT 4V* Degenerative changes with weightbearing and patellofemoral joint space narrowing. [employer] Other XR knee RT 4V* X R/XR hip LT min 2V(w/wo pelvis)* [employer] Other XR knee RT 4V* IMPRESSION: [employer] Other XR knee RT 4V* MILD DEGENERATIVE CH ANGES OF THE RIGHT KNEE WITHOUT ACUTE BONY PROCESS.. [employer] Other XR knee RT 4V* Impression dictated by: Mitul Boston Jr., DDheerajODheeraj12/14/2022 3:37 PM [employer] Other XR knee RT 4V* Dictation Location: [facility]14 [employer] Other XR knee RT 4V* Transcribed By: [facility] 12/14/22 1537 [employer] Other XR knee RT 4V* Dictated By: Mitul Boston Jr, DO 12/14/22 1534 [employer] Other XR knee RT 4V* Signed By: [employer] Other XR knee RT 4V* 12/14/22 1537 [employer] Other PSA, FREE AND TOTAL RATIOon 12-06-2022 % Free PSA 28.4 % Normal [facility] Comment on above: Result Comment: The [...] men. Performed By: #### P SAFREE #### [facility] [address] [place] [address] Dr. Nikky Man Prostate specific Ag [Mass/Vol] 10.5 ng/mL Critically high 0.0-4.0 [facility] Comment on above: Result Comment: Roch e ECLIA methodology. . According to the [place] Urological Association, Serum PSA should decrease and [...] disease. Performed By: #### P SAFREE #### [facility] [address], [place] [address] Dr. Nikky Man PSA, Free 2.98 ng/mL Normal N/A [facility] Comment on above: Result Comment: Inderjit salmon ECLRANDOLPH methodology. Performed By: #### P SAFREE #### [facility] [address], [place] [address] ABD/PELVIS WO CONon [...] OTTO Date: 2022-09-27 15:[address] Office Visit (URFMOB ) ----- DAT LOPEZ ([id number]) 1960 M Date Time Provider Department 09/26/22 [...] patient: Yes Procedure confirmed with physician and office support assistant: Yes Sign In: History and Physical Exam [...] care C (more content not included)... Normal [facility] UA DIP, URINE (POC)on 2021 BILIRUBIN UA (POCT) Negative Negative [facility] CLARITY UA (POCT) Cloudy [facility] COLOR UA (POCT) Yellow [facility] GLUCOSE UA (POCT) Negative Negative mg/dL [facility] HEMOGLOBIN/BLOOD UA (POCT) Large Abnormal Negative [facility] KETONE UA (POCT) Negative Negative mg/dL [facility] LEUKOCYTES UA (POCT) Small Abnormal Negative [facility] NITRITE UA (POCT) Negative Negative [facility] PH UA (POCT) 5.5 4.5 - 8.0 [facility] Protein Ql (U) 30 mg/dL Abnormal Negative mg/dL [facility] SPECIFIC GRAVITY UA (POCT) 1.020 1.005 - 1.030 [facility] UROBILINOGEN UA (POCT) 0.2 E.U./dL Normal E.U./dL [facility] Basic metabolic 2000 panelon 09-12-2022 Anion gap [Moles/Vol] 9 mmol/L Normal 9-18 [facility] Comment on above: Order Comment: Speci men Type: BLOOD SPECIMENOrdering Facility: [facility] Address: [address], [place] [address] Performed By: #### 2 4321-2 ####[facility]ATORYCLIA [id number] [place] [address] [place] Calcium [Mass/Vol] 8.6 mg/dL Normal 8.5-10.2 [facility] Comment on above: Order Comment: Speci men Type: BLOOD SPECIMENOrdering Facility: [facility] Address: [address] [place] [address] Performed By: #### 2 4321-2 ####[facility]ATORYCLIA [id number] [place] [address] [place] Chloride [Moles/Vol] 106 mmol/L High 97-105 [facility] Comment on above: Order Comment: Speci men Type: BLOOD SPECIMENOrdering Facility: [facility] Address: [address] [place] [address] Performed By: #### 2 4321-2 ####[facility] LABORATORYIA [id number] [place] [address] [place] CO2 [Moles/Vol] 24 mmol/L Normal 22-30 [facility] ital Comment on above: Order Comment: Speci men Type: BLOOD SPECIMENOrdering Facility: [facility] Address: [address] [place] [address] Performed By: #### 2 4321-2 ####[facility] LABORATORYIA [id number] [place] [address] [place] Creatinine [Mass/Vol] 1.75 mg/dL High 0.73-1.22 [facility] Comment on above: Order Comment: Speci men Type: BLOOD SPECIMENOrdering Facility: [facility] Address: [address] [place], [place] [address] Performed By: #### 2 4321-2 ####[facility] LABORATORYIA [id number] [place] [address] [place] ESTIMATED GLOMERULAR FILTRATION RATE 44 mL/min/1.73m??? Low >=60 [facility] Comment on above: Order Comment: Speci men Type: BLOOD SPECIMENOrdering Facility: [facility] Address: [address] [place] [address] Result Comment: Carole mated Glomerular Filtration Rate [...] #### 2 4321-2 ####[facility] LABORATORYCLIA [id number] [facility] [place] [address] [place] Glucose [Mass/Vol] 169 mg/dL High 74-99 [facility] Comment on above: Order Comment: Demar arrington Type: BLOOD SPECIMENOrdering Facility: [facility] Address: [address] [id number] Result Comment: The [place] Diabetes Association (ADA) provides guidance for cutoff [...] Standards of Medical Care in Diabetes 2016, [place] Diabetes Association. Diabetes Care. 2016.39(Suppl 1). Performed By: #### 2 4321-2 ####[facility] LABORATORYCLIA [id number] [facility] [place] [address] [place] Potassium [Moles/Vol] 4.7 mmol/L Normal 3.7-5.1 [facility] Comment on above: Order Comment: Demar arrington Type: BLOOD SPECIMENOrdering Facility: [facility] Address: [address] [place] [address] Performed By: #### 2 4321-2 ####[facility]ORATORYCLIA [id number] [place] [address] [place] Sodium [Moles/Vol] 139 mmol/L Normal 136-144 [facility] Comment on above: Order Comment: Speci men Type: BLOOD SPECIMENOrdering Facility: [facility] Address: [address] [place] [address] Performed By: #### 2 4321-2 ####[facility]ORATORYCLIA [id number] [place] [address] [place] Urea nitrogen [Mass/Vol] 26 mg/dL High 9-24 [facility] Comment on above: Order Comment: Speci men Type: BLOOD SPECIMENOrdering Facility: [facility] Address: [address] [place] [address] Performed By: #### 2 4321-2 ####[facility] LABORATORYIA [id number] [address] [place] CBC panel Auto (Bld)on 09-12 Erythrocyte distribution width (RBC) [Ratio] 13.4 % Normal 11.5-15.0 [facility] Comment on above: Order Comment: Speci men Type: BLOOD SPECIMEN [facility] Address: [address] [place] [address] Performed By: #### 5 8410-2 #### [facility] CLIA [id number] [place] Hematocrit (Bld) [Volume fraction] 35.7 % Low 39.0-51.0 [facility] Comment on above: Order Comment: Speci men Type: BLOOD SPECIMEN [facility] Address: [address] [place] [address] Performed By: #### 5 8410-2 #### [facility] CLIA [id number] [place] [address] [place] Hemoglobin (Bld) [Mass/Vol] 11.5 g/dL Low 13.0-17.0 [facility] Comment on above: Order Comment: Speci men Type: BLOOD SPECIMEN [facility] Address: [address] [place] [address] Performed By: #### 5 8410-2 #### [facility] [place] [id number] MCH (RBC) [Entitic mass] 26.2 pg Normal 26.0-34.0 [facility] Comment on above: Order Comment: Speci men Type: BLOOD SPECIMEN [facility] Address: [address] [place] [address] Performed By: #### 5 8410-2 #### [facility] [place] [id number] [address] [place] [address] [place] MCHC (RBC) [Mass/Vol] 32.2 g/dL Normal 30.5-36.0 [facility] Comment on above: Order Comment: Speci men Type: BLOOD SPECIMEN [facility] Address: [address] [place] [address] Performed By: #### 5 8410-2 #### [facility] [place] [id number] [address] [place] [address] [place] MCV (RBC) [Entitic vol] 81.3 fL Normal 80.0-100.0 [facility] Comment on above: Order Comment: Speci men Type: BLOOD SPECIMEN [facility] Address: [address] [place] [address] Performed By: #### 5 8410-2 #### [facility] [place] [id number] [place] Nucleated RBC (Bld) [#/Vol] 10*3/uL Normal <0.01 [facility] Comment on above: Order Comment: Speci men Type: BLOOD SPECIMEN [facility] Address: [address] [place] [address] Performed By: #### 5 8410-2 #### [facility] [place] [id number] [address] [place] [address] [place] Platelet mean volume (Bld) [Entitic vol] 9.3 fL Normal 9.0-12.7 [facility] Comment on above: Order Comment: Speci men Type: BLOOD SPECIMEN [facility] Address: [address] [place] [address] Performed By: #### 5 8410-2 #### [facility] CLIA [id number] [address] [place] [address] [place] Platelets (Bld) [#/Vol] 134 10*3/uL Low 150-400 [facility] Comment on above: Order Comment: Speci men Type: BLOOD SPECIMEN [facility] Address: [address] [place] [address] Performed By: #### 5 8410-2 #### [facility] CLIA [id number] [place] [address] [place] RBC (Bld) [#/Vol] 4.39 10*6/uL Normal 4.20-6.00 [facility] Comment on above: Order Comment: Speci men Type: BLOOD SPECIMEN [facility] Address: [address] [place], [place] [address] Performed By: #### 5 8410-2 #### [facility] CLIA [id number] [id number] [place] [address] [place] WBC (Bld) [#/Vol] 9.95 10*3/uL Normal 3.70-11.00 [facility] Comment on above: Order Comment: Speci men Type: BLOOD SPECIMEN [facility] Address: [address] [place], [place] [address] Performed By: #### 5 8410-2 #### [facility] CLIA [id number] [place] [id number] [facility] CNDSon 09-12-2022 CNDS HNO ID: [id number] Author: Noelle Vega MD Service: Urology Author Type: Physician Type: Discharge Summary Filed: 09/13/2022 1:41 PM Note Text: [facility] [place] [id number] or ([phone] [facility] DISCHARGE SUMMARY Patient Name: Dat [...] appointments. Valdo Mcghee MD PGY-5, Urology Pager: [phone] [facility] STAFF PHYSICIAN NOTE OF PERSONAL INVOLVEMENT [...] Staff - Urology September 13, 2022 Normal [facility] HISTORY PHYSICALon HISTORY PHYSICAL HNO ID: [id number] Author: Fani Vallejo APRN.CNP Service: Hospital Medicine [...] 2022 6:02 AM ----- [facility]MENT OF [facility] MEDICINE INITIAL CONSULT SERVICE DATE: 09/11/2022 SERVICE TIME: 7:50 PM Primary Care Physician: Sp Chowdary, NIGHT AND WEEKEND COVERAGE: JOELLE COVERAGE: Days: [phone], please contact via [employer] Nights: [phone] - 3rd floor: please page CC Hospitalist night cover [phone] - 4th floor: please page CC Hospitalist night cover [phone] - 5th floor: please page CC Hospitalist night cover [phone] REASON FOR CONSULT: Hyperkalemia REQUESTING PHYSICIAN: Carmella [...] H P (more content not included)... Normal [facility] NURSING PROGon 09-12-2022 NURSING PROG HNO ID: [id number] Author: Taylor Barr, RN Service: Nursing Author [...] discharge orders reviewed with pt understanding. Normal [facility] POTASSIUM BLDon 09-12-2022 Potassium [Moles/Vol] 4.9 mmol/L Normal 3.7-5.1 [facility] Comment on above: Order Comment: Speci men Type: BLOOD SPECIMENOrdering Facility: [facility] Address: [address] [place] [address] Performed By: #### K 1 ####[facility]ATORYCLIA [id number] [facility] [place] ANES POSTPROC EVALon 022 ANES POSTPROC EVAL HNO ID: [id number] Author: Melisa Rangel MD Service: Anesthesiology Author [...] September 11, 2022 TIME: 1:00 PM CSN: [id number] [facility] ANES PRE-OPon 09-11-2022 ANES PRE-OP HNO ID: [id number] Author: Melisa Rangel MD Service: Anesthesiology Author [...] September 11, 2022 TIME: 7:15 AM CSN: [id number] [facility] BRIEF OP NOTon 09-11-2022 BRIEF OP NOT HNO ID: [id number] Author: Roman Ornelas MD Service: Urology Author Type: Fellow Type: Brief Op Note Filed: 09/11/2022 11:27 AM Note Text: UROLOGY SERVICE BRIEF OPERATIVE NOTE LOG ID: [id number] Surgery/Procedure Date: 09/11/2022 Incision/Procedure Start Time: 8:06 AM Incision Close/Procedure End Time: 11:12 AM Patient Age: [age] year old Surgeon(s)/Proceduralist( s) and Pulp Drier(s): Surgeon(s) and Role: * Noelle Vega MD [...] x 26cm JJ left ureteral stent [address] Cultures: None Findings: [...] 11, 2022 TIME: 11:21 AM PAGER/CONTACT #: [phone] Normal [facility] Basic metabolic 2000 panelon 09-11-2022 Anion gap [Moles/Vol] 9 mmol/L Normal -18 [facility] Comment on above: Order Comment: Speci men Type: BLOOD SPECIMEN [facility] Address: [address] [place] [address] [place] [id number] Performed By: #### 5 8410-2 #### [facility] CLIA [id number] [address] [place] [address] [place] Calcium [Mass/Vol] 8.6 mg/dL Normal 8.5-10.2 [facility] Comment on above: Order Comment: Speci men Type: BLOOD SPECIMEN [facility]: [facility] Address: [address] [place] [address] Performed By: #### 5 8410-2 #### [facility] CLIA [id number] [place] [address] [place] Chloride [Moles/Vol] 105 mmol/L Normal 97-105 [facility] Comment on above: Order Comment: Speci men Type: BLOOD SPECIMEN [facility] Address: [address] [place] [address] Performed By: #### 5 8410-2 #### [facility] [place] [id number] [address] [place] [address] [place] CO2 [Moles/Vol] 22 mmol/L Normal 22-30 [facility] ital Comment on above: Order Comment: Speci men Type: BLOOD SPECIMEN [facility] Address: [address] [place] [address] Performed By: #### 5 8410-2 #### [facility] IA [id number] [address] [place] [address] [place] Creatinine [Mass/Vol] 1.67 mg/dL High 0.73-1.22 [facility] Comment on above: Order Comment: Speci men Type: BLOOD SPECIMEN [facility] Address: [address] [place] [address] Performed By: #### 5 8410-2 #### [facility] IA [id number] [address] [place] [address] [place] ESTIMATED GLOMERULAR FILTRATION RATE 47 mL/min/1.73m??? Low >=60 [facility] Comment on above: Order Comment: Speci men Type: BLOOD SPECIMEN [facility] Address: [address] [place] [id number] Result Comment: Carole mated Glomerular Filtration Rate [...] 8410-2 #### [facility] CLIA [id number] [address] [place] [address] [place] Glucose [Mass/Vol] 214 mg/dL High 74-99 [facility] Comment on above: Order Comment: Demar arrington Type: BLOOD SPECIMEN [facility] Address: [address] [place] [address] Result Comment: The [place] Diabetes Association (ADA) provides guidance for cutoff [...] Standards of Medical Care in Diabetes 2016, [place] Diabetes Association. Diabetes Care. 2016.39(Suppl 1). Performed By: #### 5 8410-2 #### [facility] CLIA [id number] [address] [place] [address] [place] Potassium [Moles/Vol] 5.7 mmol/L High 3.7-5.1 [facility] Comment on above: Order Comment: Demar arrington Type: BLOOD SPECIMEN [facility] Address: [address] [place] [phone] Performed By: #### 5 8410-2 #### [facility] CLIA [id number] [address] [place] [address] [place] Sodium [Moles/Vol] 136 mmol/L Normal 136-144 [facility] Comment on above: Order Comment: Speci men Type: BLOOD SPECIMEN [facility] Address: [address] [place], [place] [address] Performed By: #### 5 8410-2 #### [facility] CLIA [id number] [address] [place] [address] [place] Urea nitrogen [Mass/Vol] 20 mg/dL Normal 9-24 [facility] Comment on above: Order Comment: Speci men Type: BLOOD SPECIMEN [facility] Address: [address] [place] [address] Performed By: #### 5 8410-2 #### [facility] CLIA [id number] [address] [place] [address] [facility] [place] CALCULI ANALYSISon 2 Calculus analysis [Interp] Normal [facility] Comment on above: Order Comment: Speci men Type: CALCULUS SPECIMENOrdering Facility: [facility] Address: [address] [place] [address] Result Comment: This test was developed and its performance characteristics determined by [facility] Pathology and Laboratory Medicine [place] (-PLMI). It has not been cleared or approved by the FDA. -[facility] is regulated under CLIA as qualified to perform high-complexity testing. This test is used for clinical purposes. It should not be regarded as investigational or for research. Performed By: #### C SA ####[facility] LABCLIA [id number] [place] [address] [place] CALCULUS COLOR BROWN Normal [facility] Comment on above: Order Comment: Speci men Type: CALCULUS SPECIMENOrdering Facility: [facility] Address: [address] [place], [place] [address] Performed By: #### C SA ####[facility] LABCLIA [id number] [address] [place] CALCULUS COMPOSITION 1 70% Calcium Oxalate Monohydrate Normal [facility] Comment on above: Order Comment: Speci men Type: CALCULUS SPECIMENOrdering Facility: [facility] Address: [address] [place] [address] Performed By: #### C SA ####[facility] LABCLIA [id number] [address] [place] CALCULUS COMPOSITION 2 20% Calcium Oxalate Dihydrate Normal [facility] Comment on above: Order Comment: Speci men Type: CALCULUS SPECIMENOrdering Facility: [facility] Address: [address] [place] [address] Performed By: #### C SA ####[facility] LABCLIA [id number] [address] [place] CALCULUS COMPOSITION 3 10% Minor Components Normal [facility] Comment on above: Order Comment: Speci men Type: CALCULUS SPECIMENOrdering Facility: [facility] Address: [address] [place] [address] Performed By: #### C SA ####[facility] LABCLIA [id number] [address] [place] CALCULUS SIZE AND WT Multiple pieces. 2.8188 GRAMS Normal [facility] Comment on above: Order Comment: Speci men Type: CALCULUS SPECIMENOrdering Facility: [facility] Address: [address] [place] [address] Performed By: #### C SA ####[facility] LABCLIA [id number] [address] [place] CALCULUS TYPE CALCULI/CALCULUS Normal [facility] Comment on above: Order Comment: Speci men Type: CALCULUS SPECIMENOrdering Facility: [facility] Address: [address] [place] [phone] Performed By: #### C SA ####[facility] LABCLIA [id number] [place] [address] [place] CBC panel Auto (Bld)on 09-11 Erythrocyte distribution width (RBC) [Ratio] 13.8 % Normal 11.5-15.0 [facility] Comment on above: Order Comment: Speci men Type: BLOOD SPECIMEN [facility] Address: [address] [place] [address] Performed By: #### 5 8410-2 #### [facility] CLIA [id number] Hematocrit (Bld) [Volume fraction] 40.1 % Normal 39.0-51.0 [facility] Comment on above: Order Comment: Speci men Type: BLOOD SPECIMEN [facility] Address: [address] [place] [address] Performed By: #### 5 8410-2 #### [facility] CLIA [id number] [place] Hemoglobin (Bld) [Mass/Vol] 12.3 g/dL Low 13.0-17.0 [facility] Comment on above: Order Comment: Speci men Type: BLOOD SPECIMEN [facility] Address: [address] [place] [address] Performed By: #### 5 8410-2 #### [facility] IA [id number] MCH (RBC) [Entitic mass] 25.6 pg Low 26.0-34.0 [facility] Comment on above: Order Comment: Speci men Type: BLOOD SPECIMEN [facility] Address: [address] [place] [address] Performed By: #### 5 8410-2 #### [facility] CLIA [id number] [place] MCHC (RBC) [Mass/Vol] 30.7 g/dL Normal 30.5-36.0 [facility] Comment on above: Order Comment: Speci men Type: BLOOD SPECIMEN [facility] Address: [address] [place], [place] [address] Performed By: #### 5 8410-2 #### [facility] IA [id number] [address] OF [facility] MCV (RBC) [Entitic vol] 83.5 fL Normal 80.0-100.0 [facility] Comment on above: Order Comment: Speci men Type: BLOOD SPECIMEN [facility] Address: [address] [place], [place] [address] Performed By: #### 5 8410-2 #### [facility] IA [id number] [place] Nucleated RBC (Bld) [#/Vol] 10*3/uL Normal <0.01 [facility] Comment on above: Order Comment: Speci men Type: BLOOD SPECIMEN [facility] Address: [address] [place], [place] [address] Performed By: #### 5 8410-2 #### [facility] IA [id number] [address] [place] [address] [place] Platelet mean volume (Bld) [Entitic vol] 9.5 fL Normal 9.0-12.7 [facility] Comment on above: Order Comment: Speci men Type: BLOOD SPECIMEN [facility] Address: [address] [place], [place] [address] Performed By: #### 5 8410-2 #### [facility] IA [id number] [address] [place] Platelets (Bld) [#/Vol] 137 10*3/uL Low 150-400 [facility] Comment on above: Order Comment: Speci men Type: BLOOD SPECIMEN [facility] Address: [address] [place], [place] [address] Performed By: #### 5 8410-2 #### [facility] IA [id number] [address] [place] [address] [place] RBC (Bld) [#/Vol] 4.80 10*6/uL Normal 4.20-6.00 [facility] Comment on above: Order Comment: Speci men Type: BLOOD SPECIMEN [facility] Address: [address] [place] [phone] Performed By: #### 5 8410-2 #### [facility] CLIA [id number] [place] [id number] [facility] WBC (Bld) [#/Vol] 7.34 10*3/uL Normal 3.70-11.00 [facility] Comment on above: Order Comment: Speci men Type: BLOOD SPECIMEN [facility] Address: [address] [place], [place] [address] Performed By: #### 5 8410-2 #### [facility] CLIA [id number] ECG COMPLETEon 09-11-2022 ECG COMPLETE Ventricular Rate : 9 0 BPM Atrial Rate : 90 BPM P-R Interval : 175 ms QRS Duration : 92 ms Q-T Interval : 360 ms QTC Calculation(Bazett) : 441 ms Calculated P Puposky : 42 degrees Calculated R Puposky : -16 degrees Calculated T Puposky : 29 degrees Sinus rhythm Borderline left axis deviation Abnormal R-wave progression, early transition Otherwise Normal ECG Confirmed by Rubén CURRIE RAVISANKAR ([id number]) on 09/15/2022 2:00:08 PM NAME : DAT LOPEZ PID : [id number] : 1960 Gender : Male Race : ORD : [id number] Procedure Date : Sep 11 2022 20:12:04 [...] Referred By : , Acquired by : [id number], [facility] HISTORY PHYSICALon HISTORY PHYSICAL HNO ID: [id number] Author: Noelle Vega MD Service: Urology Author [...] Vega MD September 11, 2022 7:23 AM [facility] NURSING PROGon 09-11-2022 NURSING PROG HNO ID: [id number] Author: Oanh Mc RN Service: Nursing Author Type: Registered Nurse Type: Nursing Progress Note Filed: 09/11/2022 5:34 PM Note Text: Other: Page sent to surgical pager. K noted to be 5.8. Will await further instructions. LOPEZ 534- Potassium is 5.8 Thanks Oanh 5570 [facility] NURSING PROG HNO ID: [id number] Author: Malena Salvador RN Service: Nursing Author Type: Registered Nurse Type: Nursing Progress Note Filed: 09/11/2022 12:55 PM Note Text: Transfer Note: Patient transferred into room/unit 534 in stable condition. Actions taken: No futher actions taken at this time. Will continue to monitor and check with patient. [facility] NURSING PROG HNO ID: [id number] Author: Radha Rae, RN Service: ? Author Type: Registered Nurse Type: Nursing Progress Note Filed: 09/11/2022 12:30 PM Note Text: Report from Kaushal Norton for coverage. Pt denies pain at this time. VSS. 1210 - Pt tolerating ice chips. 1225 - Pt continues to deny pain. Report called to [address] [place] [address] OPERATIVE NOon 09-11-2022 OPERATIVE NO HNO ID: [id number] Author: Noelle Vega MD Service: Urology Author Type: Physician Type: Operative Report Filed: 09/11/2022 12:07 PM Note Text: OPERATIVE/PROCEDURE REPORT LOG ID: [id number] SURGERY/PROCEDURE DATE: 09/11/2022 INCISION/PROCEDURE START TIME: 8:06 AM INCISION CLOSE/PROCEDURE END TIME: 11:12 AM SURGEON(S)/PROCEDURALIST( S) AND BUCKET HOOKER(S): Surgeon(s) and Role: * Noelle Vega MD [...] larger stone burden in the upper pole. Med Peds images were obtained in 2 planes using [...] working wi (more content not included)... Normal [facility] POTASSIUM Don 09-11-2022 Potassium [Moles/Vol] 5.7 mmol/L High 3.7-5.1 [facility] Comment on above: Order Comment: Demar arrington Type: BLOOD SPECIMEN [facility] Address: [address] [place] [address] Performed By: #### 5 8410-2 #### [facility] CLIA [id number] [address] [place] [address] [place] Potassium [Moles/Vol] 5.8 mmol/L High 3.7-5.1 [facility] Comment on above: Order Comment: Demar arrington Type: BLOOD SPECIMEN [facility] Address: [address] [place] [address] Performed By: #### 5 8410-2 #### [facility] CLIA [id number] [address] [place] [address] [place] XR CHEST 1V [...] Pulmonary vasculature is unremarkable. IMPRESSION: Bibasilar atelectasis. Shipping Supervisor: VITOR Transcribe Date/Time: Sep 11 2022 12:00P Dictated by : CECE GALVIN MD This examination was interpreted and the report reviewed and electronically signed by: CECE GALVIN MD on Sep 11 2022 12:01PM EST [id number] Normal [facility] 25(OH)D3 SerPl-mCncon 2021 25-hydroxyvitamin D3 [Mass/Vol] 42.6 ng/mL Normal 31.0-80.0 [facility] Comment on above: Order Comment: Speci men Type: BLOOD SPECIMENOrdering Facility: [facility] Address: [address] [place], [place] [phone] Result Comment: Clas sification of 25 [place] Vitamin D status: Deficiency/Insufficiency: < or = 30 ng/ml. Sufficiency/Optimal Levels: 31-80 ng/mL Toxicity: > 100 ng/mL. Test performed by chemiluminescent immunoassay. Performed By: #### 1 989-3 ####[facility] LABCLIA [id number] [place] [address] [place] Bacteria Ur Culton 2 Bacteria identified Cx Nom (U) CULTURE, URINE: No growth (<1,000 CFU/ml) Normal [facility] Comment on above: Performed By: #### 6 30-4 ####[facility] LABCLIA [id number] [place] [address] [place] CBC W Auto Differential pane l (Bld)on 08-28-2022 Basophils (Bld) [#/Vol] 0.03 10*3/uL Normal <0.11 [facility] Comment on above: Order Comment: Speci men Type: BLOOD SPECIMENOrdering Facility: [facility] Address: [address] [phone] Performed By: #### 5 7021-8 ####[facility]ATORYCLIA [id number] [facility] [place] [address] [place] Basophils/100 WBC (Bld) 0.4 % Normal [facility] Comment on above: Order Comment: Speci men Type: BLOOD SPECIMENOrdering Facility: [facility] Address: [address] [place] [address] Performed By: #### 5 7021-8 ####[facility]ATORYIA [id number] [place] [address] [place] Differential cell count method Nom (Bld) Auto Normal [facility] Comment on above: Order Comment: Speci men Type: BLOOD SPECIMENOrdering Facility: [facility] Address: [address] [place] [address] Performed By: #### 5 7021-8 ####[facility] [id number] [place] [address] [place] Eosinophils (Bld) [#/Vol] 0.31 10*3/uL Normal <0.46 [facility] Comment on above: Order Comment: Speci men Type: BLOOD SPECIMENOrdering Facility: [facility] Address: [address] [place] [address] Performed By: #### 5 7021-8 ####[facility] [id number] [place] [address] [place] Eosinophils/100 WBC (Bld) 4.4 % Normal [facility] Comment on above: Order Comment: Speci men Type: BLOOD SPECIMENOrdering Facility: [facility] Address: [address] [place], [place] [address] Performed By: #### 5 7021-8 ####[facility]ORYIA [id number] [address] [place] Erythrocyte distribution width (RBC) [Ratio] 13.9 % Normal 11.5-15.0 [facility] Comment on above: Order Comment: Speci men Type: BLOOD SPECIMENOrdering Facility: [facility] Address: [address] [place], [place] [address] Performed By: #### 5 7021-8 ####[facility] [id number] [address] [place] Hematocrit (Bld) [Volume fraction] 40.0 % Normal 39.0-51.0 [facility] Comment on above: Order Comment: Speci men Type: BLOOD SPECIMENOrdering Facility: [facility] Address: [address] [place] [address] Performed By: #### 5 7021-8 ####[facility] [id number] [place] [address] [place] Hemoglobin (Bld) [Mass/Vol] 13.0 g/dL Normal 13.0-17.0 [facility] Comment on above: Order Comment: Speci men Type: BLOOD SPECIMENOrdering Facility: [facility] Address: [address] [place] [address] Performed By: #### 5 7021-8 ####[facility] [id number] [place] [address] [place] IMMATURE GRAN % 0.4 % Normal [facility] ital Comment on above: Order Comment: Speci men Type: BLOOD SPECIMENOrdering Facility: [facility] Address: [address] [place] [address] Performed By: #### 5 7021-8 ####[facility] [id number] [place] [address] [place] IMMATURE GRAN ABS 0.03 k/uL Normal <0.10 [facility] Comment on above: Order Comment: Speci men Type: BLOOD SPECIMENOrdering Facility: [facility] Address: [address] [place] [address] Performed By: #### 5 7021-8 ####[facility] [id number] [place] [address] [place] Lymphocytes (Bld) [#/Vol] 2.20 10*3/uL Normal 1.00-4.00 [facility] Comment on above: Order Comment: Speci men Type: BLOOD SPECIMENOrdering Facility: [facility] Address: [address] [place] [address] Performed By: #### 5 7021-8 ####[facility] [id number] [address] [place] Lymphocytes/100 WBC (Bld) 31.2 % Normal [facility] Comment on above: Order Comment: Speci men Type: BLOOD SPECIMENOrdering Facility: [facility] Address: [address] [place] [address] Performed By: #### 5 7021-8 ####[facility] [id number] [address] [place] MCH (RBC) [Entitic mass] 26.5 pg Normal 26.0-34.0 [facility] Comment on above: Order Comment: Speci men Type: BLOOD SPECIMENOrdering Facility: [facility] Address: [address] [place] [address] Performed By: #### 5 7021-8 ####[facility] [id number] [address] [place] MCHC (RBC) [Mass/Vol] 32.5 g/dL Normal 30.5-36.0 [facility] Comment on above: Order Comment: Speci men Type: BLOOD SPECIMENOrdering Facility: [facility] Address: [address] [place], [place] [address] Performed By: #### 5 7021-8 ####[facility] [id number] [address] [place] MCV (RBC) [Entitic vol] 81.5 fL Normal 80.0-100.0 [facility] Comment on above: Order Comment: Speci men Type: BLOOD SPECIMENOrdering Facility: [facility] Address: [address] [place], [place] [address] Performed By: #### 5 7021-8 ####[facility] [id number] [place] [address] [place] Monocytes (Bld) [#/Vol] 0.44 10*3/uL Normal <0.87 [facility] Comment on above: Order Comment: Speci men Type: BLOOD SPECIMENOrdering Facility: [facility] Address: [address] [place] [address] Performed By: #### 5 7021-8 ####[facility]ORATORYCLIA [id number] [place] [address] [place] Monocytes/100 WBC (Bld) 6.2 % Normal [facility] Comment on above: Order Comment: Speci men Type: BLOOD SPECIMENOrdering Facility: [facility] Address: [address] [place], [place] [address] Performed By: #### 5 7021-8 ####[facility]ITAL[facility] [id number] [place] [address] [place] Neutrophils (Bld) [#/Vol] 4.05 10*3/uL Normal 1.45-7.50 [facility] Comment on above: Order Comment: Speci men Type: BLOOD SPECIMENOrdering Facility: [facility] Address: [address] [place] [address] Performed By: #### 5 7021-8 ####[facility]IA [id number] [place] [address] [place] Neutrophils/100 WBC (Bld) 57.4 % Normal [facility] Comment on above: Order Comment: Speci men Type: BLOOD SPECIMENOrdering Facility: [facility] Address: [address] [place], [place] [address] Performed By: #### 5 7021-8 ####[facility]ORATORYIA [id number] [place] [address] [place] Nucleated RBC (Bld) [#/Vol] 10*3/uL Normal <0.01 [facility] Comment on above: Order Comment: Speci men Type: BLOOD SPECIMENOrdering Facility: [facility] Address: [address] [place], [place] [address] Performed By: #### 5 7021-8 ####[facility] LABORATORYIA [id number] [place] [address] [place] Nucleated RBC/100 WBC (Bld) [Ratio] 0.0 /100 WBC Normal [facility] Comment on above: Order Comment: Speci men Type: BLOOD SPECIMENOrdering Facility: [facility] Address: [address] [place], [place] [address] Performed By: #### 5 7021-8 ####[facility] [id number] [place] [address] [place] Platelet mean volume (Bld) [Entitic vol] 9.7 fL Normal 9.0-12.7 [facility] Comment on above: Order Comment: Speci men Type: BLOOD SPECIMENOrdering Facility: [facility] Address: [address] [place] [address] Performed By: #### 5 7021-8 ####[facility] [id number] [place] [address] [place] Platelets (Bld) [#/Vol] 169 10*3/uL Normal 150-400 [facility] Comment on above: Order Comment: Speci men Type: BLOOD SPECIMENOrdering Facility: [facility] Address: [address] [place], [place] [address] Performed By: #### 5 7021-8 ####[facility]ITALIA [id number] [place] [id number] [place] RBC (Bld) [#/Vol] 4.91 10*6/uL Normal 4.20-6.00 [facility] Comment on above: Order Comment: Speci men Type: BLOOD SPECIMENOrdering Facility: [facility] Address: [address] [place] [address] Performed By: #### 5 7021-8 ####[facility]ITALIA [id number] [place] [address] [place] WBC (Bld) [#/Vol] 7.06 10*3/uL Normal 3.70-11.00 [facility] Comment on above: Order Comment: Speci men Type: BLOOD SPECIMENOrdering Facility: [facility] Address: [address] [place] [address] Performed By: #### 5 7021-8 ####[facility] LABORATORYCLIA [id number] [facility] [address] [place] CT FLANK WO IVCONon 08-28-[address] FLANK WO IVCON * * *Final Report* * * DATE OF EXAM: Aug 28 2022 7:10AM [facility] 0529 - CT FLANK WO IVCON [...] lesions. Lower thorax: Lower lungs are clear. Med Peds (topogram) images: Unremarkable. IMPRESSION: Extensive amount of left-sided urolithiasis with left-sided double-J ureteral stent in place. Shipping Supervisor: PSCGurpreet Transcribe Date/Time: Aug 28 2022 10:17A Dictated by : CECE GALVIN MD This examination was interpreted and the report reviewed and electronically signed by: CECE GALVIN MD on Aug 28 2022 10:31AM EST [id number] Normal [facility] Comprehensive metabolic 2000 panelon 08-28-2022 Albumin [Mass/Vol] 4.5 g/dL Normal 3.9-4.9 [facility] Comment on above: Order Comment: Speci men Type: BLOOD SPECIMENOrdering Facility: [facility] Address: [address] [place] [address] Performed By: #### 2 4323-8 ####[facility]IA [id number] [place] [address] [place] ALP [Catalytic activity/Vol] 99 U/L Normal 38-113 [facility] Comment on above: Order Comment: Speci men Type: BLOOD SPECIMENOrdering Facility: [facility] Address: [address] [place] [address] Performed By: #### 2 4323-8 ####[facility]ITALIA [id number] [place] [address] [place] ALT [Catalytic activity/Vol] 17 U/L Normal 10-54 [facility] Comment on above: Order Comment: Speci men Type: BLOOD SPECIMENOrdering Facility: [facility] Address: [address] [address] Performed By: #### 2 4323-8 ####[facility]ORATORYIA [id number] [place] [address] [place] Anion gap [Moles/Vol] 9 mmol/L Normal 9-18 [facility] Comment on above: Order Comment: Speci men Type: BLOOD SPECIMENOrdering Facility: [facility] Address: [address] [place], [place] [address] Performed By: #### 2 4323-8 ####[facility] LABORATORYCLIA [id number] [place] [address] [place] AST [Catalytic activity/Vol] 20 U/L Normal 14-40 [facility] Comment on above: Order Comment: Speci men Type: BLOOD SPECIMENOrdering Facility: [facility] Address: [address] [place] [address] Performed By: #### 2 4323-8 ####[facility]ORATORYCLIA [id number] [place] [address] [place] Bilirubin [Mass/Vol] 0.2 mg/dL Normal 0.2-1.3 [facility] Comment on above: Order Comment: Speci men Type: BLOOD SPECIMENOrdering Facility: [facility] Address: [address] [place], [place] [address] Performed By: #### 2 4323-8 ####[facility]ORATORYIA [id number] [place] [address] [place] Calcium [Mass/Vol] 9.5 mg/dL Normal 8.5-10.2 [facility] Comment on above: Order Comment: Speci men Type: BLOOD SPECIMENOrdering Facility: [facility] Address: [address] [place], [place] [address] Performed By: #### 2 4323-8 ####[facility] LABORATORYCLIA [id number] [place] [address] [place] Chloride [Moles/Vol] 106 mmol/L High 97-105 [facility] Comment on above: Order Comment: Speci men Type: BLOOD SPECIMENOrdering Facility: [facility] Address: [address] [place], [place] [address] Performed By: #### 2 4323-8 ####[facility]ATORYCLIA [id number] [place] [address] [place] CO2 [Moles/Vol] 25 mmol/L Normal 22-30 [facility] Comment on above: Order Comment: Speci men Type: BLOOD SPECIMENOrdering Facility: [facility] Address: [address] [address] Performed By: #### 2 4323-8 ####[facility]ORATORYIA [id number] [address] [place] Creatinine [Mass/Vol] 1.22 mg/dL Normal 0.73-1.22 [facility] Comment on above: Order Comment: Speci men Type: BLOOD SPECIMENOrdering Facility: [facility] Address: [address] [place] [address] Performed By: #### 2 4323-8 ####[facility] [id number] [address] ESTIMATED GLOMERULAR FILTRATION RATE 68 mL/min/1.73m??? Normal >=60 [facility] Comment on above: Order Comment: Speci men Type: BLOOD SPECIMENOrdering Facility: [facility] Address: [address] [place] [address] Result Comment: Carole mated Glomerular Filtration Rate [...] #### 2 4323-8 ####[facility]ORATORYIA [id number] [address] [place] Glucose [Mass/Vol] 158 mg/dL High 74-99 [facility] Comment on above: Order Comment: Speci men Type: BLOOD SPECIMENOrdering Facility: [facility] Address: [address] [place] [address] Result Comment: The [place] Diabetes Association (ADA) provides guidance for cutoff [...] Standards of Medical Care in Diabetes 2016, [place] Diabetes Association. Diabetes Care. 2016.39(Suppl 1). Performed By: #### 2 4323-8 ####[facility]ATORYCLIA [id number] [place] [address] [place] Potassium [Moles/Vol] 4.7 mmol/L Normal 3.7-5.1 [facility] Comment on above: Order Comment: Speci men Type: BLOOD SPECIMENOrdering Facility: [facility] Address: [address] [place] [address] Performed By: #### 2 4323-8 ####[facility]IA [id number] [place] [address] [place] Protein [Mass/Vol] 6.7 g/dL Normal 6.3-8.0 [facility] Comment on above: Order Comment: Shereeni men Type: BLOOD SPECIMENOrdering Facility: [facility] Address: [address] [place] [address] Performed By: #### 2 4323-8 ####[facility]ATORYCLIA [id number] [place] [address] [place] Sodium [Moles/Vol] 140 mmol/L Normal 136-144 [facility] Comment on above: Order Comment: Speci men Type: BLOOD SPECIMENOrdering Facility: [facility] Address: [address] [address] Performed By: #### 2 4323-8 ####[facility]ORATORYCLIA [id number] [place] [address] [place] Urea nitrogen [Mass/Vol] 23 mg/dL Normal 9-24 [facility] Comment on above: Order Comment: Speci men Type: BLOOD SPECIMENOrdering Facility: [facility] Address: [address] [place] [address] Performed By: #### 2 4323-8 ####[facility]ORATORYCLIA [id number] [facility] [place] [address] [facility] HISTORY PHYSICALon HISTORY PHYSICAL HNO ID: [id number] Author: Mechelle Burnett PA-C Service: ? Author Type: Physician Pulp Drier Type: HANDP Filed: 08/29/2022 9:43 AM Note [...] Prior to Admission medications as of 08/28/22 0922 Medication Sig Last Dose Taking metFORMIN (GLUCOPHAGE) [...] fevers. Neuro: No history of TIA's, stroke, BAKING ASSISTANT tumor, impaired sensorium, hemiplegia, paraplegia or quadraplegia. No neurological symptoms or problems. Respiratory: No history of current cough or dyspnea, or pneumonia in the past 6 weeks. No history of respiratory/pulmonary symptoms or problems. Cardiovascular: +HTN, HLD, POTS- no recent episodes Negative for Recent AR, Angina, Chest Pain, CHF, DVT/PE GI: No [...] problems. Musc (more content not included)... Normal [facility] HbA1c (Bld)on 08-28-2022 Average glucose Estimated from glycated hemoglobin (Bld) [Mass/Vol] 131 mg/dL Normal [facility] Comment on above: Order Comment: Demar arrington Type: BLOOD SPECIMEN [facility] Address: [address] [address] Result Comment: eAG: (Estimated average glucose) is a calculated value from HgbA1c and is environmental marketing representative of the average blood glucose level in the last 2-3 month period. Performed By: #### 5 8410-2 #### [facility] CLIA [id number] [facility]. [address] [facility] HbA1c (Bld) [Mass fraction] 6.2 % High 4.3-5.6 [facility] Comment on above: Order Comment: Demar arrington Type: BLOOD SPECIMEN [facility] Address: [address] [address] Result Comment: Amer ican Diabetes Association guidelines indicate that patients with HgbA1c in the range 5.7-6.4% are at increased risk for development of diabetes, and intervention by lifestyle modification may be beneficial. HgbA1c greater or equal to 6.5% is considered diagnostic of diabetes. Performed By: #### 5 8410-2 #### [facility] CLIA [id number] [facility] [place] [address] [place] PT panel Coag (PPP)on 2021 INR Coag (PPP) [Relative time] 1.0 {INR} Normal 0.9-1.3 [facility] Comment on above: Order Comment: Demar arrington Type: BLOOD SPECIMEN [facility] Address: [address] [place] [address] Result Comment: No min K Antagonist (VKA) Therapeutic Range: INR 2 to 3 (Target INR of 2.5) Note: For patients treated with VKA drugs, such as warfarin, the [place] College of Chest Physicians 2012 Guideline recommends [...] Chest 2012, 141:7S-47S Soo RA, et al. [facility] 2017, 70: 252-289 Performed By: #### 5 8410-2 #### [facility] CLIA [id number] [address] [place] [address] [place] PT Coag (PPP) [Time] 10.3 s Normal 9.7-13.0 [facility] Comment on above: Order Comment: Demar arrington Type: BLOOD SPECIMEN [facility] Address: [address] [place] [address] Performed By: #### 5 8410-2 #### [facility] CLIA [id number] [place] [address] [place] PTH-Intact SerPl-ncon 08-19 Parathyrin.intact [Mass/Vol] 26 pg/mL Normal 15-65 [facility] Comment on above: Order Comment: Demar arrington Type: BLOOD SPECIMEN [facility] Address: [address] [place] [address] Performed By: #### 5 8410-2 #### [facility] CLIA [id number] TYPE AND SCREEN,30 DAYon ABO O Normal [facility] Comment on above: Order Comment: Speci men Type: BLOOD SPECIMENOrdering Facility: [facility] Address: [address] [place] [address] Performed By: #### T SCR30 ####[facility] BANKIA [id number] [address] [place] HISTORICAL AB SCR STATUS Negative [facility] Comment on above: Order Comment: Speci men Type: BLOOD SPECIMENOrdering Facility: [facility] Address: [address] [place] [address] Performed By: #### T SCR30 ####[facility] [id number] [address] [place] Rh Nom (Bld) Positive Normal [facility] l Comment on above: Order Comment: Speci men Type: BLOOD SPECIMENOrdering Facility: [facility] Address: [address] [place] [address] Performed By: #### T SCR30 ####[facility]STITUTEIA [id number] [address] [place] Urinalysis complete panel (U )on 08-28-2022 Bilirubin Ql (U) Negative Normal Negative [facility] Comment on above: Order Comment: Speci men Type: BLOOD SPECIMEN [facility] Address: [address] [place] [address] Performed By: #### 5 8410-2 #### [facility] CLIA [id number] [address] [place] [address] [place] Clarity (Unsp spec) Cloudy Abnormal Clear [facility] Comment on above: Order Comment: Speci men Type: BLOOD SPECIMEN [facility] Address: [address] [place] [address] Performed By: #### 5 8410-2 #### [facility] IA [id number] [address] [place] [address] [place] Color (U) [place] Abnormal Yellow [facility] Comment on above: Order Comment: Speci men Type: BLOOD SPECIMEN [facility] Address: [address] [place] [address] Performed By: #### 5 8410-2 #### [facility] IA [id number] [address] [place] [address] [place] Glucose Test strip (U) [Mass/Vol] Negative Normal Negative [facility] Comment on above: Order Comment: Speci men Type: BLOOD SPECIMEN [facility] Address: [address] [place] [address] Performed By: #### 5 8410-2 #### [facility] IA [id number] [address] [place] [address] [place] Hemoglobin Ql (U) 3+ Abnormal Negative [facility] Comment on above: Order Comment: Speci men Type: BLOOD SPECIMEN [facility] Address: [address] [place] [address] Performed By: #### 5 8410-2 #### [facility] IA [id number] [address] [place] [address] [place] Ketones Ql (U) Negative Normal Negative [facility] Comment on above: Order Comment: Speci men Type: BLOOD SPECIMEN [facility] Address: [address] [place] [address] Performed By: #### 5 8410-2 #### [facility] IA [id number] [address] [place] [address] [place] Leukocyte esterase Test strip Ql (U) 1+ Abnormal Negative [facility] Comment on above: Order Comment: Speci men Type: BLOOD SPECIMEN [facility] Address: [address] [address] Performed By: #### 5 8410-2 #### [facility] IA [id number] [address] [place] [address] [place] Nitrite Ql (U) Negative Normal Negative [facility] Comment on above: Order Comment: Speci men Type: BLOOD SPECIMEN [facility] Address: [address] [place] [address] Performed By: #### 5 8410-2 #### [facility] IA [id number] [address] [place] [address] [place] pH (U) 5.5 [pH] Normal 5.0-8.0 [facility] Comment on above: Order Comment: Speci men Type: BLOOD SPECIMEN [facility] Address: [address] [place] [address] Performed By: #### 5 8410-2 #### [facility] IA [id number] [address] [place] [address] [place] Protein (U) [Mass/Vol] Normal [facility] Comment on above: Order Comment: Speci men Type: BLOOD SPECIMEN [facility] Address: [address] [place] [address] Result Comment: Visi ble blood causes falsely elevated results for analyte Protein. Due to this limitation, Protein will not be reported for patients whose urine contains visible blood. Performed By: #### 5 8410-2 #### [facility] IA [id number] [address] [place] [address] [place] RBC LM.HPF (Urine sed) [#/Area] 11-25 /HPF Abnormal 0-3 /HPF [facility] Comment on above: Order Comment: Speci men Type: BLOOD SPECIMEN [facility] Address: [address] [place] [address] Performed By: #### 5 8410-2 #### [facility] IA [id number] [address] [place] [address] [place] Specific gravity (U) [Rel density] 1.014 Normal 1.005-1.030 [facility] Comment on above: Order Comment: Speci men Type: BLOOD SPECIMEN [facility] Address: [address] [place] [address] Performed By: #### 5 8410-2 #### [facility] IA [id number] [address] Urobilinogen Ql (U) 0.2 EU/dL Normal 0.2-1.0 EU/dL [facility] Comment on above: Order Comment: Speci men Type: BLOOD SPECIMEN [facility] Address: [address] [place] [address] Performed By: #### 5 8410-2 #### [facility] IA [id number] [place] [address] WBC LM.HPF (Urine sed) [#/Area] 6-10 /HPF Abnormal 0-5 /HPF [facility] Comment on above: Order Comment: Speci men Type: BLOOD SPECIMEN [facility] Address: [address] [place] [address] Performed By: #### 5 8410-2 #### [facility] IA [id number] [address] [place] [address] aPTT PPPon 08-28-2022 aPTT Coag (PPP) [Time] 27.0 s Normal 23.0-32.4 [facility] Comment on above: Order Comment: Speci men Type: BLOOD SPECIMEN [facility] Address: [address] [place] [address] Performed By: #### 5 8410-2 #### [facility] IA [id number] [address] [place] [address] CNPAnali 08-25-2022 CNPN Telephone (URFMOB) ----- DAT LOPEZ ([id number]) 1960 M Date Time Provider Department 08/25/22 [...] Fully Assessed Reason for Visit: Patient Question [5640] Prescriptions as of 08/28/2022 - metFORMIN (GLUCOPHAGE) [...] Encounter Status:Closed by EVELYN HICKS on 08/28/22 [facility] Telephone (URAconexOB) ----- DAT LOPEZ ([id number]) 1960 M Date Time Provider Department 08/24/22 [place] During your visit today, we recorded the following information about you: Eddie Freed [facility] 08/24/2022 3:53 PM Signed Called patient to review preop appts and instructions. Unable to leave message, no vm available. Eddie Freed Pss 08/25/2022 4:36 PM Signed Patient scheduled for [facility] for PERCUTANEOUS NEPHROLITHOTOMY [6577] - Kidney - Left. Patient will be [...] Encounter Status:Closed by EDDIE MORENO on 08/25/22 [facility] 08-16-2022 CNPN Telephone (UROLAV) ----- DAT LOPEZ ([id number]) 1960 M Date Time Provider Department 08/16/22 [...] Visit: Other [Other] Cmt: CD from [facility] XR KUB Prescriptions as of [...] by BIENVENIDO DEL CID MA on 08/16/22 [facility] [place] 08-11-2022 CNOV Office Visit (UROLAV ) ----- DAT LOPEZ James ([id number]) 1960 M Date Time Provider Department 08/11/22 11:00 AM [place] VE[place] During your visit today, we recorded the following information about you: Pulse Blood pressure Weight 66/minute 176/89 99.8 kg Noelle Vega MD 08/11/2022 11:28 AM Signed [facility] NEW PATIENT HISTORY AND PHYSICAL EXAM PATIENT INFO: Dat Lopez 62 year old REFERRING M.D.: Pelon Coles [address] [place] [address] PCP: No primary care provider on file. [...] Left NL, multiple stones. ESWL was performed. [facility]. Then URS x 2 and ureteral [...] black stools or change in bowel habits [place] (more content not included)... Normal [facility] UA DIP, URINE (POC)on 2021 BILIRUBIN UA (POCT) Negative Negative [facility] CLARITY UA (POCT) Slightly Cloudy Cl [facility] COLOR UA (POCT) Yellow [facility] GLUCOSE UA (POCT) Negative Negative mg/dL [facility] HEMOGLOBIN/BLOOD UA (POCT) Large Abnormal Negative [facility] KETONE UA (POCT) Negative Negative mg/dL [facility] LEUKOCYTES UA (POCT) Small Abnormal Negative [facility] NITRITE UA (POCT) Negative [facility] PH UA (POCT) 5.5 4.5 - 8.0 [facility] Protein Ql (U) 30 mg/dL Abnormal Negative mg/dL [facility] SPECIFIC GRAVITY UA (POCT) 1.015 1.005 - 1.030 [facility] UROBILINOGEN UA (POCT) 0.2 E.U./dL Normal E.U./dL [facility] XR KUB 1 VIEWon 07-19-2022 [...] by: GEMA OTTO Date: 2022-07-19 11:50 Normal [facility] XR KUB 1 VIEWon 06-29-2022 XR KUB [...] JI CULLEN Date: 2022-06-29 07:43 Normal [facility] CALCULI, URINARYon 2 2,8 Dihydroxyadenine Normal [facility] Comment on above: Performed By: #### C ALCULI #### [facility] [address] [address] [address] Nikky Man Ammonium Acid Urate Normal [facility] Comment on above: Performed By: #### C ALCULI #### [facility] [address] [address] [address] Nikky Man Bilirubin Ql (U) [facility] Comment on above: Performed By: #### C ALCULI #### [facility] [address] [address] [address] Nikky Man Ca Oxalate Dihydrate 10 % [facility] Comment on above: Performed By: #### C ALCULI #### [facility] [address] [address] [address] Nikky Man CaHPO4 (Brushite) [facility] Comment on above: Performed By: #### C ALCULI #### [facility] [address] [address] [address] Nikky Man Calcium Bilirubinate [facility] Comment on above: Performed By: #### C ALCULI #### [facility] [address] [address] [address] Nikky Man Calcium Carbonate [facility] Comment on above: Performed By: #### C ALCULI #### [facility] [address] [address] [address] Nikky Man Calcium Oxalate Monohydrate 90 % [facility] Comment on above: Performed By: #### C ALCULI #### [facility] [address] [address] [address] Nikky Man Calcium Palmitate [place] [facility] Comment on above: Performed By: #### C ALCULI #### [facility] [address] [place] [address] Dr. Nikky Man Calcium Phosphate [place] [facility] Comment on above: Performed By: #### C ALCULI #### [facility] [address] [address] [address] Nikky Man Calcium Stearate Normal [facility] Comment on above: Performed By: #### C ALCULI #### [facility] [address] [address] [address] Nikky Man Carbonate Apatite Normal [facility] Comment on above: Performed By: #### C ALCULI #### [facility] [address] [address] [address] Nikky Man Cellular Material Normal [facility] Comment on above: Performed By: #### C ALCULI #### [facility] [address] [address] [address] Nikky Man Cholesterol [facility] Comment on above: Performed By: #### C ALCULI #### [facility] [address] [place] [address] Dr. Nikky Man Color (U) [place] Normal [facility] Comment on above: Performed By: #### C ALCULI #### [facility] [address] [address] [address] Nikky Man Comment [facility] Comment on above: Performed By: #### C ALCULI #### [facility] [address] [address] [address] Nikky Man Comment Comment Normal [facility] Comment on above: Result Comment: Calc ulus received in liquid. Wet calculi must be dried before analysis, which delays reporting of results. Leaving calculi in liquid (such as water, saline, blood, urine) may lead to changes in composition. Performed By: #### C ALCULI #### [facility] [address] [place] [address] Dr. Nikky Man Comment: Comment Normal [facility] Comment on above: Result Comment: Kaycee valenzuela questions regarding Calculi Analysis contact [facility] at: [phone]. Performed By: #### C ALCULI #### [facility] [address] [place] [address] Dr. Nikky Man Composition Comment Normal [facility] Comment on above: Result Comment: Perc entage (Represents the % composition) Performed By: #### C ALCULI #### [facility] [address] [address] [address] Nikky Man Cystine [facility] Comment on above: Performed By: #### C ALCULI #### [facility] [address] [place] [address] Dr. Nikky Man Disclaimer: Comment Normal [facility] Comment on above: Result Comment: This test was developed and its performance characteristics determined by [facility]. It has not been cleared or approved by the Food and Drug Administration. Performed By: #### C ALCULI #### [facility] [address] [place] [address] Dr. Nikky Man Dried Blood [facility] Comment on above: Performed By: #### C ALCULI #### [facility] [address] [place] [address] Dr. Nikky Man Drug or Metabolite Normal [facility] Comment on above: Performed By: #### C ALCULI #### [facility] [address] [place] [address] Dr. Nikky Man Hydroxyapatite Normal [facility] Comment on above: Performed By: #### C ALCULI #### [facility] [address] [place] [address] Dr. Nikky Man Mg NH4 PO4 (Struvite) [facility] Comment on above: Performed By: #### C ALCULI #### [facility] [address] [place] [address] Dr. Nikky Man MgHPO4 (Newberyite) [facility] Comment on above: Performed By: #### C ALCULI #### [facility] [address] [place] [address] Dr. Nikky Man Other component(s) Normal [facility] Comment on above: Performed By: #### C ALCULI #### [facility] [address] [place] [address] Dr. Nikky Man PDF . Normal [facility] Comment on above: Performed By: #### C ALCULI #### [facility] [address] [place] [address] Dr. Nikky Man Photo Comment Normal [facility] Comment on above: Result Comment: Phot ograph will follow under a separate cover Performed By: #### C ALCULI #### [facility] [address] [address] [address] Nikky Man Please note: Comment Normal [facility] Comment on above: Result Comment: Calc aishwarya report will follow via computer, mail or public school teacher delivery. Performed By: #### C ALCULI #### [facility] [address] [address] [address] Nikky Man Size 3x2 [facility] Comment on above: Result Comment: Mult iple pieces received. Dimensions of the largest piece reported. Performed By: #### C ALCULI #### [facility] [address] [address] [address] Nikky Man Sodium Acid Urate Normal [facility] Comment on above: Performed By: #### C ALCULI #### [facility] [address] [address] [address] Nikky Man Source Comment Normal [facility] Comment on above: Result Comment: Left Ureter Performed By: #### C ALCULI #### [facility] [address] [address] [address] Nikky Man Triamterene [facility] Comment on above: Performed By: #### C ALCULI #### [facility] [address] [address] [address] Nikky Man Uric Acid Normal [facility] Comment on above: Performed By: #### C ALCULI #### [facility] [address] [address] [address] Nikky Man Uric Acid Dihydrate [facility] Comment on above: Performed By: #### C ALCULI #### [facility] [address] [address] [address] Nikky Man Weight 4 mg [facility] Comment on above: Performed By: #### C ALCULI #### [facility] [address] [address] [address] Nikky Man Xanthine [facility] Comment on above: Performed By: #### C ALCULI #### [facility] [address] [address] [address] Nikky Man XR KUB 1 VIEWon [...] by: JI CULLEN Date: 2022-06-08 16:30 Normal [facility] XR KUB 1 VIEWon 06-01-2022 XR KUB [...] by: JI CULLEN Date: 2022-06-01 21:58 Normal [facility] PROTIMEon 05-25-2022 INR Coag (PPP) [Relative time] 1.01 {INR} Normal [facility] Comment on above: Performed By: #### P TT, PT #### [facility] [address] [address] [address] Nikky Man INR GUIDELINES SEE BELOW Normal [facility] Comment on above: Result Comment: ELFEGO RED INR: 2.0 - 3.0 CONDITIONS NOT LISTED BELOW 2.5 - 3.5 FOR PROSTHETIC HEART VALVE REPLACEMENT 2.5 - 3.5 RECURRENT THROMBOSIS Performed By: #### P TT, PT #### [facility] [address] [place], [place] [address] Dr. Nikky Man PT Coag (PPP) [Time] 10.9 s Normal 9.0-11.6 [facility] Comment on above: Performed By: #### P TT, PT #### [facility] [address] [place], [place] [address] Dr. Nikky Man PTTon 05-25-2022 aPTT Coag (Bld) [Time] 27.9 s Normal 22.3-36.2 [facility] Comment on above: Performed By: #### P TT, PT #### [facility] [address] [place], [place] [address] Dr. Nikky Man XR KUB 1 VIEWon [...] GEMA OTTO Date: 2022-05-25 17:12 Normal [facility] XR KUB 1 VIEWon 05-17-2022 [...] JI CULLEN Date: 2022-05-17 07:32 Normal [facility] CALCULI, URINARYon 2 2,8 Dihydroxyadenine Normal [facility] Comment on above: Performed By: #### C BC #### [facility] [address] [address] [address] Nikky Man Ammonium Acid Urate Normal [facility] Comment on above: Performed By: #### C BC #### [facility] [address] [address] [address] Nikky Man Bilirubin Ql (U) Normal [facility] Comment on above: Performed By: #### C BC #### [facility] [address] [address] [address] Nikky Man Ca Oxalate Dihydrate 10 % [facility] Comment on above: Performed By: #### C BC #### [facility] [address] [address] [address] Nikky Man CaHPO4 (Brushite) [place] [facility] Comment on above: Performed By: #### C BC #### [facility] [address] [address] [address] Nikky Man Calcium Bilirubinate [facility] Comment on above: Performed By: #### C BC #### [facility] [address] [address] [address] Nikky Man Calcium Carbonate Normal [facility] Comment on above: Performed By: #### C BC #### [facility] [address] [address] [address] Nikky Man Calcium Oxalate Monohydrate 90 % [facility] Comment on above: Performed By: #### C BC #### [facility] [address] [address] [address] Nikky Man Calcium Palmitate [place] [facility] Comment on above: Performed By: #### C BC #### [facility] [address] [address] [address] Nikky Man Calcium Phosphate Normal [facility] Comment on above: Performed By: #### C BC #### [facility] [address] [address] [address] Nikky Man Calcium Stearate Normal [facility] Comment on above: Performed By: #### C BC #### [facility] [address] [address] [address] Nikky Man Carbonate Apatite Normal [facility] Comment on above: Performed By: #### C BC #### [facility] [address] [address] [address] Nikky Man Cellular Material [facility] Comment on above: Performed By: #### C BC #### [facility] [address] [address] [address] Nikky Man Cholesterol [facility] Comment on above: Performed By: #### C BC #### [facility] [address] [place] [address] Dr. Nikky Man Color (U) [place] [facility] Comment on above: Performed By: #### C BC #### [facility] [address] [address] [address] Nikky Man Comment [facility] Comment on above: Performed By: #### C BC #### [facility] [address] [address] [address] Nikky Man Comment Comment [facility] Comment on above: Result Comment: Calc ulus received in liquid. Wet calculi must be dried before analysis, which delays reporting of results. Leaving calculi in liquid (such as water, saline, blood, urine) may lead to changes in composition. Performed By: #### C BC #### [facility] [address] [place] [address] Dr. Nikky Man Comment: Comment [facility] Comment on above: Result Comment: Kaycee valenzuela questions regarding Calculi Analysis contact [facility] at: [phone]. Performed By: #### C BC #### [facility] [address] [place] [address] Dr. Nikky Man Composition Comment [facility] Comment on above: Result Comment: Perc entage (Represents the % composition) Performed By: #### C BC #### [facility] [address] [address] [address] Nikky Man Cystine [facility] Comment on above: Performed By: #### C BC #### [facility] [address] [address] [address] Nikky Man Disclaimer: Comment Normal [facility] Comment on above: Result Comment: This test was developed and its performance characteristics determined by [facility]. It has not been cleared or approved by the Food and Drug Administration. Performed By: #### C BC #### [facility] [address] [place] [address] Dr. Nikky Man Dried Blood [facility] Comment on above: Performed By: #### C BC #### [facility] [address] [place] [address] Dr. Nikky Man Drug or Metabolite [facility] Comment on above: Performed By: #### C BC #### [facility] [address] [place] [address] Dr. Nikky Man Hydroxyapatite [facility] Comment on above: Performed By: #### C BC #### [facility] [address] [place] [address] Dr. Nikky Man Mg NH4 PO4 (Struvite) [facility] Comment on above: Performed By: #### C BC #### [facility] [address] [place] [address] Dr. Nikky Man MgHPO4 (Newberyite) [facility] Comment on above: Performed By: #### C BC #### [facility] [address] [place] [address] Dr. Nikky Man Other component(s) [facility] Comment on above: Performed By: #### C BC #### [facility] [address] [place] [address] Dr. Nikky Mna PDF . Normal [facility] Comment on above: Performed By: #### C BC #### [facility] [address] [place] [address] Dr. Nikky Man Photo Comment [facility] Comment on above: Result Comment: Phot ograph will follow under a separate cover Performed By: #### C BC #### [facility] [address] [address] [address] Nikky Man Please note: Comment Normal [facility] Comment on above: Result Comment: Calc asihwarya report will follow via computer, mail or public school teacher delivery. Performed By: #### C BC #### [facility] [address] [address] [address] Nikky Man Size 4x4 Normal [facility] Comment on above: Result Comment: Mult iple pieces received. Dimensions of the largest piece reported. Performed By: #### C BC #### [facility] [address] [address] [address] Nikky Man Sodium Acid Urate [facility] Comment on above: Performed By: #### C BC #### [facility] [address] [address] [address] Nikky Man Source Comment [facility] Comment on above: Result Comment: Left Ureter Performed By: #### C BC #### [facility] [address] [address] [address] Nikky Man Triamterene [facility] Comment on above: Performed By: #### C BC #### [facility] [address] [address] [address] Nikky Man Uric Acid [facility] Comment on above: Performed By: #### C BC #### [facility] [address] [address] [address] Nikky Man Uric Acid Dihydrate [facility] Comment on above: Performed By: #### C BC #### [facility] [address] [address] [address] Nikky Man Weight 156 mg [facility] Comment on above: Performed By: #### C BC #### [facility] [address] [address] [address] Nikky Man Xanthine [facility] Comment on above: Performed By: #### C BC #### [facility] [address] [address] [address] Nikky Man POINT OF CARE GLUCOSEon - Glucose [Mass/Vol] 131 mg/dL Critically high 74-106 [facility] Comment on above: Performed By: #### C BC #### [facility] [address] [place] [address] Dr. Nikky Man CBC AUTO DIFFon 05-04-2022 BASO # 0.0 103/ul Normal 0.0-0.1 [facility] Comment on above: Performed By: #### C BC #### [facility] [address] [place] [address] Dr. Nikky Man Basophils/100 WBC (Bld) 0.2 % Normal 0.2-2.0 [facility] Comment on above: Performed By: #### C BC #### [facility] [address] [place] [address] Dr. Nikky Man EO # 0.4 103/ul Normal 0.0-0.7 [facility] Comment on above: Performed By: #### C BC #### [facility] [address] [place] [address] Dr. Nikky Man Eosinophils/100 WBC (Bld) 4.8 % Normal 0.9-7.0 [facility] Comment on above: Performed By: #### C BC #### [facility] [address] [place] [address] Dr. Nikky Man Erythrocyte distribution width (RBC) [Ratio] 13.4 % Normal 11.0-15.0 [facility] Comment on above: Performed By: #### C BC #### [facility] [address] [place] [address] Dr. Nikky Man Hematocrit (Bld) [Volume fraction] 36.9 % Critically low 42.0-54.0 [facility] Comment on above: Performed By: #### C BC #### [facility] [address] [place] [address] Dr. Nikky Man Hemoglobin (Bld) [Mass/Vol] 12.2 g/dL Critically low 14.0-18.0 [facility] Comment on above: Performed By: #### C BC #### [facility] [address] [address] [address] Nikky Man IG # 0.05 10e3/ul Critically high 0.00-0.03 [facility] Comment on above: Performed By: #### C BC #### [facility] [address] [address] [address] Nikky Man IG % 0.6 % Critically high 0.0-0.5 [facility] Comment on above: Performed By: #### C BC #### [facility] [address] [address] [address] Nikky Man LYMPH # 1.8 103/ul Normal 1.2-3.8 [facility] Comment on above: Performed By: #### C BC #### [facility] [address] [place] [address] Dr. Nikky Man Lymphocytes/100 WBC (Bld) 20.3 % Critically low 20.5-60.0 [facility] Comment on above: Performed By: #### C BC #### [facility] [address] [place] [address] Dr. Nikky Man MANUAL DIFF REQ NO Normal [facility] Comment on above: Performed By: #### C BC #### [facility] [address] [place] [address] Dr. Nikky Man MCH (RBC) [Entitic mass] 26.6 pg Normal 25.9-34.0 [facility] Comment on above: Performed By: #### C BC #### [facility] [address] [place] [address] Dr. Nikky Man MCHC (RBC) [Mass/Vol] 33.1 g/dL Normal 29.9-35.2 [facility] Comment on above: Performed By: #### C BC #### [facility] [address] [place] [address] Dr. Nikky Man MCV (RBC) [Entitic vol] 80.6 fL Normal 80.0-94.0 [facility] Comment on above: Performed By: #### C BC #### [facility] [address] [place] [address] Dr. Nikky Man MONO # 0.5 103/ul Normal 0.3-0.8 [facility] Comment on above: Performed By: #### C BC #### [facility] [address] [place] [address] Dr. Nikky Man Monocytes/100 WBC (Bld) 5.2 % Normal 1.7-12.0 [facility] Comment on above: Performed By: #### C BC #### [facility] [address] [place] [address] Dr. Nikky Man NEUT # 6.1 103/ul Normal 1.4-6.5 [facility] Comment on above: Performed By: #### C BC #### [facility] [address] [place] [address] Dr. Nikky Man Neutrophils/100 WBC (Bld) 68.9 % Normal 43.0-75.0 [facility] Comment on above: Performed By: #### C BC #### [facility] [address] [place] [address] Dr. Nikky Man Platelet mean volume (Bld) [Entitic vol] 8.9 fL Critically low 9.5-13.5 [facility] Comment on above: Performed By: #### C BC #### [facility] [address] [place] [address] Dr. Nikky Man PLT 201 103/ul Normal 150-450 [facility] Comment on above: Performed By: #### C BC #### [facility] [address] [place] [address] Dr. Nikky Man RBC 4.58 106/ul Critically low 4.70-6.10 [facility] Comment on above: Performed By: #### C BC #### [facility] [address] [place] [address] Dr. Nikky Man WBC 8.8 103/ul Normal 4.0-11.0 [facility] Comment on above: Performed By: #### C BC #### [facility] [address] [place] [address] Dr. Nikky Man PROF CHEM 8 (BAS METB)on Anion gap [Moles/Vol] 17.6 mmol/L Normal [facility] Comment on above: Performed By: #### C BC #### [facility] [address] [place] [address] Dr. Nikky Man Calcium [Mass/Vol] 9.0 mg/dL Normal 8.5-10.1 [facility] Comment on above: Performed By: #### C BC #### [facility] [address] [address] [address] Nikky Man Chloride [Moles/Vol] 106 mmol/L Normal 98-107 [facility] Comment on above: Performed By: #### C BC #### [facility] [address] [place] [address] Dr. Nikky Man CO2 [Moles/Vol] 22.5 mmol/L Normal 21.0-32.0 [facility] Comment on above: Performed By: #### C BC #### [facility] [address] [place] [address] Dr. Nikky Man Creatinine [Mass/Vol] 2.34 mg/dL Critically high 0.70-1.30 [facility] Comment on above: Performed By: #### C BC #### [facility] [address] [place] [address] Dr. Nikky Man EGFR-AF TOGOLESE 35 mL/min/1.73m2 Critically low >=60 [facility] Comment on above: Performed By: #### C BC #### [facility] [address] [place] [address] Dr. Nikky Man EGFR-NON AF TOGOLESE 29 mL/min/1.73m2 Critically low >=60 [facility] Comment on above: Performed By: #### C BC #### [facility] [address] [place] [address] Dr. Nikky Man Glucose [Mass/Vol] 123 mg/dL Critically high 74-106 [facility] Comment on above: Performed By: #### C BC #### [facility] [address] [place] [address] Dr. Nikky Man Potassium [Moles/Vol] 5.1 mmol/L Normal 3.5-5.1 [facility] Comment on above: Performed By: #### C BC #### [facility] [address] [address] [address] Nikky Man Sodium [Moles/Vol] 141 mmol/L Normal 136-145 [facility] Comment on above: Performed By: #### C BC #### [facility] [address] [address] [address] Nikky Man Urea nitrogen [Mass/Vol] 27.0 mg/dL Critically high 7.0-18.0 [facility] Comment on above: Performed By: #### C BC #### [facility] [address] [place] [address] Dr. Nikky Man Urea nitrogen/Creatini ne [Mass ratio] 11.5 mg/mg Normal [facility] Comment on above: Performed By: #### C BC #### [facility] [address] [place] [address] Dr. Nikky Man XR KUB 1 VIEWon [...] GEMA OTTO Date: 2022-05-01 17:19 Normal [facility] URINE PROFILEon 2 Bilirubin Ql (U) Negative Normal NEGATIVE [facility] Comment on above: Performed By: #### C BC #### [facility] [facility] [address] [place], [place] [id number] Dr. Nikky Man Clarity (U) CLEAR Normal CLEAR [facility] Comment on above: Performed By: #### C BC #### [facility] [address] [place] [address] Dr. Nikky Man Color (U) LT. YELLOW Normal YELLOW [facility] Comment on above: Performed By: #### C BC #### [facility] [address] [place] [address] Dr. Nikky WEN A micrscopic examina tion will be performed if indicated. Normal [facility] Comment on above: Performed By: #### C BC #### [facility] [address] [place] [address] Dr. Nikky Man Glucose Ql (U) Negative Normal NEGATIVE [facility] Comment on above: Performed By: #### C BC #### [facility] [address] [place] [address] Dr. Nikky Man Hemoglobin Ql (U) LARGE Abnormal NEGATIVE [facility] Comment on above: Performed By: #### C BC #### [facility] [address] [place] [address] Dr. Nikky Man Ketones Ql (U) Negative Normal NEGATIVE [facility] Comment on above: Performed By: #### C BC #### [facility] [address] [place] [address] Dr. Nikky Man LEUKOCYTES Negative Normal NEGATIVE [facility] Comment on above: Performed By: #### C BC #### [facility] [address] [place] [address] Dr. Nikky Man Nitrite Ql (U) Negative Normal NEGATIVE [facility] Comment on above: Performed By: #### C BC #### [facility] [address] [place] [address] Dr. Nikky Man pH (U) 6.0 [pH] Normal 5-9 [facility] Comment on above: Performed By: #### C BC #### [facility] [address] [place] [address] Dr. Nikky Man SPEC GRAVITY 1.015 Normal 1.005-<=1.025 [facility] Comment on above: Performed By: #### C BC #### [facility] [address] [place] [address] Dr. Nikky Man UA PROTEIN TRACE Normal NEGATIVE/ TRACE [facility] Comment on above: Performed By: #### C BC #### [facility] [address] [place] [address] Dr. Nikky Man UR MICRO IND INDICATED Normal [facility] Comment on above: Performed By: #### C BC #### [facility] [address] [place] [address] Dr. Nikky Man Urobilinogen Qn (U) 0.2 {Chandni'U}/dL Normal 0.2 - 1.0 [facility] Comment on above: Performed By: #### C BC #### [facility] [address] [place] [address] Dr. Nikky Man URINE MICROSCOPIC ONLYon BACTERIA NONE SEEN Normal NONE SEEN [facility] Comment on above: Performed By: #### C BC #### [facility] [address] [place] [address] Dr. Nikky Man Bacteria identified Cx Nom (U) NOT INDICATED Normal [facility] Comment on above: Performed By: #### C BC #### [facility] [address] [place] [address] Dr. Nikky Man CAST NONE SEEN Normal NONE SEEN [facility] Comment on above: Performed By: #### C BC #### [facility] [address] [place] [address] Dr. Nikky Man Crystals LM Nom (Urine sed) NONE SEEN Normal NONE SEEN [facility] Comment on above: Performed By: #### C BC #### [facility] [address] [place] [address] Dr. Nikky Man Epithelial cells LM Ql (Urine sed) RARE Normal NONE SEEN /RARE [facility] Comment on above: Performed By: #### C BC #### [facility] [address] [place] [address] Dr. Nikky Man MUCOUS NONE SEEN Normal NONE SEEN [facility] Comment on above: Performed By: #### C BC #### [facility] [address] [place] [address] Dr. Nikky Man RBC 20-50 Abnormal 0-2 [facility] Comment on above: Performed By: #### C BC #### [facility] [address] [place], [place] [address] Dr. Nikky Man WBC 0-2 Abnormal NONE SEEN [facility] Comment on above: Performed By: #### C BC #### [facility] [address] [place], [place] [address] Dr. Nikky Man [facility] Miscellaneous test 1on 06-05-2019 Miscellaneous Test 1 SEE NOTE Normal [facility] Comment on above: Result Comment: Test name Result Flag Units RefIntvl ---- PCA3 by TMA - Score 5 0-24 PCA3 by TMA - Result Negative A negative result is associated with decreased likelihood of a positive biopsy for prostate cancer. INTERPRETIVE DATA: PCA3 by TMA The [employer] PCA3 assay is an in vitro nucleic acid amplification test utilizing target capture, chemical detection expert-mediated amplification, and a hybridization-protection assay for amplicon [...] history and other relevant data. Performed by [facility], [address] [place] [id number] [email or web address], Jae Marquez MD - Lab. Director Performed By: #### [id number] #### [facility] [address] [place] [address] [facility] Miscellaneous test 1on 05-29-2019 [facility] Prompt [id number] Normal [facility] Comment on above: Result Comment: Ca ected result; previously reported as [id number] on 05/28/2019 at 19:45 by V/AUT Performed By: #### [id number] #### [facility] [address] [place] [address] Urinalysis, reflex to micros copicon 11-28-2018 Bilirubin Ql (U) Negative Normal Negative [facility] Clarity (U) Clear Normal Clear [facility] Color (U) Yellow Normal Straw/[place]berg [facility] Glucose Ql (U) >=1000 Abnormal Negative [facility] Hemoglobin Ql (U) Negative Normal Negative [facility] Ketones Ql (U) Negative Normal Negative [facility] Leukocyte esterase Test strip Ql (U) Negative Normal Negative [facility] Nitrite Ql (U) Negative Normal Negative [facility] pH (U) 5.5 [pH] Normal 5.0-9.0 [facility] Protein Ql (U) Negative Normal Negative [facility] Specific gravity (U) [Rel density] 1.031 Normal 1.005-1.03 [facility] Urobilinogen Qn (U) 0.2 {Chandni'U}/dL Normal < 2.0 [facility] Vital Signs Date Time Vital Sign Value Performing Clinician Facility 05-27-2024 11:30-0400 Body height 177.[address] [facility] 05-27-2024 11:30-0400 Body mass index (BMI) [Ratio] 32 kg/m2 [facility] 05-27-2024 11:30-040 Body weight 101.[address] [facility] 05-27-2024 11:30-0400 Diastolic blood pressure 90 mm[Hg] [facility] 05-27-2024 11:30-0400 Heart rate 65 /min [facility] 05-27-2024 11:30-0400 Respiratory rate 12 /min [facility] 05-27-2024 11:30-0400 Systolic blood pressure 159 mm[Hg] [facility] 05-05-2024 11:07-0400 Blood Pressure Location Pelon COLES [facility] 05-05-2024 11:07-0400 Body temperature 98.6 [degF] Pelonneela COLES [facility] 05-05-2024 11:07-0400 Diastolic blood pressure 86 mm[Hg] Pelon COLES [facility] 05-05-2024 11:07-0400 Heart rate 85 /min Pelonneela COLES [facility] 05-05-2024 11:07-0400 Respiratory rate 16 /min Pelonneela COLES [facility] 05-05-2024 11:07-0400 Systolic blood pressure 139 mm[Hg] Pelonneela COLES [facility] 03-25-2024 09:00-0400 Body height 177.[address] [facility] 03-25-2024 09:00-0400 Body mass index (BMI) [Ratio] 34.1 kg/m2 [facility] 03-25-2024 09:00-0400 Body weight 107.[address] [facility] 03-25-2024 09:00-0400 Diastolic blood pressure 84 mm[Hg] [facility] 03-25-2024 09:00-0400 Heart rate 81 /min [facility] 03-25-2024 09:00-0400 Respiratory rate 12 /min [facility] 03-25-2024 09:00-0400 Systolic blood pressure 158 mm[Hg] [facility] 01-22-2024 11:26-0500 Body height 177.[address] [facility] 01-22-2024 11:26-0500 Body mass index (BMI) [Ratio] 34.8 kg/m2 [facility] 01-22-2024 11:26-0500 Body weight 110.[address] [facility] 01-22-2024 11:26-0500 Diastolic blood pressure 77 mm[Hg] [facility] 01-22-2024 11:26-0500 Heart rate 78 /min [facility] 01-22-2024 11:26-0500 Respiratory rate 16 /min [facility] 01-22-2024 11:26-0500 Systolic blood pressure 160 mm[Hg] [facility] 01-10-2024 08:43-0500 Body height 177.[address] [facility] 01-10-2024 08:43-0500 Body mass index (BMI) [Ratio] 34.2 kg/m2 [facility] 01-10-2024 08:43-0500 Body weight 108.[address] [facility] 01-10-2024 08:43-0500 Diastolic blood pressure 76 mm[Hg] [facility] 01-10-2024 08:43-0500 Heart rate 75 /min [facility] 01-10-2024 08:43-0500 Respiratory rate 12 /min [facility] 01-10-2024 08:43-0500 Systolic blood pressure 173 mm[Hg] [facility] 12-17-2023 11:31-0500 Blood Pressure Location Pelon COLES [facility] 12-17-2023 11:31-0500 Diastolic blood pressure 100 mm[Hg] Pelon COLES [facility] 12-17-2023 11:31-0500 Heart rate 70 /min Pelon COLES [facility] 12-17-2023 11:31-0500 Respiratory rate 16 /min Pelon COLES [facility] 12-17-2023 11:31-0500 Systolic blood pressure 151 mm[Hg] Pelon COLES [facility] 10-29-2023 14:25-0500 Blood Pressure Location Pelon COLES [facility] 10-29-2023 14:25-0500 Diastolic blood pressure 88 mm[Hg] Pelonneela COLES [facility] 10-29-2023 14:25-0500 Heart rate 87 /min Pelon COLES [facility] 10-29-2023 14:25-0500 Respiratory rate 16 /min Pelon COLES [facility] 10-29-2023 14:25-0500 Systolic blood pressure 138 mm[Hg] Pelon COLES [facility] 10-23-2023 11:30-0500 Body height 177.8 cm Sp Ball Other [facility] 10-23-2023 11:30-0500 Body mass index (BMI) [Ratio] 32.77 kg/m2 Sp Ball Other [employer] Other 10-23-2023 11:30-0500 Body weight 103.6 kg Sp Ball Other [facility] 10-23-2023 11:30-0500 Diastolic blood pressure 89 mm[Hg] Sp Ball Other [facility] 10-23-2023 11:30-0500 Systolic blood pressure 162 mm[Hg] Sp Ball Other [facility] 10-05-2023 14:15-0500 Blood Pressure Location Duran CRANDALL [facility] 10-05-2023 14:15-0500 Diastolic blood pressure 82 mm[Hg] Duran CRANDALL [facility] 10-05-2023 14:15-0500 Heart rate 80 /min Duran MANL [facility] 10-05-2023 14:15-0500 Respiratory rate 16 /min Duran MANL [facility] 10-05-2023 14:15-0500 Systolic blood pressure 144 mm[Hg] Duran MANL [facility] 04-24-2023 11:00-0400 Body height 177.8 cm Sp Ball Other [employer] Other 04-24-2023 11:00-0400 Body mass index (BMI) [Ratio] 34.38 kg/m2 Sp Ball Other [employer] Other 04-24-2023 11:00-0400 Body weight 108.68 kg Sp Ball Other [employer] Other 04-24-2023 11:00-0400 Diastolic blood pressure 80 mm[Hg] Sp Ball Other [employer] Other 04-24-2023 11:00-0400 Respiratory rate 12 /min Sp Ball Other [employer] Other 04-24-2023 11:00-0400 Systolic blood pressure 138 mm[Hg] Sp Ball Other [employer] Other 02-14-2023 15:15-0400 Body height 177.8 cm Alfonzo Ashford II Other [employer] Other 02-14-2023 15:15-0400 Body mass index (BMI) [Ratio] 35.15 kg/m2 Alfonzo Toussaintle II Other [facility] [employer] Other 02-14-2023 15:15-0400 Body weight 111.13 kg Alfonzo Toussaintle II Other [employer] Other 01-22-2023 11:00-0500 Body height 177.8 cm Sp Ball Other [employer] Other 01-22-2023 11:00-0500 Body mass index (BMI) [Ratio] 35.44 kg/m2 Sp Ball Other [employer] Other 01-22-2023 11:00-0500 Body weight 112.04 kg Sp Ball Other [employer] Other 01-22-2023 11:00-0500 Diastolic blood pressure 84 mm[Hg] Sp Ball Other [employer] Other 01-22-2023 11:00-0500 Respiratory rate 12 /min Sp Ball Other [employer] Other 01-22-2023 11:00-0500 Systolic blood pressure 136 mm[Hg] Sp Ball Other [employer] Other 12-18-2022 15:12-0500 Blood Pressure Location Pelon COLES [facility] 12-18-2022 15:12-0500 Diastolic blood pressure 72 mm[Hg] Pelon COLES [facility] 12-18-2022 15:12-0500 Heart rate 68 /min Pelon COLES [facility] 12-18-2022 15:12-0500 Respiratory rate 16 /min Pelon COLES [facility] 12-18-2022 15:12-0500 Systolic blood pressure 127 mm[Hg] Pelon COLES [facility] 12-14-2022 15:30-0500 Body height 177.8 cm Alfonzo Becerraisle II Other [employer] Other 12-14-2022 15:30-0500 Body mass index (BMI) [Ratio] 34.29 kg/m2 Alfonzo Toussaintle II Other [employer] Other 12-14-2022 15:30-0500 Body weight 108.41 kg Alfonzo Becerraisle II Other [employer] Other 08-28-2022 09:20-0400 Diastolic blood pressure 84 mm[Hg] Pacc 2 Work Phone: [facility] 08-28-2022 09:20-0400 Heart rate 72 /min Pacc 2 Work Phone: [facility] 08-28-2022 09:20-0400 Systolic blood pressure 152 mm[Hg] Pacc 2 Work Phone: [facility] 08-28-2022 09:16-0400 Body height 175.3 cm Pacc 2 Work Phone: [facility] 08-28-2022 09:16-0400 Body temperature 98.49 [degF] Pacc 2 Work Phone: [facility] 08-28-2022 09:16-0400 Body weight 105.23 kg Pacc 2 Work Phone: [facility] 08-28-2022 09:16-0400 Respiratory rate 16 /min Pacc 2 Work Phone: [facility] 08-28-2022 09:16-0400 SaO2% (BldA) [Mass fraction] 98 % Pac 2 Work Phone: [facility] 08-11-2022 10:49-0400 Body weight 99.79 kg Noelle Vega MD Work Phone: [facility] 08-11-2022 10:49-0400 Diastolic blood pressure 89 mm[Hg] Noelle Vega MD Work Phone: [facility] 08-11-2022 10:49-0400 Heart rate 66 /min Noelle Vega MD Work Phone: [facility] 08-11-2022 10:49-0400 Systolic blood pressure 176 mm[Hg] Noelle Vega MD Work Phone: [facility] 03-13-2022 15:03-0400 Blood Pressure Location Pelon COLES [facility] 03-13-2022 15:03-0400 Diastolic blood pressure 87 mm[Hg] Pelon COLES [facility] 03-13-2022 15:03-0400 Heart rate 78 /min Pelon COLES [facility] 03-13-2022 15:03-0400 Systolic blood pressure 164 mm[Hg] Pelon COLES [facility] Encounters Encounter Date Encounter Type Care Provider Facility Start: 12-19-2024 ambulatory Pelon Escalonai ty:[facility] Start: 09-15-2024 ambulatory Pelon Escalonai ty:[facility] Start: 08-25-2024 ambulatory Pelon Escalonai ty:[facility] Start: 06-26-2024 ambulatory Pelonneela COLES Facili ty:[id number] Start: 05-27-2024 End: 05-27-2024 ambulatory [facility] Work Phone: Start: 05-27-2024 End: 05-27-2024 Patient encounter procedure [facility] Work Phone: Start: 05-23-2024 Non-patient / Non-visit [facility] Work Phone: Start: 05-20-2024 End: 05-20-2024 ambulatory Pelon R COLES Facility:[facility] Start: 05-20-2024 End: 05-20-2024 Patient encounter procedure Pelon COLES [facility] Start: 05-12-2024 Non-patient / Non-visit [facility] Work Phone: Start: 05-05-2024 End: 05-05-2024 Lab Drop off [facility] Start: 05-05-2024 End: 05-05-2024 ambulatory Pelonneela COLES Facility:[id number] Start: 05-05-2024 End: 05-05-2024 Patient encounter procedure Pelon COLES [facility] Start: 03-25-2024 End: 03-25-2024 ambulatory [facility] Work Phone: Start: 03-25-2024 End: 03-25-2024 Patient encounter procedure [facility] Work Phone: Start: 02-22-2024 Non-patient / Non-visit [facility] Work Phone: Start: 02-01-2024 Non-patient / Non-visit [facility] Work Phone: Start: 01-26-2024 Non-patient / Non-visit [facility] Work Phone: Start: 01-22-2024 End: 01-22-2024 Encounter for general adult medical examination without abnormal findings [facility] Start: 01-22-2024 End: 01-22-2024 Patient encounter procedure [facility] Work Phone: Start: 01-10-2024 End: 01-10-2024 ambulatory [facility] Work Phone: Start: 01-10-2024 End: 01-10-2024 Patient encounter procedure [facility] Work Phone: Start: 12-19-2023 ambulatory Pelon Escalonai ty:RUCHI Zavaleta Start: 12-17-2023 End: 12-17-2023 ambulatory Pelon COLES Facility:RUCHI Vitale Start: 12-17-2023 End: 12-17-2023 Patient encounter procedure Pelon COLES [facility] Start: 12-14-2023 ambulatory Pelon Escalonai ty:RUCHI Vitale Start: 11-28-2023 End: 11-28-2023 ambulatory Pelon COLES Facility:[facility] Start: 11-28-2023 End: 11-28-2023 Lab Drop off [facility] Start: 11-27-2023 End: 11-27-2023 Patient encounter procedure [facility] COLES [facility] Start: 11-27-2023 End: 11-27-2023 ambulatory Pelon COLES Facility:[facility] Start: 11-23-2023 End: 11-23-2023 ambulatory Sp Chowdary Other [employer] Other Start: 11-23-2023 Telephone encounter Sp Chowdary ALEX [facility] Start: 11-14-2023 End: 11-14-2023 ambulatory Duran R NILL Facility: [facility] Start: 11-14-2023 End: 11-14-2023 Patient encounter procedure Duran R NILL General Surgery Nill/Said [facility] Start: 11-05-2023 ambulatory [facility] Start: 11-01-2023 End: 11-01-2023 ambulatory Sp Chowdary Other [employer] Other Start: 11-01-2023 Telephone encounter Sp Chowdary ALEX [facility] Start: 10-31-2023 End: 10-31-2023 ambulatory Duran R NILL Facility:[id number] Start: 10-29-2023 End: 10-29-2023 ambulatory Pelon COLES Facility:[facility] Start: 10-29-2023 End: 10-29-2023 Patient encounter procedure [facility] Start: 10-23-2023 End: 10-23-2023 ambulatory Sp Chowdary Other [employer] Other Start: 10-23-2023 Office outpatient vi sit 25 minutes Sp Chowdary [facility] Start: 10-23-2023 End: 10-23-2023 Patient encounter procedure [facility] Work Phone: Start: 10-05-2023 End: 10-05-2023 ambulatory Duran R NILL Facility: [facility] Start: 10-05-2023 End: 10-05-2023 Patient encounter procedure Duran R NILL General Surgery Nill/Said [facility] Start: 09-11-2023 End: 09-11-2023 ambulatory Pelonneela Coles Facility:[facility] Start: 09-11-2023 End: 09-11-2023 ambulatory DO Sp Chowdary Work Phone: [facility] Work Phone: Start: 09-11-2023 End: 09-11-2023 Patient encounter procedure DO Sp Chowdary Work Phone: [facility] Work Phone: Start: 09-02-2023 End: 09-02-2023 ambulatory Sp Chowdary Other [employer] Other Start: 09-02-2023 Telephone encounter Sp Chowdary FP [facility] Start: 08-08-2023 End: 08-08-2023 ambulatory Sp Chowdary Other [employer] Other Start: 08-08-2023 Nursing evaluation o f patient and report Sp Chowdary [facility] Start: 07-20-2023 End: 07-20-2023 ambulatory Sp Chowdary Other [employer] Other Start: 07-20-2023 Telephone encounter Sp Chowdary FP [facility] Start: 06-18-2023 ambulatory Pelon Sil COLES Facili ty:RUCHI Vit[facility] Start: 06-12-2023 End: 06-12-2023 ambulatory Pelonneela COLES Facility:[facility] Start: 05-15-2023 End: 05-15-2023 ambulatory Sp Chowdary Other [employer] Other Start: 05-15-2023 Telephone encounter Sp Chowdary FP [facility] Start: 04-26-2023 ambulatory RADHA Esqueda Facili ty:[facility] Start: 04-24-2023 End: 04-24-2023 ambulatory Sp Chowdary Other [employer] Other Start: 04-24-2023 Office outpatient vi sit 25 minutes Sp GARCIA [facility] Start: 04-10-2023 ambulatory NARENDRANATH LAKSHMIPATHY . Facility:[facility] Start: 03-23-2023 End: 03-24-2023 ambulatory RADHA RIVERA . Facility:[facility] Start: 03-08-2023 End: 03-08-2023 ambulatory Sp Chowdary Other [employer] Other Start: 03-08-2023 Telephone encounter Sp Marino [employer] Start: 03-06-2023 End: 03-06-2023 ambulatory NARENDRANATH LAKSHMIPATHY . Facility:[facility] Start: 02-26-2023 Encounter for genera l adult medical examination without abnormal findings NARENDRANATH LAKSHMIPATHY . [facility] Start: 02-22-2023 End: 02-23-[address] SP CHOWDARY Facility:[facility] Start: 02-22-2023 End: 02-23-2023 ambulatory NARENDRANATH LAKSHMIPATHY . Facility:[facility] Start: 02-22-2023 End: 02-23-2023 ambulatory NARENDRANATH LAKSHMIPATHY . Facility:[facility] Start: 02-22-2023 End: 02-23-2023 Encounter for general adult medical examination without abnormal findings NARENDRANATH LAKSHMIPATHY . Facility:[facility] Start: 02-14-2023 End: 02-14-2023 ambulatory Sp Chowdary [employer] Other Start: 02-14-2023 Office outpatient vi sit 25 minutes Alfonzo Ashford II [facility] Start: 02-05-2023 End: 02-05-2023 ambulatory Sp Chowdary Other [employer] Other Start: 02-05-2023 Telephone encounter [facility] Start: 01-22-2023 End: 01-22-2023 ambulatory Sp Chowdary Other [employer] Other Start: 01-22-2023 Encounter for genera l adult medical examination without abnormal findings Sp Chowdary [facility] Start: 01-22-2023 Periodic preventive med est patient 40-64yrs Sp Chowdary [facility] Start: 12-18-2022 End: 12-18-2022 Patient encounter procedure Pelon CLOES [facility] Start: 12-14-2022 End: 12-14-2022 ambulatory Sp Chowdary [facility] [employer] Other Start: 12-14-2022 FQHC visit new patient Alfonzo boo II [facility] Start: 12-12-2022 End: 12-12-2022 Patient encounter procedure Duran CRANDALL General Surgery Nill/[facility]aid [facility] Start: 12-05-2022 End: 12-06-[address] PELON COLES . Facility: Start: 11-28-2022 Letter encounter Sarah jean baptiste Start: 09-27-2022 End: 09-28-[address] PELON COLES . 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 Start: 09-12-2022 Orders Only Noelle Matthew Work Phone: Urology Comment on above: Hyperkalemia (Primar y Dx) Start: 09-11-2022 End: 09-12-2022 ambulatory NOELLE VEGA Facility:[facility] Start: 08-28-2022 End: 08-28-2022 ambulatory NOELLE VEGA Facility:[facility] Start: 08-28-2022 End: 08-28-2022 Admission to establishment Pac Av 2 Work Phone: [facility] Start: 08-28-2022 End: 08-28-2022 Preprocedural examination done Pac 2 Work Phone: Pre Anesthesia Start: 08-28-2022 Encounter for other preprocedural examination NOELLE DASANIKA [facility] Start: 08-28-2022 End: 08-29-2022 ambulatory NOELLE VEGA [...] End: 08-28-2022 Subsequent hospital visit by physician [facility] ([facility]) Work Phone: [facility] Radiology CT Scan Comment on above: Calculus of kidney w ith calculus of ureter [N20.2] Start: 08-24-2022 Telephone encounter Noelle banuelos MD Work Phone: Urology Comment on above: Schedule Surgery Start: 08-16-2022 Telephone encounter Noelle banuelos MD Work Phone: Urology Comment on above: Other (CD from [facility] Start: 08-11-2022 End: 08-11-2022 ambulatory Jennifer Singleton [...] other preprocedural examination DR PELON COLES . [facility] Start: 05-05-2022 End: 05-05-[address] PELON COLES . Facility:[facility] Start: 05-05-2022 End: 05-05-2022 Patient encounter procedure Pelon COLES [facility] Start: 05-04-2022 End: 05-05-[address] PELON COLES . Facility:[facility] Start: 05-04-2022 End: 05-05-2022 Encounter for other preprocedural examination DR PELON COLES . Facility:[facility] Start: 05-01-2022 End: 05-02-[address] SP CHOWDARY Facility:[facility] Start: 04-21-2022 End: 04-21-[address] SP CHOWDARY Facility:[facility] Start: 03-14-2022 End: 03-14-2022 Patient encounter procedure [facility]on [facility] Start: 03-13-2022 End: 03-13-2022 Patient encounter procedure Pelon COLES [facility] Start: 01-19-2022 Adult health examination Rohan Chowdary Other [facility] Other Start: 02-26-2017 End: 02-27-2017 ambulatory UNKNOWN PROVIDER Facility:[facility] Procedures Date Procedure Procedure Detail Performing [...] Comment: Specimen Type: BLOOD SPEC IMENOrdering Facility: [facility] Address: [address] [place], [place] [id number] Performed By: #### T [id number] ####JOELLE BLOOD BANKCLIA [id number] [address] OF [facility] Start: 08-28-2022 Ct abdomen & pelvis [...] CANCER SCREENING DISCUSSION PROSTATE CANCER SCREENING DISCUSSION [facility] Start: 02-26-2023 Hemoglobin A1c/Hemoglobin.total in Blood HBA1C [facility] Start: 09-19-2022 End: 11-19-2022 Basic metabolic 2000 panel - Serum or Plasma BASIC METABOLIC PNL Lab Routine Hyperkalemia Expected: 09/19/2022 (Approximate), Expires: 11/19/2022 [facility] Work Phone: Comment on above: Expected: 09/19/2022 (Approximate), Expi res: 11/19/2022 Start: 08-28-2022 End: 10-28-2022 aPTT in Platelet poor plasma by Coagulation assay ACTIVATED PTT Lab Routine Nephrolithiasis Gross hematuria Expected: 08/28/2022, Expires: 10/28/2022 [facility] Work Phone: Comment on above: Expected: 08/28/2022, Expires: Start: 08-28-2022 End: 10-28-2022 Bacteria identified in Urine by Culture URINE CULTURE Microbiology Routine Nephrolithiasis Expected: 08/28/2022, Expires: 10/28/2022 [facility] Work Phone: Comment on above: Expected: 08/28/2022, Expires: 2 Start: 08-28-2022 End: 10-28-2022 CBC W Auto Differential panel - Blood CBC + DIFF Lab Routine Nephrolithiasis Expected: 08/28/2022, Expires: 10/28/2022 [facility] Work Phone: Comment on above: Expected: 08/28/2022, Expires: 2 Start: 08-28-2022 End: 10-28-2022 Comprehensive metabolic 2000 panel - Serum or Plasma COMP METABOLIC PANEL Lab Routine Nephrolithiasis Expected: 08/28/2022, Expires: 10/28/2022 [facility] Work Phone: Comment on above: Expected: 08/28/2022, Expires: 2 Start: 08-28-2022 End: 10-28-2022 CONFIRM BLOOD TYPE CONFIRM BLOOD TYPE Blood Bank Routine Pre-op evaluation Expected: 08/28/2022, Expires: 10/28/2022 [facility] Work Phone: Comment on above: Expected: 08/28/2022, Expires: 2 Start: 08-28-2022 End: 10-28-2022 Hemoglobin A1c in Blood [facility] Work Phone: Comment on above: Expected: 08/28/2022, Expires: 2 Start: 08-28-2022 End: 10-28-2022 PT panel - Platelet poor plasma by Coagulation assay PROTHROMBIN TIME/PT Lab Routine Nephrolithiasis Gross hematuria Expected: 08/28/2022, Expires: 10/28/2022 [facility] Work Phone: Comment on above: Expected: 08/28/2022, Expires: 2 Start: 08-28-2022 End: 10-28-2022 TYPE AND SCREEN,30 DAY TYPE AND SCREEN,30 DAY Blood Bank Routine Nephrolithiasis Expected: 08/28/2022, Expires: 10/28/2022 [facility] Work Phone: Comment on above: Expected: 08/28/2022, Expires: 2 Start: 08-19-2022 Influenza vaccination Influenza Vaccine (#1) [facility] Start: 08-11-2022 End: 10-11-2022 25-hydroxyvitamin D3 [Mass/volume] in Serum or Plasma VITAMIN D 25 HYDROXY Lab Routine Nephrolithiasis Secondary hyperparathyroidism of renal origin (HCC) Expected: 08/11/2022, Expires: 10/11/2022 [facility] Work Phone: Comment on above: Expected: 08/11/2022, Expires: 2 Start: 08-11-2022 End: 10-11-2022 Parathyrin.intact [Mass/volume] in Serum or Plasma PTH INTACT BLD Lab Routine Nephrolithiasis Expected: 08/11/2022, Expires: 10/11/2022 [facility] Work Phone: Comment on above: Expected: 08/11/2022, Expires: 2 Start: 08-11-2022 End: 10-11-2022 Urinalysis complete panel - Urine URINALYSIS, WITH MICROSCOPIC Lab Routine Nephrolithiasis Expected: 08/11/2022, Expires: 10/11/2022 [facility] Work Phone: Comment on above: Expected: 08/11/2022, Expires: 2 Start: 11-19-2021 DEPRESSION ASSESSMENT DEPRESSION ASSESSMENT [facility] Start: 11-19-2017 Annual wellness visit Annual Wellness Visit (G0438) [facility] Start: 2017 PROSTATE CANCER SCREENING DISCUSSION PROSTATE CANCER SCREENING DISCUSSION [facility] Start: 02-22-2012 Measurement of occult blood in single stool [facility] Start: 02-22-2012 Screening for malignant neoplasm of colon CRC Screening [facility] Start: 02-22-2012 Shingles (RZV) Vaccine (1 of 2) Shingles (RZV) Vaccine (1 of 2) [facility] Start: 02-22-2012 SHINGRIX VACCINE (1 of 2) SHINGRIX VACCINE (1 of 2) [facility] Start: 2007 COLOGUARD (FIT-DNA) COLOGUARD (FIT-DNA) [facility] Start: 2007 Colonoscopy COLONOSCOPY [facility] Start: 2007 COLORECTAL CANCER SCREENING COLORECTAL CANCER SCREENING [facility] Start: [address] COLONOGRAPHY [facility] Start: 2007 DIABETES SCREEN DIABETES SCREEN [facility] Start: 2007 FECAL OCCULT BLOOD FECAL OCCULT BLOOD [facility] Start: 2007 SIGMOIDOSCOPY SIGMOIDOSCOPY [facility] Start: 1997 Lipid panel Cholesterol [facility] Start: 1997 LIPID SCREEN LIPID SCREEN [facility] Start: 1981 Urine microalbumin profile DTAP,TDAP,TD (1 - Tdap) [facility] Start: 02-22-1980 ANNUAL PCP TEAM CHRONIC DISEASE VISIT ANNUAL PCP TEAM CHRONIC DISEASE VISIT [facility] Start: 02-22-1980 BP CONTROLLED (<130/80) BP CONTROLLED (<130/80) [facility] Start: 02-22-1980 Hepatitis B surface antibody level LDL CHOLESTEROL [facility] Start: 02-22-1980 Hepatitis C screening Hepatitis C Antibody [facility] Start: 02-22-1980 HEPATITIS C SCREENING HEPATITIS C SCREENING [facility] Start: 02-22-1980 HIV SCREENING HIV SCREENING [facility] Start: 02-22-1980 Tetanus + diphtheria + acellular pertussis vaccine (product) Tdap Booster [facility] Start: 1977 HIV screening HIV Test [facility] Start: 1974 Adult depression screening assessment DEPRESSION SCREENING [facility] Start: 02-22-1972 3 comp foot exam completed DIABETIC FOOT EXAM [facility] Start: 02-22-1972 Hepatitis B screening URINE ALBUMIN:CREATININE RATIO [facility] Start: 02-22-1972 Hepatitis C antibody, confirmatory test DILATED RETINAL EXAM [facility] Start: 02-22-1968 PNEUMOCOCCAL (1 - PCV) PNEUMOCOCCAL (1 - PCV) [facility] Start: 1967 Hemoglobin A1c/Hemoglobin.total in Blood HBA1C [facility] Start: 1962 COVID-19 Vaccine (#1) COVID-19 Vaccine (#1) [facility] Start: 1962 Screening for malignant neoplasm of colon Colonoscopy [facility] Comprehensive metabolic 2000 panel - Serum or Plasma [facility] End: 09-10-2023 Ct abdomen & pelvis w/o contrast material CT FLANK WO IVCON Radiology Routine Calculus of kidney with calculus of ureter 1 Occurrences starting 08/11/2022 until 09/10/2023 [facility] Work Phone: Comment on above: 1 Occurrences starting 08/11/2022 until 09/10/2023 [facility] Immunizations Immunization Date Immunization Notes Care Provider Fa cili 08-08-2023 influenza, injectabl e, quadrivalent, preservative free Sp Chowdary Other [facility] 07-20-2023 influenza virus vaccine, unspecified formulation [facility] 08-13-2022 SARS-CoV-2 (COVID-19 ) mRNAMUL.[id number] Duran KARLEY [facility] 07-26-2022 influenza virus vaccine, split virus (incl. purified surface antigen) Sp Chowdary Other [facility] Other 07-26-2022 influenza virus vaccine, unspecified formulation Duran CRANDALL [facility] 10-23-2021 COVID-19 Vaccine Pfi zer - Documentation Purposes Only Sp Chowdary Other [facility] 08-11-2021 influenza virus vaccine, split virus (incl. purified surface antigen) Sp Chowdary Other [facility] Other 08-11-2021 influenza virus vaccine, unspecified formulation [facility] 08-10-2021 influenza virus vaccine, unspecified formulation Pelon COLES [facility] 04-15-2021 SARS-CoV-2 (COVID-19 ) Ad26 vaccine, recombinant Pelon COLES [facility] 03-25-2021 SARS-CoV-2 (COVID-19 ) Ad26 vaccine, recombinant Pelon COLES [facility] 02-15-2021 SARS-CoV-2 (COVID-19 ) mRNA BNT-162b2 vax Duran CRANDALL [facility] 01-25-2021 SARS-CoV-2 (COVID-19 ) mRNA BNT-162r0 vax Duran CRANDALL [facility] 01-13-2021 tetanus and diphther ia toxoids, adsorbed, preservative free, for adult use (5 Lf of tetanus toxoid and 2 Lf of diphtheria toxoid) Sp Chowdary Other [facility] 07-20-2020 influenza virus vaccine, split virus (incl. purified surface antigen) Sp Chowdary Other [facility] Other 07-20-2020 influenza virus vaccine, unspecified formulation [facility] 08-18-2019 influenza virus vaccine, split virus (incl. purified surface antigen) Sp Chowdary Other [facility] Other 08-18-2019 influenza virus vaccine, unspecified formulation [facility] 07-20-2019 influenza virus vaccine, live, attenuated, for intranasal use Pelonneela COLES [facility] 08-26-2018 influenza virus vaccine, split virus (incl. purified surface antigen) Sp Chowdary Other [facility] Other 08-26-2018 influenza virus vaccine, unspecified formulation Pelon COLES [facility] 08-31-2017 influenza virus vaccine, unspecified formulation Pelon COLES [facility] 08-31-2017 tetanus and diphther ia toxoids, adsorbed, preservative free, for adult use (5 Lf of tetanus toxoid and 2 Lf of diphtheria toxoid) Sp Chowdary Other [facility] 10-02-2016 pneumococcal conjuga te vaccine, 13 valent Sp Chowdary Other [facility] 10-02-2016 pneumococcal Conjuga te, unspecified formulation; Translations: [Need for prophylactic vaccination against Streptococcus pneumoniae (pneumococcus)] Sp Chowdary Other [facility] Other 07-25-2016 tetanus and diphther ia toxoids, adsorbed, preservative free, for adult use (5 Lf of tetanus toxoid and 2 Lf of diphtheria toxoid) Sp Chowdary Other [facility] 07-21-2015 tetanus and diphther ia toxoids, adsorbed, preservative free, for adult use (5 Lf of tetanus toxoid and 2 Lf of diphtheria toxoid) Sp Chowdary Other [facility] 06-21-2015 pneumococcal polysaccharide vaccine, 23 valent Sp Epi Other [facility] 07-30-2013 tetanus and diphther ia toxoids, adsorbed, preservative free, for adult use (5 Lf of tetanus toxoid and 2 Lf of diphtheria toxoid) Sp Chowdary Other [facility] 08-01-2012 tetanus and diphther ia toxoids, adsorbed, preservative free, for adult use (5 Lf of tetanus toxoid and 2 Lf of diphtheria toxoid) Sp Chowdary Other [facility] 07-30-2008 diphtheria, tetanus toxoids and acellular pertussis vaccine, unspecified formulation Sp Chowdary Other [facility] 10-02-2001 Td(adult) unspecifie d formulation Pelon COLES [facility] Payers Date Payer Category Payer Self-pay [id number] 2019 Private Health Insurance [facility] CHOICE PLUS [id number] 2019-Present [phone] [address] [place] [address] HMO [id number] 2016 Medicare [id number] 2001 Medicare [id number]. [id number] .[id number] 1962 Unknown [id number] 2.16.840.1.806843.3.579. 2.732 1962 Unknown [id number] 2.16.840.1.122119.3.579. 2.593 1962 Unknown [id number] 2.16.840.1.593654.3.579. 2.593 1962 Unknown [id number] 2.16.840.1.290275.3.579. 2.593 1962 Unknown [id number] 2.16.840.1.337414.3.579. 2.593 1962 Unknown [id number] 2.16.840.1.417774.3.579. 2.593 1962 Unknown [id number] 2.16.840.1.367036.3.579. 2.593 1962 Unknown [id number] 2.16.840.1.773910.3.579. 2.593 1962 Unknown [id number] 2.16.840.1.545353.3.579. 2.593 1962 Unknown [id number] 2.16.840.1.837971.3.579. 2.593 1962 Unknown [id number] 2.16.840.1.381625.3.579. 2.593 1962 Unknown [id number] 2.16.840.1.495410.3.579. 2.593 1962 Unknown [id number] 2.16.840.1.311700.3.579. 2.593 1962 Unknown [id number] 2.16.840.1.762506.3.579. 2.593 1962 Unknown [id number] 2.16.840.1.979491.3.579. 2.593 1962 Unknown [id number] 2.16.840.1.710453.3.579. 2.593 1962 Unknown [id number] 2.16.840.1.686649.3.579. 2.593 1962 Unknown [id number] 2.16.840.1.277151.3.579. 2.593 1962 Unknown [id number] 2.16.840.1.182545.3.579. 2.593 1962 Unknown [id number] 2.16.840.1.308333.3.579. 2.593 1962 Unknown [id number] 2.16.840.1.884524.3.579. 2.593 1962 Unknown [id number] 2.16.840.1.238571.3.579. 2.593 1962 Unknown [id number] 2.16.840.1.762411.3.579. 2.727 1962 Unknown [id number] 2.16.840.1.877585.3.579. 2.727 1962 Unknown [id number] 2.16.840.1.389149.3.579. 2.727 1962 Unknown [id number] 2.16.840.1.983643.3.579. 2.727 1962 Unknown [id number] 2.16.840.1.996607.3.579. 2.727 1962 Unknown [id number] 2.16.840.1.284732.3.579. 2.727 1962 Unknown [id number] 2.16.840.1.976773.3.579. 2. 1962 Unknown [id number] 2.16.840.1.300747.3.579. 2.727 1962 Unknown [id number] 2.16.840.1.343863.3.579. 2. 1962 Unknown [id number] 2.16.840.1.756486.3.579. 2. 1962 Unknown [id number] 2.16.840.1.490791.3.579. 2. 1962 Unknown [id number] 2.16.840.1.282140.3.579. 2.72 1962 Unknown [id number] 2.16.840.1.865506.3.579. 2. 1962 Unknown [id number] 2.16.840.1.110828.3.579. 2. 1962 Unknown [id number] 2.16.840.1.885137.3.579. 2. 1962 Unknown [id number] 2.16.840.1.808229.3.579. 2.72 1962 Unknown [id number] 2.16.840.1.880833.3.579. 2.72 1962 Unknown [id number] 2.16.840.1.402841.3.579. 2.727 1959 Medicare [id number] 1959 Unknown [id number] Private Health Insurance [facility] [id number] Unknown [employer] [id number] Unknown [id number] 2.16.840.1.305028.3.579. 2.531 Unknown [id number] 2.16.840.1.716511.3.579. 2.531 Unknown [id number] 2.16.840.1.660124.3.579. 2.531 Social History Date Type Detail Facility Start: 03-13-2022 End: 05-05-2024 Tobacco smoking status Never smoked tobacco (finding) [facility] Tobacco smoking status Never [facility] Sex Assigned At Male [facility] Tobacco smoking status NDIS Tobacco smoking consumption unknown [facility] Start: 1960 Sex Assigned At Not on file [facility] Start: 08-04-2022 End: 09-26-2022 Exposure to SARS-CoV-2 (event) Not sure [facility] History of tobacco use Passive smoker [facility] Start: 08-28-2022 Tobacco use and exposure Smokeless tobacco non-user [facility] Start: 08-28-2022 End: 09-11-2022 Alcohol intake Ex-drinker (finding) [facility] Start: 1960 Sex Assigned At Male F [facility] Medical Equipment Procedure Code Equipment [...] Facility 05-05-2024 Functional Status N/A [facility] 12-17-2023 Functional Status N/A [facility] 10-29-2023 Functional Status N/A [facility] 10-05-2023 Functional Status N/A [facility] Functional Status N/A [facility] Clinical Notes 03-13-2022 to 05-05-2024 Note Date [...] Follow these instructions at home: Medicines Take qbcm-yew-kwfyubj and prescription medicines only as told by [...] important. Where to find more information [employer] of Diabetes and Digestive and Kidney Diseases: [...] depends on the type of prostatitis. Take xomn-wrl-yqxhppy and prescription medicines only as told by [...] provider. Document Revised: 12/10/2020 Document Reviewed: 12/10/2020 [employer] Patient Education 2022 [employer]. Follow Up Care 05/05/2024 10:36:21 With:SANKET PRECIADO, Pelon Mujica, URL Address: [facility] [address] [place] [address]- When: Unknown [facility] [place] 12-17-2023 Hospital Discharg e instructions [...] Follow these instructions at home: Medicines Take iwkh-ksw-jomszvu and prescription medicines only as told by [...] provider. Document Revised: 02/01/2022 Document Reviewed: 02/01/2022 [employer] Patient Education 2022 [employer]. Follow Up Care 12/13/2023 11:10:14 With:SANKET PRECIADO, Pelon Mujica, URL Address: [facility] [address] [place] [phone] When: Unknown Comments:1 yr w/ PSA and KUB [facility] 11-23-2023 Evaluation note Encounter Date Diagnosis [...] 130 Decrease ISS to avoid hypoglycemic episodes [facility]it[facility] [employer] Other 12-14-2023 Evaluation note* Encounter Date Diagnosis Assessment Notes Treatment Notes Treatment Clinical Notes Oct, Type 2 diabetes mellitus with hyperglycemia (ICD-10 - E11.65) [facility] Other 12-11-2023 Hospital Discharge instructions Follow Up Care 10/29/2023 11:16:58 With:SANKET PRECIADO, Pelon Mujica, URL Address: [facility] [address] [place] [address]- When: Unknown Comments:Scheduled for TRUS/bx on 11/27/23. [facility] 12-05-2023 Evaluation note* Encounter Date Diagnosis [...] use, the patient reduces the risk for AR, CVA, HTN, cardiac dysrhythmias and sudden cardiac [...] active. No change in medical therapy Oct, prison (current) use of insulin (ICD-10 - Z79.4) [facility] Other 11-17-2023 NoteChief Complaint consultation for anemia and h/o colon polyps [facility] Staff 63 year old male [...] tab(s), Oral, As Direct (more content not included)...[facility]Result Comment: Electronically Signed By: KARLEY PRECIADO, Duran Mujica\.br\Date and Time Signed: 10/05/23 14:45 [id number] Hospital Discharge instructions Follow Up Care 10/02/2023 11:36:47 With:SANKET PRECIADO, Pelon Mujica, URL Address: [facility] [address], [place] [phone] When: Unknown [facility] Meghann 09-01-2023 Evaluation note* Encounter Date Diagnosis Assessment Notes Treatment Notes Treatment Clinical Notes Jul, Controlled type 2 diabetes mellitus with hyperglycemia, without long-term current use of insulin (ICD-10 - E11.65) [employer] Other 07-25-2023 Note [id number] 06-12-2023 NoteCustom Cystoscopy ? Voiding after [...] if you have a fever over 100 degrees.[facility] 04-24-2023 Evaluation note* Encounter Date Diagnosis [...] use, the patient reduces the risk for AR, CVA, HTN, cardiac dysrhythmias and sudden cardiac [...] E11.3393) Control BS and close f/u w/ social services specialist Apr, Hyperlipidemia, mixe d (ICD-10 - [...] [BMI ] 34.0-34.9, adult (ICD-10 - Z68.34) [employer] Other 04-06-2023 NoteCONSULTATION CONSULTATION DATE: 02/22/2023 TO: [...] our patients to inform us about any sevp-fdo-teyvpim medications or herbal remedies/nutritional supplements/alternative remedies. 2. [...] treatment options with their primary care provider.[id number] Evaluation note * Encounter Date Diagnosis Assessment [...] move forward with anything in the future. [facility] Other 03-06-2023 Evaluation note* Encounter Date Diagnosis [...] is down from 13 - f/u Urology [facility] Other 01-30-2023 Hospital Discharge instructions Patient Education [...] urethra. Follow these instructions at home: Take cont-kbx-negispj and prescription medicines only as told by [...] 11/05/2006 Document Revised: 09/30/2019 Document Reviewed: 12/10/2017 [employer] Patient Education 2020 [employer]. Follow Up Care 11/30/2022 15:02:18 With:SANKET PRECIADO, Pelon Mujica, URL Address: [facility] [address] [place] [address]- When: Unknown [facility] 01-26-2023 Evaluation note* Encounter Date Diagnosis [...] does have some posttraumatic osteoarthritis and is xxii-mz-ezya in the medial compartment. He has had [...] 3 months to check on his progress. [employer] Other 11-08-2022 NoteHNO ID: [id number] Author: Noelle Vega MD Service: ? Author [...] patient: Yes Procedure confirmed with physician and office support assistant: Yes Sign In: History and Physical Exam [...] urine metabolic studies if indicated. Noelle Vega MDFloating Hospital For [id number] Nurse Note* Arlene Miguel Ma - 09/26/2022 [...] Education Session: None Instruction Provided To: Patient Chrome Polisher Present: not applicable Discipline: Nursing Learning Topic: SURVIVAL SKILLS: Complication Prevention Symptom Management Patient Evaluation: Verbalizes understanding: Yes Supplemental Material Given: Written Material Instructed By Arlene Miguel Ma In Department Urology . [facility] History of Present illness Narrative* [...] patient: Yes Procedure confirmed with physician and office support assistant: Yes Sign In: History and Physical Exam [...] indicated. Noelle Vega MD documented in [facility]10-[facility]-2022 NoteHNO ID: [id number] Author: Flor Sahu PA-C Service: Hospital Medicine Author Type: Physician Pulp Drier Type: Plan of Care Filed: 09/12/2022 12:58 [...] Lopez DATE: September 12, 2022 TIME: 12:57 [id number] NoteHNO ID: [id number] Author: GUERA Granados Service: Care Management Author Type: Storeroom Clerk Type: Care Mgt Initial Assessment Filed: 09/12/2022 11:00 AM Note Text: 10:58 AM CARE MANAGEMENT: ASSESSMENT AND DISCHARGE PLAN SERVICE DATE: September 12, 2022 SERVICE TIME: 10:59 AM PRIMARY CARE PHYSICIAN: Sp Chowdary DO Primary Contact: Extended Emergency Contact Information Primary Emergency Contact: Svitlana Lopez [place] Mobile Relation: Spouse ADMISSION STATUS: Extended Recovery Insurance Provider: [facility] CHOICE PLUS NEEDS PRIOR TO DISCHARGE Needs Prior to Discharge: To Be Determined;Pharmacy Bedside Delivery;Discharge Transportation POTENTIAL TRANSITION PLANS Home Based on clinical judgement, Care Management will address the following needs: No transitional/discharge planning needs at this time Patient's perception of need for this admission: kidney stone ADVANCE DIRECTIVES Current Advance Directive: None Box Builder Attempted to Assist with AD Completion: Yes [...] discharge within 30 days: No PATIENT SCREEN Patient/Neon Pumper Stated Goals: To have reduction in pain;To [...] at this time. FREEDOM OF CHOICE EXPLAINED: [place] of Choice Given: No Reason Not Given: No placements necessary Are you interested in bedside delivery of your medications? Yes ASSESSMENT AND PLAN: Mr Lopez reports his will transport him home to [facility] at discharge. He has no anticipated transitional care needs for discharge. SIGNATURE: GUERA Granados PATIENT NAME: Dat Lopez DATE: September 12, 2022 TIME: 10:58 AM CONTACT #: [id number] [id number] NoteHNO ID: [id number] Author: Valdo Mcghee MD Service: Urology Author Type: Resident Type: Progress Notes Filed: 09/12/2022 10:45 AM Note Text: [facility] UROLOGY [...] Vega. Valdo Mcghee MD PGY-5, Urology Pager: [phone] 10:45 AM 09/12/2022 Interval/daily plan: Doing well. [...] Vega. Valdo Mcghee MD PGY-5, Urology Pager: [phone] After 1800 and on weekends please page [phone] for assistance. SUBJECTIVE -Patient doing well -Pain: [...] 1.67* GLUC -- -- -- 214* [facility]22 NoteHNO ID: [id number] Author: Noelle Vega MD Service: Urology Author [...] infusion 100 mL/hr INTRAVENOUS CONTINUOUS phenol 1 [place] (CHLORASEPTIC) 1 [place] MUCOUS MEMBRANE (TOPICAL MOUTH AND THROAT) q [...] September 11, 2022 4:19 PM PLEASE CONTACT SHUTTLE SPOTTER OVERNIGHT IF ANY QUESTIONSKane County Human Resource [id number] NoteHNO ID: [id number] Author: RT Anisha(R) Service: Radiology Author Type: [...] BY: RT Anisha(R) September 11, 2022 11:55 AMKane County Human Resource [id number] NoteHNO ID: [id number] Author: Caroline Larios APRN.APPLICATION SYSTEMS ENGINEER Service: ? Author Type: Nurse Laboratory Animal Care Veterinarian Type: Anesthesia Procedure Notes Filed: 09/11/2022 7:58 AM Note Text: ANESTHESIOLOGY PROCEDURE NOTE Airway General Information Procedure Start Time/Medication Administration: 09/11/2022 7:40 AM Patient location during procedure: OR Staffing Anesthesiologist: Melisa Rangel MD APPLICATION SYSTEMS ENGINEER: Caroline Larios APRN.APPLICATION SYSTEMS ENGINEER Performed by: APPLICATION SYSTEMS ENGINEER Indications and Patient Condition Indications for airway [...] September 11, 2022 TIME: 7:57 AM CSN: [id number] NoteHNO ID: [id number] Author: ANASTASIIA Rodriguez Service: Radiology Author Type: [...] BY: ANASTASIIA RODRIGUEZ August 28, 2022 7:11 AMKane County Human Resource [id number] History and physical note* Mechelle Burnett PA-C [...] Prior to Admission medications as of 08/28/22 0955 Medication Sig Last Dose Taking metFORMIN (GLUCOPHAGE) [...] fevers. Neuro: No history of TIA's, stroke, BAKING ASSISTANT tumor, impaired sensorium, hemiplegia, paraplegia or quadraplegia. No neurological symptoms or problems. Respiratory: No history of current cough or dyspnea, or pneumonia in the past 6 weeks. No history of respiratory/pulmonary symptoms or problems. Cardiovascular: +HTN, HLD, POTS- no recent episodes Negative for Recent AR, Angina, Chest Pain, CHF, DVT/PE GI: No [...] 2022 TIME: 9:57 AM documented in [facility] History of Present illness Narrative* ANASTASIIA Rodriguez - 08/28/2022 7:15 AM EDT Radiology Service Progress Note PATIENT NAME: Dta Lopez DATE OF SERVICE: August 28, 2022 [...] 28, 2022 7:11 AM documented in this encounterAdena [facility] Center10-07-2022 Miscellaneous Notes* Telephone Encounter - Eddie Freed Pss - 08/25/2022 4:35 PM EDT Patient scheduled [facility] for PERCUTANEOUS NEPHROLITHOTOMY [2747] - Kidney - [...] message, no vm available. documented in this encounterAdena [facility] Center10-06-2022 Instructions* Patient Instructions* Mechelle Burnett PA-C - 08/24/2022 12:52 PM EDT PATIENT PREOPERATIVE INSTRUCTIONS Noelle Vega MD has scheduled you for your procedure at this surgery center: [facility]: [phone] --[address] [place] [address]. Please enter through the entrance closest to [...] Procedures: - YOU MUST HAVE A RESPONSIBLE LABOR COMMISSIONER TAKE YOU HOME. A WELT SOLE LAYER OR STEWARD/STEWARDESS CLUB CAR CANNOT BE MADE A RESPONSIBLE LABOR COMMISSIONER. - We recommend that a responsible person stays with you overnight to take care of you. - You cannot stay in a hotel alone after outpatient surgery. You will not be permitted to have yoursurgery, if you do not have someone to take care of you. If you already have an Advance Directive, please fax a copy to [phone] or email to for it to be [...] day. Mechelle Burnett PA-C documented in this encounterAdena [facility] Medical Center09-28-2022 Miscellaneous Notes* Telephone Encounter - Bienvenido Del Cid Ma - 08/16/2022 5:19 PM EDT Images from cd have been uploaded into patient's chart. I spoke with patient and he does not need the cd back. I am putting it in the admin office to be destroyed. documented in this encounterAdena Regional Medical Center09-23-2022 NoteHNO ID: [id number] Author: Noelle Vega MD Service: ? Author Type: Physician Type: Progress Notes Filed: 08/11/2022 11:28 AM Note Text: [facility] KIDNEY STONE CENTER NEW PATIENT HISTORY AND PHYSICAL EXAM PATIENT INFO: Dat Lopez 62 year old REFERRING M.D.: Pelon Coles [address] [place] [address] PCP: No primary care provider on file. [...] Left NL, multiple stones. ESWL was performed. [facility]. Then URS x 2 and ureteral [...] history of headaches, syncope (more content not included)...[facility]09-23-2022 Instructions* Patient Instructions* Noelle Vega [...] video with more information on ureteral stents: [email or web address] Video on PCNL: [email or web address] If you have any additional questions regarding this procedure, please reach out to our team. Warm regards, Your [facility] documented in this encounterAdena Regional Medical Center09-23-2022 History of Present illness Narrative* Noelle Vega MD - 08/11/2022 11:00 AM EDT Images from the original note were not included. [facility] K[facility]ONE C[facility] NEW PATIENT HISTORY AND PHYSICAL EXAM PATIENT INFO: Dat Lopez 62 year old REFERRING M.D.: Pelon Coles [address] [place] [address] PCP: No primary care provider on file. [...] Left NL, multiple stones. ESWL was performed. [facility]. Then URS x 2 and ureteral [...] Abdomen is Non-distended, soft, nontender. Musculoskeletal: Good glazing department supervisor strength. Neurologic: Normal gait. Sensation grossly [...] with URS. Plan for Sep 11 at [place] The patient decided to proceed with the [...] Vega MD Associate Staff documented in this encounterAdena Regional Medical Center09-07-2022 NotePROCEDURE: XR HIP LT 2 [...] Electronically authenticated by: GEMA OTTO Date: 2022-07-26 21:53[facility]04-26-2022 Hospital Discharge instructions Patient Education 03/14/2022 10:23:05 [...] COLES Address: [facility] [address], [place] [address]- [facility] (1) When: Unknown Comments:Office will call to schedule follow [facility]04-25-[facility] Hospital Discharge instructions Patient Education [...] Follow these instructions at home: Medicines Take vvof-bgo-bbldghy and prescription medicines only as told by [...] or the blood stops without treatment. Take tree-hgz-tpwmyby and prescription medicines only as told by your health care provider. Drink enough fluid to keep your urine clear or pale yellow. This information is not intended to replace advice given to you by your health care provider. Make sure you discuss any questions you have with your health care provider. Document Released: 11/05/2006 Document Revised: 03/31/2020 Document Reviewed: 12/08/2017 [employer] Patient Education 2020 [employer]. Follow Up Care 03/13/2022 08:09:52 With:Pelon COLES MD, URL Address: [facility] [address] , [place] [address]- [phone] When: Unknown [facility] evaluation + Plan note Future Appointments Appointment Date:03/14/2022 10:00:00 AM Scheduled Provider: Location:[facility] Appointment Type:Urology FT Appointment Date:05/05/2022 09:30:00 AM Scheduled Provider:Pelon COLES MD Location:[facility] Appointment Type:URO Office Visit [facility] evaluation + Plan note Future Appointments Appointment Date:05/05/2022 09:30:00 AM Scheduled Provider:Pelno COLES MD Location:[facility] Appointment Type:URO Office Visit Diagnostic Tests Pending * UroVysion Fish and Urine Cyto ([facility]) [facility] App[facility]ments Appointment Date:12/18/2022 02:30:00 PM Scheduled Provider:Pelon COLES MD Location:[facility] Appointment Type:URO Office Visit General Surgery [facility] Evaluation + Plan note Future Appointments Appointment Date:06/18/2023 09:45:00 AM Scheduled Provider:Pelon COLES MD Location:[facility] Appointment Type:URO Office Visit [facility] evaluation + Plan note Future Appointments Appointment Date:11/27/2023 03:30:00 PM Scheduled Provider:Pelon COLES MD Location:[facility] Appointment Type:URO Procedure 30 min Appointment Date:12/14/2023 10:30:00 AM Scheduled Provider:Pelon COLES MD Location:[facility] Appointment Type:URO Office Visit General Surgery [facility] Evaluation + Plan note Future Appointments Appointment Date:12/14/2023 10:30:00 AM Scheduled Provider:Pelon COLES MD Location:[facility] Appointment Type:URO Office Visit [facility] Evaluation + Plan note Future Appointments Appointment Date:12/14/2023 10:30:00 AM Scheduled Provider:Pelon COLES MD Location:[facility] Appointment Type:URO Office Visit Diagnostic Tests Pending * Prostate Histology ([facility]) [facility] Future Appointments Appointment Date:12/19/2024 10:30:00 AM Scheduled Provider:Pelon COLES MD Location:[facility] Appointment Type:URO Office Visit Diagnostic Tests Pending * PSA Total 12/17/23 [facility] evaluation + Plan note Future Appointments Appointment Date:12/19/2024 10:30:00 AM Scheduled Provider:Pelon COLES MD [facility] Appoint[facility] Type:URO Office Visit Diagnostic Tests Pending * Urine Culture [facility] Future Appointments Appointment Date:12/19/2024 10:30:00 AM Scheduled Provider:Pelon COLES MD [facility] Appoint[facility] Type:URO Office Visit Diagnostic Tests Pending * Creatinine 05/05/24 [facility] evaluation + Plan note Future Appointments Appointment Date:06/23/2024 09:00:00 AM Scheduled Provider: Location:[facility] Appointment Type:URO Nurse Visit Appointment Date:07/07/2024 12:30:00 PM Scheduled Provider:Pelon COLES MD Location:[facility] Appointment Type:URO Office Visit Appointment Date:12/19/2024 10:30:00 AM Scheduled Provider:Pelon COLES MD Location:[facility] Appointment Type:URO Office Visit [facility] evaluation note* Diagnosis Screening for genitourinary condition- Primary Screening for other and unspecified genitourinary condition Calculus of kidney with calculus of ureter Calculus of kidney Staghorn calculus Calculus of kidney documented in this encounter [facility] note* Diagnosis Nephrolithiasis- Primary Calculus of kidney Secondary hyperparathyroidism of renal origin (HCC) Secondary hyperparathyroidism (of renal origin) Gross hematuria Gross hematuria Nephrolithiasis Calculus of kidney documented in this encounter [facility] note* Diagnosis Pre-op evaluation- Primary Preoperative [...] Calculus of kidney [facility] Diagnosis Calculus of kidney with calculus of ureter Calculus of kidney Nephrolithiasis Calculus of kidney documented in this encounter [facility] note* Diagnosis Hyperkalemia- Primary Hyperpotassemia documented in this encounter [facility] note* Diagnosis Nephrolithiasis- Primary Calculus of kidney Calculus of kidney with calculus of ureter Calculus of kidney documented in this encounter [facility] noteNo InformationNort [facility] Other Evaluation noteNort A[facility] Other Evaluation noteNo assessment information available [facility] Work Phone: Evaluation note* Diagnosis Onset Date Resolution Status [id number] acute Primary hypertension acute [id number] acute [facility] Work Phone: Evaluation note* Diagnosis Onset Date [...] acute Lumbar spondylosis acute Primary hypertension acute [facility] Work Phone: Evaluation note* Diagnosis Onset Date Resolution Status Chronic kidney disease acute Lumbar spondylosis acute Primary hypertension acute Primary osteoarthritis of knee acute Type 2 diabetes mellitus with hyperglycemia acute Anemia acute Chronic kidney disease acute Lumbar spondylosis acute Primary hypertension acute Primary osteoarthritis of knee acute Type 2 diabetes mellitus with hyperglycemia acute [facility] Work Phone: History general Narrative - Reported* [...] Surgical History COLONOSCOPY Hospitalization History see surgeries [employer] Other History general Narrative - Reported* Type [...] Surgical History COLONOSCOPY Hospitalization History see surgeries [facility] Other History general Narrative - ReportedNort Axtria Other Hospital course Narrative No data available for this section [facility] Discharge instructions No data available for this section [facility] progress note No data available for this section [facility] reason for referral (narrative)* Reason *FU 02/13 Referral for low back pain Diagnosis 1 Lumbar spondylosis ( M47.816) Referral Organization [facility] Referring Provider First Name Sp Referring Provider Last Name Epi Referring Provider Specialty Internal Me dicine Referred Organization [facility] Referred Provider Vandana Blount Referred Address [address] [place], [place],[address] Referred Provider Specialty Pain Medicin e Referral [...] has received benefit from previous injections. P: [phone] F: [phone] [employer] Other Summary Purpose Family History No Family [...] Diagnoses Nephrolithiasis Procedures CONSULT TO CARDIOLOGY OFFICE/OUTPATIENT [facility] 60-[place] [address] [place] [address] Referral ID Status Reason Start Date Expiration Date Visits Requested Visits Authorized [id number] Pending Review PCP Requested Referral 08/11/2022 08/11/2023 1 1 Specialty Diagnoses / Procedures Referred By Contac t Referred To Contact Diagnoses Nephrolithiasis Procedures REFER TO PACC - PRE ANESTHESIA CONSULTATION CLINIC OFFICE/OUTPATIENT [facility] MDM 60-[place] [address] [place] [address] Referral ID Status Reason Start Date Expiration Date Visits Requested Visits Authorized [id number] Pending Review PCP Requested Referral 08/11/2022 08/11/2023 1 1 Specialty Diagnoses / Procedures Referred By Elena t Referred To Contact CT IMAGING Diagnoses Calculus of kidney with calculus of ureter Procedures CT FLANK WO IVCON CT ABD & PEL[place] [address] [place] [address] Ct Imaging Referral ID Status Reason Start Date Expiration Date Visits Requested Visits Authorized [id number] Authorized Auto-Generat ed Referral 08/11/2022 09/10/2023 1 [...] Check Up worsening neuropathy Reason for Visit [id number] Primary hypertension [id number] Chief Complaint worsening neuropathy [facility] Documentation [...] section and content) DATE CREATED AUTHOR 06/05/2019 [facility] DATE CREATED AUTHOR AUTHOR'S ORGANIZ ATION 01/03/2022 [facility] DATE CREATED AUTHOR AUTHOR'S ORGANIZ ATION 08/21/2022 [facility] DATE CREATED AUTHOR AUTHOR'S ORGANIZ ATION 09/16/2022 [facility] DATE CREATED AUTHOR AUTHOR'S ORGANIZ ATION 09/27/2022 [facility] DATE CREATED AUTHOR AUTHOR'S ORGANIZ ATION 04/04/2023 [facility] DATE CREATED AUTHOR AUTHOR'S ORGANIZ ATION 09/19/[address] 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 Specialist Relationship Specialty Start Date End Date Sp Chowdary, DO [address] [place] [address] PCP - General Internal Medicine 09/07/22 Team [...] or prosecute any alcohol or drug abuse patient.[facility] CenterIn the event this information is protected by the Federal Confidentiality of Alcohol and Drug Abuse Patient Records regulations: The Federal rules restrict any use of the information to criminally investigate or prosecute any alcohol or drug abuse patient.[facility] CenterIn the event this information is protected by the Federal Confidentiality of Alcohol and Drug Abuse Patient Records regulations: The Federal rules restrict any use of the information to criminally investigate or prosecute any alcohol or drug abuse patient.[facility] CenterIn the event this information is protected by the Federal Confidentiality of Alcohol and Drug Abuse Patient Records regulations: The Federal rules restrict any use of the information to criminally investigate or prosecute any alcohol or drug abuse patient.[facility] CenterIn the event this information is protected by the Federal Confidentiality of Alcohol and Drug Abuse Patient Records regulations: The Federal rules restrict any use of the information to criminally investigate or prosecute any alcohol or drug abuse patient.[facility] CenterIn the event this information is protected by the Federal Confidentiality of Alcohol and Drug Abuse Patient Records regulations: The Federal rules restrict any use of the information to criminally investigate or prosecute any alcohol or drug abuse patient.[facility] CenterIn the event this information is protected by the Federal Confidentiality of Alcohol and Drug Abuse Patient Records regulations: The Federal rules restrict any use of the information to criminally investigate or prosecute any alcohol or drug abuse patient.[facility] CenterIn the event this information is protected by the Federal Confidentiality of Alcohol and Drug Abuse Patient Records regulations: The Federal rules restrict any use of the information to criminally investigate or prosecute any alcohol or drug abuse patient.[facility] Reason for Visit (unrecogniz ed section and content) Reason Comments New Patient Kidney stones Reason Comments Other CD from [facility] XR KUB Reason Comments Schedule Surgery Specialty Diagnoses / Procedures Referred By Elena apple Referred To Contact Diagnoses Nephrolithiasis Procedures REFER TO PACC - PRE ANESTHESIA CONSULTATION CLINIC OFFICE/OUTPATIENT NEW HIGH MDM 60-[place] [address] [place] [address] Referral ID Status Reason Start Date Expiration Date Visits Requested Visits Authorized [id number] Pending Review PCP Requested Referral 08/11/2022 08/11/2023 1 1 Specialty Diagnoses / Procedures Referred By Elena apple Referred To Contact CT IMAGING Diagnoses Calculus of kidney with calculus of ureter Procedures CT FLANK WO IVCON CT ABD & PELVIS [place] [address] [place] [address] Ct Imaging Referral ID Status Reason Start Date Expiration Date V isits Requested Visits Authorized [id number] Closed Auto-Generate d Referral 08/11/2022 09/10/2023 1 [...] BE BASED ON THE PRIMARY CLINICAL RECORDS. [employer] provides no warranty or guarantee of the accuracy or completeness of information in this document.
== END 2024-07-09 10:51 | disposition home or self-care (01) ==
PROVIDERS: PCP Internal Medicine; Visit Provider Podiatrist Foot & Ankle Surgery
DX: M25.572 Pain in left ankle and joints of left foot (principal); Z98.890 Other specified postprocedural states
CPT/HCPCS: 73610; 73630

== ENCOUNTER 2024-07-25 13:41 | Outpatient (OUT) | payer OTHER, MEDICARE, SELFPAY ==
--- NOTE | 2024-07-25 13:44 | CT_ITS ---
[address] [address] Patient Name: DAT LOPEZ MRN: [id number] date: 1960 Sex: M Assigned Patient Location: CT Current Patient Location: Accession/Order Number: [id number] Exam Date: 07/25/2024 13:50 Report Date: 07/26/2024 07:31 At the request of: RU MALAGON Procedure: CT ankle LT wo con EXAMINATION: CT ankle LT wo con HISTORY: Degenerative Joint Disease COMPARISON: XR left ankle 07/09/2024 TECHNIQUE: Multi-planar CT images were created without and/or with IV contrast according to examination type. Dose reduction techniques were achieved by using automated exposure control and/or adjustment of mA and/or kV according to patient size and/or use of iterative reconstruction technique. FINDINGS: BONES: Osseous and mechanical fusion of the tibiotalar joint via multiple lag screws; no appreciable hardware fracture or loosening. Stax-en-qori articulation of the posterior talocalcaneal joint. Osseous and mechanical fusion of the distal fibula to the tibia with the most distal screw extending into the posterior talocalcaneal joint. Prior osteotomy of the distal fibula 8.1 cm cephalad to the its distal tip with posterior offset of the distal fragment approximately 50% of the bone thickness; no visible osseous fusion at site of osteotomy. SOFT TISSUES: Negative. No visible soft tissue swelling. EFFUSION: None visible. OTHER: Negative. CT/CT ankle LT wo con IMPRESSION: 1. Surgical changes as detailed above. 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 2. No appreciable acute abnormality. No prior studies for comparison other than the recent left ankle radiograph. Electronically authenticated by: GEMA OTTO Date: 07/26/2024 07:31
== END 2024-07-25 13:42 | disposition home or self-care (01) ==
LOC: CT 13:41
PROVIDERS: PCP Internal Medicine; Visit Provider Podiatrist Foot & Ankle Surgery
DX: M19.072 Primary osteoarthritis, left ankle and foot (principal); M24.672 Ankylosis, left ankle
CPT/HCPCS: 73700

== ENCOUNTER 2024-09-30 12:34 | Outpatient (OUT) | payer OTHER, MEDICARE, SELFPAY ==
[2024-09-30 12:46] LABS: Basophils Absolute Auto 0.1 10^3/uL (0.0-0.1); Basophils Percent Auto 0.7 % (0.2-2.0); Eosinophils Absolute Auto 0.4 10^3/uL (0.0-0.7); Eosinophils Percent Auto 6.2 % (0.9-7.0); Hematocrit 41.6 % (42.0-54.0); Hemoglobin 13.5 g/dL (14.0-18.0); Immature Granulocytes Abs Auto 0.02 10^3/uL (0.00-0.03); Immature Granulocytes Pct Auto 0.3 % (0.0-0.5); Lymphocytes Percent Auto 29.2 % (20.5-60.0); Mean Corpuscular HGB Conc 32.5 g/dL (29.9-35.2); Mean Corpuscular Hemoglobin 26.2 pg (25.9-34.0); Mean Corpuscular Volume 80.8 fL (80.0-94.0); Mean Platelet Volume 9.4 fL (9.5-13.5); Monocytes Absolute Auto 0.4 10^3/uL (0.3-0.8); Monocytes Percent Auto 5.6 % (1.7-12.0); Platelet Count 163 10^3/uL (150-450); Red Blood Count 5.15 10^6/uL (4.70-6.10); Red Cell Distribution Width 14.1 % (11.0-15.0); White Blood Count 6.9 10^3/uL (4.0-11.0)
[2024-09-30 13:25] LABS: Anion Gap 15.5; BUN Creatinine Ratio 11.9; Calcium 8.8 mg/dL (8.5-10.1); Carbon Dioxide 25.1 mmol/L (21.0-32.0); Chloride 109 mmol/L (98-107); Estimated GFR (African America >60 (>=60 mL/min/1.73m^2); Estimated GFR (Non-African Ame 54 (>=60 mL/min/1.73m^2); Glucose 99 mg/dL (74-106); Potassium 4.6 mmol/L (3.5-5.1); Sodium 145 mmol/L (136-145)
[2024-09-30 13:28] LABS: Estimated Average Glucose 126 mg/dL
== END 2024-09-30 12:35 | disposition home or self-care (01) ==
LOC: LAB 12:36
PROVIDERS: PCP Internal Medicine; Visit Provider Internal Medicine
DX: N18.31 Chronic kidney disease, stage 3a (principal); E11.65 Type 2 diabetes mellitus with hyperglycemia; Z79.4 Long term (current) use of insulin; D64.9 Anemia, unspecified
CPT/HCPCS: 36415; 80048; 83036; 85025

== ENCOUNTER 2025-02-11 07:50 | Outpatient (OUT) | payer OTHER, MEDICARE, SELFPAY ==
[2025-02-11 10:17] LABS: Prostate Specific Antigen Dx 20.03 ng/mL (<=4.00)
== END 2025-02-11 07:51 | disposition home or self-care (01) ==
LOC: LAB 07:51
PROVIDERS: PCP Internal Medicine; Visit Provider Urology
DX: R97.20 Elevated prostate specific antigen [PSA] (principal)
CPT/HCPCS: 36415; 84153

== ENCOUNTER 2025-02-11 07:53 | Outpatient (OUT) | payer OTHER, MEDICARE, SELFPAY ==
[2025-02-11 08:23] LABS: Basophils Percent Auto 0.4 % (0.2-2.0); Eosinophils Absolute Auto 0.3 10^3/uL (0.0-0.7); Hematocrit 40.5 % (42.0-54.0); Hemoglobin 13.4 g/dL (14.0-18.0); Immature Granulocytes Abs Auto 0.03 10^3/uL (0.00-0.03); Immature Granulocytes Pct Auto 0.6 % (0.0-0.5); Lymphocytes Absolute Auto 1.8 10^3/uL (1.2-3.8); Mean Corpuscular HGB Conc 33.1 g/dL (29.9-35.2); Mean Corpuscular Hemoglobin 26.6 pg (25.9-34.0); Mean Corpuscular Volume 80.4 fL (80.0-94.0); Monocytes Absolute Auto 0.4 10^3/uL (0.3-0.8); Monocytes Percent Auto 6.7 % (1.7-12.0); Neutrophils Absolute Auto 2.9 10^3/uL (1.4-6.5); Neutrophils Percent Auto 54.3 % (43.0-75.0); Platelet Count 142 10^3/uL (150-450); Red Blood Count 5.04 10^6/uL (4.70-6.10); Red Cell Distribution Width 14.2 % (11.0-15.0); White Blood Count 5.4 10^3/uL (4.0-11.0)
[2025-02-11 08:52] LABS: Creatinine Urine Random 91.93 mg/dL (20.00-300.00); Microalbum Creatinine Ratio Ur 41.3 mg/g (0.0-29.9); Microalbumin Urine Random 3.8 mg/dL (<=30.0)
[2025-02-11 08:59] LABS: Estimated Average Glucose 134 mg/dL; Glycohemoglobin A1C 6.3 % (4.5-6.2)
[2025-02-11 09:31] LABS: Alanine Aminotransferase 23 U/L (16-63); Albumin Globulin Ratio 1.3; Albumin Level 3.7 g/dL (3.4-5.0); Alkaline Phosphatase 102 U/L (46-116); Anion Gap 9.9; Aspartate Amino Transferase 16 U/L (15-37); BUN Creatinine Ratio 12.5; Bilirubin Total 0.3 mg/dL (0.2-1.0); Calcium 8.9 mg/dL (8.5-10.1); Carbon Dioxide 29.9 mmol/L (21.0-32.0); Chloride 107 mmol/L (98-107); Cholesterol 104 mg/dL (<=200); Estimated GFR (African America >60 (>=60 mL/min/1.73m^2); Estimated GFR (Non-African Ame 57 (>=60 mL/min/1.73m^2); Globulin 2.8 g/dL; Glucose 124 mg/dL (74-106); HDL Cholesterol 35 mg/dL (40-60); Potassium 4.8 mmol/L (3.5-5.1); Sodium 142 mmol/L (136-145); Thyroid Stimulating Hormone 1.526 uIU/mL (0.358-3.740); Total Protein 6.5 g/dL (6.4-8.2); Triglycerides 141 mg/dL (<=150); VLDL CHOLESTEROL 28.2 mg/dL
== END 2025-02-11 07:54 | disposition home or self-care (01) ==
PROVIDERS: PCP Internal Medicine; Visit Provider Internal Medicine
DX: R53.83 Other fatigue (principal); R97.20 Elevated prostate specific antigen [PSA]; E11.65 Type 2 diabetes mellitus with hyperglycemia; Z79.4 Long term (current) use of insulin; I10 Essential (primary) hypertension; E78.2 Mixed hyperlipidemia; R25.1 Tremor, unspecified
CPT/HCPCS: 36415; 80053; 80061; 82043; 82570; 83036; 84153; 84443; 85025

== ENCOUNTER 2025-04-22 12:38 | Outpatient (OUT) | payer OTHER, MEDICARE, SELFPAY ==
--- OUTSIDE RECORDS SUMMARY | 2019-08-04 05:00 | XMS_ITS | Continuity of Care Document ---
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 Name Role Phone Lisa Clayton MD Unavailable Unavailable Allergies, Adverse Reactions, Alerts Substance Reaction Status Criticality exenatide Active No Information PIOGLITAZONE HCL Active No Informat ion diazepam Active No Information Medications Medication Instructions Dosage Effective Dates (start - stop) Status Comments pyridostigmine bromide 60 mg tablet take 1 tablet by oral route 3 times every day - Active gabapentin 100 mg capsule take 1 (100MG) by oral route 3 times every day - Active sertraline 100 mg tablet take 1 tablet by oral route 2 times every day - Active MorphaBond ER 15 mg tablet,oral ONLY (not feeding tubes) take 1 tablet by oral route every 12 hours - Active Lopressor 50 mg tablet take 1 tablet by oral route every day with meals - Active Toujeo SoloStar U-300 Insulin 300 unit/mL (1.5 mL) subcutaneous pen inject by subcutaneous route as per insulin protocol 0.00 - Active pravastatin 40 mg tablet take 1 tablet by oral route every day 40 MG - Active losartan 100 mg tablet take 1 tablet by oral route every day 100 MG - Active amlodipine 2.5 mg tablet take 1 tablet by oral route every day 2.5 MG - Active metformin 1,000 mg tablet take 1 tablet by oral route 2 times every day with morning and evening meals - Active Humalog KwikPen (U-100) Insulin 100 unit/mL subcutaneous inject by subcutaneous route per prescriber's instructions. Insulin dosing requires individualization. 0.00 - Active Procedures Procedure Date Ophthal DX Image Post Retina I And R Uni Or Bi Eye Exam Established Patient Intermediat e Destruction Of Localized Lesion Of Retin a Photocoagulation Focal Fluorescein Angiography With I And R Uni Or Bi Fundus Photography With I And R Biljacintaa danie OFFICE/OUTPATIENT VISIT, NEW Advance Directives Directive Yes / No Effective Date File Name No Information Encounters Encounter Description Practice Location Reason(s) For Visit Diagnoses Date Provider Providers Copied on Encounter [facility], [address] [facility], [place], [address], [place] [phone] SHAYE Zavaleta diabetic eye exam (chief complaint)re ports stable vision (chief complaint) Type 2 diab with moderate nonp rtnop with macular edema, biAge-related nuclear cataract, bilateralEssential (primary) hypertension [facility]. [address], [address], [place], [place], [id number] , [place]. [phone] Referring Provider: Lisa Crespo, [address], [place], [address] . tel:[phone] OFFICE/OUTPA TIENT VISIT, [facility], [address] [facility], [place], [address], [place] [phone] SHAYE Zavaleta diabetic retinopathy (chief complaint)st able vision (chief complaint) Essential (primary) hypertensionAge-rel ated nuclear cataract, bilateralType 2 diab with moderate nonp rtnop with macular edema, bi [facility]. [address], [address], [place], [place], [id number] , [place]. tel:[phone] Referring Provider: Lizy Metzger, [address] [place], [address]. tel:[phone] Family History Family Member Type Diagnosis Age At Onset Problem (finding) Family history of malignant neoplasm of urinary bladder Problem (finding) Family history of prost ate cancer Problem (finding) Family history of malignant neoplasm of ovary Problem (finding) Family history of hyper tension Problem (finding) Family history of Diabe isha mellitus Payers Payer name Insurance type Covered libertarian ID Authoriza tion(s) No Information Social History Type Description Quantity Date Captured Comments Alcohol Use Details No Caffeine Use Details No Tobacco Use Status Current non-smoker 21 Smoking Status Never smoker Sex Male Vital Signs Date / Time: Height Weight BMI Pulse Rate Blood Pressure Temperature Respiratory Rate Body Surface Area Head Circumference Head Circ. Percentile Wt./Jl. Percentile BMI percentile Pulse Ox Inhaled Ox 9:10 AM 151/85 mm[Hg] Chief Complaint And Reason For Visit From encounter dated '08/04/2019 09:00'. diabetic eye exam (chief complaint). Description: The 59 year old male presents for evaluation of diabetic eye exam in both eyes. reports stable vision (chief complaint). Description: The patient reports stable vision in both eyes since his last exam 3 months ago. Patient denies eye pain, flashes, floaters. Reason For Referral Reason For Referral No Information History Of Present Illness Encounter Date Complaint History Of Prese nt Illness diabetic eye exam The 59 year ol d male presents for evaluation of diabetic eye exam in both eyes. reports stable vision The patien t reports stable vision in both eyes since his last exam 3 months ago. Patient denies eye pain, flashes, floaters. stable vision The patient repo rts stable vision for 6+ months. It occurs all the time. It affects both near and far vision. The symptom is constant. In addition, the condition is associated with daily activity and chores. Patient denies flashes and floaters. Patient reports he went in for his 6 month eye follow up with no complaints. diabetic retinopathy The 59 year old male referred by Dr. Metzger for possible diabetic retinopathy in both eyes with CSME in the left eye. 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 OD. Condition: minimal edema assessment Age-related nuclear cataract, bi lateral impression Age-related nuclear cataract, bilateral: H25.13. OU. Condition: mild assessment Essential (primary) hypertension impression Essential (primary) hypertension : I10 Patient Care Teams Name Effective Dates (start - stop) Status Members No Information
--- OUTSIDE RECORDS SUMMARY | 2024-07-09 06:45 | XMS_ITS ---
Author Organization [facility] [place] Address [address] [place] [address] Care Team Providers Care Delinquent Account Clerk Name Role Phone Sp Washington DO Primary Care Provider Diego Arroyo Unavailable [phone] Allergies Allergen (clinical drug ingredient) Drug/Non Drug Allergy documented on EMR Reaction Allergy Type Onset Date Status pioglitazone Actos Unknown Drug Allergy Acti ve Byetta 10 MCG Pen Unknown Drug Allergy Active ciprofloxacin Cipro Unknown Drug Allergy Act gilbert diazepam Diazepam Unknown Drug Allergy Active levofloxacin Levofloxacin Unknown Drug Allergy A ctive morphine Morphine Unknown Drug Allergy Active REASON FOR VISIT Referral from Dr Washington Left ankle pain post fusion 1998 Medications Medication SIG (Take, Route, Frequency, Duration) Notes Start Date End Date Status Ozempic (0.25 or 0.5 MG/DOSE) 2 MG/3ML INJECT 0.5 MG SUBCUTANEOUSLY ONCE A WEEK FOR 28 DAYS Subcutaneous for 28 Days Not-Taking Ozempic (0.25 or 0.5 MG/DOSE) 2 MG/3ML INJECT 0.5 MG SUBCUTANEOUSLY ONCE A WEEK FOR 28 DAYS Subcutaneous for 28 Days Not-Taking Ozempic (0.25 or 0.5 MG/DOSE) 2 MG/3ML Subcutaneous for 28 Days Not-Taking Ozempic (0.25 or 0.5 MG/DOSE) 2 MG/3ML Subcutaneous for 28 Days Not-Taking Klor-Con/EF 25 MEQ Oral for 90 Days Not-Taking Fiasp FlexTouch 100 UNIT/ML INJECT 10 UN ITS SUBCUTANEOUSLY BEFORE MEALS 3 TIMES A DAY Subcutaneous for 90 Days Not-Taking Fiasp FlexTouch 100 UNIT/ML Subcutaneous for 90 Days Not-Taking Klor-Con/EF 25 MEQ DISSOLVE 1 TABLET IN LIQUID AND TAKE BY MOUTH TWICE A DAY Oral for 90 Days Not-Taking hydroCHLOROthiazide 25 MG TAKE 1 TABLET BY MOUTH EVERY DAY Oral for 30 Days Not-Taking hydroCHLOROthiazide 25 MG Oral for 30 Days Not-Taking Ciprofloxacin HCl 500 MG TAKE 1 TABLET B Y MOUTH EVERY 12 HOURS FOR 14 DAYS Oral for 14 Days Not-Taking Vardenafil HCl 10 MG TAKE 1 TABLET BY MOUTH ONCE A DAY NEEDED FOR SEXUAL ACTIVITY Oral for 30 Days Active Vardenafil HCl 10 MG Oral for 30 Days Active Sertraline HCl 100 MG Oral for 90 Days Active Ciprofloxacin HCl 500 MG Oral for 14 Days Not-Taking NovoLOG FlexPen 100 UNIT/ML INJECT 18 UN ITS SUBCUTANEOUSLY BEFORE EACH MEAL 3 TIMES A DAY Subcutaneous for 56 Days Active Pravastatin Sodium 40 MG Oral for 90 Days Active Ozempic (0.25 or 0.5 MG/DOSE) 2 MG/3ML INJECT 0.5 MG SUBCUTANEOUSLY ONCE A WEEK FOR 28 DAYS Subcutaneous for 28 Days Active Ozempic (0.25 or 0.5 MG/DOSE) 2 MG/3ML Subcutaneous for 28 Days Active Ozempic (0.25 or 0.5 MG/DOSE) 2 MG/3ML INJECT 0.5 MG SUBCUTANEOUSLY ONCE A WEEK FOR 28 DAYS Subcutaneous for 28 Days Active Mounjaro 2.5 MG/0.5ML Subcutaneous for 2 8 Days Active Metoprolol Succinate ER 50 MG Oral for 90 Days Active Mounjaro 5 MG/0.5ML INJECT 5 MG (0.5 ML) SUBCUTANEOUSLY EVERY WEEK FOR 28 DAYS Subcutaneous for 28 Days Active Mounjaro 5 MG/0.5ML Subcutaneous for 28 Days Active Mounjaro 2.5 MG/0.5ML INJECT 2.5 MG (0.5 ML) SUBCUTANEOUSLY EVERY WEEK FOR 28 DAYS Subcutaneous for 28 Days Active Losartan Potassium 100 MG Oral for 90 Days Active Losartan Potassium 50 MG Oral for 90 Days Active metFORMIN HCl 1000 MG Oral for 90 Days Active Losartan Potassium 50 MG TAKE 1 TABLET B Y MOUTH TWICE A DAY Oral for 30 Days Active Lantus SoloStar 100 UNIT/ML INJECT 50 UN ITS SUBCUTANEOUSLY DAILY Subcutaneous for 90 Days Active Gabapentin 100 MG Oral for 90 Days Active Lantus SoloStar 100 UNIT/ML Subcutaneous for 90 Days Active hydrALAZINE HCl 10 MG Oral for 30 Days Active hydrALAZINE HCl 10 MG TAKE 1 TABLET BY MOUTH TWICE A DAY Oral for 30 Days Active Gabapentin 100 MG Oral for 90 Days Active Carvedilol 6.25 MG Oral for 90 Days Active cloNIDine HCl 0.1 MG TAKE 1 TABLET TWICE DAILY FOR 30 DAYS Oral for 30 Days Active cloNIDine HCl 0.1 MG Oral for 30 Days Active Carvedilol 6.25 MG TAKE 1 TABLET ORALLY EVERY 12 HOURS FOR 30 DAYS MUST ADMINISTER WITH A MEAL/FOOD Oral for 30 Days Active BD Pen Needle Mini U/F 31G X 5 MM USE DIRECTED 4 TIMES DAILY for 90 Days Active amLODIPine Besylate 5 MG Oral for 90 Days Active BD Pen Needle Mini U/F 31G X 5 MM for 90 Days Active Social History Tobacco Use: Social History Observation Description Date Details (start date - stop date) Never Smoker NA - NA Tobacco Control (Standard) Question Answer Notes Tobacco use: Nonsmoker Problems Problem Type SNOMED Code ICD Code Onset Dates Problem Status W/U Status Risk Notes Problem [id number] Primary osteoarthritis, left ankle and foot (M19.072) Active confirmed Problem [id number] Presence of functional implant, 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 (PODIAT[facility]) [address] [place] [address] [place] [address] 07/09/2024 [facility] Primary osteoarthritis, left ankle and foot M19.072 ; Presence of functional implant, unspecified Z96.9 ; Pain due to internal orthopedic prosthetic devices, implants and grafts, initial encounter T84.84XA and Pain in left ankle and joints of left foot M25.572 Assessments Encounter Date Diagnosis (ICD Code) Assessment Notes Treatment Notes Treatment Clinical Notes Section Notes 07/09/2024 Primary osteoarthritis, left ankle and foot (ICD-10 - M19.072) Patient seen and evaluated. Patient education provided. Patient was referred by Dr. Washington his primary care physician for worsening left foot/ankle pain. He has undergone multiple surgical procedures for his left ankle performed by Dr. Bonilla in the which ultimately resulted in ankle fusion. Over the last several years his pain is only worsened despite multiple iqtr-ouu-abonutd braces as well as a custom AFO. Shoe and activity modification has not helped either.His x-rays are concerning that one of the screws has migrated into the subtalar joint therefore some of his pain may be in part to the hardware but there is a high concern also for arthritis so I recommend a CT scan to help with potential surgical planning. He will follow-up after this is obtained no new x-rays are needed 07/09/2024 Presence of functional implant, unspecified (ICD-10 - Z96.9) 07/09/2024 Pain due to internal orthopedic prosthetic devices, implants and grafts, initial encounter (ICD-10 - T84.84XA) 07/09/2024 Pain in left ankle and joints of left foot (ICD-10 - M25.572) Plan Of Treatment Treatment Notes Assessment Notes Primary osteoarthritis, left ankle and foot Patient seen and evaluated. Patient education provided. Patient was referred by Dr. Washington his primary care physician for worsening left foot/ankle pain. He has undergone multiple surgical procedures for his left ankle performed by Dr. Bonilla in the which ultimately resulted in ankle fusion. Over the last several years his pain is only worsened despite multiple somq-wym-rcaxegg braces as well as a custom AFO. Shoe and activity modification has not helped either.His x-rays are concerning that one of the screws has migrated into the subtalar joint therefore some of his pain may be in part to the hardware but there is a high concern also for arthritis so I recommend a CT scan to help with potential surgical planning. He will follow-up after this is obtained no new x-rays are needed Pending Test Test Name Order Date XR Ankle LT (3 views) * (164) 07/09/2024 XR Foot LT (3 views) * 07/09/2024 CT Ankle LT w/o contrast * (Optional 3D Rendering) 07/09/2024 Progress Notes * Tariq REAL LDOB: 2 (64 yo M)Acc No.[id number]:07/09/2024 New Patient Patient: Tariq LOPEZ Provider: Hermelinda Turner DPM, MS :1960 A ge:64 Y S ex:Male Date:07/09/2024 Address:[address] [place], [place] [address], [place] Pcp:Sp Washington, DO Check In:10:48 AM ESTCheck O ut:11:36 AM EST Subjective: * Chief Complaints: * R eferral from Dr Washington Left ankle pain post fusion 1998 * HPI: G eneral: PT states he is here for evaluation left foot/ ankle. States He had a work injury from 1993, was coming off raised platform and rolled left ankle/ foot . He had 4 reconstruction surgeries and an ankle fusion per Dr Bonilla. He has never been pain free. Rates pain 2/10 @ present and states can get up to 10/10 at times . He has swelling to left ankle foot medial and lateral. Pt states he has problems with steady gait due to has history of tumor right femor and has hardware and problems with right knee because of it. * ROS: G eneral/Constitutional: Chills d enies. F ever d enies. W eight gain?denies. W eight loss d enies. S kin: Skin Ulcers d enies. S kin lesion(s) d enies. ? C ardiovascular: Difficulty breathing on exertion d enies. L eg cramps?denies. E sekou d enies. C hest pain d enies. R espiratory: Difficulty breathing d enies. D yspnea d enies.?Cough d enies. G astrointestinal: Diarrhea d enies. N ausea d enies. V omiting?denies. M usculoskeletal: Bone/Joint Symptoms d enies. C skilled nursing Pain d enies.?Leg cramps d enies. N eurologic: Numbness d enies. T ingling d enies . G ait abnormality d enies. ? H ematology: Anemia D enies. E asy bruising d enies. ? A ll Other Systems: Review of Systems (ROS) S ee HPI for details,All others negative except those mentioned in HPI. * Active Problem List M25.572 Pain in left ankle a nd joints of left foot Modified On:07/09/2024W/U Status:confirmed M19.072 Primary osteoarthrit is, left ankle and foot Modified On:07/11/2024W/U Status:confirmed Z96.9 Presence of function al implant, unspecified Modified On:07/11/2024W/U Status:confirmed * Medical History: * Surgical History: l eft ankle reconstruction 1993, 1995, 1997, (1998 left ankle fusion) Dr Bonilla right femor reconstruction 2001 Dr Bonilla kidney lithotripsy polypectomy Prostate * Hospitalization/Major Diagno stic Procedure: s ee above * Family History: F ather: diagnosed with Other malignant neoplasm of unspecified site. M other: diagnosed with Diabetes mellitus without mention of complication, type II or unspecified type, not stated as uncontrolled, Unspecified essential hypertension. S on(s): diagnosed with Diabetes mellitus without mention of complication, type II or unspecified type, not stated as uncontrolled. * Social History: T obacco Use: T obacco Control (Standard) T obacco use: N onsmoker * Medications: T akingamLODIPine Besylate 5 MG Tablet Oral BD Pen Needle Mini U/F(Insulin Pen Needle) 31G X 5 MM Miscellaneous BD Pen Needle Mini U/F(Insulin Pen Needle) 31G X 5 MM Miscellaneous USE DIRECTED 4 TIMES DAILY Carvedilol 6.25 MG Tablet Oral Carvedilol 6.25 MG Tablet TAKE 1 TABLET ORALLY EVERY 12 HOURS FOR 30 DAYS MUST ADMINISTER WITH A MEAL/FOOD Oral cloNIDine HCl 0.1 MG Tablet Oral cloNIDine HCl 0.1 MG Tablet TAKE 1 TABLET TWICE DAILY FOR 30 DAYS Oral Gabapentin 100 MG Capsule Oral Gabapentin 100 MG Capsule Oral hydrALAZINE HCl 10 MG Tablet TAKE 1 TABLET BY MOUTH TWICE A DAY Oral hydrALAZINE HCl 10 MG Tablet Oral Lantus SoloStar(Insulin Glargine) 100 UNIT/ML Solution Pen-injector Subcutaneous Lantus SoloStar(Insulin Glargine) 100 UNIT/ML Solution Pen-injector INJECT 50 UNITS SUBCUTANEOUSLY DAILY Subcutaneous Losartan Potassium 50 MG Tablet Oral Losartan Potassium 100 MG Tablet Oral Losartan Potassium 50 MG Tablet TAKE 1 TABLET BY MOUTH TWICE A DAY Oral metFORMIN HCl 1000 MG Tablet Oral Metoprolol Succinate ER 50 MG Tablet Extended Release 24 Hour Oral Mounjaro(Tirzepatide) 2.5 MG/0.5ML Solution Pen-injector Subcutaneous Mounjaro(Tirzepatide) 2.5 MG/0.5ML Solution Pen-injector INJECT 2.5 MG (0.5 ML) SUBCUTANEOUSLY EVERY WEEK FOR 28 DAYS Subcutaneous Mounjaro(Tirzepatide) 5 MG/0.5ML Solution Pen-injector Subcutaneous Mounjaro(Tirzepatide) 5 MG/0.5ML Solution Pen-injector INJECT 5 MG (0.5 ML) SUBCUTANEOUSLY EVERY WEEK FOR 28 DAYS Subcutaneous NovoLOG FlexPen(Insulin Aspart) 100 UNIT/ML Solution Pen-injector INJECT 18 UNITS SUBCUTANEOUSLY BEFORE EACH MEAL 3 TIMES A DAY Subcutaneous Ozempic (0.25 or 0.5 MG/DOSE)(Semaglutide(0.25 or 0.5MG/DOS)) 2 MG/3ML Solution Pen-injector INJECT 0.5 MG SUBCUTANEOUSLY ONCE A WEEK FOR 28 DAYS Subcutaneous Ozempic (0.25 or 0.5 MG/DOSE)(Semaglutide(0.25 or 0.5MG/DOS)) 2 MG/3ML Solution Pen-injector Subcutaneous Ozempic (0.25 or 0.5 MG/DOSE)(Semaglutide(0.25 or 0.5MG/DOS)) 2 MG/3ML Solution Pen-injector INJECT 0.5 MG SUBCUTANEOUSLY ONCE A WEEK FOR 28 DAYS Subcutaneous Pravastatin Sodium 40 MG Tablet Oral Sertraline HCl 100 MG Tablet Oral Vardenafil HCl 10 MG Tablet Oral Vardenafil HCl 10 MG Tablet TAKE 1 TABLET BY MOUTH ONCE A DAY NEEDED FOR SEXUAL ACTIVITY Oral Taking amLODIPine Besylate 5 MG Tablet Oral Taking BD Pen Needle Mini U/F(Insulin Pen Needle) 31G X 5 MM Miscellaneous Taking BD Pen Needle Mini U/F(Insulin Pen Needle) 31G X 5 MM Miscellaneous USE DIRECTED 4 TIMES DAILY Taking Carvedilol 6.25 MG Tablet Oral Taking Carvedilol 6.25 MG Tablet TAKE 1 TABLET ORALLY EVERY 12 HOURS FOR 30 DAYS MUST ADMINISTER WITH A MEAL/FOOD Oral Taking cloNIDine HCl 0.1 MG Tablet Oral Taking cloNIDine HCl 0.1 MG Tablet TAKE 1 TABLET TWICE DAILY FOR 30 DAYS Oral Taking Gabapentin 100 MG Capsule Oral Taking Gabapentin 100 MG Capsule Oral Taking hydrALAZINE HCl 10 MG Tablet TAKE 1 TABLET BY MOUTH TWICE A DAY Oral Taking hydrALAZINE HCl 10 MG Tablet Oral Taking Lantus SoloStar(Insulin Glargine) 100 UNIT/ML Solution Pen-injector Subcutaneous Taking Lantus SoloStar(Insulin Glargine) 100 UNIT/ML Solution Pen-injector INJECT 50 UNITS SUBCUTANEOUSLY DAILY Subcutaneous Taking Losartan Potassium 50 MG Tablet Oral Taking Losartan Potassium 100 MG Tablet Oral Taking Losartan Potassium 50 MG Tablet TAKE 1 TABLET BY MOUTH TWICE A DAY Oral Taking metFORMIN HCl 1000 MG Tablet Oral Taking Metoprolol Succinate ER 50 MG Tablet Extended Release 24 Hour Oral Taking Mounjaro(Tirzepatide) 2.5 MG/0.5ML Solution Pen-injector Subcutaneous Taking Mounjaro(Tirzepatide) 2.5 MG/0.5ML Solution Pen-injector INJECT 2.5 MG (0.5 ML) SUBCUTANEOUSLY EVERY WEEK FOR 28 DAYS Subcutaneous Taking Mounjaro(Tirzepatide) 5 MG/0.5ML Solution Pen-injector Subcutaneous Taking Mounjaro(Tirzepatide) 5 MG/0.5ML Solution Pen-injector INJECT 5 MG (0.5 ML) SUBCUTANEOUSLY EVERY WEEK FOR 28 DAYS Subcutaneous Taking NovoLOG FlexPen(Insulin Aspart) 100 UNIT/ML Solution Pen- injector INJECT 18 UNITS SUBCUTANEOUSLY BEFORE EACH MEAL 3 TIMES A DAY Subcutaneous Taking Ozempic (0.25 or 0.5 MG/DOSE)(Semaglutide(0.25 or 0.5MG/DOS)) 2 MG/3ML Solution Pen-injector INJECT 0.5 MG SUBCUTANEOUSLY ONCE A WEEK FOR 28 DAYS Subcutaneous Taking Ozempic (0.25 or 0.5 MG/DOSE)(Semaglutide(0.25 or 0.5MG/DOS)) 2 MG/3ML Solution Pen-injector Subcutaneous Taking Ozempic (0.25 or 0.5 MG/DOSE)(Semaglutide(0.25 or 0.5MG/DOS)) 2 MG/3ML Solution Pen-injector INJECT 0.5 MG SUBCUTANEOUSLY ONCE A WEEK FOR 28 DAYS Subcutaneous Taking Pravastatin Sodium 40 MG Tablet Oral Taking Sertraline HCl 100 MG Tablet Oral Taking Vardenafil HCl 10 MG Tablet Oral Taking Vardenafil HCl 10 MG Tablet TAKE 1 TABLET BY MOUTH ONCE A DAY NEEDED FOR SEXUAL ACTIVITY Oral Not-Taking/PRNCiprofloxacin HCl 500 MG Tablet TAKE 1 TABLET BY MOUTH EVERY 12 HOURS FOR 14 DAYS Oral Ciprofloxacin HCl 500 MG Tablet Oral Fiasp FlexTouch(Insulin Aspart (w/Niacinamide)) 100 UNIT/ML Solution Pen-injector INJECT 10 UNITS SUBCUTANEOUSLY BEFORE MEALS 3 TIMES A DAY Subcutaneous Fiasp FlexTouch(Insulin Aspart (w/Niacinamide)) 100 UNIT/ML Solution Pen-injector Subcutaneous hydroCHLOROthiazide 25 MG Tablet Oral hydroCHLOROthiazide 25 MG Tablet TAKE 1 TABLET BY MOUTH EVERY DAY Oral Klor-Con/EF(Potassium Bicarbonate) 25 MEQ Tablet Effervescent DISSOLVE 1 TABLET IN LIQUID AND TAKE BY MOUTH TWICE A DAY Oral Klor- Con/EF(Potassium Bicarbonate) 25 MEQ Tablet Effervescent Oral Ozempic (0.25 or 0.5 MG/DOSE)(Semaglutide(0.25 or 0.5MG/DOS)) 2 MG/3ML Solution Pen-injector Subcutaneous Ozempic (0.25 or 0.5 MG/DOSE)(Semaglutide(0.25 or 0.5MG/DOS)) 2 MG/3ML Solution Pen-injector Subcutaneous Ozempic (0.25 or 0.5 MG/DOSE)(Semaglutide(0.25 or 0.5MG/DOS)) 2 MG/3ML Solution Pen-injector INJECT 0.5 MG SUBCUTANEOUSLY ONCE A WEEK FOR 28 DAYS Subcutaneous Ozempic (0.25 or 0.5 MG/DOSE)(Semaglutide(0.25 or 0.5MG/DOS)) 2 MG/3ML Solution Pen-injector INJECT 0.5 MG SUBCUTANEOUSLY ONCE A WEEK FOR 28 DAYS Subcutaneous Medication List reviewed and reconciled with the patientNot-Taking/PRN Ciprofloxacin HCl 500 MG Tablet TAKE 1 TABLET BY MOUTH EVERY 12 HOURS FOR 14 DAYS Oral Not-Taking/PRN Ciprofloxacin HCl 500 MG Tablet Oral Not-Taking/PRN Fiasp FlexTouch(Insulin Aspart (w/Niacinamide)) 100 UNIT/ML Solution Pen-injector INJECT 10 UNITS SUBCUTANEOUSLY BEFORE MEALS 3 TIMES A DAY Subcutaneous Not-Taking/PRN Fiasp FlexTouch(Insulin Aspart (w/Niacinamide)) 100 UNIT/ML Solution Pen-injector Subcutaneous Not-Taking/PRN hydroCHLOROthiazide 25 MG Tablet Oral Not-Taking/PRN hydroCHLOROthiazide 25 MG Tablet TAKE 1 TABLET BY MOUTH EVERY DAY Oral Not-Taking/PRN Klor-Con/EF(Potassium Bicarbonate) 25 MEQ Tablet Effervescent DISSOLVE 1 TABLET IN LIQUID AND TAKE BY MOUTH TWICE A DAY Oral Not-Taking/PRN Klor-Con/EF(Potassium Bicarbonate) 25 MEQ Tablet Effervescent Oral Not- Taking/PRN Ozempic (0.25 or 0.5 MG/DOSE)(Semaglutide(0.25 or 0.5MG/DOS)) 2 MG/3ML Solution Pen-injector Subcutaneous Not-Taking/PRN Ozempic (0.25 or 0.5 MG/DOSE)(Semaglutide(0.25 or 0.5MG/DOS)) 2 MG/3ML Solution Pen-injector Subcutaneous Not-Taking/PRN Ozempic (0.25 or 0.5 MG/DOSE)(Semaglutide(0.25 or 0.5MG/DOS)) 2 MG/3ML Solution Pen-injector INJECT 0.5 MG SUBCUTANEOUSLY ONCE A WEEK FOR 28 DAYS Subcutaneous Not-Taking/PRN Ozempic (0.25 or 0.5 MG/DOSE)(Semaglutide(0.25 or 0.5MG/DOS)) 2 MG/3ML Solution Pen-injector INJECT 0.5 MG SUBCUTANEOUSLY ONCE A WEEK FOR 28 DAYS Subcutaneous Medication List reviewed and reconciled with the patient * Allergies: M orphineActosCiproLevofloxacinByetta 10 MCG PenDiazepamno[Allergies Verified] Objective: * Vitals: W t:228lbs, Ht:70in, Temp:97.2F, HR:86/min, RR:18/min, BMI:32.71Index, Pain scale:21-10, Ht-cm: 177.8 cm, Wt-k.42 kg. * Examination: P odiatry Examination: SKIN: s kin intact, n o sign of infection. MUSCULOSKELETAL: P OP to the sinus tarsi and with attempted range of motion of the subtalar joint which is less than 10 degrees. The ankle joint is clinically fused and in neutral position. NEUROLOGICAL: l ight touch sensation intact, n egative tinel's sign. VASCULAR: P edal pulses palpable, C apillaryrefill is brisk to toe. X -rays: x-rays were obtained & reviewed in my office. There are several screws transfixing a fused ankle joint. Lateral projection is concerning for one of the screws being in the posterior aspect of the subtalar joint. Subtalar joint does appear to be arthritic. Alignment of the fusion is satisfactory and all hardware including metallic anchors are without loosening. Assessment: * Assessment: 1. P rimary osteoarthritis, left ankle and foot - M19.072 (Primary) 2 . P resence of functional implant, unspecified - Z96.9 3 . P ain due to internal orthopedic prosthetic devices, implants and grafts, initial encounter - T84.84XA 4 . P ain in left ankle and joints of left foot - M25.572 Plan: * Treatment: 2. P ain in left ankle and joints of left foot I maging: XR Ankle LT (3 views) * (164) I maging: XR Foot LT (3 views) * I maging: CT Ankle LT w/o contrast * (Optional 3D Rendering) 3. O thers I maging: CT Ankle RT w/o contrast * (Optional 3D Rendering) (Order Cancelled) * Procedure Codes: * Preventive Medicine: Screenings/Counseling: B IN ACTION PLAN Above Normal BMI Follow-up D ietary management education, guidance, and counseling F ALL RISK SCREENING Fall Risk Assessment: N o falls in the past year * * Sign off status: Completed Visit Status: C HK (Check Out) true * Provider: Hermelinda Turner DPM, MS Date: 0 07/09/2024 Generated for Grace barker/Jeanne/Alphonsoransmitting on: 0 04/22/2025 12:45 PM EDT History and Physical Notes * HPI (History of Present Illness) Category Sub-Category Detail Notes Category Not es General PT states he is here for evaluation left foot/ ankle. States He had a work injury from 1993, was coming off raised platform and rolled left ankle/ foot . He had 4 reconstruction surgeries and an ankle fusion per Dr Bonilla. He has never been pain free. Rates pain 2/10 @ present and states can get up to 10/10 at times . He has swelling to left ankle foot medial and lateral. Pt states he has problems with steady gait due to has history of tumor right femor and has hardware and problems with right knee because of it. Examination Category Sub-Category Detail Notes Category Not es Podiatry Examination SKIN: skin intact, no sign of infection X-rays: x-rays were obtained & reviewed in my office. There are several screws transfixing a fused ankle joint. Lateral projection is concerning for one of the screws being in the posterior aspect of the subtalar joint. Subtalar joint does appear to be arthritic. Alignment of the fusion is satisfactory and all hardware including metallic anchors are without loosening MUSCULOSKELETAL: POP to the sinus tar si and with attempted range of motion of the subtalar joint which is less than 10 degrees. The ankle joint is clinically fused and in neutral position NEUROLOGICAL: light touch sensatio n intact, negative tinel's sign VASCULAR: Pedal pulses palpable, Capillary refill is brisk to toe
--- OUTSIDE RECORDS SUMMARY | 2024-07-29 09:00 | XMS_ITS ---
Author Organization [facility] [place] Address [address] [place] [address] Care Team Providers [facility] Former Name Role Phone Sp Washington DO Primary Care Provider Diego Arroyo Unavailable [phone] Allergies Allergen (clinical drug ingredient) Drug/Non Drug Allergy documented on EMR Reaction Allergy Type Onset Date Status pioglitazone Actos Unknown Drug Allergy Acti ve Byetta 10 MCG Pen Unknown Drug Allergy Active ciprofloxacin Cipro Unknown Drug Allergy Act gilbert diazepam Diazepam Unknown Drug Allergy Active levofloxacin Levofloxacin Unknown Drug Allergy A ctive morphine Morphine Unknown Drug Allergy Active REASON FOR VISIT CT review Medications Medication SIG (Take, Route, Frequency, Duration) Notes Start Date End Date Status Sertraline HCl 100 MG Oral for 90 Days Active Ozempic (0.25 or 0.5 MG/DOSE) 2 MG/3ML Subcutaneous for 28 Days Active Ozempic (0.25 or 0.5 MG/DOSE) 2 MG/3ML INJECT 0.5 MG SUBCUTANEOUSLY ONCE A WEEK FOR 28 DAYS Subcutaneous for 28 Days Active Pravastatin Sodium 40 MG Oral for 90 Days Active Ozempic (0.25 or 0.5 MG/DOSE) 2 MG/3ML INJECT 0.5 MG SUBCUTANEOUSLY ONCE A WEEK FOR 28 DAYS Subcutaneous for 28 Days Active Mounjaro 5 MG/0.5ML Subcutaneous for 28 Days Active Mounjaro 2.5 MG/0.5ML INJECT 2.5 MG (0.5 ML) SUBCUTANEOUSLY EVERY WEEK FOR 28 DAYS Subcutaneous for 28 Days Active NovoLOG FlexPen 100 UNIT/ML INJECT 18 UN ITS SUBCUTANEOUSLY BEFORE EACH MEAL 3 TIMES A DAY Subcutaneous for 56 Days Active Mounjaro 5 MG/0.5ML INJECT 5 MG (0.5 ML) SUBCUTANEOUSLY EVERY WEEK FOR 28 DAYS Subcutaneous for 28 Days Active Mounjaro 2.5 MG/0.5ML Subcutaneous for 2 8 Days Active Metoprolol Succinate ER 50 MG Oral for 90 Days Active metFORMIN HCl 1000 MG Oral for 90 Days Active Losartan Potassium 50 MG Oral for 90 Days Active Losartan Potassium 50 MG TAKE 1 TABLET B Y MOUTH TWICE A DAY Oral for 30 Days Active Losartan Potassium 100 MG Oral for 90 Days Active Lantus SoloStar 100 UNIT/ML INJECT 50 UN ITS SUBCUTANEOUSLY DAILY Subcutaneous for 90 Days Active hydrALAZINE HCl 10 MG TAKE 1 TABLET BY M OUTH TWICE A DAY Oral for 30 Days Active Gabapentin 100 MG Oral for 90 Days Active Lantus SoloStar 100 UNIT/ML Subcutaneous for 90 Days Active hydrALAZINE HCl 10 MG Oral for 30 Days Active cloNIDine HCl 0.1 MG TAKE 1 TABLET TWICE DAILY FOR 30 DAYS Oral for 30 Days Active cloNIDine HCl 0.1 MG Oral for 30 Days Active Gabapentin 100 MG Oral for 90 Days Active Carvedilol 6.25 MG TAKE 1 TABLET ORALLY EVERY 12 HOURS FOR 30 DAYS MUST ADMINISTER WITH A MEAL/FOOD Oral for 30 Days Active Carvedilol 6.25 MG Oral for 90 Days Active BD Pen Needle Mini U/F 31G X 5 MM USE DIRECTED 4 TIMES DAILY for 90 Days Active BD Pen Needle Mini U/F 31G X 5 MM for 90 Days Active Ozempic (0.25 or 0.5 MG/DOSE) 2 MG/3ML INJECT 0.5 MG SUBCUTANEOUSLY ONCE A WEEK FOR 28 DAYS Subcutaneous for 28 Days Unknown amLODIPine Besylate 5 MG Oral for 90 Days Active Ozempic (0.25 or 0.5 MG/DOSE) 2 MG/3ML INJECT 0.5 MG SUBCUTANEOUSLY ONCE A WEEK FOR 28 DAYS Subcutaneous for 28 Days Unknown hydroCHLOROthiazide 25 MG TAKE 1 TABLET BY MOUTH EVERY DAY Oral for 30 Days Unknown Klor-Con/EF 25 MEQ Oral for 90 Days Unknown Klor-Con/EF 25 MEQ DISSOLVE 1 TABLET IN LIQUID AND TAKE BY MOUTH TWICE A DAY Oral for 90 Days Unknown Ozempic (0.25 or 0.5 MG/DOSE) 2 MG/3ML Subcutaneous for 28 Days Unknown Ozempic (0.25 or 0.5 MG/DOSE) 2 MG/3ML Subcutaneous for 28 Days Unknown hydroCHLOROthiazide 25 MG Oral for 30 Days Unknown Ciprofloxacin HCl 500 MG Oral for 14 Days Unknown Ciprofloxacin HCl 500 MG TAKE 1 TABLET B Y MOUTH EVERY 12 HOURS FOR 14 DAYS Oral for 14 Days Unknown Fiasp FlexTouch 100 UNIT/ML Subcutaneous for 90 Days Unknown Fiasp FlexTouch 100 UNIT/ML INJECT 10 UN ITS SUBCUTANEOUSLY BEFORE MEALS 3 TIMES A DAY Subcutaneous for 90 Days Unknown Vardenafil HCl 10 MG TAKE 1 TABLET BY [facility] ONCE A DAY NEEDED FOR SEXUAL ACTIVITY Oral for 30 Days Active Vardenafil HCl 10 MG Oral for 30 Days Active Social History Tobacco Use: Social History Observation Description Date Details (start date - stop date) Never Smoker NA - NA Tobacco Control (Standard) Question Answer Notes Tobacco use: Nonsmoker Vital Signs Weight 228 lbs 07/29/2024 Height 70 in 07/29/2024 Temperature 97.8 degrees Fahrenheit 07/29/20 24 Heart Rate 88 /min 07/29/2024 BMI 32.71 kg/m2 07/29/2024 Encounters Encounter Location Date Provider Diagnosis [facility] (PODIATRY) [address] [place] [address] [place] [address] 07/29/2024 Diego [facility] Pain due to internal orthopedic prosthetic devices, implants and grafts, initial encounter T84.84XA and Primary osteoarthritis, left ankle and foot M19.072 Assessments Encounter Date Diagnosis (ICD Code) Assessment Notes Treatment Notes Treatment Clinical Notes Section Notes 07/29/2024 Pain due to internal orthopedic prosthetic devices, implants and grafts, initial encounter (ICD-10 - T84.84XA) Patient was seen and evaluated. Patient's condition was provided and all questions were answered to satisfaction. I reviewed x-rays, CT and physical exam findings. I had a long discussion with the patient regarding the potential risks and benefits of subtalar joint fusion versus removing the painful hardware. I discussed the recovery associated with both options. Patient would like to undergo : Removal of hardware left ankle I reviewed the possible complications which include but not limited to infection, wound healing issue, numbness and tingling, bleeding, blood clot, pain, need for additional surgery. I specifically discussed that removing this hardware could result in no significant relief in pain or potentially worsen his pain and may require subtalar joint fusion. But given the relatively easy recovery patient is willing to take this chance Postoperative course was reviewed and the patient will likely be: Weightbearing as tolerated in surgical shoe or cam boot Patient will be: outpatient postoperatively Proposed anesthesia:Genera l: Proposed implants: Screwdrivers for medium and large frag from [employer] 07/29/2024 Primary osteoarthritis, left ankle and foot (ICD-10 - M19.072) Plan Of Treatment Treatment Notes Assessment Notes Pain due to internal orthope dic prosthetic devices, implants and grafts, initial encounter Patient was seen and evaluated. Patient's condition was provided and all questions were answered to satisfaction. I reviewed x-rays, CT and physical exam findings. I had a long discussion with the patient regarding the potential risks and benefits of subtalar joint fusion versus removing the painful hardware. I discussed the recovery associated with both options. Patient would like to undergo : Removal of hardware left ankle I reviewed the possible complications which include but not limited to infection, wound healing issue, numbness and tingling, bleeding, blood clot, pain, need for additional surgery. I specifically discussed that removing this hardware could result in no significant relief in pain or potentially worsen his pain and may require subtalar joint fusion. But given the relatively easy recovery patient is willing to take this chance Postoperative course was reviewed and the patient will likely be: Weightbearing as tolerated in surgical shoe or cam boot Patient will be: outpatient postoperatively Proposed anesthesia:General: Proposed implants: Screwdrivers for medium and large frag from [employer] Progress Notes * Presley REALuel LDOB: 2 (64 yo M)Acc No.[id number]:07/29/2024 Follow Up Patient: Tariq LOPEZ Provider: Hermelinda Turner DPM MS :1960 A ge:64 Y S ex:Male Date:07/29/2024 Address:[address] [place] [address] [id number] Pcp:Sp Washington, DO Check In:12:46 PM ESTCheck O ut:01:22 PM EST Subjective: * Chief Complaints: * C T review * HPI: G eneral: Patient returns to office today for CT scan review of his left ankle. He is currently c/o Subtalar joint pain rating it roday a 3/10 with activity. He is not currently taking anything for pain. Resting and elevating at home. * Active Problem List M25.572 Pain in left ankle a nd joints of left foot Modified On:07/09/2024W/U Status:confirmed M19.072 Primary osteoarthrit is, left ankle and foot Modified On:07/11/2024W/U Status:confirmed Z96.9 Presence of function al implant, unspecified Modified On:07/11/2024/U Status:confirmed * Medical History: * Surgical History: [...] A DAY NEEDED FOR SEXUAL ACTIVITY Oral UnknownCiprofloxacin HCl 500 MG Tablet TAKE 1 TABLET [...] TAKE BY MOUTH TWICE A DAY Oral Klor-Con/EF(Potassium Bicarbonate) 25 MEQ Tablet Effervescent Oral Ozempic [...] Medication List reviewed and reconciled with the patientUnknown Ciprofloxacin HCl 500 MG Tablet TAKE 1 TABLET BY MOUTH EVERY 12 HOURS FOR 14 DAYS Oral Unknown Ciprofloxacin HCl 500 MG Tablet Oral Unknown Fiasp FlexTouch(Insulin Aspart (w/Niacinamide)) 100 UNIT/ML Solution Pen-injector INJECT 10 UNITS SUBCUTANEOUSLY BEFORE MEALS 3 TIMES A DAY Subcutaneous Unknown Fiasp FlexTouch(Insulin Aspart (w/Niacinamide)) 100 UNIT/ML Solution Pen-injector Subcutaneous Unknown hydroCHLOROthiazide 25 MG Tablet Oral Unknown hydroCHLOROthiazide 25 MG Tablet TAKE 1 TABLET BY MOUTH EVERY DAY Oral Unknown Klor-Con/EF(Potassium Bicarbonate) 25 MEQ Tablet Effervescent DISSOLVE 1 TABLET IN LIQUID AND TAKE BY MOUTH TWICE A DAY Oral Unknown Klor-Con/EF(Potassium Bicarbonate) 25 MEQ Tablet Effervescent Oral Unknown Ozempic (0.25 or 0.5 MG/DOSE)(Semaglutide(0.25 or 0.5MG/DOS)) 2 MG/3ML Solution Pen-injector Subcutaneous Unknown Ozempic (0.25 or 0.5 MG/DOSE)(Semaglutide(0.25 or 0.5MG/DOS)) 2 MG/3ML Solution Pen-injector Subcutaneous Unknown Ozempic (0.25 or 0.5 MG/DOSE)(Semaglutide(0.25 or 0.5MG/DOS)) 2 MG/3ML Solution Pen-injector INJECT 0.5 MG SUBCUTANEOUSLY ONCE A WEEK FOR 28 DAYS Subcutaneous Unknown Ozempic (0.25 or 0.5 MG/DOSE)(Semaglutide(0.25 or 0.5MG/DOS)) 2 MG/3ML Solution Pen-injector INJECT 0.5 MG SUBCUTANEOUSLY ONCE A WEEK FOR 28 DAYS Subcutaneous Medication List reviewed and reconciled with the patient * Allergies: M orphineActosCiproLevofloxacinByetta 10 MCG PenDiazepamno[Allergies Verified] Objective: * Vitals: W t:228lbs, Ht: 70 in, Temp:97.8F, HR:88/min, BMI:32.71Index, Pain scale:31-10, Ht-cm: 177.8 cm, Wt-k.42 kg. * Examination: P odiatry Examination: SKIN: s kin intact, n o sign of infection. MUSCULOSKELETAL: P OP over a screw head over the anterior medial distal tibia which is palpable beneath the skin. There is also pain with attempted subtalar joint range of motion. Ankle and hindfoot are in a neutral position. NEUROLOGICAL: l ight touch sensation intact, n egative tinel's sign. VASCULAR: P edal pulses palpable, C apillaryrefill is brisk to toe. C T scan was reviewed with the patient which does show 1 screw in the posterior aspect of the posterior facet of the subtalar joint going lateral to medial. There is also slight prominence of the screw head over the anterior medial distal tibia. Assessment: * Assessment: 1. P ain due to internal orthopedic prosthetic devices, implants and grafts, initial encounter - T84.84XA (Primary) 2 . P rimary osteoarthritis, left ankle and foot - M19.072 Plan: * Treatment: * Procedure Codes: * * Sign off status: Completed Visit Status: C HK (Check Out) true * Provider: Hermelinda Turner DPM, MS Date: 0 07/29/2024 Generated for Grace barker/Jeanne/Maryamitting on: 0 04/22/2025 12:45 PM EDT History and Physical Notes * HPI (History of Present Illness) Category Sub-Category Detail Notes Category Not es General Patient returns to office today for CT scan review of his left ankle. He is currently c/o Subtalar joint pain rating it roday a 3/10 with activity. He is not currently taking anything for pain. Resting and elevating at home. Examination Category Sub-Category Detail Notes Category Not es Podiatry Examination SKIN: skin intact, no sign of infection CT scan was reviewed with the patient which does show 1 screw in the posterior aspect of the posterior facet of the subtalar joint going lateral to medial. There is also slight prominence of the screw head over the anterior medial distal tibia MUSCULOSKELETAL: POP over a screw hea d over the anterior medial distal tibia which is palpable beneath the skin. There is also pain with attempted subtalar joint range of motion. Ankle and hindfoot are in a neutral position NEUROLOGICAL: light touch sensatio n intact, negative tinel's sign VASCULAR: Pedal pulses palpable, Capillary refill is brisk to toe
--- OUTSIDE RECORDS SUMMARY | 2025-04-22 12:45 | XMS_ITS | Patient Health Record ---
Author Organization [facility] [place] Address [address] [place] [address] Care Team Providers Care Coremaker Bench Name Role Phone Sp Washington DO Primary Care Provider Diego Arroyo [facility] [phone] Allergies Allergen (clinical drug ingredient) Drug/Non Drug Allergy documented on EMR Reaction Allergy Type Onset Date Status pioglitazone Actos Unknown Drug Allergy Acti ve Byetta 10 MCG Pen Unknown Drug Allergy Active ciprofloxacin Cipro Unknown Drug Allergy Act gilbert diazepam Diazepam Unknown Drug Allergy Active levofloxacin Levofloxacin Unknown Drug Allergy A ctive morphine Morphine Unknown Drug Allergy Active Results Component Value Reference Range Notes XR foot LT min 3V (Not yet r eviewed by provider) Interpretation: Performing Lab: Notes/Report: Source Facility: [place] [address] XRay Report Signed Patient: DAT REAL MR#: [id number] : 1960 Acct:[id number] Age/Sex: 64 / M ADM Date: 07/09/24 Loc: EC Attending Dr: Diego Turner D.P.M. Ordering Physician: Diego Turner D.P.M. Date of Service: 07/09/24 Procedure(s): XR foot LT min 3V Accession Number(s): [id number] cc: Sp Washington D.O.; Diego Turner D.P.M. [place] [address] Patient Name: DAT REAL MRN: [id number] date: 1960 Sex: M Assigned Patient Location: Current Patient Location: Accession/Order Number: [id number] Exam Date: 07/09/2024 10:51 Report Date: 07/11/2024 04:43 At the request of: DIEGO TURNER Procedure: XR foot LT min 3V PROCEDURE: XR ankle LT min 3V, XR foot LT min 3V HISTORY: LEFT ANKLE PAIN COMPARISON: None. FINDINGS: BONES:Prior fusion of the tibiotalar joint and the distal tibia-fibula syndesmosis via multiple lag screws. Prior ligament/tendon attachment via multiple bone anchors. Prior osteotomy of distal fibula diaphysis with posterior offset of distal fragment one full bone width; no osseous fusion. Marked degenerative changes of the posterior talocalcaneal joint. No significant degenerative joint disease of the midfoot and forefoot. No significant loss of plantar arch. SOFT TISSUES:No visible soft tissue swelling. EFFUSION:None visible. OTHER: Negative. XR/XR foot LT min 3V IMPRESSION: 1. Surgical changes as detailed above; no appreciable hardware failure or acute bone abnormality. No comparison studies. Electronically authenticated by: JACOBO PERALTA Date: 07/11/2024 04:43 Dictated By: Jacobo Peralta M.D. Signed By: 07/11/24444 DD/ 2 TD/TT: Pulp And Paper Tester: [place] [address] XRay Report Signed Patient: JAIRO REAL MR#: [id number] : 1960 Acct:[id number] Age/Sex: 64 / M ADM Date: 07/09/24 Loc: EC Attending Dr: Diego Turner D.P.M. Ordering Physician: Diego Turner D.P.M. Date of Service: 07/09/24 Procedure(s): XR foot LT min 3V Accession Number(s): [id number] cc: Sp Washington; Diego Turner D.P.M. [place] [address] Patient Name: DAT REAL MRN: [id number] date: 1960 Sex: M Assigned Patient Location: Current Patient Location: Accession/Order Numb er: [id number] Exam Date: 07/09/2024 10:51 Report Date: 07/11/2024 04:43 At the request of: DIEGO TURNER Procedure: XR foot LT min 3V PROCEDURE: XR ankle LT min 3V, XR foot LT min 3V HISTORY: LEFT ANKLE PAIN COMPARISON: None. FINDINGS: BONES:Prior fusion o f the tibiotalar joint and the distal tibia-fibula syndesmosis via mult iple lag screws. Prior ligament/tendon attachment via multiple bone anchor s. Prior osteotomy of distal fibula diaphysis with posterior offset of distal fragment one full bone width; no osseous fusion. Marked degenerative changes of the posterior talocalcaneal joint. No significant degenera tive joint disease of the midfoot and forefoot. No significant loss of plantar arch. SOFT TISSUES:No visi ble soft tissue swelling. EFFUSION:None visible. OTHER: Negative. X R/XR foot LT min 3V IMPRESSION: 1. Surgical changes as detailed above; no appreciable hardware failure or acute bone abnormality. No comparison studies. Electronically authe nticated by: JACOBO PERALTA Date: 07/11/2024 04:43 Dictated By: Jacobo Peralta M.D. Signed By: 07/11/24444 DD/ 2 TD/TT: Pulp And Paper Tester: XR ankle LT min 3V (Not yet reviewed by provider) Interpretation: Performing Lab: Notes/Report: Source Facility: [place] [address] [place] [address] XRay Report Signed Patient: DAT REAL MR#: [id number] : 1960 Acct:[id number] Age/Sex: 64 / M ADM Date: 07/09/24 Loc: EC Attending Dr: Diego Turner D.P.M. Ordering Physician: Diego Turner D.P.M. Date of Service: 07/09/24 Procedure(s): XR ankle LT min 3V Accession Number(s): [id number] cc: Sp Washington D.O.; Diego Turner D.P.M. The [address] [address] Patient Name: DAT REAL MRN: [id number] date: 1960 Sex: M Assigned Patient Location: Current Patient Location: Accession/Order Number: [id number] Exam Date: 07/09/2024 10:51 Report Date: 07/11/2024 04:43 At the request of: DIEGO TURNER Procedure: XR ankle LT min 3V PROCEDURE: XR ankle LT min 3V, XR foot LT min 3V HISTORY: LEFT ANKLE PAIN COMPARISON: None. FINDINGS: BONES:Prior fusion of the tibiotalar joint and the distal tibia-fibula syndesmosis via multiple lag screws. Prior ligament/tendon attachment via multiple bone anchors. Prior osteotomy of distal fibula diaphysis with posterior offset of distal fragment one full bone width; no osseous fusion. Marked degenerative changes of the posterior talocalcaneal joint. No significant degenerative joint disease of the midfoot and forefoot. No significant loss of plantar arch. SOFT TISSUES:No visible soft tissue swelling. EFFUSION:None visible. OTHER: Negative. XR/XR ankle LT min 3V IMPRESSION: 1. Surgical changes as detailed above; no appreciable hardware failure or acute bone abnormality. No comparison studies. Electronically authenticated by: JACOBO PERALTA Date: 07/11/2024 04:43 Dictated By: Jacobo Peralta M.D. Signed By: 07/11/24444 DD/ 2 TD/TT: Pulp And Paper Tester: [place] [address] XRay Report Signed Patient: JAIRO REAL MR#: [id number] : 1960 Acct:[id number] Age/Sex: 64 / M ADM Date: 07/09/24 Loc: EC Attending Dr: Diego Turner D.P.M. Ordering Physician: Diego Turner D.P.M. Date of Service: 07/09/24 Procedure(s): XR ank le LT min 3V Accession Number(s): [id number] cc: Sp [place]; Diego Turner D.P.M. The [place] [address] Patient Name: DAT REAL MRN: [id number] date: 1960 Sex: M Assigned Patient Location: Current Patient Location: Accession/Order Numb er: [id number] Exam Date: 07/09/2024 10:51 Report Date: 07/11/2024 04:43 At the request of: DIEGO TURNER Procedure: XR ankle LT min 3V PROCEDURE: XR ankle LT min 3V, XR foot LT min 3V HISTORY: LEFT ANKLE PAIN COMPARISON: None. FINDINGS: BONES:Prior fusion o f the tibiotalar joint and the distal tibia-fibula syndesmosis via mult iple lag screws. Prior ligament/tendon attachment via multiple bone anchor s. Prior osteotomy of distal fibula diaphysis with posterior offset of distal fragment one full bone width; no osseous fusion. Marked degenerative changes of the posterior talocalcaneal joint. No significant degenera tive joint disease of the midfoot and forefoot. No significant loss of plantar arch. SOFT TISSUES:No visi ble soft tissue swelling. EFFUSION:None visible. OTHER: Negative. X R/XR ankle LT min 3V IMPRESSION: 1. Surgical changes as detailed above; no appreciable hardware failure or acute bone abnormality. No comparison studies. Electronically authe nticated by: JACOBO PERALTA Date: 07/11/2024 04:43 Dictated By: Jacobo Peralta M.D. Signed By: 07/11/24444 DD/ 2 TD/TT: Pulp And Paper Tester: CT ANKLE LT WO CON (Not yet reviewed by provider) Interpretation: Performing Lab: Notes/Report: Source Facility: [facility] [place] [address] [place] [address] CT Scan Report Signed Patient: DAT REAL MR#: [id number] : 1960 Acct:[id number] Age/Sex: 64 / M ADM Date: 07/25/24 Loc: CT Attending Dr: Diego Turner D.P.M. Ordering Physician: Diego Turner D.P.M. Date of Service: 07/25/24 Procedure(s): CT ankle LT wo con Accession Number(s): [id number] cc: Sp Washington D.O. The [address] [address] Patient Name: DAT REAL MRN: [id number] date: 1960 Sex: M Assigned Patient Location: CT Current Patient Location: Accession/Order Number: [id number] Exam Date: 07/25/2024 13:50 Report Date: 07/26/2024 07:31 At the request of: DIEGO TURNER Procedure: CT ankle LT wo con EXAMINATION: CT ankle LT wo con HISTORY: Degenerative Joint Disease COMPARISON: XR left ankle 07/09/2024 TECHNIQUE: Multi-planar CT images were created without and/or with IV contrast according to examination type. Dose reduction techniques were achieved by using automated exposure control and/or adjustment of mA and/or kV according to patient size and/or use of iterative reconstruction technique. FINDINGS: BONES: Osseous and mechanical fusion of the tibiotalar joint via multiple lag screws; no appreciable hardware fracture or loosening. [id number] articulation of the posterior talocalcaneal joint. Osseous and mechanical fusion of the distal fibula to the tibia with the most distal screw extending into the posterior talocalcaneal joint. Prior osteotomy of the distal fibula 8.1 cm cephalad to the its distal tip with posterior offset of the distal fragment approximately 50% of the bone thickness; no visible osseous fusion at site of osteotomy. SOFT TISSUES: Negative. No visible soft tissue swelling. EFFUSION: None visible. OTHER: Negative. CT/CT ankle LT wo con IMPRESSION: 1. Surgical changes as detailed above. 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 2. No appreciable acute abnormality. No prior studies for comparison other than the recent left ankle radiograph. Electronically authenticated by: JACOBO PERALTA Date: 07/26/2024 07:31 Dictated By: Jacobo Peralta M.D. Signed By: 07/26/2434 DD/ 0 TD/TT: Pulp And Paper Tester: The [address] [address] [address] Scan Report Signed Patient: JAIRO REAL MR#: [id number] : 1960 Acct:[id number] Age/Sex: 64 / M ADM Date: 07/25/24 Loc: CT Attending Dr: Diego Turner D.P.M. Ordering Physician: Diego Turner D.P.M. Date of Service: 07/25/24 Procedure(s): CT ank le LT wo con Accession Number(s): [id number] cc: Sp Washington D.O. [place] [id number] Patient Name: DAT REAL MRN: [id number] date: 1960 Sex: M Assigned Patient Location: CT Current Patient Location: Accession/Order Numb er: [id number] Exam Date: 07/25/2024 13:50 Report Date: 07/26/2024 07:31 At the request of: DIEGO TURNER Procedure: CT ankle LT wo con EXAMINATION: CT ankle LT wo con HISTORY: Degenerativ e Joint Disease COMPARISON: XR left ankle 07/09/2024 TECHNIQUE: Multi-kelvin ejffery CT images were created without and/or with IV contrast according to examina tion type. Dose reduction techniques were achieved by using automated exposure c ontrol and/or adjustment of mA and/or kV according to patient size and/or use of iterative reconstruction technique. FINDINGS: BONES: Osseous and m echanical fusion of the tibiotalar joint via multiple lag screws; no appreciab le hardware fracture or loosening. Jisl-[id number] articulation of the posterior talocalcaneal joint. Osseous and mechanical fusion of the distal fibula to the tibia with the most distal screw extending into the posterior talocalcaneal joint. Prior osteotomy of the distal fibula 8.1 cm cephalad to t he its distal tip with posterior offset of the distal fragment approximate ly 50% of the bone thickness; no visible osseous fusion at site of osteotomy. SOFT TISSUES: Negati ve. No visible soft tissue swelling. EFFUSION: None visible. OTHER: Negative. C T/CT ankle LT wo con IMPRESSION: 1. Surgical changes as detailed above. Note is made of marked degenerative joint disease of the posterior talocalcaneal joints with one of the lateral screws extending int o the joint space. 2. No appreciable ac [place] abnormality. No prior studies for comparison other than the recent left ankl e radiograph. Electronically authe nticated by: JACOBO PERALTA Date: 07/26/2024 07:31 Dictated By: Jacobo Peralta M.D. Signed By: 07/26/24733 DD/ 0 TD/TT: Pulp And Paper Tester: Reason For Referral No Information Medications Medication SIG (Take, Route, Frequency, Duration) Notes Start Date End Date Status Metoprolol Succinate ER 50 MG Oral for 90 Days Active metFORMIN HCl 1000 MG Oral for 90 Days Active Losartan Potassium 50 MG Oral for 90 Days Active hydroCHLOROthiazide 25 MG TAKE 1 TABLET BY MOUTH EVERY DAY Oral for 30 Days Unknown Lantus SoloStar 100 UNIT/ML INJECT 50 UN ITS SUBCUTANEOUSLY DAILY Subcutaneous for 90 Days Active hydroCHLOROthiazide 25 MG Oral for 30 Days Unknown Losartan Potassium 50 MG TAKE 1 TABLET B Y MOUTH TWICE A DAY Oral for 30 Days Active Klor-Con/EF 25 MEQ Oral for 90 Days Unknown Losartan Potassium 100 MG Oral for 90 Days Active Klor-Con/EF 25 MEQ DISSOLVE 1 TABLET IN LIQUID AND TAKE BY MOUTH TWICE A DAY Oral for 90 Days Unknown hydrALAZINE HCl 10 MG TAKE 1 TABLET BY M OUTH TWICE A DAY Oral for 30 Days Active Ciprofloxacin HCl 500 MG Oral for 14 Days Unknown Gabapentin 100 MG Oral for 90 Days Active Ciprofloxacin HCl 500 MG TAKE 1 TABLET B Y MOUTH EVERY 12 HOURS FOR 14 DAYS Oral for 14 Days Unknown Lantus SoloStar 100 UNIT/ML Subcutaneous for 90 Days Active Fiasp FlexTouch 100 UNIT/ML Subcutaneous for 90 Days Unknown hydrALAZINE HCl 10 MG Oral for 30 Days Active Fiasp FlexTouch 100 UNIT/ML INJECT 10 UN ITS SUBCUTANEOUSLY BEFORE MEALS 3 TIMES A DAY Subcutaneous for 90 Days Unknown Vardenafil HCl 10 MG TAKE 1 TABLET BY MO UTH ONCE A DAY NEEDED FOR SEXUAL ACTIVITY Oral for 30 Days Active Vardenafil HCl 10 MG Oral for 30 Days Active cloNIDine HCl 0.1 MG TAKE 1 TABLET TWICE DAILY FOR 30 DAYS Oral for 30 Days Active cloNIDine HCl 0.1 MG Oral for 30 Days Active Sertraline HCl 100 MG Oral for 90 Days Active Gabapentin 100 MG Oral for 90 Days Active BD Pen Needle Mini U/F 31G X 5 MM USE DIRECTED 4 TIMES DAILY for 90 Days Active Ozempic (0.25 or 0.5 MG/DOSE) 2 MG/3ML Subcutaneous for 28 Days Active BD Pen Needle Mini U/F 31G X 5 MM for 90 Days Active Ozempic (0.25 or 0.5 MG/DOSE) 2 MG/3ML INJECT 0.5 MG SUBCUTANEOUSLY ONCE A WEEK FOR 28 DAYS Subcutaneous for 28 Days Active Carvedilol 6.25 MG TAKE 1 TABLET ORALLY EVERY 12 HOURS FOR 30 DAYS MUST ADMINISTER WITH A MEAL/FOOD Oral for 30 Days Active Pravastatin Sodium 40 MG Oral for 90 Days Active Carvedilol 6.25 MG Oral for 90 Days Active Ozempic [...] 5 MG Oral for 90 Days Active NovoLOG FlexPen 100 UNIT/ML INJECT 18 UN ITS SUBCUTANEOUSLY BEFORE EACH MEAL 3 TIMES A DAY Subcutaneous for 56 Days Active Mounjaro 5 MG/0.5ML INJECT 5 MG (0.5 ML) SUBCUTANEOUSLY EVERY WEEK FOR 28 DAYS Subcutaneous for 28 Days Active Ozempic (0.25 or 0.5 MG/DOSE) 2 MG/3ML Subcutaneous for 28 Days Unknown Mounjaro 2.5 MG/0.5ML Subcutaneous for 2 8 Days Active Ozempic (0.25 or 0.5 MG/DOSE) 2 MG/3ML INJECT 0.5 MG SUBCUTANEOUSLY ONCE A WEEK FOR 28 DAYS Subcutaneous for 28 Days Unknown Ozempic (0.25 or 0.5 MG/DOSE) 2 MG/3ML Subcutaneous for 28 Days Unknown Social History Tobacco Use: Social History Observation Description Date Details (start date - stop date) Never Smoker NA - NA Tobacco Control (Standard) Question Answer Notes Tobacco use: Nonsmoker Problems Problem Type SNOMED Code ICD Code Onset Dates Problem Status W/U Status Risk Notes Problem [id number] Primary osteoarthritis , left ankle and foot (M19.072) Active confirmed Problem Arthralgia of the ankle and/or foot (668254128) Pain in left ankle and joints of left foot (M25.572) Active confirmed Problem 171922311 Presence of functional implant, unspecified (Z96.9) Active confirmed Vital Signs Heart Rate 88 /min 07/29/2024 Temperature 97.8 degrees Fahrenheit 07/29/2024 Respiratory Rate 18 /min 07/09/2024 Height 70 in 07/29/2024 Weight 228 lbs 07/29/2024 BMI 32.71 kg/m2 07/29/2024 Encounters Encounter Location Date Provider Diagnosis [facility] (PODIAT[facility]) [address] [place] [address] [place] [address] 07/29/2024 Diego Turner Pain due to internal orthopedic prosthetic devices, implants and grafts, initial encounter T84.84XA and Primary osteoarthritis, left ankle and foot M19.072 [facility] (PODIATRY) [address] [place] [address] [place] [address] 07/09/2024 Diego Turner Primary osteoarthritis, left ankle and foot M19.072 [...] his pain is only worsened despite multiple yfya-lwc-kltchha braces as well as a custom AFO. 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 [employer] 07/29/2024 Primary osteoarthritis, left ankle and foot (ICD-10 - M19.072) 07/09/2024 Pain due to internal orthopedic prosthetic devices, implants and grafts, initial encounter (ICD-10 - T84.84XA) 07/09/2024 Pain in left ankle and joints of left foot (ICD-10 - M25.572) Plan Of Treatment Pending Test Test Name Order Date XR Ankle LT (3 views) * (164) 07/09/2024 XR Foot LT (3 views) * 07/09/2024 CT Ankle LT w/o contrast * (Optional 3D Rendering) 07/09/2024 CT ANKLE LT WO CON 07/26/2024 XR foot LT min 3V 07/11/2024 XR ankle LT min 3V 07/11/2024 Insurance Providers Payer Name Payer Address Payer Phone Subscriber Number Group Number Insured Name Patient Relationship to Insured Coverage Start Date Coverage End Date [facility] [address] [place], [place] [id number] Dat Real Self - patient is the insured MEDIC[place] [address] [place] [address] [id number] Dat Real Self - patient is the insured Medical (General) History Medical History History ICD Code Arthritis bladder cancer diabetes hypertension gastroesophageal reflux disease (GERD) hypercholesterolemia ulcers right femor bone tumor POTS Surgical History Surgery Date(Month/Year) right femor reconstruction 2001 Dr Rayo marrero left ankle reconstruction , 1995, 1997, (1998 left ankle fusion) Dr Bonilla Prostate polypectomy kidney lithotripsy Hospitalization History Reason Date(Month/Year) see above
--- OUTSIDE RECORDS SUMMARY | 2025-04-22 12:45 | XMS_ITS | Clinical Summary ---
Author Organization [facility] Address [address] [place] [address] Phone Care Team Providers Care Sport Intern Name Role Phone Unavailable Primary Care Provider Unavailabl e Social History Tobacco Use Types Packs/Day Years Used Date Smoking Tobacco: Never Assessed Sex and Gender Information Value Date Recorded Sex Assigned at Not on file Legal Sex Male 1:12 PM EST Gender Identity Not on file Sexual Orientation Not on file Plan of Treatment Not on file
--- OUTSIDE RECORDS SUMMARY | 2025-04-22 12:45 | XMS_ITS | Clinical Summary ---
[facility] Organization [facility] Address [address] [place] [address] Care Team Providers Care Physical Security Specialist Name Role Phone Sp Washington DO Primary Care Provider [phone] Allergies Active Allergy Reactions Criticality Noted Date Comments Exenatide Nausea And Vomiting Low 02/26/2017 Diazepam Other (See Comments) ,Nausea And Vomiting Low 11/06/2014 Pioglitazone 12/19/2016 Medications amLODIPine (NORVASC) 2.5 MG tablet 6 Active losartan (COZAAR) 100 MG tablet Take 100 mg by mouth Active pravastatin (PRAVACHOL) 40 MG tablet pravastatin 40 mg tablet Active morphine (MS CONTIN) 15 MG extended release tablet TAKE 1 TABLET BY MOUTH EVERY 12 HOURS 0 8 Active sertraline (ZOLOFT) 100 MG tablet sertraline 100 mg tablet Active gabapentin (NEURONTIN) 100 MG capsule Take 100 mg by mouth.. Active insulin lispro (HUMALOG KWIKPEN) 100 UNIT/ML pen Humalog KwikPen (U-100) Insulin 100 unit/mL subcutaneous Active Multiple Vitamins-Minera ls (MULTIVITAMIN ADULT EXTRA C PO) multivitamin Active pyridostigmine (MESTINON) 60 MG tablet Take 60 mg by mouth Active metFORMIN (GLUCOPHAGE) 1000 MG tablet metformin 1,000 mg tablet Take 1 tablet twice a day by oral route. Active insulin glargine (LANTUS) 100 UNIT/ML injection vial Lantus U-100 Insulin 100 unit/mL subcutaneous solution Inject 35 units twice a day by subcutaneous route. Active Insulin Glargine (TOUJEO MAX SOLOSTAR SC) Inject into the skin Active metoprolol tartrate (LOPRESSOR) 50 MG tablet Take 50 mg by mouth 2 times daily Active tadalafil (CIALIS) 5 MG tabletIndicatio ns:Prostate cancer (HCC) Take 1 tablet by mouth daily 90 tablet 3 9 Active Active Problems No known active problems Social History Tobacco Use Types Packs/Day Years Used Date Smoking Tobacco: Never Smokeless Tobacco: Never Alcohol Use Standard Drinks/Week Comments No 0 (1 standard drink = 0.6 oz pur e alcohol) Sex and Gender Information Value Date Recorded Sex Assigned at Not on file Legal Sex Male 10:05 AM EST Gender Identity Not on file Sexual Orientation Not on file Last Filed Vital Signs Vital Sign Reading Time Taken Comments Blood Pressure 138/80 05/28/2019 1:01 PM EDT Pulse 74 05/28/2019 1:01 PM EDT Temperature - - Respiratory Rate - - Oxygen Saturation - - Inhaled Oxygen Concentration - - Weight 108.9 kg (240 lb) 05/28/2019 1:01 PM EDT Height 177.8 cm (5' 10 ) 05/28/2019 1:01 PM EDT Body Mass Index 34.44 05/28/2019 1:01 PM EDT Plan of Treatment Not on file Insurance HUM[employer] Care Teams Physical Security Specialist Relationship Specialty Start Date End Date Sp Washington DO PCP - General Internal Medicine 11/28/18
--- OUTSIDE RECORDS SUMMARY | 2025-04-22 12:45 | XMS_ITS | Clinical Summary ---
Author Organization [employer] [facility] tem Address [id number] [address] [place] [address] Care Team Providers Care Laboratory Helper Name Role Phone Sp Washington Primary Care Provider [phone] Allergies Active Allergy Reactions Criticality Noted Date Comments Pioglitazone 12/19/2016 Exenatide 12/19/2016 Diazepam 12/19/2016 Medications sertraline (ZOLOFT) 100 mg tablet 10/04/2016 Active morphine (MS CONTIN) 15 mg 12 hr tablet TAKE 1 TABLET BY MOUTH EVERY 12 HOURS around the clock 0 11/18/2016 Active metFORMIN (GLUCOPHAGE) 1000 mg tablet 10/02/2016 Acti ve HUMALOG KWIKPEN 100 unit/mL insulin pen 12/02/2016 Active amLODIPine (NORVASC) 2.5 mg tablet 10/04/2016 Active losartan (COZAAR) 50 mg tablet Take 50 mg by mouth daily. Active pyridostigmine (MESTINON) 60 mg tablet Take 60 mg by mouth 3 (three) times a day. Active INSULIN GLARGINE,HUM.REC .ANLOG (TOUJEO SOLOSTAR SUBQ) Inject under the skin. Active pravastatin (PRAVACHOL) 40 mg tablet Take 40 mg by mouth. Active gabapentin (NEURONTIN) 100 mg capsule Take 100 mg by mouth. Active tadalafil (CIALIS) 5 mg tablet Take 1 tablet (5 mg total) by mouth daily. 30 tablet 11 03/23/2017 Active Active Problems Problem Noted Date Diagnosed Date Malignant neoplasm of urinary bladder 12/19/2016 Overview (12/19/2016): TA TCC a May 2006 Benign non-nodular prostatic hyperplasia with lower urinary tract symptoms 12/19/2016 Overview (03/23/2017): Lower urinary tract symptoms improvement with daily dose Cialis. Cannot use alpha blockers due to neurocardiogenic syncope Samples given. Plan to send letter of appeal to insurance company Elevated PSA 12/19/2016 Overview (03/23/2017): Elevated PSA with biopsy in 2010 benign (PSA 4.8) 3T MRI showing 2 separate lesions on right and left PI Rads 3; PSA 8.9 in 2017 Biopsy 03/05 ([facility]) showing benign lesion on right, left with SARA I explained to the patient that with SARA approximately 1/2 the patients will have an underlying carcinoma with repeat biopsy. With that said this is typically recommended to do when SARA is seen on the initial biopsy without MRI. Given no other suspicious lesions seen I told him we could recheck his PSA in 4-5 months and determine from there whether not repeat biopsy would be necessary. Family History Medical History Relation Name Comments COPD Father Cancer Father prostate Cancer Mother ovarian cancer Relation Name Status Comments Father Mother Social History Tobacco Use Types Packs/Day Years Used Date Smoking Tobacco: Never Childcare Answer Date Recorded Childcare Unknown 04/30/2019 Employment Answer Date Recorded Employment Unknown 04/30/2019 Purpose - Life Answer Date Recorded Purpose and direction in life Unknown Sex and Gender Information Value Date Recorded Sex Assigned at Not on file Legal Sex Male 11:47 AM EDT Gender Identity Not on file Sexual Orientation Not on file Last Filed Vital Signs Vital Sign Reading Time Taken Comments Blood Pressure 157/57 03/23/2017 4:05 PM EDT Pulse 82 03/23/2017 4:05 PM EDT Temperature - - Respiratory Rate - - Oxygen Saturation - - Inhaled Oxygen Concentration - - Weight 105.2 kg (232 lb) 03/23/2017 4:05 PM EDT Height 177.8 cm (5' 10 ) 03/23/2017 4:05 PM EDT Body Mass Index 33.29 03/23/2017 4:05 PM EDT Plan of Treatment Health Maintenance Due Date Last Done Comments Depression Screening 1974 Tobacco Screening 1974 Adult BMI Screening 02/22/1980 DTaP,Tdap and Td Vaccines (1 - Tdap) 1981 Zoster (Shingles) Vaccine (1 of 2) 1981 Influenza Vaccine 07/20/2025 Medical Devices Not on file Insurance MEDICARE [facility] Care Teams Laboratory Helper Relationship Specialty [place] [address] [place], [place] [id number] PCP - General 12/19/16
--- OUTSIDE RECORDS SUMMARY | 2025-04-22 12:46 | XMS_ITS | Encounter Summary ---
[facility] Address [id number] [address] [place] [address] Care Team Providers Care Jewel Hole Driller Name Role Phone Sp Washington DO Primary Care Provider Encounter Details Date Type Department Care Team (Late st Contact Info) Description 04/03/2017 Documentation [facility] [address] [place] [address] Tiara Ray RMA Social History Tobacco Use Types Packs/Day Years Used Date Smoking Tobacco: Never Sex and Gender Information Value Date Recorded Sex Assigned at Not on file Legal Sex Male 11:47 AM EDT Gender Identity Not on file Sexual Orientation Not on file documented as of this encounter Plan of Treatment Not on file documented as of this encounter Visit Diagnoses Not on filedocumented in this encounter Care Teams Jewel Hole Driller Relationship Specialty Start Date End Date Sp Washington DO [address] [place], [place] [id number] PCP - General 12/19/16 documented as of this encounter
--- OUTSIDE RECORDS SUMMARY | 2025-04-22 12:46 | XMS_ITS | Clinical Summary ---
Author Organization [facility] Address [address] [place] [address] Care Team Providers Care Music Professor Name Role Phone Sp Washington DO Primary Care Provider [phone] Allergies Active Allergy Reactions Criticality Noted Date Comments Pioglitazone Swelling 11/18/2019 Petechiae Exenatide Vomiting Low 12/19/2016 Other reaction(s): Nausea And Vomiting Diazepam GI Upset 11/18/2019 Medications metFORMIN (GLUCOPHAGE) 1,000 mg tablet Take 1,000 mg by mouth twice daily. 7 Active pravastatin (PRAVACHOL) 40 mg tablet Take 40 mg by mouth once daily. Active metoprolol succinate ER (TOPROL XL) 50 mg 24 hr tablet Take 50 mg by mouth once daily. Active gabapentin (NEURONTIN) 100 mg capsule Take 100 mg by mouth three times daily. Active sertraline (ZOLOFT) 100 mg tablet Take 100 mg by mouth once daily. Active losartan (COZAAR) 100 mg tablet Take 100 mg by mouth once daily. Active BASAGLAR KWIKPEN U-100 INSULIN 100 unit/mL (3 mL) INJECT 50 UNITS SUBCUTANEOUSLY ONCE A DAY 2 Active coenzyme Q10 (COENZYME Q-10) 100 mg cap capsule Take 100 mg by mouth once daily. Active multivitamin (MULTI-DAY ORAL) Take by mouth. Activ e melatonin 10 mg tab Take 20 mg by mouth. Active NOVOLOG FLEXPEN U-100 INSULIN 100 unit/mL (3 mL) Inject 18 Units subcutaneously as directed. 2 Active solifenacin 10 mg tablet 2 Active amLODIPine (NORVASC) 5 mg tablet Take 5 mg by mouth once daily. 2 Active Tadalafil (CIALIS) 20 mg tab(s) Take 10 mg by mouth once daily. Patient takes 0.5 tablet once a day 2 Active Active Problems Problem Noted Date Diagnosed Date Kidney stone on left side 09/12/2022 Left ureteral stone 09/12/2022 Hyperkalemia 09/12/2022 KUNAL (obstructive sleep apnea) 08/28/2022 BMI 34.0-34.9,adult 08/28/2022 Bladder cancer 08/24/2022 Hypertension 08/24/2022 Hyperlipidemia 08/24/2022 Type 2 diabetes mellitus wit hout complication, with long-term current use of insulin 08/24/2022 POTS (postural orthostatic tachycardia syndrome) 08/24/2022 BPH (benign prostatic hyperplasia) Family History Medical History Relation Comments Prostate Cancer Father atrial fibrillation Father Diabetes Mother Ovarian cancer Mother Breast Cancer Sister Relation Status Comments Father Mother Sister Social History Tobacco Use Types Packs/Day Years Used Date Smoking Tobacco: Never Passive Smoke Exposure: Past Smokeless Tobacco: Never Tobacco Cessation:Counseling Given: Not Answered Alcohol Use Standard Drinks/Week Comments Not Currently 0 (1 standard drink = 0.6 oz pur e alcohol) Area Deprivation Index Answer Date Lenny rded National Score (1-100), lower number is lower ri sk 70 12/16/2022 State Score (1-10), lower number is lower risk N ot on file 12/16/2022 Data from: https://www.neighborhoodatlas.medicine.[facility].edu/. Last address used for calculation [address] 12/16/2022 Sex and Gender Information Value Date Recorded Sex Assigned at Not on file Legal Sex Male 12:17 PM EST Gender Identity Not on file Sexual Orientation Not on file Last Filed Vital Signs Vital Sign Reading Time Taken Comments Blood Pressure 183/86 09/12/2022 3:13 PM EDT Pulse 78 09/12/2022 3:13 PM EDT Temperature 36.8 C (98.2 F) 09/12/2022 3:13 PM EDT Respiratory Rate 18 09/12/2022 3:13 PM EDT Oxygen Saturation 97% 09/12/2022 3:13 PM EDT Inhaled Oxygen Concentration - - Weight 105.2 kg (232 lb) 08/28/2022 9:16 AM EDT Height 175.3 cm (5' 9 ) 08/28/2022 9:16 AM EDT Body Mass Index 34.26 08/28/2022 9:16 AM EDT Plan of Treatment Health Maintenance Due Date Last Done Comments Diabetic Foot Exam 02/22/1972 Dilated Retinal Exam 02/22/1972 Urine Albumin:Creatinine Ratio 02/22/1972 Annual PCP Team Chronic Dise ase Visit 02/22/1980 Anxiety Screening 02/22/1980 BP Controlled (<130/80) 02/22/1980 Depression Screening 02/22/1980 HIV Screening 02/22/1980 Hepatitis C Screening 02/22/1980 LDL Cholesterol 02/22/1980 Pneumococcal Vaccine: 50+ (1 of 2 - PCV) 1981 DTaP,Tdap,Td Vaccine (1 - Tdap) 10/03/[address] Colonography 2007 Cologuard (FIT-DNA) 2007 Colonoscopy 2007 Colorectal Cancer Screening 2007 Fecal Occult Blood 2007 Sigmoidoscopy 2007 Shingrix Vaccine (1 of 2) 02/22/2012 RSV Vaccine (1 - Risk 60-74 years 1-dose series) 2022 HbA1C 02/26/2023 08/28/2022 Covid-19 Vaccine (7 - 2023-2 5 season) 2024 08/13/2022, 10/23/2021, 04/15/2021, Additional history exists Influenza Vaccine (Season Ended) 2025 07/26/2022, 08/10/2021, 08/26/2018, Additional history exists Prostate Cancer Screening Discussion 02/18/2027 02/18/2022 Medical Devices Implanted Type Area Tobacco Sprayer Device Identifier Shelf Expiration Date Model / Serial / Lot Stent Inlay Peak [id number] 26cm Implanted:Qty : 1 on 09/11/2022 at [facility] Urologic Stents Left: Ureter [employer] 05/11/2026 [id number] / / [id number] Procedures Procedure Name Priority Date/Time Associated Diagnosis Comments HEMOGLOBIN A1C Routine 08/28/2022 7:23 AM EDT Pre-op evaluation Type 2 diabetes mellitus without complication, with long-term current use of insulin (HCC) from Last 3 Months or Most Recently Relevant to Health Maintenance Results * (ABNORMAL) HGB A1C (08/28/2022 7:23 AM EDT) Hemoglobin A1C 6.2(H) 4.3 - 5.6 % 08/28/2022 8:32 PM EDT [facility] Comment:[place] Diabetes As sociation guidelines indicate that patients with HgbA1c in the range 5.7-6.4% are at increased risk for development of diabetes, and intervention by lifestyle modification may be beneficial. HgbA1c greater or equal to 6.5% is considered diagnostic of diabetes. Estimated Average Glucose 131 mg/dL 08/28/2022 8:32 PM EDT [facility] Comment:eAG: (Estimated aver age glucose) is a calculated value from HgbA1c and is workforce services representative of the average blood glucose level in the last 2-3 month period. Blood BLOOD SPECIMEN / Unknown Venipuncture / Unknown 08/28/2022 7:23 AM EDT 08/28/2022 9:57 AM EDT us Mechelle Burnett PA-C LABORATORY Final Res ult [facility] [address] [id number], from Last 3 Months or Most Recently Relevant to Health Maintenance Insurance [facility] CHOICE PLUS MEDICARE Care Teams Music Professor Relationship Specialty Start Date End Date Sp Washington DO [address] [place] [address] PCP - General Internal Medicine 09/07/22
--- NOTE | 2025-04-22 13:02 | XR_ITS ---
The [address] [address] Patient Name: DAT LOPEZ MRN: [id number] date: 1960 Sex: M Assigned Patient Location: [facility] Current Patient Location: [facility] Accession/Order Number: [id number] Exam Date: 04/22/2025 13:14 Report Date: 04/22/2025 13:16 At the request of: HERB CHOWDARY DO Procedure: XR hip LT 2V w/ pelvis LEFT HIP WITH AP PELVIS - 3 views COMPARISON: 12/14/2022 CLINICAL DATA: Left hip pain since fall off a deck last February AP view of the pelvis as well as AP and frog-lateral views of the left hip were obtained. No fracture or dislocation is identified. The hip joint spaces are symmetric. There is minimal degenerative change. The SI joints are intact and show mild sclerosis. There is also degenerative change involving the lower imaged lumbar spine. No soft tissue abnormalities are present. XR/XR hip LT 2V w/ pelvis IMPRESSION: MILD DEGENERATIVE CHANGES. NO ACUTE BONY FINDINGS. Impression dictated by: Iona Irvin M.D. 04/22/2025 1:16 PM Dictation Location: [place] [address] Electronically authenticated by: [id number] Y Date: 04/22/2025 13:16
== END 2025-04-22 12:39 | disposition home or self-care (01) ==
LOC: RAD 12:40
PROVIDERS: PCP Internal Medicine; Visit Provider Internal Medicine
DX: M25.552 Pain in left hip (principal)
CPT/HCPCS: 73502

== ENCOUNTER 2025-05-11 14:54 | Outpatient (OUT) | payer MEDICARE, OTHER, SELFPAY ==
--- OUTSIDE RECORDS SUMMARY | 2025-05-11 14:57 | XMS_ITS | Clinical Summary ---
Author Organization [facility] Address [address] [place] [address] Care Team Providers Care Tire Trucker Name Role Phone Sp Washington DO Primary Care Provider [phone] Allergies Active Allergy Reactions Criticality Noted Date [...] Not on file Insurance [employer] Care Teams Tire Trucker Relationship Specialty Start Date End Date Sp Washington DO PCP - General Internal Medicine 11/28/18
--- OUTSIDE RECORDS SUMMARY | 2025-05-11 14:57 | XMS_ITS | Clinical Summary ---
Author Organization [employer] [facility] tem Address [id number] [address] [place] [address] Care Team Providers Care Tire Shop Manager Name Role Phone Sp Washington Primary Care Provider [phone] Allergies Active Allergy Reactions Criticality Noted Date [...] 3; PSA 8.9 in 2017 Biopsy 03/05 ([facility]) showing benign lesion on right, left [...] Medical Devices Not on file Insurance MEDICARE [facility] Care Teams Tire Shop Manager Relationship Specialty [place] [address] [place], [place] [phone] PCP - General 12/19/16
--- OUTSIDE RECORDS SUMMARY | 2025-05-11 14:58 | XMS_ITS | Clinical Summary ---
Author Organization [facility] Address [address] [place] [address] Phone Care Team Providers Care Mash Grinder Name Role Phone Unavailable Primary Care Provider [...]
--- OUTSIDE RECORDS SUMMARY | 2025-05-11 14:59 | XMS_ITS | Encounter Summary ---
Author Organization [facility] Address [id number] [address] [place] [address] Care Team Providers Care Fire Fighter Name Role Phone Sp Washington DO Primary Care Provider [phone] Encounter Details Date Type Department Care Team (Late st Contact Info) Description 04/03/2017 Documentation [facility] [address] [place] [address] Tiara Ray RMA Social History [...] on filedocumented in this encounter Care Teams Fire Fighter Relationship Specialty Start Date End Date Sp Washington DO [address] [place], [place] [phone] PCP - General 12/19/16 documented as of this encounter
--- OUTSIDE RECORDS SUMMARY | 2025-05-11 15:00 | XMS_ITS | Clinical Summary ---
Author Organization [facility] Address [address] [place] [address] Care Team Providers Care Information Developer Name Role Phone Sp Washington DO Primary Care Provider [phone] Allergies Active Allergy Reactions Criticality Noted Date [...] N ot on file 12/16/2022 Data from: https://www.neighborhoodatlas.medicine.[facility].edu/. Last address used for calculation [address] [...] Dise ase Visit 02/22/1980 Anxiety Screening 02/22/1980 Depression Screening 02/22/1980 HIV Screening 02/22/1980 Hepatitis C Screening 02/22/1980 LDL Cholesterol 02/22/1980 Pneumococcal Vaccine: 50+ (1 of 2 - PCV) 1981 Medicare Annual Wellness Visit 07/20/2001 DTaP,Tdap,Td Vaccine (1 - Tdap) 10/03/2001 CT Colonography 2007 Cologuard (FIT-DNA) 2007 Colonoscopy 2007 Colorectal Cancer Screening 2007 Fecal Occult Blood 2007 Sigmoidoscopy 2007 Shingrix Vaccine (1 of 2) 02/22/2012 RSV Vaccine (1 - Risk 60-74 years 1-dose series) 2022 HbA1C 02/26/2023 08/28/2022 Covid-19 Vaccine (2023-2 5 season) 2024 08/13/2022, 10/23/2021, 04/15/2021, Additional history exists Influenza Vaccine (Season Ended) 2025 07/26/2022, 08/10/2021, 08/26/2018, Additional history exists Prostate Cancer Screening Discussion 02/18/2027 02/18/2022 Medical Devices Implanted Type Area Phytochemistry Professor Device Identifier Shelf Expiration Date Model / Serial / Lot Stent Inlay [place] [id number] 26cm Implanted:Qty : 1 on 09/11/2022 at [facility] Urologic Stents Left: U[employer]ter [employer] 05/11/2026 [id number] / / [id number] Procedures Procedure Name Priority Date/Time Associated Diagnosis Comments HEMOGLOBIN A1C Routine 08/28/2022 7:23 AM EDT Pre-op evaluation Type 2 diabetes mellitus without complication, with long-term current use of insulin (HCC) from Last 3 Months or Most Recently Relevant to Health Maintenance Results * (ABNORMAL) HGB A1C (08/28/2022 7:23 AM EDT) Hemoglobin A1C 6.2(H) 4.3 - 5.6 % 08/28/2022 8:32 PM EDT [facility] Comment:[place] Diabetes As sociation guidelines indicate that patients with HgbA1c in the range 5.7-6.4% are at increased risk for development of diabetes, and intervention by lifestyle modification may be beneficial. HgbA1c greater or equal to 6.5% is considered diagnostic of diabetes. Estimated Average Glucose 131 mg/dL 08/28/2022 8:32 PM EDT [facility] Comment:eAG: (Estimated aver age glucose) is a calculated value from HgbA1c and is sales representative groceries of the average blood glucose level in the last 2-3 month period. Blood BLOOD SPECIMEN / Unknown Venipuncture / Unknown 08/28/2022 7:23 AM EDT 08/28/2022 9:57 AM EDT us Mechelle Burnett PA-C LABORATORY Final Res ult [facility] [address] [place] [address], from Last 3 Months or Most Recently Relevant to Health Maintenance Insurance CHOICE PLUS MEDICARE Care Teams Information Developer Relationship Specialty Start Date End Date Sp Washington DO [address] [place] [address] PCP - General Internal Medicine 09/07/22
[2025-05-12 04:14] LABS: PSA, Free 3.69 ng/mL; Prostate Specific Ag 20.9 ng/mL (0.0-4.0)
== END 2025-05-11 14:55 | disposition home or self-care (01) ==
LOC: LAB 14:55
PROVIDERS: PCP Internal Medicine; Visit Provider Urology
DX: R97.20 Elevated prostate specific antigen [PSA] (principal)
CPT/HCPCS: 36415; 84153; 84154

== ENCOUNTER 2025-07-01 12:13 | Outpatient (OUT) | payer OTHER, MEDICARE, SELFPAY ==
--- OUTSIDE RECORDS SUMMARY | 2025-07-01 12:23 | XMS_ITS | CCD ---
Author Organization [facility] Care Team Providers Care Orthopedic Technician Name Role Phone PROVIDER, UNKNOWN Attending Unavailable PROVIDER, UNKNOWN Admitting Unavailable CARTER GODFREY Referring Unavailable SP CHOWDARY Primary Care Physician Unavailable Primary Care Provider Nabil salmon Unavailable Primary Care Provider UnavailSp Ruiz DO Primary Care Provider Unavailable Primary Care Provider Unavailrigoberto e Alfonzo Ash[place] II Unavailable Sp Chowdary Unavailable LAKSHMIPATHY ., LIANA Attending Britni vailable LUPEMIJOJO ., LIANA Admitting Britni vapardeep CHOWDARY, DR ESTEVEZ Primary Care Unavailable Gema Otto [...] Unavailable EPI, DR ESTEVEZ Primary Care Unavailable HALJUANY .AKILA Attending Unavailable HALKER .AKILA Admitting Unavailable EPI, DR ESTEVEZ Primary Care Unavailable COLES ., DR BIRD Consulting Unavailable COLES ., DR BIRD Attending Unavailable COLES ., DR BIRD Admitting Unavailable EPI, DR ESTEVEZ Primary Care Unavailable TAY GARCIA Consulting Unavailable GEMA PASTRANA Consulting Unavailable COLES ., DR BIRD Consulting [...] Gema Otto Consulting Unavailable BALL, DR ESTEVEZ Admitting Unavailable BALL, DR ESTEVEZ Attending Unavailable BALL, DR ESTEVEZ Consulting Unavailable BALL, DR ESTEVEZ Primary Care Unavailable COLES ., DR BIRD Attending Unavailable COLES ., DR BIRD Consulting Unavailable COLES ., DR BIRD Admitting Unavailable BALL, DR ESTEVEZ Primary Care Unavailable WEST, DR JI Smallwood Consulting Unavailable HALKER ., AKILA Attending Unavailable HALKER ., AKILA Consulting Unavailable BALL, DR ESTEVEZ Primary Care Unavailable HALKER ., AKILA Admitting Unavailable LAKSHMIPATHY ., NARSANDRAATH Attending Britni vailable LAKSHMIPATHY ., NARMARLYS Consulting Britni vailable LAKSHMIPATHY ., NARSANDRAATH Admitting [...] Consulting Unavailable AGUBOSIM, DAT Consulting Unavailable DORKOSKIE, FRANCIA Consulting Unavailable BALL, DR ESTEVEZ Primary Care Unavailable COLES ., DR BIRD Consulting Unavailable COLES ., DR BIRD Admitting Unavailable COLES ., DR BIRD Attending Unavailable Ziclaireer, Gema Consulting Unavailable DORKOSKIE, FRANCIA Consulting Unavailable LANGENBERG, REYNALDO Consulting Unavailable GEMA PASTRANA Consulting Unavailable EPI, DR ESTEVEZ Primary Care Unavailable COLES ., DR BIRD Consulting Unavailable COLES ., DR BIRD Admitting Unavailable COLES ., DR BIRD Attending Unavailable WEST, DR JI Smallwood Consulting Unavailable LAKSHMIPATHY ., NARENDRANATH Attending Britni vailable LAKSHMIPATHY ., NARENDRANATH Consulting Britni vailable LAKSHMIPATHY ., NARENDRANATH Admitting Britni vailable BALL, DR ESTEVEZ Primary Care Unavailable DO Sp Chowdary Primary Care Provider [phone] MD Pelon Coles Attending Provider Unavailable Primary Care Provider Unavailabl e COLES, Pelon R Attending Unavailable COLES, Pelon R Attending Unavailable COLES, Pelon R Attending Unavailable COLES, Pelon R Admitting Unavailable COLES, Pelon R Attending Unavailable COLES, Pelon R Attending Unavailable COLES, Pelon R Attending Unavailable COLES, Pelon R Attending Unavailable COLES, Pelon R Attending Unavailable COLES, Pelon R Admitting Unavailable COLES, Pelon R Attending Unavailable COLES, Pelon R Attending Unavailable COLES, Pelon R Attending Unavailable COLES, Pelon R Attending Unavailable Ball Sp LAO Primary Care Provider [phone] Sp Chowdary DO Attending Provider [phone] Sam Escoto DO Attending Provider Pelon Coles MD Attending Provider [phone] Shawn Denney DO Attending Provider Shawn Denney DO Other Provider Sp Chowdary DO Primary Care Provider NOELLE VEGA Attending Unavailable SP CHOWDARY Primary Care Unavailable Shawn Denney Attending Unavailable Sp Chowdary Primary Care Unavailable Shawn Denney Admitting Unavailable Shawn Denney Attending Unavailable Sp Chowdary Primary Care Unavailable Shawn Denney Admitting Unavailable NOELLE VEGA Referring Unavailable SP CHOWDARY Primary Care Unavailable Allergies Allergy Classification Reported Allergen(s) Allergy Type Date of Onset Reaction(s) Facility Benzodiazepines (1 source) diazePAM; Translations: [diazepam] Drug Allergy Nausea and vomiting [facility] exenatide (1 source) exenatide; Translations: [exenatide] Drug Allergy Nausea and vomiting [facility] Opioid Agonists (1 source) Morphine; Translations: [morphine] Drug Allergy 11-05-20 14 Itching (finding) [facility] Thiazolidinediones (glitazones) (1 source) pioglitazone; Translations: [pioglitazone] Drug Allergy Eruption of skin (disorder) [facility] (20 sources) diazePAM; Translations: [DIAZEPAM] Drug Allergy 02-26-20 17 Vomiting, GI Upset [facility] (5 sources) exenatide; Translations: [BYETTA] Drug Allergy 02-27-[address] [facility] (20 sources) pioglitazone; Translations: [PIOGLITAZONE] Drug Allergy 02-27-20 17 Eruption of skin (disorder), Other, Swelling [facility] (20 sources) exenatide; Translations: [exenatide] Drug Allergy 10-22-20 13 Vomiting [facility] (18 sources) Morphine; Translations: [morphine] Drug Allergy 11-05-20 14 Other (qualifier value), Itching (finding) [facility] (3 sources) diazePAM; Translations: [Valium] Drug Allergy [facility] (1 source) Morphine Drug Allergy [facility] (3 sources) pioglitazone; Translations: [Actos] Drug Allergy [facility] (18 sources) Vancomycin Drug Allergy 01-10-20 24 Unknown, Unknown Reaction [facility] (3 sources) patient allergy list reviewed by nurse or physicia Propensity to adverse reactions 07-08-20 19 Comment:Done Flock Other (2 sources) Byetta Prefilled Pen; Translations: [Byetta Prefilled Pen] Propensity to adverse reactions (disorder) [facility] Repository (10 sources) Ciprofloxacin; Translations: [ciprofloxacin] Drug Allergy 05-29-20 25 Joint pain (finding), Other: See Comments [facility] (1 source) Ciprofloxacin Drug Allergy 06-10-20 25 [facility] (1 source) exenatide Drug Allergy 06-10-20 [facility] (1 source) Vancomycin Drug Allergy 06-10-20 [facility] Medications Current Medications Medication Drug Class(es) [...] 0.5 ML tirzepatide 5 MG/ML Auto-Injector [Mounjaro] (6 sources) Start: 05-05-2024 Mounjaro 2.5 m g/0.5 mL subcutaneous solution Refills(s) 0 Start Date: 05/05/24 Status: Ordered Repeat number: 1 Start: 05-05-2024 Mounjaro 2.5 m g/0.5 mL subcutaneous solution Refills(s) 0 Start Date: 05/05/24 Status: Ordered amLODIPine 5 mg oral tablet (20 sources) Dihydropyridine Calcium Channel Nicolasa Start: 11-03-2024 Amlodipine 5 mg tablet Active 0 .ROUTE .COMPLEX November 03, 2024 8:37am TAKE 1 TABLET ONCE DAILY Complies with drug therapy Start: 01-29-2024 End: 11-03-2024 take 1 tablet by mouth twice daily Amlodipine 5 mg tablet Discontinued 5 MG PO Twice daily 180 90 February 26, 2024 6:08pm November 03, 2024 8:37am Start: 11-01-2017 End: 01-29-2024 take 1 tablet by mouth once daily amLODIPine (NORVASC) 5 mg tablet Take 5 mg by mouth once daily. 08/30/2022 Active Start: 11-01-2017 take 2.5 mg by mouth once sade y amlodipine 2.5 mg, Oral, Daily, Refills(s) 0, High blood pressure Start Date: 11/01/17 Status: Ordered Comment on above: Take 5 mg by mouth. Take 5 mg by mouth o nce daily. AMLODIPINE BESYLATE-VALSARTA N ORAL (3 sources) AMLODIPINE BESYLATE-VALSARTAN ORAL Take 2.5 mg by mouth. Active AMLODIPINE BESYL ATE-VALSARTAN ORAL Take 2.5 mg by mouth. 0 Active Basaglar KwikPen (14 sources) Start: 12-11-2022 Basaglar KwikP en Refills(s) 0 Start Date: 12/11/22 Status: Ordered Repeat number: 1 Start: 12-11-2022 Basaglar KwikP en Refills(s) 0 Start Date: 12/11/22 Status: Ordered Blood-Glucose Sensor (Freestyle Katelyn 3 Sensor) device (7 sources) Start: 01-26-2025 Blood-Glucose Sensor (Freestyle Katelyn 3 Sensor) device Active 0 .ROUTE .MEDSUPPLY 6 January 26, 2025 12:00am Use to test home BS 4-6x daily carvedilol 6.25 mg oral tablet (20 sources) alpha-Adrenergic Nicolasa, beta-Adrenergic Nicolasa Start: 06-17-2024 End: 02-09-2025 Carvedilol 6.25 mg tablet Active 0 .ROUTE .COMPLEX 180 February 09, 2025 10:21am TAKE 1 TABLET EVERY 12 HOURS; MUST ADMINISTER WITHA MEAL/FOOD Complies with drug therapy Start: 02-05-2024 End: 06-17-2024 take 1 tablet by mouth every twelve hours at mealtime Carvedilol 6.25 mg tablet Discontinued 6.25 MG PO Every 12 hours 180 90 February 26, 2024 6:08pm June 17, 2024 8:48am must administer with a meal/food cephalexin 500 mg oral capsule (1 source) Cephalosporin Antibacterial Start: 09-11-2022 End: 09-14-2022 take 1 capsule by mouth three times daily cephALEXin (KEFLEX) 500 mg capsule Take 1 capsule by mouth three times daily for 3 days. 9 capsule 0 09/11/2022 09/14/2022 Active Comment on above: Take 1 capsule by mo ut three times daily for 3 days. ciprofloxacin 500 mg oral tablet (6 sources) Quinolone Antimicrobial Start: 05-05-2024 End: 05-19-2024 take 1 tablet by mouth every twelve hours Cipro 500 mg Tab 500 mg = 1 tab(s), Oral, q12hr, X 14 day(s), # 28 tab(s), Refills(s) 0, Pharmacy: [facility]/pharmacy #[id number], 177, jamilah, 05/05/24 11:12:00 EDT, Height/Length Dosing, 102, kg, 05/05/24 11:12:00 EDT, Weight Dosing Start Date: 05/05/24 Stop Date: 05/19/24 Status: Ordered Start: 10-02-2023 End: 10-09-2023 Cipro 500 mg Tab 500 mg = 1 tab(s), Oral, q12hr, Start 3 days prior to procedure, X 7 day(s), # 14 tab(s), Refills(s) 0, Pharmacy: [facility]/pharmacy #[id number], [id number], 06/12/23 16:16:00 EDT, Height/Length Dosing, 111, kg, 12/18/22 15:22:00 EST, Weight Dosing Start Date: 10/02/23 Stop Date: 10/09/23 Status: Ordered Start: 03-13-2022 take 1 tablet by martha once daily Cipro 500 mg Tab 500 mg = 1 tab(s), Oral, Daily, take 1 day prior to procedure and 1 tab after procedure, # 2 tab(s), Refills(s) 0, Pharmacy: [facility]/pharmacy #[id number], 177 cm, 03/13/22 15:23:00 EDT, Height/Length Dosing, 112, kg, 03/13/22 15:23:00 EDT, Weight Dosing Start Date: 03/13/22 Status: Ordered gabapentin 100 mg oral capsule (20 sources) Anti-epileptic Agent Start: 09-17-2024 End: 12-09-2024 Gabapentin 100 mg capsule Active 0 .ROUTE .COMPLEX December 09, 2024 11:36am TAKE 1 CAPSULE ONCE DAILY AT BEDTIME Complies with drug therapy Start: 01-22-2024 End: 09-17-2024 take 1 capsule by mouth twice daily Gabapentin 100 mg capsule Discontinued 100 MG PO Twice daily 180 January 22, 2024 12:51pm September 17, 2024 8:45am Start: 01-08-2024 End: 01-22-2024 take 1 capsule by mouth once daily Gabapentin 100 mg capsule Discontinued 100 MG PO Daily January 08, 2024 1:00am January 22, 2024 12:53pm Start: 11-01-2017 take 100 mg by mouth three times daily gabapentin 100 mg, Oral, TID, Refills(s) 0, Pain Start Date: 11/01/17 Status: Ordered Repeat number: 1 take 1 capsule by [facility] once daily at bedtime Gabapentin 100 MG TAKE 1 CAPSULE AT BEDTIME Orally Once a day for 90 days Active Comment on above: Take 100 mg by mouth three times daily. Insulin Aspart U-100 (Novolog Flexpen U-100 Insulin) 100 unit/mL (3 mL) insulin pen (2 sources) Start: 12-09-2024 Insulin Aspart U-100 (Novolog Flexpen U-100 Insulin) 100 unit/mL (3 mL) insulin pen Active 15 UNIT SUBCUT Three times daily 45 December 09, 2024 11:37am 3 ml insulin glargine 100 unt/ml pen injector (20 sources) Insulin Analog Start: 08-05-2022 End: 11-09-2024 BASAGLAR KWIKPEN U-100 INSULIN 100 unit/mL (3 mL) INJECT 50 UNITS SUBCUTANEOUSLY ONCE A DAY 08/05/2022 Active Basaglar KwikPen 100 UNIT/ML as [...] 50 UNITS SUBC UTANEOUSLY ONCE A DAY iv contrast (will be provided with radiology test) (2 sources) Start: 06-02-2025 End: 06-03-2025 iv contrast (will be provided with radiology test) CT Urogram WO/W Inject, intravenously, once for 1 dose.No IV access, insert saline lock prior to the beginning of sedation, infusion, injection of imaging exam. Discontinue saline lock post exam. If Pt. has a central line or IVAD, may access for administration according to line specific nursing protocol. Once exam is complete flush line and de-access according to line specific nursing protocol in the CT contrast administration guidelines link. 1 each 06/02/2025 06/03/2025 Active Start: 06-02-2025 End: 06-03-2025 iv contrast (will be provide d with radiology test) MRI Prostate Inject, intravenously, once for 1 dose. No IV access, insert saline lock prior to the beginning of sedation, infusion, injection of imaging exam. Discontinue saline lock post exam. If Pt. has a central line or IVAD, may access for administration according to line specific nursing protocol. Once exam is complete flush line and de-access according to line specific nursing protocol in the MR contrast administration guidelines link. 1 each 06/02/2025 06/03/2025 Active losartan potassium 50 mg oral tablet (20 sources) Angiotensin 2 Receptor Nicolasa Start: 01-08-2025 take 1 tablet by mouth twice daily Losartan 50 mg tablet Active 50 MG PO Twice daily 180 90 January 08, 2025 2:19pm Complies with drug therapy Start: 11-06-2024 End: 01-08-2025 take 1 tablet by mouth twice daily Losartan 50 mg tablet Discontinued 0 .ROUTE .COMPLEX 180 November 06, 2024 10:45am January 08, 2025 2:19pm TAKE 1 TABLET BY MOUTH TWICE A DAY Start: 10-06-2024 End: 11-06-2024 Losartan 100 mg tablet Disco ntinued 0 .ROUTE .COMPLEX 90 October 06, 2024 10:44am November 06, 2024 10:45am TAKE 1 TABLET ONCE DAILY Start: 02-05-2024 End: 10-06-2024 take 1 tablet by mouth twice daily Losartan 50 mg tablet Discontinued 50 MG PO Twice daily 180 90 August 28, 2024 3:45pm October 06, 2024 10:44am Start: 11-01-2017 End: 02-26-2024 take 1 tablet by mouth once daily Losartan 100 mg tablet Discontinued 100 MG PO Daily January 08, 2024 1:00am February 26, 2024 6:03pm Comment on above: Take 100 mg by mouth once daily. Melatonin (20 sources) Start: 03-13-2022 Melatonin Once a day (at bedtime), Refills(s) 0 Start Date: 03/13/22 Status: Ordered melatonin 10 mg tab Take 20 mg by mouth. Active Melatonin 10 MG as directed Orally Not-Taking/PRN Melatonin 10 MG as directed Orally Not-Taking Comment on above: Take 20 mg by mouth. metFORMIN hydrochloride 1000 mg oral tablet (20 sources) Biguanide Start: 11-01-2017 End: 12-09-2024 take 1 tablet by mouth twice daily metFORMIN (GLUCOPHAGE) 1,000 mg tablet Take 1,000 mg by mouth twice daily. 11/01/2017 Active Start: 11-01-2017 take 1000 mg by mout h once daily metformin 1,000 mg, Oral, Daily, Refills(s) 0, High blood sugar Start Date: 11/01/17 Status: Ordered Repeat number: 1 Comment on above: Take 1,000 mg by martha th twice daily. morphine sulfate 15 mg extended release oral tablet (6 sources) Opioid Agonist Start: 11-02-2017 take 1 tablet by mouth every twelve hours morphine 15 mg ER Tab 15 mg = 1 tab(s), Oral, q12hr, Refills(s) 0, Pain Start Date: 11/02/17 Status: Ordered take 1 tablet by martha th every four hours as needed for pain morphine 15 MG tablet Take 15 mg by mout h every 4 hours as needed for Pain. Active Multivitamin (Daily Multi-Vitamin) tablet (12 sources) Start: 01-08-2024 take 1 tablet by mouth once daily Multivitamin (Daily Multi-Vitamin) tablet Active 1 TAB PO Daily January 08, 2024 1:00am Complies with drug therapy Start: 01-08-2024 take 1 tablet by martha th once daily Start: 01-08-2024 take 1 tablet by martha th once daily Multivitamin (Daily Multi-Vitamin) tablet Active 1 TAB PO Daily January 08, 2024 1:00am Start: 01-08-2024 take 1 tablet by martha th once daily Multivitamin (Daily Multi-Vitamin) tablet Active 1 TAB PO Daily January 08, 2024 12:00am Multivitamin preparation (10 sources) multivitamin (MU LTI-DAY ORAL) Take by mouth. Active multivitamin (MU LTI-DAY ORAL) Take by mouth. 0 Active Comment on above: Take by mouth. Multivitamins and Minerals (17 sources) Start: 11-02-2017 take 1 tablet by mouth once daily Multivitamins and Minerals 1 tablet, Oral, Daily, Refill(s) 0, Prophylaxis Start Date: 11/02/17 Status: Ordered Repeat number: 1 Start: 11-02-2017 take 1 tablet by martha th once daily Multivitamins and Minerals 1 tablet, Oral, Daily, Refill(s) 0, Prophylaxis Start Date: 11/02/17 Status: Ordered pantoprazole 40 mg delayed release oral tablet (10 sources) Proton Pump Inhibitor Start: 11-14-2023 take 1 tablet by mouth once daily Pantoprazole [address] Tab 40 mg = 1 tab(s), Oral, Daily, FOR 8 WEEKS, Refills(s) 0 Start Date: 11/14/23 Status: Ordered Repeat number: 1 phenazopyridine hydrochloride 200 mg oral tablet (1 [...] tablet (20 sources) HMG-CoA Reductase Inhibitor Start: 10-04-2024 Pravastatin 40 mg tablet Active 0 .ROUTE .COMPLEX October 04, 2024 1:28pm TAKE 1 TABLET ONCE DAILY Complies with drug therapy Start: 10-04-2024 Pravastatin 40 mg tablet Active 0 .ROUTE .COMPLEX October 04, 2024 1:28pm TAKE 1 TABLET ONCE DAILY Start: 11-01-2017 End: 10-04-2024 take 1 tablet by mouth once daily Pravastatin 40 mg tablet Discontinued 40 MG PO Daily January 08, 2024 1:00am October 04, 2024 1:28pm Comment on above: Take 40 mg by mouth once daily. Mestinon (11 sources) Start: 05-02-2021 Mestinon 60 mg , Daily, Refills(s) 0 Start Date: 05/02/21 Status: Ordered Start: 11-01-2017 take 60 mg by mouth three times daily pyridostigmine 60 mg, Oral, TID, myasthenia gravis, Refills(s) 0 Start Date: 11/01/17 Status: Ordered sildenafil 100 mg oral tablet (4 sources) Phosphodiesterase 5 Inhibitor Start: 12-17-2023 Viagra 100 mg Tab 100 mg = 1 tab(s), Oral, As Directed, PRN erectily dysfunction, Take on tab 1 hour before sexual activity, # 30 tab(s), Refills(s) 3, Pharmacy: [facility]/pharmacy #[id number], 177, cm, 12/17/23 11:33:00 EST, Height/Length Dosing, 104, kg, 12/17/23 11:33:00 EST, Weight Dosing Start Date: 12/17/23 Status: Ordered 1000 ml sodium chloride 9 mg/ml injection (1 source) Start: 06-02-2025 End: 06-02-2025 0.9 % sodium chloride (NACL 0.9%) infusion Administer at rate defined per CT contrast administration specifications. To be provided with radiology test. 150 mL 06/02/2025 06/02/2025 Active solifenacin succinate 10 mg oral tablet (6 sources) Cholinergic Muscarinic Antagonist Start: 09-22-2022 solifenacin 10 mg tablet 09/22/2022 Active tamsulosin hydrochloride 0.4 mg oral capsule (3 [...] above: Take 1 capsule by [facility] daily at bedtime. Tirzepatide (20 sources) Start: 05-27-2024 Tirzepatide 5 mg/0.5 mL pen injector Active 5 MG SUBCUT every week 2 May 27, 2024 11:52am Complies with drug therapy Start: 05-27-2024 Start: 05-27-2024 Tirzepatide 5 mg/0.5 mL pen injector Active 5 MG SUBCUT every week 2 May 27, 2024 11:52am Start: 05-27-2024 Tirzepatide 5 mg/0.5 mL pen injector Active 5 MG SUBCUT every week 2 May 27, 2024 10:52am Start: 05-27-2024 inject 5 mg by subcu taneous injection every week Tirzepatide Active 5 MG SUBCUT every week 2 May 27, 2024 11:52am Start: 04-21-2024 End: 04-29-2024 Tirzepatide 5 mg/0.5 mL pen injector Discontinued 5 MG SUBCUT every week 2 April 21, 2024 3:51pm April 29, 2024 12:47pm Start: 04-21-2024 End: 04-29-2024 Tirzepatide 5 mg/0.5 mL pen injector Discontinued 5 MG SUBCUT every week 2 April 21, 2024 2:51pm April 29, 2024 11:47am Start: 04-21-2024 End: 04-29-2024 inject 5 mg by subcutaneous injection every week Tirzepatide Discontinued 5 MG SUBCUT every week 2 April 21, 2024 3:51pm April 29, 2024 12:47pm Start: 04-20-2024 End: 04-21-2024 Tirzepatide 5 mg/0.5 mL pen injector Discontinued 5 MG SUBCUT every week 2 April 20, 2024 8:35am April 21, 2024 3:51pm Start: 04-20-2024 End: 04-21-2024 Tirzepatide 5 mg/0.5 mL pen injector Discontinued 5 MG SUBCUT every week 2 April 20, 2024 7:35am April 21, 2024 2:51pm Start: 04-20-2024 End: 04-21-2024 inject 5 mg by subcutaneous injection every week Tirzepatide Discontinued 5 MG SUBCUT every week 2 April 20, 2024 8:35am April 21, 2024 3:51pm traMADol hydrochloride 50 mg oral tablet (3 sources) Opioid Agonist Start: 05-29-2025 take 1 tablet by mouth every four hours as needed for pain Tramadol 50 mg tablet Active 50 MG PO Q4H as needed for pain 10 May 29, 2025 12:00am Complies with drug therapy ubidecarenone 100 mg oral capsule (20 sources) coenzyme Q10 (COENZYME Q-10) 100 mg cap capsule Take 100 mg by mouth once daily. Active CoQ-10 100 MG as directed Orally Not-Taking Comment on above: Take 100 mg by mouth once daily. vardenafil 10 mg oral tablet (11 sources) Phosphodiesterase 5 Inhibitor Start: 01-10-20 take 1 tablet by mouth once daily as needed Vardenafil 10 mg tablet Active 10 MG PO Daily as needed for sexual activity January 10, 2024 1:00am Complies with drug therapy Completed/Discontinued Medications Medication Drug Class(es) Dates Sig [...] severe pain). This medication can cause constipation. cloNIDine hydrochloride 0.1 mg oral tablet (20 sources) Central alpha-2 Adrenergic Agonist Start: 4 End: 4 take 1 tablet by mouth twice daily Clonidine Hcl 0.1 mg tablet Discontinued 0.1 MG PO Twice daily 60 [...] on above: Take 1 capsule by mo [facility] twice daily. hydrALAZINE hydrochloride 10 mg oral tablet (20 sources) Arteriolar Vasodilator Start: 4 End: 4 take 1 tablet by mouth twice daily Hydralazine 10 mg tablet Discontinued 10 MG PO Twice daily 60 February 26, 2024 6:01pm March 25, 2024 9:17am hydroCHLOROthiazide 25 mg oral tablet (20 sources) Thiazide Diuretic Start: 4 End: take 1 tablet by mouth once daily Hydrochlorothiazide 25 mg tablet Discontinued 25 MG PO Daily 30 February 05, 2024 4:36pm February 26, 2024 6:00pm 3 ml insulin aspart, human 100 unt/ml pen injector (20 sources) Insulin Analog Start: 5 End: Insulin Aspart U-100 (Novolog Flexpen U-100 Insulin) 100 unit/mL (3 mL) insulin pen Discontinued 15 UNIT SUBCUT Three times daily 45 November 30, 2024 9:48am December 09, 2024 11:37am Start: 01-08-2024 End: 11-24-2024 inject 10 [IU] by subcutaneous injection three times daily before mealtime Insulin Aspart (Niacinamide) (Fiasp Flextouch U-100 Insulin) 100 unit/mL (3 mL) insulin pen Discontinued 10 UNIT SUBCUT Three times daily 15 August 28, 2024 3:44pm November 24, 2024 9:52pm before meals Start: 10-01-2023 NovoLog as dir ected, Refills(s) 0 Start Date: 10/01/23 Status: Ordered Repeat number: 1 Start: 10-01-2023 NovoLog as dir ected, Refills(s) 0 Start Date: 10/01/23 Status: Ordered Start: 07-20-2023 inject 10 [IU] by torres bcutaneous injection three times daily before mealtime Fiasp FlexTouch 100 UNIT/ML 10 units Subcutaneous AC, three times daily for 90 days 01 Sep, 2023 Active Start: 08-14-2022 NOVOLOG FLEXPE N U-100 INSULIN 100 unit/mL (3 mL) Inject 18 Units subcutaneously as directed. 08/14/2022 Active NovoLOG Active Comment on above: Inject 18 Units subc utaneously as directed. 3 ml insulin lispro 100 unt/ml pen injector (13 sources) Insulin Analog Start: 11-28-2024 End: 11-30-2024 Insulin Lispro (Humalog Kwikpen Insulin) 100 unit/mL insulin pen Discontinued 15 UNIT SUBCUT Three times daily 45 November 28, 2024 1:00am November 30, 2024 9:48am Start: 11-01-2017 Humalog SubCut aneous, TIDAC, Refills(s) 0, High blood sugar Start Date: 11/01/17 Status: Ordered Insulin Lispro ( HUMALOG) 100 UNIT/ML SOCT Inject under the skin See admin instructions. Sliding scale Active Insulin Lispro (Humalog Kwikpen Insulin) 100 unit/mL insulin pen (2 sources) Start: 11-28-2024 End: 11-30-2024 Insulin Lispro (Humalog Kwikpen Insulin) 100 unit/mL insulin pen Discontinued 15 UNIT SUBCUT Three times daily 45 November 28, 2024 1:00am November 30, 2024 9:48am K-Effervescent 25 mEq oral tablet, effervescent (6 sources) Start: 12-18-2022 End: 12-13-2023 take 1 tablet by mouth twice daily K-Effervescent 25 mEq oral tablet, effervescent 25 mEq = 1 tab(s), Oral, BID, X 90 day(s), # 180 tab(s), Refills(s) 3, Pharmacy: [facility]/pharmacy #[id number], 177, cm, 12/18/22 15:22:00 EST, [...] take 1 tablet by mouth once daily Metoprolol Succinate 50 mg tablet extended release 24 hr Discontinued 50 MG PO Daily January 08, 2024 1:00am February 05, 2024 4:07pm Start: 11-01-2017 take 25 mg by mouth once daily Lopressor 25 mg, Oral, Daily, Refills(s) 0, High blood pressure Start Date: 11/01/17 Status: Ordered take 1 capsule by [facility] once daily Metoprolol Succinate 50 MG 1 capsule Orally Once a day Active Comment on above: Take 50 mg by mouth once daily. Multi Complete - (14 sources) Multi Complete - as directed Orally Active ozempic (0.25 or 0.5 mg/dose) 2 mg/3ml solution pen-injector (2 sources) Start: 04-24-2023 inject 0.5 mg by subcutaneous injection every week as needed Ozempic (0.25 or 0.5 MG/DOSE) 2 MG/3ML 0.5mg Subcutaneous weekly for 28 days Apr, Not-Taking/PRN predniSONE 20 mg oral tablet (6 sources) Start: 04-21-2025 End: 05-29-2025 Prednisone 20 mg tablet Discontinued 20 MG PO As Directed 18 April 21, 2025 12:00am May 29, 2025 8:46am 1 tab tid w/ food x 3 days, then bid w/ food x 3 days, then qd w/ food x 3 days sertraline 100 mg oral tablet (20 sources) Serotonin Reuptake Inhibitor Start: 05-04-2024 End: 04-21-2025 Sertraline 100 mg tablet Discontinued 0 .ROUTE .COMPLEX 90 October 31, 2024 9:39am April 21, 2025 7:37am TAKE 1 TABLET ONCE DAILY ATBEDTIME Start: 11-01-2017 End: 05-04-2024 take 1 tablet by mouth once daily Sertraline 100 mg tablet Discontinued 100 MG PO Daily January 08, 2024 1:00am May 04, 2024 6:22pm Start: 11-01-2017 take 100 mg by mouth twice daily sertraline 100 mg, Oral, BID, Refills(s) 0, Depression Start Date: 11/01/17 Status: Ordered Repeat number: 1 Sertraline HCl 1 00 MG TAKE 1 TABLET AT BEDTIME for 90 Active Comment on above: Take 100 mg by mouth once daily. sulfamethoxazole 800 mg / trimethoprim 160 mg oral tablet (1 source) Dihydrofolate Reductase Inhibitor Antibacterial, Sulfonamide Antimicrobial Start: 09-26-2022 End: 09-26-2022 sulfamethoxazole-t rimethoprim 800-160 mg 1 tablet (BACTRIM DS,SEPTRA DS) Start: 09-26-2022 End: 09-26-2022 sulfamethoxazole-trimethopri m 800-160 mg 1 tablet (BACTRIM DS,SEPTRA DS) tadalafil 20 mg oral tablet (20 sources) Phosphodiesterase 5 Inhibitor Start: 12-15-2024 take 0.5 tablet by mouth every hour as needed, then take 1 tablet by mouth every twenty-four hours as needed tadalafil 20 mg Tab 20 mg = 1 tab(s), Oral, Daily, PRN for erectile dysfunction, Take a half tab 1 hour prior to sexual activity. Do not exceed 20mg in 24 hours., # 30 tab(s), Refills(s) 3, Pharmacy: [facility] [id number], 177, cm, 12/15/24 14:05:00 EST, Height/Length Dosing, 102, kg, 12/15/24 14:05:00 EST, Weight Dosing Start Date: 12/15/24 Status: Ordered Quantity: 30.0 Unit: tab(s) Repeat number: 4 Start: 01-08-2024 End: 01-10-2024 take 1 tablet by mouth once daily as needed Tadalafil 10 mg tablet Discontinued 10 MG PO Daily as needed January 08, 2024 1:00am January 10, 2024 11:06am Start: 08-17-2023 take 1 tablet by martha th every twenty-four hours Cialis 20 mg Tab 20 mg = 1 tab(s), Oral, As Directed, Take 1 tab 1 hour as directed prior to sexual activity. Don't exceed 1 tab in a 24 hour period., # 30 tab(s), Refills(s) 11, Pharmacy: [facility] [id number], 177, cm, 06/12/23 16:16:00 EDT, Height/Length Dosing, [...] period., # 30 tab(s), Refills(s) 3, Pharmacy: [facility] [id number], 177, cm, 03/13/22 15:23:00 EDT, Height/Length Dosing,... Start Date: 11/15/22 Status: Ordered Start: 03-13-2022 take 0.5 tablet by m outh once daily Tadalafil (CIALIS) 20 mg tab(s) Take 10 mg by mouth once daily. Patient takes 0.5 tablet once a day 03/13/2022 Active Start: 03-23-2017 End: 09-26-2022 take 2 tablets by mouth once daily Tadalafil 5 mg tablet Take 10 mg by mouth once daily. 0 03/23/2017 09/26/2022 Discontinued Start: 03-23-2017 take 1 tablet by martha th once daily Tadalafil 5 mg tablet Take 1 tablet [...] takes 0.5 tablet once a day Tirzepatide (20 sources) Start: 07-29-2024 End: 09-28-2024 Tirzepatide (Mounjaro) 2.5 mg/0.5 mL pen injector Discontinued 2.5 MG SUBCUT every week 2 July 29, 2024 1:45pm September 28, 2024 2:44pm Start: 07-29-2024 End: 09-28-2024 Tirzepatide (Mounjaro) 2.5 m g/0.5 mL pen injector Discontinued 2.5 MG SUBCUT every week July 29, 2024 12:45pm September 28, 2024 1:44pm Start: 07-28-2024 End: 07-29-2024 Tirzepatide (Mounjaro) 2.5 m g/0.5 mL pen injector Discontinued 2.5 MG SUBCUT every week July 28, 2024 12:00am July 29, 2024 1:45pm for 4 weeks Start: 07-28-2024 End: 07-29-2024 Tirzepatide (Mounjaro) 2.5 m g/0.5 mL pen injector Discontinued 2.5 MG SUBCUT every week July 27, 2024 11:00pm July 29, 2024 12:45pm for 4 weeks Start: 07-28-2024 Tirzepatide (M ounjaro) 2.5 mg/0.5 mL pen injector Active 2.5 MG SUBCUT every week July 28, 2024 12:00am for 4 weeks Start: 04-29-2024 End: 05-27-2024 Tirzepatide 2.5 mg/0.5 mL pe n injector Discontinued 2.5 MG SUBCUT every week 2 April 29, 2024 12:47pm May 27, 2024 11:53am Start: 04-29-2024 End: 05-27-2024 Tirzepatide 2.5 mg/0.5 mL pe n injector Discontinued 2.5 MG SUBCUT every week 2 April 29, 2024 11:47am May 27, 2024 10:53am Start: 04-29-2024 End: 05-27-2024 inject 2.5 mg by subcutaneous injection every week Tirzepatide Discontinued 2.5 MG SUBCUT every week 01 16April 29, 2024 12:47pm May 27, 2024 11:53am Start: 03-25-2024 End: 04-20-2024 Tirzepatide (Mounjaro) 2.5 m g/0.5 mL pen injector Discontinued 2.5 MG SUBCUT every week 01 16March 24, 2024 11:00pm April 20, 2024 7:35am Start: 03-25-2024 End: 04-20-2024 Tirzepatide (Leeunjaro) 2.5 m g/0.5 mL pen injector Discontinued 2.5 MG SUBCUT every week 01 16March 25, 2024 12:00am April 20, 2024 8:35am Start: 03-25-2024 Tirzepatide (M ronnjaro) 2.5 mg/0.5 mL pen injector Active 2.5 MG SUBCUT every week 01 16March 25, 2024 12:00am triamcinolone acetonide 40 mg/ml injectable suspension (20 sources) Corticosteroid Start: 12-14-2022 Kenalog-40 Nov, 120 mg Start: 12-14-2022 Start: 09-10-2019 Start: 09-10-2019 Kenalog -40 mg Aug, 40 mg Problems Active Problems Problem Classification Problem Date Documented Date Episodic/Chronic Cancer of bladder (20 sources) Malignant neoplasm, overlapping lesion of bladder; Translations: [Malignant tumor of urinary bladder] Onset: 2 10-29-2019 Chronic Cancer of bladder (10 sources) History of malignant neoplasm of bladder; Translations: [Personal history of malignant neoplasm of bladder] Onset: 2 Episodic Cancer of other urinary organs (1 source) Malignant neoplasm of urinary organ; Translations: [Malignant neoplasm of urinary organ, unspecified] Chronic Cancer; other and unspecified primary (17 sources) H/O: malignant neoplasm 08-24-2020 Episodic Cardiac dysrhythmias (8 sources) Postural orthostatic tachycardia syndrome ; Translations: [POTS (postural orthostatic tachycardia syndrome)] Onset: 2 08-24-2022 Chronic Chronic kidney disease (20 sources) Chronic kidney disease; Translations: [Chronic kidney disease, unspecified] 10-01-2023 Chronic Deficiency and other anemia (20 sources) Anemia; Translations: [Anemia, unspecified] Onset: 3 Episodic Deficiency and other anemia (7 sources) Anemia, unspecified; Translations: [Anemia, unspecified] 01-10-2024 [...] unspecified] Onset: 8 08-24-2022 Chronic Esophageal disorders (11 sources) Gastro-esophageal reflux disease with esophagitis; Translations: [Gastro-esophageal reflux disease with esophagitis, without bleeding] Onset: 3 Chronic Essential hypertension (20 sources) Hypertensive disorder; Translations: [Essential (primary) hypertension] Onset: 2 10-29-2019 Chronic Fracture of lower limb (1 source) Closed fracture of ankle; Translations: [Unspecified closed fracture of ankle] Episodic Gastroduodenal ulcer (except hemorrhage) (11 sources) Gastric ulcer; Translations: [Gastric ulcer, unspecified [...] Episodic Inflammatory conditions of male genital organs (7 sources) Acute prostatitis; Translations: [Acute prostatitis] Onset: [...] knee] Onset: 2 10-29-2019 Chronic Other aftercare (2 sources) 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; Translations: [CUSTODIAL CURRENT USE OF INSULIN] Onset: 3 Episodic Other aftercare (1 source) Long-term current use of drug therapy; Translations: [Other assistant commissioner (current) drug therapy] Episodic Other aftercare (3 sources) High risk drug monitoring status; Translations: [scalp treatment operator (current) use of opiate analgesic] Episodic Other aftercare (17 sources) Long-term current use of insulin; Translations: [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] 01-08-2024 Episodic Other [...] colon] Episodic Other and unspecified benign neoplasm (20 sources) History of polyp of colon; Translations: [Personal history of colonic polyps] Onset: 3 Episodic Other and unspecified benign neoplasm (11 sources) Benign neoplasm of ascending colon; Translations: [Benign neoplasm of ascending colon] Onset: 3 Episodic Other circulatory disease (14 sources) Postural orthostatic tachycardia syndrome 12-11-2022 Episodic [...] Chronic Other diseases of kidney and ureters (6 sources) Clot retention of urine 05-05-2024 Episodic Other diseases of kidney and ureters (1 source) Other obstructive and reflux uropathy; Translations: [BPH with obstruction/lower urinary tract symptoms] Onset: 5 Episodic Other disorders of stomach and duodenum (17 sources) Gastroparesis syndrome; Translations: [Gastroparesis] Episodic Other endocrine disorders (14 sources) Hyperparathyroidism 12-11-2022 Chronic Other endocrine disorders (1 source) Disorder of adrenal gland; Translations: [Other specified disorders of adrenal gland] Onset: 2 Chronic Other gastrointestinal disorders (1 source) Swollen abdomen; Translations: [Abdominal distension (gaseous)] Onset: 3 Episodic Other gastrointestinal disorders (12 sources) Abdominal bloating 10-05-2023 Episodic Other injuries and conditions due to external causes (1 source) History of fall; Translations: [History of falling] Episodic Other male genital disorders (20 sources) Male erectile dysfunction, unspecified; Translations: [Erectile dysfunction] Onset: 2 Chronic Other male genital disorders (9 sources) Atypical small acinar proliferation of prostate; Translations: [Atypical small acinar proliferation of prostate] 01-26-2025 Episodic Comment on above: PSA: 20.03 - 01/2025 Other male genital disorders (3 sources) Atypical small acinar proliferation of prostate; Translations: [Neoplasm of uncertain behavior of prostate] 01-26-2025 Episodic Other nervous system disorders (1 source) Other chronic pain; Translations: [OTHER CHRONIC PAIN] Onset: 3 Chronic Other nervous system disorders (11 sources) Neuropathy of lower limb; Translations: [Unspecified mononeuropathy of right lower limb] 01-10-2024 Chronic Other nervous system disorders (1 source) Unspecified mononeuropathy of right lower limb; Translations: [Mononeuritis of lower limb, unspecified] 01-10-2024 Chronic Other nervous system disorders (16 sources) Carpal tunnel syndrome of right wrist; Translations: [Carpal tunnel syndrome, right upper limb] 05-05-2025 Chronic Other nervous system disorders (1 source) Carpal tunnel syndrome, right upper limb; Translations: [Carpal tunnel syndrome, right upper limb] Onset: 5 Chronic Other nervous system disorders (7 sources) Tremor; Translations: [Tremor, unspecified] 01-26-2025 Episodic Other nervous system disorders (10 sources) Paresthesia of hand ; Translations: [Paresthesia of skin] 04-22-2025 Episodic Other non-traumatic joint disorders (11 sources) Arthralgia of the pelvic region and thigh; Translations: [Pain in left hip] Onset: 8 Episodic Other non-traumatic joint disorders (2 sources) Pain in right knee Episodic Other non-traumatic joint disorders (1 source) Shoulder joint pain; Translations: [Pain in left shoulder] Episodic Other non-traumatic joint disorders (4 sources) Hip pain; Translations: [Pain in left hip] 04-21-2025 Episodic Other nutritional; endocrine; and metabolic disorders (20 sources) Body mass index 30+ - obesity; Translations: [Body mass index (BMI) 34.0-34.9, adult] Onset: 2 Chronic Other nutritional; endocrine; and metabolic disorders (20 sources) Obesity; Translations: [Other obesity due to excess calories] Onset: 5 10-05-2023 Chronic Other nutritional; endocrine; and metabolic disorders (3 sources) Other obesity due to excess calories Chronic Other nutritional; endocrine; and metabolic disorders (3 sources) Body mass index (BMI) 34.0-34.9, adult Chronic Other nutritional; endocrine; and metabolic disorders [...] (pediatric)] Onset: 2 Chronic Residual codes; unclassified (5 sources) Obstructive sleep apnea (adult) (pediatric); Translations: [Obstructive sleep apnea] Chronic Residual codes; unclassified (1 source) Postprocedural state finding; Translations: [Other specified postprocedural states] 06-10-2025 Episodic Spondylosis; intervertebral disc disorders; other back problems (20 sources) Lumbar spondylosis; Translations: [Spondylosis without myelopathy or radiculopathy, lumbar region] Onset: 3 Chronic Spondylosis; intervertebral disc disorders; other back problems (12 sources) Low back pain; Translations: [Low back pain, unspecified] Onset: 5 05-05-2025 Episodic Sprains and strains (2 sources) Strain of muscle, fascia and tendon of left hip, initial encounter Episodic Superficial injury; contusion (10 sources) Contusion of shoulder region; Translations: [Contusion of shoulder region] 04-21-2025 Episodic Syncope (1 source) Syncope and collapse; Translations: [Syncope and collapse] Episodic Unclassified (1 source) LOW BACK PAIN, UNSPECIFIED; Translations: [LOW BACK PAIN, UNSPECIFIED] Onset: 2 Unclassified (1 source) Long-term current use of drug therapy; Translations: [Long-term (current) use of other medications] Onset: 8 Past or Other Problems Problem Classification Problem Date Documented Da te Episodic/Chronic Allergic reactions (1 source) Urticaria; Translations: [Unspecified urticaria] Onset: 05-04-2014 Episodic Calculus of urinary tract (20 sources) Kidney stone; Translations: [Calculus of kidney and ureter ] Onset: 05-08-2022 10-29-2019 Episodic Fluid and electrolyte disorders (5 sources) Hyperkalemia; Translations: [Hyperkalemia] Onset: 09-12-2022 Episodic Headache; including migraine (1 source) Headache; [...] 11-03-2015 Episodic Other aftercare (1 source) Other assistant commissioner (current) drug therapy; Translations: [OTH SOLID WASTE ENGINEER CURRENT DRUG THERAPY] Onset: 05-29-2022 Episodic Other aftercare (1 source) senior living (current) use of oral hypoglycemic drugs; Translations: [SOLID WASTE ENGINEER USE ORAL HYPOGLYCEMIC DX] Onset: 05-08-2022 Episodic [...] Onset: 07-26-2022 Episodic Other non-traumatic joint disorders (1 source) [...] Results Test Name Value Interpretation Reference Range Facility [facility]20[facility] (UR[facility] DAT LOPEZ ([id number]) 1960 M Date Time Provider Department 06/26/25 NOELLE VEGA During your visit today, we recorded the following information about you: Breanna Falcon 06/26/2025 4:23 PM Signed Dat is calling Noelle Vega MD today asking for his PSA lab order to be faxed to [facility]. F: [phone] Patient has been identified by name and birthdate. Duration of symptoms: N/A Person calling: self Call patient at: at home [phone] (home) [phone] (cell) Was an appointment scheduled: No Closing statement: Results or non-symptom based questions: Thank you for calling [facility] [place], your call will be returned within the next business day. Debbie Zarate RN 06/26/2025 4:30 PM Signed Order printed and faxed over to [facility] as requested. Confirmation received. Pt was notified by phone and VM left. Юлия Washburn 06/26/2025 4:32 PM Signed Patient called back because he just missed the phone call and he didn't listen to his VM. He was given the provider's message and indicated a verbal understanding and had no further questions. Allergies As of Date: 06/26/2025 Noted Allergy Reaction CIPROFLOXACIN 06/02/2025 14 - Other: See Comments Comments: Joint pain ACTOSE (PIOGLITAZONE) 11/18/2019 7 - Swelling Comments: Petechiae VALIUM (DIAZEPAM) 11/18/2019 8 - GI Upset EXENATIDE 12/19/2016 11 - Vomiting Comments: Other reaction(s): Nausea And Vomiting Date Reviewed: 06/25/2025 Reviewed by: Monique Gardiner RN - Fully Assessed Reason for Visit: Electronic Communication [890] Prescriptions as of 06/26/2025 - NOVOLOG FLEXPEN U-100 INSULIN 100 unit/mL (3 mL) Inject 18 Units subcutaneously as directed. - solifenacin 10 mg tablet - amLODIPine (NORVASC) 5 mg tablet Take 5 mg by mouth once daily. - Tadalafil (CIALIS) 20 mg tab(s) Take 10 mg by mouth once daily. Patient takes 0.5 tablet once a day - metFORMIN (GLUCOPHAGE) 1,000 mg tablet Take 1,000 mg by mouth twice daily. - pravastatin (PRAVACHOL) 40 mg tablet Take 40 mg by mouth once daily. - metoprolol succinate ER (TOPROL XL) 50 mg 24 hr tablet Take 50 mg by mouth once daily. - gabapentin (NEURONTIN) 100 mg capsule Take 100 mg by mouth three times daily. - sertraline (ZOLOFT) 100 mg tablet Take 100 mg by mouth once daily. - losartan (COZAAR) 100 mg tablet Take 100 mg by mouth once daily. - BASAGLAR KWIKPEN U-100 INSULIN 100 unit/mL (3 mL) INJECT 50 UNITS SUBCUTANEOUSLY ONCE A DAY - coenzyme Q10 (COENZYME Q-10) 100 mg cap capsule Take 100 mg by mouth once daily. - multivitamin (MULTI-DAY ORAL) Take by mouth. - melatonin 10 mg tab Take 20 mg by mouth. Problem List As Of Date 06/26/2025 Noted Resolved Bladder cancer (HCC) [C67.9] 08/24/2022 Hypertension [I10] 08/24/2022 Hyperlipidemia [E78.5] 08/24/2022 Type 2 diabetes mellitus without complication, *08/24/2022 POTS (postural orthostatic tachycardia syndrome*08/24/2022 KUNAL (obstructive sleep apnea) [G47.33] 08/28/2022 BMI 34.0-34.9,adult [Z68.34] 08/28/2022 Kidney stone on left side [N20.0] 09/12/2022 Left ureteral stone [N20.1] 09/12/2022 Hyperkalemia [E87.5] 09/12/2022 BPH (benign prostatic hyperplasia) [N40.0] Encounter Status:Closed by DEBBIE ADORNO on 06/26/25 [facility] MRI 3D POST PROCESSINGon MRI 3D POST PROCESSING * * *Final Report* * * DATE OF EXAM: Jun 25 2025 2:58PM [facility] [id number] - MRI 3D POST PROCESSING / PROCEDURE REASON: Elevated prostate specific antigen (PSA) * * * * Physician Interpretation * * * * EXAMINATION: MRI PELVIS WITHOUT AND WITH IV CONTRAST (MULTIPARAMETRIC PROSTATE MRI) CLINICAL HISTORY: 65 years old being evaluated for prostate cancer with prior negative biopsy Previous biopsy: None. PSA: 22 ng/mL ( ) ; Prior therapy: None. TECHNIQUE: Multiparametric MRI of the prostate and pelvis performed on a 3T scanner utilizing phase pelvic coil. Sequences obtained: multiplanar T2-WI with small FOV; Axial DWI with multiple B-values and creation of ADC-maps; DCE T1-weighted images through the prostate obtained before, during and after the administration of intravenous gadolinium; prostate dimensions and volume were obtained using a semi-automated software ([employer]). 3D reconstructed images of the prostate were created by the interpreting radiologist (myself) on an independent workstation ([employer]). CONTRAST: IV: 10 cc of Elucirem. COMPARISON: Prostate MRI 11/18/2019 RESULT: Prostate: Dimensions: 8.2 x 7.1 x 8.3 cm corresponding to a volume of approximately 176 cc. Post biopsy hemorrhage: Absent Peripheral zone: Diffuse mild T2/ADC map hypointensity (PI-RADS 2). Transition zone: There is transition zone hypertrophy, without focal abnormalities suspicious for clinically significant disease (PI-RADS 2). Hypertrophy of the median lobe with extension into the bladder base. Neurovascular bundle: Unremarkable. Seminal vesicles: Unremarkable. Adjacent Organ Involvement: Not applicable. Lymph nodes: No enlarged pelvic lymph nodes. Bladder: Circumferential bladder wall thickening, compatible with chronic outlet obstruction. Pelvic bones: No suspicious pelvic osseous lesions. Other Findings: Sigmoid colonic diverticula, without associated inflammation. IMPRESSION: 1. No suspicious prostate lesion. Maximum PI-RADS category: 2. 2. Prostate volume is approximately 176 cc. Number of targets created for MR/US fusion biopsy: Whole gland contour performed in PerspecSys on AX MARIANO T2 Boost P4, series 7 Peripheral zone: 0 Transition zone: 0 If present, targets were numbered in order of level of suspicion for clinically significant prostate cancer ([place] score 3 + 4 or higher). PI-RADS v2.1 Assessment Categories: PI-RADS 1: Clinically significant cancer is highly unlikely PI-RADS 2: Clinically significant cancer is unlikely PI-RADS 3: Clinically significant cancer is equivocal PI-RADS 4: Clinically significant cancer is likely PI-RADS 5: Clinically significant cancer is highly likely (V.) Risk And Insurance Consultant: VITOR Transcribe Date/Time: Jun 25 2025 2:38P Dictated by : LAMAR LAIRD MD This examination was interpreted and the report reviewed and electronically signed by: LAMAR LAIRD MD on Jun 25 2025 5:02PM EST [id number] [facility] MRI PROSTATE WO/W IVCONon MRI PROSTATE WO/W IVCON * * *Final Report* * * DATE OF EXAM: Jun 25 2025 2:58PM [place] [id number] - MRI PROSTATE WO/W IVCON / PROCEDURE REASON: Encounter for observation for other suspected diseases and conditions ruled out * * * * Physician Interpretation * * * * EXAMINATION: MRI PELVIS WITHOUT AND WITH IV CONTRAST (MULTIPARAMETRIC PROSTATE MRI) CLINICAL HISTORY: 65 years old being evaluated for prostate cancer with prior negative biopsy Previous biopsy: None. PSA: 22 ng/mL ( ) ; Prior therapy: None. TECHNIQUE: Multiparametric MRI of the prostate and pelvis performed on a 3T scanner utilizing phase pelvic coil. Sequences obtained: multiplanar T2-WI with small FOV; Axial DWI with multiple B-values and creation of ADC-maps; DCE T1-weighted images through the prostate obtained before, during and after the administration of intravenous gadolinium; prostate dimensions and volume were obtained using a semi-automated software ([employer]pecSys). 3D reconstructed images of the prostate were created by the interpreting radiologist (myself) on an independent workstation ([employer]). CONTRAST: IV: 10 cc of Elucirem. COMPARISON: Prostate MRI 11/18/2019 RESULT: Prostate: Dimensions: 8.2 x 7.1 x 8.3 cm corresponding to a volume of approximately 176 cc. Post biopsy hemorrhage: Absent Peripheral zone: Diffuse mild T2/ADC map hypointensity (PI-RADS 2). Transition zone: There is transition zone hypertrophy, without focal abnormalities suspicious for clinically significant disease (PI-RADS 2). Hypertrophy of the median lobe with extension into the bladder base. Neurovascular bundle: Unremarkable. Seminal vesicles: Unremarkable. Adjacent Organ Involvement: Not applicable. Lymph nodes: No enlarged pelvic lymph nodes. Bladder: Circumferential bladder wall thickening, compatible with chronic outlet obstruction. Pelvic bones: No suspicious pelvic osseous lesions. Other Findings: Sigmoid colonic diverticula, without associated inflammation. IMPRESSION: 1. No suspicious prostate lesion. Maximum PI-RADS category: 2. 2. Prostate volume is approximately 176 cc. Number of targets created for MR/US fusion biopsy: Whole gland contour performed in [employer] on AX MARIANO T2 Boost P4, series 7 Peripheral zone: 0 Transition zone: 0 If present, targets were numbered in order of level of suspicion for clinically significant prostate cancer ([place] score 3 + 4 or higher). PI-RADS v2.1 Assessment Categories: PI-RADS 1: Clinically significant cancer is highly unlikely PI-RADS 2: Clinically significant cancer is unlikely PI-RADS 3: Clinically significant cancer is equivocal PI-RADS 4: Clinically significant cancer is likely PI-RADS 5: Clinically significant cancer is highly likely (V.05.2019) Risk And Insurance Consultant: VITOR Transcribe Date/Time: Jun 25 2025 2:38P Dictated by : LAMAR LAIRD MD This examination was interpreted and the report reviewed and electronically signed by: LAMAR LAIRD MD on Jun 25 2025 5:02PM EST [id number] [facility] [facility] CNOVon 06-02-2025 CNOV Office Visit (FVUROL ) DAT LOPEZ ([id number]) 1960 M Date Time Provider Department 06/02/25 11:30 AM NOELLE VEGA During your visit today, we recorded the following information about you: Pulse Blood pressure 82/minute 150/91 Noelle Vega MD 06/02/2025 11:44 AM Signed [facility] ESTABLISHED PATIENT Recording using ambient AI software for draft documentation of the visit was discussed with the patient/authorized employee's representative; all questions welcomed and answered. Patient/authorized employee's representative agreed to proceed REASON FOR VISIT: Follow up for Nephrolithiasis HPI: This is a 65 year old male with BPH with LUTS s/p Rezum, prostate nodule, ED, gross hematuria, bladder cancer, T1HG in 2007. CT A/P 09/27/22 - Mild left hydronephrosis and hydroureter secondary to a partially obstructing 6 mm stone at ureterovesical junction. Non obstructing stones within right and left kidney. Multiple right renal cysts. Complex cyst or mass cannot be completely excluded on this non contrast study. Multiple stones within urinary bladder. Enlarged prostate markedly protruding into base of bladder. 09/11/22 S/P LEFT PCNL, Ureteroscopy, laser lithotripsy with stent placement Stone analysis 70% COM and 20% COD Stent removed on 09/26/22 Office Visit 08/11/22: Patient describes falling on his deck in March 2022. Developed tea colored urine. CT was ordered and demonstrated Left NL, multiple stones. ESWL was performed. [facility]. Then URS x 2 and ureteral stent placement. Personal hx of stones: yes Prior stone procedures: yes Family hx of prostate cancer. BPH: - Diagnosed with BPH; reports significant prostate enlargement. - Recent PSA level: 20.9. - Previous PSA levels consistently elevated; last recorded at 22. - Underwent Rezum procedure by Dr. Coles, which helped with the urinary symptoms. - Denies nocturia or difficulty initiating urine flow. - Reports sexual dysfunction; prescribed Viagra and tadalafil, with no improvement. - Taking tadalafil 10 mg nightly for BPH management. - Father had bladder cancer and prostate cancer; underwent TURP, leading to metastatic spread and within a year. Prostate Cancer Concerns: - Previous biopsies showed no malignancy. - Recent MRI at [facility] indicated a PI-RADS 4 lesion. - Recent biopsy was not targeted; patient expressed desire for a targeted biopsy. Bladder Cancer: - History of bladder cancer; cancer-free since 2007. - Monitored with annual cystoscopies by Dr. Coles; last cystoscopy in November. Negative except for bladder stone. - Recent CT scan at [facility] post-hematuria incident showed a bladder stone also seen on cystoscopy by Dr. Coles. Gross hematuria - intermittent - no new stones. Reported negative cystoscopy for bladder cancer. Bladder stones and BPH LABS: Creatinine Date Value Ref Range Status 09/12/2022 1.75 (H) 0.73 - 1.22 mg/dL Final 09/11/2022 1.67 (H) 0.73 - 1.22 mg/dL Final 08/28/2022 1.22 0.73 - 1.22 mg/dL Final URINALYSIS: Specific [place], Ur Date Value Ref Range Status 08/28/2022 1.014 1.005 - 1.030 Final Glucose, Urine Date Value Ref Range Status 08/28/2022 Negative Negative Final Bilirubin, Urine Date Value Ref Range Status 08/28/2022 Negative Negative Final Ketones, Urine Date Value Ref Range Status 08/28/2022 Negative Negative Final Hemoglobin/Blood,Ur Date Value Ref Range Status 08/28/2022 3+ (A) Negative Final Nitrites Date Value Ref Range Status 08/28/2022 Negative Negative Final WBC, Urine Date Value Ref Range Status 08/28/2022 6-10 /HPF (A) 0-5 /HPF Final PATHOLOGY: 09/11/22: 70% COM and 20% COD Urine Culture: 08/28/22: No growth IMAGING: Imaging Reviewed. Radiology report may be copied below for ease of reference. CT abdomen/pelvis: 09/29/22 MRI prostate in 2021 ALLERGIES: ALLERGIES Allergen Reactions Ciprofloxacin Other: See Comments Joint pain Actose [Pioglitazon* Swelling Petechiae Valium [Diazepam] GI Upset Exenatide Vomiting Other reaction(s): Nausea And Vomiting MEDICATIONS: Current Outpatient Medications Medication Sig iv contrast (will be provided with radiology test) CT Urogram WO/W Inject, intravenously, once for 1 dose.No IV access, insert saline lock prior to the beginning of sedation, infusion, injection of imaging exam. Discontinue saline lock post exam. If Pt. has a central line or IVAD, may access for administration according to line specific nursing protocol. Once exam is complete flush line and de-access according to line specific nursing protocol in the CT contrast administration guidelines link. 0.9 % sodium chloride (NACL 0.9%) infusion Administer at rate defined per CT contrast administration specifications. To be provided with radiology test. (more content not included)... Normal [facility] UA DIP, URINE (POC)on 2024 BILIRUBIN UA (POCT) Negative Negative [facility] CLARITY UA (POCT) [facility] COLOR UA (POCT) Yellow [facility] GLUCOSE UA (POCT) Negative Negative mg/dL [facility] Hemoglobin Ql (U) Negative Negative [facility] Interpretation and review of laboratory results Abnormal [facility] KETONE UA (POCT) Negative Negative mg/dL [facility] LEUKOCYTES UA (POCT) Negative Negative [facility] NITRITE UA (POCT) Negative Negative [facility] PH UA (POCT) 5.5 4.5 - 8.0 [facility] Protein Ql (U) 30 mg/dL Abnormal Negative [facility] SPECIFIC GRAVITY UA (POCT) 1.02 1.005 - 1.030 [facility] UROBILINOGEN UA (POCT) 0.2 Normal E.U./dL [facility] Location:[facility] [place], [place], [address] [place] [address] POINT OF CARE [facility] Glucose Poct Glucometerson 0 05-29-2025 Glucose [Mass/Vol] 150 mg/dL Normal [facility] Comment on above: Result Comment: [facility] Glucose Reference Range is dependent on time and content of last meal. Glucose of more than 200 mg/dL in a nonstressed, ambulatory subject supports the diagnosis of Diabetes Mellitus. PERFORMED BY: [facility] [address] [place] [address] PATHOLOGIST [employer]ILROAD SIGNAL AND SWITCH OPERATOR SHANNON DORADO M.D. Performed By: #### G FROILAN #### Point of Care testing , Charles 05-29-2025 L ------- Specimen: [id number] Received: 05/29/25 Status: GHANSHYAM Alvarez Num: [id number] Spec Type: Surgical Subm Dr: Shawn Denney DO Tissues: A Carpal Tunnel Tissue (TENOSYNOVIUM STAIN FOR AMYLO) Procedures: HE, Gross/Micro L3, Congo Red Age/ Patient Sex Location Account Attending Physician Dat Lopez Jr/M MS [id number] Shawn Denney DO SPEC NUM: [id number] RECD: 05/29/25 STATUS: GHANSHYAM ULLOAJayda NUM: [id number] JARRET: 05/29/25-[address] [facility] [address]: Shawn Denney DO ENTERED: 05/29/[address] [facility] DR: SPEC TYPE: Surgical DEPT: S ENTERED BY: [id number] RECV BY: [id number] ORDERED: HE, Gross/Micro L3, [place] Red ORDERED: HE, Gross/Micro L3, Congo Red Pathological Diagnosis Tenosynovium (stain for amyloid): ? Fragment of fibrovascular tissue ? Congo red stain is negative for amyloid deposit Clinical Information Right carpal tunnel syndrome, stain for amyloid Gross Description Part A is received in formalin labeled with the patients name, date of , and tenosynovium, stain for amyloid is an ovoid portion of cannon to pale yellow, delicate tissue, 1.3 x 0.5 x 0.2 cm. The specimen is bisected and entirely submitted in a single cassette. (1, ns, [id number]) CPT Codes 40329, 47934 Specimen: [id number] Received: 05/29/25 Status: GHANSHYAM Alvarez Num: [id number] Spec Type: Surgical Subm Dr: Shawn Denney, DO Tissues: A Carpal Tunnel Tissue (TENOSYNOVIUM STAIN FOR AMYLO) Procedures: HE, Gross/Micro L3, Congo Red Patient: Dat Lopez [id number] (Continued) Signed (signature on file) Eliel Bills MD 06/01/25 1433 Normal [facility] UroVysion Fish and Urine Cyt o ( Labs)on 05-27-2025 UVFISH & UC Diagnosis Info Invalid Interpretation Code [facility] Comment on above: Result Comment: A:Ur ine,Urine:Voided Diagnosis Summary - Adequate cellularity for evaluation. Diagnosis Summary - The UroVysion FISH study detected normal copy numbers for chromosomes 3, 7, 17, and 9p21. 25 cells were analyzed in this evaluation. No evidence of aneuploidy for chromosomes 3, 7, or 17 or deletion of the 9p21 locus was found in cells present in this specimen. This test does not rule out the possibility of a low grade non-invasive papillary urothelial carcinoma. These findings should be correlated with cytology and cystoscopy results. * CPT: 94727, 54856. Microscopic Notes - Microscopic Notes - Abnormal cells 9p21 deletions: Abnormal cells aneploid events: Total cells analyzed: 25 Hematuria: Gross Description Site ID:A color Yellow fixative Alcohol Received 90 mls of clear yellow fluid with the patient's name and, Urine on the vial. Electronically signed by : on: 05/27/2025 10:53:22 Performed By: #### 1 [id number] #### [facility] [address] [place] [address] X-ray reportOrdered By: Vinny Crawford on 05-20-2025 Study report [facility] [address] [place] [address] XRay Report Signed Patient: Dat Lopez Jr MR#: [id number] : 1960 Acct:[id number] Age/Sex: 65 / M ADM Date: 5 Loc: [facility] Room: Type: [facility] CLI Attending Dr: Shawn Denney DO Copies to: Shawn Denney DO~ Ordering Provider: Shawn Denney DO Date of Service: 05/20/25 XR/XR hand RT min 3V*: G56.01 - Carpal tunnel syndrome, right upper limb 4 views right hand plain film COMPARISON: None HISTORY: Right hand pain for 6 months ACUTE FINDINGS: None DEGENERATIVE CHANGE: Extensive first carpometacarpal degeneration with joint space narrowing. Sclerotic changes. Bony fragmentation. No subluxation. SOFT TISSUE FINDINGS: Unremarkable JOINT EFFUSION: None POSTOP CHANGES: None BONY MINERALIZATION: Adequate XR/XR hand RT min 3V* IMPRESSION: Extensive first carpometacarpal degenerative change Impression dictated by: William Crawford M.D. 05/20/2025 7:47 PM Dictation Location: [place] [address] Transcribed By: [facility] 05/20/251946 Dictated By: William Crawford DO 05/20/251945 Signed By: 05/20/251946 [facility] XR hand RT min 3V*on 025 XR hand RT min 3V* [facility] [address] [place] [address] XRay Report Signed Patient: Dat Lopez Jr MR#: [id number] : 1960 Acct:[id number] Age/Sex: 65 / M ADM Date: 05/20/25 Loc: [facility] Room: Type: [facility] CLI Attending Dr: Shawn Denney DO Copies to: Shawn Denney DO Ordering Provider: Shawn Denney DO Date of Service: 05/20/25 XR/XR hand RT min 3V*: G56.01 - Carpal tunnel syndrome, right upper limb 4 views right hand plain film COMPARISON: None HISTORY: Right hand pain for 6 months ACUTE FINDINGS: None DEGENERATIVE CHANGE: Extensive first carpometacarpal degeneration with joint space narrowing. Sclerotic changes. Bony fragmentation. No subluxation. SOFT TISSUE FINDINGS: Unremarkable JOINT EFFUSION: None POSTOP CHANGES: None BONY MINERALIZATION: Adequate XR/XR hand RT min 3V* IMPRESSION: Extensive first carpometacarpal degenerative change Impression dictated by: William Crawford M.D. 05/20/2025 7:47 PM Dictation Location: [facility] Transcribed By: [facility] 05/20/251946 Dictated By: William Crawford DO 05/20/251945 Signed By: 05/20/251946 Normal [facility] Ambulatory Visit Summaryon 0 05-18-2025 Ambulatory Visit Summary Ambulatory Visit Summary DAT LOPEZ :1960 Visit Date:05/18/2025 Ambulatory Visit Instructions Your Diagnosis History of bladder cancer BPH with obstruction/lower urinary tract symptoms Elevated PSA Kidney stones History of kidney stones Erectile dysfunction Your Care Team Attending Physician - Pelon COLES MD Primary Care Physician - SP CHOWDARY DO This Is Your Medications List tadalafil (tadalafil 20 mg Tab) Contact prescribing physician if questions or concerns amlodipine gabapentin insulin aspart (NovoLog) insulin glargine (Basaglar KwikPen) losartan metformin metoprolol (metoprolol 50 mg ER Tab) multivitamin with minerals (Multivitamins and Minerals) pantoprazole (Pantoprazole [address] Tab) pravastatin sertraline tirzepatide (Mounjaro 2.5 mg/0.5 mL subcutaneous solution) [Image Removed: STOP]Stop taking these medications ciprofloxacin (Cipro 500 mg Tab) doxycycline (doxycycline hyclate 100 mg Cap) Procedures Performed Transrectal biopsy of prostate using ultrasound guidance (11/27/2023), Colonoscopy (10/31/2023), EGD - esophagogastroduodenoscopy (10/31/2023), Cystoscopy (08/30/2021), Cystoscopy (08/24/2020), Cystoscopy (12/16/2019), Colonoscopy (09/2019), Colonoscopy (10/2017), Biopsy of prostate (2016), bladder tumor (2006), right leg bone tumor (2001), ankle surgery, Lithotripsy, Transurethral water vapour ablation of prostate. Discharge Vitals Heart Rate (Peripheral) 68 Blood Pressure 128/70 Height 177 cm Height 70 in Weight 102.5 kg Weight 225.974 lb BMI 32.72 What to do next Scheduled Follow-Up Appointments Sunday 10:15 AM EST With: Pelon COLES MD Where: [facility] [address] [facility] [place] [address]- You Need to Schedule the Following Appointments Follow Up with Pelon COLES MD, URL When: Where: [facility] [address], [facility]3[place] [address]- [phone] Medications What How Much When Instructions Unchanged tadalafil (tadalafil 20 mg Tab) 1 Tablets By Mouth Every day as needed for for erectile dysfunction Take a half tab 1 hour prior to sexual activity. Do not exceed 20mg in 24 hours. Unchanged amlodipine 5 Milligram By Mouth Every day Contact prescribing physician if questions or concerns Unchanged gabapentin 100 Milligram By Mouth 3 times a day Contact prescribing physician if questions or concerns Unchanged insulin aspart (NovoLog) as directed Contact prescribing physician if questions or concerns Unchanged insulin glargine (Basaglar KwikPen) Contact prescribing physician if questions or concerns Unchanged losartan 100 Milligram By Mouth Every day Contact prescribing physician if questions or concerns Unchanged metformin 1,000 Milligram By Mouth Every day Contact prescribing physician if questions or concerns Unchanged metoprolol (metoprolol 50 mg ER Tab) 1 Tablets By Mouth Every day Contact prescribing physician if questions or concerns Unchanged multivitamin with minerals (Multivitamins and Minerals) 1 tablet By Mouth Every day Contact prescribing physician if questions or concerns Unchanged pantoprazole (Pantoprazole [address] Tab) 1 Tablets By Mouth Every day FOR 8 WEEKS Contact prescribing physician if questions or concerns Unchanged pravastatin 40 Milligram By Mouth Every day Contact prescribing physician if questions or concerns Unchanged sertraline 100 Milligram By Mouth 2 times a day Contact prescribing physician if questions or concerns Unchanged tirzepatide (Mounjaro 2.5 mg/ 0.5 mL subcutaneous solution) Contact prescribing physician if questions or concerns What How Much When Comments Stop Taking ciprofloxacin (Cipro 500 mg Tab) 1 Tablets By Mouth Every day Take 1 tablet the day before the procedure and 1 tablet after the procedure Stop Taking doxycycline (doxycycline hyclate 100 mg Cap) 1 Capsules By Mouth Every day Start the day before the procedure Medications and Immunizations Administered Given lidocaine Top 2% Gel w/Appl 6 mL, 6 mL, Topical. For: History of bladder cancer Allergies Cipro (Joint pain) Actos (Rash) Byetta Prefilled Pen (Nausea and vomiting) Valium (Nausea and vomiting) morphine (Itchy) Problems Ongoing - Any problem that you are currently receiving treatment for. Abdominal bloating Acute prostatitis with hematuria Anemia Antral ulcer Arthritis Benign neoplasm of ascending colon Bladder cancer BMI 33.0-33.9,adult BPH with obstruction/lower urinary tract symptoms Chronic kidney disease Clot retention of urine Depression Diabetes mellitus, type 2 Elevated PSA Erectile dysfunction GERD with esophagitis Gross hematuria History of bladder cancer History of colon polyps History of kidney stones Hyperlipidemia Hyperparathyroidism Hypertension Kidney stones Lumbar spondylosis Obe (more content not included)... Normal [facility] UroVysion Fish and Urine Cyt o (P4 Labs)on 05-18-2025 [facility] Method of Extraction Voided Normal [facility] Comment on above: Performed By: #### 1 [id number] #### [facility] [address] [place] [address] [facility] Number of Jars 1 Invalid Interpretation Code [facility] Comment on above: Performed By: #### 1 [id number] #### [facility] [address] [place] [address] [facility] Specimen Urine Normal [facility] Comment on above: Performed By: #### 1 [id number] #### [facility] [address] [place] [address] [facility] Type of Service Technical Only Normal [facility] Comment on above: Performed By: #### 1 [id number] #### [facility] [address] [place] [id number] Urology Office/Clinic Noteon 05-18-2025 Urology Office/Clinic Note Urology Office/Clinic Note Chief Complaint pt here for cysto HPI Staff 64yr old male pt here for CYSTO/ needs FISH/CYTO. recheck PSA & JANE Previous Dx: clot retention of urine, acute prostatitis with hematuria, elevated PSA, BPH with obstruction/lower urinary tract symptoms, kidney stones, ED, history of bladder cancer *tadalafil 10mg qod prn needs refill sent to [facility] in [place] PSA: 04/15/21 - 12.82 02/18/22 - 13.80 12/05/22 - 10.5 & 28.4% 05/11/25 - 20.9 & 17.7% (3.69) denies pain/burning denies visible blood denies flank History of Present Illness Tests reviewed: reviewed PSA I have reviewed the previous health record [...] Physical Exam Vitals & Measurements HR: 68(Peripheral) BP: 128/70 HT: 70 in HT: 177 cm WT: 225.974 lb WT: 102.5 kg BMI: 32.72 General Appearance: alert, no distress, well nourished, well developed male. Procedure Operative Information Anesthesia Type: Local Procedure: Local Cystoscopy Complications: None Surgical risks, benefits, details of the procedure have been explained to the patient. Full informed consent has been obtained. Intraoperative Information Prepped: Patient is brought back to the endoscopy suite. Patient is placed in supine position. Patient prepped in the usual fashion with Betadine solution. 2% Xylocaine Jelly is placed per Urethra. After waiting several minutes, the Cystoscope is introduced. The Urethra is: Normal The Prostatic Urethra is: Long, obstructing lateral lobes. Median lobe protrudes into prostate. On retroflexion, there is a ~1cm stone adhered to underside of prostate with varicosities. The Bladder: On the back wall, there is a 2mm vascular abnormality? possible start of a tumor. , Trabeculated: Severe (3) The Ureteral orifices: Show efflux of clear urine Specimens Removed: Voided specimen sent for FISH and Cytology test Removal: Cystoscope is removed. The patient tolerated it well. Postoperative Information Patient is discharged home with antibiotic coverage. Follow up arranged. Assessment/Plan 1. History of bladder cancer (Z85.51: Personal history of malignant neoplasm of bladder) Last TURBT was in 2006. Cysto/Cytol 06/12/23 - neg. S/p Cysto, Clot evacuation 05/06/24 - No evidence of tumors or stones. [1] CTU 05/12/24 [facility] - Thickened bladder wall measuring up to 9.8 mm. No renal masses noted. Pt had IO cysto to check for bladder tumor recurrence without complications today. Pt took prophylactic abx prior to procedure. Will send voided specimen for FISH/cytol and call pt if positive. Cysto today was negative for recurrence. -Surveillance Cysto/FISH/Cytol in 1 yr 2. BPH with obstruction/lower urinary tract symptoms (N40.1: Benign prostatic hyperplasia with lower urinary tract symptoms) S/p Rezum 12/2019. S/p Cysto 06/12/23 - Moderate prostatic hypertrophy with long lateral lobes. Visually enlarged and nearly touching each other. Part of median lobe protrudes into the bladder. Pt was scheduled to have TURP 08/2024 but canceled given urinary sxs improved. Not currently taking any BPH meds. No issues w urination. -Cont sx monitoring -Consider aqua ablation vs PAE vs TURP 3. Elevated PSA (R97.20: Elevated prostate specific antigen [PSA]) PSA: 04/15/21 - 12.82 02/18/22 - 13.80 12/05/22 - 10.5 & 28.4% 02/11/25 - 20.03 05/11/25 - 20.9 & 17.7% Neg TRUS/bx 2016. Had neg MRI done 2018 and 04/20/22. JANE 03/13/22: nodule at R mid base MRI of Prostate 09/11/23 - PI-RADS 4, focal area involving the posterior lateral aspect of the Rt peripheral zone at the level of the base measuring 9x4mm, no gross extracapsular extension seen. Prostate volume 140 mL. S/p TRUS/bx 11/27/23 - benign. PSA remains stable compared to prior. High level can be attributed to large prostate size. Will cont to monitor. -F/u in 6mos w/ PSA F&T 4. Kidney stones (N20.0: Calculus of kidney) KUB 02/22/23 - A few tiny stones in the L kidney. CTU 05/12/24 [facility] - L nephrolithiasis. 3 mm proximal ureterolith. [2] -Passed a stone over summer 2023 5. History of kidney stones (Z87.442: Personal history of urinary calculi) S/p cysto/L UD/L ureteroscopy/Holmium laser litho of L ureteral calculus and mult renal calculus/stone basket extraction/stent change done 06/08/22 (more content not included)... Normal [facility] Comment on above: Result Comment: Elec tronically Signed By: Pelon COLES MD\.br\Date and Time Signed: 05/18/25 08:56 EDT\.br\Electronically Co-Signed By: Sahra Daugherty\.br\Date and Time Co-Signed: 05/18/25 08:52 EDT No Panel InformationOrdered By: Pelon Coles on 05-11-2025 Free Prostate Specific Antigen 3.69 ng/mL N/A [facility] Comment on above: [place] ECLIA methodol ogy. Prostate Specific Antigen Total 20.9 ng/mL Abnormal 0.0-4.0 [facility] Comment on above: [place] ECLIA methodol ogy.According to the [employer], Serum PSAshould decrease and remain at undetectable levels afterradical prostatectomy. The AUA defines biochemicalrecurrence as an initial PSA value 0.2 ng/mL or greaterfollowed by a subsequent confirmatory PSA value 0.2 ng/mLor greater. Values obtained with different assay methods orkits cannot be used interchangeably. Results cannot beinterpreted as absolute evidence of the presence or absenceof malignant disease. Serum or plasma free prostat e specific antigen (PSA)/total PSA ratioOrdered By: Pelon Coles on 05-11-2025 Free PSA/Total PSA [Mass fraction] 17.7 % . [facility] Comment on above: The table below list s the probability of prostate cancer formen with non-suspicious JANE results and total PSA between4 and 10 ng/mL, by patient age (Shahram et al, MAL 1998,279:1542). % Free PSA 50-64 yr 65-75 yr 0.00-10.00% 56% 55% 10.01-15.00% 24% 35% 15.01-20.00% 17% 23% 20.01-25.00% 10% 20% >25.00% 5% 9%Please note: Shahram et al did not make specific recommendations regarding the use of percent free PSA for any other population of men.Performed at: [facility] [id number] Director: Amor Ortega PhD, Phone: [phone] Reminderson 04-03-2025 Reminders Reminders From: Nelida Ortiz To: EU - Recalls Sanket; Sent: 04/03/2025 10:04:51 EDT Show up: 01/17/2026 10:04:00 EST Subject: cysto/fish/cytol Due Date/Time: 02/15/2026 10:04:00 EDT Reminder/Recall Patient si due in April 2026 for 1 year cysto/fish/cytol, PSA/jane, bt ck Normal [facility] Reminders Reminders From: Nelida Ortiz To: EU - Recalls Sanket; Sent: 07/10/2024 12:52:30 EDT Show up: 02/17/2025 12:52:00 EDT Subject: Cysto/fish/cytol Due Date/Time: 03/09/2025 12:52:00 EDT Reminder/Recall Pt needs sched for yearly Cysto/fish/cytol/PSA/JANE april 2025 l/m on home machine. LG Patient scheduled for 05/18/25.LG Normal [facility] Ambulatory Visit Summaryon 0 02-27-2025 Ambulatory Visit Summary Ambulatory Visit Summary DAT LOPEZ :1960 Visit Date:02/27/2025 Ambulatory Visit Instructions Your Care Team Attending Physician - SANKET PRECIADOPelon Primary Care Physician - SP CHOWDARY DO This Is Your Medications List amlodipine gabapentin insulin aspart (NovoLog) insulin glargine (Basaglar KwikPen) losartan metformin metoprolol (metoprolol 50 mg ER Tab) multivitamin with minerals (Multivitamins and Minerals) pantoprazole (Pantoprazole [address] Tab) pravastatin sertraline tadalafil (tadalafil 20 mg Tab) tirzepatide (Mounjaro 2.5 mg/0.5 mL subcutaneous solution) Procedures Performed Transrectal biopsy of prostate using ultrasound guidance (11/27/2023), Colonoscopy (10/31/2023), EGD - esophagogastroduodenoscopy (10/31/2023), Cystoscopy (08/30/2021), Cystoscopy (08/24/2020), Cystoscopy (12/16/2019), Colonoscopy (09/2019), Colonoscopy (10/2017), Biopsy of prostate (2016), bladder tumor (2006), right leg bone tumor (2001), ankle surgery, Lithotripsy, Transurethral water vapour ablation of prostate. What to do next Scheduled Follow-Up Appointments Sunday 10:30 AM EDT With: ePlon COLES MD Where: [facility] [address] Medications What How Much When Instructions Unchanged amlodipine 5 Milligram By Mouth Every day Unchanged gabapentin 100 Milligram By Mouth 3 times a day Unchanged insulin aspart (NovoLog) as directed Unchanged insulin glargine (Basaglar KwikPen) Unchanged losartan 100 Milligram By Mouth Every day Unchanged metformin 1,000 Milligram By Mouth Every day Unchanged metoprolol (metoprolol 50 mg ER Tab) 1 Tablets By Mouth Every day Unchanged multivitamin with minerals (Multivitamins and Minerals) 1 tablet By Mouth Every day Unchanged pantoprazole (Pantoprazole [address] Tab) 1 Tablets By Mouth Every day FOR 8 WEEKS Unchanged pravastatin 40 Milligram By Mouth Every day Unchanged sertraline 100 Milligram By Mouth 2 times a day Unchanged tadalafil (tadalafil 20 mg Tab) 1 Tablets By Mouth Every day as needed for for erectile dysfunction Take a half tab 1 hour prior to sexual activity. Do not exceed 20mg in 24 hours. Unchanged tirzepatide (Mounjaro 2.5 mg/ 0.5 mL subcutaneous solution) Allergies Actos (Rash) Byetta Prefilled Pen (Nausea and vomiting) Valium (Nausea and vomiting) morphine (Itchy) Problems Ongoing - Any problem that you are currently receiving treatment for. Abdominal bloating Acute prostatitis with hematuria Anemia Antral ulcer Arthritis Benign neoplasm of ascending colon Bladder cancer BMI 33.0-33.9,adult BPH with obstruction/lower urinary tract symptoms Chronic kidney disease Clot retention of urine Depression Diabetes mellitus, type 2 Elevated PSA Erectile dysfunction GERD with esophagitis Gross hematuria History of bladder cancer History of colon polyps History of kidney stones Hyperlipidemia Hyperparathyroidism Hypertension Kidney stones Lumbar spondylosis Obesity KUNAL (obstructive sleep apnea) Personal history of colonic polyps Polyneuropathy due to type 2 diabetes mellitus POTS (postural orthostatic tachycardia syndrome) Prostate nodule Urinary retention Urine retention Patient Survey You may receive a survey via text or e-mail asking about your office visit. Please share your experience with us by completing your survey. We appreciate your feedback and thank you for choosing us for your care. Normal [facility] Basophils Auto (Bld) [#/Vol] on 02-11-2025 Basophils (Bld) [#/Vol] Automated basophil count 0.0-0.1 [facility] Basophils/100 WBC Auto (Bld) on 02-11-2025 Basophils/100 WBC (Bld) Automated basophil % 0.2-2.0 [facility] Cholesterol in LDL Calc [Mas s/Vol]on 02-11-2025 Cholesterol in LDL [Mass/Vol] Cholesterol in LDL [Mass/volume] in Serum or Plasma by calculation [facility] Comment on above: <100 mg/dl [id number] 0-129 mg/dl NEAR OR ABOVE [id number] mg/dl BORDERLINE [id number] mg/dl HIGH>190 mg/dl VERY HIGH Cholesterol in VLDL Calc [Ma ss/Vol]on 02-11-2025 Cholesterol in VLDL [Mass/Vol] Cholesterol in VLDL [Mass/volume] in Serum or Plasma by calculation [facility] Eosinophils/100 WBC Auto (Bl d)on 02-11-2025 Eosinophils/100 WBC (Bld) Automated eosinophil % 0.9-7.0 [facility] Erythrocyte distribution wid th Auto (RBC) [Ratio]on 02-11-2025 Erythrocyte distribution width (RBC) [Ratio] Erythrocyte distribution width [Ratio] by Automated count 11.0-15.0 [facility] Estimated glomerular filtrat ion rate (GFR) non- Americanon 02-11-2025 GFR/1.73 sq M.predicted among non-blacks MDRD (S/P/Bld) [Vol rate/Area] Estimated glomerular filtration rate (GFR) non- Low >=60 mL/min/1.7 3m 2 [facility] Globulin Calc (S) [Mass/Vol] on 02-11-2025 Globulin (S) [Mass/Vol] Serum globulin measurement by calculation (mass/volume) [facility] Glucose mean value [Mass/vol ume] in Blood Estimated from glycated hemoglobinon 02-11-2025 Average glucose Estimated from glycated hemoglobin (Bld) [Mass/Vol] Glucose mean value [Mass/volume] in Blood Estimated from glycated hemoglobin [facility] Hematocrit Auto (Bld) [Volum e fraction]on 02-11-2025 Hematocrit (Bld) [Volume fraction] Hematocrit [Volume Fraction] of Blood by Automated count Low 42.0-54.0 [facility] Hemoglobin A1c percentageon 02-11-2025 HbA1c (Bld) [Mass fraction] Hemoglobin A1c percentage High 4.5-6.2 [facility] Comment on above: ADA RECOMMENDED LIMI T 4.0 - 6.0ADA THERAPEUTIC TARGET < 7.0ACTION SUGGESTED> 7.0 Hemoglobin [Mass/volume] in Bloodon 02-11-2025 Hemoglobin (Bld) [Mass/Vol] Hemoglobin [Mass/volume] in Blood Low 14.0-18.0 [facility] Laboratory - Chemistry and C hemistry - challengeon 02-11-2025 Albumin [Mass/Vol] 3.7 g/dL 3.4-5.0 [facility] ALP [Catalytic activity/Vol] 102 U/L 46-116 [facility] ALT [Catalytic activity/Vol] 23 U/L 16-63 [facility] AST [Catalytic activity/Vol] 16 U/L 15-37 [facility] Bilirubin [Mass/Vol] 0.3 mg/dL 0.2-1.0 [facility] Calcium [Mass/Vol] 8.9 mg/dL 8.5-10.1 [facility] Chloride [Moles/Vol] 107 mmol/L 98-107 [facility] Cholesterol [Mass/Vol] 104 mg/dL <=200 [facility] Cholesterol in HDL [Mass/Vol] 35 mg/dL Low 40-60 [facility] Comment on above: > or =60 mg/dl - LOW CARDIOVASCULAR RISK<40 mg/dl - HIGH CARDIOVASCULAR RISK CO2 [Moles/Vol] 29.9 mmol/L 21.0-32.0 [facility] Creatinine [Mass/Vol] 1.28 mg/dL 0.70-1.30 [facility] GFR/1.73 sq M.predicted MDRD (S/P/Bld) [Vol rate/Area] mL/min/{1.73_m2} >=60 mL/min/1.7 3m 2 [facility] Glucose [Mass/Vol] 124 mg/dL High 74-106 [facility] Potassium [Moles/Vol] 4.8 mmol/L 3.5-5.1 [facility] Protein [Mass/Vol] 6.5 g/dL 6.4-8.2 [facility] Sodium [Moles/Vol] 142 mmol/L 136-145 [facility] Triglyceride [Mass/Vol] 141 mg/dL <=150 [facility] TSH Qn 1.526 m[IU]/L 0.358-3.74 0 [facility] Urea nitrogen [Mass/Vol] 16.0 mg/dL 7.0-18.0 [facility] Urea nitrogen/Creatinine [Mass ratio] 12.5 mg/mg [facility] Laboratory - Hematology and Cell countson 02-11-2025 Immature granulocytes/100 WBC (Bld) 0.6 % High 0.0-0.5 [facility] Leukocytes [#/volume] correc bhanu for nucleated erythrocytes in Blood by Automated counon 02-11-2025 WBC corrected for nucl RBC Auto (Bld) [#/Vol] Leukocytes [#/volume] corrected for nucleated erythrocytes in Blood by Automated coun 4.0-11.0 [facility] Lymphocytes Auto (Bld) [#/Vo l]on 02-11-2025 Lymphocytes (Bld) [#/Vol] Lymphocytes [#/volume] in Blood by Automated count 1.2-3.8 [facility] Lymphocytes/100 WBC Auto (Bl d)on 02-11-2025 Lymphocytes/100 WBC (Bld) Lymphocytes/100 leukocytes in Blood by Automated count 20.5-60.0 [facility] MCH Auto (RBC) [Entitic mass ]on 02-11-2025 MCH (RBC) [Entitic mass] MCH [Entitic mass] by Automated count 25.9-34.0 [facility] MCHC Auto (RBC) [Mass/Vol]on 02-11-2025 MCHC (RBC) [Mass/Vol] MCHC [Mass/volume] by Automated count 29.9-35.2 [facility] MCV Auto (RBC) [Entitic vol] on 02-11-2025 MCV (RBC) [Entitic vol] MCV [Entitic volume] by Automated count 80.0-94.0 [facility] Microalbumin [Mass/volume] i n Urineon 02-11-2025 Albumin DL <= 20 mg/L (U) [Mass/Vol] Microalbumin [Mass/volume] in Urine <=30.0 [facility] Monocytes Auto (Bld) [#/Vol] on 02-11-2025 Monocytes (Bld) [#/Vol] Automated blood monocyte count 0.3-0.8 [facility] Monocytes/100 WBC Auto (Bld) on 02-11-2025 Monocytes/100 WBC (Bld) Automated monocyte % 1.7-12.0 [facility] Neutrophils Auto (Bld) [#/Vo l]on 02-11-2025 Neutrophils (Bld) [#/Vol] Neutrophils [#/volume] in Blood by Automated count 1.4-6.5 [facility] Neutrophils/100 WBC Auto (Bl d)on 02-11-2025 Neutrophils/100 WBC (Bld) Automated neutrophil % 43.0-75.0 [facility] No Panel Informationon 02-11 Eosinophils # (Auto) 0.3 10 3/uL 0.0-0.7 [facility] Immature Granulocyte # (Auto) 0.03 10 3/uL 0.00-0.03 [facility] Prostate Specific Antigen Total 20.03 ng/mL High <=4.00 [facility] Urine Random Creatinine 91.93 mg/dL 20.00-300. 00 [facility] Platelet mean volume Auto (B ld) [Entitic vol]on 02-11-2025 Platelet mean volume (Bld) [Entitic vol] Platelet mean volume [Entitic volume] in Blood by Automated count Low 9.5-13.5 [facility] Platelets Auto (Bld) [#/Vol] on 02-11-2025 Platelets (Bld) [#/Vol] Platelets [#/volume] in Blood by Automated count Low 150-450 [facility] RBC Auto (Bld) [#/Vol]on RBC (Bld) [#/Vol] Erythrocytes [#/volu me] in Blood by Automated count 4.70-6.10 [facility] Serum or plasma albumin/glob ulin mass ratioon 02-11-2025 Albumin/Globulin [Mass ratio] Serum or plasma albumin/globulin mass ratio [facility] Serum or plasma anion gap de terminationon 02-11-2025 Anion gap [Moles/Vol] Serum or plasma anion gap determination [facility] Serum or plasma total choles terol/high density lipoprotein (HDL) cholesterol mass pebbles 02-11-2025 Cholesterol.total/Ch olesterol in HDL [Mass ratio] Serum or plasma total cholesterol/high density lipoprotein (HDL) cholesterol mass rat [facility] Comment on above: 3.3 - 4.4 LOW RISK4. 4 - 7.1 AVERAGE RISK7.1 - 11.0 MODERATE RISK>11.0 HIGH RISK Urine microalbumin/creatinin e mass ratioon 02-11-2025 Albumin/Creatinine DL <= 20 mg/L (U) [Mass ratio] Urine microalbumin/creatinine mass ratio High 0.0-29.9 [facility] Comment on above: NO MICROALBUMINURIA 0-29 MG/GCLINICAL MICROALBUMINURIA 30-300 MG/GMACROALBUMINURIA >300 MG/G Ambulatory Visit Summaryon 0 12-15-2024 Ambulatory Visit Summary Ambulatory Visit Summary DAT LOPEZ :1960 Visit Date:12/15/2024 Ambulatory Visit Instructions Your Diagnosis BPH with obstruction/lower urinary tract symptoms Elevated PSA Gross hematuria Kidney stones History of kidney stones Erectile dysfunction History of bladder cancer Your Care Team Attending Physician - Pelon COLES MD Primary Care Physician - SP CHOWDARY DO This Is Your Medications List tadalafil (tadalafil 20 mg Tab) Contact prescribing physician if questions or concerns amlodipine gabapentin insulin aspart (NovoLog) insulin glargine (Basaglar KwikPen) losartan metformin metoprolol (metoprolol 50 mg ER Tab) multivitamin with minerals (Multivitamins and Minerals) pantoprazole (Pantoprazole [address] Tab) pravastatin sertraline tirzepatide (Mounjaro 2.5 mg/0.5 mL subcutaneous solution) Procedures Performed Transrectal biopsy of prostate using ultrasound guidance (11/27/2023), Colonoscopy (10/31/2023), EGD - esophagogastroduodenoscopy (10/31/2023), Cystoscopy (08/30/2021), Cystoscopy (08/24/2020), Cystoscopy (12/16/2019), Colonoscopy (09/2019), Colonoscopy (10/2017), Biopsy of prostate (2016), bladder tumor (2006), right leg bone tumor (2001), ankle surgery, Lithotripsy, Transurethral water vapour ablation of prostate. Discharge Vitals Temperature (Oral) 36.4 ???C Blood Pressure 128/82 Height 177.0 cm Height 70 in Weight 102.0 kg Weight 224.871 lb BMI 32.56 What to do next Scheduled Follow-Up Appointments Sunday 10:30 AM EDT With: Pelon COLES MD Where: [facility] [address] [place] [address]- You Need to Schedule the Following Appointments Follow Up with Pelon COLES MD, URL When: Comments: 6 mos w/ PSA Where: [facility] [address] , [place] [address]- [phone] Medications What How Much When Instructions Changed tadalafil (tadalafil 20 mg Tab) 1 Tablets By Mouth Every day as needed for for erectile dysfunction Take a half tab 1 hour prior to sexual activity. Do not exceed 20mg in 24 hours. Pickup at [facility] [phone] Unchanged amlodipine 5 Milligram By Mouth Every day Contact prescribing physician if questions or concerns Unchanged gabapentin 100 Milligram By Mouth 3 times a day Contact prescribing physician if questions or concerns Unchanged insulin aspart (NovoLog) as directed Contact prescribing physician if questions or concerns Unchanged insulin glargine (Basaglar KwikPen) Contact prescribing physician if questions or concerns Unchanged losartan 100 Milligram By Mouth Every day Contact prescribing physician if questions or concerns Unchanged metformin 1,000 Milligram By Mouth Every day Contact prescribing physician if questions or concerns Unchanged metoprolol (metoprolol 50 mg ER Tab) 1 Tablets By Mouth Every day Contact prescribing physician if questions or concerns Unchanged multivitamin with minerals (Multivitamins and Minerals) 1 tablet By Mouth Every day Contact prescribing physician if questions or concerns Unchanged pantoprazole (Pantoprazole [address] Tab) 1 Tablets By Mouth Every day FOR 8 WEEKS Contact prescribing physician if questions or concerns Unchanged pravastatin 40 Milligram By Mouth Every day Contact prescribing physician if questions or concerns Unchanged sertraline 100 Milligram By Mouth 2 times a day Contact prescribing physician if questions or concerns Unchanged tirzepatide (Mounjaro 2.5 mg/ 0.5 mL subcutaneous solution) Contact prescribing physician if questions or concerns Pharmacy Information [facility] [id number]: [address] [place], [place] [phone] Allergies Actos (Rash) Byetta Prefilled Pen (Nausea and vomiting) Valium (Nausea and vomiting) morphine (Itchy) Problems Ongoing - Any problem that you are currently receiving treatment for. Abdominal bloating Acute prostatitis with hematuria Anemia Antral ulcer Arthritis Benign neoplasm of ascending colon Bladder cancer BMI 33.0-33.9,adult BPH with obstruction/lower urinary tract symptoms Chronic kidney disease Clot retention of urine Depression Diabetes mellitus, type 2 Elevated PSA Erectile dysfunction GERD with esophagitis Gross hematuria History of bladder cancer History of colon polyps History of kidney stones Hyperlipidemia Hyperparathyroidism Hypertension Kidney stones Lumbar spondylosis Obesity KUNAL (obstructive sleep apnea) Personal history of colonic polyps Polyneuropathy due to type 2 diabetes mellitus POTS (postural orthostatic tachycardia syndrome) Prostate nodule Urinary retention Urine retention Patient Survey You may receive a survey via text or e-mail asking about your office visit. Please share your experience with us by completing your survey. We appreciate your feedb (more content not included)... Normal [facility] Urology Office/Clinic Noteon 12-15-2024 Urology Office/Clinic Note Urology Office/Clinic Note Chief Complaint 1 year f/u HPI Staff 64yr old male pt here for 1yr f/u visit with PSA and JANE. S/p cysto with clot evacuation 05/06/24. CT abdomen/pelvis done 05/12/24. Previous Dx: clot retention of urine, acute prostatitis with hematuria, elevated PSA, BPH with obstruction/lower urinary tract symptoms, kidney stones, ED, history of bladder cancer *tadalafil 10mg qod prn PSA: 04/15/21 - 12.82 02/18/22 - 13.80 12/05/22 - 10.5 & 28.4% He did not get last years drawn because of his parostitis Dysuria: denies Incomplete bladder emptying: denies Hematuria: denies Frequency: 3-4 x daily Urgency: denies Nocturia: denies Stream: denies Leaking: _denies Post void dripping: denies Wearing pads/ Depends: denies Urge incontinence: _denies Stress incontinence: _denies Incontinence without Sensory Awareness: _denies Abdominal pain: _denies Flank pain: _denies Sexual complaints: NA Needs refills on Tadalafil History of Present Illness Tests reviewed: reviewed UA, operative note I have reviewed the previous health record information and history for this patient from Dr. Coles. I have reviewed and verified the staff HPI to be accurate for this encounter. Review of Systems PHQ Score Initial Depression Screen Score: 1 SCORE ROS - Provider Constitutional: denies weight [...] HPI. Physical Exam Vitals & Measurements T: 36.4 ???C(Oral) BP: 128/82 HT: 70 in HT: 177.0 cm WT: 102.0 kg WT: 224.871 lb BMI: 32.56 General Appearance: alert, no distress, well nourished, well developed male. Assessment/Plan 1. BPH with obstruction/lower urinary tract symptoms (N40.1: Benign prostatic hyperplasia with lower urinary tract symptoms) S/p Rezum 12/2019. S/p Cysto 06/12/23 - Moderate prostatic hypertrophy with long lateral lobes. Visually enlarged and nearly touching each other. Part of median lobe protrudes into the bladder. Pt was scheduled to have TURP 08/2024 but canceled given urinary sxs improved. Not currently taking any BPH meds. Feels he empties. Stream is not as strong. Discussed alternative operative intervention to TURP including PAE and its risks/benefits. Recommended pt to do some research on this and think about options. -Cont sx monitoring -Consider TURP vs PAE 2. Elevated PSA (R97.20: Elevated prostate specific [...] 140 mL. S/p TRUS/bx 11/27/23 - benign. -F/u in 6 mos w/ PSA 3. Gross hematuria (R31.0: Gross hematuria) S/p Cysto, Clot evacuation 05/06/24 - No evidence of tumors or stones. CTU 05/12/24 [facility] - Thickened bladder wall measuring up to 9.8 mm. No renal masses noted. Denies gross hematuria since occurrence in 04/2024. UA today negative for blood. -Cont sx monitoring 4. Kidney stones (N20.0: Calculus of kidney) KUB 02/22/23 - A few tiny stones in the L kidney. CTU 05/12/24 [facility] - L nephrolithiasis. 3 mm proximal ureterolith. Shares he passed a stone over the summer wo issues. 5. History of kidney stones (Z87.442: Personal history of urinary calculi) S/p cysto/L UD/L ureteroscopy/Holmium laser litho of L ureteral calculus and mult renal calculus/stone basket extraction/stent change done 06/08/22. Perc neph done also. 24 hr urine done 10/19/22: low citric acid, slightly elevated ox, slightly elevated urine Na. [1] 6. Erectile dysfunction (N52.9: Male erectile dysfunction, unspecified) Taking Tadalafil 10mg prn. No concerns with this. -Cont Tadalafil 10mg (rx sent to 20mg half tab). 7. History of bladder cancer (Z85.51: Personal history of malignant neoplasm of bladder) Last TURBT was in 2006. Cysto/Cytol 06/12/23 - neg. S/p Cysto, Clot evacuation 05/06/24 - No evidence of tumors or stones. Follow-up With When Contact Information Pelon COLES MD, URL [facility] [address], [place] [address] [phone] Additional Instructions: 6 mos w/ PSA Patient Education Prostate Cancer Screening Benign Prostatic Hyperplasia I, Sahra Daugherty, personally scribed for Dr. Coles on 12/15/2024 15:01:03. . Documentation recorded by the Sahra garcia, accramón (more content not included)... Normal [facility] Comment on above: Result Comment: Elec tronically Signed By: Pelon COLES MD\.br\Date and Time Signed: 12/15/24 15:03 EST\.br\Electronically Co-Signed By: Sahra Daugherty\.br\Date and Time Co-Signed: 12/15/24 15:01 EST Activated partial thrombopla stin time (aPTT) in platelet poor plasma by coagulation aon 06-10-2024 aPTT Coag (PPP) [Time] 32.2 s 22.3-36.2 [facility] Basophils Auto (Bld) [#/Vol] on 06-10-2024 Basophils (Bld) [#/Vol] 0.0 10 3/uL 0.0-0.1 [facility] Basophils/100 WBC Auto (Bld) on 06-10-2024 Basophils/100 WBC (Bld) 0.2 % 0.2-2.0 [facility] Eosinophils/100 WBC Auto (Bl d)on 06-10-2024 Eosinophils/100 WBC (Bld) 2.9 % 0.9-7.0 [facility] Erythrocyte distribution wid th Auto (RBC) [Ratio]on 06-10-2024 Erythrocyte distribution width (RBC) [Ratio] 13.4 % 11.0-15.0 [facility] Estimated glomerular filtrat ion rate (GFR) non- Americanon 06-10-2024 GFR/1.73 sq M.predicted among non-blacks MDRD (S/P/Bld) [Vol rate/Area] 56 mL/min/{1.73_m2} Low >=60 [facility] Hematocrit Auto (Bld) [Volum e fraction]on 06-10-2024 Hematocrit (Bld) [Volume fraction] 37.2 % Low 42.0-54.0 [facility] Hemoglobin [Mass/volume] in Bloodon 06-10-2024 Hemoglobin (Bld) [Mass/Vol] 12.4 g/dL Low 14.0-18.0 [facility] INR in Platelet poor plasma by Coagulation assayon 06-10-2024 INR Coag (PPP) [Relative time] 0.99 {INR} [facility] Comment on above: DESIRED INR:2.0-3.0 CONDITIONS NOT LISTED BELOW2.5-3.5 FOR PROSTHETIC HEART VALVE REPLACEMENT2.5-3.5 RECURRENT THROMBOSIS Laboratory - Chemistry and C hemistry - challengeon 06-10-2024 Calcium [Mass/Vol] 9.1 mg/dL 8.5-10.1 [facility] Chloride [Moles/Vol] 103 mmol/L 98-107 [facility] CO2 [Moles/Vol] 26.3 mmol/L 21.0-32.0 [facility] Creatinine [Mass/Vol] 1.30 mg/dL 0.70-1.30 [facility] GFR/1.73 sq M.predicted MDRD (S/P/Bld) [Vol rate/Area] mL/min/{1.73_m2} >=60 [facility] Glucose [Mass/Vol] 99 mg/dL 74-106 [facility] Potassium [Moles/Vol] 4.2 mmol/L 3.5-5.1 [facility] Sodium [Moles/Vol] 140 mmol/L 136-145 [facility] Urea nitrogen [Mass/Vol] 26.0 mg/dL High 7.0-18.0 [facility] Urea nitrogen/Creatinine [Mass ratio] 20.0 mg/mg [facility] Laboratory - Hematology and Cell countson 06-10-2024 Immature granulocytes/100 WBC (Bld) 0.4 % 0.0-0.5 [facility] Leukocytes [#/volume] correc bhanu for nucleated erythrocytes in Blood by Automated counon 06-10-2024 WBC corrected for nucl RBC Auto (Bld) [#/Vol] 8.2 10 3/uL 4.0-11.0 [facility] Lymphocytes Auto (Bld) [#/Vo l]on 06-10-2024 Lymphocytes (Bld) [#/Vol] 1.9 10 3/uL 1.2-3.8 [facility] Lymphocytes/100 WBC Auto (Bl d)on 06-10-2024 Lymphocytes/100 WBC (Bld) 23.1 % 20.5-60.0 [facility] MCH Auto (RBC) [Entitic mass ]on 06-10-2024 MCH (RBC) [Entitic mass] 27.4 pg 25.9-34.0 [facility] MCHC Auto (RBC) [Mass/Vol]on 06-10-2024 MCHC (RBC) [Mass/Vol] 33.3 g/dL 29.9-35.2 [facility] MCV Auto (RBC) [Entitic vol] on 06-10-2024 MCV (RBC) [Entitic vol] 82.3 fL 80.0-94.0 [facility] Monocytes Auto (Bld) [#/Vol] on 06-10-2024 Monocytes (Bld) [#/Vol] 0.7 10 3/uL 0.3-0.8 [facility] Monocytes/100 WBC Auto (Bld) on 06-10-2024 Monocytes/100 WBC (Bld) 8.4 % 1.7-12.0 [facility] Neutrophils Auto (Bld) [#/Vo l]on 06-10-2024 Neutrophils (Bld) [#/Vol] 5.4 10 3/uL 1.4-6.5 [facility] Neutrophils/100 WBC Auto (Bl d)on 06-10-2024 Neutrophils/100 WBC (Bld) 65.0 % 43.0-75.0 [facility] No Panel Informationon 06-10 Eosinophils # (Auto) 0.2 10 3/uL 0.0-0.7 [facility] Immature Granulocyte # (Auto) 0.03 10 3/uL 0.00-0.03 [facility] Platelet mean volume Auto (B ld) [Entitic vol]on 06-10-2024 Platelet mean volume (Bld) [Entitic vol] 9.5 fL 9.5-13.5 [facility] Platelets Auto (Bld) [#/Vol] on 06-10-2024 Platelets (Bld) [#/Vol] 162 10 3/uL 150-450 [facility] Prothrombin time (PT)on 05-20 PT Coag (PPP) [Time] 10.5 s 9.0-11.6 [facility] RBC Auto (Bld) [#/Vol]on RBC (Bld) [#/Vol] 4.52 10 6/uL Low 4.70-6.10 [facility] Serum or plasma anion gap de terminationon 06-10-2024 Anion gap [Moles/Vol] 14.9 mmol/L [facility] Basophils Auto (Bld) [#/Vol] on 05-23-2024 Basophils (Bld) [#/Vol] 0.0 10 3/uL 0.0-0.1 [facility] Basophils/100 WBC Auto (Bld) on 05-23-2024 Basophils/100 WBC (Bld) 0.4 % 0.2-2.0 [facility] Eosinophils/100 WBC Auto (Bl d)on 05-23-2024 Eosinophils/100 WBC (Bld) 5.9 % 0.9-7.0 [facility] Erythrocyte distribution wid th Auto (RBC) [Ratio]on 05-23-2024 Erythrocyte distribution width (RBC) [Ratio] 13.7 % 11.0-15.0 [facility] Estimated glomerular filtrat ion rate (GFR) non- Americanon 05-23-2024 GFR/1.73 sq M.predicted among non-blacks MDRD (S/P/Bld) [Vol rate/Area] 48 mL/min/{1.73_m2} Low >=60 [facility] Hematocrit Auto (Bld) [Volum e fraction]on 05-23-2024 Hematocrit (Bld) [Volume fraction] 38.2 % Low 42.0-54.0 [facility] Hemoglobin [Mass/volume] in Bloodon 05-23-2024 Hemoglobin (Bld) [Mass/Vol] 12.6 g/dL Low 14.0-18.0 [facility] INR in Platelet poor plasma by Coagulation assayon 05-23-2024 INR Coag (PPP) [Relative time] 1.02 {INR} [facility] Comment on above: DESIRED INR:2.0-3.0 CONDITIONS NOT LISTED BELOW2.5-3.5 FOR PROSTHETIC HEART VALVE REPLACEMENT2.5-3.5 RECURRENT THROMBOSIS Laboratory - Chemistry and C hemistry - challengeon 05-23-2024 Calcium [Mass/Vol] 8.5 mg/dL 8.5-10.1 [facility] Chloride [Moles/Vol] 101 mmol/L 98-107 [facility] CO2 [Moles/Vol] 24.0 mmol/L 21.0-32.0 [facility] Creatinine [Mass/Vol] 1.49 mg/dL High 0.70-1.30 [facility] GFR/1.73 sq M.predicted MDRD (S/P/Bld) [Vol rate/Area] 58 mL/min/{1.73_m2} Low >=60 [facility] Glucose [Mass/Vol] 243 mg/dL High 74-106 [facility] Potassium [Moles/Vol] 4.3 mmol/L 3.5-5.1 [facility] Sodium [Moles/Vol] 137 mmol/L 136-145 [facility] Urea nitrogen [Mass/Vol] 26.0 mg/dL High 7.0-18.0 [facility] Urea nitrogen/Creatinine [Mass ratio] 17.4 mg/mg [facility] Bilirubin Ql (U) COLOR INTERFERENCE Abnormal NEGATIVE [facility] Ketones Ql (U) COLOR INTERFERENCE mg/dL Abnormal NEGATIV E [facility] Specific gravity (U) [Rel density] >=1.030 Abnormal 1.005-1.02 5 [facility] Laboratory - Hematology and Cell countson 05-23-2024 Immature granulocytes/100 WBC (Bld) 0.3 % 0.0-0.5 [facility] Laboratory - Specimen inform ationon 05-23-2024 Appearance (U) TURBID Abnormal CLEAR [facility] Comment on above: Clotted Color (U) DK. RED YELLOW [facility] Laboratory - Urinalysison Leukocyte esterase Test strip Ql (U) COLOR INTERFERENCE Abnormal NEGATIVE [facility] Mucus Ql (Urine sed) NONE SEEN NONE SEEN [facility] Nitrite Ql (U) COLOR INTERFERENCE Abnormal NEGATIVE [facility] Protein Ql (U) COLOR INTERFERENCE mg/dL Abnormal NEG/TRA CE [facility] Leukocytes [#/volume] correc bhanu for nucleated erythrocytes in Blood by Automated counon 05-23-2024 WBC corrected for nucl RBC Auto (Bld) [#/Vol] 7.0 10 3/uL 4.0-11.0 [facility] Lymphocytes Auto (Bld) [#/Vo l]on 05-23-2024 Lymphocytes (Bld) [#/Vol] 1.9 10 3/uL 1.2-3.8 [facility] Lymphocytes/100 WBC Auto (Bl d)on 05-23-2024 Lymphocytes/100 WBC (Bld) 26.7 % 20.5-60.0 [facility] MCH Auto (RBC) [Entitic mass ]on 05-23-2024 MCH (RBC) [Entitic mass] 26.9 pg 25.9-34.0 [facility] MCHC Auto (RBC) [Mass/Vol]on 05-23-2024 MCHC (RBC) [Mass/Vol] 33.0 g/dL 29.9-35.2 [facility] MCV Auto (RBC) [Entitic vol] on 05-23-2024 MCV (RBC) [Entitic vol] 81.6 fL 80.0-94.0 [facility] Monocytes Auto (Bld) [#/Vol] on 05-23-2024 Monocytes (Bld) [#/Vol] 0.4 10 3/uL 0.3-0.8 [facility] Monocytes/100 WBC Auto (Bld) on 05-23-2024 Monocytes/100 WBC (Bld) 5.7 % 1.7-12.0 [facility] Neutrophils Auto (Bld) [#/Vo l]on 05-23-2024 Neutrophils (Bld) [#/Vol] 4.3 10 3/uL 1.4-6.5 [facility] Neutrophils/100 WBC Auto (Bl d)on 05-23-2024 Neutrophils/100 WBC (Bld) 61.0 % 43.0-75.0 [facility] No Panel Informationon 05-23 Eosinophils # (Auto) 0.4 10 3/uL 0.0-0.7 [facility] Immature Granulocyte # (Auto) 0.02 10 3/uL 0.00-0.03 [facility] Urine Bacteria NONE SEEN #/HPF NONE SEEN [facility] Urine Culture Reflexed NO [facility] Urine Glucose (UA) COLOR INTERFERENCE mg/dL Abnormal NEG ATIVE [facility] Urine Microscopic Review YES [facility] Urine Occult Blood COLOR INTERFERENCE Abnormal NEGATIVE [facility] Urine Other Casts NONE SEEN #/LPF NONE SEEN Fi [facility] Urine Other Crystals None Seen #/HPF None Seen [facility] Urine pH COLOR INTERFERENCE Abnormal 5.0-9.0 [facility] Urine RBC >100 #/HPF Abnormal 0-2 [facility] Urine Squamous Epithelial Cells NONE SEEN #/LPF NONE/RARE [facility] Urine Urobilinogen COLOR INTERFERENCE EU/dL Abnormal 0.2 -1.0 [facility] Urine WBC 0-2 #/HPF Abnormal NONE SEEN [facility] Platelet mean volume Auto (B ld) [Entitic vol]on 05-23-2024 Platelet mean volume (Bld) [Entitic vol] 9.5 fL 9.5-13.5 [facility] Platelets Auto (Bld) [#/Vol] on 05-23-2024 Platelets (Bld) [#/Vol] 198 10 3/uL 150-450 [facility] Prothrombin time (PT)on PT Coag (PPP) [Time] 10.8 s 9.0-11.6 [facility] RBC Auto (Bld) [#/Vol]on RBC (Bld) [#/Vol] 4.68 10 6/uL Low 4.70-6.10 [facility] Serum or plasma anion gap de terminationon 05-23-2024 Anion gap [Moles/Vol] 16.3 mmol/L [facility] Ambulatory Visit Summaryon 0 05-20-2024 Ambulatory Visit Summary Ambulatory Visit Summary JOHN DAT James :1960 Visit Date:05/20/2024 Ambulatory Visit Instructions Your Care Team Attending Physician - Pelon [...] ultrasound guidance (11/27/2023), Colonoscopy (10/31/2023), EGD - esophagogastroduodenoscopy (10/31/2023), Cystoscopy (08/30/2021), Cystoscopy (08/24/2020), Cystoscopy (12/16/2019), Colonoscopy (09/2019), Colonoscopy (10/2017), Biopsy of prostate (2016), bladder tumor (2006), right leg bone tumor (2002), ankle surgery, Lithotripsy, Transurethral water vapour ablation of prostate. What to do next Scheduled Follow-Up Appointments Sunday 9:00 AM EDT With: Where: [facility] Invalid Interpretation Code [address] [place] [address]- \. br\ Sunday 10:30 AM EST \.br\ With: SANKET PRECIADO, Pelon Mujica\.br\ Where: [facility] RAD - CT Reporton 05-13-2024 RAD - CT Report [id number]#[id number] Normal [facility] Estimated glomerular filtrat ion rate (GFR) non- Americanon 05-12-2024 GFR/1.73 sq M.predicted among non-blacks MDRD (S/P/Bld) [Vol rate/Area] 55 mL/min/{1.73_m2} Low >=60 [facility] Laboratory - Chemistry and C hemistry - challengeon 05-12-2024 Creatinine [Mass/Vol] 1.32 mg/dL High 0.70-1.30 [facility] GFR/1.73 sq M.predicted MDRD (S/P/Bld) [Vol rate/Area] mL/min/{1.73_m2} >=60 [facility] Insurance Correspondenceon 0 05-08-2024 Insurance Correspondence [id number]#[id number] [facility] C Urineon 05-07-2024 Bacteria identified Cx Nom [...] Locations R1: [facility] [address] [place] [address], [address] , [place], Normal [facility] Comment on above: Performed By: #### [id number] #### [facility] Laboratory [address] [place] [id number] Consent for Procedure/Surger yon 05-06-2024 Consent for Procedure/Surgery [id number]#1.00TIFF [facility] Ambulatory Visit Summaryon 0 05-05-2024 Ambulatory Visit [...] ultrasound guidance (11/27/2023), Colonoscopy (10/31/2023), EGD - esophagogastroduodenoscopy (10/31/2023), Cystoscopy (08/30/2021), Cystoscopy (08/24/2020), Cystoscopy (12/16/2019), [...] PRECIADO, Pelon Mujica Where: [facility] Patient Educationon 05-05-20 24 [...] these instructions at home: Medicines ? Take [id number] and prescription medicines only as told by [...] Where to find more information ? National [place] [employer] and [employer]estive and Kidney Diseases: (more content not included)... Normal [facility] Urology Office/Clinic Noteon 05-05-2024 Urology Office/Clinic Note [...] 2 wk. SEs discussed. Rx sent to [facility]. -Will schedule cysto. The risks [...] cancer (Z85.51: (more content not included)... Normal [facility] Comment on above: Result Comment: Elec tronically Signed By: Pelon COLES MD\.br\Date and Time Signed: 05/05/24 12:21 EDT\.br\Electronically Co-Signed By: Jocelyne Moore\.br\Date and Time Co-Signed: 05/05/24 12:20 EDT Estimated glomerular filtrat ion rate (GFR) non- Americanon 02-22-2024 GFR/1.73 sq M.predicted among non-blacks MDRD (S/P/Bld) [Vol rate/Area] 40 mL/min/{1.73_m2} >=60 [facility] Laboratory - Chemistry and C hemistry - challengeon 02-22-2024 Calcium [Mass/Vol] 9.4 mg/dL 8.5-10.1 [facility] Chloride [Moles/Vol] 103 mmol/L 98-107 [facility] CO2 [Moles/Vol] 27.0 mmol/L 21.0-32.0 [facility] Creatinine [Mass/Vol] 1.73 mg/dL 0.70-1.30 [facility] GFR/1.73 sq M.predicted MDRD (S/P/Bld) [Vol rate/Area] 49 mL/min/{1.73_m2} >=60 [facility] Glucose [Mass/Vol] 192 mg/dL 74-106 [facility] Potassium [Moles/Vol] 4.1 mmol/L 3.5-5.1 [facility] Sodium [Moles/Vol] 140 mmol/L 136-145 [facility] Urea nitrogen [Mass/Vol] 25.0 mg/dL 7.0-18.0 [facility] Urea nitrogen/Creatinine [Mass ratio] 14.5 mg/mg [facility] Serum or plasma anion gap de terminationon 02-22-2024 Anion gap [Moles/Vol] 14.1 mmol/L [facility] Basophils Auto (Bld) [#/Vol] on 01-26-2024 Basophils (Bld) [#/Vol] 0.0 10 3/uL 0.0-0.1 [facility] Basophils/100 WBC Auto (Bld) on 01-26-2024 Basophils/100 WBC (Bld) 0.4 % 0.2-2.0 [facility] Cholesterol in LDL Calc [Mas s/Vol]on 01-26-2024 Cholesterol in LDL [Mass/Vol] 72.0 mg/dL [facility] Comment on above: <100 mg/dl [id number] 0-129 mg/dl NEAR OR ABOVE [id number] mg/dl BORDERLINE [id number] mg/dl HIGH>190 mg/dl VERY HIGH Cholesterol in VLDL Calc [Ma ss/Vol]on 01-26-2024 Cholesterol in VLDL [Mass/Vol] 27.8 mg/dL [facility] Eosinophils/100 WBC Auto (Bl d)on 01-26-2024 Eosinophils/100 WBC (Bld) 5.1 % 0.9-7.0 [facility] Erythrocyte distribution wid th Auto (RBC) [Ratio]on 01-26-2024 Erythrocyte distribution width (RBC) [Ratio] 13.6 % 11.0-15.0 [facility] Estimated glomerular filtrat ion rate (GFR) non- Americanon 01-26-2024 GFR/1.73 sq M.predicted among non-blacks MDRD (S/P/Bld) [Vol rate/Area] 51 mL/min/{1.73_m2} >=60 [facility] Globulin Calc (S) [Mass/Vol] on 01-26-2024 Globulin (S) [Mass/Vol] 3.4 g/dL [facility] Glucose mean value [Mass/vol ume] in Blood Estimated from glycated hemoglobinon 01-26-2024 Average glucose Estimated from glycated hemoglobin (Bld) [Mass/Vol] 131 mg/dL [facility] Hematocrit Auto (Bld) [Volum e fraction]on 01-26-2024 Hematocrit (Bld) [Volume fraction] 43.6 % 42.0-54.0 [facility] Hemoglobin [Mass/volume] in Bloodon 01-26-2024 Hemoglobin (Bld) [Mass/Vol] 14.0 g/dL 14.0-18.0 [facility] Laboratory - Chemistry and C hemistry - challengeon 01-26-2024 Albumin [Mass/Vol] 3.9 g/dL 3.4-5.0 [facility] ALP [Catalytic activity/Vol] 92 U/L 46-116 [facility] ALT [Catalytic activity/Vol] 48 U/L 16-63 [facility] AST [Catalytic activity/Vol] 35 U/L 15-37 [facility] Bilirubin [Mass/Vol] 0.5 mg/dL 0.2-1.0 [facility] Calcium [Mass/Vol] 8.9 mg/dL 8.5-10.1 [facility] Chloride [Moles/Vol] 104 mmol/L 98-107 [facility] Cholesterol [Mass/Vol] 135 mg/dL <=200 [facility] Cholesterol in HDL [Mass/Vol] 36 mg/dL 40-60 [facility] Comment on above: > or =60 mg/dl - LOW CARDIOVASCULAR RISK<40 mg/dl - HIGH CARDIOVASCULAR RISK CO2 [Moles/Vol] 25.0 mmol/L 21.0-32.0 [facility] Creatinine [Mass/Vol] 1.42 mg/dL 0.70-1.30 [facility] GFR/1.73 sq M.predicted MDRD (S/P/Bld) [Vol rate/Area] mL/min/{1.73_m2} >=60 [facility] Glucose [Mass/Vol] 134 mg/dL 74-106 [facility] Potassium [Moles/Vol] 4.5 mmol/L 3.5-5.1 [facility] Protein [Mass/Vol] 7.3 g/dL 6.4-8.2 [facility] Sodium [Moles/Vol] 139 mmol/L 136-145 [facility] Triglyceride [Mass/Vol] 139 mg/dL <=150 [facility] Urea nitrogen [Mass/Vol] 20.0 mg/dL 7.0-18.0 [facility] Urea nitrogen/Creatinine [Mass ratio] 14.1 mg/mg [facility] Laboratory - Hematology and Cell countson 01-26-2024 HbA1c (Bld) [Mass fraction] 6.2 % 4.5-6.2 [facility] Comment on above: ADA RECOMMENDED LIMI T 4.0 - 6.0ADA THERAPEUTIC TARGET < 7.0ACTION SUGGESTED> 7.0 Immature granulocytes/100 WBC (Bld) 0.4 % 0.0-0.5 [facility] Leukocytes [#/volume] correc bhanu for nucleated erythrocytes in Blood by Automated counon 01-26-2024 WBC corrected for nucl RBC Auto (Bld) [#/Vol] 6.8 10 3/uL 4.0-11.0 [facility] Lymphocytes Auto (Bld) [#/Vo l]on 01-26-2024 Lymphocytes (Bld) [#/Vol] 2.0 10 3/uL 1.2-3.8 [facility] Lymphocytes/100 WBC Auto (Bl d)on 01-26-2024 Lymphocytes/100 WBC (Bld) 28.9 % 20.5-60.0 [facility] MCH Auto (RBC) [Entitic mass ]on 01-26-2024 MCH (RBC) [Entitic mass] 26.9 pg 25.9-34.0 [facility] MCHC Auto (RBC) [Mass/Vol]on 01-26-2024 MCHC (RBC) [Mass/Vol] 32.1 g/dL 29.9-35.2 [facility] MCV Auto (RBC) [Entitic vol] on 01-26-2024 MCV (RBC) [Entitic vol] 83.7 fL 80.0-94.0 [facility] Microalbumin [Mass/volume] i n Urineon 01-26-2024 Albumin DL <= 20 mg/L (U) [Mass/Vol] 7.8 mg/dL <=30.0 [facility] Monocytes Auto (Bld) [#/Vol] on 01-26-2024 Monocytes (Bld) [#/Vol] 0.5 10 3/uL 0.3-0.8 [facility] Monocytes/100 WBC Auto (Bld) on 01-26-2024 Monocytes/100 WBC (Bld) 7.2 % 1.7-12.0 [facility] Neutrophils Auto (Bld) [#/Vo l]on 01-26-2024 Neutrophils (Bld) [#/Vol] 4.0 10 3/uL 1.4-6.5 [facility] Neutrophils/100 WBC Auto (Bl d)on 01-26-2024 Neutrophils/100 WBC (Bld) 58.0 % 43.0-75.0 [facility] No Panel Informationon 01-25 Eosinophils # (Auto) 0.4 10 3/uL 0.0-0.7 [facility] Immature Granulocyte # (Auto) 0.03 10 3/uL 0.00-0.03 [facility] Platelet mean volume Auto (B ld) [Entitic vol]on 01-26-2024 Platelet mean volume (Bld) [Entitic vol] 10.0 fL 9.5-13.5 [facility] Platelets Auto (Bld) [#/Vol] on 01-26-2024 Platelets (Bld) [#/Vol] 175 10 3/uL 150-450 [facility] RBC Auto (Bld) [#/Vol]on RBC (Bld) [#/Vol] 5.21 10 6/uL 4.70-6.10 [facility] Serum or plasma albumin/glob ulin mass ratioon 01-26-2024 Albumin/Globulin [Mass ratio] 1.1 {ratio} [facility] Serum or plasma anion gap de terminationon 01-26-2024 Anion gap [Moles/Vol] 14.5 mmol/L [facility] Serum or plasma total choles terol/high density lipoprotein (HDL) cholesterol mass pebbles 01-26-2024 Cholesterol.total/Ch olesterol in HDL [Mass ratio] 3.8 {ratio} [facility] Comment on above: 3.3 - 4.4 LOW RISK4. 4 - 7.1 AVERAGE RISK7.1 - 11.0 MODERATE RISK>11.0 HIGH RISK XR KUB 1 VIEWon 02-23-2023 XR KUB [...] OTTO Date: 2023-02-23 06:58 Normal [facility] XR LSPINE 2_3 VIEWSon 2022 XR LSPINE 2_3 VIEWS EXAMINATION: XR LSPI NE 2_3 VIEWS HISTORY: Lumbar spondylosis COMPARISON: No [...] GEMA OTTO Date: 2023-02-23 07:03 Normal [facility] CBC AUTO DIFFon 02-22-2023 BASO # 0.0 103/ul Normal 0.0-0.1 [facility] Comment on above: Performed By: #### C BC #### [facility] [address] [address] [address] Nikky Man Basophils/100 WBC (Bld) 0.3 % Normal 0.2-2.0 [facility] Comment on above: Performed By: #### C BC #### [facility] [address] [address] [address] Nikky Man EO # 0.2 103/ul Normal 0.0-0.7 [facility] Comment on above: Performed By: #### C BC #### [facility] [address] [address] [address] Nikky Man Eosinophils/100 WBC (Bld) 3.0 % Normal 0.9-7.0 [facility] Comment on above: Performed By: #### C BC #### [facility] [address] [address] [address] Nikky Man Erythrocyte distribution width (RBC) [Ratio] 14.1 % Normal 11.0-15.0 [facility] Comment on above: Performed By: #### C BC #### [facility] [address] [address] [address] Nikky Man Hematocrit (Bld) [Volume fraction] 40.4 % Critically low 42.0-54.0 [facility] Comment on above: Performed By: #### C BC #### [facility] [address] [address] [address] Nikky Man Hemoglobin (Bld) [Mass/Vol] 13.3 g/dL Critically low 14.0-18.0 [facility] Comment on above: Performed By: #### C BC #### [facility] [address] [address] [address] Nikky Man IG # 0.02 10e3/ul Normal 0.00-0.03 [facility] Comment on above: Performed By: #### C BC #### [facility] [address] [place] [address] Dr. Nikky Man IG % 0.3 % Normal 0.0-0.5 [facility] Comment on above: Performed By: #### C BC #### [facility] [address] [place] [address] Dr. Nikky Man LYMPH # 1.6 103/ul Normal 1.2-3.8 [facility] Comment on above: Performed By: #### C BC #### [facility] [address] [place] [address] Dr. Nikky Man Lymphocytes/100 WBC (Bld) 23.3 % Normal 20.5-60.0 [facility] Comment on above: Performed By: #### C BC #### [facility] [address] [place] [address] Dr. Nikky Man MANUAL DIFF REQ NO Normal [facility] Comment on above: Performed By: #### C BC #### [facility] [address] [place] [address] Dr. Nikky Man MCH (RBC) [Entitic mass] 26.3 pg Normal 25.9-34.0 [facility] Comment on above: Performed By: #### C BC #### [facility] [address] [place] [address] Dr. Nikky Man MCHC (RBC) [Mass/Vol] 32.9 g/dL Normal 29.9-35.2 [facility] Comment on above: Performed By: #### C BC #### [facility] [address] [address] [address] Nikky Man MCV (RBC) [Entitic vol] 80.0 fL Normal 80.0-94.0 [facility] Comment on above: Performed By: #### C BC #### [facility] [address] [address] [address] Nikky Man MONO # 0.4 103/ul Normal 0.3-0.8 [facility] Comment on above: Performed By: #### C BC #### [facility] [address] [address] [address] Nikky Man Monocytes/100 WBC (Bld) 5.8 % Normal 1.7-12.0 [facility] Comment on above: Performed By: #### C BC #### [facility] [address] [place] [address] Dr. Nikky Man NEUT # 4.7 103/ul Normal 1.4-6.5 [facility] Comment on above: Performed By: #### C BC #### [facility] [address] [place] [address] Dr. Nikky Man Neutrophils/100 WBC (Bld) 67.3 % Normal 43.0-75.0 [facility] Comment on above: Performed By: #### C BC #### [facility] [address] [place] [address] Dr. Nikky Man Platelet mean volume (Bld) [Entitic vol] 9.0 fL Critically low 9.5-13.5 [facility] Comment on above: Performed By: #### C BC #### [facility] [address] [place] [address] Dr. Nikky Man PLT 154 103/ul Normal 150-450 [facility] Comment on above: Performed By: #### C BC #### [facility] [address] [place] [address] Dr. Nikky Man RBC 5.05 106/ul Normal 4.70-6.10 [facility] Comment on above: Performed By: #### C BC #### [facility] [address] [address] [address] Nikky Man WBC 6.9 103/ul Normal 4.0-11.0 [facility] Comment on above: Performed By: #### C BC #### [facility] [address] [place] [address] Dr. Nikky Man GLYCOHEMOGLOBIN A1Con 2022 ADA RECOMMENDATION SEE BELOW Normal [facility] Comment on above: Result Comment: ADA RECOMMENDED LIMIT 4.0 - 6.0 ADA THERAPEUTIC TARGET < 7.0 ACTION SUGGESTED > 7.0 Performed By: #### A 1C #### [facility] [address] [place] [address] Dr. Nikky Man Glucose [Mass/Vol] 137 mg/dL Normal [facility] Comment on above: Performed By: #### A 1C #### [facility] [address] [place] [address] Dr. Nikky Man HbA1c (Bld) [Mass fraction] 6.4 % Critically high 4.5-6.2 [facility] Comment on above: Performed By: #### A 1C #### [facility] [address] [place] [address] Dr. Nikky Man LIPID PROFILEon 02-22-2023 CHOL-HDL RATIO NORM SEE BELOW Normal [facility] Comment on above: Result Comment: 3.3 - 4.4 LOW RISK 4.4 - 7.1 AVERAGE RISK 7.1 - 11.0 MODERATE RISK >11.0 HIGH RISK Performed By: #### C MP, LIPID #### [facility] [address] [place] [address] Dr. Nikky Man Cholesterol [Mass/Vol] 135 mg/dL Normal <=200 [facility] Comment on above: Performed By: #### C MP, LIPID #### [facility] [address] [place] [address] Dr. Nikky Man Cholesterol in HDL [Mass/Vol] 30 mg/dL Critically low 40-60 [facility] Comment on above: Performed By: #### C MP, LIPID #### [facility] [address] [place] [address] Dr. Nikky Man Cholesterol in LDL [Mass/Vol] 50.6 mg/dL Normal [facility] Comment on above: Performed By: #### C MP, LIPID #### [facility] [address] [place] [address] Dr. Nikky Man Cholesterol.total/Ch olesterol in HDL [Mass ratio] 4.5 {ratio} Normal [facility] Comment on above: Performed By: #### C MP, LIPID #### [facility] [address] [address] [address] Nikky Man HDL NORMAL > or = 60 mg/dl - LO W CARDIOVASCULAR RISK <40 mg/dl - HIGH CARDIOVASCULAR RISK Normal [facility] Comment on above: Performed By: #### C MP, LIPID #### [facility] [address] [place] [address] Dr. Nikky Man LDL CALC NORMAL SEE BELOW Normal [facility] Comment on above: Result Comment: <100 mg/dl OPTIMAL 100 - 129 mg/dl NEAR OR ABOVE OPTIMAL 130 - 159 mg/dl BORDERLINE HIGH 160 - 189 mg/dl HIGH >190 mg/dl VERY HIGH Performed By: #### C MP, LIPID #### [facility] [address] [place] [address] Dr. Nikky Man Triglyceride [Mass/Vol] 272 mg/dL Critically high <=150 [facility] Comment on above: Performed By: #### C MP, LIPID #### [facility] [address] [place] [address] Dr. Nikky Man VLDL CALC 54.4 mg/dL Normal [facility] Comment on above: Performed By: #### C MP, LIPID #### [facility] [address] [address] [address] Nikky Man MICROALBUMIN, RAND URon 04-0 mALB 13.2 mg/L Normal <=30.0 [facility] Comment on above: Performed By: #### M ALBR #### [facility] [address] [place] [address] Dr. Nikky Man PROF 14(COMP METB)on 023 Albumin [Mass/Vol] 3.9 g/dL Normal 3.4-5.0 [facility] Comment on above: Performed By: #### C MP, LIPID #### [facility] [address] [place] [address] Dr. Nikky Man Albumin/Globulin [Mass ratio] 1.2 {ratio} Normal [facility] Comment on above: Performed By: #### C MP, LIPID #### [facility] [address] [address] [address] Nikky Man ALP [Catalytic activity/Vol] 87 U/L Normal 46-116 [facility] Comment on above: Performed By: #### C MP, LIPID #### [facility] [address] [place] [address] Dr. Nikky Man ALT [Catalytic activity/Vol] 29 U/L Normal 16-63 [facility] Comment on above: Performed By: #### C MP, LIPID #### [facility] [address] [place] [address] Dr. Nikky Man Anion gap [Moles/Vol] 13.2 mmol/L Normal [facility] Comment on above: Performed By: #### C MP, LIPID #### [facility] [address] [place] [address] Dr. Nikky Man AST [Catalytic activity/Vol] 19 U/L Normal 15-37 [facility] Comment on above: Performed By: #### C MP, LIPID #### [facility] [address] [place] [address] Dr. Nikky Man Bilirubin [Mass/Vol] 0.4 mg/dL Normal 0.2-1.0 [facility] Comment on above: Performed By: #### C MP, LIPID #### [facility] [address] [address] [address] Nikky Man Calcium [Mass/Vol] 9.3 mg/dL Normal 8.5-10.1 [facility] Comment on above: Performed By: #### C MP, LIPID #### [facility] [address] [address] [address] Nikky Man Chloride [Moles/Vol] 103 mmol/L Normal 98-107 [facility] Comment on above: Performed By: #### C MP, LIPID #### [facility] [address] [address] [address] Nikky Man CO2 [Moles/Vol] 28.7 mmol/L Normal 21.0-32.0 [facility] Comment on above: Performed By: #### C MP, LIPID #### [facility] [address] [address] [address] Nikky Man Creatinine [Mass/Vol] 1.54 mg/dL Critically high 0.70-1.30 [facility] Comment on above: Performed By: #### C MP, LIPID #### [facility] [address] [place] [address] Dr. Nikky Man EGFR-AF NIGERIAN 56 mL/min/1.73m2 Critically low >=60 [facility] Comment on above: Performed By: #### C MP, LIPID #### [facility] [address] [place] [address] Dr. Nikky Man EGFR-NON AF NIGERIAN 46 mL/min/1.73m2 Critically low >=60 [facility] Comment on above: Performed By: #### C MP, LIPID #### [facility] [address] [place] [address] Dr. Nikky Man Globulin (S) [Mass/Vol] 3.2 g/dL Normal [facility] Comment on above: Performed By: #### C MP, LIPID #### [facility] [address] [place] [address] Dr. Nikky Man Glucose [Mass/Vol] 179 mg/dL Critically high 74-106 [facility] Comment on above: Performed By: #### C MP, LIPID #### [facility] [address] [place] [address] Dr. Nikky Man Potassium [Moles/Vol] 4.9 mmol/L Normal 3.5-5.1 [facility] Comment on above: Performed By: #### C MP, LIPID #### [facility] [address] [place] [address] Dr. Nikky Man Protein [Mass/Vol] 7.1 g/dL Normal 6.4-8.2 [facility] Comment on above: Performed By: #### C MP, LIPID #### [facility] [id number] Nikky Man Sodium [Moles/Vol] 140 mmol/L Normal 136-145 [facility] Comment on above: Performed By: #### C MP, LIPID #### [facility] [id number] Nikky Man Urea nitrogen [Mass/Vol] 20.0 mg/dL Critically high 7.0-18.0 [facility] Comment on above: Performed By: #### C MP, LIPID #### [facility] [id number] Nikky Man Urea nitrogen/Creatinine [Mass ratio] 13.0 mg/mg Normal [facility] Comment on above: Performed By: #### C MP, LIPID #### [facility] [address] [place], [place] [address] Dr. Nikky Man XR femur RT 2V*on 02-14-2023 XR femur RT 2V* [facility] [employer] Other XR femur RT 2V* [facility] [employer] Other XR femur RT 2V* [address] [place] [address] [employer] Other XR femur RT 2V* [place] [id number] [facility] [employer] Other XR femur RT 2V* XRay Report Skin Scan Id [employer] Other XR femur RT 2V* Signed [employer] Other XR femur RT 2V* Patient: Tk Lopez MR#: [id number] [place] [employer] Other XR femur RT 2V* [id number] [employer] Other XR femur RT 2V* : 1960 Acct:[id number] [place] [employer] Other XR femur RT 2V* Age/Sex: 62 / M ADM Date: 02/14/23 [employer] Other XR femur RT 2V* Loc: SOX Room: Type : [facility] [employer] Other XR femur RT 2V* Attending Dr: Alfonzo Ashford II, MD [employer] Other XR femur RT 2V* Copies to: Alfonzo Ashford MD [employer] Other XR femur RT 2V* Ordering Provider: Sil Ashford MD [employer] Other XR femur RT 2V* Date of Service: 02/14/23 [employer] Other XR femur RT 2V* [id number]) XR/XR femur RT 2V*: Post-traumatic osteoarthritis of right knee [employer] Other XR femur RT 2V* Right femur 2 views. [employer] Other XR femur RT 2V* Reason for exam: Fol low-up ORIF right femur fracture. [employer] Other XR femur RT 2V* COMPARISON: Right kn ee series 12/14/2022 [employer] Other XR femur RT 2V* FINDINGS: Hardware f ixation is seen involving the mid to distal femur without evidence of hardware [employer] Other XR femur RT 2V* complication. No acu te fracture line is noted. Residual deformity seen from a prior fracture [employer] Other XR femur RT 2V* involving the mid fe mur. Visualized knee joint demonstrates degenerative change. Right hip joint [employer] Other XR femur RT 2V* demonstrates minimal degenerative change. [employer] Other XR femur RT 2V* X R/XR femur RT 2V* [employer] Other XR femur RT 2V* IMPRESSION: No evide nce of hardware complication. No acute fracture line is seen. [place] [employer] Other XR femur RT 2V* Impression dictated by: Mitul Boston Jr., D.ODheeraj02/14/2023 4:22 PM [place] [employer] Other XR femur RT 2V* Dictation Location: [address] [employer] Other XR femur RT 2V* Transcribed By: [facility] 02/14/23 [facility] [employer] Other XR femur RT 2V* Dictated By: Mitul Boston Jr, DO 02/14/23 [facility] [employer] Other XR femur RT 2V* Signed By: [employer] Other XR femur RT 2V* 02/14/23 [facility] [employer] Other XR knee RT 4V*on 12-14-2022 XR knee RT 4V* [facility] [employer] Other XR knee RT 4V* [facility] [employer] Other XR knee RT 4V* [address] [place] [address] [employer] Other XR knee RT 4V* [place] [address] No rt [employer] Other XR knee RT 4V* XRay Report [employer] Other XR knee RT 4V* Signed [employer] Other XR knee RT 4V* Patient: Tk Lopez James WALDRON MR#: [id number] [place] [employer] Other XR knee RT 4V* [id number] [employer] Other XR knee RT 4V* : 1960 Acct:[id number] [place] [employer] Other XR knee RT 4V* Age/Sex: 62 / M ADM Date: 12/14/22 [employer] Other XR knee RT 4V* Loc: SOXD Room: Type : [facility] [employer] Other XR knee RT 4V* Attending Dr: Alfonzo Ashford II, MD [employer] Other XR knee RT 4V* Copies to: Alfonzo Ashford MD [employer] Other XR knee RT 4V* Ordering Provider: Sil Ashford MD [employer] Other XR knee RT 4V* Date of Service: 12/14/22 [employer] Other XR knee RT 4V* [id number]) XR/XR hip LT min 2V(w/wo pelvis)*: Left hip pain [employer] Other XR knee RT 4V* ([id number]) XR/XR knee RT 4V*: Acute pain of right knee [employer] Other XR knee RT 4V* LEFT HIP - 2 views: Right knee 4 views [employer] Other XR knee RT 4V* CLINICAL HISTORY: Le ft hip pain for months. Groin pain. [employer] Other XR knee RT 4V* COMPARISON: None [facility] [employer] Other XR knee RT 4V* FINDINGS: Left hip: No acute bony process or significant degenerative change of the hips. [employer] Other XR knee RT 4V* Right knee: Partiall y visualized hardware is seen involving the distal femur without evidence of [employer] Other XR knee RT 4V* hardware complicatio n. No acute bony process is seen. Small knee joint effusion. Mild [employer] Other XR knee RT 4V* Degenerative changes with weightbearing and patellofemoral joint space narrowing. [employer] Other XR knee RT 4V* X R/XR hip LT min 2V(w/wo pelvis)* [employer] Other XR knee RT 4V* IMPRESSION: [employer] Other XR knee RT 4V* MILD DEGENERATIVE CH ANGES OF THE RIGHT KNEE WITHOUT ACUTE BONY PROCESS.. [employer] Other XR knee RT 4V* Impression dictated by: Mitul Boston Jr., D.O.12/14/2022 3:37 PM [employer] Other XR knee RT 4V* Dictation Location: [place] [address] [employer] Other XR knee RT 4V* Transcribed By: [facility] 12/14/22 [facility] [employer] Other XR knee RT 4V* Dictated By: Mitul Boston Jr, DO 12/14/22 [facility] [employer] Other XR knee RT 4V* Signed By: [employer] Other XR knee RT 4V* 12/14/22 [facility] [employer] Other PSA, FREE AND TOTAL RATIOon 12-06-2022 % Free PSA 28.4 % Normal [facility] Comment on above: Result Comment: The table [...] men. Performed By: #### P SAFREE #### [facility] [address] [address] [address] Nikky Man Prostate specific Ag [Mass/Vol] 10.5 ng/mL Critically high 0.0-4.0 [facility] Comment on above: Result Comment: Inderjit LO methodology. . According to the [employer], Serum PSA should decrease and [...] disease. Performed By: #### P SAFREE #### [facility] [address] [address] [address] Nikky Man PSA, Free 2.98 ng/mL Normal N/A [facility] Comment on above: Result Comment: Inderjit LO methodology. Performed By: #### P SAFREE #### [facility] [address] [address] [address] ABD/PELVIS WO CONon 09-27 CT ABD/PELVIS WO CON EXAMINATION: CT ABD /PELVIS WO CON HISTORY: Kidney stone COMPARISON: CT [...] Date: 2022-09-27 15:14 Normal [facility] UA DIP, URINE (POC)on 2021 BILIRUBIN UA (POCT) Negative Negative [facility] CLARITY UA (POCT) Cloudy [facility] COLOR UA (POCT) Yellow [facility] GLUCOSE UA (POCT) Negative Negative mg/dL [facility] HEMOGLOBIN/BLOOD UA (POCT) Large Abnormal Negative [facility] KETONE UA (POCT) Negative Negative mg/dL [facility] LEUKOCYTES UA (POCT) Small Abnormal Negative [facility] NITRITE UA (POCT) Negative Negative [facility] PH UA (POCT) 5.5 4.5 - 8.0 [facility] Protein Ql (U) 30 mg/dL Abnormal Negative mg/dL [facility] SPECIFIC GRAVITY UA (POCT) 1.020 1.005 - 1.030 [facility] UROBILINOGEN UA (POCT) 0.2 E.U./dL Normal E.U./dL [facility] CT FLANK WO IVCONon 08-28-20 [facility] UA DIP, URINE (POC)on 2021 BILIRUBIN UA (POCT) Negative Negative [facility] CLARITY UA (POCT) Slightly Cloudy [facility] COLOR UA (POCT) Yellow [facility] GLUCOSE UA (POCT) Negative Negative mg/dL [facility] HEMOGLOBIN/BLOOD UA (POCT) Large Abnormal Negative [facility] KETONE UA (POCT) Negative Negative mg/dL [facility] LEUKOCYTES UA (POCT) Small Abnormal Negative [facility] NITRITE UA (POCT) Negative Negative [facility] PH UA (POCT) 5.5 4.5 - 8.0 [facility] Protein Ql (U) 30 mg/dL Abnormal Negative mg/dL [facility] SPECIFIC GRAVITY UA (POCT) 1.015 1.005 - 1.030 [facility] UROBILINOGEN UA (POCT) 0.2 E.U./dL Normal E.U./dL [facility] XR KUB 1 VIEWon 07-19-2022 XR KUB [...] by: GEMA OTTO Date: 2022-07-19 11:50 Normal [facility] XR KUB 1 VIEWon 06-29-2022 XR KUB [...] CULLEN Date: 2022-06-29 07:43 Normal [facility] CALCULI, URINARYon 2 2,8 Dihydroxyadenine Normal [facility] Comment on above: Performed By: #### C ALCULI #### [facility] [address] [address] [address] Nikky Man Ammonium Acid Urate Normal [facility] Comment on above: Performed By: #### C ALCULI #### [facility] [address] [address] [address] Nikky Man Bilirubin Ql (U) [facility] Comment on above: Performed By: #### C ALCULI #### [facility] [address] [address] [address] Nikky Man Ca Oxalate Dihydrate 10 % [facility] Comment on above: Performed By: #### C ALCULI #### [facility] [address] [address] [address] Nikky Man CaHPO4 (Brushite) [facility] Comment on above: Performed By: #### C ALCULI #### [facility] [address] [address] [address] Nikky Man Calcium Bilirubinate [facility] Comment on above: Performed By: #### C ALCULI #### [facility] [address] [address] [address] Nikky Man Calcium Carbonate [facility] Comment on above: Performed By: #### C ALCULI #### [facility] [address] [address] [address] Nikky Man Calcium Oxalate Monohydrate 90 % [facility] Comment on above: Performed By: #### C ALCULI #### [facility] [address] [address] [address] Nikky Man Calcium Palmitate [facility] Comment on above: Performed By: #### C ALCULI #### [facility] [address] [address] [address] Nikky Man Calcium Phosphate [facility] Comment on above: Performed By: #### C ALCULI #### [facility] [address] [address] [address] Nikky Man Calcium Stearate [facility] Comment on above: Performed By: #### C ALCULI #### [facility] [address] [address] [address] Nikky Man Carbonate Apatite Normal [facility] Comment on above: Performed By: #### C ALCULI #### [facility] [address] [address] [address] Nikky Man Cellular Material [facility] Comment on above: Performed By: #### C ALCULI #### [facility] [address] [address] [address] Nikky Man Cholesterol [facility] Comment on above: Performed By: #### C ALCULI #### [facility] [address] [address] [address] Nikky Man Color (U) Tr[place]ell [facility] Comment on above: Performed By: #### C ALCULI #### [facility] [address] [place] [address] Dr. Nikky Man Comment [facility] Comment on above: Performed By: #### C ALCULI #### [facility] [address] [place] [address] Dr. Nikky Man Comment Comment [facility] Comment on above: Result Comment: Calc ulus received in liquid. Wet calculi must be dried before analysis, which delays reporting of results. Leaving calculi in liquid (such as water, saline, blood, urine) may lead to changes in composition. Performed By: #### C ALCULI #### [facility] [address] [place] [address] Dr. Nikky Man Comment: Comment Normal [facility] Comment on above: Result Comment: Phys nicolas questions regarding Calculi Analysis contact [facility] at: [phone]. Performed By: #### C ALCULI #### [facility] [address] [place] [address] Dr. Nikky Man Composition Comment [facility] Comment on above: Result Comment: Perc entage (Represents the % composition) Performed By: #### C ALCULI #### [facility] [address] [place] [address] Dr. Nikky Man Cystine [facility] Comment on above: Performed By: #### C ALCULI #### [facility] [address] [address] [address] Nikky Man Disclaimer: Comment Normal [facility] Comment on above: Result Comment: This test was developed and its performance characteristics determined by [facility]. It has not been cleared or approved by the Food and Drug Administration. Performed By: #### C ALCULI #### [facility] [address] [address] [address] Nikky Man Dried Blood [facility] Comment on above: Performed By: #### C ALCULI #### [facility] [address] [address] [address] Nikky Man Drug or Metabolite Normal [facility] Comment on above: Performed By: #### C ALCULI #### [facility] [address] [place] [address] Dr. Nikky Man Hydroxyapatite Normal [facility] Comment on above: Performed By: #### C ALCULI #### [facility] [address] [address] [address] Nikky Man Mg NH4 PO4 (Struvite) Normal [facility] Comment on above: Performed By: #### C ALCULI #### [facility] [address] [place] [address] Dr. Nikky Man MgHPO4 (Newberyite) Normal [facility] Comment on above: Performed By: #### C ALCULI #### [facility] [address] [address] [address] Nikky Man Other component(s) Normal [facility] Comment on above: Performed By: #### C ALCULI #### [facility] [address] [address] [address] Nikky Man PDF . Normal [facility] Comment on above: Performed By: #### C ALCULI #### [facility] [address] [place] [address] Dr. Nikky Man Photo Comment Normal [facility] Comment on above: Result Comment: Phot ograph will follow under a separate cover Performed By: #### C ALCULI #### [facility] [address] [address] [address] Nikky Man Please note: Comment Normal [facility] Comment on above: Result Comment: Calc aishwarya report will follow via computer, mail or blender conveyor operator delivery. Performed By: #### C ALCULI #### [facility] [address] [address] [address] Nikky Man Size 3x2 Normal [facility] Comment on above: Result Comment: Mult iple pieces received. Dimensions of the largest piece reported. Performed By: #### C ALCULI #### [facility] [address] [address] [address] Nikky Man Sodium Acid Urate [facility] Comment on above: Performed By: #### C ALCULI #### [facility] [address] [address] [address] Nikky Man Source Comment [facility] Comment on above: Result Comment: Left Ureter Performed By: #### C ALCULI #### [facility] [address] [address] [address] Nikky Man Triamterene [facility] Comment on above: Performed By: #### C ALCULI #### [facility] [address] [address] [address] Nikky Man Uric Acid [facility] Comment on above: Performed By: #### C ALCULI #### [facility] [address] [address] [address] Nikky Man Uric Acid Dihydrate Normal [facility] Comment on above: Performed By: #### C ALCULI #### [facility] [address] [address] [address] Nikky Man Weight 4 mg [facility] Comment on above: Performed By: #### C ALCULI #### [facility] [address] [address] [address] Nikky Man Xanthine [facility] Comment on above: Performed By: #### C ALCULI #### [facility] [address] [address] [address] Nikky Man XR KUB 1 VIEWon [...] by: JI CULLEN Date: 2022-06-08 16:30 Normal [facility] XR KUB 1 VIEWon 06-01-2022 XR KUB [...] JI CULLEN Date: 2022-06-01 21:58 Normal [facility] PROTIMEon 05-25-2022 INR Coag (PPP) [Relative time] 1.01 {INR} Normal [facility] Comment on above: Performed By: #### P TT, PT #### [facility] [address] [address] [address] Nikky Man INR GUIDELINES SEE BELOW Normal [facility] Comment on above: Result Comment: ELFEGO RED INR: 2.0 - 3.0 CONDITIONS NOT LISTED BELOW 2.5 - 3.5 FOR PROSTHETIC HEART VALVE REPLACEMENT 2.5 - 3.5 RECURRENT THROMBOSIS Performed By: #### P TT, PT #### [facility] [address] [address] [address] Nikky Man PT Coag (PPP) [Time] 10.9 s Normal 9.0-11.6 [facility] Comment on above: Performed By: #### P TT, PT #### [facility] [address] [place] [id number] [address] Nikky Man PTTon 05-25-2022 aPTT Coag (Bld) [Time] 27.9 s Normal 22.3-36.2 [facility] Comment on above: Performed By: #### P TT, PT #### [facility] [address] [place], [place] [address] Dr. Nikky Man XR KUB 1 VIEWon [...] by: GEMA OTTO Date: 2022-05-25 17:12 Normal [facility] XR KUB 1 VIEWon 05-17-2022 XR KUB [...] JI CULLEN Date: 2022-05-17 07:32 Normal [facility] CALCULI, URINARYon 06-22-202 2 2,8 Dihydroxyadenine Normal [facility] Comment on above: Performed By: #### C BC #### [facility] [address] [address] [address] Nikky Man Ammonium Acid Urate Normal [facility] Comment on above: Performed By: #### C BC #### [facility] [address] [address] [address] Nikky Man Bilirubin Ql (U) [facility] Comment on above: Performed By: #### C BC #### [facility] [address] [address] [address] Nikky Man Ca Oxalate Dihydrate 10 % [facility] Comment on above: Performed By: #### C BC #### [facility] [address] [address] [address] Nikky Man CaHPO4 (Brushite) [facility] Comment on above: Performed By: #### C BC #### [facility] [address] [address] [address] Nikky Man Calcium Bilirubinate [facility] Comment on above: Performed By: #### C BC #### [facility] [address] [address] [address] Nikky Man Calcium Carbonate [facility] Comment on above: Performed By: #### C BC #### [facility] [address] [address] [address] Nikky Man Calcium Oxalate Monohydrate 90 % [facility] Comment on above: Performed By: #### C BC #### [facility] [address] [address] [address] Nikky Man Calcium Palmitate [facility] Comment on above: Performed By: #### C BC #### [facility] [address] [address] [address] Nikky Man Calcium Phosphate [facility] Comment on above: Performed By: #### C BC #### [facility] [address] [address] [address] Nikky Man Calcium Stearate [facility] Comment on above: Performed By: #### C BC #### [facility] [address] [place] [address] Dr. Nikky Man Carbonate Apatite Normal [facility] Comment on above: Performed By: #### C BC #### [facility] [address] [place] [address] Dr. Nikky Man Cellular Material [facility] Comment on above: Performed By: #### C BC #### [facility] [address] [place] [address] Dr. Nikky Man Cholesterol [facility] Comment on above: Performed By: #### C BC #### [facility] [address] [place] [address] Dr. Nikky Man Color (U) Trammell [facility] Comment on above: Performed By: #### C BC #### [facility] [address] [place] [address] Dr. Nikky Man Comment [facility] Comment on above: Performed By: #### C BC #### [facility] [address] [place] [address] Dr. Nikky Man Comment Comment [facility] Comment on above: Result Comment: Calc ulus received in liquid. Wet calculi must be dried before analysis, which delays reporting of results. Leaving calculi in liquid (such as water, saline, blood, urine) may lead to changes in composition. Performed By: #### C BC #### [facility] [address] [place] [address] Dr. Nikky Man Comment: Comment Normal [facility] Comment on above: Result Comment: Kaycee valenzuela questions regarding Calculi Analysis contact [facility] at: [phone]. Performed By: #### C BC #### [facility] [address] [place] [address] Dr. Nikky Man Composition Comment [facility] Comment on above: Result Comment: Perc entage (Represents the % composition) Performed By: #### C BC #### [facility] [address] [place] [address] Dr. Nikky Man Cystine [facility] Comment on above: Performed By: #### C BC #### [facility] [address] [place] [address] Dr. Nikky Man Disclaimer: Comment Normal [facility] Comment on above: Result Comment: This test was developed and its performance characteristics determined by [facility]. It has not been cleared or approved by the Food and Drug Administration. Performed By: #### C BC #### [facility] [address] [place] [address] Dr. Nikky Man Dried Blood Normal [facility] Comment on above: Performed By: #### C BC #### [facility] [address] [place] [address] Dr. Nikky Man Drug or Metabolite Normal [facility] Comment on above: Performed By: #### C BC #### [facility] [address] [place] [address] Dr. Nikky Man Hydroxyapatite Normal [facility] Comment on above: Performed By: #### C BC #### [facility] [address] [place] [address] Dr. Nikky Man Mg NH4 PO4 (Struvite) [facility] Comment on above: Performed By: #### C BC #### [facility] [address] [place] [address] Dr. Nikky Man MgHPO4 (Newberyite) Normal [facility] Comment on above: Performed By: #### C BC #### [facility] [address] [place] [address] Dr. Nikky Man Other component(s) Normal [facility] Comment on above: Performed By: #### C BC #### [facility] [address] [place] [address] Dr. Nikky Man PDF . Normal [facility] Comment on above: Performed By: #### C BC #### [facility] [address] [place] [address] Dr. Nikky Man Photo Comment Normal [facility] Comment on above: Result Comment: Phot ograph will follow under a separate cover Performed By: #### C BC #### [facility] [address] [place] [address] Dr. Nikky Man Please note: Comment Normal [facility] Comment on above: Result Comment: Calc aishwarya report will follow via computer, mail or blender conveyor operator delivery. Performed By: #### C BC #### [facility] [address] [address] [address] Nikky Man Size 4x4 Normal [facility] Comment on above: Result Comment: Mult iple pieces received. Dimensions of the largest piece reported. Performed By: #### C BC #### [facility] [address] [address] [address] Nikky Man Sodium Acid Urate [facility] Comment on above: Performed By: #### C BC #### [facility] [address] [address] [address] Nikky Man Source Comment [facility] Comment on above: Result Comment: Left Ureter Performed By: #### C BC #### [facility] [address] [address] [address] Nikky Man Triamterene [facility] Comment on above: Performed By: #### C BC #### [facility] [address] [address] [address] Nikky Man Uric Acid [facility] Comment on above: Performed By: #### C BC #### [facility] [address] [address] [address] Nikky Man Uric Acid Dihydrate Normal [facility] Comment on above: Performed By: #### C BC #### [facility] [address] [address] [address] Nikky Man Weight 156 mg [facility] Comment on above: Performed By: #### C BC #### [facility] [address] [address] [address] Nikky Man Xanthine [facility] Comment on above: Performed By: #### C BC #### [facility] [address] [address] [address] Nikky Man POINT OF CARE GLUCOSEon 06-1 Glucose [Mass/Vol] 131 mg/dL Critically high 74-106 T [facility] Comment on above: Performed By: #### C BC #### [facility] [address] [place] [address] Dr. Nikky Man CBC AUTO DIFFon 05-04-2022 BASO # 0.0 103/ul Normal 0.0-0.1 [facility] Comment on above: Performed By: #### C BC #### [facility] [address] [place] [address] Dr. Nikky Man Basophils/100 WBC (Bld) 0.2 % Normal 0.2-2.0 [facility] Comment on above: Performed By: #### C BC #### [facility] [address] [place] [address] Dr. Nikky Man EO # 0.4 103/ul Normal 0.0-0.7 [facility] Comment on above: Performed By: #### C BC #### [facility] [address] [place] [address] Dr. Nikky Man Eosinophils/100 WBC (Bld) 4.8 % Normal 0.9-7.0 [facility] Comment on above: Performed By: #### C BC #### [facility] [address] [place] [address] Dr. Nikky Man Erythrocyte distribution width (RBC) [Ratio] 13.4 % Normal 11.0-15.0 [facility] Comment on above: Performed By: #### C BC #### [facility] [address] [place] [address] Dr. Nikky Man Hematocrit (Bld) [Volume fraction] 36.9 % Critically low 42.0-54.0 [facility] Comment on above: Performed By: #### C BC #### [facility] [address] [place] [address] Dr. Nikky Man Hemoglobin (Bld) [Mass/Vol] 12.2 g/dL Critically low 14.0-18.0 [facility] Comment on above: Performed By: #### C BC #### [facility] [address] [place] [address] Dr. Nikky Man IG # 0.05 10e3/ul Critically high 0.00-0.03 [facility] Comment on above: Performed By: #### C BC #### [facility] [address] [place] [address] Dr. Nikky Man IG % 0.6 % Critically high 0.0-0.5 [facility] Comment on above: Performed By: #### C BC #### [facility] [address] [place] [address] Dr. Nikky Man LYMPH # 1.8 103/ul Normal 1.2-3.8 [facility] Comment on above: Performed By: #### C BC #### [facility] [address] [place] [address] Dr. Nikky Man Lymphocytes/100 WBC (Bld) 20.3 % Critically low 20.5-60.0 [facility] Comment on above: Performed By: #### C BC #### [facility] [address] [place] [address] Dr. Nikky Man MANUAL DIFF REQ NO Normal [facility] Comment on above: Performed By: #### C BC #### [facility] [address] [place] [address] Dr. Nikky Man MCH (RBC) [Entitic mass] 26.6 pg Normal 25.9-34.0 [facility] Comment on above: Performed By: #### C BC #### [facility] [address] [place] [address] Dr. Nikky Man MCHC (RBC) [Mass/Vol] 33.1 g/dL Normal 29.9-35.2 [facility] Comment on above: Performed By: #### C BC #### [facility] [address] [place] [address] Dr. Nikky Man MCV (RBC) [Entitic vol] 80.6 fL Normal 80.0-94.0 [facility] Comment on above: Performed By: #### C BC #### [facility] [address] [place] [address] Dr. Nikky Man MONO # 0.5 103/ul Normal 0.3-0.8 [facility] Comment on above: Performed By: #### C BC #### [facility] [address] [address] [address] Nikky Man Monocytes/100 WBC (Bld) 5.2 % Normal 1.7-12.0 [facility] Comment on above: Performed By: #### C BC #### [facility] [address] [address] [address] Nikky Man NEUT # 6.1 103/ul Normal 1.4-6.5 [facility] Comment on above: Performed By: #### C BC #### [facility] [address] [address] [address] Nikky Man Neutrophils/100 WBC (Bld) 68.9 % Normal 43.0-75.0 [facility] Comment on above: Performed By: #### C BC #### [facility] [address] [place] [address] Dr. Nikky Man Platelet mean volume (Bld) [Entitic vol] 8.9 fL Critically low 9.5-13.5 [facility] Comment on above: Performed By: #### C BC #### [facility] [address] [place] [address] Dr. Nikky Man PLT 201 103/ul Normal 150-450 [facility] Comment on above: Performed By: #### C BC #### [facility] [address] [place] [address] Dr. Nikky Man RBC 4.58 106/ul Critically low 4.70-6.10 [facility] Comment on above: Performed By: #### C BC #### [facility] [address] [place] [address] Dr. Nikky Man WBC 8.8 103/ul Normal 4.0-11.0 [facility] Comment on above: Performed By: #### C BC #### [facility] [address] [place] [address] Dr. Nikky Man PROF CHEM 8 (BAS METB)on Anion gap [Moles/Vol] 17.6 mmol/L Normal [facility] Comment on above: Performed By: #### C BC #### [facility] [address] [address] [address] Nikky Man Calcium [Mass/Vol] 9.0 mg/dL Normal 8.5-10.1 [facility] Comment on above: Performed By: #### C BC #### [facility] [address] [address] [address] Nikky Man Chloride [Moles/Vol] 106 mmol/L Normal 98-107 [facility] Comment on above: Performed By: #### C BC #### [facility] [address] [address] [address] Nikky Man CO2 [Moles/Vol] 22.5 mmol/L Normal 21.0-32.0 [facility] Comment on above: Performed By: #### C BC #### [facility] [address] [address] [address] Nikky Man Creatinine [Mass/Vol] 2.34 mg/dL Critically high 0.70-1.30 [facility] Comment on above: Performed By: #### C BC #### [facility] [address] [address] [address] Nikky Man EGFR-AF NIGERIAN 35 mL/min/1.73m2 Critically low >=60 [facility] Comment on above: Performed By: #### C BC #### [facility] [address] [address] [address] Nikky Man EGFR-NON AF NIGERIAN 29 mL/min/1.73m2 Critically low >=60 [facility] Comment on above: Performed By: #### C BC #### [facility] [address] [address] [address] Nikky Man Glucose [Mass/Vol] 123 mg/dL Critically high 74-106 [facility] Comment on above: Performed By: #### C BC #### [facility] [address] [address] [address] Nikky Man Potassium [Moles/Vol] 5.1 mmol/L Normal 3.5-5.1 [facility] Comment on above: Performed By: #### C BC #### [facility] [address] [place], [place] [address] Dr. Nikky Man Sodium [Moles/Vol] 141 mmol/L Normal 136-145 [facility] Comment on above: Performed By: #### C BC #### [facility] [address] [place], [place] [address] Dr. Nikky Man Urea nitrogen [Mass/Vol] 27.0 mg/dL Critically high 7.0-18.0 [facility] Comment on above: Performed By: #### C BC #### [facility] [address] [address] [address] Nikky Man Urea nitrogen/Creatinine [Mass ratio] 11.5 mg/mg Normal [facility] Comment on above: Performed By: #### C BC #### [facility] [address] [place] [address] Dr. Nikky Man XR KUB 1 VIEWon [...] GEMA OTTO Date: 2022-05-01 17:19 Normal [facility] ER URINE PROFILEon 2 Bilirubin Ql (U) Negative Normal NEGATIVE [facility] Comment on above: Performed By: #### C BC #### [facility] [address] [address] [address] Nikky Man Clarity (U) CLEAR Normal CLEAR [facility] Comment on above: Performed By: #### C BC #### [facility] [address] [place], [place] [address] Dr. Nikky Man Color (U) LT. YELLOW Normal YELLOW [facility] Comment on above: Performed By: #### C BC #### [facility] [address] [address] [address] Nikky WEN A micrscopic examina tion will be performed if indicated. Normal [facility] Comment on above: Performed By: #### C BC #### [facility] [address] [address] [address] Nikky Man Glucose Ql (U) Negative Normal NEGATIVE [facility] Comment on above: Performed By: #### C BC #### [facility] [address] [address] [address] Nikky Man Hemoglobin Ql (U) LARGE Abnormal NEGATIVE [facility] Comment on above: Performed By: #### C BC #### [facility] [address] [address] [address] Nikky Man Ketones Ql (U) Negative Normal NEGATIVE [facility] Comment on above: Performed By: #### C BC #### [facility] [address] [address] [address] Nikky Man LEUKOCYTES Negative Normal NEGATIVE [facility] Comment on above: Performed By: #### C BC #### [facility] [address] [address] [address] Nikky Man Nitrite Ql (U) Negative Normal NEGATIVE [facility] Comment on above: Performed By: #### C BC #### [facility] [address] [address] [address] Nikky Man pH (U) 6.0 [pH] Normal 5-9 [facility] Comment on above: Performed By: #### C BC #### [facility] [address] [address] [address] Nikky Man SPEC GRAVITY 1.015 Normal 1.005-<=1. 025 [facility] Comment on above: Performed By: #### C BC #### [facility] [address] [address] [address] Nikky Man UA PROTEIN TRACE Normal NEGATIVE/ TRACE [facility] Comment on above: Performed By: #### C BC #### [facility] [address] [place] [address] Dr. Nikky Man UR MICRO IND INDICATED Normal [facility] Comment on above: Performed By: #### C BC #### [facility] [address] [place] [address] Dr. Nikky Man Urobilinogen Qn (U) 0.2 {Chandni'U}/dL Normal 0.2 - 1. 0 [facility] Comment on above: Performed By: #### C BC #### [facility] [address] [place] [address] Dr. Nikky Man URINE MICROSCOPIC ONLYon BACTERIA NONE SEEN Normal NONE SEEN [facility] Comment on above: Performed By: #### C BC #### [facility] [address] [place] [address] Dr. Nikky Man Bacteria identified Cx Nom (U) NOT INDICATED Normal [facility] Comment on above: Performed By: #### C BC #### [facility] [address] [place] [address] Dr. Nikky Man CAST NONE SEEN Normal NONE SEEN [facility] Comment on above: Performed By: #### C BC #### [facility] [address] [place] [address] Dr. Nikky Man Crystals LM Nom (Urine sed) NONE SEEN Normal NONE SEEN [facility] Comment on above: Performed By: #### C BC #### [facility] [address] [place] [address] Dr. Nikky Man Epithelial cells LM Ql (Urine sed) RARE Normal NONE SEEN /RARE [facility] Comment on above: Performed By: #### C BC #### [facility] [address] [place] [address] Dr. Nikky Man MUCOUS NONE SEEN Normal NONE SEEN [facility] Comment on above: Performed By: #### C BC #### [facility] [address] [place] [address] Dr. Nikky Man RBC 20-50 Abnormal 0-2 [facility] Comment on above: Performed By: #### C BC #### [facility] [address] [place] [address] [address] [address] Nikky Man WBC 0-2 Abnormal NONE SEEN [facility] Comment on above: Performed By: #### C #### [facility] [address] [place], [place] [address] Dr. Nikky SANON Miscellaneous test 1on 06-05-2019 Miscellaneous Test 1 SEE NOTE Normal [facility] Comment on above: Result Comment: Test name Result Flag Units RefIntvl ------- PCA3 by TMA - Score 5 0-24 PCA3 by TMA - Result Negative A negative result is associated with decreased likelihood of a positive biopsy for prostate cancer. INTERPRETIVE DATA: PCA3 by TMA The [employer] PCA3 assay is an in vitro nucleic acid amplification test utilizing target capture, bill sorter-mediated amplification, and a hybridization-protection assay for [...] history and other relevant data. Performed by [employer], [address] [place] [id number] [email or web address], Jae Marquez MD - Lab. Director Performed By: #### [id number] #### [facility] [address] [place] [id number] [phone] [facility] Miscellaneous test 1on 05-29-2019 [facility] Prompt [id number] Normal [facility] Comment on above: Result Comment: Ca ected result; previously reported as pca3 [id number] on 05/28/2019 at 19:45 by V/AUT Performed By: #### [id number] #### [facility] [address] [place] [address] Urinalysis, reflex to micros copicon 11-28-2018 Bilirubin Ql (U) Negative Normal Negative [facility] Clarity (U) Clear Normal Clear [facility] Color (U) Yellow Normal [facility] Glucose Ql (U) >=1000 Abnormal Negative [facility] Hemoglobin Ql (U) Negative Normal Negative [facility] Ketones Ql (U) Negative Normal Negative [facility] Leukocyte esterase Test strip Ql (U) Negative Normal Negative [facility] Nitrite Ql (U) Negative Normal Negative [facility] pH (U) 5.5 [pH] Normal 5.0-9.0 [facility] Protein Ql (U) Negative Normal Negative [facility] Specific gravity (U) [Rel density] 1.031 Normal 1.005-1.03 [facility] Urobilinogen Qn (U) 0.2 {Chandni'U}/dL Normal < 2.0 [facility] Vital Signs Date Time Vital Sign Value Performing Clinician Facility 06-10-2025 10:00-0400 Body height 176.53 cm Sp Ball DO Work Phone: [facility] 06-10-2025 10:00-0400 Body mass index (BMI) [Ratio] 30.8 kg/m2 Sp Ball DO Work Phone: [facility] 06-10-2025 10:00-0400 Body weight 96.16 kg Sp Ball DO Work Phone: [facility] 06-09-2025 11:45-0400 Body height 176.53 cm Sp Ball DO Work Phone: [facility] 06-09-2025 11:45-0400 Body mass index (BMI) [Ratio] 31.1 kg/m2 Sp Ball DO Work Phone: [facility] 06-09-2025 11:45-0400 Body weight 97.18 kg Sp Ball DO [facility] [facility] 06-09-2025 11:45-0400 Diastolic blood pressure 89 mm[Hg] Sp Ball DO Work Phone: [facility] 06-09-2025 11:45-0400 Heart rate 73 /min Sp Ball DO Work Phone: [facility] 06-09-2025 11:45-0400 Respiratory rate 12 /min Sp Ball DO Work Phone: [facility] 06-09-2025 11:45-0400 Systolic blood pressure 139 mm[Hg] Sp Ball DO Work Phone: [facility] 06-02-2025 11:17-0400 Diastolic blood pressure 91 mm[Hg] Noelle Vega MD Work Phone: [facility] [place] 06-02-2025 11:17-0400 Heart rate 82 /min Noelle Vega MD Work Phone: [facility] [place] 06-02-2025 11:17-0400 Systolic blood pressure 150 mm[Hg] Noelle Vega MD Work Phone: [facility] [place] 05-29-2025 10:00-0400 Diastolic blood pressure 69 mm[Hg] Sp Ball DO Work Phone: [facility] 05-29-2025 10:00-0400 Heart rate 75 /min Sp Ball DO Work Phone: [facility] 05-29-2025 10:00-0400 Respiratory rate 20 /min Sp Ball DO Work Phone: [facility] 05-29-2025 10:00-0400 SaO2% (BldA) [Mass fraction] 99 % Sp Ball DO Work Phone: [facility] 05-29-2025 10:00-0400 Systolic blood pressure 118 mm[Hg] Sp Ball DO Work Phone: [facility] 05-29-2025 08:47-0400 Body height 176.53 cm Sp Ball DO Work Phone: [facility] 05-29-2025 08:47-0400 Body temperature 97.4 [degF] Sp Ball DO Work Phone: [facility] 05-29-2025 08:47-0400 Body weight 97.06 kg Sp Ball DO Work Phone: [facility] 04-21-2025 11:43-0400 Body height 177.8 cm [facility] 04-21-2025 11:43-0400 Body mass index (BMI) [Ratio] 31.6 kg/m2 [facility] 04-21-2025 11:43-0400 Body weight 100.01 kg [facility] 04-21-2025 11:43-0400 Diastolic blood pressure 83 mm[Hg] [facility] 04-21-2025 11:43-0400 Heart rate 79 /min [facility] 04-21-2025 11:43-0400 Respiratory rate 12 /min [facility] 04-21-2025 11:43-0400 Systolic blood pressure 155 mm[Hg] [facility] 01-26-2025 11:44-0400 Body height 177.8 cm [facility] 01-26-2025 11:44-0400 Body mass index (BMI) [Ratio] 32.1 kg/m2 [facility] 01-26-2025 11:44-0400 Body weight 101.6 kg [facility] 01-26-2025 11:44-0400 Diastolic blood pressure 77 mm[Hg] [facility] 01-26-2025 11:44-0400 Heart rate 77 /min [facility] 01-26-2025 11:44-0400 Respiratory rate 12 /min [facility] 01-26-2025 11:44-0400 Systolic blood pressure 156 mm[Hg] [facility] 12-15-2024 13:52-0500 Body temperature 97.52 [degF] Pelon COLES [facility] 12-15-2024 13:52-0500 Diastolic blood pressure 82 mm[Hg] Pelon COLES [facility] 12-15-2024 13:52-0500 Systolic blood pressure 128 mm[Hg] Pelon COLES [facility] 09-30-2024 11:40-0500 Body height 177.8 cm [facility] 09-30-2024 11:40-0500 Body mass index (BMI) [Ratio] 30.7 kg/m2 [facility] 09-30-2024 11:40-0500 Body weight 97.29 kg [facility] 09-30-2024 11:40-0500 Diastolic blood pressure 84 mm[Hg] [facility] 09-30-2024 11:40-0500 Heart rate 76 /min [facility] 09-30-2024 11:40-0500 Respiratory rate 12 /min [facility] 09-30-2024 11:40-0500 Systolic blood pressure 148 mm[Hg] [facility] 05-27-2024 11:30-0400 Body height 177.8 cm [facility] 05-27-2024 11:30-0400 Body mass index (BMI) [Ratio] 32 kg/m2 [facility] 05-27-2024 11:30-0400 Body weight 101.26 kg [facility] 05-27-2024 11:30-0400 Diastolic blood pressure 90 mm[Hg] [facility] 05-27-2024 11:30-0400 Heart rate 65 /min [facility] 05-27-2024 11:30-0400 Respiratory rate 12 /min [facility] 05-27-2024 11:30-0400 Systolic blood pressure 159 mm[Hg] [facility] 05-05-2024 11:07-0400 Blood Pressure Location Pelon COLES [facility] 05-05-2024 11:07-0400 Body temperature 98.6 [degF] Pelon COLES [facility] 05-05-2024 11:07-0400 Diastolic blood pressure 86 mm[Hg] Pelon COLES [facility] 05-05-2024 11:07-0400 Heart rate 85 /min Pelon COLES [facility] 05-05-2024 11:07-0400 Respiratory rate 16 /min Pelon COLES [facility] 05-05-2024 11:07-0400 Systolic blood pressure 139 mm[Hg] Pelon COLES [facility] 03-25-2024 09:00-0400 Body height 177.8 cm [facility] 03-25-2024 09:00-0400 Body mass index (BMI) [Ratio] 34.1 kg/m2 [facility] 03-25-2024 09:00-0400 Body weight 107.95 kg [facility] 03-25-2024 09:00-0400 Diastolic blood pressure 84 mm[Hg] [facility] 03-25-2024 09:00-0400 Heart rate 81 /min [facility] 03-25-2024 09:00-0400 Respiratory rate 12 /min [facility] 03-25-2024 09:00-0400 Systolic blood pressure 158 mm[Hg] [facility] 01-22-2024 11:26-0500 Body height 177.8 cm [facility] 01-22-2024 11:26-0500 Body mass index (BMI) [Ratio] 34.8 kg/m2 [facility] 01-22-2024 11:26-0500 Body weight 110.22 kg [facility] 01-22-2024 11:26-0500 Diastolic blood pressure 77 mm[Hg] [facility] 01-22-2024 11:26-0500 Heart rate 78 /min [facility] 01-22-2024 11:26-0500 Respiratory rate 16 /min [facility] 01-22-2024 11:26-0500 Systolic blood pressure 160 mm[Hg] [facility] 01-10-2024 08:43-0500 Body height 177.8 cm [facility] 01-10-2024 08:43-0500 Body mass index (BMI) [Ratio] 34.2 kg/m2 [facility] 01-10-2024 08:43-0500 Body weight 108.12 kg [facility] 01-10-2024 08:43-0500 Diastolic blood pressure 76 mm[Hg] [facility] 01-10-2024 08:43-0500 Heart rate 75 /min [facility] 01-10-2024 08:43-0500 Respiratory rate 12 /min [facility] 01-10-2024 08:43-0500 Systolic blood pressure 173 mm[Hg] [facility] 12-17-2023 11:31-0500 Blood Pressure Location [...] Body height 177.8 cm Sp Ball Other [facility] 10-23-2023 11:30-0500 Body mass index (BMI) [Ratio] 32.77 kg/m2 Sp Ball Other [facility] Other 10-23-2023 11:30-0500 Body weight 103.6 kg Sp Ball Other [facility] 10-23-2023 11:30-0500 Diastolic blood pressure 89 mm[Hg] Sp Ball Other [facility] 10-23-2023 11:30-0500 Systolic blood pressure 162 mm[Hg] Sp Ball Other [facility] 10-05-2023 14:15-0500 Blood Pressure Location Duran CRANDALL [facility] [place] 10-05-2023 14:15-0500 Diastolic blood pressure 82 mm[Hg] Duran NILL [facility] [place] 10-05-2023 14:15-0500 Heart rate 80 /min Duran NILL [facility] [place] 10-05-2023 14:15-0500 Respiratory rate 16 /min Duran NILL [facility] [place] 10-05-2023 14:15-0500 Systolic blood pressure 144 mm[Hg] Duran NILL [facility] [place] 04-24-2023 11:00-0400 Body height 177.8 cm Sp Ball Other [facility] Other 04-24-2023 11:00-0400 Body mass index (BMI) [Ratio] 34.38 kg/m2 Sp Ball Other [facility] Other 04-24-2023 11:00-0400 Body weight 108.68 kg Sp Ball Other [facility] Other 04-24-2023 11:00-0400 Diastolic blood pressure 80 mm[Hg] Sp Ball Other [facility] Other 04-24-2023 11:00-0400 Respiratory rate 12 /min Sp Ball Other [facility] Other 04-24-2023 11:00-0400 Systolic blood pressure 138 mm[Hg] Sp Ball Other [facility] Other 02-14-2023 15:15-0400 Body height 177.8 cm Alfonzo Ashford II Other [facility] Other 02-14-2023 15:15-0400 Body mass index (BMI) [Ratio] 35.15 kg/m2 Alfonzo Ashford II Other [facility] Other 02-14-2023 15:15-0400 Body weight 111.13 kg Alfonzo Ashford II Other [facility] Other 01-22-2023 11:00-0500 Body height 177.8 cm Sp Ball Other [facility] Other 01-22-2023 11:00-0500 Body mass index (BMI) [Ratio] 35.44 kg/m2 Sp Ball Other [facility] Other 01-22-2023 11:00-0500 Body weight 112.04 kg Sp Ball Other [facility] Other 01-22-2023 11:00-0500 Diastolic blood pressure 84 mm[Hg] Sp Ball Other [facility] Other 01-22-2023 11:00-0500 Respiratory rate 12 /min Sp Ball Other [facility] Other 01-22-2023 11:00-0500 Systolic blood pressure 136 mm[Hg] Sp Ball Other [facility] Other 12-18-2022 15:12-0500 Blood Pressure Location Pelon [...] 127 mm[Hg] Pelon COLES [facility] 12-14-2022 15:30-0500 Body height 177.8 cm Alfonzo [place] TIMMY Other [facility] Other 12-14-2022 15:30-0500 Body mass index (BMI) [Ratio] 34.29 kg/m2 Alfonzo [place] TIMMY Other [facility] Other 12-14-2022 15:30-0500 Body weight 108.41 kg Alfonzo Ashford II Other [facility] Other 08-28-2022 09:20-0400 Diastolic blood pressure 84 mm[Hg] Pacc 2 Work Phone: [facility] 08-28-2022 09:20-0400 Heart rate 72 /min Pacc 2 Work Phone: [facility] 08-28-2022 09:20-0400 Systolic blood pressure 152 mm[Hg] Pacc 2 Work Phone: [facility] 08-28-2022 09:16-0400 Body height 175.3 cm Pacc 2 Work Phone: [facility] [place] 08-28-2022 09:16-0400 Body temperature 98.49 [degF] Pacc 2 Work Phone: [facility] 08-28-2022 09:16-0400 Body weight 105.23 kg Pacc 2 Work Phone: [facility] 08-28-2022 09:16-0400 Respiratory rate 16 /min Pacc 2 Work Phone: [facility] [place] 08-28-2022 09:16-0400 SaO2% (BldA) [Mass fraction] 98 % Pacc 2 Work Phone: [facility] [place] 08-11-2022 10:49-0400 Body weight 99.79 kg Noelle Vega MD Work Phone: [facility] [place] 08-11-2022 10:49-0400 Diastolic blood pressure 89 mm[Hg] Noelle Vega MD Work Phone: [facility] [place] 08-11-2022 10:49-0400 Heart rate 66 /min Noelle Vega MD Work Phone: [facility] 08-11-2022 10:49-0400 Systolic blood pressure 176 mm[Hg] Noelle Vega MD Work Phone: [facility] 03-13-2022 15:03-0400 Blood Pressure Location Pelon COLES [facility] 03-13-2022 15:03-0400 Diastolic blood pressure 87 mm[Hg] Pelon COLES [facility] 03-13-2022 15:03-0400 Heart rate 78 /min Pelon COLES [facility] 03-13-2022 15:03-0400 Systolic blood pressure 164 mm[Hg] Pelon COLES [facility] Encounters Encounter Date Encounter Type Care Provider Facility Start: 06-30-2025 End: 06-30-2025 Telephone encounter Tanvir Madison MD Work Phone: Urology Comment on above: Patient Question Start: 06-25-2025 ambulatory NOELLE VEGA Facility:[facility] Start: 06-10-2025 End: 06-10-2025 ambulatory Sp Chowdary DO Work Phone: [facility] Work Phone: Start: 06-10-2025 End: 06-10-2025 Patient encounter procedure Shawn Denney [facility] Work Phone: Start: 06-09-2025 End: 06-09-2025 ambulatory Sp Chowdary DO Work Phone: [facility] Work Phone: Start: 06-09-2025 End: 06-09-2025 Patient encounter procedure Sp Chowdary DO [facility] Work Phone: Start: 06-02-2025 End: 06-02-2025 Patient encounter procedure Noelle Vega MD Work Phone: Urology Comment on above: Elevated prostate sp ecific antigen (PSA) (Primary Dx); History of nephrolithiasis; BPH with obstruction/lower urinary tract symptoms; Calculus of kidney; Encounter for observation for other suspected diseases and conditions ruled out; Prostate cancer screening; Gross hematuria; Screening for genitourinary condition; Personal history of malignant neoplasm of bladder Start: 06-02-2025 End: 06-02-2025 ambulatory NOELLE VEGA Facility:[facility] Start: 05-29-2025 End: 05-29-2025 ambulatory Shawn Denney Facility:[facility] Start: 05-29-2025 Non-patient / Non-visit Shawn fitzpatrick [facility] Work Phone: Start: 05-20-2025 End: 05-20-2025 ambulatory Sp Chowdary DO Work Phone: [facility] Work Phone: Start: 05-20-2025 End: 05-20-2025 Patient encounter procedure Shawn Denney [facility] Work Phone: Start: 05-20-2025 End: 05-20-2025 Patient encounter procedure Shawn Denney DO -[facility] Start: 05-20-2025 End: 05-20-2025 ambulatory Sp Chowdary DO Work Phone: [facility] Work Phone: Start: 05-18-2025 End: 05-18-2025 ambulatory Pelon COLES Facility:[facility] Start: 05-18-2025 End: 05-18-2025 Lab Drop off Pelon Sil SANKET [facility] Start: 05-18-2025 End: 05-18-2025 ambulatory Pelon COLES Facility:[facility] Start: 05-18-2025 End: 05-18-2025 Patient encounter procedure Pelon COLES [facility] Start: 05-11-2025 Non-patient / Non-visit Pelon lowry MD -[facility] Work Phone: Start: 05-05-2025 End: 05-05-2025 Patient encounter procedure Sam Adrian -[facility] [place] Work Phone: Start: 04-21-2025 End: 04-21-2025 ambulatory [facility] Work Phone: Start: 04-21-2025 End: 04-21-2025 Patient encounter procedure [facility] Work Phone: Start: 02-27-2025 End: 02-27-2025 ambulatory Pelon COLES Facility:[facility] Start: 02-11-2025 Non-patient / Non-visit [facility] Work Phone: Start: 01-26-2025 End: 01-26-2025 ambulatory [facility] Work Phone: Start: 01-26-2025 End: 01-26-2025 Encounter for general adult medical examination without abnormal findings [facility] Start: 01-26-2025 End: 01-26-2025 Patient encounter procedure [facility] Work Phone: Start: 12-15-2024 End: 12-15-2024 ambulatory Pelon COLES Facility:[facility] Start: 12-15-2024 End: 12-15-2024 Patient encounter procedure Pelon R COLES [facility] Start: 11-22-2024 End: 11-22-2024 Letter encounter [facility] Start: 09-30-2024 End: 09-30-2024 ambulatory [facility] Work Phone: Start: 09-30-2024 End: 09-30-2024 Patient encounter procedure [facility] Work Phone: Start: 09-24-2024 Non-patient / Non-visit [facility] Work Phone: Start: 09-15-2024 ambulatory Pelon Escalonai ty:[facility] [place] Start: 08-25-2024 ambulatory Pelon Escalonai ty:[facility] Start: 07-29-2024 End: 07-29-2024 ambulatory [facility] Work Phone: Start: 07-29-2024 End: 07-29-2024 Patient encounter procedure [facility] Work Phone: Start: 06-26-2024 ambulatory Pelon Sil SANKET Valenzuela ty:[id number] Start: 06-10-2024 Non-patient / Non-visit [facility] Work Phone: Start: 05-27-2024 End: 05-27-2024 ambulatory [facility] Work Phone: Start: 05-27-2024 End: 05-27-2024 Patient encounter procedure [facility] Work Phone: Start: 05-23-2024 Non-patient / Non-visit [facility] Work Phone: Start: 05-20-2024 End: 05-20-2024 Patient encounter procedure Pelon COLES [facility] Start: 05-12-2024 Non-patient / Non-visit [facility] Work Phone: Start: 05-05-2024 End: 05-05-2024 Lab Drop off Pelon COLES [facility] Start: 05-05-2024 End: 05-05-2024 ambulatory Pelon COLES Facility:[id number] Start: 05-05-2024 End: 05-05-2024 Patient encounter procedure Pelon COLES [facility] Start: 03-25-2024 End: 03-25-2024 ambulatory [facility] Work Phone: Start: 03-25-2024 End: 03-25-2024 Patient encounter procedure [facility] Work Phone: Start: 02-22-2024 Non-patient / Non-visit [facility] Work Phone: Start: 02-01-2024 Non-patient / Non-visit [facility] Work Phone: Start: 01-26-2024 Non-patient / Non-visit [facility] Work Phone: Start: 01-22-2024 End: 01-22-2024 Encounter for general adult medical examination without abnormal findings [facility] Start: 01-22-2024 End: 01-22-2024 Patient encounter procedure [facility] Work Phone: Start: 01-10-2024 End: 01-10-2024 ambulatory [facility] Work Phone: Start: 01-10-2024 End: 01-10-2024 Patient encounter procedure [facility] Work Phone: Start: 12-17-2023 End: 12-17-2023 Patient encounter procedure Pelon Mujica COLES [facility] Start: 11-28-2023 End: 11-28-2023 Lab Drop off Pelon Mujica COLES [facility] Start: 11-27-2023 End: 11-27-2023 Patient encounter procedure Pelon Mujica SANKET [facility] Start: 11-23-2023 End: 11-23-2023 ambulatory Sp Chowdary Other [facility] Other Start: 11-23-2023 Telephone encounter Sp Chowdary [facility] Start: 11-14-2023 End: 11-14-2023 Patient encounter procedure Duran CRANDALL [facility] Start: 11-01-2023 End: 11-01-2023 ambulatory Sp Chowdary Other [facility] Other Start: 11-01-2023 Telephone encounter Sp Chowdary [facility] Start: 10-29-2023 End: 10-29-2023 Patient encounter procedure [facility] R [facility]ES [facility] Start: 10-23-2023 End: 10-23-2023 ambulatory Sp Chowdary Other [facility] Other Start: 10-23-2023 Office outpatient vi sit 25 minutes Sp Chowdary [facility] Start: 10-23-2023 End: 10-23-2023 Patient encounter procedure [facility] Work Phone: Start: 10-05-2023 End: 10-05-2023 Patient encounter procedure Duran CRANDALL General [facility] [place] Start: 09-11-2023 End: 09-11-2023 ambulatory DO Sp Chowdary Work Phone: [facility] Work Phone: Start: 09-11-2023 End: 09-11-2023 Patient encounter procedure DO Sp Chowdary Work Phone: [facility] [place] Work Phone: Start: 09-02-2023 End: 09-02-2023 ambulatory Sp Chowdary Other [facility] Other Start: 09-02-2023 Telephone encounter Sp JOHNSON [facility] Start: 08-08-2023 End: 08-08-2023 ambulatory Sp Chowdary Other [facility] Other Start: 08-08-2023 Nursing evaluation o f patient and report Sp Chowdary [facility] Start: 07-20-2023 End: 07-20-2023 ambulatory Sp Chowdary Other [facility] Other Start: 07-20-2023 Telephone encounter Sp Chowdary [facility] Start: 05-15-2023 End: 05-15-2023 ambulatory Sp Chowdary Other [facility] Other Start: 05-15-2023 Telephone encounter Sp JOHNSON [facility] Start: 04-26-2023 ambulatory AKILA RIVERA . Facili ty:[facility] Start: 04-24-2023 End: 04-24-2023 ambulatory Sp Chowdary Other [facility] Other Start: 04-24-2023 Office outpatient vi sit 25 minutes Sp GARCIA [facility] Start: 04-10-2023 ambulatory NARENDRANATH LAKSHMIPATHY . Facility:[facility] Start: 03-23-2023 End: 03-24-2023 ambulatory AKILA RIVERA . Facility:[facility] Start: 03-08-2023 End: 03-08-2023 ambulatory Sp Chowdary Other [facility] Other Start: 03-08-2023 Telephone encounter Sp Marino [employer] Start: 03-06-2023 End: 03-06-2023 ambulatory NARENDRANATH LAKSHMIPATHY . Facility:[facility] Start: 02-26-2023 Encounter for genera l adult medical examination without abnormal findings NARENDRANATH LAKSHMIPATHY . [facility] Start: 02-22-2023 End: 02-23-[address] SP CHOWDARY Facility:[facility] Start: 02-22-2023 End: 02-23-2023 ambulatory NARENDRANATH LAKSHMIPATHY . Facility:[facility] Start: 02-22-2023 End: 02-23-2023 ambulatory NARENDRANATH LAKSHMIPATHY . Facility:[facility] Start: 02-22-2023 End: 02-23-2023 Encounter for general adult medical examination without abnormal findings NARENDRANATH LAKSHMIPATHY . Facility:[facility] Start: 02-14-2023 End: 02-14-2023 ambulatory Alfonzo Ashford II Other [facility] Other Start: 02-14-2023 Office outpatient vi sit 25 minutes Alfonzo Ashford II [facility] Start: 02-05-2023 End: 02-05-2023 ambulatory Sp Chowdary Other [facility] Other Start: 02-05-2023 Telephone encounter Sp [facility] Start: 01-22-2023 End: 01-22-2023 ambulatory Sp Chowdary Other [facility] Other Start: 01-22-2023 Encounter for genera l adult medical examination without abnormal findings Sp Chowdary [facility] Start: 01-22-2023 Periodic preventive med est patient 40-64yrs Sp Chowdary [facility] Start: 12-18-2022 End: 12-18-2022 Patient encounter procedure Pelon COLES [facility] Start: 12-14-2022 End: 12-14-2022 ambulatory Alfonzo Ashford II Other [place] [employer] Other Start: 12-14-2022 FQ visit new patient Alfonzo boo II [facility] Start: 12-12-2022 End: 12-12-2022 Patient encounter procedure Duran CRANDALL General Surgery [facility] [place] Start: 12-05-2022 End: 12-06-[address] PELON COLES . Facility: Start: 11-28-2022 [facility] Start: 09-27-2022 End: 09-28-[address] PELON COLES . 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 Start: 08-28-2022 End: 08-28-2022 ambulatory Pacc 2 Work Phone: Pre Anesthesia Comment on above: Pre-op evaluation (P rimary Dx); Hypertension, unspecified type; POTS (postural orthostatic tachycardia syndrome); Hyperlipidemia, unspecified hyperlipidemia type; Type 2 diabetes mellitus without complication, with long-term current use of insulin (HCC); Malignant neoplasm of urinary bladder, unspecified site (HCC); KUNAL (obstructive sleep apnea); BMI 34.0-34.9,adult Start: 08-28-2022 End: 08-28-2022 Preprocedural examination done Pac 2 Work Phone: Pre Anesthesia Start: 08-28-2022 End: 08-28-2022 Subsequent hospital visit by physician [facility] [place] [facility] ([facility] Work Phone: [facility] Radiology CT Scan Comment on above: Calculus of kidney w ith calculus of ureter [N20.2] Start: 08-24-2022 Telephone encounter Noelle banuelos MD Work Phone: Urology Comment on above: Schedule Surgery Start: 08-16-2022 Telephone encounter Noelle banuelos MD Work Phone: Urology Comment on above: Other (CD from [facility] XR KUB) Start: 08-11-2022 ambulatory Jennifer Singleton RN [facility] Start: 08-11-2022 End: 08-11-2022 Patient encounter procedure [...] preprocedural examination DR PELON COLES . [facility] Start: 05-05-2022 End: 05-05-[address] PELON [...] End: 03-14-2022 Patient encounter procedure Pelon COLES [facility] Start: 03-13-2022 End: 03-13-2022 Patient encounter procedure Pelon COLES [facility] Start: 01-19-2022 Adult health examination Rohan Chowdary Other [facility] Other Start: 02-26-2017 End: 02-27-2017 ambulatory UNKNOWN PROVIDER Facility:[facility] Procedures Date Procedure Procedure Detail Performing Clinician Start: 06-02-2025 Urnls dip stick/tablet rgnt auto w/o microscopy Noelle Vega MD Work Phone: Start: 05-20-2025 Plain X-ray of right hand Sp Chowdary DO Work Phone: Start: 05-19-2025 History of decompression of median nerve History of carpal tunnel surgery of right wrist Sp Chowdary DO Start: 11-27-2023 Transrectal biopsy of prostate using ultrasound guidance Pelon COLES Start: 11-27-2023 Transurethral insertion of prostatic urethral lift implant Pelon COLES Start: 10-31-2023 Colonoscopy Duran CRANDALL Start: 10-31-2023 Esophagogastroduodenoscopy Duran CRANDALL Start: 09-11-2023 MR prostate wo/w con DO Sp Chowdary Work Phone: Start: 09-26-2022 Urnls dip stick/tablet rgnt auto w/o microscopy Noelle Vega MD Work Phone: Start: 08-28-2022 Ct abdomen & pelvis w/o [...] for malign ant neoplasm of prostate Sp Ball Other Transurethral water vapor ablation of prostate Pelon COLES Plan of Treatment Date Care Activity Detail Author Start: 2037 RSV vaccine (adult) (1 - 1-dose 75+ series) RSV vaccine (adult) (1 - 1-dose 75+ series) [facility] Start: 02-18-2027 PROSTATE CANCER SCREENING DISCUSSION PROSTATE CANCER SCREENING DISCUSSION [facility] Start: 02-18-2027 Prostate specific antigen measurement Prostate Cancer Screening Discussion [facility] Start: 11-16-2025 ambulatory Ambulatory Facility:[facility] Start: 07-20-2025 Influenza vaccination Influenza Vaccine (#1) [facility] Start: 07-08-2025 End: 07-08-2025 Patient encounter procedure Urology Comment on above: MRI Fusion biopsy discussion/MRI negat [facility] Start: 06-25-2025 End: 06-25-2025 Patient encounter procedure 06/25/2025 2:00 PM EDT Appointment [facility] [place] [address] [place], [place] [id number] MRI PROSTATE WO/W [facility] Radiology MRI Comment on above: MRI PROSTATE WO/W IVCON Start: 06-15-2025 ambulatory Ambulatory Facility:[facility] Start: 06-02-2025 End: 09-01-2025 PSA/PROSTATE SPECIFIC ANTIGEN SCREENING PSA/PROSTATE SPECIFIC ANTIGEN SCREENING Lab Routine Elevated prostate specific antigen (PSA) Prostate cancer screening Expected: 06/02/2025, Expires: 09/01/2025 [facility] Comment on above: Expected: 06/02/2025, Expires: Start: 05-25-2025 [facility] Start: 05-20-2025 Plain X-ray of right hand XR hand RT min 3V* [facility] Start: 05-20-2025 XR Hand - right GE 3 Views [facility] Start: 07-20-2024 COVID-19 Vaccine ( season) COVID-19 Vaccine ( season) [facility] Start: 07-20-2024 Influenza vaccination Influenza Vaccine (#1) [facility] Start: 02-26-2023 Hemoglobin A1c measurement HbA1C [facility] Start: 02-26-2023 Hemoglobin A1c/Hemoglobin.total in Blood HBA1C [facility] Start: 09-19-2022 End: 11-19-2022 Basic metabolic 2000 panel - Serum or Plasma BASIC METABOLIC PNL Lab Routine Hyperkalemia Expected: 09/19/2022 (Approximate), Expires: 11/19/2022 [facility] Work Phone: Comment on above: Expected: 09/19/2022 (Approximate), Expi res: 11/19/2022 Start: 08-28-2022 End: 10-28-2022 aPTT in Platelet poor plasma by Coagulation assay ACTIVATED PTT Lab Routine Nephrolithiasis Gross hematuria Expected: 08/28/2022, Expires: 10/28/2022 [facility] Work Phone: Comment on above: Expected: 08/28/2022, Expires: 2 Start: 08-28-2022 End: 10-28-2022 Bacteria identified in Urine by Culture URINE CULTURE Microbiology Routine Nephrolithiasis Expected: 08/28/2022, Expires: 10/28/2022 [facility] Work Phone: Comment on above: Expected: 08/28/2022, Expires: 2 Start: 08-28-2022 End: 10-28-2022 CBC W Auto Differential panel - Blood CBC + DIFF Lab Routine Nephrolithiasis Expected: 08/28/2022, Expires: 10/28/2022 [facility] Work Phone: Comment on above: Expected: 08/28/2022, Expires: 2 Start: 08-28-2022 End: 10-28-2022 Comprehensive metabolic 2000 panel - Serum or Plasma COMP METABOLIC PANEL Lab Routine Nephrolithiasis Expected: 08/28/2022, Expires: 10/28/2022 [facility] Work Phone: Comment on above: Expected: 08/28/2022, Expires: 2 Start: 08-28-2022 End: 10-28-2022 CONFIRM BLOOD TYPE CONFIRM BLOOD TYPE Blood Bank Routine Pre-op evaluation Expected: 08/28/2022, Expires: 10/28/2022 [facility] Work Phone: Comment on above: Expected: 08/28/2022, Expires: 2 Start: 08-28-2022 End: 10-28-2022 Hemoglobin A1c in Blood [facility] Work Phone: Comment on above: Expected: 08/28/2022, Expires: 2 Start: 08-28-2022 End: 10-28-2022 PT panel - Platelet poor plasma by Coagulation assay PROTHROMBIN TIME/PT Lab Routine Nephrolithiasis Gross hematuria Expected: 08/28/2022, Expires: 10/28/2022 [facility] Work Phone: Comment on above: Expected: 08/28/2022, Expires: 2 Start: 08-28-2022 End: 10-28-2022 TYPE AND SCREEN,30 DAY TYPE AND SCREEN,30 DAY Blood Bank Routine Nephrolithiasis Expected: 08/28/2022, Expires: 10/28/2022 [facility] Work Phone: Comment on above: Expected: 08/28/2022, Expires: 2 Start: 08-19-2022 Influenza vaccination Influenza Vaccine (#1) [facility] Start: 08-11-2022 End: 10-11-2022 25-hydroxyvitamin D3 [Mass/volume] in Serum or Plasma VITAMIN D 25 HYDROXY Lab Routine Nephrolithiasis Secondary hyperparathyroidism of renal origin (HCC) Expected: 08/11/2022, Expires: 10/11/2022 [facility] Work Phone: Comment on above: Expected: 08/11/2022, Expires: 2 Start: 08-11-2022 End: 10-11-2022 Parathyrin.intact [Mass/volume] in Serum or Plasma PTH INTACT BLD Lab Routine Nephrolithiasis Expected: 08/11/2022, Expires: 10/11/2022 [facility] Work Phone: Comment on above: Expected: 08/11/2022, Expires: 2 Start: 08-11-2022 End: 10-11-2022 Urinalysis complete panel - Urine URINALYSIS, WITH MICROSCOPIC Lab Routine Nephrolithiasis Expected: 08/11/2022, Expires: 10/11/2022 [facility] Work Phone: Comment on above: Expected: 08/11/2022, Expires: 2 Start: 2022 Hepatitis B (HBV) Vaccine (optional start 60+ years) Hepatitis B (HBV) Vaccine (optional start 60+ years) [facility] Start: 2022 RSV Vaccine (1 - Risk 60-74 years 1-dose series) RSV Vaccine (1 - Risk 60-74 years 1-dose series) [facility] Start: 11-19-2021 DEPRESSION ASSESSMENT DEPRESSION ASSESSMENT [facility] Start: 11-19-2017 Annual wellness visit Annual Wellness Visit ([id number]) [facility] Start: 2017 PROSTATE CANCER SCREENING DISCUSSION PROSTATE CANCER SCREENING DISCUSSION [facility] Start: 02-22-2012 Measurement of occult blood in single stool specimen FIT [facility] Start: 02-22-2012 Screening for malignant neoplasm of colon CRC Screening [facility] Start: 02-22-2012 Shingles (RZV) Vaccine (1 of 2) Shingles (RZV) Vaccine (1 of 2) [facility] Start: 02-22-2012 SHINGRIX VACCINE (1 of 2) SHINGRIX VACCINE (1 of 2) [facility] Start: 2007 COLOGUARD (FIT-DNA) COLOGUARD (FIT-DNA) [facility] Start: 2007 Colonoscopy COLONOSCOPY [facility] Start: 2007 COLORECTAL CANCER SCREENING COLORECTAL CANCER SCREENING [facility] Start: [address] COLONOGRAPHY [facility] Start: 2007 DIABETES SCREEN DIABETES SCREEN [facility] Start: 2007 FECAL OCCULT BLOOD FECAL OCCULT BLOOD [facility] Start: 2007 Screening for malignant neoplasm of colon [facility] Start: 2007 SIGMOIDOSCOPY SIGMOIDOSCOPY [facility] Start: 10-03-2001 Urine microalbumin profile DTaP,Tdap,Td Vaccine (1 - Tdap) [facility] Start: 07-20-2001 Medicare Annual Wellness Visit Medicare Annual Wellness Visit [facility] Start: 1997 Lipid panel Cholesterol [facility] Start: 1997 LIPID SCREEN LIPID SCREEN [facility] Start: 1981 Hepatitis A (HAV) Vaccine (optional start 19+ years) Hepatitis A (HAV) Vaccine (optional start 19+ years) [facility] Start: 1981 Urine microalbumin profile DTAP,TDAP,TD (1 - Tdap) [facility] Start: 02-22-1980 ANNUAL PCP TEAM CHRONIC DISEASE VISIT ANNUAL PCP TEAM CHRONIC DISEASE VISIT [facility] Start: 02-22-1980 Anxiety Screening Anxiety Screening [facility] Start: 02-22-1980 BP CONTROLLED (<130/80) BP CONTROLLED (<130/80) [facility] Start: 02-22-1980 Depression Screening Depression Screening [facility] Start: 02-22-1980 Hepatitis B surface antibody level LDL CHOLESTEROL [facility] Start: 02-22-1980 Hepatitis C screening [facility] Start: 02-22-1980 HEPATITIS C SCREENING HEPATITIS C SCREENING [facility] Start: 02-22-1980 HIV SCREENING HIV SCREENING [facility] Start: 02-22-1980 HIV screening HIV Screening [facility] Start: 02-22-1980 Tetanus + diphtheria + acellular pertussis vaccine (product) Tdap Booster [facility] Start: 1977 HIV screening HIV Test [facility] Start: 1974 Adult depression screening assessment DEPRESSION SCREENING [facility] Start: 02-22-1972 3 comp foot exam completed DIABETIC FOOT EXAM [facility] Start: 02-22-1972 Diabetic foot examination Diabetic Foot Exam [facility] Start: 02-22-1972 Glaucoma screening Dilated Retinal Exam [facility] Start: 02-22-1972 Hepatitis B screening URINE ALBUMIN:CREATININE RATIO [facility] Start: 02-22-1972 Hepatitis C antibody, confirmatory test DILATED RETINAL EXAM [facility] Start: 02-22-1968 PNEUMOCOCCAL (1 - PCV) PNEUMOCOCCAL (1 - PCV) [facility] Start: 1967 Hemoglobin A1c/Hemoglobin.total in Blood HBA1C [facility] Start: 1962 COVID-19 Vaccine (#1) COVID-19 Vaccine (#1) [facility] Start: 1962 Screening for malignant neoplasm of colon Colonoscopy [facility] metabolic 1999 panel - Serum or Plasma [facility] Comprehensive metabolic 1999 panel - Serum or Plasma [facility] End: 09-10-2023 Ct abdomen & pelvis w/o contrast material CT FLANK WO IVCON Radiology Routine Calculus of kidney with calculus of ureter 1 Occurrences starting 08/11/2022 until 09/10/2023 [facility] Work Phone: Comment on above: 1 Occurrences starting 08/11/2022 until 09/10/2023 End: 07-02-2026 MR Prostate WO and W contrast IV MRI PROSTATE WO/W IVCON Radiology Routine Encounter for observation for other suspected diseases and conditions ruled out 1 Occurrences starting 06/02/2025 until 07/02/2026 [facility] Comment on above: 1 Occurrences starting 06/02/2025 until 07/02/2026 End: 07-02-2026 MR Unspecified body region 3D post processing MRI 3D POST PROCESSING Radiology Routine Elevated prostate specific antigen (PSA) 1 Occurrences starting 06/02/2025 until 07/02/2026 [facility] Comment on above: 1 Occurrences starting 06/02/2025 until 07/02/2026 Patient Education Know your Meds [facility] Work Phone: Patient referral [facility] Work Phone: PROSTATE BIOPSY WITH MR FUSION PROSTATE BIOPSY WITH MR FUSION Procedures Routine Elevated prostate specific antigen (PSA) Ordered: 06/02/2025 [facility] Comment on above: Ordered: 06/02/2025 UA DIP, URINE (POC) UA DIP, URIN E (POC) Lab Routine Screening for genitourinary condition Ordered: 06/01/2025 [facility] Work Phone: Comment on above: Ordered: 06/01/2025 XR Hip - left 2 Views [facility] Immunizations Immunization Date Immunization Notes Care Provider Kendra garcia 02-03-2025 pneumococcal 20-scott nt conjugate vaccine Pelon COLES [facility] 07-29-2024 influenza virus vaccine, unspecified formulation Pelon COLES [facility] 07-29-2024 influenza, seasonal, injectable, preservative free [facility] 08-08-2023 influenza, injectabl e, quadrivalent, preservative free Sp Chowdary Other [facility] 07-20-2023 influenza virus vaccine, unspecified formulation Duran CRANDALL [facility] 08-13-2022 SARS-CoV-2 (COVID-19 ) [id number] Duran CRANDALL [facility] 07-26-2022 influenza virus vaccine, split virus (incl. purified surface antigen) Sp Chowdary Other [facility] 07-26-2022 influenza virus vaccine, unspecified formulation Duran CRANDALL [facility] 10-23-2021 COVID-19 Vaccine Pfi zer - Documentation Purposes Only Sp Chowdary Other [facility] 08-11-2021 influenza virus vaccine, split virus (incl. purified surface antigen) Sp Chowdary Other [facility] 08-11-2021 influenza virus vaccine, unspecified formulation [facility] 08-10-2021 influenza virus vaccine, unspecified formulation Pelon COLES [facility] 04-15-2021 SARS-CoV-2 (COVID-19 ) Ad26 vaccine, recombinant Pelon COLES [facility] 03-25-2021 SARS-CoV-2 (COVID-19 ) Ad26 vaccine, recombinant Pelon COLES [facility] 02-15-2021 SARS-CoV-2 (COVID-19 ) mRNA BNT-162b2 vax [facility] 01-25-2021 SARS-CoV-2 (COVID-19 ) mRNA BNT-162b2 vax [facility] 01-13-2021 tetanus and diphther ia toxoids, adsorbed, preservative free, for adult use (5 Lf of tetanus toxoid and 2 Lf of diphtheria toxoid) Sp Chowdary Other [facility] 07-20-2020 influenza virus vaccine, split virus (incl. purified surface antigen) Sp Chowdary Other [facility] 07-20-2020 influenza virus vaccine, unspecified formulation [facility] 08-18-2019 influenza virus vaccine, split virus (incl. purified surface antigen) Sp Chowdary Other [place] [employer] Other 08-18-2019 influenza virus vaccine, unspecified formulation [facility] 07-20-2019 influenza virus vaccine, live, attenuated, for intranasal use Pelon COLES [facility] 08-26-2018 influenza virus vaccine, split virus (incl. purified surface antigen) Sp Chowdary Other [facility] 08-26-2018 influenza virus vaccine, unspecified formulation Pelon COLES [facility] 08-31-2017 influenza virus vaccine, unspecified formulation Pelon COLES [facility] 08-31-2017 tetanus and diphther ia toxoids, adsorbed, preservative free, for adult use (5 Lf of tetanus toxoid and 2 Lf of diphtheria toxoid) Sp Chowdary Other [facility] 10-02-2016 pneumococcal conjuga te vaccine, 13 valent Sp Chowdary Other [facility] 10-02-2016 pneumococcal Conjuga te, unspecified formulation; Translations: [Need for prophylactic vaccination against Streptococcus pneumoniae (pneumococcus)] Sp Chowdary Other [facility] [employer] Other 07-25-2016 tetanus and diphther ia toxoids, adsorbed, preservative free, for adult use (5 Lf of tetanus toxoid and 2 Lf of diphtheria toxoid) Sp Chowdary Other [facility] 07-21-2015 tetanus and diphther ia toxoids, adsorbed, preservative free, for adult use (5 Lf of tetanus toxoid and 2 Lf of diphtheria toxoid) Sp Chowdary Other [facility] 06-21-2015 pneumococcal polysaccharide vaccine, 23 valent Sp Chowdary Other [facility] 07-30-2013 tetanus and diphther ia toxoids, adsorbed, preservative free, for adult use (5 Lf of tetanus toxoid and 2 Lf of diphtheria toxoid) Sp Chowdary Other [facility] 08-01-2012 tetanus and diphther ia toxoids, adsorbed, preservative free, for adult use (5 Lf of tetanus toxoid and 2 Lf of diphtheria toxoid) Sp Chowdary Other [facility] 07-30-2008 diphtheria, tetanus toxoids and acellular pertussis vaccine, unspecified formulation Sp Chowdary Other [facility] 10-02-2001 Td(adult) unspecifie d formulation Pelon COLES [facility] Payers Date Payer Category Payer Self-pay [id number] 2019 Private Health Insurance [id number] 2016 Blue [employer] Blue Shield ANTHEM - MEDICARE [id number] 2016 Medicare [id number] 2001 Medicare [id number] 1962 Unknown [id number] 2.16.840.1.585000.3.579. 2.732 1962 Unknown [id number] 2.16.840.1.658394.3.579. 2.593 1962 Unknown [id number] 2.16.840.1.231792.3.579. 2.593 1962 Unknown [id number] 2.16.840.1.055892.3.579. 2.593 1962 Unknown [id number] 2.16.840.1.095340.3.579. 2.593 1962 Unknown [id number] 2.16.840.1.148245.3.579. 2.593 1962 Unknown [id number] 2.16.840.1.269463.3.579. 2.593 1962 Unknown [id number] 2.16.840.1.133718.3.579. 2.593 1962 Unknown [id number] 2.16.840.1.666399.3.579. 2.593 1962 Unknown [id number] 2.16.840.1.067636.3.579. 2.593 1962 Unknown [id number] 2.16.840.1.299401.3.579. 2.593 1962 Unknown [id number] 2.16.840.1.416762.3.579. 2.593 1962 Unknown [id number] 2.16.840.1.856165.3.579. 2.593 1962 Unknown [id number] 2.16.840.1.320346.3.579. 2.593 1962 Unknown [id number] 2.16.840.1.237881.3.579. 2.593 1962 Unknown [id number] 2.16.840.1.346049.3.579. 2.593 1962 Unknown [id number] 2.16.840.1.937074.3.579. 2.593 1962 Unknown [id number] 2.16.840.1.978227.3.579. 2.593 1962 Unknown [id number] 2.16.840.1.547619.3.579. 2.593 1962 Unknown [id number] 2.16.840.1.025048.3.579. 2.593 1962 Unknown [id number] 2.16.840.1.396054.3.579. 2.593 1962 Unknown [id number] 2.16.840.1.521505.3.579. 2.593 1962 Unknown [id number] 2.16.840.1.364167.3.579. 2.727 1962 Unknown [id number] 2.16.840.1.387442.3.579. 2.727 1962 Unknown [id number] 2.16.840.1.116023.3.579. 2.727 1962 Unknown [id number] 2.16.840.1.601028.3.579. 2.727 1962 Unknown [id number] 2.16.840.1.574775.3.579. 2.727 1962 Unknown [id number] 2.16.840.1.909139.3.579. 2.727 1962 Unknown [id number] 2.16.840.1.512911.3.579. 2.727 1962 Unknown [id number] 2.16.840.1.056885.3.579. 2.727 1962 Unknown [id number] 2.16.840.1.079728.3.579. 2.727 1962 Unknown [id number] 2.16840.1.416077.3.579. 2.727 1959 Medicare [id number] 2.16.840.1.699546.19 1959 Private Health Insurance [id number] 2.16.840.1.833247.19 Private Health Insurance [employer] [facility] [id number] Unknown [employer] [id number] Unknown [id number] 2.16.840.1.945538.3.579. 2.531 Unknown [id number] 2.16.840.1.244767.3.579. 2.531 Social History Date Type Detail Facility Start: 03-13-2022 End: 08-28-2022 Tobacco smoking status Never smoked tobacco (finding) [facility] Start: 10-29-2019 Tobacco smoking status Never [facility] Start: 06-02-2025 Sex Assigned At Male [facility] Tobacco smoking stat [facility] Tobacco smoking consumption unknown [facility] Start: 1960 Sex Assigned At Not on file [facility] Start: 08-04-2022 End: 09-26-2022 Exposure to SARS-CoV-2 (event) Not sure [facility] History of tobacco use Passive smoker [facility] Start: 08-28-2022 Tobacco use and exposure Smokeless tobacco non-user [facility] Start: 08-28-2022 End: 06-02-2025 Alcohol intake Ex-drinker (finding) [facility] Start: 1960 Sex Assigned At Male [facility] Start: 02-07-2019 End: 09-30-2024 Sex Male (finding) [facility] Sexual Orientation [facility] Start: 06-02-2025 History of Social function [facility] Medical Equipment Procedure Code Equipment Code Equipment [...] x 15/64 syringe Start: 01-10-2024 End: 03-25-2024 Pen Needle, Diab etic (Bd Ultra-Fine Mini Pen Needle) 31 gauge x 3/16 needle Start: 08-06-2024 Insulin U-500 Syringe-Needle (Bd Insulin Syringe U-500) 1/2 mL 31 gauge x 15/64 syringe Start: 01-08-2024 End: 01-10-2024 Insulin U-500 Syringe-Needle (Bd Insulin Syringe U-500) 1/2 mL 31 gauge x 15/64 syringe Start: 01-10-2024 End: 03-25-2024 Pen Needle, Diab etic (Bd Ultra-Fine Mini Pen Needle) 31 gauge x 3/16 needle Start: 08-06-2024 End: 08-06-2024 Pen Needle, Diab etic (Bd Ultra-Fine Mini Pen Needle) 31 gauge x 3/16 needle Start: 08-06-2024 Insulin U-500 Syringe-Needle (Bd Insulin Syringe U-500) 1/2 mL 31 gauge x 15/64 syringe Start: 01-08-2024 End: 01-10-2024 Insulin U-500 Syringe-Needle (Bd Insulin Syringe U-500) 1/2 mL 31 gauge x 15/64 syringe Start: 01-10-2024 End: 03-25-2024 Pen Needle, Diab etic (Bd Ultra-Fine Mini Pen Needle) 31 gauge x 3/16 needle Start: 08-06-2024 End: 08-06-2024 Pen Needle, Diab etic (Bd Ultra-Fine Mini Pen Needle) 31 gauge x 3/16 needle Start: 08-06-2024 Insulin U-500 Syringe-Needle (Bd Insulin Syringe U-500) 1/2 mL 31 gauge x 15/64 syringe Start: 01-08-2024 End: 01-10-2024 Insulin U-500 Syringe-Needle (Bd Insulin Syringe U-500) 1/2 mL 31 gauge x 15/64 syringe Start: 01-10-2024 End: 03-25-2024 Pen Needle, Diab etic (Bd Ultra-Fine Mini Pen Needle) 31 gauge x 3/16 needle Start: 08-06-2024 End: 08-06-2024 Pen Needle, Diab etic (Bd Ultra-Fine Mini Pen Needle) 31 gauge x 3/16 needle Start: 08-06-2024 Insulin U-500 Syringe-Needle (Bd Insulin Syringe U-500) 1/2 mL 31 gauge x 15/64 syringe Start: 01-08-2024 End: 01-10-2024 Insulin U-500 Syringe-Needle (Bd Insulin Syringe U-500) 1/2 mL 31 gauge x 15/64 syringe Start: 01-10-2024 End: 03-25-2024 Pen Needle, Diab etic (Bd Ultra-Fine Mini Pen Needle) 31 gauge x 3/16 needle Start: 08-06-2024 End: 08-06-2024 Pen Needle, Diab etic (Bd Ultra-Fine Mini Pen Needle) 31 gauge x 3/16 needle Start: 08-06-2024 Insulin U-500 Syringe-Needle (Bd Insulin Syringe U-500) 1/2 mL 31 gauge x 15/64 syringe Start: 01-08-2024 End: 01-10-2024 Insulin U-500 Syringe-Needle (Bd Insulin Syringe U-500) 1/2 mL 31 gauge x 15/64 syringe Start: 01-10-2024 End: 03-25-2024 Pen Needle, Diab etic (Bd Ultra-Fine Mini Pen Needle) 31 gauge x 3/16 needle Start: 08-06-2024 End: 08-06-2024 Pen Needle, Diab etic (Bd Ultra-Fine Mini Pen Needle) 31 gauge x 3/16 needle Start: 08-06-2024 Insulin U-500 Syringe-Needle (Bd Insulin Syringe U-500) 1/2 mL 31 gauge x 15/64 syringe Start: 01-08-2024 End: 01-10-2024 Insulin U-500 Syringe-Needle (Bd Insulin Syringe U-500) 1/2 mL 31 gauge x 15/64 syringe Start: 01-10-2024 End: 03-25-2024 Pen Needle, Diab etic (Bd Ultra-Fine Mini Pen Needle) 31 gauge x 3/16 needle Start: 08-06-2024 End: 08-06-2024 Pen Needle, Diab etic (Bd Ultra-Fine Mini Pen Needle) 31 gauge x 3/16 needle Start: 08-06-2024 Insulin U-500 Syringe-Needle (Bd Insulin Syringe U-500) 1/2 mL 31 gauge x 15/64 syringe Start: 01-08-2024 End: 01-10-2024 Insulin U-500 Syringe-Needle (Bd Insulin Syringe U-500) 1/2 mL 31 gauge x 15/64 syringe Start: 01-10-2024 End: 03-25-2024 Pen Needle, Diab etic (Bd Ultra-Fine Mini Pen Needle) 31 gauge x 3/16 needle Start: 08-06-2024 End: 08-06-2024 Pen Needle, Diab etic (Bd Ultra-Fine Mini Pen Needle) 31 gauge x 3/16 needle Start: 08-06-2024 Insulin U-500 Syringe-Needle (Bd Insulin Syringe U-500) 1/2 mL 31 gauge x 15/64 syringe Start: 01-08-2024 End: 01-10-2024 Insulin U-500 Syringe-Needle (Bd Insulin Syringe U-500) 1/2 mL 31 gauge x 15/64 syringe Start: 01-10-2024 End: 03-25-2024 Pen Needle, Diab etic (Bd Ultra-Fine Mini Pen Needle) 31 gauge x 3/16 needle Start: 08-06-2024 End: 08-06-2024 Functional Status Date Assessment Result Facility 12-15-2024 Functional Status N/A [facility] 05-05-2024 Functional Status N/A [facility] 12-17-2023 Functional Status N/A [facility] 10-29-2023 Functional Status N/A [facility] 10-05-2023 Functional Status N/A [facility] [place] 12-18-2022 Functional Status N/A [facility] Clinical Notes 03-13-2022 to 06-30-2025 Telephone Encounter - Francia Dill RN - 06/30/2025 3:48 PM EDTTelephone Encounter - Francia Dill RN - 06/30/2025 3:48 PM EDTTelephone Encounter - Nate Dinh - 06/30/2025 12:39 PM EDT Note Date & Type Note Facility 06-30-2025 Telephone encounter Note Called and spoke to patient regarding upcoming prostate fusion biopsy. Since MRI came back negative, no need for bx at this time. However, Dr. Madison would still like to see the patient for a discussion. Scheduled for 07/08/2025 at 1145am in [place]. Francia Dill RN [facility] 06-30-2025 Miscellaneous Notes Called and spoke to patient regarding upcoming prostate fusion biopsy. Since MRI came back negative, no need for bx at this time. However, Dr. Madison would still like to see the patient for a discussion. Scheduled for 07/08/2025 at 1145am in [place]. Francia Dill RN Patient is scheduled for a biopsy with you on 07/08/25. Patient called the office stating he had a MRI which showed negative results. Patient is asking if the biopsy is still needed. documented in this encounter [facility] 06-30-2025 Telephone encounter Note Patient is scheduled for a biopsy with you on 07/08/25. Patient called the office stating he had a MRI which showed negative results. Patient is asking if the biopsy is still needed. [facility] 06-25-2025 Note HNO ID: [id number] Author: BLESSED RODRIGUEZ RT(R) Service: Radiology Author Type: Server Assistant Type: Progress Notes Filed: 06/25/2025 13:44 Note Text: Radiology Service Progress Note PATIENT NAME: Dat Lopez DATE OF SERVICE: June 25, 2025 TIME: 1:43 PM PATIENT IDENTITY VERIFICATION COMPLETED USING TWO (2) IDENTIFIERS: Name and Date of confirmed by patient verbally and Name and Date of confirmed by identification band FALL SCREENING: Has the patient had 2 falls in the last year or 1 fall with injury or currently using an Ambulatory Assistive Device (Walker, Cane, Wheelchair, Crutches, etc.)? No PATIENT GENDER DATA: Assigned male at PATIENT RELEVANT IMPLANT DATA REVIEWED: Yes PATIENT PRESENTS WITH AN IMPLANTABLE OR ATTACHED TEXT TRANSCRIBER: No RADIOLOGY DEPARTMENT: MR; Exam(s) Completed: Body: Prostate PERIPHERAL IV DATA: Site assessment: Clean,Dry and Intact, Site disposition Discontinued SIGNED BY: RT Tricia(R) Caroline ULLOA(R) June 25, 2025 1:43 PM [facility] 06-25-2025 Note HNO ID: [id number] Author: MONIQUE GARDINER RN Service: Nursing Author Type: Registered Nurse Type: Progress Notes Filed: 06/25/2025 13:36 Note Text: Radiology Service Progress Note DATE OF SERVICE: June 25, 2025 TIME: 1:25 PM PATIENT WEIGHT: 212 LBS PATIENT IDENTITY VERIFICATION COMPLETED USING TWO (2) STANDARD IDENTIFIERS: Name and Date of confirmed by patient verbally and Name and Date of confirmed by identification band. FALL SCREENING: Has the patient had 2 falls in the last year or 1 fall with injury or currently using an Ambulatory Assistive Device (Walker, Cane, Wheelchair, Crutches, etc.)? Yes, Patient High Risk for Falls What interventions were put in place to prevent falls during this visit? Offered Assistance with Transfers/Clothing and Increased Observations by Caregivers PATIENT GENDER DATA: Assigned male at ALLERGIES: Reviewed and unchanged CONTRAST ALLERGY: No EXAM: MRI - CONTRAST TYPE: GROUP II IV SITE: Ambulatory: A peripheral IV was started in the Right with a Angio cath: 22 gauge. IV SITE APPEARANCE: Clean,Dry and Intact SIGNATURE: Monique Gardiner RN PATIENT NAME: Dat Lopez DATE: June 25, 2025 TIME: 1:25 PM [facility] 06-02-2025 History of Presen t illness Narrative [facility] ESTABLISHED PATIENT Recording using ambient [employer] software for draft documentation of the visit was discussed with the patient/authorized employee's representative; all questions welcomed and answered. Patient/authorized employee's representative agreed to proceed REASON FOR VISIT: Follow up for Nephrolithiasis HPI: This is a 65 year old male with BPH with LUTS s/p Rezum, prostate nodule, ED, gross hematuria, bladder cancer, T1HG in 2007. CT A/P 09/27/22 - Mild left hydronephrosis and hydroureter secondary to a partially obstructing 6 mm stone at ureterovesical junction. Non obstructing stones within right and left kidney. Multiple right renal cysts. Complex cyst or mass cannot be completely excluded on this non contrast study. Multiple stones within urinary bladder. Enlarged prostate markedly protruding into base of bladder. 09/11/22 S/P LEFT PCNL, Ureteroscopy, laser lithotripsy with stent placement Stone analysis 70% COM and 20% COD Stent removed on 09/26/22 Office Visit 08/11/22: Patient describes falling on his deck in March 2022. Developed tea colored urine. CT was ordered and demonstrated Left NL, multiple stones. ESWL was performed. [facility]. Then URS x 2 and ureteral stent placement. Personal hx of stones: yes Prior stone procedures: yes Family hx of prostate cancer. BPH: - Diagnosed with BPH; reports significant prostate enlargement. - Recent PSA level: 20.9. - Previous PSA levels consistently elevated; last recorded at 22. - Underwent Rezum procedure by Dr. Coles, which helped with the urinary symptoms. - Denies nocturia or difficulty initiating urine flow. - Reports sexual dysfunction; prescribed Viagra and tadalafil, with no improvement. - Taking tadalafil 10 mg nightly for BPH management. - Father had bladder cancer and prostate cancer; underwent TURP, leading to metastatic spread and within a year. Prostate Cancer Concerns: - Previous biopsies showed no malignancy. - Recent MRI at [facility] [address] indicated a PI-RADS 4 lesion. - Recent biopsy was not targeted; patient expressed desire for a targeted biopsy. Bladder Cancer: - History of bladder cancer; cancer-free since 2007. - Monitored with annual cystoscopies by Dr. Coles; last cystoscopy in November. Negative except for bladder stone. - Recent CT scan at [facility] post-hematuria incident showed a bladder stone also seen on cystoscopy by Dr. Coles. Gross hematuria - intermittent - no new stones. Reported negative cystoscopy for bladder cancer. Bladder stones and BPH LABS: Creatinine Date Value Ref Range Status 09/12/2022 1.75 (H) 0.73 - 1.22 mg/dL Final 09/11/2022 1.67 (H) 0.73 - 1.22 mg/dL Final 08/28/2022 1.22 0.73 - 1.22 mg/dL Final URINALYSIS: Specific [place], Ur Date Value Ref Range Status 08/28/2022 1.014 1.005 - 1.030 Final Glucose, Urine Date Value Ref Range Status 08/28/2022 Negative Negative Final Bilirubin, Urine Date Value Ref Range Status 08/28/2022 Negative Negative Final Ketones, Urine Date Value Ref Range Status 08/28/2022 Negative Negative Final Hemoglobin/Blood,Ur Date Value Ref Range Status 08/28/2022 3+ (A) Negative Final Nitrites Date Value Ref Range Status 08/28/2022 Negative Negative Final WBC, Urine Date Value Ref Range Status 08/28/2022 6-10 /HPF (A) 0-5 /HPF Final PATHOLOGY: 09/11/22: 70% COM and 20% COD Urine Culture: 08/28/22: No growth IMAGING: Imaging Reviewed. Radiology report may be copied below for ease of reference. CT abdomen/pelvis: 09/29/22 MRI prostate in 2021 ALLERGIES: ALLERGIES Allergen Reactions Ciprofloxacin Other: See Comments Joint pain Actose [Pioglitazon* Swelling Petechiae Valium [Diazepam] GI Upset Exenatide Vomiting Other reaction(s): Nausea And Vomiting MEDICATIONS: Current Outpatient Medications Medication Sig iv contrast (will be provided with radiology test) CT Urogram WO/W Inject, intravenously, once for 1 dose.No IV access, insert saline lock prior to the beginning of sedation, infusion, injection of imaging exam. Discontinue saline lock post exam. If Pt. has a central line or IVAD, may access for administration according to line specific nursing protocol. Once exam is complete flush line and de-access according to line specific nursing protocol in the CT contrast administration guidelines link. 0.9 % sodium chloride (NACL 0.9%) infusion Administer at rate defined per CT contrast administration specifications. To be provided with radiology test. iv contrast (will be provided with radiology test) MRI Prostate Inject, intravenously, once for 1 dose. No IV access, insert saline lock prior to the beginning of sedation, infusion, injection of imaging exam. Discontinue saline lock post exam. If Pt. has a central line or IVAD, may access for administration according to line specific nursing protocol. Once exam is complete flush line and de-access according to line specific nursing protocol in the MR contrast administration guidelines link. NOVOLOG FLEXPEN U-100 INSULIN 100 unit/mL (3 mL) Inject 18 Units subcutaneously as directed. solifenacin 10 mg tablet amLODIPine (NORVASC) 5 mg tablet Take 5 mg by mouth once daily. Tadalafil (CIALIS) 20 mg tab(s) Take 10 mg by mouth once daily. Patient takes 0.5 tablet once a day metFORMIN (GLUCOPHAGE) 1,000 mg tablet Take 1,000 mg by mouth twice daily. pravastatin (PRAVACHOL) 40 mg tablet Take 40 mg by mouth once daily. metoprolol succinate ER (TOPROL XL) 50 mg 24 hr tablet Take 50 mg by mouth once daily. gabapentin (NEURONTIN) 100 mg capsule Take 100 mg by mouth three times daily. sertraline (ZOLOFT) 100 mg tablet Take 100 mg by mouth once daily. losartan (COZAAR) 100 mg tablet Take 100 mg by mouth once daily. BASAGLAR KWIKPEN U-100 INSULIN 100 unit/mL (3 mL) INJECT 50 UNITS SUBCUTANEOUSLY ONCE A DAY coenzyme Q10 (COENZYME Q-10) 100 mg cap capsule Take 100 mg by mouth once daily. multivitamin (MULTI-DAY ORAL) Take by mouth. melatonin 10 mg tab Take 20 mg by mouth. No current facility-administered medications for this visit. 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 Gross hematuria Nephrolithiasis POTS (postural orthostatic tachycardia syndrome) PAST SURGICAL HISTORY Procedure Laterality Date COLONOSCOPY SCREENING x2 CT CRYOABLATION BONE TUMOR Right 2001 rigth femur CYSTOSCOPY,URETEROSCOPY,LITHOTRI PSY Left multiple in 2021 CYSTOSCOPY,URETEROSCOPY,LITHOTRI PSY Right 2003 ESWL Left PAST SURGICAL HISTORY OF Left multiple ankle surgeries Social History Tobacco Use Smoking status: Never Passive exposure: Past Smokeless tobacco: Never Vaping Use Vaping status: Never Used Substance Use Topics Alcohol use: Not Currently Drug use: Never FAMILY HISTORY Problem Relation Age of Onset Ovarian cancer Mother Diabetes Mother Prostate Cancer Father other (atrial fibrillation) Father Breast Cancer Sister REVIEW OF SYSTEMS The patient denies flank pain, fever, shaking chills, gross hematuria, urgency, frequency, dysuria, incontinence, nausea, vomiting, and pain at this time Genitourinary: (+) sexual dysfunction, (-) nocturia, (-) hematuria, (-) urinary hesitancy General: No weight loss, malaise or fevers., SEE HPI CV: no chest pain or palpitations Pulm: no shortness of breath or cough Genitourinary: see HPI The remainder of the ROS was reviewed and is negative. PHYSICAL EXAMINATION BP 150/91 Pulse 82 There is no height or weight on file to calculate BMI. General: No acute distress Integumentary: No visible suspicious rashes or lesions in exposed areas. Gastrointestinal: Not visibly distended Neurologic: Gait is normal Back: No CVA tenderness to palpation/percussion. Genitourinary: MALE EXAM: Exam NOT Indicated PROBLEMS: 1. Elevated prostate specific antigen (PSA) - ICD9: 790.93, ICD10: R97.20 (primary diagnosis) 2. History of nephrolithiasis - ICD9: V13.01, ICD10: Z87.442 3. BPH with obstruction/lower urinary tract symptoms - ICD9: 600.01, 599.69, ICD10: N40.1, N13.8 4. Calculus of kidney - ICD9: 592.0, ICD10: N20.0 5. Encounter for observation for other suspected diseases and conditions ruled out - ICD9: V71.89, ICD10: Z03.89 6. Prostate cancer screening - ICD9: V76.44, ICD10: Z12.5 7. Gross hematuria - ICD9: 599.71, ICD10: R31.0 8. Screening for genitourinary condition - ICD9: V81.6, ICD10: Z13.89 9. Personal history of malignant neoplasm of bladder - ICD9: V10.51, ICD10: Z85.51 BPH with LUTS s/p Rezum bladder cancer, T1HG in 2007. Hx of kidney stones - For bladder cancer hx had CT and demonstrated no renal stones but he did have a bladder stone had the cystoscopy with Dr. Coles in April 2025. The bladder stone was visualized and adherent to the bladder wall. Elevated PSA to 22 1. History of nephrolithiasis (Z87.442) 2. Calculus of kidney (N20.0) - Recent CT scan at [facility] revealed a bladder stone; no intervention was performed. No current issues with nephrolithiasis. Will see what happens first with prostate follow up. 3. BPH with obstruction/lower urinary tract symptoms (N40.1) - Significant prostatic hypertrophy causing bladder compression. Previous Rezum procedure was effective for urine flow symptoms. Discussed alternative surgical options including Holmium Laser Enucleation of the Prostate (HoLEP) and simple prostatectomy. Patient is currently taking tadalafil 10 mg nightly for BPH management. Referred to BPH specialists for further evaluation and management. 4. Encounter for observation for other suspected diseases and conditions ruled out (Z03.89) 5. Elevated prostate specific antigen (PSA) (R97.20) 6. Prostate cancer screening (Z12.5) - Recent PSA level was 21/22 ng/mL. Previous MRI in 2021 showed no evidence of malignancy, but a subsequent MRI at [facility] [address] indicated a PI-RADS 4 lesion. Ordered a new prostate MRI and scheduled a targeted fusion biopsy with Dr. Crane or Dr. Pritchett at [facility]. Discussed the importance of ruling out prostate cancer before proceeding with any benign prostatic procedures. 7. Gross hematuria (R31.0) - Episode of hematuria associated with a prostatic infection last year; resolved with antibiotic treatment and bladder irrigation. No current hematuria reported. He also has a bladder stone which could be contributing. 8. Screening for genitourinary condition (Z13.89) 9. Personal history of malignant neoplasm of bladder (Z85.51) - Bladder cancer in remission since 2007. Undergoing annual cystoscopic surveillance by Dr. Coles; last cystoscopy performed in November showed no recurrence. Continue regular monitoring. The patient decided to proceed with the above, and was given the opportunity to have all questions answered and appeared to be satisfied with our discussion. Visit complexity inherent to evaluation and management associated with medical care services that serve as the continuing focal point for all needed health care services and/or with medical care services that are part of ongoing care related to a patient s single, serious condition or a complex condition. I, Shruti Keith, performed data extraction and record review under the direction of Dr. Vega. Electronically signed, Shruti Keith Scribe I agree with the Chief Complaint, ROS, and Past Histories independently gathered by the clinical program support assistant and the remaining scribed note accurately describes my personal service to the patient. Noelle Vega MD Some elements of this note may be copied from previous versions, however, all data and information has been reviewed and verified and is accurate for today June 02, 2025 documented in this encounter [facility] 06-02-2025 Note HNO ID: [id number] Author: NOELLE VEGA MD Service: ? Author Type: Physician Type: Progress Notes Filed: 06/02/2025 11:44 Note Text: [facility] ESTABLISHED PATIENT Recording using [employer] software for draft documentation of the visit was discussed with the patient/authorized employee's representative; all questions welcomed and answered. Patient/authorized employee's representative agreed to proceed REASON FOR VISIT: Follow up for Nephrolithiasis HPI: This is a 65 year old male with BPH with LUTS s/p Rezum, prostate nodule, ED, gross hematuria, bladder cancer, T1HG in 2007. CT A/P 09/27/22 - Mild left hydronephrosis and hydroureter secondary to a partially obstructing 6 mm stone at ureterovesical junction. Non obstructing stones within right and left kidney. Multiple right renal cysts. Complex cyst or mass cannot be completely excluded on this non contrast study. Multiple stones within urinary bladder. Enlarged prostate markedly protruding into base of bladder. 09/11/22 S/P LEFT PCNL, Ureteroscopy, laser lithotripsy with stent placement Stone analysis 70% COM and 20% COD Stent removed on 09/26/22 Office Visit 08/11/22: Patient describes falling on his deck in March 2022. Developed tea colored urine. CT was ordered and demonstrated Left NL, multiple stones. ESWL was performed. [facility]. Then URS x 2 and ureteral stent placement. Personal hx of stones: yes Prior stone procedures: yes Family hx of prostate cancer. BPH: - Diagnosed with BPH; reports significant prostate enlargement. - Recent PSA level: 20.9. - Previous PSA levels consistently elevated; last recorded at 22. - Underwent Rezum procedure by Dr. Coles, which helped with the urinary symptoms. - Denies nocturia or difficulty initiating urine flow. - Reports sexual dysfunction; prescribed Viagra and tadalafil, with no improvement. - Taking tadalafil 10 mg nightly for BPH management. - Father had bladder cancer and prostate cancer; underwent TURP, leading to metastatic spread and within a year. Prostate Cancer Concerns: - Previous biopsies showed no malignancy. - Recent MRI at [facility] [address] indicated a PI-RADS 4 lesion. - Recent biopsy was not targeted; patient expressed desire for a targeted biopsy. Bladder Cancer: - History of bladder cancer; cancer-free since 2007. - Monitored with annual cystoscopies by Dr. Coles; last cystoscopy in November. Negative except for bladder stone. - Recent CT scan at [facility] post-hematuria incident showed a bladder stone also seen on cystoscopy by Dr. Coles. Gross hematuria - intermittent - no new stones. Reported negative cystoscopy for bladder cancer. Bladder stones and BPH LABS: Creatinine Date Value Ref Range Status 09/12/2022 1.75 (H) 0.73 - 1.22 mg/dL Final 09/11/2022 1.67 (H) 0.73 - 1.22 mg/dL Final 08/28/2022 1.22 0.73 - 1.22 mg/dL Final URINALYSIS: Specific [place], Ur Date Value Ref Range Status 08/28/2022 1.014 1.005 - 1.030 Final Glucose, Urine Date Value Ref Range Status 08/28/2022 Negative Negative Final Bilirubin, Urine Date Value Ref Range Status 08/28/2022 Negative Negative Final Ketones, Urine Date Value Ref Range Status 08/28/2022 Negative Negative Final Hemoglobin/Blood,Ur Date Value Ref Range Status 08/28/2022 3+ (A) Negative Final Nitrites Date Value Ref Range Status 08/28/2022 Negative Negative Final WBC, Urine Date Value Ref Range Status 08/28/2022 6-10 /HPF (A) 0-5 /HPF Final PATHOLOGY: 09/11/22: 70% COM and 20% COD Urine Culture: 08/28/22: No growth IMAGING: Imaging Reviewed. Radiology report may be copied below for ease of reference. CT abdomen/pelvis: 09/29/22 MRI prostate in 2021 ALLERGIES: ALLERGIES Allergen Reactions Ciprofloxacin Other: See Comments Joint pain Actose [Pioglitazon* Swelling Petechiae Valium [Diazepam] GI Upset Exenatide Vomiting Other reaction(s): Nausea And Vomiting MEDICATIONS: Current Outpatient Medications Medication Sig iv contrast (will be provided with radiology test) CT Urogram WO/W Inject, intravenously, once for 1 dose.No IV access, insert saline lock prior to the beginning of sedation, infusion, injection of imaging exam. Discontinue saline lock post exam. If Pt. has a central line or IVAD, may access for administration according to line specific nursing protocol. Once exam is complete flush line and de-access according to line specific nursing protocol in the CT contrast administration guidelines link. 0.9 % sodium chloride (NACL 0.9%) infusion Administer at rate defined per CT contrast administration specifications. To be provided with radiology test. iv contrast (will be provided with radiology test) MRI Prostate Inject, intravenously, once for 1 dose. No IV access, insert saline lock prior to the beginning of sedation, infusion, injection of imaging exam. Discontinue saline (more content not included)... [facility] 05-18-2025 Hospital Discharg e instructions Patient Education 05/18/2025 08:51:29 Prostate Cancer Screening Prostate Cancer Screening Prostate cancer screening is testing that is done to check for the presence of prostate cancer in men. The prostate gland is a walnut-sized gland that is located below the bladder and in front of the rectum in males. The function of the prostate is to add fluid to semen during ejaculation. Prostate cancer is one of the most common types of cancer in men. Who should have prostate cancer screening? Screening recommendations vary based on age and other risk factors, as well as between the professional organizations who make the recommendations. In general, screening is recommended if: You are age 50 to 70 and have an average risk for prostate cancer. You should talk with your health care provider about your need for screening and how often screening should be done. Because most prostate cancers are slow growing and will not cause , screening in this age group is generally reserved for men who have a 10- to 15-year life expectancy. You are younger than age 50, and you have these risk factors: ?Having a father, brother, or uncle who has been diagnosed with prostate cancer. The risk is higher if your family member's cancer occurred at an early age or if you have multiple family members with prostate cancer at an early age. ?Being a male who is Black or is of [place] or sub-Saharan descent. In general, screening is not recommended if: You are younger than age 40. You are between the ages of 40 and 49 and you have no risk factors. You are 70 years of age or older. At this age, the risks that screening can cause are greater than the benefits that it may provide. If you are at high risk for prostate cancer, your health care provider may recommend that you have screenings more often or that you start screening at a younger age. How is screening for prostate cancer done? The recommended prostate cancer screening test is a blood test called the prostate-specific antigen (PSA) test. PSA is a protein that is made in the prostate. As you age, your prostate naturally produces more PSA. Abnormally high PSA levels may be caused by: Prostate cancer. An enlarged prostate that is not caused by cancer (benign prostatic hyperplasia, or BPH). This condition is very common in older men. A prostate gland infection (prostatitis) or urinary tract infection. Certain medicines such as male hormones (like testosterone) or other medicines that raise testosterone levels. A rectal exam may be done as part of prostate cancer screening to help provide information about the size of your prostate gland. When a rectal exam is performed, it should be done after the PSA level is drawn to avoid any effect on the results. Depending on the PSA results, you may need more tests, such as: A physical exam to check the size of your prostate gland, if not done as part of screening. Blood and imaging tests. A procedure to remove tissue samples from your prostate gland for testing (biopsy). This is the only way to know for certain if you have prostate cancer. What are the benefits of prostate cancer screening? Screening can help to identify cancer at an early stage, before symptoms start and when the cancer can be treated more easily. There is a small chance that screening may lower your risk of dying from prostate cancer. The chance is small because prostate cancer is a slow-growing cancer, and most men with prostate cancer from a different cause. What are the risks of prostate cancer screening? The main risk of prostate cancer screening is diagnosing and treating prostate cancer that would never have caused any symptoms or problems. This is called overdiagnosisand overtreatment. PSA screening cannot tell you if your PSA is high due to cancer or a different cause. A prostate biopsy is the only procedure to diagnose prostate cancer. Even the results of a biopsy may not tell you if your cancer needs to be treated. Slow-growing prostate cancer may not need any treatment other than monitoring, so diagnosing and treating it may cause unnecessary stress or other side effects. Questions to ask your health care provider When should I start prostate cancer screening? What is my risk for prostate cancer? How often do I need screening? What type of screening tests do I need? How do I get my test results? What do my results mean? Do I need treatment? Where to find more information The [place] [employer]: www.cancer.org [place] [employer]: www.auanet.org Contact a health care provider if: You have difficulty urinating. You have pain when you urinate or ejaculate. You have blood in your urine or semen. You have pain in your back or in the area of your prostate. Summary Prostate cancer is a common type of cancer in men. The prostate gland is located below the bladder and in front of the rectum. This gland adds fluid to semen during ejaculation. Prostate cancer screening may identify cancer at an early stage, when the cancer can be treated more easily and is less likely to have spread to other areas of the body. The prostate-specific antigen (PSA) test is the recommended screening test for prostate cancer, but it has associated risks. Discuss the risks and benefits of prostate cancer screening with your health care provider. If you are age 70 or older, the risks that screening can cause are greater than the benefits that it may provide. This information is not intended to replace advice given to you by your health care provider. Make sure you discuss any questions you have with your health care provider. Document Revised: 05/01/2022 Document Reviewed: 05/01/2022 [employer] Patient Education 2023 [employer]. Follow Up Care 04/03/2025 10:14:27 With:SANKET PRECIADO, Pelon Mujica, SMITH Address: [facility] [address] , [place] [phone] When: Unknown [facility] 05-18-2025 Note Patient Education Oncology Prostate Cancer Screening Prostate cancer screening is testing that is done to check for the presence of prostate cancer in men. The prostate gland is a walnut-sized gland that is located below the bladder and in front of the rectum in males. The function of the prostate is to add fluid to semen during ejaculation. Prostate cancer is one of the most common types of cancer in men. Who should have prostate cancer screening? Screening recommendations vary based on age and other risk factors, as well as between the professional organizations who make the recommendations. In general, screening is recommended if: ??? You are age 50 to 70 and have an average risk for prostate cancer. You should talk with your health care provider about your need for screening and how often screening should be done. Because most prostate cancers are slow growing and will not cause , screening in this age group is generally reserved for men who have a 10- to 15-year life expectancy. ??? You are younger than age 50, and you have these risk factors: ? Having a father, brother, or uncle who has been diagnosed with prostate cancer. The risk is higher if your family member's cancer occurred at an early age or if you have multiple family members with prostate cancer at an early age. ? Being a male who is Black or is of [place] or sub-Saharan descent. In general, screening is not recommended if: ??? You are younger than age 40. ??? You are between the ages of 40 and 49 and you have no risk factors. ??? You are 70 years of age or older. At this age, the risks that screening can cause are greater than the benefits that it may provide. If you are at high risk for prostate cancer, your health care provider may recommend that you have screenings more often or that you start screening at a younger age. How is screening for prostate cancer done? The recommended prostate cancer screening test is a blood test called the prostate-specific antigen (PSA) test. PSA is a protein that is made in the prostate. As you age, your prostate naturally produces more PSA. Abnormally high PSA levels may be caused by: ??? Prostate cancer. ??? An enlarged prostate that is not caused by cancer (benign prostatic hyperplasia, or BPH). This condition is very common in older men. ??? A prostate gland infection (prostatitis) or urinary tract infection. ??? Certain medicines such as male hormones (like testosterone) or other medicines that raise testosterone levels. A rectal exam may be done as part of prostate cancer screening to help provide information about the size of your prostate gland. When a rectal exam is performed, it should be done after the PSA level is drawn to avoid any effect on the results. Depending on the PSA results, you may need more tests, such as: ??? A physical exam to check the size of your prostate gland, if not done as part of screening. ??? Blood and imaging tests. ??? A procedure to remove tissue samples from your prostate gland for testing (biopsy). This is the only way to know for certain if you have prostate cancer. What are the benefits of prostate cancer screening? Screening can help to identify cancer at an early stage, before symptoms start and when the cancer can be treated more easily. ??? There is a small chance that screening may lower your risk of dying from prostate cancer. The chance is small because prostate cancer is a slow-growing cancer, and most men with prostate cancer from a different cause. What are the risks of prostate cancer screening? The main risk of prostate cancer screening is diagnosing and treating prostate cancer that would never have caused any symptoms or problems. This is called overdiagnosisand overtreatment. PSA screening cannot tell you if your PSA is high due to cancer or a different cause. A prostate biopsy is the only procedure to diagnose prostate cancer. Even the results of a biopsy may not tell you if your cancer needs to be treated. Slow-growing prostate cancer may not need any treatment other than monitoring, so diagnosing and treating it may cause unnecessary stress or other side effects. Questions to ask your health care provider ??? When should I start prostate cancer screening? What is my risk for prostate cancer? How often do I need screening? What type of screening tests do I need? How do I get my test results? What do my results mean? Do I need treatment? Where to find more information ??? The [place] [employer]: www.cancer.org ??? [place] [employer]: www.auanet.org Contact a health care provider if: ??? You have difficulty urinating. ??? You have pain when you urinate or ejaculate. ??? You have blood in your urine or semen. ??? You have pain in your back or in the area of your prostate. Summary ??? Prostate cancer is a common type of cancer in men. The prostate gland (more content not included)... [facility] 04-21-2025 Evaluation note Diagnosis Onset Date Resolution Chronic kidney disease acute 2024 11:29am Contusion of left buttock acute April 21, 2025 11:29am Lumbar spondylosis acute April 212024 11:29am Type 2 diabetes mellitus with diabetic polyneuropathy acute April 21, 2025 11:29am Type 2 diabetes mellitus with hyperglycemia acute April 21 11:29am Paresthesias in left hand deleted April 21, 2025 11:29am Carpal tunnel syndrome, right acute May 05, 2025 11:38am Cervical radiculopathy acute ne 2024 11:38am Carpal tunnel syndrome, right acute May 20, 2025 12:11pm Osteoarthritis of basilar joint of thumb acute May 20, 2025 12:11pm [facility] Work Phone: 1(704) 579-380906-03-2025 Evaluation note* Diagnosis Onset Date Resolution Status Admit Date Chronic kidney disease acute 2024 11:29am Lumbar spondylosis acute April 212024 11:29am Type 2 diabetes mellitus wit h diabetic polyneuropathy acute April 11:29am Type 2 diabetes mellitus wit h hyperglycemia acute April 21, 2025 1 1:29am Contusion of left buttock deleted April 21, 2025 11:29am Paresthesias in left hand deleted April 21, 2025 11:29am Carpal tunnel syndrome, right acute May 05, 2025 11:38am Cervical radiculopathy acute Ju ne 2024 11:38am Carpal tunnel syndrome, right acute May 20, 2025 12:11pm Osteoarthritis of basilar george int of thumb acute May 20, 2025 1 2:11pm Anemia acute June 09 11:15am Atypical small acinar proliferation of prostate acute May 202024 11:15am Chronic kidney disease acute Ju ly 2024 11:15am History of carpal tunnel zahira raudel of right wrist May, acute June 09, 2025 11:15am Hyperlipidemia, mixed acute May 11:15am Lumbar spondylosis acute May 202024 11:15am Primary hypertension acute June 09, 2025 11:15am Primary osteoarthritis of knee acute June 09, 2025 11:15am Type 2 diabetes mellitus wit h diabetic polyneuropathy acute May 11:15am Type 2 diabetes mellitus wit h hyperglycemia acute June 09, 2025 11:15am [facility] Work Phone: 1(891) 762-434606-03-2025 Evaluation note* Diagnosis Onset Date Resolution Status Admit Date Chronic kidney disease acute Ju 2024 11:29am Lumbar spondylosis acute April 212024 11:29am Type 2 diabetes mellitus wit h diabetic polyneuropathy acute April 11:29am Type 2 diabetes mellitus wit h hyperglycemia acute April 21, 2025 11:29am Contusion of left buttock deleted April 21, 2025 11:29am Paresthesias in left hand deleted April 21, 2025 11:29am Carpal tunnel syndrome, right acute May 05, 2025 11:38am Cervical radiculopathy acute Ju ne 2024 11:38am Carpal tunnel syndrome, right acute May 20, 2025 12:11pm Osteoarthritis of basilar george int of thumb acute May 20, 2025 12:11pm Anemia acute June 09 11:15am Atypical small acinar proliferation of prostate acute May 202024 11:15am Chronic kidney disease acute Ju ly 2024 11:15am History of carpal tunnel surgery of right wrist May, acute May 11:15am Hyperlipidemia, mixed acute May 11:15am Lumbar spondylosis acute May 202024 11:15am Primary hypertension acute June 09, 2025 11:15am Primary osteoarthritis of knee acute June 09, 2025 11:15am Type 2 diabetes mellitus wit h diabetic polyneuropathy acute May 11:15am Type 2 diabetes mellitus wit h hyperglycemia acute June 09, 2025 11:15am Carpal tunnel syndrome, right acute June 10, 2025 9:51am Osteoarthritis of basilar george int of thumb acute June 10, 2025 9:51am Other specified postprocedur al states noneactive June 10, 2025 9:51am [facility] Work Phone: 1([phone]) 531-669305-01-2025 Hospital Discharge instructions Additional Instructions Dr. Denney's discharge instructions Carpal tunnel release Maintain your postoperative dressing for 72 hours after surgery. After this time the dressing can be removed. After dressing removal you may cleanse your incision with warm soapy water. You may keep the incision covered with a Band-Aid if you wish. You should use diligent icing for the first several days after surgery as this will help with swelling. We will plan to remove the sutures at your follow-up appointment. Elevation of your hand above the level of your heart can help with swelling and inflammation. You are weightbearing as tolerated and range of motion as tolerated to the hand wrist and fingers, protect the surgical site from injury. Take medications as prescribed. You may take NSAIDs/Tylenol [id number] as indicated on the bottle. Follow-up in office as scheduled, approximately one week after surgery. Call the office with any questions or concerns. Dr. Shawn Denney [facility] [address] [place], [place] [id number] [phone] Work Phone: 1(415) 379-390003-10-2025 Evaluation note* Diagnosis Onset Date Resolution Status Admit Date Anemia acute January 26 11:03am Atypical small acinar proliferation of prostate acute January 26, 2025 11:03am Chronic kidney disease acute [facility] 2024 11:03am Hyperlipidemia, mixed acute Mar 2024 11:03am Lumbar spondylosis acute January 26, 2025 11:03am Primary hypertension acute Michael h 2024 11:03am Primary osteoarthritis of knee acute January 26, 2025 11:03am Type 2 diabetes mellitus wit h diabetic polyneuropathy acute January 262024 11:03am Type 2 diabetes mellitus wit h hyperglycemia acute January 26, 2025 11:03am Wellness examination noneactive Michael h 2024 11:03am Anemia acute April 21, 2025 11:29am Atypical small acinar proliferation of prostate acute April 212024 11:29am Chronic kidney disease acute Ju ne 2024 11:29am Hyperlipidemia, mixed acute Royal e 2024 11:29am Lumbar spondylosis acute April 212024 11:29am Primary hypertension acute April 21, 2025 11:29am Primary osteoarthritis of knee acute April 21, 2025 11:29am Type 2 diabetes mellitus wit h diabetic polyneuropathy acute April 11:29am Type 2 diabetes mellitus wit h hyperglycemia acute April 21, 2025 11:29am [facility] Work Phone: 1([phone]) 888-971601-27-2025 Hospital Discharge instructions Patient Education 12/15/2024 15:00:14 Prostate Cancer Screening Prostate Cancer Screening Prostate cancer screening is testing that is done to check for the presence of prostate cancer in men. The prostate gland is a walnut-sized gland that is located below the bladder and in front of therectum in males. The function of the prostate is to add fluid to semen during ejaculation. Prostatecancer is one of the most common types of cancer in men. Who should have prostate cancer screening? Screening recommendations vary based on age and other risk factors, as well as between the professional organizations who make the recommendations. In general, screening is recommended if: You are age 50 to 70 and have an average risk for prostate cancer. You should talk with your healthcare provider about your need for screening and how often screening should be done. Because most prostate cancers are slow growing and will not cause , screening in this age group is generally reserved for men who have a 10- to 15-year life expectancy. You are younger than age 50, and you have these risk factors: ?Having a father, brother, or uncle who has been diagnosed with prostate cancer. The risk is higherif your family member's cancer occurred at an early age or if you have multiple family members withprostate cancer at an early age. ?Being a male who is Black or is of [place] or sub-Saharan descent. In general, screening is not recommended if: You are younger than age 40. You are between the ages of 40 and 49 and you have no risk factors. You are 70 years of age or older. At this age, the risks that screening can cause are greater than the benefits that it may provide. If you are at high risk for prostate cancer, your health care provider may recommend that you have screenings more often or that you start screening at a younger age. How is screening for prostate cancer done? The recommended prostate cancer screening test is a blood test called the prostate-specific antigen(PSA) test. PSA is a protein that is made in the prostate. As you age, your prostate naturally produces more PSA. Abnormally high PSA levels may be caused by: Prostate cancer. An enlarged prostate that is not caused by cancer (benign prostatic hyperplasia, or BPH). This condition is very common in older men. A prostate gland infection (prostatitis) or urinary tract infection. Certain medicines such as male hormones (like testosterone) or other medicines that raise testosterone levels. A rectal exam may be done as part of prostate cancer screening to help provide information about the size of your prostate gland. When a rectal exam is performed, it should be done after the PSA level is drawn to avoid any effect on the results. Depending on the PSA results, you may need more tests, such as: A physical exam to check the size of your prostate gland, if not done as part of screening. Blood and imaging tests. A procedure to remove tissue samples from your prostate gland for testing (biopsy). This is the only way to know for certain if you have prostate cancer. What are the benefits of prostate cancer screening? Screening can help to identify cancer at an early stage, before symptoms start and when the cancer can be treated more easily. There is a small chance that screening may lower your risk of dying from prostate cancer. The chance is small because prostate cancer is a slow-growing cancer, and most men with prostate cancer from a different cause. What are the risks of prostate cancer screening? The main risk of prostate cancer screening is diagnosing and treating prostate cancer that would never have caused any symptoms or problems. This is called overdiagnosisand overtreatment. PSA screening cannot tell you if your PSA is high due to cancer or a different cause. A prostate biopsy is the only procedure to diagnose prostate cancer. Even the results of a biopsy may not tell you if your cancer needs to be treated. Slow-growing prostate cancer may not need any treatment other than monitoring, so diagnosing and treating it may cause unnecessary stress or other side effects. Questions to ask your health care provider When should I start prostate cancer screening? What is my risk for prostate cancer? How often do I need screening? What type of screening tests do I need? How do I get my test results? What do my results mean? Do I need treatment? Where to find more information The [place] [employer]: www.cancer.org [place] [employer]: www.auanet.org Contact a health care provider if: You have difficulty urinating. You have pain when you urinate or ejaculate. You have blood in your urine or semen. You have pain in your back or in the area of your prostate. Summary Prostate cancer is a common type of cancer in men. The prostate gland is located below the bladder and in front of the rectum. This gland adds fluid to semen during ejaculation. Prostate cancer screening may identify cancer at an early stage, when the cancer can be treated more easily and is less likely to have spread to other areas of the body. The prostate-specific antigen (PSA) test is the recommended screening test for prostate cancer, butit has associated risks. Discuss the risks and benefits of prostate cancer screening with your health care provider. If you are age 70 or older, the risks that screening can cause are greater than the benefits that it may provide. This information is not intended to replace advice given to you by your health care provider. Make sure you discuss any questions you have with your health care provider. Document Revised: 05/01/2022 Document Reviewed: 05/01/2022 [employer] Patient Education 2023 [employer]. 12/15/2024 15:00:12 Benign Prostatic Hyperplasia Benign Prostatic Hyperplasia Benign prostatic hyperplasia (BPH) is an enlarged prostate gland that is caused by the normal agingprocess. The prostate may get bigger as a man gets older. The condition is not caused by cancer. The prostate is a walnut-sized gland that is involved in the production of semen. It is located in front of the rectum and below the bladder. The bladder stores urine. The urethra carries stored urine ou t of the body. An enlarged prostate can press on the urethra. This can make it harder to pass urine. The buildup of urine in the bladder can cause infection. Back pressure and infection may progress to bladder damage and kidney (renal) failure. What are the causes? This condition is part of the normal aging process. However, not all men develop problems from thiscondition. If the prostate enlarges away from the urethra, urine flow will not be blocked. If it enlarges toward the urethra and compresses it, there will be problems passing urine. What increases the risk? This condition is more likely to develop in men older than 50 years. What are the signs or [...] urethra. Follow these instructions at home: Take [id number] and prescription medicines only as told by your health care provider. Monitor your symptoms for any changes. Contact your health care provider with any changes. Avoid drinking large amounts of liquid before going to bed or out in public. Avoid or reduce how much caffeine or alcohol you drink. Give yourself time when you urinate. Keep all follow-up visits. This is important. Contact a health care provider if: You have unexplained back pain. Your symptoms do not get better with treatment. You develop side effects from the medicine you are taking. Your urine becomes very dark or has a bad smell. Your lower abdomen becomes distended and you have trouble passing urine. Get help right away if: You have a fever or chills. You suddenly cannot urinate. You feel light-headed or very dizzy, or you faint. There are large amounts of blood or clots in your urine. Your urinary problems become hard to manage. You develop moderate to severe low back or flank pain. The flank is the side of your body between the ribs and the hip. These symptoms may be an emergency. Get help right away. Call 911. Do not wait to see if the symptoms will go away. Do not drive yourself to the hospital. Summary Benign prostatic hyperplasia (BPH) is an enlarged prostate that is caused by the normal aging process. It is not caused by cancer. An enlarged prostate can press on the urethra. This can make it hard to pass urine. This condition is more likely to develop in men older than 50 years. Get help right away if you suddenly cannot urinate. This information is not intended to replace advice given to you by your health care provider. Make sure you discuss any questions you have with your health care provider. Document Revised: 05/24/2022 Document Reviewed: 05/24/2022 Extole Patient Education 2023 [employer]. Follow Up Care 12/17/2023 12:57:40 With:SANKET PRECIADO, Pelon Mujica, URL Address: [facility] [address] [place] [address] [phone] When: Unknown Comments:6 mos w/ PSA [facility] [place] 01-27-2025 NotePatient Education Oncology Prostate Cancer Screening Prostate cancer screening is testing that is done to check for the presence of prostate cancer in men. The prostate gland is a walnut-sized gland that is located below the bladder and in front of therectum in males. The function of the prostate is to add fluid to semen during ejaculation. Prostatecancer is one of the most common types of cancer in men. Who should have prostate cancer screening? Screening recommendations vary based on age and other risk factors, as well as between the professional organizations who make the recommendations. In general, screening is recommended if: ??? You are age 50 to 70 and have an average risk for prostate cancer. You should talk with your health care provider about your need for screening and how often screening should be done. Because most prostate cancers are slow growing and will not cause , screening in this age group is generally reserved for men who have a 10- to 15-year life expectancy. ??? You are younger than age 50, and you have these risk factors: ? Having a father, brother, or uncle who has been diagnosed with prostate cancer. The risk is higher if your family member's cancer occurred at an early age or if you have multiple family members with prostate cancer at an early age. ? Being a male who is Black or is of [place] or sub-Saharan descent. In general, screening is not recommended if: ??? You are younger than age 40. ??? You are between the ages of 40 and 49 and you have no risk factors. ??? You are 70 years of age or older. At this age, the risks that screening can cause are greater than the benefits that it may provide. If you are at high risk for prostate cancer, your health care provider may recommend that you have screenings more often or that you start screening at a younger age. How is screening for prostate cancer done? The recommended prostate cancer screening test is a blood test called the prostate-specific antigen(PSA) test. PSA is a protein that is made in the prostate. As you age, your prostate naturally produces more PSA. Abnormally high PSA levels may be caused by: ??? Prostate cancer. ??? An enlarged prostate that is not caused by cancer (benign prostatic hyperplasia, or BPH). This condition is very common in older men. ??? A prostate gland infection (prostatitis) or urinary tract infection. ??? Certain medicines such as male hormones (like testosterone) or other medicines that raise testosterone levels. A rectal exam may be done as part of prostate cancer screening to help provide information about the size of your prostate gland. When a rectal exam is performed, it should be done after the PSA level is drawn to avoid any effect on the results. Depending on the PSA results, you may need more tests, such as: ??? A physical exam to check the size of your prostate gland, if not done as part of screening. ??? Blood and imaging tests. ??? A procedure to remove tissue samples from your prostate gland for testing (biopsy). This is theonly way to know for certain if you have prostate cancer. What are the benefits of prostate cancer screening? Screening can help to identify cancer at an early stage, before symptoms start and when the cancer can be treated more easily. ??? There is a small chance that screening may lower your risk of dying from prostate cancer. The chance is small because prostate cancer is a slow-growing cancer, and most men with prostate cancer from a different cause. What are the risks of prostate cancer screening? The main risk of prostate cancer screening is diagnosing and treating prostate cancer that would never have caused any symptoms or problems. This is called overdiagnosisand overtreatment. PSA screening cannot tell you if your PSA is high due to cancer or a different cause. A prostate biopsy is the only procedure to diagnose prostate cancer. Even the results of a biopsy may not tell you if your cancer needs to be treated. Slow-growing prostate cancer may not need any treatment other than monitoring, so diagnosing and treating it may cause unnecessary stress or other side effects. Questions to ask your health care provider ??? When should I start prostate cancer screening? What is my risk for prostate cancer? How often do I need screening? What type of screening tests do I need? How do I get my test results? What do my results mean? Do I need treatment? Where to find more information ??? The [place] [employer]: www.cancer.org ??? [place] [employer]: www.auanet.org Contact a health care provider if: ??? You have difficulty urinating. ??? You have pain when you urinate or ejaculate. ??? You have blood in your urine or semen. ??? You have pain in your back or in the area of your prostate. Summary ??? Prostate cancer is a common type of cancer in men. The prostate gland (more content not included)...[facility]06-17-2024 Hospital Discharge instructions Patient Education 05/05/2024 12:19:41 Prostatitis Prostatitis Prostatitis is swelling or inflammation of the prostate gland, also called the prostate. This glandis about 1.5 inches wide and 1 inch [...] quickly and results from an acute bacterial infectionin the prostate gland. It is usually associated [...] when the body's disease-fighting system attacks healthy tissuein the body by mistake. Psychological factors. These [...] Follow these instructions at home: Medicines Take ncnq-psi-fjhbonr and prescription medicines only as told by your health care provider. If you were prescribed an antibiotic medicine, take it as told by your health care provider. Do notstop using the antibiotic even if you start to feel better. Managing pain and swelling Take sitz baths as directed by your health care provider. For a sitz bath, sit in warm water that is deep enough to cover your hips and buttocks. If directed, apply heat to the affected area as often as told by your health care provider. Use theheat source that your health care provider recommends, [...] important. Where to find more information National [place] of Diabetes and Digestive and Kidney Diseases: [...] depends on the type of prostatitis. Take mzkj-txc-yolhwuz and prescription medicines only as told by your health care provider. Get help right away of you have chills, feel light-headed, feel like you may faint, cannot urinate,or have blood or blood clots in your urine. This information is not intended to replace advice given to you by your health care provider. Make sure you discuss any questions you have with your health care provider. Document Revised: 12/10/2020 Document Reviewed: 12/10/2020 Extole Patient Education 2022 [employer]. Follow Up Care 05/05/2024 10:36:21 With:SANKET PRECIADO, Pelon Mujica, URL Address: [facility] [address] [place] [address]- When: Unknown [facility] 01-29-2024 Hospital Discharge instructions Patient Education 12/17/2023 12:45:04 Erectile Dysfunction Erectile Dysfunction Erectile dysfunction (ED) is the inability to get or keep an erection in order to have sexual intercourse. ED is considered a symptom of an underlying disorder and is not considered a disease. ED mayinclude: Inability to get an erection. Lack of [...] back or pelvic injuries, multiple sclerosis, Parkinson's disease,spinal cord injury, and stroke. Certain medicines, such [...] or the penis may be too curved toallow for intercourse. Never having nighttime or morning [...] penis. During this procedure, a blood vessel froma different part of the body is placed into the penis to allow blood to flow around (bypass) damaged or blocked blood vessels. Lifestyle changes, such as exercising more, losing weight, and quitting smoking. Follow these instructions at home: Medicines Take nder-qcu-iydrpcc and prescription medicines only as told by your health care provider. Do not increase the dosage without first discussing it with your health care provider. If you are using self-injections, do injections as directed by your health care provider. Make sureyou avoid any veins that are on the surface of the penis. After giving an injection, apply pressureto the injection site for 5 minutes. Talk [...] you need help quitting, ask your health careprovider. Before using a vacuum pump, read the instructions that come with the pump and discuss any questionswith your health care provider. Keep all follow-up [...] provider. Document Revised: 02/01/2022 Document Reviewed: 02/01/2022 Extole Patient Education 2022 [employer]. Follow Up Care 12/13/2023 11:10:14 With:SANKET PRECIADO, Pelon Mujica, URL Address: [facility] [address], [place] [address] [phone] When: Unknown Comments:1 yr w/ PSA and KUB [facility] [place] 01-05-2024 Evaluation note* Encounter Date Diagnosis Assessment Notes Treatment Notes Treatment Clinical Notes Nov, Type 2 diabetes mellitus with hyperglycemia (ICD-10 - E11.65) This patient is following a comprehensive diabetic treatment plan. They are checking their feet daily and scheduling a dilated eye exam yearly. Goals: SBP<130, LDL<100, BS<140 AC, A1C<7% They are checking their BS 3x daily, alternating times. Decreasing Basaglar w/ goal FBS 130 Decrease ISS to avoid hypoglycemic episodes [facility] Other 12-14-2023 Evaluation note* Encounter Date Diagnosis Assessment Notes Treatment Notes Treatment Clinical Notes Oct, Type 2 diabetes mellitus with hyperglycemia (ICD-10 - E11.65) [facility] Other 12-11-2023 Hospital Discharge instructions Follow Up Care 10/29/2023 11:16:58 With:SANKET PRECIADO, Pelon Mujica, URL Address: [facility] [address] , [place] [address]- When: Unknown Comments:Scheduled for TRUS/bx on 11/27/23. [...] use, the patient reduces the risk for MT, CVA, HTN, cardiac dysrhythmias and sudden cardiac [...] active. 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) [facility] Other 11-14-2023 Hospital Discharge instructions Follow Up Care 10/02/2023 11:36:47 With:SANKET PRECIADO, Pelon Mujica, URL Address: [facility] [address] , [place] [address] [phone] When: Unknown [facility] 09-01-2023 Evaluation note* Encounter Date Diagnosis Assessment Notes Treatment Notes Treatment Clinical Notes Jul, Controlled type 2 diabetes mellitus with hyperglycemia, without long-term current use of insulin (ICD-10 - E11.65) [facility] Other 06-06-2023 Evaluation note* Encounter Date Diagnosis Assessment Notes [...] use, the patient reduces the risk for MT, CVA, HTN, cardiac dysrhythmias and sudden cardiac [...] E11.3393) Control BS and close f/u w/ sales support specialist Apr, Hyperlipidemia, mixe d (ICD-10 - [...] [BMI ] 34.0-34.9, adult (ICD-10 - Z68.34) [facility] Other 04-06-2023 NoteCONSULTATION CONSULTATION DATE: 02/22/2023 TO: [...] our patients to inform us about any otnu-bxi-mrnrjqm medications or herbal remedies/nutritional supplements/alternative remedies. 2. [...] treatment options with their primary care provider.[id number] Evaluation note * Encounter Date Diagnosis Assessment [...] move forward with anything in the future. [facility] Other 03-06-2023 Evaluation note* Encounter Date Diagnosis [...] is down from 13 - f/u Urology [facility] Other 01-30-2023 Hospital Discharge instructions Patient Education [...] urethra. Follow these instructions at home: Take xqjw-lim-payltyr and prescription medicines only as told by [...] 11/05/2006 Document Revised: 09/30/2019 Document Reviewed: 12/10/2017 Extole Patient Education 2020 [employer]. Follow Up Care 11/30/2022 15:02:18 With:SANKET PRECIADO, Pelon Mujica, SMITH Address: [facility] [address] , [place] [address]- When: Unknown [facility] [...] does have some posttraumatic osteoarthritis and is amvd-dy-tavo in the medial compartment. He has had [...] 3 months to check on his progress. [facility] Other 11-08-2022 Nurse Note* Arlene Miguel Ma - 09/26/2022 [...] Education Session: None Instruction Provided To: Patient Automotive Professional Present: not applicable Discipline: Nursing Learning Topic: SURVIVAL SKILLS: Complication Prevention Symptom Management Patient Evaluation: Verbalizes understanding: Yes Supplemental Material Given: Written Material Instructed By Arlene Miguel Ma In Department Urology . [facility] History of Present illness Narrative* Noelle Vega [...] patient: Yes Procedure confirmed with physician and program support assistant: Yes Sign In: History and [...] indicated. Noelle Vega MD documented in this [facility] [place] History and physical note * Mechelle Burnett PA-C - 08/28/2022 8:42 AM [...] SUBCUTANEOUSLY ONCE A DAY Taking Yes BASAGLAR ESTRADAIKPEN U-100 INSULIN 100 unit/mL (3 mL) INJECT [...] fevers. Neuro: No history of TIA's, stroke, COMPONENT TECHNICIAN tumor, impaired sensorium, hemiplegia, paraplegia or quadraplegia. No neurological symptoms or problems. Respiratory: No history of current cough or dyspnea, or pneumonia in the past 6 weeks. No history of respiratory/pulmonary symptoms or problems. Cardiovascular: +HTN, HLD, POTS- no recent episodes Negative for Recent MT, Angina, Chest Pain, CHF, DVT/PE GI: No [...] 2022 TIME: 9:57 AM documented in this encounter[facility] [place]-10-2022 History of Present illness Narrative* ANASTASIIA Rodriguez [...] 28, 2022 7:11 AM documented in this encounterSelect [facility] [place]-07-2022 Miscellaneous Notes* Telephone Encounter - Kerry Madrigal - 08/25/2022 4:35 PM EDT Patient scheduled for surgery on 09/11 at [facility] for PERCUTANEOUS NEPHROLITHOTOMY [2747] - Kidney [...] Patient verbalized understanding. * Telephone Encounter - Kerry Freed Pss - 08/24/2022 3:52 PM EDT Called patient to review preop appts and instructions. Unable to leave message, no vm available. documented in this encounterSelect [facility] [place]-2022 Instructions* Patient Instructions* Mechelle Burnett PA-C - 08/24/2022 12:52 PM EDT PATIENT PREOPERATIVE INSTRUCTIONS Noelle Vega MD has scheduled you for your procedure at this surgery center: [facility]: [phone] --[address] [place] [address]. Please enter through the entrance closest to [...] Procedures: - YOU MUST HAVE A RESPONSIBLE CUSTOM BIKE BUILDER TAKE YOU HOME. A SIDE STITCHER OR ENVELOPE ADDRESSER CANNOT BE MADE A RESPONSIBLE CUSTOM BIKE BUILDER. - We recommend that a responsible person stays with you overnight to take care of you. - You cannot stay in a hotel alone after outpatient surgery. You will not be permitted to have yoursurgery, if you do not have someone to take care of you. If you already have an Advance Directive, please fax a copy to [phone] or email to for it to be [...] Mechelle Burnett PA-C documented in this encounterCleveland [id number] Miscellaneous Notes* Telephone Encounter - Saima Del Cid Ma - 08/16/2022 5:19 PM EDT Images from cd have been uploaded into patient's chart. I spoke with patient and he does not need the cd back. I am putting it in the admin office to be destroyed. documented in this encounterSelect [facility] [place]-23-2022 Instructions* Patient Instructions* Noelle Vega MD - [...] 3 hours. Patients are transferred to the [facility] after awakeningin the recovery room. A ureteral [...] video with more information on ureteral stents: [email or web address]://[email or web address] Video on PCNL: [email or web address] If you have any additional questions regarding this procedure, please reach out to our team. Warm regards, Your [facility] [place] Kid[facility] Stone Team documented in this encounterSelect [facility] [place]-23-2022 History of Present illness Narrative* Noelle Vega MD - 08/11/2022 11:00 AM EDT Images from the original note were not included. [facility] NEW PATIENT HISTORY AND PHYSICAL EXAM PATIENT INFO: Dat Lopez 62 year old REFERRING M.D.: Pelon Coles [address] [place] [address] PCP: No primary care provider on file. [...] Left NL, multiple stones. ESWL was performed. [facility]. Then URS x 2 and ureteral [...] Abdomen is Non-distended, soft, nontender. Musculoskeletal: Good senior software architect strength. Neurologic: Normal gait. Sensation grossly intact. [...] with URS. Plan for Sep 11 at [facility] The patient decided to proceed with the [...] Vega MD Associate Staff documented in this encounterSelect [facility] [place]-07-2022 NotePROCEDURE: XR HIP LT 2 3V W [...] by: GEMA OTTO Date: 2022-07-26 21:53[facility]04-26-2022 Hospital Discharge instructions Patient Education 03/14/2022 10:23:05 [...] With:Pelon COLES Address: [facility] [address] [place] [address]- Business (1) When: Unknown Comments:Office will call to schedule follow up [facility]04-25-2022 Hospital Discharge instructions Patient Education 03/13/2022 [...] Follow these instructions at home: Medicines Take opon-cia-hcpgkpo and prescription medicines only as told by [...] or the blood stops without treatment. Take xvva-ofe-syikeyy and prescription medicines only as told by your health care provider. Drink enough fluid to keep your urine clear or pale yellow. This information is not intended to replace advice given to you by your health care provider. Make sure you discuss any questions you have with your health care provider. Document Released: 11/05/2006 Document Revised: 03/31/2020 Document Reviewed: 12/08/2017 Extole Patient Education 2020 [employer]. Follow Up Care 03/13/2022 08:09:52 With:Pelon COLES MD, URL Address: [facility] [address], [place] [phone] When: Unknown [facility] evaluation + Plan note Future Appointments Appointment Date:03/14/2022 10:00:00 AM Scheduled Provider: Location:[facility] Appointment Type:Urology FT Appointment Date:05/05/2022 09:30:00 AM Scheduled Provider:Pelon COLES MD Location:[facility] Appointment Type:URO Office Visit [facility] evaluation + Plan note Future Appointments Appointment Date:05/05/2022 09:30:00 AM Scheduled Provider:Pelon COLES MD Location:[facility] Appointment Type:URO Office Visit Diagnostic Tests Pending * UroVysion Fish and Urine Cyto ([facility]) [facility] Future App[facility]ments Appointment Date:12/18/2022 02:30:00 PM Scheduled Provider:Pelon COLES MD Location:[facility] Appointment Type:URO Office Visit [facility] [place] Evaluation + Plan note Future Appointments Appointment Date:06/18/2023 09:45:00 AM Scheduled Provider:Pelon COLES MD Location:[facility] Appointment Type:URO Office Visit [facility] evaluation + Plan note Future Appointments Appointment Date:11/27/2023 03:30:00 PM Scheduled Provider:Pelon COLES MD [facility] Appointment Type:URO Procedure 30 min Appointment Date:12/14/2023 10:30:00 AM Scheduled Provider:Pelon COLES MD Location:[facility] Appointment Type:URO Office Visit General [facility] [place] Evaluation + Plan note Future Appointments Appointment Date:12/14/2023 10:30:00 AM Scheduled Provider:Pelon COLES MD Location:[facility] Appointment Type:URO Office Visit [facility] Evaluation + Plan note Future Appointments Appointment Date:12/14/2023 10:30:00 AM Scheduled Provider:Pelon COLES MD Location:[facility] Appointment Type:URO Office Visit Diagnostic Tests Pending * Prostate Histology ([facility]) [facility] Future App[facility]ments Appointment Date:12/19/2024 10:30:00 AM Scheduled Provider:Pelon COLES MD Location:[facility] Appointment Type:URO Office Visit Diagnostic Tests Pending * PSA Total 12/17/23 [facility] evaluation + Plan note Future Appointments Appointment Date:12/19/2024 10:30:00 AM Scheduled Provider:Pelon COLES MD Location:[facility] Appointment Type:URO Office Visit Diagnostic Tests Pending * Urine Culture [facility] Future Appointments Appointment Date:12/19/2024 10:30:00 AM Scheduled Provider:Pelon COLES MD Location:[facility] Appointment Type:URO Office Visit Diagnostic Tests Pending * Creatinine 05/05/24 [facility] evaluation + Plan note Future Appointments Appointment Date:06/23/2024 09:00:00 AM Scheduled Provider: Location:[facility] Appointment Type:URO Nurse Visit Appointment Date:07/07/2024 12:30:00 PM Scheduled Provider[facility]ES [facility] Office Visit Appointment Date:12/19/2024 10:30:00 AM Scheduled Provider:Pelon COLES MD Location:[facility] Appointment Type:URO Office Visit [facility] evaluation + Plan note Future Appointments Appointment Date:06/15/2025 10:30:00 AM Scheduled Provider:Pelon COLES MD Location:[facility] Appointment Type:URO Office Visit Diagnostic Tests Pending * PSA Total 12/15/24 [facility] evaluation + Plan note Future Appointments Appointment Date:11/16/2025 10:15:00 AM Scheduled Provider:Pelon COLES MD Location:[facility] Appointment Type:URO Office Visit Diagnostic Tests Pending * PSA Free & Total 05/18/25 [facility] evaluation + Plan note Future Appointments Appointment Date:11/16/2025 10:15:00 AM Scheduled Provider:Pelon COLES MD Location:[facility] Appointment Type:URO Office Visit Diagnostic Tests Pending * UroVysion Fish and Urine Cyto ([facility]) 05/18/25 [facility] Evaluation note* Diagnosis Screening for genitourinary condition- Primary Screening for other and unspecified genitourinary condition Calculus of kidney with calculus of ureter Calculus of kidney Staghorn calculus Calculus of kidney documented in this encounter [facility] note* Diagnosis Nephrolithiasis- Primary Calculus of kidney Secondary hyperparathyroidism of renal origin (HCC) Secondary hyperparathyroidism (of renal origin) Gross hematuria Gross hematuria Nephrolithiasis Calculus of kidney [facility] Diagnosis Pre-op evaluation- Primary Preoperative examination, [...] Calculus of kidney documented in this encounter [facility] note* Diagnosis Calculus of kidney with calculus of ureter Calculus of kidney Nephrolithiasis Calculus of kidney [facility]* Diagnosis Hyperkalemia- Primary Hyperpotassemia documented in [facility]* Diagnosis Nephrolithiasis- Primary Calculus of kidney Calculus of kidney with calculus of ureter Calculus of kidney documented [facility] noteNo InformationNort trueAnthem Other evaluation noteNortPerspecSys Other Evaluation noteNo assessment information available [facility] Work Phone: evaluation note* Diagnosis Onset Date Resolution Status [id number] acute Primary hypertension acute [id number] acute [facility] Work Phone: evaluation note* Diagnosis Onset Date Resolution Status Anemia [...] acute Lumbar spondylosis acute Primary hypertension acute [facility] Work Phone: Evaluation note* Diagnosis Onset Date Resolution Status Chronic kidney disease acute Lumbar spondylosis acute Primary hypertension acute Primary osteoarthritis of knee acute Type 2 diabetes mellitus with hyperglycemia acute Anemia acute Chronic kidney disease acute Lumbar spondylosis acute Primary hypertension acute Primary osteoarthritis of knee acute Type 2 diabetes mellitus with hyperglycemia acute [facility] Work Phone: evaluation note* Diagnosis Onset Date Resolution Status Anemia acute Chronic kidney disease acute Lumbar spondylosis acute Primary hypertension acute Primary osteoarthritis of knee acute Type 2 diabetes mellitus with hyperglycemia acute [facility] Work Phone: Evaluation note* Diagnosis Onset Date Resolution Status Admit Date Anemia acute September 30, 2024 11:21am Chronic kidney disease acute No vember 2023 11:21am Lumbar spondylosis acute Novemb er 2023 11:21am Primary hypertension acute Nove mber 2023 11:21am Primary osteoarthritis of knee acute September 30, 2024 11:21am Type 2 diabetes mellitus wit h hyperglycemia acute September 30 11:21am [facility] Work Phone: Evaluation note* Diagnosis Onset Date Resolution Status Admit Date Anemia acute January 26 11:03am Atypical small acinar proliferation of prostate acute January 26, 2025 11:03am Chronic kidney disease acute Ma rch 2024 11:03am Hyperlipidemia, mixed acute Mar 2024 11:03am Lumbar spondylosis acute January 26, 2025 11:03am Primary hypertension acute Michael h 2024 11:03am Primary osteoarthritis of knee acute January 26, 2025 11:03am Type 2 diabetes mellitus wit h diabetic polyneuropathy acute January 262024 11:03am Type 2 diabetes mellitus wit h hyperglycemia acute January 26, 2025 11:03am Wellness examination noneactive Michael h 2024 11:03am [facility] Work Phone: Evaluation note* Diagnosis Elevated prostate specific antigen (PSA)- Primary History of nephrolithiasis Personal history of urinary calculi BPH with obstruction/lower urinary tract symptoms Hypertrophy of prostate with urinary obstruction and other lower urinary tract symptoms (LUTS) Calculus of kidney Encounter for observation for other suspected diseases and conditions ruled out Prostate cancer screening Special screening for malignant neoplasm of prostate Gross hematuria Screening for genitourinary condition Screening for other and unspecified genitourinary condition Personal history of malignant neoplasm of bladder documented in this encounter [facility] general Narrative - Reported* Type Description Date [...] Surgical History COLONOSCOPY Hospitalization History see surgeries [facility] Other History general Narrative - Reported* Type [...] Surgical History COLONOSCOPY Hospitalization History see surgeries [facility] Other History general Narrative - ReportedNort trueAnthem Other Hospital course Narrative No data available for this section [facility] [employer] Hospital Discharge instructions No data available for this section [facility] [employer] progress note No data available for this section [facility] [place] reason for referral (narrative)* Reason *FU 02/13 Referral for low back pain Diagnosis 1 Lumbar spondylosis ( M47.816) Referral Organization [facility] Santy simon Referring Provider First Name Sp Referring Provider Last Name Epi Referring Provider Specialty Internal Me dicine Referred Organization [facility] Referred Provider Vandana Blount Referred Address [address] [place], [place],[address] Referred Provider Specialty Pain Medicin e Referral Priority Routine General Notes Patient requesting sil lucero for pain management. He had seen pain management for years but his provider moved. He would like to become established with local pain clinic Smita Prasad 02/06/2023 01:53:36 PM >received today Smita Prasad 02/06/2023 01:55:11 PM >attachments made, notes locked, referral faxed Clinical Notes This patient has chr onic low back pain. He has received benefit from previous injections. P: [phone] F: [id number] [facility] Other Reason for referral (narrative)No reason for referral [facility] Work [facility]: Summary Purpose Family History Relationship Condition Age at Onset Recorded Date/T jackie father Unknown Not Specified Unknown Relationship Condition Age at Onset Recorded Date/T jackie father Unknown mother Unknown Advance Directives Advance Directive Response Recorded Date/ Time Advance Directives No July 03, 2019 6:13am Advance Directive Response Recorded Date/ Time Advance Directives No July 03, 2019 5:13am Reason for Referral Specialty Diagnoses / Procedures Referred By Sunnyac t Referred To Contact Cardiology Diagnoses Nephrolithiasis Procedures CONSULT TO CARDIOLOGY OFFICE/OUTPATIENT [facility] 60-[place] [address] [place] [address] Referral ID Status Reason Start Date Expiration Date Visits Requested Visits Authorized [id number] Pending Review PCP Requested Referral 08/11/2022 08/11/2023 1 1 Specialty Diagnoses / Procedures Referred By Contac t Referred To Contact Diagnoses Nephrolithiasis Procedures REFER TO PACC - PRE ANESTHESIA CONSULTATION CLINIC OFFICE/OUTPATIENT [facility] 60-[place] [address] [place] [address] Referral ID Status Reason Start Date Expiration Date Visits Requested Visits Authorized [id number] Pending Review PCP Requested Referral 08/11/2022 08/11/2023 1 1 Specialty Diagnoses / Procedures Referred By Elena apple Referred To Contact CT IMAGING Diagnoses Calculus of kidney with calculus of ureter Procedures CT FLANK WO IVCON CT ABD & PELVIS W/[place] [address] [place] [address] Ct Imaging Referral ID Status Reason Start Date Expiration Date Visits Requested Visits Authorized [id number] Authorized Auto-Generat ed Referral 08/11/2022 09/10/2023 1 [...] Check Up worsening neuropathy Reason for Visit [id number] Primary hypertension [id number] Chief Complaint worsening neuropathy Wellness Amb Documentation [...] knee Type 2 diabetes mellitus with hyperglycemia Chief Complaint 4 month follow up flu shot Reason for Visit Anemia Chronic kidney disease Lumbar spondylosis Primary hypertension Primary osteoarthritis of knee Type 2 diabetes mellitus with hyperglycemia Chief Complaint Admit Date flu shot July 29, 2024 1:26pm CC Adult Risk Stratification September 1:43pm 4 month f/u September 30, 2024 11:21am Reason for Visit Admit Date Anemia September 30, 2024 11:21am Chronic kidney disease September 30 11:21am Lumbar spondylosis September 30, 2024 11:21am Primary hypertension September 30, 2024 11:21am Primary osteoarthritis of knee September 30, 2024 11:21am Type 2 diabetes mellitus with hyperglyce prince September 30, 2024 11:21am Chief Complaint Admit Date Wellness January 26, 2025 11: 03am Reason for Visit Admit Date Anemia January 26, 2025 11: 03am 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 January 26, 2025 11:03am Chronic kidney disease January 26, 2025 11:03am Hyperlipidemia, mixed January 26, 2025 1 1:03am Lumbar spondylosis January 26, 2025 11: 03am Primary hypertension January 26, 2025 11 :03am Primary osteoarthritis of knee January 11:03am Type 2 diabetes mellitus with diabetic p olyneuropathy January 26, 2025 11:03am Type 2 diabetes mellitus with hyperglyce prince January 26, 2025 11:03am Wellness examination January 26, 2025 11 :03am Chief Complaint Admit Date Wellness January 26, 2025 11: 03am fell 1.5 months ago April 21, 2025 11:29 am Reason for Visit Admit Date Anemia January 26, 2025 11: 03am 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 January 26, 2025 11:03am Chronic kidney disease January 26, 2025 11:03am Hyperlipidemia, mixed January 26, 2025 1 1:03am Lumbar spondylosis January 26, 2025 11: 03am Primary hypertension January 26, 2025 11 :03am Primary osteoarthritis of knee January 11:03am Type 2 diabetes mellitus with diabetic p olyneuropathy January 26, 2025 11:03am Type 2 diabetes mellitus with hyperglyce prince January 26, 2025 11:03am Wellness examination January 26, 2025 11 :03am Anemia April 21, 2025 11:29 am 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 April 21, 2025 11:29am Chronic kidney disease April 21, 2025 11 :29am Hyperlipidemia, mixed April 21, 2025 11: 29am Lumbar spondylosis April 21, 2025 11:29 am Primary hypertension April 21, 2025 11:2 9am Primary osteoarthritis of knee April 21, 2025 11:29am Type 2 diabetes mellitus with diabetic p olyneuropathy April 21, 2025 11:29am Type 2 diabetes mellitus with hyperglyce prince April 21, 2025 11:29am Chief Complaint Admit Date fell 1.5 months ago April 21, 2025 11:29 am G56.01 - Carpal tunnel syndrome, right u pper limb May 20, 2025 7:41am CONSULT DR EPI ULLOA CTS WITH EMG May 12:11pm Reason for Visit Admit Date Chronic kidney disease April 21, 2025 11 :29am Contusion of left buttock April 21, 2025 11:29am Lumbar spondylosis April 21, 2025 11:29 am Type 2 diabetes mellitus with diabetic p olyneuropathy April 21, 2025 11:29am Type 2 diabetes mellitus with hyperglyce prince April 21, 2025 11:29am Paresthesias in left hand April 21, 2025 11:29am Carpal tunnel syndrome, right May 05, 2025 11:38am Cervical radiculopathy May 05, 2025 1 1:38am Carpal tunnel syndrome, right May 20, 2025 12:11pm Osteoarthritis of basilar joint of thumb May 20, 2025 12:11pm Chief Complaint Admit Date fell 1.5 months ago April 21, 2025 11:29 am G56.01 - Carpal tunnel syndrome, right u pper limb May 20, 2025 7:41am CONSULT DR EIP ULLOA CTS WITH EMG May 12:11pm Right Carpal Tunnel Syndrome May 29, 2025 8:29am Chief Complaint Admit Date fell 1.5 months ago April 21, 2025 11:29 am G56.01 - Carpal tunnel syndrome, right u pper limb May 20, 2025 7:41am CONSULT DR EPI ULLOA CTS WITH EMG May 12:11pm Right Carpal Tunnel Syndrome May 29, 2025 8:29am 4 month f/u June 09, 2025 11:1 5am Reason for Visit Admit Date Chronic kidney disease April 21, 2025 11 :29am Lumbar spondylosis April 21, 2025 11:29 am Type 2 diabetes mellitus with diabetic p olyneuropathy April 21, 2025 11:29am Type 2 diabetes mellitus with hyperglyce prince April 21, 2025 11:29am Contusion of left buttock April 21, 2025 11:29am Paresthesias in left hand April 21, 2025 11:29am Carpal tunnel syndrome, right May 05, 2025 11:38am Cervical radiculopathy May 05, 2025 1 1:38am Carpal tunnel syndrome, right May 20, 2025 12:11pm Osteoarthritis of basilar joint of thumb May 20, 2025 12:11pm Anemia June 09, 2025 11:1 5am 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 June 09, 2025 11:15am Chronic kidney disease June 09, 2025 1 1:15am History of carpal tunnel surgery of righ t wrist June 09, 2025 11:15am Hyperlipidemia, mixed June 09, 2025 11 :15am Lumbar spondylosis June 09, 2025 11:1 5am Primary hypertension June 09, 2025 11: 15am Primary osteoarthritis of knee May 11:15am Type 2 diabetes mellitus with diabetic p olyneuropathy June 09, 2025 11:15am Type 2 diabetes mellitus with hyperglyce prince June 09, 2025 11:15am Chief Complaint Admit Date fell 1.5 months ago April 21, 2025 11:29 am G56.01 - Carpal tunnel syndrome, right u pper limb May 20, 2025 7:41am CONSULT DR CHOWDARY RT CTS WITH EMG May 12:11pm Right Carpal Tunnel Syndrome May 29, 2025 8:29am 4 month f/u June 09, 2025 11:1 5am 12 days post op June 10, 2025 9:51 am Reason for Visit Admit Date Chronic kidney disease April 21, 2025 11 :29am Lumbar spondylosis April 21, 2025 11:29 am Type 2 diabetes mellitus with diabetic p olyneuropathy April 21, 2025 11:29am Type 2 diabetes mellitus with hyperglyce prince April 21, 2025 11:29am Contusion of left buttock Sofya 3rd, 2025 11:29am Paresthesias in left hand April 21, 2025 11:29am Carpal tunnel syndrome, right May 05, 2025 11:38am Cervical radiculopathy May 05, 2025 1 1:38am Carpal tunnel syndrome, right May 20, 2025 12:11pm Osteoarthritis of basilar joint of thumb May 20, 2025 12:11pm Anemia June 09, 2025 11:1 5am 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 June 09, 2025 11:15am Chronic kidney disease June 09, 2025 1 1:15am History of carpal tunnel surgery of righ t wrist June 09, 2025 11:15am Hyperlipidemia, mixed June 09, 2025 11 :15am Lumbar spondylosis June 09, 2025 11:1 5am Primary hypertension June 09, 2025 11: 15am Primary osteoarthritis of knee May 11:15am Type 2 diabetes mellitus with diabetic p olyneuropathy June 09, 2025 11:15am Type 2 diabetes mellitus with hyperglyce prince June 09, 2025 11:15am Carpal tunnel syndrome, right June 10, 2025 9:51am Osteoarthritis of basilar joint of thumb June 10, 2025 9:51am Other specified postprocedural states Ju ly 2024 9:51am Additional Source Comments (unrecognized sect ion and content) No Status Records FoundNo Status Records FoundNo Status Records FoundNo Status Records FoundNo Status Records FoundNo Status Records FoundNo Status Records FoundNo Status Records FoundNo Status Records FoundNo Status Records FoundNo Status Records Found INFORMATION SOURCE (unrecogn ized section and content) DATE CREATED AUTHOR 06/05/2019 [facility] DATE CREATED AUTHOR AUTHOR'S ORGANIZ ATION 01/03/2022 [facility] DATE CREATED AUTHOR AUTHOR'S ORGANIZ ATION 04/04/2023 [facility] DATE CREATED AUTHOR AUTHOR'S ORGANIZ ATION 05/08/2024 [facility] DATE CREATED AUTHOR AUTHOR'S ORGANIZ ATION 04/04/2025 [employer] [facility] DATE CREATED AUTHOR AUTHOR'S ORGANIZ ATION 05/20/2025 [facility] DATE CREATED AUTHOR AUTHOR'S ORGANIZ ATION 05/31/2025 [facility] DATE CREATED AUTHOR AUTHOR'S ORGANIZ ATION 06/06/2025 [facility] DATE CREATED AUTHOR AUTHOR'S ORGANIZ ATION 06/24/2025 [facility] DATE CREATED AUTHOR AUTHOR'S ORGANIZ ATION 06/27/2025 [facility] DATE CREATED AUTHOR AUTHOR'S ORGANIZ ATION 06/28/2025 [facility] (unrecognized sect ion and content) Team Status: Active Member Role Status Dates Sp Chowdary DO Primary Care Provider Active Team Status: Inactive Member Role Status Dates Sp Chowdary DO Primary Care Provide r, Attending Provider Active Start: July 29, 2024 End: July 29, 2024 Team Status: Active Member Role Status Dates Sp Chowdary DO Primary Care Provide r, Attending Provider Active Start: September 24, 2024 Team Status: Inactive Member Role Status Dates Sp Chowdary DO Primary Care Provide r, Attending Provider Active Start: September 30, 2024 End: September 30, 2024 Team Status: Active Member Role Status Dates Sp Chowdary DO Primary Care Provider Active Start: May 12, 2024 Pelon Coles MD Attending Provider Active St art: May 12, 2024 Team Status: Active Member Role Status Dates Sp Chowdary DO Primary Care Provider Active Start: May 23, 2024 Kandi Cordero PA-C Attending Provider Active Start: May 23, 2024 Team Status: Inactive Member Role Status Dates Sp Chowdary DO Primary Care Provide r, Attending Provider Active Start: May 27, 2024 End: May 27, 2024 Team Status: Active Member Role Status Dates Sp Chowdary DO Primary Care Provider Active Start: June 10, 2024 Pelon Coles MD Attending Provider Active St art: June 10, 2024 Orthopedic Technician Relationship Specialty Start Date End Date Epi Sp Luis Antonio, DO [address] [place] [address] PCP - General Internal Medicine 09/07/22 Orthopedic Technician Relationship Specialty Start Date End Date Sp Chowdary, DO [address] [place] [address] PCP - General Internal Medicine 09/07/22 Team Status: Inactive Member Role Status Dates Sp Ball , DO Primary Care Provider Active Pelon Coles MD Attending Provider Active Team Status: Inactive Member Role Status Dates Sp Chowdary , DO Attending Provider Active Sta rt: October [...] Sp Chowdary DO Primary Care Provider Active Start: February 01, 2024 YVETTE García Attending Provider Active St art: February 01, 2024 Team Status: Active Member Role Status Adrianna Chowdary DO Primary Care Provide r, Attending Provider Active Start: February 22, 2024 Team Status: Inactive Member Role Status Adrianna Chowdary DO Primary Care Provide r, Attending Provider Active Start: March 25, 2024 End: March 25, 2024 Team Status: Inactive Member Role Status Dates Sp Chowdary DO Primary Care Provide r, Attending Provider Active Start: January 26, 2025 End: January 26, 2025 Team Status: Active Member Role Status Adrianna Chowdary DO Primary Care Provide r, Attending Provider Active Start: February 11, 2025 Team Status: Inactive Member Role Status Adrianna Chowdary DO Primary Care Provide r, Attending Provider Active Start: April 21, 2025 End: April 21, 2025 Team Status: Inactive Member Role Status Dates Sp Chowdary DO Primary Care Provider Active Start: April 21, 2025 End: April 21, 2025 Sp Chowdary , DO Attending Provider Active Sta rt: April 21, 2025 End: April 21, 2025 Team Status: Inactive Member Role Status Dates Sp Chowdary DO Primary Care Provider Active Start: May 05, 2025 End: May 05, 2025 Sam Escoto DO Attending Provider Active Start: May 05, 2025 End: May 05, 2025 Team Status: Active Member Role Status Dates Sp Chowdary DO Primary Care Provider Active Start: May 11, 2025 Pelon Coles MD Attending Provider Active St art: May 11, 2025 Team Status: Active Member Role Status Dates Sp Chowdary DO Primary Care Provider Active Start: May 20, 2025 Shawn Denney , DO Attending Provider Active S tart: May 20, 2025 Team Status: Inactive Member Role Status Dates Sp Chowdary DO Primary Care Provider Active Start: May 20, 2025 End: May 20, 2025 Shawn Denney , DO Attending Provider Active S tart: May 20, 2025 End: May 20, 2025 Team Status: Active Member Role Status Dates Sp Chowdary DO Primary Care Provider Active Start: May 29, 2025 Shawn Denney , DO Attending Provider Active S tart: May 29, 2025 Shawn Denney , DO Other Provider Active Start : May 29, 2025 Orthopedic Technician Relationship Specialty [place] [address] [place] [id number] PCP - General Internal Medicine 09/07/22 Team Status: Inactive Member Role Status Dates Sp Epi DO Primary Care Provider Active Start: June 09, 2025 End: June 09, 2025 Sp Chowdary DO Attending Provider Active Sta rt: June 09, 2025 End: June 09, 2025 Team Status: Inactive Member Role Status Dates Sp Chowdary DO Primary Care Provider Active Start: June 10, 2025 End: June 10, 2025 Shawn Denney , DO Attending Provider Active S tart: June 10, 2025 End: June 10, 2025 Orthopedic Technician Relationship Specialty [place] [address] [place] [id number] PCP - General Internal Medicine 09/07/22 Source Comments (unrecognize d section and content) In the event this informatio n is protected by the Federal Confidentiality of Alcohol and Drug Abuse Patient Records regulations: The Federal rules restrict any use of the information to criminally investigate or prosecute any alcohol or drug abuse patient.[facility] the event this information is protected by the Federal Confidentiality of Alcohol and Drug Abuse Patient Records regulations: The Federal rules restrict any use of the information to criminally investigate or prosecute any alcohol or drug abuse patient.[facility] [place] the event this information is protected by the Federal Confidentiality of Alcohol and Drug Abuse Patient Records regulations: The Federal rules restrict any use of the information to criminally investigate or prosecute any alcohol or drug abuse patient.[facility] [place] the event this information is protected by the Federal Confidentiality of Alcohol and Drug Abuse Patient Records regulations: The Federal rules restrict any use of the information to criminally investigate or prosecute any alcohol or drug abuse patient.[facility] [place] the event this information is protected by the Federal Confidentiality of Alcohol and Drug Abuse Patient Records regulations: The Federal rules restrict any use of the information to criminally investigate or prosecute any alcohol or drug abuse patient.[facility] [place] the event this information is protected by the Federal Confidentiality of Alcohol and Drug Abuse Patient Records regulations: The Federal rules restrict any use of the information to criminally investigate or prosecute any alcohol or drug abuse patient.[facility] [place] the event this information is protected by the Federal Confidentiality of Alcohol and Drug Abuse Patient Records regulations: The Federal rules restrict any use of the information to criminally investigate or prosecute any alcohol or drug abuse patient.[facility] [place] the event this information is protected by the Federal Confidentiality of Alcohol and Drug Abuse Patient Records regulations: The Federal rules restrict any use of the information to criminally investigate or prosecute any alcohol or drug abuse patient.[facility] [place] the event this information is protected by the Federal Confidentiality of Alcohol and Drug Abuse Patient Records regulations: The Federal rules restrict any use of the information to criminally investigate or prosecute any alcohol or drug abuse patient.[facility] [place] the event this information is protected by the Federal Confidentiality of Alcohol and Drug Abuse Patient Records regulations: The Federal rules restrict any use of the information to criminally investigate or prosecute any alcohol or drug abuse patient.[facility] Reason for Visit (unrecogniz ed section and content) Reason Comments New Patient Kidney stones Reason Comments Other CD from [facility] XR KUB Reason Comments Schedule Surgery Specialty Diagnoses / Procedures Referred By Elena apple Referred To Contact Diagnoses Nephrolithiasis Procedures REFER TO PACC - PRE ANESTHESIA CONSULTATION CLINIC OFFICE/OUTPATIENT NEW HIGH MDM 60-[place] [address] [place] [address] Referral ID Status Reason Start Date Expiration Date Visits Requested Visits Authorized [id number] Pending Review PCP Requested Referral 08/11/2022 08/11/2023 1 1 Specialty Diagnoses / Procedures Referred By Elena apple Referred To Contact CT IMAGING Diagnoses Calculus of kidney with calculus of ureter Procedures CT FLANK WO IVCON CT ABD & PEL[place] [address] [place] [address] Ct Imaging Referral ID Status Reason Start Date Expiration Date V isits Requested Visits Authorized [id number] Closed Auto-Generate d Referral 08/11/2022 09/10/2023 1 1 Reason Comments Cystoscopy-1 Stent Extraction Reason Comments Established Patient Follow Up Reason Comments Patient Question Goals (unrecognized section and content) Goals may [...] BE BASED ON THE PRIMARY CLINICAL RECORDS. [facility]. provides no warranty or guarantee of the accuracy or completeness of information in this document.
== END 2025-07-01 12:14 | disposition home or self-care (01) ==
LOC: LAB 12:14
PROVIDERS: PCP Internal Medicine; Visit Provider Urology
DX: Z12.5 Encounter for screening for malignant neoplasm of prostate (principal); R97.20 Elevated prostate specific antigen [PSA]
CPT/HCPCS: 36415; G0103